=== PATIENT | female | born 1955 | race Caucasian/White ===

== ENCOUNTER 2019-09-11 11:35 | Outpatient (CLI) | payer MEDICAID, SELFPAY ==
[2019-09-11 13:03] LABS: INR 3.6 (0.9-1.1); Prothrombin Time 35.1 sec (9.3-11.0)
== END 2019-09-11 11:55 ==
PROVIDERS: PCP Family Medicine; Visit Provider Family Medicine
DX: I26.99 Other pulmonary embolism without acute cor pulmonale (principal); Z79.01 Long term (current) use of anticoagulants
CPT/HCPCS: 36415; 85610

== ENCOUNTER 2019-09-21 10:56 | Outpatient (CLI) | payer MEDICAID, SELFPAY ==
[2019-09-21 12:05] LABS: INR 1.7 (0.9-1.1); Prothrombin Time 17.1 sec (9.3-11.0)
== END 2019-09-21 11:16 ==
PROVIDERS: PCP Family Medicine; Visit Provider Family Medicine
DX: I26.99 Other pulmonary embolism without acute cor pulmonale (principal); Z79.01 Long term (current) use of anticoagulants
CPT/HCPCS: 36415; 85610

== ENCOUNTER 2019-09-28 12:50 | Outpatient (CLI) | payer MEDICAID, SELFPAY ==
[2019-09-28 14:04] LABS: INR 2.1 (0.9-1.1); Prothrombin Time 20.4 sec (9.3-11.0)
== END 2019-09-28 13:10 ==
PROVIDERS: PCP Family Medicine; Visit Provider Family Medicine
DX: I26.99 Other pulmonary embolism without acute cor pulmonale (principal); Z79.01 Long term (current) use of anticoagulants
CPT/HCPCS: 36415; 85610

== ENCOUNTER 2019-10-05 12:48 | Outpatient (CLI) | payer MEDICAID, SELFPAY ==
[2019-10-05 13:46] LABS: INR 3.6 (0.9-1.1); Prothrombin Time 34.9 sec (9.3-11.0)
== END 2019-10-05 13:08 ==
PROVIDERS: PCP Family Medicine; Visit Provider Family Medicine
DX: I26.99 Other pulmonary embolism without acute cor pulmonale (principal); Z79.01 Long term (current) use of anticoagulants
CPT/HCPCS: 36415; 85610

== ENCOUNTER 2019-10-12 11:08 | Outpatient (CLI) | payer MEDICAID, SELFPAY ==
[2019-10-12 12:17] LABS: INR 3.5 (0.9-1.1); Prothrombin Time 33.9 sec (9.3-11.0)
== END 2019-10-12 11:28 ==
PROVIDERS: PCP Family Medicine; Visit Provider Family Medicine
DX: I26.99 Other pulmonary embolism without acute cor pulmonale (principal); Z79.01 Long term (current) use of anticoagulants
CPT/HCPCS: 36415; 85610

== ENCOUNTER 2019-10-21 00:51 | Outpatient (CLI) | payer MEDICAID, SELFPAY ==
--- NOTE | 2019-10-21 12:09 | DI.RAD_ITS ---
EXAM: XR CERVICAL SPINE COMP 4-5V INDICATION: NECK PAIN M54.2. COMPARISON: No exams were available for comparison TECHNIQUE: 2D digital imaging was performed. FINDINGS: There has been previous posterior fusion at C1-[address] There is mild narrowing of the C2-3 disc space. There is moderate to severe narrowing of the C3-4 disc space and severe narrowing of the C4-5 and C5-6 disc spaces. C6-7 is unremarkable. There is some straightening of the normal c ervical lordosis secondary to degenerative changes. Mild to moderate right-sided neural foraminal na rrowing is seen from C3-4 through C6-7. Mild neural foraminal narrowing is seen on the left at C4-5. IMPRESSION: Degenerative changes, greatest at C4-5.
== END 2019-10-21 01:11 ==
PROVIDERS: PCP Family Medicine; Visit Provider Family Medicine
DX: M54.2 Cervicalgia (principal); Z98.1 Arthrodesis status; M50.321 Other cervical disc degeneration at C4-C5 level
CPT/HCPCS: 72050

== ENCOUNTER 2019-11-03 12:32 | Outpatient (CLI) | payer MEDICAID, SELFPAY ==
[2019-11-03 13:28] LABS: INR 2.6 (0.9-1.1); Prothrombin Time 25.3 sec (9.3-11.0)
== END 2019-11-03 12:52 ==
PROVIDERS: PCP Family Medicine; Visit Provider Family Medicine
DX: I26.99 Other pulmonary embolism without acute cor pulmonale (principal); Z79.01 Long term (current) use of anticoagulants
CPT/HCPCS: 36415; 85610

== ENCOUNTER 2019-11-20 12:31 | Outpatient (CLI) | payer MEDICAID, SELFPAY ==
[2019-11-20 13:25] LABS: Abs Immature Grans 0.03 k/cumm (0.0-0.09); Absolute Basophil Count 0.04 k/cumm (0.0-0.2); Absolute Eosinophil Count 0.09 k/cumm (0.0-0.7); Absolute Lymphocyte Count 1.52 k/cumm (1.2-3.4); Absolute Monocyte Count 1.04 k/cumm (0.11-0.7); Absolute Neutrophil Count 6.14 k/cumm (1.2-6.7); Basophils % 0.5; HCT 36.3 % (36.0-46.0); HGB 11.5 g/dL (12.0-15.5); Immature Grans % 0.3 %; Lymphocytes % 17.2; Mean Corp. HGB Concentration 31.7 g/dL (32.0-36.0); Mean Corpuscular Hemoglobin 32.7 pg (27.0-33.0); Mean Corpuscular Volume 103.1 fL (80-95); Mean Platelet Volume 9.2 fL (8.0-11.0); Monocytes % 11.7; Neutrophils % 69.3; Platelet Count 385 x1000/uL (130-400); RBC 3.52 m/cumm (4.00-5.20); RBC Distribution Width 13.3 % (11.7-14.6); White Blood Cell Count 8.86 k/cumm (4.4-10.8)
[2019-11-20 13:46] LABS: Prothrombin Time 19.9 sec (9.3-11.0)
[2019-11-20 13:49] LABS: Bilirubin Small (Negative); Blood Negative (Negative); Clarity Sl Cloudy (Clear); Glucose Negative (Negative); Ketones Negative (Negative); Leukocyte Esterase Trace (Negative); Nitrite Negative (Negative); Specific Gravity >= 1.030 (1.005-1.025); Urobilinogen 0.2 EU/dL (Up TO 0.2); pH 5.5 (5-8)
[2019-11-20 14:10] LABS: ALT 52 U/L (14-59); AST 32 U/L (15-37); Albumin 4.2 g/dL (3.4-5.0); Alkaline Phosphatase 113 U/L (46-116); Anion Gap 12.2 mmol/L (3-11); BUN 14 mg/dL (7-18); Bilirubin, Total 0.5 mg/dL (0.2-1.0); CO2 30.8 mmol/L (21.0-32.0); Calcium 9.5 mg/dL (8.5-10.1); Calculated LDL 235 mg/dL; Chloride 99 mmol/L (98-107); Cholesterol 343 mg/dL (<200); Estimated GFR 50.33 (mL/min/1.73m2); Glucose 83 mg/dL (74-106); HDL Cholesterol 78 mg/dL (40-60); Potassium 3.8 mmol/L (3.5-5.1); Sodium 142 mmol/L (136-145); TSH 5.38 uIU/mL (0.36-3.74); Total Protein 8.1 g/dL (6.4-8.2); Triglyceride 152 mg/dL (<150)
[2019-11-20 14:37] LABS: Epithelial Cells Few HPF (Negative); RBC Negative HPF (0-2)
[2019-11-20 14:38] LABS: Bacteria Few HPF (Negative); C & S Indicated? Yes; Casts Negative LPF (Negative); Mucus Negative (Negative); Other Cells Few Renal (Negative)
== END 2019-11-20 12:51 ==
PROVIDERS: PCP Family Medicine; Visit Provider Family Medicine
DX: E78.5 Hyperlipidemia, unspecified (principal); E03.9 Hypothyroidism, unspecified; M06.9 Rheumatoid arthritis, unspecified; I26.99 Other pulmonary embolism without acute cor pulmonale; Z79.01 Long term (current) use of anticoagulants
CPT/HCPCS: 36415; 80053; 80061; 81003; 81015; 84443; 85025; 85610; 87086

== ENCOUNTER 2019-12-02 10:59 | Outpatient (CLI) | payer MEDICAID, SELFPAY ==
[2019-12-02 11:38] LABS: INR 2.7 (0.9-1.1); Prothrombin Time 26.3 sec (9.3-11.0)
[2019-12-02 11:48] LABS: Bilirubin Negative (Negative); Blood Negative (Negative); Clarity Clear (Clear); Glucose Negative (Negative); Ketones Negative (Negative); Leukocyte Esterase Negative (Negative); Nitrite Negative (Negative); Specific Gravity >= 1.030 (1.005-1.025); Urobilinogen 0.2 EU/dL (Up TO 0.2)
[2019-12-02 12:44] LABS: Folate 18.5 ng/mL (8.6-20.0); Vitamin B12 476 pg/mL (193-986)
== END 2019-12-02 11:19 ==
PROVIDERS: PCP Family Medicine; Visit Provider Family Medicine
DX: I26.99 Other pulmonary embolism without acute cor pulmonale (principal); Z79.01 Long term (current) use of anticoagulants; N39.0 Urinary tract infection, site not specified; D75.89 Other specified diseases of blood and blood-forming organs
CPT/HCPCS: 36415; 81003; 82607; 82746; 85610

== ENCOUNTER 2019-12-16 11:48 | Outpatient (CLI) | payer MEDICAID, SELFPAY ==
[2019-12-16 12:53] LABS: INR 2.2 (0.9-1.1); Prothrombin Time 21.9 sec (9.3-11.0)
== END 2019-12-16 12:08 ==
PROVIDERS: PCP Family Medicine; Visit Provider Family Medicine
DX: I26.99 Other pulmonary embolism without acute cor pulmonale (principal); Z79.01 Long term (current) use of anticoagulants
CPT/HCPCS: 36415; 85610

== ENCOUNTER 2020-01-06 02:24 | Outpatient (CLI) | payer MEDICAID, SELFPAY ==
--- NOTE | 2020-01-06 | DI.RAD_ITS ---
EXAM: XR LUMBAR SPINE COMPLETE INDICATION: LOW BACK PAIN M54.5. COMPARISON: No exams were available for comparison TECHNIQUE: 2D digital imaging was performed. FINDINGS: There is normal alignment of the lumbar spine. No spondylolysis or spondylolisthesis is present. Th ere are endplate osteophytes seen at multiple levels of the lumbar spine. There are degenerative ryder nges of the facets seen in the lower lumbar spine. No acute fracture or subluxation is seen. IMPRESSION: [id number] degenerative changes in the lumbar spine.
[2020-01-06 10:38] LABS: INR 2.8 (0.9-1.1); Prothrombin Time 27.7 sec (9.3-11.0)
[2020-01-06 11:40] LABS: Folate 19.7 ng/mL (8.6-20.0); TSH 1.38 uIU/mL (0.36-3.74); Vitamin B12 548 pg/mL (193-986)
== END 2020-01-06 02:44 ==
PROVIDERS: PCP Family Medicine; Visit Provider Family Medicine
DX: M54.5 Low back pain (principal); M47.817 Spondylosis without myelopathy or radiculopathy, lumbosacral region; M25.78 Osteophyte, vertebrae; D75.89 Other specified diseases of blood and blood-forming organs; I26.99 Other pulmonary embolism without acute cor pulmonale
CPT/HCPCS: 36415; 72110; 82607; 82746; 84443; 85610

== ENCOUNTER 2020-02-03 02:50 | Outpatient (CLI) | payer MEDICAID, SELFPAY ==
[2020-02-03 12:02] LABS: INR 2.6 (0.9-1.1); Prothrombin Time 25.8 sec (9.3-11.0)
== END 2020-02-03 03:10 ==
PROVIDERS: PCP Family Medicine; Visit Provider Family Medicine
DX: I26.99 Other pulmonary embolism without acute cor pulmonale (principal)
CPT/HCPCS: 36415; 85610

== ENCOUNTER 2020-02-24 01:05 | Outpatient (CLI) | payer MEDICAID, SELFPAY ==
[2020-02-24 11:54] LABS: INR 2.6 (0.9-1.1); Prothrombin Time 25.6 sec (9.3-11.0)
== END 2020-02-24 01:25 ==
PROVIDERS: PCP Family Medicine; Visit Provider Family Medicine
DX: I26.99 Other pulmonary embolism without acute cor pulmonale (principal); Z79.01 Long term (current) use of anticoagulants
CPT/HCPCS: 36415; 85610

== ENCOUNTER 2020-03-25 03:11 | Outpatient (CLI) | payer MEDICAID, SELFPAY ==
[2020-03-25 11:15] LABS: INR 2.4 (0.9-1.1); Prothrombin Time 23.3 sec (9.3-11.0)
== END 2020-03-25 03:31 ==
PROVIDERS: PCP Family Medicine; Visit Provider Family Medicine
DX: I26.99 Other pulmonary embolism without acute cor pulmonale (principal); Z79.01 Long term (current) use of anticoagulants
CPT/HCPCS: 36415; 85610

== ENCOUNTER 2020-04-06 01:00 | Outpatient (CLI) | payer MEDICAID, SELFPAY ==
[2020-04-06 11:12] LABS: Prothrombin Time 31.7 sec (9.3-11.0)
[2020-04-06 11:17] LABS: INR 3.2 (0.9-1.1)
== END 2020-04-06 01:20 ==
PROVIDERS: PCP Family Medicine; Visit Provider Family Medicine
DX: I26.99 Other pulmonary embolism without acute cor pulmonale (principal); Z79.01 Long term (current) use of anticoagulants
CPT/HCPCS: 36415; 85610

== ENCOUNTER 2020-04-18 01:39 | Outpatient (CLI) | payer MEDICAID, SELFPAY ==
--- NOTE | 2020-04-18 11:25 | DI.MAMMO_ITS ---
EXAM: MG MAMMO SCREENING CLINICAL HISTORY: SCREENING, Z12.31 TECHNIQUE: Mammograms were interpreted according to the usual protocol including computer analysis w [employer] CAD system, tomosynthesis and C-view imaging. COMPARISON: FINDINGS: The breasts are heterogeneously dense. No dominant mass or clumped microcalcification is identified in either breast. Current examination is compared with previous examinations including February 2019 an d there has been no gross interval change in appearance comparison the previous studies. IMPRESSION: No specific evidence of malignancy at this time. Routine screening examinations are suggested at yea rly intervals due to the family history of breast carcinoma. BI-RADS Cat 1 - Negative: Breast Density - Category C - Heterogeneously dense:
== END 2020-04-18 01:59 ==
PROVIDERS: PCP Family Medicine; Visit Provider Family Medicine
DX: Z12.31 Encounter for screening mammogram for malignant neoplasm of breast (principal); Z80.3 Family history of malignant neoplasm of breast
CPT/HCPCS: 77063; 77067

== ENCOUNTER 2020-04-18 03:03 | Outpatient (CLI) | payer MEDICAID, SELFPAY ==
[2020-04-18 11:59] LABS: INR 2.9 (0.9-1.1); Prothrombin Time 28.1 sec (9.3-11.0)
[2020-04-18 15:12] LABS: *AMPHETAMINES SCREEN URINE Negative (Negative); *BARBITURATES SCREEN URINE Negative (Negative); *BENZODIAZEPINES SCREEN URINE Negative (Negative); Cannabinoids THC Negative (Negative); Cocaine Screen,Urine Negative (Negative); METHADONE URINE SCREEN POSITIVE (Negative); OPIATES URINE SCREEN Negative (Negative)
[2020-04-18 15:14] LABS: Tricyclic Antidepressants POSITIVE (Negative)
== END 2020-04-18 03:23 ==
PROVIDERS: PCP Family Medicine; Visit Provider Family Medicine
DX: I26.99 Other pulmonary embolism without acute cor pulmonale (principal); Z79.01 Long term (current) use of anticoagulants; Z79.891 Long term (current) use of opiate analgesic; M25.519 Pain in unspecified shoulder
CPT/HCPCS: 36415; 80307; 85610

== ENCOUNTER 2020-05-11 08:39 | Emergency (ER) | payer MEDICAID, SELFPAY ==
[2020-05-11] VITALS (21 sets, daily range): BP systolic 126–164; BP diastolic 64–85; PULSE 69–120; RESP 10–20; TEMP 36.6–36.9; O2SAT 95–100
--- NOTE | 2020-05-11 08:51 | DI.CT_ITS ---
EXAM: CT HEAD CERV SPINE FACIAL WO CLINICAL HISTORY: fall, head strike, on blood thinners TECHNIQUE: COMPARISON: No exams were available for comparison FINDINGS: Noncontrast cranial CT was performed. There is an apparent large extracranial hematoma over the righ t frontoparietal region.. There is no calvarial fracture. There is no evidence of acute intracrania l hemorrhage, mass effect, midline shift. Temporal bone structures appear intact. Visualized [place] sinuses and mastoid air cells appear clear. No orbital abnormality seen. CT examination cervical spine was performed lies in multi slice acquisition and multiplanar reconstru ction. There is fixation at the C1-2 level posteriorly and there is a fused odontoid with C1 which a ppears chronic. There is no evidence of acute fracture or dislocation. Significant cervical spine d egenerative changes are noted particularly in the mid cervical region. Tracheolaryngeal structures a ppear intact. No gross cervical mass or adenopathy seen. CT examination of the facial region was also performed utilizing noncontrast multi slice acquisition and multiplanar reconstruction. No facial fracture identified. Mandible appears intact. Orbital st ructures appear intact. IMPRESSION: No evidence of acute intracranial injury. No evidence of acute cervical spine fracture or dislocation. No evidence of acute facial fracture.
--- NOTE | 2020-05-11 09:15 | DI.RAD_ITS ---
EXAM: XR HAND LT COMPLETE CLINICAL HISTORY: pain,fall TECHNIQUE: COMPARISON: No exams were available for comparison FINDINGS: Three views were obtained. There are severe degenerative changes of the carpus. There is subluxatio n of the proximal phalanges at the MCP joints presumably chronic. There is no evidence of acute frac ture. IMPRESSION:
--- NOTE | 2020-05-11 09:15 | DI.RAD_ITS ---
EXAM: XR CLAVICLE RT CLINICAL HISTORY: pain, fall TECHNIQUE: COMPARISON: No exams were available for comparison FINDINGS: Two views were obtained. There is humeral head prosthesis in position with superior subluxation the humeral which abuts the acromion. There are degenerative changes of the AC joint. No clavicular fra cture is seen. IMPRESSION:
--- NOTE | 2020-05-11 09:22 | W.ED.GENAD ---
Discharge Plan Disposition Patient Disposition: HOME Condition: Stable Discharge Details Chief Complaint: HeadInjury Clinical Impression: Head injury, Abrasion of face, Contusion of multiple sites Primary Care Provider: Curt Cassidy ED Provider: Lisa Han Home Meds and New Rx's Prescriptions: Continued cyclobenzaprine 10 MG tablet 10 mg PO TID PRN PRNRF: 0 doxepin 50 MG capsule 50 mg PO DIRECTED PRNRF: 0 atorvastatin [Lipitor] 20 MG tablet 20 mg PO QPM RF: 0 methadone 10 MG tablet 20 mg PO HS RF: 0 prednisone 5 MG tablet 7.5 mg PO DAILY RF: 0 leflunomide [Arava] 20 MG tablet 20 mg PO DAILY RF: 0 calcium carbonate [Tums Ultra] 400 MG tablet,chewable 800 mg PO TID RF: 0 diphenhydramine HCl 25 MG capsule 25 mg PO Q4H PRN PRNRF: 0 warfarin 5 MG tablet 5 - 10 mg PO DIRECTED RF: 0 gabapentin 300 MG capsule 600 mg PO TID RF: 0 ergocalciferol (vitamin D2) [Vitamin D2] 50,000 UNITS capsule 50,000 units PO DIRECTED RF: 0 levothyroxine [Synthroid] 112 MCG tablet 175 mcg PO DAILY RF: 0 risedronate [Actonel] 35 MG tablet 35 mg PO DIRECTED RF: 0 multivitamin Tablet 1 tab PO DAILY RF: 0 ipratropium-albuterol 0.5 mg-3 mg(2.5 mg base)/3 mL Solution For Nebulization 3 ml INHALATION Q4H PRNRF: 0 amlodipine 2.5 mg Tablet 2.5 mg PO DAILY RF: 0 acyclovir 800 mg Tablet 800 mg PO DAILY RF: 0 bumetanide 0.5 mg Tablet 0.5 mg PO DAILY RF: 0 docusate sodium [Colace] 100 mg Capsule 200 mg PO DAILY RF: 0 Lactobacillus acidophilus Capsule 1,000 mmu cells PO DAILY RF: 0 albuterol sulfate [ProAir HFA] 90 mcg/actuation Hfa Aerosol Inhaler 2 puff INHALATION 6XD RF: 0 losartan 100 mg Tablet 100 mg PO DAILY RF: 0 Saccharomyces boulardii [Florastor] 250 mg Capsule 250 mg PO BID RF: 0 budesonide-formoterol [Symbicort] 160-4.5 mcg/actuation Hfa Aerosol Inhaler 1 puff INHALATION BID RF: 0 naloxone 4 mg/actuation Sheridan,Non-Aerosol 4 mg INTRANASAL Q2-3M PRNRF: 0 multivit with min-folic acid 400 mcg Tablet Extended Release 1 mcg PO RF: 0 Discharge Instructions Instructions: Head Injury (ED), Contusion in Adults (ED) Additional Instructions: Rest activities as tolerated. Please use your walker at home for at least 1 week as you do have a head injury and I would like you to be as stable as possible when ambulating. Ice to your scalp and cheek for swelling. Consider ice to your shoulder and left hand if needed for swelling Follow-up with your primary care doctor within 1 week for reevaluation after your fall. Your INR today is 2.8. That is normal when taking Coumadin. Return for any worsening, concerns or alarming symptoms sooner if needed Discharge Data Discharge Date/Time-TO BE ENTERED AT DEPARTURE: 05/11/20 13:20 Medical Decision Making Very pleasant 64-year-old patient presenting to the emergency room for complaints of fall this morning x2. Patient reports fall after going to the bathroom. Please see HPI for remainder of patient's history. Patient reports she was conscious during both episodes of fall. Denies any loss of consciousness. Patient does describe striking her head twice once when leaning forward off the toilet to reach toilet paper in the second time when attempting to stand using assistance of a step. Patient did strike her right scalp as well as the right cheek. Both areas are tender. Patient does describe a headache at this time. Patient is on Coumadin has not had an INR checked recently. Patient does also describe a mild off-balance sensation when walking however is able to ambulate without difficulty. Patient has an intact neurologic exam at this time. Obvious identified areas of trauma to the right scalp and the right cheek. Patient is complaining of neck pain and does have a history of cervical fusion. We will plan to CT patient's head facial bones and cervical spine. Cervical collar is now in place. Patient's physical exam otherwise is benign. She does have evidence of bruising and tenderness to the right clavicle and left hand focally however has no focal weakness. Patient speech is clear. She is fully oriented to person place and time. We will plan to check INR as patient has not had her labs checked recently. Offered Tylenol. Patient consents to this plan of care Patient CT is unremarkable for identified intracranial emergency. No cervical spine fracture. No facial bone fractures. Patient cervical collar was cleared. Patient had no significant change from her baseline when reevaluating patient's range of motion. Patient denies any paresthesia of arms or legs. No increase in neck pain or change in mental status since arrival to the emergency room. Patient's wound was cleaned and evaluated and abrasion is present without deep laceration requiring sutures. Discussed wound care There was a delay in patient's labs. Patient's INR noted to be 2.8. Patient made aware of this result. Plan of care for discharge home. Trial of ambulation, patient ambulating steadily and without difficulty without assistance. Patient feels stable and is requesting discharge home at this time. Discussed management of patient's symptoms. Expectations of possible head injury. Use of ice recommended for scalp hematoma and right cheek swelling. Patient agrees with this plan of care. Discussed follow-up with PCP which was recommended within 1 week for reevaluation. Patient feels comfortable with this plan of care. The patient was stable and requested discharge. Prior to discharge, my usual and customary return precautions were reviewed with the patient - this included follow-up instructions and reasons to return to the Emergency Department if conditions worsens, does not improve as expected, or other new concerns arise. HPI General Date/Time Provider Initiated Documentation: 05/11/20 08:50. HPI Narrative: This is a 64-year-old patient who takes daily Coumadin presenting to the emergency room after a fall this morning. Patient reports she awoke early to let her cat out of her bedroom and she went to the toilet. Patient reports she fell asleep on the toilet as it was early in the morning, she reports she will typically do this and this is not abnormal. Patient reports she awoke and realized there was no toilet paper on the toilet roll reached forward to get a new roll of toilet paper out of a cabinet which was near the toilet and she fell forward. Denies loss of consciousness. Patient does report she struck her head at that time. Patient now on the floor was trying to stand and crawled toward the tub where there is a low step in attempt to use the step to help stand off the ground and she reports that when pushing herself up she feels as if her legs were not beneath her and she had another subsequent fall. This time patient struck her head and right face against the step in the bathroom. Patient again denies loss of consciousness. Patient does report a moderate headache at this time which is atypical. Denies any vision change, blurred vision with double vision. Denies any tinnitus. Patient does complain of mild neck pain. Patient has no chest or back plain complaints. Patient has no difficulty breathing or shortness of breath or wheezing. Patient denies any abdominal pain or distention. No hematuria. Patient does report mild right clavicle pain and left hand pain both are notably bruised and tender. Patient has no other sites of pain or concerns. On review of systems patient does report mild unsteadiness with walking this morning however denies any weakness, numbness or tingling to extremities either upper or lower. Patient again denies any chest or abdominal complaints. No rashes. No other sites of bruising. Patient is due to have her INR checked this week. Related Data Home Medications Medication Instructions Recorded Confirmed atorvastatin [Lipitor] 20 mg PO QPM 05/01/16 05/11/20 calcium carbonate [Tums Ultra] 800 mg PO TID 05/01/16 05/11/20 cyclobenzaprine 10 mg PO TID PRN PRN 05/01/16 05/11/20 diphenhydramine HCl 25 mg PO Q4H PRN PRN 05/01/16 05/11/20 doxepin 50 mg PO DIRECTED PRN 05/01/16 05/11/20 ergocalciferol (vitamin D2) 50,000 units PO DIRECTED 05/01/16 05/11/20 [Vitamin D2] gabapentin 600 mg PO TID 05/01/16 05/11/20 leflunomide [Arava] 20 mg PO DAILY 05/01/16 05/11/20 levothyroxine [Synthroid] 175 mcg PO DAILY 05/01/16 05/11/20 methadone 20 mg PO HS 05/01/16 05/11/20 prednisone 7.5 mg PO DAILY 05/01/16 05/11/20 risedronate [Actonel] 35 mg PO DIRECTED 05/01/16 05/11/20 warfarin 5 - 10 mg PO DIRECTED 05/01/16 05/11/20 Lactobacillus acidophilus 1,000 mmu cells PO DAILY 05/11/20 05/11/20 Saccharomyces boulardii [Florastor] 250 mg PO BID 05/11/20 05/11/20 acyclovir 800 mg PO DAILY 05/11/20 05/11/20 albuterol sulfate [ProAir HFA] 2 puff INHALATION 6XD 05/11/20 05/11/20 amlodipine 2.5 mg PO DAILY 05/11/20 05/11/20 budesonide-formoterol [Symbicort] 1 puff INHALATION BID 05/11/20 05/11/20 bumetanide 0.5 mg PO DAILY 05/11/20 05/11/20 docusate sodium [Colace] 200 mg PO DAILY 05/11/20 05/11/20 ipratropium-albuterol 3 ml INHALATION Q4H PRN 05/11/20 05/11/20 losartan 100 mg PO DAILY 05/11/20 05/11/20 multivit with min-folic acid 1 mcg PO 05/11/20 multivitamin 1 tab PO DAILY 05/11/20 05/11/20 naloxone 4 mg INTRANASAL Q2-3M PRN 05/11/20 05/11/20 Allergies Allergy/AdvReac Type Severity Reaction Status Date / Time bupropion HCl Allergy Unverified 05/11/20 10:36 [From Wellbutrin] infliximab [From Remicade] Allergy Unverified 05/11/20 10:36 Iodinated Contrast Media Allergy Unverified 05/11/20 10:36 morphine sulfate Allergy Unverified 05/11/20 10:36 [From MS Contin] rituximab [From Rituxan] Allergy Unverified 05/11/20 10:36 Sulfa (Sulfonamide Allergy Unverified 05/11/20 10:36 Antibiotics) sulfisoxazole Allergy Unverified 05/11/20 10:36 vancomycin Allergy Unverified 05/11/20 10:36 General Stated Complaint: HeadInjury JENNY: 3 Review of Systems All systems reviewed & are unremarkable except as noted in HPI and below Constitutional Constitutional: Denies chills and Denies fever(s) PFSH Social History Smoking/Tobacco Use Status: Never Alcohol Intake: never Drug use: Never Substance use type: does not use Do you feel safe at home: Yes Do you feel safe in your relationship?: Yes Exam Narrative Exam Narrative: CONST: Healthy appearing patient, in no acute distress. Well hydrated. Alert and oriented x 3. HENMT: Head nomocephalic, normal to inspection. Atraumatic. Hearing grossly normal. External ear canal no erythema or swelling. TM normal bilaterally. Nose normal to inspection. No rhinnorhea. Normal facial exam. Oral mucosa normal. Tounge normal. Dentition normal. Normal posterior oropharynx. Uvula midline. EYES: General normal appearance. Alignment normal. Eyelids normal. Conjunctiva normal. Sclera normal. PERRL. Pupils are noted to be somewhat constricted as she does take chronic pain medication however they are reactive. Extraocular movements intact. No obvious nystagmus NECK: Normal visual inspection. FROM. No lymphadenopathy. Trachea midline. No Midline tenderness. Cervical collar in place CHEST: Normal insepection of the chest. RESP: Normal respiratory effort. Speaking full sentences. No cough. No wheezing. No retractions. Clear to auscaltation. Breath sound equal and present bilaterally. CARDIO: No JVD. Normal PMI. Regular Rate. Regular Rhythm. Normal peripheral pulses. GI: Normal inspection of abdomen. No distension. Soft. Nontender. Bowel sounds present in all 4 quadrants. No rebound. No gaurding. MUSCULOSKELETAL: Chronic deformities noted to multiple joints. Limited right arm range of motion and limited left hand range of motion, multiple surgical scars noted overlying joints. Unable to fully range right arm overhead. Patient does have notable tenderness to the right clavicle with no significant pain with palpation to the remainder of the right arm. Left arm reveals maintained overhead range of motion however notable bruising noted to the third and fourth MCP joints of the left hand. Again surgical scars are present in this area however patient has intact flexion and extension which she reports is her baseline some tendon abnormalities which are chronic in the left hand. Lower extremities strength is intact and equal bilaterally. Straight leg raise intact bilaterally. Hip internal/external rotation normal bilaterally. No knee pain, [place] pain or calf pain with palpation. No foot pain with palpation. Strength equal in all extremities. Distal neurovascularly intact. Sensation intact distally. SKIN: Normal. Dry. No rashes. Abrasion noted to the posterior left trunk with small abrasion. No palpable tenderness at the site beneath the left axilla NEURO: Alert and awake. Speech clear. Alert and oriented x 3. Speech is clear. Cranial nerves intact as tested III - XI. No Nystagmus. Gait normal. Strength intact in all extremities. Sensation intact in all extremities. PSYCH: Normal affect. Cooperative. Course Vital Signs Vital signs: Vital Signs Temperature 36.9 C 05/11/20 08:44 Pulse 120 H 05/11/20 08:44 Blood Pressure 156/72 H 05/11/20 08:44 Pulse Oximetry 97 05/11/20 08:44 Temperature 36.9 C 05/11/20 08:44 Temperature Source Oral 05/11/20 08:44 Pulse 120 H 05/11/20 08:44 Blood Pressure 156/72 H 05/11/20 08:44 Blood Pressure Position Sitting 05/11/20 08:44 Pulse Oximetry 97 05/11/20 08:44 Oxygen Delivery Method Room Air 05/11/20 08:44 Oxygen Flow Rate 0 05/11/20 08:44 Pain Level 8 05/11/20 08:44
[2020-05-11] MEDS: Acetaminophen 500 MG TAB 1000 MG PO (09:36)
[2020-05-11 09:47] LABS: Abs Immature Grans 0.02 k/cumm (0.0-0.09); Absolute Basophil Count 0.02 k/cumm (0.0-0.2); Absolute Eosinophil Count 0.09 k/cumm (0.0-0.7); Absolute Lymphocyte Count 1.17 k/cumm (1.2-3.4); Absolute Monocyte Count 1.28 k/cumm (0.11-0.7); Absolute Neutrophil Count 7.41 k/cumm (1.2-6.7); Basophils % 0.2; Eosinophils % 0.9; HCT 33.8 % (36.0-46.0); HGB 10.9 g/dL (12.0-15.5); Immature Grans % 0.2 %; Lymphocytes % 11.7; Mean Corp. HGB Concentration 32.2 g/dL (32.0-36.0); Mean Corpuscular Hemoglobin 32.6 pg (27.0-33.0); Mean Corpuscular Volume 101.2 fL (80-95); Mean Platelet Volume 9.2 fL (8.0-11.0); Monocytes % 12.8; Neutrophils % 74.2; Platelet Count 321 x1000/uL (130-400); RBC 3.34 m/cumm (4.00-5.20); RBC Distribution Width 12.4 % (11.7-14.6); White Blood Cell Count 9.99 k/cumm (4.4-10.8)
[2020-05-11 09:57] LABS: Prothrombin Time 27.9 sec (9.3-11.0)
[2020-05-11 10:01] LABS: INR 2.8 (0.9-1.1)
[2020-05-11 10:09] LABS: ALT 46 U/L (14-59); AST 26 U/L (15-37); Albumin 3.9 g/dL (3.4-5.0); Alkaline Phosphatase 85 U/L (46-116); Anion Gap 7.2 mmol/L (3-11); BUN 15 mg/dL (7-18); Bilirubin, Total 0.4 mg/dL (0.2-1.0); CO2 30.8 mmol/L (21.0-32.0); CREATININE 1.03 mg/dL (0.55-1.02); Calcium 9.1 mg/dL (8.5-10.1); Chloride 100 mmol/L (98-107); Glucose 90 mg/dL (74-106); Potassium 3.9 mmol/L (3.5-5.1); Sodium 138 mmol/L (136-145); Total Protein 7.5 g/dL (6.4-8.2)
== END 2020-05-11 13:20 | disposition home or self-care (01) ==
PROVIDERS: Emergency Provider Physician Assistant; PCP Family Medicine
DX: S09.90XA Unspecified injury of head, initial encounter (principal); S00.81XA Abrasion of other part of head, initial encounter; W19.XXXA Unspecified fall, initial encounter; W22.09XA Striking against other stationary object, initial encounter; R07.89 Other chest pain; S60.222A Contusion of left hand, initial encounter; M54.2 Cervicalgia; Z79.01 Long term (current) use of anticoagulants
CPT/HCPCS: 36415; 80053; 99284; 70450; 70486; 72125; 73000; 73130; 85025; 85610; L0172

== ENCOUNTER 2020-05-17 11:16 | Emergency (ER) | payer MEDICAID, SELFPAY ==
[2020-05-17 11:20] VITALS: BP 147/92; PULSE 109; RESP 20; TEMP 36.9; O2SAT 95
--- NOTE | 2020-05-17 11:49 | ED.GENADUL_ITS ---
Discharge Plan Disposition Patient Disposition: HOME Condition: Stable Discharge Details Chief Complaint: Orthopedic Clinical Impression: Knee pain, Cephalgia, Subarachnoid hemorrhage Primary Care Provider: Curt Cassidy ED Provider: Wes West Home Meds and New Rx's Prescriptions: Continued cyclobenzaprine 10 MG tablet 10 mg PO TID PRN PRNRF: 0 doxepin 50 MG capsule 50 mg PO DIRECTED PRNRF: 0 atorvastatin [Lipitor] 20 MG tablet 20 mg PO QPM RF: 0 methadone 10 MG tablet 20 mg PO HS RF: 0 prednisone 5 MG tablet 7.5 mg PO DAILY RF: 0 leflunomide [Arava] 20 MG tablet 20 mg PO DAILY RF: 0 calcium carbonate [Tums Ultra] 400 MG tablet,chewable 800 mg PO TID RF: 0 diphenhydramine HCl 25 MG capsule 25 mg PO Q4H PRN PRNRF: 0 warfarin 5 MG tablet 5 - 10 mg PO DIRECTED RF: 0 gabapentin 300 MG capsule 600 mg PO TID RF: 0 ergocalciferol (vitamin D2) [Vitamin D2] 50,000 UNITS capsule 50,000 units PO DIRECTED RF: 0 levothyroxine [Synthroid] 112 MCG tablet 175 mcg PO DAILY RF: 0 risedronate [Actonel] 35 MG tablet 35 mg PO DIRECTED RF: 0 multivitamin Tablet 1 tab PO DAILY RF: 0 ipratropium-albuterol 0.5 mg-3 mg(2.5 mg base)/3 mL Solution For Nebulization 3 ml INHALATION Q4H PRNRF: 0 amlodipine 2.5 mg Tablet 2.5 mg PO DAILY RF: 0 acyclovir 800 mg Tablet 800 mg PO DAILY RF: 0 bumetanide 0.5 mg Tablet 0.5 mg PO DAILY RF: 0 docusate sodium [Colace] 100 mg Capsule 200 mg PO DAILY RF: 0 Lactobacillus acidophilus Capsule 1,000 mmu cells PO DAILY RF: 0 albuterol sulfate [ProAir HFA] 90 mcg/actuation Hfa Aerosol Inhaler 2 puff INHALATION 6XD RF: 0 losartan 100 mg Tablet 100 mg PO DAILY RF: 0 Saccharomyces boulardii [Florastor] 250 mg Capsule 250 mg PO BID RF: 0 budesonide-formoterol [Symbicort] 160-4.5 mcg/actuation Hfa Aerosol Inhaler 1 puff INHALATION BID RF: 0 naloxone 4 mg/actuation [place],Non-Aerosol 4 mg INTRANASAL Q2-3M PRNRF: 0 Discharge Instructions Instructions: Fall Prevention for Older Adults (ED), Subarachnoid Hemorrhage (DC), Knee Pain (ED), General Headache (ED) Additional Instructions: At this time your knee x-ray is unremarkable but your head CT does reveal a small subarachnoid hemorrhage that likely occurred with your fall 6 days ago. I personally spoke with Dr. Ayala, neurosurgery at [facility]. Her office number is [phone]. The plan is to discontinue your Coumadin starting today, you will be seen as an outpatient in their office in 2 weeks, had a repeat head CT, and if unremarkable likely started back on your Coumadin. If you do not receive a phone call from their office in the next day or 2 please reach out to their office with a number that I have supplied. In the meantime please watch for new or worsening symptoms and return to the ER for any concerns. I have also reached out and personally spoken with your primary care provider who is aware of your ER visit, subarachnoid hemorrhage, and discontinuing of your Coumadin. Reach out to his office tomorrow for prompt outpatient reevaluation. Discharge Data Discharge Date/Time-TO BE ENTERED AT DEPARTURE: 05/17/20 16:05 Medical Decision Making <ANGELICA Weinberg - Last Filed: 05/17/20 15:58> 64-year-old female presents for right knee pain status post fall 6 days ago. She appears well, nontoxic and is neurologically intact. She has ecchymosis to the right side of her face and forehead from her previous fall. Knee has a large area of ecchymosis but he has full range of motion, neuro, vascular, tendon intact. Will obtain x-ray of the right knee. Will obtain INR for comparison of 6 days ago. Case discussed with Dr. Delgado who evaluated patient himself. He does recommend adding on a head CT given her anticoagulation and persistent mild headache status post trauma. X-ray read by radiology as no acute fracture, unremarkable. Discussed findings with patient. She is relieved. Given her age, fall risk, she was given CDC fall precautions as well as having care management consultation. Patient is homebound and would likely benefit from social work evaluation and home health. Head CT read by radiology as negative, nothing acute. Discussed findings with patient. Patient is relieved and comfortable discharge. We discussed treatment options. She already has a cane here and a walker at home. She does not think that she requires any additional treatment. I will refer her to orthopedics. Prior to discharge I was called by radiology once again and after comparing the CT from today versus 6 days ago the question whether or not there is a small right frontal subarachnoid versus a meningioma with punctate calcifications. Given this, I reached out to neurosurgery at [facility]. I pushed the images and they were able to evaluate them themselves. I spoke with neurosurgeon, Dr. Ayala who believed that there was a small subarachnoid hemorrhage however that there was nothing that would stop the patient from being discharged home. The plan will be to discontinue her Coumadin for 2 weeks and they will follow her at [facility] as an outpatient in the office for a repeat head CT. Patient was made aware of these findings but I have also reached out to her primary care provider to be sure that everyone is on the same page prior to discharge. I was able to speak with Dr. Cassidy, and made him aware of the situation. 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 He understands that the neurosurgery recommendation was to hold the Coumadin for 2 weeks, follow-up as an outpatient and have a repeat CT. If CT is unremarkable they will restart anticoagulation therapy then. Dr. Cassidy is comfortable with this plan and has no additional questions or concerns. He 2 will follow the patient as an outpatient. I discussed the plan and my multiple conversations with radiology, neurosurgery, primary care with patient. She understands the plan and has no additional questions or concerns. Medical Records Medical records reviewed: Yes I reviewed the patient's medical records. Lab Data Lab results reviewed: Yes I reviewed the patient's lab results. Lab results narrative: Laboratory Tests Range/Units 05/17/20 11:35 PT (9.3-11.0) sec 21.9 H INR (0.9-1.1) 2.2 H Labs: INR was 2.86 days ago <Yoni Delgado MD - Last Filed: 05/21/20 12:30> -- Patient seen, examined, and discussed with ANGELICA West. Right knee x-ray interpreted by radiology: No fracture. Plan for CT of the head to assess for some acute life-threatening intracranial hemorrhage given persistent headache post trauma. --CT the head shows small subarachnoid hemorrhage that was present on prior CT and remains unchanged. ANGELICA West spoke with neurosurgery who reviewed head CTs and provided recommendations for ongoing care. I agree with treatment plan as discussed/documented. Patient will require home health services. Health nurses coming out for assessment. Discharge instructions to be provided on fall prevention. HPI <ANGELICA Weinberg - Last Filed: 05/17/20 15:58> General Mode of arrival: wheelchair . Date/Time Provider Initiated Documentation: 05/17/20 11:27 . Limitations to Documentation: no limitations . Information obtained by: patient . HPI Narrative: 64-year-old female who was actually seen in the ER 6 days ago for a fall, presents today for worsening knee discomfort since the fall. Initially she was concerned about her face and head at the time of her ER visit 1 week ago and did not really notice how much her knee was bothering her. She reports the pain is moderate in nature, worse with bending. She reports history of knee replacement back in 2000 in [facility]. She does ambulate with a walker. She reports that since the fall she has had anterior and lateral discomfort associated with increasing bruising. Denies pain in her calf, chest pain, shortness of breath. Denies numbness, tingling, weakness. Related Data Home Medications Medication Instructions Recorded Confirmed atorvastatin [Lipitor] 20 mg PO QPM 05/01/16 05/17/20 calcium carbonate [Tums Ultra] 800 mg PO TID 05/01/16 05/17/20 cyclobenzaprine 10 mg PO TID PRN PRN 05/01/16 05/17/20 diphenhydramine HCl 25 mg PO Q4H PRN PRN 05/01/16 05/17/20 doxepin 50 mg PO DIRECTED PRN 05/01/16 05/17/20 ergocalciferol (vitamin D2) 50,000 units PO DIRECTED 05/01/16 05/17/20 [Vitamin D2] gabapentin 600 mg PO TID 05/01/16 05/17/20 leflunomide [Arava] 20 mg PO DAILY 05/01/16 05/17/20 levothyroxine [Synthroid] 175 mcg PO DAILY 05/01/16 05/17/20 methadone 20 mg PO HS 05/01/16 05/17/20 prednisone 7.5 mg PO DAILY 05/01/16 05/17/20 risedronate [Actonel] 35 mg PO DIRECTED 05/01/16 05/17/20 warfarin 5 - 10 mg PO DIRECTED 05/01/16 05/17/20 Lactobacillus acidophilus 1,000 mmu cells PO DAILY 05/11/20 05/17/20 Saccharomyces boulardii [Florastor] 250 mg PO BID 05/11/20 05/17/20 acyclovir 800 mg PO DAILY 05/11/20 05/17/20 albuterol sulfate [ProAir HFA] 2 puff INHALATION 6XD 05/11/20 05/17/20 amlodipine 2.5 mg PO DAILY 05/11/20 05/17/20 budesonide-formoterol [Symbicort] 1 puff INHALATION BID 05/11/20 05/17/20 bumetanide 0.5 mg PO DAILY 05/11/20 05/17/20 docusate sodium [Colace] 200 mg PO DAILY 05/11/20 05/17/20 ipratropium-albuterol 3 ml INHALATION Q4H PRN 05/11/20 05/17/20 losartan 100 mg PO DAILY 05/11/20 05/17/20 multivitamin 1 tab PO DAILY 05/11/20 05/17/20 naloxone 4 mg INTRANASAL Q2-3M PRN 05/11/20 05/17/20 Allergies Allergy/AdvReac Type Severity Reaction Status Date / Time bupropion HCl Allergy Unverified 05/17/20 11:24 [From Wellbutrin] infliximab [From Remicade] Allergy Unverified 05/17/20 11:24 Iodinated Contrast Media Allergy Unverified 05/17/20 11:24 morphine sulfate Allergy Unverified 05/17/20 11:24 [From MS Contin] rituximab [From Rituxan] Allergy Unverified 05/17/20 11:24 Sulfa (Sulfonamide Allergy Unverified 05/17/20 11:24 Antibiotics) sulfisoxazole Allergy Unverified 05/17/20 11:24 vancomycin Allergy Unverified 05/17/20 11:24 General Stated Complaint: Orthopedic JENNY: 3 Review of Systems <ANGELICA Weinberg - Last Filed: 05/17/20 15:58> Constitutional Constitutional: Reports headache(s) (Mild persistent since the fall) and Denies weakness Eyes Eyes: Denies change in vision ENT Ears, Nose, Mouth, and Throat: Reports headache(s) (Mild persistent since the fall) Cardiovascular Cardiovascular: Denies chest pain and Denies dyspnea Respiratory Respiratory: Denies dyspnea Musculoskeletal Musculoskeletal: Reports arthralgias, Denies numbness and Denies tingling Integumentary/Breasts Skin/Breast: Denies rash Neurologic Neurologic: Reports headache(s) (Mild persistent since the fall), Denies numbness, Denies tingling and Denies weakness Hematologic/Lymphatic Hematologic/Lymphatic: Reports easy bleeding and Reports easy bruising PFSH <ANGELICA Weinberg - Last Filed: 05/17/20 15:58> Social History Smoking/Tobacco Use Status: Never Alcohol Intake: never Drug use: Never Substance use type: does not use Do you feel safe at home: Yes Do you feel safe in your relationship?: Yes Exam <ANGELICA Weinberg - Last Filed: 05/17/20 15:58> Const General: cooperative, healthy appearing, comfortable and no acute distress Orientation: alert, awake and oriented x3 HENMT Head: normocephalic and hematoma right frontal Mouth: moist mucous membranes Eyes Conjunctivae: conjunctivae normal Sclera: sclerae normal Neck Neck: normal visual inspection, full ROM, trachea midline, supple and nontender Resp Effort & Inspection: normal respiratory effort and able to speak in complete sentences Auscultation: clear to auscultation bilaterally Cardio Rate: regular rate Rhythm: regular rhythm Skin General skin exam: no rashes or lesions noted Neuro General: patient alert, patient awake, patient oriented x3, moves all extremities and no focal motor deficits Cranial Nerves: CN's II-XI intact bilaterally Cognition: normal cognition Speech: speech normal Gait: antalgic (With cane) Motor: muscle tone normal throughout and strength 5/5 throughout Sensory Exam: no sensory deficits noted Extrem Left lower extremity: full ROM, normal capillary refill, hip/thigh Details: ecchymosis (Lateral distal upper leg), knee Details: tenderness (Anterior and lateral aspect), normal ROM, knee ligament exam normal and ecchymosis (Lateral and anterior aspect) and lower leg Details: ecchymosis (Lateral superior lower leg) Psych Appearance: grossly normal Mental Status: mental status grossly normal Course <ANGELICA Weinberg - Last Filed: 05/17/20 15:58> Vital Signs Vital signs: Vital Signs Temperature 36.9 C 05/17/20 11:20 Pulse 109 H 05/17/20 11:20 Respiratory Rate 20 05/17/20 11:20 Blood Pressure 147/92 H 05/17/20 11:20 Pulse Oximetry 95 05/17/20 11:20 Temperature 36.9 C 05/17/20 11:20 Temperature Source Skin 05/17/20 11:20 Pulse 109 H 05/17/20 11:20 Respiratory Rate 20 05/17/20 11:20 Respiratory Effort Non-Labored 05/17/20 11:23 Blood Pressure 147/92 H 05/17/20 11:20 Blood Pressure Position Sitting 05/17/20 11:20 Pulse Oximetry 95 05/17/20 11:20 Oxygen Delivery Method Nasal Cannula 05/17/20 11:20 Oxygen Flow Rate 2 05/17/20 11:20 Pain Level 7 05/17/20 11:20
[2020-05-17 12:02] LABS: INR 2.2 (0.9-1.1); Prothrombin Time 21.9 sec (9.3-11.0)
--- NOTE | 2020-05-17 12:05 | DI.RAD_ITS ---
EXAM: XR KNEE RT 4V+ CLINICAL HISTORY: Fall last week, worsening pain and bruising. TECHNIQUE: 2D digital imaging was performed. COMPARISON: No exams were available for comparison FINDINGS: There is a right total knee arthroplasty. The orthopedic hardware appears in good position. The bon es are intact. No acute fracture or dislocation is seen. The soft tissues are unremarkable. IMPRESSION: No acute abnormality. DATA REPOSITORY: RADIATION DOSE DELIVERED:
--- NOTE | 2020-05-17 13:04 | CMPROGNOTE_ITS ---
- If Service Date Differs Date of service: 05/17/20 Time of Service: 13:04 Care Management Progress Note S/O: Marla lives alone in a first floor apartment in [facility]. She currently is receiving services through [facility]. She ambulates with a cane. Marla states she takes most of her medication at nighttime and this seems to be the time of day when she falls. She wonders if some of her medication may be contributing to her falling and plans on speaking with her primary care physician about either changing some of the medication or changing the time at which she takes some of them. CM offers to make a referral to [facility] PT for the fall reduction therapy program and [employer] to assist with community resources and Marla is agreeable to this referral. A: Marla is a 64 year old female who comes to the ED today for worsening right knee discomfort subsequent to a fall 6 days ago. P: SUNDAY coordinates a referral to [facility] for PT and [employer].
--- NOTE | 2020-05-17 13:25 | DI.CT_ITS ---
EXAM: CT HEAD WO CLINICAL HISTORY: Fall last week, anticoagulated, persistent headach. TECHNIQUE: Imaging Protocol: Axial computed tomography images with coronal and sagittal reformatted images were created and reviewed COMPARISON: CT CT HEAD CERV SPINE FACIAL WO from 05/11/2020 FINDINGS: Ventricles and Extra axial spaces: Normal in size and morphology for the patient's age. There is agai n seen a dense round lesion beneath the right frontal bone in the extra-axial space. This is unchang ed compared to the examination from 05/11/2020. Hemorrhage: None. Cerebral parenchyma: Normal. Midline shift: None. Brainstem/Cerebellum: Normal. Calvarium: Normal. Visualized Paranasal sinuses/Mastoids: Clear. Soft Tissues: There is a subcutaneous hematoma overlying the right frontal bone. IMPRESSION: 1. Small subcutaneous hematoma overlying the right frontal bone. 2. No definite skull fracture. 3. Small dense extra-axial focus beneath the right frontal bone. This was present on the prior exami nation. This may represent a small meningioma or a resolving small subdural hematoma. 4. No acute intracranial hemorrhage is identified at this time. RADIATION DOSE DELIVERED: Total DLP DATA REPOSITORY: All CT scans at this facility are submitted to the National Radiology Data Registry (NRDR) Dose Index Registry (DIR) with the [employer] ([employer]). RADIATION OPTIMIZATION: All CT scans at this facility use at least one of these dose optimization te chniques: automated exposure control; mA and/or kV adjustment per patient size (includes targeted exa ms where dose is matched to clinical indication); or iterative reconstruction.
[2020-05-17 13:31] VITALS: BP 147/74; PULSE 89; RESP 18; O2SAT 100
[2020-05-17 14:44] VITALS: BP 135/68; PULSE 89; RESP 16; TEMP 36.7; O2SAT 100
[2020-05-17 15:35] VITALS: BP 155/75; PULSE 99; RESP 16; TEMP 36.7; O2SAT 99
== END 2020-05-17 16:05 | disposition home or self-care (01) ==
PROVIDERS: Emergency Provider Physician Assistant; PCP Family Medicine
DX: S06.6X0A Traumatic subarachnoid hemorrhage without loss of consciousness, initial encounter (principal); S80.01XA Contusion of right knee, initial encounter; W18.12XA Fall from or off toilet with subsequent striking against object, initial encounter; G44.319 Acute post-traumatic headache, not intractable; Z96.651 Presence of right artificial knee joint; Z86.718 Personal history of other venous thrombosis and embolism; Z79.01 Long term (current) use of anticoagulants; I10 Essential (primary) hypertension
CPT/HCPCS: 36415; 99284; 70450; 73564; 85610

== ENCOUNTER 2020-06-13 02:26 | Outpatient (CLI) | payer MEDICAID, SELFPAY ==
[2020-06-13 12:19] LABS: INR 2.9 (0.9-1.1); Prothrombin Time 28.2 sec (9.3-11.0)
== END 2020-06-13 02:46 ==
PROVIDERS: PCP Family Medicine; Visit Provider Family Medicine
DX: I26.99 Other pulmonary embolism without acute cor pulmonale (principal)
CPT/HCPCS: 36415; 85610

== ENCOUNTER 2020-06-27 02:25 | Outpatient (CLI) | payer MEDICAID, SELFPAY ==
[2020-06-27 11:53] LABS: INR 3.2 (0.9-1.1); Prothrombin Time 30.9 sec (9.3-11.0)
== END 2020-06-27 02:45 ==
PROVIDERS: PCP Family Medicine; Visit Provider Family Medicine
DX: I26.99 Other pulmonary embolism without acute cor pulmonale (principal)
CPT/HCPCS: 36415; 85610

== ENCOUNTER 2020-07-11 02:14 | Outpatient (CLI) | payer MEDICAID, SELFPAY ==
[2020-07-11 11:31] LABS: INR 3.4 (0.9-1.1); Prothrombin Time 32.7 sec (9.3-11.0)
== END 2020-07-11 02:34 ==
PROVIDERS: PCP Family Medicine; Visit Provider Family Medicine
DX: I26.99 Other pulmonary embolism without acute cor pulmonale (principal)
CPT/HCPCS: 36415; 85610

== ENCOUNTER 2020-07-22 03:47 | Outpatient (CLI) | payer MEDICAID, SELFPAY ==
[2020-07-22 10:20] LABS: Abs Immature Grans 0.04 10^3/uL (0.0-0.06); Absolute Basophil Count 0.04 10^3/uL (0.0-0.2); Absolute Eosinophil Count 0.12 10^3/uL (0.0-0.7); Absolute Lymphocyte Count 1.24 10^3/uL (1.2-3.4); Absolute Monocyte Count 0.84 10^3/uL (0.1-0.8); Absolute Neutrophil Count 5.62 10^3/uL (1.2-6.7); Basophils % 0.5; Eosinophils % 1.5; HCT 34.3 % (36.0-46.0); HGB 10.8 g/dL (11.2-15.7); Immature Grans % 0.5; Lymphocytes % 15.7; MCH 31.8 pg (27.0-33.0); MCHC 31.5 % (32.0-36.0); MCV 100.9 fL (80-95); MPV 9.1 fL (8.0-11.0); Monocytes % 10.6; Neutrophils % 71.2; Nucleated RBC 0 %; Platelet Count 342 10^3/uL (130-400); RDW 13.2 % (11.7-14.6)
[2020-07-22 10:22] LABS: Bilirubin Negative (Negative); Blood Negative (Negative); Clarity Clear (Clear); Glucose Negative (Negative); Ketones Negative (Negative); Leukocyte Esterase Negative (Negative); Nitrite Negative (Negative); Specific Gravity >= 1.030 (1.005-1.025); Urobilinogen 0.2 EU/dL (Up TO 0.2); pH 5.5 (5-8)
[2020-07-22 10:51] LABS: *AMPHETAMINES SCREEN URINE Negative (Negative); *BARBITURATES SCREEN URINE Negative (Negative); *BENZODIAZEPINES SCREEN URINE Negative (Negative); Cannabinoids THC Negative (Negative); Cocaine Screen,Urine Negative (Negative); METHADONE URINE SCREEN POSITIVE (Negative); OPIATES URINE SCREEN Negative (Negative); Tricyclic Antidepressants POSITIVE (Negative)
[2020-07-22 11:22] LABS: ALT 48 U/L (14-59); AST 28 U/L (15-37); Albumin 3.6 g/dL (3.4-5.0); Alkaline Phosphatase 110 U/L (46-116); Anion Gap 8.8 mmol/L (3-11); BUN 10 mg/dL (7-18); Bilirubin, Total 0.3 mg/dL (0.2-1.0); CO2 30.2 mmol/L (21.0-32.0); CREATININE 1.02 mg/dL (0.55-1.02); Chloride 100 mmol/L (98-107); Estimated GFR 54.91 (mL/min/1.73m2); Glucose 116 mg/dL (74-106); Potassium 3.7 mmol/L (3.5-5.1); Sodium 139 mmol/L (136-145); TSH 0.16 uIU/mL (0.36-3.74)
== END 2020-07-22 04:07 ==
PROVIDERS: PCP Family Medicine; Visit Provider Family Medicine
DX: M06.9 Rheumatoid arthritis, unspecified (principal); E03.9 Hypothyroidism, unspecified; I10 Essential (primary) hypertension
CPT/HCPCS: 36415; 80053; 80307; 81003; 84443; 85025

== ENCOUNTER 2020-08-08 02:19 | Outpatient (CLI) | payer MEDICAID, SELFPAY ==
[2020-08-08 11:37] LABS: INR 2.1 (0.9-1.1); Prothrombin Time 20.6 sec (9.3-11.0)
== END 2020-08-08 02:39 ==
PROVIDERS: PCP Family Medicine; Visit Provider Family Medicine
DX: I26.99 Other pulmonary embolism without acute cor pulmonale (principal); Z79.01 Long term (current) use of anticoagulants
CPT/HCPCS: 36415; 85610

== ENCOUNTER 2020-08-19 04:23 | Outpatient (CLI) | payer MEDICAID, SELFPAY ==
[2020-08-19 11:43] LABS: INR 1.8 (0.9-1.1); Prothrombin Time 17.9 sec (9.3-11.0)
== END 2020-08-19 04:43 ==
PROVIDERS: PCP Family Medicine; Visit Provider Family Medicine
DX: I26.99 Other pulmonary embolism without acute cor pulmonale (principal); Z79.01 Long term (current) use of anticoagulants
CPT/HCPCS: 36415; 85610

== ENCOUNTER 2020-09-05 03:33 | Outpatient (CLI) | payer MEDICAID, SELFPAY ==
[2020-09-05 11:10] LABS: Abs Immature Grans 0.04 10^3/uL (0.0-0.06); Absolute Basophil Count 0.04 10^3/uL (0.0-0.2); Absolute Eosinophil Count 0.14 10^3/uL (0.0-0.7); Basophils % 0.5; Eosinophils % 1.8; HCT 33.8 % (36.0-46.0); HGB 10.8 g/dL (11.2-15.7); Immature Grans % 0.5; Lymphocytes % 14.1; MCH 32.3 pg (27.0-33.0); MCV 101.2 fL (80-95); MPV 9.2 fL (8.0-11.0); Monocytes % 12.8; Neutrophils % 70.3; Nucleated RBC 0 %; Platelet Count 300 10^3/uL (130-400); RBC 3.34 10^6/uL (3.93-5.22); RDW 13.6 % (11.7-14.6); RDW-SD 50.7 fL; WBC 7.82 10^3/uL (4.4-10.8)
[2020-09-05 11:26] LABS: INR 3.2 (0.9-1.1); Prothrombin Time 31.2 sec (9.3-11.0)
[2020-09-05 12:17] LABS: ALT 41 U/L (14-59); AST 20 U/L (15-37); Albumin 3.9 g/dL (3.4-5.0); Alkaline Phosphatase 108 U/L (46-116); Anion Gap 5.5 mmol/L (3-11); BUN 12 mg/dL (7-18); Bilirubin, Total 0.4 mg/dL (0.2-1.0); CO2 34.5 mmol/L (21.0-32.0); CREATININE 0.97 mg/dL (0.55-1.02); Calcium 9.2 mg/dL (8.5-10.1); Chloride 100 mmol/L (98-107); Estimated GFR 58.19 (mL/min/1.73m2); Glucose 95 mg/dL (74-106); Potassium 3.7 mmol/L (3.5-5.1); Sodium 140 mmol/L (136-145); Total Protein 7.5 g/dL (6.4-8.2)
[2020-09-05 12:38] LABS: TSH 0.12 uIU/mL (0.36-3.74)
== END 2020-09-05 03:53 ==
PROVIDERS: PCP Family Medicine; Visit Provider Family Medicine
DX: I10 Essential (primary) hypertension (principal); E03.9 Hypothyroidism, unspecified; M06.9 Rheumatoid arthritis, unspecified; I26.99 Other pulmonary embolism without acute cor pulmonale; Z79.01 Long term (current) use of anticoagulants
CPT/HCPCS: 36415; 80053; 84443; 85025; 85610

== ENCOUNTER 2020-09-19 03:10 | Outpatient (CLI) | payer MEDICAID, SELFPAY ==
[2020-09-20 09:04] LABS: INR 3.7 (0.9-1.1); Prothrombin Time 36.3 sec (9.3-11.0)
== END 2020-09-19 03:30 ==
PROVIDERS: PCP Family Medicine; Visit Provider Family Medicine
DX: I26.99 Other pulmonary embolism without acute cor pulmonale (principal)
CPT/HCPCS: 36415; 84443; 85610

== ENCOUNTER 2020-10-03 02:32 | Outpatient (CLI) | payer MEDICAID, SELFPAY ==
[2020-10-03 12:14] LABS: INR 3.3 (0.9-1.1); Prothrombin Time 32.4 sec (9.3-11.0)
[2020-10-03 12:45] LABS: TSH 0.44 uIU/mL (0.36-3.74)
== END 2020-10-03 02:52 ==
PROVIDERS: PCP Family Medicine; Visit Provider Family Medicine
DX: E03.9 Hypothyroidism, unspecified (principal); I26.99 Other pulmonary embolism without acute cor pulmonale; Z79.01 Long term (current) use of anticoagulants
CPT/HCPCS: 36415; 84443; 85610

== ENCOUNTER 2020-10-12 02:38 | Outpatient (CLI) | payer MEDICAID, SELFPAY ==
[2020-10-12 10:46] LABS: INR 2.6 (0.9-1.1); Prothrombin Time 25.5 sec (9.3-11.0)
== END 2020-10-12 02:58 ==
PROVIDERS: PCP Family Medicine; Visit Provider Family Medicine
DX: I26.99 Other pulmonary embolism without acute cor pulmonale (principal); Z79.01 Long term (current) use of anticoagulants
CPT/HCPCS: 36415; 85610

== ENCOUNTER 2020-10-24 02:57 | Outpatient (CLI) | payer MEDICAID, SELFPAY ==
[2020-10-24 09:49] LABS: Prothrombin Time 33.6 sec (9.3-11.0)
[2020-10-24 10:01] LABS: INR 3.4 (0.9-1.1)
[2020-10-24 10:51] LABS: *AMPHETAMINES SCREEN URINE Negative (Negative); *BARBITURATES SCREEN URINE Negative (Negative); *BENZODIAZEPINES SCREEN URINE Negative (Negative); Cannabinoids THC Negative (Negative); Cocaine Screen,Urine Negative (Negative); METHADONE URINE SCREEN POSITIVE (Negative); OPIATES URINE SCREEN Negative (Negative)
[2020-10-24 10:52] LABS: Tricyclic Antidepressants POSITIVE (Negative)
== END 2020-10-24 03:17 ==
PROVIDERS: PCP Family Medicine; Visit Provider Family Medicine
DX: G89.29 Other chronic pain (principal); Z79.891 Long term (current) use of opiate analgesic; I26.99 Other pulmonary embolism without acute cor pulmonale; Z79.01 Long term (current) use of anticoagulants; M25.511 Pain in right shoulder; M25.512 Pain in left shoulder
CPT/HCPCS: 36415; 80307; 85610

== ENCOUNTER 2020-11-07 02:23 | Outpatient (CLI) | payer MEDICAID, SELFPAY ==
[2020-11-07 10:06] LABS: INR 3.4 (0.9-1.1); Prothrombin Time 32.7 sec (9.3-11.0)
== END 2020-11-07 02:43 ==
PROVIDERS: PCP Family Medicine; Visit Provider Family Medicine
DX: I26.99 Other pulmonary embolism without acute cor pulmonale (principal); Z79.01 Long term (current) use of anticoagulants
CPT/HCPCS: 36415; 85610

== ENCOUNTER 2020-11-23 05:04 | Outpatient (CLI) | payer MEDICAID, SELFPAY ==
[2020-11-23 10:39] LABS: Prothrombin Time 21.2 sec (9.3-11.0)
[2020-11-23 10:42] LABS: INR 2.1 (0.9-1.1)
== END 2020-11-23 05:24 ==
PROVIDERS: PCP Family Medicine; Visit Provider Family Medicine
DX: I26.99 Other pulmonary embolism without acute cor pulmonale (principal); Z79.01 Long term (current) use of anticoagulants
CPT/HCPCS: 36415; 85610

== ENCOUNTER 2020-12-05 02:48 | Outpatient (CLI) | payer MEDICAID, SELFPAY ==
[2020-12-05 11:44] LABS: INR 1.9 (0.9-1.1); Prothrombin Time 19.1 sec (9.3-11.0)
== END 2020-12-05 03:08 ==
PROVIDERS: PCP Family Medicine; Visit Provider Family Medicine
DX: I26.99 Other pulmonary embolism without acute cor pulmonale (principal); Z79.01 Long term (current) use of anticoagulants
CPT/HCPCS: 36415; 85610

== ENCOUNTER 2020-12-19 04:31 | Outpatient (CLI) | payer MEDICAID, SELFPAY ==
[2020-12-19 11:13] LABS: INR 1.5 (0.9-1.1); Prothrombin Time 14.8 sec (9.3-11.0)
== END 2020-12-19 04:51 ==
PROVIDERS: PCP Family Medicine; Visit Provider Family Medicine
DX: I26.99 Other pulmonary embolism without acute cor pulmonale (principal); Z79.01 Long term (current) use of anticoagulants
CPT/HCPCS: 36415; 85610

== ENCOUNTER 2021-01-13 15:46 | Outpatient (REF) | payer MEDICAID, SELFPAY ==
[2021-01-13 11:48] LABS: *AMPHETAMINES SCREEN URINE Negative (Negative); *BARBITURATES SCREEN URINE Negative (Negative); *BENZODIAZEPINES SCREEN URINE Negative (Negative); Cannabinoids THC Negative (Negative); Cocaine Screen,Urine Negative (Negative); METHADONE URINE SCREEN POSITIVE (Negative); OPIATES URINE SCREEN Negative (Negative); Tricyclic Antidepressants POSITIVE (Negative)
== END 2021-01-13 15:47 | disposition home or self-care (01) ==
LOC: LBN 15:46
PROVIDERS: PCP Family Medicine; Visit Provider Family Medicine
DX: M25.511 Pain in right shoulder (principal); M54.2 Cervicalgia; G89.29 Other chronic pain; Z79.891 Long term (current) use of opiate analgesic
CPT/HCPCS: 80307

== ENCOUNTER 2021-01-23 04:20 | Outpatient (CLI) | payer MEDICAID, SELFPAY ==
[2021-01-23 12:53] LABS: Abs Immature Grans 0.04 10^3/uL (0.0-0.06); Absolute Basophil Count 0.09 10^3/uL (0.0-0.2); Absolute Eosinophil Count 0.24 10^3/uL (0.0-0.7); Absolute Lymphocyte Count 1.23 10^3/uL (1.2-3.4); Absolute Monocyte Count 1.06 10^3/uL (0.1-0.8); Absolute Neutrophil Count 6.22 10^3/uL (1.2-6.7); Eosinophils % 2.7; HCT 34.8 % (36.0-46.0); HGB 11.1 g/dL (11.2-15.7); Immature Grans % 0.5; Lymphocytes % 13.9; MCH 32.5 pg (27.0-33.0); MCHC 31.9 % (32.0-36.0); MCV 101.8 fL (80-95); MPV 9.5 fL (8.0-11.0); Monocytes % 11.9; Nucleated RBC 0 %; Platelet Count 301 10^3/uL (130-400); RBC 3.42 10^6/uL (3.93-5.22); RDW 13.2 % (11.7-14.6); RDW-SD 49.7 fL; WBC 8.88 10^3/uL (4.4-10.8)
[2021-01-23 14:00] LABS: ALT 68 U/L (14-59); AST 37 U/L (15-37); Alkaline Phosphatase 102 U/L (46-116); Anion Gap 7.1 mmol/L (3-11); BUN 14 mg/dL (7-18); Bilirubin, Total 0.4 mg/dL (0.2-1.0); CO2 31.9 mmol/L (21.0-32.0); Calcium 9.5 mg/dL (8.5-10.1); Calculated LDL 179 mg/dL (<100); Chloride 100 mmol/L (98-107); Cholesterol 308 mg/dL (<200); Glucose 96 mg/dL (74-106); HDL Cholesterol 68 mg/dL (40-60); Potassium 3.6 mmol/L (3.5-5.1); Sodium 139 mmol/L (136-145); TSH 62.32 uIU/mL (0.36-3.74); Total Protein 7.6 g/dL (6.4-8.2); Triglyceride 306 mg/dL (<150)
== END 2021-01-23 04:21 | disposition home or self-care (01) ==
LOC: LBO 04:20
PROVIDERS: PCP Family Medicine; Visit Provider Family Medicine
DX: E03.9 Hypothyroidism, unspecified (principal); I60.9 Nontraumatic subarachnoid hemorrhage, unspecified; I26.99 Other pulmonary embolism without acute cor pulmonale; M06.9 Rheumatoid arthritis, unspecified
CPT/HCPCS: 36415; 80053; 80061; 84443; 85025

== ENCOUNTER 2021-03-14 14:32 | Inpatient (IN) | payer MEDICAID, SELFPAY ==
[2021-03-14] VITALS (38 sets, daily range): BP systolic 144–176; BP diastolic 68–110; PULSE 92–116; RESP 14–21; TEMP 37–37.2; O2SAT 94–100
--- NOTE | 2021-03-14 14:30 | RT.EKG_ITS ---
APPROVED REPORT Exam: Resting ECG Patient Location: E HR:111 bpm ECG Measurements Heart Rate 111 AXIS NC 149 P 76 QRSd 102 QRS -1 QT 322 T 33 QTc 438 Conclusion Sinus tachycardia Probable left atrial enlargement Left ventricular hypertrophy. Anterior q waves, old, similar to 05/11/20
[2021-03-14] MEDS: Normal Saline Flush 10 ML SYR IVP (14:45)
--- NOTE | 2021-03-14 15:06 | ED.GENADUL_ITS ---
Discharge Plan Disposition Patient Disposition: [facility] INPATIENT Condition: Serious Discharge Details Clinical Impression: Dilated bile duct, Abdominal pain, Pulmonary nodule Primary Care Provider: Curt Cassidy ED Provider: Yoni Delgado Home Meds and New Rx's Prescriptions: No Action cyclobenzaprine 10 MG tablet 10 mg PO TID PRN PRNRF: 0 doxepin 50 MG capsule 50 mg PO DIRECTED PRNRF: 0 methadone 10 MG tablet 20 mg PO HS RF: 0 prednisone 5 MG tablet 7.5 mg PO DAILY RF: 0 leflunomide [Arava] 20 MG tablet 20 mg PO DAILY RF: 0 calcium carbonate [Tums Ultra] 400 MG tablet,chewable 800 mg PO TID RF: 0 diphenhydramine HCl 25 MG capsule 25 mg PO Q4H PRN PRNRF: 0 gabapentin 300 MG capsule 600 mg PO TID RF: 0 ergocalciferol (vitamin D2) [Vitamin D2] 50,000 UNITS capsule 50,000 units PO DIRECTED RF: 0 levothyroxine [Synthroid] 112 MCG tablet 175 mcg PO DAILY RF: 0 risedronate [Actonel] 35 MG tablet 35 mg PO DIRECTED RF: 0 Eliquis 5 mg tablet 5 mg PO BID RF: 0 multivitamin Tablet 1 tab PO DAILY RF: 0 ipratropium-albuterol 0.5 mg-3 mg(2.5 mg base)/3 mL Solution For Nebulization 3 ml INHALATION Q4H PRNRF: 0 amlodipine 2.5 mg Tablet 2.5 mg PO DAILY RF: 0 acyclovir 800 mg Tablet 800 mg PO DAILY RF: 0 bumetanide 0.5 mg Tablet 0.5 mg PO DAILY RF: 0 docusate sodium [Colace] 100 mg Capsule 200 mg PO DAILY RF: 0 Lactobacillus acidophilus Capsule 1,000 mmu cells PO DAILY RF: 0 albuterol sulfate [ProAir HFA] 90 mcg/actuation Hfa Aerosol Inhaler 2 puff INHALATION 6XD RF: 0 losartan 100 mg Tablet 100 mg PO DAILY RF: 0 naloxone 4 mg/actuation Pierron,Non-Aerosol 4 mg INTRANASAL Q2-3M PRNRF: 0 Medical Decision Making <Zaki Larose MD - Last Filed: 03/14/21 15:21> This is a 65-year-old female who states that she has had intermittent episodes of epigastric burning sensation, predominantly brought on by eating over months time. Was questionably related to medications and she recently changed antihypertensives with no change to her discomfort. Today after eating chicken she developed burning epigastric pain that radiates to the left side and back. Associated with nausea but no vomiting. No chest pain or shortness of breath, denies diaphoresis. EMS was called and patient transported to the ER. She arrives afebrile, slightly tachycardic, and demonstrates epigastric tenderness on palpation during exam. 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 Today, differential diagnosis includes gallstones, pancreatitis, gastritis. Patient states that she previously had a mild reaction to IVP dye, but has tolerated moderate contrast dye for CT scans without difficulty. IV access established, made fluids initiated, patient given PPI and Mylanta. Labs, and screening EKG, CT of the abdomen ordered. Patient to be signed out to Dr. Delgado at change of shift pending diagnostic studies <Yoni Delgado MD - Last Filed: 03/14/21 18:12> 1545 -- Care signed out by Dr. Larose with plan to follow-up on CT imaging and labs and reassess patient for disposition. 1757 --labs reviewed, ketones present on urinalysis. LFTs are normal, lipase is normal. No leukocytosis. CT of the abdomen pelvis was interpreted by radiology: Moderate intra and extrahepatic biliary ductal dilatation of unclear etiology. Correlation with bili levels is recommended. 7 mm nonspecific nodule in the right lung base. Patient is at low risk recommend CT chest in 3 to 6 months, for patients at high risk recommend CT chest at 3 to 6 months and then follow-up CT chest as indicated in report. No other acute abdominopelvic pathology is otherwise appreciated. There are some incidental findings noted in report. Patient was reassessed and notes that Pepcid IV initially improved her pain but that now pain is returning. She is quite afraid if she were to eat anything her pain would come back and be severe. She has had 500ml fluid bolus here and remai ns tachycardic. Plan will be to continue IV fluids and pain medication and pursued further diagnostics including likely MRCP. I called and spoke with on- call general surgeon Dr. Umana, discussed ED presentation and course, she will admit the patient for further diagnostics and treatment. Second ECG was reviewed and interpreted by me: Sinus tachycardia 102 bpm, probable left atrial enlargement, old anterior infarct possible as noted by software interpretation. No acute changes. HPI <Zaki Larose MD - Last Filed: 03/14/21 15:21> General Mode of arrival: EMS . Date/Time Provider Initiated Documentation: 03/14/21 14:44 . Limitations to Documentation: no limitations . Information obtained by: patient and EMS . History of Present Illness 65 year old F presents to the emergency department with the chief complaint of Epigastric pain for months, described as moderate, Quality is described as burning and dull, and is localized to the abdomen. Patient reports radiation to back. Patient started experiencing this month(s) and it has been intermittent. Rest improves symptom(s), Eating worsens symptoms . Patient notes denies chest pain, fever/chills, nausea/vomiting and shortness of breath. Patient did receive the following treatments prior to arrival, none Related Data Home Medications Medication Instructions Recorded Confirmed calcium carbonate [Tums Ultra] 800 mg PO TID 05/01/16 03/14/21 cyclobenzaprine 10 mg PO TID PRN PRN 05/01/16 03/14/21 diphenhydramine HCl 25 mg PO Q4H PRN PRN 05/01/16 03/14/21 doxepin 50 mg PO DIRECTED PRN 05/01/16 03/14/21 ergocalciferol (vitamin D2) 50,000 units PO DIRECTED 05/01/16 03/14/21 [Vitamin D2] gabapentin 600 mg PO TID 05/01/16 03/14/21 leflunomide [Arava] 20 mg PO DAILY 05/01/16 03/14/21 levothyroxine [Synthroid] 175 mcg PO DAILY 05/01/16 03/14/21 methadone 20 mg PO HS 05/01/16 03/14/21 prednisone 7.5 mg PO DAILY 05/01/16 03/14/21 risedronate [Actonel] 35 mg PO DIRECTED 05/01/16 03/14/21 Lactobacillus acidophilus 1,000 mmu cells PO DAILY 05/11/20 03/14/21 acyclovir 800 mg PO DAILY 05/11/20 03/14/21 albuterol sulfate [ProAir HFA] 2 puff INHALATION 6XD 05/11/20 03/14/21 amlodipine 2.5 mg PO DAILY 05/11/20 03/14/21 bumetanide 0.5 mg PO DAILY 05/11/20 03/14/21 docusate sodium [Colace] 200 mg PO DAILY 05/11/20 03/14/21 ipratropium-albuterol 3 ml INHALATION Q4H PRN 05/11/20 03/14/21 losartan 100 mg PO DAILY 05/11/20 03/14/21 multivitamin 1 tab PO DAILY 05/11/20 03/14/21 naloxone 4 mg INTRANASAL Q2-3M PRN 05/11/20 03/14/21 apixaban [Eliquis] 5 mg PO BID 03/14/21 03/14/21 Allergies Allergy/AdvReac Type Severity Reaction Status Date / Time bupropion HCl Allergy Unverified 03/14/21 14:51 [From Wellbutrin] infliximab [From Remicade] Allergy Unverified 03/14/21 14:51 Iodinated Contrast Media Allergy Unverified 03/14/21 14:51 morphine sulfate Allergy Unverified 03/14/21 14:51 [From MS Contin] rituximab [From Rituxan] Allergy Unverified 03/14/21 14:51 Sulfa (Sulfonamide Allergy Unverified 03/14/21 14:51 Antibiotics) sulfisoxazole Allergy Unverified 03/14/21 14:51 vancomycin Allergy Unverified 03/14/21 14:51 General Stated Complaint: Abd Prob JENNY: 2 Review of Systems <Zaki Larose MD - Last Filed: 03/14/21 15:21> Narrative: Denies fall or injury. States she has tolerated contrast dye including for pulmonary emboli imaging. No recent illness. No vomiting. No change to bowel movements. She does have intermittent constipation. 8 systems reviewed and otherwise negative PFSH <Zaki Larose MD - Last Filed: 03/14/21 15:21> Medical History (Updated 03/14/21 @ 18:10 by Yoni Delgado MD) Hypertension Social History Smoking/Tobacco Use Status: Never Smoking risk assessment performed?: Yes Alcohol Intake: never Drug use: Never Substance use type: does not use Do you feel safe at home: Yes Do you feel safe in your relationship?: Yes Exam <Zaki Larose MD - Last Filed: 03/14/21 15:21> Narrative Exam Narrative: GEN: awake, alert, oriented 3. Pleasant, well groomed, interactive. HEAD: Normocephalic, atraumatic ENT: Mucous membranes moist, oropharynx unremarkable, External ear exam unremarkable EYES: PERRL, EOMI NECK: Full ROM, no TETE, no menigismus CHEST/RESP: Nontender, clear to auscultation bilateral, no wheeze/rhonchi/rales CARDIOVASCULAR: RRR, no murmur, rub zully. 2+ Rad pulse bilateral ABDOMEN: Soft, epigastric tenderness to palpation, no mass. +Bowel sounds EXT: Full ROM, no edema, no rash Neuro: Grossly normal neurologic exam, conversant, interactive. Psych: Speech fluent, thoughts congruent, affect normal Course <Zaki Larose MD - Last Filed: 03/14/21 15:21> Vital Signs Vital signs: Vital Signs Temperature 37.0 C 03/14/21 14:45 Pulse 114 H 03/14/21 14:45 Respiratory Rate 18 03/14/21 14:45 Blood Pressure 176/82 H 03/14/21 14:45 Pulse Oximetry 96 03/14/21 14:45 Temperature 37.0 C 03/14/21 14:45 Temperature Source Skin 03/14/21 14:45 Pulse 114 H 03/14/21 14:45 Respiratory Rate 18 03/14/21 14:45 Respiratory Effort Non-Labored 03/14/21 14:52 Blood Pressure 176/82 H 03/14/21 14:45 Blood Pressure Position Supine 03/14/21 14:45 Pulse Oximetry 96 03/14/21 14:45 Oxygen Delivery Method Nasal Cannula 03/14/21 14:45 Oxygen Flow Rate 2 03/14/21 14:45 Pain Level 6 03/14/21 14:52 Sign Out <Zaki Larose MD - Last Filed: 03/14/21 15:21> Sign Out Data: Sign Out Comment: Epigastric pain, followup labs, imaging Last updated by Zaki Larose MD at 03/14/21 15:10
[2021-03-14 15:15] LABS: Abs Immature Grans 0.02 10^3/uL (0.0-0.06); Absolute Basophil Count 0.06 10^3/uL (0.0-0.2); Absolute Eosinophil Count 0.15 10^3/uL (0.0-0.7); Absolute Lymphocyte Count 1.32 10^3/uL (1.2-3.4); Absolute Monocyte Count 1.05 10^3/uL (0.1-0.8); Absolute Neutrophil Count 5.41 10^3/uL (1.2-6.7); Basophils % 0.7; Eosinophils % 1.9; HGB 11.2 g/dL (11.2-15.7); Immature Grans % 0.2; Lymphocytes % 16.5; MCH 33.2 pg (27.0-33.0); MCV 103.9 fL (80-95); MPV 9.5 fL (8.0-11.0); Monocytes % 13.1; Neutrophils % 67.6; Nucleated RBC 0 %; Platelet Count 298 10^3/uL (130-400); RBC 3.37 10^6/uL (3.93-5.22); RDW 12.4 % (11.7-14.6); RDW-SD 46.9 fL; WBC 8.01 10^3/uL (4.4-10.8)
[2021-03-14] MEDS: Normal Saline 1,000 ML 125 ML IV ×2 (15:15→22:21)
--- NOTE | 2021-03-14 15:29 | NUR.NOTE ---
Addendum entered by Paige Junior 03/14/21 18:01: Yana sister [phone] Original Note: Nursing Note: Glorysarahi Stonel daughter [phone]
[2021-03-14 15:30] LABS: ALT 47 U/L (14-59); AST 28 U/L (15-37); Albumin 3.8 g/dL (3.4-5.0); Alkaline Phosphatase 99 U/L (46-116); Anion Gap 5.5 mmol/L (3-11); BUN 10 mg/dL (7-18); Bilirubin, Total 0.5 mg/dL (0.2-1.0); CO2 32.5 mmol/L (21.0-32.0); Calcium 9.3 mg/dL (8.5-10.1); Chloride 102 mmol/L (98-107); Glucose 97 mg/dL (74-106); Magnesium 1.7 mg/dL (1.8-2.4); Potassium 3.6 mmol/L (3.5-5.1); Sodium 140 mmol/L (136-145); Total Protein 7.5 g/dL (6.4-8.2)
[2021-03-14] MEDS: Pantoprazole 40 MG VIAL IVP (15:30)
[2021-03-14] MEDS: Mylanta Suspension 30 ML CUP 20 ML PO (15:30)
[2021-03-14 15:33] LABS: Troponin I < 0.05 ng/mL (<0.06)
[2021-03-14 15:38] LABS: PTT Activated 24.5 sec (21.0-27.5)
[2021-03-14 15:39] LABS: Lipase 166 U/L (73-393)
[2021-03-14] MEDS: FAMOTIDINE 20 MG/50 ML BAG 200 MG IVPB (15:49)
[2021-03-14] MEDS: Normal Saline - Diluent 50 ML VIAL IV (16:26)
--- NOTE | 2021-03-14 16:30 | DI.CT_ITS ---
EXAM: CT ABDOMEN PELVIS W CLINICAL HISTORY: Epigastric pain, wait for CR. TECHNIQUE: Imaging Protocol: Axial computed tomography images with coronal and sagittal reformatted images were created and reviewed CONTRAST MATERIAL: Intravenous: Omnipaque 100cc Oral: None COMPARISON: No exams were available for comparison FINDINGS: VISUALIZED LUNG BASES: There is a 7 millimeter noncalcified nodule in the right lung base just above the hemidiaphragm in the lateral basal segment of the right lower lobe.. This is contiguous with the right hemidiaphragm. Will require appropriate follow-up. ABDOMEN: There is no ascites. LIVER: There are no focal hepatic lesions evident. Mild dilatation of intrahepatic ducts. GALLBLADDER/BILIARY: Gallbladder appears contracted. CBD diameter is slightly prominent. No obvious calculus in lower CBD. No pancreatic head mass evident. No obvious mass in the lower CBD-duodenal wall. PANCREAS: No evidence of pancreatic mass nor dilatation of the pancreatic duct. SPLEEN: Spleen is not enlarged. No obvious intrasplenic lesions. Splenic and portal veins are paten t. ADRENALS: There are no significant adrenal masses. KIDNEYS:There is 1.7 x 1.6 cm benign cyst in the left kidney. No solid renal masses. No calculi nor hydronephrosis.. ABDOMINAL AORTA: Abdominal aorta is not enlarged. LYMPH NODES:There is no retroperitineal nor paraaortic adenopathy. ABDOMINAL WALL/GI: No evidence of significant anterior abdominal wall hernia. No bowel obstruction. PELVIS: GI: No evidence of appendicitis.No evidence of sigmoid diverticulitis. LYMPH NODES: There is no intrapelvic nor inguinal adenopathy. REPRODUCTIVE: Uterus is surgically absent. There are no abnormal adnexal masses. URINARY BLADDER: Somewhat distended. Otherwise unremarkable. OSSEOUS: No significant osseous lesions. IMPRESSION: 1. There is a 7 millimeter noncalcified nodule in the extreme right lung contiguous with the right he midiaphragm. This requires appropriate follow-up. Recommend follow-up noninfused CT scan of the [facility]. 2. Gallbladder is contracted. There is mild dilatation of the biliary tree, both intra and extrahepa tic. No calculi in the lower CBD nor pancreatic head mass nor mass in the lower CBD to explain this. Correlation with appropriate blood work recommended. Recommend follow-up gallbladder ultrasound. 3. The uterus is surgically absent. No abnormal adnexal masses. No free fluid. 4. Urinary bladder is slightly distended. RADIATION DOSE DELIVERED: 1,340.62mGy.cm Total DLP DATA REPOSITORY: All CT scans at this facility are submitted to the National Radiology Data Registry (NRDR) Dose Index Registry (DIR) with the [employer] (ACR). RADIATION OPTIMIZATION: All CT scans at this facility use at least one of these dose optimization te chniques: automated exposure control; mA and/or kV adjustment per patient size (includes targeted exa ms where dose is matched to clinical indication); or iterative reconstruction.
[2021-03-14 17:01] LABS: Bilirubin Negative (Negative); Blood Negative (Negative); Clarity Clear (Clear); Glucose Negative (Negative); Ketones 15 mg/dL (Negative); Leukocyte Esterase Negative (Negative); Nitrite Negative (Negative); Specific Gravity 1.015 (1.005-1.025); Urobilinogen 0.2 EU/dL (Up TO 0.2)
--- NOTE | 2021-03-14 17:03 | DI.VRAD_ITS ---
PROCEDURE INFORMATION: Exam: CT Abdomen And Pelvis With Contrast Exam date and time: 03/14/2021 4:26 PM Age: 65 years old Clinical indication: Other: Epigastric pain TECHNIQUE: Imaging protocol: Computed tomography of the abdomen and pelvis with contrast. Radiation optimization: All CT scans at this facility use at least one of these dose optimization techniques: automated exposure control; mA and/or kV adjustment per patient size (includes targeted exams where dose is matched to clinical indication); or iterative reconstruction. Contrast material: VISIPAQUES 320; Contrast volume: 100 ml; Contrast route: INTRAVENOUS (IV); COMPARISON: No relevant prior studies available. FINDINGS: Lungs: 7 mm nodule in the right lung base on image 5 series 4 is nonspecific. Lung bases are otherwise clear. Mediastinal space: A small hiatal hernia is present. Liver: There is enlargement of the liver, measuring 20 cm.There is a diffuse decrease in hepatic parenchymal density, consistent with fatty infiltration. The liver is otherwise unremarkable. Gallbladder and bile ducts: The gallbladder is contracted. Mild to moderate intra and extrahepatic biliary ductal dilation. CBD measures up to 1.8 cm. No radiopaque structures are noted within the CBD. Pancreas: Normal. No ductal dilation. Spleen: Normal. No splenomegaly. Adrenal glands: Normal. No mass. Kidneys and ureters: There is a simple cyst in the left kidney measuring 2 cm. The left kidney is otherwise unremarkable. The right kidney is normal. The ureters are normal. Stomach and bowel: No bowel obstruction or significant bowel wall thickening. There is mildly excessive colonic stool content. Appendix: A normal appendix is identified. Intraperitoneal space: Unremarkable. No free air. No significant fluid collection. Vasculature: Unremarkable. No abdominal aortic aneurysm. Lymph nodes: Unremarkable. No enlarged lymph nodes. Urinary bladder: Unremarkable as visualized. Reproductive: There has been a hysterectomy. Bones/joints: No acute skeletal pathology. Mild multilevel degenerative changes of the spine, as manifested by multilevel anterior osteophytes and multilevel decrease in intervertebral disc space. Soft tissues: There is a fat-containing umbilical hernia. IMPRESSION: 1. Moderate intra and extrahepatic biliary ductal dilation, of unclear etiology. Correlation with biliary levels is recommended. 2. 7 mm nonspecific nodule in the right lung base. For patients at low risk (minimal or absent history of smoking and of other known risk factors), recommend CT Chest at 3-6 months, then consider CT Chest at 18-24 months. For patients at high risk (history of smoking or of other known risk factors), recommend CT Chest at 3-6 months, then CT Chest at 18-24 months. (Reference: Gonzalez) 3. No other acute abdominopelvic pathology is otherwise appreciated. 4. Incidental findings as detailed above. REFERENCES: Gonzalez Amos, et al. Guidelines for Management of Incidental Pulmonary Nodules Detected on CT Images: From the Fleischner Society 2017. Radiology. 2017;284(1):228-243. Dictated and Authenticated by: Musa Davis MD. Ordering:JOAQUIN Haines MD
--- NOTE | 2021-03-14 18:00 | RT.EKG_ITS ---
APPROVED REPORT Exam: Resting ECG Patient Location: E HR:102 bpm ECG Measurements Heart Rate 102 AXIS LA 154 P 77 QRSd 106 QRS 5 QT 330 T 28 QTc 430 Conclusion Sinus tachycardia...rate> 99 Probable left atrial enlargement...P >50mS, <-0.10mV V1 Anterior infarct, old...Q >40mS, abnormal ST-T, V2-V5
--- NOTE | 2021-03-14 18:19 | NUR.NOTE ---
Nursing Note: Yana thomas lives in [facility] [phone] Juan durbin is in [place] [phone]
--- NOTE | 2021-03-14 18:28 | SCONE_ITS ---
Date of service: 03/15/21 Time of Service: 08:00 Assessment and Plan Assessment and plan (1) Rheumatoid arthritis: Status: Chronic Assessment and plan: -Patient has a lifelong history of RA and chronic pain associated with this. -She has had multiple surgeries associated with the RA including: Surgery on C1 and 2. Left extensor tendon repair. Left trigger thumb. Right total shoulder. Multiple surgeries on the right knee which culminated in her right total knee. Left elbow replacement. -She has been on multiple DMARDs and other Biologics. The formulation that she has been most successful with is a combination of Arava and oral prednisone. She has been on chronic prednisone therapy for many years. (2) Chronic antibiotic suppression: Status: Acute Assessment and plan: Patient has a history of seronegative arthritis. She underwent a left elbow arthroplasty in January 2018 at an [facility]. Her postoperative course was complicated by an infected hematoma- requiring multiple operative debridements and 2 flaps. It grew out Enterobacter cloacae. Her hardware was not removed and was treated with IV Enterobacter. Infectious disease was consulted from [facility]. The last note on from ID was in 2019. They recommended lifelong suppression with Bactrim double strength twice daily. (3) Anticoagulant long-term use: Status: Acute Assessment and plan: Patient has a very extensive history of DVTs and PEs. These were thought to be due to her RA. She is been on multiple different blood thinners. I did review her notes from hematology at [facility]. They feel that she does need to be on lifelong anticoagulation. They did weigh the pros and cons of each anticoagulant and which would be the most efficacious for her. They have decided to continue her on apixaban 5 mg p.o. twice daily. If she experiences bleeding issues on this dose, consider lowering the dosage to 2.5 mg twice daily. If she is going to have a minor procedure to hold the apixaban 2 days before the procedure and resume the following day. If she is going to have a major procedure hold the apixaban 3 days before the procedure and resume in 12 to 24 hours depending on the bleeding risk. (4) Restrictive pattern present on pulmonary function testing: Status: Acute (5) Chronic restrictive lung disease: Status: Acute (6) On home oxygen therapy: Status: Acute (7) Current chronic use of systemic steroids: Status: Acute (8) Continuous RUQ abdominal pain: Status: Acute Assessment and plan: Interestingly patient's told the ER physician that her pain was relieved with a PPI and not the H2 corby. We will continue on dual coverage for both. Patient is a poor surgical candidate given her history of chronic infections. 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 she is chronically immunosuppressed w/ Arva and prednisone. She is on blood thinners due to her history of multiple DVTs and PEs. Her hemoglobin is normal. her white count is normal. her CT scan is normal Given that her CT and hemoglobin are normal, I think it is best to treat her for gastritis. She has had a longstanding history of chronic steroid use and has high probability of gastritis/ulcer disease we will go ahead and treat her medically. -I do not feel that her mildly dilated bile duct is clinically suspicious at this time. Her lipase and total bilirubin are normal. There are no masses in her pancreas. We will obtain an ultrasound to look to see if she has any gallstones. There is any sign of any gall stone disease or tumor at this time. If the ultrasound is inconclusive or her lab work should change, then we will entertain an MRCP. She has had jenn cannon replaced. -I do not feel there is any indication for antibiotics at this time. -Given the patient's history of immunosuppression and need for anticoagulation, if she should need any surgical intervention, I do feel she should be transferred to [facility]. -Patient is also a Rastafarian. . (9) Dilated bile duct: Status: Chronic (10) Abdominal pain: Status: Acute (11) Hypertension: Status: Chronic History of Present Illness Narrative: From ED: intermittent episodes of epigastric burning sensation, predominantly brought on by eating over months time. Was questionably related to medications and she recently changed antihypertensives with no change to her discomfort. Today after eating chicken she developed burning epigastric pain that radiates to the left side and sherita She received PPI and H2 corby. The H2 corby helped her pain more than the PPI did. Her chart from [facility] was reviewed. She has a very extensive past medical history. She has a very poor candidate. Her lab work and CT scan today were normal Consults Consult date: 03/15/21 Requesting physician: Yoni Delgado [facility] Medical History Anticoagulant long-term use Chronic antibiotic suppression Chronic restrictive lung disease Continuous RUQ abdominal pain Current chronic use of systemic steroids Dilated bile duct Hypertension On home oxygen therapy Pulmonary nodule Restrictive pattern present on pulmonary function testing Rheumatoid arthritis chronic suppression on Arava and prednisone Social History Smoking/Tobacco Use Status: Never Smoking risk assessment performed?: Yes Alcohol Intake: never Drug use: Never Substance use type: does not use Do you feel safe at home: Yes Do you feel safe in your relationship?: Yes Exam Narrative Exam Narrative: Will be completed in a.m. Results Last Vital Signs Temp 37.0 C 03/14/21 14:45 Pulse 107 H 03/14/21 17:00 Resp 14 03/14/21 17:10 BP 154/110 H 03/14/21 17:00 Pulse Ox 97 03/14/21 17:10 Labs Result diagrams: 03/15/21 06:26 03/15/21 06:26 Labs: Laboratory Results - last 24 hr 03/14/21 03/14/21 03/14/21 14:45 14:45 14:45 WBC 8.01 RBC 3.37 L Hgb 11.2 Hct 35.0 L MCV 103.9 H MCH 33.2 H MCHC 32.0 RDW 12.4 Plt Count 298 MPV 9.5 Immature Gran % 0.2 Neutrophils % 67.6 Lymphocytes % 16.5 Monocytes % 13.1 Eosinophils % 1.9 Basophils % 0.7 Nucleated RBC % 0 Absolute Neutrophils 5.41 Absolute Lymphocytes 1.32 Absolute Monocytes 1.05 H Absolute Eosinophils 0.15 Absolute Basophils 0.06 PT INR APTT Sodium 140 Potassium 3.6 Chloride 102 Carbon Dioxide 32.5 H Anion Gap 5.5 BUN 10 Creatinine 1.0 Estimated GFR/1.73 m2 56.00 Glucose 97 Calcium 9.3 Magnesium 1.7 L Total Bilirubin 0.5 AST 28 ALT 47 Alkaline Phosphatase 99 Troponin I < 0.05 Total Protein 7.5 Albumin 3.8 Lipase 166 Urine Color Urine Clarity Urine pH Ur Specific [place] Urine Protein Urine Ketones Urine Blood Urine Nitrite Urine Bilirubin Urine Urobilinogen Ur Leukocyte Esterase Urine Glucose 03/14/21 03/14/21 14:45 16:35 WBC RBC Hgb Hct MCV MCH MCHC RDW Plt Count MPV Immature Gran % Neutrophils % Lymphocytes % Monocytes % Eosinophils % Basophils % Nucleated RBC % Absolute Neutrophils Absolute Lymphocytes Absolute Monocytes Absolute Eosinophils Absolute Basophils PT 10.0 INR 1.0 APTT 24.5 Sodium Potassium Chloride Carbon Dioxide Anion Gap BUN Creatinine Estimated GFR/1.73 m2 Glucose Calcium Magnesium Total Bilirubin AST ALT Alkaline Phosphatase Troponin I Total Protein Albumin Lipase Urine Color Yellow Urine Clarity Clear Urine pH 7.0 Ur Specific [place] 1.015 Urine Protein Negative Urine Ketones 15 H Urine Blood Negative Urine Nitrite Negative Urine Bilirubin Negative Urine Urobilinogen 0.2 Ur Leukocyte Esterase Negative Urine Glucose Negative
[2021-03-14 18:33] LABS: Source Nasal/Nares
[2021-03-14 18:50] LABS: TSH 0.11 uIU/mL (0.36-3.74)
[2021-03-14 19:06] LABS: Troponin I < 0.05 ng/mL (<0.06)
--- NOTE | 2021-03-14 20:19 | W.PM.HP.N ---
Date of service: 03/14/21 Time of Service: 20:20 Assessment and Plan Assessment and plan (1) Abdominal pain: Start date: 03/14/21 Status: Acute Assessment and plan: This is a 65-year-old lady with significant history for rheumatoid arthritis and joint deformity who presented to the ED because of persistent epigastric burning and pain radiating into her left side and back. She had positive findings on CT of the abdomen for common bile duct and biliary tree dilatation which was mild. She also had a contracted gallbladder. She did respond to famotidine IV and was placed on famotidine and Protonix IV with her epigastric burning resolved. She will have an ultrasound of the gallbladder in the morning and surgical consultation is in place. If no significant findings on ultrasound EGD should be considered with surgery stating this should be done at [facility] Patient receives most of her care at [facility] She is a full code. Qualifiers: Abdominal location: epigastric Qualified Code(s): R10.13 - Epigastric pain (2) Dilated bile duct: Start date: 03/14/21 Status: Acute Assessment and plan: CT evaluation was abnormal but patient is not a candidate for MRCP because of multiple joint surgeries with hardware. If there is a question of gallbladder disease the patient will need transfer to [facility] [place] further surgical evaluation being medically complicated for local surgical care. Liver enzymes were not elevated and patient will have ultrasound of the gallbladder in the morning. (3) Hypertension: Status: Chronic Assessment and plan: Slightly elevated with patient to have continued outpatient medical therapy and monitoring with security monitor overnight. This may be secondary to her discomfort with tachycardia. She does not appear to have a primary cardiac problem at this time though atypical angina needs to be considered. Initial troponins were negative. Qualifiers: Hypertension type: essential hypertension Qualified Code(s): I10 - Essential (primary) hypertension (4) Rheumatoid arthritis: Status: Chronic Assessment and plan: Significant history with treatmernt for 30 years with side effects from treatment and surgeries. Present medical therapy does increase risk for gastritis and esophagitis as well as immunocompromised state. Continue usual medical regimen with monitoring. Qualifiers: Rheumatoid arthritis location: multiple sites Rheumatoid factor presence: unspecified presence Qualified Code(s): M06.9 - Rheumatoid arthritis, unspecified History of Present Illness History of Present Illness Chief Complaint: Epigastric abdominal pain with burning and radiation to into the left side Narrative: This is a 65-year-old female patient who presented to the ED with history of 3 months of chest pressure in the epigastric region which over the last 9 days has been a burning pain worsened by eating and relieved by rest and nothing by mouth. She is chronically on multiple medications for rheumatoid arthritis including prednisone but has no history of recent EGD or gastritis/esophagitis. She has associated nausea with her epigastric discomfort but no vomiting. She denies hematemesis or melena/hematochezia. She has not lost weight. She is status post 18 different surgeries for her arthritis including surgery on her left elbow with limitations of use of that elbow and chronically on Bactrim DS though she gives a history of allergies to sulfa. In the ED she was not improved with oral antacids or IV PPI but did improve after IV H2 antagonist. This time I saw the patient she was more comfortable but not attempting to eat. She was kept n.p.o. overnight for further studies including ultrasound of the gallbladder. In the ED she was found to have an abnormal CT of the abdomen with dilated biliary tree and common bile duct with a contracted gallbladder. She is not having right upper quadrant discomfort by history. Other lab evaluation did not reveal obstructive symptoms of the biliary duct system. The CT finding may be chronic and was not impressive to the surgeon in consultation. Surgery is involved in consultation to review the patient. The patient does usually ambulate with a cane but has significant deformities of her upper extremities secondary to rheumatoid arthritis. She denies any chest pain or diaphoresis and has had no change in her bowel movements. The patient was admitted for further evaluation and surgical consultation because of her imaging findings and severity of her symptoms. She was monitored on telemetry. Most of her care has been rendered at [facility] and if surgical intervention is needed including EGD she will have this at [facility] according to the regional vice president surgical sales. Review of Systems Narrative: 13 point review of systems otherwise unrevealing or stable. [facility] Medical History Hypertension Social History Smoking/Tobacco Use Status: Never Smoking risk assessment performed?: Yes Alcohol Intake: never Drug use: Never Substance use type: does not use Do you feel safe at home: Yes Do you feel safe in your relationship?: Yes Meds Allergies and Home Medications Allergies Allergy/AdvReac Type Severity Reaction Status Date / Time bupropion HCl Allergy Unverified 03/14/21 14:51 [From Wellbutrin] infliximab [From Remicade] Allergy Unverified 03/14/21 14:51 Iodinated Contrast Media Allergy Unverified 03/14/21 14:51 morphine sulfate Allergy Unverified 03/14/21 14:51 [From MS Contin] rituximab [From Rituxan] Allergy Unverified 03/14/21 14:51 Sulfa (Sulfonamide Allergy Unverified 03/14/21 14:51 Antibiotics) sulfisoxazole Allergy Unverified 03/14/21 14:51 vancomycin Allergy Unverified 03/14/21 14:51 Home Medications Medication Instructions Recorded Confirmed Type calcium carbonate [Tums Ultra] 800 mg PO TID 05/01/16 03/14/21 History cyclobenzaprine 10 mg PO TID PRN PRN 05/01/16 03/14/21 History diphenhydramine HCl 25 mg PO Q4H PRN PRN 05/01/16 03/14/21 History doxepin 50 mg PO DIRECTED PRN 05/01/16 03/14/21 History ergocalciferol (vitamin D2) 50,000 units PO DIRECTED 05/01/16 03/14/21 History [Vitamin D2] gabapentin 600 mg PO TID 05/01/16 03/14/21 History leflunomide [Arava] 20 mg PO DAILY 05/01/16 03/14/21 History levothyroxine [Synthroid] 175 mcg PO DAILY 05/01/16 03/14/21 History methadone 20 mg PO HS 05/01/16 03/14/21 History prednisone 7.5 mg PO DAILY 05/01/16 03/14/21 History risedronate [Actonel] 35 mg PO DIRECTED 05/01/16 03/14/21 History Lactobacillus acidophilus 1,000 mmu cells PO DAILY 05/11/20 03/14/21 History acyclovir 800 mg PO DAILY 05/11/20 03/14/21 History albuterol sulfate [ProAir HFA] 2 puff INHALATION 6XD 05/11/20 03/14/21 History amlodipine 2.5 mg PO DAILY 05/11/20 03/14/21 History bumetanide 0.5 mg PO DAILY 05/11/20 03/14/21 History docusate sodium [Colace] 200 mg PO DAILY 05/11/20 03/14/21 History ipratropium-albuterol 3 ml INHALATION Q4H PRN 05/11/20 03/14/21 History losartan 100 mg PO DAILY 05/11/20 03/14/21 History multivitamin 1 tab PO DAILY 05/11/20 03/14/21 History naloxone 4 mg INTRANASAL Q2-3M PRN 05/11/20 03/14/21 History apixaban [Eliquis] 5 mg PO BID 03/14/21 03/14/21 History Exam Narrative Exam Narrative: General: Patient appears older than stated age, moderately obese especially over the trunk with shortened upper extremities and severe rheumatoid arthritis changes especially over the hands and elbows. Normal affect with slightly depressed mood and alert and oriented x3. She is in no acute distress. HEENT: Normocephalic, eyes with pupils equal and reactive to light symmetrically, extraocular movement intact and sclera anicteric. Oropharynx with moist mucosa. Neck: Supple without JVD. Lungs: Fair aeration and clear to auscultation and percussion. Back: Kyphotic with no CVA tenderness. Breast: Exam deferred. Abdomen: Obese contour, soft and nontender to palpation with no palpable hepatosplenomegaly. Bowel sounds positive all quadrants. Nontender in the epigastrium and negative Wisdom sign. Genitalia/rectal: Exam deferred. Skin: Pale, warm and dry. Extremities: Marked RA deformities of hands over the MCP and IP joints with ulnar deviation and swelling, shortened upper extremities with elbows having limited range of motion as well as shoulders having limited range of motion. Left is worse than right. Lower extremities have less arthritic changes but joints do have decreased range of motion and there are well-healed scars over the anterior aspect of both knees. Peripheral pulses intact with good capillary refill. Neuro: Cranial nerves II through XII grossly intact, no focalizing motor deficits. Generalized weakness especially over upper extremity with limited range of motion with some muscle atrophy. Psych: Normal affect with slightly depressed mood and pressured speech. No abnormal thought processes. Remote and recent memory intact. Results Imaging Imaging Studies: EXAM: CT ABDOMEN PELVIS W CLINICAL HISTORY: Epigastric pain, wait for CR. TECHNIQUE: Imaging Protocol: Axial computed tomography images with coronal and sagittal reformatted images were created and reviewed CONTRAST MATERIAL: Intravenous: Omnipaque 100cc Oral: None COMPARISON: No exams were available for comparison FINDINGS: VISUALIZED LUNG BASES: There is a 7 millimeter noncalcified nodule in the right lung base just above the hemidiaphragm in the lateral basal segment of the right lower lobe.. This is contiguous with the right hemidiaphragm. Will require appropriate follow-up. ABDOMEN: There is no ascites. LIVER: There are no focal hepatic lesions evident. Mild dilatation of intrahepatic ducts. GALLBLADDER/BILIARY: Gallbladder appears contracted. CBD diameter is slightly prominent. No obvious calculus in lower CBD. No pancreatic head mass evident. No obvious mass in the lower CBD-duodenal wall. PANCREAS: No evidence of pancreatic mass nor dilatation of the pancreatic duct. SPLEEN: Spleen is not enlarged. No obvious intrasplenic lesions. Splenic and portal veins are patent. ADRENALS: There are no significant adrenal masses. KIDNEYS:There is 1.7 x 1.6 cm benign cyst in the left kidney. No solid renal masses. No calculi nor hydronephrosis.. ABDOMINAL AORTA: Abdominal aorta is not enlarged. LYMPH NODES:There is no retroperitineal nor paraaortic adenopathy. ABDOMINAL WALL/GI: No evidence of significant anterior abdominal wall hernia. No bowel obstruction. PELVIS: GI: No evidence of appendicitis. No evidence of sigmoid diverticulitis. LYMPH NODES: There is no intrapelvic nor inguinal adenopathy. REPRODUCTIVE: Uterus is surgically absent. There are no abnormal adnexal masses. URINARY BLADDER: Somewhat distended. Otherwise unremarkable. OSSEOUS: No significant osseous lesions. IMPRESSION: 1. There is a 7 millimeter noncalcified nodule in the extreme right lung contiguous with the right hemidiaphragm. This requires appropriate follow-up. Recommend follow-up noninfused CT scan of the chest. 2. Gallbladder is contracted. There is mild dilatation of the biliary tree, both intra and extrahepatic. No calculi in the lower CBD nor pancreatic head mass nor mass in the lower CBD to explain this. Correlation with appropriate blood work recommended. Recommend follow-up gallbladder ultrasound. 3. The uterus is surgically absent. No abnormal adnexal masses. No free fluid. 4. Urinary bladder is slightly distended. Labs Result diagrams: 03/15/21 06:26 03/15/21 06:26 Labs: Laboratory Results - last 24 hr 03/14/21 03/14/21 03/14/21 14:45 14:45 14:45 WBC 8.01 RBC 3.37 L Hgb 11.2 Hct 35.0 L MCV 103.9 H MCH 33.2 H MCHC 32.0 RDW 12.4 Plt Count 298 MPV 9.5 Immature Gran % 0.2 Neutrophils % 67.6 Lymphocytes % 16.5 Monocytes % 13.1 Eosinophils % 1.9 Basophils % 0.7 Nucleated RBC % 0 Absolute Neutrophils 5.41 Absolute Lymphocytes 1.32 Absolute Monocytes 1.05 H Absolute Eosinophils 0.15 Absolute Basophils 0.06 PT INR APTT Sodium 140 Potassium 3.6 Chloride 102 Carbon Dioxide 32.5 H Anion Gap 5.5 BUN 10 Creatinine 1.0 Estimated GFR/1.73 m2 56.00 Glucose 97 Calcium 9.3 Magnesium 1.7 L Total Bilirubin 0.5 AST 28 ALT 47 Alkaline Phosphatase 99 Troponin I < 0.05 Total Protein 7.5 Albumin 3.8 Lipase 166 TSH Urine Color Urine Clarity Urine pH Ur Specific [place] Urine Protein Urine Ketones Urine Blood Urine Nitrite Urine Bilirubin Urine Urobilinogen Ur Leukocyte Esterase Urine Glucose COVID-19 Source 03/14/21 03/14/21 03/14/21 14:45 14:45 16:35 WBC RBC Hgb Hct MCV MCH MCHC RDW Plt Count MPV Immature Gran % Neutrophils % Lymphocytes % Monocytes % Eosinophils % Basophils % Nucleated RBC % Absolute Neutrophils Absolute Lymphocytes Absolute Monocytes Absolute Eosinophils Absolute Basophils PT 10.0 INR 1.0 APTT 24.5 Sodium Potassium Chloride Carbon Dioxide Anion Gap BUN Creatinine Estimated GFR/1.73 m2 Glucose Calcium Magnesium Total Bilirubin AST ALT Alkaline Phosphatase Troponin I Total Protein Albumin Lipase TSH 0.11 L Urine Color Yellow Urine Clarity Clear Urine pH 7.0 Ur Specific [place] 1.015 Urine Protein Negative Urine Ketones 15 H Urine Blood Negative Urine Nitrite Negative Urine Bilirubin Negative Urine Urobilinogen 0.2 Ur Leukocyte Esterase Negative Urine Glucose Negative COVID-19 Source 03/14/21 03/14/21 18:15 18:25 WBC RBC Hgb Hct MCV MCH MCHC RDW Plt Count MPV Immature Gran % Neutrophils % Lymphocytes % Monocytes % Eosinophils % Basophils % Nucleated RBC % Absolute Neutrophils Absolute Lymphocytes Absolute Monocytes Absolute Eosinophils Absolute Basophils PT INR APTT Sodium Potassium Chloride Carbon Dioxide Anion Gap BUN Creatinine Estimated GFR/1.73 m2 Glucose Calcium Magnesium Total Bilirubin AST ALT Alkaline Phosphatase Troponin I < 0.05 Total Protein Albumin Lipase TSH Urine Color Urine Clarity Urine pH Ur Specific [place] Urine Protein Urine Ketones Urine Blood Urine Nitrite Urine Bilirubin Urine Urobilinogen Ur Leukocyte Esterase Urine Glucose COVID-19 Source Nasal/nares Last Vital Signs Temp 37.2 C 03/14/21 20:01 Pulse 104 H 03/14/21 20:01 Resp 19 03/14/21 20:01 BP 150/90 H 03/14/21 20:01 Pulse Ox 100 03/14/21 20:01 COVID-19 Screening Have you, or household traveled for leisure in last 14 days?: No Had IN PERSON contact w/suspected or confirmed C-19 person: No
[2021-03-14] MEDS: Sulfameth/Trimeth DS TAB 1 TAB PO (20:40)
[2021-03-14 21:10] LABS: GGT 23 U/L (5-55)
[2021-03-14 21:30] LABS: C-Reactive Protein 0.58 mg/dL (0.0-0.3)
[2021-03-14] MEDS: diphenhydrAMINE 25 MG CAP PO (21:55)
[2021-03-14] MEDS: Docusate Sodium 100 MG CAP PO (21:55)
[2021-03-14] MEDS: Methadone 10 MG TAB 20 MG PO (21:55)
[2021-03-14 22:50] LABS: INR 1.1 (0.9-1.1); Prothrombin Time 10.9 sec (9.3-11.0)
[2021-03-14 23:07] LABS: COVID-19 PCR Negative (Negative)
[2021-03-15] VITALS (7 sets, daily range): BP systolic 113–156; BP diastolic 74–94; PULSE 88–110; RESP 14–19; TEMP 36.1–37.3; O2SAT 96–100
--- NOTE | 2021-03-15 | DI.US_ITS ---
EXAM: US ABDOMEN CLINICAL HISTORY: ruq pain. gb contracted on ct mildly dilated bile TECHNIQUE: Ultrasound of complete upper abdomen performed using standard protocol. COMPARISON: CT CT ABDOMEN PELVIS W from 03/14/2021 FINDINGS: There is no ascites evident. LIVER: No focal hepatic lesions evident. No obvious steatosis. GALLBLADDER/BILIARY: There are no gallstones. No gallbladder wall edema nor pericholecystic fluid. G allbladder is not overly distended. The common hepatic duct isdilated, measuring up to 15 millimetersmm at the level of herman hepatis. C BD is also slightly dilated. At the level of the pancreatic head diameter is approximately 10 millim eters. PANCREAS: There is no evidence of pancreatic mass. Pancreatic duct diameter is 3 millimeters, upper normal. SPLEEN: The spleen is not enlarged and there are no intrasplenic lesions evident. KIDNEYS:There is 2 centimeters cyst in the left kidney, seen on the recent CT scan. No cortical cyst s evident. ABDOMINAL AORTA: There is no evidence of abdominal aortic aneurysm. IVC: Normal diameter where visualized. IMPRESSION: 1. No evidence of cholelithiasis. However, there is dilatation of the extrahepatic biliary tree up to 15 millimeters. There is no obvious calculus seen in the lower CBD and no obvious pancreatic head mass. Correlation with appropriate blood work recommended. 2. Pancreatic duct diameter is 3 millimeters, upper normal/minimally prominent. 3. Benign cyst in the left kidney noted measuring approximately 2 cm. This was also seen on the CT scan. There is a 7-8 millimeter hyperechoic structure in the wall of this cyst of questionable signi ficance given that there are no calculi seen in the left kidney yesterday's CT scan DATA REPOSITORY:
[2021-03-15] MEDS: Acetaminophen 325 MG TAB 650 MG PO ×2 (01:21→07:35)
[2021-03-15] MEDS: Pantoprazole 40 MG VIAL IVP ×2 (04:09→15:34)
[2021-03-15] MEDS: Normal Saline Flush 10 ML SYR IVP ×4 (04:09→20:27)
[2021-03-15] MEDS: Levothyroxine 100 MCG TAB PO (05:36)
[2021-03-15] MEDS: FAMOTIDINE 20 MG/50 ML BAG 200 MG IVPB ×2 (05:36→17:47)
[2021-03-15] MEDS: Levothyroxine 75 MCG TAB PO (05:36)
[2021-03-15] MEDS: Docusate Sodium 100 MG CAP PO ×2 (06:17→21:26)
[2021-03-15] MEDS: Normal Saline 1,000 ML 125 ML IV ×2 (06:18→06:27)
[2021-03-15 06:44] LABS: Abs Immature Grans 0.02 10^3/uL (0.0-0.06); Absolute Basophil Count 0.04 10^3/uL (0.0-0.2); Absolute Eosinophil Count 0.19 10^3/uL (0.0-0.7); Absolute Lymphocyte Count 1.18 10^3/uL (1.2-3.4); Absolute Neutrophil Count 3.41 10^3/uL (1.2-6.7); Basophils % 0.7; Eosinophils % 3.3; HCT 36.4 % (36.0-46.0); HGB 11.5 g/dL (11.2-15.7); Immature Grans % 0.3; Lymphocytes % 20.2; MCH 33.2 pg (27.0-33.0); MCHC 31.6 % (32.0-36.0); MCV 105.2 fL (80-95); MPV 9.6 fL (8.0-11.0); Monocytes % 17.1; Neutrophils % 58.4; Nucleated RBC 0 %; Platelet Count 265 10^3/uL (130-400); RBC 3.46 10^6/uL (3.93-5.22); RDW 12.6 % (11.7-14.6); RDW-SD 48.9 fL; WBC 5.84 10^3/uL (4.4-10.8)
[2021-03-15 06:54] LABS: ALT 49 U/L (14-59); AST 28 U/L (15-37); Albumin 3.6 g/dL (3.4-5.0); Alkaline Phosphatase 93 U/L (46-116); Anion Gap 5.7 mmol/L (3-11); BUN 9 mg/dL (7-18); Bilirubin, Total 0.8 mg/dL (0.2-1.0); C-Reactive Protein 0.42 mg/dL (0.0-0.3); CO2 31.3 mmol/L (21.0-32.0); CREATININE 0.9 mg/dL (0.55-1.02); Calcium 8.8 mg/dL (8.5-10.1); Chloride 104 mmol/L (98-107); Glucose 82 mg/dL (74-106); Lipase 162 U/L (73-393); Potassium 3.9 mmol/L (3.5-5.1); Sodium 141 mmol/L (136-145); Total Protein 7.2 g/dL (6.4-8.2)
[2021-03-15] MEDS: Losartan 50 MG TAB 100 MG PO (07:36)
[2021-03-15] MEDS: amLODIPine 2.5 MG TAB PO (07:36)
[2021-03-15] MEDS: Acyclovir 400 MG TAB 800 MG PO (07:36)
[2021-03-15] MEDS: Gabapentin 300 MG CAP 600 MG PO ×2 (07:36→20:16)
[2021-03-15] MEDS: Sulfameth/Trimeth DS TAB 1 TAB PO ×2 (07:36→20:16)
[2021-03-15] MEDS: Apixaban 5 MG TAB PO ×2 (07:36→20:16)
[2021-03-15] MEDS: Sucralfate 1 GM TAB PO ×4 (07:36→21:26)
[2021-03-15] MEDS: predniSONE 5 MG TAB 7.5 MG PO (07:37)
[2021-03-15] MEDS: Bumetanide 1 MG TAB 0.5 MG PO (07:37)
--- NOTE | 2021-03-15 09:55 | RESPIRATORY ---
Pt uses oxygen cont at home and has family that will bring her portable concentrator to the hospital to pick her up.
[2021-03-15] MEDS: Magnesium Oxide 400 MG TAB PO (10:15)
--- NOTE | 2021-03-15 11:26 | INITIAL_ITS ---
- If Service Date Differs Date of service: 03/15/21 Time of Service: 11:26 Care Management Initial Assess REASON FOR HOSPITALIZATION:: Epigastric abdominal pain, biliary ductal dilatation PAST MEDICAL HISTORY/PAST SURGICAL HISTORY:: Medical History: Hypertension PREVIOUS FUNCTIONAL STATUS/SOCIAL/FAMILY SUPPORTS:: Marla lives in a first floor apartment in [facility] with her sister, Yana. Her daughter, Cyndy, is very supportive, but lives in [place]. She receives support from [facility], and uses a cane for ambulation. She is independent with her ADL's. CURRENT FUNCTIONAL STATUS:: Marla was sitting up eating lunch when CM met with her. She reported that per provider, if she is able to tolerate her lunch without pain she may be ready for discharge. Marla is agreeable to this plan, and reports that her sister will drive her home if she is ready. CM will continue to follow. ADVANCE DIRECTIVES:: On file. Her daughter, Cyndy, listed as agent. Has patient been provided with info about the portal/API?: Yes Did the patient sign up for the portal?: No CODE STATUS:: Full Code INSURANCE COVERAGE / FINANCIAL ISSUES:: [employer] CURRENT HOME/COMMUNITY SERVICES/EQUIPMENT:: Marla uses a cane for ambulation. PRIMARY CARE PHYSICIAN:: Curt Cassidy POTENTIAL DISCHARGE NEEDS:: Evaluations for further needs, follow up appointment. PATIENT/FAMILY EDUCATION NEEDS:: Review discharge instructions regarding activity levels and medications, discussion of self care needs. ANTICIPATED BARRIERS TO DISCHARGE:: None identified. TRANSPORTATION:: Marla will be driven home via private vehicle by family. PLAN:: Anticipate Marla will return home when medically cleared. She will be driven home via private vehicle by family. She will follow up with her PCP and discharge plan of care. CM will continue to follow.
--- NOTE | 2021-03-15 13:16 | PGE_ITS ---
Date of Service Date of service: 03/15/21 Time of Service: 07:00 Assessment and Plan Assessment and plan (1) Continuous RUQ abdominal pain: Status: Acute Assessment and plan: Pain is currently well controlled. Continue NPO Awaiting MRCP and Abdominal US results. Subjective Subjective Interval history since last seen: Patient reports that she continues to have epigastric pain. She states this has improved overnight and she believes that partially her improvement is secondary to not eating. Exam Const General: cooperative, healthy appearing and comfortable Orientation: alert and oriented x3 Resp Effort & Inspection: normal respiratory effort, no audible wheezes and no cough Objective Last Vital Signs Temp 37.3 C 03/15/21 11:47 Pulse 107 H 03/15/21 11:47 Resp 18 03/15/21 11:47 BP 151/92 H 03/15/21 11:47 Pulse Ox 96 03/15/21 11:47 Laboratory Results - last 24 hr 03/14/21 03/14/21 03/14/21 14:45 14:45 14:45 WBC 8.01 RBC 3.37 L Hgb 11.2 Hct 35.0 L MCV 103.9 H MCH 33.2 H MCHC 32.0 RDW 12.4 Plt Count 298 MPV 9.5 Immature Gran % 0.2 Neutrophils % 67.6 Lymphocytes % 16.5 Monocytes % 13.1 Eosinophils % 1.9 Basophils % 0.7 Nucleated RBC % 0 Absolute Neutrophils 5.41 Absolute Lymphocytes 1.32 Absolute Monocytes 1.05 H Absolute Eosinophils 0.15 Absolute Basophils 0.06 PT INR APTT Sodium 140 Potassium 3.6 Chloride 102 Carbon Dioxide 32.5 H Anion Gap 5.5 BUN 10 Creatinine 1.0 Estimated GFR/1.73 m2 56.00 Glucose 97 Calcium 9.3 Magnesium 1.7 L Total Bilirubin 0.5 GGT AST 28 ALT 47 Alkaline Phosphatase 99 Troponin I < 0.05 C-Reactive Protein 0.58 H Total Protein 7.5 Albumin 3.8 Lipase 166 TSH Urine Color Urine Clarity Urine pH Ur Specific [place] Urine Protein Urine Ketones Urine Blood Urine Nitrite Urine Bilirubin Urine Urobilinogen Ur Leukocyte Esterase Urine Glucose COVID-19 Source SARS-CoV-2 (PCR) 03/14/21 03/14/21 03/14/21 14:45 14:45 14:45 WBC RBC Hgb Hct MCV MCH MCHC RDW Plt Count MPV Immature Gran % Neutrophils % Lymphocytes % Monocytes % Eosinophils % Basophils % Nucleated RBC % Absolute Neutrophils Absolute Lymphocytes Absolute Monocytes Absolute Eosinophils Absolute Basophils PT 10.0 10.9 INR 1.0 1.1 APTT 24.5 Sodium Potassium Chloride Carbon Dioxide Anion Gap BUN Creatinine Estimated GFR/1.73 m2 Glucose Calcium Magnesium Total Bilirubin GGT AST ALT Alkaline Phosphatase Troponin I C-Reactive Protein Total Protein Albumin Lipase TSH 0.11 L Urine Color Urine Clarity Urine pH Ur Specific [place] Urine Protein Urine Ketones Urine Blood Urine Nitrite Urine Bilirubin Urine Urobilinogen Ur Leukocyte Esterase Urine Glucose COVID-19 Source SARS-CoV-2 (PCR) 03/14/21 03/14/21 03/14/21 16:35 18:15 18:25 WBC RBC Hgb Hct MCV MCH MCHC RDW Plt Count MPV Immature Gran % Neutrophils % Lymphocytes % Monocytes % Eosinophils % Basophils % Nucleated RBC % Absolute Neutrophils Absolute Lymphocytes Absolute Monocytes Absolute Eosinophils Absolute Basophils PT INR APTT Sodium Potassium Chloride Carbon Dioxide Anion Gap BUN Creatinine Estimated GFR/1.73 m2 Glucose Calcium Magnesium Total Bilirubin GGT 23 AST ALT Alkaline Phosphatase Troponin I < 0.05 C-Reactive Protein Total Protein Albumin Lipase TSH Urine Color Yellow Urine Clarity Clear Urine pH 7.0 Ur Specific [place] 1.015 Urine Protein Negative Urine Ketones 15 H Urine Blood Negative Urine Nitrite Negative Urine Bilirubin Negative Urine Urobilinogen 0.2 Ur Leukocyte Esterase Negative Urine Glucose Negative COVID-19 Source Nasal/nares SARS-CoV-2 (PCR) Negative 03/15/21 03/15/21 06:26 06:26 WBC 5.84 RBC 3.46 L Hgb 11.5 Hct 36.4 MCV 105.2 H MCH 33.2 H MCHC 31.6 L RDW 12.6 Plt Count 265 MPV 9.6 Immature Gran % 0.3 Neutrophils % 58.4 Lymphocytes % 20.2 Monocytes % 17.1 Eosinophils % 3.3 Basophils % 0.7 Nucleated RBC % 0 Absolute Neutrophils 3.41 Absolute Lymphocytes 1.18 L Absolute Monocytes 1.00 H Absolute Eosinophils 0.19 Absolute Basophils 0.04 PT INR APTT Sodium 141 Potassium 3.9 Chloride 104 Carbon Dioxide 31.3 Anion Gap 5.7 BUN 9 Creatinine 0.9 Estimated GFR/1.73 m2 >= 60.00 Glucose 82 Calcium 8.8 Magnesium Total Bilirubin 0.8 GGT AST 28 ALT 49 Alkaline Phosphatase 93 Troponin I C-Reactive Protein 0.42 H Total Protein 7.2 Albumin 3.6 Lipase 162 TSH Urine Color Urine Clarity Urine pH Ur Specific [place] Urine Protein Urine Ketones Urine Blood Urine Nitrite Urine Bilirubin Urine Urobilinogen Ur Leukocyte Esterase Urine Glucose COVID-19 Source SARS-CoV-2 (PCR)
--- NOTE | 2021-03-15 15:37 | CHAPLAIN ---
Marla is a [employer] and a member of the [employer] in [place]. The [employer] leaders know she is here, she said. She also said she is starting to feel better and was beginning to have a light lunch.
--- NOTE | 2021-03-15 16:33 | PGE_ITS ---
Date of Service Date of service: 03/15/21 Time of Service: 13:00 Assessment and Plan Assessment and plan (1) Abdominal pain: Start date: 03/15/21 Start time: 13:00 Status: Acute Assessment and plan: Renal u/s No evidence of cholelithiasis. However, there is dilatation of the extrahepatic biliary tree up to 15 millimeters. There is no obvious calculus seen in the lower CBD and no obvious pancreatic head mass. Correlation with appropriate blood work recommended. 2. Pancreatic duct diameter is 3 millimeters, upper normal/minimally prominent. 3. Benign cyst in the left kidney noted measuring approximately 2 cm. This was also seen on the CT scan. There is a 7-8 millimeter hyperechoic structure in the wall of this cyst of questionable significance given that there are no calculi seen in the left kidney yesterday's CT scan Some improvement in symptoms. Suspect gastritis and GERD due to relief after receiving IV protonix yesterday she stated and this am. Will change to PO, will continue bland diet. Continue carafate, pepcid, mylanta with lidocaine prn and d/c IVF Tolerating water Should have outpatient follow up with GI and EGD Likely d/c in am Qualifiers: Abdominal location: epigastric Qualified Code(s): R10.13 - Epigastric pain (2) Dilated bile duct: Start date: 03/15/21 Start time: 13:00 Status: Ruled-out Assessment and plan: Does not appear to be the cause as above (3) Hypertension: Start date: 03/15/21 Start time: 13:00 Status: Chronic Assessment and plan: Only happens when having pain Qualifiers: Hypertension type: essential hypertension Qualified Code(s): I10 - Essential (primary) hypertension (4) Rheumatoid arthritis: Start date: 03/15/21 Start time: 13:00 Status: Chronic Assessment and plan: Significant history with treatmernt for 30 years with side effects from treatment and surgeries. Present medical therapy does increase risk for gastritis and esophagitis as well as immunocompromised state. Continue usual medical regimen with monitoring. above case discussed with Dr. Wiley Qualifiers: Rheumatoid arthritis location: multiple sites Rheumatoid factor presence: unspecified presence Qualified Code(s): M06.9 - Rheumatoid arthritis, unspecified Subjective Subjective Patient reports: feels better Interval history since last seen: Patient states that she is feeling a little better the medication given through the IV on admission and again at 0400 really helped her after reviewing the orders it appears this was protonix. Suspect gastritis and GERD. She has been on po steroids without any h2 blockers or PPI. Pain is improving. Carafate as well was added. She will likely be discharged home in the morning. She denies CP, SOB, N/V/D. Exam Narrative Exam Narrative: General: Patient appears older than stated age, shortened upper extremities and severe rheumatoid arthritis changes especially over the hands and elbows. Normal affect and mood, alert and oriented x3. She is in no acute distress. HEENT: Normocephalic, eyes with pupils equal and reactive to light symmetrically, extraocular movement intact and sclera anicteric. Oropharynx with moist mucosa. Neck: Supple without JVD. Lungs: Fair aeration and clear to auscultation and percussion. Back: Kyphotic with no CVA tenderness. Abdomen: Obese contour, soft and nontender to palpation with no palpable he patosplenomegaly. Bowel sounds positive all quadrants. Nontender in the epigastrium and negative Wisdom sign. Genitalia/rectal: Exam deferred. Skin: Pale, warm and dry. Extremities: Marked RA deformities of hands over the MCP and IP joints with ulnar deviation and swelling, shortened upper extremities with elbows having limited range of motion as well as shoulders having limited range of motion. Left is worse than right. Lower extremities have less arthritic changes but joints do have decreased range of motion and there are well-healed scars over the anterior aspect of both knees. Peripheral pulses intact with good capillary refill. Neuro: Cranial nerves II through XII grossly intact, no focalizing motor deficits. Generalized weakness especially over upper extremity with limited range of motion with some muscle atrophy. Psych: Normal affect with slightly depressed mood and pressured speech. No abnormal thought processes. Remote and recent memory intact. Objective Last Vital Signs Temp 37.3 C 03/15/21 11:47 Pulse 107 H 03/15/21 11:47 Resp 18 03/15/21 11:47 BP 151/92 H 03/15/21 11:47 Pulse Ox 96 03/15/21 11:47 Laboratory Results - last 24 hr 03/14/21 03/14/21 03/14/21 14:45 14:45 14:45 WBC RBC Hgb Hct MCV MCH MCHC RDW Plt Count MPV Immature Gran % Neutrophils % Lymphocytes % Monocytes % Eosinophils % Basophils % Nucleated RBC % Absolute Neutrophils Absolute Lymphocytes Absolute Monocytes Absolute Eosinophils Absolute Basophils PT 10.9 INR 1.1 Sodium 140 Potassium 3.6 Chloride 102 Carbon Dioxide 32.5 H Anion Gap 5.5 BUN 10 Creatinine 1.0 Estimated GFR/1.73 m2 56.00 Glucose 97 Calcium 9.3 Magnesium 1.7 L Total Bilirubin 0.5 GGT AST 28 ALT 47 Alkaline Phosphatase 99 Troponin I < 0.05 C-Reactive Protein 0.58 H Total Protein 7.5 Albumin 3.8 Lipase TSH 0.11 L Urine Color Urine Clarity Urine pH Ur Specific Andrews Urine Protein Urine Ketones Urine Blood Urine Nitrite Urine Bilirubin Urine Urobilinogen Ur Leukocyte Esterase Urine Glucose COVID-19 Source SARS-CoV-2 (PCR) 03/14/21 03/14/21 03/14/21 16:35 18:15 18:25 WBC RBC Hgb Hct MCV MCH MCHC RDW Plt Count MPV Immature Gran % Neutrophils % Lymphocytes % Monocytes % Eosinophils % Basophils % Nucleated RBC % Absolute Neutrophils Absolute Lymphocytes Absolute Monocytes Absolute Eosinophils Absolute Basophils PT INR Sodium Potassium Chloride Carbon Dioxide Anion Gap BUN Creatinine Estimated GFR/1.73 m2 Glucose Calcium Magnesium Total Bilirubin GGT 23 AST ALT Alkaline Phosphatase Troponin I < 0.05 C-Reactive Protein Total Protein Albumin Lipase TSH Urine Color Yellow Urine Clarity Clear Urine pH 7.0 Ur Specific Andrews 1.015 Urine Protein Negative Urine Ketones 15 H Urine Blood Negative Urine Nitrite Negative Urine Bilirubin Negative Urine Urobilinogen 0.2 Ur Leukocyte Esterase Negative Urine Glucose Negative COVID-19 Source Nasal/nares SARS-CoV-2 (PCR) Negative 03/15/21 03/15/21 06:26 06:26 WBC 5.84 RBC 3.46 L Hgb 11.5 Hct 36.4 MCV 105.2 H MCH 33.2 H MCHC 31.6 L RDW 12.6 Plt Count 265 MPV 9.6 Immature Gran % 0.3 Neutrophils % 58.4 Lymphocytes % 20.2 Monocytes % 17.1 Eosinophils % 3.3 Basophils % 0.7 Nucleated RBC % 0 Absolute Neutrophils 3.41 Absolute Lymphocytes 1.18 L Absolute Monocytes 1.00 H Absolute Eosinophils 0.19 Absolute Basophils 0.04 PT INR Sodium 141 Potassium 3.9 Chloride 104 Carbon Dioxide 31.3 Anion Gap 5.7 BUN 9 Creatinine 0.9 Estimated GFR/1.73 m2 >= 60.00 Glucose 82 Calcium 8.8 Magnesium Total Bilirubin 0.8 GGT AST 28 ALT 49 Alkaline Phosphatase 93 Troponin I C-Reactive Protein 0.42 H Total Protein 7.2 Albumin 3.6 Lipase 162 TSH Urine Color Urine Clarity Urine pH Ur Specific Andrews Urine Protein Urine Ketones Urine Blood Urine Nitrite Urine Bilirubin Urine Urobilinogen Ur Leukocyte Esterase Urine Glucose COVID-19 Source SARS-CoV-2 (PCR)
[2021-03-15] MEDS: Methadone 10 MG TAB 20 MG PO (21:25)
[2021-03-15] MEDS: diphenhydrAMINE 25 MG CAP PO (21:51)
[2021-03-15] MEDS: Bisacodyl 5 MG TABEC 10 MG PO (21:51)
[2021-03-16] MEDS: Levothyroxine 100 MCG TAB PO (05:12)
[2021-03-16] MEDS: Levothyroxine 75 MCG TAB PO (05:12)
[2021-03-16] MEDS: FAMOTIDINE 20 MG/50 ML BAG 200 MG IVPB (05:13)
[2021-03-16] MEDS: Docusate Sodium 100 MG CAP PO (05:13)
[2021-03-16] MEDS: Normal Saline Flush 10 ML SYR IVP (05:15)
[2021-03-16 06:27] VITALS: BP 127/76; PULSE 88; RESP 18; TEMP 37.2; O2SAT 96
[2021-03-16 08:16] VITALS: BP 148/89; PULSE 93; RESP 18; TEMP 36.5; O2SAT 100
[2021-03-16] MEDS: Losartan 50 MG TAB 100 MG PO (08:49)
[2021-03-16] MEDS: Sucralfate 1 GM TAB PO ×2 (08:49→11:39)
[2021-03-16] MEDS: Acyclovir 400 MG TAB 800 MG PO (08:49)
[2021-03-16] MEDS: Sulfameth/Trimeth DS TAB 1 TAB PO (08:50)
[2021-03-16] MEDS: Gabapentin 300 MG CAP 600 MG PO (08:50)
[2021-03-16] MEDS: Apixaban 5 MG TAB PO (08:50)
[2021-03-16] MEDS: amLODIPine 2.5 MG TAB PO (08:50)
[2021-03-16] MEDS: Pantoprazole 40 MG TABCR PO (08:50)
[2021-03-16] MEDS: Bumetanide 1 MG TAB 0.5 MG PO (08:51)
[2021-03-16] MEDS: predniSONE 5 MG TAB 7.5 MG PO (08:58)
[2021-03-16] MEDS: Magnesium Oxide 400 MG TAB PO (10:21)
--- NOTE | 2021-03-16 10:56 | DSE_ITS ---
Date of service: 03/16/21 Time of Service: 10:56 DS: Diagnosis Discharge Diagnosis (1) Abdominal pain: Start date: 03/16/21 Start time: 10:57 Status: Acute Asessment and Plan: Pain has improved, patient has been on steroids and apixaban without GI protection, suspect Gastritis, GERD and possible ulcer. 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 No evidence of cholelithiasis. However, there is dilatation of the extrahepatic biliary tree up to 15 millimeters. There is no obvious calculus seen in the lower CBD and no obvious pancreatic head mass. Correlation with appropriate blood work recommended. 2. Pancreatic duct diameter is 3 millimeters, upper normal/minimally prominent. 3. Benign cyst in the left kidney noted measuring approximately 2 cm. This was also seen on the CT scan. There is a 7-8 millimeter hyperechoic structure in the wall of this cyst of questionable significance given that there are no calculi seen in the left kidney yesterday's CT scan Surgery evaluated patient not concerned for any acute infectious processes, ag venice to outpatient EGD at [facility]. (2) Dilated bile duct: Start date: 03/16/21 Start time: 11:13 Status: Chronic Asessment and Plan: as above (3) Hypertension: Start date: 03/16/21 Start time: 11:14 Status: Chronic Asessment and Plan: Continue CCB, DASH diet. ARB, (4) Rheumatoid arthritis: Start date: 03/16/21 Start time: 11:15 Status: Chronic Asessment and Plan: Patient would like to start to wean off her prednisone. She wanted to start while she was in the hospital. It was discussed that is was safer for her to do this as an outpatient. She should also be monitored for Adrenal insufficiency in setting usp steroid use. above case discussed with Dr. 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 Labs in the ED remarkable for CRP 0.58, otherwise unremarkable. Surgery consulted over concern for possible infectious gallbladder, however she had no clinical signs of infection and u/s r/o suspicion of infection. She was placed on a PPI/[id number], carafate, lidocaine with mylanta, which proved to be helpful. She stated most relief came when she was given IV protonix which would make sense in setting of gastritis/GERD and possible ulcer. She would benefit from outpatient EGD through [facility], referral will be sent. She would like to be taken off her prednisone this would best be done in setting of her Rheumatololigist or PCP while she can followed in the community and they can monitor for adrenal insufficiency. She should continue PPI as long as she is on apixaban for protection. Recommend yogurt BID in setting of prophylactic antibiotic. Explained that it may take a couple of days to have complete resolution of pain and symptoms as this has progressed over months with days of worsening, before being able to advance from bland diet to a more heart healthy regular diet. Patient denies CP, SOB, N/V/D. Home Meds and New Rx's Prescriptions: New famotidine 20 mg tablet 20 mg PO DAILY Qty: 30 RF: 0 Bio-K plus 50 billion cell capsule,delayed release(DR/EC) 1 cap PO DAILY Qty: 30 RF: 0 pantoprazole 40 mg Tablet,Delayed Release (Dr/Ec) 40 mg PO BID@0730,1999 Qty: 60 RF: 0 sucralfate 1 gram Tablet 1 g PO AC & HS Qty: 120 RF: 0 Lidocaine Viscous 2 % Solution 15 ml PO TID PRN (Reason: acid reflux) Qty: 100 RF: 0 alum-mag hydroxide-simeth [Mag-Al Plus] 200-200-20 mg/5 mL Suspension 30 ml PO TID PRN (Reason: indigestion) Qty: 3000 RF: 0 Continued cyclobenzaprine 10 MG tablet 10 mg PO TID PRN PRNRF: 0 doxepin 50 MG capsule 50 mg PO DIRECTED PRNRF: 0 methadone 10 MG tablet 20 mg PO HS RF: 0 prednisone 5 MG tablet 7.5 mg PO DAILY RF: 0 leflunomide [Arava] 20 MG tablet 20 mg PO DAILY RF: 0 calcium carbonate [Tums Ultra] 400 MG tablet,chewable 800 mg PO TID RF: 0 diphenhydramine HCl 25 MG capsule 25 mg PO Q4H PRN PRNRF: 0 gabapentin 300 MG capsule 600 mg PO TID RF: 0 ergocalciferol (vitamin D2) [Vitamin D2] 50,000 UNITS capsule 50,000 units PO DIRECTED RF: 0 levothyroxine [Synthroid] 112 MCG tablet 175 mcg PO DAILY RF: 0 risedronate [Actonel] 35 MG tablet 35 mg PO DIRECTED RF: 0 Eliquis 5 mg tablet 5 mg PO BID RF: 0 multivitamin Tablet 1 tab PO DAILY RF: 0 ipratropium-albuterol 0.5 mg-3 mg(2.5 mg base)/3 mL Solution For Nebulization 3 ml INHALATION Q4H PRNRF: 0 amlodipine 2.5 mg Tablet 2.5 mg PO DAILY RF: 0 acyclovir 800 mg Tablet 800 mg PO DAILY RF: 0 bumetanide 0.5 mg Tablet 0.5 mg PO DAILY RF: 0 docusate sodium [Colace] 100 mg Capsule 200 mg PO DAILY RF: 0 albuterol sulfate [ProAir HFA] 90 mcg/actuation Hfa Aerosol Inhaler 2 puff INHALATION 6XD RF: 0 losartan 100 mg Tablet 100 mg PO DAILY RF: 0 naloxone 4 mg/actuation [place],Non-Aerosol 4 mg INTRANASAL Q2-3M PRNRF: 0 Discontinued Lactobacillus acidophilus Capsule 1,000 mmu cells PO DAILY RF: 0 Discharge Instructions Instructions: Gastritis (DC), Diet for Stomach Ulcers and Gastritis (GEN), GERD (Gastroesophageal Reflux Disease) (DC) Additional Instructions: Talk to your PCP about stopping medications and adrenal insufficiency Follow up in the next week or 2 with your PCP Follow up with [facility] for GI we will set up referral and call you with referral. Continue all medications daily as prescribed Recommend you take lidocaine with mylanta as needed for burning pain Continue bland diet until feeling better then slowly advance diet until feeling better and able to tolerate Stand Alone Forms: Nursing Discharge Form Referrals: GASTROENTEROLOGY,[facility] [OTHER] - (Would benefit from EGD) Curt Cassidy [Primary Care Provider] - 03/28/21 10:30 am Activity:: Activity as Tolerated Equipment/Supplies:: No Equipment Needed Diet:: Low Sodium Discharge Orders Discharge Orders: Discharge Order (Routine); Ordered 03/16/21 Ordered By: Rosetta Beth DS: Summary Time Spent with Patient providing and/or coordinating discharge services: Greater than 30 minutes Specific discharge activities: Approx 45 mins spent on discharge with explanation of instructions, reviewing chart and working on discharge summary Status at Discharge Functional status at discharge: uses cane/walker Overall status at discharge: patient is progressing back to baseline Mental Status: mental status grossly normal Speech and Movement: speech and movement normal Mood: congruent mood Affect: normal affect Exam Narrative Exam Narrative: General: Patient appears older than stated age, shortened upper extremities and severe rheumatoid arthritis changes especially over the hands and elbows. Normal affect and mood, alert and oriented x3. She is in no acute distress. HEENT: Normocephalic, eyes with pupils equal and reactive to light symmetrically, extraocular movement intact and sclera anicteric. Oropharynx with moist mucosa. Neck: Supple without JVD. Lungs: Fair aeration and clear to auscultation and percussion. Back: Kyphotic with no CVA tenderness. Abdomen: Obese contour, soft and nontender to palpation with no palpable hepatosplenomegaly. Bowel sounds positive all quadrants. Nontender in the epigastrium and negative Wisdom sign. Genitalia/rectal: Exam deferred. Skin: Pale, warm and dry. Extremities: Marked RA deformities of hands over the MCP and IP joints with ulnar deviation and swelling, shortened upper extremities with elbows having limited range of motion as well as shoulders having limited range of motion. Left is worse than right. Lower extremities have less arthritic changes but joints do have decreased range of motion and there are well-healed scars over the anterior aspect of both knees. Peripheral pulses intact with good capillary refill. Neuro: Cranial nerves II through XII grossly intact, no focalizing motor deficits. Generalized weakness especially over upper extremity with limited range of motion with some muscle atrophy. Psych: Normal affect with slightly depressed mood and pressured speech. No abnormal thought processes. Remote and recent memory intact. Psych Mental Status: mental status grossly normal Speech and Movement: speech and movement normal Mood: congruent mood Affect: normal affect DS: Data Vitals/I&O Vitals and I&O: Vital Signs Temperature 36.5 C 03/16/21 08:16 Temperature Source Tympanic 03/16/21 08:16 Pulse 93 H 03/16/21 08:16 Pulse Rhythm Regular 03/16/21 04:09 Pulse 106 H 03/14/21 19:00 Respiratory Rate 18 03/16/21 08:16 Respiratory Effort Incrsd Work of Breathing 03/16/21 04:09 Respiratory Depth Deep 03/16/21 04:09 Respiratory Pattern Normal 03/16/21 04:09 Blood Pressure 148/89 H 03/16/21 08:16 Blood Pressure Mean 95 03/14/21 18:00 Blood Pressure Position Supine 03/14/21 14:45 Pulse Oximetry 100 03/16/21 08:16 Oxygen Delivery Method Nasal Cannula 03/16/21 08:16 Oxygen Flow Rate 2 03/16/21 08:16 Pain Level 0 03/16/21 08:16 Intake & Output 03/15/21 03/15/21 03/16/21 11:59 23:59 11:59 Intake Total 1225.00 / 4182.50 2957.5 / 4182.50 370 / 370 Output Total 850 / 4370 3520 / 4370 250 / 250 Balance 375.00 / -187.50 -562.5 / -187.50 120 / 120 Weight 84.3 kg 82.9 kg Intake: IV 1225.00 / 2122.50 897.5 / 2122.50 10 / 10 Oral 2059 / 2060 360 / 360 Output: Urine 850 / 4370 3520 / 4370 250 / 250 Other: Urine Color Yellow Pale Yellow Yellow Urine Appearance Clear Clear Clear Urine Odor Normal Normal Normal Stool Size Large Stool Characteristics Soft Liquid Brown Voiding Methods Bedside Commode Bedside Commode Toilet Data Completed and Pending Completed studies during hospitalization [Text1]: Exam(s) a CT:CT abdomen & pelvis w EXAM: CT ABDOMEN PELVIS W CLINICAL HISTORY: Epigastric pain, wait for CR. TECHNIQUE: Imaging Protocol: Axial computed tomography images with coronal and sagittal reformatted images were created and reviewed CONTRAST MATERIAL: Intravenous: Omnipaque 100cc Oral: None COMPARISON: No exams were available for comparison FINDINGS: VISUALIZED LUNG BASES: There is a 7 millimeter noncalcified nodule in the right lung base just above the hemidiaphragm in the lateral basal segment of the right lower lobe.. This is contiguous with the right hemidiaphragm. Will require appropriate follow-up. ABDOMEN: There is no ascites. LIVER: There are no focal hepatic lesions evident. Mild dilatation of intrahepatic ducts. GALLBLADDER/BILIARY: Gallbladder appears contracted. CBD diameter is slightly prominent. No obvious calculus in lower CBD. No pancreatic head mass evident. No obvious mass in the lower CBD-duodenal wall. PANCREAS: No evidence of pancreatic mass nor dilatation of the pancreatic duct. SPLEEN: Spleen is not enlarged. No obvious intrasplenic lesions. Splenic and portal veins are patent. ADRENALS: There are no significant adrenal masses. KIDNEYS:There is 1.7 x 1.6 cm benign cyst in the left kidney. No solid renal masses. No calculi nor hydronephrosis.. ABDOMINAL AORTA: Abdominal aorta is not enlarged. LYMPH NODES:There is no retroperitineal nor paraaortic adenopathy. ABDOMINAL WALL/GI: No evidence of significant anterior abdominal wall hernia. No bowel obstruction. PELVIS: GI: No evidence of appendicitis.No evidence of sigmoid diverticulitis. LYMPH NODES: There is no intrapelvic nor inguinal adenopathy. REPRODUCTIVE: Uterus is surgically absent. There are no abnormal adnexal masses. URINARY BLADDER: Somewhat distended. Otherwise unremarkable. OSSEOUS: No significant osseous lesions. IMPRESSION: 1. There is a 7 millimeter noncalcified nodule in the extreme right lung contiguous with the right hemidiaphragm. This requires appropriate follow-up. Recommend follow-up noninfused CT scan of the chest. 2. Gallbladder is contracted. There is mild dilatation of the biliary tree, both intra and extrahepatic. No calculi in the lower CBD nor pancreatic head mass nor mass in the lower CBD to explain this. Correlation with appropriate blood work recommended. Recommend follow-up gallbladder ultrasound. 3. The uterus is surgically absent. No abnormal adnexal masses. No free fluid. 4. Urinary bladder is slightly distended. Exam(s) PROCEDURE INFORMATION: Exam: CT Abdomen And Pelvis With Contrast Exam date and time: 03/14/2021 4:26 PM Age: 65 years old Clinical indication: Other: Epigastric pain TECHNIQUE: Imaging protocol: Computed tomography of the abdomen and pelvis with contrast. Radiation optimization: All CT scans at this facility use at least one of these dose optimization techniques: automated exposure control; mA and/or kV adjustment per patient size (includes targeted exams where dose is matched to clinical indication); or iterative reconstruction. Contrast material: VISIPAQUES 320; Contrast volume: 100 ml; Contrast route: INTRAVENOUS (IV); COMPARISON: No relevant prior studies available. FINDINGS: Lungs: 7 mm nodule in the right lung base on image 5 series 4 is nonspecific. Lung bases are otherwise clear. Mediastinal space: A small hiatal hernia is present. Liver: There is enlargement of the liver, measuring 20 cm.There is a diffuse decrease in hepatic parenchymal density, consistent with fatty infiltration. The liver is otherwise unremarkable. Gallbladder and bile ducts: The gallbladder is contracted. Mild to moderate intra and extrahepatic biliary ductal dilation. CBD measures up to 1.8 cm. No radiopaque structures are noted within the CBD. Pancreas: Normal. No ductal dilation. Spleen: Normal. No splenomegaly. Adrenal glands: Normal. No mass. Kidneys and ureters: There is a simple cyst in the left kidney measuring 2 cm. The left kidney is otherwise unremarkable. The right kidney is normal. The ureters are normal. Stomach and bowel: No bowel obstruction or significant bowel wall thickening. There is mildly excessive colonic stool content. Appendix: A normal appendix is identified. Intraperitoneal space: Unremarkable. No free air. No significant fluid collection. Vasculature: Unremarkable. No abdominal aortic aneurysm. Lymph nodes: Unremarkable. No enlarged lymph nodes. Urinary bladder: Unremarkable as visualized. Reproductive: There has been a hysterectomy. Bones/joints: No acute skeletal pathology. Mild multilevel degenerative changes of the spine, as manifested by multilevel anterior osteophytes and multilevel decrease in intervertebral disc space. Soft tissues: There is a fat-containing umbilical hernia. IMPRESSION: 1. Moderate intra and extrahepatic biliary ductal dilation, of unclear etiology. Correlation with biliary levels is recommended. 2. 7 mm nonspecific nodule in the right lung base. For patients at low risk (minimal or absent history of smoking and of other known risk factors), recommend CT Chest at 3-6 months, then consider CT Chest at 18-24 months. For patients at high risk (history of smoking or of other known risk factors), recommend CT Chest at 3-6 months, then CT Chest at 18-24 months. (Reference: Gonzalez) 3. No other acute abdominopelvic pathology is otherwise appreciated. 4. Incidental findings as detailed above. Exam(s) a US:US abdomen EXAM: US ABDOMEN CLINICAL HISTORY: ruq pain. gb contracted on ct mildly dilated bile TECHNIQUE: Ultrasound of complete upper abdomen performed using standard protocol. COMPARISON: CT CT ABDOMEN PELVIS W from 03/14/2021 FINDINGS: There is no ascites evident. LIVER: No focal hepatic lesions evident. No obvious steatosis. GALLBLADDER/BILIARY: There are no gallstones. No gallbladder wall edema nor pericholecystic fluid. Gallbladder is not overly distended. The common hepatic duct isdilated, measuring up to 15 millimetersmm at the level of herman hepatis. CBD is also slightly dilated. At the level of the pancre atic head diameter is approximately 10 millimeters. PANCREAS: There is no evidence of pancreatic mass. Pancreatic duct diameter is 3 millimeters, upper normal. SPLEEN: The spleen is not enlarged and there are no intrasplenic lesions evident. KIDNEYS:There is 2 centimeters cyst in the left kidney, seen on the recent CT scan. No cortical cysts evident. ABDOMINAL AORTA: There is no evidence of abdominal aortic aneurysm. IVC: Normal diameter where visualized. IMPRESSION: 1. No evidence of cholelithiasis. However, there is dilatation of the extrahepatic biliary tree up to 15 millimeters. There is no obvious calculus seen in the lower CBD and no obvious pancreatic head mass. Correlation with appropriate blood work recommended. 2. Pancreatic duct diameter is 3 millimeters, upper normal/minimally prominent. 3. Benign cyst in the left kidney noted measuring approximately 2 cm. This was also seen on the CT scan. There is a 7-8 millimeter hyperechoic structure in the wall of this cyst of questionable significance given that there are no calculi seen in the left kidney yesterday's CT scan Labs on day of discharge: Preliminary micro results at discharge 03/14/21 19:24 Blood Culture - Preliminary Blood NO GROWTH 24 HOURS 03/14/21 19:04 Blood Culture - Preliminary Blood NO GROWTH 24 HOURS PFSH Medical History Anticoagulant long-term use Chronic antibiotic suppression Chronic restrictive lung disease Continuous RUQ abdominal pain Current chronic use of systemic steroids Dilated bile duct Hypertension On home oxygen therapy Pulmonary nodule Restrictive pattern present on pulmonary function testing Rheumatoid arthritis chronic suppression on Arava and prednisone Social History Smoking/Tobacco Use Status: Never Smoking risk assessment performed?: Yes Alcohol Intake: never Drug use: Never Substance use type: does not use Do you feel safe at home: Yes Do you feel safe in your relationship?: Yes
--- NOTE | 2021-03-16 17:43 | PDOC.CMDIS ---
- If Service Date Differs Date of service: 03/16/21 Time of Service: 17:43 LACE Index Scoring Tool - Questions: Length of Stay (in days): 2 Acuity (Admit via E.D.?): Yes Comorbidities: Chronic Pulmonary Disease E.D. Visits: 3 - Answers: Total Score: 10 Risk of Readmission: High Risk Care Management Discharge Reason for Hospitalization: Epigastric abdominal pain, biliary ductal dilatation Discharge Plan: Marla will return home with no additional services at this time. She will be driven home via private vehicle by her sister. She will follow up with her PCP, [facility], and her discharge plan of care. She is happy to be going home. Patient/Family Education Needs: Review discharge instructions regarding activity levels and medications, discussion of self care needs.
== END 2021-03-16 15:08 | disposition home or self-care (01) | DRG 392 ==
LOC: ER 18:48 → MS 19:46
PROVIDERS: Emergency Medicine; Surgery; Admitting Provider Family Medicine; Emergency Provider Student in an Organized Health Care Education/Training Program; PCP Family Medicine; Visit Provider Family Medicine
DX: K29.70 Gastritis, unspecified, without bleeding (principal); D84.821 Immunodeficiency due to drugs; K21.9 Gastro-esophageal reflux disease without esophagitis; K82.8 Other specified diseases of gallbladder; I10 Essential (primary) hypertension; R06.9 Unspecified abnormalities of breathing; J98.4 Other disorders of lung; R91.1 Solitary pulmonary nodule; N28.1 Cyst of kidney, acquired; Z99.81 Dependence on supplemental oxygen; Z86.718 Personal history of other venous thrombosis and embolism; Z79.01 Long term (current) use of anticoagulants; Z86.711 Personal history of pulmonary embolism; Z79.899 Other long term (current) drug therapy; Z79.52 Long term (current) use of systemic steroids
CPT/HCPCS: 36415; 80053; 83690; 87040; 87635; 93005; 96361; 96374; 96375; 99285; 74177; 76700; 81003; 82977; 83735; 84443; 84484; 85025; 85610; 85730; 86140; 93010; 94667; 99223; 99232; 99238; J7512

== ENCOUNTER 2021-04-27 10:41 | Emergency (ER) | payer MEDICAID, SELFPAY ==
[2021-04-27 10:47] VITALS: BP 156/104; PULSE 112; RESP 20; TEMP 36.8; O2SAT 98
--- NOTE | 2021-04-27 11:02 | ED.GENADUL_ITS ---
Discharge Plan Disposition Patient Disposition: HOME Condition: Good Discharge Details Clinical Impression: Head injury Primary Care Provider: Curt Cassidy ED Provider: Rita Alexis Home Meds and New Rx's Prescriptions: No Action doxepin 50 MG capsule 50 - 100 mg PO QHS PRNRF: 0 methadone 10 MG tablet 20 mg PO HS RF: 0 prednisone 5 MG tablet 2.5 mg PO DAILY RF: 0 leflunomide [Arava] 20 MG tablet 20 mg PO DAILY RF: 0 calcium carbonate [Tums Ultra] 400 MG tablet,chewable 800 mg PO TID RF: 0 diphenhydramine HCl 25 MG capsule 25 mg PO Q4H PRN PRNRF: 0 gabapentin 300 MG capsule 600 mg PO TID RF: 0 ergocalciferol (vitamin D2) [Vitamin D2] 50,000 UNITS capsule 50,000 units PO DIRECTED RF: 0 levothyroxine [Synthroid] 112 MCG tablet 175 mcg PO DAILY RF: 0 risedronate [Actonel] 35 MG tablet 35 mg PO DIRECTED RF: 0 Eliquis 5 mg tablet 5 mg PO BID RF: 0 Bio-K plus 50 billion cell capsule,delayed release(DR/EC) 1 cap PO DAILY Qty: 30 RF: 0 sucralfate 1 gram Tablet 1 g PO AC & HS Qty: 120 RF: 0 lidocaine HCl [Lidocaine Viscous] 2 % Solution 15 ml PO TID PRN (Reason: acid reflux) Qty: 100 RF: 0 alum-mag hydroxide-simeth [Mag-Al Plus] 200-200-20 mg/5 mL Suspension 30 ml PO TID PRN (Reason: indigestion) Qty: 3000 RF: 0 multivitamin Tablet 1 tab PO DAILY RF: 0 ipratropium-albuterol 0.5 mg-3 mg(2.5 mg base)/3 mL Solution For Nebulization 3 ml INHALATION Q4H PRNRF: 0 amlodipine 2.5 mg Tablet 2.5 mg PO DAILY RF: 0 acyclovir 800 mg Tablet 800 mg PO DAILY RF: 0 bumetanide 0.5 mg Tablet 0.5 mg PO DAILY RF: 0 docusate sodium [Colace] 100 mg Capsule 200 mg PO DAILY RF: 0 albuterol sulfate [ProAir HFA] 90 mcg/actuation Hfa Aerosol Inhaler 2 puff INHALATION 6XD RF: 0 losartan 100 mg Tablet 100 mg PO DAILY RF: 0 naloxone 4 mg/actuation [place],Non-Aerosol 4 mg INTRANASAL Q2-3M PRNRF: 0 famotidine 40 mg tablet 40 mg PO DAILY RF: 0 sulfamethoxazole-trimethoprim 800-160 mg tablet 1 tab PO BID RF: 0 Discharge Instructions Instructions: Head Injury (ED) Additional Instructions: Please follow-up with your primary care physician Use caution when going from sitting to standing and with walking Tylenol as needed for discomfort Please follow-up with your primary care physician in 1 to 2 days for reevaluation and return earlier should you have new or worsening complaints Discharge Data Discharge Date/Time-TO BE ENTERED AT DEPARTURE: 04/27/21 12:19 Medical Decision Making Patient is alert and oriented, pleasant in demeanor, ambulatory at her baseline capacity, feel safe for discharge home, patient may have a concussion but I do think she is stable for discharge home at this time, she does not operate a vehicle and is aware of the precautions she should take She will take Tylenol as needed for discomfort She will return earlier should she have new or complaints and she discharged home in stable condition with stable vital Patient's heart rate 10 2-year-old at time of discharge home, baseline per patient, blood pressure recheck 140/92, baseline per patient when compared to prior Recheck with primary care physician this week recommended Alert, oriented, of decisional capacity Differential Diagnosis Differential Diagnosis: Concussion, subdural hematoma, skull fracture, neuralgia Medical Records Medical records reviewed: Yes I reviewed the patient's medical records. HPI General Mode of arrival: ambulatory . Date/Time Provider Initiated Documentation: 04/27/21 10:52 . Limitations to Documentation: no limitations . Information obtained by: patient . HPI Narrative: This 64-year-old female with a history of rheumatoid arthritis, hypertension, oxygen dependency, chronic anticoagulation for pulmonary embolism presents status post head injury 2 days prior to arrival. Patient states she stood up quickly and hit the occipital region of her head on a cabinet. There was no loss of consciousness. Patient states she had a headache since that time with intermittent mild lighthead edness. She states that the pain radiates to her ear. She denies any neck pain, strength or sensation change, vision change, significantly worsening headache, chest pain, shortness of breath, vomiting. She does report some nausea. She is getting around her house at her normal capacity she reports. She does feel safe at home and lives with her sister. Related Data Home Medications Medication Instructions Recorded Confirmed calcium carbonate [Tums Ultra] 800 mg PO TID 05/01/16 04/27/21 diphenhydramine HCl 25 mg PO Q4H PRN PRN 05/01/16 04/27/21 doxepin 50 - 100 mg PO QHS PRN 05/01/16 04/27/21 ergocalciferol (vitamin D2) 50,000 units PO DIRECTED 05/01/16 04/27/21 [Vitamin D2] gabapentin 600 mg PO TID 05/01/16 04/27/21 leflunomide [Arava] 20 mg PO DAILY 05/01/16 04/27/21 levothyroxine [Synthroid] 175 mcg PO DAILY 05/01/16 04/27/21 methadone 20 mg PO HS 05/01/16 04/27/21 prednisone 2.5 mg PO DAILY 05/01/16 04/27/21 risedronate [Actonel] 35 mg PO DIRECTED 05/01/16 04/27/21 acyclovir 800 mg PO DAILY 05/11/20 04/27/21 albuterol sulfate [ProAir HFA] 2 puff INHALATION 6XD 05/11/20 04/27/21 amlodipine 2.5 mg PO DAILY 05/11/20 04/27/21 bumetanide 0.5 mg PO DAILY 05/11/20 04/27/21 docusate sodium [Colace] 200 mg PO DAILY 05/11/20 04/27/21 ipratropium-albuterol 3 ml INHALATION Q4H PRN 05/11/20 04/27/21 losartan 100 mg PO DAILY 05/11/20 04/27/21 multivitamin 1 tab PO DAILY 05/11/20 04/27/21 naloxone 4 mg INTRANASAL Q2-3M PRN 05/11/20 04/27/21 Eliquis 5 mg PO BID 03/14/21 04/27/21 L. acidophilus,casei,rhamnosus 1 cap PO DAILY #30 cap 03/16/21 04/27/21 [Bio-K plus] alum-mag hydroxide-simeth [Mag-Al 30 ml PO TID PRN #3000 ml 03/16/21 04/27/21 Plus] lidocaine HCl [Lidocaine Viscous] 15 ml PO TID PRN #100 ml 03/16/21 04/27/21 sucralfate 1 g PO AC & HS #120 tab 03/16/21 04/27/21 famotidine 40 mg PO DAILY 04/27/21 04/27/21 sulfamethoxazole-trimethoprim 1 tab PO BID 04/27/21 04/27/21 Previous Rx's Medication Instructions Recorded L. acidophilus,casei,rhamnosus 1 cap PO DAILY #30 cap 03/16/21 [Bio-K plus] alum-mag hydroxide-simeth [Mag-Al 30 ml PO TID PRN #3000 ml 03/16/21 Plus] lidocaine HCl [Lidocaine Viscous] 15 ml PO TID PRN #100 ml 03/16/21 sucralfate 1 g PO AC & HS #120 tab 03/16/21 Allergies Allergy/AdvReac Type Severity Reaction Status Date / Time bupropion HCl Allergy Unverified 03/14/21 14:51 [From Wellbutrin] infliximab [From Remicade] Allergy Unverified 03/14/21 14:51 Iodinated Contrast Media Allergy Unverified 03/14/21 14:51 morphine sulfate Allergy Unverified 03/14/21 14:51 [From MS Contin] rituximab [From Rituxan] Allergy Unverified 03/14/21 14:51 Sulfa (Sulfonamide Allergy Unverified 04/27/21 10:51 Antibiotics) sulfisoxazole Allergy Unverified 03/14/21 14:51 vancomycin Allergy Unverified 03/14/21 14:51 General Stated Complaint: HeadInjury JENNY: 2 Review of Systems Narrative: Review of systems obtained x7 aside from where indicated in HPI [facility] Medical History Anticoagulant long-term use Chronic antibiotic suppression Chronic restrictive lung disease Continuous RUQ abdominal pain Current chronic use of systemic steroids Dilated bile duct Hypertension On home oxygen therapy Pulmonary nodule Restrictive pattern present on pulmonary function testing Rheumatoid arthritis chronic suppression on Arava and prednisone Social History Smoking/Tobacco Use Status: Never Smoking risk assessment performed?: Yes Alcohol Intake: never Drug use: Never Substance use type: does not use Do you feel safe at home: Yes Do you feel safe in your relationship?: Yes Exam Const General: cooperative and no acute distress Orientation: alert and oriented x3 HENMT Other: Mild tenderness with palpation to left occipital region, no tenderness to parietal or temporal region, no hemotympanum Eyes Pupils: PERRL Neck Other: No midline cervical spine tenderness, mild left paraspinal tenderness Resp Effort & Inspection: normal respiratory effort Auscultation: clear to auscultation bilaterally Cardio Rate: regular rate Rhythm: regular rhythm Skin Other: No visible evidence of trauma, no hematoma Neuro General: patient alert and patient oriented x3 Cranial Nerves: CN's II-XI intact bilaterally Cognition: normal cognition Speech: speech normal Gait: normal gait Sensory Exam: no sensory deficits noted Other: GCS 15 Course Vital Signs Vital signs: Vital Signs Temperature 36.8 C 04/27/21 10:47 Pulse 112 H 04/27/21 10:47 Respiratory Rate 20 04/27/21 10:47 Blood Pressure 156/104 H 04/27/21 10:47 Pulse Oximetry 98 04/27/21 10:47 Temperature 36.8 C 04/27/21 10:47 Temperature Source Skin 04/27/21 10:47 Pulse 112 H 04/27/21 10:47 Respiratory Rate 20 04/27/21 10:47 Blood Pressure 156/104 H 04/27/21 10:47 Blood Pressure Position Sitting 04/27/21 10:47 Pulse Oximetry 98 04/27/21 10:47 Oxygen Delivery Method Nasal Cannula 04/27/21 10:47 Oxygen Flow Rate 2 04/27/21 10:47 Pain Level 7 04/27/21 10:47
--- NOTE | 2021-04-27 11:18 | DI.CT_ITS ---
Exam(s) CT HEAD WO EXAM: CT HEAD WO CLINICAL HISTORY: head injury on eliquis. TECHNIQUE: Imaging Protocol: Axial computed tomography images with coronal and sagittal reformatted images were created and reviewed COMPARISON: CT CT HEAD WO from 05/17/2020 FINDINGS: Ventricles and Extra axial spaces: Normal in size and morphology for the patient's age. Hemorrhage: None. Cerebral parenchyma: Normal. Midline shift: None. Brainstem/Cerebellum: Normal. Calvarium: No change in small show rounded projection from the right frontal bone. No significant ma ss effect on the adjacent brain. Visualized Paranasal sinuses/Mastoids: Mucous retention cyst floor of the left maxillary sinus. Soft Tissues: Unremarkable. IMPRESSION: No acute intracranial process. RADIATION DOSE DELIVERED: 685.31mGy.cm Total DLP DATA REPOSITORY: All CT scans at this facility are submitted to the National Radiology Data Registry (NRDR) Dose Index Registry (DIR) with the [employer] ([employer]). RADIATION OPTIMIZATION: All CT scans at this facility use at least one of these dose optimization te chniques: automated exposure control; mA and/or kV adjustment per patient size (includes targeted exa ms where dose is matched to clinical indication); or iterative reconstruction.
[2021-04-27 11:30] VITALS: RESP 16
[2021-04-27 12:01] VITALS: BP 158/84; PULSE 101; PULSE 102
[2021-04-27 12:09] VITALS: TEMP 36.8
[2021-04-27] MEDS: Metoclopramide 10 MG TAB 5 MG PO (12:13)
[2021-04-27] MEDS: Metoclopramide 10 MG TAB (12:14)
== END 2021-04-27 12:19 | disposition home or self-care (01) ==
PROVIDERS: Emergency Provider Physician Assistant; PCP Family Medicine
DX: S09.8XXA Other specified injuries of head, initial encounter (principal); W22.09XA Striking against other stationary object, initial encounter
CPT/HCPCS: 36416; 82962; 99284; 70450; 99283

== ENCOUNTER 2021-04-29 09:32 | Emergency (ER) | payer MEDICAID, SELFPAY ==
[2021-04-29 09:38] VITALS: BP 156/60; PULSE 115; RESP 16; TEMP 36.5; O2SAT 99
--- NOTE | 2021-04-29 09:38 | W.ED.GENAD ---
Discharge Plan Disposition Patient Disposition: HOME Condition: Improving Discharge Details Clinical Impression: Post-concussion headache, Cervical myofascial strain Primary Care Provider: Curt Cassidy ED Provider: Shania Gordon Home Meds and New Rx's Prescriptions: New methocarbamol 500 mg tablet 500 mg PO Q6H PRN (Reason: muscle spasm) Qty: 14 RF: 0 Continued doxepin 50 MG capsule 50 - 100 mg PO QHS PRNRF: 0 methadone 10 MG tablet 20 mg PO HS RF: 0 prednisone 5 MG tablet 2.5 mg PO DAILY RF: 0 leflunomide [Arava] 20 MG tablet 20 mg PO DAILY RF: 0 calcium carbonate [Tums Ultra] 400 MG tablet,chewable 800 mg PO TID RF: 0 diphenhydramine HCl 25 MG capsule 25 mg PO Q4H PRN PRNRF: 0 gabapentin 300 MG capsule 600 mg PO TID RF: 0 ergocalciferol (vitamin D2) [Vitamin D2] 50,000 UNITS capsule 50,000 units PO DIRECTED RF: 0 levothyroxine [Synthroid] 112 MCG tablet 175 mcg PO DAILY RF: 0 risedronate [Actonel] 35 MG tablet 35 mg PO DIRECTED RF: 0 Eliquis 5 mg tablet 5 mg PO BID RF: 0 Bio-K plus 50 billion cell capsule,delayed release(DR/EC) 1 cap PO DAILY Qty: 30 RF: 0 sucralfate 1 gram Tablet 1 g PO AC & HS Qty: 120 RF: 0 lidocaine HCl [Lidocaine Viscous] 2 % Solution 15 ml PO TID PRN (Reason: acid reflux) Qty: 100 RF: 0 alum-mag hydroxide-simeth [Mag-Al Plus] 200-200-20 mg/5 mL Suspension 30 ml PO TID PRN (Reason: indigestion) Qty: 3000 RF: 0 multivitamin Tablet 1 tab PO DAILY RF: 0 ipratropium-albuterol 0.5 mg-3 mg(2.5 mg base)/3 mL Solution For Nebulization 3 ml INHALATION Q4H PRNRF: 0 amlodipine 2.5 mg Tablet 2.5 mg PO DAILY RF: 0 acyclovir 800 mg Tablet 800 mg PO DAILY RF: 0 bumetanide 0.5 mg Tablet 0.5 mg PO DAILY RF: 0 docusate sodium [Colace] 100 mg Capsule 200 mg PO DAILY RF: 0 albuterol sulfate [ProAir HFA] 90 mcg/actuation Hfa Aerosol Inhaler 2 puff INHALATION 6XD RF: 0 losartan 100 mg Tablet 100 mg PO DAILY RF: 0 naloxone 4 mg/actuation [place],Non-Aerosol 4 mg INTRANASAL Q2-3M PRNRF: 0 famotidine 40 mg tablet 40 mg PO DAILY RF: 0 sulfamethoxazole-trimethoprim 800-160 mg tablet 1 tab PO BID RF: 0 Discharge Instructions Instructions: Cervical Strain (ED), Post Concussion Syndrome (ED), Chronic Post Traumatic Headache (ED) Additional Instructions: Drink plenty of fluids and get plenty of rest. Take Tylenol as needed directed for pain. Your muscle relaxer prescription has been sent electronically to your pharmacy. Call the pharmacy to make sure your prescription is ready before pickup. Take the prescription as directed. Follow-up with your primary care doctor in 1 week. Return to the emergency department with any worsening or new concerning symptoms. 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 She had a negative head CT here 2 days ago. Heart rate 115. EKG notes a rate of 110, sinus, no STEMI, nondiagnostic. History and presentation not consistent with PE and patient is already anticoagulated for this will be unlikely. Her sensation of feeling hot with tachycardia in the left side of her chest has occurred only since her vaccinations and question whether this is a potential lingering side effect. Her left-sided neck pain is reproducible with head movement. Discussed with patient that postconcussive symptoms can last anywhere from hours to several months post injury. She has no focal deficits. Will place an IV, bolus IV fluids, screening labs, IV Tylenol and Decadron, obtain repeat CT head and chest x-ray. Delay in obtaining meds and fluids due to inadequate IV. Labs reviewed. Normal white blood cell count. Troponin negative. Imaging reviewed and unremarkable. CT head and chest x-ray negative for acute findings. Patient reassessed and she states she feels better. Heart rate mid to high 90s. Patient feels good to go home. We will send with a prescription for methocarbamol to her pharmacy. She is advised to get plenty of rest, alternate ice and heat to her neck, take Tylenol as needed. Medical Records Medical records reviewed: Yes I reviewed the patient's medical records. ECG Data Attestation: I personally reviewed and interpreted this ECG (s) as follows: Interpretation: Rate of 110, sinus, no STEMI, nondiagnostic. HPI General Mode of arrival: ambulatory. Date/Time Provider Initiated Documentation: 04/29/21 09:33. Limitations to Documentation: no limitations. Information obtained by: patient. 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 Patient was seen here 2 days ago following her head injury in which she hit the back of her head on a wooden cabinet in the bathroom at home. She had a negative head CT at that time and was discharged home. She states she has continual left-sided headache now radiating down the left side of her neck since then. She admits to nausea but denies any blurry vision, shortness of breath, dizziness, or vomiting. She also relates that she is almost 2 weeks out from her second [place] vaccine and has had intermittent sensation of feeling hot on the left side of her chest after her vaccine. She states after her first vaccine, she had a sensation of fast heart rate and feeling hot in the left side of her chest which lasted approximately 10 minutes and then resolved. She states after second vaccine she had an episode which lasted approximately 30 minutes and then resolved. She states she has had intermittent episodes of the sensation of feeling hot on the left side of her chest since then. She denies any at present. She admits that there possibly is a sensation of pain with this but only when asked. She mainly describes a sensation of a hot feeling . She states on her ED visit 2 days ago her heart rate was noted to be fast as well as today. Related Data Home Medications Medication Instructions Recorded Confirmed calcium carbonate [Tums Ultra] 800 mg PO TID 05/01/16 04/29/21 diphenhydramine HCl 25 mg PO Q4H PRN PRN 05/01/16 04/29/21 doxepin 50 - 100 mg PO QHS PRN 05/01/16 04/29/21 ergocalciferol (vitamin D2) 50,000 units PO DIRECTED 05/01/16 04/29/21 [Vitamin D2] gabapentin 600 mg PO TID 05/01/16 04/29/21 leflunomide [Arava] 20 mg PO DAILY 05/01/16 04/29/21 levothyroxine [Synthroid] 175 mcg PO DAILY 05/01/16 04/29/21 methadone 20 mg PO HS 05/01/16 04/29/21 prednisone 2.5 mg PO DAILY 05/01/16 04/29/21 risedronate [Actonel] 35 mg PO DIRECTED 05/01/16 04/29/21 acyclovir 800 mg PO DAILY 05/11/20 04/29/21 albuterol sulfate [ProAir HFA] 2 puff INHALATION 6XD 05/11/20 04/29/21 amlodipine 2.5 mg PO DAILY 05/11/20 04/29/21 bumetanide 0.5 mg PO DAILY 05/11/20 04/29/21 docusate sodium [Colace] 200 mg PO DAILY 05/11/20 04/29/21 ipratropium-albuterol 3 ml INHALATION Q4H PRN 05/11/20 04/29/21 losartan 100 mg PO DAILY 05/11/20 04/29/21 multivitamin 1 tab PO DAILY 05/11/20 04/29/21 naloxone 4 mg INTRANASAL Q2-3M PRN 05/11/20 04/29/21 Eliquis 5 mg PO BID 03/14/21 04/29/21 Bio-K plus 1 cap PO DAILY #30 cap 03/16/21 04/29/21 alum-mag hydroxide-simeth [Mag-Al 30 ml PO TID PRN #3000 ml 03/16/21 04/29/21 Plus] lidocaine HCl [Lidocaine Viscous] 15 ml PO TID PRN #100 ml 03/16/21 04/29/21 sucralfate 1 g PO AC & HS #120 tab 03/16/21 04/29/21 famotidine 40 mg PO DAILY 04/27/21 04/29/21 sulfamethoxazole-trimethoprim 1 tab PO BID 04/27/21 04/29/21 methocarbamol 500 mg PO Q6H PRN #14 tab 04/29/21 Previous Rx's Medication Instructions Recorded Bio-K plus 1 cap PO DAILY #30 cap 03/16/21 alum-mag hydroxide-simeth [Mag-Al 30 ml PO TID PRN #3000 ml 03/16/21 Plus] lidocaine HCl [Lidocaine Viscous] 15 ml PO TID PRN #100 ml 03/16/21 sucralfate 1 g PO AC & HS #120 tab 03/16/21 methocarbamol 500 mg PO Q6H PRN #14 tab 04/29/21 Allergies Allergy/AdvReac Type Severity Reaction Status Date / Time bupropion HCl Allergy Unverified 04/29/21 09:43 [From Wellbutrin] infliximab [From Remicade] Allergy Unverified 04/29/21 09:43 Iodinated Contrast Media Allergy Unverified 04/29/21 09:43 morphine sulfate Allergy Unverified 04/29/21 09:43 [From MS Contin] rituximab [From Rituxan] Allergy Unverified 04/29/21 09:43 Sulfa (Sulfonamide Allergy Unverified 04/29/21 09:43 Antibiotics) sulfisoxazole Allergy Unverified 04/29/21 09:43 vancomycin Allergy Unverified 04/29/21 09:43 General JENNY: 2 Review of Systems All systems reviewed & are unremarkable except as noted in HPI and below Constitutional Constitutional: Reports as per HPI, Denies chills, Denies fever(s) and Reports headache(s) Eyes Eyes: Denies blurry vision ENT Ears, Nose, Mouth, and Throat: Denies dizziness, Reports headache(s), Reports neck pain, Denies sore throat and Denies throat swelling Cardiovascular Cardiovascular: Denies chest pain and Denies dyspnea Respiratory Respiratory: Denies cough and Denies dyspnea Gastrointestinal Gastrointestinal: Denies abdominal pain, Denies diarrhea and Denies vomiting Genitourinary Genitourinary: Denies hematuria and Denies dysuria Musculoskeletal Musculoskeletal: Denies back pain, Reports neck pain and Denies numbness Integumentary/Breasts Skin/Breast: Denies lesions and Denies rash Neurologic Neurologic: Denies dizziness, Reports headache(s), Denies localized weakness and Denies numbness Allergic/Immunologic Allergic/Immunologic: Denies throat swelling [facility] Medical History Anticoagulant long-term use Chronic antibiotic suppression Chronic restrictive lung disease Continuous RUQ abdominal pain Current chronic use of systemic steroids Dilated bile duct Hypertension On home oxygen therapy Pulmonary nodule Restrictive pattern present on pulmonary function testing Rheumatoid arthritis chronic suppression on Arava and prednisone Social History Smoking/Tobacco Use Status: Never Smoking risk assessment performed?: Yes Alcohol Intake: never Drug use: Never Substance use type: does not use Do you feel safe at home: Yes Do you feel safe in your relationship?: Yes Exam Const General: cooperative and no acute distress HENMT Head: normal to inspection Face and sinus: normal facial exam Eyes General: appearance normal, both eyes and all related structures Pupils: PERRL EOM: EOM intact bilaterally Neck Neck: normal visual inspection and No submandibular swelling Lymphatic: no lymphadenopathy noted Chest Chest: normal inspection of the chest and no tenderness Resp Effort & Inspection: normal respiratory effort and able to speak in complete sentences Auscultation: clear to auscultation bilaterally Cardio Rate: regular rate Rhythm: regular rhythm GI Inspection: normal to inspection Palpation: soft, not firm, not rigid and nontender Auscultation: normal bowel sounds Back/Spine/Pelvis Cervical Spine: cervical muscular tenderness (Left paraspinal), pain with cervical ROM (Left rotation and side bending) and No cervical spinal tenderness Thoracic/Lumbar Spine: thoracic and lumbar spine normal to inspection Pelvis: no pain with anterior-posterior compression Skin General skin exam: no rashes or lesions noted Neuro General: patient alert, patient awake and patient oriented x3 Cranial Nerves: CN's II-XI intact bilaterally Cognition: normal cognition Speech: speech normal Motor: muscle tone normal throughout and strength 5/5 throughout Sensory Exam: no sensory deficits noted Extrem Other: Contraction with flexion and extension deformity of bilateral fingers consistent with RA. Psych Appearance: grossly normal Mental Status: mental status grossly normal Speech and Movement: speech and movement normal Affect: normal affect
--- NOTE | 2021-04-29 10:15 | RT.EKG_ITS ---
APPROVED REPORT Exam: Resting ECG Reason for Exam: chest hot Patient Location: E HR:110 bpm ECG Measurements Heart Rate 110 AXIS MN 184 P 77 QRSd 114 QRS 2 QT 340 T 33 QTc 459 Conclusion Sinus tachycardia...rate> 99 Anterior infarct, old...Q >40mS, abnormal ST-T, V2-V5. No STEMI. I have reviewed and interpreted ECG and agree with software generated interpretation.
--- NOTE | 2021-04-29 10:30 | DI.RAD_ITS ---
Exam(s) XR CHEST 2V PA LATERAL EXAM: XR CHEST 2V PA LATERAL CLINICAL HISTORY: L chest pain, feels hot, r/o acute disease TECHNIQUE: 2D digital imaging was performed. COMPARISON: No exams were available for comparison FINDINGS: MEDIASTINUM: Normal. HEART: Normal. PULMONARY VASCULATURE: Normal. LUNGS: Clear. PLEURAL SPACE: No pleural effusion or pneumothorax. BONE:Within normal limits for the patient's age. Right shoulder arthroplasty. OTHER FINDINGS:Normal. IMPRESSION: No acute pulmonary findings. DATA REPOSITORY: RADIATION DOSE DELIVERED:
[2021-04-29 10:56] LABS: Abs Immature Grans 0.02 10^3/uL (0.0-0.06); Absolute Basophil Count 0.04 10^3/uL (0.0-0.2); Absolute Eosinophil Count 0.07 10^3/uL (0.0-0.7); Absolute Lymphocyte Count 0.83 10^3/uL (1.2-3.4); Absolute Neutrophil Count 4.66 10^3/uL (1.2-6.7); Basophils % 0.7; Eosinophils % 1.1; HCT 34.7 % (36.0-46.0); HGB 11.3 g/dL (11.2-15.7); Immature Grans % 0.3; Lymphocytes % 13.6; MCHC 32.6 % (32.0-36.0); MCV 101.5 fL (80-95); MPV 9.2 fL (8.0-11.0); Monocytes % 8.2; Neutrophils % 76.1; Nucleated RBC 0 %; Platelet Count 328 10^3/uL (130-400); RBC 3.42 10^6/uL (3.93-5.22); RDW 12.3 % (11.7-14.6); RDW-SD 45.7 fL; WBC 6.12 10^3/uL (4.4-10.8)
[2021-04-29 11:09] LABS: ALT 44 U/L (14-59); AST 26 U/L (15-37); Albumin 3.8 g/dL (3.4-5.0); Alkaline Phosphatase 109 U/L (46-116); Anion Gap 7.8 mmol/L (3-11); BUN 11 mg/dL (7-18); Bilirubin, Total 0.4 mg/dL (0.2-1.0); CO2 32.2 mmol/L (21.0-32.0); Calcium 9.3 mg/dL (8.5-10.1); Chloride 101 mmol/L (98-107); Glucose 146 mg/dL (74-106); Magnesium 1.8 mg/dL (1.8-2.4); Potassium 3.6 mmol/L (3.5-5.1); Sodium 141 mmol/L (136-145); Total Protein 7.9 g/dL (6.4-8.2); Troponin I < 0.05 ng/mL (<0.06)
--- NOTE | 2021-04-29 12:00 | DI.VRAD_ITS ---
PROCEDURE INFORMATION: Exam: CT Head Without Contrast Exam date and time: 04/29/2021 10:23 AM Age: 65 years old Clinical indication: Injury or trauma; Fall; Blunt trauma (contusions or hematomas); Sprain or strain, cervical ligaments; Prior surgery; Surgery date: 6+ months TECHNIQUE: Imaging protocol: Computed tomography of the head without contrast. COMPARISON: CT HEAD WO 04/27/2021 11:18 AM FINDINGS: Brain: No evidence of acute infarct, acute hemorrhage, or intracranial mass. Cerebral ventricles: No ventriculomegaly. Paranasal sinuses: Clear Mastoid air cells: Clear Bones/joints: No acute skull fracture Soft tissues: Unremarkable superficial soft tissues IMPRESSION: No acute intracranial process PROCEDURE INFORMATION: Exam: CT Cervical Spine Without Contrast Exam date and time: 04/29/2021 10:23 AM Age: 65 years old Clinical indication: Injury or trauma; Fall; Blunt trauma (contusions or hematomas); Sprain or strain, cervical ligaments; Prior surgery; Surgery date: 6+ months TECHNIQUE: Imaging protocol: Computed tomography images of the cervical spine without contrast. COMPARISON: CT HEAD WO 04/27/2021 11:18 AM FINDINGS: Vertebrae: Cervical vertebral body heights well maintained. Alignment is well preserved without significant listhesis. Reversal of the normal lordotic curvature may be positional. Bony degenerative changes are [id number]. Surgical changes C1-C2 posteriorly. Soft tissues: Unremarkable superficial soft tissues. Thyroid: Calcification right thyroid lobe. Lungs: Lung apices are unremarkable IMPRESSION: 1. No acute fracture or dislocation of the cervical spine. 2. Calcification right thyroid lobe. Thyroid ultrasound recommended when clinically appropriate. Dictated and Authenticated by: Tim Sanchez MD. Ordering:SARA Jauregui MD
[2021-04-29] MEDS: Normal Saline 500 ML IV (12:08)
[2021-04-29] MEDS: ACETAMINOPHEN 1,000 MG/100 ML BTL 400 MG IVPB (12:08)
[2021-04-29] MEDS: Dexamethasone 10 MG/ML VIAL IVP (12:08)
[2021-04-29] MEDS: Methocarbamol 500 MG TAB PO (12:08)
--- NOTE | 2021-04-29 12:14 | DI.VRAD_ITS ---
PROCEDURE INFORMATION: Exam: XR Chest Exam date and time: 04/29/2021 10:37 AM Age: 65 years old Clinical indication: Other: Chest pain left TECHNIQUE: Imaging protocol: XR of the chest. Views: 2 views. COMPARISON: CR XR [place]LE RT 05/11/2020 12:19 PM FINDINGS: Lungs: Unremarkable. No consolidation. Pleural spaces: Unremarkable. No pleural effusion. No pneumothorax. Heart/Mediastinum: Unremarkable. No cardiomegaly. Vasculature: Aortic calcifications. Bones/joints: Right shoulder arthroplasty. Degenerative arthritis spine and left shoulder. IMPRESSION: No acute findings Dictated and Authenticated by: Imelda Garcia MD. Ordering:SARA Jauregui MD
[2021-04-29 12:21] VITALS: BP 113/55; PULSE 95; RESP 16; O2SAT 98
--- NOTE | 2021-04-29 12:21 | DI.CT_ITS ---
Exam(s) CT HEAD CERVICAL SPINE WO EXAM: CT HEAD CERVICAL SPINE WO CLINICAL HISTORY: head injury L side of head. TECHNIQUE: Imaging Protocol: Axial computed tomography images with coronal and sagittal reformatted images were created and reviewed COMPARISON: CT CT HEAD WO from 04/27/2021 FINDINGS: CT Head: Ventricles and Extra axial spaces: Normal in size and morphology for the patient's age. Hemorrhage: None. Cerebral parenchyma: Normal. Midline shift: None. Brainstem/Cerebellum: Normal. Calvarium: Normal. Visualized Paranasal sinuses/Mastoids: Clear. Soft Tissues: Unremarkable. CT Cervical Spine: Bones: No acute fracture or subluxation. Degenerative changes are present in the cervical spine. Pos tsurgical changes are seen at C1-C2. There is straightening of the normal cervical lordosis. This m ay be due to patient position or muscle spasm. Soft Tissues: Unremarkable. Thyroid gland: Calcification in the right thyroid lobe. Thyroid ultrasound may be obtained for furth er evaluation when clinically appropriate. Lung Apices: Clear. IMPRESSION: 1. No acute intracranial process. 2. No acute fracture or subluxation in the cervical spine. RADIATION DOSE DELIVERED: 1,280.2mGy.cm Total DLP DATA REPOSITORY: All CT scans at this facility are submitted to the National Radiology Data Registry (NRDR) Dose Index Registry (DIR) with the [employer] ([employer]). RADIATION OPTIMIZATION: All CT scans at this facility use at least one of these dose optimization te chniques: automated exposure control; mA and/or kV adjustment per patient size (includes targeted exa ms where dose is matched to clinical indication); or iterative reconstruction.
[2021-04-29 12:31] VITALS: BP 111/56; PULSE 90; O2SAT 100
== END 2021-04-29 13:34 | disposition home or self-care (01) ==
PROVIDERS: Emergency Provider Physician Assistant; PCP Family Medicine
DX: F07.81 Postconcussional syndrome (principal); G44.309 Post-traumatic headache, unspecified, not intractable; S16.1XXA Strain of muscle, fascia and tendon at neck level, initial encounter; W22.09XA Striking against other stationary object, initial encounter; R00.0 Tachycardia, unspecified
CPT/HCPCS: 36415; 80053; 93005; 96361; 96365; 96375; 99285; 70450; 71046; 72125; 83735; 84484; 85025; 93010; J0131; J1100

== ENCOUNTER 2021-06-19 02:35 | Outpatient (CLI) | payer MEDICAID, SELFPAY ==
[2021-06-19 11:23] LABS: TSH 0.03 uIU/mL (0.36-3.74)
== END 2021-06-19 02:36 | disposition home or self-care (01) ==
LOC: LBO 02:35
PROVIDERS: PCP Family Medicine; Visit Provider Family Medicine
DX: E03.9 Hypothyroidism, unspecified (principal)
CPT/HCPCS: 36415; 84443; 85610

== ENCOUNTER 2021-06-26 02:11 | Outpatient (CLI) | payer MEDICAID, SELFPAY ==
--- NOTE | 2021-06-26 | DI.US_ITS ---
Exam(s) US THYROID EXAM: US THYROID CLINICAL HISTORY: ABNL THYROID FUNCTION TEST,R94.6,CALCIFICATION NOTED INCIDENTAL ON CT AFTER. TECHNIQUE: Ultrasound thyroid performed using standard protocol. COMPARISON: CT CT HEAD CERVICAL SPINE WO from 04/29/[address] HEAD CERVICAL SPINE WO from 04/29/2021 FINDINGS: ISTHMUS: 2 mm RIGHT LOBE: Size: 2.5 x 0.7 x 0.8 cm cm Echogenicity: Normal. Vascularity: Normal. Nodules: None. LEFT LOBE: Size: 2.5 x 0.7 x 0.8. cm Echogenicity: Normal. Vascularity: Normal. Nodules: None. OTHER FINDINGS: 3 millimeter calcification mid right lobe. Normal sized bilateral cervical lymph nod es. IMPRESSION: Both lobes of the thyroid appear mildly atrophic. 3 millimeter calcification mid thyroid. No suspic ious lesions.. DATA REPOSITORY:
== END 2021-06-26 02:31 ==
PROVIDERS: PCP Family Medicine; Visit Provider Family Medicine
DX: E03.4 Atrophy of thyroid (acquired); E07.89 Other specified disorders of thyroid; R94.6 Abnormal results of thyroid function studies
CPT/HCPCS: 76536

== ENCOUNTER 2021-07-20 03:11 | Outpatient (CLI) | payer MEDICAID, SELFPAY ==
[2021-07-20 13:06] LABS: TSH 0.28 uIU/mL (0.36-3.74)
== END 2021-07-20 03:12 | disposition home or self-care (01) ==
LOC: LOS 03:11
PROVIDERS: PCP Family Medicine; Visit Provider Family Medicine
DX: E03.9 Hypothyroidism, unspecified (principal)
CPT/HCPCS: 36415; 84443

== ENCOUNTER 2021-08-03 02:55 | Outpatient (CLI) | payer MEDICAID, SELFPAY ==
[2021-08-03 11:28] LABS: Anion Gap 5.8 mmol/L (3-11); BUN 11 mg/dL (7-18); CO2 34.2 mmol/L (21.0-32.0); CREATININE 1.1 mg/dL (0.55-1.02); Calcium 9.4 mg/dL (8.5-10.1); Chloride 101 mmol/L (98-107); Estimated GFR 50.17 (mL/min/1.73m2); Glucose 114 mg/dL (74-106); Potassium 3.9 mmol/L (3.5-5.1); Sodium 141 mmol/L (136-145)
== END 2021-08-03 02:56 | disposition home or self-care (01) ==
LOC: LBO 02:55
PROVIDERS: PCP Family Medicine; Visit Provider Family Medicine
DX: R60.1 Generalized edema (principal)
CPT/HCPCS: 36415; 80048

== ENCOUNTER 2021-08-04 17:17 | Outpatient (REF) | payer MEDICAID, SELFPAY ==
[2021-08-04 18:11] LABS: Iron 120 ug/dL (50-170); Total Iron Binding Capacity 326 ug/dL (250-450); Transferrin Sat 37 % (15-50)
== END 2021-08-04 17:18 | disposition home or self-care (01) ==
LOC: LBN 17:17
PROVIDERS: PCP Family Medicine; Visit Provider Family Medicine
DX: E78.5 Hyperlipidemia, unspecified (principal); D75.89 Other specified diseases of blood and blood-forming organs
CPT/HCPCS: 83540; 83550

== ENCOUNTER 2021-09-07 02:44 | Outpatient (CLI) | payer MEDICAID, SELFPAY ==
[2021-09-07 10:40] LABS: Abs Immature Grans 0.03 10^3/uL (0.0-0.06); Absolute Basophil Count 0.03 10^3/uL (0.0-0.2); Absolute Eosinophil Count 0.15 10^3/uL (0.0-0.7); Absolute Lymphocyte Count 1.16 10^3/uL (1.2-3.4); Absolute Monocyte Count 0.96 10^3/uL (0.1-0.8); Absolute Neutrophil Count 4.74 10^3/uL (1.2-6.7); Basophils % 0.4; Eosinophils % 2.1; HGB 9.8 g/dL (11.2-15.7); Immature Grans % 0.4; Lymphocytes % 16.4; MCHC 31.6 % (32.0-36.0); MCV 98.1 fL (80-95); MPV 9.4 fL (8.0-11.0); Monocytes % 13.6; Neutrophils % 67.1; Nucleated RBC 0 %; Platelet Count 305 10^3/uL (130-400); RBC 3.16 10^6/uL (3.93-5.22); RDW-SD 47.2 fL; WBC 7.07 10^3/uL (4.4-10.8)
[2021-09-07 12:31] LABS: ALT 67 U/L (14-59); AST 41 U/L (15-37); Albumin 3.9 g/dL (3.4-5.0); Alkaline Phosphatase 114 U/L (46-116); Anion Gap 7.9 mmol/L (3-11); BUN 17 mg/dL (7-18); Bilirubin, Total 0.5 mg/dL (0.2-1.0); CO2 33.1 mmol/L (21.0-32.0); CREATININE 1.1 mg/dL (0.55-1.02); Calcium 9.3 mg/dL (8.5-10.1); Chloride 99 mmol/L (98-107); Estimated GFR 50.17 (mL/min/1.73m2); Glucose 108 mg/dL (74-106); LDL CHOLESTEROL 67 mg/dL (<100); Sodium 140 mmol/L (136-145); TSH 0.07 uIU/mL (0.36-3.74); Total Protein 7.7 g/dL (6.4-8.2)
[2021-09-08 11:14] LABS: Hepatitis A Antibody IgM Negative (Negative); Hepatitis B Core Antibody Negative (Negative); Hepatitis B surface Ag Negative (Negative); Hepatitis C Ab w Rflx HCV PCR Negative (Negative)
== END 2021-09-07 02:45 | disposition home or self-care (01) ==
LOC: LBO 02:44
PROVIDERS: PCP Family Medicine; Visit Provider Family Medicine
DX: R74.01 Elevation of levels of liver transaminase levels (principal); R94.6 Abnormal results of thyroid function studies; M06.8A Other specified rheumatoid arthritis, other specified site; E78.5 Hyperlipidemia, unspecified; Z11.59 Encounter for screening for other viral diseases
CPT/HCPCS: 36415; 80053; 83721; 86704; 86709; 86803; 87340; 84443; 85025

== ENCOUNTER 2021-12-06 02:18 | Outpatient (CLI) | payer MEDICAID, SELFPAY ==
[2021-12-06 10:49] LABS: Abs Immature Grans 0.01 10^3/uL (0.0-0.06); Absolute Basophil Count 0.01 10^3/uL (0.0-0.2); Absolute Eosinophil Count 0.08 10^3/uL (0.0-0.7); Absolute Lymphocyte Count 0.89 10^3/uL (1.2-3.4); Absolute Monocyte Count 0.54 10^3/uL (0.1-0.8); Absolute Neutrophil Count 3.41 10^3/uL (1.2-6.7); Basophils % 0.2; Eosinophils % 1.6; HCT 32.5 % (36.0-46.0); HGB 10.5 g/dL (11.2-15.7); Immature Grans % 0.2; MCH 31.8 pg (27.0-33.0); MCHC 32.3 % (32.0-36.0); MCV 98.5 fL (80-95); MPV 9.2 fL (8.0-11.0); Monocytes % 10.9; Neutrophils % 69.1; Nucleated RBC 0 %; Platelet Count 261 10^3/uL (130-400); RDW 12.9 % (11.7-14.6); RDW-SD 46.7 fL; WBC 4.94 10^3/uL (4.4-10.8)
[2021-12-06 12:21] LABS: Iron 81 ug/dL (50-170); Total Iron Binding Capacity 279 ug/dL (250-450); Transferrin Sat 29 % (15-50)
[2021-12-06 12:50] LABS: ALT 79 U/L (14-59); AST 49 U/L (15-37); Alkaline Phosphatase 111 U/L (46-116); Anion Gap 8.9 mmol/L (3-11); BUN 12 mg/dL (7-18); Bilirubin, Total 0.4 mg/dL (0.2-1.0); CO2 31.1 mmol/L (21.0-32.0); Calcium 9.1 mg/dL (8.5-10.1); Chloride 96 mmol/L (98-107); Estimated GFR 55.82 (mL/min/1.73m2); Ferritin 175 ng/mL (8-252); Glucose 110 mg/dL (74-106); Potassium 3.7 mmol/L (3.5-5.1); Sodium 136 mmol/L (136-145); TSH 0.06 uIU/mL (0.36-3.74); Total Protein 7.6 g/dL (6.4-8.2); Vitamin B12 1913 pg/mL (193-986)
[2021-12-06 12:51] LABS: Folate > 20.0 ng/mL (8.6-20.0)
== END 2021-12-06 02:19 | disposition home or self-care (01) ==
LOC: LBO 02:19
PROVIDERS: PCP Family Medicine; Visit Provider Family Medicine
DX: E03.9 Hypothyroidism, unspecified (principal); I10 Essential (primary) hypertension; D53.9 Nutritional anemia, unspecified; R74.01 Elevation of levels of liver transaminase levels
CPT/HCPCS: 36415; 80053; 82607; 82728; 82746; 83540; 83550; 84443; 85025

== ENCOUNTER 2022-01-08 02:50 | Outpatient (CLI) | payer MEDICAID, SELFPAY ==
[2022-01-08 12:42] LABS: Abs Immature Grans 0.02 10^3/uL (0.0-0.06); Absolute Basophil Count 0.03 10^3/uL (0.0-0.2); Absolute Eosinophil Count 0.08 10^3/uL (0.0-0.7); Absolute Lymphocyte Count 1.31 10^3/uL (1.2-3.4); Absolute Monocyte Count 0.73 10^3/uL (0.1-0.8); Absolute Neutrophil Count 3.44 10^3/uL (1.2-6.7); Basophils % 0.5; Eosinophils % 1.4; HCT 31.1 % (36.0-46.0); Immature Grans % 0.4; Lymphocytes % 23.4; MCH 32.4 pg (27.0-33.0); MCHC 32.2 % (32.0-36.0); MCV 100.6 fL (80-95); MPV 9.2 fL (8.0-11.0); Neutrophils % 61.3; Nucleated RBC 0 %; Platelet Count 272 10^3/uL (130-400); RBC 3.09 10^6/uL (3.93-5.22); RDW 12.6 % (11.7-14.6); RDW-SD 46.5 fL; WBC 5.61 10^3/uL (4.4-10.8)
[2022-01-08 13:58] LABS: ALT 75 U/L (14-59); AST 46 U/L (15-37); Albumin 3.8 g/dL (3.4-5.0); Alkaline Phosphatase 110 U/L (46-116); Anion Gap 5.8 mmol/L (3-11); BUN 16 mg/dL (7-18); Bilirubin, Total 0.4 mg/dL (0.2-1.0); CO2 31.2 mmol/L (21.0-32.0); CREATININE 0.9 mg/dL (0.55-1.02); Calcium 9.1 mg/dL (8.5-10.1); Chloride 102 mmol/L (98-107); Glucose 106 mg/dL (74-106); Potassium 4.3 mmol/L (3.5-5.1); Sodium 139 mmol/L (136-145); TSH 0.45 uIU/mL (0.36-3.74); Total Protein 7.4 g/dL (6.4-8.2)
[2022-01-08 14:01] LABS: Folate > 20.0 ng/mL (8.6-20.0)
[2022-01-09 13:33] LABS: Albumin 58.1 % (55.8-66.1); Total Protein 7.2 g/dL (6.3-8.2)
[2022-01-09 14:31] LABS: ANA Interpretation Positive (Negative); ANA Titer Pattern 1:320 Homogeneous
[2022-01-10 09:21] LABS: Hepatitis B Surface Ag Negative (Negative)
[2022-01-10 14:50] LABS: Albumin, Urine % 42.3 %; Globulins, Urine % 57.7 %; Immunotyping, Urine (See Note); Total Protein Urine 11 mg/dL (See Note)
== END 2022-01-08 02:51 | disposition home or self-care (01) ==
LOC: LBO 02:50
PROVIDERS: PCP Family Medicine; Visit Provider Family Medicine
DX: E03.9 Hypothyroidism, unspecified (principal); D53.9 Nutritional anemia, unspecified; R74.01 Elevation of levels of liver transaminase levels; I10 Essential (primary) hypertension; L02.414 Cutaneous abscess of left upper limb; M86.632 Other chronic osteomyelitis, left radius and ulna; R60.1 Generalized edema
CPT/HCPCS: 36415; 80053; 82390; 84156; 84166; 86335; 87340; 82746; 84165; 84443; 85025; 86038

== ENCOUNTER 2022-05-24 03:58 | Outpatient (CLI) | payer MEDICAID, SELFPAY ==
[2022-05-24 11:32] LABS: Abs Immature Grans 0.01 10^3/uL (0.0-0.06); Absolute Basophil Count 0.03 10^3/uL (0.0-0.2); Absolute Eosinophil Count 0.05 10^3/uL (0.0-0.7); Absolute Lymphocyte Count 1.18 10^3/uL (1.2-3.4); Absolute Monocyte Count 0.77 10^3/uL (0.1-0.8); Basophils % 0.5; Eosinophils % 0.9; HCT 33.4 % (36.0-46.0); HGB 10.9 g/dL (11.2-15.7); Immature Grans % 0.2; Lymphocytes % 20.2; MCH 32.4 pg (27.0-33.0); MCHC 32.6 % (32.0-36.0); MCV 99 fL (80-95); Monocytes % 13.2; Platelet Count 252 10^3/uL (130-400); RBC 3.36 10^6/uL (3.93-5.22); RDW-SD 44.2 fL; WBC 5.84 10^3/uL (4.4-10.8)
[2022-05-24 12:19] LABS: ALT 88 U/L (14-59); AST 56 U/L (15-37); Albumin 3.9 g/dL (3.4-5.0); Alkaline Phosphatase 96 U/L (46-116); Anion Gap 7.6 mmol/L (3-11); BUN 13 mg/dL (7-18); Bilirubin, Total 0.5 mg/dL (0.2-1.0); CO2 31.4 mmol/L (21.0-32.0); CREATININE 0.9 mg/dL (0.55-1.02); Calcium 9.2 mg/dL (8.5-10.1); Chloride 99 mmol/L (98-107); Glucose 100 mg/dL (74-106); Potassium 4.2 mmol/L (3.5-5.1); Sodium 138 mmol/L (136-145); TSH (W/Ref FT4) 0.34 uIU/mL (0.36-3.74); Total Protein 7.8 g/dL (6.4-8.2)
[2022-05-24 12:36] LABS: FREE T4 1.23 ng/dL (0.76-1.46)
== END 2022-05-24 03:59 | disposition home or self-care (01) ==
LOC: LBO 03:58
PROVIDERS: PCP Family Medicine; Visit Provider Family Medicine
DX: M06.9 Rheumatoid arthritis, unspecified (principal); R94.6 Abnormal results of thyroid function studies
CPT/HCPCS: 36415; 80053; 84439; 84443; 85025

== ENCOUNTER 2022-07-25 04:27 | Outpatient (CLI) | payer MEDICAID, SELFPAY ==
[2022-07-25 13:55] LABS: TSH 0.09 uIU/mL (0.36-3.74)
== END 2022-07-25 04:28 | disposition home or self-care (01) ==
LOC: LBO 04:27
PROVIDERS: PCP Family Medicine; Visit Provider Family Medicine
DX: E03.9 Hypothyroidism, unspecified (principal)
CPT/HCPCS: 36415; 84443

== ENCOUNTER → 2022-08-15 02:37 | Outpatient (CLI) | payer MEDICAID, SELFPAY ==
--- NOTE | 2022-08-15 12:30 | DI.MAMMO_ITS ---
Exam(s) MAMMO SCREENING EXAM: MAMMO SCREENING CLINICAL HISTORY: SCREENING MAMMO FOR BREAST CANCER Z12.31 TECHNIQUE: Mammograms were interpreted according to the usual protocol including computer analysis w [facility] CAD system, tomosynthesis and C-view imaging. COMPARISON: FINDINGS: The breasts are heterogeneously dense. No dominant mass or clumped microcalcification is identified in either breast. The current examination is compared with previous examinations including April 2020 and there has been no gross interval change in appearance in comparison with the prior studies. IMPRESSION: No specific evidence of malignancy at this time. Routine screening examinations are suggested at yea rly intervals due to the family history of breast carcinoma. BI-RADS Category 1 - Negative Breast Density - Category C - Heterogeneously dense
== END ==
PROVIDERS: PCP Family Medicine; Visit Provider Family Medicine
DX: Z12.31 Encounter for screening mammogram for malignant neoplasm of breast (principal); R92.8 Other abnormal and inconclusive findings on diagnostic imaging of breast
CPT/HCPCS: 77063; 77067

== ENCOUNTER 2022-09-06 03:51 | Outpatient (CLI) | payer MEDICAID, SELFPAY ==
[2022-09-06 10:04] LABS: Abs Immature Grans 0.01 10^3/uL (0.0-0.06); Absolute Basophil Count 0.04 10^3/uL (0.0-0.2); Absolute Lymphocyte Count 1.38 10^3/uL (1.2-3.4); Absolute Monocyte Count 0.87 10^3/uL (0.1-0.8); Absolute Neutrophil Count 4.09 10^3/uL (1.2-6.7); Basophils % 0.6; Eosinophils % 1.5; HCT 33.2 % (36.0-46.0); HGB 10.6 g/dL (11.2-15.7); Immature Grans % 0.2; Lymphocytes % 21.3; MCHC 31.9 % (32.0-36.0); MCV 100 fL (80-95); MPV 8.9 fL (8.0-11.0); Monocytes % 13.4; Platelet Count 268 10^3/uL (130-400); RBC 3.31 10^6/uL (3.93-5.22); RDW 12.3 % (11.7-14.6); RDW-SD 45.4 fL; WBC 6.49 10^3/uL (4.4-10.8)
[2022-09-06 10:40] LABS: ALT 82 U/L (14-59); AST 47 U/L (15-37); Albumin 3.9 g/dL (3.4-5.0); Alkaline Phosphatase 115 U/L (46-116); Anion Gap 8.6 mmol/L (3-11); BUN 16 mg/dL (7-18); Bilirubin, Total 0.5 mg/dL (0.2-1.0); CO2 31.4 mmol/L (21.0-32.0); Calcium 9.3 mg/dL (8.5-10.1); Chloride 101 mmol/L (98-107); Estimated GFR 62.91 (mL/min/1.73m2); Glucose 118 mg/dL (74-106); Sodium 141 mmol/L (136-145); TSH 0.31 uIU/mL (0.36-3.74); Total Protein 8.3 g/dL (6.4-8.2)
== END 2022-09-06 03:52 | disposition home or self-care (01) ==
LOC: LBO 03:51
PROVIDERS: PCP Family Medicine; Visit Provider Family Medicine
DX: M06.9 Rheumatoid arthritis, unspecified (principal)
CPT/HCPCS: 36415; 80053; 84443; 85025

== ENCOUNTER 2022-10-29 03:27 | Outpatient (CLI) | payer MEDICARE, MEDICAID, SELFPAY ==
[2022-10-29 12:41] LABS: ALT 83 U/L (14-59); AST 41 U/L (15-37); Albumin 3.6 g/dL (3.4-5.0); Alkaline Phosphatase 115 U/L (46-116); Anion Gap 8.1 mmol/L (3-11); BUN 12 mg/dL (7-18); Bilirubin, Total 0.3 mg/dL (0.2-1.0); CO2 29.9 mmol/L (21.0-32.0); CREATININE 0.9 mg/dL (0.55-1.02); Calcium 9.2 mg/dL (8.5-10.1); Chloride 101 mmol/L (98-107); Estimated GFR 70.95 (mL/min/1.73m2); Glucose 99 mg/dL (74-106); Sodium 139 mmol/L (136-145); Total Protein 7.8 g/dL (6.4-8.2)
[2022-10-30 10:32] LABS: IgA 95 mg/dL (85-499); IgG 1418 mg/dL (610-1616); IgM 104 mg/dL (35-242)
[2022-10-30 21:12] LABS: Tissue Transglutaminase Ab IgA <1.2 U/mL
[2022-10-31 12:44] LABS: Smooth Muscle Ab Screen Negative (Negative)
[2022-10-31 21:25] LABS: Liver/Kidney Microsome Type 1 <5.0 U
[2022-11-01 11:14] LABS: TSH 0.15 uIU/mL (0.36-3.74)
== END 2022-10-29 03:28 | disposition home or self-care (01) ==
PROVIDERS: PCP Family Medicine; Visit Provider Family Medicine
DX: E03.9 Hypothyroidism, unspecified (principal); R74.01 Elevation of levels of liver transaminase levels
CPT/HCPCS: 36415; 80053; 82784; 83516; 84443; 86255

== ENCOUNTER 2023-02-06 03:30 | Outpatient (CLI) | payer MEDICARE, MEDICAID, SELFPAY ==
[2023-02-06 13:18] LABS: ALT 72 U/L (14-59); AST 40 U/L (15-37); Albumin 3.8 g/dL (3.4-5.0); Alkaline Phosphatase 121 U/L (46-116); Anion Gap 6.8 mmol/L (3-11); BUN 13 mg/dL (7-18); Bilirubin, Total 0.4 mg/dL (0.2-1.0); CO2 32.2 mmol/L (21.0-32.0); CREATININE 1.1 mg/dL (0.55-1.02); Calcium 9.4 mg/dL (8.5-10.1); Calculated LDL 51 mg/dL (<100); Chloride 100 mmol/L (98-107); Cholesterol 155 mg/dL (<200); Estimated GFR 55.76 (mL/min/1.73m2); Glucose 110 mg/dL (74-106); HDL Cholesterol 60 mg/dL (40-60); Potassium 3.9 mmol/L (3.5-5.1); Sodium 139 mmol/L (136-145); TSH 1.15 uIU/mL (0.36-3.74); Total Protein 8.1 g/dL (6.4-8.2); Triglyceride 223 mg/dL (<150)
[2023-02-06 13:35] LABS: *AMPHETAMINES SCREEN URINE Negative (Negative); *BARBITURATES SCREEN URINE Negative (Negative); *BENZODIAZEPINES SCREEN URINE Negative (Negative); Cannabinoids THC Negative (Negative); Cocaine Screen,Urine Negative (Negative); METHADONE URINE SCREEN Negative (Negative); OPIATES URINE SCREEN Negative (Negative)
[2023-02-06 13:40] LABS: Tricyclic Antidepressants Positive (Negative)
== END 2023-02-06 03:31 | disposition home or self-care (01) ==
LOC: LBO 03:30
PROVIDERS: PCP Family Medicine; Visit Provider Family Medicine
DX: R74.01 Elevation of levels of liver transaminase levels (principal); E78.5 Hyperlipidemia, unspecified; E03.9 Hypothyroidism, unspecified; Z79.891 Long term (current) use of opiate analgesic
CPT/HCPCS: 36415; 80053; 80061; 80307; 84443

== ENCOUNTER 2023-02-07 10:49 | Emergency (ER) | payer MEDICARE, MEDICAID, SELFPAY ==
[2023-02-07 10:51] VITALS: BP 161/71; PULSE 114; RESP 18; TEMP 37.1; O2SAT 98
--- NOTE | 2023-02-07 11:15 | DI.RAD_ITS ---
Exam(s) XR CHEST 2V PA LATERAL EXAM: XR CHEST 2V PA LATERAL CLINICAL HISTORY: weakness TECHNIQUE: 2D digital imaging was performed of the chest. Two images were obtained. PA and lateral views were obtained. COMPARISON: CR,XR XR CHEST 2V PA LATERAL from 04/29/2021 FINDINGS: MEDIASTINUM: Normal. HEART: Normal. PULMONARY VASCULATURE: Normal. LUNGS: Clear. PLEURAL SPACE: No pleural effusion or pneumothorax. BONE:Within normal limits for the patient's age. Stable postsurgical changes of a right shoulder rep lacement. OTHER FINDINGS:Normal. IMPRESSION: No acute pulmonary findings. DATA REPOSITORY: RADIATION DOSE DELIVERED:
--- NOTE | 2023-02-07 11:15 | DI.CT_ITS ---
Exam(s) CT HEAD WO EXAM: CT HEAD WO CLINICAL HISTORY: new onset headache. TECHNIQUE: Imaging Protocol: Axial computed tomography images with coronal and sagittal reformatted images were created and reviewed COMPARISON: CT CT HEAD CERVICAL SPINE WO from 04/29/2021 FINDINGS: Ventricles and Extra axial spaces: Normal in size and morphology for the patient's age. Hemorrhage: None. Cerebral parenchyma: No acute territorial infarct. Midline shift: None. Brainstem/Cerebellum: Normal. Calvarium: Normal. Visualized Paranasal sinuses/Mastoids: There is a small mucous retention cyst or polyp in the left ma xillary sinus. The visualized paranasal sinuses are otherwise clear. Soft Tissues: Unremarkable. IMPRESSION: 1. No acute intracranial process. 2. Findings were discussed with the emergency department at 12:47 p.m. on 02/07/2023. RADIATION DOSE DELIVERED: 706.48mGy.cm Total DLP DATA REPOSITORY: All CT scans at this facility are submitted to the National Radiology Data Registry (NRDR) Dose Index Registry (DIR) with the [employer] ([employer]). RADIATION OPTIMIZATION: All CT scans at this facility use at least one of these dose optimization te chniques: automated exposure control; mA and/or kV adjustment per patient size (includes targeted exa ms where dose is matched to clinical indication); or iterative reconstruction.
[2023-02-07 11:39] LABS: ESR 36 mm/hr (0-30)
[2023-02-07] MEDS: Lactated Ringers 1,000 ML 1000 ML IV (11:42)
[2023-02-07] MEDS: ACETAMINOPHEN 1,000 MG/100 ML BTL 400 MG IVPB (11:42)
[2023-02-07] MEDS: Prochlorperazine 10 MG/2 ML VIAL 5 MG IVP (11:42)
[2023-02-07 11:44] LABS: Abs Immature Grans 0.04 10^3/uL (0.0-0.06); Absolute Basophil Count 0.05 10^3/uL (0.0-0.2); Absolute Eosinophil Count 0.09 10^3/uL (0.0-0.7); Absolute Lymphocyte Count 1.02 10^3/uL (1.2-3.4); Absolute Monocyte Count 0.89 10^3/uL (0.1-0.8); Absolute Neutrophil Count 7.71 10^3/uL (1.2-6.7); Basophils % 0.5; Eosinophils % 0.9; HCT 34.7 % (36.0-46.0); HGB 11.3 g/dL (11.2-15.7); Immature Grans % 0.4; Lymphocytes % 10.4; MCH 32.5 pg (27.0-33.0); MCHC 32.6 % (32.0-36.0); MCV 100 fL (80-95); MPV 8.9 fL (8.0-11.0); Monocytes % 9.1; Neutrophils % 78.7; Platelet Count 322 10^3/uL (130-400); RBC 3.48 10^6/uL (3.93-5.22); RDW 12.6 % (11.7-14.6); RDW-SD 46.1 fL
[2023-02-07 12:11] LABS: Bilirubin Negative (Negative); Blood Negative (Negative); Clarity Clear (Clear); Glucose Negative (Negative); Ketones Negative (Negative); Leukocyte Esterase Negative (Negative); Nitrite Negative (Negative); Specific Gravity 1.025 (1.005-1.025); Urobilinogen 0.2 mg/dL (Up to 0.2)
[2023-02-07 14:11] LABS: ALT 75 U/L (14-59); AST 42 U/L (15-37); Albumin 4.3 g/dL (3.4-5.0); Alkaline Phosphatase 135 U/L (46-116); Anion Gap 9.6 mmol/L (3-11); BUN 14 mg/dL (7-18); Bilirubin, Total 0.5 mg/dL (0.2-1.0); CO2 28.4 mmol/L (21.0-32.0); Calcium 9.6 mg/dL (8.5-10.1); Chloride 101 mmol/L (98-107); Estimated GFR 62.52 (mL/min/1.73m2); Glucose 101 mg/dL (74-106); Potassium 3.9 mmol/L (3.5-5.1); Sodium 139 mmol/L (136-145); Total Protein 8.7 g/dL (6.4-8.2)
--- NOTE | 2023-02-07 15:00 | ED.GENADUL_ITS ---
Discharge Plan Disposition Patient Disposition: Home Discharge Details Clinical Impression: Headache Primary Care Provider: Curt Cassidy ED Provider: Dia Yu Home Meds and New Rx's Prescriptions: Continued doxepin 50 MG capsule 100 mg PO QHS Patient Comments: Pt takes 1-2 at HS PRN methadone 10 MG tablet 10 mg PO HS prednisone 5 MG tablet 2.5 mg PO DAILY leflunomide [Arava] 20 MG tablet 20 mg PO DAILY calcium carbonate [Tums Ultra] 400 MG tablet,chewable 800 mg PO TID Patient Comments: not taking diphenhydramine HCl 25 MG capsule 25 mg PO HS gabapentin 300 MG capsule 600 mg PO BID Patient Comments: Pt takes two tabs in AM and mid day and 3 tabs at HS ergocalciferol (vitamin D2) [Vitamin D2] 50,000 UNITS capsule 50,000 units PO DIRECTED Patient Comments: Pt takes twice weekly levothyroxine [Synthroid] 112 MCG tablet 125 mcg PO DAILY risedronate [Actonel] 35 MG tablet 35 mg PO DIRECTED Patient Comments: Pt takes every Saturday Eliquis 5 mg tablet 5 mg PO BID Patient Comments: TAKE ONE TABLET BY MOUTH TWICE A DAY Bio-K plus 50 billion cell capsule,delayed release(DR/EC) 1 cap PO DAILY Qty: 30 0RF sucralfate 1 gram Tablet 1 g PO AC & HS Qty: 120 0RF lidocaine HCl [Lidocaine Viscous] 2 % Solution 15 ml PO TID PRN (Reason: acid reflux) Qty: 100 0RF Patient Comments: not taking alum-mag hydroxide-simeth [Mag-Al Plus] 200-200-20 mg/5 mL Suspension 30 ml PO TID PRN (Reason: indigestion) Qty: 3000 0RF Patient Comments: not taking Rx Instructions: give with lidocaine take as needed for Reflux diltiazem HCl [DILT-XR] 120 mg capsule,ext.rel 24h degradable 120 mg PO DAILY multivitamin Tablet 1 tab PO DAILY ipratropium-albuterol 0.5 mg-3 mg(2.5 mg base)/3 mL Solution For Nebulization 3 ml INHALATION Q4H PRN Patient Comments: not taking amlodipine 2.5 mg Tablet 2.5 mg PO DAILY Patient Comments: not taking acyclovir 800 mg Tablet 800 mg PO DAILY bumetanide 0.5 mg Tablet 0.5 mg PO HS docusate sodium [Colace] 100 mg Capsule HS Patient Comments: alternates everyother evening with an over the counter stool softener Rx Instructions: 200 mg orally albuterol sulfate [ProAir HFA] 90 mcg/actuation Hfa Aerosol Inhaler 2 puff INHALATION 6XD losartan 100 mg Tablet 100 mg PO DAILY naloxone 4 mg/actuation [place],Non-Aerosol 4 mg INTRANASAL Q2-3M PRN famotidine 40 mg tablet 40 mg PO DAILY Patient Comments: TAKE ONE TABLET BY MOUTH EVERY DAY 30 MINUTES BEFORE SUPPER TO DECREASE STOMACH ACID sulfamethoxazole-trimethoprim 800-160 mg tablet 1 tab PO BID Patient Comments: TAKE ONE TABLET BY MOUTH TWICE A DAY FOR BONE / JOINT INFECTION Rx Instructions: TAKE ONE TABLET BY MOUTH TWICE A DAY FOR BONE / JOINT INFECTION methocarbamol 500 mg tablet 500 mg PO Q6H PRN (Reason: muscle spasm) Qty: 14 0RF Discharge Instructions Instructions: General Headache (ED) Additional Instructions: Follow up with primary care provider in 3-5 days. Return to ED sooner if any worsening or concerns. Increase oral fluids. Please take Tylenol or Ibuprofen with food every 4-6 hours as needed for pain and swelling. Please return to the ER for any fever chills, worsening any time or feeling sicker at any time. There is a concern for possible meningitis however please follow-up with your p [facility] care you are still having the headache. Your CT shows no aneurysm or stenosis. You did receive a dose of IV antibiotics here in the ER. Please follow-up with neurology for continued headaches. Referrals: Curt Cassidy [Primary Care Provider] - 3 days Corrie Norman MD [ [facility] STAFF PHYSICIAN] - 1 week Discharge Data Discharge Date/Time-TO BE ENTERED AT DEPARTURE: 02/07/23 21:13 Medical Decision Making <ANGELICA Newton - Last Filed: 02/12/23 18:03> 67-year-old female with history of RA on chronic anticoagulation presents with headache for the past 2 weeks Secondary to persistent pressure in head, CT scan was ordered and diagnostic labs, patient does not feel any improvement with typical migraine cocktail, will give steroids and fentanyl Labs are reassuring Secondary to persistent headache I suspect patient would benefit from having lumbar puncture for further assessment given her immunosuppressed status She is fully alert and oriented She is on her baseline oxygen She has persistent discomfort we will admit her to our hospital for LP tomorrow for further assessment as patient is on Eliquis and looks took her last dose last evening Will order CTA to evaluate for aneurysm Neuro vascularly intact Medical Records Medical records reviewed: Yes I reviewed the patient's medical records. <Dia Yu NP - Last Filed: 02/07/23 22:41> 67-year-old female with history of RA on chronic anticoagulation presents with headache for the past 2 weeks Secondary to persistent pressure in head, CT scan was ordered and diagnostic labs, patient does not feel any improvement with typical migraine cocktail, will give steroids and fentanyl Labs are reassuring Secondary to persistent headache I suspect patient would benefit from having lumbar puncture for further assessment given her immunosuppressed status She is fully alert and oriented She is on her baseline oxygen She has persistent discomfort we will admit her to our hospital for LP tomorrow for further assessment as patient is on Eliquis and looks took her last dose last evening Will order CTA to evaluate for aneurysm Neuro vascularly intact 1631: SJ: Care assumed from provider (ANGELICA Newton) Please see their initial HPI, PE, and documentation. Discussed patient details and case and pending workup and disposition. Patient is hemodynamically stable, and alert and oriented. At the time of signout awaiting CTA result and possible admission. 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 No aneurysm no large vessel stenosis or occlusion noted. On reevaluation and discussion of the CT results patient does still have a headache. I did discuss the recommendation for admission for a LP to rule out meningitis within 24 hours she verbalized understanding. Hospitalist paged. [phone]: Spoke with Dr. Wiley regarding patient case and details, he recommends at least 2-3 days of holding Eliquis, he was recommended a CRP and procalcitonin and normal reevaluate and speak with him after these results. Patient is requesting to go home and see to see if she can do an outpatient LP which I do not recommend. If any anemia she needs to be admitted for IV antibiotics. Ordered Percocet p.o. to see if this may help her headache. Spoke again with Dr. Forrest he recommends Toradol and reevaluation. Patient is hemodynamically stable, ambulatory to bathroom, due to 2 weeks of symptoms and relatively normal labs the likelihood of severe meningitis is low. At this time patient is requesting to be discharged home. Patient was given strict return instructions instructed to return to care at any time. Patient's heart rate baseline is slightly tachycardic. She is remained afebrile since her stay here. This text was generated using [employer] dictation system, please disregard any oddities of phrase or misspellings. HPI <ANGELICA Newton - Last Filed: 02/12/23 18:03> General Date/Time Provider Initiated Documentation: 02/07/23 11:15 . HPI Narrative: This 67-year-old female with history of chronic oxygen therapy, COPD, rheumatoid arthritis hypertension presents with report of pressure and had for the past 2 weeks. No history of migraines per patient. Denies any fever or chills. Denies any chest pain or shortness of breath. Denies any cervical symptoms. In denies any vision change. Denies any head injury. Denies any carbon monoxide exposure. Denies strength or sensation change. Related Data Home Medications Medication Instructions Recorded Confirmed calcium carbonate 400 mg calcium 800 mg PO TID 05/01/16 04/29/21 (1,000 mg) chewable tablet (Tums Ultra) diphenhydramine HCl 25 mg capsule 25 mg PO HS 05/01/16 02/07/23 doxepin 50 mg capsule 100 mg PO QHS 05/01/16 02/07/23 ergocalciferol (vitamin D2) 1,250 50,000 units PO DIRECTED 05/01/16 02/07/23 mcg (50,000 unit) capsule (Vitamin D2) gabapentin 300 mg capsule 600 mg PO BID 05/01/16 02/07/23 leflunomide 20 mg tablet (Arava) 20 mg PO DAILY 05/01/16 02/07/23 levothyroxine 112 mcg tablet 125 mcg PO DAILY 05/01/16 02/07/23 (Synthroid) methadone 10 mg tablet 10 mg PO HS 05/01/16 02/07/23 prednisone 5 mg tablet 2.5 mg PO DAILY 05/01/16 02/07/23 risedronate 35 mg tablet (Actonel) 35 mg PO DIRECTED 05/01/16 02/07/23 acyclovir 800 mg tablet 800 mg PO DAILY 05/11/20 02/07/23 albuterol sulfate 90 mcg/actuation 2 puff inhalation 6XD 05/11/20 02/07/23 aerosol inhaler (ProAir HFA) amlodipine 2.5 mg tablet 2.5 mg PO DAILY 05/11/20 04/29/21 bumetanide 0.5 mg tablet 0.5 mg PO HS 05/11/20 02/07/23 docusate sodium 100 mg capsule HS 05/11/20 04/29/21 (Colace) ipratropium 0.5 mg-albuterol 3 mg 3 ml inhalation Q4H PRN 05/11/20 04/29/21 (2.5 mg base)/3 mL nebulization soln losartan 100 mg tablet 100 mg PO DAILY 05/11/20 02/07/23 multivitamin 1 tab PO DAILY 05/11/20 02/07/23 naloxone 4 mg/actuation nasal spray 4 mg intranasal Q2-3M PRN 05/11/20 02/07/23 apixaban 5 mg tablet (Eliquis) 5 mg PO BID 03/14/21 02/07/23 L. acidophilus,casei,rhamnosus 50 1 cap PO DAILY #30 caps 03/16/21 02/07/23 billion cell capsule,delayed release (Bio-K plus) aluminum-mag hydroxide-simethicone 30 ml PO TID PRN indigestion 03/16/21 04/29/21 200 mg-200 mg-20 mg/5 mL oral susp #3,000 mL (Mag-Al Plus) lidocaine HCl 2 % mucosal solution 15 ml PO TID PRN acid reflux #100 03/16/21 04/29/21 (Lidocaine Viscous) mL sucralfate 1 gram tablet 1 g PO AC & HS #120 tabs 03/16/21 04/29/21 famotidine 40 mg tablet 40 mg PO DAILY 04/27/21 02/07/23 sulfamethoxazole 800 1 tab PO BID 04/27/21 02/07/23 mg-trimethoprim 160 mg tablet methocarbamol 500 mg tablet 500 mg PO Q6H PRN muscle spasm #14 04/29/21 02/07/23 tabs diltiazem HCl 120 mg 120 mg PO DAILY 02/07/23 02/07/23 capsule,extended release 24 hr, controlled (DILT-XR) Previous Rx's Medication Instructions Recorded L. acidophilus,casei,rhamnosus 50 1 cap PO DAILY #30 caps 03/16/21 billion cell capsule,delayed release (Bio-K plus) aluminum-mag hydroxide-simethicone 30 ml PO TID PRN indigestion 03/16/21 200 mg-200 mg-20 mg/5 mL oral susp #3,000 mL (Mag-Al Plus) lidocaine HCl 2 % mucosal solution 15 ml PO TID PRN acid reflux #100 03/16/21 (Lidocaine Viscous) mL sucralfate 1 gram tablet 1 g PO AC & HS #120 tabs 03/16/21 methocarbamol 500 mg tablet 500 mg PO Q6H PRN muscle spasm #14 04/29/21 tabs Allergies Allergy/AdvReac Type Severity Reaction Status Date / Time bupropion HCl Allergy Unverified 02/07/23 10:54 [From Wellbutrin] infliximab [From Remicade] Allergy Unverified 02/07/23 10:54 Iodinated Contrast Media Allergy Unverified 02/07/23 10:54 morphine sulfate Allergy Unverified 02/07/23 10:54 [From MS Contin] rituximab [From Rituxan] Allergy Unverified 02/07/23 10:54 Sulfa (Sulfonamide Allergy Unverified 04/29/21 09:43 Antibiotics) sulfisoxazole Allergy Unverified 02/07/23 10:54 vancomycin Allergy Unverified 02/07/23 10:54 General Stated Complaint: Headache JENNY: 3 PFSH <ANGELICA Newton - Last Filed: 02/12/23 18:03> All Active Problems (Updated 02/07/23 @ 20:48 by Dia Yu NP) Abdominal pain (Acute) Head injury (Acute) Post-concussion headache (Acute) Cervical myofascial strain (Acute) Headache (Acute) Continuous RUQ abdominal pain (Acute) Current chronic use of systemic steroids (Acute) On home oxygen therapy (Acute) Chronic restrictive lung disease (Acute) Restrictive pattern present on pulmonary function testing (Acute) Anticoagulant long-term use (Acute) Chronic antibiotic suppression (Acute) Rheumatoid arthritis (Chronic) chronic suppression on Arava and prednisone Dilated bile duct (Chronic) Hypertension (Chronic) Medical History Anticoagulant long-term use Chronic antibiotic suppression Chronic restrictive lung disease Continuous RUQ abdominal pain Current chronic use of systemic steroids Dilated bile duct Hypertension On home oxygen therapy Pulmonary nodule Restrictive pattern present on pulmonary function testing Rheumatoid arthritis chronic suppression on Arava and prednisone Social History Smoking/Tobacco Use Status: Never Smoking risk assessment performed?: Yes Alcohol Intake: never Drug use: Never Substance use type: does not use Current gender identity: female Do you feel safe at home: Yes Do you feel safe in your relationship?: Yes Exam <ANGELICA Newton - Last Filed: 02/12/23 18:03> Const General: cooperative and ill appearing Orientation: alert and oriented x3 HENMT Head: normal to inspection Other: Uvula midline, no maxillary sinus tenderness Eyes Pupils: PERRL EOM: EOM intact bilaterally and nystagmus Neck Other: No carotid bruit Resp Effort & Inspection: normal respiratory effort Cardio Rate: regular rate Rhythm: regular rhythm Neuro General: patient alert and patient oriented x3 Cranial Nerves: CN's II-XI intact bilaterally, tongue midline and nystagmus Cognition: normal cognition Speech: speech normal Gait: normal gait Course <ANGELICA Newton - Last Filed: 02/12/23 18:03> Vital Signs Vital signs: Vital Signs Temperature 37.1 C 02/07/23 10:51 Pulse 114 H 02/07/23 10:51 Respiratory Rate 18 02/07/23 10:51 Blood Pressure 161/71 H 02/07/23 10:51 Pulse Oximetry 98 02/07/23 10:51 Temperature 37.1 C 02/07/23 10:51 Temperature Source Tympanic 02/07/23 10:51 Pulse 114 H 02/07/23 10:51 Respiratory Rate 18 02/07/23 10:51 Respiratory Effort Normal, Non-Labored 02/07/23 10:54 Blood Pressure 161/71 H 02/07/23 10:51 Pulse Oximetry 98 02/07/23 10:51 Oxygen Delivery Method Nasal Cannula 02/07/23 10:51 Oxygen Flow Rate 2 02/07/23 10:51 Pain Level 8 02/07/23 13:15 Lab/Test Results Lab/Test Results: 02/07/23 14:55 Blood Blood Culture - Pending 02/07/23 14:55 Blood Blood Culture - Pending Laboratory Tests Range/Units 02/07/23 02/07/23 02/07/23 11:28 11:28 11:28 WBC (4.4-10.8) 10^3/uL 9.80 RBC (3.93-5.22) 10^6/uL 3.48 L Hgb (11.2-15.7) g/dL 11.3 Hct (36.0-46.0) % 34.7 L MCV (80-95) fL 100 H MCH (27.0-33.0) pg 32.5 MCHC (32.0-36.0) % 32.6 RDW (11.7-14.6) % 12.6 Plt Count (130-400) 10^3/uL 322 MPV (8.0-11.0) fL 8.9 Immature Gran % 0.4 Neutrophils % 78.7 Lymphocytes % 10.4 Monocytes % 9.1 Eosinophils % 0.9 Basophils % 0.5 Nucleated RBC % (0.0-0.3) % 0.0 Absolute Neutrophils (1.2-6.7) 10^3/uL 7.71 H Absolute Lymphocytes (1.2-3.4) 10^3/uL 1.02 L Absolute Monocytes (0.1-0.8) 10^3/uL 0.89 H Absolute Eosinophils (0.0-0.7) 10^3/uL 0.09 Absolute Basophils (0.0-0.2) 10^3/uL 0.05 ESR (0-30) mm/hr 36 H Sodium (136-145) mmol/L 139 Potassium (3.5-5.1) mmol/L 3.9 Chloride (98-107) mmol/L 101 Carbon Dioxide (21.0-32.0) mmol/L 28.4 Anion Gap (3-11) mmol/L 9.6 BUN (7-18) mg/dL 14 Creatinine (0.55-1.02) mg/dL 1.0 Est GFR (CKD-EPI 2020) (mL/min/1.73m2) 62.52 Glucose (74-106) mg/dL 101 Calcium (8.5-10.1) mg/dL 9.6 Total Bilirubin (0.2-1.0) mg/dL 0.5 AST (15-37) U/L 42 H ALT (14-59) U/L 75 H Alkaline Phosphatase (46-116) U/L 135 H Total Protein (6.4-8.2) g/dL 8.7 H Albumin (3.4-5.0) g/dL 4.3 Urine Color (Yellow) Urine Clarity (Clear) Urine pH (5-8) Ur Specific [place] (1.005-1.025) Urine Protein (Negative) mg/dL Urine Ketones (Negative) mg/dL Urine Blood (Negative) Urine Nitrite (Negative) Urine Bilirubin (Negative) Urine Urobilinogen (Up to 0.2) mg/dL Ur Leukocyte Esterase (Negative) Urine Glucose (Negative) mg/dL Range/Units 02/07/23 11:50 WBC (4.4-10.8) 10^3/uL RBC (3.93-5.22) 10^6/uL Hgb (11.2-15.7) g/dL Hct (36.0-46.0) % MCV (80-95) fL MCH (27.0-33.0) pg MCHC (32.0-36.0) % RDW (11.7-14.6) % Plt Count (130-400) 10^3/uL MPV (8.0-11.0) fL Immature Gran % Neutrophils % Lymphocytes % Monocytes % Eosinophils % Basophils % Nucleated RBC % (0.0-0.3) % Absolute Neutrophils (1.2-6.7) 10^3/uL Absolute Lymphocytes (1.2-3.4) 10^3/uL Absolute Monocytes (0.1-0.8) 10^3/uL Absolute Eosinophils (0.0-0.7) 10^3/uL Absolute Basophils (0.0-0.2) 10^3/uL ESR (0-30) mm/hr Sodium (136-145) mmol/L Potassium (3.5-5.1) mmol/L Chloride (98-107) mmol/L Carbon Dioxide (21.0-32.0) mmol/L Anion Gap (3-11) mmol/L BUN (7-18) mg/dL Creatinine (0.55-1.02) mg/dL Est GFR (CKD-EPI 2020) (mL/min/1.73m2) Glucose (74-106) mg/dL Calcium (8.5-10.1) mg/dL Total Bilirubin (0.2-1.0) mg/dL AST (15-37) U/L ALT (14-59) U/L Alkaline Phosphatase (46-116) U/L Total Protein (6.4-8.2) g/dL Albumin (3.4-5.0) g/dL Urine Color (Yellow) Yellow Urine Clarity (Clear) Clear Urine pH (5-8) 6.0 Ur Specific [place] (1.005-1.025) 1.025 Urine Protein (Negative) mg/dL Negative Urine Ketones (Negative) mg/dL Negative Urine Blood (Negative) Negative Urine Nitrite (Negative) Negative Urine Bilirubin (Negative) Negative Urine Urobilinogen (Up to 0.2) mg/dL 0.2 Ur Leukocyte Esterase (Negative) Negative Urine Glucose (Negative) mg/dL Negative Sign Out <ANGELICA Newton - Last Filed: 02/12/23 18:03> Sign Out Data: Sign Out Comment: pending cta head and neck and admission for LP and pain control, obs, abx Last updated by Rita Alexis PA at 02/07/23 16:19
--- NOTE | 2023-02-07 15:00 | RT.EKG_ITS ---
APPROVED REPORT Exam: Resting ECG Reason for Exam: afib Patient Location: E HR:100 bpm ECG Measurements Heart Rate 100 AXIS SD 175 P 70 QRSd 96 QRS 3 QT 340 T 32 QTc 439 Conclusion Sinus tachycardia...rate> 99 Low voltage, precordial leads...precordial leads <1.0mV sinus tachycardia, left axis, nonischemic
[2023-02-07 15:01] VITALS: BP 160/83; PULSE 104; TEMP 36.5; O2SAT 90
[2023-02-07] MEDS: Dexamethasone 10 MG/ML VIAL IVP (15:18)
[2023-02-07 15:19] LABS: COVID-19 PCR Negative (Negative); Influenza A PCR Negative (Negative); Influenza B PCR Negative (Negative); RSV PCR Negative (Negative)
[2023-02-07] MEDS: fentaNYL 100 MCG/2 ML VIAL 25 MCG IVP (15:19)
[2023-02-07 15:24] LABS: Source Nasopharynx
[2023-02-07] MEDS: Omnipaque 350 MG/ML 100 ML BTL IJ (16:16)
[2023-02-07] MEDS: Normal Saline Flush 10 ML SYR IVP (16:23)
--- NOTE | 2023-02-07 16:25 | DI.CT_ITS ---
Exam(s) CT BRAIN NECK CTA EXAM: CT BRAIN NECK CTA CLINICAL HISTORY: eval for aneurysm. TECHNIQUE: Imaging Protocol: Axial CT angiography was performed with multi-slice acquisition and mu lti-planar and/or 3D reconstructions. CONTRAST MATERIAL: Intravenous: Omnipaque 350 contrast volume:85 mL COMPARISON: CT CT ABDOMEN PELVIS W from 03/14/2021 FINDINGS: CT Head W/O and W: Ventricles and Extra axial spaces: Normal in size and morphology for the patient's age. There is agai n seen an 8 mm extra-axial calcified dural-based lesion along the right frontal convexity likely refl ecting a meningioma. This is stable. Hemorrhage: None. Cerebral parenchyma: Normal. Midline shift: None. Brainstem/Cerebellum: Normal. Calvarium: Normal. Visualized Paranasal sinuses/Mastoids: Mucous retention cysts or polyps are seen in the left maxillar y sinus. The remaining visualized paranasal sinuses are clear. Soft Tissues: Unremarkable. Enhancement: Unremarkable. CTA Neck W: Common Carotid: Right: No dissection, occlusion or significant stenosis. Left: No dissection, occlusion or significant stenosis. External Carotid: Right: No occlusion or significant stenosis. Left: No occlusion or significant stenosis. Internal Carotid: Right: No dissection, occlusion or significant stenosis. Mild atherosclerosis. Left: No dissection, occlusion or significant stenosis. Vertebral Artery: Right: No dissection, occlusion or significant stenosis. Left: No dissection, occlusion or significant stenosis. Lung Apices: Normal. Bones: Within normal limits for the patient's age. Soft Tissues: Normal. Thyroid gland: Unremarkable. CTA Brain W: Internal Carotid Arteries: No aneurysm, occlusion or significant stenosis. Anterior Cerebral Arteries: Right: No aneurysm, occlusion or significant stenosis. Left: No aneurysm, occlusion or significant stenosis. Middle Cerebral Arteries: Right: No aneurysm, occlusion or significant stenosis. Left: No aneurysm, occlusion or significant stenosis. Posterior Cerebral Arteries: The posterior communicating arteries are present bilaterally. This is a normal variant. Right: No aneurysm, occlusion or significant stenosis. Left: No aneurysm, occlusion or significant stenosis. Vertebral Arteries: Right: No aneurysm, occlusion or significant stenosis. Left: No aneurysm, occlusion or significant stenosis. Basilar Artery: No aneurysm, occlusion or significant stenosis. IMPRESSION: 1. No large vessel occlusion or significant stenosis on the CT angiography of the head. No evidence of an aneurysm. 2. No acute intracranial process. 3. No occlusion or significant stenosis on the CT angiography of the neck. RADIATION DOSE DELIVERED: 1,937.84mGy.cm Total DLP DATA REPOSITORY: All CT scans at this facility are submitted to the National Radiology Data Registry (NRDR) Dose Index Registry (DIR) with the [employer] (A[employer]). RADIATION OPTIMIZATION: All CT scans at this facility use at least one of these dose optimization te chniques: automated exposure control; mA and/or kV adjustment per patient size (includes targeted exa ms where dose is matched to clinical indication); or iterative reconstruction.
[2023-02-07] MEDS: DAPTOmycin 500 MG in Normal Saline 50 ML 100 MG IVPB (16:30)
[2023-02-07] MEDS: cefTRIAXone 2 GM/50 ML BAG IVPB (16:59)
--- NOTE | 2023-02-07 17:27 | DI.VRAD_ITS ---
PROCEDURE INFORMATION: Exam: CT Head Without Contrast Exam date and time: 02/07/2023 4:13 PM Age: 67 years old Clinical indication: Other: Eval for aneurysm; Prior surgery; Surgery date: 6+ months; Surgery type: Spinal surgery, shoulder surgery TECHNIQUE: Imaging protocol: Computed tomography of the head without contrast. COMPARISON: CT HEAD WO 02/07/2023 12:09 PM FINDINGS: Brain: There is no acute intracranial hemorrhage, mass effect or midline shift. There is no large acute territorial cerebral infarct. Incidentally noted is an 8 mm partially calcified dural-based lesion in the right frontal region, unchanged since the prior examination. Cerebral ventricles: No ventriculomegaly. Paranasal sinuses: A mucosal polyp versus mucus retention cyst is seen in the left maxillary sinus. Mastoid air cells: Visualized mastoid air cells are well aerated. Bones/joints: Unremarkable. No acute fracture. Soft tissues: Unremarkable. IMPRESSION: 1. No acute intracranial hemorrhage, mass effect or midline shift. 2. Stable 8 mm partially calcified right frontal lobe dural-based lesion, likely a calcified meningioma. PROCEDURE INFORMATION: Exam: CTA Head With Contrast, Arteriography Exam date and time: 02/07/2023 4:13 PM Age: 67 years old Clinical indication: Other: Eval for aneurysm; Prior surgery; Surgery date: 6+ months; Surgery type: Spinal surgery, shoulder surgery TECHNIQUE: Imaging protocol: Computed tomographic angiography of the head with contrast. Exam focused on the arteries. 3D rendering (Not supervised by radiologist): MIP and/or 3D reconstructed images were created by the technologist. Contrast material: OMNIPAQUE 350; Contrast volume: 100 ml; Contrast route: INTRAVENOUS (IV); COMPARISON: CT HEAD WO 02/07/2023 12:09 PM FINDINGS: ANTERIOR CIRCULATION: Right internal carotid artery: Intracranial segment is patent with no significant stenosis. No aneurysm. Right middle cerebral artery: No occlusion or significant stenosis. No aneurysm. Right anterior cerebral artery: No occlusion or significant stenosis. No aneurysm. Left internal carotid artery: Intracranial segment is patent with no significant stenosis. No aneurysm. Left middle cerebral artery: No occlusion or significant stenosis. No aneurysm. Left anterior cerebral artery: No occlusion or significant stenosis. No aneurysm. POSTERIOR CIRCULATION: Right vertebral artery: No occlusion or significant stenosis. No aneurysm. Left vertebral artery: No occlusion or significant stenosis. No aneurysm. Basilar artery: No occlusion or significant stenosis. No aneurysm. Right posterior cerebral artery: No occlusion or significant stenosis. No aneurysm. Left posterior cerebral artery: No occlusion or significant stenosis. No aneurysm. Brain: No definite mass, mass effect, or midline shift. Cerebral ventricles: No ventriculomegaly. Bones/joints: Unremarkable. No acute fracture. Soft tissues: Unremarkable. IMPRESSION: 1. No aneurysm. 2. No large vessel stenosis or occlusion. PROCEDURE INFORMATION: Exam: CTA Neck With Contrast Exam date and time: 02/07/2023 4:13 PM Age: 67 years old Clinical indication: Other: Eval for aneurysm; Prior surgery; Surgery date: 6+ months; Surgery type: Spinal surgery, shoulder surgery TECHNIQUE: Imaging protocol: Computed tomographic angiography of the neck with contrast. 3D rendering (Not supervised by radiologist): MIP and/or 3D reconstructed images were created by the technologist. Contrast material: OMNIPAQUE 350; Contrast volume: 100 ml; Contrast route: INTRAVENOUS (IV); COMPARISON: CT HEAD CERVICAL SPINE WO 04/29/2021 11:22 AM FINDINGS: Right common carotid artery: No stenosis. No dissection or occlusion. Right internal carotid artery: No stenosis of the extracranial segment. No dissection or occlusion. Right external carotid artery: No occlusion or stenosis of the origin. Left common carotid artery: No stenosis. No dissection or occlusion. Left internal carotid artery: No stenosis of the extracranial segment. No dissection or occlusion. Left external carotid artery: No occlusion or stenosis of the origin. Right vertebral artery: No stenosis. No dissection or occlusion. Left vertebral artery: No stenosis. No dissection or occlusion. Soft tissues: Normal. No significant soft tissue swelling. Bones/joints: No acute fracture. IMPRESSION: No stenosis or occlusion. REFERENCES: NASCET CRITERIA. The degree of stenosis in the cervical segment of the internal carotid artery is based on NASCET criteria. Normal is no stenosis. Mild is less than 50% stenosis. Moderate is 50-69% stenosis. Severe is 70% to 99% stenosis. Total occlusion is no detectable patent lumen. Dictated and Authenticated by: Nancy Pastor MD. Ordering:YAZAN Salinas MD
[2023-02-07 17:57] VITALS: BP 153/87; PULSE 101; RESP 18; TEMP 36.7; O2SAT 97
[2023-02-07] MEDS: Normal Saline 1,000 ML 150 ML IV (19:00)
[2023-02-07] MEDS: oxyCODONE 5 mg/Acetaminophen 325 mg TAB 1 TAB PO (19:17)
[2023-02-07 19:41] LABS: Procalcitonin 0.1 ng/mL
[2023-02-07 19:47] LABS: C-Reactive Protein 1.35 mg/dL (0.0-0.3)
[2023-02-07 20:05] VITALS: BP 151/76; PULSE 107; RESP 17; O2SAT 95
[2023-02-07] MEDS: Ketorolac 30 MG/ML VIAL IVP (20:21)
[2023-02-07 21:13] VITALS: BP 167/97; PULSE 103; RESP 18; O2SAT 97
[2023-02-11 12:50] LABS: Lyme Ab w Rflx to Lyme Confirm Negative (Negative)
[2023-02-11 15:15] LABS: Anaplasma phagocytophilum Negative (Negative); B. miyamotoi PCR Negative (Negative); Babesia divergens/MO-1 Negative (Negative); Babesia duncani Negative (Negative); Babesia microti Negative (Negative); Ehrlichia chaffeensis Negative (Negative); Ehrlichia ewingii/canis Negative (Negative); Ehrlichia muris eauclairensis Negative (Negative)
== END 2023-02-07 21:13 | disposition home or self-care (01) ==
PROVIDERS: Physician Assistant; Emergency Provider Registered Nurse Emergency; PCP Family Medicine
DX: R51.9 Headache, unspecified (principal); I10 Essential (primary) hypertension; J44.9 Chronic obstructive pulmonary disease, unspecified; H55.00 Unspecified nystagmus; Z20.822 Contact with and (suspected) exposure to COVID-19
CPT/HCPCS: 36415; 70496; 70498; 80053; 84145; 85652; 87040; 87637; 87798; 93005; 96361; 96365; 96375; 99284; 99285; 70450; 71046; 81003; 83605; 85025; 86140; 86618; 93010; J0131; J0780; J0878; J1100; J1885; J3010; J3490

== ENCOUNTER → 2023-03-07 12:33 | Outpatient (BNVA) | payer MEDICARE, MEDICAID, SELFPAY | PROVIDERS: PCP Family Medicine; Referring Provider Family Medicine; Visit Provider Nurse Practitioner Adult Health | DX: R51.9 Headache, unspecified (principal); Z79.01 Long term (current) use of anticoagulants; Z86.711 Personal history of pulmonary embolism | CPT/HCPCS: 99204; 99215 ==

== ENCOUNTER → 2023-10-30 03:49 | Outpatient (CLI) | payer MEDICARE, MEDICAID, SELFPAY ==
--- NOTE | 2023-10-30 10:45 | DI.MAMMO_ITS ---
Exam(s) MG MAMMO SCREENING 60 MIN DUR EXAM: MG MAMMO SCREENING 60 MIN DUR CLINICAL HISTORY: SCREENING MAMMO FOR BREAST CANCER Z12.31 TECHNIQUE: Mammograms were interpreted according to the usual protocol including computer analysis w ith CAD system, tomosynthesis and C-view imaging. COMPARISON: 2014 through 2021 FINDINGS: The breasts are composed of heterogeneously dense fibroglandular densities, Breast Density category C . No suspicious masses or suspicious microcalcifications are seen. No skin thickening or abnormal axillary lymph nodes are seen. There has been no significant change from prior exams. IMPRESSION: BI-RADS Category 1, Negative mammogram. Yearly screening mammography is recommended. Breast Density Category C, heterogeneously Dense. The mammogram demonstrates the patient's breast tissue is dense. Dense breast tissue is very common a nd is not abnormal but dense breast tissue can make it harder to find cancer on a mammogram. Also, de nse breast tissue may increase breast cancer risk. This information about the result of the mammogram report was provided to the patient to raise their awareness. Use this report when you speak with the patient about their risks for breast cancer, which includes their family history. At that time, you may recommend additional screening tests (Ultrasound or MRI) as they might be useful based on their r isk. A negative radiographic report should not delay biopsy if a dominant or clinically suspicious mass is present. Up to ten percent of cancers are not identified on mammography. A negative report may reinforce clinical impression. Adenosis and dense breasts may obscure an underlying neoplasm. False positive reports average 6 to 10%.
== END ==
PROVIDERS: PCP Family Medicine; Visit Provider Family Medicine
DX: Z12.31 Encounter for screening mammogram for malignant neoplasm of breast (principal)
CPT/HCPCS: 77063; 77067

== ENCOUNTER 2024-02-07 03:43 | Outpatient (CLI) | payer MEDICARE, MEDICAID, SELFPAY ==
[2024-02-07 12:27] LABS: Abs Immature Grans 0.04 10^3/uL (0.0-0.06); Absolute Basophil Count 0.06 10^3/uL (0.0-0.2); Absolute Eosinophil Count 0.17 10^3/uL (0.0-0.7); Absolute Lymphocyte Count 2.13 10^3/uL (1.2-3.4); Basophils % 0.5; Eosinophils % 1.5; HCT 35.3 % (36.0-46.0); HGB 11.7 g/dL (11.2-15.7); Immature Grans % 0.4; Lymphocytes % 19.2; MCHC 33.1 % (32.0-36.0); MCV 93 fL (80-95); MPV 9.1 fL (8.0-11.0); Monocytes % 10.6; Neutrophils % 67.8; Platelet Count 317 10^3/uL (130-400); RBC 3.78 10^6/uL (3.93-5.22); RDW-SD 44.8 fL; WBC 11.08 10^3/uL (4.4-10.8)
[2024-02-07 12:28] LABS: Absolute Monocyte Count 1.17 10^3/uL (0.1-0.8); Absolute Neutrophil Count 7.51 10^3/uL (1.2-6.7)
[2024-02-07 12:50] LABS: ALT 89 U/L (14-59); AST 50 U/L (15-37); Albumin 3.9 g/dL (3.4-5.0); Alkaline Phosphatase 162 U/L (46-116); Anion Gap 7.7 mmol/L (3-11); BUN 14 mg/dL (7-18); Bilirubin, Total 0.4 mg/dL (0.2-1.0); CO2 31.3 mmol/L (21.0-32.0); CREATININE 1.1 mg/dL (0.55-1.02); Calcium 9.4 mg/dL (8.5-10.1); Chloride 99 mmol/L (98-107); Estimated GFR 55.42 (mL/min/1.73m2); Glucose 115 mg/dL (74-106); Potassium 4.2 mmol/L (3.5-5.1); Sodium 138 mmol/L (136-145); TSH 0.29 uIU/Ml (0.36-3.74); Total Protein 8.2 g/dL (6.4-8.2)
[2024-02-07 13:11] LABS: *AMPHETAMINES SCREEN URINE Negative (Negative); *BARBITURATES SCREEN URINE Negative (Negative); *BENZODIAZEPINES SCREEN URINE Negative (Negative); Cannabinoids THC Negative (Negative); Cocaine Screen,Urine Negative (Negative); METHADONE URINE SCREEN Positive (Negative); OPIATES URINE SCREEN Negative (Negative); Tricyclic Antidepressants Positive (Negative)
== END 2024-02-07 03:44 | disposition home or self-care (01) ==
LOC: LBO 03:43
PROVIDERS: PCP Family Medicine; Visit Provider Family Medicine
DX: E03.9 Hypothyroidism, unspecified (principal); Z79.891 Long term (current) use of opiate analgesic
CPT/HCPCS: 36415; 80053; 80307; 85027; 84443; 85025

== ENCOUNTER 2024-04-03 02:33 | Outpatient (CLI) | payer MEDICARE, MEDICAID, SELFPAY ==
[2024-04-03 13:20] LABS: Abs Immature Grans 0.03 10^3/uL (0.0-0.06); Absolute Basophil Count 0.05 10^3/uL (0.0-0.2); Absolute Eosinophil Count 0.21 10^3/uL (0.0-0.7); Absolute Lymphocyte Count 1.96 10^3/uL (1.2-3.4); Absolute Monocyte Count 1.11 10^3/uL (0.1-0.8); Absolute Neutrophil Count 4.98 10^3/uL (1.2-6.7); Basophils % 0.6 %; Eosinophils % 2.5 %; HCT 34.1 % (36.0-46.0); Immature Grans % 0.4 %; Lymphocytes % 23.5 %; MCH 30.5 pg (27.0-33.0); MCHC 32.3 % (32.0-36.0); MCV 95 fL (80-95); Monocytes % 13.3 %; Neutrophils % 59.7 %; Platelet Count 305 10^3/uL (130-400); RBC 3.61 10^6/uL (3.93-5.22); RDW 13.3 % (11.7-14.6); RDW-SD 46.1 fL; WBC 8.34 10^3/uL (4.4-10.8)
[2024-04-03 14:07] LABS: TSH 13.71 uIU/Ml (0.36-3.74)
== END 2024-04-03 02:34 | disposition home or self-care (01) ==
LOC: LBO 02:33
PROVIDERS: PCP Family Medicine; Visit Provider Family Medicine
DX: E03.9 Hypothyroidism, unspecified (principal); D72.829 Elevated white blood cell count, unspecified
CPT/HCPCS: 36415; 84443; 85025

== ENCOUNTER → 2024-05-04 05:07 | Outpatient (CLI) | payer MEDICARE, MEDICAID, SELFPAY ==
--- NOTE | 2024-05-04 | DI.US_ITS ---
Exam(s) US ABDOMEN LIMITED EXAM: US ABDOMEN LIMITED CLINICAL HISTORY: Hepatic fibrosis, K74.00; Metabolic dysfunction-associated steatohepatitis, TECHNIQUE: Ultrasound abdomen performed using standard protocol. COMPARISON: CT CT ABDOMEN PELVIS W from 03/14/2021 US US ABDOMEN from 03/15/2021 FINDINGS: LIVER: Normal size. Normalechogenicity. No focal liver lesions are seen.. GALLBLADDER: No evidence of cholelithiasis. No evidence of wall thickening. No pericholecystic fluid identified. CLEMENT'S SIGN: Negative. BILIARY SYSTEM: Stable dilatation of the common bile duct, up to 15 millimeters. RIGHT KIDNEY: Normal size. No evidence of renal calculi. No evidence of hydronephrosis. No suspicious renal mass. No cyst identified. PANCREAS: Normal where visualized. ABDOMINAL AORTA AND IVC: Visualized portions normal caliber. ASCITES: None seen. IMPRESSION: Stable dilatation of the common bile duct. DATA REPOSITORY:
== END ==
PROVIDERS: PCP Family Medicine; Visit Provider Nurse Practitioner Family
DX: K74.3 Primary biliary cirrhosis (principal)
CPT/HCPCS: 76705

== ENCOUNTER 2024-07-22 03:05 | Outpatient (CLI) | payer MEDICARE, MEDICAID, SELFPAY ==
[2024-07-22 13:12] LABS: Abs Immature Grans 0.04 10^3/uL (0.0-0.06); Absolute Basophil Count 0.06 10^3/uL (0.0-0.2); Absolute Eosinophil Count 0.16 10^3/uL (0.0-0.7); Absolute Lymphocyte Count 1.73 10^3/uL (1.2-3.4); Absolute Neutrophil Count 6.22 10^3/uL (1.2-6.7); Basophils % 0.6 %; Eosinophils % 1.7 %; HCT 34.2 % (36.0-46.0); Immature Grans % 0.4 %; Lymphocytes % 18.2 %; MCH 31.3 pg (27.0-33.0); MCHC 32.2 % (32.0-36.0); MCV 97 fL (80-95); MPV 9.2 fL (8.0-11.0); Monocytes % 13.7 %; Neutrophils % 65.4 %; Platelet Count 292 10^3/uL (130-400); RBC 3.52 10^6/uL (3.93-5.22); RDW 13.1 % (11.7-14.6); RDW-SD 46.9 fL; WBC 9.51 10^3/uL (4.4-10.8)
[2024-07-22 14:31] LABS: ALT 57 U/L (14-59); AST 33 U/L (15-37); Albumin 3.9 g/dL (3.4-5.0); Alkaline Phosphatase 131 U/L (46-116); Anion Gap 5.4 mmol/L (3-11); BUN 16 mg/dL (7-18); Bilirubin, Total 0.54 mg/dL (0.2-1.0); CO2 34.6 mmol/L (21.0-32.0); CREATININE 1.2 mg/dL (0.55-1.02); Calcium 9.2 mg/dL (8.5-10.1); Calculated LDL 70 mg/dL (<100); Chloride 99 mmol/L (98-107); Cholesterol 150 mg/dL (<200); Estimated GFR 49.92 (mL/min/1.73m2); Glucose 86 mg/dL (74-106); HDL Cholesterol 62 mg/dL (40-60); Potassium 3.9 mmol/L (3.5-5.1); Sodium 139 mmol/L (136-145); TSH 0.84 uIU/Ml (0.36-3.74); Total Protein 8.1 g/dL (6.4-8.2); Triglyceride 90 mg/dL (<150)
[2024-07-22 14:32] LABS: Folate > 20.0 ng/mL (8.6-20.0)
== END 2024-07-22 03:06 | disposition home or self-care (01) ==
LOC: LBO 03:06
PROVIDERS: PCP Family Medicine; Visit Provider Family Medicine
DX: R74.01 Elevation of levels of liver transaminase levels (principal); E03.9 Hypothyroidism, unspecified; D72.829 Elevated white blood cell count, unspecified
CPT/HCPCS: 36415; 80053; 80061; 82746; 84443; 85025

== ENCOUNTER 2024-10-30 01:22 | Outpatient (CLI) | payer MEDICARE, MEDICAID, SELFPAY ==
--- OUTSIDE RECORDS SUMMARY | 2024-10-30 01:32 | XMS_ITS | Encounter Summary ---
Author Organization [facility] [place] [address] Care Team Providers Care Salesforce Consultant Name Role Phone Curt Cassidy MD Primary Care Provider [phone] Reason for Referral * Consultation (Routine) - Canceled Specialty Diagnoses / Procedures Referred By Contjen t Referred To Contact Orthopaedics Diagnoses Right hip pain Curt Cassidy MD [facility] , [address] [address] [facility] [address] [place] [id number] Referral ID Status Reason Start Date Expiration Date Visits Requested Visits Authorized [id number] Canceled Consult, Test & Treat PCP Updated and/or Approved 09/09/2023 09/08/2024 6 6 Encounter Details Date Type Department Care Team (Late st Contact Info) Description 09/13/2023 Transcribe Orders eDH Incoming Referrals [phone] Curt Cassidy MD [address] [place] [address], [address] [address] Right hip pain Social History Tobacco Use Types Packs/Day Years Used Date Smoking Tobacco: Never Smokeless Tobacco: Never Alcohol Use Standard Drinks/Week Comments No 0 (1 standard drink = 0.6 oz pur e alcohol) Sex and Gender Information Value Date Recorded Sex Assigned at Not on file Gender Identity Not on file Sexual Orientation Not on file documented as of this encounter Plan of Treatment Scheduled Referrals Name Type Priority Associated Diagnoses Order Schedule Referral to Orthopaedics Outpatient Referral Routine Right hip pain Ordered: 09/13/2023 documented as of this encounter Visit Diagnoses Diagnosis Right hip pain Pain in joint, pelvic region and thigh documented in this encounter Care Teams Salesforce Consultant Relationship Specialty Start Date End Date Curt Cassidy MD [address] [facility], [address] [address] PCP - General 10/10/10 documented as of this encounter
--- OUTSIDE RECORDS SUMMARY | 2024-10-30 01:32 | XMS_ITS | Encounter Summary ---
Author Organization [facility] [place] [address] Care Team Providers Care Upper Shaper Name Role Phone Curt Cassidy MD Primary Care Provider [phone] Encounter Details Date Type Department Care Team (Latest Contact Info) Description 01/13/2024 Travel Social History Tobacco Use Types Packs/Day Years Used Date Smoking Tobacco: Never Smokeless Tobacco: Never Alcohol Use Standard Drinks/Week Comments No 0 (1 standard drink = 0.6 oz pur e alcohol) Sex and Gender Information Value Date Recorded Sex Assigned at Not on file Gender Identity Not on file Sexual Orientation Not on file documented as of this encounter Plan of Treatment Not on file documented as of this encounter Visit Diagnoses Not on filedocumented in this encounter Care Teams Upper Shaper Relationship Specialty Start Date End Date Curt Cassidy MD [address] [facility], [facility] [address] [place] [address] PCP - General 10/10/10 documented as of this encounter
--- OUTSIDE RECORDS SUMMARY | 2024-10-30 01:32 | XMS_ITS | Encounter Summary ---
Author Organization [facility] Address [facility] [place] [address] Care Team Providers Care Law Office Receptionist Name Role Phone Curt Cassidy MD Primary Care Provider [phone] Encounter Details Date Type Department Care Team (Latest Contact Info) Description 04/27/2022 11:11 AM EDT - 04/27/2022 11:59 PM EDT Hospital Encounter XRay at [address] [place] [address] Masood Barriga MD [facility] [place] [address] Chronic elbow pain, left Discharge Disposition: Home Social History Tobacco Use Types Packs/Day Years Used Date Smoking Tobacco: Never Smokeless Tobacco: Never Alcohol Use Standard Drinks/Week Comments No 0 (1 standard drink = 0.6 oz pur e alcohol) Sex and Gender Information Value Date Recorded Sex Assigned at Not on file Gender Identity Not on file Sexual Orientation Not on file documented as of this encounter Medications at Time of Discharge Medication Sig Dispensed Refills Start Date End Date Eliquis 5 mg Tablet Take 5 mg by mouth 2 times daily. 11/14/2021 Restasis 0.05 % Dropperette 11/14/2021 EPINEPHrine 0.15 mg/0.15 mL Auto-Injector EPINEPHRINE 0.15 MG/0.15ML SOAJ 01/16/2021 naloxone (Narcan) 4 mg/actuation [place], Non-Aerosol NARCAN 4 MG/0.1ML LIQD 02/02/2019 multivitamin Capsule MULTIVITAMINS CAPS 12/10/2019 famotidine (Pepcid) 40 mg Tablet 08/18/2021 bumetanide (BUMEX) 0.5 mg Tablet TAKE 1 TABLET BY MOUTH ONCE DAILY (FOR SALT AND WATER RETENTION) 11 07/31/2019 losartan (COZAAR) 100 mg Tablet Take 150 mg by mouth daily. Lactobacillus acidophilus (PROBIOTIC ORAL) Take by mouth daily. docosahexanoic acid/epa (FISH OIL ORAL) Take 2,000 Units by mouth daily. sulfamethoxazole-trim ethoprim (BACTRIM DS) 800-160 mg Tablet Take 1 tablet by mouth 2 times daily. 60 tablet 5 04/19/2019 DILT-XR 240 mg Capsule,Degradable Cnt Release daily. 10/06/2018 OXYGEN-AIR DELIVERY SYSTEMS MISC 2 L by [facility]Non-Drug; Combo Route) route daily. docusate sodium (COLACE) 100 mg Capsule Take 100 mg by mouth daily. senna (SENOKOT) 8.6 mg Tablet Take by mouth daily. atorvastatin (LIPITOR) 20 mg Tablet Take 20 mg by mouth daily. Carboxymethylcellulos e Sodium 0.25 % Dropperette Place 1 drop into both eyes 6 times daily. methadone (DOLOPHINE) 10 mg Tablet Take 5-10 mg by mouth nightly. doxepin (SINEQUAN) 50 mg capsule Take 1 capsule by mouth daily. 11/05/2013 gabapentin (NEURONTIN) 300 mg capsuleIndications:Ne uropathy Take 2 capsules by mouth 2 times daily. Take at 0900 and 1400 daily. 11/05/2013 diphenhydrAMINE (BENADRYL) 25 mg capsule Take 1 capsule by mouth every 6 hours as needed for Itching (Patient requests to take this the same time as the Methadone). 11/05/2013 ergocalciferol (VITAMIN D) 50,000 unit capsule 10651 unit, PO, once a month 10/23/2010 budesonide-formoteroL (Symbicort) 160-4.5 mcg/actuation HFA Aerosol Inhaler SYMBICORT 160-4.5 MCG/ACT AERO 04/22/2017 11/05/2022 cholecalciferol, Vitamin D3, 1,250 mcg (50,000 unit) Capsule TAKE 1 CAPSULE BY MOUTH ONCE A WEEK 12/14/2021 11/05/2022 pantoprazole EC (Protonix) 40 mg Tablet, Delayed Release (E.C.) BID@0730,199903/16/2021 12/27/2023 risedronate (ACTONEL) 35 mg Tablet Take 35 mg by mouth every 7 days. 05/01/2016 12/27/2023 Saccharomyces boulardii (FLORASTOR) 250 mg Capsule Every 12 hours. 12/19/2018 11/05/2022 acyclovir (Zovirax) 800 mg Tablet TAKE ONE TABLET BY MOUTH EVERY DAY 90 tablet 1 02/10/2021 09/27/2023 amLODIPine (Norvasc) 2.5 mg Tablet Take 2.5 mg by mouth daily. 11/05/2022 leflunomide (Arava) 20 mg TabletIndications:Rhe umatoid arthritis, involving unspecified site, unspecified rheumatoid factor presence TAKE ONE TABLET BY MOUTH DAILY 90 tablet 3 08/16/2020 09/27/2023 alendronate (Fosamax) 70 mg Tablet TAKE 1 TABLET BY MOUTH EVERY 7 DAYS IN THE MORNING WITH A FULL GLASS OF WATER ON AN EMPTY STOMACH. DO NOT LIE DOWN FOR 30 MINUTES 12 tablet 3 07/25/2020 11/05/2022 levothyroxine (SYNTHROID) 150 mcg Tablet 125 mcg. 5 06/24/2019 12/27/2023 ipratropium-albuterol (DUONEB) 0.5 mg-3 mg(2.5 mg base)/3 mL Solution for Nebulization daily as needed. 09/18/2018 11/05/2022 fluticasone-salmetero l (ADVAIR HFA) 230-21 mcg/actuation HFA Aerosol InhalerIndications:pr evention of bronchospasm with chronic bronchitis Inhale 2 puffs into the lungs 2 times daily. Indications: PREVENTION OF BRONCHOSPASM WITH CHRONIC BRONCHITIS 3 Inhaler 3 07/07/2018 12/27/2023 ascorbate calcium (VITAMIN C ORAL) Take by mouth daily. albuterol 90 mcg/actuation HFA Aerosol InhalerIndications:Ch ronic obstructive bronchitis Inhale 2 puffs into the lungs every 4 hours as needed for Wheezing. Use with spacer 1 Inhaler 5 07/08/2017 11/05/2022 polyethylene glycoL (Miralax) 17 gram Powder in Packet Take 17 g by mouth as needed. 11/05/2022 predniSONE (DELTASONE) 5 mg Tablet Take 7.5 mg by mouth daily. 11/05/2022 cyclobenzaprine (FLEXERIL) 10 mg tablet Take 10 mg by mouth 3 times daily as needed. zolpidem (AMBIEN) 10 mg tablet Take 1 tablet by mouth nightly as needed. 11/05/2013 02/25/2023 documented as of this encounter Plan of Treatment Not on file documented as of this encounter Procedures Procedure Name Priority Date/Time Associated Diagnosis Comments XR ELBOW 3 VIEWS LEFT (GENERIC) Routine 04/27/2022 11:46 AM EDT Chronic elbow pain, left documented in this encounter Results * XR Elbow 3 Views Left (GENERIC) (04/27/2022 11:46 AM EDT) Anatomical Region Laterality Modality Elbow Left Digital Radiogra phy Impressions 04/27/2022 12:26 PM EDT LEFT 1. ??Unchanged LEFT total shoulder arthroplasty. 2. ??Unchanged 4 mm radiolucency at metal bone interface around the humeral condylar component. Thank you for letting us participate in the care of this patient. ??If you are a health care provider and have any questions regarding this report, please contact the number below. ??For patients who have questions please contact the health rn acute care that requested your imaging first. ? Electronically signed by: Lisa Estrada MD, [facility] ([phone]), at 04/27/2022 12:26 PM Narrative 04/27/2022 12:26 PM EDT EXAMINATION: XR ELBOW 3 VIEWS LEFT (GENERIC) CLINICAL HISTORY: evidence of loosenin? TECHNIQUE: 3 views LEFT elbow COMPARISON: Multiple examinations since 2018 FINDINGS: LEFT A total elbow arthroplasty arthroplasty is present. The radial head is resected. Alignment: The prosthesis is unchanged in alignment. Complication: There is no fracture. 45 mm radiolucency at metal bone interface of the humeral condylar component is unchanged from August 2021. No radiolucency at humeral stem. Soft tissues: Unchanged surgical ana around the elbow joint. Procedure Note Lisa Estrada MD - 04/27/2022 EXAMINATION: XR ELBOW 3 VIEWS LEFT (GENERIC) CLINICAL HISTORY: evidence of loosenin? TECHNIQUE: 3 views LEFT elbow COMPARISON: Multiple examinations since 2018 FINDINGS: LEFT A total elbow arthroplasty arthroplasty is present. The radial head isresected. Alignment: The prosthesis is unchanged in alignment. Complication: There is no fracture. 45 mm radiolucency at metal bone interface of the humeral condylarcomponent is unchanged from August 2021. No radiolucency at humeral stem. Soft tissues: Unchanged surgical ana around the elbow joint. IMPRESSION LEFT 1. Unchanged LEFT total shoulder arthroplasty. 2. Unchanged 4 mm radiolucency at metal bone interface around thehumeral condylar component. Thank you for letting us participate in the care of this patient. If youare a health care provider and have any questions regarding this report,please contact the number below. For patients who have questions please contactthe health rn acute care that requested your imaging first. Masood Barriga MD IMG DX ORDERABLES documented in this encounter Visit Diagnoses Diagnosis Chronic elbow pain, left documented in this encounter Care Teams Law Office Receptionist Relationship Specialty Start Date End Date Curt Cassidy MD [address] [facility], [address] [address] PCP - General 10/10/10 documented as of this encounter
--- OUTSIDE RECORDS SUMMARY | 2024-10-30 01:32 | XMS_ITS | Encounter Summary ---
Author Organization [facility] Address [facility] [place] [address] Care Team Providers Care Conductor Orchestra Name Role Phone Curt Cassidy MD Primary Care Provider [phone] Encounter Details Date Type Department Care Team (Late st Contact Info) Description 10/14/2023 [place] [address] Jolynn Houser PA [facility] [place] [address] Pain in right hip Social History Tobacco Use Types Packs/Day Years [...] on file documented as of this encounter Results * XR Pelvis and Hip 2 Views Right (12/02/2023 11:44 AM EST) Anatomical Region Laterality Modality Pelvis, Hip Right Digital Radiogra phy Impressions 12/02/2023 1:47 PM EST 1. ??Unchanged mild bilateral hip joint osteoarthropathy. 2. ??Cam morphology of the proximal bilateral femurs may predispose to clinical symptoms of femoral acetabular impingement. 3. ??Mild progression of osteoarthropathy of the bilateral sacroiliac joints and pubic symphysis. Thank you for letting us participate in the care of this patient. ??If you are a health care provider and have any questions regarding this report, please contact the number below. ??For patients who have questions please contact the health critical care technician that requested your imaging first. ? Electronically signed by: Rosetta Banks MD, [facility] ([phone]), at 12/02/2023 1:47 PM Narrative 12/02/2023 1:47 PM EST EXAMINATION: XR PELVIS AND HIP 2 VIEWS RIGHT CLINICAL HISTORY: right hip pain (as entered by ordering provider in the order requisition) TECHNIQUE: AP view of the pelvis. AP and frog leg lateral views of the right hip. COMPARISON: Pelvis and right hip radiographs 02/17/2016 FINDINGS: Normal alignment of the right hip. No acute fracture of the right ??hip. Unchanged mild bilateral hip joint space narrowing. Cam morphology of the proximal bilateral femurs may predispose to clinical symptoms of femoral acetabular impingement. No displaced fracture of the pelvic ring. There is no widening of the pubic symphysis or sacroiliac joints. Mild progression of bilateral sacroiliac joint subchondral sclerosis and pubic symphysis subchondral sclerosis. No osseous erosion or ankylosis of the bilateral sacroiliac joints. There is degenerative disc disease and facet lower lumbar spine. Procedure Note Rosetta Banks MD - 12/02/2023 EXAMINATION: XR PELVIS AND HIP 2 VIEWS RIGHT CLINICAL HISTORY: right hip pain (as entered by ordering provider in theorder requisition) TECHNIQUE: AP view of the pelvis. AP and frog leg lateral views of the right hip. COMPARISON: Pelvis and right hip radiographs 02/17/2016 FINDINGS: Normal alignment of the right hip. No acute fracture of the right hip. Unchanged mild bilateral hip joint space narrowing. Cam morphology of the proximal bilateral femurs may predispose toclinical symptoms of femoral acetabular impingement. No displaced fracture of the pelvic ring. There is no widening of thepubic symphysis or sacroiliac joints. Mild progression of bilateral sacroiliac joint subchondral sclerosis andpubic symphysis subchondral sclerosis. No osseous erosion or ankylosis of the bilateral sacroiliac joints. There is degenerative disc disease and facet lower lumbar spine. IMPRESSION 1. Unchanged mild bilateral hip joint osteoarthropathy. 2. Cam morphology of the proximal bilateral femurs may predispose toclinical symptoms of femoral acetabular impingement. 3. Mild progression of osteoarthropathy of the bilateral sacroiliacjoints and pubic symphysis. Thank you for letting us participate in the care of this patient. If youare a health care provider and have any questions regarding this report,please contact the number below. For patients who have questions please contactthe health critical care technician that requested your imaging first. Electronically signed by: Rosetta Banks MD, [facility]([phone]), at 12/02/2023 1:47 PM Dorothea Davis MD IMG DX ORDERABLES documented in this encounter Visit Diagnoses Diagnosis Pain in right hip Pain in joint, pelvic region and thigh Pain in right hip Pain in joint, pelvic region and thigh Elbow joint replacement status, left documented in this encounter Care Teams Conductor Orchestra Relationship Specialty Start Date End Date Curt Cassidy MD [address] [facility] [address] [place] [address] PCP - General 10/10/10 documented as of this encounter
--- OUTSIDE RECORDS SUMMARY | 2024-10-30 01:32 | XMS_ITS | Encounter Summary ---
Author Organization [facility] Address [facility] [place] [place] [address] Care Team Providers Care Cutter Finisher Name Role Phone Curt Cassidy MD Primary Care Provider [phone] Reason for Referral * Consultation (Routine) - Authorized Specialty Diagnoses / Procedures Referred By Contac t Referred To Contact Weight and Wellness Diagnoses Hepatic fibrosis Metabolic dysfunction-associated steatohepatitis (MASH) Denise Ivory APRN [facility] [address] [place] [address] Referral ID Status Reason Start Date Expiration Date Visits Requested Visits Authorized [id number] Authorized Consult, Test & Treat 04/27/2024 04/27/2025 1 1 Encounter Details Date Type Department Care Team (Latest Contact Info) Description 04/27/2024 12:45 PM EDT Office Visit [place] [id number] Denise Ivory APRN [facility] [place] [address] [address] Hepatic fibrosis; Metabolic dysfunction-associated steatohepatitis (MASH) Social History Tobacco Use Types Packs/Day Years Used Date Smoking Tobacco: Never Smokeless Tobacco: Never Alcohol Use Standard Drinks/Week Comments No 0 (1 standard drink = 0.6 oz pur e alcohol) Sex and Gender Information Value Date Recorded Sex Assigned at Not on file Gender Identity Not on file Sexual Orientation Not on file documented as of this encounter Progress Notes * Denise Ivory APRN - 04/27/2024 12:45 PM EDT Gastroenterology and Hepatology Follow Up Visit Patient: Marla Denton : 1955 Provider: Denise Ivory APRN MSN Interval History: Ms. Marla Denton is a 68 y.o. female with a history of RA, HTN, Hypothyroid,Sjogrens, restrictive lung disease on 02 here for routine follow up. Has cut back what she is eating. Doesn't go back for second helping anymore. Still having trouble losing weight. Very restricted on her activity. Right hip pain has been better than it was. No new concerns since she was seen 6 months ago. 02 for 5 years-2L continuous. No tattoos No bood transfusion Alcohol-No history No illicit drug use No known family hx of liver disease APAP-Rare Herbal supplements-None Diabetes-No HTN-Yes, on meds. HLD-Yes, on statin. 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 9.6 29% 10-3 300 ROS: Constitutional: No unintentional weight loss, fatigue, nor fevers. CV: Denies chest pain, palpitations, dizziness, SOB, Difficulty lying flat, and swollen ankles Resp: No cough, no wheezing GI: As per HPI : No increase in frequency, no burning, no pain with urination Hem: No easy bruising, no swollen nodes, denies gums bleeding easily. MSK: No joint pain/swelling, no muscle pain Skin: No new rash,sores, or lesions. Neuro: No loss of strength, no headaches, or memory loss/changes. Psych: No anxiety, depression, or difficulty sleeping. PROBLEM LIST Patient Active Problem List Diagnosis Code Seronegative rheumatoid arthritis M06.00 Edema leg R60.0 Popliteal cyst M71.20 MRSA (methicillin resistant Staphylococcus aureus) infection A49.02 RA (rheumatoid arthritis) M06.9 Encounter for long-term (current) use of other medications Z79.899 Orthopnea R06.01 Hypertension, essential I10 Hypothyroidism E03.9 Rheumatoid arthritis M06.9 Osteoporosis M81.0 Vitamin D deficiency E55.9 Other pulmonary embolism and infarction I26.99 Other dyspnea and respiratory abnormality R06.09, R09.89 Abnormal weight gain R63.5 Cervicalgia M54.2 Pain in limb M79.609 nursing home (current) use of anticoagulants Z79.01 Left TKA 11/02 Z96.659 Chronic left-sided low back pain without sciatica M54.50, G89.29 Bilateral hand pain with deformities from RA. 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 Mcgill January 2018 Z96.622 Chronic prescription opiate use Z79.891 Anticoagulated on Coumadin Z79.01 Patient is [facility] [id number] S/P left elbow I&D, radial forearm flap (plastics) for dehiscence over TEA 05/28/18 Dr. 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 levothyroxine (Synthroid) 125 mcg tablet Take 125 mcg by mouth daily. cyclobenzaprine (Flexeril) 5 mg tablet Take 5 mg by mouth as needed. alendronate (Fosamax) 70 mg tablet Take 70 mg by mouth once a week. Eliquis 5 mg Tablet Take 5 mg by mouth 2 times daily. Restasis 0.05 % Dropperette EPINEPHrine 0.15 mg/0.15 mL Auto-Injector EPINEPHRINE 0.15 MG/0.15ML SOAJ naloxone (Narcan) 4 mg/actuation [place], Non-Aerosol NARCAN 4 MG/0.1ML LIQD multivitamin Capsule MULTIVITAMINS CAPS famotidine (Pepcid) 40 mg Tablet bumetanide (BUMEX) 0.5 mg Tablet TAKE 1 TABLET BY MOUTH ONCE DAILY (FOR SALT AND WATER RETENTION) 11 losartan (COZAAR) 100 mg Tablet Take 150 mg by mouth daily. Lactobacillus acidophilus (PROBIOTIC ORAL) Take by mouth daily. docosahexanoic acid/epa (FISH OIL ORAL) Take 2,000 Units by mouth daily. sulfamethoxazole-trimethoprim (BACTRIM DS) 800-160 mg Tablet Take 1 tablet by mouth 2 times daily. 60 tablet 5 DILT-XR 240 mg Capsule,Degradable Cnt Release daily. OXYGEN-AIR DELIVERY SYSTEMS MISC 2 L by [facility].(Non-Drug; Combo Route) route daily. docusate sodium (COLACE) 100 mg Capsule Take 100 mg by mouth daily. senna (SENOKOT) 8.6 mg Tablet Take by mouth daily. atorvastatin (LIPITOR) 20 mg Tablet Take 20 mg by mouth daily. Carboxymethylcellulose Sodium 0.25 % Dropperette Place 1 drop into both eyes 6 times daily. methadone (DOLOPHINE) 10 mg Tablet Take 5-10 mg by mouth nightly. doxepin (SINEQUAN) 50 mg capsule Take 1 capsule by mouth daily. (Patient taking differently: Take 50 mg by mouth nightly.) gabapentin (NEURONTIN) 300 mg capsule Take 2 capsules by mouth 2 times daily. Take at 0900 and 1400daily. (Patient taking differently: Take 300 mg by mouth 2 times daily. *taking two capsule 2 timesa day*) diphenhydrAMINE (BENADRYL) 25 mg capsule Take 1 capsule by mouth every 6 hours as needed for Itching (Patient requests to take this the same time as the Methadone). (Patient taking differently: Take 25 mg by mouth daily. Taking it with Methadone) ergocalciferol (VITAMIN D) 50,000 unit capsule 42254 unit, PO, once a month No current facility-administered medications for this visit. ALLERGIES/ADR Allergies Allergen Reactions Furosemide Palpitations Pt states when taken with Lisinopril adverse reactions she does not want to take Infliximab Anaphylaxis and Other (See Comments) throat swelling,chest heaviness Iodinated Contrast Media Anaphylaxis Iodine And Iodide Containing Products Anaphylaxis Lisinopril Palpitations Rituximab Other reaction(s): heart pounding, chest pains, hands red Vancomycin Anaphylaxis Wellbutrin [Bupropion Hcl] Other (See Comments) Causes retless leg syndrome Ms Contin [Morphine] Sulfa (Sulfonamide Antibiotics) Tolerates Bactrim Sulfisoxazole Sulfisoxazole Acetyl Unknown PHYSICAL EXAMINATION: There were no vitals filed for this visit. There is no height or weight on file to calculate BMI. Alert, and oriented. Easily converses with this proposal manager writer. Comfortable wob in ra. Skin and sclera are nonicteric. No rashes on exposed skin. Normoactive bs x4. No ttp x 4. No lower extremity edema. PERTINENT LABS AND IMAGING: Lab Results Component Value Date WBC 8.0 04/27/2024 HGB 10.9 (L) 04/27/2024 HCT 33.7 (L) 04/27/2024 MCV 94.7 (H) 04/27/2024 Lab Results Component Value Date ALT 63 (H) 04/27/2024 AST 43 (H) 04/27/2024 ALKPHOS 169 (H) 04/27/2024 BILITOT 0.3 04/27/2024 Chemistry Component Value Date/Time NA 139 04/27/2024 1339 K 4.2 04/27/2024 1339 CL 102 04/27/2024 1339 CO2 27 04/27/2024 1339 BUN 12 04/27/2024 1339 CREATININE 1.04 04/27/2024 1339 Component Value Date/Time CALCIUM 9.7 04/27/2024 1339 ALKPHOS 169 (H) 04/27/2024 1339 AST 43 (H) 04/27/2024 1339 ALT 63 (H) 04/27/2024 1339 BILITOT 0.3 04/27/2024 1339 Liver Fibrosis Score (Fib 4) was 1.25 at 04/27/2024 4:53 PM Risk of Fibrosis Low Intermediate High NAFLD Less than 1.3 1.3-2.67 Greater than 2.67 Hepatitis C Less than 1.45 1.45-3.25 Greater than 3.25 IMPRESSION/PLAN: Marla Denton is a 68 y.o. female with RA, HTN, Hypothyroid, Sjogrens, restrictive lung diseaseon 02 here for follow up on elevated LFTs thought to be 2/2 MASH with stage 2 fibrosis via fibroscan 6 months ago. Serologic workup negative. We discussed continued monitoring of the liver. I do think she would benefit from a glp-1. Referralplaced to weight and wellness for nutrition, and consult. We briefly discussed Rezdiffra which may be a reasonable option for her, but would prefer for her to trial a GLP-1 first. If not successful on GLP-1 would consider Rezdiffra. Has not had imaging-US ordered locally to her. Treatment is based in lifestyle modification and with weight weight loss there can be resolution ofsteatosis and regression of fibrosis in the liver. The goal is 10-15% total body weight loss, however with 5% of total body weight loss, 20% of people will have regression of steatosis. With 10% total body weight loss 90% of people will have regression of steatosis and 45% will have regression of fibrosis. We discussed diet, physical activity, and potential medications as detailed below. Additionally, in people with MASH, the main cause of morbidity and mortality is cardiovascular disease so I encouraged the patient follow up with PCP to aggressively maximize their cardiovascular health. Lifestyle Recommendations: Diet Recommend low in saturated fats, minimizing added sugars and high fructose corn syrup, cuttingout any sweetened beverages, minimizing processed carbohydrates. Discussed Mediterranean diet. Exercise. Encouraged increased physical activity and movement. Aerobic or resistance training are both beneficial, but try to have some vigorous exercise included. Pharmacologic: Vitamin E. There is evidence that Vitamin E can reduce progression of fatty liver and I recommend this in people who do not have diabetes Pioglitazone. Evidence that this can decrease fibrosis however side effects can include weight gainand possible increase risk of bladder cancer. Consider if additional antihyperglycemics are needed,however would recommend Metformin and GLP-1 initially. GLP-1 (Semiglutide, Liraglutide Tirzepatide). There is evidence that these can lead to reduced steatosis in the liver, largely due to their benefit of weight loss. Statins - reduce stiffness of liver the liver, reduce risk of liver cancer, statin use overall reduces liver related mortality and safety is comparable to people without liver disease. Recommend use when indicated. Metformin- reduce liver stiffness, recommend for treatment of prediabetes or diabetes Aspirin - observational studies that aspirin use reduces prevalence and progression of MASLD. Recommend use if another indication for ASA therapy The patient was given my contact information and will call me with concerns or questions. Follow upin 6 months. Total time spent on encounter today: Time spent reviewing records prior to this encounter: 5 minutes Time spent during encounter with patient including counselin minutes Time spent documenting encounter after office visit: 5 minutes Denise Ivory APRN MSN Section of Gastroenterology [place] [address] Cc: Curt Cassidy MD @PCPADD@ documented in this encounter Plan of Treatment Scheduled Orders Name Type Priority Associated Diagnoses Orde r Schedule US Abdomen Limited Hepatology Protocol Imaging Routine Hepatic fibrosis Metabolic Dysfunction-Associated Steatohepatitis (Mash) Expected: 04/27/2024 (Approximate), Expires: 10/27/2024 Scheduled Referrals Name Type Priority Associated Diagnoses Orde r Schedule [facility] to [facility] Outpatient Referral Routine Hepatic fibrosis Metabolic Dysfunction-Associated Steatohepatitis (Mash) Ordered: 04/27/2024 documented as of this encounter Results * (ABNORMAL) Liver Fibrosis Panel (04/27/2024 1:39 PM EDT) Liver Fibrosis Panel Test ? Result ?Flag ??Unit ?? RefValue FibroTest-ActiTest, S ??FibroTest Score ?0.10 ??FibroTest Stage ?F0 ??FibroTest Interpretation ? no fibrosis ?FibroTest estimates liver fibrosis ?FibroTest Score ?Stage ?Interpretation ?0.00-0.21 ?F0 ? no fibrosis ?0.21-0.27 ?F0-F1 ?no fibrosis ?0.27-0.31 ?F1 ? minimal fibrosis ?0.31-0.48 ?F1-F2 ?minimal fibrosis ?0.48-0.58 ?F2 ? moderate fibrosis ?0.58-0.72 ?F3 ? advanced fibrosis ?0.72-0.74 ?F3-F4 ?advanced fibrosis ?0.74-1.00 ?F4 ? severe fibrosis (Cirrhosis) ??ActiTest Score ? 0.34 ??ActiTest Grade ? A1 ??ActiTest Interpretation ?minimal activity ?ActiTest estimates necroinflammatory activity ?ActiTest Score ? Grade ?Interpretation ?0.00-0.17 ?A0 ? no activity ?0.17-0.29 ?A0-A1 ?no activity ?0.29-0.36 ?A1 ? minimal activity ?0.36-0.52 ?A1-A2 ?minimal activity ?0.52-0.60 ?A2 ? significant activity ?0.60-0.62 ?A2-A3 ?significant activity ?0.62-1.00 ?A3 ? severe activity ??FibroTest-ActiTest Comment ? SEE COMMENTS ?The reliability of results is dependent on compliance ?with the preanalytical and analytical conditions ?recommended by [employer]. The tests have to be ?deferred for: acute hemolysis, acute hepatitis, ?acute inflammation, extra hepatic cholestasis. The ?advice of a specialist should be sought for ?interpretation in chronic hemolysis and Gilbert's ?syndrome. The test interpretation is not validated ?in liver transplant patients. Isolated extreme values ?of one of the components should lead to caution in ?interpreting the results. In case of discordance ?between a biopsy result and a test, it is recommended ?to seek advice of a specialist. The causes of these ?discordances could be due to a flaw of the test or to ?a flaw in the biopsy: i.e. a liver biopsy has a 33% ?variability rate for one fibrosis stage. FibroTest is ?interpretable for chronic hepatitis B and C, alcoholic ?and non alcoholic steatosis. ActiTest is interpretable ?for chronic hepatitis B and C. ? A DDITIONAL INFORMATION -------- ?This test was developed and its performance characteristics ?determined by [facility] in a manner consistent with ?CLIA requirements. This test has not been cleared or ?approved by the U.S. Food and Drug Administration. ??[employer] Serial Number ?[id number] ??Apolipoprotein A1, S ? 144 ? mg/dL ??>=140 ??Pemzg-1-Bqaskwzuzxkv n, S ? 150 ? mg/dL ??100 - 280 ??Haptoglobin, S ? 221 ?H ?mg/dL ??30 - 200 ??Alanine Aminotransferase (ALT), S ?69 ? H ?U/L ?7-45 ??Gamma Glutamyltransferase (GGT), S ? 37 ? H ?U/L ?5 - 36 ??Bilirubin, Total, S ?0.3 ? mg/dL ??0.0 - 1.2 ?Test Performed by: ?[facility] ?[address] [place] [address] ?Breaker Oiler: Tayla Gallo Ph.D.; CLIA# [id number] ?Test Performed by: ?[facility] ?[address] [place] [address] ?Breaker Oiler: Tayla Gallo Ph.D.; CLIA# [id number]) [facility] Blood 04/27/2024 1:39 PM EDT 04/27/2024 3:11 PM EDT Narrative Resulting Agency Comment Spec In Lab Denise Ivory APRN LAB SEND OUT ORDER EVY [facility] [place] [address] * (ABNORMAL) Comprehensive metabolic panel (non-fasting) (04/27/2024 1:39 PM EDT) Glucose 116 65 - 199 mg/dL [facility] Comment:Diabetes: >=200 mg/d L plus symptoms Blood Urea Nitrogen 12 8 - 18 mg/dL [facility] Creatinine 1.04 0.70 - 1.20 mg/dL [facility] Sodium 139 135 - 145 mmol/L [facility] Potassium 4.2 3.5 - 5.0 mmol/L [facility] Comment: Please note: ??Patients with WBC >100,000 may have falsely elevated Potassium levels. ??For accurate Potassium quantification in these patients send serum separator tube (gold top) for subsequent determinations. ??Contact the Clinical Chemistry Laboratory if there are any questions. Chloride 102 98 - 107 mmol/L [facility] Carbon Dioxide 27 22 - 31 mmol/L [facility] Anion Gap 10 5 - 15 mmol/L [facility] Calcium 9.7 8.5 - 10.5 mg/dL [facility] Protein, Total 7.4 6.1 - 8.0 g/dL [facility] Albumin 4.1 3.2 - 5.2 g/dL [facility] Aspartate Aminotransferase 43(H) 0 - 30 unit/L [facility] Alanine Aminotransferase 63(H) 0 - 30 unit/L [facility] Alkaline Phosphatase 169(H) 35 - 105 unit/L [facility] Bilirubin, Total 0.3 0.2 - 1.3 mg/dL [facility] Est Glomerular Filtration Rate 59(L) >=60 mL/min/1. 73 m?? [facility] Comment: This patient's estimated GFR was calculated using the 2020 CKD-EPI equation. The estimated GFR can vary from the measured GFR by up to 30% in the absence of rapidly changing kidney function. Assessment of the estimated GFR is not appropriate when creatinine concentrations are rapidly changing. For clinical situations in which a more precise estimate of GFR is necessary, consider alternative methods of GFR estimation such as a 24-hour urine creatinine clearance. Assignment of CKD stage 1-5 for patients with an eGFR near the transition point between stages may be based on clinical assessment of muscle mass and symptoms in addition to eGFR. Blood 04/27/2024 1:39 PM EDT 04/27/2024 1:50 PM EDT Narrative Resulting Agency Comment Spec In Lab Denise Ivory TEA TREE FARMER CHEMISTRY ORDERABL ES [facility] [place] [address] documented in this encounter Visit Diagnoses Diagnosis Hepatic fibrosis Cirrhosis of liver without mention of alcohol Metabolic dysfunction-associated steatohepatitis (MASH) documented in this encounter Care Teams Cutter Finisher Relationship Specialty Start Date End Date Curt Cassidy MD [address], [facility] [address] [place] [address] PCP - General 10/10/10 documented as of this encounter
--- OUTSIDE RECORDS SUMMARY | 2024-10-30 01:32 | XMS_ITS | Encounter Summary ---
Author Organization [facility] Address [facility] [place] [address] Care Team Providers Care Lead Nurse Name Role Phone Curt Cassidy MD Primary Care Provider [phone] Encounter Details Date Type Department Care Team (Late st Contact Info) Description 12/27/2023 Telephone [facility] [place] [phone] Jazmine Coronado Social History Tobacco Use Types Packs/Day Years Used Date Smoking Tobacco: Never Smokeless Tobacco: Never Alcohol Use Standard Drinks/Week Comments No 0 (1 standard drink = 0.6 oz pur e alcohol) Sex and Gender Information Value Date Recorded Sex Assigned at Not on file Gender Identity Not on file Sexual Orientation Not on file documented as of this encounter Miscellaneous Notes * Telephone Encounter - Jazmine Coronado - 12/27/2023 1:35 PM EST Called patient to make f/u appointment no answer no voicemail. Patient needs f/u visit with dr puente in 3 weeks with xray prior Appointment note: f/u low back pain xray prior. documented in this encounter Plan of Treatment Not on file documented as of this encounter Visit Diagnoses Not on filedocumented in this encounter Care Teams Lead Nurse Relationship Specialty Start Date End Date Curt Cassidy MD [address] [place] [address] (work) PCP - General 10/10/10 documented as of this encounter
--- OUTSIDE RECORDS SUMMARY | 2024-10-30 01:32 | XMS_ITS | Encounter Summary ---
Author Organization [place] [address] Care Team Providers Care Fire Officer Name Role Phone Curt Cassidy MD Primary Care Provider [phone] Encounter Details Date Type Department Care Team (Latest Contact Info) Description 12/27/2023 Travel Social History Tobacco Use Types Packs/Day [...] on filedocumented in this encounter Care Teams Fire Officer Relationship Specialty Start Date End Date Curt Cassidy MD [address] [facility] [address] [place] [address] PCP - General 10/10/10 documented as of this encounter
--- OUTSIDE RECORDS SUMMARY | 2024-10-30 01:32 | XMS_ITS | Encounter Summary ---
Author Organization [facility] Address [facility] [place] [address] Care Team Providers Care Live Truck Operator Name Role Phone Curt Cassidy MD Primary Care Provider [phone] Reason for Visit * Consultation (Routine) - Closed Specialty Diagnoses / Procedures Referred By Contac t Referred To Contact Infectious Diseases Diagnoses Chronic elbow pain, left Chronic elbow pain, left Masood Barriga MD [facility] [place] [address] [facility] Infectious Dis [address] [place] [address] Referral ID Status Reason Start Date Expiration Date V isits Requested Visits Authorized [id number] Closed Consult, Test & Treat 03/27/2022 03/27/2023 1 1 Encounter Details Date Type Department Care Team (Late st Contact Info) Description 04/27/2022 10:00 AM EDT Office [place] [address] Kip Santana MD [facility] [place] [address] 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, 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; 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 Social History Tobacco Use Types Packs/Day Years Used Date Smoking Tobacco: Never Smokeless Tobacco: Never Alcohol Use Standard Drinks/Week Comments No 0 (1 standard drink = 0.6 oz pur e alcohol) Sex and Gender Information Value Date Recorded Sex Assigned at Not on file Gender Identity Not on file Sexual Orientation Not on file documented as of this encounter Last Filed Vital Signs Vital Sign Reading Time Taken Comments Blood Pressure 133/45 04/27/2022 10:04 AM EDT Pulse 92 04/27/2022 10:04 AM EDT Temperature 36.2 ??C (97.2 ??F) 04/27/2022 1 0:04 AM EDT Respiratory Rate - - Oxygen Saturation 96% 04/27/2022 10: 04 AM EDT 2L Inhaled Oxygen Concentration - - Weight 74.8 kg (165 lb) 04/27/2022 10:0 4 AM EDT self reported Height 149.9 cm (4' 11) 04/27/2022 10: 04 AM EDT Body Mass Index 33.33 04/27/2022 10:04 AM EDT documented in this encounter Progress Notes * Kip Santana MD - 04/27/2022 10:00 AM EDT Images from the original note were not included. INFECTIOUS DISEASE OUTPATIENT CONSULTATION NOTE Reason for Consult: Chronic PJI left elbow History of Present Illness: Marla Denton is a 66 y.o. female with RA on leflunomide, s/p hardware placement left elbow complicated with PJI 2018 currently on Bactrim DS BID for suppressive therapy who was referred from for the concern of recurrent PJI left elbow. Patient has a long history of RA that difficult to controlled and failed on multiple regimens. As a result of her RA, she has multiple joints destruction leading surgeries involving hardware replacement in left elbow (2017), right shoulder (1991), both knees, and C1-2 fusion. Patient had elbow surgery in 2018 at [facility]. It was complicated with postop infection which culture grew Enterobacter cloacae. She did not improve with IV therapy followed by oral PO ciprofloxacin and eventually transfer to [facility]. She required debridement with hardware retention and myocutaneous flap by . ID was consulted at that time and recommended lifelong suppression with Bactrim after IV meropenem. She was doing well until around Sep when she started noticing the swelling of her left elbow along the incision site. There was a yellowish drainage and increasing pain. She was seen by Ortho and they attempted to do a joint aspiration but it was unsuccessful. There was a concern of cutaneous fistula and Dr. Barriga discussed with her for a potential hardware removal; however, at that point, patient want to wait. The drainage was slowly reduced and eventually closed within a couple of months without any additional antibiotics or intervention. After the wound was healed, she underwent fluoroscopic joint aspiration on 03/07 with only small amount of fluid obtained. It was not enough to be sent for the analysis. The fluid culture showed no organism seen on GS, no neutrophils, and culture showed no growth for 14 days. Her x-ray of the left elbow showed fixed hardware with no lucency or concern of infection. Today, she repots of doing well and has no complaints. No open spots on the left elbow currently. The area of the prior opening has healed and there was only mild pink area around it. Her elbow pain from a couple months ago has gone and now has only mild pain at her baseline. She has very limited movement of her right shoulder at baseline and able to ambulate using cane/walker. She lives with hersister who is the primary adult daycare coordinator who helps her with daily activities. Patient denies fever, chills, SOB, abdominal pain. She reports the symptoms mainly pain of her RA is as good as it can be. Patient has been following with rheumatology here and seen recently in the clinic. She was recommendedto continue Leflunomide. Past Medical History: Past Medical History: Diagnosis Date ??? Allergic state ??? Arthritis ??? Chronic obstructive bronchitis ??? Elbow wound, left, initial encounter 04/28/2018 ??? Hyperlipidemia 05/19/2015 ??? Hypertension ??? Sjogren's syndrome ??? Thyroid disease Past Surgical History: Past Surgical History: Procedure Laterality Date ??? CERVICAL FUSION ??? HAND TENDON SURGERY ??? HYSTERECTOMY, TOTAL ABDOMINAL ??? PRO EXPLORE/DRAIN ELBOW FOR INFECT Left 05/28/2018 ARTHROTOMY, ELBOW, EXPLORATION, DRAINAGE, OR REMOVAL FB (WRVU 6.08) performed by Lorie Fuller MD at [facility] MAIN OR ??? PRO MUSCLE-SKIN FLAP, ARM Left 05/28/2018 FLAP, MYOCUTANEOUS OR FASCIOCUTANEOUS, UPPER EXTREMITY (WRVU 17.04) performed by Rupert Masters MD at [facility] MAIN OR ??? PRO REVISE ULNAR NERVE AT ELBOW Left 05/28/2018 NEUROPLASTY &/OR TRANSPOSITION, ULNAR NERVE AT ELBOW (WRVU 7.26) performed by Lorie Fuller MD at [facility] MAIN OR ? ? PRO SPLIT GRFT TRUNK, ARM, LEG <100SQCM N/A 05/28/2018 SPLIT THICK SKIN GRAFT,100 SQ CM OR LESS, ARMS (WRVU 9.9) performed by Rupert Masters MD at [facility] MAIN OR ??? PRO TOTAL KNEE ARTHROPLASTY 11/02/2013 @TOTAL KNEE ARTHROPLASTY performed by Mayco Montanez Jr., MD at [facility] MAIN OR ??? SHOULDER SURGERY ??? TOTAL ELBOW ARTHROPLASTY Left 01/2018 ??? XR JOINT ASPIRATION - MEDIUM JOINT LEFT Left 09/15/2021 XR Fluoro Guided Joint Aspiration Medium Left 09/15/2021 Taty Kunz MD [facility] RAD XRAY ??? XR JOINT ASPIRATION - MEDIUM JOINT LEFT Left 03/07/2022 XR Fluoro Guided Joint Aspiration Medium Left 03/07/2022 Paige Perea PA [facility] RAD XRAY Medications: ??? budesonide-formoteroL (Symbicort) 160-4.5 mcg/actuation HFA Aerosol Inhaler ??? cholecalciferol, Vitamin D3, 1,250 mcg (50,000 unit) Capsule ??? pantoprazole EC (Protonix) 40 mg Tablet, Delayed Release (E.C.) ??? risedronate (ACTONEL) 35 mg Tablet ??? Saccharomyces boulardii (FLORASTOR) 250 mg Capsule ??? Eliquis 5 mg Tablet ??? Restasis 0.05 % Dropperette ??? EPINEPHrine 0.15 mg/0.15 mL Auto-Injector ??? naloxone (Narcan) 4 mg/actuation [place], Non-Aerosol ??? multivitamin Capsule ??? famotidine (Pepcid) 40 mg Tablet ??? acyclovir (Zovirax) 800 mg Tablet ??? amLODIPine (Norvasc) 2.5 mg Tablet ??? leflunomide (Arava) 20 mg Tablet ??? alendronate (Fosamax) 70 mg Tablet ??? bumetanide (BUMEX) 0.5 mg Tablet ??? losartan (COZAAR) 100 mg Tablet ??? levothyroxine (SYNTHROID) 150 mcg Tablet ??? Lactobacillus acidophilus (PROBIOTIC ORAL) ??? docosahexanoic acid/epa (FISH OIL ORAL) ??? sulfamethoxazole-trimethoprim (BACTRIM DS) 800-160 mg Tablet ??? DILT-XR 240 mg Capsule,Degradable Cnt Release ??? ipratropium-albuterol (DUONEB) 0.5 mg-3 mg(2.5 mg base)/3 mL Solution for Nebulization ??? OXYGEN-AIR DELIVERY SYSTEMS MISC ??? fluticasone-salmeterol (ADVAIR HFA) 230-21 mcg/actuation HFA Aerosol Inhaler ??? ascorbate calcium (VITAMIN C ORAL) ??? docusate sodium (COLACE) 100 mg Capsule ??? senna (SENOKOT) 8.6 mg Tablet ??? atorvastatin (LIPITOR) 20 mg Tablet ??? albuterol 90 mcg/actuation HFA Aerosol Inhaler ??? polyethylene glycoL (Miralax) 17 gram Powder in Packet ??? predniSONE (DELTASONE) 5 mg Tablet ??? Carboxymethylcellulose Sodium 0.25 % Dropperette ??? methadone (DOLOPHINE) 10 mg Tablet ??? cyclobenzaprine (FLEXERIL) 10 mg tablet ??? doxepin (SINEQUAN) 50 mg capsule ??? gabapentin (NEURONTIN) 300 mg capsule ??? zolpidem (AMBIEN) 10 mg tablet ??? diphenhydrAMINE (BENADRYL) 25 mg capsule ??? ergocalciferol (VITAMIN D) 50,000 unit capsule Allergies: Allergies Allergen Reactions ??? Furosemide Palpitations Pt states when taken with Lisinopril adverse reactions she does not want to take ??? Infliximab Anaphylaxis and Other (See Comments) throat swelling,chest heaviness ??? Iodinated Contrast Media Anaphylaxis ??? Iodine And Iodide Containing Products Anaphylaxis ??? Lisinopril Palpitations ??? Rituximab Other reaction(s): heart pounding, chest pains, hands red ??? Vancomycin Anaphylaxis ??? Wellbutrin [Bupropion Hcl] Other (See Comments) Causes retless leg syndrome ??? Ms Contin [Morphine] ??? Sulfa (Sulfonamide Antibiotics) Tolerates Bactrim ??? Sulfisoxazole ??? Sulfisoxazole Acetyl Unknown Family History: Family History Problem Relation Age of Onset ??? Heart Disease Mother ??? Hypertension Mother ??? Thyroid Disease Mother ??? Cancer Father ??? Heart Disease Father ??? Hypertension Father ??? Thyroid Disease Sister ??? Diabetes Maternal Uncle ??? Thyroid Disease Sister ??? Amblyopia Neg Hx ??? Cataracts Neg Hx ??? Glaucoma Neg Hx ??? Macular Degeneration Neg Hx ??? Retinal Detachment Neg Hx ??? Strabismus Neg Hx Social History: Social History Tobacco Use ??? Smoking status: Never Smoker ??? Smokeless tobacco: Never Used Vaping Use ??? Vaping Use: Never used Substance Use Topics ??? Alcohol use: No ??? Drug use: No ROS: 14 point ROS (-) except as above Physical Examination General appearance: Patient is alert oriented x3. No acute distress. Appropriate mood and affect. HEENT: No dry lip. normal oral mucosa. Lungs: Clear to auscultation bilaterally. no wheezing.no crackles.good lungs expansion. Heart: Normal S1-S2. no rubs or gallops. no murmurs. Abdomen: Nontender .no guarding. no rigidity. bowel sounds positive. Extremities: No pitting edema. Deformity of joints in both hands. Multiple surgical scar on the dorsum of her wrists, shoulder and elbow. Left elbow - no opening wound. Mild pink area around the prior opened spot. Not warm, no tender, no area of fluctuation. Very limited movement of right shoulder.No knee swelling on both sides. Neuro: No focal neurological deficit. cranial nerves grossly intact. gait was not evaluated. Labs: CRP 3.2 (02/12/22) ESR 65 02/12/22 Microbiology: Joint fluid Cx NG, no neutrophils, no organism seen on GS on 03/07/22 Imaging: X-ray Elbow 02/12/22 FINDINGS: LEFT A total elbow arthroplasty arthroplasty [...] bone interface around the humeral condylar component. Assessment and Plan: Marla Denton is a 66 y.o. female with RA on leflunomide, s/p hardware placement left elbow complicated with PJI 2018 currently on Bactrim DS BID for suppressive therapy who was referred from for the concern of recurrent PJI left elbow. Patient has a long history of RA that difficult to controlled and failed on multiple regimens. As a result of her RA, she has multiple joints destruction leading surgeries involving hardware replacement in left elbow (2017), right shoulder (1991), both knees, and C1-2 fusion. She developed left elbow pain with opening wound at the incision site on the left elbow in Nov without systemic symptoms. She denies injuries that leading to this event. The wound has healed without antibiotic or interventions in 3 months. Left elbow fluid culture on 03/07 showed NG. She is currently stable and back to her baseline. She has been taking Bactrim with no side effects. Since patient is doing well and the wound is healed up nicely, at this point, we felt that wait andwatch strategy is appropriate. Her CRP was in normal range on 02/12 which was reassuring. It is difficult to tell whether the drainage from left elbow area was coming from the joint or if that was more likely skin and soft tissue related. There is a possibility that there is an infection going on inher left elbow but it is probably a less virulence organisms which bactrim may be adequate as a treatment. If she has recurrent pain/swelling or drainage in the near future, we would recommend I&D and considering hardware removal. Patient is comfortable with this plan and she will continue to monitor her symptoms. No appointment is needed in ID clinic. She will contact us for any questions orconcerns. Recommendations: - Continue Bactrim DS 1 tab BID for suppressive therapy - Monitor symptoms of swelling/pain/drainage of the left elbow Plan discussed with Dr.Altomare Kip Santana MD Infectious Diseases Fellow [facility] Pager: [phone] 04/27/2022 2:57 PM * No Harris DO - 04/27/2022 10:00 AM EDT I have seen the patient and reviewed the history and physical and I agree with the details as written by Dr Santana. The assessment and plan were formulated in discussion with me and I agree with them as documented. 66F with chronic PJI left elbow since 2018, on suppressive bactrim, who developed spontaneous drainage along incision line in 09/2021 without significant signs or symptoms of SSTI. Drainage eventually resolved on its own without further antibiotics or intervention. 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 Would therefore recommend continued monitoring and consideration of hardware removal, should it start to drain again. Recommend continuing suppressive bactrim for now. No Harris DO, MPH Infectious Disease documented in this encounter Plan of Treatment Scheduled Referrals Name Type Priority Associated Diagnoses Order Schedule Referral to Infectious Disease and [facility] Outpatient Referral Routine Chronic elbow pain, left Ordered: 03/27/2022 documented as of this encounter Visit Diagnoses Diagnosis 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, 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 [facility] current use of antibiotics Encounter for long-term (current) use of antibiotics documented in this encounter Care Teams Live Truck Operator Relationship Specialty Start Date End Date Curt Cassidy MD [address] [facility], [address] [address] PCP - General 10/10/10 documented as of this encounter
--- OUTSIDE RECORDS SUMMARY | 2024-10-30 01:32 | XMS_ITS | Encounter Summary ---
Author Organization [place] [address] Care Team Providers Care Restrooms Or Lounges Maid Name Role Phone Curt Cassidy MD Primary Care Provider [phone] Reason for Referral * Consultation (Routine) - Closed Specialty Diagnoses / Procedures Referred By Contac t Referred To Contact [facility] Diagnoses Right hip pain Low back & Brock hip pain/ no imaging Curt Cassidy MD [address] [place] [address], [address] [address] [facility] [place] [address] Referral ID Status Reason Start Date Expiration Date V isits Requested Visits Authorized [id number] Closed Consult, Test & Treat PCP Updated and/or Approved 11/04/2023 11/03/2024 1 1 Encounter Details Date Type Department Care Team (Late st Contact Info) Description 11/04/2023 Transcribe Orders eDH Incoming Referrals [phone] Curt Cassidy MD [address] [place] [address], [address] [address] Right hip pain Social History [...] Associated Diagnoses Orde r Schedule Referral to Spine Center Outpatient Referral Routine Right hip pain Ordered: 11/04/2023 documented as of this encounter Visit Diagnoses Diagnosis Right hip pain Pain in joint, pelvic region and thigh documented in this encounter Care Teams Restrooms Or Lounges Maid Relationship Specialty Start Date End Date Curt Cassidy MD [address], [place] [address] [place] [address] PCP - General 10/10/10 documented as of this encounter
--- OUTSIDE RECORDS SUMMARY | 2024-10-30 01:32 | XMS_ITS | Encounter Summary ---
Author Organization [facility] Address [facility] [place] [address] Care Team Providers Care Concrete Fence Builder Name Role Phone Curt Cassidy MD Primary Care Provider [phone] Encounter Details Date Type Department Care Team (Latest Contact Info) Description 11/05/2022 12:51 PM EST - 11/05/2022 11:59 PM [facility] Hospital Encounter XRay at [address] [place] [address] Masood Barriga MD [facility] [place] [address] Chronic elbow pain, left Discharge Disposition: Home [...] MG/0.15ML SOAJ 01/16/2021 naloxone (Narcan) 4 mg/actuation [place], Non-Aerosol NARCAN 4 MG/0.1ML LIQD 02/02/2019 multivitamin [...] OXYGEN-AIR DELIVERY SYSTEMS MISC 2 L by [facility].(Non-Drug; Combo Route) route daily. docusate sodium (COLACE) [...] 11/05/2013 ergocalciferol (VITAMIN D) 50,000 unit capsule 29722 unit, PO, once a month 10/23/2010 pantoprazole EC (Protonix) 40 mg Tablet, Delayed Release (E.C.) BID@0730,199903/16/2021 12/27/2023 risedronate (ACTONEL) 35 mg Tablet Take 35 mg by mouth every 7 days. 05/01/2016 12/27/2023 acyclovir (Zovirax) 800 mg Tablet TAKE ONE TABLET BY MOUTH EVERY DAY 90 tablet 1 02/10/2021 09/27/2023 leflunomide (Arava) 20 mg TabletIndications:Rhe umatoid arthritis, involving unspecified site, unspecified rheumatoid factor presence TAKE ONE TABLET BY MOUTH DAILY 90 tablet 3 08/16/2020 09/27/2023 levothyroxine (SYNTHROID) 150 mcg Tablet 125 mcg. 5 06/24/2019 12/27/2023 fluticasone-salmetero l (ADVAIR HFA) 230-21 mcg/actuation HFA Aerosol InhalerIndications:pr evention of bronchospasm with chronic bronchitis Inhale 2 puffs into the lungs 2 times daily. Indications: PREVENTION OF BRONCHOSPASM WITH CHRONIC BRONCHITIS 3 Inhaler 3 07/07/2018 12/27/2023 zolpidem (AMBIEN) 10 mg tablet Take 1 tablet by mouth nightly as needed. 11/05/2013 02/25/2023 documented as of this encounter Plan of Treatment Not on file documented as of this encounter Procedures Procedure Name Priority Date/Time Associated Diagnosis Comments XR ELBOW 3 VIEWS LEFT (GENERIC) Routine 11/05/2022 1:45 PM EST Chronic elbow pain, left documented in this encounter Results * XR Elbow 3 Views Left (GENERIC) (11/05/2022 1:45 PM EST) Anatomical Region Laterality Modality Elbow Left Digital Radiogra phy Impressions 11/05/2022 2:02 PM EST Unchanged lucency around the distal humeral component of the total left elbow arthroplasty without acute radiographic abnormality. Thank you for letting us participate in the care of this patient. ??If you are a health care provider and have any questions regarding this report, please contact the number below. ??For patients who have questions please contact the health child care team lead that requested your imaging first. ? Narrative 11/05/2022 2:02 PM EST EXAMINATION: XR ELBOW 3 VIEWS LEFT (GENERIC) CLINICAL HISTORY: s/p left elbow arthroplasty TECHNIQUE: 3 views LEFT elbow COMPARISON: Radiographs June 28, 2016; May 15, 2018; February 12 and April 27, 2022 FINDINGS: Cemented total elbow arthroplasty hardware is intact without periprosthetic fracture, change in position or joint malalignment. The smoothly corticated lucency along both the medial and lateral condylar margins of the distal humeral component is unchanged. The radial head resection line has smooth cortication. No erosion or periostitis. Bone mineralization is diffusely decreased. Unchanged anteromedial soft tissue surgical clips. No focal soft tissue abnormality. Procedure Note Taty Kunz MD - 11/05/2022 EXAMINATION: XR ELBOW 3 VIEWS LEFT (GENERIC) CLINICAL HISTORY: s/p left elbow arthroplasty TECHNIQUE: 3 views LEFT elbow COMPARISON: Radiographs June 28, 2016; May 15, 2018; February 12 and April 27, 2022 FINDINGS: Cemented total elbow arthroplasty hardware is intact withoutperiprosthetic fracture, change in position or joint malalignment. The smoothlycorticated lucency along both the medial and lateral condylar margins of the distalhumeral component is unchanged. The radial head resection line has smooth cortication. No erosion or periostitis. Bone mineralization is diffusely decreased. Unchanged anteromedial soft tissue surgical clips. No focal soft tissue abnormality. IMPRESSION Unchanged lucency around the distal humeral component of the total leftelbow arthroplasty without acute radiographic abnormality. Thank you for letting us participate in the care of this patient. If youare a health care provider and have any questions regarding this report,please contact the number below. For patients who have questions please contactthe health child care team lead that requested your imaging first. Masood Barriga MD IMG DX ORDERABLES documented in this encounter Visit Diagnoses Diagnosis Chronic elbow pain, left documented in this encounter Care Teams Concrete Fence Builder Relationship Specialty Start Date End Date Curt Cassidy MD [address], [facility] [address] [place] [address] PCP - General 10/10/10 documented as of this encounter
--- OUTSIDE RECORDS SUMMARY | 2024-10-30 01:32 | XMS_ITS | Encounter Summary ---
Author Organization [facility] [place] [place] [address] Care Team Providers Care Stone And Concrete Washer Name Role Phone Curt Cassidy MD Primary Care Provider [phone] Encounter Details Date Type Department Care Team (Latest Contact Info) Description 11/05/2022 Travel Social History Tobacco Use Types Packs/Day [...] on filedocumented in this encounter Care Teams Stone And Concrete Washer Relationship Specialty Start Date End Date Curt Cassidy MD [address] [facility] [address] [place] [address] PCP - General 10/10/10 documented as of this encounter
--- OUTSIDE RECORDS SUMMARY | 2024-10-30 01:32 | XMS_ITS | Encounter Summary ---
Author Organization [facility] Address [facility] [place] [address] Care Team Providers Care Pants Cutter Name Role Phone Curt Cassidy MD Primary Care Provider [phone] Reason for Visit * Reason Comments Follow-up Follow up scoliosis Encounter Details Date Type Department Care Team (Late st Contact Info) Description 01/13/2024 10:30 AM EST Office Visit [facility] [place] [address] Christopher Gilbert MD [facility] [place] [address] Other idiopathic scoliosis, thoracolumbar region; Bilateral thoracic back pain, unspecified chronicity; Chronic left-sided low back pain without sciatica Social History Tobacco Use Types Packs/Day Years [...] Sign Reading Time Taken Comments Blood Pressure - - Pulse - - Temperature - - Respiratory Rate - - Oxygen Saturation - - Inhaled Oxygen Concentration - - Weight 83.5 kg (184 lb) 01/13/2024 10:21 AM EST Height 148.6 cm (4' 10.5) 01/13/2024 10:[address] Body Mass Index 37.8 01/13/2024 10:21 AM EST documented in this encounter Progress Notes * Christopher Gilbert MD - 01/13/2024 10:30 AM EST Interim history: The patient returns for the first time since the visit of 12/27/2023 and after completion of scoliosis radiographs. She continues to experience left low lumbar to lumbosacral pain primarily with sitting after standing or ambulating for prolonged periods. She reports an additional symptom of pain and spasms across the posterior lower thoracic region that is consistently increased with back extension from a forward flexed position. She explains that the motor on her adjustable bed malfunctioned a few weeks ago. The patient cannot sleep lying flat because of her respiratory problems. Therefore, she and her propped up the head of the bed on ametal lock box over the past two weeks. A new adjustable bed was recently delivered. Pain is intermittent and currently graded as 3/10 in the mid thoracic region. Pain is worst in the thoracic back. The patient denies upper or lower extremity pain radiation. She denies lower extremity numbness or tingling, but states that she can experience altered sensation in the feet while seated. At times, it feels as if something is resting on the foot. I have independently reviewed the scoliosis radiographs of 01/13/2024. The study demonstrates a mildS-shaped scoliotic curvature that is convex to the left at approximately T10 and with subtle compensatory convex right curvature in the lumbar spine. Sagittal and coronal balance are within normal limits. Lumbar lordosis is increased. Evidence of facet degenerative changes is noted throughout the thoracolumbar spine. Assessment: Encounter Diagnoses Name Primary? Other idiopathic scoliosis, thoracolumbar region Bilateral thoracic back pain, unspecified chronicity Chronic left-sided low back pain without sciatica Scoliosis radiographs have been reviewed today with the patient. The study reveals mild curvature. Since the last visit, pain has been most prominent in the mid back. This likely represents a combination of spinal curvature and altered sleep posture following bed malfunction. I believe that the patient's pain is primarily mechanical in nature and represents a combination ofmyofascial, facet-mediated and sacroiliac factors. I recommend outpatient PT treatment. The patient expressed concerns about her ability to tolerate outpatient PT in her local area as such treatment has led to pain flares in the past. I therefore recommended a spine-focused and movement based approach via MDT in our center. I explained that the bulk of treatment in such a program is carried out independently through consistent performance of home exercise. The patient was not prepared to commit to any specific course of treatment, as she is currently unsure about the availability of transportation to take her to appointments. We agreed that she will contact me if she is interested in pursuing MDT treatment here. If she doesnot have transportation and remains concerned about the possibility of traditional PT treatment flaring her chronic pain symptoms, I have advised the patient to consult with her primary care physician to request referral for home PT. Christopher Gilbert MD, MS documented in this encounter Plan of Treatment Not on file documented as of this encounter Visit Diagnoses Diagnosis Other idiopathic scoliosis, thoracolumbar region Bilateral thoracic back pain, unspecified chronicity Chronic left-sided low back pain without sciatica documented in this encounter Care Teams Pants Cutter Relationship Specialty Start Date End Date Curt Cassidy MD [address] [facility], [address] [address] PCP - General 10/10/10 documented as of this encounter
--- OUTSIDE RECORDS SUMMARY | 2024-10-30 01:32 | XMS_ITS | Encounter Summary ---
Author Organization [facility] [place] [address] Care Team Providers Care Service Superintendent Name Role Phone Curt Cassidy MD Primary Care Provider [phone] Encounter Details Date Type Department Care Team (Latest Contact Info) Description 02/25/2023 Travel Social History Tobacco Use Types Packs/Day [...] on filedocumented in this encounter Care Teams Service Superintendent Relationship Specialty Start Date End Date Curt Cassidy MD [address] [facility], [facility] [address] [place] [address] PCP - General 10/10/10 documented as of this encounter
--- OUTSIDE RECORDS SUMMARY | 2024-10-30 01:32 | XMS_ITS | Encounter Summary ---
Author Organization [facility] Address [facility] [place] [place] [address] Care Team Providers Care Funeral Counselor Name Role Phone Curt Cassidy MD Primary Care Provider [phone] Reason for Visit * Reason Comments Follow Up Surgery XR 01-05-22 Left t otal elbow arthroplasty Encounter Details Date Type Department Care Team (Late st Contact Info) Description 12/02/2023 1:00 PM EST Office [place] [address] Masood Barriga MD [facility] [place] [address] Elbow joint replacement status, left Social History Tobacco Use Types Packs/Day Years [...] - Inhaled Oxygen Concentration - - Weight 82.6 kg (182 lb) 12/02/2023 1:02 PM EST Height 148.6 cm (4' 10.5) 12/02/2023 1:02 PM ES T Body Mass Index 37.39 12/02/2023 1:02 PM EST documented in this encounter Progress Notes * Elvira Fontenot PA - 12/02/2023 1:00 PM EST Orthopaedic Surgery Clinic Note Chief Complaint: 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 Right hand dominant female who presents for follow-up regarding her left total elbow arthroplasty with a previous draining sinus. To review,the patient has a very complex history related to her left total elbow. She does have a history of rheumatoid arthritis and underwent a left total elbow arthroplasty in [address] [facility] with [address]. Mcgill. She remained on her warfarin throughout the course of surgery and ended up with a significant postoperative hematoma. This required multiple debridements and ultimately she underwent flap coverage here with Dr. Masters in the plastic surgery department. 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 She has been on long-term Bactrim for suppression of this infection. She did well until September 2022 when she started to note a pustule over the incision of her left elbow. This is grown in size and spontaneously drained pus on multiple occasions. 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 She ultimately decided to cancel her case as she felt like the elbow was feeling better and had stopped draining. Interval history: Since she was last seen by Dr. Barriga in late 2021, she has remained on her oral antibiotic suppression. She has not had any increasing pain or symptoms at the elbow. In a wheelchair w oxygen at baseline. No erythema or drainage. Infection symptoms completely resolved. She does have baseline numbness and tingling in the ulnar distribution which is unchanged since her surgery in 2018. Not currently on Prednisone. Objective: GENERAL: Well appearing, appropriate SKIN: No significant abrasions or lesions about the elbow. NEUROVASCULAR: Sensation intact to light touch in the Left upper extremity. Warm and well perfused hand. MUSCULOSKELETAL: Left Elbow Examination Visible abnormality: Location of previous draining lesion healed. Mild warmth to palpation. Tenderness to palpation: No Palpable crepitus: No Range of motion- Left Extension: 30 Flexion: 120 Supination: 40 Pronation: 80 No erythema, fluctuance, warmth or purulence. Well healed surgical scars appreciable. Strength Testing: Deferred Hand Testing: Finger Flexion: 5/5 strength Finger Extension: 5/5 strength Finger Spread: 5/5 strength Sensation intact to light touch in the median, radial nerves. No sensation to light touch in the fifth finger. Palpable radial pulse. Imaging: We independently reviewed the patient's imaging in the office today. X- ray imaging demonstrates prior total elbow arthroplasty and vascular clips consistent with flap coverage. No evidence of loosening. The overall appearance of the joint is similar to her previous visit. Assessment/Plan: 68 y.o. female who presents for ongoing follow-up of her left total elbow arthroplasty with history of prosthetic joint infection. Clinically she is doing very well, not in pain without any signs of infection. Her xrays are unchanged and do not show any concerning signs of infection or loosening. She does have stable ulnar neuropathy. We discussed that we could get EMGs if she would like this assessed further, however at this point she is ok living with the low level numbness and tingling. At this point, the patient can continue to use the elbow as tolerated. We discussed trying to avoid heavy activity or strenuous weightbearing activities through that arm. We can see her back in 2-3 years. If she has any change in her symptoms or drainage before then, I would need to know immediately. Follow up: 2-3 years with xray Elvira Fontenot PA-C Department of Orthopaedic Surgery [facility] This note was created with the assistance of voice dictation software. Please excuse any related errors. * Masood Barriga MD - 12/02/2023 1:00 PM EST Orthopedic surgery attending note: I have seen this patient in conjunction with the physician reading assistant. I agree with the note and plan as documented. Please see their note for further documentation. In brief, this is a 68-year-old male with a left total elbow arthroplasty which has been in place for approximately 6 years. I have seen him previously for a draining sinus about the elbow with concern for deep infection. She declined surgery at that point and the fistula healed. Fortunately, the patient continues to do well. The elbow does not bother her much. 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 Extremity was reviewed which does not demonstrate any interval change. We discussed that she can continue withactivities as tolerated. We offered follow-up with neurology for nerve testing and consideration ofa nerve procedure, but she feels like the issue is chronic enough and unlikely to improve. I think this is a reasonable plan. She will follow-up in 2 to 3 years for repeat x-rays and clinical exam. documented in this encounter Plan of Treatment Not on file documented as of this encounter Visit Diagnoses Diagnosis Elbow joint replacement status, left documented in this encounter Care Teams Funeral Counselor Relationship Specialty Start Date End Date Curt Cassidy MD [address], [facility] 3 [place] [address] PCP - General 10/10/10 documented as of this encounter
--- OUTSIDE RECORDS SUMMARY | 2024-10-30 01:32 | XMS_ITS | Encounter Summary ---
Author Organization [facility] [place] [address] Care Team Providers Care Still Operator Brandy Name Role Phone Curt Cassidy MD Primary Care Provider Encounter Details Date Type Department Care Team (Late st Contact Info) Description 03/12/2023 Telephone [place] [id number] Hieu Magana PA [address] [place] [address] Social History Tobacco Use Types Packs/Day Years [...] on filedocumented in this encounter Care Teams Still Operator Brandy Relationship Specialty Start Date End Date Curt Cassidy MD [address] [facility], [facility] 3 [place] [address] PCP - General 10/10/10 documented as of this encounter
--- OUTSIDE RECORDS SUMMARY | 2024-10-30 01:32 | XMS_ITS | Encounter Summary ---
Author Organization [facility] Address [facility] [place] [address] Care Team Providers Care Behavior Interventionist Name Role Phone Curt Cassidy MD Primary Care Provider [phone] Encounter Details Date Type Department Care Team (Late st Contact Info) Description 10/16/2023 Orders [place] [address] Masood Barriga MD [facility] [place] [address] Elbow joint replacement status, left Social History [...] as of this encounter Results * XR Elbow 3 Views Left (GENERIC) (12/02/2023 11:44 AM EST) Anatomical Region Laterality Modality Elbow Left Digital Radiogra phy Impressions 12/02/2023 12:12 PM EST 1. Stable exam. Status post left elbow arthroplasty, with persistent stable lucency adjacent to the distal humeral component. Thank you for letting us participate in the care of this patient. ??If you are a health care provider and have any questions regarding this report, please contact the number below. ??For patients who have questions please contact the health rn critical care that requested your imaging first. ? Electronically signed by: HERBER Laws [facility] ([phone]), at 12/02/2023 12:12 PM Narrative 12/02/2023 12:12 PM EST EXAMINATION: XR ELBOW 3 VIEWS LEFT (GENERIC) CLINICAL HISTORY: 01-05-22 Left total elbow arthroplasty TECHNIQUE: 3 views LEFT elbow COMPARISON: 11/05/2022 FINDINGS: Status post left elbow arthroplasty. The lucency adjacent to the distal humeral component is unchanged. The cemented ulnar component is also unchanged. Procedure Note Rafael Wilson MD - 12/02/2023 EXAMINATION: XR ELBOW 3 VIEWS LEFT (GENERIC) CLINICAL HISTORY: 01-05-22 Left total elbow arthroplasty TECHNIQUE: 3 views LEFT elbow COMPARISON: 11/05/2022 FINDINGS: Status post left elbow arthroplasty. The lucency adjacent tothe distal humeral component is unchanged. The cemented ulnar component isalso unchanged. IMPRESSION 1. Stable exam. Status post left elbow arthroplasty, with persistentstable lucency adjacent to the distal humeral component. Thank you for letting us participate in the care of this patient. If youare a health care provider and have any questions regarding this report,please contact the number below. For patients who have questions please contactthe health rn critical care that requested your imaging first. Electronically signed by: HERBER Laws [facility]([phone]), at 12/02/2023 12:12 PM Masood Barriga MD IMG DX ORDERABLES documented in this encounter Visit Diagnoses Diagnosis Elbow joint replacement status, left Pain in right hip Pain in joint, pelvic region and thigh Elbow joint replacement status, left documented in this encounter Care Teams Behavior Interventionist Relationship Specialty Start Date End Date Curt Cassidy MD [address], [facility] 3 [place] [address] PCP - General 10/10/10 documented as of this encounter
--- OUTSIDE RECORDS SUMMARY | 2024-10-30 01:32 | XMS_ITS | Encounter Summary ---
Author Organization [facility] [place] [address] Care Team Providers Care Recreation Facilities Supervisor Name Role Phone Curt Cassidy MD Primary Care Provider [phone] Encounter Details Date Type Department Care Team (Latest Contact Info) Description 07/19/2023 Travel Social History Tobacco Use Types Packs/Day [...] on filedocumented in this encounter Care Teams Recreation Facilities Supervisor Relationship Specialty Start Date End Date Curt Cassidy MD [address] [facility], [facility] 3 [place] [address] PCP - General 10/10/10 documented as of this encounter
--- OUTSIDE RECORDS SUMMARY | 2024-10-30 01:32 | XMS_ITS | Encounter Summary ---
Author Organization [facility] [place] [address] Care Team Providers Care Eating Disorder Psychologist Name Role Phone Curt Cassidy MD Primary Care Provider [phone] Reason for Referral * Consultation (Routine) - Closed Specialty Diagnoses / Procedures Referred By Contac t Referred To Contact Gastroenterology Diagnoses Elevated liver transaminase level Rheumatoid arthritis, involving unspecified site, unspecified whether rheumatoid factor present Elevated liver Curt Cassidy MD [address], [address] [address] [facility] [place] [address] Referral ID Status Reason Start Date Expiration Date V isits Requested Visits Authorized [id number] Closed Consult, Test & Treat PCP Updated and/or Approved 03/27/2023 03/26/2024 6 6 Encounter Details Date Type Department Care Team (Late st Contact Info) Description 03/27/2023 Transcribe Orders eDH Incoming Referrals [phone] Curt Cassidy MD [address] [facility] , [address] [address] Elevated liver transaminase level; Rheumatoid arthritis, involving unspecified site, unspecified whether rheumatoid factor present Social History Tobacco Use Types Packs/Day Years [...] Priority Associated Diagnoses Order Schedule Referral to Gastroenterology Outpatient Referral Routine Elevated liver transaminase level Rheumatoid arthritis, involving unspecified site, unspecified whether rheumatoid factor present Ordered: 03/27/2023 documented as of this encounter Visit Diagnoses Diagnosis Elevated liver transaminase level Rheumatoid arthritis, involving unspecified site, unspecified whether rheumatoid factor present documented in this encounter Care Teams Eating Disorder Psychologist Relationship Specialty Start Date End Date Curt Cassidy MD [address], [place] [id number] PCP - General 10/10/10 documented as of this encounter
--- OUTSIDE RECORDS SUMMARY | 2024-10-30 01:32 | XMS_ITS | Encounter Summary ---
Author Organization [facility] [place] [address] Care Team Providers Care Small Brake Form Operator Name Role Phone Curt Cassidy MD Primary Care Provider [phone] Encounter Details Date Type Department Care Team (Latest Contact Info) Description 12/02/2023 Travel Social History Tobacco Use Types Packs/Day [...] on filedocumented in this encounter Care Teams Small Brake Form Operator Relationship Specialty Start Date End Date Curt Cassidy MD [address] [facility], [facility] 3 [place] [address] PCP - General 10/10/10 documented as of this encounter
--- OUTSIDE RECORDS SUMMARY | 2024-10-30 01:32 | XMS_ITS | Encounter Summary ---
Author Organization [facility] Address [facility] [address] Care Team Providers Care Manager Cafe Name Role Phone Curt Cassidy MD Primary Care Provider [phone] Reason for Visit * Reason Onset Date Comments Questions 03/05/2023 Encounter Details Date Type Department Care Team (Late st Contact Info) Description 03/05/2023 Telephone [place] [phone] Masood Barriga MD [facility] DR [place] [address] Questions Social History Tobacco Use Types Packs/Day Years [...] encounter Miscellaneous Notes * Telephone Encounter - Parul Kelley RN - 03/05/2023 1:47 PM EDT Spoke with Marla and relayed that as long as she was still taking her chronic bactrim, she does not need to take additional antibiotics prior to dental appointments. No further questions at this time * Telephone Encounter - Jude Veras - 03/05/2023 10:02 AM EDTSummary: Dental Pre-Medication Name of person calling: Marla Facility person is calling from?: None What is the question: Marla called stating that she is scheduled for a dentist appointment on 04/08/[address] Barriga that she needs to pre- medicate. Marla asks that a prescription be sent to the [facility] in [place], [place] prior to her dentist appointment. Her dentist informed her that the first prescription needed to come from Dr. Barriga. Please advise. Best number to reach the caller: [phone] documented in this encounter Plan of Treatment Not on file documented as of this encounter Visit Diagnoses Not on filedocumented in this encounter Care Teams Manager Cafe Relationship Specialty Start Date End Date Curt Cassidy MD [address] [facility], [address] [address] PCP - General 10/10/10 documented as of this encounter
--- OUTSIDE RECORDS SUMMARY | 2024-10-30 01:32 | XMS_ITS | Encounter Summary ---
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; Osteoporosis, unspecified osteoporosis type, unspecified pathological fracture presence Social History Tobacco Use Types Packs/Day Years Used Date Smoking Tobacco: Never Smokeless Tobacco: Never Tobacco Cessation:Counseling Given: Not Answered Alcohol Use Standard Drinks/Week Comments No 0 (1 standard drink = 0.6 oz pur e alcohol) Sex and Gender Information Value Date Recorded Sex Assigned at Not on file Gender Identity Not on file Sexual Orientation Not on file documented as of this encounter Last Filed Vital Signs Vital Sign Reading Time Taken Comments Blood Pressure 133/57 02/25/2023 1:30 PM EDT Pulse 96 02/25/2023 1:30 PM EDT Temperature 36.3 ??C (97.3 ??F) 02/25/2023 1 :30 PM EDT Respiratory Rate 18 02/25/2023 1:30 PM EDT Oxygen Saturation 96% 02/25/2023 1:3 0 PM EDT with O2 Inhaled Oxygen Concentration - - Weight 78.5 kg (173 lb) 02/25/2023 1:30 PM EDT per pt last Th. Height - - Body Mass Index 34.94 11/05/2022 2:12 PM EST documented in this encounter Patient Instructions * Patient Instructions* Hieu Magana PA - 02/25/2023 1:30 PM EDT Follow up 6 month Continue Arava for now Labs today documented in this encounter Progress Notes * Hieu Magana PA - 02/25/2023 1:30 PM EDTSummary: RA. Rheumatology Outpatient Note Chart review conducted prior to the visit includes review of PMHx, medications, allergies, and prior office notes. The most pertinent findings are listed below. The Patient History Form was reviewed with the patient, which included review of ROS, social hx, pmhx, famhx, current and prior medications, allergies, IZs, and ADLs. The form is scanned into the patient's chart. History of Present Illness: Marla Denton is a 67 y.o. female who presents today for evaluation of RA. 03.07.22:Impression/Recommendations : Marla Denton is a 66 y.o. female who presents today with rheumatoid arthritis patient continuing on leflunomide 20 mg per day with extensive deformities and smoldering arthralgias. She however is probably doing about as good as she is going to do. She recently completed laboratory studies in [facility] which were acceptable. She denies any complication from her current medical treatment. We will see her again in follow-up in 6 to 12 months sooner if indicated patient in agreement. Any further changes pending her clinical course. She will keep me up-to-date as to what is going on with orthopedics. Fall precautions discussed. Interval History: Patient presents today for follow-up. Lately she has been complaining of a headache the headache was bad enough that she went to the [facility] she had a CAT scan and chest x-ray was given fentanyl which helped a little bit and was given a steroid IV the headache gradually got better. She still has the headache today. There is been no visual loss she denies any episcopalian tenderness her whole head was throbbing when she had the headache. Apparently laboratory studies were completed that included per the patient normal sedimentation rate. She does have some problems with TMJ lately her jaws been snapping but she denies antonio jaw claudication. She saw her primary care provider this past patient reporting no change in treatment. She otherwise continues on leflunomide 20 mg/day which she finds helpful. She does not think she has had any flareups. We are trying to obtain the ED notes. Today she reports a headache but not significant. She reports no visual changes today. There is been no nausea vomiting diarrhea cough or shortness of breath. Review of Systems Constitutional: Negative for diaphoresis, malaise/fatigue and chills. Respiratory: Negative for shortness of breath, chest discomfort, hemoptysis and orthopnea. Gastrointestinal: Negative for steatorrhea, diarrhea and trouble swallowing. HENT: Negative. Psychiatric/Behavioral: Negative for social aversion. Hematologic/Lymphatic: Negative. Allergic/Immunologic: Negative for recurrent infections. Musculoskeletal: Negative. Endocrine: Negative for polydipsia, polyphagia, polyuria and Cushingoid appearance. Cardiovascular: Negative for syncope. Neurological: Positive for headaches. Skin: Negative for dry skin, urticaria, blister, photosensitivity and erythema. Allergies Allergies Allergen Reactions ??? Furosemide Palpitations Pt [...] Bactrim ??? Sulfisoxazole ??? Sulfisoxazole Acetyl Unknown Medications Current Outpatient Medications on File Prior to Visit Medication Sig Dispense Refill ??? pantoprazole EC (Protonix) 40 mg Tablet, Delayed Release (E.C.) BID@ ??? risedronate (ACTONEL) 35 mg Tablet As directed ??? Eliquis 5 mg Tablet ??? Restasis 0.05 % Dropperette ??? EPINEPHrine 0.15 mg/0.15 mL Auto-Injector EPINEPHRINE 0.15 MG/0.15ML SOAJ ??? naloxone (Narcan) 4 mg/actuation Tintah, Non-Aerosol NARCAN 4 MG/0.1ML LIQD ??? multivitamin Capsule MULTIVITAMINS CAPS ??? famotidine (Pepcid) 40 mg Tablet ??? acyclovir (Zovirax) 800 mg Tablet TAKE ONE TABLET BY MOUTH EVERY DAY 90 tablet 1 ??? leflunomide (Arava) 20 mg Tablet TAKE ONE TABLET BY MOUTH DAILY 90 tablet 3 ??? bumetanide (BUMEX) 0.5 mg Tablet TAKE 1 TABLET BY MOUTH ONCE DAILY (FOR SALT AND WATER RETENTION) 11 ??? losartan (COZAAR) 100 mg Tablet Take 150 mg by mouth daily. ??? levothyroxine (SYNTHROID) 150 mcg Tablet 162.5 mcg. 5 ??? Lactobacillus acidophilus (PROBIOTIC ORAL) Take by mouth daily. ??? docosahexanoic acid/epa (FISH OIL ORAL) Take by mouth 2 times daily. ??? sulfamethoxazole-trimethoprim (BACTRIM DS) 800-160 mg Tablet Take 1 tablet by mouth 2 times daily. 60 tablet 5 ??? DILT-XR 240 mg Capsule,Degradable Cnt Release daily. ??? OXYGEN-AIR DELIVERY SYSTEMS MISC 2 L by Misc.(Non-Drug; Combo Route) route daily. ??? fluticasone-salmeterol (ADVAIR HFA) 230-21 mcg/actuation HFA Aerosol Inhaler Inhale 2 puffs into the lungs 2 times daily. Indications: PREVENTION OF BRONCHOSPASM WITH CHRONIC BRONCHITIS 3 Inhaler3 ??? docusate sodium (COLACE) 100 mg Capsule Take 100 mg by mouth daily. ??? senna (SENOKOT) 8.6 mg Tablet Take by mouth daily. ??? atorvastatin (LIPITOR) 20 mg Tablet Take 20 mg by mouth daily. ??? Carboxymethylcellulose Sodium 0.25 % Dropperette Place 1 drop into both eyes 6 times daily. ??? methadone (DOLOPHINE) 10 mg Tablet Take 20 mg by mouth nightly. 15 MG in the AM, 10 MG at NOON,20 MG in the PM. ??? doxepin (SINEQUAN) 50 mg capsule Take 1 capsule by mouth daily. (Patient taking differently: Take 50-100 mg by mouth nightly.) ??? gabapentin (NEURONTIN) 300 mg capsule Take 2 capsules by mouth 2 times daily. Take at 0900 and 1400 daily. (Patient taking differently: Take 600 mg by mouth 3 times daily.) ??? zolpidem (AMBIEN) 10 mg tablet Take 1 tablet by mouth nightly as needed. (Patient not taking: Reported on 09/15/2021) ??? diphenhydrAMINE (BENADRYL) 25 mg capsule Take 1 capsule by mouth every 6 hours as needed for Itching (Patient requests to take this the same time as the Methadone). ??? ergocalciferol (VITAMIN D) 50,000 unit capsule 27132 unit, PO, once a month No current facility-administered medications on file prior to visit. PMHX Patient Active Problem List Diagnosis Code ??? Seronegative rheumatoid arthritis M06.00 ??? Edema leg R60.0 ??? Popliteal cyst M71.20 ??? MRSA (methicillin resistant Staphylococcus aureus) infection A49.02 ??? RA (rheumatoid arthritis) M06.9 ??? Encounter for long-term (current) use of other medications Z79.899 ??? Orthopnea R06.01 ??? Hypertension, essential I10 ??? Hypothyroidism E03.9 ??? Rheumatoid arthritis M06.9 ??? Osteoporosis M81.0 ??? Vitamin D deficiency E55.9 ??? Other pulmonary embolism and infarction I26.99 ??? Other dyspnea and respiratory abnormality R06.09, R09.89 ??? Abnormal weight gain R63.5 ??? Cervicalgia M54.2 ??? Pain in limb M79.609 ??? group home (current) use of anticoagulants Z79.01 ??? Left TKA 16 Z96.659 ??? Chronic pain G89.29 ??? Bilateral hand pain with deformities from RA. M79.641, M79.642 ??? Sjogrens syndrome M35.00 ??? Keratitis H16.9 ??? 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 Lung nodule seen on imaging study R91.1 ??? Pleural effusion J90 ??? Tendonitis, Achilles, left M76.62 ??? Chronic obstructive bronchitis J44.9 ??? Restrictive lung disease J98.4 ??? Elbow joint replacement status, left Dr. Mcgill January 2018 Z96.622 ??? Chronic prescription opiate use Z79.891 ??? Anticoagulated on Coumadin Z79.01 ??? Patient is Christian [id number] ? ? S/P left elbow I&D, radial forearm flap (plastics) for dehiscence over TEA 05/28/18 Dr. Alvarado51.002S ??? Tachycardia R00.0 ??? Hyperlipidemia E78.5 ??? group home current use of systemic steroids Z79.52 ??? Macrocytic anemia D53.9 ??? On home oxygen therapy Z99.81 ??? Restless legs syndrome G25.81 ??? Restrictive pattern present on pulmonary function testing R94.2 ??? Chronic elbow pain, PJI total elbow life replacement long antibiotic suppression M25.522, G89.29 SurgHX Past Surgical History: Procedure Laterality Date ??? CERVICAL FUSION ??? HAND TENDON SURGERY ??? HYSTERECTOMY, TOTAL ABDOMINAL ? ? PRO ARTHROPLASTY KNEE CONDYLE & PLATEAU MEDIAL & LAT COMPARTMENTS 11/02/2013 @TOTAL KNEE ARTHROPLASTY performed by Mayco Montanez Jr., MD at [facility] OR ??? PRO EXPLORE/DRAIN ELBOW FOR INFECT Left 05/28/2018 ARTHROTOMY, ELBOW, EXPLORATION, DRAINAGE, OR REMOVAL FB (WRVU 6.08) performed by Lorie Fuller MD at [facility] OR ??? PRO MUSCLE-SKIN FLAP, ARM Left 05/28/2018 FLAP, MYOCUTANEOUS OR FASCIOCUTANEOUS, UPPER EXTREMITY (WRVU 17.04) performed by Rupert Masters MD at [facility] OR ??? PRO REVISE ULNAR NERVE AT ELBOW Left 05/28/2018 NEUROPLASTY &/OR TRANSPOSITION, ULNAR NERVE AT ELBOW (WRVU 7.26) performed by Lorie Fuller MD at [facility] OR ? ? PRO SPLIT GRFT TRUNK, ARM, LEG <100SQCM N/A 05/28/2018 SPLIT THICK SKIN GRAFT,100 SQ CM OR LESS, ARMS (WRVU 9.9) performed by Rupert Masters MD at [facility] OR ??? SHOULDER SURGERY ??? TOTAL ELBOW ARTHROPLASTY Left 01/2018 ??? XR JOINT ASPIRATION - MEDIUM JOINT LEFT Left 09/15/2021 XR Fluoro Guided Joint Aspiration Medium Left 09/15/2021 Taty Kunz MD [facility] RAD XRAY ??? XR JOINT ASPIRATION - MEDIUM JOINT LEFT Left 03/07/2022 XR Fluoro Guided Joint Aspiration Medium Left 03/07/2022 Paige Perea PA [facility] XRAY Physical Examination: BP 133/57 (BP Location (NBP): Left arm, Patient Position: Sitting, BP Cuff Sizes: Large Adult (32-43 cm)) Pulse 96 Temp 36.3 ??C (97.3 ??F) (Temporal) Resp 18 Wt 78.5 kg (173 lb) Comment: perpt last Th. SpO2 96% Comment: with O2 BMI 34.94 kg/m?? Musculoskeletal: No peripheral synovitis noted upper or lower extremities., no episcopalian tenderness ornodularity. No joint effusions noted. Physical Exam Constitutional: General: She is not in acute distress. Appearance: She is obese. She is not ill-appearing, toxic-appearing or diaphoretic. HENT: Head: Normocephalic and atraumatic. Right Ear: External ear normal. Left Ear: External ear normal. Nose: Nose normal. Eyes: General: No scleral icterus. Right eye: No discharge. Left eye: No discharge. Conjunctiva/sclera: Conjunctivae normal. Cardiovascular: Heart sounds: No friction rub. Pulmonary: Effort: Pulmonary effort is normal. No respiratory distress. Breath sounds: No stridor. Chest: Chest wall: No tenderness. Abdominal: Palpations: Abdomen is soft. Tenderness: There is no guarding or rebound. Musculoskeletal: General: Deformity present. No swelling, tenderness or signs of injury. Right lower leg: No edema. Left lower leg: No edema. Skin: General: Skin is warm and dry. Coloration: Skin is not jaundiced or pale. Findings: No bruising, erythema, lesion or rash. Neurological: Mental Status: She is alert and oriented to person, place, and time. Psychiatric: Mood and Affect: Mood normal. Behavior: Behavior normal. Thought Content: Thought content normal. Judgment: Judgment normal. Laboratory Data: Component Latest Ref Rng 02/25/2023 Glucose Lvl 65 - 199 mg/dL 110 BUN 8 - 18 mg/dL 13 Creatinine 0.70 - 1.20 mg/dL 0.87 Sodium 135 - 145 mmol/L 138 Potassium 3.5 - 5.0 mmol/L 4.2 Chloride 98 - 107 mmol/L 101 CO2 22 - 31 mmol/L 26 Anion Gap 5 - 15 mmol/L 11 Calcium 8.5 - 10.5 mg/dL 9.4 Total Protein 6.1 - 8.0 g/dL 7.2 Albumin 3.2 - 5.2 g/dL 4.2 AST 0 - 30 unit/L 43 (H) ALT 0 - 30 unit/L 55 (H) Alk Phos 35 - 105 unit/L 102 Total Bilirubin 0.2 - 1.3 mg/dL 0.3 Estimated GFR >=60 mL/min/1.73 m?? 74 WBC 4.0 - 9.5 x10(3)/mcL 6.0 RBC 4.00 - 5.21 x10(6)/mcL 3.18 (L) Hemoglobin 11.7 - 15.5 g/dL 10.5 (L) Hematocrit 35.7 - 45.8 % 31.8 (L) MCV 82.6 - 94.4 fL 100.0 (H) MCH 27.1 - 32.0 pg 33.0 (H) MCHC 31.7 - 35.0 g/dL 33.0 Platelets 145 - 357 x10(3)/mcL 263 RDWSD 37.0 - 46.0 fL 47.4 (H) RDWCV 11.5 - 14.1 % 12.8 MPV 7.6 - 12.9 fL 9.0 nRBC % Auto % 0.0 nRBC Abs Auto 0.000 - 0.000 x10(3)/mcL 0.000 Neutrophils % % 61.8 Neutr Abs (ANC) 1.70 - 6.10 x10(3)/mcL 3.70 Lymphocytes % % 23.2 Lymphocytes Abs 0.9 - 3.2 x10(3)/mcL 1.4 Monocytes % % 11.9 Monocyte Abs 0.3 - 0.9 x10(3)/mcL 0.7 Eosinophils % % 2.2 Eosinophils Abs 0.0 - 0.4 x10(3)/mcL 0.1 Basophils % % 0.7 Basophils Abs 0.0 - 0.1 x10(3)/mcL 0.0 Immature Gran % % 0.20 Sienna Gran Abs 0.00 - 0.04 x10(3)/mcL 0.01 CRP <=4.9 mg/L 3.7 Sed Rate 2 - 39 mm/hr 28 (H) High (L) Low Impression/Recommendations : Marla Denton is a 67 y.o. female who presents today with rheumatoid arthritis with an ongoing headache after being evaluated by [facility] with no findings on exam suggestive of giant cell arteritis we will update screening laboratory studies today she will continue on leflunomide as previous otherwise further changes pending her clinical course and review of labs patient in agreement. Patientmay need additional follow-up from her primary care provider regarding her headache. documented in this encounter Plan of Treatment Not on file documented as of this encounter Procedures Procedure Name Priority Date/Time Associated Diagnosis Comments CRP, ACUTE INFLAMMATION Routine 02/25/2023 2:32 PM EDT terminologist current use of systemic steroids HEMOGRAM Routine 02/25/2023 2:32 PM EDT group home current use of systemic steroids DIFFERENTIAL, AUTOMATED Routine 02/25/2023 2:32 PM EDT group home current use of systemic steroids SEDIMENTATION RATE Routine 02/25/2023 2: 32 PM EDT group home current use of systemic steroids HC CBC,PLT & AUTO DIFF Routine 2:32 PM EDT terminologist current 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 Lymph % 23.2 % [facility] Lymphocytes Abs 1.4 0.9 - 3.2 x10(3)/[facility] Monocyte % 11.9 % [facility] Monocyte Abs 0.7 0.3 - 0.9 x10(3)/[facility] Eos % 2.2 % [facility] Eosinophils Abs 0.1 0.0 - 0.4 x10(3)/[facility] Basophil % 0.7 % [facility] Baso Absolute 0.0 0.0 - 0.1 x10(3)/[facility] Immature Gran % 0.20 % [facility] Comment: Immature granulocytes(IG's)percentage and absolute count will include metamyelocytes, myelocytes, and promyelocytes. Blood smears from CBCs yielding IG's will be scanned manually for concordance. If this scan disagrees with the automated IG or if promyelocytes are noted, a manual differential will be performed. Immature Gran Absolute 0.01 0.00 - 0.04 x10(3)/[facility] Blood 02/25/2023 2:32 PM EDT 02/25/2023 2:38 PM EDT Narrative Resulting Agency Comment Spec In Lab Hieu DOMINGUEZ HEMATOLOGY ORDERABL ES [facility] [place] [address] * (ABNORMAL) Hemogram (02/25/2023 2:32 PM EDT) White Blood Cell 6.0 4.0 - 9.5 x10(3)/mc L [facility] Red Blood Cell 3.18(L) 4.00 - 5.21 x10(6)/mc L [facility] Hemoglobin 10.5(L) 11.7 - 15.5 g/dL [facility] Hematocrit 31.8(L) 35.7 - 45.8 % [facility] Mean Cell Volume 100.0(H) 82.6 - 94.4 fL [facility] Mean Cell Hemoglobin 33.0(H) 27.1 - 32.0 pg [facility] Mean Cell Hemoglobin Concentration 33.0 31.7 - 35.0 g/dL [facility] Platelet 263 145 - 357 x10(3)/mc L [facility] RDW Standard Deviation 47.4(H) 37.0 - 46.0 fL [facility] RDW coefficient of variation 12.8 11.5 - 14.1 % [facility] Mean Platelet Volume 9.0 7.6 - 12.9 fL [facility] NRBC% auto 0.0 % [facility] NRBC Absolute 0.000 0.000 - 0.000 x10(3)/mc L [facility] Blood 02/25/2023 2:32 PM EDT 02/25/2023 2:38 PM EDT Narrative Resulting Agency Comment Spec In Lab Hieu DOMINGUEZ HEMATOLOGY ORDERABL ES Performing Organization Address City/State/[facility] Co de Phone Number [facility] [place] [address] * (ABNORMAL) Comprehensive metabolic panel (non-fasting) (02/25/2023 2:32 PM EDT) Glucose 110 65 - 199 mg/dL [facility] Comment:Diabetes: >=200 mg/d L plus symptoms Blood Urea Nitrogen 13 8 - 18 mg/dL [facility] Creatinine 0.87 0.70 - 1.20 mg/dL [facility] Sodium 138 135 - 145 mmol/L [facility] Potassium 4.2 3.5 - 5.0 mmol/L [facility] Comment: Please note: ??Patients with WBC >100,000 may have falsely elevated Potassium levels. ??For accurate Potassium quantification in these patients send serum separator tube (gold top) for subsequent determinations. ??Contact the Clinical Chemistry Laboratory if there are any questions. Chloride 101 98 - 107 mmol/L [facility] Carbon Dioxide 26 22 - 31 mmol/L [facility] Anion Gap 11 5 - 15 mmol/L [facility] Calcium 9.4 8.5 - 10.5 mg/dL [facility] Protein, Total 7.2 6.1 - 8.0 g/dL [facility] Albumin 4.2 3.2 - 5.2 g/dL [facility] Aspartate Aminotransferase 43(H) 0 - 30 unit/L [facility] Alanine Aminotransferase 55(H) 0 - 30 unit/L [facility] Alkaline Phosphatase 102 35 - 105 unit/L [facility] Bilirubin, Total 0.3 0.2 - 1.3 mg/dL [facility] Est Glomerular Filtration Rate 74 >=60 mL/min/1. 73 m?? [facility] Comment: This patient's estimated GFR was [...] and symptoms in addition to eGFR. Blood 02/25/2023 2:32 PM EDT 02/25/2023 2:38 PM EDT Narrative Resulting Agency Comment Spec In Lab Rafael Sidhu MD CHEMISTRY ORDERABLES Performing Organization Address [facility] Co de Phone Number [facility] [place] [address] * CRP, acute inflammation (02/25/2023 2:32 PM EDT) C-Reactive Protein 3.7 <=4.9 mg/L [facility] Blood 02/25/2023 2:32 PM EDT 02/25/2023 2:38 PM EDT Narrative Resulting Agency Comment Spec In Lab Rafael Sidhu MD CHEMISTRY ORDERABLES Performing Organization Address [facility]/ZIP Co de Phone Number [facility] [place] [address] * Sedimentation rate (02/25/2023 2:32 PM EDT) Sedimentation Rate Automated 28 2 - 39 mm/hr [facility] Comment: Effective October 28, 2019 new capillary photometric technology has resulted in a change in reference ranges. It is recommended that each ESR result be reviewed with its own age appropriate reference range. 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
--- OUTSIDE RECORDS SUMMARY | 2024-10-30 01:32 | XMS_ITS | Encounter Summary ---
Author Organization [facility] Address [facility] [place] [address] Care Team Providers Care Loss Prevention Coordinator Name Role Phone Curt Cassidy MD Primary Care Provider [phone] Encounter Details Date Type Department Care Team (Latest Contact Info) Description 12/02/2023 11:28 AM EST - 12/02/2023 11:59 PM [facility] Hospital Encounter XRay at [address] [place] [address] Dorothea Davis MD [facility] [place] [address] Pain in right hip; Elbow joint replacement status, left Discharge Disposition: Home Social History Tobacco [...] Sig Dispensed Refills Start Date End Date levothyroxine (Synthroid) 125 mcg tablet Take 125 mcg by mouth daily. cyclobenzaprine (Flexeril) 5 mg tablet Take 5 mg by mouth as needed. 01/31/2023 alendronate (Fosamax) 70 mg tablet Take 70 mg by mouth once a week. 01/21/2023 Eliquis 5 mg Tablet Take 5 mg by mouth 2 times daily. 11/14/2021 Restasis 0.05 % Dropperette 11/14/2021 EPINEPHrine 0.15 mg/0.15 mL Auto-Injector EPINEPHRINE 0.15 MG/0.15ML SOAJ 01/16/2021 naloxone (Narcan) 4 mg/actuation [place], Non-Aerosol NARCAN 4 MG/0.1ML LIQD 02/02/2019 multivitamin [...] OXYGEN-AIR DELIVERY SYSTEMS MISC 2 L by Mis.(Non-Drug; Combo Route) route daily. docusate sodium (COLACE) [...] 11/05/2013 ergocalciferol (VITAMIN D) 50,000 unit capsule 32471 unit, PO, once a month 10/23/2010 pantoprazole EC (Protonix) 40 mg Tablet, Delayed Release (E.C.) BID@0730,199903/16/2021 12/27/2023 risedronate (ACTONEL) 35 mg Tablet Take 35 mg by mouth every 7 days. 05/01/2016 12/27/2023 levothyroxine (SYNTHROID) 150 mcg Tablet 125 mcg. 5 06/24/2019 12/27/2023 fluticasone-salmetero l (ADVAIR HFA) 230-21 mcg/actuation HFA Aerosol InhalerIndications:pr evention of bronchospasm with chronic bronchitis Inhale 2 puffs into the lungs 2 times daily. Indications: PREVENTION OF BRONCHOSPASM WITH CHRONIC BRONCHITIS 3 Inhaler 3 07/07/2018 12/27/2023 documented as of this encounter Plan of Treatment Not on file documented as of this encounter Procedures Procedure Name Priority Date/Time Associated Diagnosis Comments XR PELVIS AND HIP 2 VIEWS RIGHT Routine 12/02/2023 11:44 AM EST Pain in right hip XR ELBOW 3 VIEWS LEFT (GENERIC) Routine 12/02/2023 11:44 AM EST Elbow joint replacement status, left documented in this encounter Results * [...] who have questions please contact the health healthcare advisory services manager that requested your imaging first. ? Narrative 12/02/2023 12:12 PM EST EXAMINATION: XR [...] patients who have questions please contactthe health healthcare advisory services manager that requested your imaging first. Masood Barriga MD IMG DX ORDERABLES * XR Pelvis and Hip 2 Views [...] who have questions please contact the health healthcare advisory services manager that requested your imaging first. ? Electronically signed by: Rosetta Banks MD, [facility] ([phone]), at 12/02/2023 1:47 PM Narrative 12/02/2023 1:47 [...] patients who have questions please contactthe health healthcare advisory services manager that requested your imaging first. Electronically signed by: Rosetta Banks MD, [facility]([phone]), at 12/02/2023 1:47 PM Dorothea Davis MD IMG DX ORDERABLES documented in this encounter Visit Diagnoses Diagnosis Pain in right hip Pain in joint, pelvic region and thigh Elbow joint replacement status, left documented in this encounter Care Teams Loss Prevention Coordinator Relationship Specialty Start Date End Date Curt Cassidy MD [address] [facility], [address] [address] PCP - General 10/10/10 documented as of this encounter
--- OUTSIDE RECORDS SUMMARY | 2024-10-30 01:32 | XMS_ITS | Clinical Summary ---
Author Organization [facility] Address [facility] [place] [address] Care Team Providers Care Binding Machine Operator Name Role Phone Curt Cassidy MD Primary Care Provider [phone] Allergies Active Allergy Reactions Criticality Noted Date Comments Furosemide Palpitations High 11/03/2019 Pt states when taken with Lisinopril adverse reactions she does not want to take Infliximab Anaphylaxis,Other (See Comments) High throat swelling,chest heaviness Iodinated Contrast Media Anaphylaxis High Iodine And Iodide Containing Products Anaphylaxis High Lisinopril Palpitations High 11/03/2019 Morphine 10/28/2013 Rituximab High 02/08/2012 Other reaction(s): heart pounding, chest pains, hands red Sulfa (Sulfonamide Antibiotics) Tolerates Bactrim Sulfisoxazole Sulfisoxazole Acetyl Unknown Vancomycin Anaphylaxis High Bupropion Hcl Other (See Comments) Medium 06/28/2016 Causes retless leg syndrome Medications Medication Sig Dispensed Refills Start Date End Date Status ergocalciferol (VITAMIN D) 50,000 unit capsule 05415 unit, PO, once a month 10/23/2010 Active doxepin (SINEQUAN) 50 mg capsule Take 1 capsule by mouth daily. 11/05/2013 Active Additional Information Patient taking differently:50 mg OralNIGHTLY, Reported on 12/27/2023 gabapentin (NEURONTIN) 300 mg capsuleIndications :Neuropathy Take 2 capsules by mouth 2 times daily. Take at 0900 and 1400 daily. 11/05/2013 Active Additional Information Patient taking differently: 300 mgOral 2 TIMES DAILY,*taking two capsule 2 times a day*, Reported on 12/27/2023 diphenhydrAMINE (BENADRYL) 25 mg capsule Take 1 capsule by mouth every 6 hours as needed for Itching (Patient requests to take this the same time as the Methadone). 11/05/2013 Active Additional Information Patient taking differently:25 mg OralDAILY, Taking it with Methadone, Reported on 01/13/2024 methadone (DOLOPHINE) 10 mg Tablet Take 5-10 mg by mouth nightly. Active Carboxymethylcellu lose Sodium 0.25 % Dropperette Place 1 drop into both eyes 6 times daily. Active atorvastatin (LIPITOR) 20 mg Tablet Take 20 mg by mouth daily. Active docusate sodium (COLACE) 100 mg Capsule Take 100 mg by mouth daily. Active senna (SENOKOT) 8.6 mg Tablet Take by mouth daily. A ctive DILT-XR 240 mg Capsule,Degradable Cnt Release daily. 10/06/2018 Active OXYGEN-AIR DELIVERY SYSTEMS MISC 2 L by Misc.(Non-Drug; Combo Route) route daily. Active sulfamethoxazole-t rimethoprim (BACTRIM DS) 800-160 mg Tablet Take 1 tablet by mouth 2 times daily. 60 tablet 5 04/19/2019 Active bumetanide (BUMEX) 0.5 mg Tablet TAKE 1 TABLET BY MOUTH ONCE DAILY (FOR SALT AND WATER RETENTION) 11 07/31/2019 Active losartan (COZAAR) 100 mg Tablet Take 150 mg by mouth daily. Active Lactobacillus acidophilus (PROBIOTIC ORAL) Take by mouth daily. Active docosahexanoic acid/epa (FISH OIL ORAL) Take 2,000 Units by mouth daily. Active famotidine (Pepcid) 40 mg Tablet 08/18/2021 Active Eliquis 5 mg Tablet Take 5 mg by mouth 2 times daily. 11/14/2021 Active Restasis 0.05 % Dropperette 11/14/2021 Active EPINEPHrine 0.15 mg/0.15 mL Auto-Injector EPINEPHRINE 0.15 MG/0.15ML SOAJ 01/16/2021 Active naloxone (Narcan) 4 mg/actuation [place], Non-Aerosol NARCAN 4 MG/0.1ML LIQD 02/02/2019 Active multivitamin Capsule MULTIVITAMINS CAPS 12/10/2019 Active cyclobenzaprine (Flexeril) 5 mg tablet Take 5 mg by mouth as needed. 01/31/2023 Active alendronate (Fosamax) 70 mg tablet Take 70 mg by mouth once a week. 01/21/2023 Active levothyroxine (Synthroid) 125 mcg tablet Take 125 mcg by mouth daily. Active cyanocobalamin, vitamin B-12, (VITAMIN B-12 ORAL) Take by mouth daily. Acti ve Active Problems Patient Care Coordination No te Formatting of this note migh t be different from the original. Awaiting vaccine history. 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 Fuller 05/28/2018 Chronic prescription opiate use 05/23/2018 Overview (05/23/2018): As of May 2018: methadone 10 mg, #5 per day, prescribed by her PCP. Anticoagulated on Coumadin 05/23/2018 Patient is Yarsani 05/23/2018 Elbow joint replacement status, left Dr. Mcgill January 2018 05/15/2018 Chronic obstructive bronchitis 08/08/2016 Restrictive lung disease 08/08/2016 Tendonitis, Achilles, left 06/28/2016 Overview (06/28/2016): Retrocalcaneal Lung nodule seen on imaging study 01/15/2016 Pleural effusion 01/15/2016 Hyperlipidemia 05/19/2015 Sjogrens syndrome 05/04/2015 Keratitis 05/04/2015 Corneal neovascularization 05/04/2015 Bilateral hand pain with deformities from RA. Chronic left-sided low back pain without sciatic a 11/05/2013 Left TKA 11/0211/02/2013 Orthopnea 10/30/2013 Rheumatoid arthritis 10/30/2013 Osteoporosis 10/30/2013 Other pulmonary embolism and infarction 10/30/20 Other dyspnea and respiratory abnormality 2012 Abnormal weight gain 10/30/2013 Cervicalgia 10/30/2013 Pain in limb 10/30/2013 Overview (10/30/2013): Bilateral leg pain senior care (current) use of anticoagulants 2012 Encounter for long-term (current) use of other m edications 10/22/2013 Overview (10/22/2013): Rheumatologic meds Vitamin D deficiency 04/23/2013 RA (rheumatoid arthritis) 05/31/2011 Edema leg 02/01/2011 Overview (08/17/2012): Right Popliteal cyst 02/01/2011 Overview (08/17/2012): Persistent, 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 02/01/2011 Overview (08/17/2012): Chronic carriage Display name was automatically updated by a utility run on 02/20/2012 Hypertension, essential 05/27/2009 Hypothyroidism 10/01/2007 Seronegative rheumatoid arthritis Resolved Problems Problem Noted Date Diagnosed Date Resolved Date Surgery follow-up 06/10/2018 09/14/2021 Elbow wound, left, 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 05/28/2018 09/14/2021 Elbow wound, left, initial encounter 04/28/2018 09/14/2021 Total knee replacement status, left 11/05/2013 09/14/2021 Lateral epicondylitis of elbow 10/30/2013 05/15/2018 Pain in joint, shoulder region 10/30/2013 09/14/2021 DJD (degenerative joint disease) of knee 09/16/2013 09/14/2021 Overview (09/16/2013): Post R TKR 2004 Internal derangement of knee 09/16/2013 09/14/2021 Overview (09/16/2013): Left knee medially Cellulitis of leg, right 02/01/2011 Overview (08/17/2012): recurrent Immunizations Name Administration Dates Next Due Influenza Trivalent w/Preservative 08/19/2015, Tuberculin Skin Test, PPD 10/28/2006,12/29/2002 Family History Medical History Relation Comments Cancer Father Heart Disease Father Hypertension Father Diabetes Maternal Uncle Heart Disease Mother Hypertension Mother Thyroid Disease Mother Thyroid Disease Sister 1 Thyroid Disease Sister 2 Amblyopia Neg Hx Cataracts Neg Hx Glaucoma Neg Hx Macular Degeneration Neg Hx Retinal Detachment Neg Hx Strabismus Neg Hx Relation Status Comments Father Maternal Uncle Mother Sister 1 Sister 2 Social History Tobacco Use Types Packs/Day Years Used Date Smoking Tobacco: Never Smokeless Tobacco: Never Tobacco Cessation:Counseling Given: Not Answered Alcohol Use Standard Drinks/Week Comments No 0 (1 standard drink = 0.6 oz pur e alcohol) Sex and Gender Information Value Date Recorded Sex Assigned at Not on file Gender Identity Not on file Sexual Orientation Not on file Last Filed Vital Signs Vital Sign Reading Time Taken Comments Blood Pressure 145/72 07/19/2023 1:50 PM EDT Pulse 89 07/19/2023 1:50 PM EDT Temperature 36.3 ??C (97.3 ??F) 02/25/2023 1 :30 PM EDT Respiratory Rate 18 02/25/2023 1:30 PM EDT Oxygen Saturation 100% 07/19/2023 1:5 0 PM EDT with 2 L of O2 Inhaled Oxygen Concentration - - Weight 83.5 kg (184 lb) 01/13/2024 10:2 1 AM EST Height 148.6 cm (4' 10.5) 01/13/2024 1 0:21 AM EST Body Mass Index 37.8 01/13/2024 10:21 AM EST Plan of Treatment Health Maintenance Due Date Last Done Comments CT Colonography 1957 Colonoscopy 1957 Colorectal Cancer Screening 1957 FIT DNA 1957 FIT 1957 Sigmoidoscopy (10 year) with FIT yearly 1957 Sigmoidoscopy 1957 Pneumoccocal Vaccine: 65+ (1 of 2 - PCV) 1963 Tetanus/Diphtheria/Pertussis Vaccines (1 - Tdap) 1976 Breast Cancer Share Decision Needed 1997 Breast Cancer screening 1997 Zoster vaccine (1 of 2) 2007 RSV Vaccine (1 - Risk 60-74 years 1-dose series) 2017 Bone Density Scan 2022 Covid-19 Vaccine (1 - 2023-2 5 season) 2024 Influenza (Flu) vaccine (1 o f 1 - Influenza standard series) 07/19/2024 08/19/2015, 10/18/2013 Diabetes Screening (HgbA1C o r Glucose) 04/27/2027 04/27/2024, 07/19/2023, 02/25/2023, Additional history exists Hepatitis C Screening Completed 07/19/2023 Medical Devices Implanted Type Area Gi Technician Device Identifier Shelf Expiration Date Model / Serial / Lot Tray,Tib,Sgm,M od,Cmnt,Sz2 ([id number]) (Autoreq) - [id number] Implanted:Qty: 1 on 11/02/2013 by Mayco Montanez Jr., MD at [facility] IMPLANTS Left: Knee DO NOT USE Depuy Wicker Molded Candles - 3527 06/18/2023 0 / / [id number] [place],Sgm,Fem, Ps,Cmnt,Lt,Sz2 ([id number]) (Autoreq) - [id number] Implanted:Qty: 1 on 11/02/2013 by Mayco Montanez Jr., MD at [facility] IMPLANTS Left: Knee DO NOT USE Depuy W[employer] Molded Candles - 3527 08/18/2022 0 / / [id number] [place],Pfc,Sgm, Rnd,Sm,35mm ([id number]) (Autoreq) - [id number] Implanted:Qty: 1 on 11/02/2013 by Mayco Montanez Jr., MD at [facility] IMPLANTS Left: Knee DO NOT USE Depuy Wicker Molded Candles - 3527 04/18/2018 [id number] / / [id number] Inser,Sgm,Stab ,Crslnk,2x8mm ([id number]) (Autoreq) - [id number] Implanted:Qty: 1 on 11/02/2013 by Mayco Montanez Jr., MD at [facility] IMPLANTS Left: Knee DO NOT USE Depuy Wicker Molded Candles - 3527 06/18/2018 8 / / [id number] Cement,Bne,Cmw 1,Gnta,40 [id number]) - [id number] Implanted:Qty: 1 on 11/02/2013 by Mayco Montanez Jr., MD at [facility] IMPLANTS Left: Knee DO NOT USE Depuy Wicker Molded Candles - 3527 04/18/2016 0 / / [id number] Procedures Procedure Name Priority Date/Time Associated Diagnosis Comments COMPREHENSIVE METABOLIC PANEL Routine 04/27/2024 1:39 PM EDT Hepatic fibrosis Metabolic dysfunction-associated steatohepatitis (MASH) HEPATITIS C ANTIBODY Routine 07/19/2023 3:49 PM EDT Hepatic fibrosis from Last 3 Months or Most Recently Relevant to Health Maintenance Results * (ABNORMAL) Comprehensive metabolic panel (non-fasting) (04/27/2024 1:39 PM EDT) Glucose 116 65 - 199 mg/dL [facility] Comment:Diabetes: >=200 mg/d L plus symptoms Blood Urea Nitrogen 12 8 - 18 mg/dL [facility] Creatinine 1.04 0.70 - 1.20 mg/dL [facility] Sodium 139 135 - 145 mmol/L [facility] Potassium 4.2 3.5 - 5.0 mmol/L [facility] Comment: Please note: ??Patients with WBC >100,000 may have falsely elevated Potassium levels. ??For accurate Potassium quantification in these patients send serum separator tube (gold top) for subsequent determinations. ??Contact the Clinical Chemistry Laboratory if there are any questions. Chloride 102 98 - 107 mmol/L [facility] Carbon Dioxide 27 22 - 31 mmol/L [facility] Anion Gap 10 5 - 15 mmol/L [facility] Calcium 9.7 8.5 - 10.5 mg/dL [facility] Protein, Total 7.4 6.1 - 8.0 g/dL [facility] Albumin 4.1 3.2 - 5.2 g/dL [facility] Aspartate Aminotransferase 43(H) 0 - 30 unit/L [facility] Alanine Aminotransferase 63(H) 0 - 30 unit/L [facility] Alkaline Phosphatase 169(H) 35 - 105 unit/L [facility] Bilirubin, Total 0.3 0.2 - 1.3 mg/dL [facility] Est Glomerular Filtration Rate 59(L) >=60 mL/min/1. 73 m?? [facility] Comment: This patient's estimated GFR [...] Agency Comment Spec In Lab Denise Ivory BARBER CHEMISTR[facility] ORDERABL ES Performing Organization Address [facility] Co de Phone Number [facility] [place] [address] * Hepatitis C Antibody (07/19/2023 3:49 PM EDT) Hepatitis C Antibody Negative Negative [facility] Blood 07/19/2023 3:49 PM EDT 07/19/2023 4:02 PM EDT Narrative Resulting Agency Comment Spec In Lab Denise Ivory BARBER CHEMISTRY ORDERABL ES Performing Organization Address [facility] Co de Phone Number [facility] [place] [address] from Last 3 Months or Most Recently Relevant to Health Maintenance Advance Directives Documents on File Type Date Recorded Patient Conveyor Line Battery Charger Expl anation Advance Directives and Livin g Will 01/16/2011 4:07 PM * Full Code (Latest Code Status on File) Date Activated Date Inactivated Comments 05/28/2018 4:47 PM 06/03/2018 5:53 PM Question Answer Comments Does patient have capacity to make decision: Yes * Full Code Date Activated Date Inactivated Comments 11/02/2013 10:47 AM 11/05/2013 7:14 PM Care Teams Binding Machine Operator Relationship Specialty Start Date End Date Curt Cassidy MD [address], [facility] [address] [place] [address] PCP - General 10/10/10
--- OUTSIDE RECORDS SUMMARY | 2024-10-30 01:32 | XMS_ITS | Encounter Summary ---
Author Organization [facility] Address [facility] [place] [address] Care Team Providers Care Pathology Transcriptionist Name Role Phone Curt Cassidy MD Primary Care Provider [phone] Reason for Visit * Reason Comments Follow Up Surgery Left total elbow art hroplasty COORD WITH ID Encounter Details Date Type Department Care Team (Late st Contact Info) Description 04/27/2022 1:00 PM EDT [place] [address] Lucy Kay PA [facility] [place] [address] Chronic elbow pain, left Social History Tobacco Use Types Packs/Day [...] Time Taken Comments Blood Pressure 133/45 04/27/2022 1:08 PM EDT Pulse 99 04/27/2022 1:08 PM EDT Temperature - - Respiratory Rate - - Oxygen Saturation - - Inhaled Oxygen Concentration - - Weight 74.8 kg (165 lb) 04/27/2022 1:08 PM EDT Height 149.9 cm (4' 11) 04/27/2022 1:08 PM EDT Body Mass Index 33.33 04/27/2022 1:08 PM EDT documented in this encounter Progress Notes * Lucy Kay PA - 04/27/2022 1:00 PM EDT Images from the original note were not included. PATIENT NAME: Marla Denton AGE: 66 y.o. MR#: [id number] DATE OF VISIT: 04/27/2022 STAFF: Dr Barriga CHIEF COMPLAINT: left total elbow arthroplasty, 2018 Dr Mcgill ([facility]) HISTORY OF PRESENT ILLNESS: Ms. Denton is a 66 y.o. female who presents for follow up of her leftelbow. Please see Dr Barriga's note from 02/12 for full history. She reports she is doing very well, she has no pain today. She had an appointment earlier today with infectious disease and states they recommended she continue on Bactrim and follow-up with their office as needed. They agree that avoiding surgical intervention is ideal at this time as she is not presenting with any signs concerning for infection. She denies fevers, redness, warmth of the elbow. She remains on her Bactrim dose whichis being prescribed by her primary care provider. Medications and Allergies were reviewed in eD-H ROS: Pertinent items are noted in HPI. General Health, Prior Treatments, PreExisting Condition, Health Habits, About You 05/15/2018 PROMIS-10 General Health Fair PROMIS-10 Quality of Life Fair PROMIS-10 Physical Health Fair PROMIS-10 Mental Health Very Good PROMIS-10 Social Activity Very Good PROMIS-10 Everyday Activities A little PROMIS-10 Pain 6 PROMIS-10 Fatigue Severe PROMIS-10 Social Roles Fair PROMIS-10 Anxious or Depressed Never PROMIS PHYSICAL SCORE (range 16-68) 32.4 PROMIS MENTAL SCORE (range 21-68) 50.8 Treatments Tried Narcotics/opiods (Percocet, codeine, hydrocodone), Prior surgery for this problem Prior Surgery elbow replacement removal of hematoma Live Alone - Combined Household Income - # People Supported - PHYSICAL EXAM: Ms. Denton is a 66 y.o. female who is in no apparent distress, alert and cooperative. BP 133/45 Pulse 99 Ht 149.9 cm (4' 11) Wt 74.8 kg (165 lb) BMI 33.33 kg/m?? Objective: GENERAL: Well appearing, appropriate SKIN: No significant abrasions or lesions about the elbow. No effusion or open fistula. NEUROVASCULAR: Grossly intact to sensation over axillary, radial, median, and ulnar nerve distributions bilaterally. Warm and well perfused hand. Palpable radial pulse. MUSCULOSKELETAL: Right Elbow Examination Visible abnormality: No Tenderness to palpation: No, no effusion on exam, Palpable crepitus: No Range of motion: Extension: 30 Flexion: 130 Supination: 20 Pronation: 80 Strength Testing: Extension: 3/5 Flexion: 4/5 No Pain Supination: deferred Pronation: deferred Hand Testing: Significant arthritis of MCP joints limits finger spread, strength 5/5 Finger Flexion: 5/5 strength Finger Extension: 5/5 strength DIAGNOSTIC STUDIES: I personally reviewed left elbow xrays taken today which do not demonstrate andfracture, unchanged arthoplasty with unchanged radiolucency around the humeral condylar component. ASSESSMENT: Marla is a 66 y.o. year old female with a left total elbow arthroplasty. She is doing well at this point, no signs of infection on examtoday. We agree with infectious disease that surgical intervention is not indicated at this time. She is doing well, pain controlled and range of motion is stable. Marla understands if symptoms worsen or she develops fever, chills, erythema, or open draining wound to contact our office PLAN: Continue Bactrim as prescribed by PCP, monitor symptoms for infection. She will follow up in 6 months with xray. The patient verbalized understanding and agreement of the plan, she knows to contact us if they have any other questions or concerns. ANGELICA Licona 04/27/2022 2:03 PM documented in this encounter Plan of Treatment [...] who have questions please contact the health manager medicare that requested your imaging first. ? Electronically signed by: Taty Kunz MD, [facility] ([phone]), at 11/05/2022 2:02 PM Narrative 11/05/2022 2:02 PM EST EXAMINATION: XR [...] patients who have questions please contactthe health manager medicare that requested your imaging first. Masood Barriga MD IMG DX ORDERABLES documented in this encounter Visit Diagnoses Diagnosis Chronic elbow pain, left Chronic elbow pain, left documented in this encounter Care Teams Pathology Transcriptionist Relationship Specialty Start Date End Date Curt Cassidy MD [address] [facility], [place] [address] PCP - General 10/10/10 documented as of this encounter
--- OUTSIDE RECORDS SUMMARY | 2024-10-30 01:32 | XMS_ITS | Encounter Summary ---
Author Organization [facility] Address [facility] [place] [address] Care Team Providers Care Frit Maker Name Role Phone Curt Cassidy MD Primary Care Provider [phone] Reason for Visit * Reason Comments Back Pain * Consultation (Routine) - Closed Specialty Diagnoses / Procedures Referred By Contac t Referred To Contact [facility] Diagnoses Right hip pain Low back & Brock hip pain/ no imaging Curt Cassidy MD [address] [place] [address], [facility] [address] [place] [address] [facility] [place] [place] [address] Referral ID Status Reason Start Date Expiration Date V isits Requested Visits Authorized [id number] Closed Consult, Test & Treat PCP Updated and/or Approved 11/04/2023 11/03/2024 1 1 Encounter Details Date Type Department Care Team (Late st Contact Info) Description 12/27/2023 11:00 AM EST Office Visit [place] [address] Christopher Gilbret MD [facility] PHYSICAL [place] [address] Chronic left-sided low back pain without sciatica (Primary Dx); Chronic left hip pain; Other idiopathic scoliosis, thoracolumbar region Social History Tobacco Use Types Packs/Day Years [...] - - Weight 83.5 kg (184 lb) 12/27/2023 10:54 AM EST Height 148.6 cm (4' 10.5) 12/27/2023 10:[address] Body Mass Index 37.8 12/27/2023 10:54 AM EST documented in this encounter Progress Notes * Christopher Gilbert MD - 12/27/2023 11:00 AM EST Subjective: Marla Denton is a 68 y.o. female who presents for spine assessment and for Physical Medicine and Rehabilitation consultation, at the request of Curt Cassidy MD. The patient reports primary musculoskeletal symptoms of left low lumbar to lumbosacral pain with radiation into ipsilateral buttock and lateral hip. She has had equivalent right-sided pain, but not for the past month. [facility] left [facility]. This last occurred in October 2023 and resolved spontaneously after one week's duration. Symptom chronicity: The patient has had left-sided low back pain for approximately 4 years. She initially could not identify a precipitant, then recalled that symptoms began after she attempted to dosome squats for exercise early in the pandemic. Sometime in September 2023, she developed low back spasms with radiation into bilateral buttocks and lateral hips. The symptoms developed in the absenceof any clear precipitant. Pain is intermittent and currently graded as 4-5/10 in intensity. Exacerbating factors: Prolonged ambulation, prolonged standing and transitional movements. Alleviating factors: Sitting and reclining. The patient denies lower extremity pain radiation or bowel/bladder dysfunction. She denies numbnessor tingling in the lower extremities, but can experience occasional buzzing in bilateral plantar feet. This has been intermittently present for the past 1-2 years. The patient denies focal lower extremity weakness, but she has had decreased endurance in bilateral lower extremities. The patient ambulates with a single-point cane indoors. Ambulatory endurance has been limited by left-sided low back pain and by generalized aching throughout the hips with prolonged ambulation. Balance can be affected by mild, brief lightheadedness with sit to stand transfers. Current treatment: The patient has been taking gabapentin 600 mg p.o. twice daily. She is uncertainwhether it has been effective. She takes methadone 5 mg p.o. nightly for general pain related to rheumatoid arthritis. I have reviewed the clinical office note of ANGELICA Griffin, dated 12/02/2023. The patient was seen for symptoms of right hip pain. She also described back pain with radiation into the buttock and groin. Radiographs demonstrated mild joint space narrowing in bilateral hips. There was no reproduction of groin pain with hip ranging. Ms. Houser questioned whether the patient's pain originated inthe low back. She suggested spine consultation. The patient offered a contingency of diagnostic intra-articular steroid injection of the hip. I have reviewed the clinical office note of Curt Cassidy MD, dated 09/20/2023. The patient reportedleft-sided pain with ambulation that had begun one week prior to the visit. Pain radiated into the lateral thigh at times. Oral steroids had been temporarily helpful for the symptoms. The presence ofsciatica was considered. Spine consultation was planned. Past musculoskeletal history: The patient has a history of seronegative rheumatoid arthritis. This was diagnosed in her 30s. Pain symptoms have been most prominent in the wrists and knees. She is status post bilateral total knee arthroplasty. With respect to RA control, the patient states, This isthe most stable I have ever been. She is status post C1-C2 fusion in 1991 and gives a history of chronic neck pain. The patient also has chronic elbow pain, status post left elbow replacement. There is a history of osteoporosis. Scoliosis was diagnosed in adolescence. The patient sustained a coccygeal fracture as a result of a fall in the . She can experience occasional pain in that area with sit to stand transfers. Past medical history includes Sjogren's syndrome, MRSA, hypertension, hypothyroidism, vitamin D deficiency, pulmonary embolism, restrictive lung disease, hyperlipidemia and restless leg syndrome. Thepatient is maintained on chronic anticoagulation. The patient has an allergy to iodine and iodinated contrast materials. Review of Systems: Pertinent review of musculoskeletal and neurological systems, as above. Spine Center Response Trends Patient-reported scores: 10/21/2013 4:12 PM 12/07/2013 12:31 PM 03/17/2014 12:25 PM 05/15/2018 12:26 PM 12/02/2023 1:41 PM myD-H Spine Questionnaire responses PROMIS-10 Physical Health Score 29.6 32.4 0 32.4 32.4 PROMIS-10 Mental Health Score 50.8 48.3 45.8 50.8 62.5 No images are attached to the encounter. Objective: The patient was advised of the clinic documentation supervisor policy. She declined to have a documentation supervisor during today's evaluation. Ht 148.6 cm (4' 10.5) Wt 83.5 kg (184 lb) BMI 37.80 kg/m?? The patient is seated comfortably and in no apparent distress. Supplemental oxygen is in place via nasal cannula. The patient transfers slowly from sitting to standing. Gait with right-sided single-point cane is well compensated. Bilateral foot clearance is satisfactory. Hips and knees are flexed in standing andwith ambulation. The patient is able to perform bilateral heel and toe raises with sink side assistance. She is unable to ambulate on heels or toes and exhibits a loss of balance with attempted toe walking. The presence of thoracolumbar scoliosis is noted. Interval between ribs and pelvis is minimal. Lumbar lordosis is decreased. Standing iliac crest palpation is markedly elevated on the right. There is bilateral tenderness with the assessment. Standing flexion test is positive on the right. Active lumbar flexion is self-limited to 45 degrees. There is no pain with active lumbar flexion orextension. Palpation: Tenderness is noted over left low lumbosacral paraspinals, bilateral quadratus lumborum,left sacroiliac joint, bilateral hip greater trochanters, central buttocks and iliotibial bands andleft hip trochanteric bursa. There is additional tenderness over right lateral inferior ribs. There is no pain with pelvic compression or shear. SHERI is positive bilaterally for left lumbosacral/sacroiliac pain. Left FADIR is positive for ipsilateral lumbosacral/sacroiliac pain. Left Stinchfield test is positive for ipsilateral lumbosacral and buttock pain. Bilateral posterior thrust is negative. There is marked tightness in bilateral hamstrings. Motor: 5/5 for bilateral hip and knee flexors, knee extensors, ankle dorsiflexors and EHL. Sensation: Intact to light touch throughout the lower extremities. Straight leg raising: Negative bilaterally in sitting and supine. Muscle stretch reflexes: Unobtainable for quadriceps, 2+ for Achilles tendon. Tone normal throughout the lower extremities. No ankle clonus. Assessment: Encounter Diagnoses Name Primary? Chronic left-sided low back pain without sciatica Yes Chronic left hip pain Other idiopathic scoliosis, thoracolumbar region The patient presents with a several year history of left-sided low back pain and a few months of regional pain radiation to hips and groin. Lately, radiation has been limited to left lateral hip. Radiographs have demonstrated mild osteoarthrosis at the hips. Hip range of motion is within normal limits bilaterally. There is no hip or groin pain with hip ranging. The exam findings suggest that the hip joints are unlikely to be primary pain generators. There are no radicular signs or symptoms to support the presence of a lumbar radicular process. I suspect that the patient's pain is primarily mechanical in origin. She has known thoracolumbar scoliosis and an underlying history of rheumatoid arthritis. She demonstrates clinical evidence of left sacroiliitis and sacroiliac mechanical dysfunction. Clinical criteria are not met for diagnostic sacroiliac joint steroid injection. Diagnostic conclusions are drawn with some reservation, given that physical examination is limited by a generalized decrease in mobility and endurance for examination. I have reviewed my findings and clinical impressions in detail with the patient. I recommend scoliosis radiographs to assess the current extent of spinal curvature. The patient will return for follow-up in 2-3 weeks, at which time the radiographs will be obtained and reviewed with the patient. Consideration will be given to outpatient PT treatment after radiographic review. Plan: 1. Follow-up in 2-3 weeks. 2. Completion of scoliosis radiographs at time of follow-up. The consultation request of Curt Cassidy MD is greatly appreciated. Total time spent on date of encounter, including clinical records review, [id number] evaluation and coordination of care = 64 minutes. Christopher Gilbert MD, MS documented in this encounter Plan of Treatment Not on file documented as of this encounter Results * XR Scoliosis or Total Spine 2 view (01/13/2024 9:40 AM EST) Anatomical Region Laterality Modality C-spine, T-spine, L-spine N/A Digita l Radiography Impressions 01/13/2024 9:54 PM EST Slight leftward curvature of thoracic spine Thank you for letting us participate in the care of this patient. ??If you are a health care provider and have any questions regarding this report, please contact the number below. ??For patients who have questions please contact the health health care specialist that requested your imaging first. ? Narrative 01/13/2024 9:54 PM EST EXAMINATION: XR SCOLIOSIS OR TOTAL SPINE 2 VIEW CLINICAL HISTORY: Thoracolumbar scoliosis, , entered by ordering service TECHNIQUE: Entire spine, 2 2 view[s] COMPARISON: none FINDINGS: Bones Decreased bone mineralization. No vertebral body height loss. The upper thoracic vertebral bodies are obscured by overlapping structures and arthroplasty. Thoracic spine: Slight leftward curvature apex at T9-10-8. Lumbar spine-normal alignment Coronal balance: Central C7 plumbline passes 2 cm to the right of S1 spinous process. Sagittal balance: Central C7 plumbline passes 1.6 cm anterior to to S1 posterior superior corner. Survey Partially included RIGHT shoulder arthroplasty. LEFT glenohumeral joint osteoarthropathy. Procedure Note Lisa Estrada MD - 01/13/2024 EXAMINATION: XR SCOLIOSIS OR TOTAL SPINE 2 VIEW CLINICAL HISTORY: Thoracolumbar scoliosis, , entered by orderingservice TECHNIQUE: Entire spine, 2 2 view[s] COMPARISON: none FINDINGS: Bones Decreased bone mineralization. No vertebral body height loss. The upper thoracic vertebral bodies are obscured by overlapping structuresand arthroplasty. Thoracic spine: Slight leftward curvature apex at T9-10-8. Lumbar spine-normal alignment Coronal balance: Central C7 plumbline passes 2 cm to the right of S1 spinous process. Sagittal balance: Central C7 plumbline passes 1.6 cm anterior to to S1 posterior superiorcorner. Survey Partially included RIGHT shoulder arthroplasty. LEFT glenohumeral joint osteoarthropathy. IMPRESSION Slight leftward curvature of thoracic spine Thank you for letting us participate in the care of this patient. If youare a health care provider and have any questions regarding this report,please contact the number below. For patients who have questions please contactthe health health care specialist that requested your imaging first. Christopher Gilbert MD IMG DX ORDERABLES documented in this encounter Visit Diagnoses Diagnosis Chronic left-sided low back pain without sciatica- Primary Chronic left hip pain Pain in joint, pelvic region and thigh Other idiopathic scoliosis, thoracolumbar region Chronic left-sided low back pain without sciatica Chronic left hip pain Pain in joint, pelvic region and thigh Other idiopathic scoliosis, thoracolumbar region documented in this encounter Care Teams Frit Maker Relationship Specialty Start Date End Date Curt Cassidy MD [address] [facility], [facility] [address] [place] [address] PCP - General 10/10/10 documented as of this encounter
--- OUTSIDE RECORDS SUMMARY | 2024-10-30 01:32 | XMS_ITS | Encounter Summary ---
Author Organization [facility] Address [facility] [place] [place] [address] Care Team Providers Care University Professor Name Role Phone Curt Cassidy MD Primary Care Provider [phone] Reason for Visit * Reason Comments Follow-up XR 01-05-22 Left t otal elbow arthroplasty COORD WITH IDNo Covid Symptoms Encounter Details Date Type Department Care Team (Late st Contact Info) Description 11/05/2022 2:00 PM EST Office [place] [address] Masood Barriga MD [facility] [place] [address] Elbow joint replacement status, left Social History [...] Sign Reading Time Taken Comments Blood Pressure 147/69 11/05/2022 2:12 PM EST Pulse 80 11/05/2022 2:12 PM EST Temperature - - Respiratory Rate - - Oxygen Saturation - - Inhaled Oxygen Concentration - - Weight 75.3 kg (166 lb) 11/05/2022 2:12 PM EST Height 149.9 cm (4' 11) 11/05/2022 2:12 PM EST Body Mass Index 33.53 11/05/2022 2:12 PM EST documented in this encounter Progress Notes * Masood Barriga MD - 11/05/2022 2:00 PM EST Orthopaedic Surgery Clinic Note Chief Complaint: Follow-up left total elbow arthroplasty draining sinus History of Present Illness: Marla Denton is a 67 y.o. Right hand dominant female who presents for follow-up regarding her left total elbow arthroplasty with a previous draining sinus. To review,the patient has a very complex history related to her left total elbow. She does have a history of rheumatoid arthritis and underwent a left total elbow arthroplasty in 2018 at [facility] with Dr. Mcgill. She remained on [...] Bactrim for suppression of this infection. She was doing okay until thisseptember when she started to note a pustule over the incision of her left elbow. This is grownin size and spontaneously drained pus on multiple occasions. 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 She ultimately decided to cancel her case as she felt like the elbow was feeling better and had stopped draining. Since I saw the patient last, she has remained on her oral antibiotic suppression. She is not had any increasing pain or symptoms at the elbow. She does use a cane and that hand at times. No increasing erythema or drainage. The sinuses remain covered over. Objective: GENERAL: Well appearing, appropriate SKIN: No [...] Flexion: 120 Supination: 40 Pronation: 80 No purulence expressible today. No palpable collection. Strength Testing: Deferred Hand Testing: Finger Flexion: [...] and vascular clips consistent with flap coverage. There is somemild increased angulation of the joint consistent with bushing wear. The overall appearance of the joint is similar to her previous visit. Assessment/Plan: 67 y.o. 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 Seems like the suppressive antibiotics are working at this point. She is not had any increasing symptoms or recurrent drainage. Her x-rays are stable without interval loosening. At this point, the patient can continue to use the elbow astolerated. We discussed trying to avoid heavy activity or strenuous weightbearing activities through that arm. She should try to avoid using the cane if possible. I will see her back in 1 year with repeat x-rays at that time. If she has any change in her symptoms or drainage before then, I would need to know immediately. Masood Barriga MD, MS Shoulder and Elbow Surgeon Department of Orthopaedic Surgery [facility] This note was created with the assistance of voice dictation software. Please excuse any related errors. documented in this encounter Plan of Treatment Not on file documented as of this encounter Visit Diagnoses Diagnosis Elbow joint replacement status, left documented in this encounter Care Teams University Professor Relationship Specialty Start Date End Date Curt Cassidy MD [address] [facility], [address] [address] PCP - General 10/10/10 documented as of this encounter
--- OUTSIDE RECORDS SUMMARY | 2024-10-30 01:32 | XMS_ITS | Encounter Summary ---
Author Organization [facility] Address [facility] [place] [address] Care Team Providers Care Painter Ordnance Name Role Phone Curt Cassidy MD Primary Care Provider [phone] Encounter Details Date Type Department Care Team (Late st Contact Info) Description 05/04/2024 4:15 PM EDT Ancillary Procedure Radiology Library at [facility] [place] [id number] Curt Cassidy MD [address] [place] [address], [facility] [address] [place] [address] Social History Tobacco Use Types Packs/Day Years [...] Procedure Name Priority Date/Time Associated Diagnosis Comments FILM LIBRARY STORAGE ONLY ULTRASOUND STUDY Routine 05/04/2024 4:10 PM EDT documented in this encounter Results * Film Library- Storage Only Ultrasound Study (05/04/2024 4:10 PM EDT) Narrative RAD - 05/04/2024 4:10 PM EDT This exam is auto-finalizing. It's purpose is for storage only. Curt Cassidy MD IMG FILM LIBRARY ORD ERABLES [facility] [place], [place] documented in this encounter Visit Diagnoses Not on filedocumented in this encounter Care Teams Painter Ordnance Relationship Specialty Start Date End Date Curt Cassidy MD [address] [facility], [place] [address] [place] [address] PCP - General 10/10/10 documented as of this encounter
--- OUTSIDE RECORDS SUMMARY | 2024-10-30 01:32 | XMS_ITS | Encounter Summary ---
Author Organization [facility] [place] [address] Care Team Providers Care Sql Server Dba Name Role Phone Curt Cassidy MD Primary Care Provider [phone] Encounter Details Date Type Department Care Team (Latest Contact Info) Description 04/27/2024 Travel Social History Tobacco Use Types Packs/Day [...] on filedocumented in this encounter Care Teams Sql Server Dba Relationship Specialty Start Date End Date Curt Cassidy MD [address] [facility], [facility] [address] [place] [address] PCP - General 10/10/10 documented as of this encounter
--- OUTSIDE RECORDS SUMMARY | 2024-10-30 01:32 | XMS_ITS | Encounter Summary ---
Author Organization [facility] [place] [address] Care Team Providers Care Risk And Insurance Manager Name Role Phone Curt Cassidy MD Primary Care Provider [phone] Encounter Details Date Type Department Care Team (Late st Contact Info) Description 03/27/2024 Telephone [place] [id number] Ling Maki Social History Tobacco Use Types Packs/Day Years [...] encounter Miscellaneous Notes * Telephone Encounter - Ling Maki - 03/27/2024 9:21 AM EDT Spoke w/patient. Confirmed upcoming appointment with Denise Ivory APRN. documented in this encounter Plan of Treatment Not on file documented as of this encounter Visit Diagnoses Not on filedocumented in this encounter Care Teams Risk And Insurance Manager Relationship Specialty Start Date End Date Curt Cassidy MD [address] [facility], [facility] 3 [place] [address] PCP - General 10/10/10 documented as of this encounter
--- OUTSIDE RECORDS SUMMARY | 2024-10-30 01:32 | XMS_ITS | Encounter Summary ---
Author Organization [facility] Address [facility] [place] [address] Care Team Providers Care Spring Coverer Name Role Phone Curt Cassidy MD Primary Care Provider [phone] Encounter Details Date Type Department Care Team (Late st Contact Info) Description 10/16/2023 Orders [place] [address] Masood Barriga MD [facility] ORTHOPAED[place] [address] Social History Tobacco Use Types Packs/Day Years [...] on filedocumented in this encounter Care Teams Spring Coverer Relationship Specialty Start Date End Date Curt Cassidy MD [address] [facility], [facility] 3 [place] [address] PCP - General 10/10/10 documented as of this encounter
--- OUTSIDE RECORDS SUMMARY | 2024-10-30 01:32 | XMS_ITS | Encounter Summary ---
Author Organization [facility] Address [facility] [place] [address] Care Team Providers Care Drying Oven Tender Name Role Phone Curt Cassidy MD Primary Care Provider [phone] Reason for Visit * Consultation (Routine) - Closed Specialty Diagnoses / Procedures Referred By Contac t Referred To Contact Gastroenterology Diagnoses Elevated liver transaminase level Rheumatoid arthritis, involving unspecified site, unspecified whether rheumatoid factor present Elevated liver Curt Cassidy MD [address] [place] [address], [facility] [address] [place] [address] [facility] [address] [place] [address] Referral ID Status Reason Start Date Expiration Date V isits Requested Visits Authorized [id number] Closed Consult, Test & Treat PCP Updated and/or Approved 03/27/2023 03/26/2024 6 6 Encounter Details Date Type Department Care Team (Late st Contact Info) Description 07/19/2023 2:30 PM EDT Office [place] [address] Denise Ivory APRN [facility] [place] [address] Hepatic fibrosis Social History Tobacco Use Types Packs/Day Years [...] Pulse 89 07/19/2023 1:50 PM EDT Temperature - - Respiratory Rate - - Oxygen Saturation 100% 07/19/2023 1:5 0 PM EDT with 2 L of O2 Inhaled Oxygen Concentration - - Weight 82.7 kg (182 lb 4.8 oz) 07/19/2023 1:50 PM EDT Height 149.9 cm (4' 11) 07/19/2023 1:5 0 PM EDT Body Mass Index 36.82 07/19/2023 1:50 PM EDT documented in this encounter Progress Notes * Denise Ivory APRN - 07/19/2023 2:30 PM EDT Gastroenterology and Hepatology New Patient Visit Patient: Marla Denton : 1955 Provider: Denise Ivory APRN MSN Interval History: Ms. Marla Denton is 67 y.o. with a history of RA, HTN, Hypothyroid, Sjogrens, restrictive lung disease on 02 here for initial consult for elevated lfts. 02 for 5 years-2L continuous. 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 9.6 29% 10-3 300 ROS: Constitutional: [...] R63.5 Cervicalgia M54.2 Pain in limb M79.609 halfway (current) use of anticoagulants Z79.01 Left TKA 11/02 Z96.659 Chronic pain G89.29 Bilateral hand pain with deformities from RA. 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 Mcgill January 2018 Z96.622 Chronic prescription opiate use Z79.891 Anticoagulated on Coumadin Z79.01 Patient is Religious [id number] S/P left elbow I&D, radial forearm flap (plastics) for dehiscence over TEA 05/28/18 Dr. 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 pantoprazole EC (Protonix) 40 mg Tablet, Delayed Release (E.C.) BID@0730,2000 Eliquis 5 mg Tablet Take 5 mg by mouth 2 times daily. Restasis 0.05 % Dropperette EPINEPHrine 0.15 mg/0.15 mL Auto-Injector EPINEPHRINE 0.15 MG/0.15ML SOAJ naloxone (Narcan) 4 mg/actuation [place], Non-Aerosol NARCAN 4 MG/0.1ML LIQD multivitamin Capsule MULTIVITAMINS CAPS famotidine (Pepcid) 40 mg Tablet leflunomide (Arava) 20 mg Tablet TAKE ONE TABLET BY MOUTH DAILY 90 tablet 3 bumetanide (BUMEX) 0.5 mg Tablet TAKE 1 TABLET BY MOUTH ONCE DAILY (FOR SALT AND WATER RETENTION) 11 losartan (COZAAR) 100 mg Tablet Take 150 mg by mouth daily. levothyroxine (SYNTHROID) 150 mcg Tablet 125 mcg. 5 Lactobacillus acidophilus (PROBIOTIC ORAL) Take by mouth daily. docosahexanoic acid/epa (FISH OIL ORAL) Take by mouth 2 times daily. sulfamethoxazole-trimethoprim (BACTRIM DS) 800-160 mg Tablet Take 1 tablet by mouth 2 times daily. 60 tablet 5 DILT-XR 240 mg Capsule,Degradable Cnt Release daily. OXYGEN-AIR DELIVERY SYSTEMS MISC 2 L by TX. com. cn.(Non-Drug; Combo Route) route daily. docusate sodium (COLACE) [...] by mouth daily. (Patient taking differently: Take 100 mg by mouth nightly.) gabapentin (NEURONTIN) 300 mg capsule Take 2 capsules by mouth 2 times daily. Take at 0900 and 1400daily. (Patient taking differently: Take 600 mg by mouth 2 times daily.) diphenhydrAMINE (BENADRYL) 25 mg capsule Take 1 capsule by mouth every 6 hours as needed for Itching (Patient requests to take this the same time as the Methadone). ergocalciferol (VITAMIN D) 50,000 unit capsule 99326 unit, PO, once a month cyclobenzaprine (Flexeril) 5 mg tablet Take 5 mg by mouth as needed. risedronate (ACTONEL) 35 mg Tablet Take 35 mg by mouth every 7 days. acyclovir (Zovirax) 800 mg Tablet TAKE ONE TABLET BY MOUTH EVERY DAY (Patient not taking: Reported on 07/19/2023) 90 tablet 1 fluticasone-salmeterol (ADVAIR HFA) 230-21 mcg/actuation HFA Aerosol Inhaler Inhale 2 puffs into the lungs 2 times daily. Indications: PREVENTION OF BRONCHOSPASM WITH CHRONIC BRONCHITIS (Patient not taking: Reported on 07/19/2023) 3 Inhaler 3 No current facility-administered medications for this visit. [...] Bactrim Sulfisoxazole Sulfisoxazole Acetyl Unknown PHYSICAL EXAMINATION: Vitals: 07/19/23 1350 BP: 145/72 BP Location (NBP): Right arm Patient Position: Sitting BP Cuff Sizes: Adult (25-34 cm) Pulse: 89 SpO2: 100% Weight: 82.7 kg (182 lb 4.8 oz) Height: 149.9 cm (4' 11) Body mass index is 36.82 kg/m??. Alert, and oriented. Easily converses with this content writer. Comfortable wob in ra. Skin and sclera are nonicteric. No rashes on exposed skin. Normoactive bs x4. No ttp x 4. No lower extremity edema. PERTINENT LABS AND IMAGING: Lab Results Component Value Date WBC 7.8 07/19/2023 HGB 11.3 (L) 07/19/2023 HCT 35.1 (L) 07/19/2023 MCV 97.5 (H) 07/19/2023 Lab Results Component Value Date ALT 140 (H) 07/19/2023 AST 89 (H) 07/19/2023 ALKPHOS 140 (H) 07/19/2023 BILITOT 0.3 07/19/2023 Chemistry Component Value Date/Time NA 139 07/19/2023 1549 K 4.4 07/19/2023 1549 CL 99 07/19/2023 1549 CO2 27 07/19/2023 1549 BUN 13 07/19/2023 1549 CREATININE 0.93 07/19/2023 1549 Component Value Date/Time CALCIUM 9.6 07/19/2023 1549 ALKPHOS 140 (H) 07/19/2023 1549 AST 89 (H) 07/19/2023 1549 ALT 140 (H) 07/19/2023 1549 BILITOT 0.3 07/19/2023 1549 Liver Fibrosis Score (Fib 4) was 1.67 at 07/28/2023 10:38 PM Risk of Fibrosis Low Intermediate High NAFLD Less than 1.3 1.3-2.67 Greater than 2.67 Hepatitis C Less than 1.45 1.45-3.25 Greater than 3.25 IMPRESSION/PLAN: Marla Denton is a 67 y.o. female with RA, HTN, Hypothyroid, Sjogrens, restrictive lung diseaseon 02 here for initial consult for elevated lfts. Intermediate fib-4 with lfts up from her baseline. Discussed the possibility of liver biopsy for accurate fibrosis staging. Labs today to evaluate for other causes of liver disease. Discussed fatty liver disease. Discussed lfts could be elevated 2/2 MASH/MASLD. Discussed treatment of fatty liver disease-weight loss, optimizing metabolic risk factors. Follow up pending lab results. The patient was given my contact information and will call me with concerns or questions Total time spent on encounter today: Time spent reviewing records prior to this encounter: 5 minutes Time spent during encounter with patient including counselin minutes Time spent documenting encounter after office visit: 5 minutes [facility] Section of [place]astroenter[place] [address] Cc: Curt Cassidy MD @PCPADD@ documented in this encounter Plan of Treatment Not on file documented as of this encounter Procedures Procedure Name Priority Date/Time Associated Diagnosis Comments HEMOGRAM Routine 07/19/2023 3:49 PM EDT Hepatic fibrosis DIFFERENTIAL, AUTOMATED Routine 07/19/2023 3:49 PM EDT Hepatic fibrosis HEPATITIS C ANTIBODY Routine 07/19/2023 3:49 PM EDT Hepatic fibrosis IRON AND TIBC Routine 07/19/2023 3:49 PM EDT Hepatic fibrosis MEVBS-0-[id number] Routine 07/19/2023 3 :49 PM EDT Hepatic fibrosis MITOCHONDRIAL ANTIBODY, M2 Routine 07/19/2023 3:49 PM EDT Hepatic fibrosis TISSUE TRANSGLUTAMINASE, IGA Routine 07/19/2023 3:49 PM EDT Hepatic fibrosis CERULOPLASMIN Routine 07/19/2023 3:49 PM EDT Hepatic fibrosis HEPATITIS B CORE ANTIBODY, TOTAL Routine 07/19/2023 3:49 PM EDT Hepatic fibrosis SMOOTH MUSCLE ANTIBODY Routine 3:49 PM EDT Hepatic fibrosis HEPATITIS B SURFACE ANTIBODY Routine 07/19/2023 3:49 PM EDT Hepatic fibrosis HEPATITIS B SURFACE ANTIGEN Routine 07/19/2023 3:49 PM EDT Hepatic fibrosis PROTHROMBIN TIME Routine 07/19/2023 3:49 PM EDT Hepatic fibrosis CBC (WITH DIFF) Routine 07/19/2023 3:49 PM EDT Hepatic fibrosis HC DNA AB DS (ATKA) Routine 07/19/2023 3:49 PM EDT Hepatic fibrosis IGG Routine 07/19/2023 3:49 PM EDT Hepatic fibrosis FERRITIN Routine 07/19/2023 3:49 PM EDT Hepatic fibrosis COMPREHENSIVE METABOLIC PANEL Routine 07/19/2023 3:49 PM EDT Hepatic fibrosis documented in this encounter Results * (ABNORMAL) Differential, Automated (07/19/2023 3:49 PM EDT) Neutrophil % 66.6 % [facility] Neutrophil Absolute 5.19 1.70 - 6.10 x10(3)/mc L [facility] Lymph % 17.7 % [facility] Lymphocytes Abs 1.4 0.9 - 3.2 x10(3)/mc L [facility] Monocyte % 12.5 % [facility] Monocyte Abs 1.0(H) 0.3 - 0.9 x10(3)/mc L [facility] Eos % 2.2 % [facility] Eosinophils Abs 0.2 0.0 - 0.4 x10(3)/mc L [facility] Basophil % 0.6 % [facility] Baso Absolute 0.0 0.0 - 0.1 x10(3)/mc L [facility] Immature Gran % 0.40 % [facility] Comment: Immature granulocytes(IG's)percentage and absolute count will include metamyelocytes, myelocytes, and promyelocytes. Blood smears from CBCs yielding IG's will be scanned manually for concordance. If this scan disagrees with the automated IG or if promyelocytes are noted, a manual differential will be performed. Immature Gran Absolute 0.03 0.00 - 0.04 x10(3)/mc L [facility] Blood 07/19/2023 3:49 PM EDT 07/19/2023 4:02 PM EDT Narrative Resulting Agency Comment Spec In Lab Denise Ivory HONEY PRODUCER HEMATOLOGY ORDERAB LES [facility] [place] [address] * (ABNORMAL) Hemogram (07/19/2023 3:49 PM EDT) White Blood Cell 7.8 4.0 - 9.5 x10(3)/mc L [facility] Red Blood Cell 3.60(L) 4.00 - 5.21 x10(6)/mc L [facility] Hemoglobin 11.3(L) 11.7 - 15.5 g/dL [facility] Hematocrit 35.1(L) 35.7 - 45.8 % [facility] Mean Cell Volume 97.5(H) 82.6 - 94.4 fL [facility] Mean Cell Hemoglobin 31.4 27.1 - 32.0 pg [facility] Mean Cell Hemoglobin Concentration 32.2 31.7 - 35.0 g/dL [facility] Platelet 292 145 - 357 x10(3)/mc L [facility] RDW Standard Deviation 42.8 37.0 - 46.0 fL [facility] RDW coefficient of variation 11.9 11.5 - 14.1 % [facility] Mean Platelet Volume 9.6 7.6 - 12.9 fL [facility] NRBC% auto 0.0 % [facility] NRBC Absolute 0.000 0.000 - 0.000 x10(3)/mc L [facility] Blood 07/19/2023 3:49 PM EDT 07/19/2023 4:02 PM EDT Narrative Resulting Agency Comment Spec In Lab Denise Ivory HONEY PRODUCER HEMATOLOGY ORDERAB LES Performing Organization Address City/[facility]/ZIP Co de Phone Number [facility] [place] [address] * Tissue transglutaminase, IgA (07/19/2023 3:49 PM EDT) TTG IgA Ab <0.4 <=10.0 u/ml [facility] Comment: Negative: ??<7 units/mL Indeterminate: 7-10 units/mL Positive: ??>10 units/mL Blood 07/19/2023 3:49 PM EDT 07/23/2023 7:18 AM EDT Narrative Resulting Agency Comment Spec In Lab Denise Ivory HONEY PRODUCER IMMUNOLOGY ORDERAB LES Performing Organization Address [facility]/ZIP Co de Phone Number [facility] [place] [address] * Mitochondrial Antibody, M2 (07/19/2023 3:49 PM EDT) Mitochon Ab (MAY) <0.1 <0.1 (Negative) U [facility] Comment: Test Performed by: [facility] [address] [place] [address] Packing Tractor Machine Operator: Rafael Diaz M.D. Ph.D.; CLIA# [id number] Blood 07/19/2023 3:49 PM EDT 07/23/2023 10:58 AM EDT Narrative Resulting Agency Comment Spec In Lab Denise Ivory APRN LAB SEND OUT ORDER EVY Performing Organization Address [facility] Co de Phone Number [facility] [place] [address] * Iron and TIBC (07/19/2023 3:49 PM EDT) Pathologist [facility] Iron 66 30 - 150 mcg/dL [facility] TIBC 310 250 - 450 mcg/dL [facility] Iron Saturation 21 20 - 50 % [facility] Blood 07/19/2023 3:49 PM EDT 07/19/2023 4:02 PM EDT Narrative Resulting Agency Comment Spec In Lab Denise Ivory HONEY PRODUCER CHEMISTRY ORDERABL ES Performing Organization Address [facility]/ZIP Co de Phone Number [facility] [place] [address] * IgG (07/19/2023 3:49 PM EDT) Immunoglobulin G 1,543 700 - 1,600 mg/dL [facility] Comment: Pediatric Reference Intervals obtained from the Caliper Reference Interval project. http://www.sickkids.ca/caliperproject/index.html Blood 07/19/2023 3:49 PM EDT 07/19/2023 4:02 PM EDT Narrative Resulting Agency Comment Spec In Lab Denise Macrina Ivory HONEY PRODUCER CHEMISTRY ORDERABL ES Performing Organization Address [facility] de Phone Number [facility] [place] [address] * Hepatitis C Antibody (07/19/2023 3:49 PM EDT) Hepatitis C Antibody Negative Negative [facility] Blood 07/19/2023 3:49 PM EDT 07/19/2023 4:02 PM EDT Narrative Resulting Agency Comment Spec In Lab Denise Ivory HONEY PRODUCER CHEMISTRY ORDERABL ES Performing Organization Address [facility] de Phone Number [facility] [place] [address] * Hepatitis B Surface Antigen (07/19/2023 3:49 PM EDT) Hepatitis B Surface Antigen Negative Negative [facility] Blood 07/19/2023 3:49 PM EDT 07/19/2023 4:02 PM EDT Narrative Resulting Agency Comment Spec In Lab Denise Ivory HONEY PRODUCER CHEMISTRY ORDERABL ES Performing Organization Address [facility] de Phone Number [facility] [place] [address] * Hepatitis B Surface Antibody (07/19/2023 3:49 PM EDT) Hepatitis B Surface Antibody, Quantitative <3.5 IU/L [facility] Comment: HepB Surface Ab Quant: Unvaccinated: < 8.5 IU/L Vaccinated: >= 11.5 IU/L Hepatitis B Surface Antibody Negative [facility] Comment: Patient is presumed to be not vaccinated or immune to HBV infection. Expected Results: Vaccinated: Positive Unvaccinated: Negative Blood 07/19/2023 3:49 PM EDT 07/19/2023 4:02 PM EDT Narrative Resulting Agency Comment Spec In Lab Denise Macrina Ivory HONEY PRODUCER CHEMISTRY ORDERABL ES Performing Organization Address [facility] Co de Phone Number [facility] [place] [address] * Hepatitis B Core Antibody, Total (07/19/2023 3:49 PM EDT) Hepatitis B Core Antibody Negative Negative [facility] Blood 07/19/2023 3:49 PM EDT 07/19/2023 4:02 PM EDT Narrative Resulting Agency Comment Spec In Lab Denise Macrina Ivory HONEY PRODUCER CHEMISTRY ORDERABL ES Performing Organization Address [facility] Co de Phone Number [facility] [place] [address] * Ferritin (07/19/2023 3:49 PM EDT) Ferritin 160 30 - 400 ng/mL [facility] Comment: Pediatric reference ranges not verified at [facility], interpret with caution. Reference ranges for females greater than 50 years of age approach values for men, i.e., 30-400 ng/mL. Blood 07/19/2023 3:49 PM EDT 07/19/2023 4:02 PM EDT Narrative Resulting Agency Comment Spec In Lab Denise Ivory HONEY PRODUCER CHEMISTRY ORDERABL ES Performing Organization Address [facility] Co de Phone Number [facility] [place] [address] * Ceruloplasmin (07/19/2023 3:49 PM EDT) Ceruloplasmin 30.1 16.0 - 45.0 mg/dL [facility] Blood 07/19/2023 3:49 PM EDT 07/19/2023 4:02 PM EDT Narrative Resulting Agency Comment Spec In Lab Denise Macrina Ivory APRN CHEMISTRY ORDERABL ES Performing Organization Address [facility] Co de Phone Number [facility] [place] [address] * Smooth Muscle Antibody (07/19/2023 3:49 PM EDT) Sm Muscle Ab (MARCH) Negative Negative [facility] Comment: Negative: No further testing will be performed ADDITIONAL INFORMATION This test was developed and its performance characteristics determined by [facility] in a manner consistent with CLIA requirements. This test has not been cleared or approved by the U.S. Food and Drug Administration. Test Performed by: [facility] [place] [facility] - [address] [address] Packing Tractor Machine Operator: Rafael Diaz M.D. Ph.D.; CLIA# [id number] Blood 07/19/2023 3:49 PM EDT 07/23/2023 10:58 AM EDT Narrative Resulting Agency Comment Spec In Lab Denise Ivory APRN LAB SEND OUT ORDER EVY Performing Organization Address [facility] Co de Phone Number [facility] [place] [address] * GORDY Antibody Screen (07/19/2023 3:49 PM EDT) GORDY Ab Screen Negative Negative [facility] Comment: This antinuclear antibody (GORDY) screen is a qualitative test performed using a fluoroenzyme immunoassay on the Epyon 250 analyzer. This screen is designed to detect antibodies to U1RNP, SS-A/Ro, SS-B/La, centromere B, Scl-70, Ester-1, and Sm(Gonzalez) proteins in serum samples. Antibodies to other nuclear antibodies will not be detected with this assay. This GORDY screen is also performed in concert with a quantitative for IgG antibodies to dsDNA. Please note that as of 09/11/2022 that this testing is performed by the Special Chemistry Laboratory at [facility]. This change in testing location is associated with a change is testing method and reference intervals. Please review the results of this test in association with the posted reference intervals. dsDNA Ab 1.4 <=15.0 IU/mL [facility] Comment: <10 negative 10-15 equivocal >15 positive This dsDNA antibody result was generated using a fluoroenzyme immunoassay on the [employer] 250 analyzer. This quantitative test is designed to detect IgG antibodies directed against double stranded DNA in human serum. The presence of antibodies that recognize dsDNA is a highly specific marker for systemic lupus erythematosus. Please note that as of 09/11/2022 that this testing is performed by the Special Chemistry Laboratory at [facility]. This change in testing location is associated with a change is testing method and reference intervals. Please review the results of this test in association with the posted reference intervals. Blood 07/19/2023 3:49 PM EDT 07/23/2023 7:18 AM EDT Narrative Resulting Agency Comment Spec In Lab Denise Ivory APRN LAB SEND OUT ORDER EVY Performing Organization Address [facility] Co de Phone Number [facility] [place] [address] * A1AT Serum Concentration (07/19/2023 3:49 PM EDT) A1AT 167 90 - 200 mg/dL [facility] Blood 07/19/2023 3:49 PM EDT 07/19/2023 4:02 PM EDT Narrative Resulting Agency Comment Spec In Lab Denise Ivory APRN CHEMISTRY ORDERABL ES Performing Organization Address [facility] de Phone Number [facility] [place] [address] * (ABNORMAL) Prothrombin Time (07/19/2023 3:49 PM EDT) Prothrombin Time 15.5(H) 9.4 - 12.5 sec [facility] International Normalization Ratio 1.4 [facility] Comment: An INR <2.0 indicates adequate procoagulant activity for hemostasis in most patients without underlying bleeding disorders, though the INR may not adequately reflect hemostatic capacity in patients with liver disease and synthetic impairment. The recommended target INR range for therapeutic anticoagulation is 2.0 ? 3.0 for most applications, though lower and higher ranges may be appropriate depending on clinical circumstances. Blood 07/19/2023 3:49 PM EDT 07/19/2023 4:02 PM EDT Narrative Resulting Agency Comment Spec In Lab Denise Ivory HONEY PRODUCER HEMATOLOGY ORDERAB LES [facility] [place] [address] * (ABNORMAL) Comprehensive metabolic panel (non-fasting) (07/19/2023 3:49 PM EDT) Glucose 95 65 - 199 mg/dL [facility] Comment:Diabetes: >=200 mg/d L plus symptoms Blood Urea Nitrogen 13 8 - 18 mg/dL [facility] Creatinine 0.93 0.70 - 1.20 mg/dL [facility] Sodium 139 135 - 145 mmol/L [facility] Potassium 4.4 3.5 - 5.0 mmol/L [facility] Comment: Please note: ??Patients with WBC >100,000 may have falsely elevated Potassium levels. ??For accurate Potassium quantification in these patients send serum separator tube (gold top) for subsequent determinations. ??Contact the Clinical Chemistry Laboratory if there are any questions. Chloride 99 98 - 107 mmol/L [facility] Carbon Dioxide 27 22 - 31 mmol/L [facility] Anion Gap 13 5 - 15 mmol/L [facility] Calcium 9.6 8.5 - 10.5 mg/dL [facility] Protein, Total 8.0 6.1 - 8.0 g/dL [facility] Albumin 4.5 3.2 - 5.2 g/dL [facility] Aspartate Aminotransferase 89(H) 0 - 30 unit/L [facility] Alanine Aminotransferase 140(H) 0 - 30 unit/L [facility] Alkaline Phosphatase 140(H) 35 - 105 unit/L [facility] Bilirubin, Total 0.3 0.2 - 1.3 mg/dL [facility] Est Glomerular Filtration Rate 68 >=60 mL/min/1. 73 m?? [facility] Comment: This patient's estimated GFR [...] and symptoms in addition to eGFR. Blood 07/19/2023 3:49 PM EDT 07/19/2023 4:02 PM EDT Narrative Resulting Agency Comment Spec In Lab Denise Ivory HONEY PRODUCER CHEMISTRY ORDERABL ES [facility] [place] [address] documented in this encounter Visit Diagnoses Diagnosis Hepatic fibrosis Cirrhosis of liver without mention of alcohol documented in this encounter Care Teams Drying Oven Tender Relationship Specialty Start Date End Date Curt Cassidy MD [address] [facility] [address] [place] [address] PCP - General 10/10/10 documented as of this encounter
--- OUTSIDE RECORDS SUMMARY | 2024-10-30 01:32 | XMS_ITS | Encounter Summary ---
Author Organization [facility] Address [facility] [place] [address] Care Team Providers Care Washer Engineer Name Role Phone Curt Cassidy MD Primary Care Provider [phone] Encounter Details Date Type Department Care Team (Latest Contact Info) Description 01/13/2024 9:24 AM EST - 01/13/2024 11:59 PM [facility] Hospital Encounter XRay at [address] [place] [address] Christopher Gilbert MD [facility] [place] [address] Chronic left-sided low back pain without sciatica; Chronic left hip pain; Other idiopathic scoliosis, thoracolumbar region Discharge Disposition: Home Social History Tobacco Use [...] Sig Dispensed Refills Start Date End Date cyanocobalamin, vitamin B-12, (VITAMIN B-12 ORAL) Take [...] MG/0.15ML SOAJ 01/16/2021 naloxone (Narcan) 4 mg/actuation [place], Non-Aerosol NARCAN 4 MG/0.1ML LIQD 02/02/2019 multivitamin [...] ORAL) Take 2,000 Units by mouth daily. sulfamethoxazole-trime thoprim (BACTRIM DS) 800-160 mg Tablet Take 1 tablet by mouth 2 times daily. 60 tablet 5 04/19/2019 DILT-XR 240 mg Capsule,Degradable Cnt Release daily. 10/06/2018 OXYGEN-AIR DELIVERY SYSTEMS MISC 2 L by Misc.(Non-Drug; Combo Route) route daily. docusate sodium (COLACE) [...] mouth daily. 11/05/2013 gabapentin (NEURONTIN) 300 mg capsuleIndications:Iggy ropathy Take 2 capsules by mouth 2 times daily. Take at 0900 and 1400 daily. 11/05/2013 diphenhydrAMINE (BENADRYL) 25 mg capsule Take 1 capsule by mouth every 6 hours as needed for Itching (Patient requests to take this the same time as the Methadone). 11/05/2013 ergocalciferol (VITAMIN D) 50,000 unit capsule [id number] unit, PO, once a month 10/23/2010 documented as of this encounter Plan of Treatment Not on file documented as of this encounter Procedures Procedure Name Priority Date/Time Associated Diagnosis Comments XR SCOLIOSIS OR TOTAL SPINE 2 VIEW Routine 01/13/2024 9:40 AM EST Chronic left-sided low back pain without sciatica Chronic left hip pain Other idiopathic scoliosis, thoracolumbar region documented in this encounter Results * XR Scoliosis or [...] have questions please contact the health healthcare associate that requested your imaging first. ? Electronically signed by: Lisa Estrada MD, [facility] ([phone]), at 01/13/2024 9:54 PM Narrative 01/13/2024 9:54 PM EST EXAMINATION: XR [...] who have questions please contactthe health healthcare associate that requested your imaging first. Electronically signed by: Lisa Estrada MD, [facility]([phone]), at 01/13/2024 9:54 PM Christopher Gilbert MD IMG DX ORDERABLES documented in this encounter Visit Diagnoses Diagnosis Chronic left-sided low back pain without sciatica Chronic left hip pain Pain in joint, pelvic region and thigh Other idiopathic scoliosis, thoracolumbar region documented in this encounter Care Teams Washer Engineer Relationship Specialty Start Date End Date Curt Cassidy MD [address] [facility], [facility] 3 [place] [address] PCP - General 10/10/10 documented as of this encounter
--- OUTSIDE RECORDS SUMMARY | 2024-10-30 01:32 | XMS_ITS | Encounter Summary ---
Author Organization [place] [address] Care Team Providers Care Construction Consultant Name Role Phone Curt Cassidy MD Primary Care Provider [phone] Encounter Details Date Type Department Care Team (Late st Contact Info) Description 02/28/2023 Telephone [place] [phone] Hieu Magana PA [address] [place] [address] Social History Tobacco Use Types Packs/Day Years [...] encounter Miscellaneous Notes * Telephone Encounter - Hieu Magana PA - 02/28/2023 3:36 PM EDT Stop arava for a week To see it effect the okay sounds good update ZHANG Goes to c dentist on saturday will come in She will let me know okay I agree but in the meantime lets stop the Arava and see what happens right-handed you call me up and tell me her right awake documented in this encounter Plan of Treatment Not on file documented as of this encounter Visit Diagnoses Not on filedocumented in this encounter Care Teams Construction Consultant Relationship Specialty Start Date End Date Curt Cassidy MD [address], [address] [id number] PCP - General 10/10/10 documented as of this encounter
--- OUTSIDE RECORDS SUMMARY | 2024-10-30 01:32 | XMS_ITS | Encounter Summary ---
Author Organization [facility] [place] [address] Care Team Providers Care Piler Name Role Phone Curt Cassidy MD Primary Care Provider [phone] Encounter Details Date Type Department Care Team (Latest Contact Info) Description 04/27/2024 2:25 PM EDT Laboratory Appointment Lab [address] [place] [phone] Hepatic fibrosis; Metabolic dysfunction-associated steatohepatitis (MASH) Social [...] Procedure Name Priority Date/Time Associated Diagnosis Comments LIVER FIBROSIS PANEL Routine 04/27/2024 1:39 PM EDT Hepatic fibrosis Metabolic dysfunction-associated steatohepatitis (MASH) HEMOGRAM Routine 04/27/2024 1:39 PM EDT Hepatic fibrosis Metabolic dysfunction-associated steatohepatitis (MASH) DIFFERENTIAL, AUTOMATED Routine 04/27/2024 1:39 PM EDT Hepatic fibrosis Metabolic dysfunction-associated steatohepatitis (MASH) CBC (WITH DIFF) Routine 04/27/2024 1:39 PM EDT Hepatic fibrosis Metabolic dysfunction-associated steatohepatitis (MASH) COMPREHENSIVE METABOLIC PANEL Routine 04/27/2024 1:39 PM EDT Hepatic fibrosis Metabolic dysfunction-associated steatohepatitis (MASH) documented in this encounter Results * (ABNORMAL) Differential, Automated (04/27/2024 1:39 PM EDT) Neutrophil % 62.6 % [facility] Neutrophil Absolute 5.02 1.70 - 6.10 x10(3)/mc L [facility] Lymph % 22.2 % [facility] Lymphocytes Abs 1.8 0.9 - 3.2 x10(3)/mc L [facility] Monocyte % 12.2 % [facility] Monocyte Abs 1.0(H) 0.3 - 0.9 x10(3)/mc L [facility] Eos % 1.7 % [facility] Eosinophils Abs 0.1 0.0 - 0.4 x10(3)/mc L [facility] Basophil % 0.9 % [facility] Baso Absolute 0.1 0.0 - 0.1 x10(3)/mc L [facility] Immature Gran % 0.40 % [facility] Comment: Immature granulocytes(IG's)percentage and absolute count will include metamyelocytes, myelocytes, and promyelocytes. Blood smears from CBCs yielding IG's will be scanned manually for concordance. If this scan disagrees with the automated IG or if promyelocytes are noted, a manual differential will be performed. Immature Gran Absolute 0.03 0.00 - 0.04 x10(3)/mc L [facility] Blood 04/27/2024 1:39 PM EDT 04/27/2024 1:50 PM EDT Narrative Resulting Agency Comment Spec In Lab Denise Ivory BOAT MASTER HEMATOLOGY ORDERAB LES [facility] [place] [place] [address] * (ABNORMAL) Hemogram (04/27/2024 1:39 PM EDT) [facility] White Blood Cell 8.0 4.0 - 9.5 x10(3)/[facility] Red Blood Cell 3.56(L) 4.00 - 5.21 x10(6)/mc [facility] Hemoglobin 10.9(L) 11.7 - 15.5 g/dL [facility] Hematocrit 33.7(L) 35.7 - 45.8 % [facility] Mean Cell Volume 94.7(H) 82.6 - 94.4 fL [facility] Mean Cell Hemoglobin 30.6 27.1 - 32.0 pg [facility] Mean Cell Hemoglobin Concentration 32.3 31.7 - 35.0 g/dL [facility] Platelet 285 145 - 357 x10(3)/[facility] RDW Standard Deviation 45.5 37.0 - 46.0 [facility] RDW coefficient of variation 13.1 11.5 - 14.1 % [facility] Mean Platelet Volume 9.2 7.6 - 12.9 [facility]ORY NRBC% auto 0.0 % [facility] NRBC Absolute 0.000 0.000 - 0.000 x10(3)/[facility] Blood 04/27/2024 1:39 PM EDT 04/27/2024 1:50 PM EDT Narrative Resulting Agency Comment Spec In Lab Denise Ivory BOAT MASTER HEMATOLOGY ORDERAB LES [facility] [place] [address] * (ABNORMAL) Comprehensive metabolic panel (non-fasting) (04/27/2024 1:39 PM EDT) [facility] Glucose 116 65 - 199 mg/dL [facility] Comment:Diabetes: >=200 mg/d L plus symptoms Blood Urea Nitrogen 12 8 - 18 mg/dL [facility] Creatinine 1.04 0.70 - 1.20 mg/dL [facility] Sodium 139 135 - 145 mmol/L [facility] Potassium 4.2 3.5 - 5.0 mmol/L [facility] Comment: Please note: ??Patients with WBC >100,000 may have falsely elevated Potassium levels. ??For accurate Potassium quantification in these patients send serum separator tube (gold top) for subsequent determinations. ??Contact the Clinical Chemistry Laboratory if there are any questions. Chloride 102 98 - 107 mmol/L [facility] Carbon Dioxide 27 22 - 31 mmol/L [facility] Anion Gap 10 5 - 15 mmol/L [facility] Calcium 9.7 8.5 - 10.5 mg/dL [facility] Protein, Total 7.4 6.1 - 8.0 g/dL [facility] Albumin 4.1 3.2 - 5.2 g/dL [facility] Aspartate Aminotransferase 43(H) 0 - 30 unit/L [facility] Alanine Aminotransferase 63(H) 0 - 30 unit/L [facility] Alkaline Phosphatase 169(H) 35 - 105 unit/L [facility] Bilirubin, Total 0.3 0.2 - 1.3 mg/dL [facility] Est Glomerular Filtration Rate 59(L) >=60 mL/min/1. 73 m?? [facility] Comment: This patient's estimated GFR [...] Agency Comment Spec In Lab Denise Ivory BOAT MASTER CHEMISTRY ORDERABL ES [facility] [place] [address] * (ABNORMAL) Liver Fibrosis Panel (04/27/2024 1:39 [...] developed and its performance characteristics ?determined by [facility] in a manner consistent with ?CLIA requirements. This test has not been cleared or ?approved by the U.S. Food and Drug Administration. ??[employer] Serial Number ?[id number] ??Apolipoprotein A1, S ? 144 ? mg/dL ??>=140 ??Nqepm-4-Njtriznaxuna n, S ? 150 ? mg/dL ??100 - 280 ??Haptoglobin, S ? 221 ?H ?mg/dL ??30 - 200 ??Alanine Aminotransferase (ALT), S ?69 ? H ?U/L ?7-45 ??Gamma Glutamyltransferase (GGT), S ? 37 ? H ?U/L ?5 - 36 ??Bilirubin, Total, S ?0.3 ? mg/dL ??0.0 - 1.2 ?Test Performed by: ?[facility] ?[address] [place] [address] ?[employer] Sales Representative: Tayla Gallo Ph.D.; CLIA# [id number] ?Test Performed by: ?[facility] [address] ?[address] [place] [address] ?[employer] Sales Representative: Tayla Gallo Ph.D.; CLIA# [id number]) [facility] Blood 04/27/2024 1:39 PM EDT 04/27/2024 3:11 PM EDT Narrative Resulting Agency Comment Spec In Lab Denise Ivory APRN LAB SEND OUT ORDER EVY [facility] [place] [address] documented in this encounter Visit Diagnoses Diagnosis Hepatic fibrosis Cirrhosis of liver without mention of alcohol Metabolic dysfunction-associated steatohepatitis (MASH) documented in this encounter Care Teams Piler Relationship Specialty Start Date End Date Curt Cassidy MD [address], [facility] [place] [address] PCP - General 10/10/10 documented as of this encounter
--- OUTSIDE RECORDS SUMMARY | 2024-10-30 01:32 | XMS_ITS | Encounter Summary ---
Author Organization [facility] [place] [address] Care Team Providers Care Cat Scan Tech Name Role Phone Curt Cassidy MD Primary Care Provider [phone] Encounter Details Date Type Department Care Team (Latest Contact Info) Description 09/27/2023 10:30 AM EST TH Visit (TeleHealth) [place] [phone] Hieu Magana PA [address] [place] [address] Rheumatoid arthritis, involving unspecified site, unspecified whether rheumatoid factor present (Primary Dx); Osteoporosis, unspecified osteoporosis type, unspecified pathological fracture presence; S/P left elbow I&D, radial forearm flap (plastics) for dehiscence over TEA 05/28/18 Dr. Fuller Social History Tobacco Use Types Packs/Day Years Used Date Smoking Tobacco: Never Smokeless Tobacco: Never Alcohol Use Standard Drinks/Week Comments No 0 (1 standard drink = 0.6 oz pur e alcohol) Sex and Gender Information Value Date Recorded Sex Assigned at Not on file Gender Identity Not on file Sexual Orientation Not on file documented as of this encounter Patient Instructions * Patient Instructions* Hieu Magana PA - 09/27/2023 10:30 AM EST No medical changes Follow up 4-6months via telhealth documented in this encounter Progress Notes * Hieu Magana PA - 09/27/2023 10:30 AM EST Rheumatology Outpatient Note Chart review conducted prior to the visit includes review of PMHx, medications, allergies, and prior office notes. The most pertinent findings are listed below. The Patient History Form was reviewed with the patient, which included review of ROS, social hx, pmhx, famhx, current and prior medications, allergies, IZs, and ADLs. The form is scanned into the patient's chart. This patient, because they are at increased risk for complications of COVID-19 due to underlying medical conditions AND/OR because there is a public health emergency, did not come to the office for non-emergency care. The patient verbally consented to this electronic visit. The patient understands the limitations of not being physically examined and that we may not be able to address all issues. The concept of telemedicine has been described to the patient. Patient has been informed of the anticipated benefits and possible risks. Patient understands information provided regarding telemedicine, has had the opportunity to ask questions about this information, and all questions have been answered to the patient's satisfaction. Patient consents for the use of telemedicine in his or her medical care and authorizes the transmission of any relevant medical information to providers and staff involved in the patient's medical or mental health care. History of Present Illness: Marla Denton is a 67 y.o. female who presents today for evaluation of RA. 02.25.23:Impression/Recommendations : Marla Denton is a 67 y.o. female who presents today with rheumatoid arthritis with an ongoing headache after being evaluated by NMR H ED with no findings on exam suggestive of giant cell arteritis we will update screening laboratory studies today she will continue on leflunomide as previous otherwise further changes pending her clinical course and review of labs patient in agreement. Patientmay need additional follow-up from her primary care provider regarding her headache. Interval History: Patient presents today for follow-up. In the spring she discontinued leflunomide because of dental procedures and has remained off of it. She does not feel any different from an arthralgias perspective she thinks she is doing well given the difficulties she has had with infectionsshe is thinking maybe she should stay off of it for now. There is been no major changes in her health off of leflunomide. Review of Systems Constitutional: Negative for absenteeism, fever and weight loss. Respiratory: Negative for shortness of breath and chest discomfort. Gastrointestinal: Negative for vomiting. HENT: Negative. Psychiatric/Behavioral: Negative for social aversion. Hematologic/Lymphatic: Negative. Musculoskeletal: Negative for stiffness and joint swelling. Endocrine: Negative for polydipsia, polyphagia, polyuria and Cushingoid appearance. Cardiovascular: Negative for syncope. Neurological: Negative for vertigo. Skin: Negative for dry skin, urticaria and blister. Allergies Allergies Allergen Reactions Furosemide Palpitations Pt states [...] Antibiotics) Tolerates Bactrim Sulfisoxazole Sulfisoxazole Acetyl Unknown Medications Current Outpatient Medications on File Prior to Visit Medication Sig Dispense Refill cyclobenzaprine (Flexeril) 5 mg tablet Take 5 mg by mouth as needed. alendronate (Fosamax) 70 mg tablet Take 70 mg by mouth once a week. pantoprazole EC (Protonix) 40 mg Tablet, Delayed Release (E.C.) BID@0730,2000 risedronate (ACTONEL) 35 mg Tablet Take 35 mg by mouth every 7 days. Eliquis 5 mg Tablet Take 5 mg by mouth 2 times daily. Restasis 0.05 % Dropperette EPINEPHrine 0.15 mg/0.15 mL Auto-Injector EPINEPHRINE 0.15 MG/0.15ML SOAJ naloxone (Narcan) 4 mg/actuation [place], Non-Aerosol NARCAN 4 MG/0.1ML LIQD multivitamin Capsule MULTIVITAMINS CAPS famotidine (Pepcid) 40 mg Tablet acyclovir (Zovirax) 800 mg Tablet TAKE ONE TABLET BY MOUTH EVERY DAY (Patient not taking: Reported on 07/19/2023) 90 tablet 1 leflunomide (Arava) 20 mg Tablet TAKE ONE [...] L by Misc.(Non-Drug; Combo Route) route daily. fluticasone-salmeterol (ADVAIR HFA) 230-21 mcg/actuation HFA Aerosol Inhaler Inhale 2 puffs into the lungs 2 times daily. Indications: PREVENTION OF BRONCHOSPASM WITH CHRONIC BRONCHITIS (Patient not taking: Reported on 07/19/2023) 3 Inhaler 3 docusate sodium (COLACE) 100 mg Capsule Take [...] Methadone). ergocalciferol (VITAMIN D) 50,000 unit capsule [id number] unit, PO, once a month No current facility-administered medications on file prior to visit. PMHX Patient Active Problem List Diagnosis Code Seronegative [...] R63.5 Cervicalgia M54.2 Pain in limb M79.609 MCFP (current) use of anticoagulants Z79.01 Left TKA [...] Z79.891 Anticoagulated on Coumadin Z79.01 Patient is Sikh [id number] S/P left elbow I&D, radial forearm flap (plastics) for dehiscence over TEA 05/28/18 Dr. Fuller S51.002S Tachycardia R00.0 Hyperlipidemia E78.5 MCFP current use of systemic steroids Z79.52 Macrocytic anemia D53.9 On home oxygen therapy Z99.81 Restless legs syndrome G25.81 Restrictive pattern present on pulmonary function testing R94.2 Chronic elbow pain, PJI total elbow life replacement long antibiotic suppression M25.522, G89.29 SurgHX Past Surgical History: Procedure Laterality Date CERVICAL FUSION HAND TENDON SURGERY HYSTERECTOMY, TOTAL ABDOMINAL PRO ARTHROPLASTY KNEE CONDYLE & PLATEAU MEDIAL & LAT COMPARTMENTS 11/02/2013 @TOTAL KNEE ARTHROPLASTY performed by Mayco Montanez Jr., MD at [facility] OR PRO EXPLORE/DRAIN ELBOW FOR INFECT Left 05/28/2018 ARTHROTOMY, ELBOW, EXPLORATION, DRAINAGE, OR REMOVAL FB (WRVU 6.08) performed by Lorie Fuller MD at [facility] MA[facility] OR PRO MUSCLE-SKIN FLAP, ARM Left 05/28/2018 FLAP, MYOCUTANEOUS OR FASCIOCUTANEOUS, UPPER EXTREMITY (WRVU 17.04) performed by Rupert Masters MD at [facility] OR PRO REVISE ULNAR NERVE AT ELBOW Left 05/28/2018 NEUROPLASTY &/OR TRANSPOSITION, ULNAR NERVE AT ELBOW (WRVU 7.26) performed by Lorie Fuller MD at [facility] MA[facility] OR PRO SPLIT GRFT TRUNK, ARM, LEG <100SQCM N/A 05/28/2018 SPLIT THICK SKIN GRAFT,100 SQ CM OR LESS, ARMS (WRVU 9.9) performed by Rupert Masters MD at [facility] MA[facility] OR SHOULDER SURGERY TOTAL ELBOW ARTHROPLASTY Left 01/2018 XR JOINT ASPIRATION - MEDIUM JOINT LEFT Left 09/15/2021 XR Fluoro Guided Joint Aspiration Medium Left 09/15/[address] [facility] XRAY XR JOINT ASPIRATION - MEDIUM JOINT LEFT Left 03/07/2022 XR Fluoro Guided Joint Aspiration Medium Left 03/07/[address] [facility] XRAY Physical Examination: There were no vitals taken for this visit. Physical Exam Constitutional: General: She is not in acute distress. Pulmonary: Effort: Pulmonary effort is normal. Neurological: Mental Status: She is alert. Psychiatric: Mood and Affect: Mood normal. Behavior: Behavior normal. Thought Content: Thought content normal. Judgment: Judgment normal. Impression/Recommendations : Marla Denton is a 67 y.o. female who presents today with a history of rheumatoid arthritis with complications patient having been off of remittive medications since February. She is no longer taking leflunomide. She would like to continue off of this medication we will continue to observe her should she flare up or have another difficulty she will call and let us know we will otherwise see her again in follow-up in 6 months sooner if indicated patient in agreement. documented in this encounter Plan of Treatment Not on file documented as of this encounter Visit Diagnoses Diagnosis Rheumatoid arthritis, involving unspecified site, unspecified whether rheumatoid factor present- Primary Osteoporosis, unspecified osteoporosis type, unspecified pathological fracture presence S/P left elbow I&D, radial forearm flap (plastics) for dehiscence over TEA 05/28/18 Dr. Fuller documented in this encounter Care Teams Cat Scan Tech Relationship Specialty Start Date End Date Curt Cassidy MD [address], [facility] [address] [place] [address] PCP - General 10/10/10 documented as of this encounter
--- OUTSIDE RECORDS SUMMARY | 2024-10-30 01:32 | XMS_ITS | Encounter Summary ---
Author Organization [facility] Address [facility] [place] [address] [place] [address] Care Team Providers Care Nurse Esthetician Name Role Phone Curt Cassidy MD Primary Care Provider [phone] Reason for Visit * Reason Comments Establish Care R HIP PAIN NO KNO WN INJURY * Consultation (Routine) - Closed Specialty Diagnoses / Procedures Referred By Contac t Referred To Contact Orthopaedics Diagnoses Hip pain R HIP PAIN Curt Cassidy MD [address] [place] [address], [facility] [address] [place] [address] [facility] [address] [place] [id number] Referral ID Status Reason Start Date Expiration Date V isits Requested Visits Authorized [id number] Closed Consult, Test & Treat 09/10/2023 09/09/2024 1 1 Encounter Details Date Type Department Care Team (Late st Contact Info) Description 12/02/2023 2:00 PM EST Office [place] [address] Jolynn Houser PA [facility] [place] [address] Low back pain, non-specific Social History Tobacco Use Types Packs/Day Years [...] - Weight 82.6 kg (182 lb) 12/02/2023 1:53 PM EST Height 147.3 cm (4' 10) 12/02/2023 1:53 PM EST Body Mass Index 38.04 12/02/2023 1:53 PM EST documented in this encounter Progress Notes * Jolynn Houser PA - 12/02/2023 2:00 PM EST Images from the original note were not included. Department of Orthopaedics Division of Adult Joint Reconstructive Surgery ARTHROPLASTY HISTORY/PREVIOUS HIP SURGERY: none No chief complaint on file. Today's date: 12/02/2023 Subjective: Marla Denton presents to clinic today to discuss RIGHT hip pain. Marla has a history of seronegative RA, orthopnea, osteoporosis, pulmonary embolism with long termanticoagulation usage. Lung nodule, restrictive lung disease, on home O2 Marla comes to clinic today with her sister who is her caregiver. She is coming in for RIGHT hip pain however she thinks that the pain may be stemming from. She cannot lay on her hips. The bone feels that it wants to come out. Her neck is fused and it is hard to turn on on hip. She was having a lot of spasms in both hips. She was seen in the ED and they thought that it may be sciatica in nature. She does have back pain. Her pain starts in the back, goes down the buttock, then moves lateral with radiation to the groin. She mostly ambulates in the wheelchair as walking affects her breathing. Sometimes she is able to walk without the cane. REVIEW OF SYSTEMS: Marla denies fevers, chills, night sweats, nausea, or vomiting. QUESTIONNAIRE RESPONSES: 05/15/2018 General Health, Prior Treatments, PreExisting Condition, Health Habits, About You PROMIS-10 General Health Fair PROMIS-10 Quality of Life Fair PROMIS-10 Physical Health Fair PROMIS-10 Mental Health Very Good PROMIS-10 Social Activity Very Good PROMIS-10 Everyday Activities A little PROMIS-10 Pain 6 PROMIS-10 Fatigue Severe PROMIS-10 Social Roles Fair PROMIS-10 Anxious or Depressed Never PROMIS PHYSICAL SCORE (range 16-68) 32.4 PROMIS MENTAL SCORE (range 21-68) 50.8 Treatments Tried Narcotics/opiods (Percocet, codeine, hydrocodone) Prior surgery for this problem Prior Surgery elbow replacement removal of hematoma No data to display No data to display ALLERGIES Allergies Allergen Reactions Furosemide Palpitations Pt states [...] Antibiotics) Tolerates Bactrim Sulfisoxazole Sulfisoxazole Acetyl Unknown SOCIAL HISTORY: reports that she has never smoked. She has never used smokeless tobacco. She reports that she does not drink alcohol and does not use drugs. SIGNIFICANT MEDICAL COMORBIDITIES: Patient Active Problem List Diagnosis Code Seronegative [...] R63.5 Cervicalgia M54.2 Pain in limb M79.609 meterman (current) use of anticoagulants Z79.01 Left TKA [...] Z79.891 Anticoagulated on Coumadin Z79.01 Patient is Zoroastrian [id number] S/P left elbow I&D, radial forearm flap (plastics) for dehiscence over TEA 05/28/18 Dr. Fuller S51.002S Tachycardia R00.0 Hyperlipidemia E78.5 meterman current use of systemic steroids Z79.52 Macrocytic anemia D53.9 On home oxygen therapy Z99.81 Restless legs syndrome G25.81 Restrictive pattern present on pulmonary function testing R94.2 Chronic elbow pain, PJI total elbow life replacement long antibiotic suppression M25.522, G89.29 Objective: There were no vitals taken for this visit. General : alert, appears stated age, and cooperative Gait: Abnormal. The patient can bear weight on the injured extremity. Hip Exam: RIGHT Prior surgery on this joint:Yes Leg Length: Longer leg: equal Limb Length discrepancy: N/A Motion: Flexion contracture: 0 Total degrees of Flexion: 105 Total degrees of Abduction: 20 Total degrees of Ext Rotation: 35 Total degrees of Internal Rotation: 0 Gait Abnormality: Antalgic Skin Integrity: Normal Pulses Palpable: Left PT and DP present Motor/Sensory: Left Distal Motor and sensory: Normal Hip Abductors: 4 Imaging: X-ray mild joint space narrowing. No significant osteophyte formation Assessment: Ms. Denton is a 68 y.o. year old with mild hip arthritis, not currently symptomatic. Low back pain. Plan: We had a long discussion regarding the nature of their discomfort. We reviewed the XR images which show X-ray mild joint space narrowing. No significant osteophyte formation. On exam Buddy has good hip range of motion with no reproducible groin pain. She does have pain stemming in her low back with radiation from the center of her low back lateral pelvis some groin pain as well as distally on the lateral aspect of the thigh. As she does not have significant reproduciblegroin pain on exam I think this is likely stemming from her back rather than her hip joints. We diddiscuss seeing spine for evaluation. If they feel it is not coming from her back we could obtain therapeutic and diagnostic injection into the hip with cortisone and lidocaine to see if this relievesher pain. Jolynn Houser PA-C This note was dictated using [employer] software documented in this encounter Plan of Treatment Not on file documented as of this encounter Visit Diagnoses Diagnosis Low back pain, non-specific documented in this encounter Care Teams Nurse Esthetician Relationship Specialty Start Date End Date Curt Cassidy MD [address], [facility] [address] [place] [address] PCP - General 10/10/10 documented as of this encounter
--- OUTSIDE RECORDS SUMMARY | 2024-10-30 01:32 | XMS_ITS | Encounter Summary ---
Author Organization [facility] Address [facility] [place] [address] Care Team Providers Care Variety Performer Name Role Phone Curt Cassidy MD Primary Care Provider [phone] Reason for Referral * Consultation (Routine) - Closed Specialty Diagnoses / Procedures Referred By Contac t Referred To Contact Infectious Diseases Diagnoses Chronic elbow pain, left Chronic elbow pain, left Masood Barriga MD [facility] [place] [address] [facility] [address] [place] [address] Referral ID Status Reason Start Date Expiration Date V isits Requested Visits Authorized [id number] Closed Consult, Test & Treat 03/27/2022 03/27/2023 1 1 Encounter Details Date Type Department Care Team (Late st Contact Info) Description 03/27/2022 9:00 AM EDT [place] [address] Masood Barriga MD [facility] [place] [address] Social History Tobacco Use Types Packs/Day Years [...] encounter Miscellaneous Notes * Telephone Encounter - Masood Barriga MD - 03/27/2022 11:57 AM EDT Call this patient to discuss the results of her recent aspiration and blood work. Interestingly, the aspiration was only productive of a small amount of fluid which ultimately was culture negative. Her recent CRP value was low, but her sed rate was moderately elevated. 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 If she does, it seems like it must marc low virulence organism which does not cause loosening or systemic symptoms. Removal of her well fixed total elbow would be quite invasive and destructive. I would like to avoid this if possible. Tofurther understand the safety of leaving this implant in, I like to have the patient visit with the infectious disease team to see what their thoughts and recommendations would be for the situation. I will plan to see the patient on the same day for further discussion of treatment from my standpoint as well. documented in this encounter Plan of Treatment Scheduled Referrals Name Type Priority Associated Diagnoses Order Schedule Referral to Infectious Disease and [facility] Outpatient Referral Routine Chronic elbow pain, left Ordered: 03/27/2022 documented as of this encounter Results * [...] who have questions please contact the health career development facilitator that requested your imaging first. ? Narrative 04/27/2022 12:26 PM EDT EXAMINATION: XR [...] patients who have questions please contactthe health career development facilitator that requested your imaging first. Masood Barriga MD IMG DX ORDERABLES documented in this encounter Visit Diagnoses Diagnosis Chronic elbow pain, left Chronic elbow pain, left documented in this encounter Care Teams Variety Performer Relationship Specialty Start Date End Date Curt Cassidy MD [address], [facility] [address] [place] [address] PCP - General 10/10/10 documented as of this encounter
--- OUTSIDE RECORDS SUMMARY | 2024-10-30 01:33 | XMS_ITS | Encounter Summary ---
Author Organization [facility] [place] [address] Care Team Providers Care Smokehouse Operator Name Role Phone Curt Cassidy MD Primary Care Provider [phone] Encounter Details Date Type Department Care Team (Latest Contact Info) Description 10/20/2018 12:31 PM EST - 10/20/2018 11:59 PM EST Hospital [place] [address] Rheumatoid lung disease Discharge Disposition: Home Social History Tobacco Use [...] Sig Dispensed Refills Start Date End Date DILT-XR 240 mg Capsule,Degradable Cnt Release daily. 10/06/2018 OXYGEN-AIR DELIVERY SYSTEMS MISC 2 L by [facility].(Non-Drug; Combo Route) route daily. docusate sodium (COLACE) [...] 11/05/2013 ergocalciferol (VITAMIN D) 50,000 unit capsule 55832 unit, PO, once a month 10/23/2010 budesonide-formoteroL (Symbicort) 160-4.5 mcg/actuation HFA Aerosol Inhaler SYMBICORT 160-4.5 MCG/ACT AERO 04/22/2017 11/05/2022 risedronate (ACTONEL) 35 mg Tablet Take 35 mg by mouth every 7 days. 05/01/2016 12/27/2023 ipratropium-albuterol (DUONEB) 0.5 mg-3 mg(2.5 mg base)/3 mL Solution for Nebulization daily as needed. 09/18/2018 11/05/2022 acyclovir (ZOVIRAX) 800 mg Tablet TAKE 1 TABLET BY MOUTH ONCE DAILY 90 tablet 1 08/28/2018 02/28/2019 leflunomide (ARAVA) 20 mg TabletIndications:Rheu matoid arthritis, involving unspecified site, unspecified rheumatoid factor presence TAKE ONE TABLET BY MOUTH ONCE DAILY 90 tablet 3 08/28/2018 09/07/2019 sulfamethoxazole-trime thoprim (BACTRIM DS) 800-160 mg Tablet Take 1 tablet by mouth 2 times daily. 60 tablet 5 08/19/2018 04/16/2019 fluticasone-salmeterol (ADVAIR HFA) 230-21 mcg/actuation HFA Aerosol InhalerIndications:pre vention of bronchospasm with chronic bronchitis Inhale 2 puffs into the lungs 2 times daily. Indications: PREVENTION OF BRONCHOSPASM WITH CHRONIC BRONCHITIS 3 Inhaler 3 07/07/2018 12/27/2023 ascorbate calcium (VITAMIN C ORAL) Take by mouth daily. alendronate (FOSAMAX) 70 mg Tablet Take 1 tablet by mouth every 7 days. Take in AM with full glass of water, on an empty stomach. Do not lie down for 30 min. 12 tablet 3 09/23/2017 09/11/2019 albuterol 90 mcg/actuation HFA Aerosol InhalerIndications:Chr onic obstructive bronchitis Inhale 2 puffs into the lungs every 4 hours as needed for Wheezing. Use with spacer 1 Inhaler 5 07/08/2017 11/05/2022 polyethylene glycoL (Miralax) 17 gram Powder in Packet Take 17 g by mouth as needed. 11/05/2022 predniSONE (DELTASONE) 5 mg Tablet Take 7.5 mg by mouth daily. 11/05/2022 warfarin (COUMADIN) 5 mg tablet Take 5-7.5 mg by mouth daily. 12/07/2020 cyclobenzaprine (FLEXERIL) 10 mg tablet Take 10 mg by mouth 3 times daily as needed. 11/05/2022 zolpidem (AMBIEN) 10 mg tablet Take 1 tablet by mouth nightly as needed. 11/05/2013 02/25/2023 documented as of this encounter Procedure Notes * Vel Brooks MD - 10/20/2018 2:56 PM ESTAssociated Order(s): PULMONARY FUNCTION TEST Spirometry: FVC is decreased FEV1 is decreased FEV1 / FVC ratio is normal Lung Volumes: Not performed. Diffusion: DLCO is decreased Oxygen Saturation: Oxygen saturation was 98% at rest on 2 LPM. Interpretation: This study is consistent with a restrictive pattern (moderate by FVC). Restrictive lung disease cannot be confirmed without lung volumes. There is a mild reduction in diffusing capacity. Vel Brooks MD, 10/20/2018, 2:56 PM Pulmonary & Critical Care documented in this encounter Plan of Treatment Not on file documented as of this encounter Procedures Procedure Name Priority Date/Time Associated Diagnosis Comments COMMON PULMONARY FUNCTION TEST Routine 10/20/2018 2:56 PM EST Rheumatoid lung disease documented in this encounter Results * Pulmonary Function Testing (10/20/2018 2:56 PM EST) Narrative Vel Brooks MD - 10/20/2018 2:56 PM EST Vel Brooks MD ? 10/20/2018 ??2:56 PM Spirometry: FVC is decreased FEV1 is decreased FEV1 / FVC ratio is normal Lung Volumes: Not performed. Diffusion: DLCO is decreased Oxygen Saturation: Oxygen saturation was 98% at rest on 2 LPM. ?? Interpretation: This study is consistent with a restrictive pattern (moderate by FVC). Restrictive lung disease can not be confirmed without lung volumes. There is a mild reduction in diffusing capacity. Vel Brooks MD, 10/20/2018, 2:56 PM Pulmonary & Critical Care Zaki Bui MD PFT ORDERABLES documented in this encounter Visit Diagnoses Diagnosis Rheumatoid lung disease Rheumatoid lung documented in this encounter Care Teams Smokehouse Operator Relationship Specialty Start Date End Date Curt Cassidy MD [address] [facility], [address] [address] PCP - General 10/10/10 documented as of this encounter
--- OUTSIDE RECORDS SUMMARY | 2024-10-30 01:33 | XMS_ITS | Encounter Summary ---
Author Organization [facility] [place] [address] Care Team Providers Care Customer Engineer Name Role Phone Curt Cassidy MD Primary Care Provider [phone] Reason for Visit * Reason Onset Date Comments Medication Refill 09/11/2019 Encounter Details Date Type Department Care Team (Late st Contact Info) Description 09/11/2019 [place] [address] Juan A Caceres, RN Social History Tobacco Use Types Packs/Day Years [...] on filedocumented in this encounter Care Teams Customer Engineer Relationship Specialty Start Date End Date Curt Cassidy MD [address] [facility] [address] [place] [address] PCP - General 10/10/10 documented as of this encounter
--- OUTSIDE RECORDS SUMMARY | 2024-10-30 01:33 | XMS_ITS | Encounter Summary ---
Author Organization [facility] Address [facility] [place] [address] Care Team Providers Care Plow Shaker Name Role Phone Curt Cassidy MD Primary Care Provider [phone] Reason for Visit * Reason Comments Follow-up Encounter Details Date Type Department Care Team (Late st Contact Info) Description 11/03/2019 10:30 AM EST Office [place] [address] Zaki Duff MD [facility] [place] [address] Status post left elbow joint replacement; Medication monitoring encounter; Infected elbow Social History Tobacco Use Types Packs/Day Years [...] Sign Reading Time Taken Comments Blood Pressure 132/64 11/03/2019 10:45 AM EST Pulse 108 11/03/2019 10:45 AM EST Temperature 36.6 ??C (97.9 ??F) 11/03/2019 10:[address] Respiratory Rate - - Oxygen Saturation 92% 11/03/2019 10:45 AM EST RA Inhaled Oxygen Concentration - - Weight - - Height - - Body Mass Index - - documented in this encounter Progress Notes * Zaki Duff MD - 11/03/2019 10:30 AM EST Subjective: Patient ID: Marla Denton is a 64 y.o. 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 HPI From prior notes We have been following Ms. Denton last summer. Briefly, she has a history of seronegative arthritis, and underwent left elbow arthroplasty for progressive pain in January at an outside facility. This became complicated by postoperative hematomas requiring multiple repeat debridements, and she was given multiple short courses of antibiotics. Operative cultures from February 2018grew sensitive Enterobacter cloacae, and she was treated with some IV antibiotic followed by cephalexin, followed by ciprofloxacin for 10 days. Her symptoms progressed, however, and she was started on IV ertapenem prior to presenting here for planned wound exploration. She was admitted to [facility] 2017-06/03/2018, during which time she underwent operative debridement with myocutaneous flap placed05/28; there was no noted purulence in the OR, the ulnar and humeral components were found to be well-fixed, and operative cultures were negative. She was initially managed on meropenem, and was changed to suppressive tmp/smx (1 tab BID) on 05/31/2018. It was thought that her initial infection in February had been adequately treated with her long course of IV carbapenems, but as the prostheses remained in place, she would need indefinite antibiotic suppression. She is on oral TMP/SMX 1 double strength twice daily, indefinitely given her retained hardware. She is doing very well on her Bactrim, denies any problems. No nausea vomiting or diarrhea, no skinrash. She gets her labs regularly with her primary care provider. She is not interested in stoppingthe Bactrim given her concerns for recurrence of this infection and the high morbidity associated with it. Past Medical History: Past Medical History: Diagnosis Date ??? Allergic state ??? Arthritis ??? Chronic obstructive bronchitis ??? Elbow wound, left, initial encounter 04/28/2018 ??? Hypertension ??? Sjogren's syndrome ??? Thyroid disease Past Surgical History: Procedure Laterality Date ??? CERVICAL FUSION ??? HAND TENDON SURGERY ??? HYSTERECTOMY, TOTAL ABDOMINAL ??? PRO EXPLORE/DRAIN ELBOW FOR INFECT Left 05/28/2018 ARTHROTOMY, ELBOW, EXPLORATION, DRAINAGE, OR REMOVAL FB (WRVU 6.08) performed by Lorie Fuller MD at [facility] MAIN OR ??? PRO MUSCLE-SKIN FLAP, ARM Left 05/28/2018 FLAP, MYOCUTANEOUS OR FASCIOCUTANEOUS, UPPER EXTREMITY (WRVU 17.04) performed by Rupert Masters MD at [facility] MAIN OR ??? PRO REVISE ULNAR NERVE AT ELBOW Left 05/28/2018 NEUROPLASTY &/OR TRANSPOSITION, ULNAR NERVE AT ELBOW (WRVU 7.26) performed by Lorie Fuller MD at [facility] MAIN OR ? ? PRO SPLIT GRFT TRUNK, ARM, LEG <100SQCM N/A 05/28/2018 SPLIT THICK SKIN GRAFT,100 SQ CM OR LESS, ARMS (WRVU 9.9) performed by Rupert Masters MD at [facility] MAIN OR ??? PRO TOTAL KNEE ARTHROPLASTY 11/02/2013 @TOTAL KNEE ARTHROPLASTY performed by Mayco Montanez Jr., MD at [facility] MAIN OR ??? SHOULDER SURGERY ??? TOTAL ELBOW ARTHROPLASTY Left 01/2018 Medications: Current Outpatient Medications on File Prior to Visit Medication Sig Dispense Refill ??? bumetanide (BUMEX) 0.5 mg Tablet TAKE 1 TABLET BY MOUTH ONCE DAILY (FOR SALT AND WATER RETENTION) 11 ??? losartan (COZAAR) 100 mg Tablet Take 100 mg by mouth daily. ??? levothyroxine (SYNTHROID) 150 mcg Tablet TAKE 1 TABLET BY MOUTH ONCE DAILY FOR THYROID REPLACEMENT 5 ??? Lactobacillus acidophilus (PROBIOTIC ORAL) Take by mouth daily. ??? docosahexanoic acid/epa (FISH OIL ORAL) Take by mouth 2 times daily. ??? acyclovir (ZOVIRAX) 800 mg Tablet Take 1 tablet by mouth daily. 90 tablet 1 ??? alendronate (FOSAMAX) 70 mg Tablet Take 1 tablet by mouth every 7 days. Take in AM with full glass of water, on an empty stomach. Do not lie down for 30 min. 12 tablet 3 ??? leflunomide (ARAVA) 20 mg Tablet Take 1 tablet by mouth daily. 90 tablet 3 ??? sulfamethoxazole-trimethoprim (BACTRIM DS) 800-160 mg Tablet Take 1 tablet by mouth 2 times daily. 60 tablet 5 ??? ipratropium-albuterol (DUONEB) 0.5 mg-3 mg(2.5 mg base)/3 mL Solution for Nebulization daily asneeded. ??? OXYGEN-AIR DELIVERY SYSTEMS MISC 2 L by [facility]Non-Drug; Combo Route) route daily. ??? docusate sodium (COLACE) 100 mg Capsule Take 100 mg by mouth daily. ??? senna (SENOKOT) 8.6 mg Tablet Take by mouth daily. ??? albuterol 90 mcg/actuation HFA Aerosol Inhaler Inhale 2 puffs into the lungs every 4 hours as needed for Wheezing. Use with spacer 1 Inhaler 5 ??? predniSONE (DELTASONE) 5 mg Tablet Take 7.5 mg by mouth daily. ??? Carboxymethylcellulose Sodium 0.25 % Dropperette Place 1 drop into both eyes 6 times daily. ??? methadone (DOLOPHINE) 10 mg Tablet 15 MG in the AM, 10 MG at NOON, 20 MG in the PM. ??? warfarin (COUMADIN) 5 mg tablet Take 5-7.5 mg by mouth daily. ??? doxepin (SINEQUAN) 50 mg capsule Take 1 capsule by mouth daily. (Patient taking differently: Take 50-100 mg by mouth nightly. ) ??? gabapentin (NEURONTIN) 300 mg capsule Take 2 capsules by mouth 2 times daily. Take at 0900 and 1400 daily. (Patient taking differently: Take 600 mg by mouth 3 times daily.) ??? zolpidem (AMBIEN) 10 mg tablet Take 1 tablet by mouth nightly as needed. ??? diphenhydrAMINE (BENADRYL) 25 mg capsule Take 1 capsule by mouth every 6 hours as needed for Itching (Patient requests to take this the same time as the Methadone). ??? ergocalciferol (VITAMIN D) 50,000 unit capsule 80989 unit, PO, once a month (Patient taking differently: 100,000 units PO twice a week) ??? DILT-XR 240 mg Capsule,Degradable Cnt Release daily. ??? fluticasone-salmeterol (ADVAIR HFA) 230-21 mcg/actuation HFA Aerosol Inhaler Inhale 2 puffs into the lungs 2 times daily. Indications: PREVENTION OF BRONCHOSPASM WITH CHRONIC BRONCHITIS (Patient not taking: Reported on 11/03/2019) 3 Inhaler 3 ??? ascorbate calcium (VITAMIN C ORAL) Take by mouth daily. ??? atorvastatin (LIPITOR) 20 mg Tablet Take 20 mg by mouth daily. ??? budesonide-formoterol (SYMBICORT) 160-4.5 mcg/actuation HFA Aerosol Inhaler Inhale 1 puff into the lungs 2 times daily. (Patient not taking: Reported on 10/20/2018) 1 Inhaler 12 ??? polyethylene glycol (MIRALAX) 17 gram Powder in Packet Take 17 g by mouth as needed. ??? levothyroxine (SYNTHROID) 125 mcg Tablet Take 125 mcg by mouth daily. ??? cyclobenzaprine (FLEXERIL) 10 mg tablet Take 10 mg by mouth 3 times daily as needed. No current facility-administered medications on file prior to visit. Allergies: Allergies Allergen Reactions ??? Furosemide Palpitations Pt states when taken with Lisinopril adverse reactions she does not want to take ??? Infliximab Anaphylaxis and Other (See Comments) throat swelling,chest heaviness ??? Iodinated Contrast Media Anaphylaxis ??? Iodine And Iodide Containing Products Anaphylaxis ??? Lisinopril Palpitations ??? Vancomycin Anaphylaxis ??? Wellbutrin [Bupropion Hcl] Other (See Comments) Causes retless leg syndrome ??? Ms Contin [Morphine] ??? Sulfa (Sulfonamide Antibiotics) Tolerates Bactrim ??? Sulfisoxazole ??? Sulfisoxazole Acetyl Unknown Review of Systems Constitutional: Negative for chills, diaphoresis and fever. HENT: Negative. Eyes: Negative for photophobia and visual disturbance. Cardiovascular: Negative for chest pain and palpitations. Gastrointestinal: Negative for abdominal pain, blood in stool, diarrhea, nausea and vomiting. Genitourinary: Negative. Musculoskeletal: Chronic musculoskeletal issues related to RA Neurological: Negative for headaches. There were no vitals filed for this visit. Objective: Physical Exam Constitutional: She is oriented to person, place, and time. She appears well- developed and well-nourished. HENT: Mouth/Throat: Oropharynx is clear and moist. Cardiovascular: Normal rate and regular rhythm. Pulmonary/Chest: Effort normal and breath sounds normal. No stridor. No respiratory distress. Abdominal: Soft. Bowel sounds are normal. Musculoskeletal: Chronic deformity in the hands from RA. Left elbow with well-healed flap, no evidence of wound dehiscence, erythema, induration, or fluctuance. Nontender to palpation. Neurological: She is alert and oriented to person, place, and time. Skin: Skin is warm and dry. No rash noted. Laboratory: None new Assessment and Plan: 63/F with seronegative arthritis, s/p left elbow arthroplasty done at outside facility for progressive pain January 2018, complicated by postoperative infected hematomas requiring multiple operative debridements along with multiple courses of IV and oral antibiotics. In this setting, operative cultures from February 2018 grew sensitive Enterobacter cloacae. She was ultimately referred here and underwent wound exploration while on IV ertapenem managed at the outside facility, and operative cultures remained negative. Given her retained hardware, after an initial course of IV antibiotics long-term suppression with indefinite TMP/SMX 1DS BID was recommended. Plan -Continue TMP/SMX 1 DS twice daily, indefinitely -She will call ID clinic with any new side effects or ADRs prior to changing her dose - further care may be assumed by her primary care physician, including labs every few months. documented in this encounter Plan of Treatment Not on file documented as of this encounter Visit Diagnoses Diagnosis Status post left elbow joint replacement Medication monitoring encounter Encounter for therapeutic drug monitoring Infected elbow Unspecified local infection of skin and subcutaneous tissue documented in this encounter Care Teams Plow Shaker Relationship Specialty Start Date End Date Curt Cassidy MD [address] [facility] [address] [address] PCP - General 10/10/10 documented as of this encounter
--- OUTSIDE RECORDS SUMMARY | 2024-10-30 01:33 | XMS_ITS | Encounter Summary ---
Author Organization [facility] Address [facility] [place] [address] Care Team Providers Care Water Reclamation Systems Operator Name Role Phone Curt Cassidy MD Primary Care Provider [phone] Reason for Referral * Consultation (Urgent) - Closed Specialty Diagnoses / Procedures Referred By Contac t Referred To Contact Hematology and Oncology Diagnoses Anemia, unspecified type Masood Barriga MD [facility] [place] [address] [facility] [address] [place] [address] Referral ID Status Reason Start Date Expiration Date V isits Requested Visits Authorized [id number] Closed Consult, Test & Treat 11/20/2021 11/20/2022 1 1 Reason for Visit * Reason Comments Follow-up NXR chronic elbow infection/drainage Encounter Details Date Type Department Care Team (Late st Contact Info) Description 11/20/2021 1:30 PM EST Office Visit [place] [address] Masood Barriga MD [facility] [place] [address] Elbow joint replacement status, left; Anemia, unspecified type Social History Tobacco Use Types Packs/Day Years [...] Sign Reading Time Taken Comments Blood Pressure 136/54 11/20/2021 1:05 PM EST Pulse - - Temperature - - Respiratory Rate - - Oxygen Saturation - - Inhaled Oxygen Concentration - - Weight 78 kg (172 lb) 11/20/2021 1:05 PM EST Height 149.9 cm (4' 11) 11/20/2021 1:05 PM EST Body Mass Index 34.74 11/20/2021 1:05 PM EST documented in this encounter Progress Notes * Parul Kelley RN - 11/20/2021 1:30 PM EST Images from the original note were not included. Pre Op Nursing Assessment and Teaching Written material given - elbow hand out Patient educated on importance of staying healthy and maintaining skin integrity, especially of affected arm pre-op. Patient will inform us of any skin rashes, breaks in skin or illnesses prior to surgery. Discussed practicing ADL???s with non-operative arm. Discussed no ASA or NSAIDS 7 days prior to surgery. May take Tylenol if needed. General post op guidelines discussed including hydration, nutrition, constipation, dressing changes, ice. A review of typically prescribed post op pain medication and suggestions for taking and tapering them in a methodical fashion was undertaken. Is pt currently on chronic narcotics? Yes For the operative problem? No Call out to pcp's office Curt Cassidy at [phone] to update that ortho would prescribe for no more than 2 weeks after surgery. If there are concerns with this plan, requested a call back to review Soap instructions given Questions solicited and answered. Pt knows to call with any additional questions or concerns, Patient advised to read post-op instructions from day of surgery for specific recommendations aftersurgery. * Masood Barriga MD - 11/20/2021 1:30 PM EST Orthopaedic Surgery Clinic Note Chief Complaint: Left Elbow Pain History of Present Illness: Marla Denton is a 66 y.o. Right hand dominant female who presents with Left elbow pain. The patient has a very complex history related to her left total elbow. She does have a history of rheumatoid arthritis and underwent a left total elbow arthroplasty in 2018 at [facility] with Dr. Mcgill. She remained on [...] this infection. She was doing okay until this past September when she started to note a pustule over the incision of her leftelbow. This is grown in size and spontaneously drained pus on multiple occasions. She does feel shehas had increasing pain within the elbow itself. She is not had any fevers, chills, other issues. She was previously seen by one of our physician assistants and referred for a fluoroscopic aspiration. Unfortunately were not able to get any fluid or even a lavage from the elbow. 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 Social History: Right-handed Objective: GENERAL: Well appearing, appropriate SKIN: No significant abrasions or lesions about the elbow. NEUROVASCULAR: Sensation intact to light touch in the Left upper extremity. Warm and well perfused hand. MUSCULOSKELETAL: Left Elbow Examination Visible abnormality: Yes, Pustule over incision line of the lateral left elbow. Clinical picture from previous note consistent with current appearance. Tenderness to palpation: No Palpable crepitus: No Range of motion- Left Extension: 30 Flexion: 100 Supination: 20 Pronation: 80 No purulence expressible today. No palpable collection. No overlying erythema or induration. Strength Testing: Deferred Hand Testing: Finger Flexion: 5/5 strength Finger Extension: 5/5 strength Finger Spread: 5/5 strength Sensation intact to light touch in the median, radial nerves. No sensation to light touch in the fifth finger. Positive Wartenberg's sign. Positive Froment's sign. Palpable radial pulse. Imaging: We independently reviewed the patient's imaging in the office today. X- ray imaging demonstrates prior total elbow arthroplasty and vascular clips consistent with flap coverage. There is someincreased angulation of the joint consistent with bushing wear. Possible loosening of the ulnar component. Humeral component appears well fixed. No other visible abnormality. Assessment/Plan: 66 y.o. 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 Although the radiology team was unable to get an aspiration to confirm this, herdraining sinus directly over her incision makes this very likely. I discussed with her that this nichole chronic infection would be difficult to eradicate without removal of the prosthesis. We did discuss that we could attempt debridement with implant retention, but this would likely fail. We also discussed that we do not have to intervene, but there is a risk that she could become systemically sickor that her infection could spread to her other prosthetic joints including her knees or contralateral shoulder. She was very adamant that she would like to move forward with a two- stage procedure togive her the best chance of infection eradication. Surgery for her would be prosthesis removal and antibiotic spacer followed by later total elbow arthroplasty. If there is not evidence of a sinus tract in the joint, we would simply move forward with local debridement abscess excision. We would do t hese procedures in conjunction with plastic surgery so that we could be sure to preserve the prior flaps. The implants appear well fixed, we may need to complete a humeral and/or ulnar osteotomy to get them removed. We did discuss that the infection may very well return and that she would end up with a resected elbow in the long run. We also discussed the very real possibility of nerve injury dueto the significant scar tissue from prior surgeries that she has already had. She was in agreement with this plan and understands the risks and benefits. Additional risks including pain, bleeding, infection, neurovascular injury, recurrent infection, treatment failure, cardiopulmonary complications, anesthesia complications, and even among others were discussed. She signed consent in the office today. She will be scheduled in the near future. Masood Barriga MD, MS Shoulder and Elbow Surgeon Department of Orthopaedic Surgery [facility] This note was created with the assistance of voice dictation software. Please excuse any related errors. documented in this encounter Plan of Treatment Scheduled Orders Name Type Priority Associated Diagnoses Orde r Schedule XR Elbow 3 Views Left (GENERIC) Imaging Routine Elbow joint replacement status, left Expected: 11/20/2021 (Approximate), Expires: 05/22/2022 Scheduled Referrals Name Type Priority Associated Diagnoses Orde r Schedule Referral to Hematology and Oncology Outpatient Referral Routine Anemia, unspecified type Ordered: 11/20/2021 documented as of this encounter Procedures Procedure Name Priority Date/Time Associated Diagnosis Comments HEMOGRAM Routine 11/20/2021 3:16 PM EST Elbow joint replacement status, left DIFFERENTIAL, AUTOMATED Routine 11/20/2021 3:16 PM EST Elbow joint replacement status, left HC VENIPUNCTURE Routine 11/20/2021 3:16 PM EST Elbow joint replacement status, left documented in this encounter Results * Differential, Automated (11/20/2021 3:16 PM EST) Neutrophil % 54.7 % [facility] Neutrophil Absolute 2.50 1.70 - 6.10 x10(3)/[facility] Lymph % 28.3 % [facility] Lymphocytes Abs 1.3 0.9 - 3.2 x10(3)/[facility] Monocyte % 14.3 % [facility] Monocyte Abs 0.6 0.3 - 0.9 x10(3)/[facility] Eos % 1.8 % [facility] Eosinophils Abs 0.1 0.0 - 0.4 x10(3)/[facility] Basophil % 0.7 % [facility] Baso Absolute 0.0 0.0 - 0.1 x10(3)/[facility] Immature Gran % 0.20 % [facility] Comment: Immature granulocytes(IG's)percentage and absolute count will include metamyelocytes, myelocytes, and promyelocytes. Blood smears from CBCs yielding IG's will be scanned manually for concordance. If this scan disagrees with the automated IG or if promyelocytes are noted, a manual differential will be performed. Immature Gran Absolute 0.01 0.00 - 0.04 x10(3)/[facility] Blood 11/20/2021 3:16 PM EST 11/20/2021 3:20 PM EST Narrative Resulting Agency Comment Spec In Lab Masood Barriga MD HEMATOLOGY ORDERABLE S [facility] [place] [address] * (ABNORMAL) Hemogram (11/20/2021 3:16 PM EST) White Blood Cell 4.6 4.0 - 9.5 x10(3)/[facility] Red Blood Cell 3.56(L) 4.00 - 5.21 x10(6)/[facility] Hemoglobin 11.2(L) 11.7 - 15.5 g/dL [facility] Hematocrit 34.6(L) 35.7 - 45.8 % [facility] Mean Cell Volume 97.2(H) 82.6 - 94.4 [facility] Mean Cell Hemoglobin 31.5 27.1 - 32.0 pg [facility] Mean Cell Hemoglobin Concentration 32.4 31.7 - 35.0 g/dL [facility] Platelet 241 145 - 357 x10(3)/[facility] RDW Standard Deviation 47.0(H) 37.0 - 46.0 [facility] RDW coefficient of variation 13.1 11.5 - 14.1 % [facility] Mean Platelet Volume 9.2 7.6 - 12.9 [facility] NRBC% auto 0.0 % [facility] NRBC Absolute 0.000 0.000 - 0.000 x10(3)/[facility] Blood 11/20/2021 3:16 PM EST 11/20/2021 3:20 PM EST Narrative Resulting Agency Comment Spec In Lab Masood Barriga MD HEMATOLOGY ORDERABLE S [facility] [place] [place] [address] documented in this encounter Visit Diagnoses Diagnosis Elbow joint replacement status, left Anemia, unspecified type documented in this encounter Care Teams Water Reclamation Systems Operator Relationship Specialty Start Date End Date Curt Cassidy MD [address], [facility] [address] [place] [address] PCP - General 10/10/10 documented as of this encounter
--- OUTSIDE RECORDS SUMMARY | 2024-10-30 01:33 | XMS_ITS | Encounter Summary ---
Author Organization [facility] Address [facility] [place] [address] [place] [address] Care Team Providers Care Lathe Winder Name Role Phone Curt Cassidy MD Primary Care Provider [phone] Encounter Details Date Type Department Care Team (Latest Contact Info) Description 03/07/2022 2:30 PM EDT - 03/07/2022 11:59 PM EDT Hospital Encounter XRay at [address] [place] [address] Masood Barriga MD [facility] [place] [address] Elbow joint replacement status, left Discharge Disposition: [...] on file documented as of this encounter Discharge Instructions * Patient Instructions* Gerry Rucker - 03/07/2022 3:00 PM EDT Post Aspiration Patient Instructions You underwent an aspiration by Rd Perea/ Kourtney Cruz MD in the diagnostic section of radiology. Procedure: Left elbow aspiration In the days following the aspiration: Low intensity movement and exercise of the affected joint. Avoid movements that worsen pain. During the first 48 hours following the aspiration you may experience mild discomfort at the injection site. If you experience pain or discomfort in the affected area, do the following: Apply cold compress to the affected area. If allowed by your physician, take an anti-inflammatory medication such as ibuprofen (example: Advil), Acetaminophen (example: Tylenol) or Aspirin. IMPORTANT The risk of infection exists whenever the skin is punctured. The risk can be minimized by keeping the aspiration site clean. However, be aware of the following signs of an infection: Redness and swelling at the injection site. Increased pain. Fever and/or chills. Decreased range of motion in the joint near the injection site. If you experience any of the signs of infection listed above, telephone the diagnostic section of radiology at [phone]. documented in this encounter Medications at Time of Discharge Medication Sig Dispensed Refills Start Date End Date Eliquis 5 mg Tablet Take 5 mg by mouth 2 times daily. 11/14/2021 Restasis 0.05 % Dropperette 11/14/2021 EPINEPHrine 0.15 mg/0.15 mL Auto-Injector EPINEPHRINE 0.15 MG/0.15ML SOAJ 01/16/2021 naloxone (Narcan) 4 mg/actuation [place], Non-Aerosol NARCAN 4 MG/0.1ML LIQD 02/02/2019 multivitamin [...] OXYGEN-AIR DELIVERY SYSTEMS MISC 2 L by [facility].(Non-Drug; Combo Route) route [...] 11/05/2013 ergocalciferol (VITAMIN D) 50,000 unit capsule 42435 unit, PO, once a month 10/23/2010 budesonide-formoteroL [...] Procedure Name Priority Date/Time Associated Diagnosis Comments ANAEROBIC CULTURE Routine 03/07/2022 3:3 0 PM EDT Elbow joint replacement status, left XR JOINT ASPIRATION - MEDIUM JOINT LEFT Routine 03/07/2022 3:22 PM EDT Elbow joint replacement status, left HC JOINT CULTURE Routine 03/07/2022 3:12 PM EDT Elbow joint replacement status, left JOINT CULTURE Routine 03/07/2022 3:12 PM EDT Elbow joint replacement status, left documented in this encounter Results * Anaerobic Culture (03/07/2022 3:30 PM EDT) Anaerobic Culture No anaerobic organisms isolated [facility] Joint Fluid LEFT ELBOW REGION STRUCTURE / Unknown 03/07/2022 3:30 PM EDT 03/07/2022 4:14 PM EDT Comment:Please hold culture for 14 days Narrative Resulting Agency Comment Spec In Lab Masood Barriga MD MICROBIOLOGY - GENER AL ORDERABLES [facility] [place] [address] * XR Fluoro Guided Joint Aspiration Medium Left (03/07/2022 3:22 PM EDT) Anatomical Region Laterality Modality Left Radio Fluoroscop y Impressions 03/07/2022 3:57 PM EDT Technically successful left elbow joint aspiration. Resident: Rosetta Cruz M.D. Service Provider: Rosetta Cruz MD I,Paige Perea PA-C, supervised the resident during the entire procedure. No attending radiologist was present. Attending of Record: Dr. Rosetta Banks MD Preliminary report signed by: ANGELICA White at 03/07/2022 3:30 PM I have personally reviewed the image(s) and the provider's interpretation and agree with the findings, Rosetta Banks MD at 03/07/2022 3:57 PM Thank you for letting us participate in the care of this patient. ??If you are a health care provider and have any questions regarding this report, please contact the number below. ??For patients who have questions please contact the health lawn care professional that requested your imaging first. ? Narrative 03/07/2022 3:57 PM EDT LEFT ELBOW JOINT ASPIRATION UNDER FLUOROSCOPY CLINICAL HISTORY: left elbow pain (as entered by ordering provider in the order requisition) TECHNIQUE: After an extensive conversation with the patient regarding risks and benefits, oral and written consent were obtained. A pre- procedural time-out was performed as per [facility] protocol. The patient was placed prone with the left elbow and shoulder flexed to 90 degrees with the forearm supinated on the fluoroscopic table. ??The skin over the lateral left elbow joint was prepped and draped in the usual aseptic manner. 1% Lidocaine was used to achieve local anesthesia. Under fluoroscopic guidance, 20-gauge 3 1/2 inch spinal needle was advanced into the joint space. ??Small amount of air was injected to document needle placement. ??Scant amount of cloudy serosanguineous synovial fluid returned. All needles removed at end of procedure. The puncture site was covered with a dry sterile dressing. FINDINGS: 1. ??Small amount of injected air in the left elbow joint space. Needle tip projects over the expected location of the elbow arthroplasty hardware. Small amount of gas outlines the elbow joint space. Multiple surgical clips are seen in the soft tissues around the elbow. 2. Scant amount of cloudy serosanguineous synovial fluid aspirated, sent for culture, sensitivity, and Gram stain. MEDICATIONS: Lidocaine 1% - <5 ml, for subcutaneous anesthesia Fluoroscopy time: 0.07 sec COMPLICATIONS: None immediate. POST-PROCEDURE CARE: Instructions on monitor of infection, management of post procedure pain were reviewed with patient. Procedure Note Rosetta Banks MD - 03/07/2022 LEFT ELBOW JOINT ASPIRATION UNDER FLUOROSCOPY CLINICAL HISTORY: left elbow pain (as entered by ordering provider in theorder requisition) TECHNIQUE: After an extensive conversation with the patient regarding risks andbenefits, oral and written consent were obtained. A pre- procedural time-out wasperformed as per [facility] protocol. The patient was placed prone with the left elbow and shoulder flexed to90 degrees with the forearm supinated on the fluoroscopic table. The skinover the lateral left elbow joint was prepped and draped in the usual asepticmanner. 1% Lidocaine was used to achieve local anesthesia. Under fluoroscopicguidance, 20-gauge 3 1/2 inch spinal needle was advanced into the joint space.Small amount of air was injected to document needle placement. Scant amount ofcloudy serosanguineous synovial fluid returned. All needles removed at end of procedure. The puncture site was covered with a dry sterile dressing. FINDINGS: 1. Small amount of injected air in the left elbow joint space. Needletip projects over the expected location of the elbow arthroplasty hardware.Small amount of gas outlines the elbow joint space. Multiple surgical clips areseen in the soft tissues around the elbow. 2. Scant amount of cloudy serosanguineous synovial fluid aspirated, sentfor culture, sensitivity, and Gram stain. MEDICATIONS: Lidocaine 1% - <5 ml, for subcutaneous anesthesia Fluoroscopy time: 0.07 sec COMPLICATIONS: None immediate. POST-PROCEDURE CARE: Instructions on monitor of infection, management ofpost procedure pain were reviewed with patient. IMPRESSION Technically successful left elbow joint aspiration. Resident: Rosetta Cruz M.D. Service Provider: Rosetta Cruz MD I,Paige Perea PA-C, supervised the resident during the entire procedure.No attending radiologist was present. Attending of Record: Dr. Rosetta Banks MD Preliminary report signed by: ANGELICA White at 03/07/2022 3:30 PM I have personally reviewed the image(s) and the provider's interpretationand agree with the findings, Rosetta Banks MD at 03/07/2022 3:57 PM Thank you for letting us participate in the care of this patient. If youare a health care provider and have any questions regarding this report,please contact the number below. For patients who have questions please contactthe health lawn care professional that requested your imaging first. Masood Barriga MD IMG FLUORO ORDERABLE S * Joint Culture (03/07/2022 3:12 PM EDT) Joint Culture No growth at 14 days. [facility] Gram Stain Cytocentrifuge Gram Stain performed No Neutrophils seen. No microorganisms seen. [facility] Joint Fluid LEFT ELBOW REGION STRUCTURE / Unknown 03/07/2022 3:12 PM EDT 03/07/2022 4:14 PM EDT Comment:Please hold culture for 14 days Narrative Resulting Agency Comment Spec In Lab Masood Barriga MD MICROBIOLOGY - GENER AL ORDERABLES [facility] [address] [place] [id number] documented in this encounter Visit Diagnoses Diagnosis Elbow joint replacement status, left documented in this encounter Care Teams Lathe Winder Relationship Specialty Start Date End Date Curt Cassidy MD [address], [place] [address] [place] [address] PCP - General 10/10/10 documented as of this encounter
--- OUTSIDE RECORDS SUMMARY | 2024-10-30 01:33 | XMS_ITS | Encounter Summary ---
Author Organization [facility] [place] [address] Care Team Providers Care Referral Management Liaison Name Role Phone Curt Cassidy MD Primary Care Provider [phone] Reason for Visit * Reason Onset Date Comments Results 01/22/2019 [email or web address] @ [facility] Encounter Details Date Type Department Care Team (Late st Contact Info) Description 01/22/2019 Telephone Cardiology at [address] [address] Se Brambila Jr., MD [address] [place] [id number] Results (gifty @ [facility]) Social History Tobacco Use Types Packs/Day Years [...] encounter Miscellaneous Notes * Telephone Encounter - Se Brambila Jr., MD - 01/26/2019 8:12 AM EDT holter- NSR throughout, average heart rate over 100 during waking hours Rare APC and VPC, 1 3 beat SVT No arrhythmia or ST change with patient symptoms of chest pain, dyspnea or palpitations documented in this encounter Plan of Treatment Not on file documented as of this encounter Visit Diagnoses Not on filedocumented in this encounter Care Teams Referral Management Liaison Relationship Specialty Start Date End Date Curt Cassidy MD [address], [address] [address] PCP - General 10/10/10 documented as of this encounter
--- OUTSIDE RECORDS SUMMARY | 2024-10-30 01:33 | XMS_ITS | Encounter Summary ---
Author Organization [facility] Address [facility] [place] [address] Care Team Providers Care Enterprise Resource Planning Consultant Name Role Phone Curt Cassidy MD Primary Care Provider [phone] Encounter Details Date Type Department Care Team (Late st Contact Info) Description 12/18/2021 Telephone [place] [phone] Masood Barriga MD [facility] DR [place] [address] Social History Tobacco Use Types Packs/Day Years [...] Telephone Encounter - Masood Barriga MD - 12/18/2021 12:25 PM EST I was informed by the OR schedulers that the patient has chosen to cancel her surgery. I called herto discuss this decision. She reports that her elbow is feeling much better. It is no longer draining. She feels like she is not having significant pain at this point. She is nervous about cesia Covid in the hospital. With all this in mind, she was to give it a few months to see how it is doing. I discussed with her that it is still very likely that she has a periprosthetic infection withinthe elbow. This is not something that will resolve on its own. She does have multiple total joint replacements throughout her body, and we discussed that there is a risk that infection could spread from her elbow to these other joints as well. She reports that she is willing to take this risk. She will be in contact with us if she develops increasing symptoms or any other systemic signs of infection. I will see her back in clinic in approximately 2 months for repeat clinical valuation. documented in this encounter Plan of Treatment Not on file documented as of this encounter Visit Diagnoses Not on filedocumented in this encounter Care Teams Enterprise Resource Planning Consultant Relationship Specialty Start Date End Date Curt Cassidy MD [address] [facility], [address] [address] PCP - General 10/10/10 documented as of this encounter
--- OUTSIDE RECORDS SUMMARY | 2024-10-30 01:33 | XMS_ITS | Encounter Summary ---
Author Organization [facility] Address [facility] [place] [address] Care Team Providers Care Security Associate Name Role Phone Curt Cassidy MD Primary Care Provider [phone] Encounter Details Date Type Department Care Team (Latest Contact Info) Description 01/23/2021 11:00 AM EST TH Visit (TeleHealth) [place] [phone] Rafael Sidhu MD [facility] [place] [address] S/P left elbow I&D, radial forearm flap (plastics) for dehiscence over TEA 05/28/18 Dr. Fuller; Rheumatoid lung disease; Rheumatoid arthritis, involving unspecified [...] as of this encounter Progress Notes * Rafael Sidhu MD - 01/23/2021 11:00 AM EST Marla Denton is a 65-year-old female seen in 29 month follow up for severe complicated RF+ RAand recurrent thromboembolism/DVT that is essentially resistant to all known interventions and was being maintained on Leflunomide and Prednisone. Typically getting labs through Dr. Cassidy at [place]. She was last seen in late 2018. Prior rheumatic disease treatment include every DMARD available. Her more recent treatments includerituximab in 2011. In January 2013, she had a very complicated admission for what sounds like pyomyositis/cellulitis of left lower extremity with MRSA that eventually resolved. She had failed TNF antagonists in the past. She stopped her Arava after that time and has only been taking prednisone 10 mg/d and was flaring at that time. We decided to start her on Tofacitinib 5 mg bid along with doxycycline 100 mg day for recurrent LE cellulitis. Her CRP was 9 at that time. Tofacitinib caused nausea so Actemra was attempted beginning .. At last visit in January not doing well, so that increase to8 mg/kg was recommended and she was then transitioned to weekly injectable Actemra. Lots of shortness of breath with 6.14.16 PFTS showing Spirometry reveals severe airflow obstruction with concomitant reduction in forced vital capacity. ??Lung volumes demonstrate reduced total lung capacity and elevated residual volume. ??Diffusing capacity is mildly reduced. ??This constellation of findings suggests a restrictive ventilatory defect with superimposed airflow obstruction. ??Oxygen saturation is normal at rest, and there is borderline oxygen desaturation with ambulation.CT chest same day: 1. Slightly improved inflation but some residual atelectasis. Line no significant degree of fibrosis, no PE. 2. Stable 7 mm right lower lobe nodule. Consider follow-up low-dose non-contrast chest CTlimited to between the nando and diaphragm in one year. Her follow-up has been infrequent having been seen in 2017 and 2018. When last seen, her biggest issue involved an infected left elbow prosthesis. Enterobacter was treated with extensive therapy and has been transitioned to Bactrim suppression from 2018 until the present. ?? Interval History: She comes in today in 3+ year follow up: It has been eventful includin. Septic s/p L elbow arthroplasty with chronic antibody suppression on Bactrim tolerated doing well. 2. Thrombophilia recently transitioned (November 2020) from longstanding warfarin therapy to apixaban the reason for the switch was not clear. She likes the reduction in blood draws 3. April 2020 question small subarachnoid hemorrhage associated with the fall resolved spontaneously.. Today, she reports the elbow feels 'pretty good' She has decided she does not want any more joint operations at the current time. RA seems stable with pain and swelling in feet and hands have developed progressive ulnar deformity. 1-2 hours of stiffness and pain. Using less methadone only at night. Still on leflunomide and Prednisone tapered back down to 7.5 mg.d. Breathing okay at rest,desaturates with any activity and at night Had dobutamine stress test today and PFTs [address] Cassidy, labs today, seems stable does not want change Problem List: 1. RF+ (CIS result) rheumatoid arthritis, erosive/destructive. 1. Failed multiple TNF antagonists (Enbrel, Remicade Orencia, Kineret, Rituxan, Xeljanz). 2. Rituxan - last infusion December 2011, with 2 infusions in 2010 (Complicated by severe headache without dyspnea or hives) 3. Chronic shoulder and neck pain - stable dose methadone following shoulder replacement surgery. 4. CSA, CellCept, Imuran, CTLA4-Ig have been considered, given lymphocytic infiltrates on tenosynovial biopsies (per Dr. Sidhu's note). 5. Current treatment - Arava 20 mg po daily, prednisone 7.5 mg po daily 6. Chest pain complicated 2.12 RTX infusion 7. Hx C1-2 fusion distant past 8. Intolerant of Tofacitinib in May-June 2013 due to nausea 9. TCZ (Actemra) started .2013, no response to 4 mg/kg x 3 doses, transitioned to sub cutaneous weekly in .2014 2. RLE edema 10. Extensive/NEGATIVE workup (02/2007) in association with venous stasis changes 11. Failed to respond to trials of enoxaparin, gabapentin, high dose steroids 12. (12/2007) - Bilateral pulmonary emboli (CT scan) 13. Coumadin therapy - ongoing. 14. Positive bone scan, negative MRI 15. Spontaneous remission until recurrence in 2011, although chronic basal edema has persisted tillthen. 16. Shoulder replacement right (persistent pain) 3. Recurrent cellulitis - LE 17. Followed by [facility] - Mike sierra weekly, in 2009. Much less at f/u in 8.10. Left 5th big toe infection, not clearly osteomyelitic vs cellulitis with RA. 4. DXA ([place] 2004: -1.3 SD low at spine; 1 SD at hip) 5. Persistent right knee popliteal cysts with pain 18. ACL ganglion cyst, considering arthroscopy with Dr. Montanez. 6. Surgeries: S/P C-1/2 surgery; S/P left extensor tendon rupture and repair. 4) S/P left trigger thumb; S/P right total shoulder replacement with chronic persistent pain requiring narcotics; S/P APARNA/BSO . Right knee meniscal cyst - arthroscopy 04/25/01 showing lateral and medial meniscal tears Impression: Persistent active RA who has failed every agent but with numerous comorbitidies maintained on prednisone/Arava with the added complication of chronic left prosthetic elbow infection seemingly stable now with need for lifelong Bactrim. She seems like she is in a good place right now. Sheis happy with the level of function and pain control. It is clear that things are not optimal, but I doubt they are optimizable. For the last 3 years she has been basically been followed by Dr. Cassidy and given my upcoming alf, she wonders if she could be followed by her PCP for twice a yearlabs. I think that this is reasonable and that rheumatology at [facility] could be used in case of an acute flare that was not remediable by a short course of prednisone or Medrol Dosepak. I will make sure that Dr. Cassidy is on board with this strategy as well. Plan: 1. Recommend twice annual labs to monitor liver function and blood counts that can be done through her PCP. 2. The patient and I will confirm with her PCP that he can follow her labs twice annually and use [facility] if symptoms worsen in any significant manner. Level 5 F/u visit 30 minutes of chart review +20 minutes with the patient. Rafael Sidhu M.D. Staff Peanut Separator documented in this encounter Plan of Treatment Not on file documented as of this encounter Visit Diagnoses Diagnosis S/P left elbow I&D, radial forearm flap (plastics) for dehiscence over TEA 05/28/18 Dr. Fuller Rheumatoid lung disease Rheumatoid lung Rheumatoid arthritis, involving unspecified site, unspecified whether rheumatoid factor present documented in this encounter Care Teams Security Associate Relationship Specialty Start Date End Date Curt Cassidy MD [address], [address] [place] [address] PCP - General 10/10/10 documented as of this encounter
--- OUTSIDE RECORDS SUMMARY | 2024-10-30 01:33 | XMS_ITS | Encounter Summary ---
Author Organization [facility] [place] [address] Care Team Providers Care Cargo Bracer Name Role Phone Curt Cassidy MD Primary Care Provider Reason for Visit * Reason Onset Date Comments Medication Refill 09/07/2019 Encounter Details Date Type Department Care Team (Late st Contact Info) Description 09/07/2019 Refill [place] [address] Sarah Hill RN Rheumatoid arthritis, involving unspecified site, unspecified rheumatoid factor presence Social History Tobacco Use Types Packs/Day [...] Diagnosis Rheumatoid arthritis, involving unspecified site, unspecified rheumatoid factor presence documented in this encounter Care Teams Cargo Bracer Relationship Specialty Start Date End Date Curt Cassidy MD [address] [facility] [address] [place] [address] PCP - General 10/10/10 documented as of this encounter
--- OUTSIDE RECORDS SUMMARY | 2024-10-30 01:33 | XMS_ITS | Encounter Summary ---
Author Organization [facility] Address [facility] [place] [address] [place] [address] Care Team Providers Care Computer Operations Analyst Name Role Phone Curt Cassidy MD Primary Care Provider Encounter Details Date Type Department Care Team (Late st Contact Info) Description 05/17/2020 [place] [address] Dionne Ayala MD [facility] [place] [address] Social History Tobacco Use Types Packs/Day Years [...] encounter Miscellaneous Notes * Telephone Encounter - Dionne Ayala MD - 05/17/2020 3:07 PM EDT NEUROSURGERY TELEPHONE NOTE - Consultation Patient Name: Marla Denton Patient Age: 64 y.o. : 1955 Date: 05/17/2020 Outside Facility: [facility] Patient status, level of care: ED Calling Provider: ANGELICA West Please note: The information in this note was directly obtained via the calling provider. Received a call from the [facility] on 05/17/2020 concerning Marla eDnton, a 64 y.o. female with concerns for possible small tSAH. This is a 64 year old female who fell off of her toilet oneweek ago and hit her head. She was evaluated at that time and sent home. She re-presented to the EDtoday because her knee hurts. A CTH was performed given her history and revealed a small L frontal tSAH. She is anticoagulated on Warfarin for unknown reasons. Per the calling provider, she is a poorhistorian. No history of Afib or a stroke. No recurrent falls. She is neuro intact with a headache.I recommended the patient have a repeat CTH in 2 weeks and that she hold her anticoagulation until then. We will see her in clinic at that time. Patient contact information: [phone] Dionne Ayala MD 05/17/2020 NSGY pager: [phone] Personal pager: [phone] documented in this encounter Plan of Treatment Not on file documented as of this encounter Visit Diagnoses Not on filedocumented in this encounter Care Teams Computer Operations Analyst Relationship Specialty Start Date End Date Curt Cassidy MD [address] [facility], [place] [address] PCP - General 10/10/10 documented as of this encounter
--- OUTSIDE RECORDS SUMMARY | 2024-10-30 01:33 | XMS_ITS | Encounter Summary ---
Author Organization [facility] [place] [address] Care Team Providers Care Tomato Grader Name Role Phone Curt Cassidy MD Primary Care Provider [phone] Reason for Visit * Reason Onset Date Comments Medication Refill 04/16/2019 Medication Refill 05/22/2019 Encounter Details Date Type Department Care Team (Late st Contact Info) Description 04/16/2019 [place] [address] Lucie Quiñones, RN Social History Tobacco Use Types Packs/Day [...] on filedocumented in this encounter Care Teams Tomato Grader Relationship Specialty Start Date End Date Curt Cassidy MD [address] [facility], [facility] 3 [place], [place] [id number] PCP - General 10/10/10 documented as of this encounter
--- OUTSIDE RECORDS SUMMARY | 2024-10-30 01:33 | XMS_ITS | Encounter Summary ---
Author Organization [facility] Address [facility] [place] [address] Care Team Providers Care Retail Consultant Name Role Phone Curt Cassidy MD Primary Care Provider [phone] Reason for Referral * Diagnostic Test (Routine) - Closed Specialty Diagnoses / Procedures Referred By Contac t Referred To Contact Radiology Diagnoses Subarachnoid hemorrhage Procedures CT Head wo Contrast (Generic) Dionne Ayala MD [facility] [place] [address] [facility] [place] [address] Referral ID Status Reason Start Date Expiration Date V isits Requested Visits Authorized [id number] Closed Specialty Service Requested 05/23/2020 11/19/2020 1 1 Reason for Visit * Diagnostic Test (Routine) - Closed Specialty Diagnoses / Procedures Referred By Contac t Referred To Contact Radiology Diagnoses Subarachnoid hemorrhage Procedures CT Head wo Contrast (Generic) Dionne Ayala MD [facility] [place] [address] [facility] [place] [address] Referral ID Status Reason Start Date Expiration Date V isits Requested Visits Authorized [id number] Closed Specialty Service Requested 05/23/2020 11/19/2020 1 1 Encounter Details Date Type Department Care Team (Latest Contact Info) Description 06/01/2020 7:32 AM EDT - 06/01/2020 11:59 PM EDT Hospital Encounter CT Scan [place] [facility] [place] [id number] Efrem Medina MD [facility] [place] [address] Subarachnoid hemorrhage Discharge Disposition: Home Social History Tobacco Use [...] Sig Dispensed Refills Start Date End Date naloxone (Narcan) 4 mg/actuation [place], Non-Aerosol NARCAN 4 MG/0.1ML LIQD 02/02/2019 multivitamin Capsule MULTIVITAMINS CAPS 12/10/2019 bumetanide (BUMEX) 0.5 mg Tablet TAKE 1 [...] OXYGEN-AIR DELIVERY SYSTEMS MISC 2 L by [facility].(Non-Drug; Combo Route) route daily. docusate sodium (COLACE) [...] 11/05/2013 ergocalciferol (VITAMIN D) 50,000 unit capsule [id number] unit, PO, once a month 10/23/2010 budesonide-formoteroL (Symbicort) 160-4.5 mcg/actuation HFA Aerosol Inhaler SYMBICORT 160-4.5 MCG/ACT AERO 04/22/2017 11/05/2022 risedronate (ACTONEL) 35 mg Tablet Take 35 mg by mouth every 7 days. 05/01/2016 12/27/2023 Saccharomyces boulardii (FLORASTOR) 250 mg Capsule Every 12 hours. 12/19/2018 11/05/2022 acyclovir (Zovirax) 800 mg Tablet TAKE ONE TABLET BY MOUTH EVERY DAY 90 tablet 1 02/18/2020 08/16/2020 levothyroxine (SYNTHROID) 150 mcg Tablet 125 mcg. 5 06/24/2019 12/27/2023 alendronate (FOSAMAX) 70 mg Tablet Take 1 tablet by mouth every 7 days. Take in AM with full glass of water, on an empty stomach. Do not lie down for 30 min. 12 tablet 3 09/12/2019 07/25/2020 leflunomide (ARAVA) 20 mg TabletIndications:Rhe umatoid arthritis, involving unspecified site, unspecified rheumatoid factor presence Take 1 tablet by mouth daily. 90 tablet 3 09/07/2019 08/16/2020 ipratropium-albuterol (DUONEB) 0.5 mg-3 mg(2.5 mg base)/3 [...] Procedure Name Priority Date/Time Associated Diagnosis Comments CT HEAD WO CONTRAST (GENERIC) Routine 06/01/2020 7:53 AM EDT Subarachnoid hemorrhage documented in this encounter Results * CT Head wo Contrast (Generic) (06/01/2020 7:53 AM EDT) Anatomical Region Laterality Modality Head Computed Tomogra phy Impressions 06/01/2020 9:12 AM EDT 1. No evidence of intracranial hemorrhage. 2. Probable meningioma along the right frontal calvarium. This may be better assessed with MR if clinically indicated. Thank you for letting us participate in the care of this patient. For questions regarding this report, please contact the number below. ? Electronically signed by: Sebastian Wheeler [facility] ([phone]), at 06/01/2020 9:12 AM Narrative 06/01/2020 9:12 AM EDT EXAMINATION: CT HEAD WO CONTRAST (GENERIC) CLINICAL HISTORY: Subarachnoid hemorrhage, follow-up TECHNIQUE: CT head performed without intravenous contrast administration. COMPARISON: 05/17/2020, 08/28/2017 FINDINGS: The ventricles are normal in size and contour. There is no intracranial hemorrhage or extra-axial collection. No intracranial mass effect, or shift. Hypodense extra-axial density The anterior table of the right frontal calvarium probably represents partially calcified meningioma without substantial mass effect on the brain parenchyma. Cerebral parenchyma is normal in attenuation. There is no calvarial fracture. Procedure Note Sebastian Wheeler MD - 06/01/2020 EXAMINATION: CT HEAD WO CONTRAST (GENERIC) CLINICAL HISTORY: Subarachnoid hemorrhage, follow-up TECHNIQUE: CT head performed without intravenous contrast administration. COMPARISON: 05/17/2020, 08/28/2017 FINDINGS: The ventricles are normal in size and contour. There is no intracranial hemorrhage or extra-axial collection. No intracranial mass effect, orshift. Hypodense extra-axial density The anterior table of the right frontal calvarium probably representspartially calcified meningioma without substantial mass effect on the brainparenchyma. Cerebral parenchyma is normal in attenuation. There is no calvarialfracture. IMPRESSION 1. No evidence of intracranial hemorrhage. 2. Probable meningioma along the right frontal calvarium. This may bebetter assessed with MR if clinically indicated. Thank you for letting us participate in the care of this patient. Forquestions regarding this report, please contact the number below. Electronically signed by: Sebastian Wheeler [facility]([phone]), at 06/01/2020 9:12 AM Efrem Medina MD IMG CT ORDERABLES documented in this encounter Visit Diagnoses Diagnosis Subarachnoid hemorrhage documented in this encounter Care Teams Retail Consultant Relationship Specialty Start Date End Date Curt Cassidy MD 79 [facility] 3 [place] [address] PCP - General 10/10/10 documented as of this encounter
--- OUTSIDE RECORDS SUMMARY | 2024-10-30 01:33 | XMS_ITS | Encounter Summary ---
Author Organization [facility] Address [facility] [place] [place] [address] Care Team Providers Care Cyber Defense Analyst Name Role Phone Curt Cassidy MD Primary Care Provider [phone] Encounter Details Date Type Department Care Team (Latest Contact Info) Description 09/15/2021 12:26 PM EDT - 09/15/2021 11:59 PM EDT Hospital Encounter XRay at [address] [place] [address] Lorie Fuller MD [facility] [place] [address] MRSA (methicillin resistant Staphylococcus aureus) infection; Elbow joint replacement status, left Dr. Mcgill January 2018 Discharge Disposition: Home Social History Tobacco Use [...] this encounter Discharge Instructions * Patient Instructions* Lyubov Estrada - 09/15/2021 1:16 PM EDT Post Injection Patient Instructions You received an injection by DR. KUNZ in the diagnostic section of radiology. Procedure: RIGHT ELBOW ASPIRATION In the days following the injection: ??? Low intensity movement and exercise of the affected joint. ??? Avoid movements that worsen pain. During the first 48 hours following the injection you may experience mild discomfort at the injection site. If you experience pain or discomfort in the affected area, do the following: ??? Apply cold compress to the affected area. ??? If allowed by your physician, take an anti-inflammatory medication such as ibuprofen (example: Advil), Acetaminophen 9example: Tylenol) or Aspirin. IMPORTANT The risk of infection exists whenever the skin is punctured. The risk can be minimized by keeping the injection site clean. However, be aware of the following signs of an infection: ??? Redness and swelling at the injection site. ??? Increased pain. ??? Fever and/or chills. ??? Decreased range of motion in the joint near the injection site. If you experience any of the signs of infection listed above, telephone the diagnostic section of radiology at [phone]. documented in this encounter Medications at Time of Discharge Medication Sig Dispensed Refills Start Date End Date EPINEPHrine 0.15 mg/0.15 mL Auto-Injector EPINEPHRINE 0.15 MG/0.15ML SOAJ 01/16/2021 naloxone (Narcan) 4 mg/actuation [place], Non-Aerosol NARCAN 4 MG/0.1ML LIQD 02/02/2019 multivitamin Capsule MULTIVITAMINS CAPS 12/10/2019 famotidine (Pepcid) 40 mg Tablet 08/18/2021 bumetanide (BUMEX) 0.5 mg Tablet TAKE 1 TABLET BY MOUTH ONCE DAILY (FOR SALT AND WATER RETENTION) 07/31/2019 losartan (COZAAR) 100 mg Tablet Take [...] 11/05/2013 ergocalciferol (VITAMIN D) 50,000 unit capsule 38451 unit, PO, once a month 10/23/2010 budesonide-formoteroL (Symbicort) 160-4.5 mcg/actuation HFA Aerosol Inhaler SYMBICORT 160-4.5 MCG/ACT AERO 04/22/2017 11/05/2022 pantoprazole EC (Protonix) 40 mg Tablet, [...] Name Priority Date/Time Associated Diagnosis Comments XR JOINT ASPIRATION - MEDIUM JOINT LEFT Routine 09/15/2021 1:16 PM EDT MRSA (methicillin resistant Staphylococcus aureus) infection Elbow joint replacement status, left Dr. Mcgill January 2018 documented in this encounter Results * XR Fluoro Guided Joint Aspiration Medium Left (09/15/2021 1:16 PM EDT) Anatomical Region Laterality Modality Left Radio Fluoroscop y Impressions 09/15/2021 2:28 PM EDT Uneventful fluoroscopic guided left elbow aspiration without return of fluid. No sample for lab analysis. Resident/Fellow: None Attending: Taty Kunz MD, [facility] Musculoskeletal Radiology I, Dr. Taty Kunz, personally performed the entire interventional procedure. Thank you for letting us participate in the care of this patient. ??If you are a health care provider and have any questions regarding this report, please contact the number below. ??For patients who have questions please contact the health career services coordinator that requested your imaging first. ? Electronically signed by: Taty Kunz MD, [facility] ([phone]), at 09/15/2021 2:28 PM Narrative 09/15/2021 2:28 PM EDT FLUOROSCOPIC GUIDED ASPIRATION OF LEFT ELBOW HISTORY: ??left elbow TEA chronic infection TECHNIQUE: After an extensive conversation with the patient regarding risks and benefits, oral and written consent were obtained.? A pre-procedural time-out was performed, including review of the patient's relevant electronic medical record and allergies, as per [facility] protocol. The patient was positioned right lateral decubitus on the fluoroscopic table. The left shoulder and elbow were flexed to 90 degrees and supported. The lateral left elbow was prepped and draped in the usual aseptic manner. Special care was taken with 2 chlorhexidine preps and sterile drape coverage to avoid the posterolateral elbow skin abscess. The wound is not draining at the time of procedure. A small amount of 1% lidocaine was used to achieve local anesthesia. ??Under fluoroscopic guidance, a 3.5 18-gauge needle was advanced into the joint space. No spontaneous return of fluid. After confirmation of intra-articular location of needle tip using air contrast, a 25g venting needle was inserted into the joint, and 5 mL of sterile saline was instilled. No return of fluid. Approximately 5 mL iodinated contrast, was instilled to further document intra-articular needle tip position. All needles removed at end of procedure. FINDINGS: 1. Total elbow arthroplasty and resection of radial head. Lucency around the humeral component is partially evaluated. Surgical clips in the posterior soft tissues. 2. Air and iodinated contrast distributed normally in left elbow joint space. 3. No return of fluid. MEDICATIONS: Lidocaine 1% - 5 ml, for subcutaneous anesthesia FLUORO TIME: 0.12 minutes COMPLICATIONS: ??None immediate. POST-PROCEDURE CARE: Instructions regarding monitor of infection and management of post-procedural pain were reviewed with the patient. Procedure Note Taty Kunz MD - 09/15/2021 FLUOROSCOPIC GUIDED ASPIRATION OF LEFT ELBOW HISTORY: left elbow TEA chronic infection TECHNIQUE: After an extensive conversation with the patient regarding risks andbenefits, oral and written consent were obtained.? A pre-procedural time-out was performed, including review of the patient's relevant electronic medicalrecord and allergies, as per [facility] protocol. The patient was positioned right lateral decubitus on the fluoroscopictable. The left shoulder and elbow were flexed to 90 degrees and supported. Thelateral left elbow was prepped and draped in the usual aseptic manner. Specialcare was taken with 2 chlorhexidine preps and sterile drape coverage to avoid the posterolateral elbow skin abscess. The wound is not draining at the timeof procedure. A small amount of 1% lidocaine was used to achieve local anesthesia.Under fluoroscopic guidance, a 3.5 18-gauge needle was advanced into the jointspace. No spontaneous return of fluid. After confirmation of intra-articularlocation of needle tip using air contrast, a 25g venting needle was inserted intothe joint, and 5 mL of sterile saline was instilled. No return of fluid. Approximately 5 mL iodinated contrast, was instilled to further document intra-articular needle tip position. All needles removed at end ofprocedure. FINDINGS: 1. Total elbow arthroplasty and resection of radial head. Lucency aroundthe humeral component is partially evaluated. Surgical clips in the posteriorsoft tissues. 2. Air and iodinated contrast distributed normally in left elbow jointspace. 3. No return of fluid. MEDICATIONS: Lidocaine 1% - 5 ml, for subcutaneous anesthesia FLUORO TIME: 0.12 minutes COMPLICATIONS: None immediate. POST-PROCEDURE CARE: Instructions regarding monitor of infection andmanagement of post-procedural pain were reviewed with the patient. IMPRESSION Uneventful fluoroscopic guided left elbow aspiration without return of fluid. No sample for lab analysis. Resident/Fellow: None Attending: Taty Kunz MD, [facility] Musculoskeletal Radiology I, Dr. Taty Kunz, personally performed the entire interventional procedure. Thank you for letting us participate in the care of this patient. If youare a health care provider and have any questions regarding this report,please contact the number below. For patients who have questions please contactthe health career services coordinator that requested your imaging first. Lorie Fuller MD IMG FLUORO ORDERABLE S documented in this encounter Visit Diagnoses Diagnosis MRSA (methicillin resistant Staphylococcus aureus) infection Methicillin resistant Staphylococcus aureus in conditions classified elsewhere and of unspecified site Elbow joint replacement status, left Dr. Mcgill January 2018 documented in this encounter Administered Medications Inactive Administered Medications - up to 3 most recent administrations Medication Order MAR Action Action Date Dose Rate Site iohexoL (Omnipaque) (300 mg/mL) injection solution 5 mL 5 mL, Intra-articular, ONCE, 1 dose, On Sat09/15/21 at 1430, Warning Vesicant/Irritant Medication , Routine Given 09/15/2021 2:30 PM EDT 5 mLs lidocaine (Xylocaine) 1% (10 mg/mL) injection 50 mg 50 mg (5 mL), Intra-articular, ONCE, 1 dose, On Sat09/15/21 at 1430, Routine Given 09/15/2021 2:30 PM EDT 50 mg documented in this encounter Care Teams Cyber Defense Analyst Relationship Specialty Start Date End Date Curt Cassidy MD 79 [facility], [address] [address] PCP - General 10/10/10 documented as of this encounter
--- OUTSIDE RECORDS SUMMARY | 2024-10-30 01:33 | XMS_ITS | Encounter Summary ---
Author Organization [facility] Address [facility] [place] [address] Care Team Providers Care Procedures Analyst Name Role Phone Curt Cassidy MD Primary Care Provider [phone] Reason for Visit * Reason Comments Medication Refill Encounter Details Date Type Department Care Team (Late st Contact Info) Description 02/28/2019 [place] [address] Rafael Sidhu MD [facility] [place] [address] Social History Tobacco Use Types Packs/Day Years [...] on filedocumented in this encounter Care Teams Procedures Analyst Relationship Specialty Start Date End Date Curt Cassidy MD [address] [facility] [address] [place] [address] PCP - General 10/10/10 documented as of this encounter
--- OUTSIDE RECORDS SUMMARY | 2024-10-30 01:33 | XMS_ITS | Encounter Summary ---
Author Organization [facility] [place] [address] Care Team Providers Care Fleet Mechanic Name Role Phone Curt Cassidy MD Primary Care Provider [phone] Encounter Details Date Type Department Care Team (Late st Contact Info) Description 04/24/2021 Telephone [place] [phone] Delta Rios Social History Tobacco Use Types Packs/Day Years [...] encounter Miscellaneous Notes * Telephone Encounter - Delta Rios - 04/24/2021 2:45 PM EDT Marla Denton [id number] Diagnosis/Indication: PT needs EGD, gastritis, questen ulcer, GERD, question tao's esophagus. meterman prednisone not on PPI or h2 corby with history of RA. Complicated history. 1. Have you ever had a/an Upper Endoscopy before? No 2. Do you take any blood thinners or have you been diagnosed with a bleeding disorder that increases your risk of bleeding with procedures? Yes: Type: Eliquis 3. Do you have a Pacemaker or Defibrillator device? No 4. Are you a diabetic? No 5. Do you have any Allergies to Eggs, Latex or Medications? Yes: See chart 6. Do you take any Oral Iron Supplements (Including multi-vitamins)? No 7. Do you have a history of three or more abdominal surgeries? No 8. Have you had a problem with sedation or anesthesia? No 9. Do you use a c-pap machine or oxygen tank? Oxygen 10. Do you take prescription narcotic pain medications, including suboxone or methodone? Yes 11. Do you have a preference regarding the gender of your provider? No Preference 12. Is there any other information you would like to us to note for the provider and nursing team who will perform your case? No 13. Say to patient: You must have a responsible libertarian who will drive you to your procedure, stay oncampus for the entire duration of your procedure, and drive you home from your procedure? *Please Verify the height and weight, and adjust if height and/or weight have changed* Estimated body mass index is 37.49 kg/m?? as calculated from the following: Height as of 10/20/18: 149.5 cm (4' 10.86). Weight as of 04/01/19: 83.8 kg (184 lb 11.2 oz). Age:65 y.o. documented in this encounter Plan of Treatment Not on file documented as of this encounter Visit Diagnoses Not on filedocumented in this encounter Care Teams Fleet Mechanic Relationship Specialty Start Date End Date Curt Cassidy MD 79 [facility], [facility] 3 [place] [address] PCP - General 10/10/10 documented as of this encounter
--- OUTSIDE RECORDS SUMMARY | 2024-10-30 01:33 | XMS_ITS | Encounter Summary ---
Author Organization [facility] Address [facility] [place] [address] Care Team Providers Care Bell Valet Name Role Phone Curt Cassidy MD Primary Care Provider [phone] Encounter Details Date Type Department Care Team (Late st Contact Info) Description 12/14/2021 Telephone [place] [phone] Nichol Reynaga Social History Tobacco Use Types Packs/Day Years [...] encounter Miscellaneous Notes * Telephone Encounter - Humberto Reddy RN - 12/14/2021 9:45 AM EST Order placed and faxed. * Telephone Encounter - Nichol Reynaga - 12/14/2021 9:35 AM EST Is this the first test for Covid 19 If no, please list date of previous test, result, and type of test (Molecular, Antigen, Antibody orunknown): Resides in care home, correction or other residential facility No Employee or Household Member of Employee No Healthcare Worker No Telephone call placed/received to schedule Covid 19 testing with patient. Ordering provider: Masood Barriga Testing Facility: [facility] Facility Date of Testin/15 Time of Testing:TBD Symptoms: Pre Op Please send order to listed facility along with demographics. documented in this encounter Plan of Treatment Not on file documented as of this encounter Visit Diagnoses Diagnosis Encounter for preprocedure screening laboratory testing for COVID-19 documented in this encounter Care Teams Bell Valet Relationship Specialty Start Date End Date Curt Cassidy MD [address], [facility] 3 [place] [address] PCP - General 10/10/10 documented as of this encounter
--- OUTSIDE RECORDS SUMMARY | 2024-10-30 01:33 | XMS_ITS | Encounter Summary ---
Author Organization [facility] Address [facility] [place] [address] Care Team Providers Care Admitting Interviewer Name Role Phone Curt Cassidy MD Primary Care Provider [phone] Encounter Details Date Type Department Care Team (Late st Contact Info) Description 05/19/2020 Telephone [place] [phone] Priscilla Garcia Social History Tobacco Use Types Packs/Day Years [...] encounter Miscellaneous Notes * Telephone Encounter - Lali Freeman - 05/19/2020 12:26 PM EDT Date of Call: 05/19/2020 Person Calling: Marla Patient: Marla Denton : 1955 Patient ID : [id number] y.o. female, patient of ER consult Reason for call: Clarification on medication Subjective: Marla calls today wondering if it is OK for her to take Tylenol. She is also wonderingif she could take Aspirin for DVT prophylaxis. Assessment/Plan: I told Marla that she is OK to take Tylenol. Per NSGY recommendation: hold all anticoagulation until her f/u. * Telephone Encounter - Priscilla Garcia - 05/19/2020 12:21 PM EDT Caller: Patient Best time to reach caller: anytime Best number to reach caller: [phone] Reason for call: Patient hoping to speak with a nurse to discuss if she should be taking tylenol until she is scheduled with our office to prevent blood clots as she has a history. Could an order for head CT also be entered per Dr. Ayala's note please? Recent Surgery?: no If before 4:00 pm: Inform caller that the typical expectation for a call back is within 1-2 hours. If after 4:00 pm: Inform caller that if the nurse does not call back by the end of the day, they will be called in the AM of the next business day. documented in this encounter Plan of Treatment Not on file documented as of this encounter Visit Diagnoses Not on filedocumented in this encounter Care Teams Admitting Interviewer Relationship Specialty Start Date End Date Curt Cassidy MD [address] [facility] 3 [place] [address] PCP - General 10/10/10 documented as of this encounter
--- OUTSIDE RECORDS SUMMARY | 2024-10-30 01:33 | XMS_ITS | Encounter Summary ---
Author Organization [facility] Address [facility] [place] [address] Care Team Providers Care J2Ee Architect Name Role Phone Curt Cassidy MD Primary Care Provider [phone] Encounter Details Date Type Department Care Team (Latest Contact Info) Description 09/15/2021 9:22 AM EDT - 09/15/2021 12:25 PM EDT Hospital Encounter XRay at [address] [place] [address] Lorie Fuller MD [facility] [place] [address] MRSA (methicillin resistant Staphylococcus aureus) infection; Elbow [...] MG/0.15ML SOAJ 01/16/2021 naloxone (Narcan) 4 mg/actuation [place], Non-Aerosol NARCAN 4 MG/0.1ML LIQD 02/02/2019 multivitamin [...] OXYGEN-AIR DELIVERY SYSTEMS MISC 2 L by [facility]rug; Combo Route) route daily. docusate sodium (COLACE) [...] 11/05/2013 ergocalciferol (VITAMIN D) 50,000 unit capsule 39185 unit, PO, once a month 10/23/2010 budesonide-formoteroL [...] XR ELBOW 3 VIEWS LEFT (GENERIC) Routine 09/15/2021 9:46 AM EDT MRSA (methicillin resistant Staphylococcus aureus) infection Elbow joint replacement status, left Dr. Mcgill January 2018 documented in this encounter Results * XR Elbow 3 Views Left (GENERIC) (09/15/2021 9:46 AM EDT) Anatomical Region Laterality Modality Elbow Left Digital Radiogra phy Impressions 09/15/2021 10:04 AM EDT Impression: 1. ??LEFT total elbow arthroplasty complicated by increase lucencies around the humeral component at the humeral condyle. Findings represent loosening and/or infection. 2. ??Unchanged overall alignment of hardware. Thank you for letting us participate in the care of this patient. ??If you are a health care provider and have any questions regarding this report, please contact the number below. ??For patients who have questions please contact the health pediatric critical care nurse that requested your imaging first. ? Narrative 09/15/2021 10:04 AM EDT EXAMINATION: XR ELBOW 3 VIEWS LEFT (GENERIC) CLINICAL HISTORY: left elbow TEA, , entered by ordering service TECHNIQUE: LEFT elbow, 3 views COMPARISON: May 15, 2018. FINDINGS: LEFT A total elbow arthroplasty is present. Alignment: The prosthesis is unchanged in alignment. Complication: There is no fracture. Increased lucency at metal bone interface around the humeral condylar component, with maximal measurement of 6 mm. No lucency around the humeral stem. No perihardware lucency around the olecranon component. The radial head resection is redemonstrated. Soft tissues: Interval debridement following the last examination with newly placed surgical ana. Procedure Note Lisa Estrada MD - 09/15/2021 EXAMINATION: XR ELBOW 3 VIEWS LEFT (GENERIC) CLINICAL HISTORY: left elbow TEA, , entered by ordering service TECHNIQUE: LEFT elbow, 3 views COMPARISON: May 15, 2018. FINDINGS: LEFT A total elbow arthroplasty is present. Alignment: The prosthesis is unchanged in alignment. Complication: There is no fracture. Increased lucency at metal boneinterface around the humeral condylar component, with maximal measurement of 6 mm.No lucency around the humeral stem. No perihardware lucency around theolecranon component. The radial head resection is redemonstrated. Soft tissues: Interval debridement following the last examination with newly placedsurgical ana. IMPRESSION Impression: 1. LEFT total elbow arthroplasty complicated by increase lucencies aroundthe humeral component at the humeral condyle. Findings represent looseningand/or infection. 2. Unchanged overall alignment of hardware. Thank you for letting us participate in the care of this patient. If youare a health care provider and have any questions regarding this report,please contact the number below. For patients who have questions please contactthe health pediatric critical care nurse that requested your imaging first. Lorie Fuller MD IMG DX ORDERABLES documented in this encounter Visit Diagnoses Diagnosis MRSA (methicillin resistant Staphylococcus aureus) infection Methicillin resistant Staphylococcus aureus in conditions classified elsewhere and of unspecified site Elbow joint replacement status, left Dr. Mcgill January 2018 documented in this encounter Care Teams J2Ee Architect Relationship Specialty Start Date End Date Curt Cassidy MD [address] [facility], [facility] 3 [place] [id number] PCP - General 10/10/10 documented as of this encounter
--- OUTSIDE RECORDS SUMMARY | 2024-10-30 01:33 | XMS_ITS | Encounter Summary ---
Author Organization [facility] Address [facility] [place] [address] [place] [address] Care Team Providers Care Ceramic Plater Name Role Phone Curt Cassidy MD Primary Care Provider Reason for Visit * Reason Comments Medication Refill Encounter Details Date Type Department Care Team (Late st Contact Info) Description 08/16/2020 [place] [address] [facility] [place] [address] Rheumatoid arthritis, involving unspecified site, unspecified rheumatoid [...] presence documented in this encounter Care Teams Ceramic Plater Relationship Specialty Start Date End Date Curt Cassidy MD [address] [facility], [address] [address] PCP - General 10/10/10 documented as of this encounter
--- OUTSIDE RECORDS SUMMARY | 2024-10-30 01:33 | XMS_ITS | Encounter Summary ---
Author Organization [facility] [place] [address] Care Team Providers Care Physician/Internist Name Role Phone Curt Cassidy MD Primary Care Provider Reason for Visit * Reason Onset Date Comments Medication Refill 04/16/2019 Encounter Details Date Type Department Care Team (Late st Contact Info) Description 04/16/2019 Ref[place] [address] Lucie Quiñones, RN Social History Tobacco Use [...] on filedocumented in this encounter Care Teams Physician/Internist Relationship Specialty Start Date End Date Curt Cassidy MD [address] [facility] , [facility] 3 [place] [address] PCP - General 10/10/10 documented as of this encounter
--- OUTSIDE RECORDS SUMMARY | 2024-10-30 01:33 | XMS_ITS | Encounter Summary ---
Author Organization [facility] [place] [address] Care Team Providers Care Meat Pumper Name Role Phone Curt Cassidy MD Primary Care Provider [phone] Encounter Details Date Type Department Care Team (Latest Contact Info) Description 02/19/2019 10:00 PM EDT - 02/19/2019 11:59 PM EDT [place] [phone] Discharge Disposition: Home Social History Tobacco Use [...] Date End Date naloxone (Narcan) 4 mg/actuation [place], Non-Aerosol NARCAN 4 MG/0.1ML LIQD 02/02/2019 DILT-XR 240 mg Capsule,Degradable Cnt Release daily. [...] 11/05/2013 ergocalciferol (VITAMIN D) 50,000 unit capsule 12711 unit, PO, once a month 10/23/2010 budesonide-formoteroL (Symbicort) 160-4.5 mcg/actuation HFA Aerosol Inhaler SYMBICORT 160-4.5 MCG/ACT AERO 04/22/2017 11/05/2022 risedronate (ACTONEL) 35 mg Tablet Take 35 mg by mouth every 7 days. 05/01/2016 12/27/2023 Saccharomyces boulardii (FLORASTOR) 250 mg Capsule Every 12 hours. 12/19/2018 11/05/2022 ipratropium-albuterol (DUONEB) 0.5 mg-3 mg(2.5 mg base)/3 [...] Procedure Name Priority Date/Time Associated Diagnosis Comments T3, FREE Routine 02/19/2019 10:24 AM EDT documented in this encounter Results * T3, free (02/19/2019 10:24 AM EDT) Free T3 2.2 2.0 - 4.4 pg/mL [facility] Blood specimen (specimen) Venous Draw / Unknown 02/19/2019 10:24 AM EDT 02/19/2019 10:03 PM EDT Narrative Resulting Agency Comment Spec In Lab Curt Cassidy MD CHEMISTRY ORDERABLES [facility] [place] [address] documented in this encounter Visit Diagnoses Not on filedocumented in this encounter Care Teams Meat Pumper Relationship Specialty Start Date End Date Curt Cassidy MD [address], [facility] 3 [place] [address] PCP - General 10/10/10 documented as of this encounter
--- OUTSIDE RECORDS SUMMARY | 2024-10-30 01:33 | XMS_ITS | Encounter Summary ---
Author Organization [facility] Address [facility] [place] [address] Care Team Providers Care Skin Former Name Role Phone Curt Cassidy MD Primary Care Provider [phone] Reason for Visit * Reason Comments Medication Refill Encounter Details Date Type Department Care Team (Late st Contact Info) Description 02/18/2020 [place] [address] Rafael Sidhu MD [facility] [place] [address] Social History Tobacco Use Types Packs/Day Years [...] on filedocumented in this encounter Care Teams Skin Former Relationship Specialty Start Date End Date Curt Cassidy MD [address] [facility], [facility] 3 [place] [address] PCP - General 10/10/10 documented as of this encounter
--- OUTSIDE RECORDS SUMMARY | 2024-10-30 01:33 | XMS_ITS | Encounter Summary ---
Author Organization [facility] Address [facility] [place] [address] Care Team Providers Care Rock Lather Name Role Phone Curt Cassidy MD Primary Care Provider [phone] Encounter Details Date Type Department Care Team (Late st Contact Info) Description 12/14/2020 Telephone H[place]ology [place] [phone] Abbie Cavanaugh RN Social History Tobacco Use Types Packs/Day [...] encounter Miscellaneous Notes * Telephone Encounter - Abbie Cavanaugh RN - 12/14/2020 7:33 AM EST TC to PCP office. Spoke with covering staff regarding Dr. Pal's request below. A copy of this note was faxed to Dr. Lira'ts office; Attn Mary Anne, instructional support technician for Dr. Lamb. Advised to call with any questions. Abbie Cavanaugh RN MSN ===View-only below this line=== ----- Message ----- From: Leandra Pal MD Sent: 12/13/2020 4:49 PM EST To: Abbie Cavanaugh RN Subject: please call pcp's office Abbie; I cannot remember if I tasked you last week or not. Can you call PCP's office and let them know about transition from warfarin to apixaban? I tried today but vignesh to voicemail. Thanks, Leandra PAL'S PLAN/RECOMMENDATIONS 12/07/20 1. Continue long-term anticoagulation - start apixaban 5 mg PO twice daily once INR is 2 or below (script sent into local pharmacy) and continue it terminal operations manager - if she experiences bleeding issues with apixaban 5 mg PO twice daily, consider lowering the dose to 2.5 mg PO twice daily - Will mail in 30 day free coupon to her - if co pay is not affordable, I asked her to call back. She may qualify for assistance program - if she tolerates apixaban well, I will ask Dr. Cassidy to take over future refill for her 2. For future procedures - minor procedure: hold apixaban 2 days before and resume the following day - major procedure: hold apixaban 3 days before and resume 12-24 hours depending on bleeding risk ?? documented in this encounter Plan of Treatment Not on file documented as of this encounter Visit Diagnoses Not on filedocumented in this encounter Care Teams Rock Lather Relationship Specialty Start Date End Date Curt Cassidy MD [address] , [address] [address] PCP - General 10/10/10 documented as of this encounter
--- OUTSIDE RECORDS SUMMARY | 2024-10-30 01:33 | XMS_ITS | Encounter Summary ---
Author Organization [facility] Address [facility] [place] [address] Care Team Providers Care Transplant Case Manager Name Role Phone Curt Cassidy MD Primary Care Provider Encounter Details Date Type Department Care Team (Late st Contact Info) Description 09/08/2021 Telephone [place] [phone] Lorie Fuller MD [facility] [place] [address] Social History Tobacco Use Types Packs/Day Years [...] encounter Miscellaneous Notes * Telephone Encounter - Geovanna Crespo - 09/14/2021 9:33 AM EDT Marla is calling back to see why she would need to stop antibiotics if she is on them for life. She has had them in the past while on antibiotics. We called Radiology. Dr. Kunz in [facility] said this is not necessary when the patient is on the antibiotic for life and she may be scheduled. Call to [place] to attempt to coordinate everything for tomorrow 09/15/21 * Telephone Encounter - Madina Segovia - 09/13/2021 4:55 PM EDT Spoke with Radiology to try and get the aspiration scheduled. They advised that because the patientis currently antibiotics, someone would need to contact the radiologists at [phone] to get this protocolled prior to scheduling. Secondly, speaking with the patient, she is adamant that she doesn't want to come down to the facility on Saturday if nothing can be done for her arm while she is here. She said that her arm has grown significantly and is draining and doesn't want to drive the distance for nothing to be done. Could someone reach out to her to advise of a plan as well? Thank you. * Telephone Encounter - Madina eSgovia - 09/13/2021 4:48 PM EDT Patient is scheduled to see Cynthia Mckeon on Saturday afternoon. Patient states that she IS currently on antibiotics Bactrim and takes it 2 times daily. * Telephone Encounter - Madina Segovia - 09/08/2021 2:17 PM EDT Patients PCP called and stated that he tried to email Dr. Fuller regarding patient and what he believes may be an infected prosthetic joint. I provided the [email or web address] email to send to. If any questions PCP Curt can be paged at [phone] and just put in a call back number and he will call back. documented in this encounter Plan of Treatment Not on file documented as of this encounter Results * XR Fluoro Guided Joint Aspiration Medium Left (09/15/2021 1:16 PM EDT) Anatomical Region Laterality Modality Left Radio Fluoroscop y Impressions 09/15/2021 2:28 PM EDT Uneventful fluoroscopic guided left elbow aspiration without return of fluid. No sample for lab analysis. Resident/Fellow: None Attending: Taty Kunz MD, [facility] Musculoskeletal Radiology I, Dr. Taty Kunz, personally performed the entire interventional procedure. Thank you for letting us participate in the care of this patient. ??If you are a health care provider and have any questions regarding this report, please contact the number below. ??For patients who have questions please contact the health pharmacy customer care specialist that requested your imaging first. ? Narrative 09/15/2021 2:28 PM EDT FLUOROSCOPIC GUIDED ASPIRATION OF LEFT ELBOW HISTORY: ??left elbow TEA chronic infection TECHNIQUE: After an extensive conversation with the patient regarding risks and benefits, oral and written consent were obtained.? A pre-procedural time-out was performed, including review of the patient's relevant electronic medical record and allergies, as per [facility] protocol. The patient was positioned right lateral [...] relevant electronic medicalrecord and allergies, as per [facility] protocol. The patient was positioned right lateral [...] analysis. Resident/Fellow: None Attending: Taty Kunz MD, [facility] Musculoskeletal Radiology I, Dr. Taty Kunz, personally performed the entire interventional procedure. Thank you for letting us participate in the care of this patient. If youare a health care provider and have any questions regarding this report,please contact the number below. For patients who have questions please contactthe health pharmacy customer care specialist that requested your imaging first. Lorie Fuller MD IMG FLUORO ORDERABLE S * Sedimentation rate (09/15/2021 11:40 AM EDT) [facility] Sedimentation Rate Automated 37 2 - 39 mm/hr [facility] Comment: Effective October 28, 2019 new capillary photometric technology has resulted in a change in reference ranges. It is recommended that each ESR result be reviewed with its own age appropriate reference range. Blood 09/15/2021 11:4 0 AM EDT 09/15/2021 11:53 AM EDT Narrative Resulting Agency Comment Spec In Lab Lorie Fuller MD HEMATOLOGY ORDERABLE S Performing Organization Address [facility]/ZIP Co de Phone Number [facility] [place] [address] * (ABNORMAL) CRP, acute inflammation (09/15/2021 11:40 AM EDT) [facility] C-Reactive Protein 14.1(H) <=4.9 mg/L [facility] Blood 09/15/2021 11:4 0 AM EDT 09/15/2021 11:53 AM EDT Narrative Resulting Agency Comment Spec In Lab Lorie Fuller MD CHEMISTRY ORDERABLES Performing Organization Address [facility] Co de Phone Number [facility] [place] [address] * XR Elbow 3 Views Left (GENERIC) [...] who have questions please contact the health pharmacy customer care specialist that requested your imaging first. [...] patients who have questions please contactthe health pharmacy customer care specialist that requested your imaging first. Lorie Fuller MD IMG DX ORDERABLES documented in this encounter Visit Diagnoses Diagnosis MRSA (methicillin resistant Staphylococcus aureus) infection Methicillin resistant Staphylococcus aureus in conditions classified elsewhere and of unspecified site USP (current) use of anticoagulants Long-term (current) use of anticoagulants Elbow joint replacement status, left Dr. Mcgill January 2018 MRSA (methicillin resistant Staphylococcus aureus) infection Methicillin resistant Staphylococcus aureus in conditions classified elsewhere and of unspecified site Elbow joint replacement status, left Dr. Mcgill January 2018 MRSA (methicillin resistant Staphylococcus aureus) infection Methicillin resistant Staphylococcus aureus in conditions classified elsewhere and of unspecified site Elbow joint replacement status, left Dr. Mcgill January 2018 documented in this encounter Care Teams Transplant Case Manager Relationship Specialty Start Date End Date Curt Cassidy MD [address] [facility], [facility] 3 [place] [address] PCP - General 10/10/10 documented as of this encounter
--- OUTSIDE RECORDS SUMMARY | 2024-10-30 01:33 | XMS_ITS | Encounter Summary ---
Author Organization [place] [address] Care Team Providers Care Foil Spinner Name Role Phone Curt Casisdy MD Primary Care Provider [phone] Encounter Details Date Type Department Care Team (Late st Contact Info) Description 04/24/2021 Telephone [place] [phone] Lizeth Dodson RN Social History Tobacco Use Types Packs/Day [...] encounter Miscellaneous Notes * Telephone Encounter - Lizeth Dodson RN - 04/25/2021 10:34 AM EDT Call placed to patient to relay below message from Dr. Mahajan: Actually patient can stay on anticoagulation and do not hold for this EGD, because it looks like there is no need for dilation. Marla verbalizes understanding and states she will relay information to PCP. Message also sent to Dr. Cassidy via electronic fax. * Telephone Encounter - Lizeth Dodson RN - 04/24/2021 5:32 PM EDT Received message from patient's PCP regarding anticoagulation prior to EGD (scheduled in July). Dr. 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 He would feel comfortable if Marla held her Eliquis x 1 day prior to EGD but would not feel comfortable with holding x 5 days. He asks for call back if necessary. Will review with Dr. Mahajan. documented in this encounter Plan of Treatment Not on file documented as of this encounter Visit Diagnoses Not on filedocumented in this encounter Care Teams Foil Spinner Relationship Specialty Start Date End Date Curt Cassidy MD [address], [place] [address] PCP - General 10/10/10 documented as of this encounter
--- OUTSIDE RECORDS SUMMARY | 2024-10-30 01:33 | XMS_ITS | Encounter Summary ---
Author Organization [facility] Address [facility] [place] [address] Care Team Providers Care Cooker Process Cheese Name Role Phone Curt Cassidy MD Primary Care Provider [phone] Reason for Referral * Diagnostic Test (Routine) - Closed Specialty Diagnoses / Procedures Referred By Contac t Referred To Contact Radiology Diagnoses Subarachnoid hemorrhage Procedures CT Head wo Contrast (Generic) Dionne Ayala MD [facility] [place] [address] [facility] [place] [address] Referral ID Status Reason Start Date Expiration Date V isits Requested Visits Authorized [id number] Closed Specialty Service Requested 05/23/2020 11/19/2020 1 1 Encounter Details Date Type Department Care Team (Late st Contact Info) Description 05/23/2020 Orders [place] [address] Dionne Ayala MD [facility] [place] [address] Subarachnoid hemorrhage Social History Tobacco Use Types Packs/Day Years [...] documented as of this encounter Results * CT Head wo [...] below. ? Electronically signed by: Sebastian Wheeler [facility] ([phone]), at 06/01/2020 9:12 AM Narrative 06/01/2020 9:12 [...] this report, please contact the number below. Efrem Medina MD IMG CT ORDERABLES documented in this encounter Visit Diagnoses Diagnosis Subarachnoid hemorrhage Subarachnoid hemorrhage documented in this encounter Care Teams Cooker Process Cheese Relationship Specialty Start Date End Date Curt Cassidy MD [address] [facility], [address] [address] PCP - General 10/10/10 documented as of this encounter
--- OUTSIDE RECORDS SUMMARY | 2024-10-30 01:33 | XMS_ITS | Encounter Summary ---
Author Organization [facility] Address [facility] [place] [address] Care Team Providers Care Corduroy Cutting Supervisor Name Role Phone Curt Cassidy MD Primary Care Provider [phone] Reason for Visit * Reason Comments Advice Only f/u tSAH with CT hea d prior * Consultation (Routine) - Closed Specialty Diagnoses / Procedures Referred By Contjen t Referred To Contact Neurosurgery Diagnoses Possible small tSAH Cristian West PA [address] [place] [address] [place] [address] [facility] [address] [place] [phone] Referral ID Status Reason Start Date Expiration Date V isits Requested Visits Authorized [id number] Closed Consult, Test & Treat 05/19/2020 05/19/2021 1 1 Encounter Details Date Type Department Care Team (Late st Contact Info) Description 06/01/2020 9:00 AM EDT Office [place] [address] Humberto Merritt PA [facility] [place] [address] Traumatic injury of head, initial encounter Social History Tobacco Use Types Packs/Day Years [...] Sign Reading Time Taken Comments Blood Pressure 128/64 06/01/2020 8:15 AM EDT Pulse 100 06/01/2020 8:15 AM EDT Temperature - - Respiratory Rate - - Oxygen Saturation - - Inhaled Oxygen Concentration - - Weight - - Height - - Body Mass Index - - documented in this encounter Progress Notes * Humberto Merritt PA - 06/01/2020 9:00 AM EDT Images from the original note were not included. Section of Neurosurgery Initial Consultation Note 06/01/2020 Cristian West PA [address] [facility] [place] [address] RE: Marla Denton : [address] West: Thank you for referring your patient Marla Denton to the Neurosurgery Clinic at [facility] for evaluation of head injury. As you know, Ms. Denton is a pleasant 64 y.o. female who fell from her toilet and hit her head at home on 05/11. She went to local ED and had a CT scan of the head which was negative. She returned a week later for knee pain and had a repeat head CT which supposedly showed a traumatic subarachnoid hemorrhage in the left frontal region. Neurosurgery was contacted via telephone. 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 She is here now to discuss results of her repeat head CT which she had earlier this morning. In the interim, she notes that she has had some headaches but they have progressively gotten better. PAST MEDICAL HISTORY: Past Medical History: Diagnosis Date ??? Allergic state ??? Arthritis ??? Chronic obstructive bronchitis ??? Elbow wound, left, initial encounter 04/28/2018 ??? Hypertension ??? Sjogren's syndrome ??? Thyroid disease PAST SURGICAL HISTORY: Past Surgical History: Procedure Laterality Date ??? CERVICAL FUSION ??? HAND TENDON SURGERY ??? HYSTERECTOMY, TOTAL ABDOMINAL ??? PRO EXPLORE/DRAIN ELBOW FOR INFECT Left 05/28/2018 ARTHROTOMY, ELBOW, EXPLORATION, DRAINAGE, OR REMOVAL FB (WRVU 6.08) performed by Lorie Fuller MD at [facility] OR ??? PRO MUSCLE-SKIN FLAP, ARM Left 05/28/2018 FLAP, MYOCUTANEOUS OR FASCIOCUTANEOUS, UPPER EXTREMITY (WRVU 17.04) performed by Rupert Masters MD at [facility] OR ??? PRO REVISE ULNAR NERVE AT ELBOW Left 05/28/2018 NEUROPLASTY &/OR TRANSPOSITION, ULNAR NERVE AT ELBOW (WRVU 7.26) performed by Lorie Fuller MD at [facility] OR ? ? PRO SPLIT GRFT TRUNK, ARM, LEG <100SQCM N/A 05/28/2018 SPLIT THICK SKIN GRAFT,100 SQ CM OR LESS, ARMS (WRVU 9.9) performed by Rupert Masters MD at [facility] OR ??? PRO TOTAL KNEE ARTHROPLASTY 11/02/2013 @TOTAL KNEE ARTHROPLASTY performed by Mayco Montanez Jr., MD at [facility] OR ??? SHOULDER SURGERY ??? TOTAL ELBOW ARTHROPLASTY Left 01/2018 SOCIAL HISTORY: Social History Tobacco Use ??? Smoking status: Never Smoker ??? Smokeless tobacco: Never Used Substance Use Topics ??? Alcohol use: No ??? Drug use: No FAMILY HISTORY: Family History Problem Relation Age of Onset [...] Detachment Neg Hx ??? Strabismus Neg Hx CURRENT MEDICATIONS: ??? acyclovir (Zovirax) 800 mg Tablet ??? bumetanide (BUMEX) 0.5 mg Tablet ??? losartan (COZAAR) 100 mg Tablet ??? levothyroxine (SYNTHROID) 150 mcg Tablet ??? Lactobacillus acidophilus (PROBIOTIC ORAL) ??? docosahexanoic acid/epa (FISH OIL ORAL) ??? alendronate (FOSAMAX) 70 mg Tablet ??? leflunomide (ARAVA) 20 mg Tablet ??? sulfamethoxazole-trimethoprim (BACTRIM DS) 800-160 mg Tablet ??? DILT-XR 240 mg Capsule,Degradable Cnt Release ??? ipratropium-albuterol (DUONEB) 0.5 mg-3 mg(2.5 mg base)/3 mL Solution for Nebulization ??? OXYGEN-AIR DELIVERY SYSTEMS MISC ??? fluticasone-salmeterol (ADVAIR HFA) 230-21 mcg/actuation HFA Aerosol Inhaler ??? docusate sodium (COLACE) 100 mg Capsule ??? senna (SENOKOT) 8.6 mg Tablet ??? albuterol 90 mcg/actuation HFA Aerosol Inhaler ??? predniSONE (DELTASONE) 5 mg Tablet ??? Carboxymethylcellulose Sodium 0.25 % Dropperette ??? methadone (DOLOPHINE) 10 mg Tablet ??? doxepin (SINEQUAN) 50 mg capsule ??? gabapentin (NEURONTIN) 300 mg capsule ??? diphenhydrAMINE (BENADRYL) 25 mg capsule ??? ergocalciferol (VITAMIN D) 50,000 unit capsule ??? ascorbate calcium (VITAMIN C ORAL) ??? atorvastatin (LIPITOR) 20 mg Tablet ??? budesonide-formoterol (SYMBICORT) 160-4.5 mcg/actuation HFA Aerosol Inhaler ??? polyethylene glycol (MIRALAX) 17 gram Powder in Packet ??? levothyroxine (SYNTHROID) 125 mcg Tablet ??? warfarin (COUMADIN) 5 mg tablet ??? cyclobenzaprine (FLEXERIL) 10 mg tablet ??? zolpidem (AMBIEN) 10 mg tablet ALLERGIES: Allergies Allergen Reactions ??? Furosemide Palpitations Pt [...] Bactrim ??? Sulfisoxazole ??? Sulfisoxazole Acetyl Unknown REVIEW OF SYSTEMS: Full ROS reviewed. Pertinent findings per HPI. PHYSICAL EXAMINATION: Blood pressure 128/64, pulse 100. Awake, alert, and in no acute distress. Speech: Appropriate and fluent; answers questions appropriately. Cranial Nerves: II-XII grossly intact. Motor: No pronator drift. Moves all extremities well with good strength. Cerebellar: No dysmetria with finger to nose testing bilaterally. Gait: Using wheelchair for appointment. RADIOGRAPHIC STUDIES: CT head wo contrast 05/11, 05/17, 06/01/2020 Images and reports personally reviewed. No intracranial hemorrhage observed across all studies. Incidental right frontal calcified lesion, likely meningioma. IMPRESSION AND PLAN: Ms. Denton is a 64 y.o. female with a supposed left frontal tSAH status post fall No intracranial hemorrhage seen on follow up imaging today. Patient was cleared to resume her Coumadin. No further routine imaging or neurosurgical follow up needed. Patient may be seen on an as needed basis. Based on my findings I suggest the following course of action: 1. May resume OAC 2. Follow up prn It was my pleasure to have seen and examined Ms. Denton. In our visit today, we discussed the patient's current condition, the natural course history without treatment and various interventional options. I will be sure to keep you updated after Ms. Denton returns here for further follow-up. Thank you again for your referral. Please don't hesitate to contact me if you have any further questions. Sincerely, Humberto Merritt PA-C, MS Physician Plaster Block Layer [facility] Department of Neurosurgery [address] [place] [address] CC: Curt Cassidy MD CC: Cristian West PA [address] [place] [address] [place] [address] This message is confidential, intended only for the named recipient(s) and may contain information that is privileged or exempt from disclosure under applicable law. If you are not the intended recipient(s), you are notified that the dissemination, distribution or copying of this information is strictly prohibited. If you received this message in error, please notify the sender then delete this message. documented in this encounter Plan of Treatment Not on file documented as of this encounter Visit Diagnoses Diagnosis Traumatic injury of head, initial encounter documented in this encounter Care Teams Corduroy Cutting Supervisor Relationship Specialty Start Date End Date Curt Cassidy MD [address], [facility] 3 [place] [address] PCP - General 10/10/10 documented as of this encounter
--- OUTSIDE RECORDS SUMMARY | 2024-10-30 01:33 | XMS_ITS | Encounter Summary ---
Author Organization [facility] Address [facility] [place] [address] Care Team Providers Care Natural Gas Shothole Driller Name Role Phone Curt Cassidy MD Primary Care Provider [phone] Encounter Details Date Type Department Care Team (Late st Contact Info) Description 05/11/2020 Ancillary Procedure Radiology Library at [facility] [place] [address] Rich Sullivan MD [facility] [place] [address] Social History Tobacco Use Types Packs/Day Years [...] Associated Diagnosis Comments FILM LIBRARY STORAGE ONLY CT HEAD AND SPINE Routine 05/11/2020 12:00 AM EDT documented in this encounter Results * Film Library- Storage Only CT Head And Spine (05/11/2020 12:00 AM EDT) Narrative BRAN - 05/17/2020 2:37 PM EDT This exam is auto-finalizing. It's purpose is for storage only. Rich Sullivan MD G FILM LIBRARY ORD ERABLES [place], [place] documented in this encounter Visit Diagnoses Not on filedocumented in this encounter Care Teams Natural Gas Shothole Driller Relationship Specialty Start Date End Date Curt Cassidy MD [address], [facility] 3 [place] [address] PCP - General 10/10/10 documented as of this encounter
--- OUTSIDE RECORDS SUMMARY | 2024-10-30 01:33 | XMS_ITS | Encounter Summary ---
Author Organization [facility] Address [facility] [place] [address] Care Team Providers Care Pathology Transcriptionist Name Role Phone Curt Cassidy MD Primary Care Provider Encounter Details Date Type Department Care Team (Latest Contact Info) Description 02/12/2022 12:05 PM EDT - 02/12/2022 11:59 PM EDT Hospital Encounter XRay at [address] [place] [address] Masood Barriga MD [facility] [place] [address] Elbow joint replacement status, left Discharge Disposition: [...] MG/0.15ML SOAJ 01/16/2021 naloxone (Narcan) 4 mg/actuation [place], Non-Aerosol NARCAN 4 MG/0.1ML LIQD 02/02/2019 multivitamin [...] DELIVERY SYSTEMS MISC 2 L by [facility].(Non-Drug; Combo Route) route [...] 11/05/2013 ergocalciferol (VITAMIN D) 50,000 unit capsule [id number] unit, PO, once a month 10/23/2010 budesonide-formoteroL [...] XR ELBOW 3 VIEWS LEFT (GENERIC) Routine 02/12/2022 12:31 PM EDT Elbow joint replacement status, left documented in this encounter Results * XR Elbow 3 Views Left (GENERIC) (02/12/2022 12:31 PM EDT) Anatomical Region Laterality Modality Elbow Left Digital Radiogra phy Impressions 02/12/2022 3:12 PM EDT Unchanged and uncomplicated left total elbow arthroplasty and radial head resection. I have personally reviewed the image(s) and the resident's interpretation and agree with the findings, Taty Kunz MD at 02/12/2022 3:12 PM Thank you for letting us participate in the care of this patient. ??If you are a health care provider and have any questions regarding this report, please contact the number below. ??For patients who have questions please contact the health women's health care nurse practitioner that requested your imaging first. ? Narrative 02/12/2022 3:12 PM EDT EXAMINATION: XR ELBOW 3 VIEWS LEFT (GENERIC) CLINICAL HISTORY: interval change? TECHNIQUE: 3 views LEFT elbow COMPARISON: 09/15/2021 FINDINGS: Status post total elbow arthroplasty and radial head resection. Unchanged 4 mm lucency around the humeral condylar component. No lucency around the humeral and ulnar stems. No periprosthetic fracture. Unchanged alignment. Redemonstration of surgical clips. Unchanged posterior elbow effusion. Procedure Note Taty Kunz MD - 02/12/2022 EXAMINATION: XR ELBOW 3 VIEWS LEFT (GENERIC) CLINICAL HISTORY: interval change? TECHNIQUE: 3 views LEFT elbow COMPARISON: 09/15/2021 FINDINGS: Status post total elbow arthroplasty and radial head resection. Unchanged4 mm lucency around the humeral condylar component. No lucency around thehumeral and ulnar stems. No periprosthetic fracture. Unchanged alignment.Redemonstration of surgical clips. Unchanged posterior elbow effusion. IMPRESSION Unchanged and uncomplicated left total elbow arthroplasty and radialhead resection. I have personally reviewed the image(s) and the resident's interpretationand agree with the findings, Taty Kunz MD at 02/12/2022 3:12 PM Thank you for letting us participate in the care of this patient. If youare a health care provider and have any questions regarding this report,please contact the number below. For patients who have questions please contactthe health women's health care nurse practitioner that requested your imaging first. Masood Barriga MD IMG DX ORDERABLES documented in this encounter Visit Diagnoses Diagnosis Elbow joint replacement status, left documented in this encounter Care Teams Pathology Transcriptionist Relationship Specialty Start Date End Date Curt Cassidy MD [address] [facility], [address] [address] PCP - General 10/10/10 documented as of this encounter
--- OUTSIDE RECORDS SUMMARY | 2024-10-30 01:33 | XMS_ITS | Encounter Summary ---
Author Organization [facility] [place] [address] Care Team Providers Care Commercial Light Fixture Assembler Name Role Phone Curt Cassidy MD Primary Care Provider [phone] Encounter Details Date Type Department Care Team (Late st Contact Info) Description 01/26/2019 Interpretation Only Cardiology at [address] [phone] Se Brambila Jr., MD [address] [place] [id number] Tachycardia Social History Tobacco Use Types Packs/Day Years [...] as of this encounter Visit Diagnoses Diagnosis Tachycardia Tachycardia, unspecified documented in this encounter Care Teams Commercial Light Fixture Assembler Relationship Specialty Start Date End Date Curt Cassidy MD [address] [facility], [address] [id number] PCP - General 10/10/10 documented as of this encounter
--- OUTSIDE RECORDS SUMMARY | 2024-10-30 01:33 | XMS_ITS | Encounter Summary ---
Author Organization [facility] Address [facility] [place] [address] Care Team Providers Care Health Plan Specialist Name Role Phone Curt Cassidy MD Primary Care Provider [phone] Encounter Details Date Type Department Care Team (Late st Contact Info) Description 05/17/2020 2:40 PM EDT Ancillary Procedure Radiology Library at [facility] [place] [phone] Rich Sullivan MD [facility] [place] [address] Social History Tobacco Use Types Packs/Day Years [...] Comments FILM LIBRARY STORAGE ONLY CT HEAD Routine 05/17/2020 2:39 PM EDT documented in this encounter Results * Film Library- Storage Only CT Head (05/17/2020 2:39 PM EDT) Narrative [facility] - 05/17/2020 2:39 PM EDT This exam is auto-finalizing. It's purpose is for storage only. Rich Sullivan MD [facility] FILM LIBRARY ORD ERABLES [place] documented in this encounter Visit Diagnoses Not on filedocumented in this encounter Care Teams Health Plan Specialist Relationship Specialty Start Date End Date Curt Cassidy MD [address], [place] [address] [place] [address] PCP - General 10/10/10 documented as of this encounter
--- OUTSIDE RECORDS SUMMARY | 2024-10-30 01:33 | XMS_ITS | Encounter Summary ---
Author Organization [facility] Address [facility] [place] [address] Care Team Providers Care Guest Relations Associate Name Role Phone Curt Cassidy MD Primary Care Provider [phone] Reason for Visit * Reason Comments Medication Refill Encounter Details Date Type Department Care Team (Late st Contact Info) Description 02/10/2021 [place] [address] Rafael Sidhu MD [facility] [place] [address] Social History Tobacco Use Types Packs/Day Years [...] on filedocumented in this encounter Care Teams Guest Relations Associate Relationship Specialty Start Date End Date Curt Cassidy MD [address] [facility], [facility] 3 [place] [address] PCP - General 10/10/10 documented as of this encounter
--- OUTSIDE RECORDS SUMMARY | 2024-10-30 01:33 | XMS_ITS | Encounter Summary ---
Author Organization [facility] [place] [address] Care Team Providers Care Hook Loader Name Role Phone Curt Cassidy MD Primary Care Provider [phone] Reason for Visit * Reason Comments Follow-up Encounter Details Date Type Department Care Team (Late st Contact Info) Description 03/07/2022 1:00 PM EDT [place] [address] Hieu Magana PA [address] [place] [address] Rheumatoid arthritis, involving unspecified site, unspecified whether rheumatoid factor present (Primary Dx); S/P left elbow I&D, radial forearm flap (plastics) for dehiscence over TEA 05/28/18 Dr. Fuller; Rheumatoid lung disease Social History Tobacco Use Types Packs/Day Years [...] Sign Reading Time Taken Comments Blood Pressure 126/55 03/07/2022 12:50 PM EDT Pulse 86 03/07/2022 12:50 PM EDT Temperature - - Respiratory Rate 18 03/07/2022 12:50 PM EDT Oxygen Saturation 96% 03/07/2022 12:50 PM EDT Inhaled Oxygen Concentration - - Weight 75 kg (165 lb 4.8 oz) 03/07/2022 12:50 PM EDT Height 149.9 cm (4' 11) 03/07/2022 12:50 PM EDT Body Mass Index 33.39 03/07/2022 12:50 PM EDT documented in this encounter Patient Instructions * Patient Instructions* Hieu Magana PA - 03/07/2022 1:34 PM EDT Consider evusheld Continue medications as previous Labs reviewed documented in this encounter Progress Notes * Hieu Magana PA - 03/07/2022 1:00 PM EDTSummary: ra Rheumatology Outpatient Note Chart review conducted prior [...] a 66 y.o. female who presents today for evaluation of RA and RYAN. 01/23/21:Impression: Persistent active RA who has failed every agent but with numerous comorbitidies maintained on prednisone/Arava with the added complication of chronic left prosthetic elbow infection seemingly stable now with need for lifelong Bactrim. She seems like she is in a good place right now. She is happy with the level of function and pain control. It is clear that things are not optimal, but I doubt they are optimizable. For the last 3 years she has been basically been followed by Dr. Cassidy and given my upcoming fpc, she wonders if she could be followed by her PCP for twicea year labs. I think that this is reasonable and that rheumatology at [facility] could be used in case of [...] follow her labs twice annually and use [facility] if symptoms worsen in any significant manner. ?? Interval History: Patient presents today for follow-up of rheumatoid arthritis she continues on leflunomide she is not on prednisone. She has follow-up this afternoon with orthopedics for an elbow aspiration because of her history of left prosthetic elbow infection has been stable for quite some time she continues on prophylactic Bactrim for that. She denies significant changes in her day-to-day arthralgias she has some ongoing pain in her right shoulder, that is replaced. She has neck pain itsbeen present for many years now. She has not been ill she is not losing weight there is been no change in going to the bathroom. Review of Systems Constitutional: Negative for anorexia, diaphoresis and sleep disturbance. Respiratory: Negative for cough, shortness of breath, hemoptysis and orthopnea. Gastrointestinal: Negative for steatorrhea, diarrhea and trouble swallowing. HENT: Negative. Psychiatric/Behavioral: Negative for social aversion. Hematologic/Lymphatic: Negative. Allergic/Immunologic: Negative for recurrent infections and immunocompromised state. Musculoskeletal: Positive for joint pain and stiffness. Negative for myalgias. Endocrine: Negative for polydipsia, polyphagia, polyuria and Cushingoid appearance. Cardiovascular: Negative for syncope. Neurological: Negative for vertigo. Skin: Negative for dry skin, urticaria, blister, [...] to Visit Medication Sig Dispense Refill ??? budesonide-formoteroL (Symbicort) 160-4.5 mcg/actuation HFA Aerosol Inhaler SYMBICORT 160-4.5 MCG/ACT AERO ??? cholecalciferol, Vitamin D3, 1,250 mcg (50,000 unit) Capsule TAKE 1 CAPSULE BY MOUTH ONCE A WEEK ??? pantoprazole EC (Protonix) 40 mg Tablet, Delayed Release (E.C.) BID@ ??? risedronate (ACTONEL) 35 mg Tablet As directed ??? Saccharomyces boulardii (FLORASTOR) 250 mg Capsule Every 12 hours. ??? Eliquis 5 mg Tablet ??? Restasis 0.05 % Dropperette ??? EPINEPHrine 0.15 mg/0.15 mL Auto-Injector EPINEPHRINE 0.15 MG/0.15ML SOAJ ??? naloxone (Narcan) 4 mg/actuation [place], Non-Aerosol NARCAN 4 MG/0.1ML LIQD ??? multivitamin Capsule MULTIVITAMINS CAPS ??? famotidine (Pepcid) 40 mg Tablet ??? acyclovir (Zovirax) 800 mg Tablet TAKE ONE TABLET BY MOUTH EVERY DAY 90 tablet 1 ??? amLODIPine (Norvasc) 2.5 mg Tablet Take 2.5 mg by mouth daily. ??? leflunomide (Arava) 20 mg Tablet TAKE ONE TABLET BY MOUTH DAILY 90 tablet 3 ??? alendronate (Fosamax) 70 mg Tablet TAKE 1 TABLET BY MOUTH EVERY 7 DAYS IN THE MORNING WITH A FULL GLASS OF WATER ON AN EMPTY STOMACH. DO NOT LIE DOWN FOR 30 MINUTES 12 tablet 3 ??? bumetanide (BUMEX) 0.5 mg Tablet TAKE 1 TABLET BY MOUTH ONCE DAILY (FOR SALT AND WATER RETENTION) 11 ??? losartan (COZAAR) 100 mg Tablet Take 150 mg by mouth daily. ??? levothyroxine (SYNTHROID) 150 mcg Tablet 175 mcg. 5 ??? Lactobacillus acidophilus (PROBIOTIC ORAL) Take by mouth daily. ??? docosahexanoic acid/epa (FISH OIL ORAL) Take by mouth 2 times daily. ??? sulfamethoxazole-trimethoprim (BACTRIM DS) 800-160 mg Tablet Take 1 tablet by mouth 2 times daily. 60 tablet 5 ??? DILT-XR 240 mg Capsule,Degradable Cnt Release daily. ??? ipratropium-albuterol (DUONEB) 0.5 mg-3 mg(2.5 mg base)/3 mL Solution for Nebulization daily asneeded. ??? OXYGEN-AIR DELIVERY SYSTEMS MISC 2 L by [facility].(Non-Drug; Combo Route) route daily. ??? fluticasone-salmeterol (ADVAIR HFA) 230-21 mcg/actuation HFA Aerosol Inhaler Inhale 2 puffs into the lungs 2 times daily. Indications: PREVENTION OF BRONCHOSPASM WITH CHRONIC BRONCHITIS (Patient not taking: No sig reported) 3 Inhaler 3 ??? ascorbate calcium (VITAMIN C ORAL) Take by mouth daily. ??? docusate sodium (COLACE) 100 mg Capsule Take 100 mg by mouth daily. ??? senna (SENOKOT) 8.6 mg Tablet Take by mouth daily. ??? atorvastatin (LIPITOR) 20 mg Tablet Take 20 mg by mouth daily. ??? albuterol 90 mcg/actuation HFA Aerosol Inhaler Inhale 2 puffs into the lungs every 4 hours as needed for Wheezing. Use with spacer 1 Inhaler 5 ??? polyethylene glycoL (Miralax) 17 gram Powder in Packet Take 17 g by mouth as needed. ??? predniSONE (DELTASONE) 5 mg Tablet Take 7.5 mg by mouth daily. ??? Carboxymethylcellulose Sodium 0.25 % Dropperette Place 1 drop into both eyes 6 times daily. ??? methadone (DOLOPHINE) 10 mg Tablet 15 MG in the AM, 10 MG at NOON, 20 MG in the PM. ??? cyclobenzaprine (FLEXERIL) 10 mg tablet Take 10 mg by mouth 3 times daily as needed. ??? doxepin (SINEQUAN) 50 mg capsule Take [...] mouth nightly as needed. (Patient not taking: No sig reported) ??? diphenhydrAMINE (BENADRYL) 25 mg capsule Take 1 capsule by mouth every 6 hours as needed for Itching (Patient requests to take this the same time as the Methadone). ??? ergocalciferol (VITAMIN D) 50,000 unit capsule 46642 unit, PO, once a month No current [...] M54.2 ??? Pain in limb M79.609 ??? termite control representative (current) use of anticoagulants Z79.01 ??? Left TKA 11/02 Z96.659 ??? Chronic pain G89.29 ??? Bilateral [...] Anticoagulated on Coumadin Z79.01 ??? Patient is Restoration Z78.9 ? ? S/P left elbow I&D, radial forearm flap (plastics) for dehiscence over TEA 05/28/18 Dr. Alvarado51.002S ??? Tachycardia R00.0 ??? Hyperlipidemia E78.5 ??? termite control representative current use of systemic steroids Z79.52 ??? [...] 6.08) performed by Lorie Fuller MD at [facility] OR ??? PRO MUSCLE-SKIN FLAP, ARM Left 05/28/2018 FLAP, MYOCUTANEOUS OR FASCIOCUTANEOUS, UPPER EXTREMITY (WRVU 17.04) performed by Rupert Masters MD at [facility] OR ??? PRO REVISE ULNAR NERVE AT ELBOW Left 05/28/2018 NEUROPLASTY &/OR TRANSPOSITION, ULNAR NERVE AT ELBOW (WRVU 7.26) performed by Lorie Fuller MD at [facility] OR ? ? PRO SPLIT GRFT TRUNK, ARM, LEG <100SQCM N/A 05/28/2018 SPLIT THICK SKIN GRAFT,100 SQ CM OR LESS, ARMS (WRVU 9.9) performed by Rupert Masters MD at [facility] OR ??? PRO TOTAL KNEE ARTHROPLASTY 11/02/2013 @TOTAL KNEE ARTHROPLASTY performed by Mayco Montanez Jr., MD at [facility] OR ??? SHOULDER SURGERY ??? TOTAL ELBOW ARTHROPLASTY Left 01/2018 ??? XR JOINT ASPIRATION - MEDIUM JOINT LEFT Left 09/15/2021 XR Fluoro Guided Joint Aspiration Medium Left 09/15/2021 Taty Kunz MD [facility] RAD XRAY Physical Examination: BP 126/55 Pulse 86 Resp 18 Ht 149.9 cm (4' 11) Wt 75 kg (165 lb 4.8 oz) SpO2 96% BMI 33.39 kg/m?? Musculoskeletal: Bilateral hands with ulnar deviation and deformities left hand with puffy MCPs left elbow with collection of fluid in the olecranon bursa slightly puffy no significant tenderness otherwise noted on exam, patient is using supplementary oxygen, right shoulder without any significant abduction left shoulder significantly limited to about 45 degrees abduction. Patient ambulates with the use of a cane and is careful. Physical Exam Constitutional: General: She is not in acute distress. Appearance: She is normal weight. She is not ill-appearing, toxic-appearing or diaphoretic. HENT: Head: Normocephalic and atraumatic. Right Ear: External ear normal. Left Ear: External ear normal. Nose: Nose normal. Eyes: Conjunctiva/sclera: Conjunctivae normal. Cardiovascular: Rate and Rhythm: Regular rhythm. Heart sounds: Murmur heard. No friction rub. No gallop. Pulmonary: Effort: Pulmonary effort is normal. No respiratory distress. Breath sounds: Normal breath sounds. No stridor. No wheezing, rhonchi or rales. Chest: Chest wall: No tenderness. Abdominal: Palpations: Abdomen is soft. Tenderness: There is no guarding or rebound. Musculoskeletal: General: Swelling, tenderness and deformity present. No signs of injury. Skin: General: Skin is warm and dry. Coloration: Skin is not jaundiced or pale. Findings: No bruising, erythema, lesion or rash. Neurological: Mental Status: She is alert and oriented to person, place, and time. Psychiatric: Mood and Affect: Mood normal. Behavior: Behavior normal. Thought Content: Thought content normal. Judgment: Judgment normal. Impression/Recommendations : Marla Denton is a 66 y.o. female who presents today with rheumatoid arthritis patient continuing on leflunomide 20 mg per day with extensive deformities and smoldering arthralgias. She however is probably doing about as good as she is going to do. She recently completed laboratory studies in [facility] which were acceptable. She denies any complication from her current medical treatment. We will see her again in follow-up in 6 to 12 months sooner if indicated patient in agreement. Any further changes pending her clinical course. She will keep me up-to-date as to what is going on with orthopedics. Fall precautions discussed. documented in this encounter Plan of Treatment Not on file documented as of this encounter Visit Diagnoses Diagnosis Rheumatoid arthritis, involving unspecified site, unspecified whether rheumatoid factor present- Primary S/P left elbow I&D, radial forearm flap (plastics) for dehiscence over TEA 05/28/18 Dr. Fuller Rheumatoid lung disease Rheumatoid lung documented in this encounter Care Teams Hook Loader Relationship Specialty Start Date End Date Curt Cassidy MD [address] [place] [address] PCP - General 10/10/10 documented as of this encounter
--- OUTSIDE RECORDS SUMMARY | 2024-10-30 01:33 | XMS_ITS | Encounter Summary ---
Author Organization [facility] Address [facility] [place] [address] Care Team Providers Care Operational Review Sergeant Name Role Phone Curt Cassidy MD Primary Care Provider [phone] Reason for Visit * Reason Comments Follow-up Encounter Details Date Type Department Care Team (Late st Contact Info) Description 04/01/2019 11:30 AM EDT Office Visit [place] [address] Olivia Snow MD [facility] [place] [address] Status post left elbow joint replacement; Rheumatoid arthritis, involving unspecified site, unspecified rheumatoid factor presence; Medication monitoring encounter; Infected elbow Social History [...] Sign Reading Time Taken Comments Blood Pressure 147/60 04/01/2019 11:55 AM EDT Pulse 99 04/01/2019 11:55 AM EDT Temperature 36.3 ??C (97.4 ??F) 04/01/2019 1 1:55 AM EDT Respiratory Rate - - Oxygen Saturation 96% 04/01/2019 11: 55 AM EDT 2 liters intermitant while out, 2 liters continuous at home Inhaled Oxygen Concentration - - Weight 83.8 kg (184 lb 11.2 oz) 04/01/2019 11:55 AM EDT Height - - Body Mass Index 37.49 10/20/2018 1:26 PM EST documented in this encounter Progress Notes * DarianOlivia neves Hardik - 04/01/2019 11:30 AM EDT Subjective: Patient ID: Marla Denton is a 63 y.o. 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 HPI We have been following Ms. Denton last summer, my last visit with her was July 16, 2018 (see note for details). Briefly, she has a history of seronegative arthritis, and underwent left elbow arthroplasty for progressive pain in January at an outside facility 8. This became complicated by posto perative hematomas requiring multiple repeat debridements, and she was given multiple short coursesof antibiotics. Operative cultures from February 2018 grew sensitive Enterobacter cloacae, and she wastreated with some IV antibiotic followed by cephalexin, followed by ciprofloxacin for 10 days. Her symptoms progressed, however, and she was started on IV ertapenem prior to presenting here for planned wound exploration. She was admitted to [facility] 05/28/2018-06/03/2018, during which time she underwent operative debridementwith myocutaneous flap placed 05/28; there was no noted purulence in the OR, the ulnar and humeral components were found to be well- fixed, and operative cultures were negative. She was initially managed on meropenem, and was changed to suppressive tmp/smx (1 tab BID) on 05/31/2018. It was thought that her initial infection in February had been adequately treated with her long course of IV carbapenems,but as the prostheses remained in place, she would need indefinite antibiotic suppression. When I saw her in June, it was recommended she continue oral TMP/SMX 1 double strength twice daily, indefinitely given her retained hardware. She did well with this through the end of October, although did have an episode of acute enteroviral lower airway pneumonia which led to her reliance on 2L supplemental oxygen in the interim. After October she lost track of some of her medications, andinadvertently started taking the TMP/SMX just once a day, at night. About 2 weeks ago she realized this, and went back to taking it twice daily. Unfortunately a couple of days after she resumed her morning dose, she developed diarrhea with intermittent sweats; she would move her loose stools 1-2 times per day, usually starting a couple hours after the Bactrim dose. She had no abdominal pain, and no fever. Her diarrhea has improved over the past 2 weeks, and is still present but less severe. Shecontinues to take a probiotic. Past Medical History: Past Medical History: Diagnosis [...] 6.08) performed by Lorie Fuller MD at [facility] OR ??? PRO MUSCLE-SKIN FLAP, ARM Left 05/28/2018 FLAP, MYOCUTANEOUS OR FASCIOCUTANEOUS, UPPER EXTREMITY (WRVU 17.04) performed by Rupert Masters MD at [facility] OR ??? PRO REVISE ULNAR NERVE AT ELBOW Left 05/28/2018 NEUROPLASTY &/OR TRANSPOSITION, ULNAR NERVE AT ELBOW (WRVU 7.26) performed by Lorie Fuller MD at [facility] OR ? ? PRO SPLIT GRFT TRUNK, ARM, LEG <100SQCM N/A 05/28/2018 SPLIT THICK SKIN GRAFT,100 SQ CM OR LESS, ARMS (WRVU 9.9) performed by Rupert Masters MD at [facility] OR ??? PRO TOTAL KNEE ARTHROPLASTY 11/02/2013 @TOTAL KNEE ARTHROPLASTY performed by Mayco Montanez Jr., MD at [facility] OR ??? SHOULDER SURGERY ??? TOTAL ELBOW ARTHROPLASTY Left 01/2018 Medications: Current Outpatient Medications on File Prior to Visit Medication Sig Dispense Refill ??? acyclovir (ZOVIRAX) 800 mg Tablet TAKE 1 TABLET BY MOUTH ONCE DAILY 90 tablet 1 ??? DILT-XR 240 mg Capsule,Degradable Cnt Release daily. ??? ipratropium-albuterol (DUONEB) 0.5 mg-3 mg(2.5 mg base)/3 mL Solution for Nebulization daily asneeded. ??? OXYGEN-AIR DELIVERY SYSTEMS MISC [address] [facility]Non-Drug; Combo Route) route daily. ??? leflunomide (ARAVA) 20 mg Tablet TAKE ONE TABLET BY MOUTH ONCE DAILY 90 tablet 3 ??? sulfamethoxazole-trimethoprim (BACTRIM DS) 800-160 mg Tablet Take 1 tablet by mouth 2 times daily. 60 tablet 5 ??? fluticasone-salmeterol (ADVAIR HFA) 230-21 mcg/actuation HFA Aerosol Inhaler Inhale 2 puffs into the lungs 2 times daily. Indications: PREVENTION OF BRONCHOSPASM WITH CHRONIC BRONCHITIS 3 Inhaler3 ??? ascorbate calcium (VITAMIN C ORAL) Take by mouth daily. ??? docusate sodium (COLACE) 100 mg Capsule Take 100 mg by mouth daily. ??? senna (SENOKOT) 8.6 mg Tablet Take by mouth daily. ??? alendronate (FOSAMAX) 70 mg Tablet Take 1 tablet by mouth every 7 days. Take in AM with full glass of water, on an empty stomach. Do not lie down for 30 min. 12 tablet 3 ??? atorvastatin (LIPITOR) 20 mg Tablet Take 20 mg by mouth daily. ??? albuterol 90 mcg/actuation HFA Aerosol Inhaler Inhale 2 puffs into the lungs every 4 hours as needed for Wheezing. Use with spacer 1 Inhaler 5 ??? budesonide-formoterol (SYMBICORT) 160-4.5 mcg/actuation HFA Aerosol [...] into both eyes 6 times daily. ??? levothyroxine (SYNTHROID) 125 mcg Tablet Take 125 mcg by mouth daily. ??? methadone (DOLOPHINE) 10 mg Tablet 15 MG in the AM, 10 MG at NOON, 20 MG in the PM. ??? warfarin (COUMADIN) 5 mg tablet Take 5-7.5 mg by mouth daily. ??? cyclobenzaprine (FLEXERIL) 10 [...] ??? ergocalciferol (VITAMIN D) 50,000 unit capsule 45610 unit, PO, once a month (Patient taking differently: 100,000 units PO twice a week) No current facility-administered medications on file prior to visit. Allergies: Allergies Allergen Reactions ??? Infliximab Anaphylaxis and Other (See Comments) throat swelling,chest heaviness ??? Iodinated Contrast- Oral And Iv Dye Anaphylaxis ??? Iodine And Iodide Containing Products Anaphylaxis ??? Vancomycin Anaphylaxis ??? Wellbutrin [Bupropion Hcl] Other (See Comments) Causes retless leg syndrome ??? Ms Contin [Morphine] ??? Sulfa (Sulfonamide Antibiotics) Tolerates Bactrim ??? Sulfisoxazole ??? Sulfisoxazole Acetyl Unknown Review of Systems Constitutional: Positive for chills and diaphoresis. Negative for fever. HENT: Negative. Eyes: Negative for photophobia and visual disturbance. Respiratory: New oxygen requirement following enterococcal pneumonia in the fall, suspected to be combination ofpossible rheumatic lung disease with diaphragmatic dysfunction Cardiovascular: Negative for chest pain and palpitations. Gastrointestinal: Positive for diarrhea (See HPI) and nausea. Negative for abdominal pain, blood instool and vomiting. Genitourinary: Negative. Musculoskeletal: Chronic musculoskeletal issues related to RA Neurological: Negative for headaches. Most Recent Vitals: 04/01/19 1155 BP: 147/60 Pulse: 99 Temp: 36.3 ??C (97.4 ??F) SpO2: 96% Objective: Physical Exam Constitutional: She is oriented [...] warm and dry. No rash noted. Laboratory: CBC: No results for input(s): WBC, HGB, PLATELET in the last 7068 hours. Chemistry: Recent Labs 07/16/18 1109 NA 142 K 4.2 CL 101 CO2 27 BUN 11 CREATININE 0.88 GLUCOSE 53* Recent Labs 07/16/18 1109 CALCIUM 9.4 LFT's: Recent Labs 07/16/18 1109 BILITOT 0.2 ALBUMIN 4.4 ALKPHOS 119* ALT 25 AST 25 Inflammatory Markers: Sed Rate (mm/hr) Date Value 06/15/2013 33 (H) 05/14/2011 18 10/23/2010 13 CRP (mg/L) Date Value 06/02/2018 2.3 CRP High Sens (mg/L) Date Value 12/19/2015 33.8 08/22/2015 25.6 03/14/2015 7.8 07/26/2014 57.0 09/21/2013 22.6 06/15/2013 9.0 05/14/2011 4.4 10/23/2010 3.7 Urinalysis: Component Value Date/Time SPGRAVITYUA 1.007 10/28/2013 1315 PHUADIP 5.5 10/28/2013 1315 PROTEINUADIP Negative 10/28/2013 1315 GLUCOSEU Negative 10/28/2013 1315 KETONESUA Negative 10/28/2013 1315 UROBILIUADIP Normal 10/28/2013 1315 BLOODUADIP Negative 10/28/2013 1315 NITRATEUA Negative 10/28/2013 1315 LEUKOESTERUA Large (A) 10/28/2013 1315 WBCUA 57 (H) 10/28/2013 1315 BILIRUBINUA Negative 10/28/2013 1315 Microbiology: 05/28 OR, L shoulder: No growth, including from sonicated removed suture material ?? OSH 03/03/2018, OR: Enterobacter cloacae (R to augmentin; Sn to cfx, cipro/levo, erta/jaime, gent, pip-tazo, tmp/smx) 04/24/2018 Wound, elbow: Staph epi (ox-resistant; intermediate to doxy, Sn to tmp/smx) ?? Imaging/Diagnostics: 05/15/2018 XR Elbow: 1. ??Status post left elbow arthroplasty with a 3 mm lucency at the radial sided bone-metal interface of the humeral component. This finding could represent loosening or infection. ? 2. ??Large soft tissue wound along the posterior elbow with ill-defined lucencies along the cortical margins of the truncated olecranon. It is unclear whether these lucencies represent the post operative appearance of the olecranon or sites of osteomyelitis. Recommend correlation with clinical signs and symptoms of infection and laboratory markers of inflammation/infection. Assessment and Plan: 63/F with seronegative arthritis, [...] with indefinite TMP/SMX 1DS BID was recommended. She was last seen in ID clinic June 2018, and is followed with her PCP in the interim. For the past 4 months she had inadvertently moved to 1 DS daily, although has resumed twice daily dosing about 2 weeks ago. No evidence by history or exam of intercurrent wound or hardware infection with this lower dose, thankfully. When she resumed her morning dose she did develop a diarrheal illness, which appears to be improving. Discussed the risks and benefits of ongoing antibiotic suppression, which we strongly favor given her complex infection with retained hardware that had been placed into an infected bed. She strongly wishes to preserve the elbow, and removal of the hardware prosthesis is not an option she wants to entertain, especially given lack of functionality on the other side. Advised that she resume twice daily dosing indefinitely, and she will contact us if she has any more trouble with side effects. Given the interruption in her plan, she requests a follow-up visit with infectious disease to ensure ongoing stability of the elbow, which is reasonable. After this, is[place] resume following up with her primary care physician. -Continue TMP/SMX 1 DS twice daily, indefinitely -She will call ID clinic with any new side effects or ADRs prior to changing her dose -We will schedule six-month follow-up with ID clinic; after this further care may be [facility] Olivia Snow MD Infectious Disease Fellow Personal Pager #[phone] 04/02/2019 * Zaki Duff MD - 04/01/2019 11:30 AM EDT Attending Addendum: I have seen and examined the patient, reviewed the data and agree with the note by Dr. Snow. documented in this encounter Plan of Treatment Not on file documented as of this encounter Visit Diagnoses Diagnosis Status post left elbow joint replacement Rheumatoid arthritis, involving unspecified site, unspecified rheumatoid factor presence Medication monitoring encounter Encounter for therapeutic drug monitoring Infected elbow Unspecified local infection of skin and subcutaneous tissue documented in this encounter Care Teams Operational Review Sergeant Relationship Specialty Start Date End Date Curt Cassidy MD [address] [facility], [address] [address] PCP - General 10/10/10 documented as of this encounter
--- OUTSIDE RECORDS SUMMARY | 2024-10-30 01:33 | XMS_ITS | Encounter Summary ---
Author Organization [facility] Address [facility] [place] [address] Care Team Providers Care Card Seller Name Role Phone Curt Cassidy MD Primary Care Provider [phone] Encounter Details Date Type Department Care Team (Late st Contact Info) Description 02/13/2022 Orders Only [place] [address] Paige Perea, PA [facility] [place] [address] Social History Tobacco Use Types Packs/Day Years [...] on filedocumented in this encounter Care Teams Card Seller Relationship Specialty Start Date End Date Curt Cassidy MD [address] [facility], [address] [id number] PCP - General 10/10/10 documented as of this encounter
--- OUTSIDE RECORDS SUMMARY | 2024-10-30 01:33 | XMS_ITS | Encounter Summary ---
Author Organization [facility] Address [facility] [place] [address] Care Team Providers Care Boiler Engineer Name Role Phone Curt Cassidy MD Primary Care Provider [phone] Reason for Visit * Reason Comments Medication Refill Encounter Details Date Type Department Care Team (Late st Contact Info) Description 07/23/2020 [place] [address] Rafael Sidhu MD [facility] [place] [address] Social History Tobacco Use Types Packs/Day Years [...] on filedocumented in this encounter Care Teams Boiler Engineer Relationship Specialty Start Date End Date Curt Cassidy MD [address] [facility], [facility] [address] [place] [address] PCP - General 10/10/10 documented as of this encounter
--- OUTSIDE RECORDS SUMMARY | 2024-10-30 01:33 | XMS_ITS | Encounter Summary ---
Author Organization [facility] Address [facility] [place] [address] Care Team Providers Care Park Recreation Manager Name Role Phone Curt Cassidy MD Primary Care Provider [phone] Reason for Visit * Consultation (Routine) - Closed Specialty Diagnoses / Procedures Referred By Contac t Referred To Contact Hematology and Oncology Diagnoses Nontraumatic subarachnoid hemorrhage, unspecified Other pulmonary embolism without acute cor pulmonale supervisor intermediates (current) use of anticoagulants Curt Cassidy MD [address] [place] [address], [facility] [address] [place] [address] Leandra Pal MD [facility] [place] [address] Referral ID Status Reason Start Date Expiration Date V isits Requested Visits Authorized [id number] Closed Consult, [facility] & [facility] Connection [facility] PCP Updated and/or Approved 08/19/2020 08/19/2021 1 1 Encounter Details Date Type Department Care Team (Latest Contact Info) Description 12/07/2020 11:00 AM EST TH Visit (TeleHealth) [place] [address] Leandra Pal MD [facility] HEMATOLOGY [place] [address] VTE (venous thromboembolism); supervisor intermediates current use of anticoagulant therapy Social History Tobacco Use Types Packs/Day Years Used Date Smoking Tobacco: Never Smokeless Tobacco: Never Alcohol Use Standard Drinks/Week Comments No 0 (1 standard drink = 0.6 oz pur e alcohol) Sex and Gender Information Value Date Recorded Sex Assigned at Not on file Gender Identity Not on file Sexual Orientation Not on file documented as of this encounter Progress Notes * Leandra Pal MD - 12/07/2020 11:00 AM EST Images from the original note were not included. [facility] [place], [place] [address] THROMBOSIS CONSULTATION DATE OF VISIT 12/07/2020 Patient Marla Denton 1955 REFERRING PHYSICIAN Curt Cassidy MD PRIMARY CARE PHYSICIAN Curt Cassidy MD REASON FOR CONSULTATION Choice of oral anticoagulant Due to COVID-19 pandemic this office visit was converted to telephone visit. Patient verbally consents to this telephone visit and understands that the visit may be billed, similar to a clinic officevisit. HISTORY OF THE PRESENT ILLNESS Marla Denton is a 65 y.o. 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 Cassidy for discussion about choices of oral anticoagulant. The history is obtained from the patient, and I have reviewed extensive medical records provided by the referring physician and located in the electronic medical record to fill in gaps in the patient's recollection of events, treatments and outcomes. In 1988 she developed blood clot in her leg shortly after her . However, she was not treated with anticoagulation. I assume that this was a superficial thrombophlebitis. In 2007 she presented with acute shortness of breath and was diagnosed with acute bilateral pulmonary embolism. Her pulmonary embolism appeared to be unprovoked. She denies any surgery, hospitalization, immobility, trauma around the time. She was started on heparin drip and transitioned to warfarin. A few months later she developed mild pain in her groin and she was diagnosed with DVT in her leg in January 2009. She was not certain if doppler was done at the time of her pulmonary embolism. At that time her INR was 1.9. Therefore, her INR goal was raised to 2.5-3.2 since that given the concern that she might develop a new DVT while on warfarin. She has been on warfarin and her INR levels have been fluctuated and difficulty to get under control. In 2018 she underwent a left elbow arthroplasty which was complicated by hematoma & infection and requiring multiple repeat debridements, and multiple courses of antibiotics. She stated that she usually uses enoxaparin to bridge around interruption of warfarin, but she cannot tell me exactly what doses she usually take. I don't know if her hematoma at that time was related to the procedure itself or due to over bridging. She has been doing fine with warfarin with some mild bleeding issues such as easy bruising. However, last year in April 2020 she fell in the bathroom and hit her head and initially there was a concernof possible small ICH. She was seen by our neurosurgery team and they reviewed all of his CT imaging and did not see any evidence of ICH. She was recommended to resume her warfarin. She does not believe that she has ever seen a brick dropper in the past and she is unaware of any thrombophilia testing. She has been followed by Dr. Sidhu, our sample display preparer for years for her rheumatoid arthritis. She is on chronic oxygen supplement 2L due to respiratory muscle weakness. THROMBOSIS RISK FACTORS Risk Factor Comment Obesity (BMI >30 kg/m2) V/A Diabetes V/A Current smoker V/A Estrogen or estrogen/progestin V/A V/A Inflammatory disease V/A X RA Recent surgery (<3 months) V Recent hospitalization (<3 mo) V Recent travel (<3 mo) V Period of immobility V Documented thrombophilia V Accident/Trauma V/A Cancer or treatment for cancer V/A Blood transfusion V/A Central venous catheter V Family history (1st degree) V/A Varicose veins/venous insuff. V X Venous stasis Hypertension A Hyperlipidemia A X Vascular disease A V: Risk factor for venous thrombosis; A: Risk factor for arterial thrombosis PAST MEDICAL HISTORY Patient Active Problem List Diagnosis Code ??? Seronegative rheumatoid arthritis M06.00 ??? Edema leg R60.0 ??? Cellulitis of leg, right L03.115 ??? Popliteal cyst M71.20 ??? MRSA (methicillin resistant Staphylococcus aureus) infection A49.02 ??? RA (rheumatoid arthritis) M06.9 ??? DJD (degenerative joint disease) of knee M17.10 ??? Internal derangement of knee M23.90 ??? Encounter for long-term (current) use of other medications Z79.899 ??? Orthopnea R06.01 ??? Unspecified essential hypertension I10 ??? Unspecified hypothyroidism E03.9 ??? Rheumatoid arthritis(714.0) M06.9 ??? Pain in joint, shoulder region M25.519 ??? Osteoporosis, unspecified M81.0 ??? Unspecified vitamin D deficiency E55.9 ??? Other pulmonary embolism and infarction I26.99 ??? Other dyspnea and respiratory abnormality R06.09, R09.89 ??? Abnormal weight gain R63.5 ??? Cervicalgia M54.2 ??? Pain in limb M79.609 ??? supervisor intermediates (current) use of anticoagulants Z79.01 ??? Left TKA 11/02 Z96.659 ??? Chronic pain G89.29 ??? Total knee replacement status, left Z96.652 ??? Bilateral hand pain with deformities from RA. M79.641, M79.642 ??? Sjogrens syndrome M35.00 ??? Keratitis H16.9 ??? 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 Lung nodule seen on imaging study R91.1 ??? Pleural effusion J90 ??? Tendonitis, Achilles, left M76.62 ??? Chronic obstructive bronchitis J44.9 ??? Rheumatoid lung disease M05.10 ??? Elbow wound, left, initial encounter S51.002A ??? Elbow joint replacement status, left Dr. Mcgill January 2018 Z96.622 ??? Chronic prescription opiate use Z79.891 ??? Anticoagulated on Coumadin Z79.01 ??? Patient is Adventism Z78.9 ? ? S/P left elbow I&D, radial forearm flap (plastics) for dehiscence over TEA 05/28/18 Dr. Alvarado51.002S ??? Elbow wound, left, 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 S51.002D ??? Surgery follow-up Z09 ??? Tachycardia R00.0 Hyperlipidemia OPERATIVE PROCEDURES Past Surgical History: Procedure Laterality Date ??? CERVICAL FUSION ??? HAND TENDON SURGERY ??? HYSTERECTOMY, TOTAL ABDOMINAL ??? PRO EXPLORE/DRAIN ELBOW FOR INFECT Left 05/28/2018 ARTHROTOMY, ELBOW, EXPLORATION, DRAINAGE, OR REMOVAL FB (WRVU 6.08) performed by Lorie Fuller MD at [facility] MAIN OR ??? PRO MUSCLE-SKIN FLAP, ARM Left 05/28/2018 FLAP, MYOCUTANEOUS OR FASCIOCUTANEOUS, UPPER EXTREMITY (WRVU 17.04) performed by Rupert Masters MD at [facility] MAIN OR ??? PRO REVISE ULNAR NERVE AT ELBOW Left 05/28/2018 NEUROPLASTY &/OR TRANSPOSITION, ULNAR NERVE AT ELBOW (WRVU 7.26) performed by Lorie Fuller MD at [facility] MAIN OR ? ? PRO SPLIT GRFT TRUNK, ARM, LEG <100SQCM N/A 05/28/2018 SPLIT THICK SKIN GRAFT,100 SQ CM OR LESS, ARMS (WRVU 9.9) performed by Rupert Masters MD at [facility] MAIN OR ??? PRO TOTAL KNEE ARTHROPLASTY 11/02/2013 @TOTAL KNEE ARTHROPLASTY performed by Mayco Montanez Jr., MD at [facility] MAIN OR ??? SHOULDER SURGERY ??? TOTAL ELBOW ARTHROPLASTY Left 01/2018 OBSTETRIC HISTORY MEDICATIONS Current Outpatient Medications on File Prior to Visit Medication Sig Dispense Refill ??? acyclovir (Zovirax) 800 mg Tablet TAKE [...] DELIVERY SYSTEMS MISC 2 L [place] [facility] [place]; Combo Route) route daily. ??? fluticasone-salmeterol [...] as needed. (Patient not taking: Reported on 06/01/2020) ??? diphenhydrAMINE (BENADRYL) 25 mg capsule Take 1 capsule by mouth every 6 hours as needed for Itching (Patient requests to take this the same time as the Methadone). ??? ergocalciferol (VITAMIN D) 50,000 unit capsule 11228 unit, PO, once a month (Patient taking differently: Take 50,000 Units by mouth once a week.) No current facility-administered medications on file prior to visit. ADVERSE DRUG REACTIONS Allergies as of 12/07/2020 - Review Complete 06/01/2020 Allergen Reaction Noted ??? Furosemide Palpitations 11/03/2019 ??? Infliximab Anaphylaxis and Other (See Comments) ??? Iodinated contrast media Anaphylaxis ??? Iodine and iodide containing products Anaphylaxis ??? Lisinopril Palpitations 11/03/2019 ??? Vancomycin Anaphylaxis ??? Wellbutrin [bupropion hcl] Other (See Comments) 06/28/2016 ??? Ms contin [morphine] 10/28/2013 ??? Sulfa (sulfonamide antibiotics) ??? Sulfisoxazole ??? Sulfisoxazole acetyl FAMILY HISTORY Motherdied of pneumonia. Hx of RA, [place] s/p cardiac stent Father at 82. Prostate cancer No family history of venous thromboembolism 5 sisters 1 sister with SLE and RA SOCIAL HISTORY 2 children Sister lives with her. No tobacco No alcohol REVIEW OF SYSTEMS Fevers/chills/sweats No Recent infections No Unexplained weight loss No. Headache/lightheadedness/syncope No Sinus pain/pressure No Oral sores/lesions/bleeding No Sore throat/dysphagia No Nosebleeds No Cough/SOB/chest pain/heart racing Chronic shortness of breath stable -> on O2 oxygen. . Sometimes heart racing Nausea/vomiting/dyspepsia No Abdominal pain No Diarrhea/constipation No Urinary pain, burning, incontinence No Hematuria No Vaginal discharge/bleeding No Skin rashes/ulcers No Back/joint pain/swelling L Wrist pain, elbow pain, left shoulder pain, Using cane Leg swelling/pain/redness Chronic bilateral leg swelling - taking diuretic Bruising/petechiae/bleeding/melena Easy bruising Sensory/motor No Polydipsia/polyuria/heat/cold intol No Lumps/bumps/swollen glands No Other Negative except as above PHYSICAL EXAMINATION Weigh 190 lbs. Height. 4 11 LABORATORY STUDIES Lab reviewed from Dr. Cassidy's note Comment only HGB: 10.8 , MCV: 100.9 H on 07/22/2020 WBC: 7.90, Platelets: 342 on 07/22/2020 SGOT (AST) 48 U/L ? SGPT (ALT) 28 U/L ? ANION GAP 8.8 ? CO2 30.2 mmol/L ? CHLORIDE 100 mmol/L ? POTASSIUM 3.7 mmol/L ? SODIUM 139 mmol/L ? ALK PHOS 110 U/L ? BILI TOTAL 0.3 mg/dL ? ALBUMIN 3.6 g/dL ? PROTEIN, TOT 7.0 g/dL ? EGFR 54.91 mL/min/1.73m2 ? CREATININE 1.02 mg/dL ? BUN 10 mg/dL RADIOGRAPHIC STUDIES Reviewed outside medical record in scanned document CT chest 01/01/2008 [facility] Filling defects in the left upper lobe pulmonary artery and right lower lobe pulmonary arterial vessels compatible with bilateral pulmonary emboli Doppler 01/24/2009 [facility] Thrombus in the left femoral and popliteal veins with some restriction of flow. ANNEMARIE Denton is a 65 y.o. woman with history of rheumatoid arthritis, history of pulmonary embolism, DVT who was referred to our Thrombosis Clinic for discussion about choice of oral anticoagulant. Currently she is on warfarin. It appeared that she did have a superficial phlebitis after her C section. In 2007 she developed acute unproved pulmonary embolism. In 2008 she was found to have a DVT in her left leg, butthis is not clear whether this was present back in 2007 or not. At that time there was a concern that she might develop a true recurrent DVT while on warfarin, therefore her INR goal was raised to 2.5-3.2. Since then she has not had any recurrent DVT or PE since then. She had one episode of postoperative hematoma post elbow shoulder - but I am not certain whether this was related to anticoagulation versus due to inadequate surgical hemostasis. Last year she did have have an episode of fall witha head injury. There was a possible concern of ICH. Our neurosurgeon has reviewed the outside imaging and did not think that she had an ICH. She was resumed her anticoagulation. Although her pulmonary embolism & DVT appeared to be unprovoked. Her clinical risk factors for VTE is her inflammatory condition RA, chronic venous stasis and decreased mobility. Her estimate risk for VTE recurrence without anticoagulation is about 10-15%/year and anticoagulation reduces the risk for VTE recurrence down to ~1%/year. The life-threatening bleeding risk on warfarin is ~1%/year. It does not appear that she had ICH last year. I think that her risk/benefit of anticoagulation favors her to stay on anticoagulation at current time. She is now more cautious with her ambulation and uses cane to walk. She has not had a recurrent fall since last summer. I reviewed her medical record in the past and it did not appear that she had a thrombophilia testing done. However, lab testing for antiphospholipid syndrome likely done as a part of rheumatologic work up was negative (lupus anticoagulant, both anticardiolipin IgG and IgM). We discussed choice of oral anticoagulants. I told her that warfarin remains a preferred choice of oral anticoagulant for antiphospholipid syndrome. Given that her lab testing in the past was negative, direct oral anticoagulants such as apixaban, rivaroxaban can be considered. DOACs have been shownto be as effective as warfarin for secondary VTE prophylaxis. In fact, the risk of ICH on DOAC is lower than warfarin. She does not mind to take twice daily dosing. I think that apixaban has the bestsafety profile (can be used in renal dysfunction and also lower GI bleeding risk). Her kidney function & liver function are fine for the use of the drug. Previously she was diagnosed with a DVT while on warfarin, but we are not certain whether a baseline doppler was done at the time of her pulmonary embolism a few months prior. Given the benefit of the doubt, the decision was made to increase her INR goal to 2.5-3.2. We talked that low dose apixabanat 2.5 mg PO twice daily can be considered for secondary VTE prophylaxis based on AMPLIFY-EXT. In her case, because we cannot be certain whether she developed acute DVT while on therapeutic INR back then or not, I am in favor to transition her to apixaban at 5 mg PO twice daily and keep the option to lower apixaban dose to 2.5 mg PO twice daily if she experiences bleeding issues in the future. She agrees with the plan. We also talked about the availability of antidote for apixaban. Currently Andexxa is FDA approved as an antidote for apixaban. We have it available at [facility], but not all [facility] has this onsite. She is a Confucianist. Andexxa is not a blood product and can be used in [place]. Kcentra which is a 4 factor PCC that has been used to reverse warfarin can also be used to reverse apixaban effect off label. Kcentra is more likely readily available in [facility]. Some Confucianist accepted this product which contains coagulation factors derived from human blood product. We also talked that she would not require a bridging with enoxaparin when she is on apixaban because apixaban is short acting. For minor procedure, apixaban should be held at least 48 hours before procedure and resume the following day. For major surgery, she should apixaban 3 days before the surgery and consider resuming apixaban ~12-24 hours after depending on thrombosis/bleeding risk of the surgery. She is interested to switch her anticoagulant from warfarin to apixaban. I sent a script of apixaban 5 mg PO twice daily for 30 day supply to her local pharmacy. I asked her to call back if the co pay is too high. She may be eligible for an assistance program. I will ask Dr. Cassidy's office to helpwith transitioning her anticoagulant. Apixaban can be initiated once her INR is 2 or below. PLAN/RECOMMENDATIONS 1. 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 While I won't schedule a routine follow-up, she knows that she can contact our office and arrange follow- up as needed. I provided care to the patient via telephone call. Total time of care: chart review, telephone call, documentation: 60 minutes. Leandra Pal MD documented in this encounter Plan of Treatment Not on file documented as of this encounter Visit Diagnoses Diagnosis VTE (venous thromboembolism) Embolism and thrombosis of unspecified site [facility] current use of anticoagulant therapy documented in this encounter Care Teams Park Recreation Manager Relationship Specialty Start Date End Date Curt Cassidy MD [address] [facility], [address] [address] PCP - General 10/10/10 documented as of this encounter
--- OUTSIDE RECORDS SUMMARY | 2024-10-30 01:33 | XMS_ITS | Encounter Summary ---
Author Organization [facility] [place] [address] Care Team Providers Care Automobile Upholstery Trim Installer Name Role Phone Curt Cassidy MD Primary Care Provider [phone] Reason for Referral * Diagnostic Test (Routine) - Closed Specialty Diagnoses / Procedures Referred By Contac t Referred To Contact Diagnoses ABDULLAHI (dyspnea on exertion) Chest pain, unspecified type Procedures Echo pharm stress test (DSE) None None [place] [address] Referral ID Status Reason Start Date Expiration Date V isits Requested Visits Authorized [id number] Closed Specialty Service Requested 09/01/2018 11/30/2018 1 1 Reason for Visit * Diagnostic Test (Routine) - Closed Specialty Diagnoses / Procedures Referred By Contac t Referred To Contact Diagnoses ABDULLAHI (dyspnea on exertion) Chest pain, unspecified type Procedures Echo pharm stress test (DSE) None None [facility] [place] [address] Referral ID Status Reason Start Date Expiration Date V isits Requested Visits Authorized [id number] Closed Specialty Service Requested 09/01/2018 11/30/2018 1 1 Encounter Details Date Type Department Care Team (Late st Contact Info) Description 10/20/2018 9:21 AM EST - 10/20/2018 12:30 PM EST Hospital Encounter Non-[place] [id number] Curt Cassidy MD [address] [place] [address], [facility] [address] [place] [address] ABDULLAHI (dyspnea on exertion); Chest pain, unspecified type Discharge Disposition: Home Social History Tobacco Use [...] Sign Reading Time Taken Comments Blood Pressure 181/100 10/20/2018 11:46 AM EST Pulse 98 10/20/2018 11:46 AM EST Temperature - - Respiratory Rate 18 10/20/2018 11:46 AM EST Oxygen Saturation 100% 10/20/2018 11:46 AM EST Inhaled Oxygen Concentration - - Weight 80.7 kg (178 lb) 10/20/2018 11:46 AM EST Height 149.9 cm (4' 11) 10/20/2018 11:46 AM EST Body Mass Index 35.95 10/20/2018 11:46 AM EST documented in this encounter Medications at Time of Discharge Medication Sig Dispensed Refills Start Date End Date DILT-XR 240 mg Capsule,Degradable Cnt Release daily. 10/06/2018 docusate sodium (COLACE) 100 mg Capsule Take [...] 11/05/2013 ergocalciferol (VITAMIN D) 50,000 unit capsule 29070 unit, PO, once a month 10/23/2010 budesonide-formoteroL [...] Procedure Name Priority Date/Time Associated Diagnosis Comments STRESS ECHO W CONTRAST W LMTD SPEC DOPP COLOR DOPP Routine 10/20/2018 12:18 PM EST ABDULLAHI (dyspnea on exertion) Chest pain, unspecified type documented in this encounter Results * STRESS ECHO W CONTRAST W LMTD SPEC DOPP COLOR DOPP (10/20/2018 12:18 PM EST) EF 65 HEARTLAB SYSTEM Anatomical Region Laterality Modality Other 10/20/2018 Narrative 10/20/2018 2:44 PM EST Procedure: ?Stress Echocardiogram Patient: ?CORRIE CHAIREZRA E ? (Age): 1955(63y) Med Rec#: ? [id number] ?Sex: ?F ? Site Loc: ? [facility] ?Ht / Wt: ??149(cm)/81(kg) Pt. Loc: ?Echo Lab ?BSA: ?1.75 Study Date: ?? 10/20/2018 ?Pt. Type: Tape: ? Reading: David Allison ([id number]) Husbandry Technician: Madison Rich Nurse: Mireille Ashraf Diagnosis: *Chest pain, unspecified (R07.9) *Other forms of dyspnea (R06.09) Stage ? BP ?HR ? Rest ?181/100 ? 98 ? Low dose ?178/70 ?114 ? Peak ?166/72 ?139 ? Recovery ?164/76 ?88 ? SUMMARY: 1. Dobutamine stress echo is negative for ischemia at this level of stress. 2. The patient achieved a maximum heart rate of 139 bpm which is 87% of the maximum predicted heart rate (159 beats/min). The target heart rate was achieved. 3. The peak dose of Dobutamine infused was 20 ug/kg/min. ??The patient did not express feelings of chest discomfort. The blood pressure response was hypertensive. 4. Echo: Left ventricular chamber size, wall thickness, global and segmental systolic function are within normal limits. Ejection fraction is estimated to be 65%. ??At peak pharmacologic stress, there is recruitment of all LV lopez. ?? 5. ECG: NSR. ??No significant ST changes with stress. 6. Other details as noted below. Findings Rest: Study Quality: ? Technically limited Left Ventricle: ? Left ventricular chamber size, wall thickness, global and segmental systolic function are within normal limits. Ejection fraction is estimated to be 65%. Right Ventricle: ? The right ventricle is not well visualized. Aortic Valve: ? The aortic valve is probably tricuspid. ?There is no evidence of aortic valve stenosis. Mitral Valve: ? The mitral valve is probably normal. ?There is trace mitral regurgitation present. Tricuspid Valve: ? The tricuspid valve is not well visualized. Aorta: ? The ascending aorta is normal in size. Stress: ? EKG: normal sinus rhythm. ?EKG: sinus tachycardia. ?The patient is on an anti-hypertensive; ??( ) hours since taken. Misc: ? The patient is alert and oriented x3. ?The procedure was explained to the patient and the patient understands the procedure, ?A 22 gauge heplock was placed. ?An IV was placed in the patient's left arm. ?An antecubital IV was placed. ?The IV site is dry and intact with no hematoma. Findings Low dose: Stress: ? EKG: sinus tachycardia. Findings Peak: Predicted Values:The patient achieved a maximum heart rate of 139 which is 87% of the maximum predicted heart rate (159 beats/min). ??The target heart rate was achieved. Left Ventricle: ? Global left ventricular systolic function appears hyperdynamic. ?There are no left ventricular segmental wall motion abnormalities. Stress: ? The peak dose of Dobutamine infused was 20 ug/kg/min. ?The patient was administered 5 mg of Metoprolol during recovery. ?The patient did not express feelings of chest discomfort. ?The blood pressure response was hypertensive. ?There were rare atrial premature beats. ?This was a negative echocardiographic stress test. ?EKG: sinus tachycardia. ?The patient's oxygen saturation was 100% on 2L O2 NC. Misc: ? Definity contrast (one 1.5 ml vial)was used to enhance endocardial definition. Excess contrast was discarded. ?Stress echo, limited spectral Doppler, color Doppler and ECG interpretation performed. Findings Recovery: Stress: ? EKG: normal sinus rhythm. Misc: ? The heplock was discontinued. ?The IV site is dry and intact with no hematoma. ?Normal saline was given. 250cc Chambers 2D ?Value ?Units (Range) ? Ascending Ao ?3 ?cm (2 - 3.5) ? Wall Motion: Segment Name ?Rest ? Peak ? Base-Anteroseptal ?? Normal ? Normal ? Base-Anterior ? Normal ? Normal ? Base-Anterolateral ??Normal ? Normal ? Base-Posterolateral Normal ? Normal ? Base-Inferior ? Normal ? Normal ? Base-Inferoseptal ?? Normal ? Normal ? Mid-Anteroseptal ?Normal ? Normal ? Mid-Anterior ?Normal ? Normal ? Mid-Anterolateral ?? Normal ? Normal ? Mid-Posterolateral ??Normal ? Normal ? Mid-Inferior ?Normal ? Normal ? Mid-Inferoseptal ?Normal ? Normal ? [place]-Septal ? Normal ? Normal ? [place]-Anterior ? Normal ? Normal ? [place]-Lateral ?Normal ? Normal ? [place]-Inferior ? Normal ? Normal ? [place]-Tip ?Normal ? Normal ? This report has been electronically signed by: David Allison MD ? 10/20/2018 14:43:31 Images reviewed and interpretation verified [facility] Cardiac Ultrasound Laboratory Procedure Note David Allison MD - 10/20/2018 Procedure: Stress Echocardiogram Patient: CORRIE DEL CASTILLO(Age): 1955(63y) Med Rec#: [id number] Sex: F Site Loc: [facility] Ht / Wt: 149(cm)/81(kg) Pt. Loc: Echo Lab BSA: 1.75 Study Date: 10/20/2018 Pt. Type: Tape: Reading: David Allison ([id number]) Husbandry Technician: Madison Rich Nurse: Mireille Ashraf Diagnosis: *Chest pain, unspecified (R07.9) *Other forms of dyspnea (R06.09) Stage BP HR Rest 181/100 98 Low dose 178/70 114 Peak 166/72 139 Recovery 164/76 88 SUMMARY: 1. Dobutamine stress echo is negative for ischemia at this level of stress. 2. The patient achieved a maximum heart rate of 139 bpm which is 87% of the maximum predicted heart rate (159 beats/min). The target heart rate was achieved. 3. The peak dose of Dobutamine infused was 20 ug/kg/min. The patient did not express feelings of chest discomfort. The blood pressure response was hypertensive. 4. Echo: Left ventricular chamber size, wall thickness, global and segmental systolic function are within normal limits. Ejection fraction is estimated to be 65%. At peak pharmacologic stress, there is recruitment of all LV lopez. 5. ECG: NSR. No significant ST changes with stress. 6. Other details as noted below. Findings Rest: Study Quality: Technically limited Left Ventricle: Left ventricular chamber size, wall thickness, global and segmental systolic function are within normal limits. Ejection fraction is estimated to be 65%. Right Ventricle: The right ventricle is not well visualized. Aortic Valve: The aortic valve is probably tricuspid. There is no evidence of aortic valve stenosis. Mitral Valve: The mitral valve is probably normal. There is trace mitral regurgitation present. Tricuspid Valve: The tricuspid valve is not well visualized. Aorta: The ascending aorta is normal in size. Stress: EKG: normal sinus rhythm. EKG: sinus tachycardia. The patient is on an anti-hypertensive; ( ) hours since taken. Misc: The patient is alert and oriented x3. The procedure was explained to the patient and the patient understands the procedure, A 22 gauge heplock was placed. An IV was placed in the patient's left arm. An antecubital IV was placed. The IV site is dry and intact with no hematoma. Findings Low dose: Stress: EKG: sinus tachycardia. Findings Peak: Predicted Values:The patient achieved a maximum heart rate of 139 which is 87% of the maximum predicted heart rate (159 beats/min). The target heart rate was achieved. Left Ventricle: Global left ventricular systolic function appears hyperdynamic. There are no left ventricular segmental wall motion abnormalities. Stress: The peak dose of Dobutamine infused was 20 ug/kg/min. The patient was administered 5 mg of Metoprolol during recovery. The patient did not express feelings of chest discomfort. The blood pressure response was hypertensive. There were rare atrial premature beats. This was a negative echocardiographic stress test. EKG: sinus tachycardia. The patient's oxygen saturation was 100% on 2L O2 NC. Misc: Definity contrast (one 1.5 ml vial)was used to enhance endocardial definition. Excess contrast was discarded. Stress echo, limited spectral Doppler, color Doppler and ECG interpretation performed. Findings Recovery: Stress: EKG: normal sinus rhythm. Misc: The heplock was discontinued. The IV site is dry and intact with no hematoma. Normal saline was given. 250cc Chambers 2D Value Units (Range) Ascending Ao 3 cm (2 - 3.5) Wall Motion: Segment Name Rest Peak Base-Anteroseptal Normal Normal Base-Anterior Normal Normal Base-Anterolateral Normal Normal Base-Posterolateral Normal Normal Base-Inferior Normal Normal Base-Inferoseptal Normal Normal Mid-Anteroseptal Normal Normal Mid-Anterior Normal Normal Mid-Anterolateral Normal Normal Mid-Posterolateral Normal Normal Mid-Inferior Normal Normal Mid-Inferoseptal Normal Normal [place]-Septal Normal Normal [place]-Anterior Normal Normal [place]-Lateral Normal Normal [place]-Inferior Normal Normal [place]-Tip Normal Normal This report has been electronically signed by: David Allison MD 10/20/2018 14:43:31 Images reviewed and interpretation verified [facility] Cardiac Ultrasound Laboratory Curt Cassidy MD ECHO ORDERABLES documented in this encounter Visit Diagnoses Diagnosis ABDULLAHI (dyspnea on exertion) Other dyspnea and respiratory abnormality Chest pain, unspecified type documented in this encounter Administered Medications Inactive Administered Medications - up to 3 most recent administrations Medication Order MAR Action Action Date Dose Rate Site DOBUTamine (2000 mcg/mL) 100 mg in Dextrose 5% 50 mL infusion 20 mcg/kg/min ? 80.7 kg (48.42 mL/hr, rounded to 48.4 mL/hr), Intravenous, CONTINUOUS, Starting on Sat10/20/18 at 1145, Until Sat10/20/18 at 1209, Administer over 9.56 Minutes, Warning Vesicant/Irritant Medication , Echo Lab (Intra-Procedure) New Bag 10/20/2018 11:45 AM EST 20 mcg/kg/min 48.4 mL/hr meTOPROLOL (LOPRESSOR) injection 5 mg 5 mg, Intravenous, ONCE, 1 dose, On Sat10/20/18 at 1230, Echo Lab (Intra-Procedure), Routine Given 10/20/2018 12:05 PM EST 5 mg perflutren lipid microspheres (DEFINITY) injection 1 mL 1 mL, Intravenous, ONCE PRN, 1 dose, Starting on Sat10/20/18 at 1218, Until Sat10/20/18 at 1130, per protocol, Routine Given 10/20/2018 11:30 AM EST 1 mL documented in this encounter Care Teams Automobile Upholstery Trim Installer Relationship Specialty Start Date End Date Curt Cassidy MD [address], [address] [address] PCP - General 10/10/10 documented as of this encounter
--- OUTSIDE RECORDS SUMMARY | 2024-10-30 01:33 | XMS_ITS | Encounter Summary ---
[place] [address] Care Team Providers Care Fitter Helper Name Role Phone Curt Cassidy MD Primary Care Provider [phone] Encounter Details Date Type Department Care Team (Latest Contact Info) Description 09/15/2021 11:25 AM EDT Laboratory Appointment Lab [address] [place] [id number] MRSA (methicillin resistant Staphylococcus aureus) infection; Elbow joint replacement status, left Dr. Mcgill January 2018 Social History Tobacco Use Types Packs/Day Years [...] Procedure Name Priority Date/Time Associated Diagnosis Comments HC C-REACTIVE PROTEIN Routine 09/15/2021 11:40 AM EDT MRSA (methicillin resistant Staphylococcus aureus) infection Elbow joint replacement status, left Dr. Mcgill January 2018 HEMOGRAM Routine 09/15/2021 11:40 AM EDT MRSA (methicillin resistant Staphylococcus aureus) infection Elbow joint replacement status, left DIFFERENTIAL, AUTOMATED Routine 09/15/2021 11:40 AM EDT MRSA (methicillin resistant Staphylococcus aureus) infection Elbow joint replacement status, left HC ESR-SEDIMENTATION RATE, BLOOD Routine 09/15/2021 11:40 AM EDT MRSA (methicillin resistant Staphylococcus aureus) infection Elbow joint replacement status, left Dr. Mcgill January 2018 HC CBC,PLT & AUTO DIFF Routine 09/15/2021 11:40 AM EDT MRSA (methicillin resistant Staphylococcus aureus) infection Elbow joint replacement status, left Dr. Mcgill January 2018 documented in this encounter Results * (ABNORMAL) Differential, Automated (09/15/2021 11:40 AM EDT) Neutrophil % 62.2 % [facility] Neutrophil Absolute 4.39 1.70 - 6.10 x10(3)/[facility] Lymph % 19.7 % [facility] Lymphocytes Abs 1.4 0.9 - 3.2 x10(3)/[facility] Monocyte % 15.3 % [facility] Monocyte Abs 1.1(H) 0.3 - 0.9 x10(3)/[facility]OR[facility] Eos % 2.1 % [facility] Eosinophils Abs 0.2 0.0 - 0.4 x10(3)/[facility] Basophil % 0.6 % [facility] Baso Absolute 0.0 0.0 - 0.1 x10(3)/[facility]OR[facility] Immature Gran % 0.10 % [facility] Comment: Immature granulocytes(IG's)percentage and absolute count will include metamyelocytes, myelocytes, and promyelocytes. Blood smears from CBCs yielding IG's will be scanned manually for concordance. If this scan disagrees with the automated IG or if promyelocytes are noted, a manual differential will be performed. Immature Gran Absolute 0.01 0.00 - 0.04 x10(3)/ L [facility] Blood 09/15/2021 11:4 0 AM EDT 09/15/2021 11:53 AM EDT Narrative Resulting Agency Comment Spec In Lab Lorie Fuller MD HEMATOLOGY ORDERABLE S [facility] [place] [address] * (ABNORMAL) Hemogram (09/15/2021 11:40 AM EDT) White Blood Cell 7.1 4.0 - 9.5 x10(3)/mc L [facility] Red Blood Cell 3.39(L) 4.00 - 5.21 x10(6)/mc L [facility] Hemoglobin 10.7(L) 11.7 - 15.5 g/dL [facility] Hematocrit 33.4(L) 35.7 - 45.8 % [facility] Mean Cell Volume 98.5(H) 82.6 - 94.4 fL [facility] Mean Cell Hemoglobin 31.6 27.1 - 32.0 pg [facility] Mean Cell Hemoglobin Concentration 32.0 31.7 - 35.0 g/dL [facility] Platelet 298 145 - 357 x10(3)/mc L [facility] RDW Standard Deviation 46.5(H) 37.0 - 46.0 fL [facility] RDW coefficient of variation 13.0 11.5 - 14.1 % [facility] Mean Platelet Volume 9.4 7.6 - 12.9 fL [facility] NRBC% auto 0.0 % [facility] NRBC Absolute 0.000 0.000 - 0.000 x10(3)/mc L [facility] Blood 09/15/2021 11:4 0 AM EDT 09/15/2021 11:53 AM EDT Narrative Resulting Agency Comment Spec In Lab Lorie Fuller MD HEMATOLOGY ORDERABLE S [facility] [place] [address] * (ABNORMAL) CRP, acute inflammation (09/15/2021 11:40 AM EDT) C-Reactive Protein 14.1(H) <=4.9 mg/L [facility] Blood 09/15/2021 11:4 0 AM EDT 09/15/2021 11:53 AM EDT Narrative Resulting Agency Comment Spec In Lab Lorie Fuller MD CHEMISTRY ORDERABLES Performing Organization Address City/[facility] Co de Phone Number [facility] [place] [address] * Sedimentation rate (09/15/2021 11:40 AM EDT) Sedimentation Rate Automated 37 2 - 39 mm/hr [facility] Comment: Effective October 28, 2019 new capillary photometric technology has resulted in a change in reference ranges. It is recommended that each ESR result be reviewed with its own age appropriate reference range. Blood 09/15/2021 11:4 0 AM EDT 09/15/2021 11:53 AM EDT Narrative Resulting Agency Comment Spec In Lab Lorie Fuller MD HEMATOLOGY ORDERABLE S Performing Organization Address [facility] Co de Phone Number [facility] [place] [address] documented in this encounter Visit Diagnoses Diagnosis MRSA (methicillin resistant Staphylococcus aureus) infection Methicillin resistant Staphylococcus aureus in conditions classified elsewhere and of unspecified site Elbow joint replacement status, left Dr. Mcgill January 2018 documented in this encounter Care Teams Fitter Helper Relationship Specialty Start Date End Date Curt Cassidy MD [address] [facility] [address] [place] [address] PCP - General 10/10/10 documented as of this encounter
--- OUTSIDE RECORDS SUMMARY | 2024-10-30 01:33 | XMS_ITS | Encounter Summary ---
Author Organization [facility] Address [facility] [place] [address] Care Team Providers Care Account Director Name Role Phone Curt Cassidy MD Primary Care Provider Reason for Visit * Reason Comments Follow-up follow up elbow Encounter Details Date Type Department Care Team (Late st Contact Info) Description 02/12/2022 11:30 AM EDT [place] [address] Masood Barriga MD [facility] [place] [address] Elbow joint replacement status, left (Primary Dx) Social History Tobacco Use Types Packs/Day Years [...] Sign Reading Time Taken Comments Blood Pressure 146/75 02/12/2022 11:18 AM EDT Pulse 98 02/12/2022 11:18 AM EDT Temperature - - Respiratory Rate - - Oxygen Saturation - - Inhaled Oxygen Concentration - - Weight 78 kg (172 lb) 02/12/2022 11:18 AM EDT Height 149.9 cm (4' 11) 02/12/2022 11:18 AM EDT Body Mass Index 34.74 02/12/2022 11:18 AM EDT documented in this encounter Progress Notes * Masood Barriga MD - 02/12/2022 11:30 AM EDT Orthopaedic Surgery Clinic Note Chief Complaint: Follow-up left total elbow arthroplasty draining sinus History of Present Illness: Marla Denton is a 66 y.o. Right hand dominant female who presents for follow-up regarding her left total elbow arthroplasty with apparent draining sinus. To review, the patient has a very complex history related to her left total elbow. She does have a history of rheumatoid arthritis and underwent a left total elbow arthroplasty in 2018 at [facility] with Dr. Mcgill. She remained on her warfarin throughout the course of surgery and ended up with a significant postoperative hematoma. This required multiple debridements and ultimately she underwent flapcoverage here with Dr. Masters in the plastic [...] the last visit, we had planned for anexplant and antibiotic spacer due to her arthrocutaneous fistula. She ultimately decided to cancel her case as she felt like the elbow was feeling better and had stopped draining. She returns to clinic today for reevaluation. She reports that the previous sinus has stopped draining and healed over. She feels like the pain in her elbow is still more than it was in the past but has improved. She is finding it tolerable at this point she denies fevers, chills, other issues. Objective: GENERAL: Well appearing, appropriate SKIN: No significant abrasions or lesions about the elbow. NEUROVASCULAR: Sensation intact to light touch in the Left upper extremity. Warm and well perfused hand. MUSCULOSKELETAL: Left Elbow Examination Visible abnormality: Location of previous draining lesion healed. Mild warmth to palpation. Tenderness to palpation: No Palpable crepitus: No Range of motion- Left Extension: 30 Flexion: 120 Supination: 20 Pronation: 80 No purulence expressible [...] bushing wear. The overall appearance of the jointis similar to her previous visit. Assessment/Plan: 66 y.o. 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 This is healed over at this point which is somewhat surprising. The patient feels like her pain is somewhat improved, but still has some pain within the joint. We discussed neck steps. At this point, I think we need to further define if she does have a prosthetic joint infection. To do this we will reattempt another aspiration which will hopefully be more productive since her sinus has closed at this point. We did discuss that if she is asymptomatic with a low virulence bacteria, she could choose to live with this prosthesis in place. Before makingthis decision I would certainly want her to see infectious disease and understand if she needed anytype of oral prophylaxis to avoid seeding her other joints. Her implants appear well fixed, and removing them and complete in a two-stage exchange will certainly be a large impact on her overall wellbeing and functionality. She is really doing pretty well at this point in terms of her left elbow, and other than the risk of it worsening the future, she can certainly tolerate her current functionalstatus. We will plan to get lab work today and complete a fluoroscopy guided aspiration. This will help us decide what steps to take next. I will discuss this with her on the phone once results become available. Masood Barriga MD, MS Shoulder and Elbow Surgeon Department of Orthopaedic Surgery [facility] This note was created with the assistance of voice dictation software. Please excuse any related errors. documented in this encounter Plan of Treatment Not on file documented as of this encounter Procedures Procedure Name Priority Date/Time Associated Diagnosis Comments HC C-REACTIVE PROTEIN Routine 02/12/2022 12:57 PM EDT Elbow joint replacement status, left HEMOGRAM Routine 02/12/2022 12:57 PM EDT Elbow joint replacement status, left DIFFERENTIAL, AUTOMATED Routine 02/12/2022 12:57 PM EDT Elbow joint replacement status, left HC ESR-SEDIMENTATION RATE, BLOOD Routine 02/12/2022 12:57 PM EDT Elbow joint replacement status, left HC CBC,PLT & AUTO DIFF Routine 02/12/2022 12:57 PM EDT Elbow joint replacement status, left [...] questions please contact the health health care coach that requested your imaging first. ? Narrative 03/07/2022 3:57 PM EDT LEFT ELBOW JOINT ASPIRATION UNDER FLUOROSCOPY CLINICAL HISTORY: left elbow pain (as entered by ordering provider in the order requisition) TECHNIQUE: After an extensive conversation with the patient regarding risks and benefits, oral and written consent were obtained. A pre- procedural time-out was performed as per [facility] protocol. The patient was placed prone with [...] A pre- procedural time-out wasperformed as per [facility] protocol. The patient was placed prone with [...] have questions please contactthe health health care coach that requested your imaging first. Masood Barriga MD IMG FLUORO ORDERABLE S * Differential, Automated (02/12/2022 12:57 PM EDT) Neutrophil % 65.2 % [facility] Neutrophil Absolute 3.49 1.70 - 6.10 x10(3)/[facility] Lymph % 21.5 % [facility] Lymphocytes Abs 1.2 0.9 - 3.2 x10(3)/[facility] Monocyte % 12.0 % [facility] Monocyte Abs 0.6 0.3 - 0.9 x10(3)/[facility] Eos % 0.7 % [facility] Eosinophils Abs 0.0 0.0 - 0.4 x10(3)/[facility] Basophil % 0.4 % [facility] Baso Absolute 0.0 0.0 - 0.1 x10(3)/[facility] Immature Gran % 0.20 % [facility] Comment: Immature granulocytes(IG's)percentage and absolute count will include metamyelocytes, myelocytes, and promyelocytes. Blood smears from CBCs yielding IG's will be scanned manually for concordance. If this scan disagrees with the automated IG or if promyelocytes are noted, a manual differential will be performed. Immature Gran Absolute 0.01 0.00 - 0.04 x10(3)/[facility] Blood 02/12/2022 12:5 7 PM EDT 02/12/2022 1:06 PM EDT Narrative Resulting Agency Comment Spec In Lab Masood Barriga MD HEMATOLOGY ORDERABLE S [facility] [place] [address] * (ABNORMAL) Hemogram (02/12/2022 12:57 PM EDT) White Blood Cell 5.4 4.0 - 9.5 x10(3)/ L [facility] Red Blood Cell 3.33(L) 4.00 - 5.21 x10(6)/ L [facility] Hemoglobin 10.6(L) 11.7 - 15.5 g/dL [facility] Hematocrit 32.8(L) 35.7 - 45.8 % [facility] Mean Cell Volume 98.5(H) 82.6 - 94.4 fL [facility] Mean Cell Hemoglobin 31.8 27.1 - 32.0 pg [facility] Mean Cell Hemoglobin Concentration 32.3 31.7 - 35.0 g/dL [facility] Platelet 266 145 - 357 x10(3)/mc L [facility] RDW Standard Deviation 43.9 37.0 - 46.0 fL [facility] RDW coefficient of variation 12.2 11.5 - 14.1 % [facility] Mean Platelet Volume 9.3 7.6 - 12.9 fL [facility] NRBC% auto 0.0 % [facility] NRBC Absolute 0.000 0.000 - 0.000 x10(3)/mc L [facility] Blood 02/12/2022 12:5 7 PM EDT 02/12/2022 1:06 PM EDT Narrative Resulting Agency Comment Spec In Lab Masood Barriga MD HEMATOLOGY ORDERABLE S Performing Organization Address [facility] Co de Phone Number [facility] [place] [address] * (ABNORMAL) Sedimentation rate (02/12/2022 12:57 PM EDT) Sedimentation Rate Automated 65(H) 2 - 39 mm/hr [facility] Comment: Effective October 28, 2019 new capillary photometric technology has resulted in a change in reference ranges. It is recommended that each ESR result be reviewed with its own age appropriate reference range. Blood 02/12/2022 12:5 7 PM EDT 02/12/2022 1:06 PM EDT Narrative Resulting Agency Comment Spec In Lab Masood Barriga MD HEMATOLOGY ORDERABLE S [facility] [place] [address] * CRP, acute inflammation (02/12/2022 12:57 PM EDT) C-Reactive Protein 3.2 <=4.9 mg/L [facility] Blood 02/12/2022 12:5 7 PM EDT 02/12/2022 1:06 PM EDT Narrative Resulting Agency Comment Spec In Lab Masood Barriga MD CHEMISTRY ORDERABLES [facility] [place] [address] * XR Elbow 3 Views Left (GENERIC) [...] questions please contact the health health care coach that requested your imaging first. ? Narrative [...] have questions please contactthe health health care coach that requested your imaging first. Masood Barriga MD IMG DX ORDERABLES documented in this encounter Visit Diagnoses Diagnosis Elbow joint replacement status, left- Primary Elbow joint replacement status, left Elbow joint replacement status, left documented in this encounter Care Teams Account Director Relationship Specialty Start Date End Date Curt Cassidy MD [address] [facility], [address] [address] PCP - General 10/10/10 documented as of this encounter
--- OUTSIDE RECORDS SUMMARY | 2024-10-30 01:33 | XMS_ITS | Encounter Summary ---
Author Organization [facility] Address [facility] [place] [address] Care Team Providers Care Lookback Coordinator Name Role Phone Curt Cassidy MD Primary Care Provider [phone] Reason for Visit * Reason Comments Follow-up S/P left elbow I&D, radial forearm flap (plastics) for dehiscence over TEA 05/28/18 Dr. Alina COOLEY FOR POSSIBLE LOOSENING OF HARDWARE Encounter Details Date Type Department Care Team (Late st Contact Info) Description 09/15/2021 10:20 AM EDT [place] [id number] Radha Mckeon APRN [facility] [place] [address] Elbow joint replacement status, left Dr. Mcgill January 2018; Chronic elbow pain, PJI total elbow life replacement long antibiotic suppression Social History Tobacco Use Types Packs/Day Years [...] Sign Reading Time Taken Comments Blood Pressure 117/60 09/15/2021 10:34 AM EDT Pulse 92 09/15/2021 10:34 AM EDT Temperature - - Respiratory Rate - - Oxygen Saturation - - Inhaled Oxygen Concentration - - Weight 78 kg (172 lb) 09/15/2021 10:34 AM EDT Height 149.9 cm (4' 11) 09/15/2021 10:34 AM EDT Body Mass Index 34.74 09/15/2021 10:34 AM EDT documented in this encounter Progress Notes * Radha Mckeon, SURFACE WATER TECHNICIAN - 09/15/2021 10:20 AM EDT Images from the original note were not included. PATIENT NAME: Marla Denton AGE: 65 y.o. MR#: [id number] DATE OF VISIT: 09/15/2021 PERTINENT SURGICAL HISTORY: Left elbow total elbow replacement Dr. Mcgill 01/23/2018. [facility] With post op Left elbow hematoma evacuation LEFT elbow I and D X2 with wound vac. Most recent surgery: DATE OF SURGERY: 05/28/2018 ??Dr. Fuller and Dr. Masters SURGERY DESCRIPTION: ARTHROTOMY, ELBOW, EXPLORATION, DRAINAGE, OR REMOVAL FB (Left) FLAP, MYOCUTANEOUS OR FASCIOCUTANEOUS, UPPER EXTREMITY (Left) SPLIT THICK SKIN GRAFT,100 SQ CM OR LESS, ARMS NEUROPLASTY &/OR TRANSPOSITION, ULNAR NERVE AT ELBOW (Left) CHIEF COMPLAINT: Unexpected visit for NEW Abscess LEFT lateral elbow HISTORY OF PRESENT ILLNESS: Ms. Denton a 65 y.o. year old female with hx of RA, PE, with multiplemedical co-morbidities who with known above surgeries including post op wound healing complicationsand skin flap + PJI chronic antibiotic suppression (Bactrim) who comes into clinic today unexpectedly for an insidious LEFT lateral elbow abscess just adjacent to the flap site. This started as a small pimple sized nodule that has grown in size over the past few weeks. Scant clear drainage. No foul odor, no purulence or red streaking. She called the office concern for infection and advised by our team to come in for evaluation, x-rays and a joint aspiration. She feels well no drenching night sweats, fevers or chills. Ms. Denton denies any systemic or constitutional signs of infection. Shedenies any numbness or tingling distal to the surgical procedure. Pain is minimal and her baseline ROM has not changed. No new tingling reported in the hands with chronic ulnar neuritis with known previous ulnar nerve decompression. Patient's medications, allergies, past medical, surgical, social and family histories were reviewedand updated as appropriate. ROS: Denies fever, chills, nausea, vomiting, vision change, shortness of breath, chest pain, visionchanges, headaches, bowel or bladder problem, ear, nose, sinus problem, neuro or psychiatric, or endocrine disorder not addressed above. Questionnaire Responses: NONE PHYSICAL EXAMINATION: Vitals: 09/15/21 1034 BP: 117/60 Pulse: 92 Weight: 78 kg (172 lb) Height: 149.9 cm (4' 11) Body mass index is 34.74 kg/m??. Ms. Corrie zamora 65 y.o. female is alert and oriented.She appears in no acute discomfort and is resting comfortably in a chair in the exam room. Non-toxic appearing. Wearing a C-pap air machine/face mask here with her Sister. Wound Inspection: There is an obvious abscess about the skin flap surgical incision that is slightly boggy with underlying fluctuance. No red streaking or ascending cellulitis. No foul odor. No jointeffusion. Neuro: Axillary, Radial, ulna chronic distal 4/5 finger atrophy hx of chronic ulnar neuritis/compression (hx of decompression) and median neuro-motor intact. Hand is sensate, well perfused, distal pulses are 2+ and equal. ROM: no elbow pain with passive ROM with an arc of motion that PT reports is baseline lacking about15 degrees of full extension to about 90 degrees of flexion. Pronation ~ 40 degrees. Supination ~ 30 degrees. No pain with active ROM. Wrist extension 5/5 strength. Interosseous, intrinsics intact. Bi ceps/triceps 5/5. There is no instability about the elbow. LEFT lateral elbow abscess: Imaging : LEFT elbow x-ray reviewed image by image in the office today reveals no obvious hardware loosening or fracture with the cement metal interface there may be a lucency per radiology. D/w Dr. Fuller who did not recommend higher level imaging. Lab Results Component Value Date WBC 7.1 09/15/2021 RBC 3.39 (L) 09/15/2021 HGB 10.7 (L) 09/15/2021 HCT 33.4 (L) 09/15/2021 MCV 98.5 (H) 09/15/2021 MCH 31.6 09/15/2021 MCHC 32.0 09/15/2021 PLATELET 298 09/15/2021 RDWCV 13.0 09/15/2021 Lab Results Component Value Date SEDRATE 33 (H) 06/15/2013 Lab Results Component Value Date CRP 2.3 06/02/2018 ASSESSMENT: 65 year old Female with RA/hx of PE/multiple medical co-morbidities with a complicated wound healing issues and PJI following total elbow arthroplasty with life long antibiotic suppression with Bactrim with new LEFT lateral elbow abscess concerning for deep infection. PLAN: I reviewed my findings in the office today with both x-rays and clinical exam. Dr Fuller lookedin on the patient and agrees with above. At this time, We recommend proceeding with the LEFT elbow aspiration in radiology. Order in Place with cell count, gram stain, 14 day extended culture. We will call Marla early next week for any preliminary findings of the culture and discuss surgical treatment options including I and D. In the interim, Placed mepilex dressing over the abscess ok to change every 2-3 days. Call immediately or go to local ER for purulence, foul odor, red streaking, pain, systemic/constitutional complaints, fevers or chills. The patient indicates understanding of these is sues and agrees with the plan. documented in this encounter Plan of Treatment Not on file documented as of this encounter Visit Diagnoses Diagnosis Elbow joint replacement status, left Dr. Mcgill January 2018 Chronic elbow pain, PJI total elbow life replacement long antibiotic suppression documented in this encounter Care Teams Lookback Coordinator Relationship Specialty Start Date End Date Curt Cassidy MD [address] [facility] [address] [place] [address] PCP - General 10/10/10 documented as of this encounter
--- OUTSIDE RECORDS SUMMARY | 2024-10-30 01:34 | XMS_ITS | Encounter Summary ---
Author Organization [facility] Address [facility] [place] [address] Care Team Providers Care Multimedia Services Coordinator Name Role Phone Curt Cassidy MD Primary Care Provider [phone] Reason for Visit * Reason Comments Medication Refill Encounter Details Date Type Department Care Team (Late st Contact Info) Description 08/13/2018 Refill Plastic Surgery at [facility] [place] [address] Ramila Mehta PA [facility] [place] [address] Social History Tobacco Use Types Packs/Day Years [...] on filedocumented in this encounter Care Teams Multimedia Services Coordinator Relationship Specialty Start Date End Date Curt Cassidy MD [address] [facility] [address] [place] [address] PCP - General 10/10/10 documented as of this encounter
--- OUTSIDE RECORDS SUMMARY | 2024-10-30 01:34 | XMS_ITS | Encounter Summary ---
Author Organization [facility] Address [facility] [place] [address] Care Team Providers Care Concert Pianist Name Role Phone Curt aCssidy MD Primary Care Provider [phone] Reason for Referral * Occupational Therapy (Routine) - Closed Specialty Diagnoses / Procedures Referred By Contac t Referred To Contact Occupational Therapy Diagnoses Rheumatoid arthritis, involving unspecified site, unspecified rheumatoid factor presence Rafael Sidhu MD [facility] [place] [place] [address] Nichol Randolph OT [facility] PHYSICAL MEDICINE & [place] [address] Referral ID Status Reason Start Date Expiration Date V isits Requested Visits Authorized [id number] Closed Evaluate and Treat 10/20/2018 10/20/2019 1 1 Encounter Details Date Type Department Care Team (Late st Contact Info) Description 10/20/2018 2:30 PM EST Office Visit Rheumatology at [place] [phone] Rafael Sidhu MD [facility] [place] [address] Edema, unspecified type; Rheumatoid arthritis, involving unspecified site, unspecified rheumatoid [...] Sign Reading Time Taken Comments Blood Pressure 159/79 10/20/2018 1:26 PM EST Pulse 94 10/20/2018 1:26 PM EST Temperature 36.7 ??C (98.1 ??F) 10/20/2018 1:26 PM ES T Respiratory Rate - - Oxygen Saturation 98% 10/20/2018 1:26 PM EST Inhaled Oxygen Concentration - - Weight 83.9 kg (185 lb) 10/20/2018 1:26 PM EST Height 149.5 cm (4' 10.86) 10/20/2018 1:[address] Body Mass Index 37.55 10/20/2018 1:26 PM EST documented in this encounter Patient Instructions * Patient Instructions* Rafael Sidhu MD - 10/20/2018 2:30 PM EST 1. Stay on medications 2. Return in 1 year 3. 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 Typically getting labs through Dr. Cassidy at [facility]. Her more recent treatments (last 5 years) include having received RTX 1000 mg every 3 months in 2011. In January 2013, she had a very complicated admission for what sounds like pyomyositis/cellulitis of left lower extremity with MRSA that eventually resolved. She had failed TNF antagonists in the past. She stopped her Arava after that time and has only been taking prednisone 10 mg/d and was flaringat that time. We decided to start her on Tofacitinib 5 mg bid along with doxycycline 100 mg day forrecurrent LE cellulitis. Her CRP was 9 at that time. Tofacitinib caused nausea so Actemra was attempted beginning 11.20.2013. At last visit in January not doing well, so that increase to 8 mg/kg was recommended and she was then [...] lobe nodule. Consider follow-up low-dose non-contrast chest CT limited to between the nando and diaphragm in one year. ?? Interval History: She comes in today in 1 year follow up: It has been eventful includin. Septic s/p L elbow arthroplasty for progressive and retractable pain at an outside facility 01/23/2018, complicated by post-operative hematoma requiring multiple operative debridements??followed byIV and oral antibiotics. ??Operative cultures in February grew a sensitive Enterobacter cloacae, and repeat cultures in April grew an oxacillin-resistant Staph epi; in totality, she was treated with an unknown IV antibiotic, followed by cephalexin, then ciprofloxacin for 10 days, then IV ertapenem which she was on at the time of admission here, 05/28. Here, following wound exploration and debridement (with retention of well-fixed underlying hardware), with negative operative cultures, she was managed initially with meropenem, transitioning to oral antibiotics 05/31 for correction suppression with Bactrim given retained hardware of artificial elbow. Skin grafted. Today, she reports the elbow feels 'pretty good' She has decided she does not want any more joint operations at the current time. RA seems stable with pain and swelling in feet and hands have developed progressive ulnar deformity. Still on leflunomide and Prednisone tapered back down to 7.5 mg.d Breathing okay at rest,desaturates with any activity and at night Had dobutamine stress test today and PFTs today, Worse shoulder pain and range of motion on left. Problem List: 1. RF+ (CIS result) rheumatoid [...] doses, transitioned to sub cutaneous weekly in 2. RLE edema 10. Extensive/NEGATIVE workup (02/2007) [...] Recurrent cellulitis - LE 17. Followed by ID - Hibiclens wash weekly, in 2009. Much less at f/u in .10. Left 5th big toe infection, not clearly osteomyelitic vs cellulitis with RA. 4. DXA ([facility] 2004: -1.3 SD low at spine; 1 [...] 04/25/01 showing lateral and medial meniscal tears Physical exam reveals a chronically ill-appearing overweight white female not Cushingoid She is in a wheelchair and speaks in complete sentences without oxygen Blood pressure 159/79, pulse 94, temperature 36.7 ??C (98.1 ??F), temperature source Oral, height 149.5 cm (4' 10.86), weight 83.9 kg (185 lb), SpO2 98 %. Skin: numerous scars including graft left UE. 3+ edema. Neck: little or no motion Joint exam Shoulders: decreased abduction left shoulder, right not tested due to pain. Elbows: no active synovitis. Left elbow moves without pain Wrists unimpressive for synovitis, but motion poor Bilateral CMC tenderness. Hands: SJC/TJC: 6/6 in hands alone, modest synovitis. Progressive volar and ulnar deviation of MCP. Her left TKR is well healed and there is diffuse swelling to the dorsum of the foot. Ankles: tender without warmth. Feet: MTP joints tenderr. Impression: Persistent active RA who has failed every agent but with numerous comorbitidies maintained on prednisone/Arava with the added complication of chronic left prosthetic elbow infection seemingly stable now with need for lifelong Bactrim. Deformities progressing, she needs attention by OT Plan: 1. Refer OT 2. Note to re edema 3. F/u 6-12 months Or prn Level 5 F/u visit Rafael Sidhu M.D. Staff Ophthalmic Pathologist documented in this encounter Plan of Treatment Scheduled Referrals Name Type Priority Associated Diagnoses Orde r Schedule Referral to Occupational Therapy Outpatient Referral Routine Rheumatoid arthritis, involving unspecified site, unspecified rheumatoid factor presence Ordered: 10/20/2018 documented as of this encounter Visit Diagnoses Diagnosis Edema, unspecified type Rheumatoid arthritis, involving unspecified site, unspecified rheumatoid factor presence documented in this encounter Care Teams Concert Pianist Relationship Specialty Start Date End Date Curt Cassidy MD [address] [facility], [facility] [address] [place] [address] PCP - General 10/10/10 documented as of this encounter
--- OUTSIDE RECORDS SUMMARY | 2024-10-30 01:34 | XMS_ITS | Encounter Summary ---
Author Organization [facility] Address [facility] [address] [place] [address] Care Team Providers Care Civil Engineering Technician Name Role Phone Curt Cassidy MD Primary Care Provider [phone] Encounter Details Date Type Department Care Team (Late st Contact Info) Description 07/14/2018 Orders Only [place] [address] Olivia Snow MD [facility] [place] [address] 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, 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; Medication monitoring encounter Social History Tobacco Use Types Packs/Day [...] as of this encounter Results * (ABNORMAL) Comprehensive metabolic panel (non-fasting) (07/16/2018 11:09 AM EDT) Glucose 53(Critic al) 65 - 199 mg/dL [facility] Comment: Called by: ROLANDO, Read back by: Leta Carter, Date/Time:07/16/18 12:22. Diabetes: >=200 mg/dL plus symptoms Blood Urea Nitrogen 11 8 - 18 mg/dL [facility] Creatinine 0.88 0.70 - 1.20 mg/dL [facility] Sodium 142 135 - 145 mmol/L [facility] Potassium 4.2 3.5 - 5.0 mmol/L [facility] Comment: Please note: ??Patients with WBC >100,000 may have falsely elevated Potassium levels. ??For accurate Potassium quantification in these patients send serum separator tube (gold top) for subsequent determinations. ??Contact the Clinical Chemistry Laboratory if there are any questions. Chloride 101 98 - 107 mmol/L [facility] Carbon Dioxide 27 22 - 31 mmol/L [facility] Anion Gap 14 5 - 15 mmol/L [facility] Calcium 9.4 8.5 - 10.5 mg/dL [facility] Protein, Total 7.7 6.1 - 8.0 gm/dL [facility] Albumin 4.4 3.2 - 5.2 gm/dL [facility] Aspartate Aminotransferase 25 0 - 30 unit/L [facility] Alanine Aminotransferase 25 0 - 30 unit/L [facility] Alkaline Phosphatase 119(H) 40 - 104 unit/L [facility] Bilirubin, Total 0.2 0.2 - 1.3 mg/dL [facility] Est Glomerular Filtration Rate 71 >=60 mL/min/1. 73 m?? [facility] Comment: The eGFR was calculated using the CKD-EPI equation. As with all creatinine based estimates of kidney function, eGFR values calculated with the CKD-EPI equation are not accurate in patients with acute kidney failure, extremes of body mass or the acutely ill. http://[employer]/[facility] [place] [place] eGFR 83 >=60 mL/min/1. 73 m?? [facility] Comment: The eGFR was calculated using the CKD-EPI equation. As with all creatinine based estimates of kidney function, eGFR values calculated with the CKD-EPI equation are not accurate in patients with acute kidney failure, extremes of body mass or the acutely ill. http://[employer]/[facility] [place] [place] Blood specimen (specimen) 07/16/2018 11:09 AM EDT 07/16/2018 11:33 AM EDT Narrative Resulting Agency Comment Spec In Lab Azael Palm MD CHEMISTRY ORDERA ANDREW [facility] [place] [address] documented in this encounter Visit Diagnoses Diagnosis 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, 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 Medication monitoring encounter Encounter for therapeutic drug monitoring documented in this encounter Care Teams Civil Engineering Technician Relationship Specialty Start Date End Date Curt Cassidy MD [address] [facility], [address] [place] [address] PCP - General 10/10/10 documented as of this encounter
--- OUTSIDE RECORDS SUMMARY | 2024-10-30 01:34 | XMS_ITS | Encounter Summary ---
Author Organization [facility] Address [facility] [place] [address] Care Team Providers Care Life Science Taxonomist Name Role Phone Curt Cassidy MD Primary Care Provider [phone] Reason for Visit * Reason Onset Date Comments Medication Refill 06/20/2018 Encounter Details Date Type Department Care Team (Late st Contact Info) Description 06/20/2018 [place] [address] Rafael Sidhu MD [facility] [place] [address] Social History Tobacco Use Types Packs/Day Years [...] on filedocumented in this encounter Care Teams Life Science Taxonomist Relationship Specialty Start Date End Date Curt Cassidy MD [address] [facility], [facility] [address] [place] [address] PCP - General 10/10/10 documented as of this encounter
--- OUTSIDE RECORDS SUMMARY | 2024-10-30 01:34 | XMS_ITS | Encounter Summary ---
Author Organization [facility] Address [facility] [place] [address] Care Team Providers Care Die Maker Bench Stamping Name Role Phone Curt Cassidy MD Primary Care Provider [phone] Reason for Visit * Reason Comments Sicca Syndrome (Sjogren's) Encounter Details Date Type Department Care Team (Latest Contact Info) Description 08/27/2018 1:00 PM EDT Office [place] [address] Azael Espinosa MD [facility] [place] [address] Sjogren's syndrome with keratoconjunctivitis sicca; Seronegative rheumatoid arthritis Social History Tobacco Use Types Packs/Day Years [...] this encounter Patient Instructions * Patient Instructions* Azael Espinosa MD - 08/27/2018 1:00 PM EDT Medications: Use eye medications as instructed by Dr. Espinosa during your appointment. For non eye medications not prescribed by the Ophthalmology (Eye) Clinic, please follow up with your PCP (primary care provider) for instructions. Driving: Wait until your vision has returned to normal baseline after your eye visit before driving. Changes in vision or eyes: Please call the eye clinic, , for any significant changes invision, new flashes or floaters or eye pain Eye safety is important: please use eye protection during any activities in which you could injury your eyes. documented in this encounter Progress Notes * Azael Espinosa MD - 08/27/2018 1:00 PM EDT Encounter Diagnoses Name Primary? Sjogren's syndrome with keratoconjunctivitis sicca ??? Seronegative rheumatoid arthritis Marla Denton is a 62 y.o. 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 -Upon Return epf documented in this encounter Plan of Treatment Not on file documented as of this encounter Visit Diagnoses Diagnosis Sjogren's syndrome with keratoconjunctivitis sicca Seronegative rheumatoid arthritis Rheumatoid arthritis documented in this encounter Care Teams Die Maker Bench Stamping Relationship Specialty Start Date End Date Curt Cassidy MD [address] [facility], [facility] [address] [place] [address] PCP - General 10/10/10 documented as of this encounter
--- OUTSIDE RECORDS SUMMARY | 2024-10-30 01:34 | XMS_ITS | Encounter Summary ---
Author Organization [facility] Address [facility] [place] [address] Care Team Providers Care Blind Lacer Name Role Phone Curt Cassidy MD Primary Care Provider [phone] Encounter Details Date Type Department Care Team (Late st Contact Info) Description 07/16/2018 Orders [place] [id number] Yossi Carter RN Electrolyte abnormality; Other abnormal glucose Social History Tobacco Use Types Packs/Day Years Used Date Smoking Tobacco: Never Smokeless Tobacco: Never Alcohol Use Standard Drinks/Week Comments No 0 (1 standard drink = 0.6 oz pur e alcohol) Sex and Gender Information Value Date Recorded Sex Assigned at Not on file Gender Identity Not on file Sexual Orientation Not on file documented as of this encounter Progress Notes * Yossi Carter RN - 07/16/2018 12:36 PM EDT Critical Lab value for glucose (=53 mg/dL) called in by copier technician (@12:21, by Sea Palmer). RN sentpage to Dr. Olivia Snow, per MD verbal order for lab add-on to re-run/verfiy blood glucose level (entered into e-DH). RN called patient to check up and left voicemail to to have her call us back when arrives home. Add-on resulted (@13:42) blood glucose = 55 mg/dL. Dr. Olivia Snow paged with result/confirmed via telephone. Plan: Follow up with patient over phone Discuss signs/symptoms of low blood sugar vs high blood sugar documented in this encounter Plan of Treatment Not on file documented as of this encounter Visit Diagnoses Diagnosis Electrolyte abnormality Electrolyte and fluid disorders not elsewhere classified Other abnormal glucose documented in this encounter Care Teams Blind Lacer Relationship Specialty Start Date End Date Curt Cassidy MD [address], [place] [address] PCP - General 10/10/10 documented as of this encounter
--- OUTSIDE RECORDS SUMMARY | 2024-10-30 01:34 | XMS_ITS | Encounter Summary ---
Author Organization [facility] Address [facility] [address] [facility] [place] [place] [address] Care Team Providers Care Senior Managing Director Name Role Phone Curt Cassidy MD Primary Care Provider [phone] Reason for Visit * Reason Comments Follow Up Surgery left elbow arthrotom y Encounter Details Date Type Department Care Team (Late st Contact Info) Description 06/10/2018 9:20 AM EDT Office [place] [address] Pushpa Sullivan APRN [facility] [address] Surgery follow-up Social History Tobacco Use Types Packs/Day Years [...] this encounter Patient Instructions * Patient Instructions* Pushpa Sullivan APRN - 06/10/2018 9:20 AM EDT Follow up: 1 month May shower in 24 hours Gently wash over all areas with soap and water, pat dry. Allow time to air dry. Apply Aquaphor once daily to left thigh donor site, skin graft, and elbow flap incisions. Keep surgical sites covered, until there is no drainage, no scab, and all areas are dry and healed. Keep arm in sling until your visit in Orthopedics in 2 days. documented in this encounter Progress Notes * Pushpa Sullivan APRN - 06/10/2018 9:20 AM EDT Plastic Surgery Post Op Note Reason for visit: F/U status post procedure Date of surgery: 05/28/18 Procedure(s): debridement, pedicled forearm flap for closure of left elbow wound, STSG from left thigh to forearm donor site. Complications: None reported HPI: Pt reports she has felt weak and tired since leaving the hospital. Her PCP is managing her Coumadin. She arrives with her sister and daughter. She notes some left wrist pain but feels this may be due to her RA. She has been wearing an arm sling since surgery. Drain output has been very low since her discharge. The drains have not been emptied in several days. Examination: Patient is alert, conversant, comfortable, ambulating. Wearing arm sling Flap warm and well perfused Inset incision: CDI, healing well. Pepito removed today. Drains removed today. Dried old blood in bulbs. No collection, no erythema, no evidence of cellulitis. Skin graft healing well. Skin graft donor site 85% epithelialized. Impression: Marla Denton is a 62 y.o. female who was seen today for follow- up after the above procedure. Please see the operative note for details. Flap healing well. Plan: Follow up: 1 month May shower in 24 hours Gently wash over all areas with soap and water, pat dry. Allow time to air dry. Apply Aquaphor once daily to left thigh donor site, skin graft, and elbow flap incisions. Keep surgical sites covered, until there is no drainage, no scab, and all areas are dry and healed. Keep arm in sling until your visit in Orthopedics in 2 days. If OK from an Orthopedic standpoint, may being ROM after this appointment. I, Batsheva Scales, have performed the documentation for this encounter in the presence of and actingas a scribe for Dr. Castro. I performed the services which were documented by the scribe, and I agree with the accuracy of the documentation in this encounter. ERNA CASTRO MD documented in this encounter Plan of Treatment Not on file documented as of this encounter Visit Diagnoses Diagnosis Surgery follow-up Follow-up examination, following unspecified surgery documented in this encounter Care Teams Senior Managing Director Relationship Specialty Start Date End Date Curt Cassidy MD [address], [address] [address] PCP - General 10/10/10 documented as of this encounter
--- OUTSIDE RECORDS SUMMARY | 2024-10-30 01:34 | XMS_ITS | Encounter Summary ---
Author Organization [facility] Address [facility] [place] [address] Care Team Providers Care Ager Tender Name Role Phone Curt Cassidy MD Primary Care Provider [phone] Reason for Visit * Auth/Cert Specialty Diagnoses / Procedures Referred By Contac t Referred To Contact Diagnoses elbow wound Procedures PRO EXPLORE/DRAIN ELBOW FOR INFECT PRO MUSCLE-SKIN FLAP, ARM PRO SPLIT GRFT TRUNK, ARM, LEG <100SQCM ARTHROTOMY, ELBOW, EXPLORATION, DRAINAGE, OR REMOVAL FB (WRVU 6.08) Referral ID Status Reason Start Date Expiration Date Visits Re quested Visits Authorized [id number] 1 1 Encounter Details Date Type Department Care Team (Latest Contact Info) Description 05/28/2018 9:57 AM EDT - 06/03/2018 3:48 PM EDT Hospital Encounter [address] [place] [address] Lorie Fuller MD [facility] [place] [address] Erna Castro MD [facility] [place] [address] Anticoagulated on Coumadin Discharge Disposition: Home with VNA Social History Tobacco Use Types Packs/Day Years [...] Sign Reading Time Taken Comments Blood Pressure 159/74 06/03/2018 11:58 AM EDT Pulse 71 05/28/2018 8:13 PM EDT Temperature 36.7 ??C (98.1 ??F) 06/03/2018 11:58 AM E DT Respiratory Rate 16 06/03/2018 11:58 AM EDT Oxygen Saturation 94% 06/03/2018 11:58 AM EDT Inhaled Oxygen Concentration - - Weight 80.7 kg (178 lb) 05/28/2018 10:41 AM EDT Height 149.9 cm (4' 11) 05/28/2018 8:13 PM EDT Body Mass Index 35.95 05/28/2018 10:41 AM EDT documented in this encounter Discharge Summaries * Ramila Mehta PA - 06/03/2018 4:22 AM EDT Plastic Surgery Service Inpatient Discharge Summary Patient Name: Marla Denton Patient Age: 62 y.o. : 1955 Attending Physician: Erna Castro MD Date of Admission: 05/28/2018 Date of Discharge: Code Status: 06/03/2018 Full Code Primary Diagnosis: Active Hospital Problems Diagnosis ? ? S/P left elbow I&D, radial forearm flap (plastics) for dehiscence over TEA 05/28/18 Dr. Fuller ??? Elbow wound, left, 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 Resolved Hospital Problems Diagnosis Date Resolved No resolved problems to display. History: History obtained through patient interview, review of relevant records, and/or discussion with referring provider. Marla Denton is a 62 y.o. female here in consultation at the request of Radha Muller APRN for evaluation of left elbow wound. She is s/p left elbow replacement on 01/23/[address] [place], this was complicated by hematoma postoperatively. Approximately three weeks after her initial surgery the hematoma was evacuated. A wound vac was placed on March [address] Martinez. She notes that she was not bridged off her coumadin for her initial surgery. She reports some paresthesias in the ulnar distribution of her hand since surgery. She feels her left small finger may be dislocated, she believes she caught it on something. She arrives today via ambulance from [facility]. ?? She is immunosuppressed on Prednisone and is taking Coumadin after a history of pulmonary embolism. We discussed options for treatment of this contaminated wound, I advised her that her health issuesand immunosuppressed status makes surgical treatment challenging. The hardware will likely need to be removal and a soft tissue flap brought in to close the area. We discussed that the wound may not heal without removal of the implant. I spoke with Dr. Mac Mcgill who has been following her for this issue and he will reach out to Dr. Fuller in Orthopaedics regarding her care. At this time, We recommend wound closure with Dr. Castro and left elbow exploration I and D with . Past Medical History Past Medical History: Diagnosis Date ??? Allergic state ??? Arthritis ??? Elbow wound, left, initial encounter 04/28/2018 ??? Hypertension ??? Sjogren's syndrome ??? Thyroid disease Past Surgical History Past Surgical History: Procedure Laterality Date ??? CERVICAL FUSION ??? HAND TENDON SURGERY ??? HYSTERECTOMY, TOTAL ABDOMINAL ??? PRO EXPLORE/DRAIN ELBOW FOR INFECT Left 05/28/2018 ARTHROTOMY, ELBOW, EXPLORATION, DRAINAGE, OR REMOVAL FB (WRVU 6.08) performed by Lorie Fuller MD at [facility] MAIN OR ??? PRO MUSCLE-SKIN FLAP, ARM Left 05/28/2018 FLAP, MYOCUTANEOUS OR FASCIOCUTANEOUS, UPPER EXTREMITY (WRVU 17.04) performed by Erna Castro MD at [facility] MAIN OR ??? PRO REVISE ULNAR NERVE AT ELBOW Left 05/28/2018 NEUROPLASTY &/OR TRANSPOSITION, ULNAR NERVE AT ELBOW (WRVU 7.26) performed by Lorie Fuller MD at [facility] MAIN OR ? ? PRO SPLIT GRFT TRUNK, ARM, LEG <100SQCM N/A 05/28/2018 SPLIT THICK SKIN GRAFT,100 SQ CM OR LESS, ARMS (WRVU 9.9) performed by Erna Castro MD at [facility] MAIN OR ??? PRO TOTAL KNEE ARTHROPLASTY 11/02/2013 @TOTAL KNEE ARTHROPLASTY performed by Mayco Montanez Jr., MD at [facility] MAIN OR ??? SHOULDER SURGERY ??? TOTAL ELBOW ARTHROPLASTY Left 01/2018 Procedures: 05/28/2018 Surgeon(s) and Role: Panel 1: * Lorie Fuller MD - Primary * Misha Celaya MD - Resident-Surgeon Gideon Panel 2: * Erna Castro MD - Primary * Cristian Rodriguez MD - Resident-Surgeon Chief * Viktoriya Anthony MD: Procedure(s): ARTHROTOMY, ELBOW, EXPLORATION, DRAINAGE, OR REMOVAL FB (WRVU 6.08) FLAP, MYOCUTANEOUS OR FASCIOCUTANEOUS, UPPER EXTREMITY (WRVU 17.04) SPLIT THICK SKIN GRAFT,100 SQ CM OR LESS, ARMS (WRVU 9.9) NEUROPLASTY &/OR TRANSPOSITION, ULNAR NERVE AT ELBOW (WRVU 7.26) Hospital Course: Marla Denton was admitted to the Plastic Surgery Service on 05/28/2018 for left elbow I&D (orthopedic surgery) and wound closure w/myocutaneous flap (plastic surgery). On 05/28/18 she was taken to the operating room where the above procedures were performed. She tolerated the operation well and there were no apparent complications. She was admitted post-operatively for observation and management. Her hospital stay was uncomplicated but required close detail to anticoagulation managment. Marla Denton was tolerating regular diet, ambulating and voiding without difficulty, afebrile with stable vital signs, and her pain was well controlled on oral pain medications when she was deemed ready for discharge on 06/03/2018. Updated Allergies/ADRs: Allergies Allergen Reactions ??? Infliximab Anaphylaxis and Other (See Comments) throat swelling,chest heaviness ??? Iodinated Contrast- Oral And Iv Dye Anaphylaxis ??? Iodine And Iodide Containing Products Anaphylaxis ??? Vancomycin Anaphylaxis ??? Wellbutrin [Bupropion Hcl] Other (See Comments) Causes retless leg syndrome ??? Ms Contin [Morphine] ??? Sulfa (Sulfonamide Antibiotics) Tolerates Bactrim ??? Sulfisoxazole ??? Sulfisoxazole Acetyl Unknown Condition at Discharge: Stable Important Studies and Lab Data: Labs: Recent Labs 06/03/18 1355 06/03/18 0351 06/02/18 1052 06/02/18 1041 06/01/18 1052 WBC 12.8* 13.1* -- 14.7* -- HGB 8.1* 7.5* -- 7.9* 9.9* HCT 24.5* 23.2* -- 23.9* 30.1* PLATELET 364* 327 -- 304 -- PT -- -- 11.1 -- -- INR -- -- 1.0 -- -- PTT -- -- 28 -- -- Recent Labs 06/02/18 1041 NA 139 K 4.3 CL 95* CO2 29 BUN 17 CREATININE 1.08 GLUCOSE 154 CALCIUM 8.9 Discharge Examination: Last value Range last 12 hrs Temperature Temp: 36.7 ??C (98.1 ??F) Temp: [36.7 ??C (98.1 ??F)] Heart Rate Heart Rate: 71 Heart Rate: -- Blood Pressure BP: 159/74 BP: (126-159)/(73-74) Respiratory Rate Resp: 16 Resp: [16] SpO2 SpO2: 94 % SpO2: [93 %-94 %] General: resting comfortably in bed, in no acute distress. Arm slightly elevated and in sling Respiratory: Symmetric chest movement L elbow: no fluid collection in arm, dressing c/d/i Drain output (cc): L ant elbow: 0 L post elbow: 1 L distal elbow: 2 Discharge to: Home, with VNA assistance Discharge Medications: The following medications have been prescribed for you. If you notice any adverse reactions to your medications, please contact your primary care physician immediately or go tothe nearest Emergency Department. Your Medications New Medications Dose Details enoxaparin 120 mg/0.8 mL Syrg Commonly known as: LOVENOX Inject 0.8 mLs subcutaneously nightly for 4 days. 120 mg Quantity: 3.2 mL Refills: 0 oxyCODONE 5 mg Tab Commonly known as: ROXICODONE Take 2 tablets by mouth every 6 hours as needed for Pain (For pain level greater than 5/10). 10 mg Quantity: 20 tablet Refills: 0 sulfamethoxazole-trimethoprim 800-160 mg Tab Commonly known as: BACTRIM DS Take 1 tablet by mouth 2 times daily for 35 days. 1 tablet Quantity: 60 tablet Refills: 1 Continued medications with new dosing Dose Details doxepin 50 mg Cap Commonly known as: SINEquan Take 1 capsule by mouth daily. What changed: how much to take 50 mg Refills: 0 gabapentin 300 mg Cap Commonly known as: NEURONTIN Take 2 capsules by mouth 2 times daily. Take at 0900 and 1400 daily. What changed: - when to take this - additional instructions 600 mg Refills: 0 vitamin D 50,000 unit Cap 40901 unit, PO, once a month Generic drug: ergocalciferol What changed: See the new instructions. Refills: 0 Continued medications, unchanged Dose Details ACTONEL ORAL Take by mouth. Refills: 0 acyclovir 800 mg Tab Commonly known as: ZOVIRAX TAKE ONE TABLET BY MOUTH ONCE DAILY Quantity: 90 tablet Refills: 1 albuterol 90 mcg/actuation Hfaa Inhale 2 puffs into the lungs every 4 hours as needed for Wheezing. Use with spacer 2 puff Quantity: 1 Inhaler Refills: 5 alendronate 70 mg Tab Commonly known as: FOSAMAX Take 1 tablet by mouth every 7 days. Take in AM with full glass of water, on an empty stomach. Do not lie down for 30 min. 70 mg Quantity: 12 tablet Refills: 3 atorvastatin 20 mg Tab Commonly known as: LIPITOR Take 20 mg by mouth daily. 20 mg Refills: 0 budesonide-formoterol 160-4.5 mcg/actuation Hfaa Commonly known as: SYMBICORT Inhale 1 puff into the lungs 2 times daily. 1 puff Quantity: 1 Inhaler Refills: 12 Carboxymethylcellulose Sodium 0.25 % Dpet Place 1 drop into both eyes 6 times daily. 1 drop Refills: 0 cyclobenzaprine 10 mg Tab Commonly known as: FLEXERIL Take 10 mg by mouth 3 times daily as needed. 10 mg Refills: 0 diphenhydrAMINE 25 mg Cap Commonly known as: BENADRYL Take 1 capsule by mouth every 6 hours as needed for Itching (Patient requests to take this the sametime as the Methadone). 25 mg Refills: 0 docusate sodium 100 mg Cap Commonly known as: COLACE Take 100 mg by mouth 2 times daily. 100 mg Refills: 0 leflunomide 20 mg Tab Commonly known as: ARAVA 1 t daily Quantity: 90 tablet Refills: 3 levothyroxine 125 mcg Tab Commonly known as: SYNTHROID Take 125 mcg by mouth daily. 125 mcg Refills: 0 methadone 10 mg Tab Commonly known as: DOLOPHINE 20 MG in the AM, 10 MG at NOON, 20 MG in the PM. Refills: 0 MIRALAX 17 gram Pwpk Take 17 g by mouth daily. Generic drug: polyethylene glycol 17 g Refills: 0 multivitamin Tab Commonly known as: THERAGRAN Take 1 tablet by mouth daily. 1 tablet Refills: 0 predniSONE 5 mg Tab Commonly known as: DELTASONE Take 7.5 mg by mouth daily. 7.5 mg Refills: 0 senna 8.6 mg Tab Commonly known as: SENOKOT Take by mouth daily. Refills: 0 VITAMIN C ORAL Take by mouth. Refills: 0 warfarin 5 mg Tab Commonly known as: COUMADIN Take 5-7.5 mg by mouth daily. 5-7.5 mg Refills: 0 zolpidem 10 mg Tab Commonly known as: AMBIEN Take 1 tablet by mouth nightly as needed. 10 mg Refills: 0 STOPPED Medications doxycycline 100 mg Cap Commonly known as: VIBRAMYCIN Ertapenem 1 gram Solr linezolid in dextrose 5% 600 mg/300 mL Solp Commonly known as: ZYVOX PROBIOTIC ORAL Narcotics: Opioid PDMP 05/15/2018 05/15/2018 [place] Query [place] 06/03/2018 05/15/2018 [place] Query Date - 05/15/2018 [place] QUERY DATE: 06/03/18 Risk Assessment Category: Vern Stonel is getting a prescription opioid for the treatment of acute post-operative pain related to the surgical procedure during this encounter. Pt has been advised to take the smallest dose possible to control pain and as the pain improves to take smaller doses and increase the time between doses. In addition to this medication, pt was educated on the non-opioid pain medications that can be taken for adjunct treatment of pain. Non-pharmacological treatments were also discussed that include but not limited to ice, elevation, and activity modification as appropriate. The Acute Opioid Therapy Informed Consent form has been completed during this encounter and sent tomedical records for scanning to chart. Follow-up Care & Plans: To make an appointment or for questions about scheduling, please contact our administrative offices at [phone]. For clinical questions, please call our nurses at [phone]. Both offices are open Saturday thru Saturday 8a - 5p. With emergencies after hours, call the hospital intermodal owner operator truck driver at [phone] and ask for the Plastic Surgery Resident professional skateboarder. Scheduled Appointments: Future Appointments Date Time Provider Department Center 06/10/2018 9:20 AM Pushpa Sullivan APRN [facility] 06/12/2018 2:20 PM Laura Lofton PA [facility] 08/27/2018 1:00 PM Azael Espinosa MD [facility] 10/03/2018 2:00 PM PFT TEST MH PFT [facility] 10/03/2018 3:00 PM Zaki Galdamez MD [facility] Pul[facility] Outpatient Services/Studies: Referral to Home Health - at DISCHARGE Order Comments: DOCUMENTATION FOR VNA SERVICES (INCLUDING THOSE PATIENTS WITH MEDICARE COVERAGE REQUIRING HOME VNA SERVICES AND/OR HOSPICE SERVICES) PATIENT'S LOCATION: Marla Denton [address] [place] [address] Dr Grecia Werner [facility] [address] (home) Cell: No relevant phone numbers on file. Real Estate Specialist's Name: self and sister In discussion with the attending physician, it is certified that this patient is under their care and that they, or a Nurse Practitioner,Clinical Nurse specialist or Physician Vision Therapist who is working directly with them, had a face to face encounter that meets the physician face to face encounter requirements with this patient on 05/30/2018 The encounter with the patient was in whole, or in part, for the following medical condition, whichis the primary reason for home health care services: s/p L elbow I and D and radial forearm flap - STSG In discussion with the provider, it is certified that, based on their findings, the following services are medically necessary for home health services. To provide the following care/treatments with the clinical findings supporting the need for services as follows: HOME CARE ORDERS: RN ORDERS:Assess wound or incision, vital signs, cardiopulmonary status, nutrition, hydration, elimination, meds effectiveness and management. Labs- ProTime drawn in the morning on 06/06 per MD. Send information to PCP: Dr. Cassidy. Thank you PT ORDERS: Continue rehab for endurance, gait stability and strength with mobility and transfers. Home safety evaluation. OT: assess and continue rehab for managing ADL's and evaluate need for CERTIFIED MAINTENANCE WELDER as appopriate HOME HEALTH CARE AGENCY: [facility] PHONE: [phone] FAX: [phone] Start of care: 24-48 hrs FOR MEDICARE ONLY: (please delete this section if not Medicare) In discussion with the attending physician, it is certified that the clinical findings support thatthis patient is homebound because absences from home require considerable and taxing effort due to:inability to use left arm Please note that any additional orders needs or changes will need to be obtained from this patient's PCP: Curt Cassidy MD [address] [place] [address], [address] [address] All VNA agencies which cover the area of patient's residence have been reviewed, either verbally john writing, and patient/family have chosen the home health care agency noted Question Response Notes Agency name and contact information [facility] Patient location post discharge home What services are requested Registered Nurse What services are requested Physical Therapy What services are requested Occupational Therapy What services are requested Home Health Aide Responsible MD post discharge contact info PCP Instructions Given to Patient at Discharge: Patient Instructions What to Expect.... The healing process varies with each person. 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 We will prescribe medicine for pain. You should take the medicine as prescribed and only as needed. We recommend taking an xqug-rlg-Hwkwutp stool softener, such as Colace (docusate) or a gentle laxative while taking your narcotic pain reliever. This will help to maintain bowel regularity and prevent straining. Drink plenty of water. You may have nerve pain after your surgery because the nerve endings have been disturbed. Nerve pain may feel like a burning sensation, itching or a shooting, electric shock pain. This is normal and will get better as you heal. DO NOT use ice or heat on your incisions. Your ability to feel hot or cold at the incision will be abnormal for several months. Coumadin (take medication in the evening) Management after Discharge Reason for anticoagulation therapy: History of multiple PEs INR Goal: Radha followed by PCP, Dr. Cassidy Your Coumadin?? (warfarin) dosing instruction upon discharge is: -Continue therapeutic lovenox until your follow-up with your PCP, Dr. Cassidy. In addition, start coumadin at the following doses: -Take 2.5 mg on Sat, Sat, , Thurs -Take 5mg on Mon, Sat, -Have VNA take ProTime draw blood early Wednesday 06/06 so that results can be sent to your PCP, Dr. Cassidy. -Dr. Cassidy will then call you to follow-up with recommendations/medication adjustments -If you have not heard from Dr. Cassidy by 4pm on Wednesday 06/06, Please give his office a call: Your next INR is scheduled on: This Saturday am draw by VNA - results go to PCP Provider/Team responsible for your outpatient Coumadin?? (warfarin) management: PCP ??? If you have not received a call from your provider, by 4pm, after having your INR drawn, pleasecall for further dose instructions. ??? If you are taking Lovenox?? (enoxaparin) injections, continue taking until instructed to stop. (You will be taking this medication until your INR is in the therapeutic range.) It is very important that you have your PT/INR checked regularly as your dose may change based on your lab values. Expected duration of treatment: Per PCP Antibiotic -Remain on Bactrim. Discuss duration at Infectious Disease appointment in 4 weeks. Swelling Moderate bruising and swelling is normal in the first few weeks after surgery. The swelling will gradually go down, but it may remain for 3 to 6 months. To help with swelling keep arm elevated on pillow when resting and in sling at all times. Drains Note: When each drain is draining 30ml or less in a 24 hour period for 2 days in a row you may callthe Clinic for a nurse appointment for drain removal. Drain removal is usually not painful and onlytakes a few seconds. The nurses will show you how to care for the drains. Showering Do not shower. Sponge bath until next visit. Incisions/Dressings You may have some red, pink, yellow/clear drainage from your incisions for the first 1-2 weeks. Change dressings as needed. Dressing instruction: -Skin graft (left arm): Every other day dressing changes with adaptic and cover with gauze until f/u in clinic. Do not wash between dressing changes. -Skin graft donor site (leg): Leave pink dressings on and dry until your follow- up next week. -Maintain arm in arm sling - will be reevaluate at follow-up appointment. Activity (???If it hurts, don???t do it?? ) Do not drive while you are on a narcotic pain reliever or if driving causes you pain. -Maintain arm in arm sling -May use hand as tolerated while in sling, no heavy lifting or pulling Complications Call your doctor with the following signs of a problem: a temperature over 100.4 F or 38 C redness at the incision line that spreads away from the incision after the first 48 hours thick yellow, foul smelling drainage increasing pain that is not relieved by your pain medicine Contact your Doctor To make an appointment or for questions about scheduling, please contact our administrative officesat [phone] For clinical questions, please call our nurses at [phone] Both offices are open Saturday thru Saturday 8a - 5p. With emergencies after hours, call the hospital intermodal owner operator truck driver at [phone] and ask for the Plastic Surgery Resident professional skateboarder. General Instructions None Future Appointments and Orders Future Appointments Provider Department Dept Phone 06/10/2018 9:20 AM Pushpa Sullivan APRN [facility] [phone] 08/27/2018 1:00 PM Azael Espinosa MD [facility] [phone] 10/03/2018 2:00 PM PFT TEST [facility] [phone] 10/03/2018 3:00 PM Zaki Galdamez MD [facility] [phone] Future Orders Complete By Expires Referral to Home Health - at DISCHARGE [ASP8796 CPT(R)] As directed Process Instructions: Scheduling Instructions: Comments: DOCUMENTATION FOR VNA SERVICES (INCLUDING THOSE PATIENTS WITH MEDICARE COVERAGE REQUIRING HOME VNA SERVICES AND/OR HOSPICE SERVICES) PATIENT'S LOCATION: Marla Denton [address] [place] [address] [address] [address] (home) Cell: No relevant phone numbers on file. Real Estate Specialist's Name: self and sister In discussion with the attending physician, it is certified that this patient is under their care and that they, or a Nurse Practitioner,Clinical Nurse specialist or Physician Vision Therapist who is working directly with them, had a face to face encounter that meets the physician face to face encounter requirements with this patient on 05/30/2018 The encounter with the patient was in whole, or in part, for the following medical condition, whichis the primary reason for home health care services: s/p L elbow I and D and radial forearm flap - STSG In discussion with the provider, it is certified that, based on their findings, the following services are medically necessary for home health services. To provide the following care/treatments with the clinical findings supporting the need for services as follows: HOME CARE ORDERS: RN ORDERS:Assess wound or incision, vital signs, cardiopulmonary status, nutrition, hydration, elimination, meds effectiveness and management. Labs- ProTime drawn in the morning on 06/06 per MD. Send information to PCP: Dr. Cassidy. Thank you PT ORDERS: Continue rehab for endurance, gait stability and strength with mobility and transfers. Home safety evaluation. OT: assess and continue rehab for managing ADL's and evaluate need for CERTIFIED MAINTENANCE WELDER as appopriate HOME HEALTH CARE AGENCY: [facility] PHONE: [phone] FAX: [phone] Start of care: 24-48 hrs FOR MEDICARE ONLY: (please delete this section if not Medicare) In discussion with the attending physician, it is certified that the clinical findings support thatthis patient is homebound because absences from home require considerable and taxing effort due to:inability to use left arm Please note that any additional orders needs or changes will need to be obtained from this patient's PCP: Curt Cassidy MD [address] [place] [address], [facility] [id number] All VNA agencies which cover the area of patient's residence have been reviewed, either verbally john writing, and patient/family have chosen the home health care agency noted Questions: Agency name and contact information: [facility] Patient location post discharge: home What services are requested: Registered Nurse Physical Therapy Occupational Therapy Home Health Aide Start date: Responsible MD post discharge contact info: PCP Call your doctor if: Please call your doctor immediately or go to an Emergency Department if you notice worsening pain not controlled by pain medications, uncontrolled headache, vision changes, chest pain, difficulty breathing, persistent nausea and vomiting, new redness or swelling in any extremities, new onset weakness or changes in sensation, or for any fevers greater than 100.4 or 38 F. Plastic Surgery Nursing Orders: -Review BMP at follow-up appointment (Per ID) -Flap check -Drain removal when output is less than 30 ml in a 24 hr period for 2 days in a row -Suture removal -Based on flap healing, evaluate need for continued use of sling Signed: ANGELICA Cancino 06/03/2018 documented in this encounter Discharge Instructions * Patient Instructions* Ramila Mehta PA - 06/03/2018 11:43 AM EDT What to Expect.... The healing process varies with each person. 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 We will prescribe medicine for pain. You should take the medicine as prescribed and only as needed. We recommend taking an xqmi-oiz-Iuvrbyt stool softener, such as Colace (docusate) or a gentle laxative while taking your narcotic pain reliever. This will help to maintain bowel regularity and prevent straining. Drink plenty of water. You may have nerve pain after your surgery because the nerve endings have been disturbed. Nerve pain may feel like a burning sensation, itching or a shooting, electric shock pain. This is normal and will get better as you heal. DO NOT use ice or heat on your incisions. Your ability to feel hot or cold at the incision will be abnormal for several months. Coumadin (take medication in the evening) Management after Discharge Reason for anticoagulation therapy: History of multiple PEs INR Goal: Radha followed by PCP, Dr. Cassidy Your Coumadin?? (warfarin) dosing instruction upon discharge is: -Continue therapeutic lovenox until your follow-up with your PCP, Dr. Cassidy. In addition, start coumadin at the following doses: -Take 2.5 mg on Sat, Sat, , -Take 5mg on Sat, Sat, -Have [facility] take ProTime draw blood early Wednesday 06/06 so that results can be sent to your PCP, Dr. Cassidy. -Dr. Cassidy will then call you to follow-up with recommendations/medication adjustments -If you have not heard from Dr. Cassidy by 4pm on Wednesday 06/06, Please give his office a call: Your next INR is scheduled on: This Saturday am draw by [facility] - results go to PCP Provider/Team responsible for your outpatient Coumadin?? (warfarin) management: PCP ??? If you have not received a call from your provider, by 4pm, after having your INR drawn, pleasecall for further dose instructions. ??? If you are taking Lovenox?? (enoxaparin) injections, continue taking until instructed to stop. (You will be taking this medication until your INR is in the therapeutic range.) It is very important that you have your PT/INR checked regularly as your dose may change based on your lab values. Expected duration of treatment: Per PCP Antibiotic -Remain on Bactrim. Discuss duration at Infectious Disease appointment in 4 weeks. Swelling Moderate bruising and swelling is normal in the first few weeks after surgery. The swelling will gradually go down, but it may remain for 3 to 6 months. To help with swelling keep arm elevated on pillow when resting and in sling at all times. Drains Note: When each drain is draining 30ml or less in a 24 hour period for 2 days in a row you may callthe Clinic for a nurse appointment for drain removal. Drain removal is usually not painful and onlytakes a few seconds. The nurses will show you how to care for the drains. Showering Do not shower. Sponge bath until next visit. Incisions/Dressings You may have some red, pink, yellow/clear drainage from your incisions for the first 1-2 weeks. Change dressings as needed. Dressing instruction: -Skin graft (left arm): Every other day dressing changes with adaptic and cover with gauze until f/u in clinic. Do not wash between dressing changes. -Skin graft donor site (leg): Leave pink dressings on and dry until your follow- up next week. -Maintain arm in arm sling - will be reevaluate at follow-up appointment. Activity (???If it hurts, don???t do it?? ) Do not drive while you are on a narcotic pain reliever or if driving causes you pain. -Maintain arm in arm sling -May use hand as tolerated while in sling, no heavy lifting or pulling Complications Call your doctor with the following signs of a problem: a temperature over 100.4 F or 38 C redness at the incision line that spreads away from the incision after the first 48 hours thick yellow, foul smelling drainage increasing pain that is not relieved by your pain medicine Contact your Doctor To make an appointment or for questions about scheduling, please contact our administrative officesat [phone] For clinical questions, please call our nurses at [phone] Both offices are open Saturday thru Saturday 8a - 5p. With emergencies after hours, call the hospital intermodal owner operator truck driver at [phone] and ask for the Plastic Surgery Resident professional skateboarder. documented in this encounter Medications at Time of Discharge Medication Sig Dispensed Refills Start Date End Date docusate sodium (COLACE) 100 mg Capsule Take 100 mg by mouth daily. senna (SENOKOT) 8.6 mg Tablet Take by mouth daily. atorvastatin (LIPITOR) 20 mg Tablet Take 20 mg by mouth daily. Carboxymethylcellulo se Sodium 0.25 % Dropperette Place 1 drop into both eyes 6 times daily. methadone (DOLOPHINE) 10 mg Tablet Take 5-10 mg by mouth nightly. doxepin (SINEQUAN) 50 mg capsule Take 1 capsule by mouth daily. 11/05/2013 gabapentin (NEURONTIN) 300 mg capsuleIndications:N europathy Take 2 capsules by mouth 2 times daily. Take at 0900 and 1400 daily. 11/05/2013 diphenhydrAMINE (BENADRYL) 25 mg capsule Take 1 capsule by mouth every 6 hours as needed for Itching (Patient requests to take this the same time as the Methadone). 11/05/2013 ergocalciferol (VITAMIN D) 50,000 unit capsule [id number] unit, PO, once a month 10/23/2010 budesonide-formotero L (Symbicort) 160-4.5 mcg/actuation HFA Aerosol Inhaler SYMBICORT 160-4.5 MCG/ACT AERO 04/22/2017 11/05/2022 risedronate (ACTONEL) 35 mg Tablet Take 35 mg by mouth every 7 days. 05/01/2016 12/27/2023 enoxaparin (LOVENOX) 120 mg/0.8 mL Syringe Inject 0.8 mLs subcutaneously nightly for 4 days. 3.2 mL 06/03/2018 06/07/2018 sulfamethoxazole-tri methoprim (BACTRIM DS) 800-160 mg Tablet Take 1 tablet by mouth 2 times daily for 35 days. 60 tablet 1 06/03/2018 07/08/2018 oxyCODONE (ROXICODONE) 5 mg Tablet Take 2 tablets by mouth every 6 hours as needed for Pain (For pain level greater than 5/10). 20 tablet 06/03/2018 07/14/2018 risedronate sodium (ACTONEL ORAL) Take by mouth. 10/20/2018 ascorbate calcium (VITAMIN C ORAL) Take by mouth daily. multivitamin (THERAGRAN) Tablet Take 1 tablet by mouth daily. 06/12/2018 acyclovir (ZOVIRAX) 800 mg Tablet TAKE ONE TABLET BY MOUTH ONCE DAILY 90 tablet 1 01/21/2018 08/28/2018 leflunomide (ARAVA) 20 mg TabletIndications:Rh eumatoid arthritis, involving unspecified site, unspecified rheumatoid factor presence 1 t daily 90 tablet 3 10/14/2017 08/28/2018 alendronate (FOSAMAX) 70 mg Tablet Take 1 tablet by mouth every 7 days. Take in AM with full glass of water, on an empty stomach. Do not lie down for 30 min. 12 tablet 3 09/23/2017 09/11/2019 albuterol 90 mcg/actuation HFA Aerosol InhalerIndications:C hronic obstructive bronchitis Inhale 2 puffs into the [...] 11/05/2013 02/25/2023 documented as of this encounter Progress Notes * Oscar Schwab RN - 06/03/2018 3:48 PM EDT Patient and sister given written and verbal discharge instructions including information on new medications, follow up appointment and dressing care and drain care. Went over with patient how to givelovenox injection (patient has administered them in the past). [facility] if they did not contact her. Patient left with all belongings and dressing change supplies. Patient stated she had no further questions at the time of discharge. * Rosa Maria Cohen RN - 06/03/2018 2:38 PM EDT OFFICE OF CARE MANAGEMENT Met with pt this am and she is looking forward to discharge. Pt is agreeable to continue with the [facility] to assist with monitoring and management of LAURA drains. No other needs identified. * Rosa Maria Cohen RN - 06/03/2018 12:23 PM EDT OFFICE OF CARE MANAGEMENT * Ramila Mehta PA - 06/03/2018 4:20 AM EDT Plastic Surgery Service Inpatient Progress Note ID: Marla Denton is a 62 y.o. female is a history of total elbow arthroplasty in January 2018 complicated by multiple infections and a nonhealing open wound. She was admitted for exploration, debridement (Dr. Fuller), and flap closure (Dr. Castro) of the L elbow wound on 05/28. S/IE: -no events overnight -dressings dry, no oozing overnight -midline PICC removed by primary team Vitals: Last value Range last 24 hrs Temperature Temp: 36.6 ??C (97.9 ??F) Temp: [36.6 ??C (97.9 ??F)-36.9 ??C (98.4 ??F)] Heart Rate Heart Rate: 71 Heart Rate: -- Blood Pressure BP: 126/73 BP: (120-149)/(68-92) Respiratory Rate Resp: 16 Resp: [16-18] SpO2 SpO2: 93 % SpO2: [93 %-97 %] Intake and Output: Last 24 06/02 0701 - 06/03 0700 In: 480 [P.O.:480] Out: 3 Drain output (cc): L ant elbow: 0 L post elbow: 1 L distal elbow: 2 Physical Exam: General: resting comfortably in bed, in no acute distress. Arm slightly elevated and in sling Respiratory: Symmetric chest movement L elbow: no fluid collection in arm, dressing c/d/i Labs: Recent Labs 06/03/18 0351 06/02/18 1041 06/01/18 1052 05/31/18 0322 WBC 13.1* 14.7* -- 13.7* HGB 7.5* 7.9* 9.9* 8.3* HCT 23.2* 23.9* 30.1* 26.1* PLATELET 327 304 -- 267 Recent Labs 06/02/18 1052 05/28/18 1058 PT 11.1 12.9* PTT 28 -- INR 1.0 1.2 Recent Labs 06/02/18 1041 05/29/18 0422 NA 139 142 K 4.3 4.2 CL 95* 100 CO2 29 29 BUN 17 12 CREATININE 1.08 0.92 GLUCOSE 154 159 Cultures: 05/28 wound: NGTD Assessment: Marla Denton is a 62 y.o. female s/p exploration, debridement (Dr. Fuller), and flapclosure (Dr. Castro) of left elbow wound on 05/28. WBC decreasing. No signs of flap compromise. Abx per ID recommendations. Plan: -Restart Coumadin after d/c -Skin graft (left arm): Every other day dressing changes with adaptic and cover with gauze until f/u in clinic. Do not wash between dressing changes. -Skin graft donor site (leg): Leave pink dressings on and dry until your follow- up next week. -Maintain arm in arm sling -Flap checks q4hr -Per ID Bactrim DS BID indefinitely -1wk f/u with plastic surgery for BMP in clinic -4wk f/u with Infectious Disease -Home methadone - Management per APS. Appreciate recommendations. 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 Antibiotics: Meropenem, 05/28-05/30 Bactrim DS 1 tab po bid, 05/31 to present Interval events/Subjective: Pain over left elbow is the same,bloody drainage from left elbow is less. She denies fever, no shortness of breath, no nausea, no vomiting. No rash. Physical Exam: Last value Range last 48 hrs Temperature Temp: 36.4 ??C (97.5 ??F) Temp: [36.4 ??C (97.5 ??F)-37.1 ??C (98.8 ??F)] Heart Rate Heart Rate: 71 Heart Rate: -- Blood Pressure BP: 146/84 BP: (129-146)/(62-84) Respiratory Rate Resp: 16 Resp: [16-18] SpO2 SpO2: 96 % SpO2: [91 %-97 %] NAD, sitting up in chair, non-toxic L elbow and wrist with would vac's in place; in sling, bloody drainage on all drain. Incision is clean, no active drainage seen. ulnar deviation on both hands Abd soft, non-tender Lines: PIV Labs: Recent Labs 06/02/18 1041 WBC 14.7* RBC 2.80* HGB 7.9* HCT 23.9* MCV 85.4 MCH 28.2 MCHC 33.1 PLATELET 304 RDWCV 21.2* Lab Results Component Value Date CREATININE 0.92 05/29/2018 Lab Results Component Value Date ALT 10 12/19/2015 AST 20 12/19/2015 ALKPHOS 115 (H) 12/19/2015 BILITOT 0.5 12/19/2015 Sed Rate (mm/hr) Date Value 06/15/2013 33 (H) 05/14/2011 18 10/23/2010 13 CRP High Sens (mg/L) Date Value 12/19/2015 33.8 08/22/2015 25.6 03/14/2015 7.8 07/26/2014 57.0 09/21/2013 22.6 06/15/2013 9.0 05/14/2011 4.4 10/23/2010 3.7 Microbiology: 05/28 OR, L Elbow: No growth to date, including from sonicated removed suture material 05/28: Periprosthetic left OSH 03/03/2018, OR: Enterobacter cloacae Imaging/Diagnostics: 05/15/2018 XR Elbow: 1. Status post left elbow arthroplasty with a 3 mm lucency at the radial sided bone-metal interfaceof the humeral component. This finding could represent loosening or infection. ?? 2. Large soft tissue wound along the posterior elbow with ill-defined lucencies along the cortical margins of the truncated olecranon. It is unclear whether these lucencies represent the post operative appearance of the olecranon or sites of osteomyelitis. Recommend correlation with clinical signs and symptoms of infection and laboratory markers of inflammation/infection. 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 She has a history of seronegative arthritis, and underwent a L shoulder arthroplasty for progressive and retractable pain 01/23/2018, complicated by post-operative hematoms requiring multiple operative debridements followed by oral antibiotics. She received antibiotics for prosthetic joint infection due to Enterobacter cloa back in February and from several dates in April, showing positive cultures for CoNS for which she received Ertapenem and doxycycline until admission here. She is admitted to the hospital for ulnar nerve transposition, forearm flap with STSG with no grosspus seen in OR and prosthesis on left elbow are well fixed. Also all operative culture have been nogrowth to date. As of now there is no evidence of active infection to her left elbow, however, due to history of RA with prosthesis with recent infection from Enterobacter, continuing Bactrim for suppressive therapy is indicated. She has history of sulfa allergy but seem to tolerate bactrim DS without any issue. We suggest continuing bactrim DS 1 tab 2 times daily for suppressive therapy with a follow up electrolyte and creatinine in a week. Recommendations: -continue Bactrim DS 1 tab po bid, duration is indefinitely for chronic suppressive therapy. -Please obtain baseline CBC and CRP today. -Please check electrolyte and kidney function in 1 week. -will arrange a follow up visit in ID clinic in 4 weeks. This patient was discussed with ID attending Dr. Palm. Recommendations discussed with primarytreating team. ? ID service will sign off, please call back if any questions or concerns. Aayush Cole MD Infectious disease fellow 06/02/2018 11:40 AM Pager [phone] Associated attestation - Azael Palm MD - 06/02/2018 9:53 PM EDT Attestation by Azael Palm MD MPH (ID Attending):??I have seen and examined this patient. I have reviewed and agree with the findings and plan of care as documented in Dr. Cole's note.The assessment and plan were formulated in discussion with me. Ms. Stone is a 62y/o F with rheumatoid arthritis who has been followed by Dr. Sidhu (Rheumatology) and managed on prednisone and leflunomide. She underwent a left elbow arthroplasty in 01/2018 that was complicated by post-operative hematomas requiring evacuation with cultures from the wound growing Enterobacter cloacae in 02/2018. Shethen had an open wound overlying her left elbow prosthesis that was managed with multiple debridements, wound vac, and repeated courses of antibiotics. In addition to the Enterobacter cloacae, a coagulase negative Staphylococcus was cultured in 04/2018. She was on ertapenem and doxycycline leading up to her current admission on 05/28/18. She was admitted for wound exploration and a planned flap to cover the open wound. She was taken to the OR on 05/28/18 where there was no purulence seen and therewas no evidence of loosening of the ulnar and humeral components, despite concern for loosening on a 05/15/18 plain film. All cultures from 05/28/18 have remained negative. She was transitioned to Bactrim DS 1 tab PO BID on 05/31/18 with a plan for chronic suppression given the retained prosthesis. Despite a listed sulfa allergy, she has tolerated this Bactrim x48hrs with no rash or pruritis. She reported some GI symptoms this morning, but these are not clearly relatedto the Bactrim. I have reviewed the cultures from 02/2018 and 04/2018 and confirmed that both the Enterobacter cloacae and the Staphylococcus epidermidis were Bactrim susceptible. She is afebrile with a WBC count today that remains at 14.7, but her CRP is 2.3mg/L. Cr today on Bactrim is 1.08 (up only slightly from 0.92), with a potassium of 4.3. She needs a repeat Chem-7 at one week on the Bactrim that should be faxed to our office at [phone]. We will arrange for ID follow-up in 4 weeks. * Misha Celaya W - 06/02/2018 9:18 AM EDT ORTHOPAEDIC SURGERY CONSULT PROGRESS NOTE Patient Name: Marla Denton Age: 62 y.o. Surgery/Issue: Left TEA wound dehiscence/infection, now s/p I&D, ulnar nerve transposition, forearm flap with STSG Attending: Dr. Alina Penn Date of surgery: 05/28/2018 SUBJECTIVE / INTERVAL HISTORY: Doing well, comfortable, no new numbness or tingling. Eager to go home. Excited for vac to come down today. ID has switched her to bactrim. FOCUSED REVIEW OF SYSTEMS: as above. Active Hospital Problems Diagnosis ? ? S/P left elbow I&D, radial forearm flap (plastics) for dehiscence over TEA 05/28/18 Dr. Fuller ??? Elbow wound, left, 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 Resolved Hospital Problems Diagnosis Date Resolved No resolved problems to display. Active Non-Hospital Problems Diagnosis ??? Chronic prescription opiate use ??? Anticoagulated on Coumadin ??? Patient is Mu-ism ??? Elbow joint replacement status, left Dr. Mcgill January 2018 ??? Elbow wound, left, initial encounter ??? Chronic obstructive bronchitis ??? Rheumatoid lung disease ??? Tendonitis, Achilles, left ??? Lung nodule seen on imaging study ??? Pleural effusion ??? Sjogrens syndrome ??? Keratitis ??? Corneal neovascularization ??? Bilateral hand pain with deformities from RA. ??? Chronic pain ??? Total knee replacement status, left ??? Left TKA 11/02 ??? Orthopnea ??? Unspecified essential hypertension ??? Unspecified hypothyroidism ??? Rheumatoid arthritis(714.0) ??? Pain in joint, shoulder region ??? Osteoporosis, unspecified ??? Unspecified vitamin D deficiency ??? Other pulmonary embolism and infarction ??? Other dyspnea and respiratory abnormality ??? Abnormal weight gain ??? Cervicalgia ??? Pain in limb ??? 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 Encounter for long-term (current) use of other medications ??? DJD (degenerative joint disease) of knee ??? Internal derangement of knee ??? RA (rheumatoid arthritis) ??? Edema leg ??? Cellulitis of leg, right ??? Popliteal cyst ??? MRSA (methicillin resistant Staphylococcus aureus) infection ??? Seronegative rheumatoid arthritis MEDICATIONS: ??? enoxaparin (LOVENOX) injection 120 mg ??? sulfamethoxazole-trimethoprim (BACTRIM DS) 800-160 mg per tablet 1 tablet ??? methadone (DOLOPHINE) tablet 20 mg ??? Lactobacillus acidoph-pectin 75 million cell -100 mg Cap 1 tablet ??? acetaminophen (TYLENOL) tablet 1,000 mg ??? gabapentin (NEURONTIN) capsule 900 mg ??? zolpidem (AMBIEN) tablet 5 mg ??? HYDROmorphone (DILAUDID) injection 0.4 mg ??? budesonide-formoterol (SYMBICORT) 160-4.5 mcg/actuation inhaler 2 Inhalation ??? mineral oil topical liquid ??? lidocaine-EPINEPHrine 1 %-1:200,000 injection ??? atorvastatin (LIPITOR) tablet 20 mg ??? cyclobenzaprine (FLEXERIL) tablet 10 mg ??? diphenhydrAMINE (BENADRYL) capsule 25 mg ??? leflunomide (ARAVA) tablet 20 mg ??? levothyroxine (SYNTHROID) tablet 125 mcg ??? predniSONE (DELTASONE) tablet 7.5 mg ??? sodium chloride 0.9 % flush 5 mL ??? sodium chloride 0.9 % flush 5-20 mL ??? lidocaine (XYLOCAINE) 10 mg/mL (1 %) injection 3 mg ??? docusate sodium (COLACE) capsule 100 mg ??? bisacodyl (DULCOLAX) suppository 10 mg ??? oxyCODONE (ROXICODONE) immediate release tablet 5-10 mg OR oxyCODONE (ROXICODONE) immediaterelease tablet 10-15 mg ??? ondansetron (ZOFRAN) tablet 4 mg OR ondansetron (ZOFRAN) injection 4 mg ??? polyethylene glycol (MIRALAX) packet 17 g OBJECTIVE: Temp: [36.4 ??C (97.5 ??F)-37 ??C (98.6 ??F)] Resp: [16-18] BP: (134-146)/(62-84) Intake/Output Summary (Last 24 hours) at 06/02/18 0919 Last data filed at 06/02/18 0756 Gross per 24 hour Intake 600 ml Output 41 ml Net 559 ml Body mass index is 35.95 kg/(m^2). Physical Exam General: resting comfortably, no acute distress HEENT: normocephalic, atraumatic CVS: regular rate Pulm: non-labored breathing Neuro: no focal deficits, moving all extremities LUE: Motor and sensation grossly intact. SILT throughout hand. Limited finger angd thumb flexion, extension (no change from baseline exam) P drains w/serosanguineous output, wound vac sealed to suction w/serosanguineous output Incision: c/d/i, no evidence of hematoma Lab Results Component Value Date NA 142 05/29/2018 K 4.2 05/29/2018 CL 100 05/29/2018 CO2 29 05/29/2018 BUN 12 05/29/2018 CREATININE 0.92 05/29/2018 GLUCOSE 159 05/29/2018 GLUCFASTING 177 (H) 11/05/2013 CALCIUM 8.3 (L) 05/29/2018 Lab Results Component Value Date WBC 13.7 (H) 05/31/2018 HGB 9.9 (L) 06/01/2018 HCT 30.1 (L) 06/01/2018 MCV 85.6 05/31/2018 PLATELET 267 05/31/2018 Lab Results Component Value Date INR 1.2 05/28/2018 IMAGING: None new ASSESSMENT / PLAN: Marla Denton is a 62 y.o. female 5 Days Post-Op left elbow I&D, ulnar nerve transposition, forearm flap and STSG after having TEA wound chronic dehiscence/infection from January 2018. She is progressing well post operatively. Comfortable. No new numbness or tingling. She has been ambulating. On bactrim per ID, vac to come down today. - Activity: LUE activity per plastic surgery - Antibiotics: bactrim per ID - DVT px: lovenox - Pain control: tylenol, home methadone, oxycodone prn - Dressings: per plastics - Dispo: per plastics, orthopaedic follow up 06/12/18 Misha Celaya MD 06/02/2018 Future Appointments Date Time Provider Department Center 06/12/2018 2:20 PM Laura Lofton PA [facility] 08/27/2018 1:00 PM Azael Espinosa MD [facility] 10/03/2018 2:00 PM PFT TEST PFT [facility] 10/03/2018 3:00 PM Z[facility] Galdamez [facility] * Ramila Mehta PA - 06/02/2018 5:58 AM EDT Plastic Surgery Service Inpatient Progress Note ID: Marla Denton is a 62 y.o. female is a history of total elbow arthroplasty in January 2018 complicated by multiple infections and a nonhealing open wound. She was admitted for exploration, debridement (Dr. Fuller), and flap closure (Dr. Castro) of the L elbow wound on 05/28. S/IE: -No longer oozing from drain sites -Vac removed at bedside this morning Vitals: Last value Range last 24 hrs Temperature Temp: 36.4 ??C (97.5 ??F) Temp: [36.4 ??C (97.5 ??F)-37 ??C (98.6 ??F)] Heart Rate Heart Rate: 71 Heart Rate: -- Blood Pressure BP: 146/84 BP: (134-146)/(62-84) Respiratory Rate Resp: 16 Resp: [16-18] SpO2 SpO2: 96 % SpO2: [91 %-96 %] Intake and Output: Last 24 06/01 0701 - 06/02 0700 In: 600 [P.O.:600] Out: 58 Drain output (cc): L ant elbow: 18 L post elbow: 20 L distal elbow: 20 Physical Exam: General: resting comfortably in no acute distress. Arm slightly elevated and in sling Respiratory: Symmetric chest movement L elbow: flap well perfused with good doppler signal, incision intact, no fluid collection in arm Wound vac: removed at bedside today, graft with 100% take, bacitracin and xeroform applied under ABD pad and Kerlix. Labs: Recent Labs 06/01/18 1052 05/31/18 0322 05/29/18 0422 WBC -- 13.7* 16.0* HGB 9.9* 8.3* 8.7* HCT 30.1* 26.1* 28.2* PLATELET -- 267 291 Recent Labs 05/28/18 1058 PT 12.9* INR 1.2 Recent Labs 05/29/18 0422 NA 142 K 4.2 CL 100 CO2 29 BUN 12 CREATININE 0.92 GLUCOSE 159 Cultures: 05/28 wound: NGTD Assessment: Marla Denton is a 62 y.o. female s/p exploration, debridement (Dr. Fuller), and flapclosure (Dr. Castro) of left elbow wound on 05/28. WBC decreasing. No signs of flap compromise. Abx per ID recommendations. Plan: - Restart therapeutic lovenox tonight. -Dressings to graft: Bacitracin and xeroform dressing changed every other day for 1 week. Then Aquaphor daily BID thereafter. -Maintain arm in arm sling -Flap checks q4hr -F/U with ID regarding cultures -Home methadone - Management per APS. Appreciate recommendations. Currently: Opioid use: w/dependence -continue DS bactrimper ID recommendations, will need to discuss duration of therapy prior to discharge -Dispo: pending overnight observation once Lovenox restarted Code Status: Full Code Plastics Team Pager: [phone] ANGELICA Cancino 06/02/2018 7:44 AM * Constantino Asencio MD - 06/01/2018 9:08 AM EDT Plastic Surgery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 Welch removed this morning, voided very little, waiting to mobilize and try to void again. No new numbness or tingling in left arm. FOCUSED REVIEW OF SYSTEMS: as above. Active Hospital Problems Diagnosis ? ? S/P left elbow I&D, radial forearm flap (plastics) for dehiscence over TEA 05/28/18 Dr. Fluler ??? Elbow wound, left, 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 Resolved Hospital Problems Diagnosis Date Resolved No resolved problems to display. Active Non-Hospital Problems Diagnosis ??? Chronic prescription opiate use ??? Anticoagulated on Coumadin ??? Patient is Mu-ism ??? Elbow joint replacement status, left Dr. Mcgill January 2018 ??? Elbow wound, left, initial encounter ??? Chronic obstructive bronchitis ??? Rheumatoid lung disease ??? Tendonitis, Achilles, left ??? Lung nodule seen on imaging study ??? Pleural effusion ??? Sjogrens syndrome ??? Keratitis ??? Corneal neovascularization ??? Bilateral hand pain with deformities from RA. ??? Chronic pain ??? Total knee replacement status, left ??? Left TKA 11/02 ??? Orthopnea ??? Unspecified essential hypertension ??? Unspecified hypothyroidism ??? Rheumatoid arthritis(714.0) ??? Pain in joint, shoulder region ??? Osteoporosis, unspecified ??? Unspecified vitamin D deficiency ??? Other pulmonary embolism and infarction ??? Other dyspnea and respiratory abnormality ??? Abnormal weight gain ??? Cervicalgia ??? Pain in limb ??? 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 Encounter for long-term (current) use of other medications ??? DJD (degenerative joint disease) of knee ??? Internal derangement of knee ??? RA (rheumatoid arthritis) ??? Edema leg ??? Cellulitis of leg, right ??? Popliteal cyst ??? MRSA (methicillin resistant Staphylococcus aureus) infection ??? Seronegative rheumatoid arthritis MEDICATIONS: ??? methadone (DOLOPHINE) tablet 20 mg ??? methadone (DOLOPHINE) tablet 10 mg ??? mineral oil topical liquid ??? lidocaine-EPINEPHrine 1 %-1:200,000 injection ??? atorvastatin (LIPITOR) tablet 20 mg ??? cyclobenzaprine (FLEXERIL) tablet 10 mg ??? diphenhydrAMINE (BENADRYL) capsule 25 mg ??? gabapentin (NEURONTIN) capsule 600 mg ??? leflunomide (ARAVA) tablet 20 mg ??? levothyroxine (SYNTHROID) tablet 125 mcg ??? predniSONE (DELTASONE) tablet 7.5 mg ??? sodium chloride 0.9 % flush 5 mL ??? sodium chloride 0.9 % flush 5-20 mL ??? lidocaine (XYLOCAINE) 10 mg/mL (1 %) injection 3 mg ??? Lactobacillus (BACID) tablet 1 tablet ??? acetaminophen (TYLENOL) tablet 1,000 mg ??? docusate sodium (COLACE) capsule 100 mg ??? bisacodyl (DULCOLAX) suppository 10 mg ??? sodium chloride 0.9% infusion ??? oxyCODONE (ROXICODONE) immediate release tablet 5-10 mg OR oxyCODONE (ROXICODONE) immediaterelease tablet 10-15 mg ??? ondansetron (ZOFRAN) tablet 4 mg OR ondansetron (ZOFRAN) injection 4 mg ??? polyethylene glycol (MIRALAX) packet 17 g ??? enoxaparin (LOVENOX) injection 40 mg ??? MEROpenem (MERREM) 1g vial attach to sodium chloride 0.9% 100 mL Mini-Bag Plus ??? sodium chloride 0.9% 1,000 mL (05/29/18424) OBJECTIVE: Temp: [36.5 ??C (97.7 ??F)-37.6 ??C (99.7 ??F)] Heart Rate: [70-99] Resp: [10-22] BP: (107-174)/(64-83) Intake/Output Summary (Last 24 hours) at 05/29/18622 Last data filed at 05/29/18422 Gross per 24 hour Intake 2040 ml Output 2275 ml Net -235 ml Body mass index is 35.95 kg/(m^2). Physical Exam General: resting comfortably, no acute distress HEENT: normocephalic, atraumatic CVS: regular rate Pulm: non-labored breathing Neuro: no focal deficits, moving all extremities LUE: Motor and sensation grossly intact. SILT throughout hand. Limited finger and thumb flexion, extension (no change from baseline exam) 3 LAURA drains w/serosanguineous output, wound vac sealed to suction w/serosanguineous output Incision: c/d/i, no evidence of hematoma Lab Results Component Value Date NA 142 05/29/2018 K 4.2 05/29/2018 CL 100 05/29/2018 CO2 29 05/29/2018 BUN 12 05/29/2018 CREATININE 0.92 05/29/2018 GLUCOSE 159 05/29/2018 GLUCFASTING 177 (H) 11/05/2013 CALCIUM 8.3 (L) 05/29/2018 Lab Results Component Value Date WBC 16.0 (H) 05/29/2018 HGB 8.7 (L) 05/29/2018 HCT 28.2 (L) 05/29/2018 MCV 85.7 05/29/2018 PLATELET 291 05/29/2018 Lab Results Component Value Date INR 1.2 05/28/2018 IMAGING: None new ASSESSMENT / PLAN: Marla Denton is a 62 y.o. female 1 Day Post-Op left elbow I&D, ulnar nerve transposition, forearm flap and STSG after having TEA wound chronic dehiscence/infection from January 2018. She is progressing well post operatively. Comfortable. Plan to mobilize with PT today, dueto void. Further care per plastic surgery. - Activity: LUE activity per plastic surgery - Antibiotics: meropenem per ID - DVT px: lovenox - Pain control: tylenol, home methadone, oxycodone prn - Dressings: per plastics - Dispo: TBD Misha Celaya MD 05/29/2018 Future Appointments Date Time Provider Department Center 06/12/2018 2:20 PM Laura Lofton PA [facility] 08/27/2018 1:00 PM Azael Espinosa MD [facility] 10/03/2018 2:00 PM PFT TEST PFT [facility] 10/03/2018 3:00 PM Zaki Galdamez MD [facility] * Ramila Mehta PA - 05/29/2018 5:33 AM EDT Plastic Surgery Service Inpatient Progress Note ID: Marla Denton is a 62 y.o. female is a history of total elbow arthroplasty in January 2018 complicated by multiple infections and a nonhealing open wound. She was admitted for exploration, debridement (Dr. Fuller), and flap closure (Dr. Castro) of the L elbow wound on 05/28. S/IE: -No events overnight -Per nursing pt urinated a small amount and had a bladder scan of 167 cc. Will continue to work on urinating. Vitals: Last value Range last 24 hrs Temperature Temp: 36.6 ??C (97.9 ??F) Temp: [36.5 ??C (97.7 ??F)-37.6 ??C (99.7 ??F)] Heart Rate Heart Rate: 71 Heart Rate: [70-77] Blood Pressure BP: 131/71 BP: (107-174)/(64-83) Respiratory Rate Resp: 18 Resp: [10-22] SpO2 SpO2: 99 % SpO2: [89 %-100 %] Intake and Output: Last 24 05/28 0701 - 05/29 0700 In: 2040 [P.O.:240; I.V.:1800] Out: 2275 [Urine:2200] Drain output (cc): L ant elbow: 10 L post elbow: 10 L distal elbow: 5 Physical Exam: General: resting comfortably in no acute distress. Arm slightly elevated and in sling Respiratory: Symmetric chest movement L elbow: flap well perfused with good doppler signal, incision intact Wound vac in place with good seal Labs: Recent Labs 05/29/18 0422 WBC 16.0* HGB 8.7* HCT 28.2* PLATELET 291 Recent Labs 05/28/18 1058 PT 12.9* INR 1.2 Recent Labs 05/29/18 0422 NA 142 K 4.2 CL 100 CO2 29 BUN 12 CREATININE 0.92 GLUCOSE 159 Cultures: 05/28 wound: NGTD Assessment: Marla Denton is a 62 y.o. female s/p exploration, debridement (Dr. Fuller), and flapclosure (Dr. Castro) of left elbow wound on 05/28. Plan: -VAC off 5 days post op (due 06/02) -Maintain arm in arm sling -Flap checks q4hr -F/U with ID regarding cultures -Restart therapeutic Lovenox tonight. Wait to start Coumadin -Home methadone - Consult APS -Meropenem per ID, awaiting culture results, appreciate recs Code Status: Full Code Discussed with Plastic Surgery Chief Resident Wes Rodriguez MD, and he agreed with the plan. Plastics Team Pager: [phone] ANGELICA Cancino 05/29/2018 1:11 PM * Tim Jimenez MD - 05/28/2018 9:45 PM EDT Plastic Surgery Post Op Check Patient ID: Marla Denton is a 62 y.o. female Procedure(s): ARTHROTOMY, ELBOW, EXPLORATION, DRAINAGE, OR REMOVAL FB (WRVU 6.08) FLAP, MYOCUTANEOUS OR FASCIOCUTANEOUS, UPPER EXTREMITY (WRVU 17.04) SPLIT THICK SKIN GRAFT,100 SQ CM OR LESS, ARMS (WRVU 9.9) NEUROPLASTY &/OR TRANSPOSITION, ULNAR NERVE AT ELBOW (WRVU 7.26) Subjective: No nausea/vomiting, chest pain, SOB, pain well controlled, offers no complaints Objective: Temp: [36.7 ??C (98.1 ??F)-36.9 ??C (98.4 ??F)] Heart Rate: -- Resp: [17] BP: (107-137)/(64-66) SpO2: [99 %] Heart Rate from SPO2: [71 bpm-79 bpm] I/O this shift: In: 240 [P.O.:240] Out: 825 [Urine:800; Other:25] Physical Exam General: resting comfortably, no acute distress HEENT: normocephalic, atraumatic CVS: regular rate Pulm: non-labored breathing Abd: soft, non tender, non distended Neuro: no focal deficits, moving all extremities LUE: Motor and sensation grossly intact w/exception of numbness in thumb 3 LAURA drains w/serosanguineous output, wound vac sealed to suction w/serosanguineous output Incision: c/d/i, no evidence of hematoma Flap: doppler signal present. Cap refill <2 sec. [place]. WWP Assessment/Plan: Marla Denton is a 62 y.o. female s/p left elbow skin graft currently in stable condition and recovering well. - pain well controlled - hemodynamically stable - UOP adequate Tim Jimenez MD * Roxane Urrutia RN - 05/28/2018 6:20 PM EDT 1820 - dinner break coverage. Pt. Resting quietly. Will assess pain level * Katharina Gamboa RN - 05/28/2018 5:31 PM EDT Pt arrived to PACU from OR, placed on monitor and alarms adjusted. Received report. documented in this encounter H&P Notes * Misha Celaya W - 05/28/2018 11:16 AM EDT The patient's history and physical exam have been reviewed and completed. There has been no interval change from that of the pre-operative history and physical exam done within the last 30 days. * Cristian Rodriguez MD - 05/28/2018 10:24 AM EDT INTERVAL H&P CC: elbow wound S: Marla Denton's condition is unchanged since H&P originally performed. Denies any new ED visits, hospitalizations, trauma, or new events. Has been overall doing well. Past Medical History: Diagnosis Date ??? Allergic state ??? Arthritis ??? Elbow wound, left, initial encounter 04/28/2018 ??? Hypertension ??? Sjogren's syndrome ??? Thyroid disease Past Surgical History: Procedure Laterality Date ??? CERVICAL FUSION ??? HAND TENDON SURGERY ??? HYSTERECTOMY, TOTAL ABDOMINAL ??? PRO TOTAL KNEE ARTHROPLASTY 11/02/2013 @TOTAL KNEE ARTHROPLASTY performed by Mayco Montanez Jr., MD at [facility] MAIN OR ??? SHOULDER SURGERY ??? TOTAL ELBOW ARTHROPLASTY Left 01/2018 Allergies Allergen Reactions ??? Infliximab Anaphylaxis and Other (See Comments) throat swelling,chest heaviness ??? Iodinated Contrast- Oral And Iv Dye Anaphylaxis ??? Iodine And Iodide Containing Products Anaphylaxis ??? Vancomycin Anaphylaxis ??? Wellbutrin [Bupropion Hcl] Other (See Comments) Causes retless leg syndrome ??? Ms Contin [Morphine] ??? Sulfa (Sulfonamide Antibiotics) ??? Sulfisoxazole ??? Sulfisoxazole Acetyl Unknown No current facility-administered medications on file prior to encounter. Current Outpatient Prescriptions on File Prior to Encounter Medication Sig Dispense Refill ??? risedronate sodium (ACTONEL ORAL) Take by mouth. ??? ascorbate calcium (VITAMIN C ORAL) Take by mouth. ??? multivitamin (THERAGRAN) Tablet Take 1 tablet by mouth daily. ??? Lactobacillus acidophilus (PROBIOTIC ORAL) Take by mouth. ??? docusate sodium (COLACE) 100 mg Capsule Take 100 mg by mouth 2 times daily. ??? senna (SENOKOT) 8.6 mg Tablet Take by mouth daily. ??? acyclovir (ZOVIRAX) 800 mg Tablet TAKE ONE TABLET BY MOUTH ONCE DAILY 90 tablet 1 ??? doxycycline (VIBRAMYCIN) 100 mg Capsule Take one capsule by mouth once daily 90 capsule 3 ??? leflunomide (ARAVA) 20 mg Tablet 1 t daily 90 tablet 3 ??? alendronate (FOSAMAX) 70 mg Tablet Take [...] puff into the lungs 2 times daily. 1 Inhaler 12 ??? polyethylene glycol (MIRALAX) 17 gram Powder in Packet Take 17 g by mouth daily. ??? predniSONE (DELTASONE) 5 mg Tablet Take 7.5 mg by mouth daily. ??? levothyroxine (SYNTHROID) 125 mcg Tablet Take 125 mcg by mouth daily. ??? methadone (DOLOPHINE) 10 mg Tablet 20 MG in the AM, 10 MG at NOON, 20 MG in the PM. ??? warfarin (COUMADIN) 5 mg tablet Take 5-7.5 mg by mouth daily. ??? doxepin (SINEQUAN) 50 mg capsule Take 1 capsule by mouth daily. (Patient taking differently: Take 50-100 mg by mouth daily.) ??? gabapentin (NEURONTIN) 300 mg capsule Take [...] ??? ergocalciferol (VITAMIN D) 50,000 unit capsule 91475 unit, PO, once a month (Patient taking differently: 50,000 units PO twice a week) ??? linezolid in dextrose 5% (ZYVOX) 600 mg/300 mL Parenteral Solution Inject 600 mg into the vein every 12 hours. ??? albuterol 90 mcg/actuation HFA Aerosol Inhaler Inhale 2 puffs into the lungs every 4 hours as needed for Wheezing. Use with spacer (Patient not taking: Reported on 04/28/2018) 1 Inhaler 5 ??? Carboxymethylcellulose Sodium 0.25 % Dropperette Place 1 drop into both eyes 6 times daily. ??? cyclobenzaprine (FLEXERIL) 10 mg tablet Take 10 mg by mouth 3 times daily as needed. Family History Problem Relation Age of Onset [...] Neg Hx ??? Strabismus Neg Hx Social History Social History ??? Marital status: Spouse name: N/A ??? Number of children: N/A ??? Years of education: N/A Occupational History ??? Not on file. Social History Main Topics ??? Smoking status: Never Smoker ??? Smokeless tobacco: Never Used ??? Alcohol use No ??? Drug use: No ??? Sexual activity: No Other Topics Concern ??? Not on file Social History Narrative Review of Systems: Constitutional: denies fever, chills Skin: denies any new growths orrashes HEENT: denies head ache,no recent upper respiratory sx Resp: denies any SOB, ABDULLAHI CV: No CP, no palpitations GI: denies abd pain, vomiting : denies dysuria, hematuria PV: denies past DVT, claudication MS: denies joint pain, swelling Neuro: denies weakness, numbness Heme/Lymph: denies bruising, bleeding Endo: no troubles with sugar, denies fatigue O: No data found. NAD, A&Ox3 Non-labored respirations, clear to auscultation bilaterally Regular rate and rhythm, no murmur on auscultation Site marked AP: 62 y.o. female with elbow wound. - After extensive discussion of the risks, benefits, and alteratives of surgical intervention, the patient consented to proceed with surgery. - IV antibiotics ordered - Proceed to OR for: Procedure(s): FLAP, MYOCUTANEOUS OR FASCIOCUTANEOUS, UPPER EXTREMITY (WRVU 17.04) SPLIT THICK SKIN GRAFT,100 SQ CM OR LESS, ARMS (WRVU 9.9) [place]ioid [place] 05/15/2018 [place] Query Date 05/15/2018 [place] Query Date 05/15/2018 [place] QUERY DATE: 05/28/18 Risk Assessment Category: Low Marla Ryan Corrie is getting a prescription opioid for the treatment of acute post-operative pain related to the surgical procedure during this encounter. Pt has been advised to take the smallest dose possible to control pain and as the pain improves to take smaller doses and increase the time between doses. In addition to this medication, pt was educated on the non-opioid pain medications that can be taken for adjunct treatment of pain. Non-pharmacological treatments were also discussed that include but not limited to ice, elevation, and activity modification as appropriate. The Acute Opioid Therapy Informed Consent form has been completed during this encounter and sent tomedical records for scanning to chart. Future Appointments Date Time Provider Department Center 06/12/2018 2:20 PM Laura Lofton PA [facility] 08/27/2018 1:00 PM Azael Espinosa MD [facility] 10/03/2018 2:00 PM PFT TEST MH PFT YAS[facility] JAIMES 10/03/2018 3:00 PM Zaki Galdamez MD [facility] Cristian Rodriguez MD Plastic Surgery Resident, PGY-8 documented in this encounter Miscellaneous Notes * Plan of Care - Rosetta Joiner RN - 06/02/2018 10:55 PM EDT Problem: Patient Care Overview Goal: Plan of Care Review Outcome: Ongoing (Interventions Implemented as Appropriate) 06/02/18 6508 Plan of Care Review Progress improving Coping/Psychosocial Plan Of Care Reviewed With patient OUTCOME EVALUATION NOTE: OUTCOME SUMMARY: Patient progressing towards d/c goals appropriately at this time. Patients pain adequately controlled, see MAR for medications given. Patient reporting increase in pain today in comparison to yesterday. Patient given dose or lovenox. Flap site and dressing assessed frequently for toleration of lovenox. Will continue to monitor and help patient reach d/c goals. PLAN MOVING FORWARD: Pain control Mobilize D/c planning INDIVIDUALIZED FALL PREVENTION: Patient is currently a high risk to Fall. Patient educated on bed/chair alarm, demonstrates proper use of call fuller and verbalizes understanding of fall preventions implemented. Patient-specific fall risk factors per assessment: [current deficits]: IV Sites, Pain, Medications,Hospital Environment. Surveillance [continuous indirect monitoring]: , Jacob, Purposeful Rounding, Bedside Report Patient-specific fall prevention interventions for sensory deficits provided, if applicable: [X] N/A CPG GOAL OUTCOME EVALUATION: Goal: Individualization & Mutuality Outcome: Ongoing (Interventions Implemented as Appropriate) 06/02/18455 Individualization Patient Specific Interventions flap check, drain care Goal: Fall Prevention-Safe Patient Handling Outcome: Ongoing (Interventions Implemented as Appropriate) 06/02/1845506/02/181939 Daily Care Interventions Self-Care Promotion BADL personal objects within reach;independence encouraged -- Martinez Fall Risk History of Falling -- 0 Secondary Diagnosis -- 15 Ambulatory Aids -- 15 Intravenous Therapy/Heparin/Saline Lock -- 20 Gait/Transferring -- 10 Mental Status -- 0 Score -- 60 OTHER Martinez Fall Risk -- High Restraint Interventions Safety Promotion/Fall Prevention -- activity supervised;nonskid shoes/slippers when out of bed;safety round/check completed Positioning Body Position -- supine, head elevated Activity Activity Type -- activity adjusted per tolerance Activity Assistance Provided -- assistance, stand-by Assistive Device Utilized -- cane;sling Goal: Infection Control Outcome: Ongoing (Interventions Implemented as Appropriate) 06/02/181939 Safety Interventions Isolation Precautions standard precautions maintained Infection Prevention rest/sleep promoted;barrier precautions utilized Coping Strategies Supportive Measures active listening utilized;counseling provided;goal setting facilitated;decision-making supported;verbalization of feelings encouraged;self- responsibility promoted;self-reflection promoted;relaxation techniques promoted;self-care encouraged Goal: Discharge Needs Assessment Outcome: Ongoing (Interventions Implemented as Appropriate) 05/29/18 0759 06/02/18455 Discharge Needs Assessment Concerns To Be Addressed denies needs/concerns at this time -- Readmission Within The Last 30 Days no previous admission in last 30 days -- Equipment Needed After Discharge cane, straight;walker, rolling -- Discharge Disposition -- still a patient Current Health Anticipated Changes Related to Illness inability to care for self -- Activity/Self Care Review of Systems Equipment Currently Used at Home cane, straight;walker, rolling -- Goal: Interdisciplinary Rounds/Family Conf Outcome: Ongoing (Interventions Implemented as Appropriate) 06/02/18 7113 Interdisciplinary Rounds/Family Conf Participants nursing;patient Problem: Skin Integrity Impairment, Risk/Actual (Adult) Goal: Skin Integrity/Wound Healing Patient will demonstrate the desired outcomes by discharge/transition of care. Outcome: Ongoing (Interventions Implemented as Appropriate) 06/02/18 2252 Skin Integrity Impairment, Risk/Actual (Adult) Skin Integrity/Wound Healing making progress toward outcome * Plan of Care - Rosetta Joiner RN - 06/02/2018 5:01 AM EDT Problem: Patient Care Overview Goal: Plan of Care Review Outcome: Ongoing (Interventions Implemented as Appropriate) 05/29/18195306/01/181939 Plan of Care Review Progress improving -- Coping/Psychosocial Plan Of Care Reviewed With -- patient OUTCOME EVALUATION NOTE: OUTCOME SUMMARY: Patient progressing towards d/c goals appropriately at this time. Patients pain adequately controlled, see MAR for medications given. Patient resting comfortably throughout shift. Flap checks normal.Dressing changes to upper arm done with flap checks. Dressing changed to hip with MD banks. Will continue to monitor and help patient reach d/c goals. PLAN MOVING FORWARD: Pain control Mobilize D/c planning INDIVIDUALIZED FALL PREVENTION: Patient is currently a high risk to Fall. Patient educated on bed/chair alarm, demonstrates proper use of call fuller and verbalizes understanding of fall preventions implemented. Patient-specific fall risk factors per assessment: [current deficits]: IV Sites, Pain, Medications,Hospital Environment. Surveillance [continuous indirect monitoring]: , Masimo, Purposeful Rounding, Bedside Report Patient-specific fall prevention interventions for sensory deficits provided, if applicable: [X] N/A CPG GOAL OUTCOME EVALUATION: Goal: Individualization & Mutuality Outcome: Ongoing (Interventions Implemented as Appropriate) 06/02/18455 Individualization Patient Specific Interventions flap check, drain care Goal: Fall Prevention-Safe Patient Handling Outcome: Ongoing (Interventions Implemented as Appropriate) 06/01/18193906/02/18455 Daily Care Interventions Self-Care Promotion -- BADL personal objects within reach;independence encouraged Martinez Fall Risk History of Falling 0 -- Secondary Diagnosis 15 -- Ambulatory Aids 15 -- Intravenous Therapy/Heparin/Saline Lock 20 -- Gait/Transferring 10 -- Mental Status 0 -- Score 60 -- OTHER Martinez Fall Risk High -- Restraint Interventions Safety Promotion/Fall Prevention activity supervised;safety round/check completed;nonskid shoes/slippers when out of bed -- Positioning Body Position supine, head elevated -- Activity Activity Type activity adjusted per tolerance -- Activity Assistance Provided assistance, 1 person -- Assistive Device Utilized cane -- Goal: Infection Control Outcome: Ongoing (Interventions Implemented as Appropriate) 06/01/181939 Safety Interventions Isolation Precautions standard precautions maintained Infection Prevention rest/sleep promoted;barrier precautions utilized Coping Strategies Supportive Measures self-reflection promoted;self-care encouraged;relaxation techniques promoted;self-responsibility promoted;verbalization of feelings encouraged;decision-making supported;counselingprovided;active listening utilized Goal: Discharge Needs Assessment Outcome: Ongoing (Interventions Implemented as Appropriate) 05/29/18 0759 06/02/18455 Discharge Needs Assessment Concerns To Be Addressed denies needs/concerns at this time -- Readmission Within The Last 30 Days no previous admission in last 30 days -- Equipment Needed After Discharge cane, straight;walker, rolling -- Discharge Disposition -- still a patient Current Health Anticipated Changes Related to Illness inability to care for self -- Activity/Self Care Review of Systems Equipment Currently Used at Home cane, straight;walker, rolling -- Goal: Interdisciplinary Rounds/Family Conf Outcome: Ongoing (Interventions Implemented as Appropriate) 06/02/18455 Interdisciplinary Rounds/Family Conf Participants nursing;patient Problem: Skin Integrity Impairment, Risk/Actual (Adult) Goal: Identify Related Risk Factors and Signs and Symptoms Related risk factors and signs and symptoms are identified upon initiation of Human Response Clinical Practice Guideline (CPG) Outcome: Outcome (s) achieved Date Met: 06/02/18 06/02/18455 Skin Integrity Impairment, Risk/Actual Skin Integrity Impairment, Risk/Actual: Related Risk Factors traumatic injury;treatment effects;infection/disease process;immobility;surgery/procedure Signs and Symptoms (Skin Integrity Impairment) inflammation Goal: Skin Integrity/Wound Healing Patient will demonstrate the desired outcomes by discharge/transition of care. Outcome: Ongoing (Interventions Implemented as Appropriate) 06/02/18455 Skin Integrity Impairment, Risk/Actual (Adult) Skin Integrity/Wound Healing making progress toward outcome * Plan of Care - Reece Joiner RN - 05/31/2018 2:29 AM EDT Problem: Patient Care Overview Goal: Plan of Care Review Outcome: Ongoing (Interventions Implemented as Appropriate) 05/29/18195305/30/182110 Plan of Care Review Progress improving -- Coping/Psychosocial Plan Of Care Reviewed With -- patient OUTCOME EVALUATION NOTE: ?? OUTCOME SUMMARY: ?? Patient alert and oriented X 4 with mild pain located to left elbow. Patient shows to have peripheral pulses with doppler and edema located to left elbow. Patient has not reported any chest pain or shortness of breath. Lung alatorre appear to be clear with diminished bases and patient has had a non-productive croupy cough. O2 saturations have shown to drop on occasions and patient was placed on 1 LNC. Patient has no baseline peripheral lower extremity numbness and tingling. Patient has been ableto void with no distress noted. Flap continues to show adequate circulation through capillary refill and doppler checks. Patient has been able to stand and walk. Some drainage noted to graft site and has been marked for observation. Will continue to monitor. ?? PLAN MOVING FORWARD: ?? Pain control Mobilize Glucose control Neurovascular checks Flap checks ?? INDIVIDUALIZED FALL PREVENTION INTERVENTIONS: ?? Patient-specific fall risk factors per assessment: [current deficits]: Decreased mobility, Pain, Cane use, Sling in place ?? Assistance [level of assistance required for transfers and ambulation]: 1 person assist due to caneand wound vac ?? Supervision [direct monitoring required during toileting and ADLs]: No direct supervision required due to patient following commands with call light system. ?? Surveillance [continuous indirect monitoring]: Masimo, Hourly rounds, Nursing communication, Flap checks ?? Patient-specific fall prevention interventions for sensory deficits provided, if applicable: [X] No. ? CPG GOAL OUTCOME EVALUATION: * Consult Note - Paulina Simon MD - 05/30/2018 12:31 PM EDT Acute Pain Service Consult ID: Marla Denton is a 62 y.o. female [employer], chronically anticoagulated on coumadin(last dose 05/22), on chronic opioids (methadone 20 mg TID, PRN oxycodone), with RA s/p TSA, TKA and cervical fusion, s/p elbow replacement complicated by MRSA infection, known ulnar nerve injury, who is s/p arthrotomy and flap reconstruction Subjective: -Reports pain well controlled with current regimen O: Temp: [36.4 ??C (97.5 ??F)-37 ??C (98.6 ??F)] Heart Rate: -- Resp: [16-18] BP: (123-175)/(61-78) SpO2: [86 %-98 %] Heart Rate from SPO2: [74 bpm-90 bpm] Physical Exam Affect:Appropriate. Conversant. Smiling. Pain behaviors. None IP Pain Medications APAP 1000mg q6h len Flexeril 10mg TID Gabapentin 900mg TID Oxycodone 5-15mg q4h PRN Methadone 20mg q8h Dilaudid 0.4mg q2h PRN Zolpidem 5mg nightly PRN Historical Pain Medications Methadone 20mg AM, 10mg Noon, 20mg PM Gabapentin 600mg TID Bowel Regimen Assessment: 62 y.o. female [employer], chronically anticoagulated on coumadin (last dose 05/22), on chronic opioids (methadone 20 mg TID, PRN oxycodone), with RA s/p TSA, TKA and cervical fusion, s/p elbow replacement complicated by MRSA infection, known ulnar nerve injury, who is s/p arthrotomy and flap reconstruction. Doing well with current analgesic regimen. Plan: -Continue APAP 1000mg q6h len -ontinue Flexeril 10mg TID -Continue Gabapentin 900mg TID -Continue Oxycodone 5-15mg q4h PRN wean when appropriate -Continue Methadone 20mg q8h -Consider discontinuing Dilaudid 0.4mg IV q2h PRN if not being used -Continue Zolpidem 5mg nightly PRN APS signing off. Thank you for allowing us to participate in the care of this patient. Please page [phone] for further questions SAIMA PAGAN MD I have seen and examined the patient. I have reviewed the note above, written by Dr. Pagan, andagree with the findings, assessment, and plan. PAULINA SIMON MD * Plan of Care - Reece Joiner RN - 05/30/2018 7:47 AM EDT Problem: Patient Care Overview Goal: Plan of Care Review Outcome: Ongoing (Interventions Implemented as Appropriate) 05/29/18195305/29/182233 Plan of Care Review Progress improving -- Coping/Psychosocial Plan Of Care Reviewed With -- patient OUTCOME EVALUATION NOTE: OUTCOME SUMMARY: Patient alert and oriented X 4 with mild pain located to left elbow. Patient shows to have peripheral pulses with doppler and edema located to left elbow. Patient has not reported any chest pain or shortness of breath. Lung alatorre appear to be clear with diminished bases and patient has had a non-productive croupy cough. O2 saturations have shown to drop on occasions and patient was placed on 1 LNC. Patient has no baseline peripheral lower extremity numbness and tingling. Patient has been ableto void with no distress noted. Flap continues to show adequate circulation through capillary refill and doppler checks. Patient has been able to stand and walk. Some drainage noted to graft site andhas been marked for observation. Will continue to monitor. PLAN MOVING FORWARD: Pain control Mobilize Glucose control Neurovascular checks Flap checks INDIVIDUALIZED FALL PREVENTION INTERVENTIONS: Patient-specific fall risk factors per assessment: [current deficits]: Decreased mobility, Pain, Cane use, Sling in place Assistance [level of assistance required for transfers and ambulation]: 1 person assist due to caneand wound vac Supervision [direct monitoring required during toileting and ADLs]: No direct supervision required due to patient following commands with call light system. Surveillance [continuous indirect monitoring]: Masimo, Hourly rounds, Nursing communication, Flap checks Patient-specific fall prevention interventions for sensory deficits provided, if applicable: [X] No. CPG GOAL OUTCOME EVALUATION: * Plan of Care - Db Munguia - 05/29/2018 7:58 PM EDT Problem: Patient Care Overview Goal: Plan of Care Review Outcome: Ongoing (Interventions Implemented as Appropriate) 05/29/18 0839 05/29/181953 Plan of Care Review Progress -- improving Coping/Psychosocial Plan Of Care Reviewed With patient -- OUTCOME EVALUATION NOTE: OUTCOME SUMMARY: Patient progressing towards d/c goals appropriately at this time. Patient's pain adequately controlled with scheduled pain medications and PRN, See MAR. Pt ambulateed several times with 1 person assist throughout shift. Pt was out of bed for most of the shift and up in the chair. All flap checks were benign throughout shift. Pt did need a little help with fine motor skill related tasks because she couldn't use her left arm or hand. Pt began voiding spontaneously during shift with little to 0 PVR. Will continue to monitor and help patient reach d/c goals. PLAN MOVING FORWARD: Pain control Mobilize D/c planning INDIVIDUALIZED FALL PREVENTION: Patient is currently a high risk to Fall. Patient educated on bed/chair alarm, demonstrates proper use of call fuller and verbalizes understanding of fall preventions implemented. Patient-specific fall risk factors per assessment: [current deficits]: Wound vac, Laura Drain, Pain, Medications, Hospital Environment. Assistance [level of assistance required for transfers and ambulation]: 1 person assist with cane Supervision [direct monitoring required during toileting and ADLs]: Hands on with ADL's Surveillance [continuous indirect monitoring]: Masimo, Purposeful Rounding, Nurse Knowledge Exchange Patient-specific fall prevention interventions for sensory deficits provided, if applicable: NA CPG GOAL OUTCOME EVALUATION: * Consult Note - Mauricio Krishnamurthy MD - 05/29/2018 11:54 AM EDT Acute Pain Service Consult ID: Marla Denton is a 62 y.o. female [employer], chronically anticoagulated on coumadin(last dose 05/22), on chronic opioids (methadone 20 mg TID, PRN oxycodone), with RA s/p TSA, TKA and cervical fusion, s/p elbow replacement complicated by MRSA infection, known ulnar nerve injury, who is s/p arthrotomy and flap reconstruction Subjective: -Reports relatively good pain control with some difficulty sleeping at night O: Temp: [36.5 ??C (97.7 ??F)-37.6 ??C (99.7 ??F)] Heart Rate: [70-77] Resp: [10-22] BP: (107-174)/(64-83) SpO2: [89 %-100 %] Heart Rate from SPO2: [65 bpm-79 bpm] Physical Exam Affect: Patient calm. Appropriate. Conversant. Smiling while reading a book Pain behaviors. None IP Pain Medications APAP 1000mg q8h len Flexeril 10mg TID Gabapentin 600mg TID Oxycodone 5-15mg q4h PRN Methadone 20mg q8h Historical Pain Medications Methadone 20mg AM, 10mg Noon, 20mg PM Gabapentin 600mg TID Bowel Regimen Assessment: 62 y.o. female [employer], chronically anticoagulated on coumadin (last dose 05/22), on chronic opioids (methadone 20 mg TID, PRN oxycodone), with RA s/p TSA, TKA and cervical fusion, s/p elbow replacement complicated by MRSA infection, known ulnar nerve injury, who is s/p arthrotomy and flap reconstruction. Doing well post op with minor pain control issues. Plan: - Recommend APAP 1000mg q6h len - Continue Flexeril 10mg TID - Recommend IncreasingGabapentin 900mg TID - Continue Oxycodone 5-15mg q4h PRN - Continue home Methadone - Recommend IV Dilaudid 0.4 mg q2hr PRN for breakthrough pain - Recommend Trazodone or home Zolpidem for sleeping aid APS will continue to follow Please page [phone] for further questions SAIMA PAGAN MD I have seen and examined the patient, providing estrada components as outlined above. I have reviewed the resident???s above note and agree with plan Mauricio Krishnamurthy MD * Plan of Care - Reece Joiner RN - 05/29/2018 7:59 AM EDT Problem: Patient Care Overview Goal: Plan of Care Review Outcome: Ongoing (Interventions Implemented as Appropriate) OUTCOME EVALUATION NOTE: OUTCOME SUMMARY: Patient alert and oriented X 4 with pain located to right elbow and arm. Patient shows to have peripheral pulses with doppler and edema located to left arm. Patient has not reported any chest pain orshortness of breath. Lung alatorre show to be clear Patient has baseline peripheral right upper extremity numbness. Patient has been able to void with no distress noted. Flap shows to have good dopplerable pulse and capillary refill has remained less than 4 seconds. Pain has been tolerable on currentregimen. Wound vac or Laura drains have shown large amounts of output. Will continue to monitor. PLAN MOVING FORWARD: Pain control Mobilize Flap checks Neurovascular checks INDIVIDUALIZED FALL PREVENTION INTERVENTIONS: Patient-specific fall risk factors per assessment: [current deficits]: Decreased mobility, Pain, General weakness Assistance [level of assistance required for transfers and ambulation]: 1 person assist with cane Supervision [direct monitoring required during toileting and ADLs]: No direct supervision required as patient does utilize call light system appropriately Surveillance [continuous indirect monitoring]: Masimo, Hourly rounds, Nursing communication, Flap checks Patient-specific fall prevention interventions for sensory deficits provided, if applicable: [X] No CPG GOAL OUTCOME EVALUATION: * Consult Note - Hieu Vazquez MD - 05/28/2018 10:11 PM EDT Infectious Disease Inpatient Consultation I reviewed the medical record and interviewed Ms. Denton in the PACU, when she was just coming out of surgery. Today she underwent debridement of a left elbow infection overlying a joint prosthesis, which was not removed, and flap closure. Prior to her admission she was being treated with ertapenem, based on a prior culture (from February) that grew Enterobacter. For tonight, we suggest treatment with meropenem (1 g every 8 hours), pending culture results from today's procedure. Full not to follow in a.m. ID Attending We are asked by Lorie Fuller MD to see this 62 y.o. year-old female because of a left elbow infection. Ms. Denton has multiple chronic medical conditions, including RA, for which she is treatedwith leflunomide and steroids. She underwent placement of a left elbow prosthesis in January, but shehad poor wound healing, hematoma, etc. We have culture reports from March 03, which shows E. cloacae, and from several dates in April, showing positive cultures for CoNS. She has been treated with a number of antibiotics -- cephalexin, ciprofloxacin, doxycycline and ertapenem -- and most recently she has been on the latter two drugs up until today's admission. Today she underwent debridement of the wound. Although there was a suggestion of loosening on a plain film of the elbow, the prosthesis seemed to be well fixed at the time of surgery and was not removed. A flap was placed over the wound.Multiple specimens were sent for culture, with gram stains showing no organisms. Patient Active Problem List Diagnosis Code ??? [...] M54.2 ??? Pain in limb M79.609 ??? 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 Left TKA 12/16 Z96.659 ??? Chronic pain G89.29 ??? Total [...] opiate use Z79.891 ??? Anticoagulated on Coumadin Z51.81, Z79.01 ??? Patient is Mu-ism Z78.9 ? ? S/P left elbow I&D, radial forearm flap (plastics) for dehiscence over TEA 05/28/18 Dr. Alvarado51.002S ??? Elbow wound, left, 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 S51.002D Pertinent Medications ertapenem doxycycline Allergies Allergen Reactions ??? Infliximab Anaphylaxis and Other (See Comments) throat swelling,chest heaviness ??? Iodinated Contrast- Oral And Iv Dye Anaphylaxis ??? Iodine And Iodide Containing Products Anaphylaxis ??? Vancomycin Anaphylaxis ??? Wellbutrin [Bupropion Hcl] Other (See Comments) Causes retless leg syndrome ??? Ms Contin [Morphine] ??? Sulfa (Sulfonamide Antibiotics) ??? Sulfisoxazole ??? Sulfisoxazole Acetyl Unknown Temp: [36.6 ??C (97.9 ??F)-36.9 ??C (98.4 ??F)] Heart Rate: -- Resp: [17-18] BP: (107-137)/(61-71) SpO2: [90 %-100 %] Heart Rate from SPO2: [65 bpm-79 bpm] I examined Ms. Denton in the PACU. Drowsy but communicative. Chest clear anteriorly Abdomen soft Dressing not removed from left arm Multiple chronic joint abnormalities c/w RA Pertinent Labs WBC 11, HGb 11 Creatinine 1.06 AST 49, ALT 49 Previous cultures as above Impression/Suggestions Ms. Denton has just undergone debridement of a chronic wound overlying a left elbow prosthesis. For now, we can continue her on a carbapenem, in the form of meropenem, pending culture results from today. It is likely that we will want long-term suppressive therapy, given the presence of a contaminated prosthesis. Further advice to follow based on culture data. * Brief Op Note - Cristian Rodriguez MD - 05/28/2018 4:37 PM EDT [facility] Brief Operative Note Patient Name: Marla Denton : 1955 MR#: [id number] Case Date: 05/28/2018 Surgeon: Surgeon(s) and Role: MD Sonam - Primary MD Michael Preoperative diagnosis: elbow wound Postoperative diagnosis: elbow wound Procedure(s): FLAP, MYOCUTANEOUS OR FASCIOCUTANEOUS, UPPER EXTREMITY (WRVU 17.04) SPLIT THICK SKIN GRAFT,100 SQ CM OR LESS, ARMS (WRVU 9.9) NEUROPLASTY &/OR TRANSPOSITION, ULNAR NERVE AT ELBOW (WRVU 7.26) Anesthesia: gen Estimated Blood Loss: 30cc Specimens removed during surgery: see Dr Alvarado portion Drains: 3 x 15 tamara drains Surgical Closure: ana Implant(s): * No implants in log * Disposition: awakened from anesthesia, extubated and taken to the recovery room in a stable condition, having suffered no apparent untoward event. Condition: doing well without problems (Please see the Surgical Encounter Summary for any Implant and Specimen details pertinent to this patient.) Post-Op Plan: Wound vac down over STSG in 5 days. Q4 hr flap checks with Doppler Keep arm in sling at all times Future Appointments Date Time Provider Department Center 06/12/2018 2:20 PM Laura Lofton PA [facility] 08/27/2018 1:00 PM Azael Espinosa MD [facility] 10/03/2018 2:00 PM PFT TEST PFT [facility] 10/03/2018 3:00 PM [facility] Cristian Rodriguez MD Plastic Surgery, PGY-8 * Op Note - Erna Castro MD - 05/28/2018 3:48 PM EDT [facility] Operative Note Patient Name: Marla Denton : [id number] MR#: [id number] Case Date: 05/28/2018 Surgeon: Surgeon(s) and Role: Panel 1: * Lorie Fuller MD - Primary * Misha Celaya MD - Resident-Surgeon Gideon Panel 2: * Erna Castro MD - Primary * Cristian Rodriguez MD - Resident-Surgeon Chief * Viktoriya Anthony MD Preoperative diagnosis: elbow wound Postoperative diagnosis: elbow wound Procedure(s) (LRB): ARTHROTOMY, ELBOW, EXPLORATION, DRAINAGE, OR REMOVAL FB (WRVU 6.08) (Left) FLAP, MYOCUTANEOUS OR FASCIOCUTANEOUS, UPPER EXTREMITY (WRVU 17.04) (Left) SPLIT THICK SKIN GRAFT,100 SQ CM OR LESS, ARMS (WRVU 9.9) (N/A) NEUROPLASTY &/OR TRANSPOSITION, ULNAR NERVE AT ELBOW (WRVU 7.26) (Left) Anesthesia: General Estimated Blood Loss: * No values recorded between 05/28/2018 12:41 PM and 05/28/2018 4:29 PM * Specimens removed during surgery: * No orders in the log * Drains: Tamara x2 Surgical Closure: Primary Closure - skin incision is completely closed without any wires, rajendra, drains or other devices Disposition: awakened from anesthesia, extubated and taken to the recovery room in a stable condition, having suffered no apparent untoward event. Condition: doing well without problems (Please see the Surgical Encounter Summary for any Implant and Specimen details pertinent to this patient.) HPI/Surgical Indications/Procedure Description: This is a patient with an exposed total elbow arthoplasty after a wound complication. She was seen by Dr Fuller to manage the joint prosthesis. From an orthopedic standpoint removing this hardware would result in a joint that could not be removed and replaced and salvage would be the best functional option. Given this we discussed surgical debridementwith flap closure with a pedicled forearm flap. We discussed potential risks and complications which include but are not limited to: Pain, bleeding, infection, scarring, asymmetry, hematoma, seroma, poor cosmetic outcome, failure ofprocedure, possible need for revision, damage to adjacent structures. Description of procedure: Dr. Fuller performed his debridement of the elbow and exploration of her ulnar nerve. Her ulnar nerve was found to be intact her wound was extensively debrided removing all ofthe nonviable fibrinous tissue. At this point time once his portion of the operation was complete we then proceeded with the reconstructive portion. The skin edges of the wound were trimmed half centi meter along the entire periphery of the of the prior open wound wound. He had extended the incisionto allow for exploration. At this point time a skin flap measuring 6 x 7 cm was designed on her forearm overlying the radial artery centrally. The distal skin incision was made approximately 1 cm proximal to the distal flexion crease. At this point time incision was deepened down to the level of the radial artery. The radial artery was carefully identified and isolated and then a vascular clamp was placed on the radial artery. With radial artery occluded Doppler was used to assure adequate flowin all the fingers and it easily locatable Doppler signal was found in the thumb index middle ring and small fingers. Radial artery was then ligated and divided. Skin flap was then elevated above thelayer of the fascia and the radial artery was dissected out of its fossa. A curvilinear incision was made up to the antecubital fossa and the pedicle was then carefully mobilized. This was taken up to the level of the bifurcation of the ulnar and radial arteries. The elbow wound had been copiously irrigated it was irrigated again the flap was then brought through the wound through a tunnel subcutaneously into the elbow. This was able to be brought into the wound to cover the entire wound without tension on the pedicle or on the skin. 2 drains were placed one medial and one lateral and then the flap was inset utilizing 3-0 Vicryl sutures in the deep layer and then skin ana in the skin. The left forearm wound was closed in layers after copious irrigation and hemostasis was achieved withdeep Vicryl sutures and 4-0 Monocryl in the skin. The forearm donor site which was 6 x 7 cm was held in stable position with a pursestring suture and then a split-thickness skin graft from the left thigh was then used to cover this defect. A wound VAC was used to stabilize the skin graft. Prior to the end of the operation the Doppler was used to identify the arterial signal in the radial forearm flap which was robust and there was excellent capillary refill. Patient was then lightened from anesthesia and transferred to the recovery room in stable condition. Infection Bundle used? No Attestation: Case Date: 05/28/2018 I was present and I participated during the entire procedure (does not need to include opening and closing). ERNA CASTRO MD 06/06/2018 * Op Note - Lorie Fuller MD - 05/28/2018 2:14 PM EDT [facility] Operative Note Patient Name: Marla Denton : [id number] MR#: [id number] Case Date: 05/28/2018 Surgeon: Surgeon(s) and Role: Panel 1: * Lorie Fuller MD - Primary * Misha Celaya MD - Resident-Surgeon Gideon Panel 2: * Erna Castro MD - Primary * Cristian Rodriguez MD - Resident-Surgeon Chief Preoperative diagnosis: elbow wound Postoperative diagnosis: elbow wound Procedure(s) (LRB): ARTHROTOMY, ELBOW, EXPLORATION, DRAINAGE, OR REMOVAL FB (WRVU 6.08) (Left) FLAP, MYOCUTANEOUS OR FASCIOCUTANEOUS, UPPER EXTREMITY (WRVU 17.04) (Left) SPLIT THICK SKIN GRAFT,100 SQ CM OR LESS, ARMS (WRVU 9.9) (N/A) NEUROPLASTY &/OR TRANSPOSITION, ULNAR NERVE AT ELBOW (WRVU 7.26) (Left) Anesthesia: General Estimated Blood Loss: * No values recorded between 05/28/2018 12:41 PM and 05/28/2018 2:14 PM * Specimens removed during surgery: * No orders in the log * Drains: Surgical Closure: Primary Closure - skin incision is completely closed without any wires, rajendra, drains or other devices Disposition: Upon completion of the ulnar nerve neurolysis and decompression and the elbow arthrotomy and I&D, the case was turned over to Dr. Castro for soft tissue coverage. Condition: doing well without problems (Please see the Surgical Encounter Summary for any Implant and Specimen details pertinent to this patient.) HPI/Surgical Indications: 62-year-old female status post total elbow an outside facility with woundbreakdown and ulnar nerve dysfunction. After discussion of options, she elected to proceed with exploration of the elbow replacement, evaluation for loosening, and nerve exploration. She indicated that she would like to keep the prosthesis in place if possible, realizing this may require lifetime antibiotic suppression and that it may fail, ultimately resulting in deep infection, loosening, and need for removal of the prosthesis despite our best efforts. She also understood that the nerve may have permanent injury as well. The finalized plan also involve plastic surgery for soft tissue coverage. We went through the risks of surgery. She signed her informed consent. Procedure Description: The patient was identified in the preoperative holding area and the site of surgery was confirmed to be the left elbow. After confirming with both the patient and the informed consent, the left elbow was marked with the green poarch. The plan was reviewed with the patient andall questions were answered. The patient was then taken to the operating room. The patient was placed supine on the operating table and a general anesthetic was induced. Antibiotics were administeredintravenously. The patient was placed in the supine position taking care to pad all bony prominences. A timeout was called and all present agreed that the left elbow was the site of surgery. Arm was prepped and draped in a standard sterile fashion. Tourniquet was inflated. Arm was not exsanguinated. The wound bed was painted with methylene blue to be sure that we excised all exposed tissue. We opened the prior incision, extending 1 cm more proximally. We did not need the entire distal e xtent of the incision. Was carried sharply through skin and subcutaneous tissue. The sinus tract was ellipsed out. We identified the normal triceps at the proximal aspect of the wound. At the medial border of the normal triceps the ulnar nerve was identified about 10 cm proximal to the epicondyle. It was dissected distally to the flexor carpi ulnaris. It was densely scarred into its anteriorly transposed position and was stable in this position. This portion of the procedure took a significant amount of time and was quite difficult. Once we had achieved a complete neural lysis and decompression, the nerve was examined. The caliber was small, but the nerve was in continuity. There was no evidence of transection or significant nerve injury. We then turned our attention to the elbow. It was noted that the triceps repair had completely failed and that there was a 3-4 cm defect in the triceps. There was no mobility whatsoever to the residual tendon. It was not possible to complete a primary repair. Reconstruction with allograft his not indicated given the chronic colonization of the wound. Arthrotomy was performed. We removed all capsular tissue that was visible. Debridement was performed with scalpel, rongeurs, curettes. We took 3 sets of tissue cultures. This consisted of periprosthetic tissue and synovium. We visualized the interfaces. There was no evidence of loosening of the ulnar component or the humeral component. No eviden ce of damage the polyethylene. We did a thorough debridement and washed the prosthesis with pulsatile lavage saline. At this point, satisfied with the debridement, we turned the case over to Dr. Castro for soft tissue coverage Infection Bundle used? N/A Attestation: Case Date: 05/28/2018 I was present and I participated during the entire procedure (does not need to include opening and closing). LORIE FULLER MD 05/28/2018 documented in this encounter Plan of Treatment Not on file documented as of this encounter Procedures Procedure Name Priority Date/Time Associated Diagnosis Comments HEMOGRAM Timed 06/03/2018 1:55 PM EDT DIFFERENTIAL, AUTOMATED Timed 06/03/2018 1:55 PM EDT CBC (WITH DIFF) Timed 06/03/2018 1:55 PM EDT HEMOGRAM Routine 06/03/2018 3:51 AM EDT DIFFERENTIAL, AUTOMATED Routine 06/03/2018 3:51 AM EDT GREEN TUBE HOLD Routine 06/03/2018 3:51 AM EDT CBC (WITH DIFF) Routine 06/03/2018 3:51 AM EDT POCT GLUCOSE Routine 06/02/2018 6:05 PM EDT APTT Routine 06/02/2018 10:52 AM EDT PROTHROMBIN TIME Routine 06/02/2018 10:5 2 AM EDT CRP, ACUTE INFLAMMATION Routine 06/02/2018 10:41 AM EDT HEMOGRAM Routine 06/02/2018 10:41 AM EDT BASIC METABOLIC PANEL Routine 06/02/2018 10:41 AM EDT POCT GLUCOSE Routine 06/02/2018 6:32 AM EDT POCT GLUCOSE Routine 06/01/2018 5:47 PM EDT HEMOGLOBIN AND HEMATOCRIT, BLOOD Routine 06/01/2018 10:52 AM EDT POCT GLUCOSE Routine 06/01/2018 7:26 AM EDT POCT GLUCOSE Routine 05/31/2018 7:14 PM EDT POCT GLUCOSE Routine 05/31/2018 7:25 AM EDT SCAN, PERIPHERAL BLOOD Routine 05/31/2018 3:22 AM EDT HEMOGRAM Routine 05/31/2018 3:22 AM EDT DIFFERENTIAL, AUTOMATED Routine 05/31/2018 3:22 AM EDT CBC (WITH DIFF) Routine 05/31/2018 3:22 AM EDT POCT GLUCOSE Routine 05/30/2018 5:52 PM EDT POCT GLUCOSE Routine 05/30/2018 7:23 AM EDT XR CHEST ONE VIEW STAT 05/30/2018 3:3 4 AM EDT POCT GLUCOSE Routine 05/29/2018 6:27 PM EDT POCT GLUCOSE Routine 05/29/2018 9:43 AM EDT HEMOGRAM Routine 05/29/2018 4:22 AM EDT DIFFERENTIAL, AUTOMATED Routine 05/29/2018 4:22 AM EDT CBC (WITH DIFF) Routine 05/29/2018 4:22 AM EDT PREALBUMIN Routine 05/29/2018 4:22 AM EDT PHOSPHORUS Routine 05/29/2018 4:22 AM EDT MAGNESIUM Routine 05/29/2018 4:22 AM EDT BASIC METABOLIC PANEL Routine 05/29/2018 4:22 AM EDT NEUROPLASTY &/OR TRANSPOSITION, ULNAR NERVE AT ELBOW Routine 05/28/2018 2:14 PM EDT ANAEROBIC CULTURE Routine 05/28/2018 1:5 6 PM EDT PROSTHETIC JOINT CULTURE, EXTENDED HOLD, AEROBIC & ANAEROBIC Routine 05/28/2018 1:42 PM EDT JOINT CULTURE Routine 05/28/2018 1:42 PM EDT PROSTHETIC JOINT CULTURE, EXTENDED HOLD, AEROBIC & ANAEROBIC Routine 05/28/2018 1:30 PM EDT JOINT CULTURE Routine 05/28/2018 1:30 PM EDT ANAEROBIC CULTURE Routine 05/28/2018 1:1 8 PM EDT TREATMENT SPECIALIST CULTURE Routine 05/28/2018 1:18 PM EDT NEUROPLASTY &/OR TRANSPOSITION, ULNAR NERVE AT ELBOW (WRVU 7.26) 05/28/2018 12:02 PM EDT elbow wound SPLIT THICK SKIN GRAFT,100 SQ CM OR LESS, ARMS (WRVU 9.9) 05/28/2018 12:02 PM EDT elbow wound FLAP, MYOCUTANEOUS OR FASCIOCUTANEOUS, UPPER EXTREMITY (WRVU 17.04) 05/28/2018 12:02 PM EDT elbow wound ARTHROTOMY, ELBOW, EXPLORATION, DRAINAGE, OR REMOVAL FB (WRVU 6.08) 05/28/2018 12:02 PM EDT elbow wound PROTHROMBIN TIME STAT 05/28/2018 10:5 8 AM EDT Anticoagulated on Coumadin FLAP, MYOCUTANEOUS OR FASCIOCUTANEOUS, UPPER EXTREMITY Routine 05/28/2018 10:15 AM EDT SPLIT THICK SKIN GRAFT,100 SQ CM OR LESS, ARMS Routine 05/28/2018 10:15 AM EDT ECG SCAN 05/28/2018 12:00 AM EDT documented in this encounter Results * (ABNORMAL) Differential, Automated (06/03/2018 1:55 PM EDT) Neutrophil % 73.3 % [facility] Neutrophil Absolute 9.38(H) 1.70 - 6.10 x10(3)/ L [facility] Lymph % 15.0 % [facility] Lymphocytes Abs 1.9 0.9 - 3.2 x10(3)/[facility] Monocyte % 7.7 % [facility] Monocyte Abs 1.0(H) 0.3 - 0.9 x10(3)/[facility] Eos % 2.2 % [facility] Eosinophils Abs 0.3 0.0 - 0.4 x10(3)/[facility] Basophil % 0.8 % [facility] Baso Absolute 0.1 0.0 - 0.1 x10(3)/[facility] Immature Gran % 1.00 % [facility] Comment: Immature granulocytes(IG's)percentage and absolute count will include metamyelocytes, myelocytes, and promyelocytes. Blood smears from CBCs yielding IG's will be scanned manually for concordance. If this scan disagrees with the automated IG or if promyelocytes are noted, a manual differential will be performed. Immature Gran Absolute 0.13(H) 0.00 - 0.04 x10(3)/ L [facility] Blood specimen (specimen) 06/03/2018 1:55 PM EDT 06/03/2018 2:30 PM EDT Narrative Resulting Agency Comment Spec In Lab Julián Garcia MD HEMATOLOGY ORDERABLE S [facility] [place] [address] * (ABNORMAL) Hemogram (06/03/2018 1:55 PM EDT) White Blood Cell 12.8(H) 4.0 - 9.5 x10(3)/ L [facility] Red Blood Cell 2.88(L) 4.00 - 5.21 x10(6)/ L [facility] Hemoglobin 8.1(L) 11.7 - 15.5 gm/dL [facility] Hematocrit 24.5(L) 35.7 - 45.8 % [facility] Mean Cell Volume 85.1 82.6 - 94.4 fL [facility] Mean Cell Hemoglobin 28.1 27.1 - 32.0 pg [facility] Mean Cell Hemoglobin Concentration 33.1 31.7 - 35.0 gm/dL [facility] Platelet 364(H) 145 - 357 x10(3)/[facility] RDW Standard Deviation 63.8(H) 37.0 - 46.0 [facility] RDW coefficient of variation 21.6(H) 11.5 - 14.1 % [facility] Mean Platelet Volume 9.6 7.6 - 12.9 [facility] NRBC% auto 0.0 % [facility] NRBC Absolute 0.000 0.000 - 0.000 x10(3)/[facility] Blood specimen (specimen) 06/03/2018 1:55 PM EDT 06/03/2018 2:30 PM EDT Narrative Resulting Agency Comment Spec In Lab Julián Garcia MD HEMATOLOGY ORDERABLE S [facility] [place] [address] * Green Tube HOLD (06/03/2018 3:51 AM EDT) Pathologist [facility] [place] Hold Sample in lab. [facility] Blood specimen (specimen) Venous Draw / Unknown 06/03/2018 3:51 AM EDT 06/03/2018 3:59 AM EDT Julián Garcia MD CHEMISTRY ORDERABLES [facility] [place] [address] * (ABNORMAL) Differential, Automated (06/03/2018 3:51 AM EDT) Neutrophil % 49.6 % [facility] Neutrophil Absolute 6.52(H) 1.70 - 6.10 x10(3)/[facility] Lymph % 33.6 % [facility] Lymphocytes Abs 4.4(H) 0.9 - 3.2 x10(3)/[facility] Monocyte % 11.1 % [facility] Monocyte Abs 1.5(H) 0.3 - 0.9 x10(3)/[facility] Eos % 4.0 % [facility] Eosinophils Abs 0.5(H) 0.0 - 0.4 x10(3)/[facility] Basophil % 0.5 % [facility] Baso Absolute 0.1 0.0 - 0.1 x10(3)/[facility] Immature Gran % 1.20 % [facility] Comment: Immature granulocytes(IG's)percentage and absolute count will include metamyelocytes, myelocytes, and promyelocytes. Blood smears from CBCs yielding IG's will be scanned manually for concordance. If this scan disagrees with the automated IG or if promyelocytes are noted, a manual differential will be performed. Immature Gran Absolute 0.16(H) 0.00 - 0.04 x10(3)/ L [facility] Blood specimen (specimen) 06/03/2018 3:51 AM EDT 06/03/2018 3:59 AM EDT Narrative Resulting Agency Comment Spec In Lab Julián Garcia MD HEMATOLOGY ORDERABLE S [facility] [place] [address] * (ABNORMAL) Hemogram (06/03/2018 3:51 AM EDT) White Blood Cell 13.1(H) 4.0 - 9.5 x10(3)/mc L [facility] Red Blood Cell 2.74(L) 4.00 - 5.21 x10(6)/mc L [facility] Hemoglobin 7.5(L) 11.7 - 15.5 gm/dL [facility] Hematocrit 23.2(L) 35.7 - 45.8 % [facility] Mean Cell Volume 84.7 82.6 - 94.4 fL [facility] Mean Cell Hemoglobin 27.4 27.1 - 32.0 pg [facility] Mean Cell Hemoglobin Concentration 32.3 31.7 - 35.0 gm/dL [facility] Platelet 327 145 - 357 x10(3)/mc L [facility] RDW Standard Deviation 63.0(H) 37.0 - 46.0 [facility] RDW coefficient of variation 21.5(H) 11.5 - 14.1 % [facility] Mean Platelet Volume 9.6 7.6 - 12.9 [facility] NRBC% auto 0.2 % [facility] NRBC Absolute 0.020(H) 0.000 - 0.000 x10(3)/mc L [facility] Blood specimen (specimen) 06/03/2018 3:51 AM EDT 06/03/2018 3:59 AM EDT Narrative Resulting Agency Comment Spec In Lab Julián Garcia MD HEMATOLOGY ORDERABLE S [facility] [place] [address] * POCT Glucose (06/02/2018 6:05 PM EDT) Glucose, POC 118 65 - 199 mg/dL [facility] Comment: Supplemental ranges: <140 mg/dL before meals <180 mg/dL all other times of the day Blood specimen (specimen) 06/02/2018 6:05 PM EDT 06/02/2018 6:05 PM EDT Erna Castro MD POINT OF CARE TEST O RDERABLES Performing Organization Address [facility] Co de Phone Number [facility] [place] [address] * APTT (06/02/2018 10:52 AM EDT) Partial Thromboplastin Time 28 25 - 37 sec [facility] Comment: The PTT is NOT appropriate for heparin monitoring. Use the Anti-Xa level for heparin monitoring (HEP UFH) or LMWH monitoring (HEP LMW). A PTT less than 37 seconds generally indicates adequate hemostasis. Blood specimen (specimen) 06/02/2018 10:52 AM EDT 06/02/2018 11:00 AM EDT Narrative Resulting Agency Comment Spec In Lab Erna Castro MD HEMATOLOGY ORDERABLE S Performing Organization Address [facility] Co de Phone Number [facility] [place] [address] * Prothrombin Time (06/02/2018 10:52 AM EDT) Prothrombin Time 11.1 9.4 - 12.5 sec [facility] International Normalization Ratio 1.0 [facility] Comment: An INR <2.0 indicates [...] be appropriate depending on clinical circumstances. Blood specimen (specimen) 06/02/2018 10:52 AM EDT 06/02/2018 11:00 AM EDT Narrative Resulting Agency Comment Spec In Lab Erna Castro MD HEMATOLOGY ORDERABLE S [facility] [place] [address] * CRP, acute inflammation (06/02/2018 10:41 AM EDT) C-Reactive Protein 2.3 <=4.9 mg/L [facility] Blood specimen (specimen) Venous Draw / Unknown 06/02/2018 10:41 AM EDT 06/02/2018 10:55 AM EDT Narrative Resulting Agency Comment Spec In Lab Julián Garcia MD CHEMISTRY ORDERABLES Performing Organization Address [facility]/ZIP Co de Phone Number [facility] [place] [address] * (ABNORMAL) Basic Metabolic Panel (non-fasting) (06/02/2018 10:41 AM EDT) Glucose 154 65 - 199 mg/dL [facility] Comment:Diabetes: >=200 mg/d L plus symptoms Blood Urea Nitrogen 17 8 - 18 mg/dL [facility] Creatinine 1.08 0.70 - 1.20 mg/dL [facility] Sodium 139 135 - 145 mmol/L [facility] Potassium 4.3 3.5 - 5.0 mmol/L [facility] Comment: Please note: ??Patients with WBC >100,000 may have falsely elevated Potassium levels. ??For accurate Potassium quantification in these patients send serum separator tube (gold top) for subsequent determinations. ??Contact the Clinical Chemistry Laboratory if there are any questions. Chloride 95(L) 98 - 107 mmol/L [facility] Carbon Dioxide 29 22 - 31 mmol/L [facility] Anion Gap 15 5 - 15 mmol/L [facility] Calcium 8.9 8.5 - 10.5 mg/dL [facility] Est Glomerular Filtration Rate 56(L) >=60 mL/min/1. 73 m?? [facility] Comment: The eGFR was calculated using the CKD-EPI equation. As with all creatinine based estimates of kidney function, eGFR values calculated with the CKD-EPI equation are not accurate in patients with acute kidney failure, extremes of body mass or the acutely ill. http://[employer] http://[employer]/Mobeonnkf eGFR 65 >=60 mL/min/1. 73 m?? [facility] Comment: The eGFR was calculated using the CKD-EPI equation. As with all creatinine based estimates of kidney function, eGFR values calculated with the CKD-EPI equation are not accurate in patients with acute kidney failure, extremes of body mass or the acutely ill. http://[employer]obeonnkdep http://[employer]/[facility] EDMONDnkf Blood specimen (specimen) 06/02/2018 10:41 AM EDT 06/02/2018 10:48 AM EDT Narrative Resulting Agency Comment Spec In Lab Erna Castro MD CHEMISTRY ORDERABLES [facility] [place] [address] * (ABNORMAL) Hemogram (06/02/2018 10:41 AM EDT) White Blood Cell 14.7(H) 4.0 - 9.5 x10(3)/mc L [facility] Red Blood Cell 2.80(L) 4.00 - 5.21 x10(6)/mc L [facility] Hemoglobin 7.9(L) 11.7 - 15.5 gm/dL [facility] Comment: This result has been called to OSCAR SCHWAB RN by Toni Siu on 06 02 2018 at 1105, and has been read back. Hematocrit 23.9(L) 35.7 - 45.8 % [facility] Mean Cell Volume 85.4 82.6 - 94.4 fL [facility] Mean Cell Hemoglobin 28.2 27.1 - 32.0 pg [facility] Mean Cell Hemoglobin Concentration 33.1 31.7 - 35.0 gm/dL [facility] Platelet 304 145 - 357 x10(3)/mc L [facility] RDW Standard Deviation 63.2(H) 37.0 - 46.0 fL [facility] RDW coefficient of variation 21.2(H) 11.5 - 14.1 % [facility] Mean Platelet Volume 9.9 7.6 - 12.9 fL [facility] NRBC% auto 0.0 % [facility] NRBC Absolute 0.000 0.000 - 0.000 x10(3)/mc L [facility] Blood specimen (specimen) 06/02/2018 10:41 AM EDT 06/02/2018 10:48 AM EDT Narrative Resulting Agency Comment Spec In Lab Erna Castro MD HEMATOLOGY ORDERABLE S [facility] [place] [address] * POCT Glucose (06/02/2018 6:32 AM EDT) Glucose, POC 86 65 - 199 mg/dL [facility] Comment: Supplemental ranges: <140 mg/dL before meals <180 mg/dL all other times of the day Blood specimen (specimen) 06/02/2018 6:32 AM EDT 06/02/2018 6:32 AM EDT Erna Castro MD POINT OF CARE TEST O RDERABLES [facility] [place] [address] * POCT Glucose (06/01/2018 5:47 PM EDT) Glucose, POC 124 65 - 199 mg/dL [facility] Comment: Supplemental ranges: <140 mg/dL before meals <180 mg/dL all other times of the day Blood specimen (specimen) 06/01/2018 5:47 PM EDT 06/01/2018 5:47 PM EDT Erna Castro MD POINT OF CARE TEST O CECILIA Performing Organization Address City/[facility]/ZIP Co de Phone Number [facility] [place] [address] * (ABNORMAL) Hemoglobin and Hematocrit, blood (06/01/2018 10:52 AM EDT) [facility] Hemoglobin 9.9(L) 11.7 - 15.5 gm/dL [facility] Hematocrit 30.1(L) 35.7 - 45.8 % [facility] Blood specimen (specimen) 06/01/2018 10:52 AM EDT 06/01/2018 10:58 AM EDT Narrative Resulting Agency Comment Spec In Lab Erna Castro MD HEMATOLOGY ORDERABLE S Performing Organization Address [facility] Co de Phone Number [facility] [place] [address] * POCT Glucose (06/01/2018 7:26 AM EDT) Glucose, POC 119 65 - 199 mg/dL [facility] Comment: Supplemental ranges: <140 mg/dL before meals <180 mg/dL all other times of the day Blood specimen (specimen) 06/01/2018 7:26 AM EDT 06/01/2018 7:26 AM EDT Erna Castro MD POINT OF CARE TEST O CECILIA Performing Organization Address City/[facility]/ZIP Co de Phone Number [facility] [place] [address] * POCT Glucose (05/31/2018 7:14 PM EDT) Glucose, POC 144 65 - 199 mg/dL [facility] Comment: Supplemental ranges: <140 mg/dL before meals <180 mg/dL all other times of the day Blood specimen (specimen) 05/31/2018 7:14 PM EDT 05/31/2018 7:14 PM EDT Erna Castro MD POINT OF CARE TEST O RDERABLES Performing Organization Address [facility] Co de Phone Number [facility] [place] [address] * POCT Glucose (05/31/2018 7:25 AM EDT) Glucose, POC 94 65 - 199 mg/dL [facility] Comment: Supplemental ranges: <140 mg/dL before meals <180 mg/dL all other times of the day Blood specimen (specimen) 05/31/2018 7:25 AM EDT 05/31/2018 7:25 AM EDT Lorie Fuller MD POINT OF CARE TEST O CECILIA Performing Organization Address [facility] Co de Phone Number [facility] [place] [address] * Scan, Peripheral Blood (05/31/2018 3:22 AM EDT) [facility] Plat estimate Normal [facility] RBC Morphology Normal [facility] Blood specimen (specimen) 05/31/2018 3:22 AM EDT 05/31/2018 3:37 AM EDT Narrative Resulting Agency Comment Spec In Lab Ramila DOMINGUEZ HEMATOLOGY ORDERA BLES Performing Organization Address [facility] Co de Phone Number [facility] [place] [address] * (ABNORMAL) Differential, Automated (05/31/2018 3:22 AM EDT) [facility] Neutrophil % 55.2 % [facility] Neutrophil Absolute 7.57(H) 1.70 - 6.10 x10(3)/ L [facility] Lymph % 28.7 % [facility] Lymphocytes Abs 3.9(H) 0.9 - 3.2 x10(3)/[facility] Monocyte % 11.0 % [facility] Monocyte Abs 1.5(H) 0.3 - 0.9 x10(3)/[facility] Eos % 3.7 % [facility] Eosinophils Abs 0.5(H) 0.0 - 0.4 x10(3)/[facility] Basophil % 0.7 % [facility] Baso Absolute 0.1 0.0 - 0.1 x10(3)/[facility] Immature Gran % 0.70 % [facility] Comment: Immature granulocytes(IG's)percentage and absolute count will include metamyelocytes, myelocytes, and promyelocytes. Blood smears from CBCs yielding IG's will be scanned manually for concordance. If this scan disagrees with the automated IG or if promyelocytes are noted, a manual differential will be performed. Immature Gran Absolute 0.10(H) 0.00 - 0.04 x10(3)/[facility] Blood specimen (specimen) 05/31/2018 3:22 AM EDT 05/31/2018 3:37 AM EDT Narrative Resulting Agency Comment Spec In Lab Ramila DOMINGUEZ HEMATOLOGY ORDERA BLES [facility] [place] [address] * (ABNORMAL) Hemogram (05/31/2018 3:22 AM EDT) White Blood Cell 13.7(H) 4.0 - 9.5 x10(3)/[facility] Red Blood Cell 3.05(L) 4.00 - 5.21 x10(6)/mc L [facility] Hemoglobin 8.3(L) 11.7 - 15.5 gm/dL [facility] Hematocrit 26.1(L) 35.7 - 45.8 % [facility] Mean Cell Volume 85.6 82.6 - 94.4 fL [facility] Mean Cell Hemoglobin 27.2 27.1 - 32.0 pg [facility] Mean Cell Hemoglobin Concentration 31.8 31.7 - 35.0 gm/dL [facility] Platelet 267 145 - 357 x10(3)/mc L [facility] RDW Standard Deviation 63.8(H) 37.0 - 46.0 fL [facility] RDW coefficient of variation 20.9(H) 11.5 - 14.1 % [facility] Mean Platelet Volume 10.1 7.6 - 12.9 fL [facility] NRBC% auto 0.0 % [facility] NRBC Absolute 0.000 0.000 - 0.000 x10(3)/mc L [facility] Blood specimen (specimen) 05/31/2018 3:22 AM EDT 05/31/2018 3:37 AM EDT Narrative Resulting Agency Comment Spec In Lab Ramila DOMINGUEZ HEMATOLOGY ORDERA BLES Performing Organization Address City/[facility] de Phone Number [facility] [place] [address] * POCT Glucose (05/30/2018 5:52 PM EDT) Glucose, POC 141 65 - 199 mg/dL [facility] Comment: Supplemental ranges: <140 mg/dL before meals <180 mg/dL all other times of the day Blood specimen (specimen) 05/30/2018 5:52 PM EDT 05/30/2018 5:52 PM EDT Lorie Fuller MD POINT OF CARE TEST O RDERABLES [facility] [place] [address] * POCT Glucose (05/30/2018 7:23 AM EDT) Glucose, POC 98 65 - 199 mg/dL [facility] Comment: Supplemental ranges: <140 mg/dL before meals <180 mg/dL all other times of the day Blood specimen (specimen) 05/30/2018 7:23 AM EDT 05/30/2018 7:23 AM EDT Lorie Fuller MD POINT OF CARE TEST O RDERABLES Performing Organization Address [facility]/ZIP Co de Phone Number [facility] [place] [address] * XR Chest PA or AP 1 view (05/30/2018 3:34 AM EDT) Anatomical Region Laterality Modality Chest N/A Digital Radiogra phy Impressions 05/30/2018 3:56 AM EDT 1. ??Right PICC tip has retracted and now lies at the axillary vein. 2. ??Mild pulmonary vascular congestion. Narrative 05/30/2018 3:56 AM EDT EXAMINATION: XR CHEST PA OR AP 1 VIEW CLINICAL HISTORY: PICC line placement (placed at outside hospital) TECHNIQUE: AP chest COMPARISON: April 24, 2018 FINDINGS: A right PICC terminates in the region of the axillary vein. Very mild pulmonary vascular congestion. Minimal linear atelectasis at the left midlung. No focal consolidation, pleural effusion or pneumothorax. The cardiomediastinal silhouette is is within normal limits. 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 Advanced degenerative changes of the left glenohumeral joint are also noted. Procedure Note Elisabeth Colin MD - 05/30/2018 EXAMINATION: XR CHEST PA OR AP 1 VIEW CLINICAL HISTORY: PICC line placement (placed at outside hospital) TECHNIQUE: AP chest COMPARISON: April 24, 2018 FINDINGS: A right PICC terminates in the region of the axillary vein. Very mild pulmonary vascular congestion. Minimal linear atelectasis at theleft midlung. No focal consolidation, pleural effusion or pneumothorax. The cardiomediastinal silhouette is is within normal limits. Changes ofright glenohumeral hemiarthroplasty are again seen. Advanced degenerativechanges of the left glenohumeral joint are also noted. IMPRESSION 1. Right PICC tip has retracted and now lies at the axillary vein. 2. Mild pulmonary vascular congestion. Lorie Fuller MD IMG DX ORDERABLES * POCT Glucose (05/29/2018 6:27 PM EDT) Glucose, POC 117 65 - 199 mg/dL [facility] Comment: Supplemental ranges: <140 mg/dL before meals <180 mg/dL all other times of the day Blood specimen (specimen) 05/29/2018 6:27 PM EDT 05/29/2018 6:27 PM EDT Lorie Fuller MD POINT OF CARE TEST O RDERABLES Performing Organization Address [facility] Co de Phone Number [facility] [place] [address] * POCT Glucose (05/29/2018 9:43 AM EDT) Glucose, POC 171 65 - 199 mg/dL [facility] Comment: Supplemental ranges: <140 mg/dL before meals <180 mg/dL all other times of the day Blood specimen (specimen) 05/29/2018 9:43 AM EDT 05/29/2018 9:43 AM EDT Lorie Fuller MD POINT OF CARE TEST O RDERAANDREW Performing Organization Address City/[facility]/ZIP Co de Phone Number [facility] [place] [address] * (ABNORMAL) Differential, Automated (05/29/2018 4:22 AM EDT) Neutrophil % 85.3 % [facility] Neutrophil Absolute 13.67(H) 1.70 - 6.10 x10(3)/[facility] Lymph % 8.9 % [facility] Lymphocytes Abs 1.4 0.9 - 3.2 x10(3)/[facility] Monocyte % 5.0 % [facility] Monocyte Abs 0.8 0.3 - 0.9 x10(3)/[facility] Eos % 0.0 % [facility] Eosinophils Abs 0.0 0.0 - 0.4 x10(3)/[facility] Basophil % 0.1 % [facility] Baso Absolute 0.0 0.0 - 0.1 x10(3)/[facility] Immature Gran % 0.70 % [facility] Comment: Immature granulocytes(IG's)percentage and absolute count will include metamyelocytes, myelocytes, and promyelocytes. Blood smears from CBCs yielding IG's will be scanned manually for concordance. If this scan disagrees with the automated IG or if promyelocytes are noted, a manual differential will be performed. Immature Gran Absolute 0.12(H) 0.00 - 0.04 x10(3)/[facility] Blood specimen (specimen) 05/29/2018 4:22 AM EDT 05/29/2018 4:52 AM EDT Narrative Resulting Agency Comment Spec In Lab Cristian Rodriguez MD HEMATOLOGY O RDERABLES [facility] [place] [address] * (ABNORMAL) Hemogram (05/29/2018 4:22 AM EDT) White Blood Cell 16.0(H) 4.0 - 9.5 x10(3)/[facility] Red Blood Cell 3.29(L) 4.00 - 5.21 x10(6)/[facility] Hemoglobin 8.7(L) 11.7 - 15.5 gm/dL [facility] Hematocrit 28.2(L) 35.7 - 45.8 % [facility] Mean Cell Volume 85.7 82.6 - 94.4 fL [facility] Mean Cell Hemoglobin 26.4(L) 27.1 - 32.0 pg [facility] Mean Cell Hemoglobin Concentration 30.9(L) 31.7 - 35.0 gm/dL [facility] Platelet 291 145 - 357 x10(3)/[facility] RDW Standard Deviation 62.7(H) 37.0 - 46.0 [facility] RDW coefficient of variation 20.0(H) 11.5 - 14.1 % [facility] Mean Platelet Volume 9.8 7.6 - 12.9 [facility] NRBC% auto 0.0 % [facility] NRBC Absolute 0.000 0.000 - 0.000 x10(3)/[facility] Blood specimen (specimen) 05/29/2018 4:22 AM EDT 05/29/2018 4:52 AM EDT Narrative Resulting Agency Comment Spec In Lab Cristian Rodriguez MD HEMATOLOGY O RDERABLES [facility] [place] [address] * (ABNORMAL) Prealbumin (05/29/2018 4:22 AM EDT) Prealbumin 17(L) 20 - 40 mg/dL [facility] Comment: Prealbumin levels are generally lower in the pediatric population; adult concentrations are usually attained near puberty. Blood specimen (specimen) 05/29/2018 4:22 AM EDT 05/29/2018 4:52 AM EDT Narrative Resulting Agency Comment Spec In Lab Erna Castro MD CHEMISTRY ORDERABLES Performing Organization Address City/[facility]/ZIP Co de Phone Number [facility] [place] [address] * Phosphorus (05/29/2018 4:22 AM EDT) Phosphorus 3.0 2.5 - 4.5 mg/dL [facility] Blood specimen (specimen) 05/29/2018 4:22 AM EDT 05/29/2018 4:52 AM EDT Narrative Resulting Agency Comment Spec In Lab Erna Castro MD CHEMISTRY ORDERABLES Performing Organization Address [facility] Co de Phone Number [facility] [place] [address] * Magnesium (05/29/2018 4:22 AM EDT) Magnesium 0.70 0.69 - 1.07 mmol/L [facility] Blood specimen (specimen) 05/29/2018 4:22 AM EDT 05/29/2018 4:52 AM EDT Narrative Resulting Agency Comment Spec In Lab Erna Castro MD CHEMISTRY ORDERABLES Performing Organization Address [facility] Co de Phone Number [facility] [place] [address] * (ABNORMAL) Basic Metabolic Panel (non-fasting) (05/29/2018 4:22 AM EDT) Glucose 159 65 - 199 mg/dL [facility] Comment:Diabetes: >=200 mg/d L plus symptoms Blood Urea Nitrogen 12 8 - 18 mg/dL [facility] Creatinine 0.92 0.70 - 1.20 mg/dL [facility] Sodium 142 135 - 145 mmol/L [facility] Potassium 4.2 3.5 - 5.0 mmol/L [facility] Comment: Please note: ??Patients with WBC >100,000 may have falsely elevated Potassium levels. ??For accurate Potassium quantification in these patients send serum separator tube (gold top) for subsequent determinations. ??Contact the Clinical Chemistry Laboratory if there are any questions. Chloride 100 98 - 107 mmol/L [facility] Carbon Dioxide 29 22 - 31 mmol/L [facility] Anion Gap 13 5 - 15 mmol/L [facility] Calcium 8.3(L) 8.5 - 10.5 mg/dL [facility] Est Glomerular Filtration Rate 68 >=60 mL/min/1. 73 m?? [facility] Comment: The eGFR was calculated using the CKD-EPI equation. As with all creatinine based estimates of kidney function, eGFR values calculated with the CKD-EPI equation are not accurate in patients with acute kidney failure, extremes of body mass or the acutely ill. http://[employer]/Mobeonnkdep [email or web address] eGFR 78 >=60 mL/min/1. 73 m?? [facility] Comment: The eGFR was calculated using the CKD-EPI equation. As with all creatinine based estimates of kidney function, eGFR values calculated with the CKD-EPI equation are not accurate in patients with acute kidney failure, extremes of body mass or the acutely ill. http://[employer]/Mobeonnkdep http://[employer]/DHMCnkf Blood specimen (specimen) 05/29/2018 4:22 AM EDT 05/29/2018 4:52 AM EDT Narrative Resulting Agency Comment Spec In Lab Erna Castro MD CHEMISTRY ORDERABLES [facility] [place] [address] * Anaerobic Culture (05/28/2018 1:56 PM EDT) Anaerobic Culture No anaerobic organisms isolated [facility] Joint specimen (specimen) LEFT ELBOW REGION STRUCTURE / Unknown 05/28/2018 1:56 PM EDT 05/28/2018 1:56 PM EDT Comment:THELMA PROSTHETIC TISS UE LEFT ELBOW Narrative Resulting Agency Comment Spec In Lab Lorie Fuller MD MICROBIOLOGY - GENER AL ORDERABLES Performing Organization Address City/[facility] Co de Phone Number [facility] [place] [address] * Joint Culture (05/28/2018 1:42 PM EDT) Joint Culture No growth at 14 days. [facility] Gram Stain Few White Blood Cells seen No microorganisms seen. [facility] Joint specimen (specimen) LEFT ELBOW REGION STRUCTURE / Unknown 05/28/2018 1:42 PM EDT 05/28/2018 1:42 PM EDT Comment:PERIPROSTHETIC TISSU E Narrative Resulting Agency Comment Spec In Lab Lorie Fuller MD MICROBIOLOGY - GENER AL ORDERABLES Performing Organization Address [facility] Co de Phone Number [facility] [place] [address] * Joint Culture (05/28/2018 1:30 PM EDT) Joint Culture No growth at 14 days. [facility] Gram Stain Few White Blood Cells seen No microorganisms seen. [facility] Joint specimen (specimen) LEFT ELBOW REGION STRUCTURE / Unknown 05/28/2018 1:30 PM EDT 05/28/2018 1:56 PM EDT Comment:THELMA PROSTHETIC TISS UE LEFT ELBOW Narrative Resulting Agency Comment Spec In Lab Lorie Fuller MD MICROBIOLOGY - GENER AL ORDERABLES Performing Organization Address [facility] Co de Phone Number [facility] [place] [address] * Anaerobic Culture (05/28/2018 1:18 PM EDT) Anaerobic Culture No anaerobic organisms isolated [facility] Joint specimen (specimen) LEFT ELBOW REGION STRUCTURE / Unknown 05/28/2018 1:18 PM EDT 05/28/2018 1:42 PM EDT Comment:PERIPROSTHETIC TISSU E Narrative Resulting Agency Comment Spec In Lab Lorie Fuller MD MICROBIOLOGY - GENER AL ORDERABLES Performing Organization Address City/[facility]/ZIP Co de Phone Number [facility] [place] [address] * Book Cleaner Culture Other (05/28/2018 1:18 PM EDT) Book Cleaner Culture No growth [facility] Specimen of unknown material (specimen) 05/28/2018 1:18 PM EDT 05/28/2018 1:54 PM EDT Comment:SUTURE MATERIAL LEFT ELBOW Narrative Resulting Agency Comment Spec In Lab Lorie Fuller MD MICROBIOLOGY - GENER AL ORDERABLES Performing Organization Address [facility] Co de Phone Number [facility] [place] [address] * (ABNORMAL) Prothrombin Time (05/28/2018 10:58 AM EDT) Prothrombin Time 12.9(H) 9.4 - 12.5 sec [facility] International Normalization Ratio 1.2 [facility] Comment: An INR <2.0 indicates [...] be appropriate depending on clinical circumstances. Blood specimen (specimen) 05/28/2018 10:58 AM EDT 05/28/2018 11:11 AM EDT Narrative Resulting Agency Comment Spec In Lab Emmy Ayon Hussein ESL INSTRUCTOR HEMATOLOGY ORDERABLE S Performing Organization Address [facility] Co de Phone Number [facility] [place] [address] * SCAN DOC: ECG (05/28/2018 12:00 AM EDT) Narrative 05/28/2018 12:00 AM EDT Ordered by an unspecified provider. Scanning Provider MEDIA MGR SCAN EXT O RDR/RSLT documented in this encounter Visit Diagnoses Diagnosis S/P left elbow I&D, radial forearm flap (plastics) for dehiscence over TEA 05/28/18 Dr. Fuller- Primary Anticoagulated on Coumadin Encounter for therapeutic drug monitoring Elbow wound, left, 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 documented in this encounter Administered Medications Inactive Administered Medications - up to 3 most recent administrations Medication Order MAR Action Action Date Dose Rate Site acetaminophen (TYLENOL) tablet 1,000 mg 1,000 mg, Oral, ONCE, 1 dose, On Sat05/28/18 at 1045, Maximum dose of acetaminophen is 4000 mg from all sources in 24 hours., Day of Surgery (Day of Procedure), Routine Given 05/28/2018 11:05 AM EDT 1,000 mg acetaminophen (TYLENOL) tablet 1,000 mg 1,000 mg, Oral, EVERY 8 HOURS SCHEDULED, First dose on Sat05/28/18 at 2200, Until Discontinued, Maximum total acetaminophen dose 4 grams per 24 hours., Routine Given 05/29/2018 5:57 AM EDT 1,000 mg Given 05/28/2018 9:22 PM EDT 1,000 mg acetaminophen (TYLENOL) tablet 1,000 mg 1,000 mg, Oral, EVERY 6 HOURS SCHEDULED, First dose (after last modification) on Cherry 05/29/18 at 1800, Until Discontinued, Maximum total acetaminophen dose 4 grams per 24 hours., Routine Given 06/03/2018 12:32 PM EDT 1,000 mg Given 06/03/2018 5:58 AM EDT 1,000 mg Given 06/02/2018 11:59 PM EDT 1,000 mg atorvastatin (LIPITOR) tablet 20 mg 20 mg, Oral, EVERY EVENING, First dose on Sat05/28/18 at 2015, Until Discontinued, Routine Given 06/02/2018 5:56 PM EDT 20 mg Given 06/01/2018 6:01 PM EDT 20 mg Given 05/31/2018 5:34 PM EDT 20 mg budesonide-formoterol (SYMBICORT) 160-4.5 mcg/actuation inhaler 2 Inhalation 2 .Inhalation , Inhalation, 2 TIMES DAILY, First dose on Sat05/29/18 at 2230, Until Discontinued, Routine Given 06/03/2018 8:00 AM EDT 2 .Inhalat ion Given 06/02/2018 9:22 PM EDT 2 .Inhalation Given 06/02/2018 7:54 AM EDT 2 .Inhalation diphenhydrAMINE (BENADRYL) capsule 25 mg 25 mg, Oral, EVERY 6 HOURS PRN, Starting on Sat05/28/18 at 2005, Until Sat06/03/18 at 1753, Itching, Patient requests to take this the same time as the Methadone, Routine Given 06/03/2018 5:58 AM EDT 25 m g Given 06/02/2018 9:23 PM EDT 25 mg Given 06/01/2018 9:21 PM EDT 25 mg docusate sodium (COLACE) capsule 100 mg 100 mg, Oral, 2 TIMES DAILY, First dose on Sat05/28/18 at 2100, Until Discontinued, Routine Given 06/03/2018 8:01 AM EDT 100 mg Given 06/02/2018 9:23 PM EDT 100 mg Given 06/02/2018 7:56 AM EDT 100 mg enoxaparin (LOVENOX) injection 120 mg 120 mg, Subcutaneous, NIGHTLY, First dose on Sat05/29/18 at 2100, Until Discontinued, Routine Given 05/31/2018 8:23 PM EDT 120 mg Given 05/30/2018 9:11 PM EDT 120 mg Given 05/29/2018 9:42 PM EDT 120 mg enoxaparin (LOVENOX) injection 120 mg 120 mg, Subcutaneous, NIGHTLY, First dose (after last reorder) on Sat06/02/18 at 2100, Until Discontinued, Routine Given 06/02/2018 9:22 PM EDT 120 mg enoxaparin (LOVENOX) injection 40 mg 40 mg, Subcutaneous, NIGHTLY, First dose on Sat05/28/18 at 2100, Until Discontinued, Routine Given 05/28/2018 9:24 PM EDT 40 mg gabapentin (NEURONTIN) capsule 600 mg 600 mg, Oral, ONCE, 1 dose, On Sat05/28/18 at 1045, Day of Surgery (Day of Procedure), Routine Given 05/28/2018 11:05 AM EDT 600 mg gabapentin (NEURONTIN) capsule 600 mg 600 mg, Oral, 3 TIMES DAILY, First dose on Sat05/28/18 at 2100, Until Discontinued, Routine Given 05/29/2018 8:40 AM EDT 600 mg Given 05/28/2018 9:23 PM EDT 600 mg gabapentin (NEURONTIN) capsule 900 mg 900 mg, Oral, 3 TIMES DAILY, First dose (after last modification) on Cherry 05/29/18 at 1500, Until Discontinued, Routine Given 06/03/2018 2:57 PM EDT 900 mg Given 06/03/2018 8:00 AM EDT 900 mg Given 06/02/2018 9:23 PM EDT 900 mg HYDROmorphone (DILAUDID) injection 0.2-0.4 mg 0.2-0.4 mg, Intravenous, EVERY 5 MIN PRN, Starting on Sat05/28/18 at 1719, Until Sat05/28/18 at 1947, Pain, Give 0.2 mg every 5 minutes PRN for mild to moderate pain (1-5) Give 0.4 mg every 5 minutes PRN for moderate to severe pain (6-10). Hold for respiratory rate less than 10 per minute. Maximum dose 4 mg over one hour. If multiple pain medications are ordered, start with hydromorphone or morphine and use fentanyl for breakthrough pain., PACU Recovery, Routine Given 05/28/2018 7:01 PM EDT 0.4 mg Given 05/28/2018 6:35 PM EDT 0.4 mg Given 05/28/2018 6:15 PM EDT 0.2 mg HYDROmorphone (DILAUDID) injection 0.4 mg 0.4 mg, Intravenous, EVERY 2 HOURS PRN, Starting on Sat05/29/18 at 1256, Until Sat06/03/18 at 1753, Pain, For breakthrough pain, Routine lactated Ringers infusion 1,000 mL 1,000 mL, at 100 mL/hr, Intravenous, CONTINUOUS, Starting on Sat05/28/18 at 1045, Until Sat05/28/18 at 1947, Day of Surgery (Day of Procedure) New Bag 05/28/2018 3:45 PM EDT New Bag 05/28/2018 11:05 AM EDT 1,000 mLs 100 mL/hr Lactobacillus (BACID) tablet 1 tablet 1 tablet, Oral, DAILY, First dose on Sat05/28/18 at 2030, Until Discontinued, Routine Given 05/28/2018 10:00 PM EDT 1 tablet Lactobacillus acidoph-pectin 75 million cell -100 mg Cap 1 tablet 1 tablet, Oral, DAILY, First dose on Sat05/29/18 at 1200, Until Discontinued, Routine Given 06/03/2018 8:01 AM EDT 1 tablet Given 06/02/2018 7:54 AM EDT 1 tablet Given 06/01/2018 8:41 AM EDT 1 tablet leflunomide (ARAVA) tablet 20 mg 20 mg, Oral, DAILY, First dose on Sat05/28/18 at 2045, Until Discontinued, Routine Given 06/03/2018 8:01 AM EDT 20 mg Given 06/02/2018 7:54 AM EDT 20 mg Given 06/01/2018 8:41 AM EDT 20 mg levothyroxine (SYNTHROID) tablet 125 mcg 125 mcg, Oral, EVERY MORNING, First dose on Sat05/29/18 at 0600, Until Discontinued, Routine Given 06/03/2018 5:58 AM EDT 125 mcg Given 06/02/2018 5:39 AM EDT 125 mcg Given 06/01/2018 5:05 AM EDT 125 mcg MEROpenem (MERREM) 1g vial attach to sodium chloride 0.9% 100 mL Mini-Bag Plus 1 g, Intravenous, EVERY 8 HOURS, First dose on Sat05/28/18 at 2030, Until Discontinued, Administer over 30 Minutes, Indication for (Active or Suspected): Skin/Skin Structure, Restricted Antibiotic: Please indicate the most appropriate choice: ID Approval by Hieu Cosme New Bag 05/31/2018 5:29 AM EDT 1 g 2 00 mL/hr New Bag 05/30/2018 9:12 PM EDT 1 g 200 mL/hr New Bag 05/30/2018 12:00 PM EDT 1 g 200 mL/hr methadone (DOLOPHINE) tablet 20 mg 20 mg, Oral, ONCE, 1 dose, On Sat05/28/18 at 1145, Day of Surgery (Day of Procedure), STAT Given 05/28/2018 11: 55 AM EDT 20 mg methadone (DOLOPHINE) tablet 20 mg 20 mg, Oral, ONCE, 1 dose, On Sat05/28/18 at 2030, Routine Given 05/28/2018 9:23 PM EDT 20 mg methadone (DOLOPHINE) tablet 20 mg 20 mg, Oral, EVERY 12 HOURS SCHEDULED (2 times per day), First dose on Cherry 05/29/18 at 0900, Until Discontinued, Routine Given 05/29/2018 8:39 AM EDT 20 mg methadone (DOLOPHINE) tablet 20 mg 20 mg, Oral, EVERY 8 HOURS SCHEDULED, First dose (after last modification) on Cherry 05/29/18 at 1400, Until Discontinued, Routine Given 06/03/2018 2:57 PM EDT 20 mg Given 06/03/2018 5:58 AM EDT 20 mg Given 06/02/2018 9:22 PM EDT 20 mg ondansetron (ZOFRAN) injection 4 mg 4 mg, Intravenous, EVERY 8 HOURS PRN, Starting on Sat05/28/18 at 2005, Until Sat06/03/18 at 1753, Nausea, May repeat times one in 30 minutes if ineffective. If multiple antiemetics are ordered, use ondanstron first, Recovery (Recovery-Hospital Unit) ondansetron (ZOFRAN) tablet 4 mg 4 mg, Oral, EVERY 8 HOURS PRN, Starting on Sat05/28/18 at 2005, Until Sat06/03/18 at 1753, Nausea, Vomiting, If multiple antiemetics are ordered, use ondansetron first. PO Preferred. If patient unable to take PO, may give IV if ordered. May repeat times one in 45 minutes if ineffective., Recovery (Recovery-Hospital Unit), Routine oxyCODONE (ROXICODONE) immediate release tablet 10-15 mg 10-15 mg, Oral, EVERY 4 HOURS PRN, Starting on Sat05/28/18 at 1734, Until Sat06/03/18 at 1753, Pain, severe pain (7-10), Initial dose 10mg. If pain control not adequate in 60 minutes, give additional 5mg, Routine Given 06/03/2018 7:57 AM EDT 10 mg Given 06/03/2018 3:55 AM EDT 10 mg Given 06/02/2018 10:19 PM EDT 10 mg oxyCODONE (ROXICODONE) immediate release tablet 5-10 mg 5-10 mg, Oral, EVERY 4 HOURS PRN, Starting on Sat05/28/18 at 1734, Until Sat06/03/18 at 1753, Pain, moderate pain (4-6), Initial dose 5mg. If pain control not adequate in 60 minutes, give additional 5mg, Routine Given 06/03/2018 12:31 PM EDT 10 mg Given 05/31/2018 12:42 AM EDT 5 mg Given 05/29/2018 5:32 PM EDT 10 mg polyethylene glycol (MIRALAX) packet 17 g 17 g, Oral, DAILY PRN, Starting on Sat05/28/18 at 2005, Until Sat06/03/18 at 1753, Constipation, Administer if no bowel movement within 48 hours to achieve: (1) One bowel movement at least every 48 hours, AND (2) without straining. If multiple PRN bowel medications ordered, start with polyethylene glycol, then lactulose, then oral bisacodyl, then bisacodyl suppository, then magnesium citrate, then tap water enema. Multiple medications may be given concomitantly for constipation., Routine Given 06/01/2018 8:40 AM EDT 17 g Given 05/31/2018 8:29 AM EDT 17 g Given 05/30/2018 8:46 AM EDT 17 g predniSONE (DELTASONE) tablet 7.5 mg 7.5 mg, Oral, DAILY, First dose on Sat05/28/18 at 2030, Until Discontinued, Routine Given 06/03/2018 8:00 AM EDT 7.5 mg Given 06/02/2018 7:56 AM EDT 7.5 mg Given 06/01/2018 8:37 AM EDT 7.5 mg sodium chloride 0.9 % flush 5 mL 5 mL, Intravenous, 2 TIMES DAILY, First dose on Sat05/28/18 at 2100, Until Discontinued, Recovery (Recovery-Hospital Unit), Routine Given 06/03/2018 8:01 AM EDT 5 mLs Given 06/02/2018 9:22 PM EDT 5 mLs Given 06/02/2018 7:57 AM EDT 5 mLs sodium chloride 0.9% infusion 1,000 mL, at 100 mL/hr, Intravenous, CONTINUOUS, Starting on Sat05/28/18 at 1800, Until Cherry 05/29/18 at 1412, Recovery (Recovery-Hospital Unit) New Bag 05/29/2018 4:25 AM EDT 1,000 mLs 100 mL/hr New Bag 05/28/2018 6:01 PM EDT 1,000 mLs 100 mL/hr sulfamethoxazole-trimethoprim (BACTRIM DS) 800-160 mg per tablet 1 tablet 1 tablet, Oral, EVERY 12 HOURS SCHEDULED (2 times per day), First dose on 05/31/18 at 1800, Until Discontinued, Routine, Indication for (Active or Suspected): Skin/Skin Structure Given 06/03/2018 8:01 AM EDT 1 tablet Given 06/02/2018 9:23 PM EDT 1 tablet Given 06/02/2018 7:56 AM EDT 1 tablet sulfamethoxazole-trimethoprim (BACTRIM;SEPTRA) 400-80 mg per tablet 1 tablet 1 tablet, Oral, ONCE, 1 dose, On 05/31/18 at 0800, Routine, Indication for (Active or Suspected): Skin/Skin Structure / test dose Given 05/31/2018 8:29 AM EDT 1 tablet sulfamethoxazole-trimethoprim (BACTRIM;SEPTRA) 400-80 mg per tablet 1 tablet 1 tablet, Oral, ONCE, 1 dose, On 05/31/18 at 1145, Routine, Indication for (Active or Suspected): Skin/Skin Structure Given 05/31/2018 1:05 P M EDT 1 tablet zolpidem (AMBIEN) tablet 5 mg 5 mg, Oral, NIGHTLY PRN, Starting on Cherry 05/29/18 at 1254, Until Sat06/03/18 at 1753, Sleep, Routine Given 05/31/2018 9:32 PM EDT 5 mg documented in this encounter Active and Recently Administered Medications Times are shown in EDT. Scheduled Medication Order 06/01/2018 06/02/2018 06/03/2018 acetaminophen (TYLENOL) tablet 1,000 mg 1,000 mg, Oral, EVERY 6 HOURS SCHEDULED, First dose (after last modification) on Cherry 05/29/18 at 1800, Until Discontinued, Maximum total acetaminophen dose 4 grams per 24 hours., Routine 0505 (Given - Provider: Yulissa Omalley RN)1156 (Given - Provider: Oscar Schwab RN)1801 (Given - Provider: Oscar Schwab RN) 0039 (Given - Provider: Rosetta Joiner RN)0539 (Given - Provider: Rosetta B Rhys, RN)1251 (Given - Provider: Oscar Schwab RN)1756 (Given - Provider: Oscar Schwab RN)2359 (Given - Provider: Rosetta Joiner RN) 0558 (Given - Provider: Rosetta Joiner RN)1232 (Given - Provider: Oscar Schwab RN) atorvastatin (LIPITOR) tablet 20 mg 20 mg, Oral, EVERY EVENING, First dose on Sat05/28/18 at 2015, Until Discontinued, Routine 1801 (Given - Provider: Oscar Schwab RN) 1756 (Given - Provider: Oscar Schwab RN) budesonide-formoterol (SYMBICORT) 160-4.5 mcg/actuation inhaler 2 Inhalation 2 .Inhalation , Inhalation, 2 TIMES DAILY, First dose on Sat05/29/18 at 2230, Until Discontinued, Routine 0842 (Given - Provider: Oscar Schwab RN)2120 (Given - Provider: Rosetta Joiner RN) 0754 (Given - Provider: Oscar Schwab RN)0900 (Canceled Entry - Provider: Oscar Schwab RN - Reason: See comment - Comment: already administered)2121 (Given - Provider: Rosetta Joiner RN) 0800 (Given - Provider: Oscar Schwab RN) docusate sodium (COLACE) capsule 100 mg 100 mg, Oral, 2 TIMES DAILY, First dose on Sat05/28/18 at 2100, Until Discontinued, Routine 0838 (Given - Provider: Oscar Schwab RN)212 (Given - Provider: Rosetta Joiner RN) 075 (Given - Provider: Oscar Schwab RN)0900 (Canceled Entry - Provider: Oscar Schwab RN - Reason: See comment - Comment: already administered)212 (Given - Provider: Rosetta Joiner RN) 0801 (Given - Provider: Oscar Schwab RN) enoxaparin (LOVENOX) injection 120 mg 120 mg, Subcutaneous, NIGHTLY, First dose (after last reorder) on Sat06/02/18 at 2100, Until Discontinued, Routine 212 (Given - Provider: Rosetta Joiner RN) gabapentin (NEURONTIN) capsule 900 mg 900 mg, Oral, 3 TIMES DAILY, First dose (after last modification) on Sat05/29/18 at 1500, Until Discontinued, Routine 0837 (Given - Provider: Oscar Schwab RN)1436 (Given - Provider: Oscar Schwab RN)2121 (Given - Provider: Rosetta Joiner, [place]) 0755 (Given - Provider: Oscar Schwab RN)0900 (Canceled Entry - Provider: Oscar Schwab RN - Reason: See comment - Comment: already administered)1500 (Given - Provider: Oscar Schwab RN)2123 (Given - Provider: Rosetta Joiner, [place]) 0800 (Given - Provider: Oscar Schwab RN)1457 (Given - Provider: Oscar Schwab RN) Lactobacillus acidoph-pectin 75 million cell -100 mg Cap 1 tablet 1 tablet, Oral, DAILY, First dose on Sat05/29/18 at 1200, Until Discontinued, Routine 0841 (Given - Provider: Oscar Schwab RN) 0754 (Given - Provider: Oscar Schwab RN)0900 (Canceled Entry - Provider: Oscar Schwab RN - Reason: See comment - Comment: already administered) 0801 (Given - Provider: Oscar Schwab RN) leflunomide (ARAVA) tablet 20 mg 20 mg, Oral, DAILY, First dose on Sat05/28/18 at 2045, Until Discontinued, Routine 0841 (Given - Provider: Oscar Schwab RN) 0754 (Given - Provider: Oscar Schwab RN)0900 (Canceled Entry - Provider: Oscar Schwab RN - Reason: See comment - Comment: already administered) 0801 (Given - Provider: Oscar Schwab RN) levothyroxine (SYNTHROID) tablet 125 mcg 125 mcg, Oral, EVERY MORNING, First dose on Sat05/29/18 at 0600, Until Discontinued, Routine 0505 (Given - Provider: Yulissa Omalley RN) 0539 (Given - Provider: Rosetta Joiner, [place]) 0558 (Given - Provider: Rosetta Joiner, [place]) methadone (DOLOPHINE) tablet 20 mg 20 mg, Oral, EVERY 8 HOURS SCHEDULED, First dose (after last modification) on Sat05/29/18 at 1400, Until Discontinued, Routine 0505 (Given - Provider: Yulissa Omalley RN)1436 (Given - Provider: Oscar Schwab RN)212 (Given - Provider: Rosetta Joiner RN) 0539 (Given - Provider: Rosetta Joiner RN)1500 (Given - Provider: Oscar Schwab RN)212 (Given - Provider: Rosetta Joiner RN) 0558 (Given - Provider: Rosetta Joiner RN)1457 (Given - Provider: Oscar Schwab RN) predniSONE (DELTASONE) tablet 7.5 mg 7.5 mg, Oral, DAILY, First dose on Sat05/28/18 at 2030, Until Discontinued, Routine 0837 (Given - Provider: Oscar Schwab RN) 0756 (Given - Provider: Oscar Schwab RN)0900 (Canceled Entry - Provider: Oscar Schwab RN - Reason: See comment - Comment: already administered) 0800 (Given - Provider: Oscar Schwab RN) sodium chloride 0.9 % flush 5 mL 5 mL, Intravenous, 2 TIMES DAILY, First dose on Sat05/28/18 at 2100, Until Discontinued, Recovery (Recovery-Hospital Unit), Routine 0843 (Given - Provider: Oscar Schwab RN)2120 (Given - Provider: Rosetta Joiner RN) 0757 (Given - Provider: Oscar Schwab RN)0900 (Canceled Entry - Provider: Oscar Schwab RN - Reason: See comment - Comment: already administered)2121 (Given - Provider: Rosetta Joiner RN) 0801 (Given - Provider: Oscar Schwab RN) sulfamethoxazole-trimeth oprim (BACTRIM DS) 800-160 mg per tablet 1 tablet 1 tablet, Oral, EVERY 12 HOURS SCHEDULED (2 times per day), First dose on Sat05/31/18 at 1800, Until Discontinued, Routine, Indication for (Active or Suspected): Skin/Skin Structure 0837 (Given - Provider: Oscar Schwab RN)212 (Given - Provider: Rosetta Joiner RN) 0756 (Given - Provider: Oscar Schwab RN)0900 (Canceled Entry - Provider: Oscar Schwab RN - Reason: See comment - Comment: already administered)2122 (Given - Provider: Rosetta Joiner, RN) 08 (Given - Provider: Oscar Schwab, RN) PRN Medication Order 06/01/2018 06/02/2018 06/03/2018 bisacodyl (DULCOLAX) suppository 10 mg 10 mg, Rectal, DAILY PRN, Starting on Sat05/28/18 at 2004, Until Sat06/03/18 at 1753, Constipation, Administer if needed per patient's routine or if no bowel movement within 48 hours to achieve: (1) One bowel movement at least every 48 hours, AND (2) Without straining. - If multiple PRN bowel medications ordered, start with magnesium hydroxide, then bisacodyl. - Multiple medications may be given concomitantly for constipation., Routine cyclobenzaprine (FLEXERIL) tablet 10 mg 10 mg, Oral, 3 TIMES DAILY PRN, Starting on Sat05/28/18 at 2004, Until Sat06/03/18 at 1753, Muscle spasms, Routine diphenhydrAMINE (BENADRYL) capsule 25 mg 25 mg, Oral, EVERY 6 HOURS PRN, Starting on Sat05/28/18 at 2004, Until Sat06/03/18 at 1753, Itching, Patient requests to take this the same time as the Methadone, Routine 2120 (Given - Provider: Rosetta Joiner, [place]) 2122 (Given - Provider: Rosetta Joiner, RN) 0558 (Given - Provider: Rosetta Joiner, RN) HYDROmorphone (DILAUDID) injection 0.4 mg 0.4 mg, Intravenous, EVERY 2 HOURS PRN, Starting on Cherry 05/29/18 at 1256, Until Sat06/03/18 at 1753, Pain, For breakthrough pain, Routine lidocaine (XYLOCAINE) 10 mg/mL (1 %) injection 3 mg 3 mg (0.3 mL), Subcutaneous, ONCE PRN, 1 dose, Starting on Sat05/28/18 at 2004, Until Sat06/03/18 at 1753, for discomfort with PIV insertion, Recovery (Recovery-Hospital Unit), Routine ondansetron (ZOFRAN) injection 4 mg(Linked Group 1) 4 mg, Intravenous, EVERY 8 HOURS PRN, Starting on Sat05/28/18 at 2004, Until Sat06/03/18 at 1753, Nausea, May repeat times one in 30 minutes if ineffective. If multiple antiemetics are ordered, use ondanstron first, Recovery (Recovery-Hospital Unit) ondansetron (ZOFRAN) tablet 4 mg(Linked Group 1) 4 mg, Oral, EVERY 8 HOURS PRN, Starting on Sat05/28/18 at 2004, Until Sat06/03/18 at 1753, Nausea, Vomiting, If multiple antiemetics are ordered, use ondansetron first. PO Preferred. If patient unable to take PO, may give IV if ordered. May repeat times one in 45 minutes if ineffective., Recovery (Recovery-Hospital Unit), Routine oxyCODONE (ROXICODONE) immediate release tablet 10-15 mg(Linked Group 2) 10-15 mg, Oral, EVERY 4 HOURS PRN, Starting on Sat05/28/18 at 1734, Until Sat06/03/18 at 1753, Pain, severe pain (7-10), Initial dose 10mg. If pain control not adequate in 60 minutes, give additional 5mg, Routine 1156 (Given - Provider: Oscar Schwab RN)1803 (Given - Provider: Oscar Schwab RN) 0407 (Given - Provider: Rosetta Joiner RN)0755 (Given - Provider: Oscar Schwab RN)1251 (Given - Provider: Oscar Schwab RN)1756 (Given - Provider: Oscar Schwab RN)2219 (Given - Provider: Rosetta Joiner RN) 0355 (Given - Provider: Rosetta Joiner RN)0757 (Given - Provider: Oscar Schwab RN)1231 (See Alternative - Provider: Oscar Schwab RN) oxyCODONE (ROXICODONE) immediate release tablet 5-10 mg(Linked Group 2) 5-10 mg, Oral, EVERY 4 HOURS PRN, Starting on Sat05/28/18 at 1734, Until Sat06/03/18 at 1753, Pain, moderate pain (4-6), Initial dose 5mg. If pain control not adequate in 60 minutes, give additional 5mg, Routine 1156 (See Alternative - Provider: Oscar Schwab RN)1803 (See Alternative - Provider: Oscar Schwab RN) 0407 (See Alternative - Provider: Rosetta Joiner, RN)0755 (See Alternative - Provider: Oscar Schwab RN)1251 (See Alternative - Provider: Oscar Schwab RN)1756 (See Alternative - Provider: Oscar Schwab RN)2219 (See Alternative - Provider: Rosetta Joiner, RN) 0355 (See Alternative - Provider: Rosetta Joiner RN)0757 (See Alternative - Provider: Oscar Schwab RN)1231 (Given - Provider: Oscar Schwab RN) polyethylene glycol (MIRALAX) packet 17 g 17 g, Oral, DAILY PRN, Starting on Sat05/28/18 at 2004, Until Sat06/03/18 at 1753, Constipation, Administer if no bowel movement within 48 hours to achieve: (1) One bowel movement at least every 48 hours, AND (2) without straining. If multiple PRN bowel medications ordered, start with polyethylene glycol, then lactulose, then oral bisacodyl, then bisacodyl suppository, then magnesium citrate, then tap water enema. Multiple medications may be given concomitantly for constipation., Routine 0840 (Given - Provider: Oscar Schwab RN) sodium chloride 0.9 % flush 5-20 mL 5-20 mL, Intravenous, EVERY 1 MIN PRN, Starting on Sat05/28/18 at 2004, Until Sat06/03/18 at 1753, flush, Flush pertains to all indwelling lines. Flush per protocol found in the job aid using the link provided on this medication record., Recovery (Recovery-Hospital Unit), Routine zolpidem (AMBIEN) tablet 5 mg 5 mg, Oral, NIGHTLY PRN, Starting on Cherry 05/29/18 at 1254, Until Sat06/03/18 at 1753, Sleep, Routine Linked Groups Order Group 1: ondansetron (ZOFRAN) tablet 4 mgJump to med 4 mg, Oral, EVERY 8 HOURS PRN, Starting on Sat05/28/18 at 2004, Until Sat06/03/18 at 1753, Nausea, Vomiting, If multiple antiemetics are ordered, use ondansetron first. PO Preferred. If patient unable to take PO, may give IV if ordered. May repeat times one in 45 minutes if ineffective., Recovery (Recovery-Hospital Unit), Routine Or ondansetron (ZOFRAN) injection 4 mgJump to med 4 mg, Intravenous, EVERY 8 HOURS PRN, Starting on Sat05/28/18 at 2005, Until Sat06/03/18 at 1753, Nausea, May repeat times one in 30 minutes if ineffective. If multiple antiemetics are ordered, use ondanstron first, Recovery (Recovery- Hospital Unit) Group 2: oxyCODONE (ROXICODONE) immediate release tablet 5-10 mgJump to med 5-10 mg, Oral, EVERY 4 HOURS PRN, Starting on Sat05/28/18 at 1734, Until Sat06/03/18 at 1753, Pain, moderate pain (4-6), Initial dose 5mg. If pain control not adequate in 60 minutes, give additional 5mg, Routine Or oxyCODONE (ROXICODONE) immediate release tablet 10-15 mgJump to med 10-15 mg, Oral, EVERY 4 HOURS PRN, Starting on Sat05/28/18 at 1734, Until Sat06/03/18 at 1753, Pain, severe pain (7-10), Initial dose 10mg. If pain control not adequate in 60 minutes, give additional 5mg, Routine documented in this encounter Care Teams Ager Tender Relationship Specialty Start Date End Date Curt Cassidy MD [address] [facility], [place] [address] PCP - General 10/10/10 documented as of this encounter
--- OUTSIDE RECORDS SUMMARY | 2024-10-30 01:34 | XMS_ITS | Encounter Summary ---
Author Organization [facility] [place] [address] Care Team Providers Care Senior Firmware Engineer Name Role Phone Curt Cassidy MD Primary Care Provider [phone] Reason for Visit * Reason Comments Follow Up Surgery eval forearm flap, ? suture know Encounter Details Date Type Department Care Team (Latest Contact Info) Description 07/14/2018 1:00 PM EDT Clinical [place] [address] Surgery follow-up Social History Tobacco Use Types [...] this encounter Patient Instructions * Patient Instructions* Gladis Tobar RN - 07/14/2018 1:00 PM EDT Patient Instructions: Follow up with Dr. Masters on 08/04/18 or sooner if needed. Signs of Infection : A temperature over 100.4 F or 38 C. Redness at the incision line that is beginning to spread away from the incision after the first 48 hours. Yellow pus-like or foul smelling drainage larger than a dime size from the incision or drain sites. Increased pain / discomfort that is not relieved by your pain medicine such as extra strength tylenol, or NSAIDS For any of these symptoms please call our nurse's line at [phone] M - F 8 - 5 For after hours, and on weekends; Call [phone] and ask for our plastic surgeon accreditation manager -SCAR MASSAGE TECHNIQUE: to begin 4-6 weeks following surgery What is a scar? When an injury occurs, the body immediately begins to repair itself & the area becomes swollen & sore. Eventually small collagen fibers form, becoming a solid tissue that results in a scar. This scar will continue to change in appearance for 1-2 years. Ideally, a scar is smooth & flat, blending in with the surrounding skin. However, some scars may become highly visible & unattractive due to factors such as your age, scar location & size, nutrition, genetics, or infection. A hypertrophic scar occurs when there is an excess production of collagen tissue that is elevated but remains within the wound boundaries. The scar is tense, red, & can be associated with itching & tenderness. A hypertrophic scar can be ordinary (usually stabilizes in 3 months & may even get smaller and smoother) or keloid. The keloid scar invades nearby tissue that was not part of the original wound, tends to enlarge even after 6 months & does not get softer. Will scar massage make my scars disappear? Nothing can make scars disappear. However, massaging the scar assists the body in breaking down thescar tissue to give it a flatter, softer, appearance. Massage also mobilizes the scar, preventing it from adhering to underlying tissue, tendons, & nerves. You can make the greatest difference in the appearance of the scar if you massage it in the first 3months. What should I use on my scars? You will hear many recommendations. This clinic finds that it is the massage itself that reduces the scar & not necessarily the choice of ointments or creams. We do discourage the use of Vitamin E oil, however, due to studies that have reported scar inflammation & deterioration. How do I massage my scars? Apply the lotion or cream into the scar 3-4 times a day for 8 weeks on new scars, and 3-4 times perday for 3 to 6 months on existing scars. Using your finger, apply pressure to the scar in a crosswise & circular direction, bearing down as hard as tolerated. Remember to protect your scar from the sun, especially in the first 6-12 months, by using a moisturizer with sunblock and wearing a physical barrier (ie: a hat) when possible documented in this encounter Progress Notes * Gladis Tobar RN - 07/14/2018 1:00 PM EDT Images from the original note were not included. Reason for Visit: Postoperative Evaluation s/p debridement, pedicled forearm flap for closure of left elbow wound, STSG from left thigh to forearm donor site on 05/28/[address] Masters. ?? POD # [id number] Marla is here for an incision check and question on an area on her graft site. Subjective: Marla states she has no discomfort. Objective: Bruising: no left forearm and elbow. Swelling: no left forearm and elbow. Some spitting sutures removed, incision well approximated, aquaphor applied after wound care wash. Left forearm Left elbow Assessment: No signs of delayed healing,erythema,or fluid collection.Incisions CDI. Plan: We reviewed post op incision instructions including: Begin scar massage in four to six weeks, instructions provided in avs. We reviewed signs and symptoms of infection, spitting sutures, parameters for normal post op swelling and bruising as stated in our post op brochure. We reviewed sun precautions, increase protein in the diet, and correct phone numbers to call us forconcerns. Dressing instructions: apply a thin layer or aquaphor or moisturizer Marla expressed understanding of instructions,and agrees with the plan of care. Follow up on 08/04/[address] Masters for wound / incision check. documented in this encounter Plan of Treatment Not on file documented as of this encounter Visit Diagnoses Diagnosis Surgery follow-up Follow-up examination, following unspecified surgery documented in this encounter Care Teams Senior Firmware Engineer Relationship Specialty Start Date End Date Curt Cassidy MD [address] [facility], [address] [address] PCP - General 10/10/10 documented as of this encounter
--- OUTSIDE RECORDS SUMMARY | 2024-10-30 01:34 | XMS_ITS | Encounter Summary ---
Author Organization [facility] Address [facility] [place] [address] Care Team Providers Care Wire Straightener Name Role Phone Curt Cassidy MD Primary Care Provider [phone] Encounter Details Date Type Department Care Team (Late st Contact Info) Description 07/16/2018 Telephone [place] [id number] Yossi Carter RN Social History Tobacco Use Types Packs/Day [...] encounter Miscellaneous Notes * Telephone Encounter - Yossi Carter RN - 07/16/2018 5:07 PM EDT Spoke with patient over the phone, had just gotten home now, and planning to eat meal. Discussed patient's reported critical lab of low blood sugar and advised patient to have juice. Per patient her blood sugars run on the lower side, not able to check FSBG at moment of phone call, but patient assured will eat/drink immediately. Per patient feels fine/asymptomatic. ?? Plan: -Discussed signs/symptoms of low blood sugar vs high blood sugar -Per patient has a lifeline (for auto alert fall detection) in place -Advised for any emergencies/critically low hypoglycemia to call 911 (patient verbalizes understanding) documented in this encounter Plan of Treatment Not on file documented as of this encounter Visit Diagnoses Not on filedocumented in this encounter Care Teams Wire Straightener Relationship Specialty Start Date End Date Curt Cassidy MD [address] [facility], [address] [address] PCP - General 10/10/10 documented as of this encounter
--- OUTSIDE RECORDS SUMMARY | 2024-10-30 01:34 | XMS_ITS | Encounter Summary ---
Author Organization [facility]ly [facility], [facility] Address [facility] [place] [address] Care Team Providers Care Marketing Database Analyst Name Role Phone Curt Cassidy MD Primary Care Provider [phone] Encounter Details Date Type Department Care Team (Late st Contact Info) Description 07/07/2018 Orders [place] [address] Zaki Galdamez MD [facility] [address] Chronic obstructive bronchitis Social History Tobacco Use Types Packs/Day Years [...] as of this encounter Visit Diagnoses Diagnosis Chronic obstructive bronchitis Obstructive chronic bronchitis without exacerbation documented in this encounter Care Teams Marketing Database Analyst Relationship Specialty Start Date End Date Curt Cassidy MD [address] [facility], [facility] [address] [place] [address] PCP - General 10/10/10 documented as of this encounter
--- OUTSIDE RECORDS SUMMARY | 2024-10-30 01:34 | XMS_ITS | Encounter Summary ---
Author Organization [facility] Address [facility] [place] [place] [address] Care Team Providers Care Accounting Representative Name Role Phone Curt Cassidy MD Primary Care Provider [phone] Encounter Details Date Type Department Care Team (Late st Contact Info) Description 06/06/2018 Orders [place] [address] Lorie Fuller MD [facility] [place] [address] Social History Tobacco Use Types Packs/Day Years [...] on filedocumented in this encounter Care Teams Accounting Representative Relationship Specialty Start Date End Date Curt Cassidy MD [address] [facility], [facility] [address] [place] [address] PCP - General 10/10/10 documented as of this encounter
--- OUTSIDE RECORDS SUMMARY | 2024-10-30 01:34 | XMS_ITS | Encounter Summary ---
Author Organization Formerly [facility] Address [place] [address] Care Team Providers Care Signs Sales Representative Name Role Phone Curt Cassidy MD Primary Care Provider [phone] Reason for Visit * Reason Onset Date Comments Medication Refill 08/19/2018 Encounter Details Date Type Department Care Team (Late st Contact Info) Description 08/19/2018 Refill [place] [address] Olivia Snow MD [facility] [place] [address] Social History Tobacco Use Types Packs/Day Years [...] on filedocumented in this encounter Care Teams Signs Sales Representative Relationship Specialty Start Date End Date Curt Cassidy MD [address] [facility], [facility] [address] [place] [address] PCP - General 10/10/10 documented as of this encounter
--- OUTSIDE RECORDS SUMMARY | 2024-10-30 01:34 | XMS_ITS | Encounter Summary ---
Author Organization [facility] Address [facility] [address] [place] [address] Care Team Providers Care Hay Chopper Name Role Phone Curt Cassidy MD Primary Care Provider [phone] Reason for Visit * Reason Comments Medication Refill Encounter Details Date Type Department Care Team (Late st Contact Info) Description 08/28/2018 Refill [place] [address] Rafael Sidhu MD [facility] [place] [address] Rheumatoid arthritis, involving unspecified site, unspecified rheumatoid [...] presence documented in this encounter Care Teams Hay Chopper Relationship Specialty Start Date End Date Curt Cassidy MD [address] [facility], [address] [address] PCP - General 10/10/10 documented as of this encounter
--- OUTSIDE RECORDS SUMMARY | 2024-10-30 01:34 | XMS_ITS | Encounter Summary ---
Author Organization [facility] [place] [address] Care Team Providers Care Food And Beverage Intern Name Role Phone Curt Cassidy MD Primary Care Provider [phone] Encounter Details Date Type Department Care Team (Late st Contact Info) Description 08/27/2018 Notes Only Cardiology at [address] [address] Se Brambila Jr., MD [address] [place] [id number] Social History Tobacco Use Types Packs/Day Years Used Date Smoking Tobacco: Never Smokeless Tobacco: Never Alcohol Use Standard Drinks/Week Comments No 0 (1 standard drink = 0.6 oz pur e alcohol) Sex and Gender Information Value Date Recorded Sex Assigned at Not on file Gender Identity Not on file Sexual Orientation Not on file documented as of this encounter Progress Notes * Se Brambila Jr., MD - 08/27/2018 2:10 PM EDT Patient came for lexiscan MIBI today very short of breath Decision made to switch her to a dobutamine mIBI instead, however unable to get IV access (multipleattempts including by anesthesia) Test cancelled Also noted she has difficulty raising her arms which will make nuclear imaging difficult She [place] [facility] [place] that [place] adequate quality- should consider changing the test to adobutamine echo [place] [facility] [place] Note forwarded to Dr. Cassidy documented in this encounter Plan of Treatment Not on file documented as of this encounter Visit Diagnoses Not on filedocumented in this encounter Care Teams Food And Beverage Intern Relationship Specialty Start Date End Date Curt Cassidy MD [address] [facility], [address] [address] PCP - General 10/10/10 documented as of this encounter
--- OUTSIDE RECORDS SUMMARY | 2024-10-30 01:34 | XMS_ITS | Encounter Summary ---
Author Organization [facility] Address [facility] [place] [address] Care Team Providers Care Dyehouse Worker Name Role Phone Curt Cassidy MD Primary Care Provider [phone] Reason for Visit * Reason Comments Follow Up Surgery s/p L elbow arthroto my DOS: 05/28/18 Encounter Details Date Type Department Care Team (Late st Contact Info) Description 06/12/2018 2:20 PM EDT [place] [address] Laura Lofton PA [facility] [place] [address] S/P left elbow I&D, radial forearm flap [...] Sign Reading Time Taken Comments Blood Pressure 135/56 06/12/2018 2:16 PM EDT Pulse 98 06/12/2018 2:16 PM EDT Temperature 36.6 ??C (97.8 ??F) 06/12/2018 2:16 PM ED T Respiratory Rate - - Oxygen Saturation - - Inhaled Oxygen Concentration - - Weight 80.3 kg (177 lb) 06/12/2018 2:16 PM EDT s tated Height 149.9 cm (4' 11) 06/12/2018 2:16 PM EDT stated Body Mass Index 35.75 06/12/2018 2:16 PM EDT documented in this encounter Progress Notes * Laura Lofton PA - 06/12/2018 2:20 PM EDT PATIENT NAME: Marla Denton AGE: 62 y.o. MR#: [id number] DATE OF VISIT: 06/12/2018 DATE OF SURGERY: 05/28/2018 SURGERY DESCRIPTION: ARTHROTOMY, ELBOW, EXPLORATION, DRAINAGE, OR REMOVAL FB (WRVU 6.08) (Left) FLAP, MYOCUTANEOUS OR FASCIOCUTANEOUS, UPPER EXTREMITY (WRVU 17.04) (Left) SPLIT THICK SKIN GRAFT,100 SQ CM OR LESS, ARMS (WRVU 9.9) (N/A) NEUROPLASTY &/OR TRANSPOSITION, ULNAR NERVE AT ELBOW (WRVU 7.26) (Left) SURGEON: Dr. Fuller/Dr. Masters CHIEF COMPLAINT: 2 weeks S/P above procedure HISTORY OF PRESENT ILLNESS: Ms. Denton is a 62 y.o. female who presents 2 weeks s/p the above procedures for office follow up. She has been doing well since surgery. She was recently seen in Plastics and it was felt that her skin grafts were healing without complication. She has been using her sling to protect her elbow. She also has follow-up scheduled with infectious disease. She has been taking Bactrim to help suppress her chronic infection and has been tolerating this well. She has restarted her Coumadin and has noticed some bleeding around her skin graft site, but she states that she has been able to control this with her usual wound care. She is not having any significant pain in the left elbow. He needs to have some diminished sensation into her ulnar digits, but she has perhaps noticed some very slight improvement in her sensation. She denies any fever/chills or other constitutional signs of infection. PHYSICAL EXAMINATION: Ms. Denton is a 62 y.o. female who is alert and oriented. She is in no acute discomfort and is resting comfortably in the exam room. Inspection: Flap over the posterior aspect of the left elbow appears viable and wounds appear to behealing without complication. She has some bleeding around the margins of her skin graft donor siteover the forearm, but no evidence of infection. ROM/Strength: She is able to perform gentle elbow range of motion without any increased elbow discomfort. She continues to have atrophy of her ulnar intrinsics with clawing of her small finger. Neurovascular: Sensation remains diminished in the ulnar distribution. Sensation is otherwise intact in the median and radial distribution. Hand is well perfused. SURVEY RESPONSES: [facility] Surgical Postop Visit 05/15/2018 PROMIS-10 General Health Fair PROMIS-10 Quality of Life Fair PROMIS-10 Physical Health Fair PROMIS-10 Mental Health Very Good PROMIS-10 Social Activity Very Good PROMIS-10 Everyday Activities A little PROMIS-10 Pain 6 PROMIS-10 Fatigue Severe PROMIS-10 Social Roles Fair PROMIS-10 Anxious or Depressed Never PROMIS PHYSICAL HEALTH SCORE 32.4 PROMIS MENTAL HEALTH SCORE 50.8 Satisfaction with Treatment Somewhat satisfied Choose Same Treatment Again Probably no ASSESSMENT: 2 weeks s/p above procedure PLAN: She will continue to follow with Plastics and infectious disease as planned. She can wean from her sling as tolerated by comfort. She can perform elbow range of motion as tolerated. Her tricepsis no longer intact and this is unable to be repaired due to her chronic infection. There was no evidence of any loosening of the total elbow implants at the time of surgery. She was instructed to notify us if she develops any increased elbow pain or mechanical symptoms. She will continue to monitor her hand sensation. She may start to notice sensory improvement over the next several months if the nerve has some capacity to recover, but we discussed that she will likely have permanent weakness due to the severity of her nerve injury. The patient understands to contact us if she has any other questions or concerns. The patient will follow up as needed in ortho. The above documentation was completed using [employer] voice recognition software. documented in this encounter Plan of Treatment Not on file documented as of this encounter Visit Diagnoses Diagnosis S/P left elbow I&D, radial forearm flap (plastics) for dehiscence over TEA 05/28/18 Dr. Fuller documented in this encounter Care Teams Dyehouse Worker Relationship Specialty Start Date End Date Curt Cassidy MD [address], [facility] [address] [place] [address] PCP - General 10/10/10 documented as of this encounter
--- OUTSIDE RECORDS SUMMARY | 2024-10-30 01:34 | XMS_ITS | Encounter Summary ---
Author Organization [facility] Address [facility] [place] [address] Care Team Providers Care Machining And Assembly Supervisor Name Role Phone Curt Cassidy MD Primary Care Provider [phone] Encounter Details Date Type Department Care Team (Late st Contact Info) Description 07/16/2018 10:00 AM EDT Office [place] [address] Olivia Snow MD [facility] [place] [address] Medication monitoring encounter; 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, 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; Seronegative arthritis; Retained orthopedic hardware Social History Tobacco Use Types Packs/Day Years [...] Sign Reading Time Taken Comments Blood Pressure 141/72 07/16/2018 10:08 AM EDT Pulse 88 07/16/2018 10:08 AM EDT Temperature 36.8 ??C (98.3 ??F) 07/16/2018 10:08 AM E DT Respiratory Rate - - Oxygen Saturation - - Inhaled Oxygen Concentration - - Weight 79.1 kg (174 lb 6.4 oz) 07/16/2018 10:08 AM EDT Height - - Body Mass Index 35.22 06/12/2018 2:16 PM EDT documented in this encounter Progress Notes * Olivia Snow T - 07/16/2018 10:00 AM EDT Subjective: Patient ID: Marla Denton is a 62 y.o. 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 HPI Ms. Denton has a history of seronegative arthritis, and underwent a L elbow arthroplasty for progressive and retractable pain 01/23/2018, complicated by post-operative hematoms requiring multiple operative debridements followed by oral antibiotics. Operative cultures in February grew a sensitive Enterobacter cloacae. She was initially treated with IV antibiotics while in the outside hospital, followed by cephalexin, followed by ciprofloxacin for 10 days. When symptoms failed to improve, she was started on IV ertapenem, which she was on at the time of admission here for planned wound exploration. She was admitted to [facility] 05/28/2018-06/03/2018, during which time she underwent operative [...] she would need indefinite antibiotic suppression. She has done well on the tmp/smx, and has not missed any doses. She denies abdominal pain, nausea or diarrhea, which were more of a problem with previous oral antibiotic courses she has had. She is taking a probiotic. Denies any new rash. Prior PICC site well healed. Her graft and donor site are healing, and she is following with plastics about this; there is some occasional pressure-like discomfort on her wrist donor site, with some irritation in one area from an underlying suture; this was evaluated by plastics on 07/14 and found to be not concerning. She does have an ulnar neuropathy in herL arm, from noted ulnar nerve irritation and inflammation at the May surgery. Review of Systems Constitutional: Negative. Negative for activity change, appetite change, chills, diaphoresis, fatigue and fever. HENT: Negative. Eyes: Negative. Respiratory: She does note intermittent dyspnea with racing heart rate, which she follows pulmonology for (has MDIs). Next visit is next month. No cough, chest pain, fever or chills. Cardiovascular: Negative for chest pain and leg swelling. Gastrointestinal: Negative for abdominal distention, abdominal pain, blood in stool, constipation, diarrhea, nausea and vomiting. Endocrine: Negative. Genitourinary: Negative. Musculoskeletal: Positive for joint swelling (Chronic, RA). Negative for neck pain and neck stiffness. Skin: Negative for rash. Neurological: Negative. Past Medical History: Past Medical History: Diagnosis Date ??? Allergic state ??? Arthritis ??? Elbow wound, left, initial encounter 04/28/2018 ??? Hypertension ??? Sjogren's syndrome ??? Thyroid disease Patient Active Problem List Diagnosis Code ??? [...] M54.2 ??? Pain in limb M79.609 ??? 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 Left [...] on Coumadin Z51.81, Z79.01 ??? Patient is Quaker Z78.9 ? ? S/P left elbow I&D, radial forearm flap (plastics) for dehiscence over TEA 05/28/18 Dr. Alvarado51.002S ??? Elbow wound, left, 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 S51.002D ??? Surgery follow-up Z09 Medications: Current Outpatient Prescriptions on File Prior to Visit Medication Sig Dispense Refill ??? sulfamethoxazole/trimethoprim (BACTRIM ORAL) Take by mouth. ??? fluticasone-salmeterol (ADVAIR HFA) 230-21 mcg/actuation HFA Aerosol Inhaler Inhale 2 puffs into the lungs 2 times daily. Indications: PREVENTION OF BRONCHOSPASM WITH CHRONIC BRONCHITIS (Patient not taking: Reported on 07/14/2018) 3 Inhaler 3 ??? risedronate sodium (ACTONEL ORAL) Take by mouth. ??? ascorbate calcium (VITAMIN C ORAL) Take by mouth. ??? docusate sodium (COLACE) 100 mg Capsule Take 100 mg by mouth daily. ??? senna (SENOKOT) 8.6 mg Tablet Take by mouth daily. ??? acyclovir (ZOVIRAX) 800 mg Tablet TAKE ONE TABLET BY MOUTH ONCE DAILY 90 tablet 1 ??? leflunomide (ARAVA) 20 mg Tablet 1 [...] ??? ergocalciferol (VITAMIN D) 50,000 unit capsule 08174 unit, PO, once a month (Patient taking [...] Bactrim ??? Sulfisoxazole ??? Sulfisoxazole Acetyl Unknown Vitals: 07/16/18 1008 BP: 141/72 Pulse: 88 Temp: 36.8 ??C (98.3 ??F) Weight: 79.1 kg (174 lb 6.4 oz) Objective: Physical Exam Constitutional: She appears well-developed and well-nourished. No distress. HENT: Head: Normocephalic and atraumatic. Mouth/Throat: No oropharyngeal exudate. Eyes: Conjunctivae and EOM are normal. Pupils are equal, round, and reactive to light. No scleral icterus. Neck: Normal range of motion. Neck supple. Cardiovascular: Normal rate and regular rhythm. Murmur (Systolic murmur appreciated over the LUSB, previously known) heard. Pulmonary/Chest: Effort normal and breath sounds normal. No respiratory distress. She has no wheezes. She has no rales. Abdominal: Soft. Bowel sounds are normal. There is no tenderness. Musculoskeletal: L wrist with thinned skin from donor site (see 07/14 photo in the chart), one <1cm satellite areaof mild erythema with underlying suture, no increased pain around incisions, no induration, dehiscence or other erythema. L elbow with graft site healing nicely, no dehiscence or drainage. Graft without sensation, sensation intact otherwise. L pinky deformed with ulnar deviation, on a background ofchronic RA deformities. Lymphadenopathy: She has no cervical adenopathy. Skin: Skin is warm and dry. No rash noted. She is not diaphoretic. Laboratory: CBC: Recent Labs 06/03/18 1355 06/03/18 0351 06/02/18 1041 WBC 12.8* 13.1* 14.7* HGB 8.1* 7.5* 7.9* PLATELET 364* 327 304 Chemistry: Recent Labs 06/02/18 1041 05/29/18 0422 NA 139 142 K 4.3 4.2 CL 95* 100 CO2 29 29 BUN 17 12 CREATININE 1.08 0.92 GLUCOSE 154 159 Recent Labs 06/02/18 1041 05/29/18 0422 CALCIUM 8.9 8.3* MAGNESIUM -- 0.70 PHOS -- 3.0 Inflammatory Markers: Sed Rate (mm/hr) Date Value [...] laboratory markers of inflammation/infection. Assessment and Plan: 62/F with seronegative arthritis, s/p L elbow arthroplasty for progressive and retractable pain at an outside facility 01/23/2018, complicated by post-operative hematoma requiring multiple operative debridements followed by IV and oral antibiotics. Operative cultures in February grew [...] meropenem, transitioning to oral antibiotics 05/31 for intermediate project manager suppression given retained hardware. She has been transitioned to oral tmp/smx 1DS BID on 05/31, which she will continue indefinitely. She had been carefully challenged with the tmp/smx given her reported sulfa allergy, and has been tolerating this medication without any issue. We had recommended following creatinine, however she has not yet had this drawn. Will order metabolic panel today. She will follow with her PCP, and recommended to return to ID clinic in about 6 months or so (sooner if needed), to be coordinated with her Rheumatology appointment anticipated in the spring. Olivia Snow MD Infectious Disease Fellow Personal Pager #[phone] 07/16/2018 * Zaki Duff MD - 07/16/2018 10:00 AM EDT Attending Addendum: I have seen and examined the patient, reviewed the data and agree with the note by Dr. Snow. documented in this encounter Plan of Treatment Scheduled Orders Name Type Priority Associated Diagnoses Orde r Schedule Comprehensive metabolic panel (non-fasting) Lab Routine Medication monitoring encounter Expected: 07/16/2018 (Approximate), Expires: 01/15/2019 documented as of this encounter Procedures Procedure Name Priority Date/Time Associated Diagnosis Comments COMPREHENSIVE METABOLIC PANEL Routine 07/16/2018 11:09 AM EDT 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, 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 Medication monitoring encounter documented in this encounter Results * (ABNORMAL) Comprehensive metabolic panel (non-fasting) (07/16/2018 11:09 AM EDT) Glucose 53(Critic al) 65 - 199 mg/dL [facility] Comment: Called by: ROLANDO, Read back by: Leta Carter, Date/Time:07/16/18 12:22. Diabetes: >=200 mg/dL plus symptoms Blood Urea Nitrogen 11 8 - 18 mg/dL [facility] Creatinine 0.88 0.70 - 1.20 mg/dL [facility] Sodium 142 135 - 145 mmol/L [facility] Potassium 4.2 3.5 - 5.0 mmol/L [facility] Comment: Please note: ??Patients with WBC >100,000 may have falsely elevated Potassium levels. ??For accurate Potassium quantification in these patients send serum separator tube (gold top) for subsequent determinations. ??Contact the Clinical Chemistry Laboratory if there are any questions. Chloride 101 98 - 107 mmol/L [facility] Carbon Dioxide 27 22 - 31 mmol/L [facility] Anion Gap 14 5 - 15 mmol/L [facility] Calcium 9.4 8.5 - 10.5 mg/dL [facility] Protein, Total 7.7 6.1 - 8.0 gm/dL [facility] Albumin 4.4 3.2 - 5.2 gm/dL [facility] Aspartate Aminotransferase 25 0 - 30 unit/L [facility] Alanine Aminotransferase 25 0 - 30 unit/L [facility] Alkaline Phosphatase 119(H) 40 - 104 unit/L [facility] Bilirubin, Total 0.2 0.2 - 1.3 mg/dL [facility] Est Glomerular Filtration Rate 71 >=60 mL/min/1. 73 m?? [facility] Comment: The eGFR was calculated using the CKD-EPI equation. As with all creatinine based estimates of kidney function, eGFR values calculated with the CKD-EPI equation are not accurate in patients with acute kidney failure, extremes of body mass or the acutely ill. http://[facility] eGFR 83 >=60 mL/min/1. 73 m?? [facility] Comment: The eGFR was calculated using the CKD-EPI equation. As with all creatinine based estimates of kidney function, eGFR values calculated with the CKD-EPI equation are not accurate in patients with acute kidney failure, extremes of body mass or the acutely ill. [email or web address]/DHnkf Blood specimen (specimen) 07/16/2018 11:09 AM EDT 07/16/2018 11:33 AM EDT Narrative Resulting Agency Comment Spec In Lab Azael Palm MD CHEMISTRY ORDERA BLETj Performing Organization Address City/State/[facility] Co de Phone Number [facility] [place] [address] documented in this encounter Visit Diagnoses Diagnosis Medication monitoring encounter Encounter for therapeutic drug monitoring 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, 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 Seronegative arthritis Other specified arthropathy, site unspecified Retained orthopedic hardware Reserved for inherently not codable concepts WITHOUT codable children documented in this encounter Care Teams Machining And Assembly Supervisor Relationship Specialty Start Date End Date Curt Cassidy MD [address], [facility] [address] [place] [address] PCP - General 10/10/10 documented as of this encounter
--- OUTSIDE RECORDS SUMMARY | 2024-10-30 01:34 | XMS_ITS | Encounter Summary ---
Author Organization [facility] Address [facility] [place] [address] Care Team Providers Care Paper Machine Back Tender Name Role Phone Curt Cassidy MD Primary Care Provider Encounter Details Date Type Department Care Team (Late st Contact Info) Description 06/04/2018 Orders [place] [address] Sergio Asencio MD [facility] [place] [address] Osteomyelitis, unspecified site, unspecified type (Primary Dx) Social History Tobacco Use Types [...] as of this encounter Visit Diagnoses Diagnosis Osteomyelitis, unspecified site, unspecified type- Primary documented in this encounter Care Teams Paper Machine Back Tender Relationship Specialty Start Date End Date Curt Cassidy MD [address] [facility] 3 [place] [address] PCP - General 10/10/10 documented as of this encounter
--- OUTSIDE RECORDS SUMMARY | 2024-10-30 01:34 | XMS_ITS | Encounter Summary ---
Author Organization [facility] Address [facility] [address] Care Team Providers Care Marble Finisher Name Role Phone Curt Cassidy MD Primary Care Provider Reason for Visit * Reason Onset Date Comments Medication Refill 06/02/2018 Encounter Details Date Type Department Care Team (Late st Contact Info) Description 06/02/2018 Ref[place] [address] Rafael Sidhu MD [facility] [place] [address] Recurrent cellulitis of lower leg Social History Tobacco Use Types Packs/Day Years [...] as of this encounter Visit Diagnoses Diagnosis Recurrent cellulitis of lower leg Cellulitis and abscess of leg, except foot documented in this encounter Care Teams Marble Finisher Relationship Specialty Start Date End Date Curt Cassidy MD [address] [facility], [facility] 3 [place] [address] PCP - General 10/10/10 documented as of this encounter
--- OUTSIDE RECORDS SUMMARY | 2024-10-30 01:34 | XMS_ITS | Encounter Summary ---
Author Organization [facility] [place] [address] Care Team Providers Care Customer Advisor Specialist Name Role Phone Curt Cassidy MD Primary Care Provider [phone] Reason for Visit * Reason Onset Date Comments Bumped Appointment 09/29/2018 Encounter Details Date Type Department Care Team (Late st Contact Info) Description 09/29/2018 Telephone [place] [address] Jodi Gallegos Bumped Appointment Social History Tobacco Use Types Packs/Day Years [...] encounter Miscellaneous Notes * Telephone Encounter - Jodi Gallegos - 09/29/2018 8:50 AM EST Telephone to patient, r/s bumped hossein to 10/20 documented in this encounter Plan of Treatment Not on file documented as of this encounter Visit Diagnoses Not on filedocumented in this encounter Care Teams Customer Advisor Specialist Relationship Specialty Start Date End Date Curt Cassidy MD [address] [facility] 3 [place] [address] PCP - General 10/10/10 documented as of this encounter
--- OUTSIDE RECORDS SUMMARY | 2024-10-30 01:34 | XMS_ITS | Encounter Summary ---
Author Organization [facility] Address [facility] [place] [address] Care Team Providers Care Tire Mechanic Name Role Phone Curt Cassidy MD Primary Care Provider [phone] Encounter Details Date Type Department Care Team (Latest Contact Info) Description 08/01/2018 6:39 AM EDT - 08/01/2018 11:59 PM EDT [place] [id number] Discharge Disposition: Home Social History Tobacco Use [...] 11/05/2013 ergocalciferol (VITAMIN D) 50,000 unit capsule 91628 unit, PO, once a month 10/23/2010 budesonide-formoteroL (Symbicort) 160-4.5 mcg/actuation HFA Aerosol Inhaler SYMBICORT 160-4.5 MCG/ACT AERO 04/22/2017 11/05/2022 risedronate (ACTONEL) 35 mg Tablet Take 35 mg by mouth every 7 days. 05/01/2016 12/27/2023 sulfamethoxazole/trime thoprim (BACTRIM ORAL) Take by mouth. 12/2017 fluticasone-salmeterol (ADVAIR HFA) 230-21 mcg/actuation HFA Aerosol InhalerIndications:pre vention of bronchospasm with chronic bronchitis Inhale 2 puffs into the lungs 2 times daily. Indications: PREVENTION OF BRONCHOSPASM WITH CHRONIC BRONCHITIS 3 Inhaler 3 07/07/2018 12/27/2023 risedronate sodium (ACTONEL ORAL) Take by mouth. 10/20/2018 ascorbate calcium (VITAMIN C ORAL) Take by mouth daily. acyclovir (ZOVIRAX) 800 mg Tablet TAKE ONE TABLET BY MOUTH ONCE DAILY 90 tablet 1 01/21/2018 08/28/2018 leflunomide (ARAVA) 20 mg TabletIndications:Rheu matoid arthritis, [...] Procedure Name Priority Date/Time Associated Diagnosis Comments RESPIRATORY PANEL PCR Routine 08/01/2018 4:55 PM EDT documented in this encounter Results * (ABNORMAL) Respiratory Panel PCR (08/01/2018 4:55 PM EDT) Respiratory Panel Source DIRECTOR OF SECURITY Swab [facility] Respiratory Panel PCR Positive(A) Negative [facility] Comment: Respiratory Panels are performed on the [employer], using multiplexed PCR nucleic acid detection. ??Negative results do not preclude respiratory infection and should not be used as the sole basis for diagnosis, treatment or other management decisions. Adenovirus Not Detected Not Detected [facility] Coronavirus HKU1 Not Detected Not Detected [facility] Coronavirus NL63 Not Detected Not Detected [facility] Coronavirus 229E Not Detected Not Detected [facility] Coronavirus OC43 Not Detected Not Detected [facility] Human Metapneumovirus Not Detected Not Detected [facility] Human Rhinovirus/Enterov irus Detected(A) Not Detected [facility] Comment: Called by: Franky Jordan, Read back by: Cordelia Alvarado RN at [facility], Date/Time:08/01/18 23:43. Influenza A Not Detected Not Detected [facility] Influenza B Not Detected Not Detected [facility] Parainfluenza 1 Not Detected Not Detected [facility] Parainfluenza 2 Not Detected Not Detected [facility] Parainfluenza 3 Not Detected Not Detected [facility] Parainfluenza 4 Not Detected Not Detected [facility] Respiratory Syncytial Virus Not Detected Not Detected [facility] Bordetella pertussis Not Detected Not Detected [facility] Chlamydophila pneumoniae Not Detected Not Detected [facility] Mycoplasma pneumoniae Not Detected Not Detected [facility] Resp Panel Interp Positive MA RY [facility] Nasopharyngeal swab (specimen) Micro Swab / Unknown 08/01/2018 4:55 PM EDT 08/02/2018 9:55 AM EDT Narrative Resulting Agency Comment Spec In Lab Curt Cassidy MD MICROBIOLOGY - GENER AL ORDERABLES Performing Organization Address City/State/[facility] Co de Phone Number [facility] [place] [address] documented in this encounter Visit Diagnoses Not on filedocumented in this encounter Care Teams Tire Mechanic Relationship Specialty Start Date End Date Curt Cassidy MD [address] [facility] [address] [place] [address] PCP - General 10/10/10 documented as of this encounter
--- OUTSIDE RECORDS SUMMARY | 2024-10-30 01:34 | XMS_ITS | Encounter Summary ---
Author Organization [facility] Address [facility] [place] [address] Care Team Providers Care Bottle Cleaner Name Role Phone Curt Cassidy MD Primary Care Provider [phone] Reason for Visit * Reason Comments Medication Refill Encounter Details Date Type Department Care Team (Late st Contact Info) Description 07/04/2018 [place] [address] Zaki Galdamez MD [facility] [place] [address] Chronic obstructive bronchitis Social History Tobacco Use [...] exacerbation documented in this encounter Care Teams Bottle Cleaner Relationship Specialty Start Date End Date Curt Cassidy MD [address] [facility], [facility] [address] [place] [address] PCP - General 10/10/10 documented as of this encounter
--- OUTSIDE RECORDS SUMMARY | 2024-10-30 01:35 | XMS_ITS | Encounter Summary ---
Author Organization [place] [address] Care Team Providers Care Advertising Representative Name Role Phone Curt Cassidy MD Primary Care Provider [phone] Encounter Details Date Type Department Care Team (Latest Contact Info) Description 07/08/2017 10:20 AM EDT - 07/08/2017 11:59 PM EDT Hospital [place] [address] Rheumatoid lung disease Discharge Disposition: Home Social [...] Sig Dispensed Refills Start Date End Date atorvastatin (LIPITOR) 20 mg Tablet Take 20 [...] 11/05/2013 ergocalciferol (VITAMIN D) 50,000 unit capsule 99881 unit, PO, once a month 10/23/2010 budesonide-formoteroL (Symbicort) 160-4.5 mcg/actuation HFA Aerosol Inhaler SYMBICORT 160-4.5 MCG/ACT AERO 04/22/2017 11/05/2022 risedronate (ACTONEL) 35 mg Tablet Take 35 mg by mouth every 7 days. 05/01/2016 12/27/2023 albuterol 90 mcg/actuation HFA Aerosol InhalerIndications:Chr onic obstructive bronchitis Inhale 2 puffs into the lungs every 4 hours as needed for Wheezing. Use with spacer 1 Inhaler 5 07/08/2017 11/05/2022 doxycycline (VIBRAMYCIN) 100 mg CapsuleIndications:Rec urrent cellulitis of lower leg TAKE ONE CAPSULE BY MOUTH ONCE DAILY 90 capsule 3 05/22/2017 11/29/2017 acyclovir (ZOVIRAX) 800 mg TabletIndications:Rheu matoid arthritis TAKE ONE TABLET BY MOUTH ONCE DAILY 90 tablet 3 01/21/2017 07/18/2017 polyethylene glycoL (Miralax) 17 gram Powder in Packet Take 17 g by mouth as needed. 11/05/2022 leflunomide (ARAVA) 20 mg Tablet TAKE ONE TABLET BY MOUTH ONCE DAILY 90 tablet 3 09/17/2016 10/14/2017 predniSONE (DELTASONE) 5 mg Tablet Take 7.5 mg by mouth daily. 11/05/2022 alendronate (FOSAMAX) 70 mg Tablet Take 1 tablet by mouth every 7 days. Take in AM with full glass of water, on an empty stomach. Do not lie down for 30 min. 12 tablet 3 06/13/2016 09/23/2017 warfarin (COUMADIN) 5 mg tablet Take 5-7.5 mg by mouth daily. 12/07/2020 cyclobenzaprine (FLEXERIL) 10 mg tablet Take 10 mg by mouth 3 times daily as needed. 11/05/2022 calcium carbonate 648 mg calcium tablet Take 1 tablet by mouth 3 times daily (with meals). 11/05/2013 04/02/2018 senna-docusate (PERICOLACE) 8.6-50 mg per tablet Take 1-4 tablets by mouth 2 times daily. 11/05/2013 04/02/2018 zolpidem (AMBIEN) 10 mg tablet Take 1 tablet by mouth nightly as needed. 11/05/2013 02/25/2023 documented as of this encounter Procedure Notes * Gerry Colon Jr., MD - 07/08/2017 11:59 PM EDTAssociated Order(s): PULMONARY FUNCTION TEST Pulmonary Function Testing Spirometry reveals severe airflow obstruction with concurrent reduction in vital capacity. Lung volumes demonstrate decreased total lung capacity (suggestive of a restrictive ventilatory defect) withnormal RV and increased RV/TLC which may suggest either an obstructive process or in the proper clinical scenario neuromuscular weakness. Diffusing capacity is mildly reduced. Oxygen saturation is normal at rest, without ambulatory oxygen desaturation. Gerry Colon MD Pulmonary Medicine documented in this encounter Plan of Treatment Not on file documented as of this encounter Procedures Procedure Name Priority Date/Time Associated Diagnosis Comments PFT SCAN 07/16/2017 12:00 AM EDT COMMON PULMONARY FUNCTION TEST Routine 07/12/2017 5:02 PM EDT Rheumatoid lung disease documented in this encounter Results * SCAN DOC: PFT (07/16/2017 12:00 AM EDT) Narrative 07/16/2017 12:00 AM EDT Ordered by an unspecified provider. Scanning Provider MEDIA MGR SCAN EXT O RDR/RSLT * Pulmonary Function Testing (07/12/2017 5:02 PM EDT) Narrative Gerry Colon Jr., MD - 07/12/2017 5:02 PM EDT Gerry Colon Jr., MD ? 07/12/2017 ??5:02 PM Pulmonary Function Testing Spirometry reveals severe airflow obstruction with concurrent reduction in vital capacity. ??Lung volumes demonstrate decreased total lung capacity (suggestive of a restrictive ventilatory defect) with normal RV and increased RV/TLC which may suggest either an obstructive process or in the proper clinical scenario neuromuscular weakness. ??Diffusing capacity is mildly reduced. ?? Oxygen saturation is normal at rest, without ambulatory oxygen desaturation. Gerry Colon MD Pulmonary Medicine Zaki Bui MD PFT ORDERABLES documented in this encounter Visit Diagnoses Diagnosis Rheumatoid lung disease Rheumatoid lung documented in this encounter Care Teams Advertising Representative Relationship Specialty Start Date End Date Curt Cassidy MD [address], [facility] [address] [place] [id number] PCP - General 10/10/10 documented as of this encounter
--- OUTSIDE RECORDS SUMMARY | 2024-10-30 01:35 | XMS_ITS | Encounter Summary ---
Author Organization [facility] Address [facility] [address] [place] [address] Care Team Providers Care Table Setter Name Role Phone Curt Cassidy MD Primary Care Provider [phone] Reason for Visit * Auth/Cert Specialty Diagnoses / Procedures Referred By Contac t Referred To Contact Diagnoses elbow wound Procedures PRO EXPLORE/DRAIN ELBOW FOR INFECT PRO MUSCLE-SKIN FLAP, ARM PRO SPLIT GRFT TRUNK, ARM, LEG <100SQCM ARTHROTOMY, ELBOW, EXPLORATION, DRAINAGE, OR REMOVAL FB (WRVU 6.08) Referral ID Status Reason Start Date Expiration Date Visits Re quested Visits Authorized [id number] 1 1 Encounter Details Date Type Department Care Team (Late st Contact Info) Description 05/28/2018 12:04 PM EDT Anesthesia Event [place] [address] Carlos Martel MD [facility] [place] [address] Emmy Hussein, SOCIAL RESEARCH ASSISTANT [facility], B[facility]-[address] [place] [address] Anesthesia Record Procedure Summary Procedure Name Responsible Anesthesiologist Anesthesia Start Time Anesthesia Stop Time ARTHROTOMY, ELBOW, EXPLORATION, DRAINAGE, OR REMOVAL FB (WRVU 6.08) (Left: Elbow) Carlos Martel MD 05/28/18 1204 05/28/18 1708 Events Date Time Event Comment 05/28/2018 1131 1204 AN Verify 1204 Start 1204 An Start Data 1210 An Induction 1213 An Intubation 1218 Anesthesia Ready 1236 An Tourn Inflated 1242 Procedure Start 1247 Break/Relief In DANE SHER, CASH APPLICATIONS SPECIALIST 1318 Break/Relief Out 1337 An Tourn Deflated 1337 Quick Note Start plastics portion 1433 Break/Relief In Minor Sam honorio, CASH APPLICATIONS SPECIALIST 1450 Break/Relief Out 1658 Extubation/LMA Out 1659 an stop data 1708 Recovery or ICU Handoff Amanda ent care was transferred to the destination unit staff after review of the patient's medical history, current anesthetic/surgical status and plan, according to the Provider Handoff Checklist. 1708 Stop Meds Name Total Midazolam 2 mg fentaNYL 200 mcg IV Lidocaine 60 mg Propofol 100 mg Rocuronium 60 mg Ondansetron 8 mg Dexamethasone 8 mg Neostigmine 2 mg Glycopyrrolate 0.4 mg Ketamine 10 mg/mL 40 mg Ketamine INF 160.59 mg ceFAZolin (ANCEF) 2g in dextrose 5% 100 mL 4 g hydrocortisone 100 mg Labetalol 20 mg HYDROmorphone 0.2 mg lactated Ringers infusion 1,000 mL 1,000 mL Lactated Ringers 800 mL * Agents Name O2 Air N2O Sevoflurane (et) * Blood No blood administrations on file. Lines, Drains, and Airways Type Details Placement Removal Drain/Device Site 05/28/18; 1539; Left ; posterior; elbow; collapsible closed device; (Dr. Stack); Sterile prep and drape 05/28/18 1539 by Karol Shepard, [place] Drain/Device Site 05/28/18; 1541; Left ; distal; other (see comments) (arm.); collapsible closed device; (Dr. Stack); Sterile prep and drape 05/28/18 1541 by Karol Shepard RN Incision 11/02/13; knee; 05/28/18; 1918 11/02/13 0000 by Hunter Ordoñez RN 05/28/181917 by Katharina Gamboa RN Arterial Line radial artery, right ; 20 gauge; Rosa Avery CRNA; Sterile Prep, Sterile Gloves; Not found on assessment; 06/01/18; 2230 05/28/18 1239 by 06/01/18 2230 by Rosetta Joiner RN (RETIRED) PICC Line - Double Lumen 04/24/18; 1700; other (see comments); other (see comments); [facility]; no longer indicated (removed by ); 06/03/18; 1400 04/24/18 1700 by Jackelyn Anderson RN 06/03/18 1400 by Patricia Ulloa RN Urethral Catheter 05/28/18; 1200; Physician order, Surgery longer than 2 hours; Prolonged Immobilization, Physician order; indwelling double lumen catheter; hydrophilic coated; 14; inserted at this facility; 1; 5; 10; none; drainage bag to dependent drainage; urethral catheter removed; 05/28/18; 23505/28/18 1200 by Karol Shepard RN 05/28/18 2351 by Jodi Man LNA (RETIRED) Peripheral IV Line - Single Lumen 05/28/18; 1216; metacarpal vein (top of hand), right; [id number] catheter system; 18 gauge; Rosa Avery CRNA; 06/02/18; 1740 05/28/18 1216 by Jm Avery CRNA 06/02/18 1740 by Matilda Ortiz ETT Mask Ventilation: Ea sy (1); ETT Type: Cuffed; ETT Size: 7 mm; Mac Blade: 3; Exchange: Bougie; Notes: Asleep, Pre-O2, Cricoid Pressure; Attempts: 1; Laryngoscopy Grade: 3; ETT Placement Verified By: Auscultation, Capnometry; Secured at Teeth: 20 cm; Inserted by: Rosa Avery CRNA; Removal Date: 05/28/18; Removal Time: 165705/28/18 1218 by Jm Avery CRNA 05/28/18 1658 by Jm Avery CRNA Incision 05/28/18; 1241; elbo w; 07/16/22 (LDA cleanup utility RA#[id number]); 1715 (LDA cleanup utility RA#[id number]) 05/28/18 1241 by Karol Shepard RN 07/16/22 1715 by Ingrid Rios Incision 05/28/18; 1345; arm; 07/16/22 (LDA cleanup utility RA#[id number]); 1715 (LDA cleanup utility RA#[id number]) 05/28/18 1345 by Karol Shepard RN 07/16/22 1715 by Ingrid Rios Incision 05/28/18; 1455; thig h; other (see comments) (skin graft site. ); 07/16/22 (LDA cleanup utility RA#[id number]); 1715 (LDA cleanup utility RA#[id number]) 05/28/18 1455 by Karol Shepard RN 07/16/22 1715 by Ingrid Rios documented in this encounter Social History Tobacco Use Types Packs/Day Years Used Date Smoking Tobacco: Never Smokeless Tobacco: Never Alcohol Use Standard Drinks/Week Comments No 0 (1 standard drink = 0.6 oz pur e alcohol) Sex and Gender Information Value Date Recorded Sex Assigned at Not on file Gender Identity Not on file Sexual Orientation Not on file documented as of this encounter OR Notes * Anesthesia Postprocedure Evaluation - Carlos Martel - 05/28/2018 8:17 PM EDT [facility] Department of Anesthesiology Post-procedure Note Patient: Marla Denton Procedure Summary Date Anesthesia Start Anesthesia Stop Room / Location 05/28/18 1204 1708 [facility] OR / [facility] MAIN OR Procedure Diagnosis Surgeon Responsible Provider ARTHROTOMY, ELBOW, EXPLORATION, DRAINAGE, OR REMOVAL FB (WRVU 6.08) (Left Elbow); NEUROPLASTY &/OR TRANSPOSITION, ULNAR NERVE AT ELBOW (WRVU 7.26) (Left Elbow); FLAP, MYOCUTANEOUS OR FASCIOCUTANEOUS, UPPER EXTREMITY (WRVU 17.04) (Left ); SPLIT THICK SKIN GRAFT,100 SQ CM OR LESS, ARMS (WRVU 9.9)(N/A Leg) (elbow wound) Lorie Fuller MD; Rupert Masters MD Clark, [place], MD All Anesthesia Providers: Anesthesiologist: Carlos Martel MD; Paulina King MD CASH APPLICATIONS SPECIALIST: Jm Avery CRNA Most Recent Vitals: 05/28/182012 BP: 174/76 Pulse: Resp: Temp: 36.6 ??C (97.9 ??F) SpO2: 100% Pain 5 (05/28/181921) Patient Location: PACU/SDP Level of Consciousness: Awake and Alert Pain Management: Satisfactory Analgesia PONV: None Cardiovascular Status: At Baseline Respiratory Status: At Baseline and Room Air Postoperative Fluid Status: Intravascular EUvolemia Possible Anesthetic Complications: NONE apparent at time of evaluation Final Primary Anesthesia Type: General (The anesthetic type performed was the same as planned.) Comments: * Anesthesia Preprocedure Evaluation - Paulina King MD - 05/28/2018 11:25 AM EDT Pre-Anesthesia Evaluation for: Marla Denton a 62 y.o. female. Procedure(s): ARTHROTOMY, ELBOW, EXPLORATION, DRAINAGE, OR REMOVAL FB (WRVU 6.08) FLAP, MYOCUTANEOUS OR FASCIOCUTANEOUS, UPPER EXTREMITY (WRVU 17.04) SPLIT THICK SKIN GRAFT,100 SQ CM OR LESS, ARMS (WRVU 9.9) Patient Active Problem List Diagnosis ??? Chronic prescription opiate use As of May 2018: methadone 10 mg, #5 per day, prescribed by her PCP. ??? Anticoagulated on Coumadin ??? Patient is Jehovah's witness ??? Elbow joint replacement status, left Dr. Mcgill January 2018 ??? Elbow wound, left, initial encounter ??? Chronic obstructive bronchitis ??? Rheumatoid lung disease ??? Tendonitis, Achilles, left Retrocalcaneal ??? Lung nodule seen on imaging study [...] gain ??? Cervicalgia ??? Pain in limb Bilateral leg pain ??? jail (current) use of anticoagulants ??? Encounter for long-term (current) use of other medications Rheumatologic meds ??? DJD (degenerative joint disease) of knee Post R TKR 2003 ??? Internal derangement of knee Left knee medially ??? RA (rheumatoid arthritis) ??? Edema leg Right ??? Cellulitis of leg, right recurrent ??? Popliteal cyst Persistent, right ??? MRSA (methicillin resistant Staphylococcus aureus) infection Chronic carriage Display name was automatically updated by a utility run on 02/20/2012 ??? Seronegative rheumatoid arthritis Past Medical History: Diagnosis Date ??? Allergic state ??? Arthritis ??? Elbow wound, left, initial encounter 04/28/2018 ??? Hypertension ??? Sjogren's syndrome ??? Thyroid disease Past Surgical History: Procedure Laterality Date ??? CERVICAL FUSION ??? HAND TENDON SURGERY ??? HYSTERECTOMY, TOTAL ABDOMINAL ??? PRO TOTAL KNEE ARTHROPLASTY 11/02/2013 @TOTAL KNEE ARTHROPLASTY performed by Mayco Montanez Jr., MD at [facility] MAIN OR ??? SHOULDER SURGERY ??? TOTAL ELBOW ARTHROPLASTY Left 01/2018 Social History Substance Use Topics ??? Smoking status: Never Smoker ??? Smokeless tobacco: Never Used ??? Alcohol use No History Drug Use No Allergies Allergen Reactions ??? Infliximab Anaphylaxis and Other (See Comments) throat swelling,chest heaviness ??? Iodinated Contrast- Oral And Iv Dye Anaphylaxis ??? Iodine And Iodide Containing Products Anaphylaxis ??? Vancomycin Anaphylaxis ??? Wellbutrin [Bupropion Hcl] Other (See Comments) Causes retless leg syndrome ??? Ms Contin [Morphine] ??? Sulfa (Sulfonamide Antibiotics) ??? Sulfisoxazole ??? Sulfisoxazole Acetyl Unknown Medications: MAR and/or home medications have been reviewed. Physical Exam: Most Recent Vitals: 05/28/18 1041 BP: 148/77 Pulse: 99 Resp: 18 Temp: 36.6 ??C (97.9 ??F) SpO2: 95% Body mass index is 35.36 kg/(m^2). Height: 151.1 cm (4' 11.49) Weight: 80.7 kg (178 lb) Airway Assessment: Mallampati: III TM distance: >3 FB Neck ROM: full Cardiovascular Assessment: Pulmonary Assessment: Dental Assessment: - normal exam Misc Assessment: IV access: Peripheral line Anesthesia Plan: ASA 3 general, with a(n) intravenous induction Ms. Denton is a 62 year old [employer]ian, chronically anticoagulated on coumadin (last dose 05/22), on chronic opioids (methadone 20 mg TID, PRN oxycodone), with RA s/p TSA, TKA and cervical fusion, s/p elbow replacement complicated by MRSA infection, known ulnar nerve injury, who is scheduledfor arthrotomy, flap reconstruction. Allergies reviewed. Plan for preoperative methadone, GETA, large bore PIV access, invasive BP monitoring. Risks were discussed at length, and all questions and concerns were addressed. Consent was obtained, and the appropriate paperwork was placed in the patient's chart. Region - Other Informed Consent: Anesthetic plan and risks discussed with patient. Use of blood products discussed with patient who did not consent to blood products. Special considerations: [employer]ian. Plan discussed with CASH APPLICATIONS SPECIALIST. PAT Staff Note documented in this encounter Plan of Treatment Not on file documented as of this encounter Visit Diagnoses Not on filedocumented in this encounter Administered Medications Inactive Administered Medications - up to 3 most recent administrations Medication Order MAR Action Action Date Dose Rate Site ceFAZolin (ANCEF) 2g in dextrose 5% 100 mL 2 g, Intravenous, ONCE, 1 dose, On Sat05/28/18 at 1045, Administer over 30 Minutes, Indication for (Active or Suspected): Prophylaxis Given 05/28/2018 4:18 PM EDT 2 g Given 05/28/2018 1:18 PM EDT 2 g dexamethasone (DECADRON) injection PRN, Starting on Sat05/28/18 at 1210, Until Sat05/28/18 at 1717, Anesthesia Intra-op, Routine Given 05/28/2018 12:10 PM EDT 8 mg fentaNYL 50 mcg/mL multi-dose injection PRN, Starting on Sat05/28/18 at 1210, Until Sat05/28/18 at 1717, Pain, Anesthesia Intra-op, Routine Given 05/28/2018 3:23 PM EDT 50 mcg Given 05/28/2018 12:47 PM EDT 50 mcg Given 05/28/2018 12:10 PM EDT 100 mcg glycopyrrolate (ROBINUL) multi-dose injection PRN, Starting on Sat05/28/18 at 1626, Until Sat05/28/18 at 1717, Anesthesia Intra-op, Routine Given 05/28/2018 4:26 PM EDT 0.4 mg hydrocortisone sodium succinate (PF) (Solu-CORTEF) injection PRN, Starting on Sat05/28/18 at 1458, Until Sat05/28/18 at 1717, Anesthesia Intra-op, Routine Given 05/28/2018 2:58 PM EDT 100 mg HYDROmorphone (DILAUDID) injection PRN, Starting on Sat05/28/18 at 1703, Until Sat05/28/18 at 1719, Pain, Anesthesia Intra-op, Routine Given 05/28/2018 5:03 PM EDT 0.2 mg ketamine (KETALAR) 10 mg/mL bolus injection (Anesthesia) PRN, Starting on Sat05/28/18 at 1210, Until Sat05/28/18 at 1717, Anesthesia Intra-op Given 05/28/2018 12:10 PM EDT 40 mg ketamine (KETALAR) 10 mg/mL injection CONTINUOUS PRN, Starting on Sat05/28/18 at 1229, Until Sat05/28/18 at 1717, Anesthesia Intra-op, Routine New Bag 05/28/2018 12:29 PM EDT 10 mcg/kg/min 4.8 mL/hr labetalol (NORMODYNE,TRANDATE) multi-dose injection PRN, Starting on Sat05/28/18 at 1655, Until Sat05/28/18 at 1719, High Blood Pressure, Anesthesia Intra-op, Routine Given 05/28/2018 5:04 PM EDT 10 mg Given 05/28/2018 4:59 PM EDT 5 mg Given 05/28/2018 4:55 PM EDT 5 mg lactated Ringers infusion 1,000 mL 1,000 mL, at 100 mL/hr, Intravenous, CONTINUOUS, Starting on Sat05/28/18 at 1045, Until Sat05/28/18 at 1947, Day of Surgery (Day of Procedure) New Bag 05/28/2018 3:45 PM EDT New Bag 05/28/2018 11:05 AM EDT 1,000 mLs 100 mL/hr lactated Ringers infusion CONTINUOUS PRN, Starting on Sat05/28/18 at 1204, Until Sat05/28/18 at 1717, Anesthesia Intra-op New Bag 05/28/2018 12:04 PM EDT lidocaine (PF) (XYLOCAINE) 100 mg/5 mL (2 %) injection PRN, Starting on Sat05/28/18 at 1210, Until Sat05/28/18 at 1717, Anesthesia Intra-op, Routine Given 05/28/2018 12:10 PM EDT 60 mg midazolam (PF) (VERSED) 1 mg/mL multi-dose injection PRN, Starting on Sat05/28/18 at 1204, Until Sat05/28/18 at 1717, Sleep, Anesthesia Intra-op, Routine Given 05/28/2018 12:04 PM EDT 2 mg neostigmine (BLOXIVERZ) injection PRN, Starting on Sat05/28/18 at 1626, Until Sat05/28/18 at 1717, Anesthesia Intra-op, Routine Given 05/28/2018 4:26 PM EDT 2 mg ondansetron (ZOFRAN) injection PRN, Starting on Sat05/28/18 at 1621, Until Sat05/28/18 at 1717, Nausea, Anesthesia Intra-op, Routine Given 05/28/2018 4:21 PM EDT 8 mg propofol (DIPRIVAN) 10 mg/mL bolus injection (Anesthesia) PRN, Starting on Sat05/28/18 at 1210, Until Sat05/28/18 at 1717, Anesthesia Intra-op Given 05/28/2018 12:10 PM EDT 100 mg rocuronium (ZEMURON) multi-dose injection PRN, Starting on Sat05/28/18 at 1210, Until Sat05/28/18 at 1717, Anesthesia Intra-op, Routine Given 05/28/2018 1:44 PM EDT 10 mg Given 05/28/2018 12:10 PM EDT 50 mg documented in this encounter Care Teams Table Setter Relationship Specialty Start Date End Date Curt Cassidy MD [address] [facility], [address] [address] PCP - General 10/10/10 documented as of this encounter
--- OUTSIDE RECORDS SUMMARY | 2024-10-30 01:35 | XMS_ITS | Encounter Summary ---
Author Organization [facility] Address [facility] [place] [address] Care Team Providers Care Yarn Conditioner Name Role Phone Curt Cassidy MD Primary Care Provider [phone] Reason for Visit * Auth/Cert Specialty Diagnoses / Procedures Referred By Contac t Referred To Contact Diagnoses elbow wound Procedures PRO EXPLORE/DRAIN ELBOW FOR INFECT PRO MUSCLE-SKIN FLAP, ARM PRO SPLIT GRFT TRUNK, ARM, LEG <100SQCM ARTHROTOMY, ELBOW, EXPLORATION, DRAINAGE, OR REMOVAL FB (WRVU 6.08) Referral ID Status Reason Start Date Expiration Date Visits Re quested Visits Authorized [id number] 1 1 Encounter Details Date Type Department Care Team (Late st Contact Info) Description 05/28/2018 11:58 AM EDT - 05/28/2018 4:28 PM EDT Surgery [place] [address] Lorie Fuller MD [facility] [place] [address] NEUROPLASTY &/OR TRANSPOSITION, ULNAR NERVE AT ELBOW (WRVU 7.26) Social History Tobacco Use Types Packs/Day Years [...] something. She arrives today via ambulance from [facility]. ?? She is immunosuppressed on Prednisone and [...] 17.04) performed by Erna Castro MD at [facility] MAIN OR ??? PRO REVISE ULNAR NERVE AT ELBOW Left 05/28/2018 NEUROPLASTY &/OR TRANSPOSITION, ULNAR NERVE AT ELBOW (WRVU 7.26) performed by Lorie Fuller MD at [facility] OR ? ? PRO SPLIT GRFT TRUNK, ARM, LEG <100SQCM N/A 05/28/2018 SPLIT THICK SKIN GRAFT,100 SQ CM OR LESS, ARMS (WRVU 9.9) performed by Erna Castro MD at [facility] [...] Refills: 0 vitamin D 50,000 unit Cap 58039 unit, PO, once a month Generic drug: [...] PROBIOTIC ORAL Narcotics: Opioid PDMP 05/15/2018 05/15/2018 [place] Query Date 06/03/2018 05/15/2018 [place] Query Date - 05/15/2018 [place] QUERY DATE: 06/03/18 Risk Assessment Category: Low Marla Davis Corrie is getting a prescription opioid for [...] scheduling, please contact our administrative offices at [phone]. For clinical questions, please call our nurses at [phone]. Both offices are open Saturday thru Saturday 8a - 5p. With emergencies after hours, call the hospital projector booth operator at [phone] and ask for the Plastic Surgery Resident hospital admissions officer. Scheduled Appointments: Future Appointments Date Time Provider Department Center 06/10/2018 9:20 AM Pushpa Sullivan APRN [facility]b [facility]as 4M [facility] 06/12/2018 2:20 PM Laura Lofton PA Leb Ortho 3A [facility] 08/27/2018 1:00 PM Azael Espinosa MD Leb Ophth 4B [facility] 10/03/2018 2:00 PM PFT TEST MH PFT YASMIN MEYERSCO 10/03/2018 3:00 PM Z[facility]z [facility]: Referral to Home Health - at DISCHARGE Order Comments: DOCUMENTATION FOR VNA SERVICES (INCLUDING THOSE PATIENTS WITH MEDICARE COVERAGE REQUIRING HOME VNA SERVICES AND/OR HOSPICE SERVICES) PATIENT'S LOCATION: Marla Denton [address] [place] [address] Dr Grecia [facility] [address] (home) Cell: No relevant phone numbers on file. Cost Recorder's Name: self and sister In discussion with the attending physician, it is certified that this patient is under their care and that they, or a Nurse Practitioner,Clinical Nurse specialist or Physician Supervisor Stone who is working directly with them, had [...] for managing ADL's and evaluate need for RESISTOR INSPECTOR as appopriate HOME HEALTH CARE AGENCY: [facility] PHONE: [phone] FAX: [phone] Start of care: 24-48 hrs FOR MEDICARE [...] from this patient's PCP: Curt Cassidy MD [address] [place] [address], [address] [address] All A agencies which cover the area of patient's residence have been reviewed, either verbally john writing, and patient/family have chosen the home health care agency noted Question Response Notes Agency name and contact information [facility] Patient location post discharge home What services are requested Registered Nurse What services are requested Physical Therapy What services are requested Occupational Therapy What services are requested Home Health Aide Responsible MD post discharge contact info PCP Instructions Given to Patient at Discharge: Patient Instructions What to Expect.... The healing process varies with each person. Pain (short term and group home) With any surgery there is some discomfort or pain. We will prescribe medicine for pain. You should take the medicine as prescribed and only as needed. We recommend taking an wsqi-xwl-Phfyros stool softener, such as Colace (docusate) or [...] on Sat, Sat, , -Take 5mg on Mon, Wed, Satd -Have VNA take ProTime draw blood early [...] about scheduling, please contact our administrative officesat [phone] For clinical questions, please call our nurses at [phone] Both offices are open Saturday thru Saturday 8a - 5p. With emergencies after hours, call the hospital projector booth operator at [phone] and ask for the Plastic Surgery Resident hospital admissions officer. General Instructions None Future Appointments and Orders Future Appointments Provider Department Dept Phone 06/10/2018 9:20 AM Pushpa Sullivan APRN Plastic [facility] [place] [phone] 08/27/2018 1:00 PM Azael Espinosa MD Ophthalmology [facility] [place] [phone] 10/03/2018 2:00 PM PFT TEST [facility]monology [facility] [place] [phone] 10/03/2018 3:00 PM Zaki Galdamez MD [facility]mon[facility] [place] [phone] Future Orders Complete By Expires Referral to Home Health - at DISCHARGE [[id number] CPT(R)] As directed Process Instructions: Scheduling Instructions: Comments: DOCUMENTATION FOR VNA SERVICES (INCLUDING THOSE PATIENTS WITH MEDICARE COVERAGE REQUIRING HOME VNA SERVICES AND/OR HOSPICE SERVICES) PATIENT'S LOCATION: Marla Denton [address] [place] [address] Dr Grecia [facility] [phone] (home) Cell: No relevant phone numbers on file. Cost Recorder's Name: self and sister In discussion with the attending physician, it is certified that this patient is under their care and that they, or a Nurse Practitioner,Clinical Nurse specialist or Physician Supervisor Stone who is working directly with them, had [...] for managing ADL's and evaluate need for RESISTOR INSPECTOR as appopriate HOME HEALTH CARE AGENCY: [facility] PHONE: [phone] FAX: [phone] Start of care: 24-48 hrs FOR MEDICARE [...] from this patient's PCP: Curt Cassidy MD [address] [place] [address], [address] [address] All VNA agencies which cover the area of patient's residence have been reviewed, either verbally john writing, and patient/family have chosen the home health care agency noted Questions: Agency name and contact information: [facility] Patient location post discharge: home What services [...] with each person. Pain (short term and group home) With any surgery there is some discomfort or pain. We will prescribe medicine for pain. You should take the medicine as prescribed and only as needed. We recommend taking an bysp-cdr-Nqxkvqa stool softener, such as Colace (docusate) or [...] following doses: -Take 2.5 mg on Sat, Sun, Tues, Thurs -Take 5mg on Mon, Wed, Frid -Have VNA take ProTime draw blood early [...] about scheduling, please contact our administrative officesat [phone] For clinical questions, please call our nurses at [phone] Both offices are open Saturday thru Saturday 8a - 5p. With emergencies after hours, call the hospital projector booth operator at [phone] and ask for the Plastic Surgery Resident hospital admissions officer. documented in this encounter Medications at Time [...] 11/05/2013 ergocalciferol (VITAMIN D) 50,000 unit capsule 28209 unit, PO, once a month 10/23/2010 budesonide-formotero [...] in the past). [facility] nurse and infectious disease doctor if [...] Pt is agreeable to continue with the [facility] to assist with monitoring and management [...] [93 %-97 %] Intake and Output: Last 06/02 0701 - 06/03 0700 In: 480 [...] Code Status: Full Code Plastics Team Pager: [phone] ANGELICA Cancino 06/03/2018 8:42 AM * Aayush [...] Infectious disease fellow 06/02/2018 11:40 AM Pager [phone] Associated attestation - Azael Palm MD - [...] should be faxed to our office at [phone]. We will arrange for ID follow-up in [...] ??? Anticoagulated on Coumadin ??? Patient is Sikhism ??? Elbow joint replacement status, left Dr. [...] ??? Cervicalgia ??? Pain in limb ??? care home (current) use of anticoagulants ??? Encounter for [...] 3:00 PM Zaki Galdamez MD Leb Pul [facility] * Ramila Mehta PA - 06/02/2018 [...] Code Status: Full Code Plastics Team Pager: [phone] ANGELICA Cancino 06/02/2018 7:44 AM * Constantino [...] Code Status: Full Code Plastics Team Pager: [phone] CONSTANTINO ASENCIO MD 06/01/2018 9:09 AM * [...] [92 %-98 %] Intake and Output: Last 05/30 0701 - 05/31 0700 In: 840 [...] 159 Cultures: 05/28 wound: NGTD Assessment: Marla E Corrie is a 62 y.o. female s/p exploration, [...] Code Status: Full Code Plastics Team Pager: [phone] CONSTANTINO ASENCIO MD 05/31/2018 11:18 AM * [...] do not hesitate to page us at [phone] after hours or primary fellow (pager below) during daytime hours. ?? Olivia Del Rosario MD Infectious Disease Fellow Pager #[phone] ID Attending I interviewed and examined the [...] OFFICE OF CARE MANAGEMENT Office of Care Management/Pizza Delivery Driver(CM) Home IV Antibiotic Therapy Referral Note. Report [...] [facility] PHONE: [phone] FAX: [phone] Referrals sent via Printed Piece. Home Infusion Vendor: Patient requested referral to [place], [place] or Referrals sent via Printed Piece. Diabetic Status: Patient is/ a diabetic IV access: Type of line: PICC DUEL LUMEN * Rosa Maria Cohen RN - 05/30/2018 10:41 AM EDT Office of Care Management Initial Assessment ROSA MARIA COHEN RN reviewed record and discussed patient with Care Team. Source of Information: eDH and patient Introduced self/reviewed role; services accepted. Reason for Hospitalization:Ms. Denton is a 62 year old Hol[place], chronically anticoagulated on coumadin (last dose 05/22), [...] Her sister was assist with IV abx TIRE BUFFER. Sister assists pt with ADL's and meals if needed. They have arranged the taoism assist with meals. 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 Other Pertinent/Service Specific Information: None Health/Prescription Coverage: Primary Insurance: Payor: [place] / Plan: [place] PRIMARY CARE PLUS / Product Type: *No Product type* / Secondary Insurance: Prescription Coverage: see above Preferred Pharmacy: [facility] [address], [place] [address] [address] [facility] [place] [address] [place] [address] Other: None Primary Care Provider: Curt Cassidy MD [phone] Patient/Caregiver Goals of Treatment: Safe discharge Potential Needs for Transition of Care: Rehab/SNF: has been to [facility] in past Home Health: The patient/guest service representative has been provided a list of Home Health Agencies/DME vendors which servetheir preferred geographic area. A letter describing our affiliations was reviewed with them and they were educated about their right to choose where referrals are placed. Patient requests referral to [facility] [employer]. PHONE: [phone] FAX: [phone] Expected date of discharge: TBD Referral routed to the Bicycle Technician for matching with agency/vendor and to provide [...] care planning. ROSA MARIA COHEN RN Pager: [phone] * Misha Celaya - 05/30/2018 6:23 AM [...] ??? Anticoagulated on Coumadin ??? Patient is Sikhism ??? Elbow joint replacement status, left Dr. [...] ??? Cervicalgia ??? Pain in limb ??? care home (current) use of anticoagulants ??? Encounter for [...] PM Laura Lofton PA Leb Ortho 3A [facility] 08/27/2018 1:00 PM Azael Espinosa MD Leb Ophth 4B [facility] 10/03/2018 2:00 PM PFT TEST PFT YASMIN JAIMES 10/03/2018 3:00 PM Zaki Galdamez MD Leb [facility] * Ramila Mehta PA - 05/30/2018 [...] agreed with the plan. Plastics Team Pager: [phone] ANGELICA Cancino 05/30/2018 9:27 AM * Johanna [...] ??? Anticoagulated on Coumadin ??? Patient is Sikhism ??? Elbow joint replacement status, left Dr. [...] ??? Cervicalgia ??? Pain in limb ??? supervisor intermediates (current) use of anticoagulants ??? Encounter for [...] prn - Dressings: per plastics - Dispo: NORMA Celaya MD 05/29/2018 Future Appointments Date Time Provider Department Center 06/12/2018 2:20 PM Laura Lofton PA [facility]b Ortho 3A [facility] 08/27/2018 1:00 PM Azael Espinosa MD Leb Ophth 4B [facility] 10/03/2018 2:00 PM [facility] 10/03/2018 3:00 PM Zaki Galdamez MD Leb [facility] * Ramila Mehta PA - 05/29/2018 [...] [89 %-100 %] Intake and Output: Last 05/28 0701 - 05/29 0700 In: 2040 [...] agreed with the plan. Plastics Team Pager: [phone] ANGELICA Cancino 05/29/2018 1:11 PM * Tim [...] doppler signal present. Cap refill <2 sec. [place]. WWP Assessment/Plan: Marla Denton is a 62 y.o. female s/p left elbow skin graft currently in stable condition and recovering well. - pain well controlled - hemodynamically stable - UOP adequate Tim Jimenez MD * Roxane Urrutia RN - 05/28/2018 6:20 PM EDT 1820 - dinner break coverage. Pt. Resting quietly. Will assess pain level * Katharina Gamboa, [place] - 05/28/2018 5:31 PM EDT Pt arrived to PACU from OR, placed on monitor and alarms adjusted. Received report. documented in this encounter H&P Notes * Celaya Misha W - 05/28/2018 11:16 AM EDT The [...] ??? ergocalciferol (VITAMIN D) 50,000 unit capsule 67367 unit, PO, once a month (Patient taking [...] LESS, ARMS (WRVU 9.9) Opioid PDMP 05/15/2018 [place] PDMP Query Date 05/15/2018 [place] PDMP Query Date 05/15/2018 [place] PDMP QUERY DATE: 05/28/18 Risk Assessment Category: [...] PM Laura Lofton PA [facility] Ortho 3A [facility] 08/27/2018 1:00 PM Azael Espinosa MD Leb Ophth 4B [facility] 10/03/2018 2:00 PM PFT TEST MH PFT YASMIN JAIMES 10/03/2018 3:00 PM [facility]z [facility] Cristian Rodriguez MD Plastic Surgery Resident, PGY-8 documented in this encounter Miscellaneous Notes * Plan of Care - Rosetta Joiner RN - 06/02/2018 10:55 PM EDT Problem: Patient Care Overview Goal: Plan of Care Review Outcome: Ongoing (Interventions Implemented as Appropriate) 06/02/18 7610 Plan of Care Review Progress improving Coping/Psychosocial [...] Outcome: Ongoing (Interventions Implemented as Appropriate) 05/29/18 07506/02/18455 Discharge Needs Assessment Concerns To Be Addressed [...] Conf Outcome: Ongoing (Interventions Implemented as Appropriate) 06/02/182252 Interdisciplinary Rounds/Family Conf Participants nursing;patient Problem: Skin Integrity Impairment, Risk/Actual (Adult) Goal: Skin Integrity/Wound Healing Patient will demonstrate the desired outcomes by discharge/transition of care. Outcome: Ongoing (Interventions Implemented as Appropriate) 06/02/182252 Skin Integrity Impairment, Risk/Actual (Adult) Skin Integrity/Wound [...] Control Outcome: Ongoing (Interventions Implemented as Appropriate) 06/01/18 194 Safety Interventions Isolation Precautions standard precautions maintained Infection Prevention rest/sleep promoted;barrier precautions utilized Coping Strategies Supportive Measures self-reflection promoted;self-care encouraged;relaxation techniques promoted;self-responsibility promoted;verbalization of feelings encouraged;decision-making supported;counselingprovided;active listening utilized Goal: Discharge Needs Assessment Outcome: Ongoing (Interventions Implemented as Appropriate) 05/29/1875806/02/18455 Discharge Needs Assessment Concerns To Be Addressed [...] Marla Denton is a 62 y.o. female [place], chronically anticoagulated on coumadin(last dose 05/22), on [...] TID Bowel Regimen Assessment: 62 y.o. female [place], chronically anticoagulated on coumadin (last dose 05/22), [...] the care of this patient. Please page [phone] for further questions SAIMA PAGAN MD I [...] Marla Denton is a 62 y.o. female [place], chronically anticoagulated on coumadin(last dose 05/22), on [...] TID Bowel Regimen Assessment: 62 y.o. female [place], chronically anticoagulated on coumadin (last dose 05/22), [...] APS will continue to follow Please page [phone] for further questions SAIMA PAGAN MD I [...] M54.2 ??? Pain in limb M79.609 ??? care home (current) use of anticoagulants Z79.01 ??? [...] on Coumadin Z51.81, Z79.01 ??? Patient is Sikhism Z78.9 ? ? S/P left elbow I&D, [...] Rodriguez MD - 05/28/2018 4:[address] [facility] Brief Operative Note Patient Name: Marla Denton : 1955 MR#: [id number] Case Date: 05/28/2018 Surgeon: Surgeon(s) and Role: MD Sonam - Primary MD Michael Preoperative diagnosis: elbow wound Postoperative diagnosis: elbow wound Procedure(s): FLAP, MYOCUTANEOUS OR FASCIOCUTANEOUS, UPPER EXTREMITY (WRVU 17.04) SPLIT THICK SKIN GRAFT,100 SQ CM OR LESS, ARMS (WRVU 9.9) NEUROPLASTY &/OR TRANSPOSITION, ULNAR NERVE AT ELBOW (WRVU 7.26) Anesthesia: gen Estimated Blood Loss: 30cc Specimens removed during surgery: see Dr Avlarado portion Drains: 3 x 15 tamara drains [...] PM Laura Lofton PA [facility] Ortho 3A [facility] 08/27/2018 1:00 PM Azael Espinosa MD Leb Ophth 4B [facility] 10/03/2018 2:00 PM PFT TEST MH PFT YASMIN MEYERSIL 10/03/2018 3:00 PM Zaki Galdamez [facility] Cristian Rodriguez MD Plastic Surgery, PGY-8 * Op Note - Erna Castro MD - 05/28/2018 3:[address] [facility] Operative Note Patient Name: Marla Denton : [id number] MR#: [id number] Case Date: 05/28/2018 Surgeon: Surgeon(s) and Role: [...] Fuller MD - 05/28/2018 2:[address] [facility] Operative Note Patient Name: Marla Denton : [id number] MR#: [id number] Case Date: 05/28/2018 Surgeon: Surgeon(s) and Role: [...] left elbow was marked with the green [place]. The plan was reviewed with the patient [...] CULTURE Routine 05/28/2018 1:1 8 PM EDT DIRECTOR OF PROFESSIONAL SERVICES CULTURE Routine 05/28/2018 1:18 PM EDT NEUROPLASTY [...] (ABNORMAL) Differential, Automated (06/03/2018 1:55 PM EDT) Pathologist [facility] Neutrophil % 73.3 % [facility] Neutrophil Absolute 9.38(H) 1.70 - 6.10 x10(3)/ L [facility] Lymph % 15.0 % [facility] Lymphocytes Abs 1.9 0.9 - 3.2 x10(3)/ L [facility] Monocyte % 7.7 % [facility] Monocyte Abs 1.0(H) 0.3 - 0.9 x10(3)/ L [facility] Eos % 2.2 % [facility] Eosinophils Abs 0.3 0.0 - 0.4 x10(3)/[facility] Basophil % 0.8 % [facility] Baso Absolute 0.1 0.0 - 0.1 x10(3)/ L [facility] Immature Gran % 1.00 % [facility] Comment: Immature granulocytes(IG's)percentage and absolute count will include metamyelocytes, myelocytes, and promyelocytes. Blood smears from CBCs yielding IG's will be scanned manually for concordance. If this scan disagrees with the automated IG or if promyelocytes are noted, a manual differential will be performed. Immature Gran Absolute 0.13(H) 0.00 - 0.04 x10(3)/ L [facility] Blood specimen (specimen) 06/03/2018 1:55 PM EDT 06/03/2018 2:30 PM EDT Narrative Resulting Agency Comment Spec In Lab Julián Garcia MD HEMATOLOGY ORDERABLE S [facility] [place] [address] * (ABNORMAL) Hemogram (06/03/2018 1:55 PM EDT) White Blood Cell 12.8(H) 4.0 - 9.5 x10(3)/mc L [facility] Red Blood Cell 2.88(L) 4.00 - 5.21 x10(6)/mc L [facility] Hemoglobin 8.1(L) 11.7 - 15.5 gm/dL [facility] Hematocrit 24.5(L) 35.7 - 45.8 % [facility] Mean Cell Volume 85.1 82.6 - 94.4 fL [facility] Mean Cell Hemoglobin 28.1 27.1 - 32.0 pg [facility] Mean Cell Hemoglobin Concentration 33.1 31.7 - 35.0 gm/dL [facility] Platelet 364(H) 145 - 357 x10(3)/ L [facility] RDW Standard Deviation 63.8(H) 37.0 - 46.0 fL [facility] RDW coefficient of variation 21.6(H) 11.5 - 14.1 % [facility] Mean Platelet Volume 9.6 7.6 - 12.9 fL [facility] NRBC% auto 0.0 % [facility] NRBC Absolute 0.000 0.000 - 0.000 x10(3)/ L [facility] Blood specimen (specimen) 06/03/2018 1:55 PM EDT 06/03/2018 2:30 PM EDT Narrative Resulting Agency Comment Spec In Lab Julián Garcia MD HEMATOLOGY ORDERABLE S [facility] [place] [address] * Green Tube HOLD (06/03/2018 3:51 AM EDT) Pathologist [facility] Green Hold Sample in lab. [facility] Blood specimen (specimen) Venous Draw / Unknown 06/03/2018 3:51 AM EDT 06/03/2018 3:59 AM EDT Julián Garcia MD CHEMISTRY ORDERABLES [facility] [place] [address] * (ABNORMAL) Differential, Automated (06/03/2018 3:51 AM EDT) Neutrophil % 49.6 % [facility] Neutrophil Absolute 6.52(H) 1.70 - 6.10 x10(3)/mc L [facility] Lymph % 33.6 % [facility] Lymphocytes Abs 4.4(H) 0.9 - 3.2 x10(3)/[facility] Monocyte % 11.1 % [facility] Monocyte Abs 1.5(H) 0.3 - 0.9 x10(3)/ L [facility] Eos % 4.0 % [facility] Eosinophils Abs 0.5(H) 0.0 - 0.4 x10(3)/ L [facility] Basophil % 0.5 % [facility] Baso Absolute 0.1 0.0 - 0.1 x10(3)/[facility] Immature Gran % 1.20 % [facility] Comment: Immature granulocytes(IG's)percentage and absolute count will include metamyelocytes, myelocytes, and promyelocytes. Blood smears from CBCs yielding IG's will be scanned manually for concordance. If this scan disagrees with the automated IG or if promyelocytes are noted, a manual differential will be performed. Immature Gran Absolute 0.16(H) 0.00 - 0.04 x10(3)/ L [facility] Blood specimen (specimen) 06/03/2018 3:51 AM EDT 06/03/2018 3:59 AM EDT Narrative Resulting Agency Comment Spec In Lab Julián Garcia MD HEMATOLOGY ORDERABLE S [facility] [place] [address] * (ABNORMAL) Hemogram (06/03/2018 3:51 AM EDT) [facility] White Blood Cell 13.1(H) 4.0 - 9.5 x10(3)/mc L [facility] Red Blood Cell 2.74(L) 4.00 - 5.21 x10(6)/ L [facility] Hemoglobin 7.5(L) 11.7 - 15.5 gm/dL [facility] Hematocrit 23.2(L) 35.7 - 45.8 % [facility] Mean Cell Volume 84.7 82.6 - 94.4 fL [facility] Mean Cell Hemoglobin 27.4 27.1 - 32.0 pg [facility] Mean Cell Hemoglobin Concentration 32.3 31.7 - 35.0 gm/dL [facility] Platelet 327 145 - 357 x10(3)/mc L [facility] RDW Standard Deviation 63.0(H) 37.0 - 46.0 fL [facility] RDW coefficient of variation 21.5(H) 11.5 - 14.1 % [facility] [facility] Mean Platelet Volume 9.6 7.6 - 12.9 fL [facility] NRBC% auto 0.2 % [facility] NRBC Absolute 0.020(H) 0.000 - 0.000 x10(3)/ L [facility] Blood specimen (specimen) 06/03/2018 3:51 AM EDT 06/03/2018 3:59 AM EDT Narrative Resulting Agency Comment Spec In Lab Julián Garcia MD HEMATOLOGY ORDERABLE S [facility] [place] [address] * POCT Glucose (06/02/2018 6:05 PM EDT) Glucose, POC 118 65 - 199 mg/dL [facility] Comment: Supplemental ranges: <140 mg/dL before meals <180 mg/dL all other times of the day Blood specimen (specimen) 06/02/2018 6:05 PM EDT 06/02/2018 6:05 PM EDT Erna Castro MD POINT OF CARE TEST O RDERABLES Performing Organization Address [facility] de Phone Number [facility] [place] [address] * APTT (06/02/2018 10:52 AM EDT) [facility] Partial Thromboplastin Time 28 25 - 37 sec [facility] Comment: The PTT is NOT appropriate for heparin monitoring. Use the Anti-Xa level for heparin monitoring (HEP UFH) or LMWH monitoring (HEP LMW). A PTT less than 37 seconds generally indicates adequate hemostasis. Blood specimen (specimen) 06/02/2018 10:52 AM EDT 06/02/2018 11:00 AM EDT Narrative Resulting Agency Comment Spec In Lab Erna Castro MD HEMATOLOGY ORDERABLE S Performing Organization Address [facility] de Phone Number [facility] [place] [address] * Prothrombin Time (06/02/2018 10:52 AM EDT) [facility] Prothrombin Time 11.1 9.4 - 12.5 sec [facility] International Normalization Ratio 1.0 [facility] Comment: An INR <2.0 indicates [...] MD HEMATOLOGY ORDERABLE S Performing Organization Address City/[facility]/ZIP Co de Phone Number [facility] [place] [address] * CRP, acute inflammation (06/02/2018 10:41 AM EDT) C-Reactive Protein 2.3 <=4.9 mg/L [facility] Blood specimen (specimen) Venous Draw / Unknown 06/02/2018 10:41 AM EDT 06/02/2018 10:55 AM EDT Narrative Resulting Agency Comment Spec In Lab Julián Garcia MD CHEMISTRY ORDERABLES Performing Organization Address [facility] Co de Phone Number [facility] [place] [address] * (ABNORMAL) Basic Metabolic Panel (non-fasting) (06/02/2018 10:41 AM EDT) Glucose 154 65 - 199 mg/dL [facility] Comment:Diabetes: >=200 mg/d L plus symptoms Blood Urea Nitrogen 17 8 - 18 mg/dL [facility] Creatinine 1.08 0.70 - 1.20 mg/dL [facility] Sodium 139 135 - 145 mmol/L [facility] Potassium 4.3 3.5 - 5.0 mmol/L [facility] Comment: Please note: ??Patients with WBC >100,000 may have falsely elevated Potassium levels. ??For accurate Potassium quantification in these patients send serum separator tube (gold top) for subsequent determinations. ??Contact the Clinical Chemistry Laboratory if there are any questions. Chloride 95(L) 98 - 107 mmol/L [facility] Carbon Dioxide 29 22 - 31 mmol/L [facility] Anion Gap 15 5 - 15 mmol/L [facility] Calcium 8.9 8.5 - 10.5 mg/dL [facility] Est Glomerular Filtration Rate 56(L) >=60 mL/min/1. 73 m?? [facility] Comment: The eGFR was calculated using the CKD-EPI equation. As with all creatinine based estimates of kidney function, eGFR values calculated with the CKD-EPI equation are not accurate in patients with acute kidney failure, extremes of body mass or the acutely ill. http://Yellow Pages/OurHealthMatenkdep http://Yellow Pages/[facility] TULSAnkf eGFR 65 >=60 mL/min/1. 73 m?? [facility] Comment: The eGFR was calculated using the CKD-EPI equation. As with all creatinine based estimates of kidney function, eGFR values calculated with the CKD-EPI equation are not accurate in patients with acute kidney failure, extremes of body mass or the acutely ill. http://Yellow Pages/DHnkdep http://Yellow Pages/DHnkf Blood specimen (specimen) 06/02/2018 10:41 AM EDT 06/02/2018 10:48 AM EDT Narrative Resulting Agency Comment Spec In Lab Erna Castro MD CHEMISTRY ORDERABLES [facility] [place] [address] * (ABNORMAL) Hemogram (06/02/2018 10:41 AM EDT) White Blood Cell 14.7(H) 4.0 - 9.5 x10(3)/mc L [facility] Red Blood Cell 2.80(L) 4.00 - 5.21 x10(6)/mc L [facility] Hemoglobin 7.9(L) 11.7 - 15.5 gm/dL [facility] Comment: This result has been called to OSCAR SCHWAB RN by Toni Siu on 06 02 2018 at 1105, and has been read back. Hematocrit 23.9(L) 35.7 - 45.8 % [facility] Mean Cell Volume 85.4 82.6 - 94.4 fL [facility] Mean Cell Hemoglobin 28.2 27.1 - 32.0 pg [facility] Mean Cell Hemoglobin Concentration 33.1 31.7 - 35.0 gm/dL [facility] Platelet 304 145 - 357 x10(3)/mc L [facility] RDW Standard Deviation 63.2(H) 37.0 - 46.0 fL [facility] RDW coefficient of variation 21.2(H) 11.5 - 14.1 % [facility] Mean Platelet Volume 9.9 7.6 - 12.9 fL [facility] NRBC% auto 0.0 % [facility] NRBC Absolute 0.000 0.000 - 0.000 x10(3)/mc L [facility] Blood specimen (specimen) 06/02/2018 10:41 AM EDT 06/02/2018 10:48 AM EDT Narrative Resulting Agency Comment Spec In Lab Erna Castro MD HEMATOLOGY ORDERABLE S [facility] [place] [address] * POCT Glucose (06/02/2018 6:32 AM EDT) Glucose, POC 86 65 - 199 mg/dL [facility] Comment: Supplemental ranges: <140 mg/dL before meals <180 mg/dL all other times of the day Blood specimen (specimen) 06/02/2018 6:32 AM EDT 06/02/2018 6:32 AM EDT Erna Castro MD POINT OF CARE TEST O RDERABLES [facility] [place] [address] * POCT Glucose (06/01/2018 5:47 PM EDT) Glucose, POC 124 65 - 199 mg/dL [facility] Comment: Supplemental ranges: <140 mg/dL before meals <180 mg/dL all other times of the day Blood specimen (specimen) 06/01/2018 5:47 PM EDT 06/01/2018 5:47 PM EDT Erna Castro MD POINT OF CARE TEST O RDERABLES Performing Organization Address [facility]/ZIP Co de Phone Number [facility] [place] [address] * (ABNORMAL) Hemoglobin and Hematocrit, blood (06/01/2018 10:52 AM EDT) Hemoglobin 9.9(L) 11.7 - 15.5 gm/dL [facility] Hematocrit 30.1(L) 35.7 - 45.8 % [facility] Blood specimen (specimen) 06/01/2018 10:52 AM EDT 06/01/2018 10:58 AM EDT Narrative Resulting Agency Comment Spec In Lab Erna Castro MD HEMATOLOGY ORDERABLE S Performing Organization Address [facility] Co de Phone Number [facility] [place] [address] * POCT Glucose (06/01/2018 7:26 AM EDT) Glucose, POC 119 65 - 199 mg/dL [facility] Comment: Supplemental ranges: <140 mg/dL before meals <180 mg/dL all other times of the day Blood specimen (specimen) 06/01/2018 7:26 AM EDT 06/01/2018 7:26 AM EDT Erna Castro MD POINT OF CARE TEST O RDERABLES Performing Organization Address [facility] Co de Phone Number [facility] [place] [address] * POCT Glucose (05/31/2018 7:14 PM EDT) Glucose, POC 144 65 - 199 mg/dL [facility] Comment: Supplemental ranges: <140 mg/dL before meals <180 mg/dL all other times of the day Blood specimen (specimen) 05/31/2018 7:14 PM EDT 05/31/2018 7:14 PM EDT Erna Castro MD POINT OF CARE TEST O RDERABLES Performing Organization Address [facility] Co de Phone Number [facility] [place] [address] * POCT Glucose (05/31/2018 7:25 AM EDT) [facility] Glucose, POC 94 65 - 199 mg/dL [facility] Comment: Supplemental ranges: <140 mg/dL before meals <180 mg/dL all other times of the day Blood specimen (specimen) 05/31/2018 7:25 AM EDT 05/31/2018 7:25 AM EDT Lorie Fuller MD POINT OF CARE TEST O RDERAANDREW Performing Organization Address [facility] Co de Phone Number [facility] [place] [address] * Scan, Peripheral Blood (05/31/2018 3:22 AM EDT) [facility] Plat estimate Normal [facility] RBC Morphology Normal [facility] Blood specimen (specimen) 05/31/2018 3:22 AM EDT 05/31/2018 3:37 AM EDT Narrative Resulting Agency Comment Spec In Lab Ramila DOMINGUEZ HEMATOLOGY ORDERA BLES Performing Organization Address [facility] Co de Phone Number [facility] [place] [address] * (ABNORMAL) Differential, Automated (05/31/2018 3:22 AM EDT) [facility] Neutrophil % 55.2 % [facility] Neutrophil Absolute 7.57(H) 1.70 - 6.10 x10(3)/mc L [facility] Lymph % 28.7 % [facility] Lymphocytes Abs 3.9(H) 0.9 - 3.2 x10(3)/[facility] Monocyte % 11.0 % [facility] Monocyte Abs 1.5(H) 0.3 - 0.9 x10(3)/[facility] Eos % 3.7 % [facility] Eosinophils Abs 0.5(H) 0.0 - 0.4 x10(3)/[facility] Basophil % 0.7 % [facility] Baso Absolute 0.1 0.0 - 0.1 x10(3)/[facility] Immature Gran % 0.70 % [facility] Comment: Immature granulocytes(IG's)percentage and absolute count will include metamyelocytes, myelocytes, and promyelocytes. Blood smears from CBCs yielding IG's will be scanned manually for concordance. If this scan disagrees with the automated IG or if promyelocytes are noted, a manual differential will be performed. Immature Gran Absolute 0.10(H) 0.00 - 0.04 x10(3)/[facility] Blood specimen (specimen) 05/31/2018 3:22 AM EDT 05/31/2018 3:37 AM EDT Narrative Resulting Agency Comment Spec In Lab Ramila DOMINGUEZ HEMATOLOGY ORDERA BLES [facility] [place] [address] * (ABNORMAL) Hemogram (05/31/2018 3:22 AM EDT) White Blood Cell 13.7(H) 4.0 - 9.5 x10(3)/[facility] Red Blood Cell 3.05(L) 4.00 - 5.21 x10(6)/[facility] Hemoglobin 8.3(L) 11.7 - 15.5 gm/dL [facility] Hematocrit 26.1(L) 35.7 - 45.8 % [facility] Mean Cell Volume 85.6 82.6 - 94.4 fL [facility] Mean Cell Hemoglobin 27.2 27.1 - 32.0 pg [facility] Mean Cell Hemoglobin Concentration 31.8 31.7 - 35.0 gm/dL [facility] Platelet 267 145 - 357 x10(3)/mc L [facility] RDW Standard Deviation 63.8(H) 37.0 - 46.0 fL [facility] RDW coefficient of variation 20.9(H) 11.5 - 14.1 % [facility] Mean Platelet Volume 10.1 7.6 - 12.9 fL [facility] NRBC% auto 0.0 % [facility] NRBC Absolute 0.000 0.000 - 0.000 x10(3)/mc L [facility] Blood specimen (specimen) 05/31/2018 3:22 AM EDT 05/31/2018 3:37 AM EDT Narrative Resulting Agency Comment Spec In Lab Ramila DOMINGUEZ HEMATOLOGY ORDERA BLES Performing Organization Address City/[facility]/ZIP Co de Phone Number [facility] [place] [address] * POCT Glucose (05/30/2018 5:52 PM EDT) Glucose, POC 141 65 - 199 mg/dL [facility] Comment: Supplemental ranges: <140 mg/dL before meals <180 mg/dL all other times of the day Blood specimen (specimen) 05/30/2018 5:52 PM EDT 05/30/2018 5:52 PM EDT Lorie Fuller MD POINT OF CARE TEST O RDERABLES [facility] [place] [address] * POCT Glucose (05/30/2018 7:23 AM EDT) Glucose, POC 98 65 - 199 mg/dL [facility] Comment: Supplemental ranges: <140 mg/dL before meals <180 mg/dL all other times of the day Blood specimen (specimen) 05/30/2018 7:23 AM EDT 05/30/2018 7:23 AM EDT Lorie Fuller MD POINT OF CARE TEST O RDERABLES [facility] [place] [address] * XR Chest PA or AP 1 [...] Glucose, POC 117 65 - 199 mg/dL [facility] Comment: Supplemental ranges: <140 mg/dL before meals <180 mg/dL all other times of the day Blood specimen (specimen) 05/29/2018 6:27 PM EDT 05/29/2018 6:27 PM EDT Lorie Fuller MD POINT OF CARE TEST O CECILIA Performing Organization Address [facility] Co de Phone Number [facility] [place] [address] * POCT Glucose (05/29/2018 9:43 AM EDT) Glucose, POC 171 65 - 199 mg/dL [facility] Comment: Supplemental ranges: <140 mg/dL before meals <180 mg/dL all other times of the day Blood specimen (specimen) 05/29/2018 9:43 AM EDT 05/29/2018 9:43 AM EDT Lorie Fuller MD POINT OF CARE TEST O CECILIA Performing Organization Address City/[facility]/ZIP Co de Phone Number [facility] [place] [address] * (ABNORMAL) Differential, Automated (05/29/2018 4:22 AM EDT) Neutrophil % 85.3 % [facility] Neutrophil Absolute 13.67(H) 1.70 - 6.10 x10(3)/ L [facility] Lymph % 8.9 % [facility] Lymphocytes Abs 1.4 0.9 - 3.2 x10(3)/[facility] Monocyte % 5.0 % [facility] Monocyte Abs 0.8 0.3 - 0.9 x10(3)/[facility] Eos % 0.0 % [facility] Eosinophils Abs 0.0 0.0 - 0.4 x10(3)/[facility] Basophil % 0.1 % [facility] Baso Absolute 0.0 0.0 - 0.1 x10(3)/[facility] Immature Gran % 0.70 % [facility] Comment: Immature granulocytes(IG's)percentage and absolute count will include metamyelocytes, myelocytes, and promyelocytes. Blood smears from CBCs yielding IG's will be scanned manually for concordance. If this scan disagrees with the automated IG or if promyelocytes are noted, a manual differential will be performed. Immature Gran Absolute 0.12(H) 0.00 - 0.04 x10(3)/[facility] Blood specimen (specimen) 05/29/2018 4:22 AM EDT 05/29/2018 4:52 AM EDT Narrative Resulting Agency Comment Spec In Lab Cristian Rodriguez MD HEMATOLOGY O RDERABLES [facility] [place] [address] * (ABNORMAL) Hemogram (05/29/2018 4:22 AM EDT) White Blood Cell 16.0(H) 4.0 - 9.5 x10(3)/[facility] Red Blood Cell 3.29(L) 4.00 - 5.21 x10(6)/[facility] Hemoglobin 8.7(L) 11.7 - 15.5 gm/dL [facility] Hematocrit 28.2(L) 35.7 - 45.8 % [facility] Mean Cell Volume 85.7 82.6 - 94.4 fL [facility] Mean Cell Hemoglobin 26.4(L) 27.1 - 32.0 pg [facility] Mean Cell Hemoglobin Concentration 30.9(L) 31.7 - 35.0 gm/dL [facility] Platelet 291 145 - 357 x10(3)/mc L [facility] RDW Standard Deviation 62.7(H) 37.0 - 46.0 fL [facility] RDW coefficient of variation 20.0(H) 11.5 - 14.1 % [facility] Mean Platelet Volume 9.8 7.6 - 12.9 fL [facility] NRBC% auto 0.0 % [facility] NRBC Absolute 0.000 0.000 - 0.000 x10(3)/ L [facility] Blood specimen (specimen) 05/29/2018 4:22 AM EDT 05/29/2018 4:52 AM EDT Narrative Resulting Agency Comment Spec In Lab Cristian Rodriguez MD HEMATOLOGY O RDERABLES [facility] [place] [address] * (ABNORMAL) Prealbumin (05/29/2018 4:22 AM EDT) Prealbumin 17(L) 20 - 40 mg/dL [facility] Comment: Prealbumin levels are generally lower in the pediatric population; adult concentrations are usually attained near puberty. Blood specimen (specimen) 05/29/2018 4:22 AM EDT 05/29/2018 4:52 AM EDT Narrative Resulting Agency Comment Spec In Lab Erna Castro MD CHEMISTRY ORDERABLES [facility] [place] [address] * Phosphorus (05/29/2018 4:22 AM EDT) Pathologist [facility] Phosphorus 3.0 2.5 - 4.5 mg/dL [facility] Blood specimen (specimen) 05/29/2018 4:22 AM EDT 05/29/2018 4:52 AM EDT Narrative Resulting Agency Comment Spec In Lab Erna Castro MD CHEMISTRY ORDERABLES Performing Organization Address [facility]/ZIP Co de Phone Number [facility] [place] [address] * Magnesium (05/29/2018 4:22 AM EDT) [facility] Magnesium 0.70 0.69 - 1.07 mmol/L [facility] Blood specimen (specimen) 05/29/2018 4:22 AM EDT 05/29/2018 4:52 AM EDT Narrative Resulting Agency Comment Spec In Lab Erna Castro MD CHEMISTRY ORDERABLES Performing Organization Address [facility]/ZIP Co de Phone Number [facility] [place] [address] * (ABNORMAL) Basic Metabolic Panel (non-fasting) (05/29/2018 4:22 AM EDT) [facility] Glucose 159 65 - 199 mg/dL [facility] Comment:Diabetes: >=200 mg/d L plus symptoms Blood Urea Nitrogen 12 8 - 18 mg/dL [facility] Creatinine 0.92 0.70 - 1.20 mg/dL [facility] Sodium 142 135 - 145 mmol/L [facility] Potassium 4.2 3.5 - 5.0 mmol/L [facility] Comment: Please note: ??Patients with WBC >100,000 may have falsely elevated Potassium levels. ??For accurate Potassium quantification in these patients send serum separator tube ([facility] top) for subsequent determinations. ??Contact the Clinical Chemistry Laboratory if there are any questions. Chloride 100 98 - 107 mmol/L [facility] Carbon Dioxide 29 22 - 31 mmol/L [facility] Anion Gap 13 5 - 15 mmol/L [facility] Calcium 8.3(L) 8.5 - 10.5 mg/dL [facility] Est Glomerular Filtration Rate 68 >=60 mL/min/1. 73 m?? [facility] Comment: The eGFR was calculated using the CKD-EPI equation. As with all creatinine based estimates of kidney function, eGFR values calculated with the CKD-EPI equation are not accurate in patients with acute kidney failure, extremes of body mass or the acutely ill. http://Yellow Pages/OurHealthMatenkdep http://Yellow Pages/DHMCnkf eGFR 78 >=60 mL/min/1. 73 m?? [facility] Comment: The eGFR was calculated using the CKD-EPI equation. As with all creatinine based estimates of kidney function, eGFR values calculated with the CKD-EPI equation are not accurate in patients with acute kidney failure, extremes of body mass or the acutely ill. http://Yellow Pages/OurHealthMatenkdep http://Yellow Pages/DHMCnkf Blood specimen (specimen) 05/29/2018 4:22 AM EDT 05/29/2018 4:52 AM EDT Narrative Resulting Agency Comment Spec In Lab Erna Castro MD CHEMISTRY ORDERABLES [facility] [place] [address] * Anaerobic Culture (05/28/2018 1:56 PM EDT) Anaerobic Culture No anaerobic organisms isolated [facility] Joint specimen (specimen) LEFT ELBOW REGION STRUCTURE / Unknown 05/28/2018 1:56 PM EDT 05/28/2018 1:56 PM EDT Comment:THELMA PROSTHETIC TISS UE LEFT ELBOW Narrative Resulting Agency Comment Spec In Lab Lorie Fuller MD MICROBIOLOGY - GENER AL ORDERABLES Performing Organization Address [facility] Co de Phone Number [facility] [place] [address] * Joint Culture (05/28/2018 1:42 PM EDT) Joint Culture No growth at 14 days. [facility] Gram Stain Few White Blood Cells seen No microorganisms seen. [facility] Joint specimen (specimen) LEFT ELBOW REGION STRUCTURE / Unknown 05/28/2018 1:42 PM EDT 05/28/2018 1:42 PM EDT Comment:PERIPROSTHETIC TISSU E Narrative Resulting Agency Comment Spec In Lab Lorie Fuller MD MICROBIOLOGY - GENER AL ORDERABLES Performing Organization Address [facility] Co de Phone Number [facility] [place] [address] * Joint Culture (05/28/2018 1:30 PM EDT) Joint Culture No growth at 14 days. [facility] Gram Stain Few White Blood Cells seen No microorganisms seen. [facility] Joint specimen (specimen) LEFT ELBOW REGION STRUCTURE / Unknown 05/28/2018 1:30 PM EDT 05/28/2018 1:56 PM EDT Comment:THELMA PROSTHETIC TISS UE LEFT ELBOW Narrative Resulting Agency Comment Spec In Lab Lorie Fuller MD MICROBIOLOGY - GENER AL ORDERABLES Performing Organization Address City/[facility]/ZIP Co de Phone Number [facility] [place] [address] * Anaerobic Culture (05/28/2018 1:18 PM EDT) Anaerobic Culture No anaerobic organisms isolated [facility] Joint specimen (specimen) LEFT ELBOW REGION STRUCTURE / Unknown 05/28/2018 1:18 PM EDT 05/28/2018 1:42 PM EDT Comment:PERIPROSTHETIC TISSU E Narrative Resulting Agency Comment Spec In Lab Lorie Fuller MD MICROBIOLOGY - GENER AL ORDERABLES Performing Organization Address [facility]/ZIP Co de Phone Number [facility] [place] [address] * Cra Officer Culture Other (05/28/2018 1:18 PM EDT) Cra Officer Culture No growth [facility] Specimen of unknown material (specimen) 05/28/2018 1:18 PM EDT 05/28/2018 1:54 PM EDT Comment:SUTURE MATERIAL LEFT ELBOW Narrative Resulting Agency Comment Spec In Lab Lorie Fuller MD MICROBIOLOGY - GENER AL ORDERABLES Performing Organization Address [facility] Co de Phone Number [facility] [place] [address] * (ABNORMAL) Prothrombin Time (05/28/2018 10:58 AM EDT) Prothrombin Time 12.9(H) 9.4 - 12.5 sec [facility] International Normalization Ratio 1.2 [facility] Comment: An INR <2.0 indicates [...] Comment Spec In Lab Emmy Ayon Hussein FREIGHT ENGINEER HEMATOLOGY ORDERABLE S Performing Organization Address [facility] Co de Phone Number [facility] [place] [address] * SCAN DOC: ECG (05/28/2018 12:00 AM EDT) Narrative 05/28/2018 12:00 AM EDT Ordered by an unspecified provider. Scanning Provider MEDIA MGR SCAN EXT O RDR/RSLT documented in this encounter Visit Diagnoses Not on filedocumented in this encounter Administered Medications Inactive Administered Medications - up to 3 most recent administrations Medication Order MAR Action Action Date Dose Rate Site acetaminophen (TYLENOL) tablet 1,000 mg 1,000 mg, Oral, EVERY 6 HOURS SCHEDULED, First dose (after last modification) on Sat05/29/18 at 1800, Until Discontinued, Maximum total acetaminophen [...] Given 06/02/2018 9:22 PM EDT 120 mg gabapentin (NEURONTIN) capsule 900 mg 900 mg, Oral, 3 TIMES DAILY, First dose (after last modification) on Sat05/29/18 at 1500, Until Discontinued, Routine Given 06/03/2018 2:57 PM EDT 900 mg Given 06/03/2018 8:00 AM EDT 900 mg Given 06/02/2018 9:23 PM EDT 900 mg HYDROmorphone (DILAUDID) injection 0.4 mg 0.4 mg, Intravenous, EVERY 2 HOURS PRN, Starting on Sat05/29/18 at 1256, Until Sat06/03/18 at 1753, Pain, For breakthrough pain, Routine Lactobacillus acidoph-pectin 75 million cell -100 mg [...] Given 06/01/2018 5:05 AM EDT 125 mcg lidocaine-EPINEPHrine 1 %-1:200,000 injection ONCE PRN, Starting on Sat05/28/18 at 1607, Until Sat06/03/18 at 1753, Intra-Operative (Intra-Procedure), Routine Given 05/28/2018 4:07 PM EDT 10 mLs 19- Surgical Site methadone (DOLOPHINE) tablet 20 mg 20 mg, Oral, EVERY 8 HOURS SCHEDULED, First dose (after last modification) on [place] 05/29/18 at 1400, Until Discontinued, Routine Given 06/03/2018 2:57 PM EDT 20 mg Given 06/03/2018 5:58 AM EDT 20 mg Given 06/02/2018 9:22 PM EDT 20 mg mineral oil topical liquid ONCE PRN, Starting on Sat05/28/18 at 1432, Until Sat06/03/18 at 1753, Intra-Operative (Intra-Procedure), Routine Given 05/28/2018 2:32 PM EDT 10 mLs ondansetron (ZOFRAN) injection 4 mg 4 mg, [...] Given 06/02/2018 7:57 AM EDT 5 mLs sulfamethoxazole-trimethoprim (BACTRIM DS) 800-160 mg per tablet 1 tablet 1 tablet, Oral, EVERY 12 HOURS SCHEDULED (2 times per day), First dose on Sat05/31/18 at 1800, Until Discontinued, Routine, Indication for (Active or Suspected): Skin/Skin Structure Given 06/03/2018 8:01 AM EDT 1 tablet Given 06/02/2018 9:23 PM EDT 1 tablet Given 06/02/2018 7:56 AM EDT 1 tablet zolpidem (AMBIEN) tablet 5 mg 5 mg, Oral, NIGHTLY PRN, Starting on Sat05/29/18 at 1254, Until Sat06/03/18 at 1753, Sleep, Routine Given 05/31/2018 9:32 PM EDT 5 mg documented in this encounter Active and Recently Administered Medications Times are shown in EDT. Scheduled Medication Order 06/01/2018 06/02/2018 06/03/2018 acetaminophen (TYLENOL) tablet 1,000 mg 1,000 mg, Oral, EVERY 6 HOURS SCHEDULED, First dose (after last modification) on Sat05/29/18 at 1800, Until Discontinued, Maximum total acetaminophen dose 4 grams per 24 hours., Routine 0505 (Given - Provider: Yulissa Omalley RN)1156 (Given - Provider: Oscar Schwab RN)1801 (Given - Provider: Oscar Schwab RN) 0039 (Given - Provider: Rosetta Joiner RN)0539 (Given - Provider: Rosetta Joiner, [place])1251 (Given - Provider: Oscar Schwab RN)1756 (Given - Provider: Oscar Schwab RN)2359 (Given - Provider: Rosetta Joiner, [place]) 0558 (Given - Provider: Rosetta Joiner, [place])1232 (Given - Provider: Oscar Schwab RN) atorvastatin [...] Comment: already administered)2122 (Given - Provider: Rosetta Joiner RN) 0801 (Given - Provider: Oscar Schwab RN) enoxaparin (LOVENOX) injection 120 mg 120 mg, Subcutaneous, NIGHTLY, First dose (after last reorder) on Sat06/02/18 at 2100, Until Discontinued, Routine 2121 (Given - Provider: Rosetta Joiner RN) gabapentin (NEURONTIN) capsule 900 mg 900 mg, Oral, 3 TIMES DAILY, First dose (after last modification) on Sat05/29/18 at 1500, Until Discontinued, Routine 0837 (Given - Provider: Oscar Schwab RN)1436 (Given - Provider: Oscar Schwab RN)2120 (Given - Provider: Rosetta Joiner RN) 0755 (Given - Provider: Oscar Schwab RN)0900 (Canceled Entry - Provider: Oscar Schwab RN - Reason: See comment - Comment: already administered)1500 (Given - Provider: Oscar Schwab RN)212 (Given - Provider: Rosetta Joiner RN) 0800 (Given - Provider: Oscar Schwab RN)1457 [...] Omalley RN) 0539 (Given - Provider: Rosetta Joiner RN) 0558 (Given - Provider: Rosetta Joiner RN) methadone (DOLOPHINE) tablet 20 mg 20 mg, Oral, EVERY 8 HOURS SCHEDULED, First dose (after last modification) on Sat05/29/18 at 1400, Until Discontinued, Routine 0505 (Given - Provider: Yulissa Omalley RN)1436 (Given - Provider: Oscar Schwab RN)2121 (Given - Provider: Rosetta Joiner RN) 0539 (Given - Provider: Rosetta Joiner RN)1500 (Given - Provider: Oscar Schwab RN)2122 (Given - Provider: Rosetta Joiner RN) 0558 [...] RN)2120 (Given - Provider: Rosetta Joiner RN) 075 [...] Structure 0837 (Given - Provider: Oscar Schwab RN)2120 (Given - Provider: Rosteta Joiner RN) 075 (Given - Provider: Oscar Schwab RN)0900 (Canceled Entry - Provider: Oscar Schwab RN - Reason: See comment - Comment: already administered)2122 (Given - Provider: Rosetta Joiner RN) 0801 (Given - Provider: Oscar Schwab RN) PRN Medication Order 06/01/2018 06/02/2018 06/03/2018 [...] Routine 2120 (Given - Provider: Rosetta Joiner, RN) 2122 (Given - Provider: Rosetta Joiner, RN) 557 (Given - Provider: Rosetta Joiner, RN) HYDROmorphone [...] on Sat05/28/18 at 2004, Until Sat06/03/18 at 175, Nausea, May repeat times one in 30 [...] Schwab RN) 0407 (Given - Provider: Rosetta Joiner, [place])0755 (Given - Provider: Oscar Schwab RN)1251 (Given - Provider: Oscar Schwab RN)1756 (Given - Provider: Oscar Schwab RN)2219 (Given - Provider: Rosetta Joiner, [place]) 0355 (Given - Provider: Rosetta Joiner, [place])0757 (Given - Provider: Oscar Schwab RN)1231 (See [...] 0407 (See Alternative - Provider: Rosetta Joiner, [place])0755 (See Alternative - Provider: Oscar Schwab RN)1251 (See Alternative - Provider: Oscar Schwab RN)1756 (See Alternative - Provider: Oscar Schwab RN)2219 (See Alternative - Provider: Rosetta Joiner, [place]) 0355 (See Alternative - Provider: Rosetta Joiner, [place])0757 (See Alternative - Provider: Oscar Schwab RN)1231 [...] Routine documented in this encounter Care Teams Yarn Conditioner Relationship Specialty Start Date End Date Curt Cassidy MD [address] [facility], [facility] [address] [place] [address] PCP - General 10/10/10 documented as of this encounter
--- OUTSIDE RECORDS SUMMARY | 2024-10-30 01:35 | XMS_ITS | Encounter Summary ---
Author Organization [facility] Address [facility] [place] [address] Care Team Providers Care Waist Pleater Name Role Phone Curt Cassidy MD Primary Care Provider [phone] Reason for Referral * Diagnostic Test (Routine) - Closed Specialty Diagnoses / Procedures Referred By Contac t Referred To Contact Radiology Diagnoses Rheumatoid lung disease Procedures CT Chest wo Contrast (Generic) Zaki Galdamez MD [facility] [place] [address] [facility] [place] [address] Referral ID Status Reason Start Date Expiration Date V isits Requested Visits Authorized [id number] Closed Specialty Service Requested 06/25/2017 09/23/2017 1 1 Reason for Visit * Diagnostic Test (Routine) - Closed Specialty Diagnoses / Procedures Referred By Contac t Referred To Contact Radiology Diagnoses Rheumatoid lung disease Procedures CT Chest wo Contrast (Generic) Zaki Galdamez MD [facility] [place] [address] [facility] [place] [address] Referral ID Status Reason Start Date Expiration Date V isits Requested Visits Authorized [id number] Closed Specialty Service Requested 06/25/2017 09/23/2017 1 1 Encounter Details Date Type Department Care Team (Latest Contact Info) Description 07/08/2017 9:36 AM EDT - 07/08/2017 10:19 AM EDT [place] [address] Zaki Galdamez MD [facility] DR [place]ULMONARY [place] [address] Rheumatoid lung disease Discharge Disposition: Home Social [...] Sig Dispensed Refills Start Date End Date Carboxymethylcellulose Sodium 0.25 % [address] 1 [...] 11/05/2013 ergocalciferol (VITAMIN D) 50,000 unit capsule 08315 unit, PO, once a month 10/23/2010 budesonide-formoteroL (Symbicort) 160-4.5 mcg/actuation HFA Aerosol Inhaler SYMBICORT 160-4.5 MCG/ACT AERO 04/22/2017 11/05/2022 risedronate (ACTONEL) 35 mg Tablet Take 35 mg by mouth every 7 days. 05/01/2016 12/27/2023 doxycycline (VIBRAMYCIN) 100 mg CapsuleIndications:Rec urrent cellulitis [...] Name Priority Date/Time Associated Diagnosis Comments CT CHEST WO CONTRAST (GENERIC) Routine 07/08/2017 10:06 AM EDT Rheumatoid lung disease documented in this encounter Results * CT Chest wo Contrast (Generic) (07/08/2017 10:06 AM EDT) Anatomical Region Laterality Modality Chest Computed Tomogra phy Impressions 07/08/2017 11:12 AM EDT Impression: No significant degree of fibrosis or other sign of pulmonary involvement. Stable 7 mm RIGHT lower lobe nodule most consistent with benign intrapulmonary lymph node. No further CT follow-up necessary. Narrative 07/08/2017 11:12 AM EDT EXAMINATION: CT CHEST WO CONTRAST (GENERIC) CLINICAL HISTORY: f/up heumatoid lung and nodule TECHNIQUE: Helical CT of the chest was performed without contrast. Multiplanar reformatted images were reviewed. COMPARISON: 04/30/2016 and 04/05/2015 FINDINGS: Lungs and airways: There is a slightly better degree of aeration of the lungs overall but some residual platelike atelectasis in the lingula and lower lobes. There is no other interval change, specifically in the size and overall appearance of the 7 mm nodule in the RIGHT lower lobe (series 5 image 294). The lungs are otherwise clear. The airways are patent. There is no significant degree of air trapping on the expiration images. Pleura and pericardium: No effusions. Heart and vasculature: Heart size normal. Mediastinum and hilar structures: No lymphadenopathy. Small amount of residual thymic tissue, unchanged. Allowing for the lack of intravenous contrast, the portions of the abdominal organs included in the field of view are unremarkable. Osseous structure: No focal lytic or sclerotic osseous lesion. Procedure Note Rafael Mello MD - 07/08/2017 EXAMINATION: CT CHEST WO CONTRAST (GENERIC) CLINICAL HISTORY: f/up heumatoid lung and nodule TECHNIQUE: Helical CT of the chest was performed without contrast.Multiplanar reformatted images were reviewed. COMPARISON: 04/30/2016 and 04/05/2015 FINDINGS: Lungs and airways: There is a slightly better degree of aeration of thelungs overall but some residual platelike atelectasis in the lingula and lowerlobes. There is no other interval change, specifically in the size and overall appearance of the 7 mm nodule in the RIGHT lower lobe (series 5 [id number]). The lungs are otherwise clear. The airways are patent. There is nosignificant degree of air trapping on the expiration images. Pleura and pericardium: No effusions. Heart and vasculature: Heart size normal. Mediastinum and hilar structures: No lymphadenopathy. Small amount ofresidual thymic tissue, unchanged. Allowing for the lack of intravenous contrast, the portions of theabdominal organs included in the field of view are unremarkable. Osseous structure: No focal lytic or sclerotic osseous lesion. IMPRESSION Impression: No significant degree of fibrosis or other sign of pulmonaryinvolvement. Stable 7 mm RIGHT lower lobe nodule most consistent with benignintrapulmonary lymph node. No further CT follow-up necessary. Zaki Bui MD IMG CT ORDERABLES documented in this encounter Visit Diagnoses Diagnosis Rheumatoid lung disease Rheumatoid lung documented in this encounter Care Teams Waist Pleater Relationship Specialty Start Date End Date Curt Cassidy MD [address] [facility] [place] [address] PCP - General 10/10/10 documented as of this encounter
--- OUTSIDE RECORDS SUMMARY | 2024-10-30 01:35 | XMS_ITS | Encounter Summary ---
Author Organization [facility] Address [facility] [place] [address] Care Team Providers Care Moss Picker Name Role Phone Curt Cassidy MD Primary Care Provider [phone] Reason for Visit * Reason Onset Date Comments Medication Refill 11/29/2017 Encounter Details Date Type Department Care Team (Late st Contact Info) Description 11/29/2017 [place] [address] Rafael Sidhu MD [facility] [address] Recurrent cellulitis of lower leg Social History [...] foot documented in this encounter Care Teams Moss Picker Relationship Specialty Start Date End Date Curt Cassidy MD [address] [facility], [facility] [address] [place] [address] PCP - General 10/10/10 documented as of this encounter
--- OUTSIDE RECORDS SUMMARY | 2024-10-30 01:35 | XMS_ITS | Encounter Summary ---
Author Organization Formerly [facility] Address [facility] [place] [address] Care Team Providers Care Mainframe Architect Name Role Phone Curt Cassidy MD Primary Care Provider [phone] Reason for Referral * Diagnostic Test (Routine) - Closed Specialty Diagnoses / Procedures Referred By Contac t Referred To Contact Cardiology Diagnoses Chronic obstructive bronchitis Other dyspnea and respiratory abnormality Procedures Echocardiogram Transthoracic(Leb) Zaki Galdamez MD [facility] [place] [address] [facility] [place] [address] Referral ID Status Reason Start Date Expiration Date V isits Requested Visits Authorized [id number] Closed Specialty Service Requested 09/18/2017 12/17/2017 1 1 Reason for Visit * Diagnostic Test (Routine) - Closed Specialty Diagnoses / Procedures Referred By Contac t Referred To Contact Cardiology Diagnoses Chronic obstructive bronchitis Other dyspnea and respiratory abnormality Procedures Echocardiogram Transthoracic(Leb) Zaki Galdamez MD [facility] [place] [address] [facility] [place] [address] Referral ID Status Reason Start Date Expiration Date V isits Requested Visits Authorized [id number] Closed Specialty Service Requested 09/18/2017 12/17/2017 1 1 Encounter Details Date Type Department Care Team (Latest Contact Info) Description 10/14/2017 10:36 AM EST - 10/14/2017 12:13 PM EST Hospital Encounter Non-Invasive Cardiology Lab [facility] [place] [address] Zaki Galdamez MD [facility] [place] [address] Chronic obstructive bronchitis; Other dyspnea and respiratory abnormality Discharge Disposition: Home Social History Tobacco Use [...] 11/05/2013 ergocalciferol (VITAMIN D) 50,000 unit capsule 00871 unit, PO, once a month 10/23/2010 budesonide-formoteroL (Symbicort) 160-4.5 mcg/actuation HFA Aerosol Inhaler SYMBICORT 160-4.5 MCG/ACT AERO 04/22/2017 11/05/2022 risedronate (ACTONEL) 35 mg Tablet Take 35 mg by mouth every 7 days. 05/01/2016 12/27/2023 alendronate (FOSAMAX) 70 mg Tablet Take 1 tablet by mouth every 7 days. Take in AM with full glass of water, on an empty stomach. Do not lie down for 30 min. 12 tablet 3 09/23/2017 09/11/2019 acyclovir (ZOVIRAX) 800 mg Tablet TAKE ONE TABLET BY MOUTH ONCE DAILY 90 tablet 1 07/18/2017 01/21/2018 albuterol 90 mcg/actuation HFA Aerosol InhalerIndications:Chr onic obstructive bronchitis Inhale 2 puffs into the lungs every 4 hours as needed for Wheezing. Use with spacer 1 Inhaler 5 07/08/2017 11/05/2022 doxycycline (VIBRAMYCIN) 100 mg CapsuleIndications:Rec urrent cellulitis of lower leg TAKE ONE CAPSULE BY MOUTH ONCE DAILY 90 capsule 3 05/22/2017 11/29/2017 polyethylene glycoL (Miralax) 17 gram Powder in [...] Procedure Name Priority Date/Time Associated Diagnosis Comments ECHO COMPLETE Routine 10/14/2017 12:21 PM EST Chronic obstructive bronchitis Other dyspnea and respiratory abnormality documented in this encounter Results * ECHO COMPLETE (10/14/2017 12:21 PM EST) EF 65 HEARTLAB SYSTEM Anatomical Region Laterality Modality Other 10/14/2017 Narrative 10/14/2017 1:13 PM EST Procedure: ?Transthoracic Echocardiogram Patient: ?MARY ELLEN Dvais ? (Age): 1955(62y) Med Rec#: ? [id number] ?Sex: ?F ? Site Loc: ? [facility] ?Ht / Wt: ??149(cm)/75(kg) Pt. Loc: ?Echo Lab ?BSA: ?1.69 Study Date: ?? 10/14/2017 ?Pt. Type: Outpatient Tape: ? Referring: Zaki Galdamez Referring: NELLY Reading: David Allison ([id number]) Board Mixer Tender: Lucy Chester In Class Special Education Teacher: Madison Rich Diagnosis: *ICD-10-PCS Chronic obstructive pulmonary disease, unspecified (J44.9) *ICD-10-PCS Other forms of dyspnea (R06.09) *Unable to obtain an IV for imaging enhancing at this time. BP: ? 154/71 SUMMARY: 1. There is normal global left ventricular systolic function. ??Ejection fraction is estimated to be 65%. 2. The right ventricle is normal in size. ??Right ventricular global systolic function is normal. 3. Unable to estimate the PASP due to an inadequate jet of TR; however, there are no secondary signs of significantly elevated pulmonary presssures (normal RV size/function, no septal flattening, etc). ?? 4. No significant valve abnormalities. 5. Other details as noted below. Findings ? : Study Quality: ? Technically limited Left Ventricle: ? Left ventricular wall thickness is normal. ?There is no evidence of LVOT obstruction. ?No ventricular septal defect is visualized. ?There is normal global left ventricular systolic function. ??Ejection fraction is estimated to be 65%. Left Atrium: ? The left atrium is normal in size. Right Ventricle: ? The right ventricle is normal in size. ?Right ventricular global systolic function is normal. ?The estimated pulmonary artery systolic pressure is 22 mmHg. ?The estimated right atrial pressure is 3 mmHg. Right Atrium: ? The right atrium appears normal. Aortic Valve: ? The aortic valve is tricuspid. ?The aortic valve leaflets are mildly thickened. ?Systolic excursion of the aortic valve is normal. ?There is no evidence of aortic valve stenosis. ?There is no evidence of aortic regurgitation. Mitral Valve: ? The mitral valve leaflets are mildly thickened. ?There is no evidence of mitral stenosis. ?There is trace mitral regurgitation present. Tricuspid Valve: ? The tricuspid valve is probably normal. ?There is no tricuspid valve stenosis. ?There is trace tricuspid regurgitation present. Pulmonic Valve: ? The pulmonic valve appears normal in structure and function. Pericardium: ? There is no pericardial effusion. Aorta: ? The aortic root is normal in size. ?The ascending aorta is normal in size. Pulmonary Artery: ? The main pulmonary artery appears normal. Venous: ? The inferior vena cava appears normal in size. ?There is a greater than 50% respiratory change in the inferior vena cava dimension. Misc: ? Two-dimensional echo, spectral Doppler and color Doppler performed. Chambers 2D ?Value ?Units (Range) ? IVSd (2D) ? 0.9 ?cm ? LVPWd (2D) ?0.8 ?cm ? IVS:LVPW ratio (2D) 1.1 ?ratio ? RWT (2D) ?0.5 ?ratio ? RWT PW (2D) ? 0.5 ?ratio ? LVIDd (2D) ?3.2 ?cm ? LVIDs (2D) ?2.2 ?cm ? LVIDd (2D) index ?1.9 ?cm/m2 ? LVIDs (2D) index ?1.3 ?cm/m2 ? LV FS (2D) ?33 ? % ? EF Teichholz (2D) ?? 63 ? % ? Ao root diameter (2D2.8 ?cm (2.1 - 3.6) ? Ascending Ao ?2.7 ?cm (2 - 3.5) ? Volumes/Mass ?Value ?Units (Range) ? LA Area 4 CH ?16.4 ? cm2 (<21) ? LA ESV BP (A/L) inde26.7 ? ml/m2 ? RA AREA 4CH ? 11.9 ? cm2 ? LV mass (2D) ?75.1 ? g ? LV mass (2D) index ??44.4 ? g/m2 ? Diastolic/Systolic Function ?Value ?Units (Range) ? MV E-wave Vmax ?1.1 ?m/sec ? MV deceleration drja354.6 ?msec ? MV A-wave Vmax ?0.9 ?m/sec ? MV E:A ratio ?1.2 ?ratio ? LV septal e' Vmax ?? 0.1 ?m/sec ? LV lateral e' Vmax ??0.1 ?m/sec ? LV average e' Vmax ??0.1 ?m/sec ? LV E:e' septal ratio10 ? ratio ? LV E:e' lateral rati11 ? ratio ? LV average E:e' rati10 ? ratio ? Tricuspid Valve ?Value ?Units (Range) ? TR Vmax ? 2.2 ?m/sec ? TR peak gradient ?18.8 ? mmHg ? RAP ? 3 ?mmHg ? RVSP ?22 ? mmHg ? Wall Motion: Segment Name ?Rest ? Base-Anteroseptal ?? Normal ? Base-Anterior ? Normal ? Base-Anterolateral ??Normal ? Base-Posterolateral Normal ? Base-Inferior ? Normal ? Base-Inferoseptal ?? Normal ? Mid-Anteroseptal ?Normal ? Mid-Anterior ?Normal ? Mid-Anterolateral ?? Normal ? Mid-Posterolateral ??Normal ? Mid-Inferior ?Normal ? Mid-Inferoseptal ?Normal ? [place]-Septal ? Normal ? [place]-Anterior ? Normal ? [place]-Lateral ?Normal ? [place]-Inferior ? Normal ? [place]-Tip ?Normal ? This report has been electronically signed by: David Allison MD ? 10/14/2017 13:12:52 Images reviewed and interpretation verified [facility] Cardiac Ultrasound Laboratory Procedure Note David Allison MD - 10/14/2017 Procedure: Transthoracic Echocardiogram Patient: MARY ELLEN Davis DOB(Age): 1955(62y) Med Rec#: [id number] Sex: F Site Loc: [facility] Ht / Wt: 149(cm)/75(kg) Pt. Loc: Echo Lab BSA: 1.69 Study Date: 10/14/2017 Pt. Type: Outpatient Tape: Referring: Zaki Galdamez Referring: NELLY Reading: David Allison ([id number]) Board Mixer Tender: Lucy Chester In Class Special Education Teacher: Madison Rich Diagnosis: *ICD-10-PCS Chronic obstructive pulmonary disease, unspecified (J44.9) *ICD-10-PCS Other forms of dyspnea (R06.09) *Unable to obtain an IV for imaging enhancing at this time. BP: 154/71 SUMMARY: 1. There is normal global left ventricular systolic function. Ejection fraction is estimated to be 65%. 2. The right ventricle is normal in size. Right ventricular global systolic function is normal. 3. Unable to estimate the PASP due to an inadequate jet of TR; however, there are no secondary signs of significantly elevated pulmonary presssures (normal RV size/function, no septal flattening, etc). 4. No significant valve abnormalities. 5. Other details as noted below. Findings : Study Quality: Technically limited Left Ventricle: Left ventricular wall thickness is normal. There is no evidence of LVOT obstruction. No ventricular septal defect is visualized. There is normal global left ventricular systolic function. Ejection fraction is estimated to be 65%. Left Atrium: The left atrium is normal in size. Right Ventricle: The right ventricle is normal in size. Right ventricular global systolic function is normal. The estimated pulmonary artery systolic pressure is 22 mmHg. The estimated right atrial pressure is 3 mmHg. Right Atrium: The right atrium appears normal. Aortic Valve: The aortic valve is tricuspid. The aortic valve leaflets are mildly thickened. Systolic excursion of the aortic valve is normal. There is no evidence of aortic valve stenosis. There is no evidence of aortic regurgitation. Mitral Valve: The mitral valve leaflets are mildly thickened. There is no evidence of mitral stenosis. There is trace mitral regurgitation present. Tricuspid Valve: The tricuspid valve is probably normal. There is no tricuspid valve stenosis. There is trace tricuspid regurgitation present. Pulmonic Valve: The pulmonic valve appears normal in structure and function. Pericardium: There is no pericardial effusion. Aorta: The aortic root is normal in size. The ascending aorta is normal in size. Pulmonary Artery: The main pulmonary artery appears normal. Venous: The inferior vena cava appears normal in size. There is a greater than 50% respiratory change in the inferior vena cava dimension. Misc: Two-dimensional echo, spectral Doppler and color Doppler performed. Chambers 2D Value Units (Range) IVSd (2D) 0.9 cm LVPWd (2D) 0.8 cm IVS:LVPW ratio (2D) 1.1 ratio RWT (2D) 0.5 ratio RWT PW (2D) 0.5 ratio LVIDd (2D) 3.2 cm LVIDs (2D) 2.2 cm LVIDd (2D) index 1.9 cm/m2 LVIDs (2D) index 1.3 cm/m2 LV FS (2D) 33 % EF Teichholz (2D) 63 % Ao root diameter (2D2.8 cm (2.1 - 3.6) Ascending Ao 2.7 cm (2 - 3.5) Volumes/Mass Value Units (Range) LA Area 4 CH 16.4 cm2 (<21) LA ESV BP (A/L) inde26.7 ml/m2 RA AREA 4CH 11.9 cm2 LV mass (2D) 75.1 g LV mass (2D) index 44.4 g/m2 Diastolic/Systolic Function Value Units (Range) MV E-wave Vmax 1.1 m/sec MV deceleration hhik846.6 msec MV A-wave Vmax 0.9 m/sec MV E:A ratio 1.2 ratio LV septal e' Vmax 0.1 m/sec LV lateral e' Vmax 0.1 m/sec LV average e' Vmax 0.1 m/sec LV E:e' septal ratio10 ratio LV E:e' lateral rati11 ratio LV average E:e' rati10 ratio Tricuspid Valve Value Units (Range) TR Vmax 2.2 m/sec TR peak gradient 18.8 mmHg RAP 3 mmHg RVSP 22 mmHg Wall Motion: Segment Name Rest Base-Anteroseptal Normal Base-Anterior Normal Base-Anterolateral Normal Base-Posterolateral Normal Base-Inferior Normal Base-Inferoseptal Normal Mid-Anteroseptal Normal Mid-Anterior Normal Mid-Anterolateral Normal Mid-Posterolateral Normal Mid-Inferior Normal Mid-Inferoseptal Normal [place]-Septal Normal [place]-Anterior Normal [place]-Lateral Normal [place]-Inferior Normal [place]-Tip Normal This report has been electronically signed by: David Allison MD 10/14/2017 13:12:52 Images reviewed and interpretation verified [facility] Cardiac Ultrasound Laboratory Zaki Bui MD ECHO ORDERABLES documented in this encounter Visit Diagnoses Diagnosis Chronic obstructive bronchitis Obstructive chronic bronchitis without exacerbation Other dyspnea and respiratory abnormality documented in this encounter Care Teams Mainframe Architect Relationship Specialty Start Date End Date Curt Cassidy MD [address] [facility], [facility] [address] [place] [address] PCP - General 10/10/10 documented as of this encounter
--- OUTSIDE RECORDS SUMMARY | 2024-10-30 01:35 | XMS_ITS | Encounter Summary ---
Author Organization [facility] [place] [address] Care Team Providers Care Administration Internship Name Role Phone Curt Cassidy MD Primary Care Provider [phone] Encounter Details Date Type Department Care Team (Late st Contact Info) Description 05/20/2018 Telephone [place] [phone] Nan Weber RN Social History Tobacco Use Types Packs/Day [...] encounter Miscellaneous Notes * Telephone Encounter - Nan Weber RN - 05/22/2018 8:42 AM EDT Returned call to AIRCRAFT SERVICER Cynthia Muller, instructed per Dr. Fuller that patient should remain on the IV antibiotics up until surgery and thereafter without any break. Cynthia verbalized understanding. * Telephone Encounter - Nan Weber RN - 05/20/2018 10:13 AM EDT Subjective: Call from Cynthia Muller AIRCRAFT SERVICER for Dr. Mcgill Patient is scheduled for surgery with Dr. Fuller on 05/28/18. I am inquiring if Dr. Fuller would like me to hold patient's IV antibiotics 5 days prior to surgery. Patient is receiving 1 gram of Ertapenem every 24 hours. Lewis questions/Assessment: 05/28/18-ARTHROTOMY, ELBOW, EXPLORATION, DRAINAGE, OR REMOVAL FB Cynthia is requesting a call from Dr. Fuller to discuss and possibly refer patient to ID as Cynthia feels thecurrent antibiotic may not be effective. Cynthia states patient is allergic to Vancomycin and would like ID to consult. Plan: Instructed Cynthia that would get her message to Dr. Fuller, he was in the OR today, tomorrow is a holiday and he is in clinic so he may not get back to her until . Cynthia verbalized understanding and agreed with this plan. Cynthia can be reached on her cell phone - [phone] or her office at [phone] documented in this encounter Plan of Treatment Not on file documented as of this encounter Visit Diagnoses Not on filedocumented in this encounter Care Teams Administration Internship Relationship Specialty Start Date End Date Curt Cassidy MD [address], [facility] [address] [place] [address] PCP - General 10/10/10 documented as of this encounter
--- OUTSIDE RECORDS SUMMARY | 2024-10-30 01:35 | XMS_ITS | Encounter Summary ---
Author Organization [facility] Address [facility] [place] [address] Care Team Providers Care Railroad Operating Engineer Name Role Phone Curt Cassidy MD Primary Care Provider [phone] Reason for Visit * Reason Comments Medication Refill Encounter Details Date Type Department Care Team (Late st Contact Info) Description 01/19/2017 [place] [address] Rafael Sidhu MD [facility] [place] [place] [address] Rheumatoid arthritis Social History Tobacco Use Types Packs/Day [...] of this encounter Visit Diagnoses Diagnosis Rheumatoid arthritis documented in this encounter Care Teams Railroad Operating Engineer Relationship Specialty Start Date End Date Curt Cassidy MD [address] [facility] [address] [place] [address] PCP - General 10/10/10 documented as of this encounter
--- OUTSIDE RECORDS SUMMARY | 2024-10-30 01:35 | XMS_ITS | Encounter Summary ---
Author Organization [facility] Address [facility] [place] [id number] Care Team Providers Care Airport Baggage Screener Name Role Phone Curt Cassidy MD Primary Care Provider [phone] Reason for Referral * Consultation (Routine) - Closed Specialty Diagnoses / Procedures Referred By Contac t Referred To Contact Orthopaedics Diagnoses Chronic pain in right shoulder Chronic pain in left shoulder Rafael Sidhu MD [facility] [place] [place] [address] Lorie Fuller MD [facility] [place] [address] Referral ID Status Reason Start Date Expiration Date V isits Requested Visits Authorized [id number] Closed Consult, Test & Treat 10/14/2017 10/14/2018 5 5 Encounter Details Date Type Department Care Team (Late st Contact Info) Description 10/14/2017 12:00 PM EST Office [place] [address] Rafael Sidhu MD [facility] [address] [place] [id number] Rheumatoid arthritis, involving unspecified site, unspecified rheumatoid factor presence; Plantar fasciitis; Coccygeal pain; Chronic pain in right shoulder; Chronic pain in left shoulder Social History Tobacco Use Types Packs/Day Years [...] Sign Reading Time Taken Comments Blood Pressure 143/65 10/14/2017 12:15 PM EST Pulse 93 10/14/2017 12:15 PM EST Temperature 36.7 ??C (98.1 ??F) 10/14/2017 12:[address] Respiratory Rate - - Oxygen Saturation 100% 10/14/2017 12:15 PM EST Inhaled Oxygen Concentration - - Weight 76.2 kg (168 lb) 10/14/2017 12:15 PM EST Height 148.6 cm (4' 10.5) 10/14/2017 12:[address] Body Mass Index 34.51 10/14/2017 12:15 PM EST documented in this encounter Patient Instructions * Patient Instructions* Rafael Sidhu MD - 10/14/2017 12:00 PM EST 1. Labs through Dr. Cassidy 2. F/u with Dr. Galdamez re breathing 3. Refer Dr. Fuller about surgical options for her shoulder pain 4. 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 Typically getting labs through Dr. Cassidy at [place]. Her more recent treatments (last 5 years) [...] Interval History: She comes in today in 3 month f/u. Seeing Dr. Galdamez today. Had echocardiogram. When last seen, her lung issues seemed stable and her chronic joint pain and symptoms were unchanged with reduction in her methadone from 80 mg/d to 60 mg/d. Her issues were plantar fasciitis, hand pain and sacro-coccygeal in location, but not with weight bearing or standing, so it seemed unlikely to be due to a sacral fracture. Dyspnea Today, she reports the following. 1. RA: Hands feel like they are in a 'vise' Aching in arms, feels like things are being 'squeezee She is currently on Leflunomide and Prednisone 5 mg/d with reduced pain and stiffness in hands and feet with higher dose. 2. Left elbow pain: seen in orthopedics will be scheduled by CT-guided injection with ishan, now having bilateral paini 3. Reporting some dysesthesias. 4. Worse shoulder pain and range of motion on left. Very concerned 5. Admits to chronic sleep issues. Admits to lessening of chronic coccygeal pain with change in position, arising from chair Still taking doxycycline for Staph prophylaxis. No infections. Review of Systems Constitutional: No fevers, chills, malaise. Skin: no rashes HEENT: no sicca sx, change in hearing, taste sinus pain, ZHAGN, change in taste. Respiratory: Left sided chest pain respirophasic when takes really big breath, negative CT chest CV: no ABDULLAHI, angina sx, claudication Back: No sciatica, pain with standing GI: no abd pain, normal bowel movements : no dysuria, normal voiding, no nocturia Neuro: no acute issues Problem List: 1. RF+ (CIS result) rheumatoid arthritis, erosive/destructive. 1. Failed multiple TNF antagoniits (Enbrel, Remicade Orencia, Kineret). 2. Rituxan - last infusion December 2011, [...] - LE 17. Followed by ID - Saraiclens wash weekly, in 2009. Much less at f/u in .10. Left 5th big toe infection, not clearly osteomyelitic vs cellulitis with RA. 4. DXA ([place] 2004: -1.3 SD low at spine; 1 [...] white female not Cushingoid She is in pain and walks slowly with a cane due to knee ankle and foot pain Blood pressure 143/65, pulse 93, temperature 36.7 ??C (98.1 ??F), temperature source Oral, height (!) 148.6 cm (4' 10.5), weight 76.2 kg (168 lb), SpO2 100 %. Neck: little or no motion Joint exam Diffuse trigger points including sternochondral, delts, forearms, epicondyles, quads andgastrocs Shoulders: decreased abduction left shoulder, right not tested due to pain. Elbows: no longer had tenderness of entire dorsal compartment of bilateral forearm up to the lateral epicondyle. The elbow moves much better. Left now has a 30 degree flexion contracture, much worse than 4 months ago. Wrists unimpressive for synovitis, but motion poor Bilateral CMC tenderness. Hands: SJC/TJC: 6/6 in hands alone, modest synovitis.. Progressive volar and ulnar deviation of MCP. Her left TKR is well healed and there is diffuse swelling to the dorsum of the foot. Ankles: tender without warmth. Feet: MTP joints splaying and very tender. Impression: Persistent active RA who has failed every agent but with numerous comorbitidies maintained on prednisone/Arava that does not seem to be working particularly well. Complicated by myofascial pain, dyspnea, severe shoulder pain Not sure there are many medical options. She is receptive to addressing her chronic shoulder pain given worsening loss of motion in left shoulder. Plan: 1. Labs through Dr. Cassidy 2. Refer Dr. Fuller about shoulders to improve pain control and improve function. 3. Dyspnea work up through Dr. Galdamez 4. Return every 6 months Level 5 F/u visit Rafael Sidhu M.D. Staff Electronics Worker documented in this encounter Plan of Treatment Scheduled Referrals Name Type Priority Associated Diagnoses Order Schedule Referral to Orthopaedics Outpatient Referral Routine Chronic pain in right shoulder Chronic pain in left shoulder Ordered: 10/14/2017 documented as of this encounter Visit Diagnoses Diagnosis Rheumatoid arthritis, involving unspecified site, unspecified rheumatoid factor presence Plantar fasciitis Plantar fascial fibromatosis Coccygeal pain Other disorder of coccyx Chronic pain in right shoulder Pain in joint, shoulder region Chronic pain in left shoulder Pain in joint, shoulder region documented in this encounter Care Teams Airport Baggage Screener Relationship Specialty Start Date End Date Curt Cassidy MD [address] [facility], [address] [address] PCP - General 10/10/10 documented as of this encounter
--- OUTSIDE RECORDS SUMMARY | 2024-10-30 01:35 | XMS_ITS | Encounter Summary ---
Author Organization [facility] Address [facility] [address] [place] [place] [address] Care Team Providers Care International Account Manager Name Role Phone Curt Cassidy MD Primary Care Provider [phone] Reason for Visit * Reason Comments Medication Refill Encounter Details Date Type Department Care Team (Late st Contact Info) Description 05/21/2017 Refill [place] [address] Rafael Sidhu MD [facility] [place] [address] Recurrent cellulitis of lower leg Social History [...] foot documented in this encounter Care Teams International Account Manager Relationship Specialty Start Date End Date Curt Cassidy MD [address] [facility], [address] [address] PCP - General 10/10/10 documented as of this encounter
--- OUTSIDE RECORDS SUMMARY | 2024-10-30 01:35 | XMS_ITS | Encounter Summary ---
Author Organization [facility] [place] [address] Care Team Providers Care Screen Printing Machine Operator Name Role Phone Curt Cassidy MD Primary Care Provider [phone] Reason for Visit * Reason Onset Date Comments Medication Refill 10/14/2017 Encounter Details Date Type Department Care Team (Late st Contact Info) Description 10/14/2017 [place] [address] Matilda Bush MA Social History Tobacco Use Types Packs/Day Years [...] on filedocumented in this encounter Care Teams Screen Printing Machine Operator Relationship Specialty Start Date End Date Curt Cassidy MD [address] [facility] [address] [place] [address] PCP - General 10/10/10 documented as of this encounter
--- OUTSIDE RECORDS SUMMARY | 2024-10-30 01:35 | XMS_ITS | Encounter Summary ---
Author Organization [facility] Address [facility] [place] [address] Care Team Providers Care Medical Massage Therapist Name Role Phone Curt Cassidy MD Primary Care Provider [phone] Reason for Visit * Reason Comments Medication Refill Encounter Details Date Type Department Care Team (Late st Contact Info) Description 09/15/2016 [place] [address] Rafael Sidhu MD [facility] [place] [place] [place] [address] Social History Tobacco Use Types Packs/Day Years [...] on filedocumented in this encounter Care Teams Medical Massage Therapist Relationship Specialty Start Date End Date Curt Cassidy MD [address] [facility], [facility] [address] [place] [address] PCP - General 10/10/10 documented as of this encounter
--- OUTSIDE RECORDS SUMMARY | 2024-10-30 01:35 | XMS_ITS | Encounter Summary ---
Author Organization [facility] Address [facility] [place] [address] Care Team Providers Care Specialist Wound Care Name Role Phone Curt Cassidy MD Primary Care Provider [phone] Reason for Referral * Consultation (Urgent) - Closed Specialty Diagnoses / Procedures Referred By Contac t Referred To Contact Neurology Diagnoses Elbow wound, left, Radha Crowley APRN [facility] [place] [address] [facility] Neurology [address] [place] [phone] Referral ID Status Reason Start Date Expiration Date V isits Requested Visits Authorized [id number] Closed Consult, Test & Treat 05/15/2018 05/15/2019 1 1 Reason for Visit * Reason Comments Left Elbow Pain wound * Consultation (Urgent) - Closed Specialty Diagnoses / Procedures Referred By Contac t Referred To Contact Orthopaedics Diagnoses Elbow wound, left, initial encounter Elbow wound, left Rupert Masters MD [facility] [place] [address] Lorie Fuller MD [facility] [place] [address] Referral ID Status Reason Start Date Expiration Date V isits Requested Visits Authorized [id number] Closed Consult, Test & Treat 04/28/2018 04/28/2019 1 1 Encounter Details Date Type Department Care Team (Late st Contact Info) Description 05/15/2018 1:20 PM EDT [place] [address] Lorie Fuller MD [facility] [place] [address] Elbow wound, left, sequela (Primary Dx); Elbow wound, left, initial encounter; Elbow joint replacement status, left Dr. Mcgill [...] - Inhaled Oxygen Concentration - - Weight 80.7 kg (178 lb) 05/15/2018 12:59 PM EDT staed Height 151.1 cm (4' 11.5) 05/15/2018 12:59 PM E DT stqaed Body Mass Index 35.35 05/15/2018 12:59 PM EDT documented in this encounter Progress Notes * Radha Mckeon, TILE INSTALLER - 05/15/2018 1:20 PM EDT Images from the original note were not included. Subjective: Chief Complaint: Left elbow total elbow arthroplasty with post op wound dehiscence. Pertinent LEFT elbow surgery: Left elbow total elbow replacement Dr. Mcgill 01/23/2018. [facility] With post op Left elbow hematoma evacuation LEFT elbow I and D X2 with wound vac. HPI: Marla Denton is a 62 y.o. female with Sjogren's syndrome and seronegative rheumatoid arthritiswho is referred by Dr. Masters for evaluation and treatment of a left elbow wound dehiscence following LEFT elbow replacement surgery in January 2018. She has had multiple surgeries to address her wound and infection. She was recently evaluated by Dr. Masters at [facility] who has recommended wound closure with skin flap procedure with recommended repeated I and D with Dr. Fuller. She is currently receiving IVantibiotics via a PICC line in the right upper extremity and tolerating well. Wound care performed with Aquacel [employer] as directed by her medical provider closer to home. ROM is not limiting yet painful including a painful click. Marla also reports numbness and motor weakness of the right 5th finger that is new since her elbow replacement surgery. No night sweats, fevers or chills. No systemic or constitutional complaints. She is quite frustrated about her post op course and anxious to proceed with the next step in her treatment. Outside reports reviewed: historical medical records, operative reports and radiology reports. Past Medical History: Diagnosis Date ??? Allergic state ??? Arthritis ??? Elbow wound, left, initial encounter 04/28/2018 ??? Hypertension ??? Sjogren's syndrome ??? Thyroid disease Patient Active Problem List Diagnosis Date Noted ??? Elbow wound, left, initial encounter 04/28/2018 ??? Chronic obstructive bronchitis 08/08/2016 ??? Rheumatoid lung disease 08/08/2016 ??? Tendonitis, Achilles, left 06/28/2016 ??? Lung nodule seen on imaging study 01/15/2016 ??? Pleural effusion 01/15/2016 ??? Sjogrens syndrome 05/04/2015 ??? Keratitis 05/04/2015 ??? Corneal neovascularization 05/04/2015 ??? Bilateral hand pain with deformities from RA. 03/30/2015 ??? Chronic pain 11/05/2013 ??? Total knee replacement status, left 11/05/2013 ??? Left TKA 16 11/02/2013 ??? Lateral epicondylitis of elbow 10/30/2013 ??? Orthopnea 10/30/2013 ??? Unspecified essential hypertension 10/30/2013 ??? Unspecified hypothyroidism 10/30/2013 ??? Rheumatoid arthritis(714.0) 10/30/2013 ??? Pain in joint, shoulder region 10/30/2013 ??? Osteoporosis, unspecified 10/30/2013 ??? Unspecified vitamin D deficiency 10/30/2013 ??? Other pulmonary embolism and infarction 10/30/2013 ??? Other dyspnea and respiratory abnormality 10/30/2013 ??? Abnormal weight gain 10/30/2013 ??? Cervicalgia 10/30/2013 ??? Pain in limb 10/30/2013 ??? nursing home (current) use of anticoagulants 10/30/2013 ??? Encounter for long-term (current) use of other medications 10/22/2013 ??? DJD (degenerative joint disease) of knee 09/16/2013 ??? Internal derangement of knee 09/16/2013 ??? RA (rheumatoid arthritis) 05/31/2011 ??? Edema leg 02/01/2011 ??? Cellulitis of leg, right 02/01/2011 ??? Popliteal cyst 02/01/2011 ??? MRSA (methicillin resistant Staphylococcus aureus) infection 02/01/2011 ??? Seronegative rheumatoid arthritis Past Surgical History: Procedure Laterality Date ??? CERVICAL FUSION ??? HAND TENDON SURGERY ??? HYSTERECTOMY, TOTAL ABDOMINAL ??? PRO TOTAL KNEE ARTHROPLASTY 11/02/2013 @TOTAL KNEE ARTHROPLASTY performed by Mayco Montanez Jr., MD at [facility] OR ??? SHOULDER SURGERY ??? TOTAL ELBOW ARTHROPLASTY Left 01/2018 Family History Problem Relation Age of Onset [...] Social History Social History ??? Marital status: Legal Separation Spouse name: N/A ??? Number of children: N/A ??? Years of education: N/A Social History Main Topics ??? Smoking status: Never Smoker ??? Smokeless tobacco: Never Used ??? Alcohol use No ??? Drug use: No ??? Sexual activity: No Other Topics Concern ??? None Social History Narrative Current Outpatient Prescriptions Medication Sig Dispense Refill ??? ascorbate calcium (VITAMIN C ORAL) Take by mouth. ??? Lactobacillus acidophilus (PROBIOTIC ORAL) Take by mouth. ??? linezolid in dextrose 5% (ZYVOX) 600 mg/300 mL Parenteral Solution Inject 600 mg into the vein every 12 hours. ??? docusate sodium (COLACE) 100 mg Capsule [...] ??? ergocalciferol (VITAMIN D) 50,000 unit capsule 48695 unit, PO, once a month (Patient taking differently: 50,000 units PO twice a week) ??? risedronate sodium (ACTONEL ORAL) Take by mouth. ??? multivitamin (THERAGRAN) Tablet Take 1 tablet by mouth daily. ??? albuterol 90 mcg/actuation HFA Aerosol Inhaler Inhale 2 puffs into the lungs every 4 hours as needed for Wheezing. Use with spacer (Patient not taking: Reported on 04/28/2018) 1 Inhaler 5 No current facility-administered medications for this visit. Current Outpatient Prescriptions on File Prior to Visit Medication Sig Dispense Refill ??? ascorbate calcium (VITAMIN C ORAL) Take by mouth. ??? Lactobacillus acidophilus (PROBIOTIC ORAL) Take by mouth. ??? linezolid in dextrose 5% (ZYVOX) 600 mg/300 mL Parenteral Solution Inject 600 mg into the vein every 12 hours. ??? docusate sodium (COLACE) 100 mg Capsule [...] ??? ergocalciferol (VITAMIN D) 50,000 unit capsule 15193 unit, PO, once a month (Patient taking differently: 50,000 units PO twice a week) ??? risedronate sodium (ACTONEL ORAL) Take by mouth. ??? multivitamin (THERAGRAN) Tablet Take 1 tablet by mouth daily. ??? [DISCONTINUED] oxyCODONE (ROXICODONE) 5 mg Tablet ??? albuterol 90 mcg/actuation HFA Aerosol Inhaler Inhale 2 puffs into the lungs every 4 hours as needed for Wheezing. Use with spacer (Patient not taking: Reported on 04/28/2018) 1 Inhaler 5 No current facility-administered medications on file prior to visit. Allergies Allergen Reactions ??? Infliximab Anaphylaxis and Other (See Comments) throat swelling,chest heaviness ??? Iodinated Contrast- Oral And Iv Dye Anaphylaxis ??? Iodine And Iodide Containing Products Anaphylaxis ??? Vancomycin Anaphylaxis ??? Wellbutrin [Bupropion Hcl] Other (See Comments) Causes retless leg syndrome ??? Ms Contin [Morphine] ??? Sulfa (Sulfonamide Antibiotics) ??? Sulfisoxazole ??? Sulfisoxazole Acetyl Unknown Review of Systems A comprehensive review of systems was negative. No fevers, chills, systemic or constitutional complaints. Objective: Vitals: 05/15/18 1259 Weight: 80.7 kg (178 lb) Height: 151.1 cm (4' 11.5) Body mass index is 35.35 kg/(m^2). General: alert, appears stated age, cooperative, no distress and well developed, well-nourished. Non-toxic appearing. Left Elbow Circulation: warm, well perfused, brisk capillary refill distal to elbow Skin: persistent posterior elbow wound see pictures below with no obvious exposed bone or prothesis. There is no surrounding erythema or evidence of infection. No fluctuance. No streaking cellulitis. Edema: no swelling of the entire surface Deformity: There is an obvious deformity about the fingers due to inflammatory arthropathy. The 5thfinger is with decreased light touch sensation and intrinsic weakness noted Flexion ROM: 90 degrees Extension ROM: 0 degrees Pronation ROM: 50 degrees painful Supination ROM: 30 degrees painful Sensation: deficit noted - ulna nerve 5th finger decreased sensation with the finger intrinsic weakness noted Tenderness: Mild entire elbow Stress Exam: There is not tenderness with varus stress. There is not tenderness with valgus stress. Skin is warm dry and well perfused Imaging 3 views of the elbow were obtained today and reviewed image by image in the office today reveals a stable LEFT elbow prothesis with no loosening or mal-positioning. Assessment: 62 year old Female with seronegative rheumatoid arthritis with a LEFT elbow arthroplasty ~ 3 monthsago post op course complicated by wound dehiscence and ulnar neuritis with intrinsic weakness. Plan: Dr Fuller looked in on the patient and agrees with above. Treatment options and risks/benefits discussed from least to most invasive. Patient understands options. At this time, We recommend wound closure with Dr. Masters and left elbow exploration I and D with Dr. Fuller. The implant appears stable by plain radiographs. She is interested in complete hardware removal, yet after further discussion in theoffice Marla states that she did not fully understand the ramifications of explant surgery which would essentially leave her with a flail arm which could lead to significant disability even with an elbow brace. She agrees to aforementioned exploratory surgery and proceed as recommended with Dr. Fuller. The risk and benefits of surgery discussed with Dr. Fuller and she would like to proceed. The risks and benefits of surgery were discussed with Dr. Fuller. She is Jehovah Witness and requests no bloodproducts. Surgical consent signed. Wound care by Nan VILLATORO with Aqua [employer]li [employer] , gauze and kerlex with co-ban. Finally, We will obtain a neurology consult today to assess her ulna nerve. Addendum: The EMG/NCS performed today reveals significant ulnar nerve compression. See results in scanned docs. Pt agrees, questions solicited/answered, will return as scheduled and as needed for concerns or questions. Pt understands they may also call us prn for above. * Parul Kelley RN - 05/15/2018 1:20 PM EDT Pre Op Teaching Elbow Surgery Patient educated on importance of staying healthy and maintaining skin integrity, especially of effected arm pre-op. Patient will inform us of any skin rashes, breaks in skin or illnesses prior to surgery. Discussed practicing ADL???s with non-operative arm. Discussed no ASA or NSAID'S 7 days prior to surgery. May take Tylenol if needed. Currently taking coumadin, call out to Dr. Cassidy regarding this issue General post op guidelines discussed including hydration, nutrition, constipation, ice and most importantly elevation of arm. A review of typically prescribed post op pain medication and suggestions for taking and tapering them in a methodical fashion was undertaken. Currently taking methadone, call out to Dr. Cassidy regarding this issue Hibiclens soap instructions given Written material given Elbow Surgery. Questions solicited and answered. Pt knows to call with any additional questions or concerns. Patient advised to read post-op instructions from day of surgery for specific recommendations aftersurgery. documented in this encounter Plan of Treatment Scheduled Referrals Name Type Priority Associated Diagnoses Orde r Schedule Referral to Neurology Outpatient Referral Routine Elbow wound, left, sequela Ordered: 05/15/2018 documented as of this encounter Procedures Procedure Name Priority Date/Time Associated Diagnosis Comments ARTHROTOMY, ELBOW, EXPLORATION, DRAINAGE, OR REMOVAL FB Routine 05/15/2018 1:54 PM EDT documented in this encounter Visit Diagnoses Diagnosis Elbow wound, left, sequela- Primary Elbow wound, left, initial encounter Elbow joint replacement status, left Dr. Mcgill January 2018 documented in this encounter Care Teams Specialist Wound Care Relationship Specialty Start Date End Date Curt Cassidy MD [address], [place] [id number] PCP - General 10/10/10 documented as of this encounter
--- OUTSIDE RECORDS SUMMARY | 2024-10-30 01:35 | XMS_ITS | Encounter Summary ---
Author Organization [facility] [place] [address] Care Team Providers Care Data Analysis Intern Name Role Phone Curt Cassidy MD Primary Care Provider [phone] Reason for Visit * Reason Onset Date Comments Medication Refill 09/23/2017 Encounter Details Date Type Department Care Team (Late st Contact Info) Description 09/23/2017 [place] [address] Matilda Bush MA Social History Tobacco Use [...] on filedocumented in this encounter Care Teams Data Analysis Intern Relationship Specialty Start Date End Date Curt Cassidy MD [address] [facility], [facility] [address] [place] [address] PCP - General 10/10/10 documented as of this encounter
--- OUTSIDE RECORDS SUMMARY | 2024-10-30 01:35 | XMS_ITS | Encounter Summary ---
Author Organization [facility] Address [facility] [place] [address] Care Team Providers Care Corking Machine Operator Name Role Phone Curt Cassidy MD Primary Care Provider [phone] Encounter Details Date Type Department Care Team (Latest Contact Info) Description 07/19/2016 2:53 PM EDT - 07/19/2016 11:59 PM EDT Hospital Encounter XRay at [address] [place] [address] Lorie Fuller MD [facility] [place] [address] Arthritis of left elbow Discharge Disposition: Home Social History Tobacco Use [...] mouth daily. 11/05/2013 gabapentin (NEURONTIN) 300 mg capsuleIndications:Neur opathy Take 2 capsules by mouth 2 times daily. Take at 0900 and 1400 daily. 11/05/2013 diphenhydrAMINE (BENADRYL) 25 mg capsule Take 1 capsule by mouth every 6 hours as needed for Itching (Patient requests to take this the same time as the Methadone). 11/05/2013 ergocalciferol (VITAMIN D) 50,000 unit capsule 91432 unit, PO, once a month 10/23/2010 risedronate (ACTONEL) 35 mg Tablet Take 35 mg by mouth every 7 days. 05/01/2016 12/27/2023 predniSONE (DELTASONE) 5 mg TabletIndications:Rheum atoid arthritis(714.0) 8 T for 3 days, reduce by 1 T every 3 days and stop at 5 mg/d 200 tablet 07/02/2016 08/08/2016 predniSONE (DELTASONE) 5 mg Tablet Take 7.5 mg by mouth daily. 11/05/2022 alendronate (FOSAMAX) 70 mg Tablet Take 1 tablet by mouth every 7 days. Take in AM with full glass of water, on an empty stomach. Do not lie down for 30 min. 12 tablet 3 06/13/2016 09/23/2017 doxycycline (VIBRAMYCIN) 100 mg CapsuleIndications:Recu rrent cellulitis of lower leg Take 1 capsule by mouth daily. 90 capsule 3 04/27/2016 05/21/2017 leflunomide (ARAVA) 20 mg Tablet TAKE ONE TABLET BY MOUTH ONCE DAILY 90 tablet 3 08/25/2015 09/15/2016 acyclovir (ZOVIRAX) 800 mg TabletIndications:Rheum atoid arthritis(714.0) Take 1 tablet by mouth daily. 90 tablet 3 08/22/2015 07/25/2016 warfarin (COUMADIN) 5 mg tablet Take 5-7.5 [...] by mouth nightly as needed. 11/05/2013 02/25/2023 Psyllium Seed-Sucrose (METAMUCIL) Powd 1 Tsp, PO, Three times daily 10/23/2010 01/07/2017 documented as of this encounter Progress Notes * Radha Ramos, FORMING DEPARTMENT END FINDER - 07/12/2016 9:04 AM EDT Images from the original note were not included. PRE-PROCEDURE NOTE FOR INJECTION UNDER FLUOROSCOPY Date of : 1955 Age: 60 y.o. PCP: CURT CASSIDY MD Referring Physician (if different): ANGELICA Billings Indication: Arthritis of left elbow Planned Procedure: Left radiocapitellar joint steroid injection with local anesthetic under fluoroscopy Chief Complaint/Diagnosis: Left elbow pain Pertinent Past Medical/Surgical History: 60 yo female with RA and degenerative arthropathy of the elbow. Plan at this time is for a fluoro-guided steroid injection of the left elbow. History of clinic injection. Patient Active Problem List Diagnosis Code ??? Seronegative rheumatoid arthritis M06.00 ??? Edema leg R60.0 ??? Cellulitis of leg, right L03.115 ??? Popliteal cyst M71.20 ??? MRSA (methicillin resistant Staphylococcus aureus) infection A49.02 ??? RA (rheumatoid arthritis) M06.9 ??? DJD (degenerative joint disease) of knee M17.9 ??? Internal derangement of knee M23.90 ??? Encounter for long-term (current) use of other medications Z79.899 ??? Lateral epicondylitis of elbow M77.10 ??? Orthopnea R06.01 ??? Unspecified essential hypertension I10 ??? Unspecified hypothyroidism E03.9 ??? Rheumatoid arthritis(714.0) M06.9 ??? Pain in joint, shoulder region M25.519 ??? Osteoporosis, unspecified M81.0 ??? Unspecified vitamin D deficiency E55.9 ??? Other pulmonary embolism and infarction I26.99 ??? Other dyspnea and respiratory abnormality R06.09, R09.89 ??? Abnormal weight gain R63.5 ??? Cervicalgia M54.2 ??? Pain in limb M79.609 ??? 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 Left TKA 11/02 Z96.659 ??? Chronic pain G89.29 ??? Total knee replacement status, left ??? Bilateral hand pain with deformities from RA. M79.641, M79.642 ??? Sjogrens syndrome M35.00 ??? Keratitis H16.9 ??? 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 Lung nodule seen on imaging study R91.1 ??? Pleural effusion J90 ??? Tendonitis, Achilles, left M76.62 Past Medical History Diagnosis Date ??? Allergic state ??? Arthritis ??? Hypertension ??? Sjogren's syndrome ??? Thyroid disease Past Surgical History Procedure Laterality Date ??? Hysterectomy, total abdominal ??? Shoulder surgery ??? Pro total knee arthroplasty 11/02/2013 @TOTAL KNEE ARTHROPLASTY performed by Mayco Montanez Jr., MD at [facility] Allergies Allergen Reactions ??? Iodinated Contrast Media - Iv Dye Anaphylaxis ??? Iodine And Iodide Containing Products Anaphylaxis ??? Vancomycin Anaphylaxis ??? Infliximab Other (See Comments) throat swelling,chest heaviness ??? Wellbutrin [Bupropion Hcl] Other (See Comments) Causes retless leg syndrome ??? Ms Contin [Morphine] ??? Sulfa (Sulfonamide Antibiotics) ??? Sulfisoxazole ??? Sulfisoxazole Acetyl Unknown Current Outpatient Prescriptions on File Prior to Encounter Medication Sig Dispense Refill ??? predniSONE (DELTASONE) 5 mg Tablet 8 T for 3 days, reduce by 1 T every 3 days and stop at 5 mg/d 200 tablet 0 ??? predniSONE (DELTASONE) 5 mg Tablet Take 5 mg by mouth daily. ??? alendronate (FOSAMAX) 70 mg Tablet Take 1 tablet by mouth every 7 days. Take in AM with full glass of water, on an empty stomach. Do not lie down for 30 min. (Patient not taking: Reported on 07/02/2016) 12 tablet 3 ??? doxycycline (VIBRAMYCIN) 100 mg Capsule Take 1 capsule by mouth daily. 90 capsule 3 ??? leflunomide (ARAVA) 20 mg Tablet TAKE ONE TABLET BY MOUTH ONCE DAILY 90 tablet 3 ??? acyclovir (ZOVIRAX) 800 mg Tablet Take 1 tablet by mouth daily. 90 tablet 3 ??? Carboxymethylcellulose Sodium 0.25 % Dropperette Place 1 drop into both eyes 6 times daily. ??? levothyroxine (SYNTHROID) 125 mcg Tablet Take 125 mcg by mouth daily. ??? methadone (DOLOPHINE) 10 mg Tablet Take 10 mg by mouth 4 times daily. Two tablets four times a day ??? warfarin (COUMADIN) 5 mg tablet Take 5 mg by mouth See Admin Instructions. ??? cyclobenzaprine (FLEXERIL) 10 mg tablet Take 10 mg by mouth 3 times daily as needed. ??? calcium carbonate 648 mg calcium tablet Take 1 tablet by mouth 3 times daily (with meals). ??? doxepin (SINEQUAN) 50 mg capsule Take 1 capsule by mouth daily. ??? gabapentin (NEURONTIN) 300 mg capsule Take 2 capsules by mouth 2 times daily. Take at 0900 and 1400 daily. (Patient taking differently: Take 600 mg by mouth 3 times daily as needed.) ??? senna-docusate (PERICOLACE) 8.6-50 mg per tablet Take 1-4 tablets by mouth 2 times daily. ??? zolpidem (AMBIEN) 10 mg tablet Take 1 tablet by mouth nightly as needed. ??? diphenhydrAMINE (BENADRYL) 25 mg capsule Take 1 capsule by mouth every 6 hours as needed for Itching (Patient requests to take this the same time as the Methadone). ??? Psyllium Seed-Sucrose (METAMUCIL) Powd 1 Tsp, PO, Three times daily ??? ergocalciferol (VITAMIN D) 50,000 unit capsule 87126 unit, PO, once a month (Patient taking differently: 47724 unit, PO, twice a week) No current facility-administered medications on file prior to encounter. Pertinent ROS: as per HPI Pertinent Family History: non contributory Social History: n/a Labs: Lab Results Component Value Date WBC 9.4 12/19/2015 HCT 41.2 12/19/2015 PLATELET 369 12/19/2015 INR 2.7 (H) 07/26/2014 BUN 9 12/19/2015 Lab Results Component Value Date ALKPHOS 115 (H) 12/19/2015 AST 20 12/19/2015 ALBUMIN 4.1 12/19/2015 BILIDIR 0.1 12/19/2015 BILITOT 0.5 12/19/2015 ALT 10 12/19/2015 Imaging: Assessment / Plan: Arthritis of left elbow Planned Procedure: Left radiocapitellar joint steroid injection with local anesthetic under fluoroscopy Medications to discontinue: None Prophylactic antibiotic: None Planned access site / position: Left radiocapitellar documented in this encounter Plan of Treatment Not on file documented as of this encounter Procedures Procedure Name Priority Date/Time Associated Diagnosis Comments XR FLUORO INJECTION DRAINAGE JOINT MD GUAMAN Routine 07/19/2016 4:01 PM EDT Arthritis of left elbow documented in this encounter Results * XR Fluoro Injection Drainage Joint Md Guaman (07/19/2016 4:01 PM EDT) Anatomical Region Laterality Modality Left Radio Fluoroscop y Impressions 07/19/2016 5:04 PM EDT Uneventful LEFT elbow injection under fluoroscopy. I, LISA HE MD , was present for the entire procedure and I performed the procedure. Narrative 07/19/2016 5:04 PM EDT EXAMINATION: ??XR FLUORO INJECTION DRAINAGE JOINT MD GUAMAN CLINICAL HISTORY: ??Body Part (please add comments as necessary): Left elbow, History of rheumatoid arthritis, requesting radiocapitellar injection for elbow pain and stiffness LEFT ELBOW INJECTION UNDER FLUOROSCOPY TECHNIQUE: After an extensive conversation with the patient regarding risks and benefits, oral and written consent were obtained. ??A pre- procedural time-out was performed as per [facility] protocol. The patient was placed supine on the fluoroscopic table. ??The LEFT elbow was prepped and draped in the usual aseptic manner. 1% Lidocaine was used to achieve local anesthesia. Under fluoroscopic guidance, a 25 ?gauge ? needle was advanced into the joint space. ??Small amount of air was injected to the document needle placement. ??A mixture of Ropivacaine and triamcinolone acetonide was injected. All needles removed at end of procedure. FINDINGS: 1. ??Small amount of injected air in the LEFT elbow joint space. 2. ??PAIN SCORE: ??Before: 6/10 ??After: 5/10 3. Fluoroscopy time: 7 sec 4. Medications: ??Lidocaine 1% - <5 ml, for subcutaneous anesthesia ??Ropivacaine HCL ??0.5% - 3 ml ??Triamciolone Acetonide ??- 30 mg COMPLICATIONS: ??None immediate. POST-PROCEDURE CARE: Information regarding monitor of infection, post- procedural pain and management of steroid flare were reviewed with patient. Procedure Note Lisa He MD - 07/19/2016 EXAMINATION: XR FLUORO INJECTION DRAINAGE JOINT MD GUAMAN CLINICAL HISTORY: Body Part (please add comments as necessary): Leftelbow, History of rheumatoid arthritis, requesting radiocapitellar injection forelbow pain and stiffness LEFT ELBOW INJECTION UNDER FLUOROSCOPY TECHNIQUE: After an extensive conversation with the patient regardingrisks and benefits, oral and written consent were obtained. A pre- proceduraltime-out was performed as per [facility] protocol. The patient was placed supine on the fluoroscopic table. The LEFT elbowwas prepped and draped in the usual aseptic manner. 1% Lidocaine was used toachieve local anesthesia. Under fluoroscopic guidance, a 25 gauge needlewas advanced into the joint space. Small amount of air was injected to thedocument needle placement. A mixture of Ropivacaine and triamcinolone acetonidewas injected. All needles removed at end of procedure. FINDINGS: 1. Small amount of injected air in the LEFT elbow joint space. 2. PAIN SCORE: Before: 6/10 After: 5/10 3. Fluoroscopy time: 7 sec 4. Medications: Lidocaine 1% - <5 ml, for subcutaneous anesthesia Ropivacaine HCL 0.5% - 3 ml Triamciolone Acetonide - 30 mg COMPLICATIONS: None immediate. POST-PROCEDURE CARE: Information regarding monitor of infection, post- procedural pain and management of steroid flare were reviewed withpatient. IMPRESSION Uneventful LEFT elbow injection under fluoroscopy. ILISA MD , was present for the entire procedure and Iperformed the procedure. Lorie Fuller MD IMG FLUORO ORDERABLE S documented in this encounter Visit Diagnoses Diagnosis Arthritis of left elbow documented in this encounter Administered Medications Inactive Administered Medications - up to 3 most recent administrations Medication Order MAR Action Action Date Dose Rate Site ROpivacaine (PF) 5 mg/mL (0.5 %) 4 mL with triamcinolone acetonide 40 mg injection Intra-articular, ONCE, 1 dose, On [place] 07/19/16 at 1630 Given 07/19/2016 3:40 PM EDT documented in this encounter Care Teams Corking Machine Operator Relationship Specialty Start Date End Date Curt Cassidy MD [address], [address] [address] PCP - General 10/10/10 documented as of this encounter
--- OUTSIDE RECORDS SUMMARY | 2024-10-30 01:35 | XMS_ITS | Encounter Summary ---
Author Organization [facility] [place] [address] Care Team Providers Care Com Writer Name Role Phone Curt Cassidy MD Primary Care Provider [phone] Encounter Details Date Type Department Care Team (Latest Contact Info) Description 04/02/2018 10:11 AM EDT - 04/02/2018 11:59 PM EDT Hospital [place] [address] Rheumatoid lung disease Discharge Disposition: Home Social [...] 11/05/2013 ergocalciferol (VITAMIN D) 50,000 unit capsule 29598 unit, PO, once a month 10/23/2010 budesonide-formoteroL (Symbicort) 160-4.5 mcg/actuation HFA Aerosol Inhaler SYMBICORT 160-4.5 MCG/ACT AERO 04/22/2017 11/05/2022 risedronate (ACTONEL) 35 mg Tablet Take 35 mg by mouth every 7 days. 05/01/2016 12/27/2023 oxyCODONE (ROXICODONE) 5 mg Tablet 03/21/2018 05/15/2018 acyclovir (ZOVIRAX) 800 mg Tablet TAKE ONE TABLET BY MOUTH ONCE DAILY 90 tablet 1 01/21/2018 08/28/2018 doxycycline (VIBRAMYCIN) 100 mg CapsuleIndications:Rec urrent cellulitis of lower leg Take one capsule by mouth once daily 90 capsule 3 11/29/2017 06/02/2018 leflunomide (ARAVA) 20 mg TabletIndications:Rheu matoid arthritis, [...] as of this encounter Procedure Notes * Rhys Penny MD - 04/02/2018 9:47 PM EDTAssociated Order(s): PULMONARY FUNCTION TEST Spirometry: FVC is decreased FEV1 is decreased FEV1 / FVC ratio is normal Diffusion: DLCO is decreased Lung Volumes: TLC is decreased RV is normal RV / TLC is increased Oxygen Saturation: Oxygen saturation 97% on RA at rest Interpretation: ?? Spirometry suggests restriction ?? Lung volumes confirm Mild restriction ?? Moderate reduction in diffusing capacity ?? Causes of a low diffusing capacity include interstitial lung disease, parenchymal lung disease such as emphysema, anemia and pulmonary hypertension ?? Oxygen saturation normal on room air Rhys Penny MD documented in this encounter Plan of Treatment Not on file documented as of this encounter Procedures Procedure Name Priority Date/Time Associated Diagnosis Comments COMMON PULMONARY FUNCTION TEST Routine 04/02/2018 9:48 PM EDT Rheumatoid lung disease documented in this encounter Results * Pulmonary Function Testing (04/02/2018 9:48 PM EDT) Narrative Rhys Penny MD - 04/02/2018 9:48 PM EDT Rhys Penny MD ? 04/02/2018 ??9:48 PM Spirometry: FVC is decreased FEV1 is decreased FEV1 / FVC ratio is normal Diffusion: DLCO is decreased Lung Volumes: TLC is decreased RV is normal RV / TLC is increased Oxygen Saturation: Oxygen saturation 97% on RA at rest Interpretation: ?? Spirometry suggests restriction ?? Lung volumes confirm Mild restriction ?? Moderate reduction in diffusing capacity ?? Causes of a low diffusing capacity include interstitial lung disease, parenchymal lung disease such as emphysema, anemia and pulmonary hypertension ?? Oxygen saturation normal on room air Rhys Penny MD Zaki Bui MD PFT ORDERABLES documented in this encounter Visit Diagnoses Diagnosis Rheumatoid lung disease Rheumatoid lung documented in this encounter Care Teams Com Writer Relationship Specialty Start Date End Date Curt Cassidy MD [address], [facility] [address] [place] [address] PCP - General 10/10/10 documented as of this encounter
--- OUTSIDE RECORDS SUMMARY | 2024-10-30 01:35 | XMS_ITS | Encounter Summary ---
Author Organization [facility] Address [facility] [place] [address] Care Team Providers Care Tongue And Groove Machine Feeder Name Role Phone Curt Cassidy MD Primary Care Provider [phone] Encounter Details Date Type Department Care Team (Latest Contact Info) Description 04/24/2018 - 04/24/2018 11:59 PM EDT Hospital Encounter Radiology Library at [facility] [place] [id number] Rupert Masters MD [facility] [place] [address] Discharge Disposition: Home Social History Tobacco Use [...] 11/05/2013 ergocalciferol (VITAMIN D) 50,000 unit capsule 09813 unit, PO, once a month 10/23/2010 budesonide-formoteroL [...] Associated Diagnosis Comments FILM LIBRARY STORAGE ONLY DX CHEST Routine 04/24/2018 12:00 AM EDT documented in this encounter Results * Film Library- Storage Only DX Chest (04/24/2018 12:00 AM EDT) Narrative [facility] - 04/25/2018 4:11 PM EDT This exam is for storage only and is auto-finalizing. Rupert Masters MD IMG FILM LIBRARY ORD ERABLES [place], [place] documented in this encounter Visit Diagnoses Not on filedocumented in this encounter Care Teams Tongue And Groove Machine Feeder Relationship Specialty Start Date End Date Curt Cassidy MD [address] [facility] [address] [place] [address] PCP - General 10/10/10 documented as of this encounter
--- OUTSIDE RECORDS SUMMARY | 2024-10-30 01:35 | XMS_ITS | Encounter Summary ---
Author Organization [facility] Address [facility] [place] [address] Care Team Providers Care Checkroom Chief Name Role Phone Curt Cassidy MD Primary Care Provider [phone] Reason for Visit * Reason Onset Date Comments Referral 04/29/2018 Advice Only 04/29/2018 Encounter Details Date Type Department Care Team (Late st Contact Info) Description 04/29/2018 [place] [address] Lorie Fuller MD [facility] [place] [address] Referral; Advice Only Social History Tobacco Use Types Packs/Day Years [...] encounter Miscellaneous Notes * Telephone Encounter - Mona Barrientos - 04/29/2018 9:05 AM EDT IRVING Stanley from [facility] calls seeking to coordinate a call between Dr. Fuller and Dr. Mcgill. Patient has been seen by Plastics for elbow wound/flap and has referred to Dr. Fuller. Dr. Mcgill has managed her care to this point. Dr. Mcgill would like to speak to Dr. Fuller directly. Lizeth and I discussed that both surgeons are in surgery today but I would pass along the message. Dr. Mcgill can be reached on his cell at [phone], or Lizeth can help coordinate. Her direct extension is [phone]. She was very appreciative of the coordination. documented in this encounter Plan of Treatment Not on file documented as of this encounter Visit Diagnoses Not on filedocumented in this encounter Care Teams Checkroom Chief Relationship Specialty Start Date End Date Curt Cassidy MD [address] [facility], [facility] [address] [place] [address] PCP - General 10/10/10 documented as of this encounter
--- OUTSIDE RECORDS SUMMARY | 2024-10-30 01:35 | XMS_ITS | Encounter Summary ---
Author Organization [facility] Address [facility] [place] [address] Care Team Providers Care Automation Qa Lead Name Role Phone Curt Cassidy MD Primary Care Provider [phone] Encounter Details Date Type Department Care Team (Late st Contact Info) Description 12/31/2017 [place] [address] Zaki Galdamez MD [facility] [place] [address] Social History Tobacco Use Types Packs/Day Years [...] encounter Miscellaneous Notes * Telephone Encounter - Emmy Wisdom LPN - 01/06/2018 4:35 PM EST . documented in this encounter Plan of Treatment Not on file documented as of this encounter Visit Diagnoses Not on filedocumented in this encounter Care Teams Automation Qa Lead Relationship Specialty Start Date End Date Curt Cassidy MD [address] [facility], [facility] 3 [place] [address] PCP - General 10/10/10 documented as of this encounter
--- OUTSIDE RECORDS SUMMARY | 2024-10-30 01:35 | XMS_ITS | Encounter Summary ---
Author Organization [facility] Address [facility] [place] [address] Care Team Providers Care Plasterer Spray Gun Name Role Phone Curt Cassidy MD Primary Care Provider Encounter Details Date Type Department Care Team (Late st Contact Info) Description 05/15/2018 External Results [place] [address] Dennis Quick MD [facility] [place] [address] Social History Tobacco Use Types Packs/Day Years [...] Procedure Name Priority Date/Time Associated Diagnosis Comments EMG SCAN Routine 05/15/2018 documented in this encounter Results * Scan Doc: EMG (05/15/2018) Dennis Quick MD MEDIA MGR SCAN EXT O RDR/RSLT documented in this encounter Visit Diagnoses Not on filedocumented in this encounter Care Teams Plasterer Spray Gun Relationship Specialty Start Date End Date Curt Cassidy MD [address] [facility], [facility] [place] [address] [place] [address] PCP - General 10/10/10 documented as of this encounter
--- OUTSIDE RECORDS SUMMARY | 2024-10-30 01:35 | XMS_ITS | Encounter Summary ---
Author Organization [facility] Address [facility] [place] [address] Care Team Providers Care Serging Machine Operator Name Role Phone Curt Cassidy MD Primary Care Provider [phone] Encounter Details Date Type Department Care Team (Latest Contact Info) Description 05/15/2018 11:56 AM EDT - 05/15/2018 11:59 PM EDT Hospital Encounter XRay at [address] [place] [address] Lorie Fuller MD [facility] [place] [address] Elbow pain, left Discharge Disposition: Home Social History [...] 11/05/2013 ergocalciferol (VITAMIN D) 50,000 unit capsule 40278 unit, PO, once a month 10/23/2010 budesonide-formotero [...] greater than 5/10). 20 tablet 06/03/2018 07/14/2018 Ertapenem 1 gram Recon Soln Inject 1 g into the vein daily. 06/03/2018 risedronate sodium (ACTONEL ORAL) Take by mouth. 10/20/2018 ascorbate calcium (VITAMIN C ORAL) Take by mouth daily. multivitamin (THERAGRAN) Tablet Take 1 tablet by mouth daily. 06/12/2018 Lactobacillus acidophilus (PROBIOTIC ORAL) Take by mouth. 8 linezolid in dextrose 5% (ZYVOX) 600 mg/300 mL Parenteral Solution Inject 600 mg into the vein every 12 hours. 06/03/2018 acyclovir (ZOVIRAX) 800 mg Tablet TAKE ONE TABLET BY MOUTH ONCE DAILY 90 tablet 1 01/21/2018 08/28/2018 doxycycline (VIBRAMYCIN) 100 mg CapsuleIndications:R ecurrent cellulitis of lower leg Take one capsule by mouth once daily 90 capsule 3 11/29/2017 06/02/2018 leflunomide (ARAVA) 20 mg TabletIndications:Rh eumatoid arthritis, [...] XR ELBOW 3 VIEWS LEFT (GENERIC) Routine 05/15/2018 12:11 PM EDT Elbow pain, left documented in this encounter Results * XR Elbow 3 views Complete Left (Generic) (05/15/2018 12:11 PM EDT) Anatomical Region Laterality Modality Elbow Left Digital Radiogra phy Impressions 05/15/2018 3:00 PM EDT 1. ??Status post left elbow arthroplasty with a 3 mm lucency at the radial sided bone-metal interface of the humeral component. This finding could represent loosening or infection. 2. ??Large soft tissue wound along the posterior elbow with ill-defined lucencies along the cortical margins of the truncated olecranon. It is unclear whether these lucencies represent the post operative appearance of the olecranon or sites of osteomyelitis. Recommend correlation with clinical signs and symptoms of infection and laboratory markers of inflammation/infection. I have personally reviewed the image(s) and the residents interpretation and agree with the findings, RAMIRO LONG at 05/15/2018 3:00 PM Narrative 05/15/2018 3:00 PM EDT EXAMINATION: XR ELBOW 3 VIEWS COMPLETE LEFT (GENERIC) CLINICAL HISTORY: LEFT ELBOW WOUND/PAIN TECHNIQUE: 3 views of the left elbow COMPARISON: Left elbow radiographs 06/28/2016 FINDINGS: Status post left elbow arthroplasty with no periprosthetic fracture. On one of the AP views, there is a 3 mm lucency at the radial sided bone-metal interface of the humeral component. Overlying the truncated olecranon process, there are ill-defined lucencies which causes poor visualization of the cortical margins, immediately underlying the large soft tissue wound, concerning for osteomyelitis. Soft tissue defect on the olecranon likely represents the wound. No air within the soft tissues. There is soft tissue swelling. Procedure Note Ramiro Long MD - 05/15/2018 EXAMINATION: XR ELBOW 3 VIEWS COMPLETE LEFT (GENERIC) CLINICAL HISTORY: LEFT ELBOW WOUND/PAIN TECHNIQUE: 3 views of the left elbow COMPARISON: Left elbow radiographs 06/28/2016 FINDINGS: Status post left elbow arthroplasty with no periprosthetic fracture. Onone of the AP views, there is a 3 mm lucency at the radial sided bone-metalinterface of the humeral component. Overlying the truncated olecranon process, thereare ill-defined lucencies which causes poor visualization of the corticalmargins, immediately underlying the large soft tissue wound, concerning for osteomyelitis. Soft tissue defect on the olecranon likely represents thewound. No air within the soft tissues. There is soft tissue swelling. IMPRESSION 1. Status post left elbow arthroplasty with a 3 mm lucency at the radialsided bone-metal interface of the humeral component. This finding couldrepresent loosening or infection. 2. Large soft tissue wound along the posterior elbow with ill-definedlucencies along the cortical margins of the truncated olecranon. It is unclearwhether these lucencies represent the post operative appearance of the olecranonor sites of osteomyelitis. Recommend correlation with clinical signs andsymptoms of infection and laboratory markers of inflammation/infection. I have personally reviewed the image(s) and the residents interpretationand agree with the findings, RAMIRO LONG at 05/15/2018 3:00 PM Lorie Fuller MD IMG DX ORDERABLES documented in this encounter Visit Diagnoses Diagnosis Elbow pain, left Pain in joint, upper arm documented in this encounter Care Teams Serging Machine Operator Relationship Specialty Start Date End Date Curt Cassidy MD [address] [place] [address] PCP - General 10/10/10 documented as of this encounter
--- OUTSIDE RECORDS SUMMARY | 2024-10-30 01:35 | XMS_ITS | Encounter Summary ---
Author Organization [facility] Address [place] [address] Care Team Providers Care Stock Letterer Name Role Phone Curt Cassidy MD Primary Care Provider [phone] Encounter Details Date Type Department Care Team (Late st Contact Info) Description 01/16/2018 [place] [id number] Aminata Wisdom RN Social History Tobacco Use Types Packs/Day [...] encounter Miscellaneous Notes * Telephone Encounter - Aminata Wisdom RN - 01/17/2018 8:12 AM EST Received a VM from Lizeth at Dr Tony Stapleton's office. They would like Dr Galdamez to call over his recommendations for Pt's anesthesia for left arm surgery on 01-24-18 or write and fax. Phone number is [phone] fax number is [phone]. * Telephone Encounter - Aminata Wisdom RN - 01/16/2018 7:48 AM EST Pt calling for the second time, Pt is having surgery on elbow on 01-24-[address] Galdamez to clear her for surgery and discuss her Lung Function and ability to make it through the surgery. [phone] documented in this encounter Plan of Treatment Not on file documented as of this encounter Visit Diagnoses Not on filedocumented in this encounter Care Teams Stock Letterer Relationship Specialty Start Date End Date Curt Cassidy MD [address], [facility] [address] [place] [address] PCP - General 10/10/10 documented as of this encounter
--- OUTSIDE RECORDS SUMMARY | 2024-10-30 01:35 | XMS_ITS | Encounter Summary ---
Author Organization [facility] Address [facility] [address] [place] [address] Care Team Providers Care Materials And Processes Manager Name Role Phone Curt Cassidy MD Primary Care Provider [phone] Encounter Details Date Type Department Care Team (Late st Contact Info) Description 01/07/2017 12:00 PM EST Office [place] [address] Rafael Sidhu MD [facility] [address] Rheumatoid arthritis, involving unspecified site, unspecified rheumatoid factor presence; Pleuritic pain; Coccygeal pain Social History Tobacco Use Types Packs/Day [...] Sign Reading Time Taken Comments Blood Pressure 128/71 01/07/2017 11:50 AM EST Pulse 81 01/07/2017 11:50 AM EST Temperature 36.6 ??C (97.9 ??F) 01/07/2017 11:[address] Respiratory Rate - - Oxygen Saturation 100% 01/07/2017 11:50 AM EST Inhaled Oxygen Concentration - - Weight 73.9 kg (163 lb) 01/07/2017 11:50 AM EST Height 148.6 cm (4' 10.5) 01/07/2017 11:[address] Body Mass Index 33.49 01/07/2017 11:50 AM EST documented in this encounter Patient Instructions * Patient Instructions* Rafael Sidhu MD - 01/07/2017 12:00 PM EST 1. Labs through Dr. Cassidy,CBC and CMP done 2. 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 Typically getting labs through Dr. Cassidy at [facility]. Her more recent treatments (last 5 years) [...] and there is borderline oxygen desaturation with ambulation. CT chest same day: 1. Slightly improved inflation but some residual atelectasis. Line no significant degree of fibrosis. 2. Stable 7 mm right lower lobe nodule. Consider follow-up low-dose non-contrast chest CT limited to between the nando and diaphragm in one year. ?? Interval History: She comes in today in 8 month f/u. 1. Pain in left heel: Achilles tendonitis/bursal injection wearing boot,seems less of a problem than before, but has not been walking. 2. Breathing: F/u with Dr. Galdamez about breathing. Some respirophasic pain, but no major loss of change 3. Joints doing poorly on Leflunomide 20 mg/d and Prednisone 5 mg/: no infections, tolerating meds 4. Left elbow pain: seen in orthopedics will be scheduled by CT-guided injection with markedbenefit She has reduced her methadone from 80 mg/d to 60 mg/d. Still having chronic coccygeal pain with change in position, arising from chair 1. Left elbow motion has been compromised and limited in context of severe disease in her right shoulder and elbow as well. Having trouble combing her hair. 2. Right hand deformity: She is also concerned about the quality of the splinting for her right hand which does not extend distally far enough to keep her MCPs and PIPs in extension and also does notcorrect her ulnar deveiation 3. Left heel pain: this has emerged with a bump on her heel and has become very painful 4. Severe knee pain with TKR underwent left showing: medial DJD with lush synovitis and medial and lateral meniscal tears. Still 'stiff'. Occasional 5.. No recurrent blood clots. Still on coumadin. No bleeding 6.. Complained of dry eyes: Had lacrimal duct plugging. Stopped the Restasis, using topicals only. 7. Reportedly had very low vitamin D level: on replacement Still taking doxycycline for Staph prophylaxis. No infections. Review of Systems Constitutional: No fevers, chills, malaise. Skin: no rashes HEENT: no sicca sx, change in hearing, taste sinus pain, ZHANG, change in taste. Respiratory: Left sided chest [...] osteomyelitic vs cellulitis with RA. 4. DXA ([facility] 2004: -1.3 SD low at spine; 1 [...] 04/25/01 showing lateral and medial meniscal tears Current medications: updated today Physical exam reveals a chronically ill-appearing overweight white female not Cushingoid She is in pain and walks slowly with a cane due to left knee pain Blood pressure 128/71, pulse 81, [id number] ??C (97.9 ??F), temperature source Oral, height (!) 148.6 cm (4' 10.5), weight 73.9 kg (163 lb), SpO2 100 %. HEENT:normal. Neck: little or no motion Chest: poor effort, but clear Cor: RR -MGR Shoulders: decreased abduction left shoulder, right not tested due to pain. Elbows: no longer had tenderness of entire dorsal compartment of bilateral forearm up to the lateral epicondyle. The elbow moves much better. Left now has a 30 degree flexion contracture, much worse than 4 months ago. Wrists unimpressive for synovitis, but motion poor Bilateral CMC tenderness. Hands: SJC/TJC: 6/6 in hands alone, marked synovitis.. Progressive volar and ulnar deviation of MCP. Her left TKR is well healed and there is diffuse swelling to the dorsum of the foot. Left Achilles very tender to the touch at the site of a callus, representing either a spur or nodule. Thighs tender at patellar insertions Ankles: tender without warmth, wearing a boot on left foot Feet: MTP joints splaying and very tender. Impression: Persistent active RA who has failed every agent but with numerous comorbitidies maintained on prednisone/Arava that does not seem to be working particularly well. She is not in remission,but I can not honestly say there is any more inflammation or pain than before. Lung issues are stable. Plan: 1. Labs through Dr. Cassidy 2. Return 6 months Level 5 F/u visit Rafael Sidhu M.D. Staff Gas Pumping Station Operator documented in this encounter Plan of Treatment Not on file documented as of this encounter Visit Diagnoses Diagnosis Rheumatoid arthritis, involving unspecified site, unspecified rheumatoid factor presence Pleuritic pain Painful respiration Coccygeal pain Other disorder of coccyx documented in this encounter Care Teams Materials And Processes Manager Relationship Specialty Start Date End Date Curt Cassidy MD [address] [place] [address] PCP - General 10/10/10 documented as of this encounter
--- OUTSIDE RECORDS SUMMARY | 2024-10-30 01:35 | XMS_ITS | Encounter Summary ---
Author Organization [facility] Address [facility] [place] [address] Care Team Providers Care Deputy Sheriff Bailiff Name Role Phone Curt Cassidy MD Primary Care Provider [phone] Reason for Visit * Reason Onset Date Comments Medication Refill 05/16/2017 Encounter Details Date Type Department Care Team (Late st Contact Info) Description 05/16/2017 [place] [address] Zaki Galdamez MD [facility] [place] [address] Chronic obstructive bronchitis Social History Tobacco Use [...] exacerbation documented in this encounter Care Teams Deputy Sheriff Bailiff Relationship Specialty Start Date End Date Curt Cassidy MD [address] [facility], [address] [id number] PCP - General 10/10/10 documented as of this encounter
--- OUTSIDE RECORDS SUMMARY | 2024-10-30 01:35 | XMS_ITS | Encounter Summary ---
Author Organization [facility] Address [facility] [place] [address] Care Team Providers Care Naturopathic Oncology Provider Name Role Phone Curt Cassidy MD Primary Care Provider [phone] Reason for Referral * Diagnostic Test (Routine) - Closed Specialty Diagnoses / Procedures Referred By Contac t Referred To Contact Cardiology Diagnoses Chronic obstructive bronchitis Other dyspnea and respiratory abnormality Procedures Echocardiogram Transthoracic(Leb) Zaki Galdamez MD [facility] [address] [facility] [place] [address] Referral ID Status Reason Start Date Expiration Date V isits Requested Visits Authorized [id number] Closed Specialty Service Requested 09/18/2017 12/17/2017 1 1 Reason for Visit * Reason Comments Follow-up Encounter Details Date Type Department Care Team (Late st Contact Info) Description 07/08/2017 11:30 AM EDT Office [place] [address] Zaki Galdamez MD [facility] [place] [address] Chronic obstructive bronchitis; Other dyspnea and respiratory abnormality Social History Tobacco Use Types Packs/Day Years [...] Sign Reading Time Taken Comments Blood Pressure 148/66 07/08/2017 11:22 AM EDT Pulse 103 07/08/2017 11:22 AM EDT Temperature - - Respiratory Rate - - Oxygen Saturation 95% 07/08/2017 11:22 AM EDT Inhaled Oxygen Concentration - - Weight 75.3 kg (166 lb) 07/08/2017 11:22 AM EDT Height 148.6 cm (4' 10.5) 07/08/2017 11:22 AM E DT Body Mass Index 34.1 07/08/2017 11:22 AM EDT documented in this encounter Progress Notes * Zaki Galdamez MD - 07/08/2017 11:30 AM EDT PULMONARY MEDICINE Follow-up 61 y.o. female with dyspnea on exertion, bilateral pleuritic chest pain. Has occasional mild wheezing. Has hx of multple PEs. Her overall exertional capacity is limited to a great extent by pain. + Hand, knee, shoulder pains, muscle pains, and respirophasic pleuritic pains. PAST MEDICAL HISTORY: Patient Active Problem List Diagnosis Code ??? [...] M54.2 ??? Pain in limb M79.609 ??? longterm (current) use of anticoagulants Z79.01 ??? Left [...] bronchitis J44.9 ??? Rheumatoid lung disease M05.10 Past Surgical History: Procedure Laterality Date ??? HYSTERECTOMY, TOTAL ABDOMINAL ??? PRO TOTAL KNEE ARTHROPLASTY 11/02/2013 @TOTAL KNEE ARTHROPLASTY performed by Mayco Montanez Jr., MD at [facility] MAIN OR ??? SHOULDER SURGERY MEDICATIONS: Outpatient Prescriptions Marked as Taking for the 07/08/17 encounter (Office Visit) with Zaki Galdamez MD Medication Sig Dispense Refill ??? atorvastatin (LIPITOR) 20 mg Tablet Take 20 mg by mouth daily. ??? doxycycline (VIBRAMYCIN) 100 mg Capsule TAKE ONE CAPSULE BY MOUTH ONCE DAILY 90 capsule 3 ??? budesonide-formoterol (SYMBICORT) 160-4.5 mcg/actuation HFA Aerosol Inhaler Inhale 1 puff into the lungs 2 times daily. 1 Inhaler 12 ??? acyclovir (ZOVIRAX) 800 mg Tablet TAKE ONE TABLET BY MOUTH ONCE DAILY 90 tablet 3 ??? polyethylene glycol (MIRALAX) 17 gram Powder in Packet Take 17 g by mouth daily. ??? leflunomide (ARAVA) 20 mg Tablet TAKE ONE TABLET BY MOUTH ONCE DAILY 90 tablet 3 ??? predniSONE (DELTASONE) 5 mg Tablet Take 5 mg by mouth daily. ??? alendronate (FOSAMAX) 70 mg Tablet Take 1 tablet by mouth every 7 days. Take in AM with full glass of water, on an empty stomach. Do not lie down for 30 min. 12 tablet 3 ??? Carboxymethylcellulose Sodium 0.25 % [...] ??? ergocalciferol (VITAMIN D) 50,000 unit capsule 77279 unit, PO, once a month (Patient taking differently: 32564 unit, PO, twice a week) ALLERGIES: Iodinated contrast- oral and iv dye; Iodine and iodide containing products; Vancomycin; Infliximab;Wellbutrin [bupropion hcl]; Ms contin [morphine]; Sulfa (sulfonamide antibiotics); Sulfisoxazole; and Sulfisoxazole acetyl PHYSICAL EXAM Last value Range last 24 hrs Temperature Heart Rate Heart Rate: 103 Heart Rate: [103] Blood Pressure BP: 148/66 BP: (148)/(66) Respiratory Rate Resp: -- SpO2 SpO2: 95 % SpO2: [95 %] WDWN 61 y.o. female in NAD. HEENT-NC/AT; unremarkable Neck-supple without masses or, nodes Chest- quiet BS with dense crackles at bases bilaterally; limited diaphragmatic excursion. Heart-Normal rate and rhythm, without murmers, gallops, or rubs. Abdomen-benign without organomegaly or tenderness Extremities-no cyanosis, clubbing, or edema Skin-no rashes or lesions Musculoskeletal-+ MCP swelling, tenderness; wearing a boot on L ankle Neurologic-Nonfocal, without weakness or sensory deficits Lymphatics-unremarkable PFTs were performed today and my interpretation is as follows: FVC of 55% predicted, FEV1 of 47% ofpredicted, FEV1/FVC of 67%. Diffusing capacity of 78% of predicted. Lung volumes reveal a total lung capacity of 80% of predicted with a residual volume of 106% of predicted and an RV/TLC of 133%. She walked 600 feet on room air, with a wheelchair assist, and resting saturation went from 95% to 90%. The studies are consistent with borderline restriction (near normal TLC), borderline obstruction (near normal FEV1/FVC), high normal residual volume, and an abnormally high RV/TLC. The difference between the FVC and the TLC suggests a significant extra-parenchymal process. There was slight desaturation with exertion. Chest CT was performed today and my interpretation is as follows: No significant parenchymal lung disease, though she has very mild atelectasis predominantly on the left, with a small rounded nodule in the right costophrenic gutter. IMPRESSION: In summary, this is a 61 y.o. female with rheumatoid arthritis, with dyspnea, very mildairflow obstruction, near normal total lung capacity, elevated RV/TLC, and near normal diffusing capacity. She very slightly desaturated, and putting all this together it seems likely that a combination of some respiratory muscle weakness, possible splinting from her chronic pleuritic chest pain, and a likely additional component of atelectasis due to these extraparenchymal processes (though there was only a small amount on the chest CT). I suggested to her that she try increasing her prednisone to 7.5 mg per day, since she has such pain, but has an aversion to adding new medications due to prior side effects and infections. I also discussed getting a diaphragmatic fluoroscopy (sniff test) to get a sense for whether she has inspiratory muscle weakness. We can measure this is well on her return visit with inspiratory and expiratory pressures, and I also think it reasonable to check an ECHO on her next visit, which as I discussed with her, is to ensure that pulmonary hypertension is not additionally impairing her exertional capacity. Follow-up in 3 months with these studies, to coincide with Dr. Sidhu's follow-up. Greater than 30 min of this 40 minute visit was spent in face to face discussion with the patient regarding the nature of her mild extraparenchymal restriction and mild obstruction, and the evaluation of these potential contributors to her dyspnea. documented in this encounter Plan of Treatment Not on file documented as of this encounter Results * Pulmonary Function Testing (10/14/2017 4:13 PM EST) Narrative Rahul Coley MD - 10/14/2017 4:13 PM EST Rahul Coley MD ? 10/14/2017 ??4:13 PM FEV1 and FVC are decreased with a normal FEV1/FVC ratio. ?? Diffusing capacity uncorrected for hemoglobin is moderately reduced. ??The MIP and MEP are both markedly reduced. ??Oxygen saturation on room air at rest was normal. Impression: Moderately severe restrictive defect with decreased diffusing capacity and marked reduction in MIP and MEP. ??This constellation of findings is suggestive of neuromuscular disease. Zaki Bui MD PFT ORDERABLES * ECHO COMPLETE (10/14/2017 12:21 PM EST) Pathologist [facility] EF 65 HEARTLAB SYSTEM Anatomical Region Laterality Modality Other 10/14/2017 Narrative 10/14/2017 1:13 PM EST Procedure: ?Transthoracic Echocardiogram Patient: ?MARY ELLEN MARLA E ? (Age): 1955(62y) Med Rec#: ? [id number] ?Sex: ?F ? Site Loc: ? [facility] ?Ht / Wt: ??149(cm)/75(kg) Pt. Loc: ?Echo Lab ?BSA: ?1.69 Study Date: ?? 10/14/2017 ?Pt. Type: Outpatient Tape: ? Referring: Zaki Galdamez Referring: NELLY Reading: David Allison ([id number]) Medicaid Eligibility Specialist: Lucy Chester Insurance Claims Processor: Madison Rich Diagnosis: *ICD-10-PCS Chronic obstructive pulmonary [...] E-wave Vmax ?1.1 ?m/sec ? MV deceleration tpsn576.6 ?msec ? MV A-wave Vmax ?0.9 ?m/sec [...] ? Mid-Inferior ?Normal ? Mid-Inferoseptal ?Normal ? [place]-Septal ? Normal ? [place]-Anterior ? Normal ? [place]-Lateral ?Normal ? [place]-Inferior ? Normal ? [place]-Tip ?Normal ? This report has been electronically signed by: David Allison MD ? 10/14/2017 13:12:52 Images reviewed and interpretation verified [facility] Cardiac Ultrasound Laboratory Procedure Note David Allison MD - 10/14/2017 Procedure: Transthoracic Echocardiogram Patient: MARY ELLEN DEL CASTILLO(Age): 1955(62y) Med Rec#: [id number] Sex: F Site Loc: [facility] Ht / Wt: 149(cm)/75(kg) Pt. Loc: Echo Lab BSA: 1.69 Study Date: 10/14/2017 Pt. Type: Outpatient Tape: Referring: Zaki Galdamez Referring: NELLY Reading: David Allison ([id number]) Medicaid Eligibility Specialist: Lucy Chester Insurance Claims Processor: Madison Rich Diagnosis: *ICD-10-PCS Chronic obstructive pulmonary [...] MV E-wave Vmax 1.1 m/sec MV deceleration wrcj944.6 msec MV A-wave Vmax 0.9 m/sec MV [...] Normal Mid-Posterolateral Normal Mid-Inferior Normal Mid-Inferoseptal Normal [place]-Septal Normal [place]-Anterior Normal [place]-Lateral Normal [place]-Inferior Normal [place]-Tip Normal This report has been electronically signed by: David Allison MD 10/14/2017 13:12:52 Images reviewed and interpretation verified [facility] Cardiac Ultrasound Laboratory Zaki Bui MD ECHO ORDERABLES documented in this encounter Visit Diagnoses Diagnosis Chronic obstructive bronchitis Obstructive chronic bronchitis without exacerbation Other dyspnea and respiratory abnormality Chronic obstructive bronchitis Obstructive chronic bronchitis without exacerbation Other dyspnea and respiratory abnormality Chronic obstructive bronchitis Obstructive chronic bronchitis without exacerbation Other dyspnea and respiratory abnormality documented in this encounter Care Teams Naturopathic Oncology Provider Relationship Specialty Start Date End Date Curt Cassidy MD [address] [facility], [facility] [address] [place] [id number] PCP - General 10/10/10 documented as of this encounter
--- OUTSIDE RECORDS SUMMARY | 2024-10-30 01:35 | XMS_ITS | Encounter Summary ---
Author Organization [facility] [place] [address] Care Team Providers Care Grinder Set Up Operator Surface Name Role Phone Curt Cassidy MD Primary Care Provider [phone] Reason for Visit * Reason Onset Date Comments Medication Refill 07/25/2016 Encounter Details Date Type Department Care Team (Late st Contact Info) Description 07/25/2016 Refill [place] [address] Sarah Hill, RN Rheumatoid arthritis(714.0) Social History Tobacco Use Types Packs/Day Years [...] of this encounter Visit Diagnoses Diagnosis Rheumatoid arthritis(714.0) Rheumatoid arthritis documented in this encounter Care Teams Grinder Set Up Operator Surface Relationship Specialty Start Date End Date Curt Cassidy MD [address] [facility], [facility] [address] [place], [place] [id number] PCP - General 10/10/10 documented as of this encounter
--- OUTSIDE RECORDS SUMMARY | 2024-10-30 01:35 | XMS_ITS | Encounter Summary ---
Author Organization [facility] Address [facility] [address] Care Team Providers Care Patternmaker Plaster And Plastic Name Role Phone Curt Cassidy MD Primary Care Provider [phone] Encounter Details Date Type Department Care Team (Late st Contact Info) Description 07/02/2016 2:30 PM EDT Office Visit Occupational Therapy at [facility] [address] [place] [address] Georgette Chaudhary, OT [facility] PHYSICAL MEDICINE & [place] [address] Bilateral hand pain with deformities from RA. Social History Tobacco Use Types Packs/Day Years Used Date Smoking Tobacco: Never Smokeless Tobacco: Never Alcohol Use Standard Drinks/Week Comments No 0 (1 standard drink = 0.6 oz pur e alcohol) Sex and Gender Information Value Date Recorded Sex Assigned at Not on file Gender Identity Not on file Sexual Orientation Not on file documented as of this encounter Progress Notes * Georgette Chaudhary, OT - 07/02/2016 2:30 PM EDT OCCUPATIONAL THERAPY SPLINTING NOTE CERTIFICATION PERIOD: 06.14.16 - 07.26.16 REFERRAL SOURCE: Dr. Thea MD DIAGNOSIS: 1. Bilateral hand pain with deformities from RA. DATE OF INJURY: Ongoing for many years DATE OF SURGERY: 2000 left hand, wrist EIP to EPL transfer, debridement of dorsal wrist 2003- right hand debridement and shaving of ulna NEXT MD FOLLOW UP: 07/02/16 TOTAL TREATMENT TIME: 42 Minutes TIMED CODE TREATMENT TIME: 42 minutes CURRENT HISTORY: Marla Denton is a 60 y.o. year old Right hand dominant female who has rheumatoid arthritis with bilateral hand pain and ulnar drift. She had two custom splints that she wore mostly at night and occasionally during the day for about one year, however, they are not comfortable. Marla Denton is referred to Occupational Therapy for evaluation and treatment to include splinting. She reports that she really likes the splint recently made for the right side. Patient presentstoday to have one fabricated for the left side. CURRENT SYMPTOMS: Patient presents with bilateral swelling at the MCPs with resting flexed positionwith ulnar deviation. She reports that she no longer needs to spend time massaging fingers straightsince wearing the splint. She also has decreased resting ulnar deviation compared to initial splinting visit. See measurements below. FUNCTIONAL LIMITATIONS: Vocational status: Occupation: disabled Shading and coloring- artwork, reading Past: crocheting, playing piano MCP ulnar deviation at rest measured in degrees DIGITS : Right 28/16 Right 8/15/16 Left 8/15/16 Index Finger 20 11 0 Middle Finger 11 5 5 Ring Finger 21 5 5 Small Finger 21 10 0 TREATMENT TODAY: Fabricated left forearm based volar splint with wrist in neutral, MCPs a comfort range of extension, IPs extended, MCPs in neutral with strapping designed to pull prox phalanx radially into neutral position Instructed in splint wear and care, to be worn primarily at night, only as needed during the day ASSESSMENT: Marla Denton has well fitting splint post therapy for the left. Marla Denton has good potential for gains with therapy/splinting. Patient knows to call with any questions or concerns. Short Term Goals (to be met by end of the visit today): Date Goal Met: Today 1. Marla Denton will demonstrate independence with donning and doffing of splint and verbalization of splinting purpose. Goal Status: Meets. Today 2. Marla Denton will be independent with home exercises as evident with demonstration intherapy. Goal Status: Meets PLAN: Marla Denton will continue to wear splints at night and follow up as needed for splint adjustments (X) Marla Denton participated in the evaluation, collaborated on treatment goals, and agrees to the treatment plan . G-Code: Carrying, Moving & Handling Objects Status Modifier CURRENT PROJECTED CJ - At least 20 percent but less than 40 percent impaired, limited or restricted DISCHARGE CJ - At least 20 percent but less than 40 percent impaired, limited or restricted G Code Rationale: This G-Code and these disability modifiers were selected as the primary therapy goal based upon the patient's evaluation including the following functional test(s) No Functional Measure Used. Current ability measures, co-morbidities and clinical judgement were also used to select the disability modifier. Medicare Therapy G-Code Date Tracking: (Update G-Code status every 10 visits or when code changes) 1 2 3 4 5 6 7 8 9 10 documented in this encounter Plan of Treatment Not on file documented as of this encounter Visit Diagnoses Diagnosis Bilateral hand pain with deformities from RA. Pain in limb documented in this encounter Care Teams Patternmaker Plaster And Plastic Relationship Specialty Start Date End Date Curt Cassidy MD [address], [address] [address] PCP - General 10/10/10 documented as of this encounter
--- OUTSIDE RECORDS SUMMARY | 2024-10-30 01:35 | XMS_ITS | Encounter Summary ---
Author Organization [facility] Address [facility] [address] [place] [address] Care Team Providers Care Negative Checker Name Role Phone Curt Cassidy MD Primary Care Provider [phone] Reason for Visit * Reason Comments Dry Eye Encounter Details Date Type Department Care Team (Latest Contact Info) Description 12/04/2017 1:45 PM EST Office [place] [address] Azael Espinosa MD [facility] [place] [place] [address] Sjogren's syndrome with keratoconjunctivitis sicca Social History Tobacco Use Types Packs/Day Years [...] * Patient Instructions* Azael Espinosa MD - 12/04/2017 1:45 PM EST Use eye medications as instructed by Dr. Espinosa during your appointment. For non eye medications not prescribed by the Ophthalmology (Eye) Clinic, please follow up with your PCP (primary care provider) for instructions. Please call the eye clinic, , for any significant changes in vision, new flashes or floaters or eye pain Eye safety is important: please use eye protection during any activities in which you could injury your eyes. documented in this encounter Progress Notes * Azael Espinosa MD - 12/04/2017 1:45 PM EST Encounter Diagnosis Name Primary? Sjogren's syndrome with keratoconjunctivitis sicca Marla Denton is a 62 y.o. 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 RA on immunosuppression (on po pred chronically) no ocular manifestations other than MALIKA, IOP is wnl Trouble reading: Now says reading is good. Plan: PF AT 6 times a day, - Follow up 9months or as needed - Findings and concerns discussed with Marla and she expressed understanding. -Upon Return CEE documented in this encounter Plan of Treatment Not on file documented as of this encounter Visit Diagnoses Diagnosis Sjogren's syndrome with keratoconjunctivitis sicca documented in this encounter Care Teams Negative Checker Relationship Specialty Start Date End Date Curt Cassidy MD [address] [facility] [address] [place] [address] PCP - General 10/10/10 documented as of this encounter
--- OUTSIDE RECORDS SUMMARY | 2024-10-30 01:35 | XMS_ITS | Encounter Summary ---
Author Organization [facility] Address [facility] [place] [address] Care Team Providers Care Flour Broker Name Role Phone Curt Cassidy MD Primary Care Provider [phone] Reason for Visit * Reason Onset Date Comments Questions 06/29/2016 Encounter Details Date Type Department Care Team (Late st Contact Info) Description 06/29/2016 [place]phone [place] [address] Laura Lofton PA [facility] [place] [address] Questions Social History Tobacco Use Types Packs/Day [...] encounter Miscellaneous Notes * Telephone Encounter - Cindy Alejandro RN - 07/09/2016 12:55 PM EDT See 2nd telephone note dated 06/29 * Telephone Encounter - Amalia Callahan - 06/29/2016 12:27 PM EDT Patient calling in today returning Laura's call. She states the voicemail got cut off so she did not get the message. She would like her to call her back. documented in this encounter Plan of Treatment Not on file documented as of this encounter Visit Diagnoses Not on filedocumented in this encounter Care Teams Flour Broker Relationship Specialty Start Date End Date Curt Cassidy MD [address], [place] [id number] PCP - General 10/10/10 documented as of this encounter
--- OUTSIDE RECORDS SUMMARY | 2024-10-30 01:35 | XMS_ITS | Encounter Summary ---
Author Organization [facility] Address [facility] [place] [address] Care Team Providers Care Chief Accounting Officer Name Role Phone Curt Cassidy MD Primary Care Provider [phone] Reason for Visit * Reason Comments Follow-up Encounter Details Date Type Department Care Team (Late st Contact Info) Description 10/14/2017 2:00 PM EST Office [place] [address] Zaki Galdamez MD [facility] [place] [address] Rheumatoid lung disease Social History Tobacco Use [...] as of this encounter Progress Notes * Zaki Galdamez MD - 10/14/2017 2:00 PM EST PULMONARY MEDICINE Follow-up 62 y.o. female with dyspnea on exertion, bilateral pleuritic chest pain, restriction probably due to splinting. Has minimal wheezing of late. Her overall exertional capacity is limited to a great extent by by pain in her hands, shoulders, and pleuritic/costochondral pain. Has history of seronegative rheumatoid disease degenerative joint disease, as well as (?) rheumatoid lung disease. PAST MEDICAL HISTORY: Patient Active Problem List [...] M54.2 ??? Pain in limb M79.609 ??? intermediate (current) use of anticoagulants Z79.01 ??? Left TKA 12 Z96.659 ??? Chronic pain G89.29 ??? Total [...] performed by Mayco Montanez Jr., MD at [facility] MAIN OR ??? SHOULDER SURGERY MEDICATIONS: Current Outpatient Prescriptions Medication Sig Dispense Refill ??? leflunomide (ARAVA) 20 mg Tablet 1 t daily 90 tablet 3 ??? alendronate (FOSAMAX) 70 mg Tablet Take 1 tablet by mouth every 7 days. Take in AM with full glass of water, on an empty stomach. Do not lie down for 30 min. 12 tablet 3 ??? acyclovir (ZOVIRAX) 800 mg Tablet TAKE ONE TABLET BY MOUTH ONCE DAILY 90 tablet 1 ??? atorvastatin (LIPITOR) 20 mg Tablet Take 20 mg by mouth daily. ??? albuterol 90 mcg/actuation HFA Aerosol Inhaler Inhale 2 puffs into the lungs every 4 hours as needed for Wheezing. Use with spacer 1 Inhaler 5 ??? doxycycline (VIBRAMYCIN) 100 mg Capsule TAKE [...] Take 5 mg by mouth daily. ??? Carboxymethylcellulose Sodium [...] mg by mouth 3 times daily.) ??? senna-docusate (PERICOLACE) 8.6-50 mg per tablet [...] ??? ergocalciferol (VITAMIN D) 50,000 unit capsule 12649 unit, PO, once a month (Patient taking differently: 50,000 units PO twice a week) No current facility-administered medications for this visit. ALLERGIES: Iodinated contrast- oral and iv dye; Iodine and iodide containing products; Vancomycin; Infliximab;Wellbutrin [bupropion hcl]; Ms contin [morphine]; Sulfa (sulfonamide antibiotics); Sulfisoxazole; and Sulfisoxazole acetyl PHYSICAL EXAM Last value Range last 24 hrs Temperature Heart Rate Heart Rate: [93] Blood Pressure BP: (143)/(65) Respiratory Rate Resp: -- SpO2 SpO2: [100 %] WDWN 62 y.o. female in NAD. HEENT-NC/AT; unremarkable Neck-supple without masses or, nodes Chest- very quiet BS with crackles at bases bilaterally Heart-Normal rate and rhythm, with slight flow murmer Abdomen-benign without organomegaly or tenderness Extremities-no cyanosis, clubbing, or edema Skin-no rashes or lesions Musculoskeletal-+ MCP swelling, tenderness Neurologic-Nonfocal, without weakness or sensory deficits Lymphatics-unremarkable PFTs were performed today and my interpretation is as follows: FVC of 51% predicted, FEV1 of 55% ofpredicted, FEV1/FVC of 83%. Diffusing capacity of 64% of predicted. The studies are consistent with restriction, no airflow obstruction (normal FEV1/FVC), with slight decrease in diffusing capacity since last study. Her maximum inspiratory mouth pressure was 44% ofpredicted and maximum expiratory mouth pressure was 19% of predicted. The studies strongly suggest neuromuscular weakness as the primary underpinning of her restriction and dyspnea. IMPRESSION: In summary, this is a 62 y.o. female with rheumatoid arthritis, with dyspnea, previous suggestion of airflow obstruction, and with near normal total lung capacity, elevated RV/TLC, near normal diffusing capacity. ECHO was unrevealing, and does not offer an explanation as to why she veryslightly desaturates slightly with exertion. Previously she had had a largely obstructive pattern but that has improved, as has her relative air trapping (inferred indirectly from her spirometry compared to prior). Altogether it is likely that respiratory muscle weakness, along with splinting from her chronic pleuritic chest pain, as well as atelectasis likely explains the borderline desaturation. At present I have recommended no change in her medical regimen, and I will see her back with repeated PFTs in the next few months to be scheduled at a time when she is coming in to see Dr. Sidhu. Greater than 20 min of this 25 minute visit was spent in face to [...] Diagnosis Rheumatoid lung disease Rheumatoid lung Rheumatoid lung disease Rheumatoid lung documented in this encounter Care Teams Chief Accounting Officer Relationship Specialty Start Date End Date Curt Cassidy MD [address] [facility], [facility] [address] [place] [address] PCP - General 10/10/10 documented as of this encounter
--- OUTSIDE RECORDS SUMMARY | 2024-10-30 01:35 | XMS_ITS | Encounter Summary ---
Author Organization [facility] Address [facility] [place] [address] Care Team Providers Care Security Guard Name Role Phone Curt Cassidy MD Primary Care Provider [phone] Reason for Visit * Reason Comments Follow-up Encounter Details Date Type Department Care Team (Late st Contact Info) Description 04/02/2018 12:00 PM EDT Office [place] [address] Zaki Galdamez MD [facility] [place] [address] Rheumatoid lung disease Social History Tobacco Use [...] Sign Reading Time Taken Comments Blood Pressure 129/60 04/02/2018 11:42 AM EDT Pulse 93 04/02/2018 11:42 AM EDT Temperature - - Respiratory Rate 18 04/02/2018 11:42 AM EDT Oxygen Saturation 97% 04/02/2018 11:42 AM EDT Inhaled Oxygen Concentration - - Weight 83.9 kg (185 lb) 04/02/2018 11:42 AM EDT Height 149.1 cm (4' 10.7) 04/02/2018 11:42 AM E DT Body Mass Index 37.75 04/02/2018 11:42 AM EDT documented in this encounter Progress Notes * Zaki Galdamez MD - 04/02/2018 12:00 PM EDT PULMONARY MEDICINE Follow-up 62 y.o. female with dyspnea on exertion, bilateral pleuritic chest pain, restriction probably due to splinting. Recently had total elbow replacement on L, with complications (infection). Had 2nd surgery and is scheduled for 3rd. Resp status is stable, but is not getting around much (in rehab facility). Has history of seronegative rheumatoid disease degenerative [...] M54.2 ??? Pain in limb M79.609 ??? skilled nursing (current) use of anticoagulants Z79.01 ??? Left [...] performed by Mayco Montanez Jr., MD at [facility] MAIN OR ??? SHOULDER SURGERY MEDICATIONS: Current Outpatient Prescriptions Medication Sig Dispense Refill ??? docusate sodium (COLACE) 100 mg Capsule [...] ??? ergocalciferol (VITAMIN D) 50,000 unit capsule 47863 unit, PO, once a month (Patient taking differently: 50,000 units PO twice a week) No current facility-administered medications for this visit. ALLERGIES: Iodinated contrast- oral and iv dye; Iodine and iodide containing products; Vancomycin; Infliximab;Wellbutrin [bupropion hcl]; Ms contin [morphine]; Sulfa (sulfonamide antibiotics); Sulfisoxazole; and Sulfisoxazole acetyl PHYSICAL EXAM Last value Range last 24 hrs Temperature Heart Rate Heart Rate: 93 Heart Rate: [93] Blood Pressure BP: 129/60 BP: (129)/(60) Respiratory Rate Resp: 18 Resp: [18] SpO2 SpO2: 97 % SpO2: [97 %] WDWN 62 y.o. female in NAD. HEENT-NC/AT; unremarkable Neck-supple without masses or, nodes Chest- quiet BS with coarse crackles at bases bilaterally Heart-Normal rate and rhythm, with slight flow murmer Abdomen-benign without organomegaly or tenderness Extremities-no cyanosis, clubbing, or edema Skin-no rashes or lesions Musculoskeletal-+ MCP swelling, tenderness; L elbow wrapped. Neurologic-Nonfocal, without weakness or sensory deficits Lymphatics-unremarkable PFTs were performed today and my interpretation is as follows: FVC of 54% predicted, FEV1 of 53% ofpredicted, FEV1/FVC of 78%. Diffusing capacity of 53% of predicted. TLC of 75%, RV of 109%, The studies are consistent with restriction, no airflow obstruction (normal FEV1/FVC), with slight decrease in diffusing capacity since last study. Her maximum inspiratory mouth pressure was 40% ofpredicted and maximum expiratory mouth pressure was 22% of predicted. The studies strongly suggest neuromuscular weakness as the primary underpinning of her restriction and dyspnea, amd are largely unchanged from prior. IMPRESSION: In summary, this is a 62 y.o. female with rheumatoid arthritis, with mild chronic dyspnea, which hasn't been an issue due to her recent immobility. Her respiratory muscle strength is her major respiratory impairment and her exam is notable for basilar crackles that are likely atelectasis. Discussed using incentive spirometer BID (which she used briefly post-op, but not since. Seeing Dr. Sidhu in May, and hopefully her elbow will be healed by then. F/U 6 months with PFTs. Greater than 20 min of this 25 [...] lung documented in this encounter Care Teams Security Guard Relationship Specialty Start Date End Date Curt Cassidy MD [address], [address] [address] PCP - General 10/10/10 documented as of this encounter
--- OUTSIDE RECORDS SUMMARY | 2024-10-30 01:35 | XMS_ITS | Encounter Summary ---
Author Organization [facility] Address [facility] [place] [address] Care Team Providers Care C Developer Name Role Phone Curt Cassidy MD Primary Care Provider [phone] Reason for Visit * Consultation (Urgent) - Closed Specialty Diagnoses / Procedures Referred By Contac t Referred To Contact Neurology Diagnoses Elbow wound, left, sequela Radha Mckeon, [facility] [place] [address] [facility] [address] [place] [address] Referral ID Status Reason Start Date Expiration Date V isits Requested Visits Authorized [id number] Closed Consult, Test & Treat 05/15/2018 05/15/2019 1 1 Encounter Details Date Type Department Care Team (Latest Contact Info) Description 05/15/2018 2:00 PM EDT Procedure [place] [id number] Dennis Quick MD [facility] [place] [address] Elbow wound, left, sequela; Neuropathy, 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, left; Carpal tunnel syndrome on left Social History Tobacco Use Types Packs/Day Years Used Date Smoking Tobacco: Never Smokeless Tobacco: Never Alcohol Use Standard Drinks/Week Comments No 0 (1 standard drink = 0.6 oz pur e alcohol) Sex and Gender Information Value Date Recorded Sex Assigned at Not on file Gender Identity Not on file Sexual Orientation Not on file documented as of this encounter Progress Notes * Dennis Quick MD - 05/15/2018 2:00 PM EDT Marla Denton referred for EDX studies by Lorie Fuller MD [facility] DR [place] [address] to look for evidence of entrapment neuropathy in left arm. Report scanned into EDH. 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
--- OUTSIDE RECORDS SUMMARY | 2024-10-30 01:35 | XMS_ITS | Encounter Summary ---
Author Organization [facility] Address [facility] [address] [place] [address] Care Team Providers Care Nicker Name Role Phone Curt Cassidy MD Primary Care Provider [phone] Encounter Details Date Type Department Care Team (Latest Contact Info) Description 07/08/2017 1:00 PM EDT Office [place] [address] Rafael Sidhu MD [facility] [place] [address] Rheumatoid arthritis, involving unspecified site, unspecified rheumatoid factor presence; Osteoarthritis of multiple joints, unspecified osteoarthritis type; Thrombophilia; Achilles tendinitis of both lower extremities; Plantar fasciitis, bilateral; Coccygeal pain Social History Tobacco Use Types [...] * Patient Instructions* Rafael Sidhu MD - 07/08/2017 1:00 PM EDT 1. Labs including LFTs, CBC through Dr. Cassidy 2. [place] Dorsal Night Splint Available from [employer] website above or from [employer] [email or web address]/[email or web address]. Sleep on 1 foot for 1 weekor until pain goes away and then switch to other foot. 3. Increase prednisone to 15 mg/d for the remainder of June, then reduce to 10 mg/d thereafter. 4. Call if not doing well 5. Plan follow up with Dr. Galdamez in three months 6. Suggest imaging of coccyx by CT scan in [place], will talk with Curt Cassidy. 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 Typically getting labs through Dr. Cassidy at [place]. Her more recent treatments (last 5 years) [...] Interval History: She comes in today in 6 month f/u. When last seen, her lung issues seemed stable and her chronic joint pain and symptoms were unchanged with reduction in her methadone from 80 mg/d to 60 mg/d. Today, she reports the following. She is currently on Leflunomide and Prednisone 5 mg/d with reduced pain and stiffness in hands and feet with higher dose 1. RA: Hands have been hurting. Worst is pain in heels and feet especially on arising. This seems likely to be recurrence of her past symptoms treated with boot and Achilles injection in 2016. 2. Breathing: F/u with Dr. Galdamez about breathing. Some respirophasic pain, but no major loss of change. Apparently most of her dysfunction seems restrictive due to chest wall pain 3. Left elbow pain: seen in orthopedics will be scheduled by CT-guided injection with ishan Still having chronic coccygeal pain with change [...] osteomyelitic vs cellulitis with RA. 4. DXA ([place] 2004: -1.3 SD low at spine; 1 [...] due to knee ankle and foot pain There were no vitals taken for this visit. HEENT:normal. Neck: little or no motion Joint exam [...] callus, representing either a spur or nodule. Bilateral plantar tenderness Ankles: tender without warmth, wearing a boot on left foot Feet: MTP joints splaying and very tender. Impression: Persistent active RA who has failed every agent but with numerous comorbitidies maintained on prednisone/Arava that does not seem to be working particularly well. Major issues today are her chest wall pain that seems to limit her breathing. Dr. Galdamez has suggested a trial of increased prednisone and given her functional limitation on walk time, I agree. Second, she has persistent synovitis in her hands, but this is hard to evaluate. Third, despite past treatments, she has recurrent Achilles and plantar disease. She has not been tried with dorsal night splinting at night and I think a very conservative chronic approach that she can deploy is the way to go. At the end of her visit, she brought up her chronic coccygeal pain that is not present with sitting, but with change in position from sitting to standing. The pain is in her gluteal cleft and short of mechanical back pain, I have no good explanation or ideas about this. It is not with weight -bearing so I am skeptical that it is sacral. CT would be first attempt to sort this out if it persists Plan: 1. Labs through Dr. Cassidy; Defer to Dr. Cassidy about imaging coccyx by CT scan. 2. Dorsal Night Splinting on feet at night, starting on more symptomatic side for 1 week, then trying other side. 3. Increase prednisone to 15 mg/d for 10-14 days then reduce to 10 mg/d to fashion patternmaker response 4. Return 3 months to assess response to steroids Level 5 F/u visit Rafael Sidhu M.D. Staff Conductor/Engineer documented in this encounter Plan of Treatment Not on file documented as of this encounter Visit Diagnoses Diagnosis Rheumatoid arthritis, involving unspecified site, unspecified rheumatoid factor presence Osteoarthritis of multiple joints, unspecified osteoarthritis type Thrombophilia Other and unspecified coagulation defects Achilles tendinitis of both lower extremities Plantar fasciitis, bilateral Plantar fascial fibromatosis Coccygeal pain Other disorder of coccyx documented in this encounter Care Teams Nicker Relationship Specialty Start Date End Date Curt Cassidy MD [address] [place] [address] PCP - General 10/10/10 documented as of this encounter
--- OUTSIDE RECORDS SUMMARY | 2024-10-30 01:35 | XMS_ITS | Encounter Summary ---
Author Organization [facility] Address [facility] [place] [address] [place] [address] Care Team Providers Care Brush Maker Name Role Phone Curt Cassidy MD Primary Care Provider [phone] Encounter Details Date Type Department Care Team (Late st Contact Info) Description 07/02/2016 1:00 PM EDT Office [place] [address] Rafael Sidhu MD [facility] [place] [address] Rheumatoid arthritis(947.2) Social History Tobacco Use Types Packs/Day Years [...] Sign Reading Time Taken Comments Blood Pressure 124/57 07/02/2016 12:46 PM EDT Pulse 94 07/02/2016 12:46 PM EDT Temperature 36.4 ??C (97.6 ??F) 07/02/2016 12:46 PM E DT Respiratory Rate - - Oxygen Saturation 98% 07/02/2016 12:46 PM EDT Inhaled Oxygen Concentration - - Weight 68.9 kg (152 lb) 07/02/2016 12:46 PM EDT Height 148.6 cm (4' 10.5) 07/02/2016 12:46 PM E DT Body Mass Index 31.23 07/02/2016 12:46 PM EDT documented in this encounter Patient Instructions * Patient Instructions* Rafael Sidhu MD - 07/02/2016 1:00 PM EDT 1. Prednisone 40 mg/d for 2-3 days, then taper every 2-3 days as tolerated back to 5 mg/d 2. Return 3 months or as needed. 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 In January 2013, she had a very complicated admission for what sounds like pyomyositis/cellulitis of left lower extremitywith MRSA that eventually resolved. She had failed [...] caused nausea so Actemra was attempted beginning 1.. At last visit in January not doing well, so that increase to 8 mg/kg was recommended and she was then transitioned to weekly injectable Actemra. Lots of shortness of breath with 6.14.16 PFTS showing Spirometry reveals severe airflow obstruction with concomitant reduction in forced vital capacity. ??Lung volumes demonstrate reduced total lung capacity and elevated residual volume. ??Diffusin g capacity is mildly reduced. ??This constellation of findings suggests a restrictive ventilatory defect with superimposed airflow obstruction. ??Oxygen saturation is normal at rest, and there is borderline oxygen desaturation with ambulation. CT chest same day: 1. Slightly improved inflation but some residual atelectasis. Line no significant degree of fibrosis. 2. Stable 7 mm right lower lobe nodule. Consider follow-up low-dose noncontrastchest CT limited to between the nando and diaphragm in one year. ?? Interval History: She comes in today in 2 month f/u. 1. Pain in left heel: Achilles tendonitis/bursal injection wearing boot. 2. Breathing: F/u with Dr. Galdamez about breathing 3. Joints doing poorly with last sq injection in April 2016 4. Left elbow pain: seen in orthopedics will be scheduled by CT-guided 5. New splints developed for hand volar/ulnar subluxation and loss of extension of hand 6. Forearm and thigh pain bilaterally. She is on Prednisone 5 mg/d 1. Left elbow motion has been compromised [...] Reportedly had very low vitamin D level: Dr. Cassidy has her on vitamin D 200,000 units/week Still taking doxycycline for Staph prophylaxis. No [...] due to nausea 9. TCZ (Actemra) started 1.2013, no response to 4 mg/kg x 3 [...] osteomyelitic vs cellulitis with RA. 4. DXA ([place] 2004: -1.3 SD low at spine; 1 [...] due to left knee pain Blood pressure 124/57, pulse 94, [id number] ??C (97.6 ??F), temperature source Oral, height (!) 148.6 cm (4' 10.5), weight 68.9 kg (152 lb), SpO2 98 %. HEENT:normal. Neck: little or no motion Shoulders: decreased abduction left shoulder, right not [...] SJC/TJC: 6/6 in hands alone, marked synovitis.. Early ulnar deviation of MCP. Her left TKR [...] agent but with numerous comorbitidies maintained on Actemra/Arava that does not seem to be working. Lots of concerns about pulmonary involvement.Lots of issues, but acute tendon insertion pain the greatest today. Will treat with a course of prednisone Plan: 1. Prednisone 40 mg --->5 mg/d over two weeks 2. Return 3 months Level 4 F/u visit Rafael Sidhu M.D. Staff Lacquer Mixer documented in this encounter Plan of Treatment Not on file documented as of this encounter Visit Diagnoses Diagnosis Rheumatoid arthritis(714.0) Rheumatoid arthritis documented in this encounter Care Teams Brush Maker Relationship Specialty Start Date End Date Curt Cassidy MD [address] [facility], [facility] [address] [place] [address] PCP - General 10/10/10 documented as of this encounter
--- OUTSIDE RECORDS SUMMARY | 2024-10-30 01:35 | XMS_ITS | Encounter Summary ---
Author Organization [facility] Address [facility] [place] [address] Care Team Providers Care Heel Caser Name Role Phone Curt Cassidy MD Primary Care Provider [phone] Reason for Referral * Diagnostic Test (Routine) - Closed Specialty Diagnoses / Procedures Referred By Contac t Referred To Contact Radiology Diagnoses Rheumatoid lung disease Procedures CT Chest wo Contrast (Generic) Zaki Galdamez MD [facility] [place] [address] [facility] [place] [address] Referral ID Status Reason Start Date Expiration Date V isits Requested Visits Authorized [id number] Closed Specialty Service Requested 06/25/2017 09/23/2017 1 1 Reason for Visit * Reason Comments Follow-up Encounter Details Date Type Department Care Team (Late st Contact Info) Description 08/08/2016 1:00 PM EDT Office [place] [address] Zaki Galdamez MD [facility] [place] [address] Chronic obstructive bronchitis; Rheumatoid lung disease Social History Tobacco Use [...] Sign Reading Time Taken Comments Blood Pressure 124/66 08/08/2016 1:00 PM EDT Pulse 98 08/08/2016 1:00 PM EDT Temperature - - Respiratory Rate 20 08/08/2016 1:00 PM EDT Oxygen Saturation 97% 08/08/2016 1:00 PM EDT Inhaled Oxygen Concentration - - Weight 68.9 kg (152 lb) 08/08/2016 1:00 PM EDT Height 148.6 cm (4' 10.5) 08/08/2016 1:00 PM ED T Body Mass Index 31.23 08/08/2016 1:00 PM EDT documented in this encounter Progress Notes * Zaki Galdamez MD - 08/08/2016 1:00 PM EDT PULMONARY MEDICINE Follow-up 60 y.o. female with bilateral pleuritic chest pains, started on L, now bilateral. She c/o dyspnea on exertion, occasional wheezing. Has hx of multple PEs. No fevers, rashes. + Hand, knee, shoulder pains. PAST MEDICAL HISTORY: Patient Active Problem [...] J90 ??? Tendonitis, Achilles, left M76.62 Past Surgical History Procedure Laterality Date ??? Hysterectomy, total abdominal ??? Shoulder surgery ??? Pro total knee arthroplasty 11/02/2013 @TOTAL KNEE ARTHROPLASTY performed by Mayco Montanez Jr., MD at [facility] MAIN OR MEDICATIONS: Current Outpatient Prescriptions on File Prior to Visit Medication Sig Dispense Refill ??? acyclovir (ZOVIRAX) 800 mg Tablet Take 1 tablet by mouth daily. 90 tablet 1 ??? predniSONE (DELTASONE) 5 mg Tablet Take 5 mg by mouth daily. ??? alendronate (FOSAMAX) 70 mg Tablet Take 1 tablet by mouth every 7 days. Take in AM with full glass of water, on an empty stomach. Do not lie down for 30 min. 12 tablet 3 ??? doxycycline (VIBRAMYCIN) 100 mg Capsule Take 1 capsule by mouth daily. 90 capsule 3 ??? leflunomide (ARAVA) 20 mg Tablet TAKE ONE TABLET BY MOUTH ONCE DAILY 90 tablet 3 ??? Carboxymethylcellulose Sodium 0.25 [...] ??? ergocalciferol (VITAMIN D) 50,000 unit capsule 64645 unit, PO, once a month (Patient taking differently: 84989 unit, PO, twice a week) No current facility-administered medications on file prior to visit. ALLERGIES: Iodinated contrast media - iv dye; Iodine and iodide containing products; Vancomycin; Infliximab; Wellbutrin [bupropion hcl]; Ms contin [morphine]; Sulfa (sulfonamide antibiotics); Sulfisoxazole; andSulfisoxazole acetyl PHYSICAL EXAM Last value Range last 24 hrs Temperature Heart Rate Heart Rate: 98 Heart Rate: [98] Blood Pressure BP: 124/66 BP: (124)/(66) Respiratory Rate Resp: 20 Resp: [20] SpO2 SpO2: 97 % SpO2: [97 %] WDWN 60 y.o. female in NAD. HEENT-NC/AT; unremarkable Neck-supple without masses or, nodes Chest- quiet BS with faint crackles at bases bilaterally Heart-Normal rate and rhythm, without murmers, gallops, or rubs. Abdomen-benign without organomegaly or tenderness Extremities-no cyanosis, clubbing, or edema Skin-no rashes or lesions Musculoskeletal-+ MCP swelling, tenderness; wearing a boot on L ankle Neurologic-Nonfocal, without weakness or sensory deficits Lymphatics-unremarkable IMPRESSION: In summary, this is a 60 y.o. female with rheumatoid arthritis, with dyspnea, airflow obstruction and pleuritic chest pain. Discussed the relationship between her RA disease activity and her pleuritic pain, as well as a trial of a bronchodilator regimen for her airflow obstruction. I have recommended Symbicort, with a spacer, and discussed proper use of it. F/U in 6- 12 months depending upon how she is doing, with repeat PFTs and chest CT. Greater than 10 min of this 15 minute visit was spent in face to face discussion with the patient regarding the nature of her airfllow obstruction and management thereof. documented in this encounter Plan of Treatment Not on file documented as of this encounter Results * Pulmonary Function Testing (07/12/2017 5:02 PM [...] Pulmonary Medicine Zaki Bui MD PFT ORDERABLES * CT Chest wo Contrast (Generic) (07/08/2017 [...] in the RIGHT lower lobe (series 5 ). The lungs are otherwise clear. The airways [...] obstructive bronchitis Obstructive chronic bronchitis without exacerbation Rheumatoid lung disease Rheumatoid lung Rheumatoid lung disease Rheumatoid lung Rheumatoid lung disease Rheumatoid lung documented in this encounter Care Teams Heel Caser Relationship Specialty Start Date End Date Curt Cassidy MD [address] [place] [address] PCP - General 10/10/10 documented as of this encounter
--- OUTSIDE RECORDS SUMMARY | 2024-10-30 01:35 | XMS_ITS | Encounter Summary ---
Author Organization [facility] Address [facility] [place] [address] Care Team Providers Care Diet Counselor Name Role Phone Curt Cassidy MD Primary Care Provider [phone] Reason for Referral * Consultation (Urgent) - Closed Specialty Diagnoses / Procedures Referred By Contac t Referred To Contact Orthopaedics Diagnoses Elbow wound, left, initial encounter Elbow wound, left Rupert Castro MD [facility] [place] [address] Lorie Fuller MD [facility] [address] Referral ID Status Reason Start Date Expiration Date V isits Requested Visits Authorized [id number] Closed Consult, Test & Treat 04/28/2018 04/28/2019 1 1 Reason for Visit * Reason Comments Advice Only consult for muscle f lap on left elbow/arm * Consultation (Routine) - Closed Specialty Diagnoses / Procedures Referred By Contac t Referred To Contact Plastic Surgery Diagnoses eval and treat non healing open wound of left elbow, possible muscle flap received via fax. Copy on Kathi's desk. Radha Muller APRN [address] [facility] [address] [place] [address] Rupert Castro MD [facility] [place] [address] Referral ID Status Reason Start Date Expiration Date Visits Re quested Visits Authorized [id number] Closed 04/24/2018 04/24/2019 1 1 Encounter Details Date Type Department Care Team (Late st Contact Info) Description 04/28/2018 8:30 AM EDT Office [place] [address] Rupert Castro MD [facility] [place] [address] Elbow wound, left, initial encounter Social History Tobacco Use Types [...] - Inhaled Oxygen Concentration - - Weight 79.4 kg (175 lb) 04/28/2018 8:14 AM EDT p er pt Height 149.9 cm (4' 11) 04/28/2018 8:14 AM EDT Body Mass Index 35.35 04/28/2018 8:14 AM EDT documented in this encounter Patient Instructions * Patient Instructions* Ida Scales - 04/28/2018 8:30 AM EDT Plan: Referral to Orthopaedics - Dr. Alina López AG to wound documented in this encounter Progress Notes * Rupert Castro MD - 04/28/2018 8:30 AM EDT Plastic Surgery Consultation Note MD Curt Ortez MD None CC: Nonhealing elbow wound HPI: Marla Denton is a 62 y.o. [...] via ambulance from [facility]. She is immunosuppressed on Prednisone and is taking Coumadin after a history of pulmonary embolism. Patient Active Problem List Diagnosis Code ??? [...] M54.2 ??? Pain in limb M79.609 ??? exterminator termite (current) use of anticoagulants Z79.01 ??? Left [...] ??? Elbow wound, left, initial encounter S51.002A Past Medical History: Diagnosis Date ??? Allergic state ??? Arthritis ??? Elbow wound, left, initial encounter 04/28/2018 ??? Hypertension ??? Sjogren's syndrome ??? Thyroid disease Past Surgical History: Procedure Laterality Date ??? CERVICAL FUSION ??? HAND TENDON SURGERY ??? HYSTERECTOMY, TOTAL ABDOMINAL ??? PRO TOTAL KNEE ARTHROPLASTY 11/02/2013 @TOTAL KNEE ARTHROPLASTY performed by Mayco Montanez Jr., MD at [facility] MAIN OR ??? SHOULDER SURGERY ??? TOTAL ELBOW ARTHROPLASTY Left 01/2018 Social History Social History ??? Marital status: [...] ??? Not on file Social History Narrative Allergies Allergen Reactions ??? Infliximab Anaphylaxis and [...] to Visit Medication Sig Dispense Refill ??? docusate sodium [...] 1 t daily 90 tablet 3 ??? atorvastatin (LIPITOR) 20 mg [...] ??? ergocalciferol (VITAMIN D) 50,000 unit capsule 36418 unit, PO, once a month (Patient taking differently: 50,000 units PO twice a week) ??? alendronate (FOSAMAX) 70 mg Tablet Take 1 tablet by mouth every 7 days. Take in AM with full glass of water, on an empty stomach. Do not lie down for 30 min. (Patient not taking: Reported on 04/28/2018) 12 tablet 3 ??? albuterol 90 mcg/actuation HFA Aerosol Inhaler Inhale 2 puffs into the lungs every 4 hours as needed for Wheezing. Use with spacer (Patient not taking: Reported on 04/28/2018) 1 Inhaler 5 No current facility-administered medications on file prior to visit. Examination: Ht 149.9 cm (4' 11) Wt 79.4 kg (175 lb) Comment: per pt BMI 35.35 kg/m2 Constitutional: No acute distress. In wheelchair. HEENT: MMM, normocephalic, extra ocular movement intact, sclera: white, no facial abrasions Pulm: symmetric excursion, unlabored, no audible wheeze Cor: pulse regular Abnormal hand posture with swanning of index, middle, and ring finger on left Small finger is abducted, extended at MCP and slightly flexed at PIP Full passive ROM Unable to bring small finger into adduction Able to flex Sensation loss in ulnar distribution of hand Normal median distribution Some hypesthesia in radial distribution Open wound of left elbow, measuring 2 x 3 cm. The lateral aspect undermines 1.5 cm, medially 2 cm ,inferiorly 1.5 cm, superiorly 2.5 cm No hardware in base of wound No surrounding erythema Longitudinal scar above and below the elbow Diagnostic Testing: None on file Impression: Marla Stonel 62 y.o. female patient with nonhealing elbow wound s/p elbow arthoplasty complicated by wound dehiscence. She is immunosuppressed on Predisone and is also on Coumadin. We discussed options for treatment of this contaminated wound, I advised her that her health issues and immunosuppressed status makes surgical treatment challenging. The hardware will likely need to be removal and a soft tissue flap brought in to close the area. We discussed that the wound may not heal without removal of the implant. I spoke with Dr. Mac Mcgill who has been following her for thisissue and he will reach out to Dr. Fuller in Orthopaedics regarding her care. We may plan a coordinated surgery pending on this discussion and the patient's evaluation with Dr. Fuller. Plan: Referral to Orthopaedics - Dr. Fuller To begin Aquasol AG to wound I, Batsheva Scales, have performed the documentation for this encounter in the presence of and actingas a scribe for Dr. Castro. I performed the services which were documented by the scribe, and I agree with the accuracy of the documentation in this encounter. RUPERT CASTRO MD documented in this encounter Plan of Treatment Scheduled Referrals Name Type Priority Associated Diagnoses Order Schedule Referral to Orthopaedics Outpatient Referral Routine Elbow wound, left, initial encounter Ordered: 04/28/2018 documented as of this encounter Visit Diagnoses Diagnosis Elbow wound, left, initial encounter documented in this encounter Care Teams Diet Counselor Relationship Specialty Start Date End Date Curt Cassidy MD [address] [place] [address] PCP - General 10/10/10 documented as of this encounter
--- OUTSIDE RECORDS SUMMARY | 2024-10-30 01:35 | XMS_ITS | Encounter Summary ---
Author Organization [facility] [place] [address] Care Team Providers Care Time Lock Expert Name Role Phone Curt Cassidy MD Primary Care Provider [phone] Reason for Visit * Reason Onset Date Comments Medication Refill 07/18/2017 Encounter Details Date Type Department Care Team (Late st Contact Info) Description 07/18/2017 Ref[place] [address] Matilda Bush MA Social History Tobacco Use [...] on filedocumented in this encounter Care Teams Time Lock Expert Relationship Specialty Start Date End Date Curt Cassidy MD [address] [facility], [facility] [address] [place] [address] PCP - General 10/10/10 documented as of this encounter
--- OUTSIDE RECORDS SUMMARY | 2024-10-30 01:35 | XMS_ITS | Encounter Summary ---
Author Organization [facility] Address [facility] [place] [address] Care Team Providers Care School Photograph Editor Name Role Phone Curt Cassidy MD Primary Care Provider Reason for Visit * Reason Comments Rheumatoid Arthritis Sicca Syndrome (Sjogren's) Encounter Details Date Type Department Care Team (Late st Contact Info) Description 05/24/2017 1:00 PM EDT Office [place] [address] Azael Espinosa MD [facility] [place] [address] Rheumatoid arthritis, involving unspecified site, unspecified rheumatoid factor presence; Corneal neovascularization, unspecified laterality Social History Tobacco Use Types Packs/Day Years [...] * Patient Instructions* Azael Espinosa MD - 05/24/2017 1:00 PM EDT Use eye medications as instructed by Dr. [...] Progress Notes * Azael Espinosa MD - 05/24/2017 1:00 PM EDT Encounter Diagnoses Name Primary? Rheumatoid arthritis, involving unspecified site, unspecified rheumatoid factor presence ??? Corneal neovascularization, unspecified laterality Marla Denton is a 61 y.o. 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 RA on immunosuppression (on po pred chronically) no ocular manifestations other than MALIKA, IOP is wnl Trouble reading: Acuity is good enough for reading, may be symptomatic due to very small bifocal segments and also MALIKA may be exacerbated during reading. Encouraged to try single vision readers and to take breaks when reading and close eyes Plan: PF AT 6 times a day, - Follow up 6 months or as needed - Findings and concerns discussed with Marla and she expressed understanding. Note to Dr. Sidhu -Upon Return epf documented in this encounter Plan of Treatment Not on file documented as of this encounter Visit Diagnoses Diagnosis Rheumatoid arthritis, involving unspecified site, unspecified rheumatoid factor presence Corneal neovascularization, unspecified laterality documented in this encounter Care Teams School Photograph Editor Relationship Specialty Start Date End Date Curt Cassidy MD [address] , [facility] [address] [place] [id number] PCP - General 10/10/10 documented as of this encounter
--- OUTSIDE RECORDS SUMMARY | 2024-10-30 01:35 | XMS_ITS | Encounter Summary ---
Author Organization [facility] Address [facility] [place] [address] Care Team Providers Care Daycare Worker Name Role Phone Curt Cassidy MD Primary Care Provider [phone] Encounter Details Date Type Department Care Team (Late st Contact Info) Description 06/29/2016 [place] [phone] Laura Lofton PA [facility] [place] [address] Social History Tobacco Use Types Packs/Day Years [...] encounter Miscellaneous Notes * Telephone Encounter - Laura Lofton PA - 06/29/2016 10:28 AM EDT I attempted to call Ms. Denton with her shoulder x-ray results, but she wasn't available and her voicemail was full. There is no fracture or dislocation in the right shoulder following her previoushemiarthroplasty. 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 Both shoulders show superior migration of the humeral head consistent with rotator cuff insufficiency. If her shoulder painbecomes more of an issue she would be a candidate for reverse total shoulder arthroplasty. She alsois scheduled to have a fluoroscopy guided injection for her left elbow in the near future. She should follow up with Dr. Fuller if she has any questions or concerns in regards to either her elbow or shoulders. documented in this encounter Plan of Treatment Not on file documented as of this encounter Visit Diagnoses Not on filedocumented in this encounter Care Teams Daycare Worker Relationship Specialty Start Date End Date Curt Cassidy MD [address], [facility] [address] [place] [address] PCP - General 10/10/10 documented as of this encounter
--- OUTSIDE RECORDS SUMMARY | 2024-10-30 01:35 | XMS_ITS | Encounter Summary ---
Author Organization [facility] [place] [address] Care Team Providers Care Supervisor Clam Bed Name Role Phone Curt Cassidy MD Primary Care Provider Encounter Details Date Type Department Care Team (Latest Contact Info) Description 10/14/2017 1:19 PM EST - 10/14/2017 11:59 PM EST Hospital Encounter [place] [address] Chronic obstructive bronchitis; Other dyspnea and respiratory [...] 11/05/2013 ergocalciferol (VITAMIN D) 50,000 unit capsule 43859 unit, PO, once a month 10/23/2010 budesonide-formoteroL (Symbicort) 160-4.5 mcg/actuation HFA Aerosol Inhaler SYMBICORT 160-4.5 MCG/ACT AERO 04/22/2017 11/05/2022 risedronate (ACTONEL) 35 mg Tablet Take 35 mg by mouth every 7 days. 05/01/2016 12/27/2023 leflunomide (ARAVA) 20 mg TabletIndications:Rheu matoid arthritis, [...] as of this encounter Procedure Notes * Rahul Coley MD - 10/14/2017 3:44 PM ESTAssociated Order(s): PULMONARY FUNCTION TEST FEV1 and FVC are decreased with a normal FEV1/FVC ratio. Diffusing capacity uncorrected for hemoglobin is moderately reduced. The MIP and MEP are both markedly reduced. Oxygen saturation on room air at rest was normal. Impression: Moderately severe restrictive defect with decreased diffusing capacity and marked reduction in MIP and MEP. This constellation of findings is suggestive of neuromuscular disease. documented in this encounter Miscellaneous Notes * Addendum Note - Rahul Coley MD - 10/14/2017 4:13 PM ESTEncounter addended by: Rahul Coley MD on: 10/14/2017 4:13 PM
Actions taken: Sign clinical note documented in this encounter Plan of Treatment Not on file documented as of this encounter Procedures Procedure Name Priority Date/Time Associated Diagnosis Comments COMMON PULMONARY FUNCTION TEST Routine 10/14/2017 4:13 PM EST Chronic obstructive bronchitis Other dyspnea and respiratory abnormality documented in this encounter Results * Pulmonary [...] neuromuscular disease. Zaki Bui MD PFT ORDERABLES documented in this encounter Visit Diagnoses Diagnosis Chronic obstructive bronchitis Obstructive chronic bronchitis without exacerbation Other dyspnea and respiratory abnormality documented in this encounter Care Teams Supervisor Clam Bed Relationship Specialty Start Date End Date Curt Cassidy MD [address], [facility] 3 [place] [address] PCP - General 10/10/10 documented as of this encounter
--- OUTSIDE RECORDS SUMMARY | 2024-10-30 01:35 | XMS_ITS | Encounter Summary ---
Author Organization [facility] Address [facility] [place] [address] Care Team Providers Care Drafter Structural Name Role Phone Curt Cassidy MD Primary Care Provider [phone] Reason for Visit * Reason Comments Medication Refill Encounter Details Date Type Department Care Team (Late st Contact Info) Description 01/21/2018 [place] [address] Rafael Sidhu MD [facility] [place] [address] Social History Tobacco Use Types Packs/Day Years [...] on filedocumented in this encounter Care Teams Drafter Structural Relationship Specialty Start Date End Date Curt Cassidy MD [address] [facility], [facility] 3 [place] [address] PCP - General 10/10/10 documented as of this encounter
--- OUTSIDE RECORDS SUMMARY | 2024-10-30 01:36 | XMS_ITS | Encounter Summary ---
Author Organization [facility] Address [facility] [place] [address] Care Team Providers Care Heater Mechanic Name Role Phone Curt Cassidy MD Primary Care Provider [phone] Reason for Visit * Reason Onset Date Comments Medication Refill 06/13/2016 Encounter Details Date Type Department Care Team (Late st Contact Info) Description 06/13/2016 [place] [address] Rafael Sidhu MD [facility] [place] [address] Social History Tobacco Use Types Packs/Day Years [...] on filedocumented in this encounter Care Teams Heater Mechanic Relationship Specialty Start Date End Date Cutr Cassidy MD [address] [facility], [facility] 3 [place] [address] PCP - General 10/10/10 documented as of this encounter
--- OUTSIDE RECORDS SUMMARY | 2024-10-30 01:36 | XMS_ITS | Encounter Summary ---
Author Organization [facility] Address [facility] [place] [address] Care Team Providers Care Emergency Veterinary Assistant Name Role Phone Curt Cassidy MD Primary Care Provider Encounter Details Date Type Department Care Team (Latest Contact Info) Description 06/28/2016 10:31 AM EDT - 06/28/2016 2:58 PM EDT Hospital Encounter XRay at [address] [place] [address] Lorie Fuller MD [facility] [place] [address] Left elbow pain Discharge Disposition: Home Social History Tobacco Use [...] 11/05/2013 ergocalciferol (VITAMIN D) 50,000 unit capsule 26517 unit, PO, once a month 10/23/2010 risedronate (ACTONEL) 35 mg Tablet Take 35 mg by mouth every 7 days. 05/01/2016 12/27/2023 predniSONE (DELTASONE) 5 mg Tablet Take 7.5 [...] 3 times daily (with meals). 11/05/2013 04/02/2018 gabapentin (NEURONTIN) 300 mg capsule Take 3 capsules by mouth nightly. 11/05/2013 07/02/2016 senna-docusate (PERICOLACE) 8.6-50 mg per tablet Take 1-4 tablets by mouth 2 times daily. 11/05/2013 04/02/2018 zolpidem (AMBIEN) 10 mg tablet Take 1 tablet by mouth nightly as needed. 11/05/2013 02/25/2023 Psyllium Seed-Sucrose (METAMUCIL) Powd 1 Tsp, PO, Three times daily 10/23/2010 01/07/2017 documented as of this encounter Plan of Treatment Not on file documented as of this encounter Procedures Procedure Name Priority Date/Time Associated Diagnosis Comments XR ELBOW 3 VIEWS LEFT (GENERIC) Routine 06/28/2016 11:06 AM EDT Left elbow pain documented in this encounter Results * XR Elbow 3 View Complete Left (GENERIC) (06/28/2016 11:06 AM EDT) Anatomical Region Laterality Modality Elbow Left Digital Radiogra phy Impressions 06/28/2016 11:43 AM EDT 1. ??Degenerative arthropathy of the left elbow is present. 2. ??A small joint effusion is seen. If there is a history of trauma, the presence of an occult fracture should be considered. Alternatively, this may be due to to inflammation related to the arthropathy. Narrative 06/28/2016 11:43 AM EDT EXAMINATION: XR ELBOW 3 VIEW COMPLETE LEFT CLINICAL HISTORY: L elbow pain TECHNIQUE: AP, oblique and lateral of the left elbow. COMPARISON: None FINDINGS: Joint spaces of the left elbow are narrowed. Marginal osteophytes are present. No fracture is seen. There is the suggestion of a small joint effusion. Procedure Note Roman Rosenthal MD - 06/28/2016 EXAMINATION: XR ELBOW 3 VIEW COMPLETE LEFT CLINICAL HISTORY: L elbow pain TECHNIQUE: AP, oblique and lateral of the left elbow. COMPARISON: None FINDINGS: Joint spaces of the left elbow are narrowed. Marginal osteophytes arepresent. No fracture is seen. There is the suggestion of a small joint effusion. IMPRESSION 1. Degenerative arthropathy of the left elbow is present. 2. A small joint effusion is seen. If there is a history of trauma, the presence of an occult fracture should be considered. Alternatively, thismay be due to to inflammation related to the arthropathy. Lorie Fuller MD IMG DX ORDERABLES documented in this encounter Visit Diagnoses Diagnosis Left elbow pain Pain in joint, upper arm documented in this encounter Care Teams Emergency Veterinary Assistant Relationship Specialty Start Date End Date Curt Cassidy MD [address] [facility], [facility] 3 [place] [address] (work) PCP - General 10/10/10 documented as of this encounter
--- OUTSIDE RECORDS SUMMARY | 2024-10-30 01:36 | XMS_ITS | Encounter Summary ---
Author Organization [facility] Address [facility] [place] [address] Care Team Providers Care Ethanol Operator Name Role Phone Curt Cassidy MD Primary Care Provider [phone] Reason for Visit * Reason Comments Dry Eye Sicca Syndrome (Sjogren's) Rheumatoid Arthritis Encounter Details Date Type Department Care Team (Late st Contact Info) Description 10/26/2015 1:45 PM EST Office [place] [address] Azael Espinosa MD [facility] [place] [place] [address] Keratitis; Corneal neovascularization, bilateral Social History Tobacco Use Types Packs/Day Years [...] * Patient Instructions* Azael Espinosa MD - 10/26/2015 1:57 PM EST Use eye medications as instructed by Dr. Espinosa during your appointment. For non eye medications not prescribed by the Ophthalmology (Eye) Clinic, please follow up with your PCP (primary care provider) for instructions. Please call the eye clinic, [phone], for any significant changes in vision, new flashes or floaters or eye pain \ documented in this encounter Progress Notes * Azael Espinosa MD - 10/26/2015 1:52 PM EST Encounter Diagnoses Name Primary? Keratitis ??? Corneal neovascularization, bilateral Marla Denton is a 60 y.o. 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 Symptoms have improved and stopping restasis OU and less PEK and improved vision over presentation New perilimbal infiltrate OS with intact epith: looks like staph marginal disease, try a course of tdex tid OS Plan: PF AT 6 times a day, Tdex tid OS - Follow up 1 wks or as needed - Findings and concerns discussed with Marla and she expressed understanding. Note to Dr. Sidhu -Upon Return IOP MR - gabby if not BCVA of 20/20 documented in this encounter Plan of Treatment Not on file documented as of this encounter Visit Diagnoses Diagnosis Keratitis Unspecified keratitis Corneal neovascularization, bilateral documented in this encounter Care Teams Ethanol Operator Relationship Specialty Start Date End Date Curt Cassidy MD [address], [facility] 3 [place] [address] PCP - General 10/10/10 documented as of this encounter
--- OUTSIDE RECORDS SUMMARY | 2024-10-30 01:36 | XMS_ITS | Encounter Summary ---
Author Organization [facility] Address [facility] [address] [place] [id number] Care Team Providers Care Loan Processing Supervisor Name Role Phone Curt Cassidy MD Primary Care Provider [phone] Reason for Referral * Consultation (Routine) - Closed Specialty Diagnoses / Procedures Referred By Contac t Referred To Contact Orthopaedics Diagnoses Pain in left elbow Pain in left elbow Rafael Sidhu MD [facility] [place] [place] [address] Lorie Fuller MD [facility] [place] [address] Referral ID Status Reason Start Date Expiration Date V isits Requested Visits Authorized [id number] Closed Consult, Test & Treat 04/30/2016 04/30/2017 1 1 * Occupational Therapy (Routine) - Closed Specialty Diagnoses / Procedures Referred By Contac t Referred To Contact Occupational Therapy Diagnoses Ulnar deviation of finger of right hand MCP subluxation, 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 Rafael Sidhu MD [facility] [place] [address] [facility] [address] [place] [address] Referral ID Status Reason Start Date Expiration Date V isits Requested Visits Authorized [id number] Closed Evaluate and Treat 04/30/2016 04/30/2017 1 1 * Consultation (Routine) - Closed Specialty Diagnoses / Procedures Referred By Keila vargas Referred To Contact Orthopaedics Diagnoses Inflammatory heel pain, left Left heel pain Rafael Sidhu MD [facility] [place] [address] Mindy Murillo DPM [facility] [place] [address] Referral ID Status Reason Start Date Expiration Date V isits Requested Visits Authorized [id number] Closed Consult, Test & Treat 04/30/2016 04/30/2017 1 1 Encounter Details Date Type Department Care Team (Late st Contact Info) Description 04/30/2016 1:30 PM EDT Office Visit [place] [address] Rafael Sidhu MD [facility] [place] [address] Rheumatoid arthritis(714.0); Inflammatory heel pain, left; ABDULLAHI (dyspnea on exertion); Pain in left elbow; Ulnar deviation of finger of right hand; MCP subluxation, 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 Social History Tobacco Use Types Packs/Day [...] Sign Reading Time Taken Comments Blood Pressure 136/73 04/30/2016 1:32 PM EDT Pulse 87 04/30/2016 1:32 PM EDT Temperature 36.4 ??C (97.6 ??F) 04/30/2016 1:32 PM ED T Respiratory Rate - - Oxygen Saturation 100% 04/30/2016 1:32 PM EDT Inhaled Oxygen Concentration - - Weight - - Height 147.3 cm (4' 10) 04/30/2016 1:32 PM EDT Body Mass Index - - documented in this encounter Patient Instructions * Patient Instructions* Rafael Sidhu MD - 04/30/2016 1:59 PM EDT 1. Await pulmonary evaluation 2. Stop Actemra 3. Refer Podiatry and Orthopedics for calcaneal and elbow pain 4. Contact Dr. Cassidy regarding labs 5. Discuss subsequent treatment based on evaluations 6. X-ray left foot and heel today documented in this encounter Progress Notes * Rafael Sidhu MD - 04/30/2016 1:35 PM EDT Marla Denton is a 60-year-old [...] was then transitioned to weekly injectable Actemra. Interval History: She comes in today in 4 month f/u. Today she is also undergoing pulmonary evaluation of the dyspnea and hypoxemia that evolved this past winter. It has been associated with pleuritic pain that is interscapular in location. PFTS show findings consistent with poor effort or poorly calibrated machinery. CT scan of chest showed little or no findings except for a 6 mm nodule and someatelectasis. She had a repeat CT today and is having PTs. There are multiple issues in the context of weekly TCZ and leflunomide 20 mg/d not working in termsof controlling pain and stiffness. There may be some concern about adherence as her CRP was elevated at Dr. Cassidy's office this past winter. She is on Prednisone 7.5 mg/d 1. Left elbow motion has been [...] osteomyelitic vs cellulitis with RA. 4. DXA ([place] 2004: -1.3 SD low at spine; 1 [...] a cane due to left knee pain Height (!) 147.3 cm (4' 10). HEENT:normal. Neck: little or no motion Shoulders: decreased abduction left shoulder, right not tested due to pain. Elbows: no longer had tenderness of entire dorsal compartment of right right forearm up to the lateral epicondyle. The elbow moves much better. Left now has a 30 degree flexion contracture, much worse than 4 months ago. Wrists unimpressive for synovitis, but motion poor Bilateral CMC tenderness. Hands: SJC/TJC: 04/23 in hands alone, marked synovitis.. Early ulnar deviation of MCP. Her left TKR is well healed and there is diffuse swelling to the dorsum of the foot. Left Achilles very tender to the touch at the site of a callus, representing either a spur or nodule. Ankles: tender without warmth. Feet: MTP joints splaying and very tender. Impression: Persistent active RA who has failed every agent but with numerous comorbitidies maintained on Actemra/Arava that does not seem to be working. Lots of concerns about pulmonary involvement Plan: 1. Await pulmonary evaluation 2. Stop Actemra 3. Refer Podiatry and Orthopedics for calcaneal and elbow pain 4. Contact Dr. Cassidy regarding labs 5. Discuss subsequent treatment based on evaluations 6. X-ray left foot and heel today 7. Discuss with Dr. Cassidy recent labs and inquire for copy Level 5 F/u visit Rafael Sidhu M.D. Staff Cover Making Machine Operator documented in this encounter Plan of Treatment Scheduled Referrals Name Type Priority Associated Diagnoses Order Schedule Referral to Podiatry Outpatient Referral Routine Inflammatory heel pain, left Ordered: 04/30/2016 Referral to Occupational Therapy Outpatient Referral Routine Ulnar deviation of finger of right hand MCP subluxation, 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 Ordered: 04/30/2016 Referral to Orthopaedics Outpatient Referral Routine Pain in left elbow Ordered: 04/30/2016 documented as of this encounter Results * XR Foot Minimum 3 Views Left (GENERIC) (06/28/2016 10:55 AM EDT) Anatomical Region Laterality Modality Foot Left Digital Radiogra phy Impressions 06/28/2016 1:22 PM EDT Stable erosions in fourth and fifth metatarsal heads. Stable calcaneal enthesophyte. Narrative 06/28/2016 1:22 PM EDT EXAMINATION: XR FOOT MINIMUM 3 VIEWS LEFT CLINICAL HISTORY: severe left heel pain hx of rheumatoid arthritis TECHNIQUE: AP, lateral and oblique LEFT foot COMPARISON: 06/15/2013 FINDINGS: There is no interval change. Again noted are erosions in the fourth and fifth metatarsal heads and a calcaneal enthesophyte at the insertion site of the Achilles tendon. The calcaneus otherwise appears normal. Procedure Note Rafael Mello MD - 06/28/2016 EXAMINATION: XR FOOT MINIMUM 3 VIEWS LEFT CLINICAL HISTORY: severe left heel pain hx of rheumatoid arthritis TECHNIQUE: AP, lateral and oblique LEFT foot COMPARISON: 06/15/2013 FINDINGS: There is no interval change. Again noted are erosions in the fourth andfifth metatarsal heads and a calcaneal enthesophyte at the insertion site ofthe Achilles tendon. The calcaneus otherwise appears normal. IMPRESSION Stable erosions in fourth and fifth metatarsal heads. Stable calcaneal enthesophyte. Rafael Sidhu MD IMG DX ORDERABLES documented in this encounter Visit Diagnoses Diagnosis Rheumatoid arthritis(714.0) Rheumatoid arthritis Inflammatory heel pain, left ABDULLAHI (dyspnea on exertion) Other dyspnea and respiratory abnormality Pain in left elbow Pain in joint, upper arm Ulnar deviation of finger of right hand MCP subluxation, 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 Inflammatory heel pain, left documented in this encounter Care Teams Loan Processing Supervisor Relationship Specialty Start Date End Date Curt Cassidy MD [address], [address] [address] PCP - General 10/10/10 documented as of this encounter
--- OUTSIDE RECORDS SUMMARY | 2024-10-30 01:36 | XMS_ITS | Encounter Summary ---
[place] [address] Care Team Providers Care Ingot Supervisor Name Role Phone Curt Cassidy MD Primary Care Provider [phone] Encounter Details Date Type Department Care Team (Latest Contact Info) Description 08/22/2015 4:30 PM EDT Laboratory Appointment Lab [address] [place] [address] Rheumatoid arthritis(714.0) Social History Tobacco Use Types [...] Priority Date/Time Associated Diagnosis Comments HEMOGRAM Routine 08/22/2015 4:51 PM EDT Rheumatoid arthritis(714.0) DIFFERENTIAL, AUTOMATED Routine 08/22/2015 4:51 PM EDT Rheumatoid arthritis(714.0) CBC (WITH DIFF) Routine 08/22/2015 4:51 PM EDT Rheumatoid arthritis(714.0) CRP, CARDIAC RISK (HS CRP) Routine 08/22/2015 4:51 PM EDT Rheumatoid arthritis(714.0) COMPREHENSIVE METABOLIC PANEL Routine 08/22/2015 4:51 PM EDT Rheumatoid arthritis(714.0) documented in this encounter Results * Differential, Automated (08/22/2015 4:51 PM EDT) Neutrophil % 59.1 % CERNER MILLENNIUM Neutrophil Absolute 5.05 1.50 - 6.30 x10(3)/mcL CERNER MILLENNIUM Lymph % 29.8 % CERNER MILLENNIUM Lymphocytes Abs 2.5 1.0 - 3.6 x10(3)/mcL CERNER MILLENNIUM Monocyte % 8.7 % CERNER MILLENNIUM Monocyte Abs 0.7 0.2 - 1.0 x10(3)/mcL CERNER MILLENNIUM Eos % 1.9 % CERNER MILLENNIUM Eosinophils Abs 0.2 0.0 - 0.5 x10(3)/mcL CERNER MILLENNIUM Basophil % 0.4 % CERNER MILLENNIUM Baso Absolute 0.0 0.0 - 0.2 x10(3)/mcL CERNER MILLENNIUM Immature Gran % 0.10 % CERN ER MILLENNIUM Comment: Immature granulocytes(IG's)percentage and absolute count will include metamyelocytes, myelocytes, and promyelocytes. Blood smears from CBCs yielding IG's will be scanned manually for concordance. If this scan disagrees with the automated IG or if promyelocytes are noted, a manual differential will be performed. Immature Gran Absolute 0.01 0.00 - 0.05 x10(3)/mcL CERNER MILLENNIUM Blood specimen (specimen) 08/22/2015 4:51 PM EDT 08/22/2015 4:58 PM EDT Narrative Resulting Agency Comment Spec In Lab Rafael Sidhu MD HEMATOLOGY ORDERABLE S CERNER MAYLINENNIUM * (ABNORMAL) Hemogram (08/22/2015 4:51 PM EDT) White Blood Cell 8.5 4.0 - 10.0 x10(3)/mc L CERNER MILLENNIUM Red Blood Cell 4.26 3.93 - 5.22 x10(6)/mc L CERNER MILLENNIUM Hemoglobin 12.6 11.2 - 15.7 gm/dL CERNER MILLENNIUM Hematocrit 39.3 34.0 - 45.0 % CERNER MILLENNIUM Mean Cell Volume 92.3 79.0 - 94.0 fL CERNER MILLENNIUM Mean Cell Hemoglobin 29.6 26.6 - 32.2 pg CERNER MILLENNIUM Mean Cell Hemoglobin Concentration 32.1 32.0 - 36.5 gm/dL CERNER MILLENNIUM Platelet 335 145 - 370 x10(3)/mc L CERNER MILLENNIUM RDW Standard Deviation 48.5(H) 35.0 - 46.0 fL CERNER MILLENNIUM RDW coefficient of variation 14.3 10.9 - 14.4 % CERNER MILLENNIUM Mean Platelet Volume 9.6 9.0 - 12.0 fL CERNER MILLENNIUM Blood specimen (specimen) 08/22/2015 4:51 PM EDT 08/22/2015 4:58 PM EDT Narrative Resulting Agency Comment Spec In Lab Rafael Sidhu MD HEMATOLOGY ORDERABLE S CERGRACIELA CARLISLEENNIUM * High Sensitivity CRP (08/22/2015 4:51 PM EDT) C-Reactive Protein High Sensitivity 25.6 mg/L CERNER MILLENNIUM Comment: Interpretations: 1) For accurate cardiac risk assessment, the average of 2 values >2 weeks apart should be obtained (ref 1&2). A value >10 mg/L indicates an inflammatory condition, concentrations >10 mg/L should not be used for cardiac risk assessment. ?<1.0 mg/L: low risk ?1.0 - 3.0 mg/L: moderate risk ?>3.0 mg/L: high risk groups for future cardiovascular events 2) The general reference range of apparently healthy individuals using this test is <5.0 mg/L (derived from the test package insert) References: 1. Maddie RIVERA et. al. ??AHA/CDC Scientific Statement: Markers of Inflammation and Cardiovascular Disease. ??Circulation 2003; 107:499-511 2. Ridsoha PM. ??Clinical applications of C-reactive protein for cardiovascular disease detection and prevention. ??Circulation 2003; 107:363-369 Blood specimen (specimen) 08/22/2015 4:51 PM EDT 08/22/2015 4:58 PM EDT Narrative Resulting Agency Comment Spec In Lab Rafael Sidhu MD CHEMISTRY ORDERABLES CERNER MILLENNIUM * (ABNORMAL) Comprehensive metabolic panel (non-fasting) (08/22/2015 4:51 PM EDT) [facility] Glucose 81 65 - 199 mg/dL CERNER MILLENNIUM Comment:Diabetes: >=200 mg/d L plus symptoms Blood Urea Nitrogen 9 8 - 18 mg/dL CERNER MILLENNIUM Creatinine 0.83 0.70 - 1.20 mg/dL CERNER MILLENNIUM Comment: Please note that the pediatric reference intervals supplied above were not validated at [facility]. Results from pediatric patients should be interpreted in conjunction to the patient's age, height and muscle mass. Sodium 137 135 - 145 mmol/L CERNER MILLENNIUM Potassium 4.3 3.5 - 5.0 mmol/L CERNER MILLENNIUM Comment: Please note: ??Patients with WBC >100,000 may have falsely elevated Potassium levels. ??For accurate Potassium quantification in these patients send serum separator tube (gold top) for subsequent determinations. ??Contact the Clinical Chemistry Laboratory if there are any questions. Chloride 97(L) 98 - 107 mmol/L CERNER MILLENNIUM Carbon Dioxide 30 22 - 31 mmol/L CERNER MILLENNIUM Anion Gap 10 5 - 15 mmol/L CERNER MILLENNIUM Calcium 9.3 8.5 - 10.5 mg/dL CERNER MILLENNIUM Protein, Total 8.7(H) 6.1 - 8.0 gm/dL CERNER MILLENNIUM Albumin 4.1 3.2 - 5.2 gm/dL CERNER MILLENNIUM Aspartate Aminotransferase 16 0 - 30 unit/L CERNER MILLENNIUM Alanine Aminotransferase 11 0 - 30 unit/L CERNER MILLENNIUM Alkaline Phosphatase 135(H) 40 - 104 unit/L CERNER MILLENNIUM Bilirubin, Total 0.4 0.2 - 1.3 mg/dL CERNER MILLENNIUM Bilirubin, Direct 0.1 0.0 - 0.3 mg/dL CERNER MILLENNIUM Est Glomerular Filtration Rate >60 >=60 [facility] Comment: This estimated GFR (eGFR) value was calculated using the MDRD equation which has been validated on patients between the ages of 18 and 70. The MDRD should not be used to assess kidney function in patients < 18 years of age or in patients with extremes of body mass, or in patients with acute kidney failure. This value should be multiplied by 1.2 for patients. For further information please copy and paste the following links into your internet browser. http://Tricycle/DHnkdep http://Tricycle/DHMCnkf Blood specimen (specimen) 08/22/2015 4:51 PM EDT 08/22/2015 4:58 PM EDT Narrative Resulting Agency Comment Spec In Lab Rafael Sidhu MD CHEMISTRY ORDERABLES [facility] documented in this encounter Visit Diagnoses Diagnosis Rheumatoid arthritis(714.0) Rheumatoid arthritis documented in this encounter Care Teams Ingot Supervisor Relationship Specialty Start Date End Date Curt Cassidy MD [address] [facility], [place] [address] PCP - General 10/10/10 documented as of this encounter
--- OUTSIDE RECORDS SUMMARY | 2024-10-30 01:36 | XMS_ITS | Encounter Summary ---
Author Organization [facility] Address [facility] [place] [address] Care Team Providers Care Office Administration Instructor Name Role Phone Curt Cassidy MD Primary Care Provider [phone] Reason for Visit * Reason Comments Medication Refill Encounter Details Date Type Department Care Team (Late st Contact Info) Description 08/25/2015 Refill [place] [address] Rafael Sidhu MD [facility] [place] [address] Social History Tobacco Use Types Packs/Day Years [...] on filedocumented in this encounter Care Teams Office Administration Instructor Relationship Specialty Start Date End Date Curt Cassidy MD [address] [facility], [facility] 3 [place] [address] PCP - General 10/10/10 documented as of this encounter
--- OUTSIDE RECORDS SUMMARY | 2024-10-30 01:36 | XMS_ITS | Encounter Summary ---
Author Organization [facility] Address [facility] [address] [place] [address] Care Team Providers Care Surgery Tech Name Role Phone Curt Cassidy MD Primary Care Provider Reason for Visit * Reason Comments Sicca Syndrome (Sjogren's) 4 month f/u Eye Pain OS > OD, 5/10 Red Eye OU Encounter Details Date Type Department Care Team (Late st Contact Info) Description 05/11/2016 12:45 PM EDT Office [place] [address] Azael Espinosa MD [facility] [place] [address] Keratitis; Sjogrens syndrome Social History Tobacco Use Types Packs/Day Years [...] * Patient Instructions* Azael Espinosa MD - 05/11/2016 1:56 PM EDT Use eye medications as instructed by Dr. Espinosa during your appointment. For non eye medications not prescribed by the Ophthalmology (Eye) Clinic, please follow up with your PCP (primary care provider) for instructions. Please call the eye clinic, [phone], for any significant changes in vision, new flashes or floaters or eye pain documented in this encounter Progress Notes * Azael Espinosa MD - 05/11/2016 1:55 PM EDT Encounter Diagnoses Name Primary? Keratitis ??? Sjogrens syndrome Marla Denton is a 60 y.o. 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 Active RA on immunosuppression no ocular manifestations other than MALIKA Plan: PF AT 6 times a day, - Follow up 6 months or as needed - Findings and concerns discussed with Marla and she expressed understanding. Note to Dr. Sidhu -Upon Return epf documented in this encounter Plan of Treatment Not on file documented as of this encounter Visit Diagnoses Diagnosis Keratitis Unspecified keratitis Sjogrens syndrome Sicca syndrome documented in this encounter Care Teams Surgery Tech Relationship Specialty Start Date End Date Curt Cassidy MD [address] , [address] [address] PCP - General 10/10/10 documented as of this encounter
--- OUTSIDE RECORDS SUMMARY | 2024-10-30 01:36 | XMS_ITS | Encounter Summary ---
Author Organization [facility] Address [facility] [place] [address] Care Team Providers Care Customer Quality Engineer Name Role Phone Curt Cassidy MD Primary Care Provider [phone] Reason for Visit * Reason Comments Keratitis 2 wk re check Encounter Details Date Type Department Care Team (Late st Contact Info) Description 11/10/2015 12:45 PM EST Office [place] [address] Azael Espinosa MD [facility] [place] [address] [place] [address] Keratitis; Sjogrens syndrome; Corneal neovascularization, unspecified laterality Social History Tobacco [...] * Patient Instructions* Azael Espinosa MD - 11/10/2015 1:27 PM EST Use eye medications as instructed by Dr. Espinosa during your appointment. For non eye medications not prescribed by the Ophthalmology (Eye) Clinic, please follow up with your PCP (primary care provider) for instructions. Please call the eye clinic, [phone], for any significant changes in vision, new flashes or floaters or eye pain v documented in this encounter Progress Notes * Azael Espinosa MD - 11/10/2015 1:26 PM EST Encounter Diagnoses Name Primary? Keratitis ??? Sjogrens syndrome ??? Corneal neovascularization, unspecified laterality Marla Denton is a 60 y.o. 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 less PEK and improved vision over presentation New perilimbal infiltrate OS with intact epith: resolved to scar with tdex, stop for now Plan: PF AT 6 times a day, Tdex STOP - Follow up 6-9 wks or as needed - Findings and concerns discussed with Marla and she expressed understanding. Note to Dr. Sidhu -Upon Return IOP MR - gabby if not BCVA of 20/20 documented in this encounter Plan of Treatment Not on file documented as of this encounter Visit Diagnoses Diagnosis Keratitis Unspecified keratitis Sjogrens syndrome Sicca syndrome Corneal neovascularization, unspecified laterality documented in this encounter Care Teams Customer Quality Engineer Relationship Specialty Start Date End Date Curt Cassidy MD [address], [facility] [address] [place] [address] PCP - General 10/10/10 documented as of this encounter
--- OUTSIDE RECORDS SUMMARY | 2024-10-30 01:36 | XMS_ITS | Encounter Summary ---
Author Organization [facility] [place] [address] Care Team Providers Care Scuba Dive Training Instructor Name Role Phone Curt Cassidy MD Primary Care Provider [phone] Reason for Referral * Consultation (Routine) - Closed Specialty Diagnoses / Procedures Referred By Contac t Referred To Contact Ophthalmology Diagnoses Keratitis sicca Rafael Sidhu MD [facility] [place] [address] [place] [address] [facility] [address] [place] [address] Referral ID Status Reason Start Date Expiration Date V isits Requested Visits Authorized [id number] Closed Consult, Test & Treat 03/14/2015 03/13/2016 3 3 * Occupational Therapy (Routine) - Closed Specialty Diagnoses / Procedures Referred By Contjen t Referred To Contact Occupational Therapy Diagnoses Rheumatoid arthritis(714.0) Rafael Sidhu MD [facility] [place] [address] [place] [address] [facility] [place] [place] [address] Referral ID Status Reason Start Date Expiration Date V isits Requested Visits Authorized [id number] Closed Evaluate and Treat 03/14/2015 03/13/2016 12 12 Reason for Visit * Reason Comments Follow-up Encounter Details Date Type Department Care Team (Late st Contact Info) Description 03/14/2015 11:45 AM EDT Follow-Up Rheumatology at [facility] [place] [address] Rafael Sidhu MD [facility] [place] [address] Rheumatoid arthritis(714.0); Keratitis sicca Discharge Disposition: Home Social History Tobacco Use [...] Sign Reading Time Taken Comments Blood Pressure 140/79 03/14/2015 11:51 AM EDT Pulse 85 03/14/2015 11:51 AM EDT Temperature - - Respiratory Rate 16 03/14/2015 11:51 AM EDT Oxygen Saturation - - Inhaled Oxygen Concentration - - Weight 73.5 kg (162 lb) 03/14/2015 11:51 AM EDT Height 148.6 cm (4' 10.5) 03/14/2015 11:51 AM E DT Body Mass Index 33.28 03/14/2015 11:51 AM EDT documented in this encounter Patient Instructions * Patient Instructions* Rafael Sidhu MD - 03/14/2015 12:27 PM EDT 1. Lab work today 2. Actemra 162 mg subcutaneously weekly 3. Return in 3-4 months to assess response. 4. documented in this encounter Progress Notes * Rafael Sidhu MD - 03/14/2015 12:11 PM EDT Marla Denton is a 59-year-old female seen in 6 month follow up for severe complicated RA and recurrent thromboemboli/DVT who received RTX [...] so that increase to 8 mg/kg was recommended. Interval History: 8 month f/u with persistent active RA who has failed every agent but with numerous comorbitidies that often confound the situation. She did not like the Actemra infusions as she has poor veins; my feeling is that most of her flare today, relative to last January is evidence of benefit that was hard for her to admit. At last visit, I broached the topic of sq Actemra, but she would rather get leflunomide and a bit of prednisone to control this flare with the plan to try to get subcut Actemra or anyother novel agent that comes available 1. Rheumatoid Arthritis: Still on leflunomide and prednisone 7.5 mg/d. Hurts all am. Biggest issue is right hand, ankles, feet, time. Still having chronic pain in ankles 2. Severe knee pain with TKR underwent left showing: medial DJD with lush synovitis and medial and lateral meniscal tears. Still 'stiff'. Occasional 3. No recurrent blood clots. Still on coumadin. No bledding 4. Complained of dry eyes: with Restasis, eye drops. Had lacrimal duct plugging 5. Left TMJ pain Just taking prednisone 10 mg/d. Still taking doxycycline for Staph prophylaxis. No infections. Review of Systems Constitutional: No fevers, chills, malaise. Skin: no rashes HEENT: no sicca sx, change in hearing, taste sinus pain, ZHANG, change in taste. Respiratory: no chest pain, shortness of breath CV: no ABDULLAHI, angina sx, claudication Back: No sciatica, pain with standing GI: no abd pain, normal bowel movements : no dysuria, normal voiding, no nocturia Neuro: no acute issues Problem List: 1. Seronegative rheumatoid arthritis, erosive/destructive. 1. Failed multiple TNF antagonisits (Enbrel, Remicade Orencia, Kineret). 2. Rituxan - [...] no response to 4 mg/kg x 3 doses.. 2. RLE edema 10. Extensive/NEGATIVE workup (02/2007) [...] osteomyelitic vs cellulitis with RA. 4. DXA ([place] 2004: -1.3 SD low at spine; 1 [...] due to left knee pain Blood pressure 140/79, pulse 85, resp. rate 16, height 148.6 cm (4' 10.5), weight 73.483 kg (162 lb).HEENT:normal. Neck decreased flexion. Shoulders: decreased abduction left shoulder, right not tested. Elbows: less, still with tenderness of entire dorsal compartment of right right forearm up to the lateral epicondyle. The elbow moves stiffly and tender. Left okay. Wrists unimpressive for synovitis Bilateral CMC tenderness. Hands: SJC/TJC:8/12 in hands alone.. Early ulnar deviation of MCP. Her left TKR is well healed and there is diffuse swelling to the dorsum of the foot. Left Achilles very tender to the touch. Ankles: tender withoutwarmth. MTP joints splaying and very tender. VARGAS 28 Joint Count TJC: 8 SJC 12 Patient global 8, Physician global 8. CDAI 36 up from 19 Impression: Persistent active RA who has failed every agent but with numerous comorbitidies. Actemra was impossible IV due to the absence of venous access. Will try to get sq Actemra. Plan: 1. RA: with hypergammaglobulinemia Labs today and ACTEMRA sub cut weekly 2. Left knee arthritis stable 3. Oropharyngeal/esophageal nan: no recurrence. 4. Copy Dr. Cassidy 5. Return 3 months 7..15 Level 4 F/u visit Rafael Sidhu M.D. Staff Technical Services Representative documented in this encounter Miscellaneous Notes * Addendum Note - Ravi Lombardo - 03/14/2015 12:46 PM EDTAddended by: RAVI LOMBARDO on: 03/14/2015 12:46 PM Modules accepted: Orders documented in this encounter Plan of Treatment Scheduled Referrals Name Type Priority Associated Diagnoses Order Schedule Referral to Occupational Therapy Outpatient Referral Routine Rheumatoid arthritis(714.0) Ordered: 03/14/2015 Referral to Ophthalmology Outpatient Referral Routine Keratitis sicca Ordered: 03/14/2015 documented as of this encounter Procedures Procedure Name Priority Date/Time Associated Diagnosis Comments HEMOGRAM Routine 03/14/2015 12:54 PM EDT Rheumatoid arthritis(714.0) DIFFERENTIAL, AUTOMATED Routine 03/14/2015 12:54 PM EDT Rheumatoid arthritis(714.0) CBC (WITH DIFF) Routine 03/14/2015 12:54 PM EDT Rheumatoid arthritis(714.0) CRP, CARDIAC RISK (HS CRP) Routine 03/14/2015 12:54 PM EDT Rheumatoid arthritis(714.0) COMPREHENSIVE METABOLIC PANEL Routine 03/14/2015 12:54 PM EDT Rheumatoid arthritis(714.0) documented in this encounter Results * (ABNORMAL) Differential, Automated (03/14/2015 12:54 PM EDT) Neutrophil % 73.6 % CERNER MILLENNIUM Neutrophil Absolute 9.98(H) 1.50 - 6.30 x10(3)/mc L CERNER MILLENNIUM Lymph % 17.8 % CERNER MILLENNIUM Lymphocytes Abs 2.4 1.0 - 3.6 x10(3)/mc L CERNER MILLENNIUM Monocyte % 6.8 % CERNER MILLENNIUM Monocyte Abs 0.9 0.2 - 1.0 x10(3)/mc L CERNER MILLENNIUM Eos % 1.2 % CERNER MILLENNIUM Eosinophils Abs 0.2 0.0 - 0.5 x10(3)/mc L CERNER MILLENNIUM Basophil % 0.2 % CERNER MILLENNIUM Baso Absolute 0.0 0.0 - 0.2 x10(3)/mc L CERNER MILLENNIUM Immature Gran % 0.40 % CERN ER MILLENNIUM Comment: Immature granulocytes(IG's)percentage and absolute count will include metamyelocytes, myelocytes, and promyelocytes. Blood smears from CBCs yielding IG's will be scanned manually for concordance. If this scan disagrees with the automated IG or if promyelocytes are noted, a manual differential will be performed. Immature Gran Absolute 0.06(H) 0.00 - 0.05 x10(3)/mc L CERNER MILLENNIUM Blood specimen (specimen) 03/14/2015 12:54 PM EDT 03/14/2015 1:01 PM EDT Narrative Resulting Agency Comment Spec In Lab Rafael iSdhu MD HEMATOLOGY ORDERABLE S Performing Organization Address [facility]/ZIP Co de Phone Number CERNER MILLENNIUM * (ABNORMAL) Hemogram (03/14/2015 12:54 PM EDT) White Blood Cell 13.6(H) 4.0 - 10.0 x10(3)/mc L CERNER MILLENNIUM Red Blood Cell 4.53 3.93 - 5.22 x10(6)/mc L CERNER MILLENNIUM Hemoglobin 13.4 11.2 - 15.7 gm/dL CERNER MILLENNIUM Hematocrit 41.4 34.0 - 45.0 % CERNER MILLENNIUM Mean Cell Volume 91.4 79.0 - 94.0 fL CERNER MILLENNIUM Mean Cell Hemoglobin 29.6 26.6 - 32.2 pg CERNER MILLENNIUM Mean Cell Hemoglobin Concentration 32.4 32.0 - 36.5 gm/dL CERNER MILLENNIUM Platelet 413(H) 145 - 370 x10(3)/mc L CERNER MILLENNIUM RDW Standard Deviation 48.5(H) 35.0 - 46.0 fL CERNER MILLENNIUM RDW coefficient of variation 14.5(H) 10.9 - 14.4 % CERNER MILLENNIUM Mean Platelet Volume 9.4 9.0 - 12.0 fL CERNER MILLENNIUM Blood specimen (specimen) 03/14/2015 12:54 PM EDT 03/14/2015 1:01 PM EDT Narrative Resulting Agency Comment Spec In Lab Rafael Sidhu MD HEMATOLOGY ORDERABLE S Performing Organization Address [facility]/ZIP Co de Phone Number CERGRACIELA CARLISLEENNIUM * High Sensitivity CRP (03/14/2015 12:54 PM EDT) C-Reactive Protein High Sensitivity 7.8 mg/L CERNER MILLENNIUM Comment: Interpretations: 1) For [...] and Cardiovascular Disease. ??Circulation 2003; 107:499-511 2. Ridker PM. ??Clinical applications of C-reactive protein for cardiovascular disease detection and prevention. ??Circulation 2003; 107:363-369 Blood specimen (specimen) 03/14/2015 12:54 PM EDT 03/14/2015 1:01 PM EDT Narrative Resulting Agency Comment Spec In Lab Rafael Sidhu MD CHEMISTRY ORDERABLES [facility] * (ABNORMAL) Comprehensive metabolic panel (non-fasting) (03/14/2015 12:54 PM EDT) [facility] Glucose 78 60 - 199 mg/dL CERNER MILLENNIUM Comment:Diabetes: >=200 mg/d L plus symptoms Blood Urea Nitrogen 9 8 - 18 mg/dL CERNER MILLENNIUM Creatinine 0.86 0.70 - 1.20 mg/dL CERNER MILLENNIUM Comment: Please note that the pediatric reference intervals supplied above were not validated at [facility]. Results from pediatric patients should be interpreted in conjunction to the patient's age, height and muscle mass. Sodium 139 135 - 145 mmol/L CERNER MILLENNIUM Potassium 4.7 3.5 - 5.0 mmol/L CERNER MILLENNIUM Comment: Please note: ??Patients with WBC >100,000 may have falsely elevated Potassium levels. ??For accurate Potassium quantification in these patients send serum separator tube (gold top) for subsequent determinations. ??Contact the Clinical Chemistry Laboratory if there are any questions. Chloride 99 98 - 107 mmol/L CERNER MILLENNIUM Carbon Dioxide 28 22 - 31 mmol/L CERNER MILLENNIUM Anion Gap 12 5 - 15 mmol/L CERNER MILLENNIUM Calcium 9.3 8.5 - 10.5 mg/dL CERNER MILLENNIUM Protein, Total 9.6(H) 6.1 - 8.0 gm/dL CERNER MILLENNIUM Albumin 3.9 3.2 - 5.2 gm/dL CERNER MILLENNIUM Aspartate Aminotransferase Not Perf 0 - 30 unit/L CERNER MILLENNIUM Comment:Unable to quantitate due to sample hemolysis. Sample redraw suggested. Alanine Aminotransferase 11 0 - 30 unit/L CERNER MILLENNIUM Alkaline Phosphatase 123(H) 40 - 104 unit/L CERNER MILLENNIUM Bilirubin, Total 0.5 0.2 - 1.3 mg/dL CERNER MILLENNIUM Bilirubin, Direct 0.1 0.0 - 0.3 mg/dL CERNER MILLENNIUM Est Glomerular Filtration Rate >60 >=60 CERNER MILLENNIUM Comment: This estimated GFR (eGFR) value was [...] the following links into your internet browser. [email or web address] Blood specimen (specimen) 03/14/2015 12:54 PM EDT 03/14/2015 1:01 PM EDT Narrative Resulting Agency Comment Spec In Lab Rafael Sidhu MD CHEMISTRY ORDERABLES CERGRACIELA PETE documented in this encounter Visit Diagnoses Diagnosis Rheumatoid arthritis(714.0) Rheumatoid arthritis Keratitis sicca Other forms of keratitis documented in this encounter Care Teams Scuba Dive Training Instructor Relationship Specialty Start Date End Date Curt Cassidy MD [address] [facility] [address] [place] [id number] (work) PCP - General 10/10/10 documented as of this encounter
--- OUTSIDE RECORDS SUMMARY | 2024-10-30 01:36 | XMS_ITS | Encounter Summary ---
Author Organization [facility] Address [facility] [place] [address] Care Team Providers Care Sewer Line Photo Inspector Name Role Phone Curt Cassidy MD Primary Care Provider [phone] Reason for Visit * Reason Comments Cataract Encounter Details Date Type Department Care Team (Late st Contact Info) Description 06/15/2015 3:15 PM EDT [place] [address] Azael Espinosa MD [facility] [address] [place] [address] Sjogrens syndrome; Keratitis; Corneal neovascularization, bilateral Discharge Disposition: Home Social History Tobacco Use [...] * Patient Instructions* Azael Espinosa MD - 06/15/2015 3:45 PM EDT Use eye medications as instructed by Dr. Espinosa during your appointment. For non eye medications not prescribed by the Ophthalmology (Eye) Clinic, please follow up with your PCP (primary care provider) for instructions. Please call the eye clinic, [phone], for any significant changes in vision, new flashes or floaters or eye pain documented in this encounter Progress Notes * Azael Espinosa MD - 06/15/2015 3:41 PM EDT Encounter Diagnoses Name Primary? Sjogrens syndrome ??? Keratitis ??? Corneal neovascularization, bilateral Marla Denton is a 59 y.o. with the following ophthalmic problems: Keratitis and corneal neovascularization associated with MALIKA OD>OS in patient with RA on immunosuppression, LL [place] vision plugs OU: Moderate to severe MALIKA given presence of corneal nv ou. Symptoms have improved, but still significant PEK OD>OS- reports only AT only bid. Plan: - continue restasis OD but stop OS to see if it is adding to toxicity and PF AT 6 times a day - Follow up 6 wks or as needed - Findings and concerns discussed with Marla and she expressed understanding. Note to Dr. Sidhu -Upon Return IOP MR - gabby if not BCVA of 20/20 documented in this encounter Plan of Treatment Not on file documented as of this encounter Visit Diagnoses Diagnosis Sjogrens syndrome Sicca syndrome Keratitis Unspecified keratitis Corneal neovascularization, bilateral documented in this encounter Care Teams Sewer Line Photo Inspector Relationship Specialty Start Date End Date Curt Cassidy MD [address], [facility] [address] [place] [address] PCP - General 10/10/10 documented as of this encounter
--- OUTSIDE RECORDS SUMMARY | 2024-10-30 01:36 | XMS_ITS | Encounter Summary ---
[place] [address] Care Team Providers Care Flower Arranger Name Role Phone Curt Cassidy MD Primary Care Provider [phone] Reason for Visit * Reason Onset Date Comments Prior Authorization 04/26/2016 Encounter Details Date Type Department Care Team (Late st Contact Info) Description 04/26/2016 Telephone [place] [phone] [facility] Prior Authorization Social History Tobacco Use Types Packs/Day Years [...] encounter Miscellaneous Notes * Telephone Encounter - G[facility]nesis [facility] - 04/27/2016 2:52 PM EDT Denied. Please consider preferred Doxycycline CAPSULES, which do not require a PA. Medication Prior Authorization JOSSELIN ACOSTA Medication name/dose/directions: Doxycycline hyc tab 100 mg 1xday oral Rationale for request: RA Health plan: [place] Medicaid Authorizing in store representative name: Génesis Faxed to health plan on: 04/26 Health plan decision: Denied Quantity approved: 0 Authorization number: [id number] Start date: -- End date: -- Patient notified? no Pharmacy notified? no * Telephone Encounter - Génesis [facility] - 04/26/2016 2:13 PM EDT PA for doxycycline begun via CMM. documented in this encounter Plan of Treatment Not on file documented as of this encounter Visit Diagnoses Not on filedocumented in this encounter Care Teams Flower Arranger Relationship Specialty Start Date End Date Curt Cassidy MD [address], [address] [address] PCP - General 10/10/10 documented as of this encounter
--- OUTSIDE RECORDS SUMMARY | 2024-10-30 01:36 | XMS_ITS | Encounter Summary ---
Author Organization [facility] [place] [address] Care Team Providers Care Branch General Manager Name Role Phone Curt Cassidy MD Primary Care Provider [phone] Reason for Visit * Reason Onset Date Comments Other 11/08/2015 Duplicate Therap y Encounter Details Date Type Department Care Team (Late st Contact Info) Description 11/08/2015 [place] [phone] Sarah Hill RN Other (Duplicate Therapy) Social History Tobacco Use Types Packs/Day Years [...] encounter Miscellaneous Notes * Telephone Encounter - Sarah Hill RN - 11/08/2015 4:39 PM EST Clarice calls back from [employer] and states Arava was the drug of concern. I left a message for Clarice to RTC tomorrow. * Telephone Encounter - Sarah Hill RN - 11/08/2015 2:32 PM EST Call received from [employer] stating that Marla is on Duplicate Therapy of Immune Modulators Concerned about adding Actemra. When I RTC they were not sure what the concern was. They were askedto call back if needed. documented in this encounter Plan of Treatment Not on file documented as of this encounter Visit Diagnoses Not on filedocumented in this encounter Care Teams Branch General Manager Relationship Specialty Start Date End Date Curt Cassidy MD [address], [place] [address] PCP - General 10/10/10 documented as of this encounter
--- OUTSIDE RECORDS SUMMARY | 2024-10-30 01:36 | XMS_ITS | Encounter Summary ---
Author Organization [facility] Address [facility] [place] [address] Care Team Providers Care Edge Inker Uppers Name Role Phone Curt Cassidy MD Primary Care Provider [phone] Reason for Referral * Diagnostic Test (Routine) - Closed Specialty Diagnoses / Procedures Referred By Contac t Referred To Contact Radiology Diagnoses Lung nodule seen on imaging study Pleural effusion Procedures CT Chest Wo Contrast (GENERIC) Zaki Galdamez MD [facility] [address] [facility] [place] [address] Referral ID Status Reason Start Date Expiration Date V isits Requested Visits Authorized [id number] Closed Specialty Service Requested 04/14/2016 04/14/2017 1 1 Reason for Visit * Diagnostic Test (Routine) - Closed Specialty Diagnoses / Procedures Referred By Contac t Referred To Contact Radiology Diagnoses Lung nodule seen on imaging study Pleural effusion Procedures CT Chest Wo Contrast (GENERIC) Zaki Galdamez MD [facility] [address] [facility] [place] [address] Referral ID Status Reason Start Date Expiration Date V isits Requested Visits Authorized [id number] Closed Specialty Service Requested 04/14/2016 04/14/2017 1 1 Encounter Details Date Type Department Care Team (Latest Contact Info) Description 04/30/2016 12:42 PM EDT - 04/30/2016 1:25 PM EDT Hospital Encounter CT Scan at [facility] [place] [id number] Zaki Galdamez MD [facility]UL[facility] [place] [address] Lung nodule seen on imaging study; Pleural effusion Discharge Disposition: Home Social History Tobacco Use [...] Sig Dispensed Refills Start Date End Date Carboxymethylcellulo se Sodium 0.25 % [place] [facility] [...] 11/05/2013 ergocalciferol (VITAMIN D) 50,000 unit capsule 81411 unit, PO, once a month 10/23/2010 doxycycline (VIBRAMYCIN) 100 mg CapsuleIndications:R ecurrent cellulitis of lower leg Take 1 capsule by mouth daily. 90 capsule 3 04/27/2016 05/21/2017 tocilizumab 162 mg/0.9 mL SyringeIndications:R heumatoid arthritis(714.0) Inject 162 mg subcutaneously once a week. 4 Syringe 11 09/28/2015 06/28/2016 leflunomide (ARAVA) 20 mg Tablet TAKE ONE TABLET BY MOUTH ONCE DAILY 90 tablet 3 08/25/2015 09/15/2016 acyclovir (ZOVIRAX) 800 mg TabletIndications:Rh eumatoid arthritis(714.0) Take 1 tablet by mouth daily. 90 tablet 3 08/22/2015 07/25/2016 warfarin (COUMADIN) 5 mg tablet Take 5-7.5 mg by mouth daily. 12/07/2020 cyclobenzaprine (FLEXERIL) 10 mg tablet Take 10 mg by mouth 3 times daily as needed. calcium carbonate 648 mg calcium tablet Take [...] Comments CT CHEST WO CONTRAST (GENERIC) Routine 04/30/2016 1:14 PM EDT Lung nodule seen on imaging study Pleural effusion documented in this encounter Results * CT Chest Wo Contrast (GENERIC) (04/30/2016 1:14 PM EDT) Anatomical Region Laterality Modality Chest Computed Tomogra phy Impressions 04/30/2016 1:45 PM EDT Impression: 1. ??Slightly improved inflation but some residual atelectasis. Line no significant degree of fibrosis. 2. ??Stable 7 mm right lower lobe nodule. Consider follow-up low-dose noncontrast chest CT limited to between the nando and diaphragm in one year. Narrative 04/30/2016 1:45 PM EDT EXAMINATION: CT CHEST WO CONTRAST CLINICAL HISTORY: f/up ILD TECHNIQUE: Helical CT of the chest was performed without contrast. Multiplanar reformatted images were reviewed. COMPARISON: 04/05/2015 ? FINDINGS: Lungs and airways: There is a slightly better degree of inflation of the lungs overall but some residual atelectasis within the right middle lobe, lingula, and dependent lower lobes. There is no other interval change. Specifically, no reticulation or honeycombing is seen to suggest significant fibrosis. Again noted is a 7 mm nodule in the right lower lobe (series 3 image 53). Unfortunately, none of the prior chest CTs included infections for volumetric assessment and growth. ??The airways are widely patent. On the expiration images, there is no significant degree of air trapping. Pleura and pericardium: No effusions. Heart and vasculature: Heart size normal. Great vessels normal in course and caliber. Mediastinum and hilar structures: No lymphadenopathy persistent soft tissue density in anterior mediastinum consistent with small amount of residual thymus. Allowing for the lack of intravenous contrast, the portions of the abdominal organs included in the field of view are unremarkable. Osseous structure: No focal lytic or sclerotic osseous lesion. ? Procedure Note Rafael Mello MD - 04/30/2016 EXAMINATION: CT CHEST WO CONTRAST CLINICAL HISTORY: f/up ILD TECHNIQUE: Helical CT of the chest was performed without contrast.Multiplanar reformatted images were reviewed. COMPARISON: 04/05/2015 ? FINDINGS: Lungs and airways: There is a slightly better degree of inflation of thelungs overall but some residual atelectasis within the right middle lobe,lingula, and dependent lower lobes. There is no other interval change. Specifically,no reticulation or honeycombing is seen to suggest significant fibrosis.Again noted is a 7 mm nodule in the right lower lobe (series 3 image 53). Unfortunately, none of the prior chest CTs included infections forvolumetric assessment and growth. The airways are widely patent. On the expirationimages, there is no significant degree of air trapping. Pleura and pericardium: No effusions. Heart and vasculature: Heart size normal. Great vessels normal in courseand caliber. Mediastinum and hilar structures: No lymphadenopathy persistent softtissue density in anterior mediastinum consistent with small amount of residualthymus. Allowing for the lack of intravenous contrast, the portions of theabdominal organs included in the field of view are unremarkable. Osseous structure: No focal lytic or sclerotic osseous lesion. ? IMPRESSION Impression: 1. Slightly improved inflation but some residual atelectasis. Line no significant degree of fibrosis. 2. Stable 7 mm right lower lobe nodule. Consider follow-up low-dosenoncontrast chest CT limited to between the nando and diaphragm in one year. Zaki Bui MD IMG CT ORDERABLES documented in this encounter Visit Diagnoses Diagnosis Lung nodule seen on imaging study Solitary pulmonary nodule Pleural effusion Unspecified pleural effusion documented in this encounter Care Teams Edge Inker Uppers Relationship Specialty Start Date End Date Curt Cassidy MD [address] [facility] [place] [address] PCP - General 10/10/10 documented as of this encounter
--- OUTSIDE RECORDS SUMMARY | 2024-10-30 01:36 | XMS_ITS | Encounter Summary ---
Author Organization [facility] Address [facility] [address] [address] [place] [address] Care Team Providers Care Deck Mate Name Role Phone Curt Cassidy MD Primary Care Provider Encounter Details Date Type Department Care Team (Latest Contact Info) Description 12/30/2015 2:00 PM EST - 12/30/2015 11:59 PM EST Hospital Encounter Non[place] [address] Rafael Sidhu MD [facility] [address] [place] [address] ABDULLAHI (dyspnea on exertion); Hypoxemia Discharge Disposition: Home Social History Tobacco Use [...] 11/05/2013 ergocalciferol (VITAMIN D) 50,000 unit capsule 73019 unit, PO, once a month 10/23/2010 alendronate (FOSAMAX) 70 mg Tablet TAKE ONE TABLET BY MOUTH EVERY 7 DAYS IN THE MORNING WITH A FULL GLASS OF WATER, ON AN EMPTY STOMACH. DO NOT LIE DOWN FOR 30 MINUTES 12 tablet 0 12/21/2015 04/30/2016 tocilizumab 162 mg/0.9 mL SyringeIndications:R heumatoid arthritis(714.0) Inject 162 mg subcutaneously once a week. 4 Syringe 11 09/28/2015 06/28/2016 doxycycline (VIBRA-TABS) 100 mg Tablet TAKE ONE TABLET BY MOUTH ONCE DAILY 90 tablet 0 09/21/2015 02/05/2016 leflunomide (ARAVA) 20 mg Tablet TAKE ONE [...] Date/Time Associated Diagnosis Comments ECHO COMPLETE Routine 12/30/2015 3:41 PM EST ABDULLAHI (dyspnea on exertion) Hypoxemia documented in this encounter Results * ECHO COMPLETE (12/30/2015 3:41 PM EST) EF 65 HEARTLAB SYSTEM Anatomical Region Laterality Modality Other 12/30/2015 Narrative 12/30/2015 4:20 PM EST Procedure: ?Transthoracic Echocardiogram Patient: ?CORRIE MARLA E ? (Age): 1955(60y) Med Rec#: ? [id number] ?Sex: ?F ? Site Loc: ? [facility] ?Ht / Wt: ??149(cm)/69.4(kg Pt. Loc: ?Echo Lab ?BSA: ?1.64 Study Date: ?? 12/30/2015 ?Pt. Type: Outpatient Tape: ? Referring: Rafael Sidhu Referring: CURT CASSIDY D Reading: Mac Werner ([id number]) Missile Pad Mechanic: Debbie Quach Diagnosis: *ICD-10-PCS Hypoxemia (R09.02) *ICD-10-PCS Dyspnea, unspecified (R06.00) CPT Codes: *Echo Full (28100) *Spectral Doppler (67488) *Color Doppler (34961) BP: ? 148/89 SUMMARY: 1. Left ventricular chamber size, wall thickness, global and segmental systolic function are within normal limits. Ejection fraction is estimated to be 65%. ??The left ventricular chamber size is normal. 2. There is normal global left ventricular systolic function. ??Ejection fraction is estimated to be 65%. ??There are no left ventricular segmental wall motion abnormalities. 3. Right ventricular chamber size, wall thickness, and systolic function are within normal limits. 4. The left atrium is normal in size. ??The right atrium appears normal. Findings ? : Left Ventricle: ? Left ventricular chamber size, wall thickness, global and segmental systolic function are within normal limits. Ejection fraction is estimated to be 65%. ?The left ventricular chamber size is normal. ?Left ventricular wall thickness is normal. ?There is no evidence of LVOT obstruction. ?No ventricular septal defect is visualized. ?There is normal global left ventricular systolic function. ??Ejection fraction is estimated to be 65%. ?There are no left ventricular segmental wall motion abnormalities. ?Doppler assessment is consistent with normal left sided filling pressure. Left Atrium: ? The left atrium is normal in size.(26 ml/m2) ?No atrial septal defect is visualized. Right Ventricle: ? Right ventricular chamber size, wall thickness, and systolic function are within normal limits. Right Atrium: ? The right atrium appears normal. Aortic Valve: ? The aortic valve is probably tricuspid. ?Systolic excursion of the aortic valve is normal. ?There is no evidence of aortic valve stenosis. ?There is no evidence of aortic regurgitation. Mitral Valve: ? The mitral valve appears normal in structure and function. ?There is no evidence of mitral valve leaflet prolapse. ?There is no evidence of mitral stenosis. ?There is trace mitral regurgitation present. Tricuspid Valve: ? The tricuspid valve appears normal in structure and function. ?There is trace tricuspid regurgitation present. Pulmonic Valve: ? The pulmonic valve is not well visualized. Pericardium: ? The pericardium appears normal and there is no evidence of a pericardial effusion. Aorta: ? The aortic root is normal in size. ?The ascending aorta is normal in size. ?There is no evidence of coarctation of the aorta. Pulmonary Artery: ? The main pulmonary artery appears normal. Venous: ? The inferior vena cava appears normal in size. ?There is a greater than 50% respiratory change in the inferior vena cava dimension. Misc: ? There is no hemodynamically significant valve disease. ?See remainder of report for additional findings. ?Two-dimensional echo, spectral Doppler and color Doppler performed. Chambers 2D ?Value ?Units (Range) ? IVSd (2D) ? 0.8 ?cm ? LVPWd (2D) ?0.8 ?cm ? IVS:LVPW ratio (2D) 1 ?ratio ? LVIDd (2D) ?3.5 ?cm ? LVIDs (2D) ?2.3 ?cm ? LVIDd (2D) index ?2.2 ?cm/m2 ? LVIDs (2D) index ?1.4 ?cm/m2 ? LV FS (2D) ?36 ? % ? EF Teichholz (2D) ?? 66 ? % ? Ao root diameter (2D2.6 ?cm (2.1 - 3.6) ? Ascending Ao ?2.8 ?cm (2 - 3.5) ? Volumes/Mass ?Value ?Units (Range) ? LA Area 4 CH ?15 ? cm2 (<21) ? RA AREA 4CH ? 14 ? cm2 ? LA ESV SP 4CH (MOD) 35.4 ? ml ? LA ESV SP 2CH (MOD) 46.7 ? ml ? LA ESV BP (MOD) ? 42.1 ? ml ? LA ESV BP (MOD) inde25.7 ? ml/m2 ? LV mass (2D) ?75.6 ? g ? LV mass (2D) index ??46.1 ? g/m2 ? Diastolic/Systolic Function ?Value ?Units (Range) ? MV E-wave Vmax ?1.1 ?m/sec ? MV deceleration time92 ? msec ? MV A-wave Vmax ?0.9 ?m/sec ? MV E:A ratio ?1.2 ?ratio ? LV septal e' Vmax ?? 0.1 ?m/sec ? LV E:e' septal ratio13.9 ? ratio ? Tricuspid Valve ?Value ?Units (Range) ? RAP ? 3 ?mmHg ? Measurement Trending Name ? 12/30/2015 ? LVIDd (2D) ? 3.54 LA ESV BP (MOD) ?42.1 LVIDs (2D) ? 2.28 Wall Motion: Segment Name ?Rest ? Base-Anteroseptal ?? Normal ? Base-Anterior ? Normal ? Base-Anterolateral ??Normal ? Base-Posterolateral Normal ? Base-Inferior ? Normal ? Base-Inferoseptal ?? Normal ? Mid-Anteroseptal ?Normal ? Mid-Anterior ?Normal ? Mid-Anterolateral ?? Normal ? Mid-Posterolateral ??Normal ? Mid-Inferior ?Normal ? Mid-Inferoseptal ?Normal ? Erie-Septal ? Normal ? Erie-Anterior ? Normal ? Erie-Lateral ?Normal ? Erie-Inferior ? Normal ? Erie-Tip ?Normal ? This report has been electronically signed by: Mac Werner M.D. ? 12/30/2015 16:19:57 Images reviewed and interpretation verified [facility] Cardiac Ultrasound Laboratory Procedure Note Mac Werner MD - 12/30/2015 Procedure: Transthoracic Echocardiogram Patient: CORRIE DEL CASTILLO(Age): 1955(60y) Med Rec#: [id number] Sex: F Site Loc: [facility] Ht / Wt: 149(cm)/69.4(kg Pt. Loc: Echo Lab BSA: 1.64 Study Date: 12/30/2015 Pt. Type: Outpatient Tape: Referring: Rafael Sidhu Referring: CURT CASSIDY D Reading: Mac Werner ([id number]) Missile Pad Mechanic: Debbie Quach Diagnosis: *ICD-10-PCS Hypoxemia (R09.02) *ICD-10-PCS Dyspnea, unspecified (R06.00) CPT Codes: *Echo Full (16503) *Spectral Doppler (41895) *Color Doppler (44696) BP: 148/89 SUMMARY: 1. Left ventricular chamber size, wall thickness, global and segmental systolic function are within normal limits. Ejection fraction is estimated to be 65%. The left ventricular chamber size is normal. 2. There is normal global left ventricular systolic function. Ejection fraction is estimated to be 65%. There are no left ventricular segmental wall motion abnormalities. 3. Right ventricular chamber size, wall thickness, and systolic function are within normal limits. 4. The left atrium is normal in size. The right atrium appears normal. Findings : Left Ventricle: Left ventricular chamber size, wall thickness, global and segmental systolic function are within normal limits. Ejection fraction is estimated to be 65%. The left ventricular chamber size is normal. Left ventricular wall thickness is normal. There is no evidence of LVOT obstruction. No ventricular septal defect is visualized. There is normal global left ventricular systolic function. Ejection fraction is estimated to be 65%. There are no left ventricular segmental wall motion abnormalities. Doppler assessment is consistent with normal left sided filling pressure. Left Atrium: The left atrium is normal in size.(26 ml/m2) No atrial septal defect is visualized. Right Ventricle: Right ventricular chamber size, wall thickness, and systolic function are within normal limits. Right Atrium: The right atrium appears normal. Aortic Valve: The aortic valve is probably tricuspid. Systolic excursion of the aortic valve is normal. There is no evidence of aortic valve stenosis. There is no evidence of aortic regurgitation. Mitral Valve: The mitral valve appears normal in structure and function. There is no evidence of mitral valve leaflet prolapse. There is no evidence of mitral stenosis. There is trace mitral regurgitation present. Tricuspid Valve: The tricuspid valve appears normal in structure and function. There is trace tricuspid regurgitation present. Pulmonic Valve: The pulmonic valve is not well visualized. Pericardium: The pericardium appears normal and there is no evidence of a pericardial effusion. Aorta: The aortic root is normal in size. The ascending aorta is normal in size. There is no evidence of coarctation of the aorta. Pulmonary Artery: The main pulmonary artery appears normal. Venous: The inferior vena cava appears normal in size. There is a greater than 50% respiratory change in the inferior vena cava dimension. Misc: There is no hemodynamically significant valve disease. See remainder of report for additional findings. Two-dimensional echo, spectral Doppler and color Doppler performed. Chambers 2D Value Units (Range) IVSd (2D) 0.8 cm LVPWd (2D) 0.8 cm IVS:LVPW ratio (2D) 1 ratio LVIDd (2D) 3.5 cm LVIDs (2D) 2.3 cm LVIDd (2D) index 2.2 cm/m2 LVIDs (2D) index 1.4 cm/m2 LV FS (2D) 36 % EF Teichholz (2D) 66 % Ao root diameter (2D2.6 cm (2.1 - 3.6) Ascending Ao 2.8 cm (2 - 3.5) Volumes/Mass Value Units (Range) LA Area 4 CH 15 cm2 (<21) RA AREA 4CH 14 cm2 LA ESV SP 4CH (MOD) 35.4 ml LA ESV SP 2CH (MOD) 46.7 ml LA ESV BP (MOD) 42.1 ml LA ESV BP (MOD) inde25.7 ml/m2 LV mass (2D) 75.6 g LV mass (2D) index 46.1 g/m2 Diastolic/Systolic Function Value Units (Range) MV E-wave Vmax 1.1 m/sec MV deceleration time92 msec MV A-wave Vmax 0.9 m/sec MV E:A ratio 1.2 ratio LV septal e' Vmax 0.1 m/sec LV E:e' septal ratio13.9 ratio Tricuspid Valve Value Units (Range) RAP 3 mmHg Measurement Trending Name 12/30/2015 LVIDd (2D) 3.54 LA ESV BP (MOD) 42.1 LVIDs (2D) 2.28 Wall Motion: Segment Name Rest Base-Anteroseptal Normal Base-Anterior Normal Base-Anterolateral Normal Base-Posterolateral Normal Base-Inferior Normal Base-Inferoseptal Normal Mid-Anteroseptal Normal Mid-Anterior Normal Mid-Anterolateral Normal Mid-Posterolateral Normal Mid-Inferior Normal Mid-Inferoseptal Normal Erie-Septal Normal Erie-Anterior Normal Erie-Lateral Normal Erie-Inferior Normal Erie-Tip Normal This report has been electronically signed by: Mac Werner M.D. 12/30/2015 16:19:57 Images reviewed and interpretation verified [facility] Cardiac Ultrasound Laboratory Rafael Sidhu MD ECHO ORDERABLES documented in this encounter Visit Diagnoses Diagnosis ABDULLAHI (dyspnea on exertion) Other dyspnea and respiratory abnormality Hypoxemia documented in this encounter Care Teams Deck Mate Relationship Specialty Start Date End Date Curt Cassidy MD [address] [facility] [place] [address] PCP - General 10/10/10 documented as of this encounter
--- OUTSIDE RECORDS SUMMARY | 2024-10-30 01:36 | XMS_ITS | Encounter Summary ---
Author Organization [facility] Address [facility] [place] [place] [address] Care Team Providers Care Business Solutions Architect Name Role Phone Curt Cassidy MD Primary Care Provider [phone] Reason for Visit * Reason Onset Date Comments Other 06/01/2016 Encounter Details Date Type Department Care Team (Late st Contact Info) Description 06/01/2016 Telephone [place] [id number] Sarah Hill RN Other Social History Tobacco Use Types Packs/Day Years [...] Telephone Encounter - Sarah Hill RN - 06/01/2016 11:39 AM EDT She needs to be seen by OT for splints that maintain MCP extension and prevent ulnar deviation. ??OTC splints are not adequate. ??She can be seen by a local OT if she likes. ??We can re-refer for this, I guess Rafael Sidhu * Telephone Encounter - Sarah Hill RN - 06/01/2016 10:13 AM EDT Marla calls today and is requesting prescriptions for Splints. I have referred to OT as a referralwas done on 04/30/16. I will check with Dr. Sidhu to see if he wanted to order splints or wants OT to evaluate for splints. documented in this encounter Plan of Treatment Not on file documented as of this encounter Visit Diagnoses Not on filedocumented in this encounter Care Teams Business Solutions Architect Relationship Specialty Start Date End Date Curt Cassidy MD [address] [facility], [facility] [address] [place] [address] PCP - General 10/10/10 documented as of this encounter
--- OUTSIDE RECORDS SUMMARY | 2024-10-30 01:36 | XMS_ITS | Encounter Summary ---
Author Organization [facility] Address [facility] [place] [address] Care Team Providers Care Farm Loan Representative Name Role Phone Curt Cassidy MD Primary Care Provider [phone] Reason for Visit * Reason Comments Keratitis follow up Encounter Details Date Type Department Care Team (Late st Contact Info) Description 12/30/2015 12:30 PM EST Office [place] [address] Azael Espinosa MD [facility] [place] [address] [place] [address] Sjogrens syndrome Social History Tobacco Use Types [...] * Patient Instructions* Azael Espinosa MD - 12/30/2015 1:19 PM EST Use eye medications as instructed by Dr. Espinosa during your appointment. For non eye medications not prescribed by the Ophthalmology (Eye) Clinic, please follow up with your PCP (primary care provider) for instructions. Please call the eye clinic, [phone], for any significant changes in vision, new flashes or floaters or eye pain documented in this encounter Progress Notes * Azael Espinosa MD - 12/30/2015 1:14 PM EST Encounter Diagnosis Name Primary? Sjogrens syndrome Marla Denton is a 60 y.o. with the following ophthalmic problems: Keratitis and corneal neovascularization associated with MALIKA OD>OS in patient with RA on immunosuppression, LL Mitchell vision plugs OU restasis previously unhelpful: less PEK and improved vision 20/20 on PFAT only, she did not want to try restasis again. Active RA on immunosuppression Actemra/Arava: no ocular manifestations other than MALIKA Plan: PF AT 6 times a day, - Follow up 4 months or as needed - Findings and concerns discussed with Marla and she expressed understanding. Note to Dr. Sidhu -Upon Return CEE documented in this encounter Plan of Treatment Not on file documented as of this encounter Visit Diagnoses Diagnosis Sjogrens syndrome Sicca syndrome documented in this encounter Care Teams Farm Loan Representative Relationship Specialty Start Date End Date Curt Cassidy MD [address] [place] [address] PCP - General 10/10/10 documented as of this encounter
--- OUTSIDE RECORDS SUMMARY | 2024-10-30 01:36 | XMS_ITS | Encounter Summary ---
Author Organization [facility] Address [facility] [place] [address] Care Team Providers Care Veterans Service Officer Name Role Phone Curt Cassidy MD Primary Care Provider [phone] Reason for Visit * Reason Comments Medication Refill Encounter Details Date Type Department Care Team (Late st Contact Info) Description 11/24/2014 [place] [address] Nena Toussaint MD [facility] [place] [address] Social History Tobacco Use Types Packs/Day Years [...] on filedocumented in this encounter Care Teams Veterans Service Officer Relationship Specialty Start Date End Date Curt Cassidy MD [address] [facility] [address] [place] [address] PCP - General 10/10/10 documented as of this encounter
--- OUTSIDE RECORDS SUMMARY | 2024-10-30 01:36 | XMS_ITS | Encounter Summary ---
Author Organization [facility] [place] [address] Care Team Providers Care Laboratory Equipment Installer Name Role Phone Curt Cassidy MD Primary Care Provider [phone] Encounter Details Date Type Department Care Team (Latest Contact Info) Description 04/30/2016 1:26 PM EDT - 04/30/2016 11:59 PM EDT Hospital En[place] [address] Lung nodule seen on imaging study; Pleural [...] 11/05/2013 ergocalciferol (VITAMIN D) 50,000 unit capsule 26808 unit, PO, once a month 10/23/2010 doxycycline [...] 10/23/2010 01/07/2017 documented as of this encounter Procedure Notes * Gerry Colon Jr., MD - 04/30/2016 5:00 PM EDTAssociated Order(s): PULMONARY FUNCTION TEST Pulmonary Function Testing Spirometry reveals severe airflow obstruction with concomitant reduction in forced vital capacity. Lung volumes demonstrate reduced total lung capacity and elevated residual volume. Diffusing capacity is mildly reduced. This constellation of findings suggests a restrictive ventilatory defect with casas perimposed airflow obstruction. Oxygen saturation is normal at rest, and there is borderline oxygendesaturation with ambulation. Gerry Colon MD Pulmonary Medicine documented in this encounter Plan of Treatment Not on file documented as of this encounter Procedures Procedure Name Priority Date/Time Associated Diagnosis Comments COMMON PULMONARY FUNCTION TEST Routine 05/01/2016 1:05 PM EDT Lung nodule seen on imaging study Pleural effusion documented in this encounter Results * Pulmonary Function Testing (05/01/2016 1:05 PM EDT) Narrative Gerry Colon Jr., MD - 05/01/2016 1:05 PM EDT Gerry Colon Jr., MD ? 05/01/2016 ??1:05 PM Pulmonary Function Testing Spirometry reveals severe airflow obstruction with concomitant reduction in forced vital capacity. ??Lung volumes demonstrate reduced total lung capacity and elevated residual volume. ?? Diffusing capacity is mildly reduced. ??This constellation of findings suggests a restrictive ventilatory defect with superimposed airflow obstruction. ??Oxygen saturation is normal at rest, and there is borderline oxygen desaturation with ambulation. Gerry Colon MD Pulmonary Medicine Zaki Bui MD PFT ORDERABLES documented in this encounter Visit Diagnoses Diagnosis Lung nodule seen on imaging study Solitary pulmonary nodule Pleural effusion Unspecified pleural effusion documented in this encounter Care Teams Laboratory Equipment Installer Relationship Specialty Start Date End Date Curt Cassidy MD [address] [facility], [facility] [address] [place] [address] PCP - General 10/10/10 documented as of this encounter
--- OUTSIDE RECORDS SUMMARY | 2024-10-30 01:36 | XMS_ITS | Encounter Summary ---
Author Organization [facility] Address [facility] [place] [address] Care Team Providers Care Contract Officer Name Role Phone Curt Cassidy MD Primary Care Provider [phone] Encounter Details Date Type Department Care Team (Latest Contact Info) Description 06/28/2016 2:59 PM EDT - 06/28/2016 11:59 PM EDT Hospital Encounter XRay at [address] [place] [address] Lorie Fuller MD [facility] [address] Chronic pain of both shoulders Discharge Disposition: Home Social History Tobacco Use [...] 11/05/2013 ergocalciferol (VITAMIN D) 50,000 unit capsule 36698 unit, PO, once a month 10/23/2010 risedronate [...] Name Priority Date/Time Associated Diagnosis Comments XR SHOULDER BILAT Routine 06/28/2016 3:1 4 PM EDT Chronic pain of both shoulders documented in this encounter Results * XR shoulder - Bilateral (GENERIC) (06/28/2016 3:14 PM EDT) Anatomical Region Laterality Modality Shoulder Bilateral Digital Radiogra phy Impressions 06/28/2016 4:29 PM EDT RIGHT shoulder prosthesis with questionable articulation between humeral prosthesis and glenoid. Erosions in LEFT humeral head with severe thickened area osteoarthritis in glenohumeral joint. Severe narrowing of LEFT subacromial space suggesting chronic rotator cuff tear. Narrative 06/28/2016 4:29 PM EDT EXAMINATION: XR SHOULDER ??BILATERAL CLINICAL HISTORY: History of RA, prior right shoulder replacement, bilateral shoulder pain with limited ROM TECHNIQUE: 4 views of both shoulders COMPARISON: None FINDINGS: RIGHT shoulder: There is a RIGHT shoulder prosthesis in the proximal humerus. The scapular neck appears overgrown and it is not clear if the humeral prosthesis probably articulate with the glenoid. No periprosthetic fracture or significant periprosthetic lucency is seen. LEFT shoulder: There is severe narrowing of the glenohumeral joint with subchondral sclerosis and marginal osteophytes. There is also severe narrowing of the subacromial space suggesting chronic rotator cuff tear. There are multiple erosions in the humeral head consistent with rheumatoid arthritis. Procedure Note Rafael Mello MD - 06/28/2016 EXAMINATION: XR SHOULDER BILATERAL CLINICAL HISTORY: History of RA, prior right shoulder replacement,bilateral shoulder pain with limited ROM TECHNIQUE: 4 views of both shoulders COMPARISON: None FINDINGS: RIGHT shoulder: There is a RIGHT shoulder prosthesis in the proximalhumerus. The scapular neck appears overgrown and it is not clear if the humeral prosthesis probably articulate with the glenoid. No periprostheticfracture or significant periprosthetic lucency is seen. LEFT shoulder: There is severe narrowing of the glenohumeral joint with subchondral sclerosis and marginal osteophytes. There is also severenarrowing of the subacromial space suggesting chronic rotator cuff tear. There are multiple erosions in the humeral head consistent with rheumatoidarthritis. IMPRESSION RIGHT shoulder prosthesis with questionable articulation between humeral prosthesis and glenoid. Erosions in LEFT humeral head with severe thickened area osteoarthritisin glenohumeral joint. Severe narrowing of LEFT subacromial space suggesting chronic rotator cufftear. Lorie Fuller MD IMG DX ORDERABLES documented in this encounter Visit Diagnoses Diagnosis Chronic pain of both shoulders Pain in joint, shoulder region documented in this encounter Care Teams Contract Officer Relationship Specialty Start Date End Date Curt Cassidy MD [address] [facility] [address] [place] [address] PCP - General 10/10/10 documented as of this encounter
--- OUTSIDE RECORDS SUMMARY | 2024-10-30 01:36 | XMS_ITS | Encounter Summary ---
Author Organization [facility] Address [facility] [place] [address] Care Team Providers Care Optical Model Maker And Tester Name Role Phone Curt Cassidy MD Primary Care Provider Reason for Visit * Reason Comments Medication Refill Encounter Details Date Type Department Care Team (Late st Contact Info) Description 09/29/2014 [place] [address] Rafael Sidhu MD [facility] [place] [address] Social History Tobacco Use Types Packs/Day Years [...] on filedocumented in this encounter Care Teams Optical Model Maker And Tester Relationship Specialty Start Date End Date Curt Cassidy MD [address] [facility], [facility] 3 [place] [address] PCP - General 10/10/10 documented as of this encounter
--- OUTSIDE RECORDS SUMMARY | 2024-10-30 01:36 | XMS_ITS | Encounter Summary ---
Author Organization [facility] Address [facility] [place] [address] Care Team Providers Care Speech Language Pathology Assistant Name Role Phone Curt Cassidy MD Primary Care Provider [phone] Reason for Visit * Reason Comments Left Elbow Pain * Consultation (Routine) - Closed Specialty Diagnoses / Procedures Referred By Keila vargas Referred To Contact Orthopaedics Diagnoses Pain in left elbow Pain in left elbow Rafael Sidhu MD [facility] [address] Lorie Fuller MD [facility] [place] [address] Referral ID Status Reason Start Date Expiration Date V isits Requested Visits Authorized [id number] Closed Consult, Test & Treat 04/30/2016 04/30/2017 1 1 Encounter Details Date Type Department Care Team (Late st Contact Info) Description 06/28/2016 2:30 PM EDT Office Visit Orthopaedics at [place] [phone] Arthritis of left elbow; Chronic pain of both shoulders Social History Tobacco Use Types Packs/Day Years Used Date Smoking Tobacco: Never Smokeless Tobacco: Never Alcohol Use Standard Drinks/Week Comments No 0 (1 standard drink = 0.6 oz pur e alcohol) Sex and Gender Information Value Date Recorded Sex Assigned at Not on file Gender Identity Not on file Sexual Orientation Not on file documented as of this encounter Progress Notes * Laura Lofton PA - 06/28/2016 2:30 PM EDT PATIENT NAME: Marla Denton AGE: 60 y.o. MR#: [id number] DATE OF VISIT: 06/28/2016 DATE OF INJURY/ONSET: Chronic STAFF: Dr. Fuller CHIEF COMPLAINT: Left elbow and shoulder pain HISTORY OF PRESENT ILLNESS: Ms. Denton is a right hand dominant 60 y.o. female who comes into clinic today for evaluation of the left elbow primarily. She was referred to [facility] Ortho by Rafael Sidhu. She states her left elbow has become more uncomfortable over the past few months. She also has some trouble with her left shoulder. She has a history of rheumatoid arthritis and is followed by Dr. Sidhu in our rheumatology department. She denies having any recent trauma to her left arm. She hasbeen having increasing pain in the left elbow with activity. She is fairly comfortable at rest. Shestates that she had an injection in the elbow years ago by her local orthopedist with good, but transient relief. She is not currently undergoing any specific treatments for her elbow. She has not had any prior elbow surgeries, but has had numerous orthopedic procedures due to her rheumatoid arthritis. She states that she has had a prior right shoulder replacement, but has had persistent pain andlimited range of motion since. She was planning on having a shoulder replacement for her left shoulder, but since she was about is pleased with her right shoulder outcome she has elected to continue with nonoperative treatment for her left arm. She uses a cane in her right arm and also recently hashad issues with her left Achilles and is currently in a walking boot. Medications and Allergies were reviewed in [facility] PAST MEDICAL HX: Patient Active Problem List Diagnosis Date Noted ??? Tendonitis, Achilles, left 06/28/2016 ??? Lung nodule seen on imaging study 01/15/2016 ??? Pleural effusion 01/15/2016 ??? Sjogrens syndrome 05/04/2015 ??? Keratitis 05/04/2015 ??? Corneal neovascularization 05/04/2015 ??? Bilateral hand pain with deformities from RA. 03/30/2015 ??? Chronic pain 11/05/2013 ??? Total knee replacement status, left 11/05/2013 ??? Left TKA 11/0211/02/2013 ??? Lateral epicondylitis of elbow 10/30/2013 ??? [...] 10/30/2013 ??? Pain in limb 10/30/2013 ??? custodial (current) use of anticoagulants 10/30/2013 ??? Encounter for long-term (current) use of other medications 10/22/2013 ??? DJD (degenerative joint disease) of knee 09/16/2013 ??? Internal derangement of knee 09/16/2013 ??? RA (rheumatoid arthritis) 05/31/2011 ??? Edema leg 02/01/2011 ??? Cellulitis of leg, right 02/01/2011 ??? Popliteal cyst 02/01/2011 ??? MRSA (methicillin resistant Staphylococcus aureus) infection 02/01/2011 ??? Seronegative rheumatoid arthritis PAST SURGICAL HX: Past Surgical History Procedure Laterality Date ??? Hysterectomy, total abdominal ??? Shoulder surgery ??? Pro total knee arthroplasty 11/02/2013 @TOTAL KNEE ARTHROPLASTY performed by Mayco Montanez Jr., MD at [facility] OR SOCIAL HX: Social History Occupational History ??? Not on file. Social History Main Topics ??? Smoking status: Never Smoker ??? Smokeless tobacco: Never Used ??? Alcohol use No ??? Drug use: No ??? Sexual activity: No ROS: Constitutional: neg HEENT: neg Cardiac: neg Pulmonary: neg GI/: neg Endocrine: neg Skin: neg Musculoskeletal: see HPI PHYSICAL EXAM: Ms. Denton is a 60 y.o. female who is alert and oriented. She appears in no acute discomfort and is resting comfortably in the exam room. Inspection: Skin remains intact over the left elbow. No erythema or ecchymosis. Palpation: She has a palpable elbow effusion with bogginess of the surrounding soft tissues. She istender over the radiocapitellar joint line. Nontender over the forearm. She has noticed some pain over the biceps and triceps with activity. She is not having any significant point tenderness over the shoulder, but has pain with activity. ROM/Strength: Her active shoulder range of motion is limited to about 90?? forward flexion. External rotation is to neutral. She is able to perform active elbow range of motion from 20?? to 130??. She is lacking about 5?? of full pronation and can supinate to about 60??. Neurovascular: Normal motor function of the radial, median, ulnar, axillary and musculocutaneous nerves. Normal sensation along radial, median, ulnar, axillary, and lateral antebrachial cutaneous nerve distributions. Good hand perfusion. RADIOLOGICAL STUDIES: X-rays of the left elbow show no acute injuries. She has extensive arthritic changes throughout the elbow consistent with her history of rheumatoid arthritis. She also has a visible elbow effusion. We do not have any recent films of her shoulders. ASSESSMENT: Left elbow pain with underlying rheumatoid arthritis, left shoulder pain, persistent right shoulder pain and weakness following shoulder replacement PLAN: Dr. Fuller also evaluated and spoke with the patient at today's visit. We will proceed with a fluoroscopy guided injection for her left elbow. Despite having advanced arthritic changes on x-ray, she has been able to maintain a decent arc of motion. If she finds that injections provide adequate pain relief these can be repeated up to every 4 months as needed. If she finds that the injection isnot as effective as she would like there are various surgical options. She may be a candidate for an arthroscopic versus open synovectomy with or without radial head excision. Elbow replacement is also theoretically an option, but would be fairly aggressive in this case. We would also like to obtain x-rays of her bilateral shoulders. Shoulder replacement tends to have a more reliable outcome and depending on the x-ray results she may want to consider additional intervention for her shoulders aswell. We will call her with the results of the shoulder x-rays when available. She can schedule repeat injections as needed for her elbow. If she is thinking about proceeding with surgery for her elbow she should follow-up in Fuller team clinic. The patient understands to contact us if they have any other questions or concerns. The above documentation was completed using [employer] voice recognition software. documented in this encounter Plan of Treatment Not on file documented as of this encounter Results * XR Fluoro Injection [...] pre- procedural time-out was performed as per [facility] protocol. The patient was placed supine on [...] A pre- proceduraltime-out was performed as per [facility] protocol. The patient was placed supine on [...] Fuller MD IMG FLUORO ORDERABLE S * XR shoulder - Bilateral (GENERIC) (06/28/2016 [...] Visit Diagnoses Diagnosis Arthritis of left elbow Chronic pain of both shoulders Pain in joint, shoulder region Chronic pain of both shoulders Pain in joint, shoulder region Arthritis of left elbow documented in this encounter Care Teams Speech Language Pathology Assistant Relationship Specialty Start Date End Date Curt Cassidy MD [address] [facility], [facility] 3 [place] [address] PCP - General 10/10/10 documented as of this encounter
--- OUTSIDE RECORDS SUMMARY | 2024-10-30 01:36 | XMS_ITS | Encounter Summary ---
Author Organization [facility] Address [facility] [place] [address] Care Team Providers Care Pipe Fitter Name Role Phone Curt Cassidy MD Primary Care Provider [phone] Reason for Visit * Reason Onset Date Comments Medication Refill 09/28/2015 Encounter Details Date Type Department Care Team (Late st Contact Info) Description 09/28/2015 [place] [address] Rafael Sidhu MD [facility] [place] [address] Rheumatoid arthritis(714.0) Social History Tobacco Use Types [...] arthritis documented in this encounter Care Teams Pipe Fitter Relationship Specialty Start Date End Date Curt Cassidy MD [address] [facility], [address] [address] PCP - General 10/10/10 documented as of this encounter
--- OUTSIDE RECORDS SUMMARY | 2024-10-30 01:36 | XMS_ITS | Encounter Summary ---
Author Organization [facility] Address [facility] [place] [id number] Care Team Providers Care Debt Collector Name Role Phone Curt Cassidy MD Primary Care Provider [phone] Reason for Visit * Occupational Therapy (Routine) - Closed Specialty Diagnoses / Procedures Referred By Contac t Referred To Contact Occupational Therapy Diagnoses Ulnar deviation of finger of right hand MCP subluxation, 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 Rafael Sidhu MD [facility] [place] [address] [facility] [address] [place] [address] Referral ID Status Reason Start Date Expiration Date V isits Requested Visits Authorized [id number] Closed Evaluate and Treat 04/30/2016 04/30/2017 1 1 Encounter Details Date Type Department Care Team (Late st Contact Info) Description 06/14/2016 3:00 PM EDT Office Visit Occupational Therapy at [facility] [address] [place] [address] Georgette Chaudhary OT [facility] PHYSICAL MEDICINE & [place] [address] Bilateral hand pain with deformities from RA. [...] Progress Notes * Georgette Chaudhary, OT - 06/14/2016 3:00 PM EDT OCCUPATIONAL THERAPY SPLINTING EVALUATION CERTIFICATION PERIOD: 06.14.16 - 07.26.16 REFERRAL SOURCE: Dr. Thea MD DIAGNOSIS: 1. Bilateral hand pain with deformities from RA. DATE OF INJURY: Ongoing for many years DATE OF SURGERY: 2000 left hand, wrist EIP to EPL transfer, debridement of dorsal wrist 2003- right hand debridement and shaving of ulna NEXT MD FOLLOW UP: 07/02/16 TOTAL TREATMENT TIME: 53 Minutes TIMED CODE TREATMENT TIME: 53 minutes CURRENT HISTORY: Marla Denton is a [...] for evaluation and treatment to include splinting. Patient presents today alone. CURRENT SYMPTOMS: Patient presents with bilateral swelling at the MCPs with resting flexed positionwith ulnar deviation. 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 She needed a new splint on the right as the splint did not hold her in neutral and the MCPs were flexed. Marla Denton is able to independently verbalize and demonstrate her home program following instructions today. Marla Terry has good potential for gains with therapy/splinting. [...] Goal Status: Meets PLAN: Marla Denton will trial adjusts on the left splint and try the new right splint. She will return for a follow up for splinting needs up to 3 visits, consideration of fabricated new left splint (X) Marla Denton participated in the evaluation, collaborated on treatment goals, and agrees to the treatment plan . G-Code: Carrying, Moving & Handling Objects Status Modifier CURRENT CK - At least 40 percent but less than 60 percent impaired, limited or restricted PROJECTED CJ - At least 20 percent but less than 40 percent impaired, limited or restricted DISCHARGE Not Discharged Yet - Ongoing G Code Rationale: This G-Code and these [...] hand MCP subluxation, 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 Ordered: 04/30/2016 documented as of this encounter Visit Diagnoses Diagnosis Bilateral hand pain with deformities from RA. Pain in limb documented in this encounter Care Teams Debt Collector Relationship Specialty Start Date End Date Curt Cassidy MD [address] [facility] 3 [place] [address] PCP - General 10/10/10 documented as of this encounter
--- OUTSIDE RECORDS SUMMARY | 2024-10-30 01:36 | XMS_ITS | Encounter Summary ---
Author Organization [facility] [place] [address] Care Team Providers Care Talent Associate Name Role Phone Curt Cassidy MD Primary Care Provider [phone] Reason for Visit * Reason Onset Date Comments Other 11/15/2015 Medication Inter action Encounter Details Date Type Department Care Team (Late st Contact Info) Description 11/15/2015 [place] [phone] Sarah Hill RN Other (Medication Interaction) Social History Tobacco Use Types Packs/Day Years [...] Telephone Encounter - Sarah Hill RN - 11/16/2015 12:31 PM EST The pharmacist will note this on Medication Profile. Marla will continue to receive both medications. Marla will continue Arava with Actemra. * Telephone Encounter - Rafael Sidhu MD - 11/16/2015 7:52 AM EST I realize that this is reported on [email or web address]. However, this is a non-specific interaction inferred because both are immunosuppressive. I am unfamiliar with any specific association. There have been clinical trials that have combined these therapies, I believe. I would add that Ms. Denton has beenon these meds for some time. The biggest immunosuppressive medication for Ms. Denton is her prednisone. I copy Ms. Hill and ask her to fax this note to Marla Hilton's PCP Rafael Sidhu M.D. * Telephone Encounter - Sarah Hill RN - 11/15/2015 11:49 AM EST ED cathy Bethea calls today and would like to discuss a drug interaction with Actemra. Ed states that Marla is taking Arava and this is contraindicated when taking Actemra. I will check with Dr. Sidhu about continuing Arava with Actemra. Marla states Dr. Sidhu told her to continue Arava as well. documented in this encounter Plan of Treatment Not on file documented as of this encounter Visit Diagnoses Not on filedocumented in this encounter Care Teams Talent Associate Relationship Specialty Start Date End Date Curt Cassidy MD [address] [facility], [address] [address] PCP - General 10/10/10 documented as of this encounter
--- OUTSIDE RECORDS SUMMARY | 2024-10-30 01:36 | XMS_ITS | Encounter Summary ---
Author Organization [facility] Address [facility] [place] [address] Care Team Providers Care Command Center Officer Name Role Phone Curt Cassidy MD Primary Care Provider Reason for Visit * Reason Onset Date Comments Bumped Appointment 09/15/2014 Encounter Details Date Type Department Care Team (Late st Contact Info) Description 09/15/2014 Telephone [place] [id number] Mayco Montanez Jr., MD [facility] [place] [address] Bumped Appointment Social History Tobacco Use Types [...] encounter Miscellaneous Notes * Telephone Encounter - Cara Welsh - 09/22/2014 8:23 AM EST Letter sent. * Telephone Encounter - Cara Welsh - 09/20/2014 8:48 AM EST Called twice no voicemail box, to reschedule Dr. Montanez appointment on 10/28/14, can reschedule withPA. * Telephone Encounter - Lucy Vanegas - 09/15/2014 12:01 PM EDT Left message for patient to reschedule Dr Montanez appt. Can reschedule with AP documented in this encounter Plan of Treatment Not on file documented as of this encounter Visit Diagnoses Not on filedocumented in this encounter Care Teams Command Center Officer Relationship Specialty Start Date End Date Curt Cassidy MD [address] [facility], [place] [address] PCP - General 10/10/10 documented as of this encounter
--- OUTSIDE RECORDS SUMMARY | 2024-10-30 01:36 | XMS_ITS | Encounter Summary ---
Author Organization [facility] Address [facility] [place] [address] [place] [address] Care Team Providers Care Mobile Ui Designer Name Role Phone Curt Cassidy MD Primary Care Provider [phone] Reason for Visit * Reason Comments Left Foot Pain left heel * Consultation (Routine) - Closed Specialty Diagnoses / Procedures Referred By Contac t Referred To Contact Orthopaedics Diagnoses Inflammatory heel pain, left Left heel pain Rafael Sidhu MD [facility] [place] [address] Mindy Murillo DPM [facility] [place] [address] Referral ID Status Reason Start Date Expiration Date V isits Requested Visits Authorized [id number] Closed Consult, Test & Treat 04/30/2016 04/30/2017 1 1 Encounter Details Date Type Department Care Team (Late st Contact Info) Description 06/28/2016 11:30 AM EDT Office [place] [address] Mayco Montanez Jr., MD [facility] [place] [address] Achilles tendinitis of left lower extremity; Tendonitis, Achilles, left Social History Tobacco Use Types Packs/Day [...] Sign Reading Time Taken Comments Blood Pressure 140/70 06/28/2016 11:24 AM EDT Pulse 85 06/28/2016 11:24 AM EDT Temperature - - Respiratory Rate - - Oxygen Saturation - - Inhaled Oxygen Concentration - - Weight 68.9 kg (152 lb) 06/28/2016 11:24 AM EDT Height 148.6 cm (4' 10.5) 06/28/2016 11:24 AM E DT Body Mass Index 31.23 06/28/2016 11:24 AM EDT documented in this encounter Progress Notes * Mayco Montanez Jr., MD - 06/28/2016 11:30 AM EDT Patient Active Problem List Diagnosis Date Noted ??? Tendonitis, Achilles, left 06/28/2016 ??? Lung nodule seen on imaging study 01/15/2016 ??? Pleural effusion 01/15/2016 ??? Sjogrens syndrome 05/04/2015 Chronic ??? Keratitis 05/04/2015 Chronic ??? 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 Bilateral hand pain with deformities from RA. 03/30/2015 ??? Chronic pain 11/05/2013 ??? Total knee replacement status, left 11/05/2013 ??? Left TKA 16 11/02/2013 ??? Lateral epicondylitis of elbow 10/30/2013 ??? Orthopnea 10/30/2013 ??? Unspecified essential hypertension 10/30/2013 ??? Unspecified hypothyroidism 10/30/2013 ??? Rheumatoid arthritis(714.0) 10/30/2013 ??? Pain in joint, shoulder region 10/30/2013 Chronic ??? Osteoporosis, unspecified 10/30/2013 ??? Unspecified vitamin D deficiency 10/30/2013 ??? Other pulmonary embolism and infarction 10/30/2013 ??? Other dyspnea and respiratory abnormality 10/30/2013 ??? Abnormal weight gain 10/30/2013 ??? Cervicalgia 10/30/2013 ??? Pain in limb 10/30/2013 ??? 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 Encounter for long-term (current) use of other medications 10/22/2013 ??? DJD (degenerative joint disease) of knee 09/16/2013 ??? Internal derangement of knee 09/16/2013 ??? RA (rheumatoid arthritis) 05/31/2011 ??? Edema leg 02/01/2011 ??? Cellulitis of leg, right 02/01/2011 ??? Popliteal cyst 02/01/2011 ??? MRSA (methicillin resistant Staphylococcus aureus) infection 02/01/2011 ??? Seronegative rheumatoid arthritis PROBLEM: Rheumatoid arthritis, status post bilateral total knee replacements, left posterior heel pain with ambulation. Marla is here today with an extensive problem list with one very painful area that requires treatment. She has developed pain in her retrocalcaneal bursa area, exquisitely tender with her foot dorsiflexed, less tender with her foot plantarflexed. Palpation in the area demonstrates minimal fullness, but marked pain. The rest of her foot looks relatively normal with some MTP joint subluxations, but not real severe rheumatoid foot disease. IMPRESSION: This is retrocalcaneal bursitis. She has a fairly significant pump bump there and I think it is causing some irritation, yet it may respond to conservative treatment and rest. She recalled that we put a boot on her at one point and that that helped her out tremendously. We will set her up for an Ossur Walker Boot for treatment of this retrocalcaneal tendonitis/bursitis and see how she responds. If she is not better in 4 weeks' time, we will see her back. Excision of the bump would be the more aggressive way of taking care of the problem and could be considered if we had to do it. She has tolerated surgical procedures in the past well. The patient was seen at the request of Rafael Sidhu. More than 10 of this 15 minute visit was in [id number] consultation about the nature of the problem, interaction with other problems and the options of treatment. She seemed pleased and will be fitted in ortho care for an Aircast Walker Boot. CC: Rafael Sidhu MD documented in this encounter Plan of Treatment Not on file documented as of this encounter Visit Diagnoses Diagnosis Achilles tendinitis of left lower extremity Achilles bursitis or tendinitis Tendonitis, Achilles, left Achilles bursitis or tendinitis documented in this encounter Care Teams Mobile Ui Designer Relationship Specialty Start Date End Date Curt Cassidy MD [address], [facility] [address] [place] [address] PCP - General 10/10/10 documented as of this encounter
--- OUTSIDE RECORDS SUMMARY | 2024-10-30 01:36 | XMS_ITS | Encounter Summary ---
Author Organization [facility] Address [facility] [place] [address] Care Team Providers Care Industrial Chemist Name Role Phone Curt Cassidy MD Primary Care Provider [phone] Reason for Visit * Reason Comments Dry Eye OU-Sjogrens 6 wk f/u Encounter Details Date Type Department Care Team (Late st Contact Info) Description 07/27/2015 1:15 PM EDT [place] [address] Azael Espinosa MD [facility] [place] [address] Sjogrens syndrome; Keratitis; Corneal neovascularization, bilateral Discharge [...] * Patient Instructions* Azael Espinosa MD - 07/27/2015 2:00 PM EDT Use eye medications as instructed by Dr. Espinosa during your appointment. For non eye medications not prescribed by the Ophthalmology (Eye) Clinic, please follow up with your PCP (primary care provider) for instructions. Please call the eye clinic, [phone], for any significant changes in vision, new flashes or floaters or eye pain documented in this encounter Progress Notes * Azael Espinosa MD - 07/27/2015 1:58 PM EDT Encounter Diagnoses Name Primary? Sjogrens syndrome ??? Keratitis ??? Corneal neovascularization, bilateral Marla Denton is a 59 y.o. with the following ophthalmic problems: Keratitis and corneal neovascularization associated with MALIKA OD>OS in patient with RA on immunosuppression, LL [place] vision plugs OU: Moderate to severe MALIKA given presence of corneal nv ou. Symptoms have improved and stopping restasis OS did not cause problems. She wants to stop it OD to see if it will improve in case its adding to surface toxicity. Plan: PF AT 6 times a day - Follow up 12 wks or as needed - Findings and concerns discussed with Marla and she expressed understanding. Note to Dr. Sidhu -Upon Return IOP MR - gabby if not BCVA of 20/20 documented in this encounter Miscellaneous Notes * Addendum Note - Azael Espinosa MD - 07/27/2015 2:01 PM EDTAddended by: AZAEL ESPINOSA on: 07/27/2015 02:01 PM Modules accepted: Orders, Medications documented in this encounter Plan of Treatment Not on file documented as of this encounter Visit Diagnoses Diagnosis Sjogrens syndrome Sicca syndrome Keratitis Unspecified keratitis Corneal neovascularization, bilateral documented in this encounter Care Teams Industrial Chemist Relationship Specialty Start Date End Date Curt Cassidy MD [address] [facility], [facility] 3 [place] [address] PCP - General 10/10/10 documented as of this encounter
--- OUTSIDE RECORDS SUMMARY | 2024-10-30 01:36 | XMS_ITS | Encounter Summary ---
Author Organization [facility] Address [facility] [address] [place] [address] Care Team Providers Care Petroleum Blending Plant Operator Name Role Phone Curt Cassidy MD Primary Care Provider [phone] Encounter Details Date Type Department Care Team (Late st Contact Info) Description 04/27/2016 Orders [place] [address] Rafael Sidhu MD [facility] [place] [address] Recurrent cellulitis of lower leg Social History [...] foot documented in this encounter Care Teams Petroleum Blending Plant Operator Relationship Specialty Start Date End Date Curt Cassidy MD [address] [facility], [facility] 3 [place] [address] PCP - General 10/10/10 documented as of this encounter
--- OUTSIDE RECORDS SUMMARY | 2024-10-30 01:36 | XMS_ITS | Encounter Summary ---
Author Organization [facility] Address [facility] [place] [address] Care Team Providers Care Property Underwriter Name Role Phone Curt Cassidy MD Primary Care Provider [phone] Reason for Visit * Reason Comments Medication Refill Encounter Details Date Type Department Care Team (Late st Contact Info) Description 02/05/2016 Ref[place] [address] Rafael Sidhu MD [facility] [address] Social History Tobacco Use Types Packs/Day Years [...] on filedocumented in this encounter Care Teams Property Underwriter Relationship Specialty Start Date End Date Curt Cassidy MD [address] [facility], [facility] [address] [place] [address] PCP - General 10/10/10 documented as of this encounter
--- OUTSIDE RECORDS SUMMARY | 2024-10-30 01:36 | XMS_ITS | Encounter Summary ---
Author Organization [facility] Address [facility] [place] [address] Care Team Providers Care Parking Enforcement Specialist Name Role Phone Curt Cassidy MD Primary Care Provider [phone] Reason for Visit * Reason Onset Date Comments Medication Problem 10/26/2015 Tobradex is n ot covered medication, can substitute with Neomycin/Polymixyn/Dexamethasone, patient has used in the past. Encounter Details Date Type Department Care Team (Late st Contact Info) Description 10/26/2015 Refill [place] [address] Azael Espinosa MD [facility] [place] [address] Social History Tobacco Use Types Packs/Day Years [...] encounter Miscellaneous Notes * Telephone Encounter - Mireille Mehta COT - 10/26/2015 4:05 PM EST Patient at pharmacy now for case picker. Tobradex is not covered medication, can substitute with Neomycin/Polymixyn/Dexamethasone, patient has used in the past. Azael Espinosa MD at 10/26/2015 1:52 PM Author Type: Physician Status: Signed Reference Test Clerk: Azael Espinosa MD (Physician) Expand All Collapse All Encounter Diagnoses Name Primary? Keratitis ??? Corneal neovascularization, bilateral Marla Denton is a 60 y.o. with the following ophthalmic problems: Keratitis and corneal neovascularization associated with MALIKA OD>OS in patient with RA on immunosuppression, LL [place] vision plugs OU: Moderate to severe MALIKA [...] on filedocumented in this encounter Care Teams Parking Enforcement Specialist Relationship Specialty Start Date End Date Curt Cassidy MD [address] [place] [address] PCP - General 10/10/10 documented as of this encounter
--- OUTSIDE RECORDS SUMMARY | 2024-10-30 01:36 | XMS_ITS | Encounter Summary ---
Author Organization [facility] Address [facility] [place] [address] Care Team Providers Care Computerized Machine Fabric Cutter Name Role Phone Curt Cassidy MD Primary Care Provider [phone] Encounter Details Date Type Department Care Team (Late st Contact Info) Description 10/13/2014 [place] [phone] Dalila Corbin LPN Social History Tobacco Use Types Packs/Day Years [...] encounter Miscellaneous Notes * Telephone Encounter - Dalila Corbin LPN - 10/13/2014 1:[address] Sidhu wanted this mortgage underwriter to notify pt that the Actonel was changed to Alendronate (fosamax). Called and spoke to Marla and let her know of the change in med in and [facility] [place]. Gabriela said she was on Fosamax in the past but will go back on it if that is what Dr. Sidhu wants. documented in this encounter Plan of Treatment Not on file documented as of this encounter Visit Diagnoses Not on filedocumented in this encounter Care Teams Computerized Machine Fabric Cutter Relationship Specialty Start Date End Date Curt Cassidy MD [address], [address] [address] PCP - General 10/10/10 documented as of this encounter
--- OUTSIDE RECORDS SUMMARY | 2024-10-30 01:36 | XMS_ITS | Encounter Summary ---
Author Organization [facility] Address [facility] [place] [address] Care Team Providers Care Glaucoma Specialist Name Role Phone Curt Cassidy MD Primary Care Provider [phone] Encounter Details Date Type Department Care Team (Late st Contact Info) Description 03/30/2015 11:00 AM EDT Office Visit Occupational Therapy at [facility] [address] [place] [phone] Gerry Ma, OT [facility] & [place] [address] Rafael Sidhu MD [facility] RHEUMATOLOGY [place] [id number] Rheumatoid arthritis; Bilateral hand pain with deformities from RA. Discharge Disposition: Home Social History Tobacco Use [...] as of this encounter Progress Notes * Gerry Ma, OT - 03/30/2015 2:59 PM EDT OCCUPATIONAL THERAPY SPLINTING EVALUATION REFERRAL SOURCE: Rafael Sidhu MD DIAGNOSIS: 1. Rheumatoid arthritis 2. Bilateral hand pain with deformities from RA. DATE OF INJURY: Symptoms for many years DATE OF SURGERY: History of bilateral wrist surgeries 1995, 2002 NEXT MD FOLLOW UP: 06.13.15 TOTAL TREATMENT TIME: 46 Minutes TIMED CODE TREATMENT TIME: 46 minutes CURRENT HISTORY: Marla Denton is a 59 y.o. year old female who has a long history of rheumatoid arthritis with poor tolerance to medications with bilateral hand deformities requiring previous wrist and thumb surgeries. Marla Denton was seen by Dr. Sidhu for recheck today in clinic. Alonso Denton is referred to Occupational Therapy for evaluation and treatment to include splinting for night time to prevent/correct MP joint deformities. Patient presents today alone. OCCUPATION AND ACTIVITIES Work status: Disabled HAND DOMINANCE: Right PAIN: At Rest: 5/10 With Activity: 7/10 DISABILITIES OF THE ARM, HAND, AND SHOULDER (DASH) DASH Score: 64.2 Standardized measurement of functional limitation related to an upper extremity disability, using 0-100 scale indicating percent of perceived functional impairment. TREATMENT TODAY: Ortho Management and treatment ([id number]) Educated patient in etiology and biomechanics as related to patient's symptoms Fabricated bilateral custom resting hand splints Instructed in splint wear and care, splint use at night to prevent finger MP ulnar deviation ASSESSMENT: Marla Denton presents today with functional limitations due to bilateral hand deformities due to RA with right worse than left MP joint ulnar deviation. She has morning pain due to flexed posturing of her fingers at night. Patient has a well fitting splint post therapy. she has less than full motion today as expected. She will call with any questions or concerns. Short Term Goals (to be met by end of the visit today): Date Goal Met: 03.30.15 1. Marla Denton will be independent with home program including splinting donning and doffing Goal Status: Meets today with demonstration today. PLAN: Splinting to provide support and protection to the joint Recheck in clinic for splint adjustments. (X) Marla Denton participated in the evaluation, collaborated on treatment goals, and agrees to the treatment plan . documented in this encounter Plan of Treatment Not on file documented as of this encounter Visit Diagnoses Diagnosis Rheumatoid arthritis Bilateral hand pain with deformities from RA. Pain in limb documented in this encounter Care Teams Glaucoma Specialist Relationship Specialty Start Date End Date Curt Cassidy MD [address] [facility], [facility] 3 [place] [address] PCP - General 10/10/10 documented as of this encounter
--- OUTSIDE RECORDS SUMMARY | 2024-10-30 01:36 | XMS_ITS | Encounter Summary ---
Author Organization [facility] Address [facility] [place] [address] Care Team Providers Care Home Health Care Worker Name Role Phone Curt Cassidy MD Primary Care Provider [phone] Reason for Visit * Reason Comments Sicca Syndrome (Sjogren's) pt for extrem e dry eye eval Rheumatoid Arthritis severe Encounter Details Date Type Department Care Team (Late st Contact Info) Description 05/04/2015 1:00 PM EDT Office [place] [address] Azael Espinosa MD [facility] [place] [address] Rheumatoid arthritis; Sjogrens syndrome; Keratitis; Corneal neovascularization, bilateral Discharge [...] * Patient Instructions* Azael Espinosa MD - 05/04/2015 2:28 PM EDT Use eye medications as instructed by Dr. Espinosa during your appointment. For non eye medications not prescribed by the Ophthalmology (Eye) Clinic, please follow up with your PCP (primary care provider) for instructions. Please call the eye clinic, [phone], for any significant changes in vision, new flashes or floaters or eye pain documented in this encounter Progress Notes * Azael Espinosa MD - 05/04/2015 2:17 PM EDT Encounter Diagnoses Name Primary? Rheumatoid arthritis ??? Sjogrens syndrome ??? Keratitis ??? Corneal neovascularization, bilateral Marla Denton is a 59 y.o. with the following ophthalmic problems: Keratitis and corneal neovascularization associated with MALIKA OD>OS in patient with RA on immunosuppression: Moderate to severe MALIKA given presence of corneal nv ou. Placed bilateral lower eye lid [place] vision 0.9 mm punctal plugs today after alcaine and betadine. May consider stopping restasis as she is on systemic immunosuppression and it may add to ocular surface toxicity. Also discussed tarsorrhaphy, PROSE device and possible thermal cautery is the punctal plugs are notsufficent. Plan: - continue restasis and PF AT for now - Follow up 4-6 wks or as needed - Findings and concerns discussed with Marla and she expressed understanding. Note to Dr. Sidhu -Upon Return IOP MR - gabby if not BCVA of 20/20 documented in this encounter Plan of Treatment Not on file documented as of this encounter Visit Diagnoses Diagnosis Rheumatoid arthritis Sjogrens syndrome Sicca syndrome Keratitis Unspecified keratitis Corneal neovascularization, bilateral documented in this encounter Care Teams Home Health Care Worker Relationship Specialty Start Date End Date Curt Cassidy MD [address] [facility] 3 [place] [address] PCP - General 10/10/10 documented as of this encounter
--- OUTSIDE RECORDS SUMMARY | 2024-10-30 01:36 | XMS_ITS | Encounter Summary ---
Author Organization [facility] Address [facility] [place] [address] Care Team Providers Care Director Pharmacology Name Role Phone Curt Cassidy MD Primary Care Provider [phone] Reason for Visit * Reason Comments Follow-up Encounter Details Date Type Department Care Team (Late st Contact Info) Description 08/22/2015 2:45 PM EDT Office [place] [address] Rafael Sidhu MD [facility] [place] [place] [address] Rheumatoid arthritis(587.0); Zoster Social History Tobacco Use Types Packs/Day Years [...] Sign Reading Time Taken Comments Blood Pressure 137/74 08/22/2015 3:25 PM EDT Pulse 93 08/22/2015 3:25 PM EDT Temperature 36.5 ??C (97.7 ??F) 08/22/2015 3:25 PM ED T Respiratory Rate 18 08/22/2015 3:25 PM EDT Oxygen Saturation 99% 08/22/2015 3:25 PM EDT Inhaled Oxygen Concentration - - Weight 70.3 kg (155 lb) 08/22/2015 3:25 PM EDT Height - - Body Mass Index 31.84 03/14/2015 11:51 AM EDT documented in this encounter Patient Instructions * Patient Instructions* Rafael Sidhu MD - 08/22/2015 4:08 PM EDT 1. Labs today 2. Maintain Actemra injections 3. Acyclovir 800 mg once a day for shingles prophylaxis, has had recurrence. documented in this encounter Progress Notes * Rafael Sidhu MD - 08/22/2015 3:18 PM EDT Marla Denton is a 59-year-old [...] to 8 mg/kg was recommended. Interval History: She arrived 18 minutes late today after missing a prior appointment. 6 month f/u with persistent active RA who has failed every agent but with numerous comorbitidies that often confound the situation. She did not like the Actemra infusions as she has poor veins and when I last saw her in we attempted to get her sq Actemra 162 mg/week. 1. Rheumatoid Arthritis: Still on leflunomide and prednisone 7.5 mg/d. Obtained Actemra in March 2015, then had interruption in May, then weekly in June. Had last 3 weeks, missed a dose in the last two months. No difference in her symptoms. Hurts all am Biggest issue is right hand, ankles, feet, time. Still having chronic pain in ankles and feet. 2. Severe knee pain with TKR underwent left showing: medial DJD with lush synovitis and medial and lateral meniscal tears. Still 'stiff'. Occasional 3. No recurrent blood clots. Still on coumadin. No bleeding 4. Complained of dry eyes: Had lacrimal duct plugging. Stopped the Restasis, using topicals only. Just taking prednisone 10 mg/d. Still taking [...] due to nausea 9. TCZ (Actemra) started , no response to 4 mg/kg x 3 [...] osteomyelitic vs cellulitis with RA. 4. DXA ([place] 2004: -1.3 SD low at spine; 1 [...] due to left knee pain Blood pressure 137/74, pulse 93, jejavcldnbp58.5 ??C (97.7 ??F), temperature source Oral, resp. rate 18, weight 70.308 kg (155 lb), SpO2 99 %.HEENT:normal. Neck decreased flexion. Shoulders: decreased abduction left shoulder, right not tested.Elbows: no longer had tenderness of entire dorsal compartment of right right forearm up to the lateral epicondyle. The elbow moves much better. Left okay. Wrists unimpressive for synovitis Bilateral CMC tenderness. Hands: SJC/TJC: 6/6 in hands alone.. Early ulnar deviation of MCP. Her left TKR is well healed and there is diffuse swelling to the dorsum of the foot. Left Achilles very tender to thetouch. Ankles: tender without warmth. MTP joints splaying and very tender. VARGAS 28 Joint Count TJC: 6 SJC 6 (down from 20) Patient global 5, Physician global 5. CDAI 36 last visit now 22 Impression: Persistent active RA who has failed every agent but with numerous comorbitidies. Actemra was impossible IV due to the absence of venous access. Trying sq Actemra with evidence of clinicalsuccess. Very concerned about recurrent Zoster, previously had before 2010. Plan: 1. RA: with hypergammaglobulinemia Labs today and continue ACTEMRA sub cut weekly 2. Left knee arthritis stable 3. Oropharyngeal/esophageal nan: no recurrence. 4. Return 4 months so that patient has had full 6 month trial of tCZ 5. Consider steroid taper to 5 mg/d if labs are looking okay, but not before 12 weeks of continued TCZ 6. Sicca: still severe: per Dr. Espinosa Level 4 F/u visit Rafael Sidhu M.D. Staff Hydramatic Mechanic documented in this encounter Plan of Treatment Not on file documented as of this encounter Results * High Sensitivity CRP (08/22/2015 4:51 PM EDT) C-Reactive Protein High Sensitivity 25.6 mg/L [facility] Comment: Interpretations: 1) For accurate cardiac risk [...] In Lab Rafael Sidhu MD CHEMISTRY ORDERABLES [facility] * (ABNORMAL) Comprehensive metabolic panel (non-fasting) (08/22/2015 4:51 PM EDT) Pathologist [facility] Glucose 81 65 - 199 mg/dL [facility] Comment:Diabetes: >=200 mg/d L plus symptoms Blood Urea Nitrogen 9 8 - 18 mg/dL [facility] Creatinine 0.83 0.70 - 1.20 mg/dL [facility] Comment: Please note that the pediatric reference intervals supplied above were not validated at [facility]. Results from pediatric patients should be interpreted [...] the following links into your internet browser. [email or web address] Blood specimen (specimen) 08/22/2015 4:51 PM EDT 08/22/2015 4:58 PM EDT Narrative Resulting Agency Comment Spec In Lab Rafael Sidhu MD CHEMISTRY ORDERABLES Performing Organization Address City/State/[facility] Co ut Phone Number [facility] documented in this encounter Visit Diagnoses Diagnosis Rheumatoid arthritis(714.0) Rheumatoid arthritis Zoster Herpes zoster without mention of complication documented in this encounter Care Teams Director Pharmacology Relationship Specialty Start Date End Date Curt Cassidy MD [address] [facility], [place] [address] PCP - General 10/10/10 documented as of this encounter
--- OUTSIDE RECORDS SUMMARY | 2024-10-30 01:36 | XMS_ITS | Encounter Summary ---
Author Organization [facility] Address [facility] [place] [address] Care Team Providers Care Balance Wheel Arm Burnisher Name Role Phone Curt Cassidy MD Primary Care Provider [phone] Encounter Details Date Type Department Care Team (Late st Contact Info) Description 05/01/2016 Telephone [place] [phone] Bernard Neville Social History Tobacco Use Types Packs/Day Years [...] encounter Miscellaneous Notes * Telephone Encounter - Bernard Neville - 05/01/2016 12:15 PM EDT Marla has an appointment with Dr. Sidhu on 07/02/16 @ 1:00pm. She stated that Dr. Sidhu requested to have her sister Yana attend the appointment with her so that he could compare their conditions/symptoms. Marla asked if Yana needs to schedule an appointment for that same date/time with Dr. Sidhu, or if she should just attend the appointment with her. I advised patient that I would clarify with Dr. Sidhu and call her back. documented in this encounter Plan of Treatment Not on file documented as of this encounter Visit Diagnoses Not on filedocumented in this encounter Care Teams Balance Wheel Arm Burnisher Relationship Specialty Start Date End Date Curt Cassidy MD [address], [place] [id number] PCP - General 10/10/10 documented as of this encounter
--- OUTSIDE RECORDS SUMMARY | 2024-10-30 01:36 | XMS_ITS | Encounter Summary ---
Author Organization [facility] Address [facility] [place] [address] Care Team Providers Care Marine Structural Welder Name Role Phone Curt Cassidy MD Primary Care Provider [phone] Encounter Details Date Type Department Care Team (Late st Contact Info) Description 11/08/2015 Telephone [place] [phone] Sarah Hill RN Social History Tobacco Use Types Packs/Day [...] Encounter - Sarah Hill RN - 11/08/2015 11:17 AM EST Marla calls to report that she is taking Actemra and she lost the number for [facility] to request a refill. I provided the number to her. She will call today. documented in this encounter Plan of Treatment Not on file documented as of this encounter Visit Diagnoses Not on filedocumented in this encounter Care Teams Marine Structural Welder Relationship Specialty Start Date End Date Curt Cassidy MD [address] [facility], [facility] [address] [place] [address] PCP - General 10/10/10 documented as of this encounter
--- OUTSIDE RECORDS SUMMARY | 2024-10-30 01:36 | XMS_ITS | Encounter Summary ---
Author Organization [facility] Address [facility] [place] [address] Care Team Providers Care Ethylbenzene Converter Operator Name Role Phone Curt Cassidy MD Primary Care Provider [phone] Encounter Details Date Type Department Care Team (Latest Contact Info) Description 06/28/2016 10:30 AM EDT Hospital Encounter XRay at [address] [place] [address] Rafael Sidhu MD [facility] [address] [place] [address] Inflammatory heel pain, left Discharge Disposition: Home Social History [...] 11/05/2013 ergocalciferol (VITAMIN D) 50,000 unit capsule 94497 unit, PO, once a month 10/23/2010 risedronate [...] Name Priority Date/Time Associated Diagnosis Comments XR FOOT MIN 3 VIEWS LEFT Routine 06/28/2016 10:55 AM EDT Inflammatory heel pain, left documented in this encounter Results * XR Foot Minimum [...] documented in this encounter Visit Diagnoses Diagnosis Inflammatory heel pain, left documented in this encounter Care Teams Ethylbenzene Converter Operator Relationship Specialty Start Date End Date Curt Cassidy MD [address] [facility], [facility] [address] [place] [address] PCP - General 10/10/10 documented as of this encounter
--- OUTSIDE RECORDS SUMMARY | 2024-10-30 01:36 | XMS_ITS | Encounter Summary ---
Author Organization [facility] Address [facility] [place] [address] Care Team Providers Care Echo Tech Name Role Phone Curt Cassidy MD Primary Care Provider [phone] Reason for Visit * Reason Comments Medication Refill Encounter Details Date Type Department Care Team (Late st Contact Info) Description 09/21/2015 [place] [address] Rafael Sidhu MD [facility] [place] [place] [address] Social History Tobacco Use Types Packs/Day Years [...] on filedocumented in this encounter Care Teams Echo Tech Relationship Specialty Start Date End Date Curt Cassidy MD [address] [facility], [facility] 3 [place] [address] PCP - General 10/10/10 documented as of this encounter
--- OUTSIDE RECORDS SUMMARY | 2024-10-30 01:36 | XMS_ITS | Encounter Summary ---
Author Organization [facility] Address [facility] [place] [address] Care Team Providers Care Energy Operations Vice President Name Role Phone Curt Cassidy MD Primary Care Provider [phone] Reason for Visit * Reason Comments Medication Refill Encounter Details Date Type Department Care Team (Late st Contact Info) Description 12/21/2015 [place] [address] Rafael Sidhu MD [facility] [address] Social History Tobacco Use Types Packs/Day Years [...] on filedocumented in this encounter Care Teams Energy Operations Vice President Relationship Specialty Start Date End Date Curt Cassidy MD [address] [facility], [facility] 3 [place] [address] PCP - General 10/10/10 documented as of this encounter
--- OUTSIDE RECORDS SUMMARY | 2024-10-30 01:36 | XMS_ITS | Encounter Summary ---
Author Organization [facility] Address [facility] [place] [place] [address] Care Team Providers Care Student Development Coordinator Name Role Phone Curt Cassidy MD Primary Care Provider [phone] Encounter Details Date Type Department Care Team (Late st Contact Info) Description 10/13/2014 Orders [place] [address] Rafael Sidhu MD [facility] [place] [address] Osteoporosis Social History Tobacco Use Types Packs/Day Years [...] as of this encounter Visit Diagnoses Diagnosis Osteoporosis Osteoporosis, unspecified documented in this encounter Care Teams Student Development Coordinator Relationship Specialty Start Date End Date Curt Cassidy MD [address] [facility], [address] [id number] PCP - General 10/10/10 documented as of this encounter
--- OUTSIDE RECORDS SUMMARY | 2024-10-30 01:36 | XMS_ITS | Encounter Summary ---
Author Organization [facility] Address [facility] [place] [place] [place] [address] Care Team Providers Care Cardiographer Name Role Phone Junior Cassidy MD Primary Care Provider [phone] Encounter Details Date Type Department Care Team (Late st Contact Info) Description 12/19/2015 1:30 PM EST Office [place] [id number] Rafael Sidhu MD [facility] [place] [address] [place] [address] Rheumatoid arthritis(011.0); ABDULLAHI (dyspnea on exertion); Hypoxemia Social History Tobacco Use Types Packs/Day Years [...] Sign Reading Time Taken Comments Blood Pressure 155/72 12/19/2015 1:21 PM EST Pulse 92 12/19/2015 1:21 PM EST Temperature 36.2 ??C (97.2 ??F) 12/19/2015 1:21 PM ES T Respiratory Rate - - Oxygen Saturation 92% 12/19/2015 1:21 PM EST Inhaled Oxygen Concentration - - Weight 114.8 kg (253 lb) 12/19/2015 1:21 PM EST Height 148 cm (4' 10.25) 12/19/2015 1:21 PM EST Body Mass Index 52.42 12/19/2015 1:21 PM EST documented in this encounter Patient Instructions * Patient Instructions* Rafael Sidhu MD - 12/19/2015 2:09 PM EST 1. Labs today documented in this encounter Progress Notes * Rafael Sidhu MD - 12/19/2015 1:48 PM EST Marla Denton is a 60-year-old [...] comes in today in 4 month f/u. Her joints are not as much of a concern to kj her dyspnea associated with her O2 going from 95 to 89 on walking that happened several months ago. She relates that this has been present since March of 2015 with episodic progression/worsening with the most recent flare being the last 3 months. It has been associated with pleuritic pain that is i nterscapular in location. PFTS show findings consistent with poor effort or poorly calibrated machinery. CT scan of chest showed little or no findings except for a 6 mm nodule and some atelectasis. She reports taking Actemra weekly including last Saturday, although her CRP was elevated at Dr. Cassidy's office last month. 1. Severe knee pain with TKR underwent left showing: medial DJD with lush synovitis and medial and lateral meniscal tears. Still 'stiff'. Occasional 2. No recurrent blood clots. Still on coumadin. No bleeding 3. Complained of dry eyes: Had lacrimal duct [...] - LE 17. Followed by ID - Mike sierra weekly, in 2009. Much less at f/u in 8.10. Left 5th big toe infection, not clearly osteomyelitic vs cellulitis with RA. 4. DXA ([place] 2004: -1.3 SD low at spine; 1 [...] due to left knee pain Blood pressure 155/72, pulse 92, [id number] ??C (97.2 ??F), temperature source Oral, height 148 cm (4' 10.25), weight 114.76 kg (253 lb),SpO2 92 %.HEENT:normal. Cor: 2/6 LYNNE ULSB heard, no increased P2. Chest: Splinting with some tenderness at the level of T3-4 with right sided medial scapular border tenderness. Neck decreased flexion. Shoulders: decreased abduction left shoulder, right not tested. Elbows: no longer had tenderness of entire dorsal compartment of right right forearm up to the lateral epicondyle. The elbow moves much better. Left okay. Wrists unimpressive for synovitis Bilateral CMC tenderness. Hands: SJC/TJC: 6/6in hands alone, marked synovitis.. Early ulnar deviation of MCP. Her left TKR is well healed and there is diffuse swelling to the dorsum of the foot. Left Achilles very tender to the touch. Ankles: tender without warmth. MTP joints splaying and very tender. Impression: Persistent active RA who has failed every agent but with numerous comorbitidies maintained on Actemra/Arava. Nothing easily accounts for her reports of hypoxia on exercise. The pain she describes in her back is not obviously referred from the pulmonary or pleural structures. Some referred pain from neck is possible.. Plan: 1. RA: with hypergammaglobulinemia Labs today including CRP and serum IL6 level (should be elevated) 2. Left knee arthritis stable 3. Oropharyngeal/esophageal nan: no recurrence. 4. ABDULLAHI: Arrange for cardiac echo to be done 2.12.16 with pulmonary evaluations 5. RTC 4-6 months Level 4 F/u visit Rafael Sidhu M.D. Staff Personnel Arbitrator documented in this encounter Plan of Treatment Not on file documented as of this encounter Procedures Procedure Name Priority Date/Time Associated Diagnosis Comments INTERLEUKIN-6 Routine 12/19/2015 2:36 PM EST Rheumatoid arthritis(714.0) HEMOGRAM Routine 12/19/2015 2:36 PM EST Rheumatoid arthritis(714.0) DIFFERENTIAL, AUTOMATED Routine 12/19/2015 2:36 PM EST Rheumatoid arthritis(714.0) CBC (WITH DIFF) Routine 12/19/2015 2:36 PM EST Rheumatoid arthritis(714.0) CRP, CARDIAC RISK (HS CRP) Routine 12/19/2015 2:36 PM EST Rheumatoid arthritis(714.0) COMPREHENSIVE METABOLIC PANEL Routine 12/19/2015 2:36 PM EST Rheumatoid arthritis(714.0) documented in this encounter Results * ECHO COMPLETE (12/30/2015 3:41 PM EST) EF 65 HEARTLAB SYSTEM Anatomical Region Laterality Modality Other 12/30/2015 Narrative 12/30/2015 4:20 PM EST Procedure: ?Transthoracic Echocardiogram Patient: ?CORRIE MARLA E ? (Age): 1955(60y) Med Rec#: ? [id number] ?Sex: ?F ? [place] Loc: ? [facility] [place] ?Ht / Wt: ??149(cm)/69.4(kg Pt. Loc: ?Echo Lab ?BSA: ?1.64 Study Date: ?? 12/30/2015 ?Pt. Type: Outpatient Tape: ? Referring: Rafael Sidhu Referring: JUNIOR CASSIDY D Reading: Mac Werner ([id number]) Spinning Room Worker: Debbie Quach Diagnosis: *ICD-10-PCS Hypoxemia (R09.02) *ICD-10-PCS Dyspnea, unspecified (R06.00) CPT Codes: *Echo Full (19971) *Spectral Doppler (85817) *Color Doppler (78850) BP: ? 148/89 SUMMARY: 1. Left ventricular [...] ? Mid-Inferior ?Normal ? Mid-Inferoseptal ?Normal ? [place]-Septal ? Normal ? [place]-Anterior ? Normal ? [place]-Lateral ?Normal ? [place]-Inferior ? Normal ? [place]-Tip ?Normal ? This report has been electronically signed by: Mac Werner M.D. ? 12/30/2015 16:19:57 Images reviewed and interpretation verified [facility] Cardiac Ultrasound Laboratory Procedure Note Mac Werner MD - 12/30/2015 Procedure: Transthoracic Echocardiogram Patient: CORRIE DEL CASTILLO(Age): 1955(60y) Med Rec#: [id number] Sex: F Site Loc: [facility] [place] Ht / Wt: 149(cm)/69.4(kg Pt. Loc: Echo Lab BSA: 1.64 Study Date: 12/30/2015 Pt. Type: Outpatient Tape: Referring: Rafael Sidhu Referring: JUNIOR CASSIDY D Reading: Mac Werner ([id number]) Spinning Room Worker: Debbie Quach Diagnosis: *ICD-10-PCS Hypoxemia (R09.02) *ICD-10-PCS Dyspnea, unspecified (R06.00) CPT Codes: *Echo Full (48848) *Spectral Doppler (69164) *Color Doppler (81427) BP: 148/89 SUMMARY: 1. Left ventricular chamber [...] Normal Mid-Posterolateral Normal Mid-Inferior Normal Mid-Inferoseptal Normal [place]-Septal Normal [place]-Anterior Normal [place]-Lateral Normal [place]-Inferior Normal [place]-Tip Normal This report has been electronically signed by: Mac Werner M.D. 12/30/2015 16:19:57 Images reviewed and interpretation verified [facility] Cardiac Ultrasound Laboratory Rafael Sidhu MD ECHO ORDERABLES * (ABNORMAL) Differential, Automated (12/19/2015 2:36 PM EST) Neutrophil % 67.5 % CERNER MILLENNIUM Neutrophil Absolute 6.36(H) 1.50 - 6.30 x10(3)/mc L CERNER MILLENNIUM Lymph % 19.5 % CERNER MILLENNIUM Lymphocytes Abs 1.8 1.0 - 3.6 x10(3)/mc L CERNER MILLENNIUM Monocyte % 10.4 % CERNER MILLENNIUM Monocyte Abs 1.0 0.2 - 1.0 x10(3)/mc L CERNER MILLENNIUM Eos % 2.0 % CERNER MILLENNIUM Eosinophils Abs 0.2 0.0 - 0.5 x10(3)/mc L CERNER MILLENNIUM Basophil % 0.4 % CERNER MILLENNIUM Baso Absolute 0.0 0.0 - 0.2 x10(3)/mc L CERNER MILLENNIUM Immature Gran % 0.20 % CERN ER MILLENNIUM Comment: Immature granulocytes(IG's)percentage and absolute count will include metamyelocytes, myelocytes, and promyelocytes. Blood smears from CBCs yielding IG's will be scanned manually for concordance. If this scan disagrees with the automated IG or if promyelocytes are noted, a manual differential will be performed. Immature Gran Absolute 0.02 0.00 - 0.05 x10(3)/mc L CERNER MILLENNIUM Blood specimen (specimen) 12/19/2015 2:36 PM EST 12/19/2015 2:45 PM EST Narrative Resulting Agency Comment Spec In Lab Rafael Sidhu MD HEMATOLOGY ORDERABLE S CERNER MILLENNIUM * (ABNORMAL) Hemogram (12/19/2015 2:36 PM EST) Pathologist [facility] White Blood Cell 9.4 4.0 - 10.0 x10(3)/mc L [facility] MILL[facility] Red Blood Cell 4.41 3.93 - 5.22 x10(6)/mc L CERNER MILLENNIUM Hemoglobin 13.0 11.2 - 15.7 gm/dL [facility] MILLEN[facility]UM Hematocrit 41.2 34.0 - 45.0 % CERNER MILLENNIUM Mean Cell Volume 93.4 79.0 - 94.0 fL CERNER MILLENNIUM Mean Cell Hemoglobin 29.5 26.6 - 32.2 pg CERNER MILLENNIUM Mean Cell Hemoglobin Concentration 31.6(L) 32.0 - 36.5 gm/dL [facility]ILL[facility] Platelet 369 145 - 370 x10(3)/mc L CERNER MILLENNIUM RDW Standard Deviation 49.0(H) 35.0 - 46.0 fL CERNER MILLENNIUM RDW coefficient of variation 14.4 10.9 - 14.4 % CERNER MILLENNIUM Mean Platelet Volume 9.5 9.0 - 12.0 fL CERNER MILLENNIUM Blood specimen (specimen) 12/19/2015 2:36 PM EST 12/19/2015 2:45 PM EST Narrative Resulting Agency Comment Spec In Lab Rafael Sidhu MD HEMATOLOGY ORDERABLE S [facility] * High Sensitivity CRP (12/19/2015 2:36 PM EST) [facility] C-Reactive Protein High Sensitivity 33.8 mg/L CERNER MILLENNIUM Comment: Interpretations: 1) For [...] and Cardiovascular Disease. ??Circulation 2003; 107:499-511 2. [place] PM. ??Clinical applications of C-reactive protein for cardiovascular disease detection and prevention. ??Circulation 2003; 107:363-369 Blood specimen (specimen) 12/19/2015 2:36 PM EST 12/19/2015 2:45 PM EST Narrative Resulting Agency Comment Spec In Lab Rafael Sidhu MD CHEMISTRY ORDERABLES CERNER MILLENNIUM * (ABNORMAL) Comprehensive metabolic panel (non-fasting) (12/19/2015 2:36 PM EST) Glucose 97 65 - 199 mg/dL CERNER MILLENNIUM Comment:Diabetes: >=200 mg/d L plus symptoms Blood Urea Nitrogen 9 8 - 18 mg/dL CERNER MILLENNIUM Creatinine 0.86 0.70 - 1.20 mg/dL CERNER MILLENNIUM Comment: Please note that the pediatric reference intervals supplied above were not validated at [facility]. Results from pediatric patients should be interpreted in conjunction to the patient's age, height and muscle mass. Sodium 139 135 - 145 mmol/L CERNER MILLENNIUM Potassium 4.1 3.5 - 5.0 mmol/L CERNER MILLENNIUM Comment: Please note: ??Patients with WBC >100,000 may have falsely elevated Potassium levels. ??For accurate Potassium quantification in these patients send serum separator tube (gold top) for subsequent determinations. ??Contact the Clinical Chemistry Laboratory if there are any questions. Chloride 97(L) 98 - 107 mmol/L CERNER MILLENNIUM Carbon Dioxide 29 22 - 31 mmol/L CERNER MILLENNIUM Anion Gap 13 5 - 15 mmol/L CERNER MILLENNIUM Calcium 9.2 8.5 - 10.5 mg/dL CERNER MILLENNIUM Protein, Total 8.6(H) 6.1 - 8.0 gm/dL CERNER MILLENNIUM Albumin 4.1 3.2 - 5.2 gm/dL CERNER MILLENNIUM Aspartate Aminotransferase 20 0 - 30 unit/L CERNER MILLENNIUM Alanine Aminotransferase 10 0 - 30 unit/L CERNER MILLENNIUM Alkaline Phosphatase 115(H) 40 - 104 unit/L CERNER MILLENNIUM Bilirubin, [...] the following links into your internet browser. http://[employer])/DHnkdep http://[employer])/DHMCnkf Blood specimen (specimen) 12/19/2015 2:36 PM EST 12/19/2015 2:45 PM EST Narrative Resulting Agency Comment Spec In Lab Rafael Sidhu MD CHEMISTRY ORDERABLES [facility] * (ABNORMAL) Interleukin-6 (12/19/2015 2:36 PM EST) Interleukin-6 (QST) 33.36(H) 0.31 - 5.00 pg/mL CERNER MILLENNIUM Comment: Please see scanned report in Chart Review under the Non- Laboratory Heading. This test was performed using a kit that has not been approved or cleared by the FDA. The analytical performance characteristics of this test have been determined by [facility]. This test should not be used for diagnosis without confirmation by other medically established means. Test performed by [facility], [address] [place] [address] Blood specimen (specimen) 12/19/2015 2:36 PM EST 12/19/2015 3:40 PM EST Narrative Resulting Agency Comment Spec In Lab Rafael Sidhu MD LAB SEND OUT ORDERAB LES [facility] documented in this encounter Visit Diagnoses Diagnosis Rheumatoid arthritis(714.0) Rheumatoid arthritis ABDULLAHI (dyspnea on exertion) Other dyspnea and respiratory abnormality Hypoxemia ABDULLAHI (dyspnea on exertion) Other dyspnea and respiratory abnormality Hypoxemia documented in this encounter Care Teams Cardiographer Relationship Specialty Start Date End Date Junior Cassidy MD [address] [place] [address] PCP - General 10/10/10 documented as of this encounter
--- OUTSIDE RECORDS SUMMARY | 2024-10-30 01:36 | XMS_ITS | Encounter Summary ---
Author Organization [place] [address] Care Team Providers Care Ballistician Name Role Phone Curt Cassidy MD Primary Care Provider [phone] Reason for Referral * Diagnostic Test (Routine) - Closed Specialty Diagnoses / Procedures Referred By Contac t Referred To Contact Radiology Diagnoses Lung nodule seen on imaging study Pleural effusion Procedures CT Chest Wo Contrast (GENERIC) Zaki Galdamez MD [facility] [place] [address] [facility] [place] [address] Referral ID Status Reason Start Date Expiration Date V isits Requested Visits Authorized [id number] Closed Specialty Service Requested 04/14/2016 04/14/2017 1 1 Reason for Visit * Reason Comments Referral * Consultation (Routine) - Closed Specialty Diagnoses / Procedures Referred By Contac t Referred To Contact Pulmonology Diagnoses Chest pain chest pain, lung nodule, orthopnea, pulm empolism, dyspnea on exertion, rheumatoid arthritis Curt Cassidy MD [address] [place] [address], [address] [address] [facility] [address] [place] [address] Referral ID Status Reason Start Date Expiration Date V isits Requested Visits Authorized [id number] Closed Evaluate and [facility] 11/23/2015 11/22/2016 1 1 Encounter Details Date Type Department Care Team (Late st Contact Info) Description 12/30/2015 11:00 AM EST Office Visit Pulmonology at [facility] [place] [address] Zaki Galdamez MD [facility] [place] [address] Lung nodule seen on imaging study; Pleural effusion Social History Tobacco Use Types Packs/Day Years [...] Sign Reading Time Taken Comments Blood Pressure 145/91 12/30/2015 11:13 AM EST Pulse 94 12/30/2015 11:13 AM EST Temperature - - Respiratory Rate 22 12/30/2015 11:13 AM EST Oxygen Saturation 100% 12/30/2015 11:13 AM EST Inhaled Oxygen Concentration - - Weight 69.4 kg (153 lb) 12/30/2015 11:13 AM EST Height 178.4 cm (5' 10.25) 12/30/2015 11:13 AM EST Body Mass Index 21.8 12/30/2015 11:13 AM EST documented in this encounter Progress Notes * Zaki Galdamez MD - 12/30/2015 12:05 PM EST PULMONARY MEDICINE CONSULTATION Consulted by CURT CASSIDY MD to evaluate this patient for interstitial lung disease. I have personally interviewed and examined the patient on12/30/2015, and reviewed the patient's radiographic studies and laboratory data. HPI: In brief, Marla Denton is a 60 y.o. female with a chief complaint of chest pains, for about a year, pleuritic in nature. Pain is respirophasic, started on L, now bilateral. She c/o dyspnea on exertion, and apparently has demonstrtaed mild exertional desaturation (89% by her report at her PCP's office). She does give a hx s/o Raynaud's phenomenon, so the finger oximeters are not necessarily reliable, but It correlated with severe ABDULLAHI. No cough; + occasional wheezing. 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 No hx PAH, but never had ECHO (getting one this afternoon). No fevers, rashes. + Hand, knee, shoulder pains. Currently RA is not under good control, but Dr. Sidhu is working [place]. No occupational/environmental exposures PAST MEDICAL HISTORY: Patient Active Problem List [...] I10 ??? Unspecified hypothyroidism E03.9 ??? Rheumatoid arthritis M06.9 ??? Pain in joint, shoulder region M25.519 ??? Osteoporosis, unspecified M81.0 ??? Unspecified vitamin D deficiency E55.9 ??? Other pulmonary embolism and infarction I26.99 ??? Other dyspnea and respiratory abnormality R06.09, R09.89 ??? Abnormal weight gain R63.5 ??? Cervicalgia M54.2 ??? Pain in limb M79.609 ??? Encounter for long-term (current) use of anticoagulants Z79.01 ??? Left TKA 12 Z96.659 ??? Chronic pain G89.29 ??? Total knee replacement status, left ??? Bilateral hand pain with deformities from RA. M79.641, M79.642 ??? Sjogrens syndrome M35.00 ??? Keratitis H16.9 ??? 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 Hysterectomy, total abdominal ??? Shoulder surgery ??? Pro total knee arthroplasty 11/02/2013 @TOTAL KNEE ARTHROPLASTY performed by Mayco Montanez Jr., MD at [facility] MAIN OR MEDICATIONS: Current Outpatient Prescriptions on File Prior to Visit Medication Sig Dispense Refill ??? alendronate (FOSAMAX) 70 mg Tablet TAKE ONE TABLET BY MOUTH EVERY 7 DAYS IN THE MORNING WITH A FULL GLASS OF WATER, ON AN EMPTY STOMACH. DO NOT LIE DOWN FOR 30 MINUTES 12 tablet 0 ??? tocilizumab 162 mg/0.9 mL Syringe Inject 162 mg subcutaneously once a week. 4 Syringe 11 ??? doxycycline (VIBRA-TABS) 100 mg Tablet TAKE ONE TABLET BY MOUTH ONCE DAILY 90 tablet 0 ??? leflunomide (ARAVA) 20 mg Tablet TAKE [...] daily. Take at 0900 and 1400 daily. ??? gabapentin (NEURONTIN) 300 mg capsule Take 3 capsules by mouth nightly. ??? senna-docusate (PERICOLACE) 8.6-50 mg per tablet [...] ??? ergocalciferol (VITAMIN D) 50,000 unit capsule 85020 unit, PO, once a month (Patient taking differently: 88018 unit, PO, twice a week) ??? [DISCONTINUED] omgrimrr-dzyncojwc-vrntuahvjqzmp (DEXACINE) 3.5 mg/g-10,000 unit/g-0.1 % Ointment Place into the right eye 3 times daily. 3.5 g 2 ??? [DISCONTINUED] polyethylene glycol (MIRALAX) 17 gram packet Take 17 g by mouth 2 times daily. No current facility-administered medications on file prior to visit. ALLERGIES: Iodinated contrast media - iv dye; Iodine and iodide containing products; Vancomycin; Infliximab; Ms contin; Sulfa (sulfonamide antibiotics); Sulfisoxazole; and Sulfisoxazole acetyl FAMILY HISTORY: Family History Problem Relation Age of Onset ??? Heart Disease Mother ??? Hypertension Mother ??? Thyroid Disease Mother ??? Cancer Father ??? Heart Disease Father ??? Hypertension Father ??? Thyroid Disease Sister ??? Diabetes Maternal Uncle ??? Amblyopia Neg Hx ??? Cataracts Neg Hx ??? Glaucoma Neg Hx ??? Macular Degeneration Neg Hx ??? Retinal Detachment Neg Hx ??? Strabismus Neg Hx ??? Thyroid Disease Sister SOCIAL HISTORY: History Social History ??? Marital Status: Legal Separation Spouse Name: N/A Number of Children: N/A ??? Years of Education: N/A Occupational History ??? Not on file. Social History Main Topics ??? Smoking status: Never Smoker ??? Smokeless tobacco: Never Used ??? Alcohol Use: No ??? Drug Use: No ??? Sexual Activity: No Other Topics Concern ??? 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 REVIEW OF SYSTEMS: GENERAL HEENT CV PULM All negative All negative All negative All negative x Weight loss Headache Angina x Shortness of breath Weight gain x Vision changes Palpitations Non-productive cough x Fatigue x Dry eyes/mouth Presyncope Productive cough x Weakness Hearing loss Syncope Sputum Fevers Tinnitus LE edema Hemoptysis Chills Vertigo x ABDULLAHI x Pleuritic pain Night sweats Rhinorrhea Orthopnea x Wheezing Epistaxis PND Orthopnea Hoarseness Paroxysmal dyspnea Sinus congestion Post-nasal drip Sore throat MSK URINARY ENDO GI/NUTRITION All negative x All negative x All negative x All negative x Arthralgias Dysuria Heat intolerance Appetite change Myalgias Hematuria Cold intolerance Dysphagia x Deformity Polyuria Polydipsia Odynophagia x Stiffness Oliguria Polyphagia GERD Wasting Foamy urine Cushingoid Nausea x Decreased ROM Stones Excessive sweating Vomiting HEME Hematochezia x All negative Nocturia Abdominal discomfort Easy bruising Frequency Diarrhea Bleeding Urgency Constipation Transfusions Incontinence Melana Anemia Hesitancy LYMPH SKIN NEURO PSYCH x All negative x All negative x All negative x All negative Swollen nodes Skin, hair, nail changes Loss of sensation Depressed affect Tender nodes Rash Numbness Occupational stress Diffuse nodes Itching Paresthesias Troubled relationship(s) Local nodes Pigmented lesion Focal weakness Insomnia Lumps Gait Anxiety Moles Seizures Memory Tanned skin Tremors Dizziness Spasticity Diplopia PHYSICAL EXAM Last value Range last 24 hrs Temperature Heart Rate Heart Rate: 94 Heart Rate: [94] Blood Pressure BP: (!) 145/91 mmHg BP: (145)/(91) Respiratory Rate Resp: 22 Resp: [22] SpO2 SpO2: 100 % SpO2: [100 %] WDWN 60 y.o. female in NAD. HEENT-NC/AT; unremarkable Neck-supple without masses or, nodes Chest- few crackles at bases bilaterally Heart-Normal rate and rhythm, without murmers, gallops, or rubs. Abdomen-benign without organomegaly or tenderness Extremities-no cyanosis, clubbing, or edema Skin-no rashes or lesions Musculoskeletal-+ MCP swelling, tenderness Neurologic-Nonfocal, without weakness or sensory deficits Lymphatics-unremarkable I have personally reviewed the radiographic studies and my interpretation is as follows: Chest CT is remarkable for a very slight right pleural effusion, that was not evident on a CT scan from March 2015. She has a small right lower lobe nodule, and a few areas of scarring on the left and the right. There is the appearance of slight subpleural groundglass opacification on the right, with none on the left, suggesting that it is probably somewhat atelectatic on the right. Pulmonary function studies were performed at [facility] and my interpretation is as follows: FVC of 47% of predicted, normal FEV1/FVC ratio, diffusing capacity of 65% of predicted. She had lungvolumes which curiously showed a total lung capacity of 282% of predicted and residual volume of 626% of predicted, which clearly indicate technical issues with the test. If the numbers are to be believed then she is quite restricted, based upon spirometry alone, but these studies are otherwise uninterpretable. IMPRESSION: In summary, this is a 60 y.o. female with rheumatoid arthritis, with evidence of uncontrolled systemic inflammation, who presents with right-sided pleuritic chest pain and has a new smallright-sided pleural effusion. She has had a history of pulmonary emboli in the past, and based on her presentation, recurrence of the right-sided embolic event might explain this, but the quality of the contrast enhancement of the pulmonary arterial tree on her CT scan was inadequate to rule in or out a PE. Nevertheless she is anticoagulated, and echocardiogram performed today was completely unremarkable with no evidence of pulmonary hypertension or right ventricular strain. 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 Though she has crackles on exam, there is very little to indicate that there is parenchymal lung disease of consequence, and it would be appropriate to repeat her pulmonary function studies to formally evaluate this. The fact that she is seronegative makes it unlikely that she has rheumatoid lung disease, and if present there isn't much more that would be done other than whatDr. Sidhu is trying to do, which is to get her inflammatory process under control. I indicated to her that I suspect her chest pain will improve once her disease is under better control, challenging as that may be. I will see her back in 6 months for a repeat chest CT (without contrast), both to monitor the effusion and the right lower lobe nodule. I will arrange for her to have pulmonary function studies performed on her next visit with Dr. Sidhu. Greater than 60 min of this 80 minute visit was spent in face to face discussion with the patient and family regarding the nature and complexity of the problems described above, and the details of our diagnostic and therapeutic plans. documented in this encounter Plan of Treatment [...] Bui MD PFT ORDERABLES * CT Chest Wo Contrast (GENERIC) (04/30/2016 [...] pulmonary nodule Pleural effusion Unspecified pleural effusion Lung nodule seen on imaging study Solitary pulmonary nodule Pleural effusion Unspecified pleural effusion Lung nodule seen on imaging study Solitary pulmonary nodule Pleural effusion Unspecified pleural effusion documented in this encounter Care Teams Ballistician Relationship Specialty Start Date End Date Curt Cassidy MD [address] [facility], [facility] [address] [place] [address] PCP - General 10/10/10 documented as of this encounter
--- OUTSIDE RECORDS SUMMARY | 2024-10-30 01:36 | XMS_ITS | Encounter Summary ---
Author Organization [place] [address] Care Team Providers Care Executive Wellness Programs Director Name Role Phone Curt Cassidy MD Primary Care Provider [phone] Reason for Visit * Reason Onset Date Comments Medication Refill 04/20/2016 Encounter Details Date Type Department Care Team (Late st Contact Info) Description 04/20/2016 [place] [address] Sarah Hill, RN Social History Tobacco Use Types Packs/Day [...] on filedocumented in this encounter Care Teams Executive Wellness Programs Director Relationship Specialty Start Date End Date Curt Cassidy MD [address] [facility], [facility] 3 [place] [address] PCP - General 10/10/10 documented as of this encounter
--- OUTSIDE RECORDS SUMMARY | 2024-10-30 01:36 | XMS_ITS | Encounter Summary ---
Author Organization [facility] Address [facility] [address] [place] [address] Care Team Providers Care Camera Supervisor Name Role Phone Curt Cassidy MD Primary Care Provider [phone] Encounter Details Date Type Department Care Team (Late st Contact Info) Description 12/19/2015 Tele[place] [address] Cristian Cordova MD [facility] [place] [address] Social History Tobacco Use Types Packs/Day Years [...] Telephone Encounter - Mireille Mehta COT - 12/19/2015 3:28 PM EST Patient here for appointment at [facility] and stopped to report yesterday she accidentally touched the tip of AT's dispenser to right eye. Was red and irritated. Used additional ATs and trav and better today. No photophobia, pain or vision changes. Advised to continue AT's and call if any acute changes. Keep schedule EPF with Dr. Espinosa for 12/30/15. documented in this encounter Plan of Treatment Not on file documented as of this encounter Visit Diagnoses Not on filedocumented in this encounter Care Teams Camera Supervisor Relationship Specialty Start Date End Date Curt Cassidy MD [address], [facility] 3 [place] [address] PCP - General 10/10/10 documented as of this encounter
--- OUTSIDE RECORDS SUMMARY | 2024-10-30 01:36 | XMS_ITS | Encounter Summary ---
Author Organization [facility] Address [facility] [place] [address] Care Team Providers Care Drop Wirer Name Role Phone Curt Cassidy MD Primary Care Provider [phone] Reason for Visit * Reason Comments Medication Refill Encounter Details Date Type Department Care Team (Late st Contact Info) Description 04/28/2015 Ref[place] [address] Rafael Sidhu MD [facility] [place] [address] Social History Tobacco Use Types Packs/Day Years [...] on filedocumented in this encounter Care Teams Drop Wirer Relationship Specialty Start Date End Date Curt Cassidy MD [address] [facility], [facility] 3 [place] [address] PCP - General 10/10/10 documented as of this encounter
--- OUTSIDE RECORDS SUMMARY | 2024-10-30 01:37 | XMS_ITS | Encounter Summary ---
Author Organization [facility] Address [facility] [place] [address] Care Team Providers Care Commercial Sales Representative Name Role Phone Curt Cassidy MD Primary Care Provider [phone] Reason for Referral * Occupational Therapy (Routine) - Complete - Patient Will Schedule External Appt Specialty Diagnoses / Procedures Referred By Contac t Referred To Contact Occupational Therapy Diagnoses Rheumatoid arthritis(714.0) Rafael Sidhu MD [facility] [place] [address] Referral ID Status Reason Start Date Expiration Date Visits Requested Visits Authorized [id number] Complete - Patient Will Schedule External Appt Evaluate and Treat 01/18/2014 07/17/2014 3 3 Reason for Visit * Reason Comments Rheumatoid Arthritis Encounter Details Date Type Department Care Team (Late st Contact Info) Description 01/18/2014 11:45 AM EST [place] [address] Rafael Sidhu MD [facility] [place] [address] Rheumatoid arthritis(714.0) (Primary Dx); Esophageal candidiasis; CMC arthritis Discharge Disposition: Home Social History Tobacco Use [...] Sign Reading Time Taken Comments Blood Pressure 115/66 01/18/2014 11:45 AM EST Pulse 100 01/18/2014 11:45 AM EST Temperature 36.8 ??C (98.2 ??F) 01/18/2014 11:[address] Respiratory Rate - - Oxygen Saturation 95% 01/18/2014 11:45 AM EST Inhaled Oxygen Concentration - - Weight 75.3 kg (166 lb) 01/18/2014 11:45 AM EST Height 149.9 cm (4' 11) 01/18/2014 11:45 AM EST Body Mass Index 33.53 01/18/2014 11:45 AM EST documented in this encounter Patient Instructions * Patient Instructions* Robyn Ma, FIRE CHIEF - 01/18/2014 11:53 AM EST I would like you to sign up for myD-H, which will give you secure online access to your electronic medical record at [facility] and the ability to communicate with your health care team whenand where it???s most convenient for you. With myD-H you will be able to: - look at parts of your medical record including test results and office notes - send and receive messages to/from me and your other providers - renew prescriptions - schedule appointments. To sign up, go to [email or web address] and click I have an activation code and follow the instructions. Here is your activation code: [email or web address] Expires: 03/04/2014 11:54 AM Remember, myD-H is NOT for urgent needs! Always dial 911 for medical emergencies. 1. Mycostatin swish and swallow 4 times a day for 7 days 2. We will increase Actemra to 8 mg/kg 3. Return in 4 months after 3 months of Actemra at 8 mg/kg 4. Cool comfort thumb restriction splint for hands and thumb pain 5. Referral to [facility] OT for gutter splinting for ulnar deviation of MCP joints documented in this encounter Progress Notes * Rafael Sidhu MD - 01/18/2014 11:55 AM EST Marla Denton is a 58-year-old female seen in 4 month follow up for severe complicated RA and recurrent thromboemboli/DVT maintained on RTX 1000 mg every 3 months with her last infusion in 2011.In January 2013, she had a very complicated [...] 9 at that time. Tofacitinib caused nausea Interval History: Today, she reports the following issues: 1. Rheumatoid Arthritis: Started on Actemra 4 mg/kg on 11.20.2013. She has had 3 infusions, most recently 01.14.14. No apparent benefit noted. Having lots of pain especially in her hands, which localizes to the CMC joints. She is also concerned 2. Strep pharyngitis: Apparently documented after initial test was negative. Completed a 1 week course of PCN. While pharyngeal pain is better, she is having lots of esophageal pain when she swallowscold liquids. 3. Severe left knee pain underwent TKR showing: medial DJD with lush synovitis and medial and lateral meniscal tears. Recovery going well Just taking prednisone 10 mg/d She has lost 10 lbs! Review of Systems Constitutional: No fevers, chills, [...] LE 17. Followed by ID - Mike wash weekly, in 2009. Much less at f/u in .10. Left 5th big toe infection, not clearly osteomyelitic vs cellulitis with RA. 4. DXA ([place] 2004: -1.3 SD low at spine; 1 SD at hip) 5. Persistent right knee popliteal cysts with pain 18. ACL ganglion cyst, considering arthroscopy with Dr. Montanez. 6. Surgeries: S/P C-1/2 surgery; S/P left extensor tendon rupture and repair. 4) S/P left trigger thumb; S/P right total shoulder replacement with chronic persistent pain requiring narcotics; S/P APRANA/BSO . Right knee meniscal cyst - arthroscopy 04/25/01 showing lateral and medial meniscal tears Current medications: updated today Physical exam reveals a chronically ill-appearing overweight white female not Cushingoid She is in pain and walks slowly with a cane due to left knee pain Blood pressure 115/66, pulse 100, temperature 36.8 ??C (98.2 ??F), temperature source Oral, height 149.9 cm (4' 11), weight 75.297 kg (166 lb),SpO2 95.00%.HEENT:+ monilia appearing on tongue. Neck decreased flexion. Shoulders: decreased abduction left shoulder, right not tested. Elbows: less, still with tenderness of entire dorsal compartment of right right forearm up to the lateral epicondyle. The elbow moves stiffly and tender. Left okay. Wrists unimpressive for synovitis Bilateral CMC tenderness. Hands: there is swelling of bilateral 2nd/3rd mcp joints, but they move well. Early ulnar deviation of MCP. Her right TKR is well healed and there is diffuse swelling to the dorsum of the foot. Left Achilles very tender to the touch. Ankles okay MTP joints splaying and very tender. VARGAS 28 Joint Count TJC: 6 SJC 4 Patient global 8, Physician global 5. CDAI 19 Impression: Persistent active RA who has failed multiple agents in the past, who has travel limitations, recurrent DVT/PE, recurrent cellulitis, who has not had much of a response to TCZ 4 mg/kg after 3 infusions. 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 RA: with hypergammaglobulinemia Will ask Dr. Cassidy to increase Actemra to 8 mg/kg (600 mg) for the next 3 infusions. Ask to include CRP at each test, along with CBC and comprehensive metabolic profile with lags 2. Left knee arthritis with sx c/w Mckeon's cyst, more c/w OA: await MRI and need for knee replacement 3. Oropharyngeal/esophageal nan: mycostatin swish and swallows 4. Splinting of 1st CMC joints, referral to OT for ulnar deviation Level 4 F/u visit Rafael Sdihu M.D. Staff Direct Mail Marketer documented in this encounter Plan of Treatment Scheduled Referrals Name Type Priority Associated Diagnoses Order Schedule Referral to Occupational Therapy Outpatient Referral Routine Rheumatoid arthritis Ordered: 01/18/2014 documented as of this encounter Visit Diagnoses Diagnosis Rheumatoid arthritis(714.0)- Primary Rheumatoid arthritis Esophageal candidiasis Candidiasis of the esophagus CMC arthritis Unspecified arthropathy, hand documented in this encounter Care Teams Commercial Sales Representative Relationship Specialty Start Date End Date Curt Cassidy MD [address] [facility], [facility] 3 [place] [address] (work) PCP - General 10/10/10 documented as of this encounter
--- OUTSIDE RECORDS SUMMARY | 2024-10-30 01:37 | XMS_ITS | Encounter Summary ---
Author Organization [facility] Address [facility] [place] [address] Care Team Providers Care Circular Saw Filer Name Role Phone Curt Cassidy MD Primary Care Provider [phone] Reason for Visit * Reason Onset Date Comments Follow-up 03/18/2014 Encounter Details Date Type Department Care Team (Late st Contact Info) Description 03/18/2014 Telephone [place] [id number] Mayco Montanez Jr., MD [facility] [place] [address] Follow-up Social History Tobacco Use Types Packs/Day Years [...] encounter Miscellaneous Notes * Telephone Encounter - Radha Guy - 03/23/2014 9:05 AM EDT Attempted to leave message #2. Phone did not brain picker. * Telephone Encounter - Radha Guy - 03/18/2014 10:05 AM EDT LM#1 to f/u with Dr. Montanez at one year point from surgery, which would be October,. documented in this encounter Plan of Treatment Not on file documented as of this encounter Visit Diagnoses Not on filedocumented in this encounter Care Teams Circular Saw Filer Relationship Specialty Start Date End Date Curt Cassidy MD [address] [facility] [place] [address] PCP - General 10/10/10 documented as of this encounter
--- OUTSIDE RECORDS SUMMARY | 2024-10-30 01:37 | XMS_ITS | Encounter Summary ---
Author Organization [facility] Address [facility] [place] [address] Care Team Providers Care Laborer Sawmill Name Role Phone Curt Cassidy MD Primary Care Provider [phone] Reason for Visit * Reason Comments Aftercare Of Tjr left TKA - DOS 11/02 Encounter Details Date Type Department Care Team (Late st Contact Info) Description 03/17/2014 12:45 PM EDT Office [place] [address] Mayco Montanez Jr., MD [facility] [place] [address] Total knee replacement status, left (Primary Dx) Discharge Disposition: Home Social History Tobacco Use [...] Sign Reading Time Taken Comments Blood Pressure 116/65 03/17/2014 1:04 PM EDT Pulse 83 03/17/2014 1:04 PM EDT Temperature 36.6 ??C (97.9 ??F) 03/17/2014 1 :04 PM EDT Respiratory Rate - - Oxygen Saturation - - Inhaled Oxygen Concentration - - Weight 84.6 kg (186 lb 9.6 oz) 03/17/20 14 1:04 PM EDT Height 148.6 cm (4' 10.5) 03/17/2014 1 :04 PM EDT verbalized Body Mass Index 38.34 03/17/2014 1:04 PM EDT documented in this encounter Progress Notes * Mayco Montanez Jr., MD - 03/21/2014 5:50 PM EDT Attending note Patient seen with the resident and agree with findings and plan. Mayco Montanez Orthopaedic Attending. * Jay Jay Schwartz - 03/17/2014 1:44 PM EDT I have made the following determinations: Post Op Left Knee Exam: Gait Abnormality: Antalgic Knee ROM: Extension:5 Flexion: 110 Alignment: 0-4 degrees Neutral Stability: A/P Translation <5mm Varus (lateral stability) <5mm Valgus (medial stability) <5mm Extension La degrees or less Patella Tracking: Normal Pulses Palpable: Left PT:Yes Left DP:Yes Motor/Sensory: Distal Motor: Normal Distal Sensory: Normal Quadriceps Strength:4 ORTHOPEDIC SURGERY PROGRESS NOTE DIAGNOSIS: Left total knee replacement on 11/02/2013. SUBJECTIVE: The patient is a 58-year-old female following up after left TKA done on the above date. She is doing quite well. She did bump her knee approximately a month ago, had some swelling in the knee. She is on Coumadin chronically for PE. She has had no other major issues aside from this. At that time, she was doing excellent and did not have any concerns. She does not feel like she has progressed quite as well with the knee being swollen, but however, it does seem to be resolving on its own. She is confident she will gain everything back. OBJECTIVE: On physical exam today, she appears in no acute distress. Her incision is well-healed in the midline, and her measurements are taken above, and her physical exam as above. ASSESSMENT AND PLAN: A 58-year-old female doing well today, no major issues. We are going to continue to follow her total knee replacement. We will see her back at the one year kiko from her surgery at this point, and we are optimistic that she will continue to do well and likely she just bumped her knee and caused some increased swelling. documented in this encounter Plan of Treatment Not on file documented as of this encounter Visit Diagnoses Diagnosis Total knee replacement status, left- Primary documented in this encounter Care Teams Laborer Sawmill Relationship Specialty Start Date End Date Curt Cassidy MD [address], [facility] [address] [place] [id number] PCP - General 10/10/10 documented as of this encounter
--- OUTSIDE RECORDS SUMMARY | 2024-10-30 01:37 | XMS_ITS | Encounter Summary ---
Author Organization [facility] Address [facility] [place] [address] Care Team Providers Care Workers Compensation Consultant Name Role Phone Curt Cassidy MD Primary Care Provider [phone] Encounter Details Date Type Department Care Team (Latest Contact Info) Description 12/07/2013 11:45 AM EST - 12/07/2013 11:59 PM [facility] Hospital Encounter XRay at [address] [place] [address] DJD (degenerative joint disease) of knee Social History Tobacco Use Types Packs/Day Years [...] Sig Dispensed Refills Start Date End Date doxepin (SINEQUAN) 50 mg capsule Take 1 [...] 11/05/2013 ergocalciferol (VITAMIN D) 50,000 unit capsule 16966 unit, PO, once a month 10/23/2010 RESTASIS 0.05 % ophthalmic emulsion Place 1 drop into the right eye every 12 hours. 11/12/2013 07/27/2015 RISEDRONATE SODIUM (ACTONEL ORAL) 09/25/2013 03/14/2015 warfarin (COUMADIN) 5 mg tablet Take 5-7.5 mg by mouth daily. 12/07/2020 cyclobenzaprine (FLEXERIL) 10 mg tablet Take 10 mg by mouth 3 times daily as needed. 11/05/2022 acetaminophen (TYLENOL) 500 mg tablet Take 2 tablets by mouth every 8 hours. Last day for scheduled dosing = . Then may take every 8 hours as needed, Do not take more than 4,000 mg of acetaminophen in 24 hours. 11/05/2013 01/18/2014 calcium carbonate 648 mg calcium tablet Take 1 tablet by mouth 3 times daily (with meals). 11/05/2013 04/02/2018 gabapentin (NEURONTIN) 300 mg capsule Take 3 capsules by mouth nightly. 11/05/2013 07/02/2016 HYDROmorphone (DILAUDID) 4 mg tablet Take 1-3 tablets by mouth every 3 hours as needed for Pain. 11/05/2013 03/17/2014 levothyroxine (SYNTHROID) 125 mcg tablet Take 1 tablet by mouth daily. 11/05/2013 03/17/2014 methadone (DOLOPHINE) 5 mg tablet Take 5 tablets by mouth every 6 hours. 11/05/2013 07/26/2014 polyethylene glycol (MIRALAX) 17 gram packet Take 17 g by mouth 2 times daily. 11/05/2013 12/30/2015 predniSONE (DELTASONE) 5 mg tabletIndications:Rheu matoid arthritis(714.0),Later al epicondylitis of elbow Take 2 tablets by mouth daily. 11/05/2013 07/26/2014 senna-docusate (PERICOLACE) 8.6-50 mg per tablet Take 1-4 tablets by mouth 2 times daily. 11/05/2013 04/02/2018 zolpidem (AMBIEN) 10 mg tablet Take 1 tablet by mouth nightly as needed. 11/05/2013 02/25/2023 doxycycline (VIBRA-TABS) 100 mg tabletIndications:Cell ulitis and abscess of leg Take 1 tablet by mouth daily. 90 tablet 3 06/15/2013 07/22/2014 Psyllium Seed-Sucrose (METAMUCIL) Powd 1 Tsp, PO, Three times daily 10/23/2010 01/07/2017 documented as of this encounter Plan of Treatment Not on file documented as of this encounter Procedures Procedure Name Priority Date/Time Associated Diagnosis Comments XR TKA FIRST PO VISIT ALIGNMENT AP LAT SKYLINE Routine 12/07/2013 12:16 PM EST DJD (degenerative joint disease) of knee documented in this encounter Results * XR TKA FIRST PO VISIT ALIGNMENT AP LAT SKYLINE (12/07/2013 12:16 PM EST) Anatomical Region Laterality Modality Knee N/A Radiographic Lola ging 12/07/2013 12:1 6 PM EST Narrative 12/07/2013 1:50 PM EST Examination STANDING ALIGNMENT AND LEFT KNEE Clinical History Status Post TKA Comparison 09/16/2013. ?? Technique STANDING ALIGNMENT:Separate images of the pelvis, knees and feet were acquired in the AP projection with the patient standing. In addition to routine views of the knee, these images were stitched together to form a composite image of the pelvis and legs allowing for evaluation of lower extremity alignment in the weight bearing position. LEFT KNEE: AP standing and axial patellar views of both knees, as well as lateral views of left knee. ?? Findings STANDING ALIGNMENT: The mechanical axis of the right lower extremity is medially deviated approximately 11 mm. ??The mechanical axis of the left lower extremity is medially deviated approximately 17 mm. ?? LEFT KNEE: ??Unchanged position appearance of right knee arthroplasty. ?? Interval placement of left knee arthroplasty, with well-seated appearing components no significant periprosthetic lucency identified. No periprosthetic fracture is seen. Postoperative subcutaneous soft tissue swelling and joint effusion appear present. Impression No definite change in post arthroplasty appearance of the right knee. ?? No interval post arthroplasty complication on the left. Procedure Note Arcelia Armenta MD - 12/07/2013 Examination STANDING ALIGNMENT AND LEFT KNEE Clinical History Status Post TKA Comparison 09/16/2013. Technique STANDING ALIGNMENT:Separate images of the pelvis, knees and feet wereacquired in the AP projection with the patient standing. In addition to routineviews of the knee, these images were stitched together to form a composite image ofthe pelvis and legs allowing for evaluation of lower extremity alignment inthe weight bearing position. LEFT KNEE: AP standing and axial patellar views of both knees, as well as lateral views of left knee. Findings STANDING ALIGNMENT: The mechanical axis of the right lower extremity is medially deviated approximately 11 mm. The mechanical axis of the leftlower extremity is medially deviated approximately 17 mm. LEFT KNEE: Unchanged position appearance of right knee arthroplasty. Interval placement of left knee arthroplasty, with well-seated appearing components no significant periprosthetic lucency identified. Noperiprosthetic fracture is seen. Postoperative subcutaneous soft tissue swelling andjoint effusion appear present. Impression No definite change in post arthroplasty appearance of the right knee. No interval post arthroplasty complication on the left. Mayco Montanez Jr., MD IMG DX ORDERABLES documented in this encounter Visit Diagnoses Diagnosis DJD (degenerative joint disease) of knee Osteoarthrosis, unspecified whether generalized or localized, lower leg documented in this encounter Care Teams Workers Compensation Consultant Relationship Specialty Start Date End Date Curt Cassidy MD [address], [facility] [address] [place] [address] PCP - General 10/10/10 documented as of this encounter
--- OUTSIDE RECORDS SUMMARY | 2024-10-30 01:37 | XMS_ITS | Encounter Summary ---
Author Organization [facility] Address [facility] [place] [address] Care Team Providers Care Coiler Name Role Phone Curt Cassidy MD Primary Care Provider [phone] Reason for Visit * Reason Comments Medication Refill Encounter Details Date Type Department Care Team (Late st Contact Info) Description 07/22/2014 Refill [place] [address] Rafael Sidhu MD [facility] [place] [address] Social History Tobacco Use Types Packs/Day Years [...] on filedocumented in this encounter Care Teams Coiler Relationship Specialty Start Date End Date Curt Cassidy MD [address] [facility], [facility] [address] [place] [address] PCP - General 10/10/10 documented as of this encounter
--- OUTSIDE RECORDS SUMMARY | 2024-10-30 01:37 | XMS_ITS | Encounter Summary ---
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 with pain, decreased ROM, strength, functional mobility, and gait skills. Pt will benefit fromPT to address his/her functional deficits to restore prior level of function. Anticipate pt will need rehab. Range of Motion: AROM L knee extension = approx -5 to 10 deg, flexion = approx 30 deg during Ambulation distance: 3 feet x 2 Goals: (to be achieved by 11/05/13) Goal met? Yes No Pt will be knowledgeable of prescribed exercises. x Pt will demonstrate AROM knee extension 0-15 degrees and flexion 80-90 degrees x Pt will move supine<>sit ind. x Pt will move sit<>stand ind. x Pt will ambulate 100 feet using FWW and 1 CG assist x Discharge Recommendations: Patient will require 24/ supervision and assistance. Patient would benefit and tolerate continued daily intensive therapy interventions to maximize functional independence. Physical Therapist recommends: Occupational Therapy consult Plan: Patient to be seen daily for physical therapy to include Therapeutic exercises, Therapeutic functional activities and Gait training. Patient agrees to the plan as stated. Equipment needs: Rolling walker. Activity plan w/nursing assist (discussed with nursing staff): Pivot transfer with 1 assist Total treatment time: 20 minutes Total timed treatment: 15 minutes ROBERTA DAHL PTA Pager: [phone] * Patricio Urrutia MD - 11/04/2013 10:15 AM EST Acute Pain Service Consult ID: Marla Denton is a 58 y.o. female with chronic pain and home opioid requirement due to RA here sp L TKA (POD 2) with ensuing poor pain capture. Unfortunately, due to past history of DVT and chronic anticoagulation she was unable to have peripheral nerve catheters placed for post op pain control. 24hr Events/Subjective: - improved pain control over the past 24 hours with med adjustments yesterday. - has 7/10 pain this AM (home baseline is 6/10) but pain has been as low as 3/10 over past 24 hours. Marla thinks she may have fallen behind on PRN pain meds overnight. - denies nausea or itching on current opioid meds. - had bowel movement yesterday, she has baselien constipation and typically stools Q 3-4 days. O: Temp: [36.6 ??C (97.9 ??F)-37.1 ??C (98.8 ??F)] Heart Rate: [82-105] Resp: [16] BP: (114-147)/(74-89) SpO2: [94 %-95 %] Physical Exam Awake, alert No increased wob, nl sats on RA no diaphoresis, pupils 2 mm IP Pain Medications Gabapentin 600/600/900 mg TID. acetaminophen 1000 mg Q8 hours. Methadone 25 mgs Q8 hours. Dilaudid 4-12 mgs PO Q3 hours (received 12x5 = 60 mgs) Lorazepam 0.5 mgs Q5 PRN. MOBILITY SPECIALIST Dilaudid 0.6 mg Q5 mins with 15 mg/4 hour lockout. (used 24.5 mgs over past 24 hours) Historical Pain Medications Gabapentin 600 mg TID. Methadone 20 mgs QID. Dilaudid 8 mgs PO PRN QID. Bowel Regimen Colace scheduled Dulcolax PRN Fleet enema A/P: 58 y.o. female with chronic pain due to RA (on opioids at home) and anticoagulated due to PE history admitted sp L TKA. Pain has improved significantly since yesterday and she may be able to wean off MOBILITY SPECIALIST if she maximizes her PRN PO dilaudid dosing (received just 5 of her possible 8 x 12 mg doses yesterday). We educated her on rounds as to the importance of maintaining a consistent PRN dilaudid schedule so as to not fall behind. Recommendations: Continue scheduled tylenol 1000 mgs Q8 hours. Continue Methadone 25 mgs Q6 hours. Consider discontinuing Dilaudid MOBILITY SPECIALIST - have encouraged patient to maximize PRN dosing of her PO dilaudid (received just 5 of her possible 8 doses over the past 24 hours). Continue PRN PO Dilaudid dosing of 4-12 mgs Q3 hours. Continue Neurontin 600/600/900. Consider initiating toradol unless otherwise contraindicated. Aggressive bowel regimen and continuous pulse ox monitoring. Chava Uribe MD Pager [phone] CHAVA URIBE MD I have seen and examined the patient. I have reviewed Dr. Uribe's note and agree with the findings, assessment and plan. PATRICIO URRUTIA MD * Marysol Choudhury APRN - 11/04/2013 5:41 AM EST After 1 stick, patient refused. She has been turned back by phlebotomy. Will attempt later in theam. * Zan Schwartz - 11/04/2013 5:34 AM EST Orthopaedic Surgery Inpatient Progress Note Marla Denton is a 58 y.o. female who underwent a Left Total Knee Replacement on 11/02/2013 Subjective: Got to a chair yesterday evening. Pain controlled on regimen. Difficult to wake up this AM. Objective: Temp: [36.7 ??C (98.1 ??F)-37.1 ??C (98.8 ??F)] Heart Rate: [81-105] Resp: [16] BP: (116-149)/(65-89) SpO2: [94 %-100 %] I/O last 3 completed shifts: In: 7406 [P.O.:1770; I.V.:5286; Other:350] Out: 7405 [Urine:6635; Other:620; Blood:150] I/O this shift: In: - Out: 425 [Urine:425] Physical Exam: General: Well appearing, no acute distress Cardio Vascular: RRR checked peripherally LLE Exam: 2+ DP pulse Sensation intact to light touch to DP/SP/T nerve distributions Motor intact to ADF/APF/EHL Dressing c/d/i ELVIS bandage removed Laboratory Recent Labs Basename 11/03/13 0615 11/02/13 0607 WBC 15.0* -- HGB 11.9 -- HCT 38.3 -- PLATELET 333 -- NA 142 -- K 3.6 -- CL 103 -- CO2 31 -- BUN 9 -- CREATININE 0.62* -- INR 1.4* 1.2* Assessment: 58 y.o. female s/p Left TKA with a history of PE on coumadin, now on lovenox 80 BID until INR 1.9 goal INR of 2.5-3.5. Labs pending this AM. Appreciate APS help, please try and wean IV pain medications off today. Hold on PICC use. Plan: ?? Mobilize with Physical Therapy - Weight bearing as tolerated ?? Mepilex dressing - change POD#7 unless soiled ?? Wound closed with ana remove in 2 weeks ?? D/C chong today ?? Antibiotics x 24 hours - finished ?? Pain Control: transition to PO pain meds hopefully today ?? DVT Prophalaxis: Coumadin and lovnoex until inr 1.9 lovenox therapeutic 80 BID ?? Discharge Planning: Home vs rehab per PT final recommendations. ?? Follow up in 4-6 weeks with knee x-Rays. ZAN SCHWARTZ MD 11/04/2013 Future Appointments Date Time Provider Department Center 12/07/2013 12:40 PM Zaki Carvajal PA [facility] None 01/18/2014 11:45 AM Rafael Sidhu MD [facility] * Bertha Maya MD - 11/03/2013 12:51 PM EST . Regional Anesthesia Progress Note Date of Encounter: 11/03/2013 Responsible Attending: Wes Estrada Staff / Associate Provider: Bertha Maya MD ID: Patient is POD# 1 s/p TKA L for which the patient received left femoral nerve block catheter for post-operative pain control. Femoral nerve catheter not due to pt needing lovenox post op for DVT & PE h/o. Subjective: Today the patient has better pain control and at present states pain is 7-8 out of 10. Apparently had a lot of pain in the PACU ( followed by Dr Berg and then APS team), which pain control was achieved with higher doses of IV hydromorphone, plus other non-narcotic adjunct. A Sciatic rescue block was discussed at this time but this would have made her not mobile for up to 24 hours andnot be able to participate with PT Objective: VSS Sensation is intact to touch Patient is able to perform straight leg raise No evidence of local anesthetic toxicity Coags: Lab Results Component Value Date INR 1.4* 11/03/2013 PT 17.6* 11/03/2013 Meds: Medication list reviewed Assessment: Peripheral nerve block for post-operative pain control, currently with better pain control. As expected, given her high methadone and dilaudid dosing pre-op, post op pain control has anny challenge. Was not on these drugs for her last knee surgery, prior, of note. Block has resolved already, suprisingly, given the fact that 0.5 % Ropivacaine and Decadron was used ( usually get 24-36 hours of coverage). Plan: ?? Will sign off, patient was instructed to contact Regional Anesthesia Team ([phone]) for any unresolved sensory or motor deficits. Please contact Regional Anesthesia Team with any questions or concerns Bertha Maya MD Regional Team pager [phone] * Damir Norton RN - 11/03/2013 11:38 AM EST S: I had more pain this time then I did with my last one. O: Chart reviewed and met with pt before she started PT with Katharina this am. Pt had L TKA yesterday byDr Mckeon. Pt had R TKA in 01/19 and went to [facility] for rehab. Pt was living in [place] at the time and has moved to an apt in [facility]. 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 Pt requests referrals be made to [facility] and [facility]. I will ask the SNF [facility] to make referral. Pt has [facility] for insurance. Pt should be ready tomorrow or Th pending medical status and bed availabilty. Pt will need a S amb for transport. A Progressing toward d/c to rehab for con't PT/OT until indep with ADLs and can return home alone. P: Will follow,anticipate d/c in 48 hrs. * Dane Jackson MD - 11/03/2013 11:15 AM EST Acute Pain Service Consult ID: Marla Denton is a 58 y.o. female with chronic pain and home opioid requirement due to RA here sp L TKA yesterday with ensuing poor pain capture. Unfortunately, due to past history of DVT andchronic anticoagulation she was unable to have peripheral nerve catheters placed for post op pain control. 24hr Events/Subjective: - pain control has been variable since surgery; has been as good as 6/10 pain (which is her home pain baseline) but is currently complaining of 10+/10 pain. - since arrival in PACU yesterday with poorly controlled pain she has had dilaudid MOBILITY SPECIALIST dosing adjusted (0.2// --> 0.6/04/01) and methodone increased (20-->25 mgs TID) with better effect. - denies nausea or itching on current opioid meds. - has chronic constipation at baseline and has not stooled in past 3 days. O: Temp: [36.5 ??C (97.7 ??F)-36.8 ??C (98.2 ??F)] Heart Rate: [81-96] Resp: [12-16] BP: (123-162)/(65-101) SpO2: [92 %-100 %] Physical Exam Awake, alert No increased wob, nl sats on RA Mild diaphoresis, pupils 2 mm IP Pain Medications Gabapentin 600 mg TID. acetaminophen 1000 mg Q8 hours. Methadone 25 mgs QID. Dilaudid 6mgs PO Q3 hours (received x 2 = 12 mgs) Lorazepam 0.5 mgs Q5 PRN. MOBILITY SPECIALIST Dilaudid 0.6 mg Q5 mins with 15 mg/4 hour lockout. (used 13.2 mgs over 12 hours from 7PM-7AM) Historical Pain Medications Gabapentin 600 mg TID. Methadone 20 mgs QID. Dilaudid 8 mgs PO PRN QID. Bowel Regimen Colace scheduled Dulcolax PRN Fleet enema A/P: 58 y.o. female with chronic pain due to RA (on opioids at home) and anticoagulated due to PE history admitted sp L TKA. She has had difficult to manage pain since the time of surgery with varying levels of pain ranging from her chronic pain baseline of 6/10-->10+/10. Given her high opioid requirements over the past 24 hours and difficult to manage pain would recommend keeping MOBILITY SPECIALIST until her pain is more consistently managed with goal of weaning IV opioids tomorrow. Recommendations: Continue scheduled tylenol 1000 mgs Q8 hours Continue Methadone 25 mgs. Consider changing dosing from QID --> Q6 hours for more consistent dosing intervals. Continue Dilaudid MOBILITY SPECIALIST as currently ordered (0.6 mgs Q5 mins with 15 mg 4 hour lock out). Consider changing PRN PO Dilaudid dosing from 6 mg Q3 hours --> 4-12 mgs Q3 hours. Continue Neurontin TID. Consider increasing QHS dose only from 600 --> 900 mgs. Other doses should remain 600 mgs so as to not increase daytime somnolence. Consider initiating toradol unless otherwise contraindicated. Aggressive bowel regimen and continuous pulse ox monitoring. Pain Team will continue to follow. Chava Uribe MD Pager [phone] I have seen and examined the patient. I have reviewed Dr. Uribe's note and agree with the findings, assessment and plan. DANE JACKSON MD * Zan Schwartz - 11/03/2013 6:56 AM EST Orthopaedic Surgery Inpatient Progress Note Marla Denton is a 58 y.o. female who underwent a Left Total Knee Replacement on 11/02/2013 Subjective: A lot of pain issues, APS involved. Difficult iv access as well. No other concerns this morning. Objective: Temp: [36.3 ??C (97.3 ??F)-36.8 ??C (98.2 ??F)] Heart Rate: [71-96] Resp: [-] BP: (123-162)/(65-101) SpO2: [92 %-100 %] I/O last 3 completed shifts: In: 4060 [P.O.:100; I.V.:3610; Other:350] Out: 3130 [Urine:2360; Other:620; Blood:150] I/O this shift: In: - Out: 2275 [Urine:2275] Physical Exam: General: Well appearing, no acute distress Cardio Vascular: RRR checked peripherally LLE Exam: 2+ DP pulse Sensation intact to light touch to DP/SP/T nerve distributions Motor intact to ADF/APF/EHL Dressing c/d/i Drain pulled tip intact Laboratory Recent Labs Basename 11/03/13 0615 11/02/13 0607 WBC 15.0* -- HGB 11.9 -- HCT 38.3 -- PLATELET 333 -- NA -- -- K -- -- CL -- -- CO2 -- -- BUN -- -- CREATININE -- -- INR 1.4* 1.2* Assessment: 58 y.o. female s/p Left TKA with a history of PE on coumadin, now on lovenox 80 BID until INR 1.9 goal INR of 2.5-3.5. Also APS involved for chronic pain medication use. HOLD on PICC use,try to wean off iv pain meds and IVF. Plan: ?? Mobilize with Physical Therapy - Weight bearing as tolerated ?? Mepilex dressing - changed POD#7 unless soiled ?? Wound closed with ana remove in 2 weeks ?? Drain pulled tip intact ?? D/C chong POD#1 ?? Antibiotics x 24 hours ?? Pain Control: transition to PO pain meds ?? DVT Prophalaxis: Coumadin and lovnoex until inr 1.9 lovenox therapeutic 80 BID ?? Discharge Planning: Home vs rehab per PT final recommendations. ?? Follow up in 4-6 weeks with knee x-Rays. ZAN SCHWARTZ MD 11/03/2013 Future Appointments Date Time Provider Department Center 12/07/2013 12:40 PM Zaki Carvajal PA [facility] None 01/18/2014 11:45 AM Rafael Sidhu MD [facility] * Fabiola Durham, RN - 11/02/2013 6:46 PM EST Patient arrived to floor via bed from PACU. Patient A&O x 3, lungs clear, heart rate regular. Patient has hypoactive bowel sounds. Patient has a dressing to L knee, noted to be clean dry and intact. Patient has an IV of NS infusing at 100ml/hr in to their PIV. Patient states their pain level is7/10. Chong draining adequate amts of clear yellow urine. Patient denies chest pain, shortness of br eath, numbness or tingling. Patient oriented to room, call ibrahim, IS. RN will monitor patient. * Sugey Quiñones RN - 11/02/2013 12:42 PM EST 1200 Pt using MOBILITY SPECIALIST for pain control. Once her family left, pt crying & states her pain is 10/10.Gave pt her usual pain meds and then started dosing her with IV Dilaudid. Her alarm parameters havebeen adjusted to be consistent with her vital signs .1230 Pt states there is no change in her pain. Dr Berg by to check on patient and is aware. 1300 Patient continues to be in 10/10 pain. Medicating patient every 5 - [address] Berg of patient's continued pain despite being medicated with 2 mg of Dilaudid. Pt is using Her MOBILITY SPECIALIST as well. He will write for an increase in her pain medication. 1410 Dr Berg at bedside and giving pt IV Dilaudid. 1530 Family back in to visit at pt's request. Pt states pain is now 8/10 and better. Pt no longer crying. Pt is continuing to use her MOBILITY SPECIALIST. * Castro Ding 11/02/2013 11:43 AM EST Orthopaedic Surgery Post-Op Check Note Surgery: Left TKA Patient Active Problem List Diagnosis Date Noted ??? Left TKA 11/0211/02/2013 ??? Lateral epicondylitis of elbow 10/30/2013 ??? Orthopnea 10/30/2013 ??? Unspecified essential hypertension 10/30/2013 ??? Unspecified hypothyroidism 10/30/2013 ??? Rheumatoid arthritis 10/30/2013 ??? Pain in joint, shoulder region 10/30/2013 ??? Osteoporosis, unspecified 10/30/2013 ??? Unspecified vitamin D deficiency 10/30/2013 ??? Other pulmonary embolism and infarction 10/30/2013 ??? Other dyspnea and respiratory abnormality 10/30/2013 ??? Abnormal weight gain 10/30/2013 ??? Cervicalgia 10/30/2013 ??? Pain in limb 10/30/2013 ??? Encounter for long-term (current) use of anticoagulants 10/30/2013 ??? Encounter for long-term (current) use of other medications 10/22/2013 ??? DJD (degenerative joint disease) of knee 09/16/2013 ??? Internal derangement of knee 09/16/2013 ??? RA (rheumatoid arthritis) 05/31/2011 ??? Edema leg 02/01/2011 ??? Cellulitis of leg, right 02/01/2011 ??? Popliteal cyst 02/01/2011 ??? MRSA (methicillin resistant Staphylococcus aureus) infection 02/01/2011 ??? Seronegative rheumatoid arthritis S/Events: Denies CP, SOB, nausea, vomiting, abd pain. Pain well controlled. Is having her normal RA pain. O: Vitals: Temp: [36.3 ??C (97.3 ??F)-37 ??C (98.6 ??F)] Heart Rate: [71-89] Resp: [12-18] BP: (124-134)/(77-91) SpO2: [94 %-100 %] I/O this shift: In: 2200 [I.V.:2200] Out: 1305 [Urine:775; Other:380; Blood:150] Exam: General: NAD, awake/alert Resp: Breathing comfortably Abd: S/NT/ND LLE: Dressing c/d/i. In cryocuff. Constavac attached and draining serosagnuinous fluid. Motor intact to EHL, FHL, TA. Sensation intact in foot/calf. Brisk capillary refill distally. Labs: No results found for this basename: WBC:3,HGB:3,HCT:3,PLATELET:3,NA:3,K:3,CL:3,CO2:3,BUN:3,CREATININE:3 in the last 72 hours A/P: 58 y.o. year old female POD#0 s/p left TKA, progressing well with stable vitals and uop. - Orders reviewed - continue all post-operative care -WBAT -coumadin tonight, lovenox and coumadin starting tomorrow until INR >1.9 * Katharina Gamboa RN - 11/02/2013 11:24 AM EST Break coverage . documented in this encounter H&P Notes * Mayco Mckeon Jr., MD - 11/02/2013 6:42 AM EST No change since H&P. Will not pursue prevention of bleeding in the face of clotting issues balanced againist her unwillingness to accept blood. She will allow constavac blood to be reapplied. Skin clear and L knee marked. Will block. Reviewed risks again. * Zan Schwartz 11/02/2013 6:42 AM EST The patient's history and physical exam have been reviewed and completed. There has been no interval change from that of the pre-operative history and physical exam done within the last 30 days. Please see H and P done by PCP Under scan docs. Patient denies any recent health changes, plan to bridge with lovenox post operatively to coumadin target 2.5- 3.5. NO cuts scrapes on leg. documented in this encounter Procedure Notes * Provider, Scanning - 11/06/2013 1:16 PM ESTAssociated Order(s): SCAN DOC: JUSTICE [facility] DEPUTY CLERK * Provider, Scanning - 11/06/2013 1:16 PM ESTAssociated Order(s): SCAN DOC: IMPLANTABLE DEVICES * Provider, Scanning - 11/06/2013 1:16 PM ESTAssociated Order(s): SCAN DOC: LAB documented in this encounter Miscellaneous Notes * Miscellaneous - Provider, Scanning - 11/06/2013 1:16 PM EST * Miscellaneous - Provider, Scanning - 11/06/2013 1:16 PM EST * Miscellaneous - Provider, Scanning - 11/06/2013 1:16 PM EST * Discharge Summary - Paige Nickerson, BACK UP MACHINE OPERATOR - 11/05/2013 4:39 PM EST Department of Orthopedic Medicine - Discharge Summary Patient Name: Marla Denton Patient Age: 58 y.o. Birthdate: 1955 Admit date: 11/02/2013 Discharge date: 11/05/2013 Attending Physician: Mayco Mckeon Jr., MD Discharge Diagnoses (Hospital Problems) and Secondary Diagnoses (Chronic Problems): Active Hospital Problems Diagnosis ??? Left TKA 11/02 ??? Chronic pain Resolved Hospital Problems Diagnosis Date Resolved No resolved problems to display. Active Non-Hospital Problems Diagnosis ??? Total knee replacement status, left ??? Lateral epicondylitis of elbow ??? Orthopnea ??? Unspecified essential hypertension ??? Unspecified hypothyroidism ??? Rheumatoid arthritis ??? Pain in joint, shoulder region Chronic ??? Osteoporosis, unspecified ??? Unspecified vitamin D deficiency ??? Other pulmonary embolism and infarction ??? Other dyspnea and respiratory abnormality ??? Abnormal weight gain ??? Cervicalgia ??? Pain in limb Bilateral leg pain ??? Encounter for long-term (current) use of anticoagulants ??? Encounter for [...] run on 02/20/2012 ??? Seronegative rheumatoid arthritis Operations/Major Procedures: 11/02/2013 Surgeon(s) and Role: * Mayco Mckeon Jr., MD - Primary * Zan Schwartz MD - Resident-Surgeon Gideon Procedure: Left Procedure(s): Left TOTAL KNEE ARTHROPLASTY MODIFIER PFC STABILIZED FIXED MODULAR DEPUY Findings: medial DJD with lush synovitis and medial and lateral meniscal tears Complications: none Hospital Course: The patient was admitted via Same Day Surgery for the above operation. DVT prophylaxis: Coumadin with Lovenox bridge. Patient began rehab on POD#1 w/ weight bearing as tolerated of left leg remembering to use protection at all times for balance and protection. Drains were removed POD# 1. Chong was removed POD#2 and patient was voiding spontaneously. Left knee dressing was inspected POD#3 and found to be dry and intact. Patient did have a bowel movement prior to discharge and was passing flatus and taking PO without difficulty. By POD#3 the patient was medically stable and was cleared for safedischarge to rehab. Of Note: The Acute Pain Service was consulted on POD#0 because of history of chronic pain, RA. By POD#3, herpain was improved and she was ready for discharge. Important Studies and Lab Data: Labs: Lab Results Component Value Date HGB 11.2 11/05/2013 HCT 36.2 11/05/2013 Electrolytes Lab Results Component Value Date Sodium 135 11/05/2013 Potassium 3.6 11/05/2013 Chloride 94* 11/05/2013 CO2 30 11/05/2013 Transfusions: No Studies: None new. Discharge Conditions/Prognosis: Stable, awake, and alert. Mobilizing slowly with a walker and staff assistance, pain controlled on oral medications. Vital Signs: Last value Range last 24 hrs Temperature Temp: 36.8 ??C (98.2 ??F) Temp: [36.5 ??C (97.7 ??F)-37.1 ??C (98.8 ??F)] Heart Rate Heart Rate: 107 Heart Rate: [82-110] Blood Pressure BP: 153/90 mmHg BP: (119-163)/(72-90) Respiratory Rate Resp: 20 Resp: [16-20] SpO2 SpO2: 97 % SpO2: [93 %-97 %] Art BP BP (Arterial Line): -- Discharge to: Rehab [address] [address] Discharge Medications: Current Discharge Medication List New Meds Dose Details acetaminophen (TYLENOL) 500 mg tablet 1,000 mg Take 2 tablets by mouth every 8 hours. Last day for scheduled dosing = . Then may take every 8 hours as needed, Do not take more than 4,000 mg of acetaminophen in 24 hours. diaZEPam (VALIUM) 5 mg tablet 5 mg Take 1 tablet by mouth every 8 hours as needed for Anxiety (spasms). Refills: 0 enoxaparin (LOVENOX) 80 mg/0.8 mL injection 80 mg Inject 0.8 mLs subcutaneously every 12 hours. Continue until INR is 1.9 or above. polyethylene glycol (MIRALAX) 17 gram packet 17 g Take 17 g by mouth 2 times daily. senna-docusate (PERICOLACE) 8.6-50 mg per tablet 1-4 tablets Take 1-4 tablets by mouth 2 times daily. diphenhydrAMINE (BENADRYL) 25 mg capsule 25 mg Take 1 capsule by mouth every 6 hours as needed for Itching (Patient requests to take this the same time as the Methadone). Continued medications with revised dosing Dose Details calcium carbonate 648 mg calcium tablet 650 mg Take 1 tablet by mouth 3 times daily (with meals). doxepin (SINEQUAN) 50 mg capsule 50 mg Take 1 capsule by mouth daily. !! gabapentin (NEURONTIN) 300 mg capsule 600 mg Take 2 capsules by mouth 2 times daily. Take at 0900 and 1400 daily. !! gabapentin (NEURONTIN) 300 mg capsule 900 mg Take 3 capsules by mouth nightly. HYDROmorphone (DILAUDID) 4 mg tablet 4-12 mg Take 1-3 tablets by mouth every 3 hours as needed for Pain. levothyroxine (SYNTHROID) 125 mcg tablet 125 mcg Take 1 tablet by mouth daily. methadone (DOLOPHINE) 5 mg tablet 25 mg Take 5 tablets by mouth every 6 hours. predniSONE (DELTASONE) 5 mg tablet 10 mg Take 2 tablets by mouth daily. warfarin (COUMADIN) 7.5 mg tablet 7.5 mg Take 1 tablet by mouth once for 1 dose. Daily Coumadin order based on INR. INR Goal 2.5-3.5. Take Lovenox 7.5 at 5 pm on . zolpidem (AMBIEN) 10 mg tablet 10 mg Take 1 tablet by mouth nightly as needed. !! - Potential duplicate medications found. Please discuss with provider. Continued medications, unchanged Dose Details doxycycline (VIBRA-TABS) 100 mg tablet 100 mg Take 1 tablet by mouth daily. Qty: 90 tablet Refills: 3 Psyllium Seed-Sucrose (METAMUCIL) Powd 1 Tsp, PO, Three times daily ergocalciferol (VITAMIN D) 50,000 unit capsule [id number] unit, PO, once a month Medications STOPPED Dose enoxaparin (LOVENOX) 120 mg/0.8 mL injection 80 mg mupirocin calcium (BACTROBAN) 2 % nasal ointment 1 Dose chlorhexidine (HIBICLENS) 4 % external liquid risedronate (ACTONEL) 35 mg tablet 35 mg DIPHENHYDRAMINE HCL (BENADRYL ALLERGY ORAL) Updated Allergies/ADRs: Allergies Allergen Reactions ??? Iodinated Contrast Media - Iv Dye Anaphylaxis ??? Iodine-Iodine Containing Anaphylaxis ??? Vancomycin Anaphylaxis ??? Infliximab Other (See Comments) throat swelling,chest heaviness ??? Ms Contin (Morphine) ??? Sulfa (Sulfonamide Antibiotics) ??? Sulfisoxazole ??? Sulfisoxazole Acetyl Unknown Instructions for Rehab Providers or PCP: 1. Anticoagulation: COUMADIN. INR Goal 2.5-3.5. INR due on 11/06/2013, then, a. PT/INR to dose coumadin every Mon and Thurs or per your routine. Coumadin dose today, , at 5pm = 7.5 mg. Will continue coumadin indefinitely as before surgery. b. If the INR level is ever above 3.5 patient should not participate in aggressive Physical therapyexercises - can mobilize/ambulate. This will decrease the possibility of more bleeding into the knee joint. Once the INR is less than 3.5 Physical therapy can be resumed. c. When the patient is discharged from rehab to home please FAX a copy of the coumadin/INR record to [facility] - [phone]. 1. Anticoagulation: LOVENOX BRIDGE TILL INR GREATER THAN 1.9. Take 80mg SQ every 12 hours until INRis greater than 1.4 - then stop 2. Activity: Full weight bearing as tolerated using walker/crutches at all times for balance and protection. Wear bilateral LINWOOD hose to knees - remove at least once per day to inspect skin. 3. Diet: Regular but increase intake of fluids and fiber while on narcotic pain meds. 4. [place]/sutures: Staple/suture removal 11-14 days after surgery (approximately ). 5. Dressing (Mepilex): Remove operative dressing 7 days from surgery (). When it is removed can leave the incision open to air or cover it with a light dressing (using the Tubifast to hold the dressing in place). If +++ drainage and it is before , remove this operative dressing and replace it with dry sterile gauze covered with Tubifast to hold the dressing in place. Continue with daily dressing changes (and as needed) until the drainage stops, then remove the dressing and leave the incision open to air or lightly covered. 6. Shower (Mepilex): Yes but pat the dressing lightly dry. DO NOT submerge the incision. 7. Aggressive bowel regimen = LBM 11/04/2013. 8. Physical Therapy/Occupational therapy: twice a day every day. 9. DO NOT place a pillow behind the left knee - encourage extension of the operated knee by placingpillow under the heel or lower leg or placing the pillow lengthwise along the leg. 10. Dilaudid and Methadone were increased during hospital stay. Will need to follow-up with PCP forongoing pain management. Instructions Given to Patient at Discharge: Provider Instructions None General Instructions Activity: 1. You can weight bear as tolerated on your Left leg remembering to use a walker or crutches at alltimes for balance and protection. 2. Flexion AND extension are important to work on at home. You should NOT place a pillow under yourleft knee. To help with extension you can place a pillow under your heel or lower leg or placed lengthwise along the leg. Again DO NOT place a pillow under the operated knee for comfort. 3. You should wear the LINWOOD hose to knee bilaterally until you are seen in followup. Remove these atleast once per day to inspect your skin. Coumadin flow sheet: Date Notes INR Coumadin dose (mg) 11/02 day of operation 1.2 5 11/03 POD 1 1.4 Lovenox 80 Q12 + 5 11/04 POD 2 1.4 Lovenox 80 Q 12 + 7.5 11/05 D/C POD 3 1.5 Lovenox 80 Q12hr + 7.5 due at 5 pm Anti-coagulation followup: 1. You should take 7.5 mg of Coumadin today at 5 pm, . 2. Your coumadin level or INR target range is 2.5-3.5. This will need to be checked while you areat rehab by your PCP or the rehab physician. 3. When you are discharged from rehab to home this will still need to be checked by the Visiting Nurse at least twice per week (usually every Saturday and ). The INR should be reported to the [facility] at [phone], and you will be informed of any needed changes in your Coumadin dose. 4. If your INR level is ever above 3.5 you should not participate in aggressive Physical therapy exercises - you can ambulate/mobilize. This will decrease the possibility of more bleeding into your joint. Once your INR is less than 3.5 you can resume Physical therapy. One of the Orthopedic nurses will call you with further instructions as needed. 5. You will continue to be on Coumadin, as before your surgery. The Orthopaedic Anticoagulation Clinic will follow your INR and order your Coumadin dose for a shore time. After a while, you will be referred back to your Primary Care Physician for continued monitoring. Lovenox injections: Your INR level did not increase as much as expected after surgery so you have been discharged on Lovenox AND coumadin. You will be on the Lovenox injections (80mg every 12 hours) until your INR level is greater than 1.9. Once that happens, stop the Lovenox and continue just the coumadin as instructed above. Diet: Resume usual diet, but increase your intake of fluids and fiber while you are on narcotic pain meds to prevent constipation Driving: No, not until you are cleared to do so by your Orthopedic surgeon. Ideally you should not drive if you are on narcotic pain meds as these can affect your judgement and reaction time. Call your surgeon with any questions. Medication: 1. The pain medication that you are using can cause constipation, so make sure you increase your intake of fluids and fiber while you are on them. You should also take the stool softener that was ordered, sennakot, to factilitate a bowel movement. An wfot-tav-sslueog medication, miralax can also beused if needed to combat constipation 2. If you need a renewal on your narcotic pain medication, you need to give the Orthopedic clinic enough time to process your request. This can take up to three days, so plan accordingly. 3. You have been discharged on your usual long acting medication, Methadone, and a short acting narcotic, Dilaudid. You will need to follow-up with your Primary Care Physician for continued pain management. 4. Continue the Tylenol around the clock for the next 10 days, (). This can be effective in controlling pain along with your other medications. Shower: 1. You can shower but remember your activity limitations and always have a chair available for balance and protection. DO NOT submerge the dressing/incision. 2. (Mepilex) Do not let water run over the operative dressing. If it becomes wet lightly pat the dressing dry. DO NOT submerge the incision. 3. You have ana/sutures. Always cover them with a waterproof dressing or plastic bag when showering until they are removed. 4. After ana/sutures are removed you can let water run gently over the incision. Wound (Mepilex): 1. Sutures/ana: Staple/suture removal 11-14 days after surgery (approximately ). 2. Remove your operative dressing 7 days from your surgery (). When it is removed you can leave the incision open to air or cover it with a light dressing. 3. If you have lots of drainage when you get home (and it is before ), remove this operative dressing and replace it with dry sterile gauze. Continue with daily dressing changes (and as needed) until the drainage stops, then remove the dressing and leave the incision open to air or lightlycovered. FOLLOWUP APPOINTMENTS: 1. You will have followup appointments at [facility] as indicated in Future Appointments and Orders. You will have an xray prior to those appointments so please come to Radiology, desk 3T, 1 hour BEFORE your appointment for those x-rays. Future Appointments and Orders Future Appointments: Provider: Department: Dept Phone: Center: 12/07/2013 12:40 PM [facility] [phone] None Joint Appt Health Question [facility] [phone] None 01/18/2014 11:45 AM Rafael Sidhu MD Rheumatology [phone] [facility] Joint Appt Rheumatology Nurse Res [facility] 5C [phone] [facility] Future Orders Please Complete By Expires Referral for Anticoagulation Monitoring [VFM065 Custom] Process Instructions: If no progress note charted, please enter Clinical details in comments. Scheduling Instructions: Comments: Questions: Responses: Responsible Group [facility] ANTICOAG Reason for referral s/p Left TKA 11/04/2013 Risk Factors: Hx PE, on Coumadin prior to surgery. To receive therapeutic Lovenox (80 mg every 12 hours) until INR is 1.9 or above. Next due INR 11/06/2013 INR Goal 2.5-3.5 Target End Date 11/29/2013 Primary Care Provider: JUNIOR MICHELLE MD [phone] Dr. Mckeon: Joints: [phone] After Hours: Call [phone] and request to speak with the Orthopaedic Residents [facility] [facility]. Electronically Signed by: PAIGE NICKERSON APRN 11/05/2013 * Plan of Care - Jana Damon RN - 11/05/2013 4:42 AM EST Problem: Skin Integrity Impairment, Risk/Actual (Adult, Obstetric) Goal: Skin Integrity Impairment, Risk/Actual: Skin Integrity/Wound Healing Patients skin noted to be intact at this time and free of pressure ulcers. Patient able to independently turn themselves every 2 hours. RN will monitor patients skin. Problem: Knee Replacement, Total (Adult) Goal: Prevent/Manage Potential Problems Based on my scope of practice, I assessed for signs and symptoms of potential problems that could be present as documented. Patient OOB independently with walker. Patient with chronic pain reports adequate relief with current pain medications, see MAR . Patient aware to notify RN if pain becomes uncontrolled. Dressing CDI. CSMTs intact, 2+ peripheral pulses. Patient tolerating adequate po fluid/nutrition intake. Patienthas active bowel sounds x4, +flatus. Voiding adequate clear yellow urine. Will continue to monitor. Problem: Trauma/Injury Risk (Adult, Obstetric) Goal: Trauma/Injury Risk: Absence of Trauma/Injury/Falls Patient OOB in room with walker and standby assist. Patient remains free of falls for hospitalization. Fall reduction program maintained. Call ibrahim within reach. Will continue to monitor. * Plan of Care - Brittni Vargas RN - 11/04/2013 5:46 PM EST Problem: Skin Integrity Impairment, Risk/Actual (Adult, Obstetric) Intervention: Skin Integrity Impairment, Risk/Actual: Related Risk Factors Skin intact at this time except incision. Patient repositions independently. Will continue to monitor. Problem: Knee Replacement, Total (Adult) Intervention: Infection Prevention Patient is maintaining Cryo-cuff to knee and is performing exercises in bed as tolerated. Will continue to monitor. Problem: Trauma/Injury Risk (Adult, Obstetric) Intervention: Trauma/Injury Risk: Related Risk Factors Patient remains free of falls during this hospitalization. Patient has a call ibrahim within reach andalerts RN appropriately when she have needs. See doc flowsheet for additional documentation. Problem: Pain Chronic (Adult, Pediatric, Obstetric) Intervention: Chronic Pain: Related Risk Factors Patient states pain is 7/10, and has been 8/10. RN has been promoting use of ice (cryocuff) and positional relief in addition to pharmacologic measures. Patient aware to alert RN if pain is not beingcontrolled with current pain medication. Will continue to monitor. * Initial Assessments - Tasneem Feliciano, OT - 11/04/2013 1:41 PM EST Occupational Therapy Evaluation Patient profile: Marla Denton is a 58 y.o. female patient of Mayco Barakat Jr., MD, admitted on 11/02/2013 s/p L TKA. PMH: Lateral epicondylitis of elbow Orthopnea Unspecified essential hypertension Unspecified hypothyroidism Rheumatoid arthritis Pain in joint, shoulder region Chronic Osteoporosis, unspecified Unspecified vitamin D deficiency Other pulmonary embolism and infarction Other dyspnea and respiratory abnormality Abnormal weight gain Cervicalgia Pain in limb Encounter for long-term (current) use of anticoagulants Encounter for long-term (current) use of other medications DJD (degenerative joint disease) of knee Internal derangement of knee RA (rheumatoid arthritis) Edema leg Cellulitis of leg, right Popliteal cyst MRSA (methicillin resistant Staphylococcus aureus) infection Seronegative rheumatoid arthritis Past Surgical History Procedure Date ??? Hysterectomy, total abdominal ??? Shoulder surgery ??? Total knee arthroplasty 11/02/2013 @TOTAL KNEE ARTHROPLASTY performed by Mayco Mckeon Jr., MD at [facility] MA[facility] OR Social History: Patient lives with her daughter, she is moving out but able to stay with her. Home Setup: n/a DME: n/a Baseline ADL/Mobility: Independent with ADL???s and IADL???s Precautions/Special Considerations: WBAT Subjective: i am just so sleepy, they messed up some of my pain meds earlier. Objective: Seen today for OT evaluation. Cognitive Status/Behavior: alert, oriented to person, place, and time and drowsy Vision & Perception: Not assessed, WFL? s Range of motion, strength, coordination: Hand dominance: n/a Bilateral UEs are within functional limitations Sensation: intact Activities of Daily Living: Self-feeding: N/A-Independent with set up Hygiene grooming: seated with set up, too sleepy to participate this pm. Upper and lower body dressing and bathing: ?? Max assist for LB dressing due to decreased knee AROM, and decreased standing balance. ?? Min assist with UB dressing. Toileting: commode transfer. Limited mobility at this time. Functional Mobility: Up in chair up on arrival. She was too sleepy to try mobilizing. One person assist with nsg. Balance: good sitting, standing not assessed. IADL???s: Assistance available to patient. Endurance: Information taken from last recorded vitals in flowsheet. Last value Range last 8 hrs Heart Rate Heart Rate: 77 Heart Rate: [77-82] Blood Pressure BP: 112/59 mmHg BP: (112-138)/(59-92) SpO2 SpO2: 94 % SpO2: [94 %-95 %] On room air Pain: working on pain control. Skin: Incision not observed. Informed Consent: The patient agrees to and understands the OT treatment plan and goals. Patient status, treatment, and mobility recommendations discussed with nursing. Assessment: Pt presents with impaired ability to perform daily activities and functional mobility secondary to TKA and slow mobility progress. Pt would benefit from ongoing OT services to maximize functional independence while hospitalized. Recommendations: Equipment needs at discharge: to be determined Discharge Recommendations: Patient requires ongoing 24/7 supervision. Patient would benefit from skilled therapy interventions to promote functional independence and safety while improving activity tolerance. Other Recommendations: n/a Goals: To be achieved by 11/09/13. 1. Pt will demonstrate independent with precautions/restrictions during ADLs. 2. Pt will perform standing ADLs with supervision only. 3. Pt will dress self independently using adaptive technique/equipment as needed. 4. Pt will ambulate independently with assistive device as needed for ADLs. 5. Pt will demonstrate shower transfers with supervision and safe technique. Plan: Pt to be seen 3-5xs per week for therapy including Role of occupational therapy/rehabilitation, Transfers, Assistive device/technique, Adaptive equipment training, ADL, Safety, Precautions/Protocol, Functional Mobility, Activity pacing/Energy conservation, Home Management, Balance, Recommendations, Family training and Discharge planning. Eval Date: 11/04/2013 Total time spent with patient: 15 minutes Total timed interventions: 0 minutes Pager: [phone] TASNEEM FELICIANO OT 11/04/2013 Occupational Therapy Rehabilitation Department * Plan of Care - Jana Damon RN - 11/04/2013 5:32 AM EST Problem: Skin Integrity Impairment, Risk/Actual (Adult, Obstetric) Goal: Skin Integrity Impairment, Risk/Actual: Skin Integrity/Wound Healing Patients skin noted to be intact at this time and free of pressure ulcers. Patient able to independently turn themselves every 2 hours. RN will monitor patients skin. Problem: Trauma/Injury Risk (Adult, Obstetric) Goal: Trauma/Injury Risk: Absence of Trauma/Injury/Falls Patient remains free of falls for hospitalization. Patient not OOB for shift. Patient aware to callfor help mobilizing. Fall reduction program maintained. Call ibrahim within reach. Will continue to monitor. * Initial Assessments - Sarita Ochoa, PT - 11/03/2013 3:10 PM EST Physical Therapy Evaluation Total Knee Arthroplasty Patient Profile: Pt. is a 58 y.o. female admitted on 11/02/2013 by Mayco Barakat Jr., MD for L TKA. Pt had R TKA in 01/19 and went to [facility] for rehab. Pt with h/o RA. R TSA in the past as well. PMH: Active Non-Hospital Problems Diagnosis ??? Lateral epicondylitis of elbow ??? Orthopnea ??? Unspecified essential hypertension ??? Unspecified hypothyroidism ??? Rheumatoid arthritis ??? Pain in joint, shoulder region Chronic ??? Osteoporosis, unspecified ??? Unspecified vitamin D deficiency ??? Other pulmonary embolism and infarction ??? Other dyspnea and respiratory abnormality ??? Abnormal weight gain ??? Cervicalgia ??? Pain in limb ??? Encounter for long-term (current) use of anticoagulants ??? Encounter for long-term (current) use of other medications ??? DJD (degenerative joint disease) of knee ??? Internal derangement of knee ??? RA (rheumatoid arthritis) ??? Edema leg ??? Cellulitis of leg, right ??? Popliteal cyst ??? MRSA (methicillin resistant Staphylococcus aureus) infection ??? Seronegative rheumatoid arthritis PSH: Past Surgical History Procedure Date ??? Hysterectomy, total abdominal ??? Shoulder surgery ??? Total knee arthroplasty 11/02/2013 @TOTAL KNEE ARTHROPLASTY performed by Mayco Mckeon Jr., MD at [facility] MAIN OR Social History: Patient lives alone, no stairs to enter. 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 APS following Subjective: Patient states ???The pain is still 9/10. It was 10/10 earlier. I'll try (PT)?? Objective: Vitals: SpO2: WNL, HR WNL Most recent Hgb value: 11.9 Pain: 9/10 at rest, increased with knee flexion Strength: 2/5 quads, -SAQ Functional Mobility: Supine->sit With 2 assist, HOB elevated Sit->supine N/E Sit->stand with 2 assist Stand->sit With 2 min assist ( 1 supporting L L/E) Gait: Ambulated Pivoted bed-CC with 2 assist and FWW, hesitant to weight bear because of pain. Also weakness sec to FNB. Gait pattern: pivot Pt. to utilize FWW and 2 assist to pivot with nursing staff until FNB out and worn off Today???s Treatment: 1. Evaluation 2. Performed 10 reps each ankle pumps, quad sets and short arc quads.Pt unable to tolerate knee flexion in sitting Pt in possession of handout illustrating the exercises and was instructed to performthem as able 3x per day. Informed Consent: The patient agrees to and understands the PT treatment plan and goals. Education: patient educated on Bed mobility, Transfers, Assistive device/technique, Exercise, Safety , Precautions/protocol, Gait , Role of therapy and Discharge planning and verbalizes understanding. Patient status, treatment, and mobility recommendations discussed with nursing staff. Assessment: Pt is POD#1 L TKA. Pt. With pain issues this am, being followed by APS. Pt agreeable to PT. Tearfulthroughout most of PT session because of pain. RN aware. Pt presents with pain, decreased ROM, strength, functional mobility, and gait skills. Pt will benefit from PT to address his/her functional deficits to restore prior level of function. Anticipate pt will need rehab. Range of Motion: AROM L knee extension = approx -15 deg, flexion = approx 20 deg but really not able to evaluate because of pain Ambulation distance: 0 feet Goals: (to be achieved by 11/05/13) Goal met? Yes No Pt will be knowledgeable of prescribed exercises. Pt will demonstrate AROM knee extension 0-15 degrees and flexion 80-90 degrees Pt will move supine<>sit ind. Pt will move sit<>stand ind. Pt will ambulate 100 feet using FWW and 1 CG assist Discharge Recommendations: Patient will require 24/ supervision and assistance. Patient would benefit and tolerate continued daily intensive therapy interventions to maximize functional independence. Physical Therapist recommends: Occupational Therapy consult Plan: Patient to be seen daily for physical therapy to include Therapeutic exercises, Therapeutic functional activities and Gait training. Patient agrees to the plan as stated. Equipment needs: Rolling walker. Activity plan w/nursing assist (discussed with nursing staff): Pivot transfer with 1 assist Total treatment time: 35 minutes Total timed treatment: 0 minutes michel OCHOA, PT Pager: [phone] * Plan of Care - Dale Ventura RN - 11/02/2013 11:26 PM EST Problem: Skin Integrity Impairment, Risk/Actual (Adult, Obstetric) Intervention: Skin Integrity Impairment, Risk/Actual: Related Risk Factors Patients skin to be intact at this time. Patient repositions independently. RN will continue to monitor patients skin. Problem: Knee Replacement, Total (Adult) Intervention: Infection Prevention Patient seems to have well controlled pain at the time and the most his pain has been rated this shift is 6/10 with activity. Patient is maintaining ice on knee and is performing exercises in bed as tiolerated. RN will continue to monitor patient and encourage progress. Problem: Trauma/Injury Risk (Adult, Obstetric) Intervention: Trauma/Injury Risk: Related Risk Factors Patient is currently on bedrest. Patient remains free of falls during this hospitalization. Patienthas a call ibrahim within reach and alerts RN appropriately when they have needs. See doc flowsheet for additional documentation. Problem: Pain Chronic (Adult, Pediatric, Obstetric) Intervention: Chronic Pain: Related Risk Factors Patient tolerating bedrest. Patient states pain is 6/10, and has been 8/10 RN has been promoting use of ice (cryocuff) and positional relief in addition to pharmacologic measures. Patient aware to alert RN if pain is not being controlled with current pain medication. RN will continue to monitor patient. * Consult Note - Uli Owusu MD - 11/02/2013 5:14 PM EST Acute Pain Service Consultation Pt Age: 58 y.o. Date of Consultation: 11/02/2013 Consult Service: Acute Pain Place of Service: PACU Responsible Attending: Dr. Mckeon Consultation Reason: I am seeing Marla Denton for my opinion regarding post op pain management(sp L TKA today) for this patient with chronic pain due to RA. History of Present Illness: 58 year old female with history of chronic pain due to RA now in PACU sp L TKA. Post op she was having consistent complaints of 10/10 pain in spite of high doses of IV hydromorphone (~20 mgs over 5 hour period). Her pain has been better controlled over the past 2 hours sp multiple boluses of hydromorphone and MOBILITY SPECIALIST dosing with same. She is sleeping comfortably at the time of APS visit. Review of Systems: Unable to obtain (sleeping) Past Medical and Surgical History: Patient Active Problem List Diagnosis Date Noted ??? Left TKA 11/0211/02/2013 ??? Lateral epicondylitis of elbow 10/30/2013 ??? Orthopnea 10/30/2013 ??? Unspecified essential hypertension 10/30/2013 ??? Unspecified hypothyroidism 10/30/2013 ??? Rheumatoid arthritis 10/30/2013 ??? Pain in joint, shoulder region 10/30/2013 ??? Osteoporosis, unspecified 10/30/2013 ??? Unspecified vitamin D deficiency 10/30/2013 ??? Other pulmonary embolism and infarction 10/30/2013 ??? Other dyspnea and respiratory abnormality 10/30/2013 ??? Abnormal weight gain 10/30/2013 ??? Cervicalgia 10/30/2013 ??? Pain in limb 10/30/2013 ??? Encounter for long-term (current) use of anticoagulants 10/30/2013 ??? Encounter for long-term (current) use of other medications 10/22/2013 ??? DJD (degenerative joint disease) of knee 09/16/2013 ??? Internal derangement of knee 09/16/2013 ??? RA (rheumatoid arthritis) 05/31/2011 ??? Edema leg 02/01/2011 ??? Cellulitis of leg, right 02/01/2011 ??? Popliteal cyst 02/01/2011 ??? MRSA (methicillin resistant Staphylococcus aureus) infection 02/01/2011 ??? Seronegative rheumatoid arthritis Past Surgical History Procedure Date ??? Hysterectomy, total abdominal ??? Shoulder surgery ADR/Allergies: Allergies Allergen Reactions ??? Iodinated Contrast Media - Iv Dye Anaphylaxis ??? Iodine-Iodine Containing Anaphylaxis ??? Vancomycin Anaphylaxis ??? Infliximab Other (See Comments) throat swelling,chest heaviness ??? Ms Contin (Morphine) ??? Sulfa (Sulfonamide Antibiotics) ??? Sulfisoxazole ??? Sulfisoxazole Acetyl Unknown Pertinent Medications: Scheduled Meds: ??? sodium chloride 0.9 % 5 mL Intravenous Q12H ??? ceFAZolin 2 g Intravenous Once ??? tranexamic acid (CYLOKAPRON) IVPB 15 mg/kg/dose Intravenous Once ??? gabapentin 600 mg Oral TID ??? predniSONE 10 mg Oral Daily ??? ceFAZolin 1 g Intravenous Q8H ??? acetaminophen 1,000 mg Oral Q8H JASIEL ??? methadone 25 mg Oral 4 Times Daily ??? [DISCONTINUED] methadone 20 mg Oral 4 Times Daily Continuous Infusions: ??? lactated ringers 1,000 mL (11/02/13 0645) ??? lactated ringers ??? sodium chloride 0.9% 1,000 mL (11/02/13 1100) ??? MOBILITY SPECIALIST estrada ??? HYDROmorphone ??? [DISCONTINUED] HYDROmorphone PRN Meds:.midazolam, fentaNYL (PF), nalOXone, ondansetron, diphenhydrAMINE, HYDROmorphone, [COMPLETED] HYDROmorphone, LORazepam Family History: Not obtained (sleeping) Social History: Not obtained (sleeping) Physical Exam: Last Set of Vitals: BP 146/91 Pulse 94 Temp 36.5 ??C (97.7 ??F) (Temporal) Resp 12 Ht 149.9 cm (4' 11) Wt 74.844 kg (165 lb) BMI 33.33 kg/m2 SpO2 97% Sleeping comfortably No respiratory depression, nl sats on NC Labs: Recent Results (from the past 24 hour(s)) PROTHROMBIN TIME Component Value Range PT 15.1 (*) 12.0 - 15.0 sec INR 1.2 (*) 0.9 - 1.1 Assessment: 58 year old woman with chronic pain due to RA here with episode of acute, difficult to manage pain in the PACU following L TKA. Following large boluses of MD/nurse administered hydromorphone and starting MOBILITY SPECIALIST her pain has been better managed and she is currently sleeping comfortably. This afternoon she has proven that she can tolerate large doses of opioid analgesia without respiratory depression. Thus it would make sense to increase her hydromorphone MOBILITY SPECIALIST settings as large boluses of hydromorphone eventually was able to manage her pain. She may also benefit from increasing her morphine dosing as well. Recommendation: Continue Gabapentin 600 mg TID. Continue Lorazepam 0.5 mgs Q5 PRN. Continue acetaminophen 1000 mg Q8 hours scheduled. Increase Dilaudid MOBILITY SPECIALIST settings from 0.2 mgs Q7 mins with 4 mg/4 hour lockout --> 0.6 mg Q5 mins with 15 mg/4 hour lockout. Increase methadone dosing from 20 mgs QID --> 25 mgs QID. Consult service will continue to follow patient. Recommendations are above, please page if further consultation required. CHAVA URIBE MD 11/02/2013 beeper # [id number] I have seen the patient and reviewed the resident's above history and I agree with the details as written. I personally interviewed the patient and performed critical or estrada elements of the physical examination as appropriate. The assessment and management plan were formulated in discussion with meand I agree with them as documented. ULI OWUSU MD * Miscellaneous - Provider, Scanning - 11/02/2013 2:54 PM EST * Op Note - Zan Schwartz - 11/02/2013 10:32 AM EST Operative Note Patient Name: Marla Denton : [id number] MR#: [id number] Case Date: 11/02/2013 Surgeon: Surgeon(s) and Role: * Mayco Mckeon Jr., MD - Primary * Zan Schwartz MD - Resident-Surgeon Gideon Preoperative diagnosis: Rheu. Arth. with DJD and meniscal tear, Pat fem arthritis Postoperative diagnosis: Rheu. Arth. with DJD and meniscal tear, Pat fem arthritis Procedure(s): @TOTAL KNEE ARTHROPLASTY MODIFIER PFC STABILIZED FIXED MODULAR DEPUY Anesthesia: Spinal Findings: medial DJD with lush synovitis and medial and lateral meniscal tears Complications: none Fluids: Crystalloid 2000cc Estimated Blood Loss: 150cc Drains: constavac Urine Output: 500cc mL Tourniquet Time: 67 minutes. Left TKR Post OP LT Intra Op Knee Flexion (degrees): 105 LT Intra Op Knee Extension (degrees): 0 LT Intra Op Stability Ap Translation: <5mm LT Intra Op Stability Varus: <5mm LT Intra Op Stability Valgus: <5mm LT Lateral Release Performed: No LT Intra Op Bone Cement : Antibiotic LT Intra Op Surgical Approach: Quad Split LT Intra Op FX at Index Surgery: No LT Patient Specific Instrument Used: No LT Computer Assisted Case: No Implant Name Type Inv. Item Serial No. Pharmacy Intern Lot No. LRB No. Used Action TRAY,TIB,SGM,MOD,CMNT,SZ2 ([id number]) (AUTOREQ) - [id number] IMPLANTS TRAY,TIB,SGM,MOD,CMNT,SZ2 ([id number]) (AUTOREQ) Depuy Banquet Lead - [id number] Left 1 Implanted COMPO,SGM,FEM,PS,CMNT,LT,SZ2 ([id number]) (AUTOREQ) - [id number] IMPLANTS COMPO,SGM,FEM,PS,CMNT,LT,SZ2 ([id number]) (AUTOREQ) Depuy Banquet Lead - [id number] Left 1 Implanted KOCH,PFC,SGM,RND,SM,35MM ([id number]) (AUTOREQ) - [id number] IMPLANTS KOCH,PFC,SGM,RND,SM,35MM ([id number]) (AUTOREQ) Depuy Banquet Lead - [id number] Left 1 Implanted INSER,SGM,STAB,CRSLNK,2X8MM ([id number]) (AUTOREQ) - [id number] IMPLANTS INSER,SGM,STAB,CRSLNK,2X8MM ([id number]) (AUTOREQ) Depuy Banquet Lead - [id number] Left 1 Implanted CEMENT,BNE,CMW 1,GNTA,40GM ([id number]) - [id number] IMPLANTS CEMENT,BNE,CMW 1,GNTA,40GM ([id number]) Depuy Banquet Lead - [id number] Left 1 Implanted Disposition: awakened from anesthesia, extubated and taken to the recovery room in a stable condition, having suffered no apparent untoward event. Condition: doing well without problems Patient was brought into the operating room where consent was confirmed, side was confirmed. She subsequently was given a spinal anesthestic by the anesthesia team. A tourniquet was then placed high on the Left thigh. She was then prepped and draped in the usual sterile fashion. A time out was performed under standard [facility] protocol. A midline incision using a 10 blade was made and full thickness skin flaps were developed bluntly and sharply. A quad splitting arthrotomy was carried down to the superiolateral pole of the patella was used to enter the knee joint. Straw colored synovial fluid was encountered. A subperiosteal peel was carried around the medial tibial plateau. Portions of the infrapatellar fat pad were excised. The patella was everted and the knee carefully flexed up. The entire lateral meniscus and anterior horn of the medial meniscus and the anterior and posterior cruciate ligaments were sacrificed. With the knee flexed the intersection of Whitesides line and the intercondylar axis was identified and the femoral canal was entered using an awl followed by a step drill and T-handled canal finder. Care was taken to suction the hole between each step to reduce the risk of emboli. The intramedullary femoral guide nael was placed and set for a 9-mm distal resection with 5 degrees of valgus tilt. The cutting block was secured into place with pins. The intramedullary guide nael was removed and an oscillating saw was used to perform the distal femoral cut. The cutting block was removed and the size2 sizing guide was placed on the distal cut femur, corresponding to an anterior cut flush with the a nterior cortex of the femur. Pins were placed through the guide and were noted to match the epicondylar axis. The size 2 AP cutting block was then pinned in place and the anterior, posterior and chamfer cuts were made. The appropriate sized box cutting guide was placed over the distal femur and pinned into place. The box cut was then made using a narrow oscillating saw. The medial meniscus was then resected using Bovie electrocautery. The extramedullary tibial alignment guide was placed in reference to the mechanical axis and set for a 4 mm resection off the more involved medial compartment. The cutting block was secured into place with minimal posterior slope. Anoscillating saw was used to make the proximal tibia resection. A size 2 tibial tray was placed and found to give adequate bony coverage. The appropriate sized femoral trial component was then impacted into position and posterior osteophytes were removed using a estrada elevator. The size 2 trial tibial tray and 8 mm polyethylene trial were placed and the knee was brought through a full range of motion and found to be stable. The flexionextension gap was tested and felt to be balanced. Attention was now turned to the patella which was measured to be 23mm thick. Synovium and osteophytes surrounding the patella were removed. Approximately 9 mm of bone was resected with the circular patella jig reaming device. A sizing guide was placed and a 35 round button was determined to be mostappropriate. The drill guide was placed and three peg holes were created using a step drill. A trial patellar button was placed, for a final thickness of 22 mm. The patella was reduced and the knee was brought through a full range of motion and found to be stable. All trial components were then removed and the final preparation of the tibia was performed. The size 2 tibia tray was placed to line up with the medial third of the tibial tubercle and pinned into position. The top hat was placed and the keel hole prepared using the top hat and step drill followedby tibial broach. The entire knee was then copiously irrigated with pulse lavaged normal saline. Onthe back table the antibiotic free cement was mixed for about 2 minutes. During that time all bony surfaces were dried. Cement was placed on the dried tibial and femoral surfaces and pressed into thebone surface to help with bone- cement interdigitation and the final components impacted into position. The 8 mm polyethylene insert was placed and the knee brought into extension and axially loaded. The exposed patella bony surface was dried and the patella was cemented into position and held with a clamp. After the cement had polymerized, the patella was reduced and the knee was brought through a final range of motion and found to come to full extension without hyperextending and to be stable to varus and valgus stress in extension and flexion. The knee was then copiously irrigated with pulse lavage normal saline. The tourniquet was deflated and adequate hemostasis was obtained with Bovie cautery. A drain was placed through a separate superolateral stab incision and hooked up to suction. The arthrotomy was closed with a 0 Vicryl. The wound was irrigated once again with pulse lavage. The subcutaneous tissues were reapproximated with a 0 Vicryl and 2-0 Vicryl and 3-0 vicryl in sequential layers. The skin was closed using ana. The wounds were cleansed, dried and a sterile dressing consisting of silver mepilex was placed. A [id number] Elvis bandage was applied. A Cryo/Cuff and Venodyne were applied. * Brief Op Note - Mayco Mckeon Jr., MD - 11/02/2013 10:07 AM EST Brief Operative Note Patient Name: Marla Denton : [id number] MR#: [id number] Case Date: 11/02/2013 Surgeon: Surgeon(s) and Role: * Mayco Mckeon Jr., MD - Primary * Zan Schwartz MD - Resident-Surgeon Gideon Preoperative diagnosis: Rheu. Arth. with DJD and meniscal tear, Pat fem arthritis Postoperative diagnosis: Rheu. Arth. with DJD and meniscal tear, Pat fem arthritis Procedure(s): @TOTAL KNEE ARTHROPLASTY MODIFIER PFC STABILIZED FIXED MODULAR DEPUY Anesthesia: Spinal Findings: medial DJD with lush synovitis and medial and lateral meniscal tears Complications: none Fluids: Crystalloid 2000cc Estimated Blood Loss: 150cc Drains: constavac Urine Output: 500cc mL Tourniquet Time: 67 minutes. Left TKR Post OP LT Intra Op Knee Flexion (degrees): 105 LT Intra Op Knee Extension (degrees): 0 LT Intra Op Stability Ap Translation: <5mm LT Intra Op Stability Varus: <5mm LT Intra Op Stability Valgus: <5mm LT Lateral Release Performed: No LT Intra Op Bone Cement : Antibiotic LT Intra Op Surgical Approach: Quad Split LT Intra Op FX at Index Surgery: No LT Patient Specific Instrument Used: No LT Computer Assisted Case: No Implant Name Type Inv. Item Serial No. Pharmacy Intern Lot No. LRB No. Used Action TRAY,TIB,SGM,MOD,CMNT,SZ2 ([id number]) (AUTOREQ) - [id number] IMPLANTS TRAY,TIB,SGM,MOD,CMNT,SZ2 ([id number]) (AUTOREQ) Depuy Banquet Lead - [id number] Left 1 Implanted COMPO,SGM,FEM,PS,CMNT,LT,SZ2 ([id number]) (AUTOREQ) - [id number] IMPLANTS COMPO,SGM,FEM,PS,CMNT,LT,SZ2 ([id number]) (AUTOREQ) Depuy Banquet Lead - 3527 [id number] Left 1 Implanted KOCH,PFC,SGM,RND,SM,35MM ([id number]) (AUTOREQ) - [id number] IMPLANTS KOCH,PFC,SGM,RND,SM,35MM ([id number]) (AUTOREQ) Depuy Banquet Lead - 3527 [id number] Left 1 Implanted INSER,SGM,STAB,CRSLNK,2X8MM ([id number]) (AUTOREQ) - [id number] IMPLANTS INSER,SGM,STAB,CRSLNK,2X8MM ([id number]) (AUTOREQ) Depuy Banquet Lead - 3527 [id number] Left 1 Implanted CEMENT,BNE,CMW 1,GNTA,40GM ([id number]) - [id number] IMPLANTS CEMENT,BNE,CMW 1,GNTA,40GM ([id number]) Depuy Banquet Lead - 3527 [id number] Left 1 Implanted Disposition: awakened from anesthesia, extubated and taken to the recovery room in a stable condition, having suffered no apparent untoward event. Condition: doing well without problems Coumadin tonight and lovenox tomorrow and until INR 1.9. Weightbearing as tolerated. Shoulders withsome arthritis * OR Attestation - Mayco Mckeon Jr., MD - 11/02/2013 10:05 AM EST Attestation: Case Date: 11/02/2013 I was present and I participated during the entire procedure (does not need to include opening and closing). MAYCO MCKEON JR, MD 11/02/2013 documented in this encounter Plan of Treatment Scheduled Referrals Name Type Priority Associated Diagnoses Order Schedule Referral for Anticoagulation Monitoring Outpatient Referral Routine Total knee replacement status, left Ordered: 11/05/2013 documented as of this encounter Procedures Procedure Name Priority Date/Time Associated Diagnosis Comments LAB SCAN 11/06/2013 1:16 PM EST IMPLANTABLE DEVICES SCAN 11/06/2013 1:[address] DEPUTY CLERK SCAN 11/06/2013 1:16 PM EST BMP W/FASTING GLUCOSE Routine 11/05/2013 8:32 AM EST DIFFERENTIAL, AUTOMATED Routine 11/05/2013 8:32 AM EST PROTHROMBIN TIME Routine 11/05/2013 8:32 AM EST CBC (WITH DIFF) Routine 11/05/2013 8:32 AM EST DIFFERENTIAL, AUTOMATED Routine 11/04/2013 6:40 PM EST PROTHROMBIN TIME Routine 11/04/2013 6:40 PM EST CBC (WITH DIFF) Routine 11/04/2013 6:40 PM EST BASIC METABOLIC PANEL Routine 11/04/2013 6:40 PM EST DIFFERENTIAL, AUTOMATED Routine 11/03/2013 6:15 AM EST PROTHROMBIN TIME Routine 11/03/2013 6:15 AM EST CBC (WITH DIFF) Routine 11/03/2013 6:15 AM EST BASIC METABOLIC PANEL Routine 11/03/2013 6:15 AM EST SURGICAL PATHOLOGY REPORT Routine 11/02/2013 9:54 AM EST SPECIMEN TO PATHOLOGY Routine 11/02/2013 8:29 AM EST MODIFIER PFC STABILIZED FIXED MODULAR DEPUY 11/02/2013 7:20 AM EST DJD (degenerative joint disease) of knee TOTAL KNEE ARTHROPLASTY (WRVU 19.6) 11/02/2013 7:20 AM EST DJD (degenerative joint disease) of knee PROTHROMBIN TIME STAT 11/02/2013 6:07 AM EST DJD (degenerative joint disease) of knee documented in this encounter Results * SCAN DOC: IMPLANTABLE DEVICES (11/06/2013 1:16 PM EST) Narrative 11/06/2013 1:16 PM EST Procedure Note Provider, Scanning - 11/06/2013 1:16 PM EST Scanning Provider MEDIA MGR SCAN EXT O RDR/RSLT * SCAN DOC: LAB (11/06/2013 1:16 PM EST) Narrative 11/06/2013 1:16 PM EST Procedure Note Provider, Scanning - 11/06/2013 1:16 PM EST Scanning Provider MEDIA MGR SCAN EXT O RDR/RSLT * SCAN DOC: JUSTICE COURT DEPUTY CLERK (11/06/2013 1:16 PM EST) Anatomical Region Laterality Modality Other Narrative 11/06/2013 1:23 PM EST Procedure Note Provider, Scanning - 11/06/2013 1:16 PM EST Scanning Provider MEDIA MGR SCAN EXT O RDR/RSLT * (ABNORMAL) Differential, Automated (11/05/2013 8:32 AM EST) Neutrophil % 74.3(H) 34.0 - 71.0 % CERNER MILLENNIUM Neutrophil Absolute 13.42(H) 1.50 - 6.30 x10(3)/mc L CERNER MILLENNIUM Lymph % 17.8(L) 19.0 - 53.0 % CERNER MILLENNIUM Lymphocytes Abs 3.2 1.0 - 3.6 x10(3)/mc L CERNER MILLENNIUM Monocyte % 4.7 4.0 - 13.0 % CERNER MILLENNIUM Monocyte Abs 0.8 0.2 - 1.0 x10(3)/mc L CERNER MILLENNIUM Eos % 2.1 0.0 - 7.0 % CERNER MILLENNIUM Eosinophils Abs 0.4 0.0 - 0.5 x10(3)/mc L CERNER MILLENNIUM Basophil % 0.2 0.0 - 2.0 % CERNER MILLENNIUM Baso Absolute 0.0 0.0 - 0.2 x10(3)/mc L CERNER MILLENNIUM Immature Gran % 0.90(H) 0.00 - 0.66 % [facility] MILLENNIUM Comment: Immature granulocytes(IG's)percentage and absolute count will include metamyelocytes, myelocytes, and promyelocytes. Blood smears from CBCs yielding IG's will be scanned manually for concordance. If this scan disagrees with the automated IG or if promyelocytes are noted, a manual differential will be performed. Immature Gran Absolute 0.16(H) 0.00 - 0.05 x10(3)/mc L [facility] Blood specimen (specimen) 11/05/2013 8:32 AM EST 11/05/2013 8:37 AM EST Mayco Mckeon Jr., MD HEMATOLOGY ORDERA BLES Performing Organization Address [facility] de Phone Number [facility] * (ABNORMAL) Prothrombin Time (11/05/2013 8:32 AM EST) Prothrombin Time 18.5(H) 12.0 - 15.0 sec [facility] Comment: [facility] Transfusion Committee Guidelines: INR less than 2.0, PTT less than OR equal to 43.5 seconds, or Fibrinogen greater than or equal to 100 mg/dl indicate adequate procoagulant activity for hemostasis in patients without underlying bleeding disorders. International Normalization Ratio 1.5(H) 0.9 - 1.1 [facility] Blood specimen (specimen) 11/05/2013 8:32 AM EST 11/05/2013 8:37 AM EST Narrative Resulting Agency Comment Spec In Lab Mayco Mckeon Jr., MD HEMATOLOGY ORDERA BLES Performing Organization Address [facility] de Phone Number [facility] * (ABNORMAL) BMP w/fasting Glucose (11/05/2013 8:32 AM EST) Glucose Fasting 177(H) 65 - 99 mg/dL [facility] Comment: ?Fasting* Glucose Interpretive Criteria Normal ?65-99 mg/dL Impaired Fasting glucose ?100-125 mg/dL Consistent with Diabetes Mellitus ? >or= 126 mg/dL *Fasting is defined as no caloric intake for at least 8 hours In the absence of unequivocal hyperglycemia a plasma glucose value of >or= 126 mg/dL should be repeated on a subsequent day. Diagnosis and Classification of Diabetes Mellitus, Position Statement from the [place] [employer]. ??Diabetes Care, Volume 33, Supplement 1, Nov 2009 Blood Urea Nitrogen 9 8 - 18 mg/dL [facility] MILLENNIUM Creatinine 0.64(L) 0.70 - 1.20 mg/dL [facility]ERN[facility] MILLENNIUM Comment: Please note that the pediatric reference intervals supplied above were not validated at [facility]. Results from pediatric patients should be interpreted in conjunction to the patient's age, height and muscle mass. Sodium 135 135 - 145 mmol/L CERN[facility] MILLENNIUM Potassium 3.6 3.5 - 5.0 mmol/L [facility] MILLENNIUM Comment: Please note: ??Patients with WBC >100,000 may have falsely elevated Potassium levels. ??For accurate Potassium quantification in these patients send serum separator tube (gold top) for subsequent determinations. ??Contact the Clinical Chemistry Laboratory if there are any questions. Chloride 94(L) 98 - 107 mmol/L [facility] MILLENNIUM Carbon Dioxide 30 22 - 31 mmol/L [facility] MILLENNIUM Anion Gap 11 5 - 15 mmol/L [facility] MILLENNIUM Calcium 8.9 8.5 - 10.5 mg/dL [facility] MILLENNIUM Est Glomerular Filtration Rate [...] the following links into your internet browser. http://www.nkdep.nih.gov/lab-evaluation.shtml http://www.kidney.org/professionals/ Blood specimen (specimen) 11/05/2013 8:32 AM EST 11/05/2013 8:37 AM EST Narrative Resulting Agency Comment Spec In Lab Mayco Mckeon Jr., MD CHEMISTRY ORDERAB LES Performing Organization Address [facility]/ZIP Co de Phone Number CERNER MILLENNIUM * (ABNORMAL) CBC (with Diff) (11/05/2013 8:32 AM EST) White Blood Cell 18.0(H) 4.0 - 10.0 x10(3)/mc L CERNER MILLENNIUM Red Blood Cell 3.81(L) 3.93 - 5.22 x10(6)/mc L [facility] MILLENNIUM Hemoglobin 11.2 11.2 - 15.7 gm/dL [facility] MILLENNIUM Hematocrit 36.2 34.0 - 45.0 % CERNER MILLENNIUM Mean Cell Volume 95.0(H) 79.0 - 94.0 fL [facility] MILLENNIUM Mean Cell Hemoglobin 29.4 26.6 - 32.2 pg [facility] MILLENNIUM Mean Cell Hemoglobin Concentration 30.9(L) 32.0 - 36.5 gm/dL [facility]ERN[facility] MILLENNIUM Platelet 386(H) 145 - 370 x10(3)/mc L [facility] MILLENNIUM RDW Standard Deviation 48.3(H) 35.0 - 46.0 fL CERNER MILLENNIUM RDW coefficient of variation 14.0 10.9 - 14.4 % CERNER MILLENNIUM Mean Platelet Volume 9.7 9.0 - 12.0 fL [facility] MILLENNIUM Blood specimen (specimen) 11/05/2013 8:32 AM EST 11/05/2013 8:37 AM EST Narrative Resulting Agency Comment Spec In Lab Mayco Mckeon Jr., MD HEMATOLOGY ORDERA BLES [facility] * (ABNORMAL) Differential, Automated (11/04/2013 6:40 PM EST) Neutrophil % 81.5(H) 34.0 - 71.0 % CERNER MILLENNIUM Neutrophil Absolute 14.65(H) 1.50 - 6.30 x10(3)/mc L CERNER MILLENNIUM Lymph % 10.1(L) 19.0 - 53.0 % CERNER MILLENNIUM Lymphocytes Abs 1.8 1.0 - 3.6 x10(3)/mc L CERNER MILLENNIUM Monocyte % 7.1 4.0 - 13.0 % CERNER MILLENNIUM Monocyte Abs 1.3(H) 0.2 - 1.0 x10(3)/mc L CERNER MILLENNIUM Eos % 0.5 0.0 - 7.0 % CERNER MILLENNIUM Eosinophils Abs 0.1 0.0 - 0.5 x10(3)/mc L CERNER MILLENNIUM Basophil % 0.2 0.0 - 2.0 % CERNER MILLENNIUM Baso Absolute 0.0 0.0 - 0.2 x10(3)/mc L CERNER MILLENNIUM Immature Gran % 0.60 0.00 - 0.66 % CERNER MILLENNIUM Comment: Immature granulocytes(IG's)percentage and absolute count will include metamyelocytes, myelocytes, and promyelocytes. Blood smears from CBCs yielding IG's will be scanned manually for concordance. If this scan disagrees with the automated IG or if promyelocytes are noted, a manual differential will be performed. Immature Gran Absolute 0.11(H) 0.00 - 0.05 x10(3)/mc L CERN[facility] MILLENNIUM Blood specimen (specimen) 11/04/2013 6:40 PM EST 11/04/2013 6:46 PM EST Mayco Mckeon Jr., MD HEMATOLOGY ORDERA [facility] Organization Address City/State/ZIP Co de Phone Number [facility] * (ABNORMAL) Basic Metabolic Panel (non-fasting) (11/04/2013 6:40 PM EST) Pathologist [facility] Glucose 157 60 - 199 mg/dL CERNER MILLENNIUM Comment:Diabetes: >=200 mg/d L plus symptoms Blood Urea Nitrogen 9 8 - 18 mg/dL CERNER MILLENNIUM Creatinine 0.70 0.70 - 1.20 mg/dL CERNER MILLENNIUM Comment: Please note that the pediatric reference intervals supplied above were not validated at [facility]. Results from pediatric patients should be interpreted in conjunction to the patient's age, height and muscle mass. Sodium 138 135 - 145 mmol/L CERNER MILLENNIUM Potassium 4.4 3.5 - 5.0 mmol/L CERNER MILLENNIUM Comment: Please note: ??Patients with WBC >100,000 may have falsely elevated Potassium levels. ??For accurate Potassium quantification in these patients send serum separator tube (gold top) for subsequent determinations. ??Contact the Clinical Chemistry Laboratory if there are any questions. Chloride 97(L) 98 - 107 mmol/L CERNER MILLENNIUM Carbon Dioxide 33(H) 22 - 31 mmol/L CERNER MILLENNIUM Anion Gap 8 5 - 15 mmol/L CERNER MILLENNIUM Calcium 8.8 8.5 - 10.5 mg/dL CERNER MILLENNIUM Comment:result rechecked- ab Est Glomerular Filtration Rate >60 >=60 CERNER [...] the following links into your internet browser. http://www.nkdep.nih.gov/lab-evaluation.shtml http://www.kidney.org/professionals/ Blood specimen (specimen) 11/04/2013 6:40 PM EST 11/04/2013 6:46 PM EST Narrative Resulting Agency Comment Spec In Lab Mayco Mckeon Jr., MD CHEMISTRY ORDERAB LES [facility]ILLENNI[facility] * (ABNORMAL) CBC (with Diff) (11/04/2013 6:40 PM EST) White Blood Cell 18.0(H) 4.0 - 10.0 x10(3)/mc L CERNER MILLENNIUM Red Blood Cell 3.71(L) 3.93 - 5.22 x10(6)/mc L CERNER MILLENNIUM Hemoglobin 11.1(L) 11.2 - 15.7 gm/dL CERNER MILLENNIUM Hematocrit 35.5 34.0 - 45.0 % CERNER MILLENNIUM Mean Cell Volume 95.7(H) 79.0 - 94.0 fL CERNER MILLENNIUM Mean Cell Hemoglobin 29.9 26.6 - 32.2 pg CERNER MILLENNIUM Mean Cell Hemoglobin Concentration 31.3(L) 32.0 - 36.5 gm/dL CERNER MILLENNIUM Platelet 364 145 - 370 x10(3)/mc L CERNER MILLENNIUM RDW Standard Deviation 49.0(H) 35.0 - 46.0 fL CERNER MILLENNIUM RDW coefficient of variation 14.0 10.9 - 14.4 % CERNER MILLENNIUM Mean Platelet Volume 9.7 9.0 - 12.0 fL CERNER MILLENNIUM Blood specimen (specimen) 11/04/2013 6:40 PM EST 11/04/2013 6:46 PM EST Narrative Resulting Agency Comment Spec In Lab Mayco Mckeon Jr., MD HEMATOLOGY ORDERA BLES Performing Organization Address [facility] de Phone Number CERGRACIELA CARLISLEENNIUM * (ABNORMAL) Prothrombin Time (11/04/2013 6:40 PM EST) Prothrombin Time 18.1(H) 12.0 - 15.0 sec CERNER MILLENNIUM Comment: [facility] Transfusion Committee Guidelines: INR less than 2.0, PTT less than OR equal to 43.5 seconds, or Fibrinogen greater than or equal to 100 mg/dl indicate adequate procoagulant activity for hemostasis in patients without underlying bleeding disorders. International Normalization Ratio 1.4(H) 0.9 - 1.1 CERNER MILLENNIUM Blood specimen (specimen) 11/04/2013 6:40 PM EST 11/04/2013 6:46 PM EST Narrative Resulting Agency Comment Spec In Lab Mayco Mckeon Jr., MD HEMATOLOGY ORDERA BLES Performing Organization Address City/[facility] Co de Phone Number CERGRACIELA CARLISLEENNIUM * (ABNORMAL) Differential, Automated (11/03/2013 6:15 AM EST) Neutrophil % 80.5(H) 34.0 - 71.0 % CERNER MILLENNIUM Neutrophil Absolute 12.09(H) 1.50 - 6.30 x10(3)/mc L CERNER MILLENNIUM Lymph % 13.0(L) 19.0 - 53.0 % CERNER MILLENNIUM Lymphocytes Abs 2.0 1.0 - 3.6 x10(3)/mc L CERNER MILLENNIUM Monocyte % 5.7 4.0 - 13.0 % CERNER MILLENNIUM Monocyte Abs 0.9 0.2 - 1.0 x10(3)/mc L CERNER MILLENNIUM Eos % 0.3 0.0 - 7.0 % CERNER MILLENNIUM Eosinophils Abs 0.0 0.0 - 0.5 x10(3)/mc L CERNER MILLENNIUM Basophil % 0.1 0.0 - 2.0 % CERNER MILLENNIUM Baso Absolute 0.0 0.0 - 0.2 x10(3)/mc L CERNER MILLENNIUM Immature Gran % 0.40 0.00 - 0.66 % CERNER MILLENNIUM Comment: Immature granulocytes(IG's)percentage and absolute count will include metamyelocytes, myelocytes, and promyelocytes. Blood smears from CBCs yielding IG's will be scanned manually for concordance. If this scan disagrees with the automated IG or if promyelocytes are noted, a manual differential will be performed. Immature Gran Absolute 0.06(H) 0.00 - 0.05 x10(3)/mc L CERNER MILLENNIUM Blood specimen (specimen) 11/03/2013 6:15 AM EST 11/03/2013 6:35 AM EST Mayco Mckeon Jr., MD HEMATOLOGY ORDERA BLES JAZMIN PETE * (ABNORMAL) Prothrombin Time (11/03/2013 6:15 AM EST) Prothrombin Time 17.6(H) 12.0 - 15.0 sec CERNER MILLENNIUM Comment: [facility] Transfusion Committee Guidelines: INR less than 2.0, PTT less than OR equal to 43.5 seconds, or Fibrinogen greater than or equal to 100 mg/dl indicate adequate procoagulant activity for hemostasis in patients without underlying bleeding disorders. International Normalization Ratio 1.4(H) 0.9 - 1.1 CERNER MILLENNIUM Blood specimen (specimen) 11/03/2013 6:15 AM EST 11/03/2013 6:35 AM EST Narrative Resulting Agency Comment Spec In Lab Mayco Mckeon Jr., MD HEMATOLOGY ORDERA BLES CERGRACIELA MELGARIUM * (ABNORMAL) Basic Metabolic Panel (non-fasting) (11/03/2013 6:15 AM EST) Glucose 120 60 - 199 mg/dL CERNER MILLENNIUM Comment:Diabetes: >=200 mg/d L plus symptoms Blood Urea Nitrogen 9 8 - 18 mg/dL CERNER MILLENNIUM Creatinine 0.62(L) 0.70 - 1.20 mg/dL CERNER MILLENNIUM Comment: Please note that the pediatric reference intervals supplied above were not validated at [facility] Results from pediatric patients should be interpreted in conjunction to the patient's age, height and muscle mass. Sodium 142 135 - 145 mmol/L CERNER MILLENNIUM Potassium 3.6 3.5 - 5.0 mmol/L CERNER MILLENNIUM Comment: Please note: ??Patients with WBC >100,000 may have falsely elevated Potassium levels. ??For accurate Potassium quantification in these patients send serum separator tube (gold top) for subsequent determinations. ??Contact the Clinical Chemistry Laboratory if there are any questions. Chloride 103 98 - 107 mmol/L CERNER MILLENNIUM Carbon Dioxide 31 22 - 31 mmol/L CERNER MILLENNIUM Anion Gap 8 5 - 15 mmol/L CERNER MILLENNIUM Calcium 7.7(L) 8.5 - 10.5 mg/dL CERNER MILLENNIUM Est Glomerular Filtration Rate [...] the following links into your internet browser. http://www.nkdep.nih.gov/lab-evaluation.shtml http://www.kidney.org/professionals/ Blood specimen (specimen) 11/03/2013 6:15 AM EST 11/03/2013 6:35 AM EST Narrative Resulting Agency Comment Spec In Lab Mayco Mckeon Jr., MD CHEMISTRY ORDERAB LES Performing Organization Address City/[facility]/ZIP Co de Phone Number CERNER MILLENNIUM * (ABNORMAL) CBC (with Diff) (11/03/2013 6:15 AM EST) White Blood Cell 15.0(H) 4.0 - 10.0 x10(3)/mc L CERNER MILLENNIUM Red Blood Cell 3.96 3.93 - 5.22 x10(6)/mc L CERNER MILLENNIUM Hemoglobin 11.9 11.2 - 15.7 gm/dL CERNER MILLENNIUM Hematocrit 38.3 34.0 - 45.0 % CERNER MILLENNIUM Mean Cell Volume 96.7(H) 79.0 - 94.0 fL CERNER MILLENNIUM Mean Cell Hemoglobin 30.1 26.6 - 32.2 pg CERNER MILLENNIUM Mean Cell Hemoglobin Concentration 31.1(L) 32.0 - 36.5 gm/dL CERNER MILLENNIUM Platelet 333 145 - 370 x10(3)/mc L CERNER MILLENNIUM RDW Standard Deviation 47.7(H) 35.0 - 46.0 fL CERNER MILLENNIUM RDW coefficient of variation 13.6 10.9 - 14.4 % CERNER MILLENNIUM Mean Platelet Volume 10.0 9.0 - 12.0 fL CERNER MILLENNIUM Blood specimen (specimen) 11/03/2013 6:15 AM EST 11/03/2013 6:35 AM EST Narrative Resulting Agency Comment Spec In Lab Mayco Mckeon Jr., MD HEMATOLOGY ORDERA BLES Performing Organization Address City/[facility]/ZIP Co de Phone Number CERGRACIELA CARLISLEENNIUM * Surgical Pathology Report (11/02/2013 9:54 AM EST) Surgical Pathology Report ? [facility] ? Provider: ?? MIKE PÉREZ, MAYCO ??Pt. Name: ?? MARLA DENTON ? Acc #: ?[id number] ?Pt. ? Col Date: ?? 11/02/2013 ?/Sex: ?1955,(58 ? years),Female ? Rec Date: ?? 11/02/2013 ?LOC: ?[id number] ? SURGICAL PATHOLOGY ? ---Pathologic Diagnosis--- ? Left knee bone and tissue, resection: ? Osteoarthritis with focal subchondral necrosis. 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 ? 11/06/13 ? [facility] ? 11/06/13 Verified by: ? Riaz DO, Arpita Warner. ? Pathologist ? (Electronic Signature) ? The attending pathologist whose signature appears on this report has ? reviewed all diagnostic slides and has edited the gross and/or ? microscopic portion of the report in rendering the final pathologic ? diagnosis. ? ---Gross Description--- ? Labeled/Fixative: Left knee bone and tissue, fresh. ? Quantity/Size: Multiple pieces, 8.5 x 7.5 x 4.5 cm in aggregate. ? Tissue Description: Fragments of yellow-white, hard, irregular bone, ? cartilage and soft tissue. ? Articular Surface: uneven, with macerated attached monroe-pink synovial ? tissue. ? Eburnation: Absent. ? Osteophytes: Present. ? Sections/Processi ng: (A1) articular surface; (A2) osteophyte. ??Blocks ? submitted for decalcification: ??[id number].kjp ? ---Clinical Information--- ? Specimen Submitted: ? A - Left knee bone and tissue ? Clinical History: ? Rheumatoid arthritis, and with DJD and meniscal tear, pat fem arthritis ? Clinical Diagnosis: ? Same JAZMIN PETE 11/02/2013 9:54 AM EST Mayco Mckeon Jr., MD PATHOLOGY/CYTOLOG Y ORDERABLES Performing Organization Address [facility] Co de Phone Number JAZMIN PETE * Specimen to Pathology (surgical or derm) (11/02/2013 8:29 AM EST) AP Specimen 11/02/2013 8:29 AM EST 11/02/2013 8:29 AM EST Narrative [facility] 11/02/2013 8:29 AM EST Specimen requisition ordered. ??Separate Pathology report to follow Mayco Mckeon Jr., MD PATHOLOGY/CYTOLOG Y ORDERABLES Performing Organization Address [facility] Co de Phone Number JAZMIN [facility]LES[facility] * (ABNORMAL) Prothrombin Time (11/02/2013 6:07 AM EST) Prothrombin Time 15.1(H) 12.0 - 15.0 sec JAZMIN MAYLINNO Comment: [facility] Transfusion Committee Guidelines: INR less than 2.0, PTT less than OR equal to 43.5 seconds, or Fibrinogen greater than or equal to 100 mg/dl indicate adequate procoagulant activity for hemostasis in patients without underlying bleeding disorders. International Normalization Ratio 1.2(H) 0.9 - 1.1 JAZMIN MAYLINNO Blood specimen (specimen) 11/02/2013 6:07 AM EST 11/02/2013 6:12 AM EST Narrative Resulting Agency Comment Spec In Lab Mayco Mckeon Jr., MD HEMATOLOGY ORDERDenny ANDREW JAZMIN PETE documented in this encounter Visit Diagnoses Diagnosis Left TKA 11/02- Primary Knee joint replacement by other means DJD (degenerative joint disease) of knee Osteoarthrosis, unspecified whether generalized or localized, lower leg Neuropathy Mononeuritis of unspecified site Rheumatoid arthritis(714.0) Rheumatoid arthritis Lateral epicondylitis of elbow Lateral epicondylitis of elbow Total knee replacement status, left Chronic pain Other chronic pain DJD (degenerative joint disease) of knee Osteoarthrosis, unspecified whether generalized or localized, lower leg documented in this encounter Active and Recently Administered Medications Times are shown in EST. Scheduled Medication Order 11/03/2013 11/04/2013 11/05/2013 acetaminophen (TYLENOL) tablet 1,000 mg 1,000 mg, Oral, EVERY 8 HOURS SCHEDULED, First dose on Sat11/02/13 at 1400, Until Discontinued, Maximum dose of acetaminophen is 4000 mg from all sources in 24 hours., Routine 0600 (Given - Provider: Dale Ventura RN)1400 (Given - Provider: Brittni Vargas RN)2217 (Given - Provider: Jana Damon RN) 0555 (Given - Provider: Jana Damon RN)1400 (Given - Provider: Brittni Vargas RN)2230 (Given - Provider: Jana Damon RN) 0544 (Given - Provider: Jana Damon RN)1507 (Given - Provider: Cordelia Desir RN) calcium carbonate tablet 650 mg (CANCELED) 650 mg, Oral, 3 TIMES DAILY WITH MEALS, First dose on Sat11/02/13 at 1900, Until Discontinued 0728 (Given - Provider: Dale Ventura RN)1200 (Given - Provider: Brittni Vargas RN)1700 (Given - Provider: Brittni Vargas RN) 0800 (Given - Provider: Brittni Vargas RN)1200 (Given - Provider: Brittni Vargas RN)1700 (Given - Provider: Brittni Vargas RN) 0843 (Given - Provider: Cordelia Desir RN)1144 (Given - Provider: Cordelia Desir RN)1700 (Due) ceFAZolin (ANCEF) 1g in dextrose 5% 50mL (COMPLETED) 1,000 mg (1 g), Intravenous, EVERY 8 HOURS, 3 doses, First dose on Sat11/02/13 at 1115, Last dose on Sat11/03/13 at 0315, Administer over 30 Minutes, For 3 doses postoperatively. Adjust to 8 hours from intraoperative dose., Indication for (Active or Suspected): Prophylaxis 0000 (New Bag - Provider: Dale Ventura RN)0727 (New Bag - Provider: Dale Ventura RN) doxepin (SINEQUAN) capsule 50 mg (CANCELED) 50 mg, Oral, NIGHTLY, First dose on Sat11/02/13 at 2100, Until Discontinued, Routine 2025 (Given - Provider: Jana Damon RN) 2019 (Given - Provider: Jana Damon RN) enoxaparin (LOVENOX) injection 80 mg 80 mg, Subcutaneous, EVERY 12 HOURS, First dose on Sat11/03/13 at 0000, Until Discontinued, Routine 0000 (Given - Provider: Dale Ventura RN)1200 (Given - Provider: Britnti Vargas RN) 0017 (Given - Provider: Jana Damon RN)1200 (Given - Provider: Brittni Vargas RN) 0100 (Given - Provider: Jana Damon RN)1228 (Given - Provider: Cordelia Desir RN) famotidine (PEPCID) tablet 20 mg (CANCELED) 20 mg, Oral, 2 TIMES DAILY, First dose on Sat11/02/13 at 2100, Until Discontinued, Routine 0900 (Given - Provider: Brittni Vargas RN)2025 (Given - Provider: Jana Damon RN) 0900 (Given - Provider: Brittni Vargas RN)2020 (Given - Provider: Jana Damon RN) 0843 (Given - Provider: Cordelia Desir RN) gabapentin (NEURONTIN) capsule 600 mg (CANCELED) 600 mg, Oral, 3 TIMES DAILY, First dose on Sat11/02/13 at 1145, Until Discontinued, Routine 0900 (Given - Provider: Brittni Vargas RN) gabapentin (NEURONTIN) capsule 600 mg 600 mg, Oral, 2 TIMES DAILY, First dose (after last modification) on Sat11/03/13 at 1400, Until Discontinued, Routine 1400 (Given - Provider: Brittni Vargas RN) 0900 (Given - Provider: Brittni Vargas RN)1400 (Given - Provider: Brittni Vargas RN) 0843 (Given - Provider: Cordelia Desir RN)1507 (Given - Provider: Cordelia Desir RN) gabapentin (NEURONTIN) capsule 900 mg 900 mg, Oral, NIGHTLY, First dose on Sat11/03/13 at 2100, Until Discontinued, Routine 2025 (Given - Provider: Jana Damon RN) 2020 (Given - Provider: Jana Damon RN) levothyroxine (SYNTHROID) tablet 125 mcg (CANCELED) 125 mcg, Oral, EVERY MORNING, First dose on Sat11/03/13 at 0600, Until Discontinued, Routine 0600 (Given - Provider: Dale Ventura RN) 0555 (Given - Provider: Jana Damon RN) 0644 (Given - Provider: Jana Damon RN) methadone (DOLOPHINE) tablet 25 mg (CANCELED) 25 mg, Oral, 4 TIMES DAILY, First dose (after last modification) on Sat11/02/13 at 2100, Until Discontinued, Routine 0900 (Given - Provider: Brittni Vargas RN) methadone (DOLOPHINE) tablet 25 mg 25 mg, Oral, EVERY 6 HOURS, First dose (after last modification) on Sat11/04/13 at 0000, Until Discontinued, Routine 0017 (Given - Provider: Jana Damon RN)0555 (Given - Provider: Jana Damon RN)1200 (Given - Provider: Brittni Vargas RN)1800 (Given - Provider: Brittni Vargas RN) 0100 (Given - Provider: Jana Damon RN)0644 (Given - Provider: Jana Damon RN)1228 (Given - Provider: Cordelia Desir RN) methadone (DOLOPHINE) tablet 25 mg (COMPLETED) 25 mg, Oral, 2 TIMES DAILY, 2 doses, First dose on Sat11/03/13 at 1400, Last dose on Sat11/03/13 at 1900, Routine 1400 (Given - Provider: Brittni Vargas RN)1900 (Given - Provider: Brittni Vargas RN) polyethylene glycol (MIRALAX) packet 17 g 17 g, Oral, 2 TIMES DAILY, First dose on Sat11/02/13 at 2100, Until Discontinued, Administer if needed per patient's routine or if no bowel movement within 48 hours, Routine 0900 (Given - Provider: Brittni Vargas RN)2025 (Given - Provider: Jana Damon RN) 0900 (Given - Provider: Brittni Vargas RN)2019 (Given - Provider: Jana Damon RN) 0843 (Given - Provider: Cordelia Desir RN) predniSONE (DELTASONE) tablet 10 mg (CANCELED) 10 mg, Oral, DAILY, First dose on Sat11/02/13 at 1145, Until Discontinued, STAT 0900 (Given - Provider: Brittni Vargas RN) 0900 (Given - Provider: Brittni Vargas RN) 0843 (Given - Provider: Cordelia Desir RN) senna-docusate (PERICOLACE) 8.6-50 mg per tablet 1-4 tablet 1-4 tablet, Oral, 2 TIMES DAILY, First dose on Sat11/02/13 at 2100, Until Discontinued, Start with 1 tablet or liquid equivalent orally twice daily and titrate up to achieve: 1. One bowel movement at least every 48 hours, AND 2. Without straining, Routine 0900 (Given - Provider: Brittni Vargas RN)2025 (Given - Provider: Jana Damon RN) 0900 (Given - Provider: Brittni Vargas RN)2019 (Given - Provider: Jana Damon RN) 0843 (Given - Provider: Cordelia Desir RN) sodium chloride 0.9 % flush 5 mL (CANCELED) 5 mL, Intravenous, EVERY 12 HOURS, First dose on Sat11/02/13 at 1900, Until Discontinued 0700 (Given - Provider: Dale Ventura, [place])1900 (Given - Provider: Brittni Vargas RN) 0700 (Given - Provider: Jana Damon, [place])1900 (Given - Provider: Brittni Vargas RN) 0644 (Given - Provider: Jana Damon RN) warfarin (COUMADIN) tablet 2.5 mg (COMPLETED) 2.5 mg, Oral, ONCE, 1 dose, On Sat11/04/13 at 2130, STAT 2230 (Given - Provider: Jana Damon RN) warfarin (COUMADIN) tablet 5 mg (COMPLETED) 5 mg, Oral, ONCE, 1 dose, On Sat11/03/13 at 1700, Routine 1700 (Given - Provider: Brittni Vargas RN) warfarin (COUMADIN) tablet 5 mg (COMPLETED) 5 mg, Oral, ONCE, 1 dose, On Sat11/04/13 at 1900, Routine 1900 (Given - Provider: Brittni Vargas RN) warfarin (COUMADIN) tablet 7.5 mg 7.5 mg, Oral, ONCE, 1 dose, On Sat11/05/13 at 1700, Routine 1700 (Due) Continuous Medication Order 11/03/2013 11/04/2013 11/05/2013 HYDROmorphone (DILAUDID) 1 mg/mL MOBILITY SPECIALIST 30 mL (CANCELED) Intravenous, MOBILITY SPECIALIST ONLY, Starting on Sat11/02/13 at 1730, Until Sat11/04/13 at 1916 1130 (New Syringe/Cartridge - Provider: Brittni Vargas RN)2023 (Rate/Dose Verify - Provider: Jana Damon RN) PRN Medication Order 11/03/2013 11/04/2013 11/05/2013 bisacodyl (DULCOLAX) EC tablet 10 mg (CANCELED) 10 mg, Oral, 2 TIMES DAILY PRN, Starting on Sat11/03/13 at 1012, Until Sat11/05/13 at 1914, Constipation, Administer if needed per patient's routine or if no bowel movement within 48 hours, Routine 1338 (Given - Provider: Brittni Vargas RN) diaZEPam (VALIUM) tablet 5 mg (CANCELED) 5 mg, Oral, EVERY 6 HOURS PRN, Starting on Sat11/03/13 at 1226, Until Sat11/04/13 at 1916, Anxiety, spasms, Routine 1901 (Given - Provider: Brittni Vargas RN) diaZEPam (VALIUM) tablet 5 mg 5 mg, Oral, EVERY 8 HOURS PRN, Starting on Sat11/04/13 at 1930, Until Sat11/05/13 at 1914, Anxiety, spasms, Routine 1227 (Given - Provider: Cordelia Desir RN) diphenhydrAMINE (BENADRYL) capsule 25 mg 25 mg, Oral, EVERY 6 HOURS PRN, Starting on Sat11/04/13 at 1130, Until Sat11/05/13 at 1914, Itching, Routine 1253 (Given - Provider: Brittni Vargas RN)1827 (Given - Provider: Brittni Vargas RN) diphenhydrAMINE (BENADRYL) injection 25 mg (CANCELED) 25 mg, Intravenous, EVERY 30 MIN PRN, 2 doses, Starting on Sat11/02/13 at 1116, Until Sat11/03/13 at 0042, Itching, May repeat dose in 30 minutes if pruritis not relieved., Routine 0042 (Given - Provider: Dale Ventura RN) HYDROmorphone (DILAUDID) tablet 12 mg (CANCELED)(Linked Group 1) 12 mg, Oral, EVERY 3 HOURS PRN, Starting on Sat11/03/13 at 0949, Until Sat11/05/13 at 1914, Pain, For Severe pain. If pain not relieved, call provider., Routine 0935 (Given - Provider: Brittni Vargas RN)1241 (Given - Provider: Brittni Vargas RN)1633 (Given - Provider: Brittni Vargas RN)2026 (Given - Provider: Jana Damon RN) 0640 (Given - Provider: Jana Damon RN)0930 (Given - Provider: Brittni Vargas RN)1252 (Given - Provider: Brittni Vargas RN)1557 (Given - Provider: Brittni Vargas RN)2021 (Given - Provider: Jana Damon RN) 0233 (Given - Provider: Jana Damon RN)0544 (Given - Provider: Jana Damon RN)0844 (Given - Provider: Cordelia Desir RN)1144 (Given - Provider: Cordelia Desir RN)1525 (Given - Provider: Cordelia Desir RN) HYDROmorphone (DILAUDID) tablet 4 mg(Linked Group 1) 4 mg, Oral, EVERY 3 HOURS PRN, Starting on Sat11/03/13 at 0949, Until Sat11/05/13 at 1914, Pain, For Mild pain. If pain not relieved, call provider., Routine 0935 (See Alternative - Provider: Brittni Vargas RN)1241 (See Alternative - Provider: Brittni Vargas RN)1633 (See Alternative - Provider: Brittni Vargas RN)2025 (See Alternative - Provider: Jana Damon RN) 0640 (See Alternative - Provider: Jana Damon RN)0930 (See Alternative - Provider: Brittni Vargas RN)1252 (See Alternative - Provider: Brittni Vargas RN)1557 (See Alternative - Provider: Brittni Vargas RN)2021 (See Alternative - Provider: Jana Damon RN) 0233 (See Alternative - Provider: Jana Damon RN)0544 (See Alternative - Provider: Jana Damon RN)0844 (See Alternative - Provider: Cordelia Desir RN)1144 (See Alternative - Provider: Cordelia Desir RN)1525 (See Alternative - Provider: Cordelia Desir RN) HYDROmorphone (DILAUDID) tablet 6 mg (CANCELED) 6 mg, Oral, EVERY 3 HOURS PRN, Starting on Sat11/02/13 at 2230, Until Sat11/03/13 at 0951, Pain, For Severe pain. Do not exceed 6 mg in 4 hours. If pain not relieved, call provider., Routine 0157 (Given - Provider: Dale Ventura, [place])0529 (Given - Provider: Dale Ventura RN) prochlorperazine (COMPAZINE) injection 5 mg (CANCELED) 5 mg, Intravenous, EVERY 30 MIN PRN, 2 doses, Starting on Sat11/02/13 at 1832, Until Sat11/04/13 at 1916, Nausea, May repeat in 30 minutes if no relief from previous dose. HOLD if patient is sedated. Maximum dose is 40 mg in 24 hours., Routine 1032 (Given - Provider: Chantale Merritt RN) Linked Groups Order Group 1: HYDROmorphone (DILAUDID) tablet 4 mgJump to med 4 mg, Oral, EVERY 3 HOURS PRN, Starting on Sat11/03/13 at 0949, Until Cherry 11/05/13 at 1914, Pain, For Mild pain. If pain not relieved, call provider., Routine Or HYDROmorphone (DILAUDID) tablet 8 mg (CANCELED) 8 mg, Oral, EVERY 3 HOURS PRN, Starting on Sat11/03/13 at 0949, Until Cherry 11/05/13 at 1914, Pain, For Moderate pain. If pain not relieved, call provider., Routine Or HYDROmorphone (DILAUDID) tablet 12 mg (CANCELED)Jump to med 12 mg, Oral, EVERY 3 HOURS PRN, Starting on Sat11/03/13 at 0949, Until Cherry 11/05/13 at 1914, Pain, For Severe pain. If pain not relieved, call provider., Routine documented in this encounter Care Teams Member Of Technical Staff Relationship Specialty Start Date End Date Junior Michelle MD [address] [address] PCP - General 10/10/10 documented as of this encounter
--- OUTSIDE RECORDS SUMMARY | 2024-10-30 01:37 | XMS_ITS | Encounter Summary ---
Author Organization Formerly [facility] Address [facility] [address] Care Team Providers Care Computer Architect Name Role Phone Curt Michelle MD Primary Care Provider Reason for Referral * Consultation (Routine) - Closed by system - Referral Specialty Diagnoses / Procedures Referred By Contac t Referred To Contact Orthopaedic Surgery Diagnoses Total knee replacement status, left Paige Nickerson, DATABASES COMPUTER CONSULTANT [facility] [place] [address] Referral ID Status Reason Start Date Expiration Date Visits Requested Visits Authorized [id number] Closed by system - Referral Assume Subset of Care 3 05/04/2014 1 1 Encounter Details Date Type Department Care Team (Latest Contact Info) Description 11/02/2013 5:47 AM EST - 11/05/2013 5:09 PM EST Hospital Encounter 3 [place] [address] Surendra Mckeon Jr., MD [facility] [place] [address] DJD (degenerative joint disease) of knee; Neuropathy; Rheumatoid arthritis; Lateral epicondylitis of elbow; Total knee replacement status, left Discharge Disposition: Rehabilitation Center Stand Alone Social History Tobacco Use Types Packs/Day Years [...] Sign Reading Time Taken Comments Blood Pressure 159/90 11/02/2013 3:00 PM EST Pulse 96 11/02/2013 3:00 PM EST Temperature 36.5 ??C (97.7 ??F) 11/02/2013 3:00 PM ES T Respiratory Rate 16 11/02/2013 3:00 PM EST Oxygen Saturation 92% 11/02/2013 3:00 PM EST Inhaled Oxygen Concentration - - Weight 74.8 kg (165 lb) 11/02/2013 6:26 AM EST Height 149.9 cm (4' 11) 11/02/2013 6:26 AM EST Body Mass Index 33.33 11/02/2013 8:32 PM EST documented in this encounter Discharge Instructions * Discharge Instructions* Paige Nickerson, YU - 11/05/2013 4:39 PM EST Activity: 1. [...] The INR should be reported to the [facility] Ortho clinic at [phone], and you will be informed of any [...] sennakot, to factilitate a bowel movement. An icwm-rnk-yigunur medication, miralax can also beused if needed [...] 1. You will have followup appointments at [facility] as indicated in Future Appointments and Orders. [...] 11/05/2013 ergocalciferol (VITAMIN D) 50,000 unit capsule [id number] unit, PO, once a month 10/23/2010 VIT D3-FOLIC [id number] ORAL 10/08/2013 12/07/19 14 RISEDRONATE SODIUM (ACTONEL [...] as of this encounter Progress Notes * Cordeila Desir RN - 11/05/2013 6:00 PM EST [...] 58 y.o. female admitted on 11/02/2013 by Surendra Barakat Jr., MD for L TKA. Pt had R TKA in 01/19 and went to [facility] for rehab. Pt with h/o RA. R [...] arthroplasty 11/02/2013 @TOTAL KNEE ARTHROPLASTY performed by Surendra Mckeon Jr., MD at [facility] MAIN OR Social History: Patient lives alone, no stairs to enter. 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 Patient would benefit and [...] minutes Total timed treatment: 25 minutes ROBERTA DAHL, MENTAL HEALTH PROGRAM MANAGER Pager: [phone] * Earnest Urrutia MD - 11/05/2013 10:12 AM EST [...] past 24 hours even with discontinuation of CUSTOMER PRICING MANAGER and initiation of PT/OT. - has 7-8/10 [...] Q8 PRN. (no doses past 24 hours) CUSTOMER PRICING MANAGER Dilaudid 0.6 mg Q5 mins with 15 [...] anticipated) increase in pain with discontinuation of CUSTOMER PRICING MANAGER and start of PT yesterday however in [...] and continuous pulse ox monitoring while inpatient. Emili Uribe MD Pager [phone] EMILI URIBE MD I have seen and examined the patient. I have reviewed Dr. Uribe's note and agree with the findings, assessment and plan. EARNEST URRUTIA MD * Cheryle Wood OTA - 11/05/2013 10:08 AM EST Occupational Therapy Treatment Note Visit #: 2 Patient Dx: Marla Denton is a 58 y.o. female patient of Surendra Barakat Jr., MD, admitted on 11/02/2013 s/p [...] for TE-F x F x 3 Pager: [phone] DORI BARBOSA Occupational Therapy Rehabilitation Department * Cordelia Sue - 11/05/2013 10:06 AM EST Office of Care Management/Information Specialist Patient Name: Marla Denton : 1955 Patient has been offered a swing bed at [facility] arranged for a 16:30 transport. 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 Info to accompany patient: Narcotic Prescriptions Copies of Medication Administration Records and IV sheets for past 10 days. Plan: Information Specialist will be available to the patient and CRC for further assistance. Patient will be discharged to: [place] [address] CORDELIA CUELLAR, Information Specialist * IrinajudithZan - 11/05/2013 5:42 AM EST Orthopaedic Surgery [...] AM Rafael Sidhu MD [facility] * Roberta Dahl, [facility] - 11/04/2013 12:44 PM EST Physical Therapy Note Total Knee Arthroplasty Treatment # 2 Patient Profile: Pt. is a 58 y.o. female admitted on 11/02/2013 by Surendra Barakat Jr., MD for L TKA. Pt had R TKA in 01/19 and went to [facility] for rehab. Pt with h/o RA. R [...] arthroplasty 11/02/2013 @TOTAL KNEE ARTHROPLASTY performed by Surendra Mckeon Jr., MD at [facility] MAIN OR Social History: Patient lives alone, no stairs to enter. 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 Patient would benefit and [...] minutes Total timed treatment: 15 minutes ROBERTA DAHL, MENTAL HEALTH PROGRAM MANAGER Pager: [phone] * Earnest Urrutia MD - 11/04/2013 10:15 AM EST [...] 60 mgs) Lorazepam 0.5 mgs Q5 PRN. CUSTOMER PRICING MANAGER Dilaudid 0.6 mg Q5 mins with 15 [...] she may be able to wean off CUSTOMER PRICING MANAGER if she maximizes her PRN PO dilaudid dosing (received just 5 of her possible 8 x 12 mg doses yesterday). We educated her on rounds as to the importance of maintaining a consistent PRN dilaudid schedule so as to not fall behind. Recommendations: Continue scheduled tylenol 1000 mgs Q8 hours. Continue Methadone 25 mgs Q6 hours. Consider discontinuing Dilaudid CUSTOMER PRICING MANAGER - have encouraged patient to maximize PRN dosing of her PO dilaudid (received just 5 of her possible 8 doses over the past 24 hours). Continue PRN PO Dilaudid dosing of 4-12 mgs Q3 hours. Continue Neurontin 600/600/900. Consider initiating toradol unless otherwise contraindicated. Aggressive bowel regimen and continuous pulse ox monitoring. Emili Uribe MD Pager [phone] EMILI URIBE MD I have seen and examined the patient. I have reviewed Dr. Uribe's note and agree with the findings, assessment and plan. EARNEST URRUTIA MD * Marysol Choudhury, DATABASES COMPUTER CONSULTANT - 11/04/2013 5:41 AM EST After 1 [...] distributions Motor intact to ADF/APF/EHL Dressing c/d/i ZENIA bandage removed Laboratory Recent Labs Basename 11/03/13 [...] Date of Encounter: 11/03/2013 Responsible Attending: Wes Rankin [place] Staff / Associate Provider: Bertha Maya MD [...] was instructed to contact Regional Anesthesia Team ([phone]) for any unresolved sensory or motor deficits. Please contact Regional Anesthesia Team with any questions or concerns Bertha Maya MD Regional Team pager [phone] * Damir Norton RN - 11/03/2013 11:38 AM EST S: I had more pain this time then I did with my last one. O: Chart reviewed and met with pt before she started PT with Katharina this am. Pt had L TKA yesterday byDr Mckeon. Pt had R TKA in 01/19 and went to [facility] for rehab. Pt was living in [place] at the time and has moved to an apt in [facility]. 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 Pt requests referrals be made to [facility] and [facility]. I will ask the SNF RS to make referral. Pt has [place] [facility] for insurance. Pt should be ready tomorrow or Th pending medical status and bed availabilty. Pt will need a [facility] for transport. A Progressing toward d/c to [...] poorly controlled pain she has had dilaudid CUSTOMER PRICING MANAGER dosing adjusted (0.2/7/4 --> 0.6/15) and methodone increased (20-->25 mgs TID) with [...] 12 mgs) Lorazepam 0.5 mgs Q5 PRN. CUSTOMER PRICING MANAGER Dilaudid 0.6 mg Q5 mins with 15 [...] difficult to manage pain would recommend keeping CUSTOMER PRICING MANAGER until her pain is more consistently managed with goal of weaning IV opioids tomorrow. Recommendations: Continue scheduled tylenol 1000 mgs Q8 hours Continue Methadone 25 mgs. Consider changing dosing from QID --> Q6 hours for more consistent dosing intervals. Continue Dilaudid CUSTOMER PRICING MANAGER as currently ordered (0.6 mgs Q5 mins [...] monitoring. Pain Team will continue to follow. Emili Uribe MD Pager [phone] I have seen and examined the patient. [...] ??C (98.2 ??F)] Heart Rate: [71-96] Resp: [12-16] BP: (123-162)/(65-101) SpO2: [92 %-100 %] I/O [...] AM Rafael Sidhu MD LEB R[facility] * Fabiola Durham RN - 11/02/2013 6:46 PM EST Patient [...] or tingling. Patient oriented to room, call alexandria IS. RN will monitor patient. * Kieran Petty RN - 11/02/2013 12:42 PM EST 1200 Pt using CUSTOMER PRICING MANAGER for pain control. Once her family left, [...] mg of Dilaudid. Pt is using Her CUSTOMER PRICING MANAGER as well. He will write for an increase in her pain medication. 1410 Dr Berg at bedside and giving pt IV Dilaudid. 1530 Family back in to visit at pt's request. Pt states pain is now 8/10 and better. Pt no longer crying. Pt is continuing to use her CUSTOMER PRICING MANAGER. * Castro Ding - 11/02/2013 11:43 AM EST Orthopaedic Surgery Post-Op [...] documented in this encounter H&P Notes * Surendra Mckeon Jr., MD - 11/02/2013 6:42 AM EST No change since H&P. Will not pursue prevention of bleeding in the face of clotting issues balanced againist her unwillingness to accept blood. She will allow constavac blood to be reapplied. Skin clear and L knee marked. Will block. Reviewed risks again. * Zan Schwartz - 11/02/2013 6:42 AM EST The patient's history [...] 11/06/2013 1:16 PM ESTAssociated Order(s): SCAN DOC: SERVICE DELIVERY MANAGEMENT CONSULTANT * Provider, Scanning - 11/06/2013 1:16 PM [...] EST * Discharge Summary - Paige Nickerson, DATABASES COMPUTER CONSULTANT - 11/05/2013 4:39 PM EST Department of Orthopedic Medicine - Discharge Summary Patient Name: Marla Denton Patient Age: 58 y.o. Birthdate: 1955 Admit date: 11/02/2013 Discharge date: 11/05/2013 Attending Physician: Surendra Mckeon Jr., MD Discharge Diagnoses (Hospital Problems) [...] Operations/Major Procedures: 11/02/2013 Surgeon(s) and Role: * Surendra Mckeon Jr., MD - Primary * Zan [...] BP BP (Arterial Line): -- Discharge to: [place] [address] Discharge Medications: Current Discharge Medication List New [...] daily ergocalciferol (VITAMIN D) 50,000 unit capsule [id number] unit, PO, once a month Medications STOPPED [...] a copy of the coumadin/INR record to [facility] - [phone]. 1. Anticoagulation: LOVENOX BRIDGE TILL INR GREATER [...] fiber while on narcotic pain meds. 4. Ana/sutures: Staple/suture removal 11-14 days after surgery (approximately [...] The INR should be reported to the [facility] Ortho clinic at [phone], and you will be informed of any [...] sennakot, to factilitate a bowel movement. An icuv-iam-cnjsxsn medication, miralax can also beused if needed [...] 1. You will have followup appointments at [facility] as indicated in Future Appointments and Orders. You will have an xray prior to those appointments so please come to Radiology, desk 3T, 1 hour BEFORE your appointment for those x-rays. Future Appointments and Orders Future Appointments: Provider: Department: Dept Phone: Center: 12/07/2013 12:40 PM [facility] [phone] None Joint Appt Health Question [facility] [phone] None 01/18/2014 11:45 AM Rafael Sidhu MD Rheumatology [phone] [facility] Joint Appt Rheumatology Nurse Res LEB 5C [phone] [facility] Future Orders Please Complete By Expires Referral for Anticoagulation Monitoring [[id number] Custom] Process Instructions: If no progress note charted, please enter Clinical details in comments. Scheduling Instructions: Comments: Questions: Responses: Responsible Group [facility] ANTICO Reason for referral s/p Left TKA 11/04/2013 Risk Factors: Hx PE, on Coumadin prior to surgery. To receive therapeutic Lovenox (80 mg every 12 hours) until INR is 1.9 or above. Next due INR 11/06/2013 INR Goal 2.5-3.5 Target End Date 11/29/2013 Primary Care Provider: CURT MICHELLE MD [phone] Dr. Mckeon: Joints: [phone] After Hours: Call [phone] and request to speak with the Orthopaedic Residents water reclamation systems operator. Electronically Signed by: PAIGE NICKERSON APRN 11/05/2013 [...] continue to monitor. * Initial Assessments - Lynne Feliciano, OT - 11/04/2013 1:41 PM EST Occupational Therapy Evaluation Patient profile: Marla Denton is a 58 y.o. female patient of Surendra Barakat Jr., MD, admitted on 11/02/2013 s/p [...] arthroplasty 11/02/2013 @TOTAL KNEE ARTHROPLASTY performed by Surendra Mckeon Jr., MD at [facility] MA[facility] OR Social History: Patient lives with [...] minutes Total timed interventions: 0 minutes Pager: [phone] LYNNE FELICIANO OT 11/04/2013 Occupational Therapy Rehabilitation Department * Plan of Luca - Jana Damon RN - 11/04/2013 5:32 [...] 58 y.o. female admitted on 11/02/2013 by Surendra Barakat Jr., MD for L TKA. Pt had R TKA in 01/19 and went to [facility] for rehab. Pt with h/o RA. R [...] arthroplasty 11/02/2013 @TOTAL KNEE ARTHROPLASTY performed by Surendra Mckeon Jr., MD at [facility] MA[facility] OR Social History: Patient lives alone, no stairs to enter. 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 APS following Subjective: Patient states ???The pain is still 07/28. It was 08/27 earlier. I'll try (PT)?? Objective: Vitals: SpO2: WNL, HR WNL Most recent Hgb value: 11.9 Pain: 07/28 at rest, increased with knee flexion Strength: [...] CG assist Discharge Recommendations: Patient will require 24/7 supervision and assistance. Patient would benefit and [...] treatment: 0 minutes michel OCHOA, PT Pager: [phone] * Plan of Care - Dale Ventura [...] hours sp multiple boluses of hydromorphone and CUSTOMER PRICING MANAGER dosing with same. She is sleeping comfortably [...] chloride 0.9% 1,000 mL (11/02/13 1100) ??? CUSTOMER PRICING MANAGER estrada ??? HYDROmorphone ??? [DISCONTINUED] HYDROmorphone PRN [...] boluses of MD/nurse administered hydromorphone and starting CUSTOMER PRICING MANAGER her pain has been better managed and she is currently sleeping comfortably. This afternoon she has proven that she can tolerate large doses of opioid analgesia without respiratory depression. Thus it would make sense to increase her hydromorphone CUSTOMER PRICING MANAGER settings as large boluses of hydromorphone eventually was able to manage her pain. She may also benefit from increasing her morphine dosing as well. Recommendation: Continue Gabapentin 600 mg TID. Continue Lorazepam 0.5 mgs Q5 PRN. Continue acetaminophen 1000 mg Q8 hours scheduled. Increase Dilaudid CUSTOMER PRICING MANAGER settings from 0.2 mgs Q7 mins with 4 mg/4 hour lockout --> 0.6 mg Q5 mins with 15 mg/4 hour lockout. Increase methadone dosing from 20 mgs QID --> 25 mgs QID. Consult service will continue to follow patient. Recommendations are above, please page if further consultation required. EMILI URIBE MD 11/02/2013 beeper # [phone] I have seen the patient and reviewed [...] Operative Note Patient Name: Marla Denton : [id number] MR#: [id number] Case Date: 11/02/2013 Surgeon: Surgeon(s) and Role: * Surendra Mckeon Jr., MD - Primary * Zan [...] Implant Name Type Inv. Item Serial No. Toucher Up Lot No. LRB No. Used Action TRAY,TIB,SGM,MOD,CMNT,SZ2 ([id number]) (AUTOREQ) - [id number] IMPLANTS TRAY,TIB,SGM,MOD,CMNT,SZ2 ([id number]) (AUTOREQ) Depuy Skip Hoist Operator - [id number] Left 1 Implanted COMPO,SGM,FEM,PS,CMNT,LT,SZ2 ([id number]) (AUTOREQ) - [id number] IMPLANTS COMPO,SGM,FEM,PS,CMNT,LT,SZ2 ([id number]) (AUTOREQ) Depuy Skip Hoist Operator - 3527 [id number] Left 1 Implanted KOCH,PFC,SGM,RND,SM,35MM ([id number]) (AUTOREQ) - [id number] IMPLANTS KOCH,PFC,SGM,RND,SM,35MM ([id number]) (AUTOREQ) Depuy Skip Hoist Operator - 3527 [id number] Left 1 Implanted INSER,SGM,STAB,CRSLNK,2X8MM ([id number]) (AUTOREQ) - [id number] IMPLANTS INSER,SGM,STAB,CRSLNK,2X8MM ([id number]) (AUTOREQ) Depuy Skip Hoist Operator - 3527 [id number] Left 1 Implanted CEMENT,BNE,CMW 1,GNTA,40GM ([id number]) - [id number] IMPLANTS CEMENT,BNE,CMW 1,GNTA,40GM ([id number]) Depuy Skip Hoist Operator - 3527 [id number] Left 1 Implanted Disposition: awakened from anesthesia, [...] A time out was performed under standard [facility] protocol. A midline incision using a 10 [...] the top hat and step drill followedby francois duenas. The entire knee was then copiously irrigated [...] consisting of silver mepilex was placed. A dos-rk-lrcec Zenia bandage was applied. A Cryo/Cuff and Venodyne were applied. * Brief Op Note - Surendra Mckeon Jr., MD - 11/02/2013 10:07 AM EST Brief Operative Note Patient Name: Marla Denton : [id number] MR#: [id number] Case Date: 11/02/2013 Surgeon: Surgeon(s) and Role: * Surendra Mckeon Jr., MD - Primary * Zan [...] Implant Name Type Inv. Item Serial No. Toucher Up Lot No. LRB No. Used Action TRAY,TIB,SGM,MOD,CMNT,SZ2 ([id number]) (AUTOREQ) - [id number] IMPLANTS TRAY,TIB,SGM,MOD,CMNT,SZ2 ([id number]) (AUTOREQ) Depuy Skip Hoist Operator - 3527 [id number] Left 1 Implanted COMPO,SGM,FEM,PS,CMNT,LT,SZ2 ([id number]) (AUTOREQ) - [id number] IMPLANTS COMPO,SGM,FEM,PS,CMNT,LT,SZ2 ([id number]) (AUTOREQ) Depuy Skip Hoist Operator - 3527 [id number] Left 1 Implanted KOCH,PFC,SGM,RND,SM,35MM ([id number]) (AUTOREQ) - [id number] IMPLANTS KOCH,PFC,SGM,RND,SM,35MM ([id number]) (AUTOREQ) Depuy Skip Hoist Operator - 3527 [id number] Left 1 Implanted INSER,SGM,STAB,CRSLNK,2X8MM ([id number]) (AUTOREQ) - [id number] IMPLANTS INSER,SGM,STAB,CRSLNK,2X8MM ([id number]) (AUTOREQ) Depuy Skip Hoist Operator - 3527 [id number] Left 1 Implanted CEMENT,BNE,CMW 1,GNTA,40GM ([id number]) - [id number] IMPLANTS CEMENT,BNE,CMW 1,GNTA,40GM ([id number]) Depuy Skip Hoist Operator - 3527 [id number] Left 1 Implanted Disposition: awakened from anesthesia, extubated and taken to the recovery room in a stable condition, having suffered no apparent untoward event. Condition: doing well without problems Coumadin tonight and lovenox tomorrow and until INR 1.9. Weightbearing as tolerated. Shoulders withsome arthritis * OR Attestation - Surendra Mckeon Jr., MD - 11/02/2013 10:05 AM EST Attestation: Case Date: 11/02/2013 I was present and I participated during the entire procedure (does not need to include opening and closing). SURENDRA MCKEON JR, MD 11/02/2013 documented in this encounter Plan of Treatment Scheduled Referrals Name Type Priority Associated Diagnoses Order Schedule Referral for Anticoagulation Monitoring Outpatient Referral Routine Total knee replacement status, left Ordered: 11/05/2013 documented as of this encounter Procedures Procedure Name Priority Date/Time Associated Diagnosis Comments LAB SCAN 11/06/2013 1:16 PM EST IMPLANTABLE DEVICES SCAN 11/06/2013 1:16 PM EST SERVICE DELIVERY MANAGEMENT CONSULTANT SCAN 11/06/2013 1:16 PM EST BMP W/FASTING [...] SCAN EXT O RDR/RSLT * SCAN DOC: SERVICE DELIVERY MANAGEMENT CONSULTANT (11/06/2013 1:16 PM EST) Anatomical Region Laterality [...] Gran % 0.90(H) 0.00 - 0.66 % CERNER MILLENNIUM Comment: Immature granulocytes(IG's)percentage and absolute count will include metamyelocytes, myelocytes, and promyelocytes. Blood smears from CBCs yielding IG's will be scanned manually for concordance. If this scan disagrees with the automated IG or if promyelocytes are noted, a manual differential will be performed. Immature Gran Absolute 0.16(H) 0.00 - 0.05 x10(3)/mc L CERNER MILLENNIUM Blood specimen (specimen) 11/05/2013 8:32 AM EST 11/05/2013 8:37 AM EST Surendra Mckeon Jr., MD HEMATOLOGY ORDERA BLES JAZMIN PETE * (ABNORMAL) Prothrombin Time (11/05/2013 8:32 AM EST) Prothrombin Time 18.5(H) 12.0 - 15.0 sec CERNER MILLENNIUM Comment: [facility] Transfusion Committee Guidelines: INR less than 2.0, PTT less than OR equal to 43.5 seconds, or Fibrinogen greater than or equal to 100 mg/dl indicate adequate procoagulant activity for hemostasis in patients without underlying bleeding disorders. International Normalization Ratio 1.5(H) 0.9 - 1.1 CERNER MILLENNIUM Blood specimen (specimen) 11/05/2013 8:32 AM EST 11/05/2013 8:37 AM EST Narrative Resulting Agency Comment Spec In Lab Surendra Mckeon Jr., MD HEMATOLOGY ORDERA TEODOROTj JAZMIN PETE * (ABNORMAL) BMP w/fasting Glucose (11/05/2013 8:32 AM EST) Glucose Fasting 177(H) 65 - 99 mg/dL CERNER MILLENNIUM Comment: ?Fasting* Glucose Interpretive Criteria Normal ?65-99 [...] of Diabetes Mellitus, Position Statement from the [place] [employer]. ??Diabetes Care, Volume 33, Supplement 1, Nov 2009 Blood Urea Nitrogen 9 8 - 18 mg/dL CERNER MILLENNIUM Creatinine 0.64(L) 0.70 - 1.20 mg/dL CERNER MILLENNIUM Comment: Please note that the pediatric reference intervals supplied above were not validated at [facility]. Results from pediatric patients should be interpreted [...] Narrative Resulting Agency Comment Spec In Lab Surendra Mckeon Jr., MD CHEMISTRY ORDERAB LES [facility] * (ABNORMAL) CBC (with Diff) (11/05/2013 8:32 [...] Narrative Resulting Agency Comment Spec In Lab Surendra Mckeon Jr., MD HEMATOLOGY ORDERA BLES CERGRACIELA CARLISLEENNIUM * (ABNORMAL) Differential, Automated (11/04/2013 6:40 PM [...] 6:40 PM EST 11/04/2013 6:46 PM EST Surendra Mckeon Jr., MD HEMATOLOGY ORDERDenny MORALES [facility] MILLENNI[facility] * (ABNORMAL) Basic Metabolic Panel (non-fasting) (11/04/2013 6:40 PM EST) Glucose 157 60 - 199 mg/dL CERNER MILLENNIUM Comment:Diabetes: >=200 mg/d L plus symptoms Blood Urea Nitrogen 9 8 - 18 mg/dL CERNER MILLENNIUM Creatinine 0.70 0.70 - 1.20 mg/dL CERNER MILLENNIUM Comment: Please note that the pediatric reference intervals supplied above were not validated at [facility]. Results from pediatric patients should be interpreted [...] Narrative Resulting Agency Comment Spec In Lab Surendra Mckeon Jr., MD CHEMISTRY ORDERAB LES Performing Organization Address City/[facility]/ZIP Co de Phone Number CERNER MILLENNIUM * [...] Narrative Resulting Agency Comment Spec In Lab Surendra Mckeon Jr., MD HEMATOLOGY ORDERA BLES CERGRACIELA MELGARIUM * (ABNORMAL) Prothrombin Time (11/04/2013 6:40 PM EST) Prothrombin Time 18.1(H) 12.0 - 15.0 sec CERNER MILLENNIUM Comment: [facility] Transfusion Committee Guidelines: INR less than 2.0, PTT less than OR equal to 43.5 seconds, or Fibrinogen greater than or equal to 100 mg/dl indicate adequate procoagulant activity for hemostasis in patients without underlying bleeding disorders. International Normalization Ratio 1.4(H) 0.9 - 1.1 CERNER MILLENNIUM Blood specimen (specimen) 11/04/2013 6:40 PM EST 11/04/2013 6:46 PM EST Narrative Resulting Agency Comment Spec In Lab Surendra Mckeon Jr., MD HEMATOLOGY ORDERA BLES CERNER MILLENNIUM * (ABNORMAL) Differential, Automated (11/03/2013 6:15 AM [...] 6:15 AM EST 11/03/2013 6:35 AM EST Surendra Mckeon Jr., MD HEMATOLOGY ORDERA BLES Performing Organization Address [facility] de Phone Number JAZMIN PETE * (ABNORMAL) Prothrombin Time (11/03/2013 6:15 AM EST) Prothrombin Time 17.6(H) 12.0 - 15.0 sec CERNER MILLENNIUM Comment: [facility] Transfusion Committee Guidelines: INR less than 2.0, PTT less than OR equal to 43.5 seconds, or Fibrinogen greater than or equal to 100 mg/dl indicate adequate procoagulant activity for hemostasis in patients without underlying bleeding disorders. International Normalization Ratio 1.4(H) 0.9 - 1.1 CERNER MILLENNIUM Blood specimen (specimen) 11/03/2013 6:15 AM EST 11/03/2013 6:35 AM EST Narrative Resulting Agency Comment Spec In Lab Surendra Mckeon Jr., MD HEMATOLOGY ORDERA BLES Performing Organization Address [facility] Phone Number JAZMIN PETE * (ABNORMAL) Basic Metabolic Panel (non-fasting) (11/03/2013 6:15 AM EST) Glucose 120 60 - 199 mg/dL CERNER MILLENNIUM Comment:Diabetes: >=200 mg/d L plus symptoms Blood Urea Nitrogen 9 8 - 18 mg/dL CERNER MILLENNIUM Creatinine 0.62(L) 0.70 - 1.20 mg/dL CERNER MILLENNIUM Comment: Please note that the pediatric reference intervals supplied above were not validated at [facility]. Results from pediatric patients should be interpreted [...] Narrative Resulting Agency Comment Spec In Lab Surendra Mckeon Jr., MD CHEMISTRY ORDERAB LES [facility] MAY[facility] * (ABNORMAL) CBC (with Diff) (11/03/2013 6:15 [...] Narrative Resulting Agency Comment Spec In Lab Surendra Mckeon Jr., MD HEMATOLOGY ESPERANZA MORALES JAZMIN PETE * Surgical Pathology Report (11/02/2013 9:54 AM EST) Surgical Pathology Report ? [facility] ? Provider: ?? SURENDRA MCKEON JR ??Pt. Name: ?? MARY ELLENMARLA ? Acc #: ?[id number] ?Pt. ? Col Date: ?? 11/02/2013 ?/Sex: ?1955,(58 ? years),Female ? Rec Date: ?? 11/02/2013 ?LOC: ?[id number] ? SURGICAL PATHOLOGY ? ---Pathologic Diagnosis--- ? Left knee bone and tissue, resection: ? Osteoarthritis with focal subchondral necrosis. 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 ? 11/06/13 ? [facility] ? 11/06/13 Verified by: ? Riaz WEBB, Arpita Chawla ? Pathologist ? (Electronic Signature) ? The [...] Same JAZMIN PETE 11/02/2013 9:54 AM EST Surendra Mckeon Jr., MD PATHOLOGY/CYTOLOG Y ORDERABLES JAZMIN PETE * Specimen to Pathology (surgical or derm) (11/02/2013 8:29 AM EST) AP Specimen 11/02/2013 8:29 AM EST 11/02/2013 8:29 AM EST Narrative JAZMIN PETE - 11/02/2013 8:29 AM EST Specimen requisition ordered. ??Separate Pathology report to follow Surendra Mckeon Jr., MD PATHOLOGY/CYTOLOG Y ORDERABLES Performing Organization Address [facility] Co de Phone Number JAZMIN PETE * (ABNORMAL) Prothrombin Time (11/02/2013 6:07 AM EST) Prothrombin Time 15.1(H) 12.0 - 15.0 sec JAZMIN PETE Comment: [facility] Transfusion Committee Guidelines: INR less than 2.0, PTT less than OR equal to 43.5 seconds, or Fibrinogen greater than or equal to 100 mg/dl indicate adequate procoagulant activity for hemostasis in patients without underlying bleeding disorders. International Normalization Ratio 1.2(H) 0.9 - 1.1 CERGRACIELA MELGARIUM Blood specimen (specimen) 11/02/2013 6:07 AM EST 11/02/2013 6:12 AM EST Narrative Resulting Agency Comment Spec In Lab Surendra Mckeon Jr., MD HEMATOLOGY ORDERA BLES Performing Organization Address [facility] de Phone Number JAZMIN PETE documented in this encounter Visit Diagnoses Diagnosis Left TKA 11/02- Primary Knee joint replacement by other means DJD (degenerative joint disease) of knee Osteoarthrosis, unspecified whether generalized or localized, lower leg Neuropathy Mononeuritis of unspecified site Rheumatoid arthritis(714.0) Rheumatoid arthritis Lateral epicondylitis of elbow Lateral epicondylitis of elbow Total knee replacement status, left documented in this encounter Administered Medications Inactive Administered Medications - up to 3 most recent administrations Medication Order MAR Action Action Date Dose Rate Site acetaminophen (TYLENOL) tablet 1,000 mg 1,000 mg, Oral, EVERY 8 HOURS SCHEDULED, First dose on Sat11/02/13 at 1400, Until Discontinued, Maximum dose of acetaminophen is 4000 mg from all sources in 24 hours., Routine Given 11/05/2013 3:07 PM EST 1,000 mg Given 11/05/2013 5:44 AM EST 1,000 mg Given 11/04/2013 10:30 PM EST 1,000 mg bisacodyl (DULCOLAX) EC tablet 10 mg 10 mg, Oral, 2 TIMES DAILY PRN, Starting on Sat11/03/13 at 1012, Until Sat11/05/13 at 1914, Constipation, Administer if needed per patient's routine or if no bowel movement within 48 hours, Routine Given 11/03/2013 1:38 PM EST 10 mg calcium carbonate tablet 650 mg 650 mg, Oral, 3 TIMES DAILY WITH MEALS, First dose on Sat11/02/13 at 1900, Until Discontinued Given 11/05/2013 11:44 AM EST 650 mg Given 11/05/2013 8:43 AM EST 650 mg Given 11/04/2013 5:00 PM EST 650 mg ceFAZolin (ANCEF) 1g in dextrose 5% 50mL 1,000 mg (1 g), Intravenous, EVERY 8 HOURS, 3 doses, First dose on Sat11/02/13 at 1115, Last dose on Sat11/03/13 at 0315, Administer over 30 Minutes, For 3 doses postoperatively. Adjust to 8 hours from intraoperative dose., Indication for (Active or Suspected): Prophylaxis New Bag 11/03/2013 7:27 AM EST 1,000 mg 100 mL/ hr New Bag 11/03/2013 12:00 AM EST 1,000 mg 100 mL/hr New Bag 11/02/2013 4:00 PM EST 1,000 mg 100 mL/hr diaZEPam (VALIUM) tablet 5 mg 5 mg, Oral, EVERY 6 HOURS PRN, Starting on Sat11/03/13 at 1226, Until Sat11/04/13 at 1916, Anxiety, spasms, Routine Given 11/03/2013 7:01 PM EST 5 mg diaZEPam (VALIUM) tablet 5 mg 5 mg, Oral, EVERY 8 HOURS PRN, Starting on Sat11/04/13 at 1930, Until Sat11/05/13 at 1914, Anxiety, spasms, Routine Given 11/05/2013 12:27 PM EST 5 mg diphenhydrAMINE (BENADRYL) capsule 25 mg 25 mg, Oral, EVERY 6 HOURS PRN, Starting on Sat11/04/13 at 1130, Until Sat11/05/13 at 1914, Itching, Routine Given 11/04/2013 6:27 PM EST 25 mg Given 11/04/2013 12:53 PM EST 25 mg diphenhydrAMINE (BENADRYL) injection 25 mg 25 mg, Intravenous, EVERY 30 MIN PRN, 2 doses, Starting on Sat11/02/13 at 1116, Until Sat11/03/13 at 0042, Itching, May repeat dose in 30 minutes if pruritis not relieved., Routine Given 11/03/2013 12:42 AM EST 25 mg Given 11/02/2013 12:26 PM EST 25 mg doxepin (SINEQUAN) capsule 50 mg 50 mg, Oral, NIGHTLY, First dose on Sat11/02/13 at 2100, Until Discontinued, Routine Given 11/04/2013 8:2 0 PM EST 50 mg Given 11/03/2013 8:26 PM EST 50 mg Given 11/02/2013 9:00 PM EST 50 mg enoxaparin (LOVENOX) injection 80 mg 80 mg, Subcutaneous, EVERY 12 HOURS, First dose on Sat11/03/13 at 0000, Until Discontinued, Routine Given 11/05/2013 12:28 PM EST 80 mg Given 11/05/2013 1:00 AM EST 80 mg Given 11/04/2013 12:00 PM EST 80 mg famotidine (PEPCID) tablet 20 mg 20 mg, Oral, 2 TIMES DAILY, First dose on Sat11/02/13 at 2100, Until Discontinued, Routine Given 11/05/2013 8:4 3 AM EST 20 mg Given 11/04/2013 8:20 PM EST 20 mg Given 11/04/2013 9:00 AM EST 20 mg gabapentin (NEURONTIN) capsule 600 mg 600 mg, Oral, 3 TIMES DAILY, First dose on Sat11/02/13 at 1145, Until Discontinued, Routine Given 11/03/2013 9:00 AM EST 600 mg Given 11/02/2013 9:00 PM EST 600 mg Given 11/02/2013 12:00 PM EST 600 mg gabapentin (NEURONTIN) capsule 600 mg 600 mg, Oral, 2 TIMES DAILY, First dose (after last modification) on Sat11/03/13 at 1400, Until Discontinued, Routine Given 11/05/2013 3:07 PM EST 600 mg Given 11/05/2013 8:43 AM EST 600 mg Given 11/04/2013 2:00 PM EST 600 mg gabapentin (NEURONTIN) capsule 900 mg 900 mg, Oral, NIGHTLY, First dose on Sat11/03/13 at 2100, Until Discontinued, Routine Given 11/04/2013 8:2 0 PM EST 900 mg Given 11/03/2013 8:26 PM EST 900 mg HYDROmorphone (DILAUDID) 1 mg/mL CUSTOMER PRICING MANAGER 30 mL Intravenous, CUSTOMER PRICING MANAGER ONLY, Starting on Sat11/02/13 at 1115, Until Sat11/02/13 at 1703 New Syringe/Cartridge 11/02/2013 11:00 AM EST HYDROmorphone (DILAUDID) 1 mg/mL CUSTOMER PRICING MANAGER 30 mL Intravenous, CUSTOMER PRICING MANAGER ONLY, Starting on Sat11/02/13 at 1730, Until Sat11/04/13 at 1916 Rate/Dose Verify 11/03/2013 8:24 PM EST New Syringe/Cartridge 11/03/2013 11:30 AM EST New Syringe/Cartridge 11/02/2013 5:30 PM EST HYDROmorphone (DILAUDID) 2 mg/mL injection 1 dose, Starting on Sat11/02/13 at 1227, Until Sat11/02/13 at 1236, KIERAN PETTY: cabinet override HYDROmorphone (DILAUDID) injection 0.2-0.4 mg 0.2-0.4 mg, Intravenous, EVERY 5 MIN PRN, Starting on Sat11/02/13 at 1026, Until Sat11/02/13 at 1759, Pain, For moderate pain give: 0.2 mg every 5 minute prn For severe pain give: 0.4 mg every 5 minutes prn Maximum dose: 4 mg per hour Hold for respiratory rate less than 10 per minute., PACU Recovery, Routine Given 11/02/2013 4:13 PM EST 0.4 mg Given 11/02/2013 3:34 PM EST 0.4 mg Given by Other 11/02/2013 2:56 PM EST 0.4 mg HYDROmorphone (DILAUDID) injection 0.4 mg 0.4 mg, Intravenous, EVERY 1 MIN PRN, 5 doses, Starting on Sat11/02/13 at 1446, Until Sat11/02/13 at 1459, Pain, Routine Given by Other 11/02/2013 2:59 PM EST 1.6 mg Given 11/02/2013 2:00 PM EST 0.4 mg Given 11/02/2013 1:58 PM EST 0.4 mg HYDROmorphone (DILAUDID) tablet 12 mg 12 mg, Oral, EVERY 3 HOURS PRN, Starting on 11/03/13 at 0949, Until Cherry 11/05/13 at 1914, Pain, For Severe pain. If pain not relieved, call provider., Routine Given 11/05/2013 3:25 PM EST 12 mg Given 11/05/2013 11:44 AM EST 12 mg Given 11/05/2013 8:44 AM EST 12 mg HYDROmorphone (DILAUDID) tablet 6 mg Given 11/02/2013 7:31 PM EST 6 mg HYDROmorphone (DILAUDID) tablet 6 mg 6 mg, Oral, EVERY 3 HOURS PRN, Starting on Sat11/02/13 at 2230, Until Sat11/03/13 at 0951, Pain, For Severe pain. Do not exceed 6 mg in 4 hours. If pain not relieved, call provider., Routine Given 11/03/2013 5:29 AM EST 6 mg Given 11/03/2013 1:57 AM EST 6 mg lactated ringers infusion 1,000 mL 1,000 mL, at 100 mL/hr, Intravenous, CONTINUOUS, Starting on Sat11/02/13 at 0645, Until Sat11/02/13 at 1831, Day of Surgery (Day of Procedure) [facility] 11/02/2013 6:45 AM EST 1,000 mLs 100 mL/hr levothyroxine (SYNTHROID) tablet 125 mcg 125 mcg, Oral, EVERY MORNING, First dose on Sat11/03/13 at 0600, Until Discontinued, Routine Given 11/05/2013 6:44 AM EST 125 mcg Given 11/04/2013 5:55 AM EST 125 mcg Given 11/03/2013 6:00 AM EST 125 mcg LORazepam (ATIVAN) injection 0.5 mg 0.5 mg, Intravenous, EVERY 5 MIN PRN, 4 doses, Starting on Sat11/02/13 at 1521, Until Sat11/02/13 at 1800, Anxiety, Routine Given 11/02/2013 3:49 PM EST 0.5 mg methadone (DOLOPHINE) tablet 20 mg 20 mg, Oral, 4 TIMES DAILY, First dose on Sat11/02/13 at 1300, Until Discontinued, Routine Given 11/02/2013 12:25 PM EST 20 mg methadone (DOLOPHINE) tablet 25 mg 25 mg, Oral, 4 TIMES DAILY, First dose (after last modification) on Sat11/02/13 at 2100, Until Discontinued, Routine Given 11/03/2013 9:00 AM EST 25 mg Given 11/02/2013 12:43 AM EST 25 mg methadone (DOLOPHINE) tablet 25 mg 25 mg, Oral, EVERY 6 HOURS, First dose (after last modification) on Sat11/04/13 at 0000, Until Discontinued, Routine Given 11/05/2013 12:28 PM EST 25 mg Given 11/05/2013 6:44 AM EST 25 mg Given 11/05/2013 1:00 AM EST 25 mg methadone (DOLOPHINE) tablet 25 mg 25 mg, Oral, 2 TIMES DAILY, 2 doses, First dose on Sat11/03/13 at 1400, Last dose on Sat11/03/13 at 1900, Routine Given 11/03/2013 7:00 PM EST 25 mg Given 11/03/2013 2:00 PM EST 25 mg polyethylene glycol (MIRALAX) packet 17 g 17 g, Oral, 2 TIMES DAILY, First dose on Sat11/02/13 at 2100, Until Discontinued, Administer if needed per patient's routine or if no bowel movement within 48 hours, Routine Given 11/05/2013 8:43 AM EST 17 g Given 11/04/2013 8:20 PM EST 17 g Given 11/04/2013 9:00 AM EST 17 g predniSONE (DELTASONE) tablet 10 mg 10 mg, Oral, DAILY, First dose on Sat11/02/13 at 1145, Until Discontinued, STAT Given 11/05/2013 8:43 AM EST 10 mg Given 11/04/2013 9:00 AM EST 10 mg Given 11/03/2013 9:00 AM EST 10 mg prochlorperazine (COMPAZINE) injection 5 mg 5 mg, Intravenous, EVERY 30 MIN PRN, 2 doses, Starting on Sat11/02/13 at 1832, Until Sat11/04/13 at 1916, Nausea, May repeat in 30 minutes if no relief from previous dose. HOLD if patient is sedated. Maximum dose is 40 mg in 24 hours., Routine Given 11/04/2013 10:32 AM EST 5 mg senna-docusate (PERICOLACE) 8.6-50 mg per tablet 1-4 tablet 1-4 tablet, Oral, 2 TIMES DAILY, First dose on Sat11/02/13 at 2100, Until Discontinued, Start with 1 tablet or liquid equivalent orally twice daily and titrate up to achieve: 1. One bowel movement at least every 48 hours, AND 2. Without straining, Routine Given 11/05/2013 8:43 AM EST 2 tablets Given 11/04/2013 8:20 PM EST 2 tablets Given 11/04/2013 9:00 AM EST 2 tablets sodium chloride 0.9 % flush 5 mL 5 mL, Intravenous, EVERY 12 HOURS, First dose on Sat11/02/13 at 1900, Until Discontinued Given 11/05/2013 6:44 AM EST 5 mLs Given 11/04/2013 7:00 PM EST 5 mLs Given 11/04/2013 7:00 AM EST 5 mLs sodium chloride 0.9% infusion 1,000 mL, at 100 mL/hr, Intravenous, CONTINUOUS, Starting on Sat11/02/13 at 1115, Until Sat11/03/13 at 0708 New Bag 11/02/2013 9:40 PM EST 1,000 mL s 100 mL/hr New Bag 11/02/2013 11:00 AM EST 1,000 mLs 100 mL/hr warfarin (COUMADIN) tablet 2.5 mg 2.5 mg, Oral, ONCE, 1 dose, On Sat11/04/13 at 2130, STAT Given 11/04/2013 10:30 PM EST 2.5 mg warfarin (COUMADIN) tablet 5 mg 5 mg, Oral, ONCE, 1 dose, On Sat11/02/13 at 2000, Routine Given 11/02/2013 8:00 PM EST 5 mg warfarin (COUMADIN) tablet 5 mg 5 mg, Oral, ONCE, 1 dose, On Sat11/03/13 at 1700, Routine Given 11/03/2013 5:00 PM EST 5 mg warfarin (COUMADIN) tablet 5 mg 5 mg, Oral, ONCE, 1 dose, On Sat11/04/13 at 1900, Routine Given 11/04/2013 7:00 PM EST 5 mg documented in this encounter Active and Recently Administered Medications Times are shown in EST. Scheduled Medication Order 11/03/2013 11/04/2013 11/05/2013 acetaminophen (TYLENOL) tablet 1,000 mg 1,000 mg, Oral, EVERY 8 HOURS SCHEDULED, First dose on Sat11/02/13 at 1400, Until Discontinued, Maximum dose of acetaminophen is 4000 mg from all sources in 24 hours., Routine 0600 (Given - Provider: aDle Ventura RN)1400 (Given - Provider: Brittni Vargas RN)2217 (Given - Provider: Jana Damon RN) 0555 (Given - Provider: Jana Damon RN)1400 (Given - Provider: Brittni Vargas, [place])2230 (Given - Provider: Jana Damon RN) 0544 (Given - Provider: Jana Damon RN)1507 (Given - Provider: Cordelia Desir RN) calcium carbonate tablet 650 mg (CANCELED) 650 mg, Oral, 3 TIMES DAILY WITH MEALS, First dose on Sat11/02/13 at 1900, Until Discontinued 0728 (Given - Provider: Dale Ventura RN)1200 (Given - Provider: Brittni Vargas, [place])1700 (Given - Provider: Brittni Vargas RN) 0800 [...] Ventura RN)1200 (Given - Provider: Brittni Vargas RN) 0017 (Given - Provider: Jana [...] Brittni Vargas RN)1400 (Given - Provider: Brittni Vargsa RN) 0843 (Given - Provider: Cordelia Desir RN)1507 (Given - Provider: Cordelia Desir RN) gabapentin (NEURONTIN) capsule 900 mg 900 mg, Oral, NIGHTLY, First dose on Sat11/03/13 at 2100, Until Discontinued, Routine 2025 (Given - Provider: Jana Damon RN) 2019 (Given - Provider: Jana Damon RN) levothyroxine [...] Routine 0900 (Given - Provider: Brittni Vargas RN)202 (Given - Provider: Jana Damon RN) 0900 [...] Until Discontinued 0700 (Given - Provider: Dale Ventura RN)1900 (Given - Provider: Brittni Vargas RN) 0700 (Given - Provider: Jana Damon RN)1900 (Given - Provider: Brittni Vargas RN) 0644 [...] 11/03/2013 11/04/2013 11/05/2013 HYDROmorphone (DILAUDID) 1 mg/mL CUSTOMER PRICING MANAGER 30 mL (CANCELED) Intravenous, CUSTOMER PRICING MANAGER ONLY, Starting on Sat11/02/13 at 1730, Until [...] spasms, Routine 1901 (Given - Provider: Brittni Vargas, [place]) diaZEPam (VALIUM) tablet 5 mg 5 mg, [...] Brittni Vargas RN)1827 (Given - Provider: Brittni Vargas, [place]) diphenhydrAMINE (BENADRYL) injection 25 mg (CANCELED) 25 [...] Vargas RN)1633 (Given - Provider: Brittni Vargas RN)2025 (Given - Provider: Jana Damon RN) 0640 (Given - Provider: Jana Damon RN)0930 (Given - Provider: Brittni Vargas RN)1252 (Given - Provider: Brittni Vargas RN)1557 (Given - Provider: Brittni Vargas RN)202 (Given - Provider: Jana Damon RN) 0233 [...] RN)1633 (See Alternative - Provider: Brittni Vargas RN)202 (See Alternative - Provider: Jana Damon RN) 0640 (See Alternative - Provider: Jana Damon RN)0930 (See Alternative - Provider: Brittni Vargas RN)1252 (See Alternative - Provider: Brittni Vargas, [place])1557 (See Alternative - Provider: Brittni Vargas RN)2022 (See Alternative - Provider: Jana Damon, [place]) 0233 (See Alternative - Provider: Jana Damon, [place])0544 (See Alternative - Provider: Jana Damon, [place])0844 (See Alternative - Provider: Cordelia Desir RN)1144 [...] provider., Routine 0157 (Given - Provider: Dale Ventura RN)0529 (Given - Provider: Dale Ventura RN) prochlorperazine [...] 0949, Until Sat11/05/13 at 1914, Pain, For Moderate pain. If pain not relieved, call provider., Routine Or HYDROmorphone (DILAUDID) tablet 12 mg (CANCELED)Jump to med 12 mg, Oral, EVERY 3 HOURS PRN, Starting on Sat11/03/13 at 0949, Until Cherry 11/05/13 at 1914, Pain, For Severe pain. If pain not relieved, call provider., Routine documented in this encounter Care Teams Computer Architect Relationship Specialty Start Date End Date Curt Michelle MD [address], [facility] [address] [place] [address] PCP - General 10/10/10 documented as of this encounter
--- OUTSIDE RECORDS SUMMARY | 2024-10-30 01:37 | XMS_ITS | Encounter Summary ---
Author Organization [facility] Address [facility] [address] [place] [address] Care Team Providers Care Health Care Facilities Inspector Name Role Phone Curt Cassidy MD Primary Care Provider Encounter Details Date Type Department Care Team (Late st Contact Info) Description 11/02/2013 7:32 AM EST Anesthesia [place] [phone] Rafael Berg MD [facility] [address] ANESTHESI[place] [address] Soco Rodriguez PA [facility] PRE-[place] [address] Anesthesia Record Procedure Summary Procedure Name Responsible Anesthesiologist Anesthesia Start Time Anesthesia Stop Time TOTAL KNEE ARTHROPLASTY (WRVU 19.6) (Left: Knee) Rafael Berg MD 11/02/13 0732 11/02/13 1026 Events Date Time Event Comment 11/02/2013 0718 0731 AN Verify 0732 Start 0733 Quick Note Received 1.5mg of versed in the block area, uneventful spinal see note. 0734 An Start Data 0734 An Start Data 0745 Spinal Sitting sterile prep and drape 2 attempts local 1% lidocaine 3 cc skin wheel then first w 27 g aparicio spinal needle at L4 L5, smooth but no csf return when at hub of introducer, withdrew and moved to L3 L4 interspace with 22g spinal needle, successful by Dr Berg, dosed with 0.75%bupivacaine 1.5 cc, cautious w dosing pt reports having a high spinal with her c section in the past. No heme, no parathesias, smooth. T 6 level 0810 Anesthesia Ready 0828 An Tourn Inflated 0830 Procedure Start 0845 Break/Relief In DANE SHER, POWER ELECTRONICS ENGINEER 0902 Break/Relief Out 0934 An Tourn Deflated 1007 Procedure Stop 1012 an stop data 1026 Stop Meds Name Total lidocaine IV 40 mg ceFAZolin 2 g propofol INF 311.17 mg lactated ringers 2,000 mL * Agents Name O2 Air O2 Auxiliary Flowmeter 1 * Blood No blood administrations on file. Lines, Drains, and Airways Type Details Placement Removal Incision 11/02/13; knee; 05/18 12/05; 191711/02/13 0000 by Hunter Ordoñez RN 05/28/181917 by Katharina Gamboa, [place] Urethral Catheter 11/02/13; indwelling double lumen catheter; 100% silicone; 16; inserted (by mar ordoñez, with sterile technique.); 1; drainage bag to dependent drainage; 11/04/13; 0957 11/02/13 0000 by Hunter Ordoñez RN 11/04/13 0957 by Marla Snow LNA Drain/Device Site 11/02/13; Left; knee ; autotransfusion system (constavac); 11/03/13 11/02/13 0000 by Hunter Ordoñez RN 11/03/13 0000 by Brittni Vargas, IRV[place] (RETIRED) Peripheral IV Line - Single Lumen 11/02/13; 0628; 11/05/13; 1621 11/02/13 0628 by Gabriela Barron RN 11/05/13 1621 by Jeff Larose (RETIRED) Peripheral IV Line - Single Lumen 11/03/13; 0030 11/02/13 0956 by 11/03/13 0030 by Dale Ventura RN documented in this encounter Social History Tobacco [...] OR Notes * Anesthesia Postprocedure Evaluation - Rafael Berg MD - 11/02/2013 11:10 AM EST Patient: Marla Denton Procedure(s) Performed: Procedure(s): @TOTAL KNEE ARTHROPLASTY MODIFIER PFC STABILIZED FIXED MODULAR DEPUY Actual Anesthetic: spinal, regional, sedation Patient location: PACU Post-op pain: Adequate analgesia Post-op nausea: no nausea or vomiting Last Vitals: Filed Vitals: 11/02/13 1100 BP: 124/79 Pulse: 71 Temp: Resp: 12 Post-op cardiovascular and respiratory status: is stable Level of consciousness: awake, alert and oriented Complications: no apparent complications and tolerated the procedure well Fluid Status: normal * Anesthesia Procedure Notes - Ivet Ayala CRNA - 11/02/2013 7:24 AM ESTAssociated Order(s): ANESTHESIA BLOCK; ANE NEURAXIAL UPDATED; ANE NEURAXIAL UPDATED Procedure: Anesthesia Block Block: Post-op Pain Control, femoral nerve block Start time: 11/02/2013 6:50 AM End time: 11/02/2013 7:00 AM This patient was greeted in the block room and the risks and benefits of the anesthetic block were reviewed. The risks of infection, bleeding, local anesthetic toxicity, and nerve injury were discussed. Specifically, the approximate risk of nerve injury (11/2999-11/4999) including neuropathy, loss of sensation and motor function, whether permanent or temporary, was discussed as well as the fact that post-surgical nerve injury can be unrelated to the actual injection and may be related to intra-operative issues such as positioning and tourniquet usage. The anesthetic consent was obtained. The timeout was performed prior to procedure start. Standard ASA monitors were applied. Indication/Prep Position: supine Prep: chlorhexidine Laterality: left Ultrasound Guidance: live and in-plane Skin Medication lidocaine 1% 3 ml Injection Injection technique:single-shot Needle Length: 5 cm Gauge: 22 Needle Type: [id number] Medication injection made incrementally with aspirations. Nerve infiltration solution through a needle Ropivicaine 0.5% 30 mL Additional Notes 2 mg of PF decadron in solution Performed by: NETTIE Maya Supervising Attending/Fellow: Gunnar Jackson ~~~~~~~~~~~~~~~~~~~~~~~~~~~~~~~~~~~~~~~~~~~~~~~~~~~~~~~~~~~~ * Anesthesia Preprocedure Evaluation - Rafael Berg MD - 10/29/2013 9:27 AM EST Pre-Anesthesia Evaluation for: Marla Denton a 58 y.o. female. Procedure(s): @TOTAL KNEE ARTHROPLASTY MODIFIER PFC STABILIZED FIXED MODULAR DEPUY Patient Active Problem List Diagnosis ??? Encounter for long-term (current) use of [...] run on 02/20/2012 ??? Seronegative rheumatoid arthritis Chronic steroids, 10 mg prednisone daily Chronic pain - 20 mg of methadone 3- 4 times / day Takes dilaudid once in a while Takes gabapentin daily On warfarin - lovenox bridge starting 10/29. PT pending. Last dose of coumadin Saturday. Last dose of lovenox yesterday am (history of multiple DVTs and PEs) Last xrays of cervical spine i can find is from 2002 - no symptoms or radiculopathy, just occasional stiffness HypoTh MRI of lumbar spine noted from 2008 - no abnormalities in the lumbar region EKG NSR with poor R Wave progression CXR not on file No URIs No known lung dx. Can't lay flat - just doesn't. Occasional snoring, no apnea Baseline sats 94%, can increase to upper 90s with deep breaths. Lungs clear - just obesity and deconditioning? Past Surgical History Procedure Date ??? Hysterectomy, total abdominal ??? Shoulder surgery R TKA had femoral nerve block and a spinal - states they could not get the femoral nerve block, kept having paresthesia No airways on file C1-C2 fusion 1990 L thumb extensor tendon repair ACL ganglion cyst - unrepaired? Pt states nausea / vomiting once with anesthsia History Substance Use Topics ??? Smoking status: Never Smoker ??? Smokeless tobacco: Not on file ??? Alcohol Use: Not on file History Drug Use Not on file Allergies Allergen Reactions ??? Iodinated Contrast Media - Iv Dye Anaphylaxis ??? Iodine-Iodine Containing Anaphylaxis ??? Vancomycin Anaphylaxis ??? Infliximab Other (See Comments) throat swelling,chest heaviness ??? Ms Contin (Morphine) ??? Sulfa (Sulfonamide Antibiotics) ??? Sulfisoxazole ??? Sulfisoxazole Acetyl Unknown Medications: MAR and/or home medications have been reviewed. Physical Exam: There were no vitals filed for this visit. There is no height or weight on file to calculate BMI. Airway Assessment: Mallampati: II TM distance: >3 FB Neck ROM: limited Cardiovascular Assessment: Rhythm: regular Pulmonary Assessment: breath sounds clear to auscultation Dental Assessment: Misc Assessment: IV access: Peripheral line Other exam findings: 10/28/13 ECG: Normal sinus rhythm Poor R-wave progression Abnormal ECG When compared with ECG of 28-SEP-1999 19:48, No significant change was found Somewhat limited extension Anesthesia Plan: ASA 3 regional and spinal, with a(n) intravenous induction Note based on chart review alone. Came to PAT clinic 10/29 but only to have labs and ekg, did not see MD or PA from anesthesiology. Plan : Spinal ( pt prefers), general as back up with glidescope prn, femoral nerve block single shot ( pt on lovenox after and this precludes a catheter use) stress dose steroids. No TXA - pt with history of PEs. Also a jevohah's witness and refuses blood transfusions, okay withcell saver and albumin, discussed blood refusal with patient and daughters. Chart review by JENNI: 58 y/o with rheumatoid arthritis for total left knee arthroplasty. Islam, refuses bloodproducts. Chronic pain, takes oral Dilaudid 4mg QID and methadone 20 mg QID. S/P right total knee in 2003. Hx cervical discectomy and fusion, limited but reasonable ROM, Hx DVTs, right leg cellulitisand edema, on warfarin - d/shantell 10/27/13. Hx MRSA infection. Multiple allergies including morphine. Hgb 13.5 on 10/28/13. Region - Other Informed Consent: Anesthetic plan and risks discussed with patient. Use of blood products discussed with patient whom did not consent to blood products. Special considerations: Congregation. Plan discussed with attending. Misc. Assessment: documented in this encounter Miscellaneous Notes * Addendum Note - Rafael Berg MD - 11/02/2013 3:22 PM EST Addendum created 11/02/13 152 by Rafael Berg MD Modules edited:Orders, PRL Based Order Sets * Addendum Note - Rafael Berg MD - 11/02/2013 3:22 PM EST Addendum created 11/02/13 1522 by Rafael Berg MD Modules edited:Orders * Addendum Note - Rafael Berg MD - 11/02/2013 3:20 PM EST Addendum created 11/02/13 1520 by Rafael Berg MD Modules edited:PRL Based Order Sets * Addendum Note - Rafael Berg MD - 11/02/2013 2:48 PM EST Addendum created 11/02/13 1448 by Rafael Berg MD Modules edited:Orders documented in this encounter Plan of Treatment Not on file documented as of this encounter Procedures Procedure Name Priority Date/Time Associated Diagnosis Comments ANESTHESIA BLOCK Routine 11/02/2013 10:0 4 AM EST documented in this encounter Results * ANE NEURAXIAL UPDATED (11/02/2013 10:04 AM EST) Narrative Ivet Ayala CRNA - 11/02/2013 10:04 AM EST Ivet Ayala CRNA ? 11/02/2013 10:04 AM Procedure: ??Anesthesia Block Block: Post-op Pain Control, femoral nerve block Start time: 11/02/2013 6:50 AM End time: 11/02/2013 7:00 AM This patient was greeted in the block room and the risks and benefits of the anesthetic block were reviewed. ??The risks of infection, bleeding, local anesthetic toxicity, and nerve injury were discussed. ??Specifically, the approximate risk of nerve injury (11/2999-11/4999) including neuropathy, loss of sensation and motor function, whether permanent or temporary, was discussed as well as the fact that post-surgical nerve injury can be unrelated to the actual injection and may be related to intra-operative issues such as positioning and tourniquet usage. ?? The anesthetic consent was obtained. The timeout was performed prior to procedure start. ??Standard ASA monitors were applied. Indication/Prep Position: supine Prep: chlorhexidine Laterality: left Ultrasound Guidance: live and in-plane Skin Medication lidocaine 1% 3 ml Injection Injection technique:single-shot Needle Length: 5 cm Gauge: 22 Needle Type: [id number] Medication injection made incrementally with aspirations. Nerve infiltration solution through a needle Ropivicaine 0.5% 30 mL Additional Notes 2 mg of PF decadron in solution Performed by: ??NETTIE Maya Supervising Attending/Fellow: ??Gunnar Jackson ~~~~~~~~~~~~~~~~~~~~~~~~~~~~~~~~~~~~~~~~~~~~~~~~~~~~~~~~~~~~ Procedure Note Ivet Ayala CRNA - 11/02/2013 7:24 AM EST Procedure: Anesthesia Block Block: Post-op Pain Control, femoral nerve block Start time: 11/02/2013 6:50 AM End time: 11/02/2013 7:00 AM This patient was greeted in the block room and the risks and benefits ofthe anesthetic block were reviewed. The risks of infection, bleeding,local anesthetic toxicity, and nerve injury were discussed. Specifically,the approximate risk of nerve injury (11/2999-11/4999) including neuropathy,loss of sensation and motor function, whether permanent or temporary, wasdiscussed as well as the fact that post- surgical nerve injury can beunrelated to the actual injection and may be related to intra-operativeissues such as positioning and tourniquet usage. The anesthetic consentwas obtained. The timeout was performed prior to procedure start.Standard ASA monitors were applied. Indication/Prep Position: supine Prep: chlorhexidine Laterality: left Ultrasound Guidance: live and in-plane Skin Medication lidocaine 1% 3 ml Injection Injection technique:single-shot Needle Length: 5 cm Gauge: 22 Needle Type: [id number]-cowdf Medication injection made incrementally with aspirations. Nerve infiltration solution through a needle Ropivicaine 0.5% 30 mL Additional Notes 2 mg of PF decadron in solution Performed by: NETTIE Maya Supervising Attending/Fellow: Gunnar Jackson ~~~~~~~~~~~~~~~~~~~~~~~~~~~~~~~~~~~~~~~~~~~~~~~~~~~~~~~~~~~~ Ivet Ayala CRNA INDUSTRIAL AUTOMATION SPECIALIST [facility] * ANE NEURAXIAL UPDATED (11/02/2013 10:04 AM EST) Narrative Ivet Ayala CRNA - 11/02/2013 10:04 AM EST Ivet Ayala CRNA ? 11/02/2013 10:04 AM Procedure: ??Anesthesia Block Block: Post-op Pain Control, femoral nerve block Start time: 11/02/2013 6:50 AM End time: 11/02/2013 7:00 AM This patient was greeted in the block room and the risks and benefits of the anesthetic block were reviewed. ??The risks of infection, bleeding, local anesthetic toxicity, and nerve injury were discussed. ??Specifically, the approximate risk of nerve injury (11/2999-11/4999) including neuropathy, loss of sensation and motor function, whether permanent or temporary, was discussed as well as the fact that post-surgical nerve injury can be unrelated to the actual injection and may be related to intra-operative issues such as positioning and tourniquet usage. ?? The anesthetic consent was obtained. The timeout was performed prior to procedure start. ??Standard ASA monitors were applied. Indication/Prep Position: supine Prep: chlorhexidine Laterality: left Ultrasound Guidance: live and in-plane Skin Medication lidocaine 1% 3 ml Injection Injection technique:single-shot Needle Length: 5 cm Gauge: 22 Needle Type: [id number]-hthuo Medication injection made incrementally with aspirations. Nerve infiltration solution through a needle Ropivicaine 0.5% 30 mL Additional Notes 2 mg of PF decadron in solution Performed by: ??NETTIE Maya Supervising Attending/Fellow: ??Gunnar Jackson ~~~~~~~~~~~~~~~~~~~~~~~~~~~~~~~~~~~~~~~~~~~~~~~~~~~~~~~~~~~~ Procedure Note Ivet Ayala, POWER ELECTRONICS ENGINEER - 11/02/2013 7:24 AM EST Procedure: Anesthesia Block Block: Post-op Pain Control, femoral nerve block Start time: 11/02/2013 6:50 AM End time: 11/02/2013 7:00 AM This patient was greeted in the block room and the risks and benefits ofthe anesthetic block were reviewed. The risks of infection, bleeding,local anesthetic toxicity, and nerve injury were discussed. Specifically,the approximate risk of nerve injury (11/2999-11/4999) including neuropathy,loss of sensation and motor function, whether permanent or temporary, wasdiscussed as well as the fact that post- surgical nerve injury can beunrelated to the actual injection and may be related to intra-operativeissues such as positioning and tourniquet usage. The anesthetic consentwas obtained. The timeout was performed prior to procedure start.Standard ASA monitors were applied. Indication/Prep Position: supine Prep: chlorhexidine Laterality: left Ultrasound Guidance: live and in-plane Skin Medication lidocaine 1% 3 ml Injection Injection technique:single-shot Needle Length: 5 cm Gauge: 22 Needle Type: X-rmsse-frerq Medication injection made incrementally with aspirations. Nerve infiltration solution through a needle Ropivicaine 0.5% 30 mL Additional Notes 2 mg of PF decadron in solution Performed by: NETTIE Maya Supervising Attending/Fellow: Gunnar Jackson ~~~~~~~~~~~~~~~~~~~~~~~~~~~~~~~~~~~~~~~~~~~~~~~~~~~~~~~~~~~~ Ivet Ayala CRNA INDUSTRIAL AUTOMATION SPECIALIST [facility] * Anesthesia Block (11/02/2013 10:04 AM EST) Narrative Ivet Ayala POWER ELECTRONICS ENGINEER - 11/02/2013 10:04 AM EST Ivet Ayala CRNA ? 11/02/2013 10:04 AM Procedure: ??Anesthesia Block Block: Post-op Pain Control, femoral nerve block Start time: 11/02/2013 6:50 AM End time: 11/02/2013 7:00 AM This patient was greeted in the block room and the risks and benefits of the anesthetic block were reviewed. ??The risks of infection, bleeding, local anesthetic toxicity, and nerve injury were discussed. ??Specifically, the approximate risk of nerve injury (11/2999-11/4999) including neuropathy, loss of sensation and motor function, whether permanent or temporary, was discussed as well as the fact that post-surgical nerve injury can be unrelated to the actual injection and may be related to intra-operative issues such as positioning and tourniquet usage. ?? The anesthetic consent was obtained. The timeout was performed prior to procedure start. ??Standard ASA monitors were applied. Indication/Prep Position: supine Prep: chlorhexidine Laterality: left Ultrasound Guidance: live and in-plane Skin Medication lidocaine 1% 3 ml Injection Injection technique:single-shot Needle Length: 5 cm Gauge: 22 Needle Type: X-[id number]-dmfkn Medication injection made incrementally with aspirations. Nerve infiltration solution through a needle Ropivicaine 0.5% 30 mL Additional Notes 2 mg of PF decadron in solution Performed by: ??NETTIE Maya Supervising Attending/Fellow: ??Gunnar Jackson ~~~~~~~~~~~~~~~~~~~~~~~~~~~~~~~~~~~~~~~~~~~~~~~~~~~~~~~~~~~~ Procedure Note Ivet Ayala CRNA - 11/02/2013 7:24 AM EST Procedure: Anesthesia Block Block: Post-op Pain Control, femoral nerve block Start time: 11/02/2013 6:50 AM End time: 11/02/2013 7:00 AM This patient was greeted in the block room and the risks and benefits ofthe anesthetic block were reviewed. The risks of infection, bleeding,local anesthetic toxicity, and nerve injury were discussed. Specifically,the approximate risk of nerve injury (11/2999-11/4999) including neuropathy,loss of sensation and motor function, whether permanent or temporary, wasdiscussed as well as the fact that post- surgical nerve injury can beunrelated to the actual injection and may be related to intra-operativeissues such as positioning and tourniquet usage. The anesthetic consentwas obtained. The timeout was performed prior to procedure start.Standard ASA monitors were applied. Indication/Prep Position: supine Prep: chlorhexidine Laterality: left Ultrasound Guidance: live and in-plane Skin Medication lidocaine 1% 3 ml Injection Injection technique:single-shot Needle Length: 5 cm Gauge: 22 Needle Type: C-jlgnx-zyiyk Medication injection made incrementally with aspirations. Nerve infiltration solution through a needle Ropivicaine 0.5% 30 mL Additional Notes 2 mg of PF decadron in solution Performed by: NETTIE Maya Supervising Attending/Fellow: Gunnar Jackson ~~~~~~~~~~~~~~~~~~~~~~~~~~~~~~~~~~~~~~~~~~~~~~~~~~~~~~~~~~~~ Bertha Maya MD INDUSTRIAL AUTOMATION SPECIALIST [facility] documented in this encounter Visit Diagnoses Not on filedocumented in this encounter Administered Medications Inactive Administered Medications - up to 3 most recent administrations Medication Order MAR Action Action Date Dose Rate Site ceFAZolin (ANCEF) 1g in dextrose 5% 50mL PRN, Starting on Sat11/02/13 at 0820, Until Sat11/02/13 at 1026, Administer over 30 Minutes, Anesthesia Intra-op Given 11/02/2013 8:20 AM EST 2 g lactated ringers infusion CONTINUOUS PRN, Starting on Sat11/02/13 at 0745, Until Sat11/02/13 at 1026, Anesthesia Intra-op New Bag 11/02/2013 7:45 AM EST mL lidocaine (PF) (XYLOCAINE) 100 mg/5 mL (2 %) injection PRN, Starting on Sat11/02/13 at 0815, Until Sat11/02/13 at 1026, Anesthesia Intra-op, Routine Given 11/02/2013 8:15 AM EST 40 mg propofol (DIPRIVAN) infusion CONTINUOUS PRN, Starting on Sat11/02/13 at 0822, Until Sat11/02/13 at 1026, Anesthesia Intra-op, Routine New Bag 11/02/2013 8:22 AM EST 40 mcg/kg/min 18 mL/hr documented in this encounter Care Teams Health Care Facilities Inspector Relationship Specialty Start Date End Date Curt Cassidy MD [address] [facility] [address] [place] [address] PCP - General 10/10/10 documented as of this encounter
--- OUTSIDE RECORDS SUMMARY | 2024-10-30 01:37 | XMS_ITS | Encounter Summary ---
Author Organization [facility] [place] [address] Care Team Providers Care Special Officer Automat Name Role Phone Curt Cassidy MD Primary Care Provider [phone] Encounter Details Date Type Department Care Team (Latest Contact Info) Description 12/03/2013 Anti-Coag Telephone [place] [id number] Radha Trivedi, RN Total knee replacement status, left Social History Tobacco Use [...] Visit Diagnoses Diagnosis Total knee replacement status, left documented in this encounter Care Teams Special Officer Automat Relationship Specialty Start Date End Date Curt Cassidy MD [address] [facility] [address] [place] [address] PCP - General 10/10/10 documented as of this encounter
--- OUTSIDE RECORDS SUMMARY | 2024-10-30 01:37 | XMS_ITS | Encounter Summary ---
Author Organization [facility] Address [facility] [address] [place] [address] Care Team Providers Care Candy Spreader Name Role Phone Curt Cassidy MD Primary Care Provider [phone] Reason for Visit * Reason Onset Date Comments Medication Refill 07/22/2014 Encounter Details Date Type Department Care Team (Late st Contact Info) Description 07/22/2014 [place] [address] Nena Toussaint MD [facility] [place] [address] Cellulitis and abscess of leg (Primary Dx) Social History Tobacco Use Types [...] as of this encounter Visit Diagnoses Diagnosis Cellulitis and abscess of leg- Primary Cellulitis and abscess of leg, except foot documented in this encounter Care Teams Candy Spreader Relationship Specialty Start Date End Date Curt Cassidy MD [address] [facility], [facility] [address] [place], [place] [id number] PCP - General 10/10/10 documented as of this encounter
--- OUTSIDE RECORDS SUMMARY | 2024-10-30 01:37 | XMS_ITS | Encounter Summary ---
Author Organization [facility] Address [facility] [place] [address] Care Team Providers Care Strings Teacher Name Role Phone uCrt Cassidy MD Primary Care Provider [phone] Reason for Visit * Reason Comments Left Knee Pain ? RA Joint Replacement Right TKA DOS 4 Encounter Details Date Type Department Care Team (Late st Contact Info) Description 09/16/2013 12:05 PM EDT Office [place] [address] Surendra Mckeon Jr., MD [facility] [place] [address] Seronegative rheumatoid arthritis; DJD (degenerative joint disease) of knee; Internal derangement of knee Discharge Disposition: Home Social History Tobacco Use Types Packs/Day Years Used Date Smoking Tobacco: Never Alcohol Use Standard Drinks/Week Comments Not Asked 0 (1 standard drink = 0.6 oz pur e alcohol) Sex and Gender Information Value Date Recorded Sex Assigned at Not on file Gender Identity Not on file Sexual Orientation Not on file documented as of this encounter Last Filed Vital Signs Vital Sign Reading Time Taken Comments Blood Pressure 119/60 09/16/2013 12:40 PM EDT Pulse 97 09/16/2013 12:40 PM EDT Temperature - - Respiratory Rate 20 09/16/2013 12:40 PM EDT Oxygen Saturation - - Inhaled Oxygen Concentration - - Weight 81.2 kg (179 lb) 09/16/2013 12:40 PM EDT Height 151.1 cm (4' 11.5) 09/16/2013 12:40 PM E DT Body Mass Index 35.55 09/16/2013 12:40 PM EDT documented in this encounter Progress Notes * Surendra Mckeon Jr., MD - 09/16/2013 12:40 PM EDT SURGERY DATE: 02/02/2004 Procedures: TOTAL KNEE REPLACEMENT /RT/PFC STABILZED MODULAR Diagnosis: MILD DJD RT KNEE/RA, MARKED SYNOVITIS WITH SOME RICE BODIES Surgeons: SURENDRA MCKEON AROS, BRIAN At 9 years post op Ms. Denton is appreciative and strength and distance have improved and the severe knee pain is gone For the past 4-6 weeks she has been having pain in the L knee with tightness posteriorly, sense of giving way and rest pain. The pain is worse coming out of a squat. At times it is intolerable and times it is minimal. Stairs up with a rail Stairs down with a rail and limited to one leg at a time Walk aids- none Meds- minor analgesics ed with symptom resolution and eased pain. Walking smoothly without limp PE R L ROM Passive flex 95 deg 90deg ext 0 10 Active flex 95 85 ext 0 10 Clinical alignment 7 deg valgus Wound is well healed with scar fading L knee with positive Brian's and Marta tests. Medial joint line pain and no instability. No effusion and mild infrapatellar tenderness Xray- Excellent alignment and technique for all components. No significant overhang of prosthesis. No significant degenerative disease in the L knee A/ Excellent early result with great pain relief. Limited flexion and will work on this. Suspect L medial meniscal tear. Cannot r/o AVN. Previously had marked relief of R knee pain with a scope for 2-3 years prior to TKR. P/ Continue Rom therapy and strive for 110 degree ROM. Re start stationary bike exercise. manitainence strength exercises. Dental precautions. Set up for L knee MRI for ? Of meniscal tear amenable toscope. I have made the following determinations: Knee Exam: Left Prior surgery on this joint: No Gait Abnormality: Antalgic Knee ROM: Extension:10 Flexion: 85 Alignment: 0-4 degrees Neutral Stability: A/P Translation <5mm Varus (lateral stability) <5mm Valgus (medial stability) <5mm Extension La-10 degrees Radiographic evidence of joint damage: [0= normal; 1=minimal ; 2= some osteophytes , some narrowing ; 3= moderate osteophytes, significantnarrowing, mild deformity; 4= large osteophytes, marked narrowing, obvious deformity]: 1= minimal Patella Tracking: Normal Skin Integrity: Normal Small cat scratches Pulses Palpable: Left PT:Yes Left DP:Yes Motor/Sensory: Distal Motor:Normal Distal Sensory: Normal Quadriceps Strength:4 documented in this encounter Plan of Treatment Not on file documented as of this encounter Results * MRI knee WO contrast (09/21/2013 2:47 PM EST) Anatomical Region Laterality Modality Knee Magnetic Resonan ce 09/21/2013 2:47 PM EST Narrative 09/21/2013 3:29 PM EST Examination MR Knee Without Frantz/LEFT Clinical History Left medial knee pain Comparison None left knee x-rays 09/16/2013. Technique Noncontrast MRI left knee was performed. Findings Menisci: ??There is blunting of the inner 3rd posterior horn medial meniscus compatible with degenerative free edge radial tearing. ??Similar finding of the body segment and posterior horn lateral meniscus there is free edge irregularity on series 2-9. ?? Cruciate ligaments: Pronounced fusiform expansion of the ACL by T2 hyperintense material with attenuation of fibers compatible with mucoid degeneration. ??There is accompanying presumably reactive marrow signal alteration/edema within the lateral intercondylar notch at the femoral attachment as well as within the medial tibial spine at the tibial attachment. Collateral ligaments: ??The MCL and lateral collateral ligamentous complex are intact. Tendons: ??The quadriceps tendon is largely excluded from the field of view limiting its evaluation. ??Patellar tendons intact as is popliteus tendon. ?? Articular cartilage: ??At the patellofemoral compartment, there is high-grade partial thickness chondral fissuring at the median ridge of the patella with a broad area of partial thickness chondral loss and near full thickness chondral fissuring at the lateral patellar facet best seen on series 3-11. At the medial compartment, there is a small area of alteration of a normal chondral signal intensity the inner tibial plateau cartilage suggestive of chondral degeneration without clear chondral defect. At the lateral compartment, there is superficial chondral surface irregularity of the posterior tibial plateau cartilage/low grade partial thickness chondral loss. Bones: ??No fracture suspicious marrow signal abnormalities identified. ??There are tricompartmental marginal osteophytes. Miscellaneous: ??There is a small to moderate joint effusion with synovitis. ??No discrete intraarticular body or popliteal cyst. Impression ? 1. Degenerative free edge radial tearing posterior horn medial meniscus as well as involving body segment and posterior horn lateral meniscus, as above. ? 2. Findings compatible with mucoid degeneration of the ACL with presumably reactive marrow signal alteration in the intercondylar notch of the distal femur and medial tibial spine at the attachment sites of the ligament. ? 3. Cartilage loss most pronounced at the patellofemoral compartment, as detailed above. ? 4. Small to moderate joint effusion with synovitis. Procedure Note Gerry Joiner MD - 09/21/2013 Examination MR Knee Without Frantz/LEFT Clinical History Left medial knee pain Comparison None left knee x-rays 09/16/2013. Technique Noncontrast MRI left knee was performed. Findings Menisci: There is blunting of the inner 3rd posterior horn medialmeniscus compatible with degenerative free edge radial tearing. Similar finding ofthe body segment and posterior horn lateral meniscus there is free edge irregularity on series 2-9. Cruciate ligaments: Pronounced fusiform expansion of the ACL by [id number] material with attenuation of fibers compatible with mucoid degeneration.There is accompanying presumably reactive marrow signal alteration/edema withinthe lateral intercondylar notch at the femoral attachment as well as withinthe medial tibial spine at the tibial attachment. Collateral ligaments: The MCL and lateral collateral ligamentous complexare intact. Tendons: The quadriceps tendon is largely excluded from the field of view limiting its evaluation. Patellar tendons intact as is popliteus tendon. Articular cartilage: At the patellofemoral compartment, there ishigh-grade partial thickness chondral fissuring at the median ridge of the patellawith a broad area of partial thickness chondral loss and near full thicknesschondral fissuring at the lateral patellar facet best seen on series 3-11. At the medial compartment, there is a small area of alteration of a normal chondral signal intensity the inner tibial plateau cartilage suggestive of chondral degeneration without clear chondral defect. At the lateral compartment, there is superficial chondral surfaceirregularity of the posterior tibial plateau cartilage/low grade partial thicknesschondral loss. Bones: No fracture suspicious marrow signal abnormalities identified.There are tricompartmental marginal osteophytes. Miscellaneous: There is a small to moderate joint effusion withsynovitis. No discrete intraarticular body or popliteal cyst. Impression 1. Degenerative free edge radial tearing posterior horn medialmeniscus as well as involving body segment and posterior horn lateral meniscus, asabove. 2. Findings compatible with mucoid degeneration of the ACL withpresumably reactive marrow signal alteration in the intercondylar notch of the distal femur and medial tibial spine at the attachment sites of the ligament. 3. Cartilage loss most pronounced at the patellofemoral compartment,as detailed above. 4. Small to moderate joint effusion with synovitis. Surendra Mckeon Jr., MD IMG MRI ORDERABLE S documented in this encounter Visit Diagnoses Diagnosis Seronegative rheumatoid arthritis Rheumatoid arthritis DJD (degenerative joint disease) of knee Osteoarthrosis, unspecified whether generalized or localized, lower leg Internal derangement of knee Unspecified internal derangement of knee Internal derangement of knee Unspecified internal derangement of knee documented in this encounter Care Teams Strings Teacher Relationship Specialty Start Date End Date Curt Cassidy MD [address] [facility], [facility] [address] [place] [address] PCP - General 10/10/10 documented as of this encounter
--- OUTSIDE RECORDS SUMMARY | 2024-10-30 01:37 | XMS_ITS | Encounter Summary ---
Author Organization [facility] Address [facility] [place] [address] Care Team Providers Care Head Of Cytogenetics Name Role Phone Curt Cassidy MD Primary Care Provider Reason for Visit * Reason Comments Rheumatoid Arthritis Encounter Details Date Type Department Care Team (Late st Contact Info) Description 09/21/2013 11:15 AM EST Follow-[place] [address] Rafael Sidhu MD [facility] [place] [address] Rheumatoid arthritis (Primary Dx); Right elbow pain; Left knee pain; DVT, recurrent, lower extremity, chronic Discharge Disposition: Home Social History Tobacco Use [...] Sign Reading Time Taken Comments Blood Pressure 117/72 09/21/2013 11:19 AM EST Pulse 77 09/21/2013 11:19 AM EST Temperature 36.8 ??C (98.2 ??F) 09/21/2013 11:[address] Respiratory Rate - - Oxygen Saturation 96% 09/21/2013 11:19 AM EST Inhaled Oxygen Concentration - - Weight 78.7 kg (173 lb 6.4 oz) 09/21/2013 11:19 AM EST Height 151.1 cm (4' 11.5) 09/21/2013 11:19 AM Ryan REYES Body Mass Index 34.44 09/21/2013 11:19 AM EST documented in this encounter Patient Instructions * Patient Instructions* Rafael Sidhu MD - 09/21/2013 12:13 PM EST 1. Labs today 2. Await decision by Dr. Montanez regarding left knee treatment 3. Stay on doxycycline 4. If not having knee replacement soon, will arrange for tocilizumab IV given as 4-8 mg/kg in [place] if possible. Sub cutaneous formulation probably available in mid 2013. 5. Return in 3-4 months after starting tocilizumab, or until after surgery. documented in this encounter Progress Notes * Rafael Sidhu MD - 09/21/2013 11:51 AM EST Marla Denton is a 57-year-old female seen in 4 month follow up [...] cellulitis. Her CRP was 9 at that time Interval History: Today, she reports the following issues: 1. Severe right elbow pain: Injected by orthopedist by Dr. Crabtree in [place], 4 weeks since last injection 2. Severe left knee pain and swelling last injected in 2011, has seen Dr. Montanez on 09.16.13 (Right TKR previously replaced). Scheduled to have MRI today. 3. Left shoulder pain emerging on left 4. Did not take Tofacitinib due to nausea. 5. No more LE infections on doxycycline 6. Right wrist is less of a problem with splinting Just taking prednisone 10 mg/d Review of Systems Constitutional: No fevers, chills, [...] Problem List: 1. Seronegative rheumatoid arthritis, erosive/destructive. Failed multiple TNF antagonisits (Enbrel, Remicade Orencia, Kineret). Rituxan - last infusion December 2011, with 2 infusions in 2010 (Complicated by severe headache without dyspnea or hives) Chronic shoulder and neck pain - stable dose methadone following shoulder replacement surgery. CSA, CellCept, Imuran, CTLA4-Ig have been considered, given lymphocytic infiltrates on tenosynovialbiopsies (per Dr. Sidhu's note). Current treatment - Arava 20 mg po daily, prednisone 7.5 mg po daily Chest pain complicated 2.12 RTX infusion Hx C1-2 fusion distant past Intolerant of Tofacitinib in May-June 2013 due to nausea. 2. RLE edema Extensive/NEGATIVE workup (02/2007) in association with venous stasis changes Failed to respond to trials of enoxaparin, gabapentin, high dose steroids (12/2007) - Bilateral pulmonary emboli (CT scan) Coumadin therapy - ongoing. Positive bone scan, negative MRI Spontaneous remission until recurrence in 2011, although chronic basal edema has persisted till then. Shoulder replacement right (persistent pain) 3. Recurrent cellulitis - LE Followed by ID - Hibiclens wash weekly, in 2009. Much less at f/u in .10. Left 5th big toe infection, not clearly osteomyelitic vs cellulitis with RA. 4. DXA ([place] 2004: -1.3 SD low at spine; 1 SD at hip) 5. Persistent right knee popliteal cysts with pain ACL ganglion cyst, considering arthroscopy with Dr. [...] due to left knee pain Blood pressure 117/72, pulse 77, lexswtmodnq20.8 ??C (98.2 ??F), temperature source Oral, height 151.1 cm (4' 11.5), weight 78.654 kg (173 lb 6.4 oz), SpO2 96.00%.HEENT: normal. Neck decreased flexion. Shoulders: decreased abduction left shoulder, right not tested. Elbows: less, but present tenderness of entire dorsal compartment of right right forearm up to the lateral epicondyle. The elbow moves stiffly and tender. Left okay. . Wrists unimpressive for synovitis Hands: little if any swelling of bilateral 2nd/3rd mcp joints with tenderness and little swelling.. Her right TKR is well healed and there is diffuse swelling to the dorsum of the foot. Left Achilles very tender to the touch. Ankles okay MTP joints splaying and very tender. VARGAS 28 Joint Count TJC: 4 SJC0 Patient global 7, Physician global 5. CDAI 17.5 Impression: Persistent active RA who has failed multiple agents in the past, who has travel limitations, recurrent DVT/PE, recurrent cellulitis, who unfortunately was unable to tolerate tofacitinib. This makes tocilizumab a remaining option. She has had shingles in the last 5+ years so I do not think there is much of an increased risk for recurrence and it will not be covered. Second, the real infectious risk is in her legs, but this is not particularly worse with TCZ. Tocilizumab is given IV and I would recommend it first if her CRP is still up with the eventual goal of going to sq when it is available in 6 months. Her right limb pain appears to be a relatively diffuse tendonitis involving lateral epicondyle, still, but the major issue is her right knee and potential need for knee replacement. Plan: 1. RA: with hypergammaglobulinemia Will check labs today, await knee MRI and need for replacement. If not needed, will try to arrange for Tocilizumab in [place] with transition to sq use in 2013 if works. 2. Right lateral epicondylitis and forearm ravi: Cock up splint and injections have helped 3. LE edema: At some point in time, Ms. Denton has had every imaging study for this. She is on anticoagulation and doxycycline 100 mg daily as chronic suppression of her recurrent cellulitis appears to have helped 4. Left knee arthritis with sx c/w Mckeon's cyst, more c/w OA: await MRI and need for knee replacement 5. 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 6. Continue to encourage weight loss Level 4 F/u visit Rafael Sidhu M.D. Staff Brand Marketing Specialist Addendum: CRP 9 all others fine. Note sent to start tofa 5 mg/bid and doxy 100 mg/d. X-rays showed tiny erosions in feet documented in this encounter Miscellaneous Notes * Addendum Note - Yony Lockhart - 09/21/2013 12:23 PM ESTAddended by: YONY LOCKHART on: 09/21/2013 12:23 PM Modules accepted: Orders documented in this encounter Plan of Treatment Not on file documented as of this encounter Procedures Procedure Name Priority Date/Time Associated Diagnosis Comments LAVENDER TUBE HOLD Routine 09/21/2013 1: 14 PM EST PROTHROMBIN TIME Routine 09/21/2013 1:11 PM EST DVT, recurrent, lower extremity, chronic CRP, CARDIAC RISK (HS CRP) Routine 09/21/2013 1:11 PM EST Rheumatoid arthritis COMPREHENSIVE METABOLIC PANEL Routine 09/21/2013 1:11 PM EST Rheumatoid arthritis SCAN, PERIPHERAL BLOOD Routine 3 12:50 PM EST NUCLEATED RED BLOOD CELLS Routine 09/21/2013 12:50 PM EST DIFFERENTIAL, AUTOMATED Routine 09/21/2013 12:50 PM EST CBC (WITH DIFF) Routine 09/21/2013 12:50 PM EST Rheumatoid arthritis documented in this encounter Results * Lavender Tube HOLD (09/21/2013 1:14 PM EST) Lavender Hold Sample in lab. CERNER MILLENNIUM Blood specimen (specimen) 09/21/2013 1:14 PM EST 09/21/2013 1:23 PM EST Rafael Sidhu MD HEMATOLOGY ORDERABLE S Performing Organization Address [facility] de Phone Number JAZMIN CARLISLEENNIUM * (ABNORMAL) Prothrombin Time (09/21/2013 1:11 PM EST) Prothrombin Time 28.0(H) 12.0 - 15.0 sec CERNER MILLENNIUM Comment: [facility] Transfusion Committee Guidelines: INR less than 2.0, PTT less than OR equal to 43.5 seconds, or Fibrinogen greater than or equal to 100 mg/dl indicate adequate procoagulant activity for hemostasis in patients without underlying bleeding disorders. International Normalization Ratio 2.5(H) 0.9 - 1.1 CERNER MILLENNIUM Blood specimen (specimen) 09/21/2013 1:11 PM EST 09/21/2013 1:23 PM EST Narrative Resulting Agency Comment Spec In Lab Rafael Sidhu MD HEMATOLOGY ORDERABLE S Performing Organization Address [facility] de Phone Number JAZMIN CARLISLEENNIUM * (ABNORMAL) Comprehensive metabolic panel (non-fasting) (09/21/2013 1:11 PM EST) Glucose 73 60 - 199 mg/dL CERNER MILLENNIUM Comment:Diabetes: >=200 mg/d L plus symptoms Blood Urea Nitrogen 12 8 - 18 mg/dL CERNER MILLENNIUM Creatinine 0.75 0.70 - 1.20 mg/dL CERNER MILLENNIUM Comment: Please note that the pediatric reference intervals supplied above were not validated at [facility] Results from pediatric patients should be interpreted in conjunction to the patient's age, height and muscle mass. Sodium 140 135 - 145 mmol/L CERNER MILLENNIUM Potassium 3.9 3.5 - 5.0 mmol/L CERNER MILLENNIUM Comment: Please note: ??Patients with WBC >100,000 may have falsely elevated Potassium levels. ??For accurate Potassium quantification in these patients send serum separator tube (gold top) for subsequent determinations. ??Contact the Clinical Chemistry Laboratory if there are any questions. Chloride 100 98 - 107 mmol/L CERNER MILLENNIUM Carbon Dioxide 28 22 - 31 mmol/L CERNER MILLENNIUM Anion Gap 12 5 - 15 mmol/L CERNER MILLENNIUM Calcium 9.6 8.5 - 10.5 mg/dL CERNER MILLENNIUM Protein, Total 8.3 6.4 - 8.3 gm/dL CERNER MILLENNIUM Albumin 4.2 3.2 - 5.2 gm/dL CERNER MILLENNIUM Aspartate Aminotransferase 21 0 - 30 unit/L CERNER MILLENNIUM Alanine Aminotransferase 22 0 - 30 unit/L CERNER MILLENNIUM Alkaline Phosphatase 119(H) 40 - 104 unit/L CERNER MILLENNIUM Bilirubin, [...] internet browser. http://www.nkdep.nih.gov/lab-evaluation.shtml http://www.kidney.org/professionals/ Blood specimen (specimen) 09/21/2013 1:11 PM EST 09/21/2013 1:23 PM EST Narrative Resulting Agency Comment Spec In Lab Rafael Sidhu MD CHEMISTRY ORDERABLES CERGRACIELA MELGARIUM * High Sensitivity CRP (09/21/2013 1:11 PM EST) C-Reactive Protein High Sensitivity 22.6 mg/L CERNER MILLENNIUM Comment: Interpretations: 1) For [...] prevention. ??Circulation 2003; [id number] Blood specimen (specimen) 09/21/2013 1:11 PM EST 09/21/2013 1:23 PM EST Narrative Resulting Agency Comment Spec In Lab Rafael Sidhu MD CHEMISTRY ORDERABLES CERGRACIELA MILLENNIUM * (ABNORMAL) Differential, Automated (09/21/2013 12:50 PM EST) Neutrophil % 62.0 34.0 - 71.0 % CERNER MILLENNIUM Neutrophil Absolute 7.66(H) 1.50 - 6.30 x10(3)/mc L CERNER MILLENNIUM Lymph % 21.7 19.0 - 53.0 % CERNER MILLENNIUM Lymphocytes Abs 2.7 1.0 - 3.6 x10(3)/mc L CERNER MILLENNIUM Monocyte % 13.2(H) 4.0 - 13.0 % CERNER MILLENNIUM Monocyte Abs 1.6(H) 0.2 - 1.0 x10(3)/mc L CERNER MILLENNIUM Eos % 2.5 0.0 - 7.0 % CERNER MILLENNIUM Eosinophils Abs 0.3 0.0 - 0.5 x10(3)/mc L CERNER MILLENNIUM [...] differential will be performed. Immature Gran Absolute 0.05 0.00 - 0.05 x10(3)/mc L CERNER MILLENNIUM Blood specimen (specimen) 09/21/2013 12:50 PM EST 09/21/2013 12:56 PM EST Rafael Sidhu MD HEMATOLOGY ORDERABLE S Performing Organization Address [facility] de Phone Number CERNER MILLENNIUM * Nucleated Red Blood Cells (09/21/2013 12:50 PM EST) NRBC% auto 0.0 0.0 - 0.2 % CERNER MILLENNIUM NRBC Absolute 0.000 0.000 - 0.012 x10(3)/mcL CERNER MILLENNIUM Blood specimen (specimen) 09/21/2013 12:50 PM EST 09/21/2013 12:56 PM EST Narrative Resulting Agency Comment Spec In Lab Rafael Sidhu MD HEMATOLOGY ORDERABLE S Performing Organization Address [facility] Co de Phone Number CERNER MILLENNIUM * Scan, Peripheral Blood (09/21/2013 12:50 PM EST) Plat estimate Normal CERNER MILLENNIUM RBC Morphology Normal CERNE R MILLENNIUM Blood specimen (specimen) 09/21/2013 12:50 PM EST 09/21/2013 12:56 PM EST Narrative Resulting Agency Comment Spec In Lab Rafael Sidhu MD HEMATOLOGY ORDERABLE S Performing Organization Address [facility] Co de Phone Number JAZMIN PETE * (ABNORMAL) CBC (with Diff) (09/21/2013 12:50 PM EST) White Blood Cell 12.4(H) 4.0 - 10.0 x10(3)/mc L CERNER MILLENNIUM Red Blood Cell 4.43 3.93 - 5.22 x10(6)/mc L CERNER MILLENNIUM Hemoglobin 14.0 11.2 - 15.7 gm/dL CERNER MILLENNIUM Hematocrit 42.5 34.0 - 45.0 % CERNER MILLENNIUM Mean Cell Volume 95.9(H) 79.0 - 94.0 fL CERNER MILLENNIUM Mean Cell Hemoglobin 31.6 26.6 - 32.2 pg CERNER MILLENNIUM Mean Cell Hemoglobin Concentration 32.9 32.0 - 36.5 gm/dL CERNER MILLENNIUM Platelet 325 145 - 370 x10(3)/mc L CERNER MILLENNIUM RDW Standard Deviation 49.3(H) 35.0 - 46.0 fL CERNER MILLENNIUM RDW coefficient of variation 13.9 10.9 - 14.4 % CERNER MILLENNIUM Mean Platelet Volume 10.2 9.0 - 12.0 fL CERNER MILLENNIUM Blood specimen (specimen) 09/21/2013 12:50 PM EST 09/21/2013 12:56 PM EST Narrative Resulting Agency Comment Spec In Lab Rafael Sidhu MD HEMATOLOGY ORDERABLE S Performing Organization Address [facility]/ZIP Co de Phone Number JAZMIN PETE documented in this encounter Visit Diagnoses Diagnosis Rheumatoid arthritis(714.0)- Primary Rheumatoid arthritis Right elbow pain Pain in joint, upper arm Left knee pain Pain in joint, lower leg DVT, recurrent, lower extremity, chronic Chronic venous embolism and thrombosis of unspecified deep vessels of lower extremity documented in this encounter Care Teams Head Of Cytogenetics Relationship Specialty Start Date End Date Curt Cassidy MD [address] [facility] [address] [place] [address] PCP - General 10/10/10 documented as of this encounter
--- OUTSIDE RECORDS SUMMARY | 2024-10-30 01:37 | XMS_ITS | Encounter Summary ---
Author Organization Formerly [facility], [facility] Address [facility] [place] [address] Care Team Providers Care Clinical Laboratory Director Name Role Phone Curt Cassidy MD Primary Care Provider [phone] Encounter Details Date Type Department Care Team (Latest Contact Info) Description 10/28/2013 11:59 AM EST - 10/28/2013 11:59 PM [facility] [place] [id number] Mayco Montanez Jr., MD [facility] [place] [address] Encounter for long-term (current) use of other medications; DJD (degenerative joint disease) of knee Discharge Disposition: Home Social History [...] 11/05/2013 ergocalciferol (VITAMIN D) 50,000 unit capsule 38827 unit, PO, once a month 10/23/2010 VIT D3-FOLIC [id number] ORAL 10/08/2013 12/07/19 14 RISEDRONATE SODIUM (ACTONEL [...] by mouth nightly as needed. 11/05/2013 02/25/2023 enoxaparin (LOVENOX) 120 mg/0.8 mL injection Inject 80 mg subcutaneously every 12 hours. 11/05/2013 levothyroxine (SYNTHROID) 125 mcg tablet Take 125 mcg by mouth daily. 11/05/2013 zolpidem (AMBIEN) 10 mg tablet Take 10 mg by mouth nightly as needed. 11/05/2013 methadone (DOLOPHINE) 10 mg tablet Take 20 mg by mouth 4 times daily. Normally takes 3-4 times a day. 11/05/2013 mupirocin calcium (BACTROBAN) 2 % nasal ointmentIndications:P re-op examination 1 Dose by Nasal route 2 times daily. Use one pea size application in each nostril twice daily for five (5) days before surgery. After application, press sides of nose together and gently massage. 10 g 0 10/26/2013 11/05/2013 chlorhexidine (HIBICLENS) 4 % external liquidIndications:Pre -op examination Apply topically daily as needed. 1. Wet entire body 2.Pour palm full of soap in hands3. Rub over entire body,avoid genital area4.Pour another palm full in hands and rub well over surgical site using friction5. Repeat steps 1-4.Be sure to scrub finger and toe nails underneath. 120 mL 0 10/26/2013 11/05/2013 HYDROmorphone (DILAUDID) 4 mg tablet Take 4 mg by mouth Every 6 hours. 09/24/2013 11/05/2013 risedronate (ACTONEL) 35 mg tablet Take 1 tablet by mouth every 7 days. with a full glass of water, on empty stomach, do not take anything else by mouth or lie down for next 30 minutes. 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 60 tablet 3 06/15/2013 11/05/2013 doxycycline (VIBRA-TABS) 100 mg tabletIndications:Cheli lulitis and abscess of leg Take 1 tablet by mouth daily. 90 tablet 3 06/15/2013 07/22/2014 gabapentin (NEURONTIN) 300 mg capsuleIndications:Ne uropathy Take 2 capsules by mouth 3 times daily. 90 capsule 12 07/08/2012 11/05/2013 calcium carbonate 648 mg tablet Take 650 mg by mouth 3 times daily (with meals). 11/05/2013 doxepin (SINEQUAN) 50 mg capsule Take 50 mg by mouth daily. 05/11/2011 11/05/2013 DIPHENHYDRAMINE HCL (BENADRYL ALLERGY ORAL) 25 mg PO 3-4 times per day 10/23/2010 11/05/2013 Psyllium Seed-Sucrose (METAMUCIL) Powd 1 Tsp, PO, Three times daily 10/23/2010 01/07/2017 WARFARIN SODIUM (WARFARIN ORAL) 10/23/2010 11/05/2013 documented as of this encounter Plan of Treatment Not on file documented as of this encounter Procedures Procedure Name Priority Date/Time Associated Diagnosis Comments URINALYSIS WITH REFLEX CULTURE Routine 10/28/2013 1:15 PM EST DJD (degenerative joint disease) of knee DIFFERENTIAL, AUTOMATED Routine 10/28/2013 1:04 PM EST CBC (WITH DIFF) Routine 10/28/2013 1:04 PM EST Encounter for long-term (current) use of other medications DJD (degenerative joint disease) of knee BASIC METABOLIC PANEL Routine 10/28/2013 1:04 PM EST DJD (degenerative joint disease) of knee documented in this encounter Results * (ABNORMAL) Urinalysis with microscopic (10/28/2013 1:15 PM EST) Glucose, Urine Dipstick Negative Negative mg/dL CERNER MILLENNIUM Protein, Urine Dipstick Negative mg/dL CERNER MILLENNIUM Bilirubin, Urine Dipstick Negative Negative mg/dL CERNER MILLENNIUM Comment: Clinical correlation required for positive Urine Bilirubin results as false positive may occur with some drugs and drug related products. If a false positive is suspected a serum total bilirubin should be considered if clinically indicated. Urobilinogen, Urine Dipstick Normal mg/dL CERNER MILLENNIUM pH, Urn (dipstick) 5.5 5.0 - 8.0 CERNER MILLENNIUM Blood, Urine Dipstick Negative mg/dL CERNER MILLENNIUM Ketone, Urine Dipstick Negative mg/dL CERNER MILLENNIUM Nitrite, Urine Dipstick Negative CERNER MILLENNIUM Leukocytes, Urine Dipstick Large(A) Neg CERNER MILLENNIUM Appearance, Urine Dipstick Hazy(A) Clear CERNER MILLENNIUM Specific [place] Urine Automated 1.007 1.002 - 1.030 CERNER MILLENNIUM Color, Urine Dipstick Light Yellow Yellow CERNER MILLENNIUM RBC, Urine 1 0 - 4 /HPF CERNER MILLENNIUM WBC, Urine 57(H) 0 - 5 /HPF CERNER MILLENNIUM Bacteria, Urine Rare(A) None /HPF CERN ER MILLENNIUM Squamous Epithelial Cells, Urine 7(H) <=4 /HPF CERNER MILLENNIUM Transitional Epithelial Cells, Urine 1 <=1 /HPF CERNER MILLENNIUM Urine specimen (specimen) 10/28/2013 1:15 PM EST 10/28/2013 1:17 PM EST Narrative Resulting Agency Comment Spec In Lab Mayco Montanez Jr., MD URINE ORDERABLES CERNER MILLENNIUM * (ABNORMAL) Differential, Automated (10/28/2013 1:04 PM EST) Neutrophil % 74.8(H) 34.0 - 71.0 % CERNER MILLENNIUM Neutrophil Absolute 11.28(H) 1.50 - 6.30 x10(3)/mc L CERNER MILLENNIUM Lymph % 15.8(L) 19.0 - 53.0 % CERNER MILLENNIUM Lymphocytes Abs 2.4 1.0 - 3.6 x10(3)/mc L CERNER MILLENNIUM Monocyte % 7.4 4.0 - 13.0 % CERNER MILLENNIUM Monocyte Abs 1.1(H) 0.2 - 1.0 x10(3)/mc L CERNER MILLENNIUM Eos % 1.2 0.0 - 7.0 % CERNER MILLENNIUM Eosinophils Abs 0.2 0.0 - 0.5 x10(3)/mc L CERNER MILLENNIUM Basophil % 0.3 0.0 - 2.0 % CERNER MILLENNIUM Baso Absolute 0.0 0.0 - 0.2 x10(3)/mc L CERNER MILLENNIUM Immature Gran % 0.50 0.00 - 0.66 % CERNER MILLENNIUM Comment: Immature granulocytes(IG's)percentage and absolute count will include metamyelocytes, myelocytes, and promyelocytes. Blood smears from CBCs yielding IG's will be scanned manually for concordance. If this scan disagrees with the automated IG or if promyelocytes are noted, a manual differential will be performed. Immature Gran Absolute 0.08(H) 0.00 - 0.05 x10(3)/mc L CERNER MILLENNIUM Blood specimen (specimen) 10/28/2013 1:04 PM EST 10/28/2013 1:08 PM EST Mayoc Montanez Jr., MD H[facility]ATOLOGY [facility] * Basic Metabolic Panel (non-fasting) (10/28/2013 1:04 PM EST) Glucose 85 60 - 199 mg/dL CERNER MILLENNIUM Comment:Diabetes: >=200 mg/d L plus symptoms Blood Urea Nitrogen 11 8 - 18 mg/dL CERNER MILLENNIUM Creatinine 0.83 0.70 - 1.20 mg/dL CERNER MILLENNIUM Comment: Please note that the pediatric reference intervals supplied above were not validated at [facility]. Results from pediatric patients should be interpreted in conjunction to the patient's age, height and muscle mass. Sodium 136 135 - 145 mmol/L CERNER MILLENNIUM Potassium Not Perf 3.5 - 5.0 mmol/L CERNER MILLENNIUM Comment: Unable to quantitate due to sample hemolysis. ??Sample redraw suggested. Please note: ??Patients with WBC >100,000 may have falsely elevated Potassium levels. ??For accurate Potassium quantification in these patients send serum separator tube (gold top) for subsequent determinations. ??Contact the Clinical Chemistry Laboratory if there are any questions. Chloride 98 98 - 107 mmol/L CERNER MILLENNIUM Carbon Dioxide 25 22 - 31 mmol/L CERNER MILLENNIUM Anion Gap 13 5 - 15 mmol/L CERNER MILLENNIUM Calcium 9.7 8.5 - 10.5 mg/dL CERNER MILLENNIUM Est [...] internet browser. http://www.nkdep.nih.gov/lab-evaluation.shtml http://www.kidney.org/professionals/ Blood specimen (specimen) 10/28/2013 1:04 PM EST 10/28/2013 1:08 PM EST Narrative Resulting Agency Comment Spec In Lab Mayco Montanez Jr., MD CHEMISTRY ORDERAB LES CERGRACIELA PETE * (ABNORMAL) CBC (with Diff) (10/28/2013 1:04 PM EST) White Blood Cell 15.1(H) 4.0 - 10.0 x10(3)/mc L CERNER MILLENNIUM Red Blood Cell 4.47 3.93 - 5.22 x10(6)/mc L CERNER MILLENNIUM Hemoglobin 13.5 11.2 - 15.7 gm/dL CERNER MILLENNIUM Hematocrit 41.3 34.0 - 45.0 % CERNER MILLENNIUM Mean Cell Volume 92.4 79.0 - 94.0 fL CERNER MILLENNIUM Mean Cell Hemoglobin 30.2 26.6 - 32.2 pg CERNER MILLENNIUM Mean Cell Hemoglobin Concentration 32.7 32.0 - 36.5 gm/dL CERNER MILLENNIUM Platelet 281 145 - 370 x10(3)/mc L CERGRACIELA CARLISLEENNIUM RDW Standard Deviation 46.0 35.0 - 46.0 fL JAZMIN MELGARIUM RDW coefficient of variation 13.6 10.9 - 14.4 % JAZMIN MELGARIUM Mean Platelet Volume 9.8 9.0 - 12.0 fL JAZMIN MELGARIUM Blood specimen (specimen) 10/28/2013 1:04 PM EST 10/28/2013 1:08 PM EST Narrative Resulting Agency Comment Spec In Lab Mayco Montanez Jr., MD HEMATOLOGY ORDERA BLES JAZMIN PETE documented in this encounter Visit Diagnoses Diagnosis Encounter for long-term (current) use of other medications DJD (degenerative joint disease) of knee Osteoarthrosis, unspecified whether generalized or localized, lower leg documented in this encounter Care Teams Clinical Laboratory Director Relationship Specialty Start Date End Date Curt Cassidy MD [address], [facility] [address] [place] [address] PCP - General 10/10/10 documented as of this encounter
--- OUTSIDE RECORDS SUMMARY | 2024-10-30 01:37 | XMS_ITS | Encounter Summary ---
Author Organization [facility] Address [facility] [place] [address] Care Team Providers Care Russet Repairer Name Role Phone Curt Cassidy MD Primary Care Provider [phone] Encounter Details Date Type Department Care Team (Late st Contact Info) Description 09/16/2013 11:40 AM EDT - 09/16/2013 11:59 PM EDT Hospital Encounter XRay at [address] [place] [address] Knee pain Social History Tobacco Use Types Packs/Day [...] Sig Dispensed Refills Start Date End Date ergocalciferol (VITAMIN D) 50,000 unit capsule 97137 unit, PO, once a month 10/23/2010 ERGOCALCIFEROL, VITAMIN D2, (VITAMIN D ORAL) Take 100,000 Units by mouth twice a week. 09/11/2013 10/21/2013 risedronate (ACTONEL) 35 mg tablet Take 1 tablet by mouth every 7 days. with a full glass of water, on empty stomach, do not take anything else by mouth or lie down for next 30 minutes. 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 60 tablet 3 06/15/2013 11/05/2013 doxycycline (VIBRA-TABS) 100 mg tabletIndications:Cellul itis and abscess of leg Take 1 tablet by mouth daily. 90 tablet 3 06/15/2013 07/22/2014 tofacitinib 5 mg TabIndications:Rheumatoi d arthritis(714.0) Take 1 tablet by mouth 2 times daily. 60 tablet 11 06/15/2013 09/21/2013 gabapentin (NEURONTIN) 300 mg capsuleIndications:Neuro jonathan Take 2 capsules by mouth 3 times daily. 90 capsule 12 07/08/2012 11/05/2013 calcium carbonate 648 mg tablet Take 650 mg by mouth 3 times daily (with meals). 11/05/2013 leflunomide (ARAVA) 20 mg tabletIndications:Rheuma toid arthritis(714.0) Take 1 tablet by mouth daily. 90 tablet 3 11/05/2011 09/21/2013 metoprolol tartrate (LOPRESSOR) 25 mg tablet Take 25 mg by mouth 2 times daily. 10/21/2013 doxepin (SINEQUAN) 50 mg capsule Take 50 [...] Priority Date/Time Associated Diagnosis Comments XR JOINT TEAM ALIGNMENT AP LAT SCHUSS SKYLINE Routine 09/16/2013 12:01 PM EDT Knee pain documented in this encounter Results * XR JOINT TEAM ALIGNMENT AP LAT SCHUSS SKYLINE (09/16/2013 12:01 PM EDT) Anatomical Region Laterality Modality N/A Radiographic Lola ging 09/16/2013 12:0 1 PM EDT Narrative 09/16/2013 1:38 PM EDT Examination JOINT TEAM STANDING ALIGNMENT AP LAT SCHUSS SKYLINE/BILAT Clinical History LEFT KNEE PAIN / RIGHT TKA Comparison AP and lateral right knee 08/11/2004. Technique Separate images of the pelvis, knees and feet were acquired in the AP projection with the patient standing. In addition to routine views of the knee, these images were stitched together to form a composite image of the pelvis and legs allowing for evaluation of lower extremity alignment in the weight bearing position. Findings On the standing alignment view, the mechanical axis is displaced few mm medially in both knees. ??On the remaining views, there is no interval change in the appearance of the right knee. ??Specifically, there is no change in the position of the femoral, tibial or patellar components of the right total knee prosthesis. ??No evidence of loosening or other complication is seen. ??In the left knee, there is tri compartmental degenerative change with lateral tilting of the patella. ??There is a suprapatellar effusion but no fracture or intraarticular loose body. Impression No evidence of hardware failure or other interval change in right knee. Tricompartmental degenerative changes in the left knee with patellar tilting and suprapatellar effusion. Mild genu varus deformity both knees. Procedure Note Rafael Mello MD - 09/16/2013 Examination JOINT TEAM STANDING ALIGNMENT AP LAT SCHUSS SKYLINE/BILAT Clinical History LEFT KNEE PAIN / RIGHT TKA Comparison AP and lateral right knee 08/11/2004. Technique Separate images of the pelvis, knees and feet were acquired in the AP projection with the patient standing. In addition to routine views of theknee, these images were stitched together to form a composite image of thepelvis and legs allowing for evaluation of lower extremity alignment in the weightbearing position. Findings On the standing alignment view, the mechanical axis is displaced few mm medially in both knees. On the remaining views, there is no intervalchange in the appearance of the right knee. Specifically, there is no change in the position of the femoral, tibial or patellar components of the right totalknee prosthesis. No evidence of loosening or other complication is seen. Inthe left knee, there is tri compartmental degenerative change with lateraltilting of the patella. There is a suprapatellar effusion but no fracture or intraarticular loose body. Impression No evidence of hardware failure or other interval change in right knee. Tricompartmental degenerative changes in the left knee with patellartilting and suprapatellar effusion. Mild genu varus deformity both knees. Jose Cunningham MD IMG DX ORDERABLES documented in this encounter Visit Diagnoses Diagnosis Knee pain Pain in joint, lower leg documented in this encounter Care Teams Russet Repairer Relationship Specialty Start Date End Date Curt Cassidy MD [address], [facility] [address] [place] [address] PCP - General 10/10/10 documented as of this encounter
--- OUTSIDE RECORDS SUMMARY | 2024-10-30 01:37 | XMS_ITS | Encounter Summary ---
Author Organization [facility] Address [facility] [place] [address] Care Team Providers Care Needle Loom Tender Name Role Phone Curt Cassidy MD Primary Care Provider [phone] Encounter Details Date Type Department Care Team (Late st Contact Info) Description 11/09/2013 Telephone [place] [phone] Mayco Montanez Jr., MD [facility] [place] [address] Social History Tobacco Use Types Packs/Day Years [...] encounter Miscellaneous Notes * Telephone Encounter - Cordelia Knight LPN - 11/09/2013 3:49 PM EST The rehab facility was called, [facility]. It was clarified with IRVING Jenkins, that the patient was d/c'd to [facility] and at this time there are no further questions. * Telephone Encounter - Cara Welsh - 11/09/2013 1:07 PM EST In the patients notes it was states that she was released to home care after her surgery but she isactually in a rehab facility. I am not sure who the rehab center is but I got a call today asking for us to change it in her record. documented in this encounter Plan of Treatment Not on file documented as of this encounter Visit Diagnoses Not on filedocumented in this encounter Care Teams Needle Loom Tender Relationship Specialty Start Date End Date Curt Cassidy MD [address], [facility] [address] [place] [address] PCP - General 10/10/10 documented as of this encounter
--- OUTSIDE RECORDS SUMMARY | 2024-10-30 01:37 | XMS_ITS | Encounter Summary ---
Author Organization [facility] Address [facility] [place] [address] Care Team Providers Care Water Restoration Technician Name Role Phone Curt Cassidy MD Primary Care Provider [phone] Reason for Visit * Reason Comments Follow-up Encounter Details Date Type Department Care Team (Late st Contact Info) Description 07/26/2014 12:30 PM EDT [place] [address] Rafael Sidhu MD [facility] [place] [address] Rheumatoid arthritis(714.0) (Primary Dx); Acute deep vein thrombosis of left lower extremity; Osteoporosis Discharge Disposition: Home Social History Tobacco Use [...] Sign Reading Time Taken Comments Blood Pressure 134/78 07/26/2014 12:30 PM EDT Pulse 96 07/26/2014 12:30 PM EDT Temperature - - Respiratory Rate 16 07/26/2014 12:30 PM EDT Oxygen Saturation - - Inhaled Oxygen Concentration - - Weight 77.1 kg (170 lb) 07/26/2014 12:30 PM EDT Height 148.6 cm (4' 10.5) 07/26/2014 12:30 PM E DT Body Mass Index 34.93 07/26/2014 12:30 PM EDT documented in this encounter Patient Instructions * Patient Instructions* Rafael Sidhu MD - 07/26/2014 12:58 PM EDT 1. Prednisone 15 mg/d 2. Start Arava/leflunomide 20 mg/d 3. Return in 3 months to assess response 4. Labs today, including INR documented in this encounter Progress Notes * Rafael Sidhu MD - 07/26/2014 12:40 PM EDT Marla Denton is a 58-year-old female seen in 6 month follow up [...] to 8 mg/kg was recommended. Interval History: Today, she reports the following issues: 1. Rheumatoid Arthritis: Started on Actemra 4 mg/kg on 11.20.2013. She has had 3 infusions, most recently 01.14.14. No apparent benefit noted. Increased to 8 mg/kg for two months, then stopped it after two doses at 8 mg/kg. She noticed no difference when she stopped it until this past month. She does not feel like there is a relationship between the Actemra and ts worsening. Her fingers are most bothersome. Having lots of pain especially in her hands, which localizes to the CMC joints. Still having chronic pain in ankles 2. Severe left knee pain TKR underwent R showing: medial DJD with lush synovitis and medialand lateral meniscal tears. Still 'stiff'. Has not had continued improvement 3. No recurrent blood clots. Still on coumadin. Needs testing. Has not seen Dr. Cassidy since April 2014. Just taking prednisone 10 mg/d. Still taking [...] osteomyelitic vs cellulitis with RA. 4. DXA ([place] 2004: -1.3 SD low at spine; 1 [...] due to left knee pain Blood pressure 134/78, pulse 96, resp. rate 16, height 148.6 cm (4' 10.5), weight 77.111 kg (170 lb).HEENT:normal. Neck decreased flexion. Shoulders: decreased abduction [...] tender to the touch. Ankles okay MTP jointssplaying and very tender. VARGAS 28 Joint Count TJC: 8 SJC 12 Patient global 8, Physician global 8. CDAI 36 up from 19 Impression: Persistent active RA who has failed every agent but with numerous comorbitidies that often confound the situation. She did not like the Actemra infusions as she has poor veins; my feelingis that most of her flare today, relative to last January is evidence of benefit that was hard for her to admit. Today, I broached the topic of sq Actemra, but she would rather get leflunomide and a bit of prednisone to control this flare. If no benefit is seen, we can try subcut Actemra or any othernovel agent that comes availabl\ Plan: 1. RA: with hypergammaglobulinemia Labs today, CBC, CMP, CRP. Increase prednisone to 15 mg/d with hope to taper. Arava 20 mg/d 2. Left knee arthritis still limiting 3. Oropharyngeal/esophageal nan: no recurrence, need to continue on increased dose of prednisone 4. INR today to montior anticoagulation 5. PTH to monitor calcium, vitamin D supplementation (was [address] Cassidy's office) 6. Copy Dr. Cassidy 7 Return 3 months Level 4 F/u visit Rafael Sidhu M.D. Staff Certified Mortician documented in this encounter Plan of Treatment Not on file documented as of this encounter Procedures Procedure Name Priority Date/Time Associated Diagnosis Comments PTH Routine 07/26/2014 1:22 PM EDT Osteoporosis HEMOGRAM Routine 07/26/2014 1:22 PM EDT Rheumatoid arthritis(714.0) DIFFERENTIAL, AUTOMATED Routine 07/26/2014 1:22 PM EDT Rheumatoid arthritis(714.0) PROTHROMBIN TIME Routine 07/26/2014 1:22 PM EDT Acute deep vein thrombosis of left lower extremity CBC (WITH DIFF) Routine 07/26/2014 1:22 PM EDT Rheumatoid arthritis(714.0) CRP, CARDIAC RISK (HS CRP) Routine 07/26/2014 1:22 PM EDT Rheumatoid arthritis(714.0) COMPREHENSIVE METABOLIC PANEL Routine 07/26/2014 1:22 PM EDT Rheumatoid arthritis(714.0) documented in this encounter Results * (ABNORMAL) Differential, Automated (07/26/2014 1:22 PM EDT) Neutrophil % 71.2(H) 34.0 - 71.0 % CERNER MILLENNIUM Neutrophil Absolute 6.66(H) 1.50 - 6.30 x10(3)/mc L CERNER MILLENNIUM Lymph % 19.3 19.0 - 53.0 % CERNER MILLENNIUM Lymphocytes Abs 1.8 1.0 - 3.6 x10(3)/mc L CERNER MILLENNIUM Monocyte % 6.6 4.0 - 13.0 % CERNER MILLENNIUM Monocyte Abs 0.6 0.2 - 1.0 x10(3)/mc L CERNER MILLENNIUM Eos % 2.6 0.0 - 7.0 % CERNER MILLENNIUM Eosinophils Abs 0.2 0.0 - 0.5 x10(3)/mc L CERNER MILLENNIUM Basophil % 0.2 0.0 - 2.0 % CERNER MILLENNIUM Baso Absolute 0.0 0.0 - 0.2 x10(3)/mc L CERNER MILLENNIUM Immature Gran % 0.10 0.00 - 0.66 % CERNER MILLENNIUM Comment: Immature granulocytes(IG's)percentage and absolute count will include metamyelocytes, myelocytes, and promyelocytes. Blood smears from CBCs yielding IG's will be scanned manually for concordance. If this scan disagrees with the automated IG or if promyelocytes are noted, a manual differential will be performed. Immature Gran Absolute 0.01 0.00 - 0.05 x10(3)/mc L CERNER MILLENNIUM Blood specimen (specimen) 07/26/2014 1:22 PM EDT 07/26/2014 1:50 PM EDT Narrative Resulting Agency Comment Spec In Lab Rafael Sidhu MD HEMATOLOGY ORDERABLE S CERNER MAYLINENNIUM * (ABNORMAL) Hemogram (07/26/2014 1:22 PM EDT) White Blood Cell 9.4 4.0 - 10.0 x10(3)/mc L CERNER MILLENNIUM Red Blood Cell 4.25 3.93 - 5.22 x10(6)/mc L CERNER MILLENNIUM Hemoglobin 12.3 11.2 - 15.7 gm/dL CERNER MILLENNIUM Hematocrit 39.0 34.0 - 45.0 % CERNER MILLENNIUM Mean Cell Volume 91.8 79.0 - 94.0 fL CERNER MILLENNIUM Mean Cell Hemoglobin 28.9 26.6 - 32.2 pg CERNER MILLENNIUM Mean Cell Hemoglobin Concentration 31.5(L) 32.0 - 36.5 gm/dL JAZMIN PETE Platelet 396(H) 145 - 370 x10(3)/mc L JAZMIN MELGARIUM RDW Standard Deviation 45.6 35.0 - 46.0 fL JAZMIN MELGARIUM RDW coefficient of variation 13.7 10.9 - 14.4 % JAZMIN MELGARIUM Mean Platelet Volume 9.7 9.0 - 12.0 fL JAZMIN PETE Blood specimen (specimen) 07/26/2014 1:22 PM EDT 07/26/2014 1:50 PM EDT Narrative Resulting Agency Comment Spec In Lab Rafael Sidhu MD HEMATOLOGY ORDERABLE S Performing Organization Address [facility] de Phone Number JAZMIN PETE * PTH (07/26/2014 1:22 PM EDT) Parathyroid Hormone 34 15 - 65 pg/mL JAZMIN PETE Blood specimen (specimen) 07/26/2014 1:22 PM EDT 07/26/2014 1:49 PM EDT Narrative Resulting Agency Comment Spec In Lab Rafael Sidhu MD CHEMISTRY ORDERABLES Performing Organization Address [facility] de Phone Number JAZMIN PETE * (ABNORMAL) Prothrombin Time (07/26/2014 1:22 PM EDT) Prothrombin Time 30.6(H) 12.5 - 15.5 sec JAZMIN PETE Comment: [facility] Transfusion Committee Guidelines: INR less than 2.0, PTT less than OR equal to 43.5 seconds, or Fibrinogen greater than or equal to 100 mg/dl indicate adequate procoagulant activity for hemostasis in patients without underlying bleeding disorders. International Normalization Ratio 2.7(H) 0.9 - 1.1 JAZMIN PETE Blood specimen (specimen) 07/26/2014 1:22 PM EDT 07/26/2014 1:49 PM EDT Narrative Resulting Agency Comment Spec In Lab Rafael Sidhu MD HEMATOLOGY ORDERABLE S Performing Organization Address [facility] de Phone Number [facility] * High Sensitivity CRP (07/26/2014 1:22 PM EDT) Pathologist [facility] C-Reactive Protein High Sensitivity 57.0 mg/L [facility] Comment: Interpretations: 1) For accurate cardiac risk [...] prevention. ??Circulation 2003; [id number] Blood specimen (specimen) 07/26/2014 1:22 PM EDT 07/26/2014 1:49 PM EDT Narrative Resulting Agency Comment Spec In Lab Rafael Sidhu MD CHEMISTRY ORDERABLES Performing Organization Address [facility] Co de Phone Number [facility] * (ABNORMAL) Comprehensive metabolic panel (non-fasting) (07/26/2014 1:22 PM EDT) [facility] Glucose 152 60 - 199 mg/dL [facility] [employer] Comment:Diabetes: >=200 mg/d L plus symptoms Blood Urea Nitrogen 8 8 - 18 mg/dL [facility] Creatinine 0.81 0.70 - 1.20 mg/dL [facility] Comment: Please note that the pediatric reference intervals supplied above were not validated at [facility]. Results from pediatric patients should be interpreted in conjunction to the patient's age, height and muscle mass. Sodium 135 135 - 145 mmol/L [facility] Potassium 3.9 3.5 - 5.0 mmol/L CERNER MILLENNIUM Comment: Please note: ??Patients with WBC >100,000 may have falsely elevated Potassium levels. ??For accurate Potassium quantification in these patients send serum separator tube (gold top) for subsequent determinations. ??Contact the Clinical Chemistry Laboratory if there are any questions. Chloride 96(L) 98 - 107 mmol/L CERNER MILLENNIUM Carbon Dioxide 29 22 - 31 mmol/L CERNER MILLENNIUM Anion Gap 10 5 - 15 mmol/L CERNER MILLENNIUM Calcium 9.5 8.5 - 10.5 mg/dL CERNER MILLENNIUM Protein, Total 8.6(H) 6.4 - 8.3 gm/dL CERNER MILLENNIUM Albumin 3.7 3.2 - 5.2 gm/dL CERNER MILLENNIUM Aspartate Aminotransferase 17 0 - 30 unit/L CERNER MILLENNIUM Alanine Aminotransferase 12 0 - 30 unit/L CERNER MILLENNIUM Alkaline Phosphatase 114(H) 40 - 104 unit/L CERNER MILLENNIUM Bilirubin, [...] the following links into your internet browser. [email or web address] Blood specimen (specimen) 07/26/2014 1:22 PM EDT 07/26/2014 1:49 PM EDT Narrative Resulting Agency Comment Spec In Lab Rafael Sidhu MD CHEMISTRY ORDERABLES [facility] [employer] documented in this encounter Visit Diagnoses Diagnosis Rheumatoid arthritis(714.0)- Primary Rheumatoid arthritis Acute deep vein thrombosis of left lower extremity Acute venous embolism and thrombosis of unspecified deep vessels of lower extremity Osteoporosis Osteoporosis, unspecified documented in this encounter Care Teams Water Restoration Technician Relationship Specialty Start Date End Date Curt Cassidy MD [address] [place] [address] PCP - General 10/10/10 documented as of this encounter
--- OUTSIDE RECORDS SUMMARY | 2024-10-30 01:37 | XMS_ITS | Encounter Summary ---
Author Organization [facility] Address [facility] [place] [address] Care Team Providers Care Search Advertising Strategist Name Role Phone Curt Cassidy MD Primary Care Provider [phone] Reason for Visit * Reason Comments Left Knee Pain 11/02/2013 L TKR Encounter Details Date Type Department Care Team (Late st Contact Info) Description 12/07/2013 12:40 PM EST Office [place] [address] Zaki Carvajal PA [facility] [place] [address] Total knee replacement status, left Discharge Disposition: Home Social [...] Sign Reading Time Taken Comments Blood Pressure 117/65 12/07/2013 1:05 PM EST Pulse 82 12/07/2013 1:05 PM EST Temperature - - Respiratory Rate - - Oxygen Saturation - - Inhaled Oxygen Concentration - - Weight 77.1 kg (170 lb) 12/07/2013 1:05 PM EST Height 149.9 cm (4' 11) 12/07/2013 1:05 PM EST Body Mass Index 34.34 12/07/2013 1:05 PM EST documented in this encounter Progress Notes * Zaki Carvajal - 12/07/2013 1:55 PM EST Subjective: Patient ID: Marla Denton is a 58 y.o. female. SURGERY DATE: 02/02/2004 Actual Procedures: TOTAL KNEE REPLACEMENT /RT/PFC STABILZED MODULAR Post Op Diagnosis: MILD DJD RT KNEE/RA MARKED SYNOVITIS WITH SOME RICE BODIES Case Date: 11/02/2013 Postoperative diagnosis: Rheu. Arth. with DJD and meniscal tear, Pat fem arthritis Procedure(s): @TOTAL KNEE ARTHROPLASTY MODIFIER PFC STABILIZED FIXED MODULAR DEPUY Anesthesia: Spinal Findings: medial DJD with lush synovitis and medial and lateral meniscal tears HPI This is a 58yo female here for knee pain. On 03 DEC 2013 noticed more pain to left knee. Denies any changed of activities or injuries. Admits to having RA , and that her elbows were hurting more. Has been working with visiting therapist,3 times a week. Patient lives with daughter, and patient does not drive. Denies any fevers or redness. Feels there is lost of motion. Had been walking with cane, but now the walker since the new pain. Social history: lives with daughter. Nonsmoker Patient Active Problem List Diagnosis Code ??? Seronegative rheumatoid arthritis 714.0 ??? Edema leg 782.3 ??? Cellulitis of leg, right 682.6 ??? 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 MRSA (methicillin resistant Staphylococcus aureus) infection 041.12 ??? RA (rheumatoid arthritis) 714.0 ??? DJD (degenerative joint disease) of knee 715.96 ??? Internal derangement of knee 717.9 ??? Encounter for long-term (current) use of other medications V58.69 ??? Lateral epicondylitis of elbow 726.32 ??? Orthopnea 786.02 ??? Unspecified essential hypertension 401.9 ??? Unspecified hypothyroidism 244.9 ??? Rheumatoid arthritis 714.0 ??? Pain in joint, shoulder region 719.41 ??? Osteoporosis, unspecified 733.00 ??? Unspecified vitamin D deficiency 268.9 ??? Other pulmonary embolism and infarction 415.19 ??? Other dyspnea and respiratory abnormality 786.09 ??? Abnormal weight gain 783.1 ??? Cervicalgia 723.1 ??? Pain in limb 729.5 ??? Encounter for long-term (current) use of anticoagulants V58.61 ??? Left TKA 11/02 V43.65 ??? Chronic pain 338.29 ??? Total knee replacement status, left V43.65 Review of Systems Objective: Physical Exam 4'11 170lbs RIGHT KNEE EXAM Appears comfortable Arrives in wheelchair/ due to long distance walking required here at [facility] Incision is well healed Mild distal incision with fading brown ecchymosis. Calf is soft and nontender Pulses diminished I have made the following determinations: Post Op Right Knee Exam: Gait Abnormality: Antalgic Knee ROM: Extension:5 Flexion: 90 Alignment: 0-4 degrees Valgus Stability: A/P Translation <5mm. Varus (lateral stability)<5mm Valgus (medial stability) <5mm Extension La degrees or less Patella Tracking: Normal Pulses Palpable: Right PT: Yes Right DP:Yes Motor/Sensory: Distal Motor: Normal Distal Sensory: Normal Quadriceps Strength: 4 Able to transfer with use of hands. Balance is poor. IMAGES REVIEWED INDEPENDENTLY Post TKA /components in good position Assessment and Plan: S/P RIght TKA/ x 5 weeks We discussed her exam, xrays and recommendations. Will continue with therapy, patella mobility, ROMexercises through out the day. Ice post activities, pace self with prolong walking activities. Will f/u in 3-[address] Montanez or myself. documented in this encounter Plan of Treatment Not on file documented as of this encounter Visit Diagnoses Diagnosis Total knee replacement status, left documented in this encounter Care Teams Search Advertising Strategist Relationship Specialty Start Date End Date Curt Cassidy MD [address] [facility] [place] [address] PCP - General 10/10/10 documented as of this encounter
--- OUTSIDE RECORDS SUMMARY | 2024-10-30 01:37 | XMS_ITS | Encounter Summary ---
Author Organization [facility] Address [facility] [place] [address] Care Team Providers Care Chief Of Police Name Role Phone Curt Cassidy MD Primary Care Provider [phone] Reason for Visit * Reason Comments Medication Refill Encounter Details Date Type Department Care Team (Late st Contact Info) Description 01/04/2014 Refill [place] [address] Rafael Sidhu MD [facility] [place] [address] Social History Tobacco Use Types Packs/Day Years [...] on filedocumented in this encounter Care Teams Chief Of Police Relationship Specialty Start Date End Date Curt Cassidy MD [address] [facility], [facility] [address] [place] [address] PCP - General 10/10/10 documented as of this encounter
--- OUTSIDE RECORDS SUMMARY | 2024-10-30 01:37 | XMS_ITS | Encounter Summary ---
Author Organization [facility] Address [facility] [place] [address] Care Team Providers Care Human Resources Specialist Name Role Phone Curt Cassidy MD Primary Care Provider [phone] Encounter Details Date Type Department Care Team (Latest Contact Info) Description 10/28/2013 11:20 AM EST Clinical Support Same Day at [facility] [place] [phone] DJD (degenerative joint disease) of knee Social [...] Taken Comments Blood Pressure - - Pulse 103 10/28/2013 11:05 AM EST Temperature - - Respiratory Rate - - Oxygen Saturation 95% 10/28/2013 11:05 AM EST Inhaled Oxygen Concentration - - Weight 74.8 kg (165 lb) 10/28/2013 11:05 AM EST Height 149.9 cm (4' 11) 10/28/2013 11:05 AM EST Body Mass Index 33.33 10/28/2013 11:05 AM EST documented in this encounter Progress Notes * Jaswinder North, RN - 10/28/2013 11:32 AM EST PAT questionnaire reviewed with patient while in pre-admission testing. Pre- operative teaching folder reviewed with patient ~ expresses good understanding of all information reviewed. Pt has had multiple procedures with general anesthesia and no problems in the most recent surgeries here at [facility]. Blood work, T&S, urine and EKG today for OR with Lisseth on 11/02. Per pt her last dose of coumadinwas 10/27 and she is to start lovenox bridge on 10/29. documented in this encounter Plan of Treatment Not on file documented as of this encounter Procedures Procedure Name Priority Date/Time Associated Diagnosis Comments EKG 12-LEAD Routine 10/28/2013 11:52 AM EST DJD (degenerative joint disease) of knee documented in this encounter Results * EKG 12 Lead (10/28/2013 11:52 AM EST) Ventricular rate 89 BPM MUSE SYSTEM Atrial Rate 89 BPM MUSE SYSTEM P-R Interval 142 ms MUSE SYSTEM QRS Duration 88 ms MUSE SYSTEM Q-T Interval 356 ms MUSE SYSTEM QTC Calculated (Bezet) 433 ms MUSE SYSTEM Calculated P [place] 67 degrees MUSE SYSTEM Calculated R [place] 7 degrees MUSE SYSTEM Calculated T [place] 22 degrees MUSE SYSTEM INTERPRETATION Normal sinus rhythm Poor R-wave progression Abnormal ECG When compared with ECG of 28-SEP-1999 19:48, No significant change was found Confirmed by MD Princess, Jude ([id number]) on 10/28/2013 6:11:10 PM MUSE SYSTEM 10/28/2013 11:5 2 AM EST 10/28/2013 6:11 PM EST Mayco Montanez Jr., MD ECG ORDERABLES MUSE SYSTEM documented in this encounter Visit Diagnoses Diagnosis DJD (degenerative joint disease) of knee Osteoarthrosis, unspecified whether generalized or localized, lower leg documented in this encounter Care Teams Human Resources Specialist Relationship Specialty Start Date End Date Curt Cassidy MD [address] [facility], [facility] [address] [place] [address] PCP - General 10/10/10 documented as of this encounter
--- OUTSIDE RECORDS SUMMARY | 2024-10-30 01:37 | XMS_ITS | Encounter Summary ---
Author Organization [facility] Address [facility] [place] [address] Care Team Providers Care Industrial Relations Counselor Name Role Phone Curt Cassidy MD Primary Care Provider [phone] Encounter Details Date Type Department Care Team (Late st Contact Info) Description 10/01/2013 [place] [phone] Mayco Montanez Jr., MD [facility] [place] [address] Social History Tobacco Use Types Packs/Day Years Used Date Smoking Tobacco: Never Alcohol Use Standard Drinks/Week Comments Not Asked 0 (1 standard drink = 0.6 oz pur e alcohol) Sex and Gender Information Value Date Recorded Sex Assigned at Not on file Gender Identity Not on file Sexual Orientation Not on file documented as of this encounter Miscellaneous Notes * Telephone Encounter - Kathi Wisdom LPN - 10/01/2013 2:27 PM EST Reviewed results with Marla over the phone per Dr. Montanez. He suggested that Arthroscopic repair may be of benefit for her knee pain. At this point she is a bit reluctant to schedule surgery until she touches base with her PCP. I encouraged her to do that and call back when she is ready to move forward with surgical repair. * Telephone Encounter - Lina Landers - 10/01/2013 11:51 AM EST Patient had an MRI on 09/21/13. She would like to know the results. Please call her at [phone]. documented in this encounter Plan of Treatment Not on file documented as of this encounter Visit Diagnoses Not on filedocumented in this encounter Care Teams Industrial Relations Counselor Relationship Specialty Start Date End Date Curt Cassidy MD [address], [facility] 3 [place] [address] PCP - General 10/10/10 documented as of this encounter
--- OUTSIDE RECORDS SUMMARY | 2024-10-30 01:37 | XMS_ITS | Encounter Summary ---
Author Organization [facility] Address [facility] [place] [address] Care Team Providers Care Steam Cleaner Name Role Phone Curt Cassidy MD Primary Care Provider Encounter Details Date Type Department Care Team (Latest Contact Info) Description 09/21/2013 1:22 PM EST - 09/21/2013 11:59 PM EST Hospital [place] [address] CLINIC, Mayco Duque Jr., MD [facility] [place] [address] Internal derangement of knee Discharge Disposition: Home [...] Date ergocalciferol (VITAMIN D) 50,000 unit capsule 15890 unit, PO, once a month 10/23/2010 ERGOCALCIFEROL, [...] 3 06/15/2013 07/22/2014 gabapentin (NEURONTIN) 300 mg capsuleIndications:Neuro jonathan Take 2 capsules by mouth 3 times daily. 90 capsule 12 07/08/2012 11/05/2013 calcium carbonate 648 mg tablet Take 650 mg by mouth 3 times daily (with meals). 11/05/2013 metoprolol tartrate (LOPRESSOR) 25 mg tablet Take [...] 10/23/2010 11/05/2013 documented as of this encounter Miscellaneous Notes * Miscellaneous - Provider, Scanning - 2013 9:04 AM EST documented in this encounter Plan of Treatment Not on file documented as of this encounter Procedures Procedure Name Priority Date/Time Associated Diagnosis Comments MRI KNEE WO CONTRAST Routine 09/21/2013 2:47 PM EST Internal derangement of knee documented in this encounter Results * MRI knee WO [...] Pronounced fusiform expansion of the ACL by [id number] material with attenuation of fibers compatible with [...] Small to moderate joint effusion with synovitis. MD BRY Carrillo Jr. MRI ORDERABLE S documented in this encounter Visit Diagnoses Diagnosis Internal derangement of knee Unspecified internal derangement of knee documented in this encounter Care Teams Steam Cleaner Relationship Specialty Start Date End Date Curt Cassidy MD [address], [facility] 3 [place] [address] PCP - General 10/10/10 documented as of this encounter
--- OUTSIDE RECORDS SUMMARY | 2024-10-30 01:37 | XMS_ITS | Encounter Summary ---
Author Organization [facility] Address [facility] [place] [address] Care Team Providers Care Speck Dyer Name Role Phone Curt Cassidy MD Primary Care Provider [phone] Encounter Details Date Type Department Care Team (Late st Contact Info) Description 10/23/2013 Telephone [place] [phone] Mayco Montanez Jr., MD [facility] [place] [address] Social History Tobacco Use Types Packs/Day Years Used Date Smoking Tobacco: Never Alcohol Use Standard Drinks/Week Comments Not Asked 0 (1 standard drink = 0.6 oz pur e alcohol) Sex and Gender Information Value Date Recorded Sex Assigned at Not on file Gender Identity Not on file Sexual Orientation Not on file documented as of this encounter Miscellaneous Notes * Telephone Encounter - Rosetta Sheehan - 10/26/2013 11:12 AM EST I have talked with Marla and have scheduled her surgery for her. She is aware. * Telephone Encounter - Amina Weber RN - 10/26/2013 10:06 AM EST Patient did not get the pre operative Hibiclenz, or Mupirocin. Reviewed process with patient over the phone. Mailed directions and called prescription. Patient is on Coumadin. PCP is managing the bridge. * Telephone Encounter - Lina Landers - 10/23/2013 12:19 PM EST Patient would like to schedule her surgery. Orders are in. Please call her at [phone]. documented in this encounter Plan of Treatment Not on file documented as of this encounter Visit Diagnoses Diagnosis Pre-op examination- Primary Preoperative examination, unspecified documented in this encounter Care Teams Speck Dyer Relationship Specialty Start Date End Date Curt Cassidy MD [address] [facility], [address] [address] PCP - General 10/10/10 documented as of this encounter
--- OUTSIDE RECORDS SUMMARY | 2024-10-30 01:37 | XMS_ITS | Encounter Summary ---
Author Organization [facility] Address [facility] [place] [address] Care Team Providers Care Cupola Operator Insulation Name Role Phone Curt Cassidy MD Primary Care Provider [phone] Reason for Visit * Reason Comments Left Knee Pain question about surge ry Encounter Details Date Type Department Care Team (Late st Contact Info) Description 10/21/2013 3:45 PM EST Office [place] [address] Mayco Montanez Jr., MD [facility] [place] [address] Encounter for long-term (current) use of other medications; Internal derangement of knee; DJD (degenerative joint disease) of knee Discharge [...] Sign Reading Time Taken Comments Blood Pressure 133/89 10/21/2013 4:47 PM EST Pulse 101 10/21/2013 4:47 PM EST Temperature - - Respiratory Rate 20 10/21/2013 4:47 PM EST Oxygen Saturation - - Inhaled Oxygen Concentration - - Weight 78.5 kg (173 lb) 10/21/2013 4:47 PM EST Height 151.1 cm (4' 11.5) 10/21/2013 4:47 PM ES T Body Mass Index 34.36 10/21/2013 4:47 PM EST documented in this encounter Progress Notes * Mayco Montanez Jr., MD - 10/22/2013 12:27 PM EST Patient Active Problem List Diagnosis Date Noted ??? Encounter for long-term (current) use of other medications 10/22/2013 ??? DJD (degenerative joint disease) of knee 09/16/2013 ??? Internal derangement of knee 09/16/2013 ??? RA (rheumatoid arthritis) 05/31/2011 ??? Edema leg 02/01/2011 ??? Cellulitis of leg, right 02/01/2011 ??? Popliteal cyst 02/01/2011 ??? MRSA (methicillin resistant Staphylococcus aureus) infection 02/01/2011 ??? Seronegative rheumatoid arthritis I have made the following determinations: Knee Exam: Left Prior surgery on this joint: No Gait Abnormality: Antalgic Knee ROM: Extension:10 Flexion: 65 Alignment: 0-4 degrees Valgus Stability: A/P Translation <5mm Varus (lateral stability) <5mm Valgus (medial stability) <5mm Extension La degrees or less Radiographic evidence of joint damage: [0= normal; 1=minimal ; 2= some osteophytes , some narrowing ; 3= moderate osteophytes, significantnarrowing, mild deformity; 4= large osteophytes, marked narrowing, obvious deformity]: 1= minimal Patella Tracking: Abnormal Skin Integrity: Normal Pulses Palpable: Left PT:Yes Left DP:Yes Motor/Sensory: Distal Motor:Normal Distal Sensory: Normal Quadriceps Strength:4 PROBLEM: Followup MRI scan for left knee pain. Marla is a patient who previously had symptoms in her right knee, she has rheumatoid arthritis, she has some chronic pain issues and her right knee was treated with an arthroscopy, debridement of torn meniscus, improved for about two years, but then she went onto joint replacement. She presented a little over a month ago with increasing symptoms in her left knee consistent with a meniscal tear with a positive Steinmann test, positive Brian's, medial joint line pain, but she also has peripatellar pain, pain with going up and down stairs, and we discussed options of treatment. We obtained an MRI scan and the reading as listed above. With that MRI scan, we have hoped to identify an isolated meniscal tear that could be aided by arthroscopy. She comes asking questions about a lateral release because she has spoken with Hiwot Waite and the patellar symptoms created this of were of a lateral release plus arthroscopy. I had a long discussion with the patient, I have not found lateral release a particularly effective procedure. She has marked synovitis. 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 That will deal with the patellofemoral symptoms, it will deal with some of the synovitis, and we will add another joint and it will be a more substantial procedure, the risks should be minimal. She is a Jehovah's witness and will refuse blood, but her recent hematocrit was 40 to 42. She has previously had clots, we are likely to try and do a bridge. She will have to come off her Coumadin for the case. She will discuss that with Dr. Cassidy. We will try tranexamic acid, which maybe contraindicated for people who have had clots, but in her situation where bleeding would be a tremendous risk, I think the balance with her on a bridge will be my best guess, at the most appropriate treatment. She is clear that she would rather than receive blood and made sure that was correctly represented in her consent. She otherwise signed the consent for total knee replacement on her left knee. We would plan to use a posterior stabilized prosthesis and match the rotating platform that she has on the opposite side. We have used a fixed platform, size 2 tibial tray. She had lots of rice bodies at the last time using 8 mm polyethylene liner. CC: Curt Cassidy MD Reviewed risks for the procedure including bleeding, infection, scar formation, patellar dislocation, persistent pain or stiffness, bursitis, failure, loosening, wear of implants, implant malposition, fracture of bone, blood vessel injury, clot formation or embolus, stroke, nerve or vascular injury, RI, stroke, or . Reviewed 3 days in the hospital, rehab or home with PT, precautions for dislocation, and methods ofpain control. Reviewed hibiclens wash the day before and morning of surgery, mupurocin use and protection of skin from injury. Consent signed. documented in this encounter Plan of Treatment Not on file documented as of this encounter Procedures Procedure Name Priority Date/Time Associated Diagnosis Comments TOTAL KNEE ARTHROPLASTY Routine 10/22/20 13 7:28 AM EST DJD (degenerative joint disease) of [...] Mayco Montanez Jr., MD IMG DX ORDERABLES * (ABNORMAL) Urinalysis with microscopic (10/28/2013 1:15 [...] Urine Dipstick Hazy(A) Clear CERNER MILLENNIUM Specific [place] Urine Automated 1.007 1.002 - 1.030 CERNER [...] Jr., MD URINE ORDERABLES CERNER MILLENNIUM * Basic Metabolic Panel (non-fasting) (10/28/2013 1:04 PM EST) Glucose 85 60 - 199 mg/dL CERNER MILLENNIUM Comment:Diabetes: >=200 mg/d L plus symptoms Blood Urea Nitrogen 11 8 - 18 mg/dL CERNER MILLENNIUM Creatinine 0.83 0.70 - 1.20 mg/dL CERNER MILLENNIUM Comment: Please note that the pediatric reference intervals supplied above were not validated at [facility]. Results from pediatric patients should be interpreted [...] Mayco Montanez Jr., MD CHEMISTRY ORDERAB LES Performing Organization Address [facility] Co de Phone Number CERNER MILLENNIUM * (ABNORMAL) CBC (with Diff) (10/28/2013 1:04 [...] Platelet 281 145 - 370 x10(3)/mc L CERNER MILLENNIUM RDW Standard Deviation 46.0 35.0 - 46.0 fL CERNER MILLENNIUM RDW coefficient of variation 13.6 10.9 - 14.4 % CERNER MILLENNIUM Mean Platelet Volume 9.8 9.0 - 12.0 fL CERNER MILLENNIUM Blood specimen (specimen) 10/28/2013 1:04 PM EST 10/28/2013 1:08 PM EST Narrative Resulting Agency Comment Spec In Lab Mayco Montanez Jr., MD HEMATOLOGY ORDERA BLES Performing Organization Address [facility]/ZIP Co de Phone Number [employer] * EKG 12 Lead (10/28/2013 11:52 AM EST) Ventricular rate 89 BPM MUSE SYSTEM Atrial Rate 89 BPM MUSE SYSTEM P-R Interval 142 ms MUSE SYSTEM QRS Duration 88 ms MUSE SYSTEM Q-T Interval 356 ms MUSE SYSTEM QTC Calculated (Bezet) 433 ms MUSE SYSTEM Calculated P [place] 67 degrees MUSE SYSTEM Calculated R [place] 7 degrees MUSE SYSTEM Calculated T [place] 22 degrees MUSE SYSTEM INTERPRETATION Normal sinus [...] for long-term (current) use of other medications Internal derangement of knee Unspecified internal derangement of knee DJD (degenerative joint disease) of knee Osteoarthrosis, unspecified whether generalized or localized, lower leg DJD (degenerative joint disease) of knee Osteoarthrosis, unspecified whether generalized or localized, lower leg documented in this encounter Care Teams Cupola Operator Insulation Relationship Specialty Start Date End Date Curt Cassidy MD [address] [facility], [address] [address] PCP - General 10/10/10 documented as of this encounter
--- OUTSIDE RECORDS SUMMARY | 2024-10-30 01:38 | XMS_ITS | Encounter Summary ---
Author Organization [facility] Address [facility] [address] [place] [address] Care Team Providers Care Shag Truck Driver Name Role Phone Curt Cassidy MD Primary Care Provider [phone] Encounter Details Date Type Department Care Team (Late st Contact Info) Description 02/03/2013 Orders [place] [address] Sebastian Loyd MD [facility] [place] [address] Social History Tobacco Use Types Packs/Day Years [...] Associated Diagnosis Comments FILM LIBRARY STORAGE ONLY MR ANKLE Routine 02/03/2013 10:45 AM EDT documented in this encounter Results * Film Library- Storage only MR Ankle (02/03/2013 10:45 AM EDT) 02/03/2013 10:4 5 AM EDT Narrative RAD - 03/24/2014 7:03 PM EDT This is a non-reportable exam. Procedure Note Miguel Angel Erickson - 03/24/2014 This is a non-reportable exam. Sebastian Loyd MD [facility] FILM LIBRARY ORD ERABLES RAD [address] [facility] [place] [address] documented in this encounter Visit Diagnoses Not on filedocumented in this encounter Care Teams Shag Truck Driver Relationship Specialty Start Date End Date Curt Cassidy MD [address], [facility] [address] [place] [address] PCP - General 10/10/10 documented as of this encounter
--- OUTSIDE RECORDS SUMMARY | 2024-10-30 01:38 | XMS_ITS | Encounter Summary ---
Author Organization [facility] Address [facility] [place] [address] Care Team Providers Care Corporate Webmaster Name Role Phone Curt Cassidy MD Primary Care Provider Encounter Details Date Type Department Care Team (Late st Contact Info) Description 02/05/2013 External Results XRay at [address] [place] [address] Provider, Scanning Social History Tobacco Use Types Packs/Day Years [...] Procedure Name Priority Date/Time Associated Diagnosis Comments MRI/MRA SCAN Routine 02/03/2013 DIAGNOSTIC RADIOLOGY SCAN Routine 02/01/2013 MRI/MRA SCAN Routine 01/31/2013 DIAGNOSTIC RADIOLOGY SCAN Routine 01/31/2013 documented in this encounter Results * Scan Doc: MRI/MRA (02/03/2013) Anatomical Region Laterality Modality Other Scanning Provider MEDIA MGR SCAN EXT O RDR/RSLT * Scan Doc: Diagnostic Radiology (02/01/2013) Anatomical Region Laterality Modality Other Scanning Provider MEDIA MGR SCAN EXT O RDR/RSLT * Scan Doc: Diagnostic Radiology (01/31/2013) Anatomical Region Laterality Modality Other Scanning Provider MEDIA MGR SCAN EXT O RDR/RSLT * Scan Doc: MRI/MRA (01/31/2013) Anatomical Region Laterality Modality Other Narrative 01/31/2013 A scan was deleted from the Results section by Hardik Coppola [LAMINE] on 02/05/2013 at ??8:13 PM (File: [id number]) Scanning Provider MEDIA MGR SCAN EXT O RDR/RSLT documented in this encounter Visit Diagnoses Not on filedocumented in this encounter Care Teams Corporate Webmaster Relationship Specialty Start Date End Date Curt Cassidy MD [address] [facility], [place] [address] PCP - General 10/10/10 documented as of this encounter
--- OUTSIDE RECORDS SUMMARY | 2024-10-30 01:38 | XMS_ITS | Encounter Summary ---
Author Organization [place] [address] Care Team Providers Care Structural Metal Fabricator Apprentice Name Role Phone Curt Cassidy MD Primary Care Provider [phone] Reason for Visit * Reason Onset Date Comments Prior Authorization 06/19/2013 MEDICATION T OFACITINIB APPROVED Encounter Details Date Type Department Care Team (Late st Contact Info) Description 06/19/2013 [place] [phone] Corine Olvera Prior Authorization (MEDICATION TOFACITINIB APPROVED) Social History Tobacco Use Types Packs/Day Years Used Date Smoking Tobacco: Never Alcohol Use Standard Drinks/Week Comments Not Asked 0 (1 standard drink = 0.6 oz pur e alcohol) Sex and Gender Information Value Date Recorded Sex Assigned at Not on file Gender Identity Not on file Sexual Orientation Not on file documented as of this encounter Miscellaneous Notes * Telephone Encounter - Corine Olvera - 06/19/2013 12:17 PM EDT Medication Prior Authorization DR ACOSTA Medication name/dose/directions: TOFACITINIB 5MG TAKE 1 TABLET BY MOUTH 2 TIMES DAILY Rationale for request: RA Health plan: [place] [employer] Authorizing account manager sales representative name: LUCERO Faxed to health plan on: 06/19/13 Health plan decision: Approved Quantity approved: 60 Authorization number: Start date: 06/19/13 End date: 09/19/13 Patient notified? yes Pharmacy notified? yes documented in this encounter Plan of Treatment Not on file documented as of this encounter Visit Diagnoses Not on filedocumented in this encounter Care Teams Structural Metal Fabricator Apprentice Relationship Specialty Start Date End Date Curt Cassidy MD [address], [facility] [address] [place] [address] PCP - General 10/10/10 documented as of this encounter
--- OUTSIDE RECORDS SUMMARY | 2024-10-30 01:38 | XMS_ITS | Encounter Summary ---
Author Organization [facility] Address [address] [place] [address] Care Team Providers Care Hop Grower Name Role Phone Unknown, Provider Primary Care Provider Darryl chong Encounter Details Date Type Department Care Team (Late st Contact Info) Description 01/08/2022 Lab Requisition [facility] Pathology & Laboratory Medicine - [facility] [address], [place] [id number] Outr Resulting Lab, Provider Social History Tobacco Use Types Packs/Day Years Used Date Smoking Tobacco: Never Assessed Comments Unknown Sex and Gender Information Value Date Recorded Sex Assigned at Not on file Legal Sex Female 18:06 EDT Gender Identity Not on file Sexual Orientation Not on file documented as of this encounter Plan of Treatment Not on file documented as of this encounter Procedures Procedure Name Priority Date/Time Associated Diagnosis Comments SPEP, INCLUDES QUANTITATION OF MONOCLONAL SPIKE PERFORMABLE Today 01/08/2022 12:30 EST ANTI NUCLEAR AB (GORDY), IFA Routine 01/08/2022 12:30 EST SPEP, INCLUDES QUANTITATION OF MONOCLONAL SPIKE Routine 01/08/2022 12:30 EST PROTEIN, TOTAL Today 01/08/2022 12:30 EST documented in this encounter Results * SPEP, INCLUDES QUANTITATION OF MONOCLONAL SPIKE PERFORMABLE (01/08/2022 12:30 EST) Albumin % 58.1 55.8 - 66.1 % 01/09/2022 13:28 EST [facility] Alpha-1 % 4.6 2.9 - 4.9 % 01/09/2022 13:28 EST [facility] Alpha-2 % 10.3 7.1 - 11.8 % 01/09/2022 13:28 [facility] Beta % 10.3 8.4 - 13.1 % 01/09/2022 13:28 [facility] Gamma % 16.7 11.1 - 18.8 % 01/09/2022 13:28 [facility] SPEP Comment No apparent monoclonal protein seen on serum electrophoresis 01/09/2022 13:28 [facility] Comment:See scanned/suppleme ntary report. Total Protein 7.2 6.3 - 8.2 g/dL 01/09/2022 13:28 [facility] Blood VENOUS BLOOD / Unknown 01/08/2022 12:30 EST 01/08/2022 21:41 EST us Provider Outr Resulting Lab CHEMISTRY & BLOOD GA S ORDERABLES Final Result Performing Organization Address [facility] de Phone Number [facility] [address] [place] [phone] * PROTEIN, TOTAL (01/08/2022 12:30 EST) Blood VENOUS BLOOD / Unknown 01/08/2022 12:30 EST 01/08/2022 21:41 EST us Provider Outr Resulting Lab CHEMISTRY & BLOOD GA S ORDERABLES Final Result Performing Organization Address [facility] Co de Phone Number [facility] [address] [place] [phone] * (ABNORMAL) ANTI NUCLEAR AB (GORDY), IFA (01/08/2022 12:30 EST) GORDY Interpretation Positive(A) Negative 01/09/2022 14:25 [facility] Comment: For titers greater than or equal to 1:160 (except the centromere and nucleolar patterns) it is recommended that specific follow-up autoantibody testing ??(such as for dsDNA and Extractable Nuclear Antigens) be performed on all diffuse and/or speckled patterns NOTE: For add-on testing dsDNA is stable for 7 days refrigerated while Extractable Nuclear Antigens are only stable for 48 hours refrigerated. Cytoplasmic Pattern Noted, Speckled GORDY Titer and Pattern 1 1:320 Homogeneous 01/09/2022 14:25 EST [facility] Blood VENOUS BLOOD / Unknown 01/08/2022 12:30 EST 01/08/2022 21:41 EST Narrative [facility] - 01/09/2022 14:25 EST Results were obtained with the [employer] NOVA Lite HEp-2 GORDY Kit by indirect immunofluorescence. us Provider Outr Resulting Lab IMMUNOLOGY AND SEROL OGY ORDERABLES Final Result [facility] [address] [place] [address] documented in this encounter Visit Diagnoses Not on filedocumented in this encounter Care Teams Hop Grower Relationship Specialty Start Date End Date Unknown, Provider, PCP - General 12/19/21 documented as of this encounter
--- OUTSIDE RECORDS SUMMARY | 2024-10-30 01:38 | XMS_ITS | Encounter Summary ---
Author Organization [place] [address] Care Team Providers Care Dermatology Procedural Physician Name Role Phone Curt Cassidy MD Primary Care Provider [phone] Reason for Visit * Reason Comments IV Medication Encounter Details Date Type Department Care Team (Late st Contact Info) Description 10/01/2011 10:07 AM EST - 10/01/2011 11:59 PM EST Hospital Encounter [place] [address] CLINIC, Curt Lopez MD [address] [place] [address], [address] [address] RA (rheumatoid arthritis) (Primary Dx) Discharge Disposition: Home Social History [...] Sign Reading Time Taken Comments Blood Pressure 147/79 10/01/2011 10:20 AM EST Pulse 86 10/01/2011 10:20 AM EST Temperature 36.1 ??C (97 ??F) 10/01/2011 10:20 AM EST Respiratory Rate 16 10/01/2011 10:20 AM EST Oxygen Saturation 99% 10/01/2011 10:20 AM EST Inhaled Oxygen Concentration - - Weight - - Height - - Body Mass Index - - documented in this encounter Medications at Time of Discharge Medication Sig Dispensed Refills Start Date End Date ergocalciferol (VITAMIN D) 50,000 unit capsule 81709 unit, PO, once a month 10/23/2010 predniSONE (DELTASONE) 5 mg tabletIndications:Rheum atoid arthritis(714.0) Take by mouth. 1.5 tablets daily 120 tablet 12 05/14/2011 05/14/2012 levothyroxine (SYNTHROID) 125 mcg tablet Take 125 mcg by mouth daily. 11/05/2011 metoprolol tartrate (LOPRESSOR) 25 mg tablet Take 25 mg by mouth 2 times daily. 10/21/2013 leflunomide (ARAVA) 20 mg tabletIndications:Rheum atoid arthritis(714.0) Take 1 tablet by mouth daily. 90 tablet 3 05/14/2011 11/05/2011 risedronate (ACTONEL) 35 mg tabletIndications:Rheum atoid arthritis(714.0) Take 1 tablet by mouth every 7 days. with a full glass of water, on empty stomach without food for 30' 12 tablet 3 05/14/2011 05/11/2012 levothyroxine (SYNTHROID) 150 mcg tablet Take 150 mcg by mouth daily. 11/05/2011 doxepin (SINEQUAN) 50 mg capsule Take 50 mg by mouth daily. 05/11/2011 11/05/2013 cycloSPORINE (RESTASIS) 0.05 % ophthalmic emulsion Apply 1 drop to eye 2 times daily. 07/08/2012 DIPHENHYDRAMINE HCL (BENADRYL ALLERGY ORAL) 25 mg PO 3-4 times per day 10/23/2010 11/05/2013 METHADONE HCL (METHADONE ORAL) 10 MG ( 2 TABS QID FOR PAIN), PO, Four times daily PRN 10/23/2010 06/15/2013 Psyllium Seed-Sucrose (METAMUCIL) Powd 1 Tsp, PO, Three times daily 10/23/2010 01/07/2017 WARFARIN SODIUM (WARFARIN ORAL) 10/23/2010 11/05/2013 esomeprazole (NEXIUM) 20 mg capsule 20 MG = 1 Capsule(s) PO Once daily 10/23/2010 11/05/2011 METOPROLOL SUCCINATE ORAL 10/23/2010 11/05/2011 chlorhexidine (HIBICLENS) 4 % external liquid as directed, Top, Once daily 10/23/2010 07/08/2012 documented as of this encounter Progress Notes * Elsa Souza, RN - 10/01/2011 11:54 AM EST INFUSION THERAPY ADMINISTRATION NOTES DIAGNOSIS: 1. RA (rheumatoid arthritis) (714.0CG) REASON FOR VISIT: Rituxan day # 1 of #1 SUBJECTIVE: Offers no complaints. OBJECTIVE: Last dose received on 09/03/11 VITALS: BP 147/79 Pulse 86 Temp(Src) 36.1 ??C (97 ??F) (Oral) Resp 16 SpO2 99% IF PAIN >5, INTERVENTION AND EFFECTIVENESS: na IV ACCESS: Peripheral IV Insertion/Assessment 10/01/11 1030 Left [id number]-eaitre catheter 24 gauge;3/4 in length (Active) HYDRATION: NS @ KVO 1033 TO 1120. Off with infusion ANTIEMETICS/PREMEDS, Methylprednisolone 100 mg IV @ 1035 to 1050 Benadryl 25 mg IV@ 1050 to 1100 Zofran 4 mg IV @1520 to 1530 Patient identification and orders checked against actual dose given at bedside by Elsa Souza RN TREATMENT/BLOOD/OTHER, Administrations This Visit LORazepam (ATIVAN) injection 1 mg Date Action Dose Route User 10/01/2011 Given 1 mg Intravenous ELSA SOUZA riTUXimab (RITUXAN) 1,000 mg in sodium chloride 0.9% 500 mL infusion Date Action Dose Route User 10/01/2011 New Bag 1000 mg Intravenous ELSA SOUZA Administration times: See Jan day dosing schedule used. REACTIONS None. ASSESSMENT: Tolerated infusion well. Marla did have a headache by mid infusion. She did self medicate with tylenol and methadone from home. On discharge her headache went to a 3 from 04/27. PLAN: Follow up per rheumatology clinic. documented in this encounter Procedure Notes * Provider, Scanning - 11/21/2011 10:40 AM ESTAssociated Order(s): SCAN DOC: CHEMOTHERAPY documented in this encounter Plan of Treatment Not on file documented as of this encounter Procedures Procedure Name Priority Date/Time Associated Diagnosis Comments CHEMOTHERAPY SCAN 11/21/2011 10: 40 AM EST documented in this encounter Results * SCAN DOC: CHEMOTHERAPY (11/21/2011 10:40 AM EST) Narrative 11/21/2011 10:40 AM EST Procedure Note Provider, Scanning - 11/21/2011 10:40 AM EST Scanning Provider MEDIA MGR SCAN EXT O RDR/RSLT documented in this encounter Visit Diagnoses Diagnosis RA (rheumatoid arthritis)- Primary Rheumatoid arthritis documented in this encounter Administered Medications Inactive Administered Medications - up to 3 most recent administrations Medication Order MAR Action Action Date Dose Rate Site LORazepam (ATIVAN) injection 1 mg 1 mg, Intravenous, ONCE, 1 dose, On Sat10/01/11 at 1100, Routine Given 10/01/2011 11:15 AM EST 1 mg ondansetron (ZOFRAN) injection 4 mg 4 mg, Intravenous, ONCE PRN, 1 dose, Starting on Sat10/01/11 at 1033, Until Sat10/01/11 at 1520, Nausea, Routine Given 10/01/2011 3:20 PM EST 4 mg riTUXimab (RITUXAN) 1,000 mg in sodium chloride 0.9% 500 mL infusion 1,000 mg, Intravenous, ONCE, 1 dose, On Sat10/01/11 at 1100 New Bag 10/01/2011 11:20 AM EST 1,000 mg mL/hr documented in this encounter Care Teams Dermatology Procedural Physician Relationship Specialty Start Date End Date Curt Cassidy MD [address] [facility], [address] [address] PCP - General 10/10/10 documented as of this encounter
--- OUTSIDE RECORDS SUMMARY | 2024-10-30 01:38 | XMS_ITS | Encounter Summary ---
Author Organization [facility] Address [address] [place] [address] Care Team Providers Care Medical Accounting Clerk Name Role Phone Unknown, Provider Primary Care Provider Darryl chong Encounter Details Date Type Department Care Team (Late st Contact Info) Description 01/09/2022 Lab Requisition [facility] Pathology & Laboratory Medicine - [address] [address] Outr Resulting Lab, Provider Social History Tobacco [...] Procedure Name Priority Date/Time Associated Diagnosis Comments HEPATITIS B SURFACE ANTIGEN Routine 01/08/2022 12:30 EST documented in this encounter Results * HEPATITIS B SURFACE ANTIGEN (01/08/2022 12:30 EST) Hep B Surface Ag Negative Negative 01/10/2022 9:16 EST [facility] Blood VENOUS BLOOD / Unknown 01/08/2022 12:30 EST 01/09/2022 15:53 EST us Provider Outr Resulting Lab CHEMISTRY & BLOOD GA S ORDERABLES Final Result [facility] [address] [place] [address] documented in this encounter Visit Diagnoses Not on filedocumented in this encounter Care Teams Medical Accounting Clerk Relationship Specialty Start Date End Date Unknown, Provider, PCP - General 12/19/21 documented as of this encounter
--- OUTSIDE RECORDS SUMMARY | 2024-10-30 01:38 | XMS_ITS | Encounter Summary ---
Author Organization [facility] Address [facility] [address] [place] [address] Care Team Providers Care Pick Pulling Machine Operator Name Role Phone Curt Cassidy MD Primary Care Provider [phone] Encounter Details Date Type Department Care Team (Late st Contact Info) Description 03/19/2013 Orders [place] [address] Rafael Sidhu MD [facility] [address] [place] [address] Rheumatoid arthritis (Primary Dx) Social History Tobacco Use Types Packs/Day Years Used Date Smoking Tobacco: Never Alcohol Use Standard Drinks/Week Comments Not Asked 0 (1 standard drink = 0.6 oz pur e alcohol) Sex and Gender Information Value Date Recorded Sex Assigned at Not on file Gender Identity Not on file Sexual Orientation Not on file documented as of this encounter Plan of Treatment Scheduled Orders Name Type Priority Associated Diagnoses Orde r Schedule High Sensitivity CRP Lab Routine Rheumatoid arthritis Expected: 03/19/2013, Expires: 03/20/2014 CBC (with Diff) Lab Routine Rheumatoid arthritis Expected: 03/19/2013 (Approximate), Expires: 03/20/2014 documented as of this encounter Results * (ABNORMAL) Comprehensive metabolic panel (non-fasting) (06/15/2013 4:51 PM EDT) Pathologist [facility] Glucose 93 60 - 199 mg/dL CERNER MILLENNIUM Comment:Diabetes: >=200 mg/d L plus symptoms Blood Urea Nitrogen 9 8 - 18 mg/dL [facility] Creatinine 0.89 0.70 - 1.20 mg/dL CERNER MILLENNIUM Comment: Please note that the pediatric reference intervals supplied above were not validated at [facility]. Results from pediatric patients should be interpreted in conjunction to the patient's age, height and muscle mass. Sodium 139 135 - 145 mmol/L CERNER MILLENNIUM Potassium 3.8 3.5 - 5.0 mmol/L CERNER MILLENNIUM Comment: [...] - 10.5 mg/dL CERNER MILLENNIUM Protein, Total 8.5(H) 6.4 - 8.3 gm/dL CERN[facility] MILLENNIUM Albumin 4.4 3.2 - 5.2 gm/dL CERNER MILLENNIUM Aspartate Aminotransferase 23 0 - 30 unit/L CERNER MILLENNIUM Alanine Aminotransferase 23 0 - 30 unit/L CERNER MILLENNIUM Alkaline Phosphatase 133(H) 40 - 104 unit/L CERNER MILLENNIUM Bilirubin, [...] internet browser. http://www.nkdep.nih.gov/lab-evaluation.shtml http://www.kidney.org/professionals/ Blood specimen (specimen) 06/15/2013 4:51 PM EDT 06/15/2013 4:54 PM EDT Narrative Resulting Agency Comment Spec In Lab Rafael Sidhu MD CHEMISTRY ORDERABLES Performing Organization Address City/State/[facility] [[email or web address]] Co de Phone Number [facility] documented in this encounter Visit Diagnoses Diagnosis Rheumatoid arthritis(714.0)- Primary Rheumatoid arthritis documented in this encounter Care Teams Pick Pulling Machine Operator Relationship Specialty Start Date End Date Curt Cassidy MD [address], [facility] [address] [place] [address] PCP - General 10/10/10 documented as of this encounter
--- OUTSIDE RECORDS SUMMARY | 2024-10-30 01:38 | XMS_ITS | Encounter Summary ---
Author Organization [facility] Address [facility] [place] [address] Care Team Providers Care Dray Driver Name Role Phone Curt Cassidy MD Primary Care Provider [phone] Reason for Visit * Reason Onset Date Comments Medication Refill 07/14/2012 Encounter Details Date Type Department Care Team (Late st Contact Info) Description 07/14/2012 [place] [address] Rafael Sidhu MD [facility] [place] [address] Leg edema; Joint pain Social History Tobacco Use Types Packs/Day [...] as of this encounter Visit Diagnoses Diagnosis Leg edema Edema Joint pain Pain in joint, site unspecified documented in this encounter Care Teams Dray Driver Relationship Specialty Start Date End Date Curt Cassidy MD [address] [facility], [facility] [address] [place] [address] PCP - General 10/10/10 documented as of this encounter
--- OUTSIDE RECORDS SUMMARY | 2024-10-30 01:38 | XMS_ITS | Encounter Summary ---
Author Organization [facility] Address [address] [place] [address] Care Team Providers Care Jewel Diameter Gauger Name Role Phone Unknown, Provider Primary Care Provider Darryl chong Encounter Details Date Type Department Care Team (Late st Contact Info) Description 09/07/2021 Lab Requisition [facility] Pathology & Laboratory Medicine - [facility] [address] [place] [address] Outr Resulting Lab, Provider Social History Tobacco [...] Procedure Name Priority Date/Time Associated Diagnosis Comments ACUTE HEPATITIS PROFILE Routine 09/07/2021 10:15 EDT documented in this encounter Results * ACUTE HEPATITIS PROFILE (09/07/2021 10:15 EDT) Hep B Surface Ag Negative Negative 09/08/2021 11:08 EDT [facility] Hep C Antibody Negative Negative 09/08/2021 11:08 EDT [facility] Hepatitis A Antibody, IgM Negative Negative 09/08/2021 11:08 EDT [facility] Comment:The results of this assay can be falsely lowered due to the consumption of Biotin. Hepatitis B Core Ab, Total Negative Negative 09/08/2021 11:08 EDT [facility] Blood VENOUS BLOOD / Unknown 09/07/2021 10:15 EDT 09/07/2021 21:32 EDT us Provider Outr Resulting Lab CHEMISTRY & BLOOD GA S ORDERABLES Final Result [facility] [address] [place] [address] documented in this encounter Visit Diagnoses Not on filedocumented in this encounter Care Teams Jewel Diameter Gauger Relationship Specialty Start Date End Date Unknown, Provider, PCP - General 12/19/21 documented as of this encounter
--- OUTSIDE RECORDS SUMMARY | 2024-10-30 01:38 | XMS_ITS | Encounter Summary ---
Author Organization [facility] Address [facility] [address] [place] [address] Care Team Providers Care Caustic Purification Operator Name Role Phone Curt Cassidy MD Primary Care Provider [phone] Encounter Details Date Type Department Care Team (Late st Contact Info) Description 01/24/2009 Orders [place] [address] Rafael Sidhu MD [facility] [place] [address] Social History Tobacco Use Types Packs/Day Years Used Date Smoking Tobacco: Never Assessed Sex and Gender Information Value Date Recorded Sex Assigned at Not on file Gender Identity Not on file Sexual Orientation Not on file documented as of this encounter Plan of Treatment Not on file documented as of this encounter Procedures Procedure Name Priority Date/Time Associated Diagnosis Comments FILM LIBRARY STORAGE ONLY ULTRASOUND STUDY Routine 01/24/2009 12:29 PM EDT documented in this encounter Results * FILM LIBRARY- STORAGE ONLY ULTRASOUND STUDY (01/24/2009 12:29 PM EDT) 01/24/2009 12:2 9 PM EDT Narrative [facility] - 03/24/2014 7:03 PM EDT This is a non-reportable exam. Procedure Note Miguel Angel Erickson - 03/24/2014 This is a non-reportable exam. Rafael Sidhu MD G FILM LIBRARY ORD ERABLES [facility] [address] [place] [address] documented in this encounter Visit Diagnoses Not on filedocumented in this encounter Care Teams Caustic Purification Operator Relationship Specialty Start Date End Date Curt Cassidy MD [address] , [facility] [address] [place] [address] PCP - General 10/10/10 documented as of this encounter
--- OUTSIDE RECORDS SUMMARY | 2024-10-30 01:38 | XMS_ITS | Encounter Summary ---
Author Organization [facility] Address [facility] [place] [place] [address] Care Team Providers Care Quantitative Analyst Marketing Name Role Phone Curt Cassidy MD Primary Care Provider [phone] Encounter Details Date Type Department Care Team (Late st Contact Info) Description 06/22/2013 Telephone [place] [address] Corine Olvera Social History Tobacco Use Types Packs/Day Years [...] * Telephone Encounter - Corine Olvera - 06/22/2013 10:38 AM EDT ENTERED IN ERROR documented in this encounter Plan of Treatment Not on file documented as of this encounter Visit Diagnoses Not on filedocumented in this encounter Care Teams Quantitative Analyst Marketing Relationship Specialty Start Date End Date Curt Cassidy MD [address] [facility], [facility] [address] [place] [address] PCP - General 10/10/10 documented as of this encounter
--- OUTSIDE RECORDS SUMMARY | 2024-10-30 01:38 | XMS_ITS | Encounter Summary ---
Author Organization [facility] Address [facility] [place] [address] Care Team Providers Care Propagator Name Role Phone Curt Cassidy MD Primary Care Provider [phone] Encounter Details Date Type Department Care Team (Late st Contact Info) Description 10/23/[address] [facility] [place] [phone] Rafael Sidhu MD [facility] [place] [address] Social History Tobacco Use Types Packs/Day Years Used Date Smoking Tobacco: Never Assessed Sex and Gender Information Value Date Recorded Sex Assigned at Not on file Gender Identity Not on file Sexual Orientation Not on file documented as of this encounter Plan of Treatment Not on file documented as of this encounter Procedures Procedure Name Priority Date/Time Associated Diagnosis Comments DIFFERENTIAL, AUTOMATED Routine 10/23/2010 3:15 PM EST SEDIMENTATION RATE Routine 10/23/2010 3: 15 PM EST CBC (WITH DIFF) Routine 10/23/2010 3:15 PM EST CRP, CARDIAC RISK (HS CRP) Routine 10/23/2010 3:15 PM EST HEPATIC FUNCTION PANEL Routine 0 3:15 PM EST documented in this encounter Results * SEDIMENTATION RATE, AUTOMATED (10/23/2010 3:15 PM EST) Sedimentation Rate Automated 13 0 - 20 mm/hr CERNER MILLENNIUM Blood specimen (specimen) 10/23/2010 3:15 PM EST 10/23/2010 3:46 PM EST Rafael Sidhu MD HEMATOLOGY ORDERABLE S Performing Organization Address [facility] Phone Number [facility] * (ABNORMAL) HEPATIC FUNCTION PANEL (10/23/2010 3:15 PM EST) Protein, Total 8.1 6.4 - 8.3 gm/dL CERNER MILLENNIUM Albumin 4.7 3.2 - 5.2 gm/dL CERNER MILLENNIUM Aspartate Aminotransferase 24 0 - 30 unit/L CERNER MILLENNIUM Alanine Aminotransferase 22 0 - 30 unit/L CERNER MILLENNIUM Alkaline Phosphatase 127(H) 40 - 104 unit/L CERNER MILLENNIUM Bilirubin, Total 0.7 0.2 - 1.3 mg/dL CERNER MILLENNIUM Bilirubin, Direct 0.1 0.0 - 0.3 mg/dL CERNER MILLENNIUM Blood specimen (specimen) 10/23/2010 3:15 PM EST 10/23/2010 3:46 PM EST Rafael Sidhu MD CHEMISTRY ORDERABLES Performing Organization Address [facility] Phone Number [facility] * HIGH SENSITIVITY CRP (10/23/2010 3:15 PM EST) C-Reactive Protein High Sensitivity 3.7 mg/L CERNER MILLENNIUM Comment: Interpretations: 1) For cardiac risk assessment, two values (fasting or nonfasting sample acceptable) taken at least 2 weeks apart, should be averaged to provide a more reliable estimate of marker level. ??This laboratory uses the recommendations from the AHA/CDC Scientific Statement for interpretations of future risks of cardiovascular events: ? <1.0 mg/L: low risk 1.0 - 3.0 mg/L: moderate risk >3.0 mg/L: high risk groups for future cardiovascular events 2) The general reference range of apparently healthy individuals using this test is <5.0 mg/L (derived from the test package insert) A few words of caution: For cardiac assessment, when a value >10 mg/L is encountered, there should be a search for an acute inflammatory condition or infection (in patients with acute inflammation, the concentration can increase to >500 mg/L). ??The >10 mg/L should be discarded if such a situation exists, since the risk for coronary heart disease cannot be provided, and a repeat specimen, taken at least two weeks after resolution of the acute inflammatory condition, may allow for appraisal of coronary risk information. References: 1. Maddie RIVERA et. al. ??AHA/CDC Scientific Statement: Markers of Inflammation and Cardiovascular Disease. ??Circulation 2003; 107:499-511 2. Alex PM. ??Clinical applications of C-reactive protein for cardiovascular disease detection and prevention. ??Circulation 2003; 107:363-369 Blood specimen (specimen) 10/23/2010 3:15 PM EST 10/23/2010 3:46 PM EST Rafael Sidhu MD CHEMISTRY ORDERABLES CERNER MILLENNIUM * REFLEX LAB-A-DIFF (10/23/2010 3:15 PM EST) Neutrophil % 63.5 34.0 - 71.0 % CERNER MILLENNIUM Neutrophil Absolute 5.61 1.50 - 6.30 x10(3)/mcL CERNER MILLENNIUM Lymph % 25.3 19.0 - 53.0 % CERNER MILLENNIUM Lymphocytes Abs 2.2 1.0 - 3.6 x10(3)/mcL CERNER MILLENNIUM Monocyte % 8.6 4.0 - 13.0 % CERNER MILLENNIUM Monocyte Abs 0.8 0.2 - 1.0 x10(3)/mcL CERNER MILLENNIUM Eos % 2.0 0.0 - 7.0 % CERNER MILLENNIUM Eosinophils Abs 0.2 0.0 - 0.5 x10(3)/mcL CERNER MILLENNIUM Basophil % 0.3 0.0 - 2.0 % CERNER MILLENNIUM Baso Absolute 0.0 0.0 - 0.2 x10(3)/mcL CERNER MILLENNIUM Immature Gran % 0.30 0.00 - 0.66 % CERNER MILLENNIUM Comment: Immature granulocytes(IG's)percentage and absolute count will include metamyelocytes, myelocytes, and promyelocytes. Blood smears from CBC's yielding IG's will be scanned manually for concordance. If this scan disagrees with the automated IG or if promyelocytes are noted, a manual differential will be performed. Immature Gran Absolute 0.03 0.00 - 0.05 x10(3)/mcL CERNER MILLENNIUM Blood specimen (specimen) 10/23/2010 3:15 PM EST 10/23/2010 3:46 PM EST Rafael Sidhu MD HEMATOLOGY ORDERABLE S CERNER MILLENNIUM * (ABNORMAL) CBC (10/23/2010 3:15 PM EST) White Blood Cell 8.9 4.0 - 10.0 x10(3)/mc L CERNER MILLENNIUM Red Blood Cell 4.58 3.93 - 5.22 x10(6)/mc L CERNER MILLENNIUM Hemoglobin 14.3 11.2 - 15.7 gm/dL CERNER MILLENNIUM Hematocrit 43.3 34.0 - 45.0 % CERNER MILLENNIUM Mean Cell Volume 94.5(H) 79.0 - 94.0 fL CERNER MILLENNIUM Mean Cell Hemoglobin 31.2 26.6 - 32.2 pg CERNER MILLENNIUM Mean Cell Hemoglobin Concentration 33.0 32.0 - 36.5 gm/dL CERNER MILLENNIUM Platelet 284 145 - 370 x10(3)/mc L CERNER MILLENNIUM RDW Standard Deviation 45.9 35.0 - 46.0 fL CERNER MILLENNIUM RDW coefficient of variation 13.3 10.9 - 14.4 % CERNER MILLENNIUM Mean Platelet Volume 10.1 9.0 - 12.0 fL CERNER MILLENNIUM Blood specimen (specimen) 10/23/2010 3:15 PM EST 10/23/2010 3:46 PM EST Rafael Sidhu MD HEMATOLOGY ORDERABLE S [facility] documented in this encounter Visit Diagnoses Not on filedocumented in this encounter Care Teams Propagator Relationship Specialty Start Date End Date Curt Cassidy MD [address], [place] [address] [place] [address] PCP - General 10/10/10 documented as of this encounter
--- OUTSIDE RECORDS SUMMARY | 2024-10-30 01:38 | XMS_ITS | Encounter Summary ---
Author Organization [place] [address] Care Team Providers Care High Voltage Electrician Name Role Phone Curt Cassidy MD Primary Care Provider [phone] Encounter Details Date Type Department Care Team (Late st Contact Info) Description 07/18/2011 Orders [place] [address] Ryan Ding MD [address] [place] [id number] Osteomyelitis Social History Tobacco Use Types Packs/Day Years [...] Procedure Name Priority Date/Time Associated Diagnosis Comments REQUEST FOR 2ND READ MR FOOT Routine 07/18/2011 2:31 PM EDT documented in this encounter Results * REQUEST FOR 2ND READ MR FOOT (07/18/2011 2:31 PM EDT) Anatomical Region Laterality Modality Other 07/18/2011 2:31 PM EDT Impressions 07/19/2011 1:53 PM EDT IMPRESSION: ?? 1. ??Cellulitis. 2. ??Focal abnormality at the fifth metatarsal head and possibly the fourth metatarsal head, most consistent with erosions related to rheumatoid arthritis. Narrative 07/19/2011 1:53 PM EDT MRI OF THE LEFT FOOT PERFORMED AT [facility], 07/17/11: CLINICAL HISTORY: ??Left foot cellulitis unresponsive to treatment. ??Previous concern for osteomyelitis at the fifth metatarsophalangeal joint. Review of our images here from 2005, as well as the clinical history indicates that there is a history of rheumatoid arthritis. ?? I have been asked by Dr. Ding to provide a second interpretation of this study, because Dr. Ding believes this may change or alter the care of the patient. TECHNIQUE: ??The study consists of T1-weighted and fat-suppressed T2 and inversion recovery images. ??Fat-suppressed T2-weighted images were also acquired following administration of intravenous contrast. COMPARISON: ??The most recent previous x-rays are from 2005. FINDINGS: ??At the dorsum of the foot, there is fluid signal intensity in the subcutaneous fat consistent with cellulitis. ??I do not see a discrete area of soft tissue ulceration. ??At the fifth metatarsal head, there are well-defined defects in the bone. ??Given the patient's history, the appearance is most consistent with erosions related to rheumatoid arthritis. ??I believe there are additional erosions at the fourth metatarsal head and possibly the third as well. ??While it is difficult, but not impossible to absolutely exclude the possibility of infection at these locations of abnormal bone marrow, the appearance is far more consistent with rheumatoid arthritis, particularly given the absence of focal soft tissue ulceration extending to the bone. ??It is possible that a joint involved with rheumatoid arthritis may be secondarily infected. ??Muscle signal intensity is normal. ??I do not see evidence of myositis. ??No abscess is identified. Procedure Note Josh Vargas MD - 07/19/2011 MRI OF THE LEFT FOOT PERFORMED AT [facility], 07/17/11: CLINICAL HISTORY: Left foot cellulitis unresponsive to treatment.Previous concern for osteomyelitis at the fifth metatarsophalangeal joint. Review of our images here from 2005, as well as the clinical historyindicates that there is a history of rheumatoid arthritis. I have been asked by Dr. Ding to provide a second interpretation ofthis study, because Dr. Ding believes this may change or alter the care ofthe patient. TECHNIQUE: The study consists of T1-weighted and fat-suppressed T2 and inversion recovery images. Fat-suppressed T2-weighted images were also acquired following administration of intravenous contrast. COMPARISON: The most recent previous x-rays are from 2005. FINDINGS: At the dorsum of the foot, there is fluid signal intensity inthe subcutaneous fat consistent with cellulitis. I do not see a discrete areaof soft tissue ulceration. At the fifth metatarsal head, there arewell-defined defects in the bone. Given the patient's history, the appearance is most consistent with erosions related to rheumatoid arthritis. I believe thereare additional erosions at the fourth metatarsal head and possibly the thirdas well. While it is difficult, but not impossible to absolutely exclude the possibility of infection at these locations of abnormal bone marrow, the appearance is far more consistent with rheumatoid arthritis, particularlygiven the absence of focal soft tissue ulceration extending to the bone. It is possible that a joint involved with rheumatoid arthritis may besecondarily infected. Muscle signal intensity is normal. I do not see evidence of myositis. No abscess is identified. IMPRESSION IMPRESSION: 1. Cellulitis. 2. Focal abnormality at the fifth metatarsal head and possibly the fourth metatarsal head, most consistent with erosions related to rheumatoidarthritis. Ryan Ding MD IMG OUTSIDE INTERPRE TATION ORDERABLES documented in this encounter Visit Diagnoses Diagnosis Osteomyelitis Unspecified osteomyelitis, site unspecified documented in this encounter Care Teams High Voltage Electrician Relationship Specialty Start Date End Date Curt Cassidy MD [address] [facility], [address] [address] PCP - General 10/10/10 documented as of this encounter
--- OUTSIDE RECORDS SUMMARY | 2024-10-30 01:38 | XMS_ITS | Encounter Summary ---
Author Organization [facility] Address [facility] [place] [address] Care Team Providers Care Ice Sculptor Name Role Phone Curt Cassidy MD Primary Care Provider [phone] Reason for Visit * Reason Comments IV Medication Encounter Details Date Type Department Care Team (Late st Contact Info) Description 05/31/2011 10:28 AM EDT - 05/31/2011 11:59 PM EDT Hospital Encounter [place] [address] CLINIC, Curt Lopez MD [address] [place] [address], [address] [address] RA (rheumatoid arthritis) (Primary Dx) [...] Sign Reading Time Taken Comments Blood Pressure 114/64 05/31/2011 10:45 AM EDT Pulse 66 05/31/2011 10:45 AM EDT Temperature 35.7 ??C (96.3 ??F) 05/31/2011 10:45 AM E DT Respiratory Rate 18 05/31/2011 10:45 AM EDT Oxygen Saturation 97% 05/31/2011 10:45 AM EDT Inhaled Oxygen Concentration - - Weight - - Height - - Body Mass Index - - documented in this encounter Medications at Time of Discharge Medication Sig Dispensed Refills Start Date End Date ergocalciferol (VITAMIN D) 50,000 unit capsule 30742 unit, PO, once a month 10/23/2010 predniSONE [...] of this encounter Progress Notes * Elsa Souza RN - 05/31/2011 11:53 AM EDT INFUSION THERAPY ADMINISTRATION NOTES DIAGNOSIS: 1. RA (rheumatoid arthritis) (714.0CG) REASON FOR VISIT: Rituxan day # 1 SUBJECTIVE: My head is starting to hurt again OBJECTIVE:See Note below VITALS: BP 114/64 Pulse 66 Temp(Src) 35.7 ??C (96.3 ??F) (Oral) Resp 18 SpO2 97% IF PAIN >5, INTERVENTION AND EFFECTIVENESS: N/A IV ACCESS: Peripheral IV Insertion/Assessment 05/31/11 1055 Left pnqc-wae-yoppkz catheter 24 gauge;1 in length(Active) HYDRATION, NS @ KVO 1055 TO 1135. Off with infusion ANTIEMETICS/PREMEDS, Methylprednisolone 100 mg IV @ 1130 to 1140 Ativan 1 mg IV at 1140 Benadryl 25 mg IV@ 1025 to 1035 Zofran 4 mg IV at 1228-9137 Patient identification and orders checked against actual dose given at bedside by Elsa Souza RN TREATMENT/BLOOD/OTHER, DOSE, ROUTE, START TIME, STOP TIME Administrations This Visit LORazepam (ATIVAN) injection 1 mg Date Action Dose Route User 05/31/2011 Given 1 mg Intravenous ELSA SOUZA riTUXimab (RITUXAN) 1,000 mg in sodium chloride 0.9% 500 mL infusion Date Action Dose Route User 05/31/2011 New Bag 1000 mg Intravenous ELSA SOUZA Administration times: See JAN REACTIONS 1340: Pt presents with complaints of headache approximately a quarter way into infusion (200 cc's infused). BP checked with a reading of 96/50 HR-76, IV rate decreased from 125 cc an hour to 75 cc anhour for [address] Sidhu notified- 1 mg Ativan IV administered at 1420 with good affect. Patient fell asleep after Ativan administered. 1430- IV rate increased to 150 cc an hour for 30 minutes,then increased to 200 cc's an hour for remainder of infusion. Patient tolerated the rest of infusion without complications. ASSESSMENT: See reaction note PLAN: Follow up per rheumatology clinic. documented in this encounter Plan of Treatment Not on file documented as of this encounter Visit Diagnoses Diagnosis RA (rheumatoid arthritis)- Primary Rheumatoid arthritis documented in this encounter Administered Medications Inactive Administered Medications - up to 3 most recent administrations Medication Order MAR Action Action Date Dose Rate Site LORazepam (ATIVAN) injection 1 mg 1 mg, Intravenous, ONCE, 1 dose, On Cherry 05/31/11 at 1115, Routine Given 05/31/2011 11:30 AM EDT 1 mg riTUXimab (RITUXAN) 1,000 mg in sodium chloride 0.9% 500 mL infusion 1,000 mg, Intravenous, ONCE, 1 dose, On Cherry 05/31/11 at 1100 New Bag 05/31/2011 11:35 AM EDT 1,000 mg m L/hr documented in this encounter Care Teams Ice Sculptor Relationship Specialty Start Date End Date Curt Cassidy MD [address] [facility], [address] [address] PCP - General 10/10/10 documented as of this encounter
--- OUTSIDE RECORDS SUMMARY | 2024-10-30 01:38 | XMS_ITS | Encounter Summary ---
Author Organization [facility] Address [facility] [place] [address] Care Team Providers Care Assembler Rubber Footwear Name Role Phone Curt Cassidy MD Primary Care Provider Encounter Details Date Type Department Care Team (Late st Contact Info) Description 07/04/2012 Telephone [place] [id number] Rafael Sidhu MD [facility] [address] [place] [address] Social History Tobacco Use Types Packs/Day Years Used Date Smoking Tobacco: Never Alcohol Use Standard Drinks/Week Comments Not Asked 0 (1 standard drink = 0.6 oz pur e alcohol) Sex and Gender Information Value Date Recorded Sex Assigned at Not on file Gender Identity Not on file Sexual Orientation Not on file documented as of this encounter Miscellaneous Notes * Telephone Encounter - Rafael Sidhu MD - 07/04/2012 11:13 AM EDT Spoke with Dr. Cassidy re Ms. Denton, who has been maintained on Arava with last rituximab in 2010. She was in his office with several complaints including LE edema x 5 days R>L, forearm pain anddiffuse joint pain despite methadone 10 mg qid. Evaluation by Dr. Cassidy demonstrated normal vital signs, right ankle swelling and tenderness with similar pain in right wrist. And new onset alopecia over vertex of scalp. Labs showed an INR 2.65, normal CBC, normal LFTs with albumin 4.7. Total protein 8.4 and normal renal function. TSH normal ESR 28 Assess: Very complex patient with RA and multiple issues including thrombophilia with PE, recurrentinfections, episodes of vasculitis. This does not appear to be infectious, but the exact nature remains unclear. Will arrange for f/u in next 7-10 days. Per my instruction, Dr. Cassidy placed Ms. Denton on Prednisone 20 mg/d. Will try to see 07/08/12 at either 1pm or 07/14 at 9am Rafael Sidhu documented in this encounter Plan of Treatment Not on file documented as of this encounter Visit Diagnoses Not on filedocumented in this encounter Care Teams Assembler Rubber Footwear Relationship Specialty Start Date End Date Curt Cassidy MD [address], [facility] [address] [place] [address] PCP - General 10/10/10 documented as of this encounter
--- OUTSIDE RECORDS SUMMARY | 2024-10-30 01:38 | XMS_ITS | Encounter Summary ---
Author Organization [facility] Address [facility] [place] [address] Care Team Providers Care Agency Director Name Role Phone Curt Cassidy MD Primary Care Provider [phone] Reason for Visit * Reason Comments Rheumatoid Arthritis Encounter Details Date Type Department Care Team (Late st Contact Info) Description 07/08/2012 12:45 PM EDT Follow-[place] [address] Rafael Sidhu MD [facility] [place] [address] Rheumatoid arthritis; Neuropathy; Leg edema; Joint pain Discharge Disposition: Home Social History Tobacco [...] Sign Reading Time Taken Comments Blood Pressure 116/64 07/08/2012 12:50 PM EDT Pulse 73 07/08/2012 12:50 PM EDT Temperature - - Respiratory Rate 20 07/08/2012 12:50 PM EDT Oxygen Saturation 97% 07/08/2012 12:50 PM EDT Inhaled Oxygen Concentration - - Weight 83.5 kg (184 lb) 07/08/2012 12:50 PM EDT Height 149.9 cm (4' 11) 07/08/2012 12:50 PM EDT Body Mass Index 37.16 07/08/2012 12:50 PM EDT documented in this encounter Patient Instructions * Patient Instructions* Rafael Sidhu MD - 07/08/2012 1:39 PM EDT 1. Achilles tendonitis: Use Night Splint: Available from [employer] website above or from [employer] http://www.[employer]/Gbhnzhv-Lwtefanh-Rcdzv-Splint-Brace/dp/N215VUBFB6 2. Lower extremity edema: Venous insufficiency. Wonder about role of methadone in doing this. Will recommend trial of Fentanyl patch. Will start with one prescription and then have Dr. Cassidy write future prescriptions and consideration of alternative narcotics less likely to cause LE edema. ZENIA Wraps to be attempted. 3. Tenderness/dysesthesias (sensitivity to touch in Upper Arm): Use gabapentin on a schedule 300-600 mg 3 times a day 4. Rheumatoid Arthritis: hold the Arava to take a drug holiday and stop rituximab therapy with the plan to go to tocilizumab with plan to return after 3 infusions. These infusions could be done locally or at [facility]. She will need CBC, liver function test every 2-3 months along with a fasting lipid profile. 5. Return in follow up in 3-4 months after 3 infusions of Tocilizumab 6. Follow up labs in August documented in this encounter Progress Notes * Rafael Sidhu MD - 07/08/2012 1:19 PM EDT Marla Denton is a 56-year-old female seen in 9 month follow up for severe complicated RA maintained on RTX 1000 mg every 3 months with her last infusion 12/30 complicated by left sided chest pain with an ER visit. She comes in today with the following issues, all of which exacerbated in the last month. 1. Pain and burning in the right forearm and shoulder starting 2+ weeks ago. This occurs at rest and with activity and it is present all day long. Some improvement with the neurontin and the increasein Prednisone to 20 mg/d last week 2. Left Achilles pain and aching at rest also about 2 weeks ago 3. Hands with swelling and stiffness in the am, especially on the right, 'they look like a baseballmitt'. This has been better since increasing prednisone 4. On the backdrop of chronic swelling of right LE>>left LE, right leg became acutely swollen. This started about 10 days ago. Negative w/u for DVT, still on coumadin and INR was high. Prednisone has had no effect. No infections except some process in scalp that caused hair loss about 1 month ago, developed intense soreness with scab there (may have had furuncle), but no one ever saw it. She was seen by Dr. Cassidy last week for this symptom complex. His work up was thorough and complete and we planned on a course of prednisone 20 mg/d at that time. The work up included: Normal CBC, LFTS with albumin 4.7, ESR 28, negative ultrasound of lower extremities. The prednisone has helped some of the above issues. Review of Systems Constitutional: No fevers, chills, malaise. Skin: no rashes HEENT: no sicca sx, change in hearing, taste sinus pain, ZHANG, change in taste. Respiratory: no chest pain, shortness of breath CV: no ABDULLAHI, angina sx, claudication Back: No sciatica, pain with standing GI: no abd pain, normal bowel movements : no dysuria, normal voiding, no nocturia Neuro: no focal deficit She does not want another one, and missed her scheduled March 2012 infusion. ongoing evaluation and management of seronegative rheumatoid arthritis. She has had Rituximab 1000 mg x 1 in May 2011 and September 2011. When last seen, I injected her left knee for symptoms that sounded more like OA than RA. She reports that she thinks that the increased interval in her rituximab dosing from May to September (we are shooting for every 3 months) allowed some recurrence to happen. She is seeing Dr. Cassidy regularly and her INR has been well titrated. It is not clear what labs she has had done. November 19 2011 Labs: Hct 41.4 WBC 10,300, plts 338 K. Lytes, bun Cr, LFT all normal except alk phos of 162. Albumin 4.5, INR 27.8, CRP pending, but I expect it will only be modestly elevated if at all, given albumin Problem List: 1. Seronegative rheumatoid arthritis, erosive/destructive. [...] RTX infusion Hx C1-2 fusion distant past 2. RLE edema Extensive/NEGATIVE workup (02/2007) in [...] osteomyelitic vs cellulitis with RA. 4. DXA ([place] 2004: -1.3 SD low at spine; 1 [...] due to left knee pain Blood pressure 116/64, pulse 73, resp. rate 20, height 149.9 cm (4' 11), weight 83.462 kg (184 lb), SpO2 97.00%.HEENT: normal. Neck decreased flexion. Shoulders: decreased abduction left shoulder, right not tested. Elbows: Hyperesthesis on right forearm and deltoid and trapezius. Her left wrist and hand exam no longer demonstrate synovitis at the radiocarpal or ulnocarpal joints and there is little if any swelling of bilateral 2nd/3rd mcp joints. Her right hand is puffy without color change and is diffusely tender and stiff without much edema/synovial swelling. Her left knee has popliteal fullness. Her right TKR is well healed and there is diffuse swelling to the dorsum of the foot. Left Achilles very tender to the touch. Ankles okayMTP joints splaying and tender. VARGAS 28 Joint Count TJC: 9 SJC 3 Patient global 8, Physician global 7.5 CDAI 27.5 Impression: This is a very confusing situation with multiple issues and a pain pattern that is hardto understand in the context of an aggressive form of RA. I think the time has come to reassess on many of these issues, while treating the more symptomatic ones with drugs that will not cloud determination of her response to therapy. Plan: 1. Left Achilles tendonitis: night splint 2. Right UE dysesthesias: It is not quite clear what this represents. There are no vasomotor issuesto make one think of Complex Regional Pain. Both the patient and I think Dr. Cassidy was on the right track with Gabapentin 300 mg tid and will increase to 600 mg tid with emphasis to patient that shetake it on a schedule 3. LE edema: At some point in time, Ms. Denton has had every imaging study for this. She is on anticoagulation and INR was therapeutic. Her Ultrasound study was negative. With the possibility that her pain results from LE edema, we will continue to suggest TEDS or ZENIA wraps,especially now that she is less painful. I also wonder if the methadone is playing a role in her LE edema. I will switch he r to Fentanyl 75 mcg/hour with plan to taper the daily methadone off in 1-2 days. If the edema/paincontrol is better, will have her f/u with Dr. Cassidy for future prescriptions 4. 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 I think the RTX has reached the end of the line after she has failed so many other agents. I will be discussing with Marla the use of tocilizumab and she is eager to try. Will start at 4 mg/kg and increase to 8 mg/kg thereafter. CBC, LFTs planned for early August. 5. 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 Level 5 F/u visit Rafael Sidhu M.D. Staff Operations And Maintenance Manager documented in this encounter Procedure Notes * Provider, Scanning - 07/01/2013 9:14 AM EDTAssociated Order(s): SCAN DOC: ORDS - PROVIDER CARE documented in this encounter Plan of Treatment Not on file documented as of this encounter Procedures Procedure Name Priority Date/Time Associated Diagnosis Comments ORDS - PROVIDER CARE SCAN 07/01/2013 9:14 AM EDT documented in this encounter Results * SCAN DOC: ORDS - PROVIDER CARE (07/01/2013 9:14 AM EDT) Narrative 07/01/2013 9:14 AM EDT Procedure Note Provider, Scanning - 07/01/2013 9:14 AM EDT Scanning Provider MEDIA MGR SCAN EXT O RDR/RSLT * (ABNORMAL) Sedimentation rate (06/15/2013 4:51 PM EDT) Sedimentation Rate Automated 33(H) 0 - 20 mm/hr [facility] Blood specimen (specimen) 06/15/2013 4:51 PM EDT 06/15/2013 4:54 PM EDT Narrative Resulting Agency Comment Spec In Lab Rafael Sidhu MD HEMATOLOGY ORDERABLE S [facility] * High Sensitivity CRP (06/15/2013 4:51 PM EDT) C-Reactive Protein High Sensitivity 9.0 mg/L [facility] Comment: Interpretations: 1) For accurate cardiac risk [...] prevention. ??Circulation 2003; 107:363-369 Blood specimen (specimen) 06/15/2013 4:51 PM EDT 06/15/2013 4:54 PM EDT Narrative Resulting Agency Comment Spec In Lab Rafael Sidhu MD CHEMISTRY ORDERABLES [facility] * CBC (with Diff) (06/15/2013 4:51 PM EDT) White Blood Cell 9.0 4.0 - 10.0 x10(3)/mcL [facility] Red Blood Cell 4.47 3.93 - 5.22 x10(6)/mcL [facility] Hemoglobin 13.6 11.2 - 15.7 gm/dL [facility] Hematocrit 41.7 34.0 - 45.0 % [facility] MILLENNI[facility] Mean Cell Volume 93.3 79.0 - 94.0 fL [facility] MILLENNIUM Mean Cell Hemoglobin 30.4 26.6 - 32.2 pg [facility] MILLENNIUM Mean Cell Hemoglobin Concentration 32.6 32.0 - 36.5 gm/dL [facility]ERN[facility] MILLENNIUM Platelet 329 145 - 370 x10(3)/mcL [facility] MILLENNIUM RDW Standard Deviation 45.3 35.0 - 46.0 fL CERN[facility] MILLENNIUM RDW coefficient of variation 13.4 10.9 - 14.4 % [facility]ERN[facility] MILLENNIUM Mean Platelet Volume 9.3 9.0 - 12.0 fL [facility] Blood specimen (specimen) 06/15/2013 4:51 PM EDT 06/15/2013 4:54 PM EDT Narrative Resulting Agency Comment Spec In Lab Rafael Sidhu MD HEMATOLOGY ORDERABLE S JAZMIN PETE documented in this encounter Visit Diagnoses Diagnosis Rheumatoid arthritis(714.0) Rheumatoid arthritis Neuropathy Mononeuritis of unspecified site Leg edema Edema Joint pain Pain in joint, site unspecified documented in this encounter Care Teams Agency Director Relationship Specialty Start Date End Date Curt Cassidy MD [address] [facility] [address] [place] [address] PCP - General 10/10/10 documented as of this encounter
--- OUTSIDE RECORDS SUMMARY | 2024-10-30 01:38 | XMS_ITS | Encounter Summary ---
Author Organization [facility] Address [address] [place] [address] Care Team Providers Care Court Worker Name Role Phone Unknown, Provider Primary Care Provider Darryl chong Encounter Details Date Type Department Care Team (Late st Contact Info) Description 01/09/2022 Lab Requisition [facility] Pathology & Laboratory Medicine - [facility] [address], [place] [id number] Outr Resulting Lab, Provider Social History Tobacco [...] Procedure Name Priority Date/Time Associated Diagnosis Comments URINE MONOCLONAL PROTEIN STUDY (UPEP WITH IMMUNOTYPING) PERFORMABLE Today 01/08/2022 12:30 EST PROTEIN, TOTAL, RANDOM, URINE Today 01/08/2022 12:30 EST URINE MONOCLONAL PROTEIN STUDY (UPEP WITH IMMUNOTYPING) Routine 01/08/2022 12:30 EST documented in this encounter Results * URINE MONOCLONAL PROTEIN STUDY (UPEP WITH IMMUNOTYPING) PERFORMABLE (01/08/2022 12:30 EST) Albumin, Urine % 42.3 N/A % 01/10/20 14:46 EST [facility] Globulins, Urine % 57.7 N/A % 01/10/2022 14:46 EST [facility] UPEP Comment See Comment 01/10/2022 14:46 EST [facility] Comment:Electrophoresis scre ening performed; Immunotyping to follow. See scanned/supplementary report. Immunotyping, Urine Current Interpretatio n: Negative for free monoclonal light chains. Reviewed by: Kane Samuel MD, PhD 01/10/2022 14:09. 01/10/2022 14:46 EST [facility] Total Protein, Urine 11 See Note mg/dL 01/10/2022 14:46 EST [facility] Comment: NOTE: Reference range has not been established for total protein concentration in random urine specimens. Urine URINE / Unknown 01/08/2022 1 2:30 EST 01/09/2022 15:53 EST Provider Outr Resulting Lab URINALYSIS ORDERABLE S Final Result Performing Organization Address [facility] de Phone Number [facility] [address] [place] [address] * PROTEIN, TOTAL, RANDOM, URINE (01/08/2022 12:30 EST) Urine URINE / Unknown 01/08/2022 1 2:30 EST 01/09/2022 15:53 EST us Provider Outr Resulting Lab URINALYSIS ORDERABLE S Final Result Performing Organization Address [facility] Co de Phone Number [facility] [address] [place] [address] documented in this encounter Visit Diagnoses Not on filedocumented in this encounter Care Teams Court Worker Relationship Specialty Start Date End Date Unknown, Provider, PCP - General 12/19/21 documented as of this encounter
--- OUTSIDE RECORDS SUMMARY | 2024-10-30 01:38 | XMS_ITS | Encounter Summary ---
Author Organization [facility] Address [facility] [place] [address] Care Team Providers Care Painter And Body Work Name Role Phone Curt Cassidy MD Primary Care Provider [phone] Reason for Visit * Reason Onset Date Comments Medication Refill 06/18/2013 Encounter Details Date Type Department Care Team (Late st Contact Info) Description 06/18/2013 [place] [address] Rafael Sidhu MD [facility] [place] [address] [place] [address] Social History Tobacco Use Types Packs/Day Years [...] filedocumented in this encounter Care Teams Painter And Body Work Relationship Specialty Start Date End Date Curt Cassidy MD [address] [facility], [facility] 3 [place] [address] PCP - General 10/10/10 documented as of this encounter
--- OUTSIDE RECORDS SUMMARY | 2024-10-30 01:38 | XMS_ITS | Encounter Summary ---
Author Organization [facility] Address [facility] [address] [place] [address] Care Team Providers Care Radiological Metallurgist Name Role Phone Curt Cassidy MD Primary Care Provider [phone] Encounter Details Date Type Department Care Team (Late st Contact Info) Description 03/19/2013 Telephone [place] [id number] Rafael Sidhu MD [facility] [place] [address] Social History Tobacco Use Types Packs/Day Years [...] Telephone Encounter - Rafael Sidhu MD - 03/19/2013 9:24 AM EDT Spoke with patient re her desire to attempt TCZ therapy. She reports no episodes of diverticular disease. Her issue has been that of active RA and recurrent cellulitis on Arava/Leflunomide. Plan: 1. Arrange a f/u visit with baseline labs same day as TCZ infusion starting at 4 mg/kg. If no response seen will go to 8 mg/kg 2. Discuss with Dr. Cassidy suppression of MRSA with Bactrim daily Rafael Sidhu M.D. documented in this encounter Plan of Treatment Not on file documented as of this encounter Visit Diagnoses Not on filedocumented in this encounter Care Teams Radiological Metallurgist Relationship Specialty Start Date End Date Curt Cassidy MD [address], [facility] 3 [place] [address] PCP - General 10/10/10 documented as of this encounter
--- OUTSIDE RECORDS SUMMARY | 2024-10-30 01:38 | XMS_ITS | Encounter Summary ---
Author Organization [facility] Address [facility] [place] [address] Care Team Providers Care It Operations Manager Name Role Phone Curt Cassidy MD Primary Care Provider [phone] Reason for Visit * Reason Onset Date Comments Prior Authorization 07/05/2011 Actonel Encounter Details Date Type Department Care Team (Late st Contact Info) Description 07/05/2011 Telephone [place] [address] Rafael Sidhu MD [facility] [place] [address] Prior Authorization (Actonel) Social History Tobacco Use Types Packs/Day Years [...] Miscellaneous Notes * Telephone Encounter - Kathi Marks - 07/05/2011 2:58 PM EDT Patient Name: Marla Denton Date of : 1955 Subscriber Insurance: [place] MEDICAID ID# [id number] Ins. 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 Additional risk factors that make this medication required: Prior medication trials: Dates: Outcomes/Adverse reactions: Drug interactions: Note(s): [place] Approval Effective Dates: 07/05/11 to 06/28/12 [place] Approved By: Rachel DOMINGUEZ Authorization number (if given): Created By: Kathi Marks documented in this encounter Plan of Treatment Not on file documented as of this encounter Visit Diagnoses Not on filedocumented in this encounter Care Teams It Operations Manager Relationship Specialty Start Date End Date Curt Cassidy MD [address], [place] [id number] PCP - General 10/10/10 documented as of this encounter
--- OUTSIDE RECORDS SUMMARY | 2024-10-30 01:38 | XMS_ITS | Encounter Summary ---
Author Organization [facility] [place] [address] Care Team Providers Care Scrub Nurse Name Role Phone Curt Cassidy MD Primary Care Provider [phone] Encounter Details Date Type Department Care Team (Late st Contact Info) Description 05/11/2011 [place] [address] Dorinda Hooks, RN Social History Tobacco Use Types Packs/Day Years Used Date Smoking Tobacco: Never Assessed Sex and Gender Information Value Date Recorded Sex Assigned at Not on file Gender Identity Not on file Sexual Orientation Not on file documented as of this encounter Plan of Treatment Not on file documented as of this encounter Visit Diagnoses Not on filedocumented in this encounter Care Teams Scrub Nurse Relationship Specialty Start Date End Date Curt Cassidy MD [address], [facility] 3 [place] [address] PCP - General 10/10/10 documented as of this encounter
--- OUTSIDE RECORDS SUMMARY | 2024-10-30 01:38 | XMS_ITS | Encounter Summary ---
Author Organization [facility] Address [facility] [address] [place] [address] Care Team Providers Care Manager Intensive Care Unit Name Role Phone Curt Cassidy MD Primary Care Provider [phone] Encounter Details Date Type Department Care Team (Late st Contact Info) Description 02/02/2004 Orders [place] [address] Mayco Montanez Jr., MD [facility] [place] [address] Social History Tobacco Use Types Packs/Day Years Used Date Smoking Tobacco: Never Assessed Sex and Gender Information Value Date Recorded Sex Assigned at Not on file Gender Identity Not on file Sexual Orientation Not on file documented as of this encounter Plan of Treatment Not on file documented as of this encounter Procedures Procedure Name Priority Date/Time Associated Diagnosis Comments SURGICAL PATHOLOGY REPORT Routine 02/02/2004 3:16 PM EST documented in this encounter Results * Surgical Pathology Report (02/02/2004 3:16 PM EST) Surgical Pathology Report [id number] ? Location: [facility]; [facility]; B The signing pathologist has (i) examined the relevant preparation(s) for the specimen(s) and (ii) rendered or confirmed the diagnosis(es). . ?Pathology Surgical Pathology Final Report Clinical Information Specimen Submitted: A - Tibia, Femur, Patella bone, right knee Clinical History: Pt. allergies please see chartDJD Rt Knee/RA Gross Description Labeled/Fixative: ? Right knee, fresh. Quantity/Size: ?Multiple, 10 x 8 x 3 cm in aggregate. Tissue Description: ?? Yellow-white, hard, irregular fragments of bone, ?cartilage and soft tissue. ??Articular surfaces ?are slightly roughened. No eburnation is ?present. Mild osteophyte formation is present. Sections/Processing: ??(R3/decal)aje/SNS Microscopic Description Slides reviewed, microscopic description not recorded. Diagnosis Bone and soft tissue (right knee), total knee replacement: ??1. Articular surface with degenerative changes, osteophyte ? formation, and focal synovial pannus. ??2. Papillary synovial hyperplasia with dense lymphoplasmacytic ? infiltrates, consistent with rheumatoid arthritis or one of ? its variants. CR-0 02/03/04 AJE 02/08/04 Verified by: ? Iftikhar Kern MD, PhD ?Pathologist ?(Electronic Signature) The attending pathologist whose signature appears on this report has reviewed all diagnostic slides and has edited the gross and/or microscopic portion of the report in rendering the final pathologic diagnosis. JAZMIN PETE 02/02/2004 3:16 PM EST Mayco Montanez Jr., MD PATHOLOGY/CYTOLOG Y ORDERABLES Performing Organization Address City/State/[facility] Co de Phone Number JAZMIN PETE documented in this encounter Visit Diagnoses Not on filedocumented in this encounter Care Teams Manager Intensive Care Unit Relationship Specialty Start Date End Date Curt Cassidy MD [address], [facility] 3 [place] [address] PCP - General 10/10/10 documented as of this encounter
--- OUTSIDE RECORDS SUMMARY | 2024-10-30 01:38 | XMS_ITS | Encounter Summary ---
Author Organization [facility] [place] [address] Care Team Providers Care Negotiations Director Name Role Phone Curt Cassidy MD Primary Care Provider [phone] Encounter Details Date Type Department Care Team (Late st Contact Info) Description 07/17/2011 Orders [place] [address] Ryan Ding MD [address] [place] [id number] Social History Tobacco Use Types Packs/Day Years [...] Diagnosis Comments FILM LIBRARY STORAGE ONLY MR FOOT Routine 07/17/2011 9:26 AM EDT documented in this encounter Results * FILM LIBRARY- STORAGE ONLY MR FOOT (07/17/2011 9:26 AM EDT) 07/17/2011 9:26 AM EDT Narrative [facility] - 03/24/2014 7:03 PM EDT This is a non-reportable exam. Procedure Note Miguel Angel Erickson - 03/24/2014 This is a non-reportable exam. Ryan Ding MD IM FILM LIBRARY ORD ERABLES RAD [address] [facility] [place] [address] documented in this encounter Visit Diagnoses Not on filedocumented in this encounter Care Teams Negotiations Director Relationship Specialty Start Date End Date Curt Cassidy MD [address], [facility] 3 [place] [address] PCP - General 10/10/10 documented as of this encounter
--- OUTSIDE RECORDS SUMMARY | 2024-10-30 01:38 | XMS_ITS | Encounter Summary ---
Author Organization [facility] Address [facility] [place] [address] Care Team Providers Care Satin Finisher Name Role Phone Curt Cassidy MD Primary Care Provider [phone] Encounter Details Date Type Department Care Team (Late st Contact Info) Description 12/18/2010 10:00 AM EST Office [place] [address] CLINIC, Curt Lopez MD [address] [facility], [address] [address] Lucy Chow, [facility] [place] [address] Discharge Disposition: Home Social History Tobacco Use [...] on filedocumented in this encounter Care Teams Satin Finisher Relationship Specialty Start Date End Date Curt Cassidy MD [address] [facility], [address] [id number] PCP - General 10/10/10 documented as of this encounter
--- OUTSIDE RECORDS SUMMARY | 2024-10-30 01:38 | XMS_ITS | Encounter Summary ---
Author Organization [facility] Address [facility] [place] [place] [address] Care Team Providers Care Meat Clerk Name Role Phone Curt Cassidy MD Primary Care Provider Reason for Visit * Reason Comments IV Medication Encounter Details Date Type Department Care Team (Late st Contact Info) Description 12/31/2011 10:09 AM EST - 12/31/2011 11:59 PM EST Hospital Encounter [place] [address] CLINIC, Curt Lopez MD [address] [place] [address], [address] [address] RA (rheumatoid arthritis) (Primary Dx) [...] Sign Reading Time Taken Comments Blood Pressure 127/73 12/31/2011 10:15 AM EST Pulse 81 12/31/2011 10:15 AM EST Temperature 36.1 ??C (97 ??F) 12/31/2011 10:15 AM EST Respiratory Rate 18 12/31/2011 10:15 AM EST Oxygen Saturation 99% 12/31/2011 10:15 AM EST Inhaled Oxygen Concentration - - Weight - - Height - - Body Mass Index - - documented in this encounter Medications at Time of Discharge Medication Sig Dispensed Refills Start Date End Date ergocalciferol (VITAMIN D) 50,000 unit capsule 14510 unit, PO, once a month 10/23/2010 levothyroxine (SYNTHROID) 100 mcg tablet Take 100 mcg by mouth daily. 06/15/2013 calcium carbonate 648 mg tablet Take 650 mg by mouth 3 times daily (with meals). 11/05/2013 leflunomide (ARAVA) 20 mg tabletIndications:Rheu matoid arthritis(714.0) Take 1 tablet by mouth daily. 90 tablet 3 11/05/2011 09/21/2013 LORazepam (ATIVAN) 1 mg tabletIndications:Anxi ety Take by mouth. 2 tablets 1 hour before rituximab infusions, may repeat at the end of the rituximab infusion 20 tablet 1 11/05/2011 06/15/2013 predniSONE (DELTASONE) 5 mg tabletIndications:Rheu matoid arthritis(714.0) Take by mouth. 1.5 tablets daily 120 tablet 12 05/14/2011 05/14/2012 metoprolol tartrate (LOPRESSOR) 25 mg tablet Take 25 mg by mouth 2 times daily. 10/21/2013 risedronate (ACTONEL) 35 mg tabletIndications:Rheu matoid arthritis(714.0) Take 1 tablet by mouth every 7 days. with a full glass of water, on empty stomach without food for 30' 12 tablet 3 05/14/2011 05/11/2012 doxepin (SINEQUAN) 50 mg capsule Take 50 [...] 01/07/2017 WARFARIN SODIUM (WARFARIN ORAL) 10/23/2010 11/05/2013 chlorhexidine (HIBICLENS) 4 % external liquid as directed, Top, Once daily 10/23/2010 07/08/2012 documented as of this encounter Progress Notes * Elsa Souza, RN - 12/31/2011 3:13 PM EST INFUSION THERAPY ADMINISTRATION NOTES DIAGNOSIS: 1. RA (rheumatoid arthritis) (714.0CG) REASON FOR VISIT: Rituxan day # 1 SUBJECTIVE: My hands are hot and I am starting to have a head ache. OBJECTIVE: Last dose received on 10/01/11 VITALS: BP 127/73 Pulse 81 Temp(Src) 36.1 ??C (97 ??F) (Oral) Resp 18 SpO2 99% IF PAIN >5, INTERVENTION AND EFFECTIVENESS: na IV ACCESS: Peripheral IV Insertion/Assessment 12/31/11 1125 Right metacarpal vein mhqe-use-jksfvb catheter 22 gauge (Active) IV Dressing/Securement transparent semipermeable dressing applied;catheter securement device utilized 12/31/11 11:00 AM IV Device (WDL) WDL 12/31/11 11:00 AM IV Patency/Placement flushes w/o difficulty;positive blood return 12/31/11 11:00 AM HYDRATION: NS @ KVO 1140 TO 1215. Off with infusion ANTIEMETICS/PREMEDS, Methylprednisolone 100 mg IV @ 1140 to 1150 Benadryl 25 mg IV@ 1150 to 1200 Benadryl 25 mg IV from 5079-0711 Patient identification and orders checked against actual dose given at bedside by Elsa Souza RN TREATMENT/BLOOD/OTHER, Administrations This Visit riTUXimab (RITUXAN) 1,000 mg in sodium chloride 0.9% 500 mL infusion Date Action Dose Route User 12/31/2011 New Bag 1000 mg Intravenous ELSA SOUZA Administration times: See JAN First day day dosing schedule used. REACTIONS 1345: Patient presents with c/o hands feeling hot and is starting to have a headache. Rituxan infusion stopped. 25 mg IV Benadryl administered. Vitals signs - BP:118/66-HR: 83-RR: 14- Temp: 36.4. 1415- C/O warm/hot hands cleared up, still have a headache but improved. Rituxan infusion restarted at the same point and rate that is was stopped. Patient tolerated the rest of the infusion without difficulty. ASSESSMENT: Tolerated infusion well. PLAN: Follow up per rheumatology clinic. documented in this encounter Plan of Treatment Not on file documented as of this encounter Visit Diagnoses Diagnosis RA (rheumatoid arthritis)- Primary Rheumatoid arthritis documented in this encounter Administered Medications Inactive Administered Medications - up to 3 most recent administrations Medication Order MAR Action Action Date Dose Rate Site riTUXimab (RITUXAN) 1,000 mg in sodium chloride 0.9% 500 mL infusion 1,000 mg, Intravenous, ONCE, 1 dose, On 12/31/11 at 1045 New Bag 12/31/2011 12:15 PM EST 1,000 mg m L/hr documented in this encounter Care Teams Meat Clerk Relationship Specialty Start Date End Date Curt Cassidy MD [address], [facility] 3 [place] [address] PCP - General 10/10/10 documented as of this encounter
--- OUTSIDE RECORDS SUMMARY | 2024-10-30 01:38 | XMS_ITS | Encounter Summary ---
Author Organization [facility] Address [facility] [place] [address] Care Team Providers Care Field Hockey And Lacrosse Coach Name Role Phone Curt Cassidy MD Primary Care Provider [phone] Reason for Visit * Reason Comments Medication Refill actonel Encounter Details Date Type Department Care Team (Late st Contact Info) Description 05/11/2012 [place] [address] Rafael Sidhu MD [facility] [place] [address] Social History Tobacco Use Types Packs/Day Years [...] on filedocumented in this encounter Care Teams Field Hockey And Lacrosse Coach Relationship Specialty Start Date End Date Curt Cassidy MD [address] [facility], [facility] 3 [place] [address] PCP - General 10/10/10 documented as of this encounter
--- OUTSIDE RECORDS SUMMARY | 2024-10-30 01:38 | XMS_ITS | Encounter Summary ---
Author Organization [facility] Address [facility] [address] [place] [address] Care Team Providers Care Crop Adjuster Name Role Phone Curt Cassidy MD Primary Care Provider [phone] Encounter Details Date Type Department Care Team (Late st Contact Info) Description 03/08/2009 Orders [place] [address] Rafael Sidhu MD [facility] [place] [address] Social History Tobacco Use Types Packs/Day Years [...] FILM LIBRARY STORAGE ONLY ULTRASOUND STUDY Routine 03/08/2009 12:27 PM EDT documented in this encounter Results * FILM LIBRARY- STORAGE ONLY ULTRASOUND STUDY (03/08/2009 12:27 PM EDT) 03/08/2009 12:2 7 PM EDT Narrative [facility] - 03/24/2014 7:03 PM EDT This is a non-reportable exam. Procedure Note Miguel Angel Erickson - 03/24/2014 This is a non-reportable exam. Rafael Sidhu MD G FILM LIBRARY ORD ERABLES DH RAD [address] [facility] [place] [address] documented in this encounter Visit Diagnoses Not on filedocumented in this encounter Care Teams Crop Adjuster Relationship Specialty Start Date End Date Curt Cassidy MD [address] , [facility] 3 [place] [address] PCP - General 10/10/10 documented as of this encounter
--- OUTSIDE RECORDS SUMMARY | 2024-10-30 01:38 | XMS_ITS | Encounter Summary ---
Author Organization [facility] Address [facility] [place] [address] Care Team Providers Care Bead Picker Name Role Phone Curt Cassidy MD Primary Care Provider [phone] Reason for Visit * Reason Onset Date Comments Prior Authorization 05/24/2011 Rituxan Encounter Details Date Type Department Care Team (Late st Contact Info) Description 05/24/2011 [place] [address] Rafael Sidhu MD [facility] [place] [address] Prior Authorization (Rituxan) Social History Tobacco Use Types Packs/Day Years [...] * Telephone Encounter - Kathi Marks - 05/24/2011 12:21 PM EDT Patient Name: Marla Denton Date of : 1955 Subscriber Insurance: [place] MEDICAID ID# [id number] Ins. Physician: RAFAEL SIDHU Medication requested: RITUXAN Strength: 1000mg IV per protocol 1 Dose only REINA Is patient currently taking this medication? If yes, previous refill date: Refill: Diagnosis:714.0 RA Outcomes/Adverse reactions: Drug interactions: Note(s): 05/24/11 Prior authorization is not needed per my call to [place] Medicaid today, they ran a testclaim and it was approved and paid for. [place] Approval Effective Dates: [place] Approved By: ALLA DOMINGUEZ Authorization number (if given): Created By: Kathi Marks documented in this encounter Plan of Treatment Not on file documented as of this encounter Visit Diagnoses Not on filedocumented in this encounter Care Teams Bead Picker Relationship Specialty Start Date End Date Curt Cassidy MD [address] [facility], [address] [address] PCP - General 10/10/10 documented as of this encounter
--- OUTSIDE RECORDS SUMMARY | 2024-10-30 01:38 | XMS_ITS | Encounter Summary ---
Author Organization [facility] Address [facility] [place] [place] [address] Care Team Providers Care Manager Case Management Name Role Phone Curt Cassidy MD Primary Care Provider [phone] Reason for Visit * Reason Comments Rheumatoid Arthritis Encounter Details Date Type Department Care Team (Late st Contact Info) Description 11/05/2011 3:45 PM EST Follow-Up Rheumatology at [facility] [address] Rafael Sidhu MD [facility] [address] Rheumatoid arthritis; Anxiety Discharge Disposition: Home Social History Tobacco Use [...] Sign Reading Time Taken Comments Blood Pressure 136/75 11/05/2011 4:02 PM EST Pulse 92 11/05/2011 4:02 PM EST Temperature 36.6 ??C (97.9 ??F) 11/05/2011 4:02 PM ES T Respiratory Rate - - Oxygen Saturation 98% 11/05/2011 4:02 PM EST Inhaled Oxygen Concentration - - Weight 81.2 kg (179 lb) 11/05/2011 4:02 PM EST Height 151.1 cm (4' 11.5) 11/05/2011 4:02 PM ES T Body Mass Index 35.55 11/05/2011 4:02 PM EST documented in this encounter Progress Notes * Rafael Sidhu MD - 11/05/2011 4:10 PM EST Marla Denton is a 55-year-old female seen in 5 month follow up for ongoing evaluation and management of seronegative rheumatoid arthritis. She has had Rituximab 1000 mg x 1 in May 2011 and September 2011. When last seen, I injected her left knee for symptoms that sounded more like OA than RA.She reports that she thinks that the increased [...] Remicade Orencia, Kineret). Rituxan - last infusion 01/2010 (Complicated by severe headache without dyspnea or hives) Chronic shoulder and neck pain - stable dose methadone following shoulder replacement surgery. CSA, CellCept, Imuran, CTLA4-Ig have been considered, given lymphocytic infiltrates on tenosynovialbiopsies (per Dr. Sidhu's note). Current treatment - Arava 20 mg po daily, prednisone 7.5 mg po daily Last infusion was associated with a ZHANG afterward. Last rituxan 1000 mg x 11.11, getting 1000 mg every 3-4 months. 2. RLE edema Extensive/NEGATIVE workup (02/2007) Failed to respond to trials of enoxaparin, gabapentin, high dose steroids (12/2007) - Bilateral pulmonary emboli (CT scan) Coumadin therapy - ongoing. 3. Recurrent cellulitis - LE Followed by ID - Hibiclens wash weekly, in 2009. Much less at f/u in 8.10. Left 5th big toe infection, not clearly osteomyelitic vs cellulitis with RA. 4. DXA ([place] 2004: -1.3 SD low at spine; 1 [...] arthroscopy 04/25/01 showing lateral and medial meniscal tears. INTERVAL HISTORY: Ms. Denton reports she feels that her symptoms with the last rituximab infusionwere much better tolerated with reduced ZHANG in association with premeds including ativan and prednisone the night before the infusion. She thinks that she did well, but is starting to have some flaring, including left wrist swelling this am. Other new issue is the left knee pain with tenderness in the popliteal space and occasional increased pain with bending. No more skin infections since a body wide Hibiclens wash once weekly, doxycycline 100 mg by mouth twice a day, and Rifampin 300 mg twice a day for a seven-day course. She was seen again in March by and was able to complete the planned course of antibiotics with the exception of Rifampin which was taken 5 out of 7 days; discontinued due to leg cramping. Ms. Denton continues with Hibiclenstotal body wash once weekly. In addition to prior current meds Arava, she is taking prednisone 7.5 mg daily. Ms. Denton continues with Arava 20 mg once daily, methadone for pain management, calciumand vitamin D. She is taking Actonel 35 mg once weekly. HPI: In 02/2007, Marla presented with RLE edema that was felt to be RSD -complex regional pain syndrome after extensive and negative w/u for right LE swelling that is markedly tender beginning in 02/22. She has been treated with steroids, Gabapentin, enoxaparin for 3-4 weeks tapered her steroids, held her MTX and Orencia and has been maintained on Gabapentin 3862-3265 mg/d without any clear benefit. At last visit, she had increased abd girth. We also have given her a 3 week trial of enoxaparin and increased gabapentin to 800mg qid. Since her last visit, this sx process has crossed over to involve her left foot with burning pain on dependency. During this period, there has been no chest pain,obvious abdominal pain although she notes that she is gaining weight, no SOB, no overt skinrash or breakdown. Joints relatively stable. Summary of diagnostic ork up to date has inovlved multiple doppler studies all relatively negative.A positive D-dimer was seen once. No iliofemoral vein or inferior vena cava clot seen. Other studies include: 1. 04/05 MRI of RLE No signs of venous obstruction, no obvious changes consistent with either cellulitis or RSD. There is no muscle or bone involvement. There is no fluid collection nor findings c/w ruptured Mckeon's cyst. There is considerable fluid signal in the subcutaneous fat and superficial fascia. Interestingly, THERE was evidence for contralateral leg involvement. 2. Notably, patient reports an episode of pulmonary embolism without obvious leg swelling in 1991 (information not in electronic medical record) diagnosed by V/Q scan. She had a negative V/Q scan in 03/11/07 3. Bone scan, whole body: Diffusely increased tracer activity in the right lower extremity below the knee, seen on both blood pool and delayed bone phase images, without focal localization to suggesta process such as RSD or osteomyelitis. The findings are more consistent with a diffuse soft tissue inflammatory process. 2. Severe seronegative RA Pt has failed TNF antagonists and has had four responses to Rituxan in 03/21,11/22, 07/23 and 02/21 flaring each time after approximately 6 months despite continued MTX, Plaquenil and Arava therapy. At each flare her CD19 count normalized. She received her 3rd course of Rituxan, finishing 08/17/05, given along with Cytoxan 1000 mg with her first dose on 08/03. In 08/22 her arthritis was active and she had B cell depletion by CD19 count. I injected her left elbow at that timeand increased her MTX to 20 mg/week with plan to consider injection if no benefit noted. We repeated Rituxan in February 2006, with only a short term benefit. She still had ~30 minutes of pain and stiffness in her feet. Hands have been relatively good. We have considered CSA, CellCept, Imuran, CTLA4-Ig has been considered, given lymphocytic infiltrates on tenosynovial biopsies. Her RLE swelling began in the spring while on MTX and Orencia for her severe seronegative RA, but has since crossed over to involve the contralateral leg at her last visit, despite aggressive therapy for Complex Regional Pain Syndrome. She has an extensive w/u but ultimately no diagnosis was reached and the patient failed to respond to trials of enoxaparin, gabapentin, high dose steroids. Subsequently on 01/01/08 was diagnosed as having bilateral (2 left, 1 right) pulmonary emboli by CT scan. Started on enoxaparin and now on Coumadin, tolerating this. These continue to do well today. Her problem list includes: 1) Rheumatoid arthritis, erosive and destructive. Switched from methotrexate and Enbrel to Arava in due to lack of efficacy. Multiple trials of Remicade beginning 01/16, never clearly providing significant extended benefit, but also associated with difficulty in scheduling appointments. Kineret 100 mg/d begun 07/20, d/shantell 12/29/02 due to lack of efficacy Combined Arava/MTX since spring 2002. Her last Rituxan drug was in 02/21. Prior courses of Rituxan were 03/21, 10/21, 07/23. 2) S/P C-/ surgery. 3) S/P left extensor tendon rupture and repair. 4) S/P left trigger thumb. 5) S/P right total shoulder replacement with chronic persistent pain requiring narcotics.6) Left thigh fasciitis/cellulitis 1998, etiology unknown,resolved ? associated with sulfasalazine. 7) S/P APARNA/BSO . 8) Persistent right knee popliteal cysts with pain, ACL ganglion cyst, considering arthroscopy with Dr. Mnotanez. 9) Right knee meniscal cyst - arthroscopy 04/25/01 showing lateral and medial meniscal tears. 9) Decline in bone density, but still normal DEXA 2001. DEXA 2005 in [place]:-1.3 SD low at spine, 1 SD at hip. Current medications: updated today Physical exam reveals a chronically ill-appearing overweight white female not Cushingoid Walking more easily with a cane due to left knee pain. Blood pressure 136/75, pulse 92, temperature 36.6 ??C (97.9 ??F), height 151.1 cm (4' 11.5), weight 81.194 kg (179 lb), SpO2 98.00%.Her wrist and hand exam no longer demonstrate synovitis at the radiocarpal or ulnocarpal joints and there is little if anyswelling of bilateral 2nd/3rd mcp joints and right 5th mcp. Her left knee is no longer swollen and much less tender but there is no obvious effusion and no longer has tenderness in the popliteal fossa. She has nearly full extension and 120 degrees of flexion. Ankles okay. MTP joints splaying and tender. Impression/Plan 1. Seronegative RA with hypergammaglobulinemia on prednisone + Arava, parotid enlargement who is now under better control with RTX 1000 mg every 3 months. Will try premedicating with lorazepam 2 mg 1hour before and after infusions as that seems to help her with the bad ZHANG following the infusion. 2. Left knee arthritis with sx c/w Mckeon's cyst, more c/w OA: much improved. 3. 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 Plan: 1. Ask Dr. Cassidy to check CBC, CRP and LFTs at next INR 2. Repeat RTX in December and March 2012 (ordered) 3. I will see in March on the day of Rituximab infusion Level 4 f/u. Rafael Sidhu M.D. Staff Grommet Man documented in this encounter Procedure Notes * Provider, Scanning - 01/18/2012 10:30 AM ESTAssociated Order(s): SCAN DOC: CHEMOTHERAPY documented in this encounter Plan of Treatment Not on file documented as of this encounter Procedures Procedure Name Priority Date/Time Associated Diagnosis Comments CHEMOTHERAPY SCAN 01/18/2012 10: 30 AM EST documented in this encounter Results * SCAN DOC: CHEMOTHERAPY (01/18/2012 10:30 AM EST) Narrative 01/18/2012 10:30 AM EST Procedure Note Provider, Scanning - 01/18/2012 10:30 AM EST Scanning Provider MEDIA MGR SCAN EXT O RDR/RSLT documented in this encounter Visit Diagnoses Diagnosis Rheumatoid arthritis(714.0) Rheumatoid arthritis Anxiety Anxiety state, unspecified documented in this encounter Care Teams Manager Case Management Relationship Specialty Start Date End Date Curt Cassidy MD [address], [facility] [address] [place] [address] PCP - General 10/10/10 documented as of this encounter
--- OUTSIDE RECORDS SUMMARY | 2024-10-30 01:38 | XMS_ITS | Encounter Summary ---
Author Organization [facility] Address [facility] [place] [address] Care Team Providers Care Product Manager E Commerce Name Role Phone Curt Cassidy MD Primary Care Provider [phone] Encounter Details Date Type Department Care Team (Late st Contact Info) Description 08/28/2013 [place] [id number] Lorie Fuller MD [facility] [place] [address] Social History Tobacco Use Types Packs/Day Years Used Date Smoking Tobacco: Never Alcohol Use Standard Drinks/Week Comments Not Asked 0 (1 standard drink = 0.6 oz pur e alcohol) Sex and Gender Information Value Date Recorded Sex Assigned at Not on file Gender Identity Not on file Sexual Orientation Not on file documented as of this encounter Miscellaneous Notes * Telephone Encounter - Lucy William - 08/28/2013 4:04 PM EDT Ask patient to verify the following: Full name: Marla Denton : 1955 Phone number: [phone] (home) Mailing address: [address] [place] [address] [place] [address] InTake: R ELBOW PAIN, EPICONDYLITIS How long have you been experiencing these symptoms? 2009 Has anyone ever seen you before for this issue? LEANDRO GUN[facility] Is this a work related injury? NO If yes, what was your DOI? If no, is this a sports related injury? NO If yes, what was your DOI? Have you recently had any of the following studies or treatments? ?? X-Ray - 07/2013, [facility] ?? MRI ?? CT Scan ?? LABS ?? Physical Therapy ?? INJECTION Have you seen an Orthopaedic surgeon for this condition? YES Who did you see? DR. GUNTER Where were you seen (facility)? [facility] When? 2012 Phone # Fax# Have you had surgery for this issue? NO If different than above: Who performed surgery? Where were you seen (facility)? When? Phone # Fax# Will need to retrieve OPERATIVE REPORT and IMPLANT STICKERS. (if patient has joint replacement or hardware fixated); retrieve for opposite side. documented in this encounter Plan of Treatment Not on file documented as of this encounter Visit Diagnoses Not on filedocumented in this encounter Care Teams Product Manager E Commerce Relationship Specialty Start Date End Date Curt Cassidy MD [address], [facility] [address] [place] [address] PCP - General 10/10/10 documented as of this encounter
--- OUTSIDE RECORDS SUMMARY | 2024-10-30 01:38 | XMS_ITS | Referral Summary ---
Author Organization [facility] Address [address] [place] [address] Care Team Providers Care Automotive Window Tinter Name Role Phone Unknown, Provider Primary Care Provider Unava ilable Social History Tobacco Use Types Packs/Day Years Used Date Smoking Tobacco: Never Assessed Comments Unknown Sex and Gender Information Value Date Recorded Sex Assigned at Not on file Legal Sex Female 18:06 EDT Gender Identity Not on file Sexual Orientation Not on file Plan of Treatment Not on file Care Teams Automotive Window Tinter Relationship Specialty Start Date End Date Unknown, Provider, PCP - General 12/19/21
--- OUTSIDE RECORDS SUMMARY | 2024-10-30 01:38 | XMS_ITS | Encounter Summary ---
Author Organization [facility] Address [address] [place] [address] Care Team Providers Care Microfilm Operator Name Role Phone Unknown, Provider Primary Care Provider Darryl chong Encounter Details Date Type Department Care Team (Late st Contact Info) Description 02/08/2023 Lab Requisition [facility] Pathology & Laboratory Medicine - [address] [address] Outr Resulting Lab, Provider Social History Tobacco [...] Procedure Name Priority Date/Time Associated Diagnosis Comments LYME AB Routine 02/07/2023 16:48 EDT documented in this encounter Results * LYME AB (02/07/2023 16:48 EDT) Lyme Ab Negative Negative 02/11/2023 12:46 EDT [facility] Blood VENOUS BLOOD / Unknown 02/07/2023 16:48 EDT 02/08/2023 18:47 EDT us Provider Outr Resulting Lab IMMUNOLOGY AND SEROL OGY ORDERABLES Final Result [facility] [address] [place] [address] documented in this encounter Visit Diagnoses Not on filedocumented in this encounter Care Teams Microfilm Operator Relationship Specialty Start Date End Date Unknown, Provider, PCP - General 12/19/21 documented as of this encounter
--- OUTSIDE RECORDS SUMMARY | 2024-10-30 01:38 | XMS_ITS | Encounter Summary ---
Author Organization [facility] Address [facility] [place] [address] Care Team Providers Care Compliance Engineer Name Role Phone Curt Cassidy MD Primary Care Provider [phone] Encounter Details Date Type Department Care Team (Latest Contact Info) Description 07/18/2011 2:36 PM EDT - 07/18/2011 11:59 PM EDT Hospital Encounter XRay at [address] [place] [address] CLIN[address], DR [facility]AYWARD Discharge Disposition: Home Social History Tobacco Use [...] Date ergocalciferol (VITAMIN D) 50,000 unit capsule 39050 unit, PO, once a month 10/23/2010 predniSONE [...] 10/23/2010 07/08/2012 documented as of this encounter Plan of Treatment Not on file documented as of this encounter Visit Diagnoses Not on filedocumented in this encounter Care Teams Compliance Engineer Relationship Specialty Start Date End Date Curt Cassidy MD [address] [facility], [facility] 3 [place] [address] PCP - General 10/10/10 documented as of this encounter
--- OUTSIDE RECORDS SUMMARY | 2024-10-30 01:38 | XMS_ITS | Encounter Summary ---
Author Organization [facility] Address [facility] [address] [address] [place] [address] Care Team Providers Care Heat Treating Operator Name Role Phone Curt Cassidy MD Primary Care Provider Encounter Details Date Type Department Care Team (Late st Contact Info) Description 10/23/2010 2:15 PM EST [place] [address] [facility] [place] [address] Discharge Disposition: Home Social History Tobacco Use [...] on filedocumented in this encounter Care Teams Heat Treating Operator Relationship Specialty Start Date End Date Curt Cassidy MD [address] [facility], [facility] 3 [place] [address] PCP - General 10/10/10 documented as of this encounter
--- OUTSIDE RECORDS SUMMARY | 2024-10-30 01:38 | XMS_ITS | Encounter Summary ---
Author Organization [facility] Address [facility] [place] [address] Care Team Providers Care Senior Librarian Name Role Phone Curt Cassidy MD Primary Care Provider [phone] Encounter Details Date Type Department Care Team (Latest Contact Info) Description 06/15/2013 4:59 PM EDT - 06/15/2013 11:59 PM EDT Hospital Encounter XRay at [address] [place] [address] Rheumatoid arthritis Social History Tobacco Use Types [...] Date ergocalciferol (VITAMIN D) 50,000 unit capsule 44426 unit, PO, once a month 10/23/2010 predniSONE (DELTASONE) 5 mg tabletIndications:Rheuma toid arthritis(714.0),Lateral epicondylitis of elbow Take 2 tablets by mouth daily. 60 tablet 3 06/15/2013 11/05/2013 doxycycline (VIBRA-TABS) 100 mg tabletIndications:Cellul itis and abscess of leg Take 1 tablet by mouth daily. 90 tablet 3 06/15/2013 07/22/2014 tofacitinib 5 mg TabIndications:Rheumatoi d arthritis(714.0) Take 1 tablet by mouth 2 times daily. 60 tablet 11 06/15/2013 09/21/2013 fentaNYL (DURAGESIC) 75 mcg/hrIndications:Leg edema,Joint pain Place 1 patch onto the skin every 3 days. 10 patch 0 07/14/2012 07/14/2013 gabapentin (NEURONTIN) 300 mg capsuleIndications:Neuro jonathan Take 2 capsules by mouth 3 times daily. 90 capsule 12 07/08/2012 11/05/2013 ACTONEL 35 mg tablet TAKE ONE TABLET BY MOUTH ONCE A WEEK(TAKE WITH A FULL GLASS OF WATER AND ON AN EMPTY STOMACH WITHOUT FOOD FOR 30 MINUTES AFTER TAKING) 12 tablet 3 05/11/2012 06/18/2013 calcium carbonate 648 mg tablet Take 650 [...] Diagnosis Comments XR FOOT MIN 3 VIEWS BILAT Routine 06/15/2013 5:14 PM EDT Rheumatoid arthritis documented in this encounter Results * XR feet bilateral minimum 3 views (06/15/2013 5:14 PM EDT) Anatomical Region Laterality Modality Foot Bilateral Radiographic Lola ging 06/15/2013 5:14 PM EDT Narrative 06/15/2013 6:38 PM EDT Examination BILATERAL FEET MINIMUM 3 VIEWS Clinical History seronegative rheumatoid arthritis with foot pain Comparison None Technique 3 views each Findings Bones: Normal bone mineralization. ??The hallux valgus deformity of the right 1st MTP joint is quite prominent. No fracture. Soft tissues: Symmetric. Normal appearance of the Achilles tendon. A tiny enthesophyte at the left Achilles insertion. Joints: 1. Interphalangeal joints-normal 2. ??MTP joints-tiny bilateral erosions in the in the the 4th and 5th metatarsal head is. The bilateral 4th and 5th MTP joint spaces are narrowed, related to cartilage loss. The 5th MTP joint is medially subluxed. 3. LisFranc joint-normal alignment no erosions 4. Talonavicular joint- normal Impression ? 1. Tiny erosions in bilateral 4th and 5th metatarsal headS with diffuse joint space narrowing related to known inflammatory arthropathy. ? 2. 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 Procedure Note Lisa Estrada MD - 06/15/2013 Examination BILATERAL FEET MINIMUM 3 VIEWS Clinical History seronegative rheumatoid arthritis with foot pain Comparison None Technique 3 views each Findings Bones: Normal bone mineralization. The hallux valgus deformity of the right 1stMTP joint is quite prominent. No fracture. Soft tissues: Symmetric. Normal appearance of the Achilles tendon. A tiny enthesophyteat the left Achilles insertion. Joints: 1. Interphalangeal joints-normal 2. MTP joints-tiny bilateral erosions in the in the the 4th and 5thmetatarsal head is. The bilateral 4th and 5th MTP joint spaces are narrowed, relatedto cartilage loss. The 5th MTP joint is medially subluxed. 3. LisFranc joint-normal alignment no erosions 4. Talonavicular joint- normal Impression 1. Tiny erosions in bilateral 4th and 5th metatarsal headS withdiffuse joint space narrowing related to known inflammatory arthropathy. 2. 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 Rafael Sidhu MD IMG DX ORDERABLES documented in this encounter Visit Diagnoses Diagnosis Rheumatoid arthritis(714.0) Rheumatoid arthritis documented in this encounter Care Teams Senior Librarian Relationship Specialty Start Date End Date Curt Cassidy MD [address] [facility], [address] [place] [address] PCP - General 10/10/10 documented as of this encounter
--- OUTSIDE RECORDS SUMMARY | 2024-10-30 01:38 | XMS_ITS | Encounter Summary ---
Author Organization [facility] Address [facility] [place] [address] Care Team Providers Care Drill Press Hand Name Role Phone Curt Cassidy MD Primary Care Provider [phone] Encounter Details Date Type Department Care Team (Late st Contact Info) Description 08/06/2013 Orders [place] [address] Mayco Montanez Jr., MD [facility] [place] [address] Social History Tobacco Use Types Packs/Day Years [...] Diagnosis Comments FILM LIBRARY STORAGE ONLY DX ELBOW Routine 08/06/2013 5:25 PM EDT documented in this encounter Results * Film Library- Storage only DX Elbow (08/06/2013 5:25 PM EDT) 08/06/2013 5:25 PM EDT Narrative RAD - 07/13/2014 11:47 PM EDT This is a non-reportable exam. Procedure Note Joe Erickson - 07/13/2014 This is a non-reportable exam. Mayco Montanez Jr., MD IMG FILM LIBRARY ORDERABLES RAD [address] [facility] [place] [address] documented in this encounter Visit Diagnoses Not on filedocumented in this encounter Care Teams Drill Press Hand Relationship Specialty Start Date End Date Curt Cassidy MD [address], [facility] 3 [place] [address] PCP - General 10/10/10 documented as of this encounter
--- OUTSIDE RECORDS SUMMARY | 2024-10-30 01:38 | XMS_ITS | Encounter Summary ---
Author Organization [facility] Address [facility] [place] [place] [address] Care Team Providers Care Route Process Administrator Name Role Phone Curt Cassidy MD Primary Care Provider [phone] Encounter Details Date Type Department Care Team (Late st Contact Info) Description 07/09/2012 [place] [phone] Sarah Hill RN Social History Tobacco Use [...] encounter Miscellaneous Notes * Telephone Encounter - Sraah Hill RN - 07/09/2012 9:41 AM EDT Prior Authorization given to Pedro Pablo De La Cruz to complete. documented in this encounter Plan of Treatment Not on file documented as of this encounter Visit Diagnoses Not on filedocumented in this encounter Care Teams Route Process Administrator Relationship Specialty Start Date End Date Curt Cassidy MD [address] [facility], [facility] 3 [place] [address] PCP - General 10/10/10 documented as of this encounter
--- OUTSIDE RECORDS SUMMARY | 2024-10-30 01:38 | XMS_ITS | Encounter Summary ---
Author Organization [facility] Address [facility] [place] [address] Care Team Providers Care Swine Genetics Researcher Name Role Phone Curt Cassidy MD Primary Care Provider [phone] Reason for Visit * Reason Comments Rheumatoid Arthritis Encounter Details Date Type Department Care Team (Late st Contact Info) Description 06/15/2013 3:45 PM EDT [place] [address] Rafael Sidhu MD [facility] [place] [address] [place] [address] Rheumatoid arthritis (Primary Dx); Lateral epicondylitis of elbow; Bilateral leg edema; Cellulitis and abscess of leg Discharge Disposition: Home Social History Tobacco Use [...] Sign Reading Time Taken Comments Blood Pressure 131/69 06/15/2013 4:01 PM EDT Pulse 90 06/15/2013 4:01 PM EDT Temperature 36.7 ??C (98.1 ??F) 06/15/2013 4:01 PM ED T Respiratory Rate - - Oxygen Saturation 97% 06/15/2013 4:01 PM EDT Inhaled Oxygen Concentration - - Weight 81.6 kg (180 lb) 06/15/2013 4:01 PM EDT Height 151.1 cm (4' 11.5) 06/15/2013 4:01 PM ED T Body Mass Index 35.75 06/15/2013 4:01 PM EDT documented in this encounter Patient Instructions * Patient Instructions* Rafael Sidhu MD - 06/15/2013 4:23 PM EDT 1. Labs and x-rays today 2. Arrange for doxycycline 100 mg at bedtime each night to prevent infection 3. Start on tofacitinib (Xeljanz) 5 mg twice daily 4. Be vigilant for signs of recurrent shingles and stop tofactinib if any signs of any infection and call MD 5. Return 3 months 6. For the tennis elbow in right wrist, you want to buy a cock-up splint that keeps your fingers partially straightened. You can purchase at most [employer] or [employer], wear at night or during day documented in this encounter Progress Notes * Rafael Sidhu MD - 06/15/2013 4:00 PM EDT Marla Denton is a 57-year-old female seen in 11 month follow up for severe complicated RA maintained on RTX 1000 mg every 3 months with her last infusion in 2011. In January 2013, she had a very complicated admission for what sounds like pyomyositis/cellulitis of left lower extremity with MRSA that eventually resolved. She stopped her Arava after that time and has only been taking prednisone 10 mg/d. Today, she reports the following issues: 1. Severe right elbow pain 2. Chronic foot>>hand pain each day lasting hours 3. Desire to discuss the use of tocilizumab therapy as an option in her treatment. 4. Mild-moderate left knee pain and swelling last injected in 2011. Review of Systems Constitutional: No fevers, chills, [...] osteomyelitic vs cellulitis with RA. 4. DXA ([place] 2004: -1.3 SD low at spine; 1 [...] due to left knee pain Blood pressure 131/69, pulse 90, crnjbxqkaxc84.7 ??C (98.1 ??F), temperature source Oral, height 151.1 cm (4' 11.5), weight 81.647 kg (180 lb), SpO2 97.00%.HEENT: normal. Neck decreased flexion. Shoulders: decreased abduction left shoulder, right not tested. Elbows: Marked tenderness of entire dorsal compartment of right right forearm up tothe lateral epicondyle. The elbow moves normally. Wrists unimpressive for synovitis Hands: little if any swelling of bilateral 2nd/3rd mcp joints with tenderness and little swelling.. . Her left kneehas popliteal fullness and a small effusion. Her right TKR is well healed and there is diffuse swelling to the dorsum of the foot. Left Achilles very tender to the touch. Ankles okay MTP joints splaying and very tender. VARGAS 28 Joint Count TJC: 4 SJC 2 Patient global 6, Physician global 5.5 CDAI 17.5 Impression: Persistent active RA who has failed multiple agents in the past, who has travel limitations making me favor tofacitinib 5 mg bid over tocilizumab. She has had shingles in the last 5+ years so I do not think there is much of an increased risk for recurrence and it will not be covered. Second, the real infectious risk is in her legs and I will start her on daily doxycycline 100 mg at [facility] Her right limb pain appears to be a relatively diffuse tendonitis involving lateral epicondyle. It is unclear how much inflammation this represents, but the diffuse nature makes an Eclipse splint impossible. I will recommend use of a cockup splint instead. Plan: 1. RA: with hypergammaglobulinemia Will evaluate with foot films and labs and start tofacitinib 5 mg bid with f/u in 3 months 2. Right lateral epicondylitis and forearm ravi: Cock up splint recommended. 3. LE edema: At some point in time, Ms. Denton has had every imaging study for this. She is on anticoagulation and we will add doxycycline 100 mg daily as chronic suppression of her recurrent cellulitis 4. 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 Level 4 F/u visit Rafael Sidhu M.D. Staff Bioinformaticist Addendum: CRP 9 all others fine. Note sent to start tofa 5 mg/bid and doxy 100 mg/d. X-rays showed tiny erosions in feet documented in this encounter Plan of Treatment Scheduled Orders Name Type Priority Associated Diagnoses Orde r Schedule Comprehensive metabolic panel (non-fasting) Lab Routine Rheumatoid arthritis Expected: 06/15/2013, Expires: 06/16/2014 High Sensitivity CRP Lab Routine Rheumatoid arthritis Expected: 06/15/2013, Expires: 06/16/2014 CBC (with Diff) Lab Routine Rheumatoid arthritis Expected: 06/15/2013 (Approximate), Expires: 06/16/2014 Sedimentation rate Lab Routine Rheumatoid arthritis Expected: 06/15/2013, Expires: 06/16/2014 documented as of this encounter Procedures Procedure Name Priority Date/Time Associated Diagnosis Comments DIFFERENTIAL, AUTOMATED Routine 06/15/2013 4:51 PM EDT SEDIMENTATION RATE Routine 06/15/2013 4: 51 PM EDT Rheumatoid arthritis CBC (WITH DIFF) Routine 06/15/2013 4:51 PM EDT Rheumatoid arthritis CRP, CARDIAC RISK (HS CRP) Routine 06/15/2013 4:51 PM EDT Rheumatoid arthritis COMPREHENSIVE METABOLIC PANEL Routine 06/15/2013 4:51 PM EDT Rheumatoid arthritis documented in this [...] osteoarthropathy. Rafael Sidhu MD IMG DX ORDERABLES * Differential, Automated (06/15/2013 4:51 PM EDT) Neutrophil % 61.7 34.0 - 71.0 % CERNER MILLENNIUM Neutrophil Absolute 5.54 1.50 - 6.30 x10(3)/mcL CERNER MILLENNIUM Lymph % 26.8 19.0 - 53.0 % CERNER MILLENNIUM Lymphocytes Abs 2.4 1.0 - 3.6 x10(3)/mcL CERNER MILLENNIUM Monocyte % 7.9 4.0 - 13.0 % CERNER MILLENNIUM Monocyte Abs 0.7 0.2 - 1.0 x10(3)/mcL CERNER MILLENNIUM Eos % 3.0 0.0 - 7.0 % CERNER MILLENNIUM Eosinophils Abs 0.3 0.0 - 0.5 x10(3)/mcL CERNER MILLENNIUM Basophil [...] 0.05 x10(3)/mcL CERNER MILLENNIUM Blood specimen (specimen) 06/15/2013 4:51 PM EDT 06/15/2013 4:54 PM EDT Rafael Sidhu MD HEMATOLOGY ORDERABLE S [facility] MILLENNIUM * (ABNORMAL) Comprehensive metabolic panel (non-fasting) (06/15/2013 4:51 PM EDT) [facility] Glucose 93 60 - 199 mg/dL CERNER MILLENNIUM Comment:Diabetes: >=200 mg/d L plus symptoms Blood Urea Nitrogen 9 8 - 18 mg/dL CERNER MILLENNIUM Creatinine 0.89 0.70 - 1.20 mg/dL CERNER MILLENNIUM Comment: Please note that the pediatric reference intervals supplied above were not validated at [facility]. Results from pediatric patients should be interpreted [...] MD CHEMISTRY ORDERABLES CERGRACIELA MILLENNIUM * (ABNORMAL) Sedimentation rate (06/15/2013 4:51 PM EDT) Sedimentation Rate Automated 33(H) 0 - 20 mm/hr CERNER MILLENNIUM Blood specimen (specimen) 06/15/2013 4:51 PM EDT 06/15/2013 4:54 PM EDT Narrative Resulting Agency Comment Spec In Lab Rafael Sidhu MD HEMATOLOGY ORDERABLE S Performing Organization Address [facility] Phone Number JAZMIN PETE * High Sensitivity CRP (06/15/2013 4:51 PM EDT) C-Reactive Protein High Sensitivity 9.0 mg/L [facility] Comment: Interpretations: 1) For accurate cardiac risk [...] Performing Organization Address [facility] de Phone Number JAZMIN PETE * CBC (with Diff) (06/15/2013 4:51 PM [...] Platelet Volume 9.3 9.0 - 12.0 fL CERGRACIELA CARLISLEENNIUM Blood specimen (specimen) 06/15/2013 4:51 PM EDT 06/15/2013 4:54 PM EDT Narrative Resulting Agency Comment Spec In Lab Rafael Sidhu MD HEMATOLOGY ORDERABLE S JAZMIN PETE documented in this encounter Visit Diagnoses Diagnosis Rheumatoid arthritis(714.0)- Primary Rheumatoid arthritis Lateral epicondylitis of elbow Lateral epicondylitis of elbow Bilateral leg edema Edema Cellulitis and abscess of leg Cellulitis and abscess of leg, except foot Rheumatoid arthritis(714.0) Rheumatoid arthritis documented in this encounter Care Teams Swine Genetics Researcher Relationship Specialty Start Date End Date Curt Cassidy MD [address], [facility] [address] [place] [address] PCP - General 10/10/10 documented as of this encounter
--- OUTSIDE RECORDS SUMMARY | 2024-10-30 01:38 | XMS_ITS | Encounter Summary ---
Author Organization [facility] Address [facility] [address] Care Team Providers Care Mobile Home Laborer Name Role Phone Curt Cassidy MD Primary Care Provider Encounter Details Date Type Department Care Team (Late st Contact Info) Description 08/28/2013 Orders [place] [address] Lorie Fuller MD [facility] [place] [address] Elbow pain (Primary Dx) Social History Tobacco Use Types [...] of this encounter Visit Diagnoses Diagnosis Elbow pain- Primary Pain in joint, upper arm documented in this encounter Care Teams Mobile Home Laborer Relationship Specialty Start Date End Date Curt Cassidy MD [address] , [facility] [address] [place], [place] [id number] PCP - General 10/10/10 documented as of this encounter
--- OUTSIDE RECORDS SUMMARY | 2024-10-30 01:38 | XMS_ITS | Encounter Summary ---
Author Organization [facility] Address [address] [place] [address] Care Team Providers Care Data Engineer Name Role Phone Unknown, Provider Primary Care Provider Darryl chong Encounter Details Date Type Department Care Team (Late st Contact Info) Description 10/29/2022 Lab Requisition [facility] Pathology & Laboratory Medicine - [address] [address] Outr Resulting Lab, Provider Social History Tobacco [...] Procedure Name Priority Date/Time Associated Diagnosis Comments IMMUNOGLOBULINS Routine 10/29/2022 12:05 EST documented in this encounter Results * IMMUNOGLOBULINS (10/29/2022 12:05 EST) IgG 1,418 610 - 1,616 mg/dL 10/30/2022 10:27 EST [facility] IgA 95 85 - 499 mg/dL 10/30/2022 10:27 EST [facility] IgM 104 35 - 242 mg/dL 10/30/2022 10:27 EST [facility] Blood VENOUS BLOOD / Unknown 10/29/2022 12:05 EST 10/29/2022 22:11 EST us Provider Outr Resulting Lab CHEMISTRY & BLOOD GA S ORDERABLES Final Result [facility] [address] [place] [address] documented in this encounter Visit Diagnoses Not on filedocumented in this encounter Care Teams Data Engineer Relationship Specialty Start Date End Date Unknown, Provider, PCP - General 12/19/21 documented as of this encounter
--- OUTSIDE RECORDS SUMMARY | 2024-10-30 01:38 | XMS_ITS | Clinical Summary ---
Author Organization [facility] Address [address] [place] [address] Care Team Providers Care Ruling Technician Name Role Phone Unknown, Provider MD Primary Care Provider Unava ilable Social History Tobacco Use Types Packs/Day Years Used Date Smoking Tobacco: Never Assessed Comments Unknown Sex and Gender Information Value Date Recorded Sex Assigned at Not on file Legal Sex Female 18:06 EDT Gender Identity Not on file Sexual Orientation Not on file Plan of Treatment Health Maintenance Due Date Last Done Comments Hepatitis C Screen 1955 Fall Risk Screening 2022 COVID-19 Vaccine (2023-25 season) 2024 RSV Immunization ( o r 60+ Years) (1 - 1-dose 75+ series) 2032 Care Teams Ruling Technician Relationship Specialty Start Date End Date Unknown, Provider, PCP - General 12/19/21
--- OUTSIDE RECORDS SUMMARY | 2024-10-30 01:38 | XMS_ITS | Encounter Summary ---
Author Organization [facility] Address [facility] [place] [address] Care Team Providers Care Nickel Plater Name Role Phone Curt Cassidy MD Primary Care Provider [phone] Encounter Details Date Type Department Care Team (Late st Contact Info) Description 08/30/2013 External Results XRay at [address] [place] [address] Provider, Scanning Social History Tobacco Use Types [...] Procedure Name Priority Date/Time Associated Diagnosis Comments DIAGNOSTIC RADIOLOGY SCAN Routine 08/06/2013 documented in this encounter Results * Scan Doc: Diagnostic Radiology (08/06/2013) Anatomical Region Laterality Modality Other Scanning Provider MEDIA MGR SCAN EXT O RDR/RSLT documented in this encounter Visit Diagnoses Not on filedocumented in this encounter Care Teams Nickel Plater Relationship Specialty Start Date End Date Curt Cassidy MD [address] [facility] [address] [place] [address] PCP - General 10/10/10 documented as of this encounter
--- OUTSIDE RECORDS SUMMARY | 2024-10-30 01:38 | XMS_ITS | Encounter Summary ---
Author Organization [facility] Address [facility] [address] [place] [address] Care Team Providers Care Clinical Audiologist Name Role Phone Curt Cassidy MD Primary Care Provider [phone] Encounter Details Date Type Department Care Team (Late st Contact Info) Description 02/01/2013 Orders [place] [address] Sebastian Loyd MD [facility] [place] [address] Social History Tobacco Use Types Packs/Day Years [...] Diagnosis Comments FILM LIBRARY STORAGE ONLY DX LOWER EXTREMITY Routine 02/01/2013 10:40 AM EDT documented in this encounter Results * Film Library- Storage only DX Lower Extremity (02/01/2013 10:40 AM EDT) 02/01/2013 10:4 0 AM EDT Narrative RAD - 03/24/2014 7:03 PM EDT This is a non-reportable exam. Procedure Note Miguel Angel Erickson - 03/24/2014 This is a non-reportable exam. Sebastian Loyd MD [facility] FILM LIBRARY ORD ERABLES RAD [address] [place] [address] documented in this encounter Visit Diagnoses Not on filedocumented in this encounter Care Teams Clinical Audiologist Relationship Specialty Start Date End Date Curt Cassidy MD [address], [facility] [[email or web address] [address] [place] [address] PCP - General 10/10/10 documented as of this encounter
--- OUTSIDE RECORDS SUMMARY | 2024-10-30 01:38 | XMS_ITS | Encounter Summary ---
Author Organization [facility] Address [facility] [place] [address] Care Team Providers Care Strap Stitcher Name Role Phone Curt Cassidy MD Primary Care Provider [phone] Encounter Details Date Type Department Care Team (Late st Contact Info) Description 08/28/2013 Orders [place] [address] Jose Cunningham MD [facility] [place] [address] Knee pain Social History Tobacco Use Types [...] as of this encounter Results * XR JOINT TEAM [...] Knee pain Pain in joint, lower leg Knee pain Pain in joint, lower leg documented in this encounter Care Teams Strap Stitcher Relationship Specialty Start Date End Date Curt Cassidy MD [address], [facility] [address] [place] [address] PCP - General 10/10/10 documented as of this encounter
--- OUTSIDE RECORDS SUMMARY | 2024-10-30 01:38 | XMS_ITS | Encounter Summary ---
Author Organization [facility] Address [facility] [place] [address] Care Team Providers Care Compliance Analyst Name Role Phone Curt Cassidy MD Primary Care Provider [phone] Reason for Visit * Reason Comments Rheumatoid Arthritis Encounter Details Date Type Department Care Team (Late st Contact Info) Description 05/14/2011 2:15 PM EDT [place] [address] Rafael Sidhu MD [facility] [place] [place] [address] Rheumatoid arthritis (Primary Dx) Discharge Disposition: Home Social History [...] Sign Reading Time Taken Comments Blood Pressure 119/69 05/14/2011 2:47 PM EDT Pulse 89 05/14/2011 2:47 PM EDT Temperature 36.6 ??C (97.9 ??F) 05/14/2011 2:47 PM ED T Respiratory Rate - - Oxygen Saturation 96% 05/14/2011 2:47 PM EDT Inhaled Oxygen Concentration - - Weight - - Height - - Body Mass Index - - documented in this encounter Patient Instructions * Patient Instructions* Rafael Sidhu MD - 05/14/2011 3:25 PM EDT Keep knee bent for 24 hours, stay off of it. Rituxan infusion with premeds in the next month or so Return to see me in 3 months with rituxan at that visit as well documented in this encounter Progress Notes * Rafael Sidhu MD - 05/14/2011 3:22 PM EDT Marla Denton is a 55-year-old female seen in 5 month follow up for ongoing evaluation and management of seronegative rheumatoid arthritis. . Problem List: 1. Seronegative rheumatoid arthritis, erosive/destructive. [...] associated with a ZHANG afterward. Last rituxan 1.. 2. RLE edema Extensive/NEGATIVE workup (02/2007) Failed to respond to trials of enoxaparin, gabapentin, high dose steroids (12/2007) - Bilateral pulmonary emboli (CT scan) Coumadin therapy - ongoing. 3. Recurrent cellulitis - LE Followed by ID - Hibiclens wash weekly, in 2009. Much less at f/u in 8.10 4. DXA ([place] 2004: -1.3 SD low at spine; 1 [...] Orencia and has been maintained on Gabapentin 0569-6028 mg/d without any clear benefit. At last [...] vena cava clot seen. Other studies include: . 04/05 MRI of RLE No signs of [...] Rituxan were 03/21, 10/21, 07/23. 2) S/P C-1/2 surgery. 3) S/P left extensor tendon rupture and repair. 4) S/P left trigger thumb. 5) S/P right total shoulder replacement with chronic persistent pain requiring narcotics.6) Left thigh fasciitis/cellulitis 1998, etiology unknown,resolved ? associated with sulfasalazine. 7) S/P APARNA/BSO . 8) Persistent right knee popliteal cysts with pain, ACL ganglion cyst, considering arthroscopy with Dr. Montanez. 9) Right knee meniscal cyst - arthroscopy 04/25/01 showing lateral and medial meniscal tears. 9) Decline in bone density, but still normal DEXA 2001. DEXA 2005 in [place]:-1.3 SD low at spine, 1 SD at hip. Current medications: updated today Physical exam reveals a chronically ill-appearing overweight white female not Cushingoid walking with a cane due to left knee pain. .................Blood pressure 119/69, pulse 89, temperature 36.6 ??C (97.9 ??F), temperature source Oral, SpO2 96.00%.Her wrist and hand exam demonstrate mofrdy synovitis at the radiocarpal joints, the ulnocarpal joints with lessening of the bilateral 2nd/3rd mcp joints and right 5th mcp. Her left knee is swollen and very tender but there is no obvious effusion, but she is very tender in the popliteal fossa, which is somewhat distended. She has trouble extending and flexing the knee. She has fullness and tenderness in the popliteal fossa on the left Ankles okay. MTP joints splaying and tender. Impression/Plan 1. Seronegative RA with hypergammaglobulinemia on prednisone + Arava, parotid enlargement who is flaring nearly in feet and left knee following a response for 3-4 months after a single dose of ritiuximab, no longer complicated by bad ZHANG following the infusion. 2. 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 Plan: 1. Labs today 2. RTX infusion 1000 mg x 1 with repeat dose in 3 months, will premedicate with prednisone 60 mg the night before and give Ativan and Zofran following the infusion. If no response or unacceptable toxicity, will try TCZ 3. Inject left knee, if no better refer ortho Procedure Note: Risks, benefits explained. Usual prep, local. Medial approach, injected with Marcaine + Depo Medrol 80 mg x2. Much reduced pain following procedure. Instructed to rest with leg partially bent for 1 day and call if not better in a week. Level 4 f/u with procedure. Rafael Sidhu M.D. STaff Drip Pumper documented in this encounter Miscellaneous Notes * Miscellaneous - Abdon, Ticket Machine Operator - 06/19/2011 9:52 AM EDT documented in this encounter Plan of Treatment Not on file documented as of this encounter Procedures Procedure Name Priority Date/Time Associated Diagnosis Comments DIFFERENTIAL, AUTOMATED Routine 05/14/2011 3:55 PM EDT SEDIMENTATION RATE Routine 05/14/2011 3: 55 PM EDT Rheumatoid arthritis CBC (WITH DIFF) Routine 05/14/2011 3:55 PM EDT Rheumatoid arthritis CRP, CARDIAC RISK (HS CRP) Routine 05/14/2011 3:55 PM EDT Rheumatoid arthritis PROTEIN ELECTROPHORESIS, SERUM Routine 05/14/2011 3:55 PM EDT Rheumatoid arthritis HEPATIC FUNCTION PANEL Routine 1 3:55 PM EDT Rheumatoid arthritis BASIC METABOLIC PANEL Routine 05/14/2011 3:55 PM EDT Rheumatoid arthritis documented in this encounter Results * (ABNORMAL) REFLEX LAB-A-DIFF (05/14/2011 3:55 PM EDT) Neutrophil % 68.3 34.0 - 71.0 % CERNER MILLENNIUM Neutrophil Absolute 6.41(H) 1.50 - 6.30 x10(3)/mc L CERNER MILLENNIUM Lymph % 19.7 19.0 - 53.0 % CERNER MILLENNIUM Lymphocytes Abs 1.9 1.0 - 3.6 x10(3)/mc L CERNER MILLENNIUM Monocyte % 9.6 4.0 - 13.0 % CERNER MILLENNIUM Monocyte Abs 0.9 0.2 - 1.0 x10(3)/mc L CERNER MILLENNIUM Eos % 2.0 0.0 - 7.0 % CERNER MILLENNIUM Eosinophils Abs 0.2 0.0 - 0.5 x10(3)/mc L CERNER MILLENNIUM Basophil % 0.2 0.0 - 2.0 % CERNER MILLENNIUM Baso Absolute 0.0 0.0 - 0.2 x10(3)/mc L CERNER MILLENNIUM Immature Gran % 0.20 0.00 - 0.66 % CERNER MILLENNIUM Comment: Immature granulocytes(IG's)percentage and absolute count will include metamyelocytes, myelocytes, and promyelocytes. Blood smears from CBCs yielding IG's will be scanned manually for concordance. If this scan disagrees with the automated IG or if promyelocytes are noted, a manual differential will be performed. Immature Gran Absolute 0.02 0.00 - 0.05 x10(3)/mc L CERNER MILLENNIUM Blood specimen (specimen) 05/14/2011 3:55 PM EDT 05/14/2011 4:11 PM EDT Rafael Sidhu MD HEMATOLOGY ORDERABLE S CERNER MAYLINENNIUM * (ABNORMAL) Protein electrophoresis, serum (05/14/2011 3:55 PM EDT) Total Prot Electrophoresis 7.6 6.1 - 8.0 gm/dL CERNER MILLENNIUM Albumin Electrophoresis 4.41 3.60 - 6.00 gm/dL CERNER MILLENNIUM Alpha 1 Globulin 0.22 0.10 - 0.30 gm/dL CERNER MILLENNIUM Alpha 2 Globulin 0.78 0.40 - 0.90 gm/dL CERNER MILLENNIUM Beta Globulin 0.84 0.50 - 1.00 gm/dL CERNER MILLENNIUM Gamma Globulin 1.35(H) 0.50 - 1.30 gm/dL CERNER MILLENNIUM M1 Band None Detected None Detected gm/dL CERNER MILLENNIUM Scan See Note CERNER MILLENNIUM Comment:Please see scanned r eport in Chart Review under the Non-DH Laboratory Heading. Blood specimen (specimen) 05/14/2011 3:55 PM EDT 05/14/2011 4:10 PM EDT Rafael Sidhu MD [facility]STRY ORDERABLES [facility] * CBC (with Diff) (05/14/2011 3:55 PM EDT) White Blood Cell 9.4 4.0 - 10.0 x10(3)/mcL CERNER MILLENNIUM Red Blood Cell 4.29 3.93 - 5.22 x10(6)/mcL CERNER MILLENNIUM Hemoglobin 13.3 11.2 - 15.7 gm/dL CERNER MILLENNIUM Hematocrit 39.9 34.0 - 45.0 % CERNER MILLENNIUM Mean Cell Volume 93.0 79.0 - 94.0 fL CERNER MILLENNIUM Mean Cell Hemoglobin 31.0 26.6 - 32.2 pg CERNER MILLENNIUM Mean Cell Hemoglobin Concentration 33.3 32.0 - 36.5 gm/dL CERNER MILLENNIUM Platelet 333 145 - 370 x10(3)/mcL CERNER MILLENNIUM RDW Standard Deviation 44.4 35.0 - 46.0 fL CERNER MILLENNIUM RDW coefficient of variation 13.1 10.9 - 14.4 % CERNER MILLENNIUM Mean Platelet Volume 10.0 9.0 - 12.0 fL CERNER MILLENNIUM Blood specimen (specimen) 05/14/2011 3:55 PM EDT 05/14/2011 4:11 PM EDT Rafael Sidhu MD HEMATOLOGY ORDERABLE S CERNER MILLENNIUM * Sedimentation rate (05/14/2011 3:55 PM EDT) Sedimentation Rate Automated 18 0 - 20 mm/hr CERNER MILLENNIUM Blood specimen (specimen) 05/14/2011 3:55 PM EDT 05/14/2011 4:11 PM EDT Rafael Sidhu MD HEMATOLOGY ORDERABLE S Performing Organization Address [facility] Co de Phone Number CERNER MILLENNIUM * Basic Metabolic Panel (non-fasting) (05/14/2011 3:55 PM EDT) Glucose 99 60 - 199 mg/dL CERNER MILLENNIUM Comment:Diabetes: >=200 mg/d L plus symptoms Blood Urea Nitrogen 12 8 - 18 mg/dL CERNER MILLENNIUM Creatinine 0.74 0.70 - 1.20 mg/dL CERNER MILLENNIUM Sodium 141 135 - 145 mmol/L CERNER MILLENNIUM Potassium 4.0 3.5 - 5.0 mmol/L CERNER MILLENNIUM Comment: Please note: ??Patients with WBC >100,000 may have falsely elevated Potassium levels. ??For accurate Potassium quantification in these patients send serum separator tube (gold top) for subsequent determinations. ??Contact the Clinical Chemistry Laboratory if there are any questions. Chloride 101 98 - 107 mmol/L CERNER MILLENNIUM Carbon Dioxide 28 22 - 31 mmol/L CERNER MILLENNIUM Anion Gap 12 5 - 15 mmol/L CERNER MILLENNIUM Calcium 10.0 8.5 - 10.5 mg/dL CERNER MILLENNIUM Est Glomerular Filtration Rate >60 >=60 CERNER MILLENNIUM Comment: The National Kidney Disease Education Program (NKDEP) has recommended all laboratories report estimated GFR (eGFR) along with plasma creatinine measurements to assist you with recognition of early kidney disease. Caveats: ??Plasma creatinine should be at steady-state (unchanged within the past week). For patients multiply eGFR by 1.2.MDRD equation has not been validated for pediatric patients and is only valid for patients with age >= 18 years. At present, NKDEP does NOT recommend using the MDRD equation for drug dosing purposes and pharmacists should continue to use their current dosing methods. In addition, numerical eGFR values greater than 60 ml/min/1.73 square meters should be treated as > 60, and not an exact number due to greater inaccuracies at these higher values. Per NKDEP, they classify normal renal function as any GFR >60ml/min/1.73 square meters; chronic kidney disease when GFR <60, and renal failure when GFR <15. ??This calculation may not be valid for patients with atypical muscle mass (very lean or obese), acute renal failure, and in patients with diabetic kidney disease. References: http://nkdep.nih.gov/resources/NKDEP_Suggestn4Labs_0606_508.pdf http://www.kidney.org/professionals/kls/pdf/faq_gfr.pdf Blood specimen (specimen) 05/14/2011 3:55 PM EDT 05/14/2011 4:11 PM EDT Rafael Sidhu MD CHEMISTRY ORDERABLES [facility] * High Sensitivity CRP (05/14/2011 3:55 PM EDT) [facility] C-Reactive Protein High Sensitivity 4.4 mg/L [facility] Comment: Interpretations: 1) For cardiac risk assessment, [...] prevention. ??Circulation 2003; [phone] Blood specimen (specimen) 05/14/2011 3:55 PM EDT 05/14/2011 4:11 PM EDT Rafael Sidhu MD CHEMISTRY ORDERABLES Performing Organization Address City/State/[facility] Co de Phone Number CERNER MILLENNIUM * (ABNORMAL) Hepatic Function Panel (05/14/2011 3:55 PM EDT) Pathologist [facility] Protein, Total 7.9 6.4 - 8.3 gm/dL CERNER MILLENNIUM Albumin 4.3 3.2 - 5.2 gm/dL CERNER MILLENNIUM Aspartate Aminotransferase 25 0 - 30 unit/L CERNER MILLENNIUM Alanine Aminotransferase 24 0 - 30 unit/L CERNER MILLENNIUM Alkaline Phosphatase 122(H) 40 - 104 unit/L CERNER MILLENNIUM Bilirubin, Total 0.4 0.2 - 1.3 mg/dL CERNER MILLENNIUM Bilirubin, Direct 0.1 0.0 - 0.3 mg/dL CERNER MILLENNIUM Blood specimen (specimen) 05/14/2011 3:55 PM EDT 05/14/2011 4:11 PM EDT Rafael Sidhu MD CHEMISTRY ORDERABLES Performing Organization Address City/[facility] Co de Phone Number CERNER MILLENNIUM documented in this encounter Visit Diagnoses Diagnosis Rheumatoid arthritis(714.0)- Primary Rheumatoid arthritis documented in this encounter Care Teams Compliance Analyst Relationship Specialty Start Date End Date Curt Cassidy MD [address], [facility] [address] [place] [address] PCP - General 10/10/10 documented as of this encounter
[2024-10-30 11:42] LABS: Abs Immature Grans 0.03 10^3/uL (0.0-0.06); Absolute Basophil Count 0.06 10^3/uL (0.0-0.2); Absolute Lymphocyte Count 1.66 10^3/uL (1.2-3.4); Absolute Monocyte Count 1.19 10^3/uL (0.1-0.8); Absolute Neutrophil Count 5.95 10^3/uL (1.2-6.7); Basophils % 0.7 %; Eosinophils % 2.2 %; HCT 37.3 % (36.0-46.0); HGB 12.1 g/dL (11.2-15.7); Immature Grans % 0.3 %; Lymphocytes % 18.3 %; MCH 30.8 pg (27.0-33.0); MCHC 32.4 % (32.0-36.0); MCV 95 fL (80-95); MPV 9.1 fL (8.0-11.0); Monocytes % 13.1 %; Neutrophils % 65.4 %; Platelet Count 314 10^3/uL (130-400); RBC 3.93 10^6/uL (3.93-5.22); RDW 12.5 % (11.7-14.6); RDW-SD 43.7 fL; WBC 9.09 10^3/uL (4.4-10.8)
[2024-10-30 12:07] LABS: ALT 73 U/L (14-59); AST 45 U/L (15-37); Albumin 3.8 g/dL (3.4-5.0); Alkaline Phosphatase 134 U/L (46-116); Anion Gap 7.9 mmol/L (3-11); BUN 14 mg/dL (7-18); Bilirubin, Total 0.39 mg/dL (0.2-1.0); CO2 27.1 mmol/L (21.0-32.0); CREATININE 1.2 mg/dL (0.55-1.02); Calcium 9.2 mg/dL (8.5-10.1); Chloride 104 mmol/L (98-107); Estimated GFR 49.61 (mL/min/1.73m2); Glucose 94 mg/dL (74-106); Potassium 4.4 mmol/L (3.5-5.1); Sodium 139 mmol/L (136-145); TSH 0.36 uIU/mL (0.36-3.74)
== END 2024-10-30 01:23 | disposition home or self-care (01) ==
LOC: LBO 01:22
PROVIDERS: PCP Family Medicine; Visit Provider Family Medicine
DX: I10 Essential (primary) hypertension (principal); D72.829 Elevated white blood cell count, unspecified
CPT/HCPCS: 36415; 80053; 83516; 84443; 85025

== ENCOUNTER 2025-01-14 02:11 | Outpatient (CLI) | payer MEDICARE, MEDICAID, SELFPAY ==
--- NOTE | 2025-01-14 | DI.DEXA_ITS ---
Exam(s) XR DEXA BONE DENSITY W/WO WILMAN EXAM: XR DEXA BONE DENSITY W/WO WILMAN CLINICAL HISTORY: Asymptomatic menopause, Z78.0; screening for osteoporosis, Z13.820 TECHNIQUE: [employer] Horizon C densitometer analysis of left hip, lumbar spine and left forearm. Lat eral survey image of the thoracic and lumbar spine. COMPARISON: DEXA from 05/22/2011 CR XR LUMBAR SPINE COMPLETE from 01/06/2020 CR XR CHEST 2V PA LATERAL from 02/07/2023 FINDINGS: Lateral view of the thoracic and lumbar spine shows no evidence of compression fractures. Bone mineral density measurements of the lumbar spine correspond to a total T-score of -1.2, in the osteopenic range. This represents a 3.9 percent decrease from 07/10. Bone mineral density measurements of the left hip correspond to a total T-score of -1.0. This repre sents a 12.9 Percent decrease from prior exam. The femoral neck T-score is -1.8, in the osteopenic range.. Theleft forearm bone mineral density measurements correspond to a T-score of the distal 3rd of -3.2, in the osteoporotic range. The forearm was not abduct the previously. IMPRESSION: Osteopenia of the spine and hip. Osteoporosis of the forearm.
--- NOTE | 2025-01-14 11:13 | DI.MAMMO_ITS ---
Exam(s) MG MAMMO SCREENING 60 MIN DUR EXAM: MG MAMMO SCREENING 60 MIN DUR CLINICAL HISTORY: Screening, Z12.31 TECHNIQUE: Mammograms were interpreted according to the usual protocol including computer analysis w [email or web address] CAD system, tomosynthesis and C-view imaging. COMPARISON: 2016 through 2022 FINDINGS: The breasts are composed of heterogeneously dense fibroglandular densities, Breast Density category C . No suspicious masses or suspicious microcalcifications are seen. No skin thickening or abnormal axillary lymph nodes are seen. There has been no significant change from prior exams. IMPRESSION: BI-RADS Category 1, Negative mammogram. Yearly screening mammography is recommended. Breast Density Category C, heterogeneously Dense. The mammogram demonstrates the patient's breast tissue is dense. Dense breast tissue is very common a nd is not abnormal but dense breast tissue can make it harder to find cancer on a mammogram. Also, de nse breast tissue may increase breast cancer risk. This information about the result of the mammogram report was provided to the patient to raise their awareness. Use this report when you speak with the patient about their risks for breast cancer, which includes their family history. At that time, you may recommend additional screening tests (Ultrasound or MRI) as they might be useful based on their r isk. A negative radiographic report should not delay biopsy if a dominant or clinically suspicious mass is present. Up to ten percent of cancers are not identified on mammography. A negative report may reinforce clinical impression. Adenosis and dense breasts may obscure an underlying neoplasm. False positive reports average 6 to 10%.
== END 2025-01-14 02:31 ==
LOC: DI 02:11
PROVIDERS: PCP Family Medicine; Visit Provider Family Medicine
DX: Z78.0 Asymptomatic menopausal state (principal); Z12.31 Encounter for screening mammogram for malignant neoplasm of breast; Z13.820 Encounter for screening for osteoporosis; M85.89 Other specified disorders of bone density and structure, multiple sites
CPT/HCPCS: 77063; 77067; 77080

== ENCOUNTER 2025-07-26 17:54 | Outpatient (CLI) | payer MEDICARE, MEDICAID, SELFPAY ==
[2025-07-26 13:02] LABS: Abs Immature Grans 0.02 10^3/uL (0.0-0.06); HCT 33.0 % (36.0-46.0); HGB 11.0 g/dL (11.2-15.7); Immature Grans % 0.2 %; MCH 32.5 pg (27.0-33.0); MCHC 33.3 % (32.0-36.0); MCV 98 fL (80-95); MPV 8.7 fL (8.0-11.0); Platelet Count 326 10^3/uL (130-400); RBC 3.38 10^6/uL (3.93-5.22); RDW 12.4 % (11.7-14.6); RDW-SD 44.2 fL; WBC 9.02 10^3/uL (4.4-10.8)
[2025-07-26 13:59] LABS: ALT 29 U/L (14-59); AST 26 U/L (15-37); Albumin 3.9 g/dL (3.4-5.0); Alkaline Phosphatase 100 U/L (46-116); Anion Gap 7.4 mmol/L (3-11); BUN 16 mg/dL (7-18); Bilirubin, Total 0.3 mg/dL (0.2-1.0); CO2 29.6 mmol/L (21.0-32.0); Calcium 9.3 mg/dL (8.5-10.1); Chloride 100 mmol/L (98-107); Estimated GFR 49.61 (mL/min/1.73m2); Glucose 67 mg/dL (74-106); Potassium 3.8 mmol/L (3.5-5.1); Sodium 137 mmol/L (136-145); TSH 0.77 uIU/mL (0.36-3.74); Total Protein 8.4 g/dL (6.4-8.2)
== END 2025-07-26 17:55 | disposition home or self-care (01) ==
LOC: LBO 17:54
PROVIDERS: PCP Family Medicine; Visit Provider Family Medicine
DX: D72.829 Elevated white blood cell count, unspecified (principal); I10 Essential (primary) hypertension
CPT/HCPCS: 36415; 80053; 83516; 84443; 85025

== ENCOUNTER 2025-09-30 02:08 | Outpatient (CLI) | payer MEDICARE, MEDICAID, SELFPAY ==
[2025-09-30 10:22] LABS: Abs Immature Grans 0.03 10^3/uL (0.0-0.06); HCT 34.4 % (36.0-46.0); HGB 11.1 g/dL (11.2-15.7); Immature Grans % 0.4 %; MCH 31.9 pg (27.0-33.0); MCHC 32.3 % (32.0-36.0); MCV 99 fL (80-95); MPV 9.1 fL (8.0-11.0); Platelet Count 290 10^3/uL (130-400); RBC 3.48 10^6/uL (3.93-5.22); RDW 12.2 % (11.7-14.6); RDW-SD 44.3 fL; WBC 8.39 10^3/uL (4.4-10.8)
[2025-09-30 10:38] LABS: ESR 28 mm/hr (0-30)
[2025-09-30 10:43] LABS: ALT 26 U/L (10-49); AST 24 U/L (<34); Albumin 4.3 g/dL (3.4-5.0); Alkaline Phosphatase 97 U/L (46-116); Anion Gap 9.9 mmol/L (3-11); BUN 19 mg/dL (9-23); Bilirubin, Total 0.40 mg/dL (0.2-1.2); CO2 27.1 mmol/L (20.0-31.0); Calcium 9.3 mg/dL (8.3-10.6); Chloride 103 mmol/L (98-107); Glucose 113 mg/dL (74-106); Potassium 3.7 mmol/L (3.5-5.1); Sodium 140 mmol/L (136-145); Total Protein 7.5 g/dL (5.7-8.2)
[2025-09-30 10:49] LABS: C-Reactive Protein < 0.50 mg/dL (<=0.50)
[2025-09-30 16:27] LABS: Cholesterol 142 mg/dL (<200); HDL Cholesterol 66 mg/dL (>40)
== END 2025-09-30 02:09 | disposition home or self-care (01) ==
PROVIDERS: PCP Family Medicine; Visit Provider Nurse Practitioner
DX: Z13.6 Encounter for screening for cardiovascular disorders (principal); M06.9 Rheumatoid arthritis, unspecified
CPT/HCPCS: 36415; 80053; 80061; 85652; 85025; 86140